=== PATIENT | female | born 1975 | race Caucasian/White ===

== ENCOUNTER → 2018-02-15 | Outpatient (CLI) | payer OTHER ==
[2018-02-15 20:21] LABS: BASO # 0.2 10^3/uL (0.0-0.2); BASO % 1.7 % (0.0-1.0); EOS # 0.2 10^3/uL (0.0-0.50); EOS % 2.2 % (0.0-3.0); HEMATOCRIT 35.9 % (36.0-47.0); HEMOGLOBIN 10.9 g/dl (12.0-15.5); IMMATURE GRANULOCYTE % 0.3 % (0-3.0); LYMPH # 2.5 10^3/uL (1.5-4.5); LYMPH % 23.8 % (24.0-44.0); MEAN CORPUSCULAR HEMOGLOBIN 25.8 pg (27.0-33.0); MEAN CORPUSCULAR HGB CONC 30.4 g/dl (32.0-36.5); MEAN CORPUSCULAR VOLUME 85.1 fl (80.0-96.0); MONO # 0.7 10^3/uL (0.0-0.8); MONO % 6.8 % (0.0-5.0); NEUTROPHILS # 6.9 10^3/uL (1.8-7.7); NEUTROPHILS % 65.2 % (36.0-66.0); PLATELET COUNT, AUTOMATED 316 10^3/uL (150-450); RED BLOOD COUNT 4.22 10^6/uL (4.00-5.40); RED CELL DISTRIBUTION WIDTH 16.2 % (11.5-14.5); WHITE BLOOD COUNT 10.5 10^3/uL (4.0-10.0)
[2018-02-15 20:59] LABS: ALBUMIN 3.8 GM/DL (3.2-5.2); ALBUMIN/GLOBULIN RATIO 0.84 (1.00-1.93); ALKALINE PHOSPHATASE 92 U/L (45-117); ALT/SGPT 35 U/L (12-78); ANION GAP 5 MEQ/L (8-16); AST/SGOT 25 U/L (7-37); BILIRUBIN,TOTAL 0.2 MG/DL (0.2-1.0); BLOOD UREA NITROGEN 14 MG/DL (7-18); CALCIUM LEVEL 9.1 MG/DL (8.5-10.1); CARBON DIOXIDE LEVEL 29 MEQ/L (21-32); CHLORIDE LEVEL 102 MEQ/L (98-107); CREATININE FOR GFR 0.78 MG/DL (0.55-1.30); GLOMERULAR FILTRATION RATE > 60.0 (>58); GLUCOSE, FASTING 254 MG/DL (70-100); POTASSIUM SERUM 4.9 MEQ/L (3.5-5.1); SODIUM LEVEL 136 MEQ/L (136-145); TOTAL PROTEIN 8.3 GM/DL (6.4-8.2)
== END ==
LOC: M WUC 16:14
DX: E10.9 Type 1 diabetes mellitus without complications (principal)
CPT/HCPCS: 80053

== ENCOUNTER 2018-07-12 14:48 | Emergency (ER) | payer OTHER | END 2018-07-12 16:43 | disposition home or self-care (01) | LOC: M ED 14:48 | DX: Z76.0 Encounter for issue of repeat prescription (principal); E11.9 Type 2 diabetes mellitus without complications; F33.9 Major depressive disorder, recurrent, unspecified; F17.200 Nicotine dependence, unspecified, uncomplicated; Z79.4 Long term (current) use of insulin; Z79.899 Other long term (current) drug therapy | CPT/HCPCS: 99282 ==

== ENCOUNTER 2018-08-12 16:21 | Emergency (ER) | payer OTHER ==
[2018-08-12 17:21] LABS: BASO # 0.1 10^3/uL (0.0-0.2); BASO % 0.9 % (0.0-1.0); EOS # 0.1 10^3/uL (0.0-0.50); EOS % 0.5 % (0.0-3.0); HEMATOCRIT 32.1 % (36.0-47.0); IMMATURE GRANULOCYTE % 0.3 % (0-3.0); LYMPH # 1.3 10^3/uL (1.5-4.5); MEAN CORPUSCULAR HEMOGLOBIN 25.4 pg (27.0-33.0); MEAN CORPUSCULAR HGB CONC 31.2 g/dl (32.0-36.5); MEAN CORPUSCULAR VOLUME 81.5 fl (80.0-96.0); MONO # 0.5 10^3/uL (0.0-0.8); MONO % 4.5 % (0.0-5.0); NEUTROPHILS # 9.7 10^3/uL (1.8-7.7); NEUTROPHILS % 82.8 % (36.0-66.0); PLATELET COUNT, AUTOMATED 343 10^3/uL (150-450); RED BLOOD COUNT 3.94 10^6/uL (4.00-5.40); RED CELL DISTRIBUTION WIDTH 15.8 % (11.5-14.5); WHITE BLOOD COUNT 11.7 10^3/uL (4.0-10.0)
[2018-08-12 17:39] LABS: ANION GAP 8 MEQ/L (8-16); BLOOD UREA NITROGEN 14 MG/DL (7-18); CALCIUM LEVEL 8.7 MG/DL (8.5-10.1); CARBON DIOXIDE LEVEL 26 MEQ/L (21-32); CHLORIDE LEVEL 103 MEQ/L (98-107); CREATININE FOR GFR 0.83 MG/DL (0.55-1.30); GLOMERULAR FILTRATION RATE > 60.0 (>58); GLUCOSE, FASTING 257 MG/DL (70-100); POTASSIUM SERUM 4.1 MEQ/L (3.5-5.1); SODIUM LEVEL 137 MEQ/L (136-145)
[2018-08-12] MEDS: MORPHINE 4 MG/ML 1ML VIAL/SYRINGE (J2270) IV (19:03)
[2018-08-12] MEDS: KETOROLAC 30 MG/ML VIAL (J1885) IV (19:56)
[2018-08-12] MEDS: OXYCODONE/APAP 5MG/325MG(BULK FOR ED) 1 TABLET PO (20:30)
== END 2018-08-12 20:52 | disposition home or self-care (01) ==
LOC: M ED 16:21
DX: M54.5 Low back pain (principal); M47.816 Spondylosis without myelopathy or radiculopathy, lumbar region; E11.9 Type 2 diabetes mellitus without complications; Z79.899 Other long term (current) drug therapy; Z79.4 Long term (current) use of insulin
CPT/HCPCS: J2270

== ENCOUNTER → 2018-08-13 | Outpatient (REF) | payer OTHER | LOC: M LAB REF 09:56 | DX: N39.0 Urinary tract infection, site not specified (principal) | CPT/HCPCS: 87088; 87186 ==

== ENCOUNTER 2018-08-17 16:27 | Emergency (ER) | payer OTHER ==
[2018-08-17] MEDS: KETOROLAC 30 MG/ML VIAL (J1885) IV (18:28)
[2018-08-17] MEDS: LORazepam 2 MG/ML VIAL (J2060) IV (18:28)
[2018-08-17] MEDS: LIDOCAINE 5% (LIDODERM) PATCH TD (18:28)
[2018-08-17 18:34] LABS: BASO # 0.1 10^3/uL (0.0-0.2); EOS # 0.2 10^3/uL (0.0-0.50); EOS % 1.3 % (0.0-3.0); HEMATOCRIT 34.2 % (36.0-47.0); HEMOGLOBIN 10.5 g/dl (12.0-15.5); IMMATURE GRANULOCYTE % 0.4 % (0-3.0); LYMPH # 1.7 10^3/uL (1.5-4.5); LYMPH % 15.2 % (24.0-44.0); MEAN CORPUSCULAR HEMOGLOBIN 25.1 pg (27.0-33.0); MEAN CORPUSCULAR HGB CONC 30.7 g/dl (32.0-36.5); MEAN CORPUSCULAR VOLUME 81.8 fl (80.0-96.0); MONO # 0.7 10^3/uL (0.0-0.8); MONO % 6.2 % (0.0-5.0); NEUTROPHILS # 8.5 10^3/uL (1.8-7.7); NEUTROPHILS % 75.9 % (36.0-66.0); PLATELET COUNT, AUTOMATED 300 10^3/uL (150-450); RED BLOOD COUNT 4.18 10^6/uL (4.00-5.40); RED CELL DISTRIBUTION WIDTH 16.1 % (11.5-14.5); WHITE BLOOD COUNT 11.2 10^3/uL (4.0-10.0)
[2018-08-17 19:10] LABS: ANION GAP 11 MEQ/L (8-16); BLOOD UREA NITROGEN 17 MG/DL (7-18); C REACTIVE PROTEIN QUANTITATIV < 0.30 MG/DL (0.00-0.30); CARBON DIOXIDE LEVEL 27 MEQ/L (21-32); CHLORIDE LEVEL 100 MEQ/L (98-107); CREATININE FOR GFR 0.77 MG/DL (0.55-1.30); GLOMERULAR FILTRATION RATE > 60.0 (>58); GLUCOSE, FASTING 316 MG/DL (70-100); POTASSIUM SERUM 4.1 MEQ/L (3.5-5.1); SODIUM LEVEL 138 MEQ/L (136-145)
[2018-08-17 20:34] LABS: ERYTHROCYTE SEDIMENTATION RATE 39 mm/hr (0-20)
[2018-08-17] MEDS: **NOTE PATIENT COMMENT** MISC XX (21:00)
[2018-08-17 23:14] LABS: BEDSIDE GLUCOSE 298 MG/DL (70-105)
[2018-08-17] MEDS ORDERED: MORPHINE 2 MG/ML 1ML SYRINGE (J2270) As Ordered (23:20)
[2018-08-17] MEDS: HumaLOG INSULIN (NovoLOG) PER UNIT SC (23:23)
[2018-08-17] MEDS: MORPHINE 2 MG/ML 1ML SYRINGE (J2270) IM (23:23)
[2018-08-18] MEDS: MORPHINE 4 MG/ML 1ML VIAL/SYRINGE (J2270) IV (00:24)
[2018-08-18] MEDS: NORCO 5/325MG TABLET (BULK FOR ED) PO (02:15)
== END 2018-08-18 02:25 | disposition home or self-care (01) ==
LOC: M ED 08-18 02:25
DX: M51.36 Other intervertebral disc degeneration, lumbar region (principal); M54.16 Radiculopathy, lumbar region; E11.9 Type 2 diabetes mellitus without complications; Z79.899 Other long term (current) drug therapy; Z79.4 Long term (current) use of insulin; F17.210 Nicotine dependence, cigarettes, uncomplicated
CPT/HCPCS: J2270

== ENCOUNTER 2018-08-20 10:55 | Emergency (ER) | payer OTHER ==
[2018-08-20] MEDS: MORPHINE 10 MG/ML 1ML VIAL (J2270) IM (12:17)
== END 2018-08-20 12:58 | disposition home or self-care (01) ==
LOC: M ED 10:55
DX: M51.36 Other intervertebral disc degeneration, lumbar region (principal); M54.16 Radiculopathy, lumbar region; E11.9 Type 2 diabetes mellitus without complications; Z79.899 Other long term (current) drug therapy; Z79.4 Long term (current) use of insulin; F17.210 Nicotine dependence, cigarettes, uncomplicated
CPT/HCPCS: J2270

== ENCOUNTER 2018-08-23 17:59 | Emergency (ER) | payer OTHER ==
[2018-08-23] MEDS: diazePAM 10 MG TAB PO (18:30)
[2018-08-23] MEDS: MORPHINE 10 MG/ML 1ML VIAL (J2270) IM (19:10)
== END 2018-08-23 20:17 | disposition home or self-care (01) ==
LOC: M ED 17:59
DX: M51.37 Other intervertebral disc degeneration, lumbosacral region (principal); M54.17 Radiculopathy, lumbosacral region; E11.9 Type 2 diabetes mellitus without complications; Z79.899 Other long term (current) drug therapy; Z79.4 Long term (current) use of insulin
CPT/HCPCS: J2270

== ENCOUNTER → 2019-02-06 | Outpatient (REF) | payer OTHER ==
[~2019-02-06] MED LIST: /INSUREG; AMBI10TA; AMBI10TA OR; AMBI5TAB OR; BUPR10TASR PO; CYCL5TAB PO; INSU; INSULANT SC; INSULIN PUMP SQ; LISI5TAB OR; MACR100C42 PO; MAGN500T2 OR; MOBI4TAB PO; NEUR300C PO; NICO21DI4; NICO21DI4 TD; NOVOLOG100 MG/ML SC; OXYC1TAB23 PO; PERC5TAB12 PO; PROZ20CA; PROZ20CA OR; PROZ40CA OR; REME15TA PO; TOUJ1.2I SC; TOUJ1.2I SQ; TYLENOL ES; VALI5TAB PO; insulin
[2019-02-06 18:26] LABS: APPEARANCE, URINE CLEAR (CLEAR); BACTERIA, URINE AUTO NEGATIVE (NEGATIVE); BILIRUBIN, URINE AUTO NEGATIVE (NEGATIVE); BLOOD, URINE BLOOD NEGATIVE (NEGATIVE); COLOR, URINE STRAW (YELLOW); GLUCOSE, URINE (UA) AUTO 3+ mg/dL (NEGATIVE); KETONE, URINE AUTO NEGATIVE (NEGATIVE); LEUKOCYTE ESTERASE, URINE AUTO NEGATIVE (NEGATIVE); NITRITE, URINE AUTO NEGATIVE (NEGATIVE); PROTEIN, URINE AUTO NEGATIVE (NEGATIVE); RBC, URINE AUTO 2 /HPF (0-3); SPECIFIC GRAVITY URINE AUTO 1.018 (1.002-1.035); SQUAMOUS EPITHELIAL CELL UR AU 1 /HPF (0-6); UROBILINOGEN, URINE AUTO 0.2 mg/dL (0.0-2.0); WBC, URINE AUTO 0 /HPF (0-3)
== END ==
LOC: M LAB REF 17:47
PROVIDERS: ATTEND Physician Assistant
DX: Z01.818 Encounter for other preprocedural examination (principal)

== ENCOUNTER 2019-12-24 16:09 | Emergency (ER) | payer OTHER ==
[~2019-12-24] VITALS: Ht 162.6 cm; Wt 70.1 kg
[~2019-12-24 16:09] MED LIST changes: -/INSUREG; +NOVO1INJ2
[2019-12-24] MEDS ORDERED: NORCO, ANEXSIA 5/325MG TABLET (HYDROcodone/ACETAMINOPHEN) PO ONE (19:45)
[2019-12-24] MEDS ORDERED: LIDOCAINE 4% CREAM 5GM (LMX4) TOP ONE (19:45)
[2019-12-24 19:48] VITALS: BP 181/84
[2019-12-24] MEDS ORDERED: NORC1TAB7 PO (19:49)
[2019-12-24] MEDS ORDERED: ANEC4CRE3 TOP (19:49)
[2019-12-24] MEDS ORDERED: BIOF4GEL4 TOP (19:49)
--- NOTE | 2019-12-24 20:20 | REP ---
LEFT SHOULDER, THREE VIEWS: There is no evidence of an acute fracture, dislocation or intrinsic bone disease. IMPRESSION: No fracture or dislocation. Electronically Signed by Giuliano Garcia MD 12/25/2019 05:04 P
== END 2019-12-24 20:02 | disposition home or self-care (01) ==
LOC: M ED 16:09
DX: S49.92XA Unspecified injury of left shoulder and upper arm, initial encounter (principal); M25.512 Pain in left shoulder; W01.10XA Fall on same level from slipping, tripping and stumbling with subsequent striking against unspecified object, initial encounter; Y92.410 Unspecified street and highway as the place of occurrence of the external cause; E11.9 Type 2 diabetes mellitus without complications; M54.9 Dorsalgia, unspecified; Z79.899 Other long term (current) drug therapy; Z79.4 Long term (current) use of insulin

== ENCOUNTER 2020-02-28 00:17 | Emergency (ER) | payer OTHER ==
[~2020-02-28] VITALS: Ht 162.6 cm; Wt 68.2 kg
[2020-02-28 00:17] VITALS: BP 157/71
[~2020-02-28 00:17] MED LIST changes: +ANEC4CRE3 TOP; +BIOF4GEL4 TOP; +NORC1TAB7 PO
[2020-02-28] MEDS ORDERED: METH750T2 PO (00:23)
[2020-02-28] MEDS ORDERED: LIDOCAINE 5% (LIDODERM) PATCH TD ONE (00:45)
[2020-02-28] MEDS ORDERED: KETOROLAC 60 MG/2 ML VIAL (J1885) IM ONE (00:45)
[2020-02-28] MEDS ORDERED: LIDO5DIS41 TOP (01:05)
[2020-02-28] MEDS ORDERED: **NOTE PATIENT COMMENT** MISC XX SCH (21:00)
== END 2020-02-28 01:09 | disposition home or self-care (01) ==
LOC: M ED 00:17
DX: M54.5 Low back pain (principal); G89.29 Other chronic pain; E10.9 Type 1 diabetes mellitus without complications; F17.200 Nicotine dependence, unspecified, uncomplicated; Z79.899 Other long term (current) drug therapy
CPT/HCPCS: 96372; 99282; J1885

== ENCOUNTER → 2020-03-16 | Outpatient (REF) | payer OTHER ==
[~2020-03-16] MED LIST changes: +LIDO5DIS41 TOP; +METH750T2 PO
[2020-03-16 15:55] LABS: CREATININE, URINE 68.2 MG/DL
== END ==
LOC: M LAB REF 14:54
PROVIDERS: ATTEND Nurse Practitioner Family
DX: E10.65 Type 1 diabetes mellitus with hyperglycemia (principal)

== ENCOUNTER 2020-04-28 23:24 | Emergency (ER) | payer OTHER ==
[~2020-04-28] VITALS: Ht 162.6 cm; Wt 68.2 kg
[2020-04-29 00:31] LABS: BASO # 0.1 10^3/uL (0.0-0.2); BASO % 1.9 % (0.0-1.0); EOS # 0.1 10^3/uL (0.0-0.5); HEMATOCRIT 32.1 % (36.0-47.0); HEMOGLOBIN 9.3 g/dl (12.0-15.5); LYMPH # 1.5 10^3/uL (1.5-5.0); LYMPH % 21.7 % (24.0-44.0); MEAN CORPUSCULAR HEMOGLOBIN 23.4 pg (27.0-33.0); MEAN CORPUSCULAR VOLUME 80.7 fl (80.0-96.0); MONO # 0.5 10^3/uL (0.0-0.8); MONO % 6.9 % (0.0-5.0); NEUTROPHILS # 4.6 10^3/uL (1.5-8.5); NEUTROPHILS % 67.4 % (36.0-66.0); PLATELET COUNT, AUTOMATED 394 10^3/uL (150-450); RED BLOOD COUNT 3.98 10^6/uL (4.00-5.40); WHITE BLOOD COUNT 6.9 10^3/uL (4.0-10.0)
[2020-04-29 00:59] LABS: ALBUMIN 3.2 GM/DL (3.2-5.2); ALT/SGPT 31 U/L (12-78); BILIRUBIN,DIRECT < 0.1 MG/DL (0.0-0.2); BILIRUBIN,TOTAL 0.1 MG/DL (0.2-1.0); BLOOD UREA NITROGEN 10 MG/DL (7-18); CALCIUM LEVEL 8.6 MG/DL (8.5-10.1); CARBON DIOXIDE LEVEL 24 MEQ/L (21-32); CHLORIDE LEVEL 110 MEQ/L (98-107); CREATININE FOR GFR 0.95 MG/DL (0.55-1.30); FREE T4 0.75 NG/DL (0.76-1.46); GLOMERULAR FILTRATION RATE > 60.0 (>58); GLUCOSE, FASTING 62 MG/DL (70-100); POTASSIUM SERUM 3.8 MEQ/L (3.5-5.1); SODIUM LEVEL 141 MEQ/L (136-145); TOTAL PROTEIN 7.9 GM/DL (6.4-8.2)
[2020-04-29] MEDS ORDERED: DEXTROSE 50% 50 ML SYRINGE IV STA (01:13)
[2020-04-29] MEDS ORDERED: DEXTROSE 50% 50 ML VIAL As Ordered ONE (01:14)
[2020-04-29 05:00] VITALS: BP 165/77
--- NOTE | 2020-04-29 07:38 | ECGEPIP ---
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
--- NOTE | 2020-04-29 09:49 | REP ---
CHEST, SINGLE VIEW: There is no evidence of acute infiltrate. No pleural effusion is seen. The heart is normal in size. The mediastinal silhouette is unremarkable. The visualized osseous structures are intact. IMPRESSION: No acute pulmonary disease. Electronically Signed by Giuliano Garcia MD 04/30/2020 10:28 A
== END 2020-04-29 05:19 | disposition home or self-care (01) ==
LOC: M ED 23:24 → EDBD 23:24 → M ED 04-29 05:19
DX: E11.649 Type 2 diabetes mellitus with hypoglycemia without coma (principal); F10.10 Alcohol abuse, uncomplicated; M54.9 Dorsalgia, unspecified; G89.29 Other chronic pain; F32.9 Major depressive disorder, single episode, unspecified; Z79.899 Other long term (current) drug therapy; Z79.4 Long term (current) use of insulin

== ENCOUNTER 2020-10-06 17:18 | Emergency (ER) | payer OTHER ==
[~2020-10-06] VITALS: Ht 162.6 cm; Wt 68.2 kg
[2020-10-06] MEDS ORDERED: MIRTAZAPINE (17:29)
[2020-10-06] MEDS ORDERED: METH1TAB40 PO (17:29)
[2020-10-06] MEDS ORDERED: GABA-843 (17:29)
[2020-10-06] MEDS ORDERED: BD I (17:29)
[2020-10-06] MEDS ORDERED: HYDR-3713 (17:29)
[2020-10-06] MEDS ORDERED: GABA600T4 PO (17:29)
[2020-10-06] MEDS ORDERED: BASA100I SC (17:29)
[2020-10-06] MEDS ORDERED: FLUO40CA PO (17:29)
[2020-10-06] MEDS ORDERED: TIZA4TAB4 (17:29)
[2020-10-06] MEDS ORDERED: MORPHINE 4 MG/ML 1ML VIAL/SYRINGE (J2270) IV ONE ×2 (17:45→19:00)
[2020-10-06 18:02] LABS: BASO # 0.2 10^3/uL (0.0-0.2); BASO % 1.7 % (0.0-1.0); EOS # 0.2 10^3/uL (0.0-0.5); EOS % 2.6 % (0.0-3.0); HEMATOCRIT 28.6 % (36.0-47.0); LYMPH # 1.8 10^3/uL (1.5-5.0); LYMPH % 20.1 % (24.0-44.0); MEAN CORPUSCULAR HEMOGLOBIN 21.6 pg (27.0-33.0); MEAN CORPUSCULAR VOLUME 77.3 fl (80.0-96.0); MONO # 0.5 10^3/uL (0.0-0.8); MONO % 5.7 % (0.0-5.0); NEUTROPHILS # 6.1 10^3/uL (1.5-8.5); NEUTROPHILS % 69.6 % (36.0-66.0); PLATELET COUNT, AUTOMATED 517 10^3/uL (150-450); WHITE BLOOD COUNT 8.7 10^3/uL (4.0-10.0)
[2020-10-06 18:26] LABS: BLOOD UREA NITROGEN 9 MG/DL (7-18); C REACTIVE PROTEIN QUANTITATIV 0.85 MG/DL (0.00-0.30); CALCIUM LEVEL 8.7 MG/DL (8.5-10.1); CARBON DIOXIDE LEVEL 25 MEQ/L (21-32); CHLORIDE LEVEL 102 MEQ/L (98-107); CREATININE FOR GFR 0.79 MG/DL (0.55-1.30); GLOMERULAR FILTRATION RATE > 60.0 (>58); GLUCOSE, FASTING 223 MG/DL (70-100); SODIUM LEVEL 135 MEQ/L (136-145)
[2020-10-06 18:27] LABS: ERYTHROCYTE SEDIMENTATION RATE 70 mm/hr (0-20)
[2020-10-06] MEDS ORDERED: PROHANCE 279.3MG/ML 15ML VIAL As Ordered ONE (19:50)
--- NOTE | 2020-10-06 21:17 | REPVR ---
PROCEDURE INFORMATION: Exam: MR Lumbar Spine Without and With Contrast. Exam date and time: 10/06/2020 8:02 PM Age: 45 years old Clinical indication: Low back pain; Prior surgery; Surgery date: <1 month; Surgery type: L5-s1 fusion; Additional info: Post op pain and radiculopathy TECHNIQUE: Imaging protocol: Multiplanar magnetic resonance images of the lumbar spine without and with intravenous contrast. Contrast material: PROHANCE; Contrast volume: 13 ml; Contrast route: INTRAVENOUS (IV); COMPARISON: MRI-Spine, L.S. without con 08/17/2018 11:49 PM FINDINGS: Vertebrae: In comparison the prior examination there has been hardware fusion at the L5-S1 level. Grade 2 anterior spondylolisthesis of L5 on S1 due to bilateral L5 pars defects is again noted. Spinal cord: The conus medullaris is normal appearance of the T12-L1 level. L1-L2: No significant disc disease. No significant spinal canal stenosis. No neural foraminal stenosis. L2-L3: No significant disc disease. No significant spinal canal stenosis. No neural foraminal stenosis. L3-L4: No significant disc disease. No significant spinal canal stenosis. No neural foraminal stenosis. L4-L5: There has been posterior decompression of the spinal canal with wide laminectomies and partial facetectomies. There is no spinal canal stenosis or neural foraminal narrowing. L5-S1: Spinal fusion is been performed at this level with a probable discal fusion device to the left of midline. Posterior fusion hardware is apparent with bilateral pedicle screws. There has been posterior decompression of the spinal canal with wide laminectomy and partial facetectomies. There is no spinal canal stenosis or neural foraminal narrowing. Bone graft material was obtained from the right iliac bone. There is a T2 hyperintensity within the ventral spinal canal just to the right of midline measuring 1.3 cm AP by 0.8 cm in width, series 701, image 1 frame 2. There is a somewhat similar appearing lesion noted on the prior study in relatively similar position series 901, image 7 measuring 1.2 cm by 0.8 cm which could represent a disc fragment. Soft tissues: There is a typical subcutaneous seroma measuring approximately 8 cm cc by 2.3 cm AP by 4.6 cm in width, blood products are seen within the seroma in. There is also fluid surrounding the pedicle screws course through the soft tissues. Diffuse edema is seen within the soft tissues. There is a 2nd seroma associated with the decompression of the posterior spinal canal extending from L3-L4 through L5-S1 levels measuring approximately 5 cm cc by 2.5 cm AP. There is some enhancement of the margins of the fluid collections. IMPRESSION: There has been posterior spinal fusion with hardware at the L5-S1 level with a probable disc space fusion device placed to the left of midline. No spinal canal stenosis or neural foraminal narrowing is apparent. Typical postoperative fluid collections are detected. Please see above details at the L5-S1 level. Electronically signed by: Laina Mata On 10/06/2020 21:17:29 PM
[2020-10-06] MEDS ORDERED: PERC5TAB12 PO (21:44)
[2020-10-06] MEDS ORDERED: PERCOCET 5MG/325MG TAB PO ONE (21:45)
[2020-10-06 21:57] VITALS: BP 180/87
== END 2020-10-06 21:58 | disposition home or self-care (01) ==
LOC: M ED 17:18
DX: G89.18 Other acute postprocedural pain (principal); M96.842 Postprocedural seroma of a musculoskeletal structure following a musculoskeletal system procedure; Z98.1 Arthrodesis status; M54.41 Lumbago with sciatica, right side; M54.42 Lumbago with sciatica, left side; D64.9 Anemia, unspecified; F17.200 Nicotine dependence, unspecified, uncomplicated; Z79.899 Other long term (current) drug therapy
CPT/HCPCS: 72158; 80048; 85025; 85652; 86140; 96374; 96376; 99284; A9576; J2270

== ENCOUNTER 2020-10-08 12:06 | Inpatient (IN) | payer OTHER ==
[~2020-10-08] VITALS: Ht 162.6 cm; Wt 62.0 kg
[~2020-10-08 12:06] MED LIST changes: +BASA100I SC; +BD I; +FLUO40CA PO; +GABA-843; +GABA600T4 PO; +HYDR-3713; +METH1TAB40 PO; +MIRTAZAPINE; +TIZA4TAB4
[2020-10-08] MEDS ORDERED: ONDANSETRON 4MG/2ML VIAL IV ONE ×2 (13:00→14:15)
[2020-10-08] MEDS ORDERED: METH4PACK PO (13:02)
[2020-10-08 13:04] LABS: BASO # 0.1 10^3/uL (0.0-0.2); BASO % 0.7 % (0.0-1.0); HEMATOCRIT 29.1 % (36.0-47.0); HEMOGLOBIN 8.2 g/dl (12.0-15.5); LYMPH # 1.1 10^3/uL (1.5-5.0); LYMPH % 8.2 % (24.0-44.0); MEAN CORPUSCULAR HEMOGLOBIN 21.7 pg (27.0-33.0); MEAN CORPUSCULAR HGB CONC 28.2 g/dl (32.0-36.5); MONO # 0.7 10^3/uL (0.0-0.8); MONO % 5.1 % (0.0-5.0); NEUTROPHILS % 85.3 % (36.0-66.0); PLATELET COUNT, AUTOMATED 500 10^3/uL (150-450); RED BLOOD COUNT 3.78 10^6/uL (4.00-5.40); WHITE BLOOD COUNT 12.8 10^3/uL (4.0-10.0)
[2020-10-08 13:05] LABS: VENOUS BASE EXCESS -5.4 (-2.0-2.0); VENOUS HCO3 19.6 MEQ/L (23.0-27.0); VENOUS O2 SATURATION 49.3 % (60.0-80.0); VENOUS PARTIAL PRESSURE CO2 36.1 mmHg (38.0-50.0); VENOUS PARTIAL PRESSURE O2 29.3 mmHg (30.0-50.0); VENOUS PH 7.353 UNITS (7.330-7.430); VENOUS STANDARD HCO3 19.3 MEQ/L; VENOUS TOTAL CO2 20.7 MEQ/L (24.0-28.0)
[2020-10-08] MEDS ORDERED: NS 1,000 ML IV ONE (13:15)
[2020-10-08] MEDS ORDERED: MORPHINE 4 MG/ML 1ML VIAL/SYRINGE (J2270) IV ONE (13:15)
[2020-10-08 13:25] LABS: OSMOLALITY SERUM 307 MOSM/KG (275-295)
[2020-10-08 13:42] LABS: ALBUMIN 3.4 GM/DL (3.2-5.2); ALT/SGPT 14 U/L (12-78); BILIRUBIN,DIRECT < 0.1 MG/DL (0.0-0.2); BILIRUBIN,TOTAL 0.4 MG/DL (0.2-1.0); BLOOD UREA NITROGEN 17 MG/DL (7-18); CALCIUM LEVEL 9.4 MG/DL (8.5-10.1); CARBON DIOXIDE LEVEL 21 MEQ/L (21-32); CHLORIDE LEVEL 97 MEQ/L (98-107); GLOMERULAR FILTRATION RATE > 60.0 (>58); GLUCOSE, FASTING 443 MG/DL (70-100); HCG, SERUM QUANTITATIVE < 1.0 MIU/ML; LIPASE 33 U/L (73-393); POTASSIUM SERUM 4.3 MEQ/L (3.5-5.1); SODIUM LEVEL 133 MEQ/L (136-145); TOTAL PROTEIN 8.5 GM/DL (6.4-8.2)
[2020-10-08 13:56] LABS: HEMOGLOBIN A1c 7.1 %
[2020-10-08] MEDS ORDERED: HumuLIN R (REGULAR) INSULIN (NovoLIN R) **100U/ML** PER UNIT IV ONE (14:00)
--- NOTE | 2020-10-08 14:32 | ECGEPIP ---
[facility] - ED Test Date: 2020-10-08 Pat Name: CORNELIO MESA Department: Room: - Gender: Female Environmental Intern: KVNG : 1975 Requested By: LILIANA Diana Order Number: [id number] Reading MD: Diane Colón Measurements Intervals [place] Rate: 66 P: 33 MA: 137 QRS: 49 QRSD: 82 T: 50 QT: 429 QTc: 451 Interpretive Statements SINUS RHYTHM WITH MARKED SINUS ARRHYTHMIA DECREASED RATE 04/28/20 Electronically Signed on 10-08-2020 14:32:30 EST by Diane Colón
[2020-10-08] MEDS: GASTROGRAFIN SOLUTION 30ML PO SCH ×2 (15:06→15:35)
[2020-10-08] MEDS ORDERED: PROMETHAZINE INJ 25 MG/ML VIAL (J2550) IV ONE (15:15)
[2020-10-08] MEDS ORDERED: ISOVUE-370 76% 100ML VIAL As Ordered ONE (16:39)
--- NOTE | 2020-10-08 17:11 | REP ---
INDICATION: abd pain, vomiting. COMPARISON: None TECHNIQUE: 100 cc Isovue 370. A small amount of oral bowel preparatory contrast was also administered. FINDINGS: In the left lung base lower lobe there is a pleural based 1.4 cm sized irregular density from which arises a thick band like opacity continuing inferiorly into the lateral basal segment of the left lower lobe. There are no pleural or pericardial effusions. The liver, gallbladder, spleen, adrenal glands, and kidneys are within normal limits. The pancreas appears atrophic. The abdominal aorta and para-aortic regions are within normal limits. The bowel loops and the mesenteries are within normal limits. The appendix is well visualized and is within normal limits. There is no free fluid or free air. There is no evidence of a mass or adenopathy. There is a small umbilical hernia through which only mesentery protrudes. Bone window technique throughout the examination shows the osseous structures to be within normal limits. The patient is status post L5-S1 fusion with transpedicular screws seen bilaterally at both L5 and S1 affixing a grade 3 L5 upon S1 spondylolisthesis. A disc spacer is in place at that level and there is endplate irregularity seen involving both L5 and S1. IMPRESSION: 1. Irregular pleural based density seen in the left lower lobe as described above. According to the revised Fleischner society criteria CT examination of the chest is recommended. 2. The pancreas is atrophic. The etiology is uncertain. Is this patient diabetic? 3. There is no evidence of acute intraabdominal or intrapelvic disease. 4. Chronic osseous changes as described above. <Electronically signed by Lewis Martino > 10/08/20 0745
[2020-10-08] MEDS ORDERED: KETOROLAC 30 MG/ML 1ML VIAL IV ONE (17:30)
[2020-10-08] MEDS ORDERED: METOCLOPRAMIDE INJ 10MG/2ML VIAL (J2765 PER 1) IV ONE (17:45)
[2020-10-08] MEDS ORDERED: CHAN1PAK13 PO (17:56)
[2020-10-08] MEDS ORDERED: TIZA4TAB4 PO (17:56)
[2020-10-08] MEDS ORDERED: ADME100I SC (17:56)
[2020-10-08] MEDS ORDERED: ONDANSETRON 4MG/2ML VIAL IV PRN (18:30)
[2020-10-08] MEDS ORDERED: METOCLOPRAMIDE INJ 10MG/2ML VIAL (J2765 PER 1) IV PRN (18:30)
[2020-10-08] MEDS ORDERED: DEXTROSE 50% 50 ML SYRINGE IV PRN (18:45)
[2020-10-08] MEDS ORDERED: GLUCAGON INJ 1MG VIAL SC PRN (18:45)
[2020-10-08] MEDS ORDERED: GLUCOSE 4GM CHEW TABLET PO PRN (18:45)
[2020-10-08] MEDS: HumaLOG INSULIN (NovoLOG) PER UNIT SC SCH ×2 (18:58→23:46)
[2020-10-08] MEDS: NS 1,000 ML IV SCH (18:59)
[2020-10-08 19:05] LABS: MAGNESIUM LEVEL 1.8 MG/DL (1.8-2.4); PHOSPHORUS LEVEL 3.3 MG/DL (2.5-4.9)
--- NOTE | 2020-10-08 19:18 | HPEPDOC ---
[facility] Medical History & Physical Date of Admission Oct 08, 2020 Date of Service: Oct 08, 2020 Attending Physician: Ana Gastelum MD History and Physical CHIEF COMPLAINT: Nausea, vomiting HISTORY OF PRESENT ILLNESS: Patient is a 45-year-old female with past medical history of diabetes mellitus type 1, tobacco use, autoimmune thyroiditis, depression, anxiety, chronic pain in the lower back who presented to [facility] emergency room after sudde onset of intractable vomiting since this morning. The patient states she had a normal dinner last evening and woke up this morning at 7 AM vomiting profusely. She denies any bloody vomitus but states at home she vomited over 20 times. She has no known gastroparesis, has not had recent medication changes, and denies sick contacts, diarrhea, chest pain, fevers, abdominal pain. She has associated lightheadedness, dizziness, weakness since this morning. She states her vomiting continued and she came to the emergency room to be further evaluated. She has had vomiting similar to this in the past but not this severe. In the emergency room, vital signs showed blood pressure 190 systolic. Abnormal labs included sodium 133; however, blood sugar was elevated at 443 indicating pseudohyponatremia. Hemoglobin A1c 7.1. AG 15, VBG pH 7.353, PCO2 36.1, ketone positive. CT of the abdomen and pelvis showed questionable linear opacity in the left lower lung adjusting further study with CT of the chest, atrophic pancreas. WBC 12.8, H&H 8.2/29.1, beta hCG negative. The patient was given 8 mg of Zofran, 25 mg of Phenergan and later 10 mg of Reglan but the patient states she's continues to have nausea with vomiting. The case was discussed in detail with Dr. Krueger, gastroenterology, who highly suspects gastroparesis in this patient. Patient was admitted for further treatment of intractable vomiting likely 2/2 to gastroparesis, ? PNA LLL. REVIEW OF SYSTEMS: CONSTITUTIONAL: Denies unexplained weight gain or weight loss, fever, night sweats EYES: Denies eye drainage, eye pain, visual changes, dry/irritated eye EARS, NOSE, MOUTH, THROAT: Denies difficulty hearing, ringing in ears, mouth sores, loose teeth, sore throat, facial numbness or pain NECK: Denies swollen glands CARDIOVASCULAR: Denies irregular heartbeat, racing heart, chest pains, swelling of feet or legs, pain in legs with walking RESPIRATORY: Denies night sweats, wheezing, sputum production, oxygen at home, coughing up blood, cough lasting > 1 month GASTROINTESTINAL: Denies abdominal pain, constipation, bloody stool, diarrhea GENITOURINARY: Denies painful urination, bloody urine, frequent urination, urgency, leaking urine, impotence MUSCULOSKELETAL: Denies joint pain, muscle pain, leg swelling INTEGUMENTARY: Denies rash, itching, new skin lesion, change in existing skin lesion, hair loss or increase, breast changes. NEUROLOGICAL: Denies difficulty walking, numbness or tingling PSYCHIATRIC: Denies recurrent bad thoughts, mood swings, hallucinations PAST MEDICAL HISTORY: 1. Diabetes mellitus type 1 2. Tobacco use 3. Autoimmune thyroiditis 4. Depression 5. Anxiety 6. Chronic lower back pain 7. Muscle spasms PAST SURGICAL HISTORY: 1. L5, S1 back fusion surgery with dora placement, spacer placed Aug 2020 2. C section x 3 FAMILY HISTORY: Father: Healthy. Alive Mother: Breast cancer, COPD. ALive SOCIAL HISTORY: Smoker for 32 years, 6 cig/day- has cut down. Denies alcohol or drug use. Lives with daughter. HCP daughter Carlos Byrd. PCP Mary García, Medical Instructor: Dr. Boyle. Full Code ALLERGIES: Please see below. HOME MEDICATIONS: Please see below. PHYSICAL EXAMINATION: VS: Please see below CONSTITUTIONAL: Appears uncomfortable, in mod distress, AAO x 3 EYES: PERRLA, EOM intact HENT, MOUTH: Normocephalic, atraumatic, dry mucous membranes NECK: SUPPLE, no JVD, no lymphadenopathy, no carotid bruit CV: Regular rate and rhythm, S1S2 normal, no murmurs/rubs/gallops RESPIRATORY: Clear to auscultation bilaterally, no rales/rhonchi/wheezes GI: BS positive in 4 quadrants, soft, nontender, nondistended, no rebound or guarding, no organomegaly : Deferred MUSCULOSKELETAL: Normal ROM. No cyanosis, clubbing, swelling, joint deformity, extremity edema INTEGUMENTARY: Intact, no rashes, no lesions, no erythema NEUROLOGIC: Cranial Nerves II-XII are intact, no focal deficits LABORATORY DATA: Please see below IMAGING: CT abd/pelvis: 1. Irregular pleural based density seen in the left lower lobe as described above. According to the revised Fleischner society criteria CT examination of the chest is recommended. 2. The pancreas is atrophic. The etiology is uncertain. Is this patient diabetic? 3. There is no evidence of acute intraabdominal or intrapelvic disease. 4. Chronic osseous changes as described above. ASSESSMENT: 45-year-old female with past medical history of diabetes mellitus type 1, tobacco use, autoimmune thyroiditis, depression, anxiety, chronic pain in the lower back admitted for further treatment of intractable vomiting likely 2/2 to gastroparesis, ? PNA LLL. PLAN: # Intractable vomiting likely 2/2 to gastroparesis vs. uncontrolled hyperglycemia -No known history of gastroparesis -Discussed case (not officially consulted) with BRAN Mae. Suggests IVFS, Reglan, zofran PRN. Also thiamine, folate and Vitamin B12 daily. -NPO for 24 hours. -If vomiting increases or worsens, can add erythromycin IV TID. -F/u daily labs and electrolytes closely -Will need gastric emptying study -C/w treatment of hyperglycemia # LLL density/opacity -WBC minimally elevated at 12.8, no respiratory symptoms -F/u CXR- if neg, stop abx (levofloxacin) # Uncontrolled hyperglycemia likely 2/2 to acute illness, ? PNA -Hx of DM type I -BS >400, VBG 7.353, ketones + but AG wnl -HbA1c 7.1, compliant with home medications -Given insulin in ER, BS improved to 200's -Started on IVFs, levemir 29 U QAM, Q6H ISS, AC/HS blood sugar checks, NPO currently #Hypertension likely 2/2 to uncontrolled vomiting, anxiety, back pain -C/w treatment above, pain regimen -Can give hydralazine PO if needed PRN # Microcytic anemia, chronic -H/H low -No s/s of bleeding -F/u iron, TIBC, ferritin. #Pseudohyponatremia 2/2 to hyperglycemia -C/w treatment above # Chronic low back pain -Recent lower back surgery -Holding all PO meds -Morphine PRN # Tobacco use -Nicotine patch # Depression/anxiety -Stable #GI px. -PPI IV #DVT px -Enoxaparin DISPOSITION: Admitted as acute inpatient. Plan is home when medically improved. Vital Signs Vital Signs Date Time Temp Pulse Resp B/P (MAP) Pulse Ox O2 Delivery O2 Flow Rate FiO2 10/08/20 17:46 97.9 16 182/81 (114) 10/08/20 17:36 76 10/08/20 13:51 100 10/08/20 12:06 Room Air Laboratory Data Labs 24H Laboratory Tests 2 10/08/20 12:13: Bedside Glucose (Misc Panel) 419H 10/08/20 12:55: Immature Granulocyte % (Auto) 0.7, Neutrophils (%) (Auto) 85.3H, Lymphocytes (%) (Auto) 8.2L, Monocytes (%) (Auto) 5.1H, Eosinophils (%) (Auto) 0.0, Basophils (%) (Auto) 0.7, Neutrophils # (Auto) 11.0H, Lymphocytes # (Auto) 1.1L, Monocytes # (Auto) 0.7, Eosinophils # (Auto) 0.0, Basophils # (Auto) 0.1, Nucleated Red Blood Cells % (auto) 0.0, Blood Gas Bicarbonate Standard 19.3, Venous Blood pH 7.353, Venous Blood Partial Pressure CO2 36.1L, Venous Blood Partial Pressure O2 29.3L, Venous Blood Total Carbon Dioxide 20.7L, Venous Blood HCO3 19.6L, Venous Blood Oxygen Saturation 49.3L, Venous Blood Base Excess -5.4L, Anion Gap 15, Glomerular Filtration Rate > 60.0, Estimated Mean Plasma Glucose 157H, Hemoglobin A1c 7.1, Osmolality 307H, Calcium Level 9.4, Total Bilirubin 0.4, Direct Bilirubin < 0.1, Aspartate Amino Transf (AST/SGOT) 8, Alanine Aminotransferase (ALT/SGPT) 14, Alkaline Phosphatase 112, Total Protein 8.5H, Albumin 3.4, Albumin/Globulin Ratio 0.7L, Lipase 33L, Human Chorionic Gonadotropin, Quant < 1.0, B-Hydroxybutyrate 42.40H 10/08/20 14:10: Bedside Glucose (Misc Panel) 388H 10/08/20 14:20: Urine Color STRAW, Urine Appearance CLEAR, Urine pH 6.0, Urine Specific [place] 1.023, Urine Protein NEGATIVE, Urine Glucose (UA) 3+H, Urine Ketones 2+H, Urine Blood 2+H, Urine Nitrite NEGATIVE, Urine Bilirubin NEGATIVE, Urine Urobilinogen 0.2, Urine Leukocyte Esterase NEGATIVE, Urine WBC (Auto) 2, Urine RBC (Auto) 13H, Urine Hyaline Casts (Auto) 0, Urine Bacteria (Auto) NEGATIVE, Urine Squamous Epithelial Cells 0, Urine Sperm (Auto) 10/08/20 16:55: Bedside Glucose (Misc Panel) 254H 10/08/20 18:17: Bedside Glucose (Misc Panel) 275H CBC/BMP Laboratory Tests 10/08/20 12:55 Home Medications Scheduled Fluoxetine Hcl (Fluoxetine HCl) 40 Mg Capsule, 40 MG PO DAILY Gabapentin (Gabapentin) 600 Mg Tablet, 600 MG PO TID Insulin Glargine,Hum.rec.anlog (Basaglar Kwikpen U-100) 100 Unit/1 Ml Insuln. pen, 29 UNITS SC DAILY Insulin Lispro (Admelog) 100 Unit/1 Ml Vial, 1 DOSE SC AC PER SLIDING SCALE Methylprednisolone (Methylprednisolone) 4 Mg Tab.ds.pk, 4 MG PO ASDIRECTED FOR 6 DAYS, STARTED 10/07 Tizanidine HCl (Tizanidine HCl) 4 Mg Tablet, 4 MG PO QID Varenicline Tartrate (Chantix) 1 Mg Tablet, 1 MG PO BID Scheduled PRN Methocarbamol (Methocarbamol) 500 Mg Tablet, 500 MG PO BID PRN for MUSCLE SPASMS Oxycodone HCl/Acetaminophen (Percocet 5-325 mg Tablet) 1 Each Tablet, 1 TAB PO Q6H PRN for PAIN Allergies Coded Allergies: No Known Allergies (Verified , 09/14/04) A-FIB/CHADSVASC A-FIB History Current/History of A-Fib/PAF?: No Current PO Anticoag Therapy: No Age/Risk Factor Scoring CHADSVASC: CHADSVASC Response (Comments) Value Age Risk Factor Age < 65 years old 0 Gender Risk Factor Female 1 Hx of CHF No 0 Hx of HTN No 0 Hx of Stroke/TIA/or VTE No 0 Hx of Diabetes Yes 1 Hx of Vascular Disease No 0 Total 2 Treatment Treatment ordered: Other Other anticoagulant ordered: Ana Solis MD Oct 08, 2020 19:18
[2020-10-08 19:49] LABS: FERRITIN 20 NG/ML (8-252); IRON (FE) 18 UG/DL (50-170); PERCENT SATURATION 4.4 % (13.2-45.0); TOTAL IRON BINDING CAPACITY 407 UG/DL (250-450)
--- NOTE | 2020-10-08 19:50 | REP ---
INDICATION: r/o PNA LLL COMPARISON: 04/28/2020. TECHNIQUE: PA/Lateral FINDINGS: Lungs: Clear, no infiltrate. Heart: Normal in size. Mediastinum: Mediastinal silhouette unremarkable. Pleural angles: Unremarkable.. Bones and soft tissues: Unremarkable. IMPRESSION: No acute pulmonary disease. <Electronically signed by Giuliano Garcia > 10/08/20 194
[2020-10-08] MEDS ORDERED: LevoFLOXacin IV 750 MG in IV 1 EA IV SCH (20:00)
[2020-10-08] MEDS: PANTOPRAZOLE 40MG VIAL (C9113 PER 1) IV SCH (20:34)
[2020-10-08] MEDS ORDERED: MIRTAZAPINE 15 MG TAB PO SCH (21:00)
[2020-10-08 22:31] VITALS: BP 162/74
[2020-10-08] MEDS ORDERED: KETOROLAC 30 MG/ML 1ML VIAL As Ordered ONE (22:46)
[2020-10-08] MEDS: KETOROLAC 30 MG/ML 1ML VIAL IV PRN (22:48)
[2020-10-08 23:27] LABS: AMPHETAMINES LEVEL URINE NEGATIVE (NEGATIVE); BARBITURATES URINE NEGATIVE (NEGATIVE); BENZODIAZEPINES URINE NEGATIVE (NEGATIVE); CANNABINOIDS URINE POSITIVE (NEGATIVE); COCAINE METABOLITE URINE NEGATIVE (NEGATIVE); METHADONE URINE NEGATIVE (NEGATIVE); OPIATES URINE POSITIVE (NEGATIVE); PHENCYCLIDINE URINE NEGATIVE (NEGATIVE)
[2020-10-08] MEDS: CALCIUM CARBONATE 500 MG CHEW U/D PO PRN (23:45)
[2020-10-08] MEDS: MORPHINE 2 MG/ML 1ML VIAL (J2270) IV PRN (23:46)
[2020-10-08 23:53] VITALS: BP 157/65
[2020-10-09] VITALS (24 sets, daily range): BP systolic 110–184; BP diastolic 52–86
[2020-10-09] MEDS: tiZANidine 4 MG TAB PO SCH ×5 (01:50→20:24)
[2020-10-09 04:47] LABS: HEMATOCRIT 24.6 % (36.0-47.0); MEAN CORPUSCULAR HEMOGLOBIN 21.7 pg (27.0-33.0); MEAN CORPUSCULAR HGB CONC 28.5 g/dl (32.0-36.5); MEAN CORPUSCULAR VOLUME 76.4 fl (80.0-96.0); RED BLOOD COUNT 3.22 10^6/uL (4.00-5.40); WHITE BLOOD COUNT 14.3 10^3/uL (4.0-10.0)
[2020-10-09 05:00] LABS: PLATELET COUNT, AUTOMATED 374 10^3/uL (150-450)
[2020-10-09 05:08] LABS: ALT/SGPT 11 U/L (12-78); BILIRUBIN,TOTAL 0.2 MG/DL (0.2-1.0); BLOOD UREA NITROGEN 17 MG/DL (7-18); CALCIUM LEVEL 8.7 MG/DL (8.5-10.1); CARBON DIOXIDE LEVEL 22 MEQ/L (21-32); CHLORIDE LEVEL 105 MEQ/L (98-107); CREATININE FOR GFR 0.75 MG/DL (0.55-1.30); GLOMERULAR FILTRATION RATE > 60.0 (>58); GLUCOSE, FASTING 86 MG/DL (70-100); POTASSIUM SERUM 3.5 MEQ/L (3.5-5.1); SODIUM LEVEL 137 MEQ/L (136-145); TOTAL PROTEIN 7.8 GM/DL (6.4-8.2)
[2020-10-09] MEDS: NS 1,000 ML IV SCH (05:28)
[2020-10-09] MEDS: HumaLOG INSULIN (NovoLOG) PER UNIT SC SCH ×3 (05:30→17:30)
[2020-10-09] MEDS: MORPHINE 2 MG/ML 1ML VIAL (J2270) IV PRN (06:18)
[2020-10-09] MEDS: NICOTINE 14 MG/24 HR TRANSDERMAL TD SCH (08:17)
[2020-10-09] MEDS: KETOROLAC 30 MG/ML 1ML VIAL IV PRN ×2 (08:19→20:45)
[2020-10-09] MEDS ORDERED: LEVEMIR (INSULIN DETEMIR) 1 UNITS/0.01ML SC SCH (09:00)
[2020-10-09] MEDS ORDERED: THIAMINE 200MG/2ML VIAL (J3411 PER 100MG) IV SCH (09:00)
[2020-10-09] MEDS ORDERED: CYANOCOBALAMIN 1,000MCG/ML VIAL (J3420) IM SCH (09:00)
[2020-10-09] MEDS ORDERED: FOLIC ACID 1 MG in NS 50 ML IV SCH (09:00)
[2020-10-09] MEDS: GABAPENTIN 300 MG CAP PO SCH ×3 (09:02→20:24)
[2020-10-09] MEDS: FLUoxetine 20 MG CAP PO SCH (09:02)
[2020-10-09] MEDS: CALCIUM CARBONATE 500 MG CHEW U/D PO PRN ×2 (09:02→21:25)
--- NOTE | 2020-10-09 11:23 | IPNPDOC ---
Date Seen The patient was seen on 10/09/20. Progress Note SUBJECTIVE: Nausea with vomiting improved, complains of back pain and thirst this AM. Started CLD and home PO meds. H/H lower at 7.0/24.6, transfusing 2 units PRBC today, no s/s of bleeding. CXR neg for PNA, stopped abx. Denies chest pain, SOB and encouraging movement/walking today. OBJECTIVE: PHYSICAL EXAMINATION: VS: Please see below CONSTITUTIONAL: Appears uncomfortable, AAO x 3 EYES: PERRLA, EOM intact HENT, MOUTH: Normocephalic, atraumatic, moist mucous membranes NECK: SUPPLE, no JVD, no lymphadenopathy, no carotid bruit CV: Regular rate and rhythm, S1S2 normal, no murmurs/rubs/gallops BACK: lower back incision healed well, no erythema, swelling RESPIRATORY: Clear to auscultation bilaterally, no rales/rhonchi/wheezes GI: BS positive in 4 quadrants, soft, nontender, nondistended, no rebound or guarding, no organomegaly : Deferred MUSCULOSKELETAL: Normal ROM. No cyanosis, clubbing, swelling, joint deformity, extremity edema INTEGUMENTARY: Intact, no rashes, no lesions, no erythema NEUROLOGIC: Cranial Nerves II-XII are intact, no focal deficits LABORATORY DATA: Please see below IMAGING: CXR: No acute pulmonary disease. CT abd/pelvis: 1. Irregular pleural based density seen in the left lower lobe as described above. According to the revised Fleischner society criteria CT examination of the chest is recommended. 2. The pancreas is atrophic. The etiology is uncertain. Is this patient diabetic? 3. There is no evidence of acute intraabdominal or intrapelvic disease. 4. Chronic osseous changes as described above. ASSESSMENT: 45-year-old female with past medical history of diabetes mellitus type 1, tobacco use, autoimmune thyroiditis, depression, anxiety, chronic pain in the lower back admitted for further treatment of intractable vomiting likely 2/2 to gastroparesis, ? PNA LLL. PLAN: # Intractable vomiting likely 2/2 to gastroparesis vs. uncontrolled hyperglycemia- improved -No known history of gastroparesis -Discussed case (not officially consulted) with Dr. Krueger, GI. Has been on IVFS, Reglan, zofran PRN. Also thiamine, folate and Vitamin B12 daily. -Stopped all IV meds, transitioned to PO, started CLD -Will see how she tolerates this -C/w control of hyperglycemia below # Uncontrolled hyperglycemia likely 2/2 to acute n/v -Hx of DM type I -BS better controlled overnight (86-210) -HbA1c 7.1, compliant with home medications -Stopped IVFs. C/w home levemir 29 U QAM, ISS, AC/HS blood sugar checks, advance to consistent carb #Iron deficiency anemia, chronic -H/H low -No s/s of bleeding -Iron low, 13. Would benefit from iron BID, venofer infusion -Transfusing 2 U PRBC today, f/u post-tranfusion CBC -Monitor CBC closely #Leukocytosis likely reactive to dehydration -WBC 14.3, incr from 11.2 -No other s/s of infection -F/u CBC, monitor clinically #Hypertension likely 2/2 to uncontrolled vomiting, anxiety, back pain -C/w treatment above, pain regimen -Can give hydralazine PO PRN # Chronic low back pain -Recent lower back surgery -Resume home med, encourage ambulation # Tobacco use -Nicotine patch # Depression/anxiety -Stable #GI px. -PPI IV #DVT px -Enoxaparin Resolved issues: #Pseudohyponatremia 2/2 to hyperglycemia DISPOSITION: Admitted as acute inpatient. Plan is home when medically improved. VS, I&O, 24H, Fishbone Vital Signs/I&O Vital Signs Date Time Temp Pulse Resp B/P (MAP) Pulse Ox O2 Delivery O2 Flow Rate FiO2 10/09/20 06:28 18 10/09/20 04:00 99.5 79 158/66 (96) 99 Room Air I&O- Last 24 Hours up to 6 AM 10/09/20 06:00 Intake Total 2179 ml Balance 2179 ml Laboratory Data 24H LABS Laboratory Tests 2 10/08/20 12:13: Bedside Glucose (Misc Panel) 419H 10/08/20 12:55: Immature Granulocyte % (Auto) 0.7, Neutrophils (%) (Auto) 85.3H, Lymphocytes (%) (Auto) 8.2L, Monocytes (%) (Auto) 5.1H, Eosinophils (%) (Auto) 0.0, Basophils (%) (Auto) 0.7, Neutrophils # (Auto) 11.0H, Lymphocytes # (Auto) 1.1L, Monocytes # (Auto) 0.7, Eosinophils # (Auto) 0.0, Basophils # (Auto) 0.1, Nucleated Red Blood Cells % (auto) 0.0, Blood Gas Bicarbonate Standard 19.3, Venous Blood pH 7.353, Venous Blood Partial Pressure CO2 36.1L, Venous Blood Partial Pressure O2 29.3L, Venous Blood Total Carbon Dioxide 20.7L, Venous Blood HCO3 19.6L, Venous Blood Oxygen Saturation 49.3L, Venous Blood Base Excess -5.4L, Anion Gap 15, Glomerular Filtration Rate > 60.0, Estimated Mean Plasma Glucose 157H, Hem oglobin A1c 7.1, Osmolality 307H, Calcium Level 9.4, Phosphorus Level 3.3, Magnesium Level 1.8, Iron Level 18L, Total Iron Binding Capacity 407, Transferrin % Saturation 4.4L, Ferritin 20, Total Bilirubin 0.4, Direct Bilirubin < 0.1, Aspartate Amino Transf (AST/SGOT) 8, Alanine Aminotransferase (ALT/SGPT) 14, Alkaline Phosphatase 112, Total Protein 8.5H, Albumin 3.4, Albumin/Globulin Ratio 0.7L, Lipase 33L, Human Chorionic Gonadotropin, Quant < 1.0, B-Hydroxybutyrate 42.40H 10/08/20 14:10: Bedside Glucose (Misc Panel) 388H 10/08/20 14:19: Urine Opiates Screen POSITIVEH, Urine Methadone Screen NEGATIVE, Urine Barbiturates Screen NEGATIVE, Urine Phencyclidine Screen NEGATIVE, Urine Amphetamines Screen NEGATIVE, Urine Benzodiazepines Screen NEGATIVE, Urine Cocaine Metabolite Screen NEGATIVE, Urine Cannabinoids Screen POSITIVEH 10/08/20 14:20: Urine Color STRAW, Urine Appearance CLEAR, Urine pH 6.0, Urine Specific [place] 1.023, Urine Protein NEGATIVE, Urine Glucose (UA) 3+H, Urine Ketones 2+H, Urine Blood 2+H, Urine Nitrite NEGATIVE, Urine Bilirubin NEGATIVE, Urine Urobilinogen 0.2, Urine Leukocyte Esterase NEGATIVE, Urine WBC (Auto) 2, Urine RBC (Auto) 13H, Urine Hyaline Casts (Auto) 0, Urine Bacteria (Auto) NEGATIVE, Urine Squamous Epithelial Cells 0, Urine Sperm (Auto) 10/08/20 16:55: Bedside Glucose (Misc Panel) 254H 10/08/20 18:17: Bedside Glucose (Misc Panel) 275H 10/08/20 19:03: Coronavirus (COVID-19)(PCR) NEGATIVE 10/08/20 23:20: Bedside Glucose (Misc Panel) 210H 10/09/20 04:35: Nucleated Red Blood Cells % (auto) 0.0, Anion Gap 10, Glomerular Filtration Rate > 60.0, Calcium Level 8.7, Total Bilirubin 0.2, Aspartate Amino Transf (AST/SGOT) 7, Alanine Aminotransferase (ALT/SGPT) 11L, Alkaline Phosphatase 86, Total Protein 7.8, Albumin 3.0L, Albumin/Globulin Ratio 0.6L CBC/BMP Laboratory Tests 10/08/20 12:55 10/09/20 04:35 Microbiology Microbiology 10/09/20 Blood Culture, Received Pending 10/09/20 Blood Culture, Received Pending Current Medications Current Medications Medications (Trade) Dose Ordered Sig/Esmer Route PRN Reason Start Time Stop Time Status Last Admin Dose Admin Calcium Carbonate (Tums) 1,000 mg Q4HP PRN PO HEARTBURN 10/08/20 23:45 10/09/20 09:02 Cyanocobalamin (Vitamin B12 Injection) 1,000 mcg DAILY IM 10/09/20 09:00 10/09/20 08:45 DC Dextrose (Dextrose 50%) 25 ml ASDIRECTED PRN IV SEE LABEL COMMENTS 10/08/20 18:45 Diatrizoate Meglum/ Diatrizoate Sod (Gastrografin) 10 ml Q30M PO 10/08/20 14:30 10/08/20 15:01 DC 10/08/20 15:35 Fluoxetine HCl (PROzac) 40 mg DAILY PO 10/09/20 09:00 10/09/20 09:02 Folic Acid 1 mg/ Sodium Chloride 50.2 ml @ 100.4 mls/ hr Q24H IV 10/09/20 09:00 10/09/20 08:46 DC Gabapentin (Neurontin) 600 mg TID PO 10/09/20 09:00 10/09/20 09:02 Glucagon (Glucagon) 1 mg ASDIRECTED PRN SC SEE LABEL COMMENTS 10/08/20 18:45 Glucose (Glucose) 16 GM ASDIRECTED PRN PO SEE LABEL COMMENTS 10/08/20 18:45 Home Med (Med Rec Complete!) ASDIRECTED XX 10/08/20 18:00 10/08/20 17:58 DC Insulin Detemir (Levemir Insulin) 29 units QAM SC 10/09/20 09:00 10/09/20 08:20 Insulin Human Lispro (HumaLOG INSULIN) SEE PROTOCOL TABLE Q6H SC 10/08/20 18:00 10/08/20 23:46 Ketorolac Tromethamine (ToRADol) 15 mg Q6HP PRN IV PAIN 10/08/20 18:30 10/13/20 18:29 10/09/20 08:19 Levofloxacin 750 mg/IV Miscellaneous Supplies 150 ml @ 100 mls/hr Q24H IV 10/08/20 20:00 10/09/20 07:34 DC 10/08/20 20:34 Methocarbamol (Robaxin) 500 mg BID PRN PO MUSCLE SPASMS 10/09/20 08:45 Metoclopramide HCl (REGLAN INJection) 5 mg Q6HP PRN IV NAUSEA OR VOMITING 10/08/20 18:30 10/08/20 23:45 Mirtazapine (Remeron) 15 mg QPM PO 10/08/20 21:00 10/09/20 08:46 DC 10/09/20 01:50 Morphine Sulfate (Morphine Sulfate Inj) 1 mg Q6HP PRN IV MODERATE PAIN (PS 5-7) 10/08/20 18:45 10/09/20 08:46 DC 10/09/20 06:18 Nicotine (Nicoderm Cq 14mg) 1 patch DAILY TD 10/09/20 09:00 Ondansetron HCl (ZOFRAN INJection) 4 mg Q4HP PRN IV NAUSEA OR VOMITING 10/08/20 18:30 Oxycodone/ Acetaminophen (Percocet 5mg/ 325mg Tablet) 1 tab Q6H PRN PO PAIN 10/09/20 08:45 Pantoprazole Sodium (Protonix) 40 mg Q24H IV 10/08/20 21:00 10/08/20 20:34 Sodium Chloride 1,000 ml @ 85 mls/hr [id number] IV 10/08/20 18:30 10/09/20 05:28 Thiamine HCl (VITAMIN B1 INJection) 100 mg DAILY IV 10/09/20 09:00 10/09/20 08:46 DC 10/09/20 08:16 Tizanidine HCl (Zanaflex) 4 mg QID PO 10/08/20 21:00 10/09/20 08:16 Allergies Coded Allergies: No Known Allergies (Verified , 09/14/04) Ana Gastelum MD Oct 09, 2020 11:23
[2020-10-09] MEDS: FERROUS SULFATE 325MG TAB PO SCH ×2 (11:49→20:24)
[2020-10-09] MEDS: PERCOCET 5MG/325MG TAB PO PRN ×2 (12:23→18:34)
[2020-10-09] MEDS: PANTOPRAZOLE 40MG VIAL (C9113 PER 1) IV SCH (20:24)
[2020-10-09] MEDS: methocarbamoL 500 MG TAB PO PRN (20:44)
[2020-10-09] MEDS ORDERED: HumaLOG INSULIN (NovoLOG) PER UNIT SC SCH (21:00)
[2020-10-10 00:52] VITALS: BP 148/75
[2020-10-10] MEDS: PERCOCET 5MG/325MG TAB PO PRN ×4 (01:18→20:04)
[2020-10-10 06:00] VITALS: BP 173/94
[2020-10-10 06:03] LABS: HEMATOCRIT 33.3 % (36.0-47.0); MEAN CORPUSCULAR HEMOGLOBIN 23.3 pg (27.0-33.0); MEAN CORPUSCULAR HGB CONC 29.4 g/dl (32.0-36.5); MEAN CORPUSCULAR VOLUME 79.3 fl (80.0-96.0); PLATELET COUNT, AUTOMATED 315 10^3/uL (150-450); WHITE BLOOD COUNT 8.3 10^3/uL (4.0-10.0)
[2020-10-10 06:05] LABS: HEMOGLOBIN 9.8 g/dl (12.0-15.5)
[2020-10-10 06:29] LABS: ALBUMIN 2.7 GM/DL (3.2-5.2); ALT/SGPT 11 U/L (12-78); BILIRUBIN,TOTAL 0.2 MG/DL (0.2-1.0); BLOOD UREA NITROGEN 14 MG/DL (7-18); CALCIUM LEVEL 8.6 MG/DL (8.5-10.1); CARBON DIOXIDE LEVEL 25 MEQ/L (21-32); CHLORIDE LEVEL 106 MEQ/L (98-107); CREATININE FOR GFR 0.79 MG/DL (0.55-1.30); GLOMERULAR FILTRATION RATE > 60.0 (>58); GLUCOSE, FASTING 145 MG/DL (70-100); POTASSIUM SERUM 3.6 MEQ/L (3.5-5.1); SODIUM LEVEL 138 MEQ/L (136-145); TOTAL PROTEIN 6.7 GM/DL (6.4-8.2)
[2020-10-10] MEDS: KETOROLAC 30 MG/ML 1ML VIAL IV PRN ×2 (06:57→16:52)
[2020-10-10] MEDS: GABAPENTIN 300 MG CAP PO SCH ×3 (08:16→20:03)
[2020-10-10] MEDS: FERROUS SULFATE 325MG TAB PO SCH ×2 (08:16→20:02)
[2020-10-10] MEDS: HumaLOG INSULIN (NovoLOG) PER UNIT SC SCH ×3 (08:16→16:57)
[2020-10-10] MEDS: tiZANidine 4 MG TAB PO SCH ×4 (08:16→20:03)
[2020-10-10] MEDS: FLUoxetine 20 MG CAP PO SCH (08:16)
[2020-10-10] MEDS: NICOTINE 14 MG/24 HR TRANSDERMAL TD SCH ×2 (08:17→08:20)
[2020-10-10 14:00] VITALS: BP 141/68
--- NOTE | 2020-10-10 16:39 | IPNPDOC ---
Date Seen The patient was seen on 10/10/20. Progress Note SUBJECTIVE: BS have been lower than normal off of long acting insulin, that which patient is normally dependant on. She admits to using marijuana prior to becoming very ill day of admission, which could have triggered cannabinoid hyperemesis. Received 2 U PRBC, corrected appropriately. Denies chest pain, SOB and abdominal pain, n/v. OBJECTIVE: PHYSICAL EXAMINATION: VS: Please see below CONSTITUTIONAL: resting in bed, NAD, AAO x 3 EYES: PERRLA, EOM intact HENT, MOUTH: Normocephalic, atraumatic, moist mucous membranes NECK: SUPPLE, no JVD, no lymphadenopathy, no carotid bruit CV: Regular rate and rhythm, S1S2 normal, no murmurs/rubs/gallops BACK: lower back incision healed well, no erythema, swelling RESPIRATORY: Clear to auscultation bilaterally, no rales/rhonchi/wheezes GI: BS positive in 4 quadrants, soft, nontender, nondistended, no rebound or guarding, no organomegaly : Deferred MUSCULOSKELETAL: Normal ROM. No cyanosis, clubbing, swelling, joint deformity, extremity edema INTEGUMENTARY: Intact, no rashes, no lesions, no erythema NEUROLOGIC: Cranial Nerves II-XII are intact, no focal deficits LABORATORY DATA: Please see below MICROBIOLOGY: Bcx NG at 24 H UCx pending IMAGING: CXR: No acute pulmonary disease. CT abd/pelvis: 1. Irregular pleural based density seen in the left lower lobe as described above. According to the revised Fleischner society criteria CT examination of the chest is recommended. 2. The pancreas is atrophic. The etiology is uncertain. Is this patient diabetic? 3. There is no evidence of acute intraabdominal or intrapelvic disease. 4. Chronic osseous changes as described above. ASSESSMENT: 45-year-old female with past medical history of diabetes mellitus type 1, tobacco use, autoimmune thyroiditis, depression, anxiety, chronic pain in the lower back admitted for further treatment of intractable vomiting likely 2/2 to gastroparesis, ? PNA LLL. PLAN: # Intractable vomiting likely 2/2 to cannabinoid hyperemesis vs. gastroparesis vs. uncontrolled hyperglycemia- improved -No known history of gastroparesis. Admits to eating "gummies" with marijuana in them prior to becoming very ill the morning of admission. -No longer having n/v. Tolerating consistent carb diet well. Encouraging hydration during the day -She was counselled at bedside about negative effects of cannabinoids if this caused the hyperemesis. -C/w control of hyperglycemia below # DM type I with intermittent hypoglycemia. -BS 74 this AM, stopping HS ISS coverage as she is not on it at home. -HbA1c 7.1, compliant with home medications -Will continue to hold home levemir 29 U QAM -C/w ISS AC, AC/HS blood sugar checks, consistent carb. Hoping that her blood sugars remain stable enough to start at least some of her long acting insulins tomorrow so we can discuss discharge. #Iron deficiency anemia, chronic -H/H 9.8/, improved -No s/s of bleeding -Iron low, 13. -Started iron BID. Would benefit from venofer infusion o/p -Monitor CBC closely #Hypertension likely 2/2 to uncontrolled vomiting, anxiety, back pain -BP 140-170 systolic mmHG -Giving one dose lasix today -C/w treatment above, home pain regimen # Chronic low back pain -Recent lower back surgery -C/w home med, encourage ambulation # Tobacco use -Nicotine patch # Depression/anxiety -Stable #DVT px -Enoxaparin Resolved issues: #Pseudohyponatremia 2/2 to hyperglycemia #Leukocytosis likely reactive to dehydration- resolved DISPOSITION: Admitted as acute inpatient. Plan is home when medically improved. VS, I&O, 24H, [place] Vital Signs/I&O Vital Signs Date Time Temp Pulse Resp B/P (MAP) Pulse Ox O2 Delivery O2 Flow Rate FiO2 10/10/20 14:36 18 10/10/20 14:00 99.1 66 141/68 (92) 99 Room Air I&O- Last 24 Hours up to 6 AM 10/10/20 06:00 Intake Total 2896 ml Output Total 700 ml Balance 2196 ml Laboratory Data 24H LABS Laboratory Tests 2 10/09/20 17:34: Bedside Glucose (Misc Panel) 32*L 10/09/20 17:49: Bedside Glucose Confirm (Misc) 34*L 10/09/20 18:36: Bedside Glucose (Misc Panel) 107H 10/09/20 20:23: Bedside Glucose (Misc Panel) 146H 10/09/20 22:51: Bedside Glucose (Misc Panel) 89 10/10/20 00:43: Bedside Glucose (Misc Panel) 74 10/10/20 05:39: Nucleated Red Blood Cells % (auto) 0.0, Anion Gap 7L, Glomerular Filtration Rate > 60.0, Calcium Level 8.6, Total Bilirubin 0.2, Aspartate Amino Transf (AST/SGOT) 14, Alanine Aminotransferase (ALT/SGPT) 11L, Alkaline Phosphatase 86, Total Protein 6.7, Albumin 2.7L, Albumin/Globulin Ratio 0.7L 10/10/20 07:45: Urine Color YELLOW, Urine Appearance CLEAR, Urine pH 6.0, Urine Specific [place] 1.026, Urine Protein 1+H, Urine Glucose (UA) NEGATIVE, Urine Ketones NEGATIVE, Urine Blood 2+H, Urine Nitrite NEGATIVE, Urine Bilirubin 1+H, Urine Urobilinogen 0.2, Urine Leukocyte Esterase 1+H, Urine WBC (Auto) 15H, Urine RBC (Auto) 21H, Urine Hyaline Casts (Auto) 0, Urine Bacteria (Auto) 1+H, Urine Squamous Epithelial Cells 2, Urine Mucus (Auto) SMALL, Urine Sperm (Auto) 10/10/20 10:57: Bedside Glucose (Misc Panel) 205H CBC/BMP Laboratory Tests 10/10/20 05:39 Microbiology Microbiology 10/10/20 Urine Culture, Received Pending 10/09/20 Blood Culture - Preliminary, Resulted No growth after 24 hours . All specim... 10/09/20 Blood Culture - Preliminary, Resulted No growth after 24 hours . All specim... Current Medications Current Medications Medications (Trade) Dose Ordered Sig/Esmer Route PRN Reason Start Time Stop Time Status Last Admin Dose Admin Calcium Carbonate (Tums) 1,000 mg Q4HP PRN PO HEARTBURN 10/08/20 23:45 10/09/20 21:25 Cyanocobalamin (Vitamin B12 Injection) 1,000 mcg DAILY IM 10/09/20 09:00 10/09/20 08:45 DC Dextrose (Dextrose 50%) 25 ml ASDIRECTED PRN IV SEE LABEL COMMENTS 10/08/20 18:45 10/09/20 11:49 Diatrizoate Meglum/ Diatrizoate Sod (Gastrografin) 10 ml Q30M PO 10/08/20 14:30 10/08/20 15:01 DC 10/08/20 15:35 Ferrous Sulfate (Ferrous Sulfate) 325 mg BID PO 10/09/20 09:00 10/10/20 08:16 Fluoxetine HCl (PROzac) 40 mg DAILY PO 10/09/20 09:00 10/10/20 08:16 Folic Acid 1 mg/ Sodium Chloride 50.2 ml @ 100.4 mls/ hr Q24H IV 10/09/20 09:00 10/09/20 08:46 DC Gabapentin (Neurontin) 600 mg TID PO 10/09/20 09:00 10/10/20 08:16 Glucagon (Glucagon) 1 mg ASDIRECTED PRN SC SEE LABEL COMMENTS 10/08/20 18:45 Glucose (Glucose) 16 GM ASDIRECTED PRN PO SEE LABEL COMMENTS 10/08/20 18:45 Home Med (Med Rec Complete!) ASDIRECTED XX 10/08/20 18:00 10/08/20 17:58 DC Insulin Detemir (Levemir Insulin) 29 units QAM SC 10/09/20 09:00 10/09/20 17:55 DC 10/09/20 08:20 Insulin Human Lispro (HumaLOG INSULIN) SEE PROTOCOL TABLE AC CO 10/09/20 12:00 10/10/20 12:06 Insulin Human Lispro (HumaLOG INSULIN) SEE PROTOCOL TABLE Q6H CO 10/08/20 18:00 10/09/20 11:15 DC 10/08/20 23:46 Insulin Human Lispro (HumaLOG INSULIN) SEE PROTOCOL TABLE QHS CO 10/09/20 21:00 Ketorolac Tromethamine (ToRADol) 15 mg Q6HP PRN IV PAIN 10/08/20 18:30 10/13/20 18:29 10/10/20 06:57 Levofloxacin 750 mg/IV Miscellaneous Supplies 150 ml @ 100 mls/hr Q24H IV 10/08/20 20:00 10/09/20 07:34 DC 10/08/20 20:34 Methocarbamol (Robaxin) 500 mg BID PRN PO MUSCLE SPASMS 10/09/20 08:45 10/09/20 20:44 Metoclopramide HCl (REGLAN INJection) 5 mg Q6HP PRN IV NAUSEA OR VOMITING 10/08/20 18:30 10/08/20 23:45 Mirtazapine (Remeron) 15 mg QPM PO 10/08/20 21:00 10/09/20 08:46 DC 10/09/20 01:50 Morphine Sulfate (Morphine Sulfate Inj) 1 mg Q6HP PRN IV MODERATE PAIN (PS 5-7) 10/08/20 18:45 10/09/20 08:46 DC 10/09/20 06:18 Nicotine (Nicoderm Cq 14mg) 1 patch DAILY TD 10/09/20 09:00 Ondansetron HCl (ZOFRAN INJection) 4 mg Q4HP PRN IV NAUSEA OR VOMITING 10/08/20 18:30 Oxycodone/ Acetaminophen (Percocet 5mg/ 325mg Tablet) 1 tab Q6H PRN PO PAIN 10/09/20 08:45 10/10/20 14:00 Pantoprazole Sodium (Protonix) 40 mg Q24H IV 10/08/20 21:00 10/09/20 20:24 Sodium Chloride 1,000 ml @ 85 mls/hr [id number] IV 10/08/20 18:30 10/09/20 11:10 DC 10/09/20 05:28 Thiamine HCl (VITAMIN B1 INJection) 100 mg DAILY IV 10/09/20 09:00 10/09/20 08:46 DC 10/09/20 08:16 Tizanidine HCl (Zanaflex) 4 mg QID PO 10/08/20 21:00 10/10/20 12:06 Allergies Coded Allergies: No Known Allergies (Verified , 09/14/04) Ana Gastelum MD Oct 10, 2020 16:39
[2020-10-10] MEDS ORDERED: FUROSEMIDE 20 MG TAB PO ONE (17:00)
[2020-10-10 22:00] VITALS: BP 164/78
[2020-10-11] MEDS: PERCOCET 5MG/325MG TAB PO PRN ×2 (02:05→08:05)
[2020-10-11] MEDS ORDERED: HumaLOG INSULIN (NovoLOG) PER UNIT SC ONE (03:00)
[2020-10-11] MEDS: methocarbamoL 500 MG TAB PO PRN (05:05)
[2020-10-11] MEDS: KETOROLAC 30 MG/ML 1ML VIAL IV PRN (05:06)
[2020-10-11 06:00] VITALS: BP 147/64
[2020-10-11 06:45] LABS: HEMATOCRIT 32.9 % (36.0-47.0); HEMOGLOBIN 9.7 g/dl (12.0-15.5); MEAN CORPUSCULAR HGB CONC 29.5 g/dl (32.0-36.5); MEAN CORPUSCULAR VOLUME 78.1 fl (80.0-96.0); PLATELET COUNT, AUTOMATED 276 10^3/uL (150-450); RED BLOOD COUNT 4.21 10^6/uL (4.00-5.40); WHITE BLOOD COUNT 6.5 10^3/uL (4.0-10.0)
[2020-10-11 07:11] LABS: ALBUMIN 2.9 GM/DL (3.2-5.2); ALT/SGPT 13 U/L (12-78); BILIRUBIN,TOTAL 0.3 MG/DL (0.2-1.0); BLOOD UREA NITROGEN 12 MG/DL (7-18); CALCIUM LEVEL 8.2 MG/DL (8.5-10.1); CARBON DIOXIDE LEVEL 29 MEQ/L (21-32); CHLORIDE LEVEL 102 MEQ/L (98-107); CREATININE FOR GFR 0.78 MG/DL (0.55-1.30); GLOMERULAR FILTRATION RATE > 60.0 (>58); GLUCOSE, FASTING 238 MG/DL (70-100); POTASSIUM SERUM 3.3 MEQ/L (3.5-5.1); SODIUM LEVEL 137 MEQ/L (136-145); TOTAL PROTEIN 6.8 GM/DL (6.4-8.2)
[2020-10-11] MEDS: NICOTINE 14 MG/24 HR TRANSDERMAL TD SCH (08:01)
[2020-10-11] MEDS: HumaLOG INSULIN (NovoLOG) PER UNIT SC SCH (08:01)
[2020-10-11] MEDS: tiZANidine 4 MG TAB PO SCH (08:01)
[2020-10-11] MEDS: GABAPENTIN 300 MG CAP PO SCH (08:01)
[2020-10-11] MEDS: FERROUS SULFATE 325MG TAB PO SCH (08:01)
[2020-10-11] MEDS: FLUoxetine 20 MG CAP PO SCH (08:01)
[2020-10-11] MEDS ORDERED: BASA100I SC (08:04)
[2020-10-11] MEDS ORDERED: LEVEMIR (INSULIN DETEMIR) 1 UNITS/0.01ML SC SCH (09:00)
[2020-10-11] MEDS ORDERED: POTASSIUM CHLORIDE 10 MEQ SR TABLET PO ONE (09:00)
--- NOTE | 2020-10-11 16:46 | DS.PDOC ---
Discharge Summary General Date of Admission Oct 08, 2020 at 21:37 Date of Discharge 10/11/20 Attending Physician: Ana Gastelum MD Discharge Summary HISTORY OF PRESENT ILLNESS: Patient is a 45-year-old female with past medical history of diabetes mellitus type 1, tobacco use, autoimmune thyroiditis, depression, anxiety, chronic pain in the lower back who presented to [facility] emergency room after sudde onset of intractable vomiting since this morning. The patient states she had a normal dinner last evening and woke up this morning at 7 AM vomiting profusely. She denies any bloody vomitus but states at home she vomited over 20 times. She has no known gastroparesis, has not had recent medication changes, and denies sick contacts, diarrhea, chest pain, fevers, abdominal pain. She has associated lightheadedness, dizziness, weakness since this morning. She states her vomiting continued and she came to the emergency room to be further evaluated. She has had vomiting similar to this in the past but not this severe. In the emergency room, vital signs showed blood pressure 190 systolic. Abnormal labs included sodium 133; however, blood sugar was elevated at 443 indicating pseudohyponatremia. Hemoglobin A1c 7.1. AG 15, VBG pH 7.353, PCO2 36.1, ketone positive. CT of the abdomen and pelvis showed questionable linear opacity in the left lower lung adjusting further study with CT of the chest, atrophic pancreas. WBC 12.8, H&H 8.2/29.1, beta hCG negative. UDS + cannabis.The patient was given 8 mg of Zofran, 25 mg of Phenergan and later 10 mg of Reglan but the patient states she's continues to have nausea with vomiting. The case was discussed in detail with Dr. Krueger, gastroenterology. Patient was admitted for further treatment of intractable vomiting likely 2/2 to gastroparesis vs. cannabinoid hyperemesis HOSPITAL COURSE: Patient's hyperemesis improved after 24 hours. She had multiple days where her blood sugar dropped. After transitioning to consistent carb diet and removing HS ISS coverage, hypoglycemic episodes resolved. She had resolved emesis. BS continued to trend upward and when most were around 200, we started on levemir 10 U QAM, decreased from home basaglar dose of 29 U QAM. She will be discharged today with ISS and basaglar 10 U QAM. She will likely begin to see her blood sugar rise as she continues to improve and will need to slowly increase her basaglar dosing -- this is recommended to be done with the help of her PCP. It is advised she touch base with them after the weekend. At time of discharge, she denies chest pain, n/v/d, shortness of breath. She was also counselled on use of cannabis and its likely effects on her. IF she should have another episode of vomiting to this degree WITHOUT the use of cannabis, this is likely gastroparesis and will then need a gastric emptying study while off narcotics to further assess. PAST MEDICAL HISTORY: 1. Diabetes mellitus type 1 2. Tobacco use 3. Autoimmune thyroiditis 4. Depression 5. Anxiety 6. Chronic lower back pain 7. Muscle spasms PAST SURGICAL HISTORY: 1. L5, S1 back fusion surgery with dora placement, spacer placed Aug 2020 2. C section x 3 FAMILY HISTORY: Father: Healthy. Alive Mother: Breast cancer, COPD. ALive SOCIAL HISTORY: Smoker for 32 years, 6 cig/day- has cut down. Denies alcohol or drug use. Lives with daughter. HCP daughter Carlos Byrd. PCP Mary García, Private Investigator Surveillance: Dr. Boyle. Full Code ALLERGIES: Please see below. DISCHARGE MEDICATIONS: Please see below. PHYSICAL EXAMINATION: VS: Please see below CONSTITUTIONAL: resting in bed, NAD, AAO x 3 EYES: PERRLA, EOM intact HENT, MOUTH: Normocephalic, atraumatic, moist mucous membranes NECK: SUPPLE, no JVD, no lymphadenopathy, no carotid bruit CV: Regular rate and rhythm, S1S2 normal, no murmurs/rubs/gallops BACK: lower back incision healed well, no erythema, swelling RESPIRATORY: Clear to auscultation bilaterally, no rales/rhonchi/wheezes GI: BS positive in 4 quadrants, soft, nontender, nondistended, no rebound or guarding, no organomegaly : Deferred MUSCULOSKELETAL: Normal ROM. No cyanosis, clubbing, swelling, joint deformity, extremity edema INTEGUMENTARY: Intact, no rashes, no lesions, no erythema NEUROLOGIC: Cranial Nerves II-XII are intact, no focal deficits LABORATORY DATA: Please see below MICROBIOLOGY: Bcx NG at 24 H UCx pending IMAGING: CXR: No acute pulmonary disease. CT abd/pelvis: 1. Irregular pleural based density seen in the left lower lobe as described above. According to the revised Fleischner society criteria CT examination of the chest is recommended. 2. The pancreas is atrophic. The etiology is uncertain. Is this patient diabetic? 3. There is no evidence of acute intraabdominal or intrapelvic disease. 4. Chronic osseous changes as described above. ASSESSMENT: 45-year-old female with past medical history of diabetes mellitus type 1, tobacco use, autoimmune thyroiditis, depression, anxiety, chronic pain in the lower back admitted for further treatment of intractable vomiting likely 2/2 to gastroparesis vs. cannabinoid hyperemesis. PLAN: # Intractable vomiting likely 2/2 to cannabinoid hyperemesis vs. gastroparesis vs. uncontrolled hyperglycemia- resolved -No known history of gastroparesis. Admits to eating "gummies" with marijuana in them prior to becoming very ill the morning of admission. -No longer having n/v. Tolerating consistent carb diet well. Encouraging hydration during the day -She was counselled at bedside about negative effects of cannabinoids if this caused the hyperemesis. -C/w control of hyperglycemia below # DM type I -Resolved hypoglycemia -BS remains close to 200 consistently -HbA1c 7.1, compliant with home medications -Restarted daily basaglar at 10 U QAM, will need this increased over time so needs close follow up with PCP after discharge. She closely monitors her glucose so will know that if the BS continues to rise, she will need to increase her basaglar. C/w sliding scale. #Iron deficiency anemia, chronic -H/H stable, s/p 2 units PRBC this stay -No s/s of bleeding -Iron low, 13. -Started iron BID. Would benefit from venofer infusion o/p -Monitor CBC closely #Hypertension likely 2/2 to uncontrolled vomiting, anxiety, back pain -BP 140-160 systolic mmHG -Will need to f/u with PCP after discharge. # Chronic low back pain -Recent lower back surgery -C/w home med, encourage ambulation # Tobacco use -Smoking cessation counselling provided at bedside this stay # Depression/anxiety -Stable Resolved issues: #Pseudohyponatremia 2/2 to hyperglycemia #Leukocytosis likely reactive to dehydration- resolved DISPOSITION: Discharged today with needing to follow up with PCP after weekend. TIME SPENT ON DISCHARGE: Greater than 30 minutes. Vital Signs/I&Os Vital Signs Date Time Temp Pulse Resp B/P (MAP) Pulse Ox O2 Delivery O2 Flow Rate FiO2 10/11/20 08:37 20 10/11/20 08:05 Room Air 10/11/20 06:00 98.3 63 147/64 (91) 100 I&O- Last 24 Hours up to 6 AM 10/11/20 05:59 Intake Total 1925 ml Output Total 500 ml Balance 1425 ml Laboratory Data Labs 24H Laboratory Tests 2 10/10/20 19:55: Bedside Glucose (Misc Panel) 222H 10/11/20 05:55: Nucleated Red Blood Cells % (auto) 0.0, Anion Gap 6L, Glomerular Filtration Rate > 60.0, Calcium Level 8.2L, Total Bilirubin 0.3, Aspartate Amino Transf (AST/SGOT) 13, Alanine Aminotransferase (ALT/SGPT) 13, Alkaline Phosphatase 88, Total Protein 6.8, Albumin 2.9L, Albumin/Globulin Ratio 0.7L CBC/BMP Laboratory Tests 10/11/20 05:55 FSBS Laboratory Tests Test 10/10/20 19:55 Range/Units Bedside Glucose (Misc Panel) 222 70-105 MG/DL Microbiology Microbiology 10/10/20 Urine Culture - Final, Complete 10/09/20 Blood Culture - Preliminary, Resulted No Growth after 48 hours. All Specime... 10/09/20 Blood Culture - Preliminary, Resulted No Growth after 48 hours. All Specime... Discharge Medications Scheduled Fluoxetine Hcl (Fluoxetine HCl) 40 Mg Capsule, 40 MG PO DAILY, (Reported) Gabapentin (Gabapentin) 600 Mg Tablet, 600 MG PO TID, (Reported) Insulin Glargine,Hum.rec.anlog (Basaglar Kwikpen U-100) 100 Unit/1 Ml Insuln.pen, 10 UNITS SC DAILY Insulin Lispro (Admelog) 100 Unit/1 Ml Vial, 1 DOSE SC AC, (Reported) PER SLIDING SCALE Methylprednisolone (Methylprednisolone) 4 Mg Tab.ds.pk, 4 MG PO ASDIRECTED, (Reported) FOR 6 DAYS, STARTED 10/07 Tizanidine HCl (Tizanidine HCl) 4 Mg Tablet, 4 MG PO QID, (Reported) Varenicline Tartrate (Chantix) 1 Mg Tablet, 1 MG PO BID, (Reported) Scheduled PRN Methocarbamol (Methocarbamol) 500 Mg Tablet, 500 MG PO BID PRN for MUSCLE SPASMS, (Reported) Oxycodone HCl/Acetaminophen (Percocet 5-325 mg Tablet) 1 Each Tablet, 1 TAB PO Q6H PRN for PAIN Allergies Coded Allergies: No Known Allergies (Verified , 09/14/04) Ana Gastelum MD Oct 11, 2020 16:46
== END 2020-10-11 10:45 | disposition home or self-care (01) | DRG 48 ==
LOC: M ED 12:06 → M ED INP 21:37 → ENRESERV 22:04 → M ICU 22:45 → M MSPAV 10-10 00:49
PROVIDERS: ADMIT Internal Medicine; ATTEND Internal Medicine
PROC: 30233N1 Transfusion of Nonautologous Red Blood Cells into Peripheral Vein, Percutaneous Approach (ICD-10-PCS; principal; 2020-10-09)
DX: E10.43 Type 1 diabetes mellitus with diabetic autonomic (poly)neuropathy (principal); E10.65 Type 1 diabetes mellitus with hyperglycemia; K31.84 Gastroparesis; F32.9 Major depressive disorder, single episode, unspecified; F17.210 Nicotine dependence, cigarettes, uncomplicated; D50.9 Iron deficiency anemia, unspecified; E06.3 Autoimmune thyroiditis; F41.9 Anxiety disorder, unspecified; M54.5 Low back pain; Z98.1 Arthrodesis status; Z79.4 Long term (current) use of insulin; Z79.899 Other long term (current) drug therapy; E86.0 Dehydration; Z20.828 Contact with and (suspected) exposure to other viral communicable diseases; F12.188 Cannabis abuse with other cannabis-induced disorder; M62.838 Other muscle spasm

== ENCOUNTER 2020-10-21 10:00 | Inpatient (IN) | payer OTHER ==
[~2020-10-21] VITALS: Ht 162.6 cm; Wt 60.1 kg
[2020-10-21] MEDS: FLUoxetine 20 MG CAP PO SCH (09:00)
[~2020-10-21 10:00] MED LIST changes: +ADME100I SC; +CHAN1PAK13 PO; +METH4PACK PO; +MIRT-62 PO; -REME15TA PO; +TIZA4TAB4 PO
[2020-10-21] MEDS ORDERED: NS 1,000 ML IV ONE (10:30)
[2020-10-21] MEDS ORDERED: HALOPERIDOL 5MG/ML VIAL (J1630 PER 1) IV ONE (10:30)
[2020-10-21] MEDS ORDERED: HALOPERIDOL 5MG/ML VIAL (J1630 PER 1) As Ordered ONE (10:32)
[2020-10-21 10:57] LABS: HEMATOCRIT 39.4 % (36.0-47.0); HEMOGLOBIN 11.6 g/dl (12.0-15.5); MEAN CORPUSCULAR HEMOGLOBIN 24.1 pg (27.0-33.0); MEAN CORPUSCULAR HGB CONC 29.4 g/dl (32.0-36.5); MEAN CORPUSCULAR VOLUME 81.9 fl (80.0-96.0); PLATELET COUNT, AUTOMATED 478 10^3/uL (150-450); RED BLOOD COUNT 4.81 10^6/uL (4.00-5.40); WHITE BLOOD COUNT 19.9 10^3/uL (4.0-10.0)
[2020-10-21] MEDS ORDERED: KETOROLAC 30 MG/ML 1ML VIAL IV ONE (11:30)
[2020-10-21 11:42] LABS: ALBUMIN 3.2 GM/DL (3.2-5.2); ALT/SGPT 17 U/L (12-78); BILIRUBIN,DIRECT < 0.1 MG/DL (0.0-0.2); BILIRUBIN,TOTAL 0.5 MG/DL (0.2-1.0); LIPASE 25 U/L (73-393); TOTAL PROTEIN 8.3 GM/DL (6.4-8.2)
[2020-10-21] MEDS ORDERED: ISOVUE-370 76% 100ML VIAL As Ordered ONE (12:13)
--- NOTE | 2020-10-21 12:40 | REP ---
INDICATION: intractable vomiting, gastroparesis. COMPARISON: 10/08/2020 TECHNIQUE: 100 cc Isovue 370 FINDINGS: There is no change in the lung bases. Once again, there is an asymmetric pleural based density in the left lower lobe. The liver, gallbladder, spleen, pancreas, adrenal glands, and kidneys are unchanged. The abdominal aorta and para-regions are unchanged. There is no free fluid or free air. There is no significant change in the appearance of the bowel loops or the mesenteries. There is fluid in the stomach, however, there is no evidence of a gastric outlet obstruction. No mass or adenopathy has developed. There is no change in the osseous structures. IMPRESSION: 1. Unchanged irregular pleural based density in the left lower lobe and for which CT examination the chest is recommended as per the revised Fleischner society criteria. The recommendation was made on the 10/08/2020 exam as well. 2. No evidence of acute intra-or intrapelvic disease and no significant change compared to the prior exam with findings as described above. <Electronically signed by Lewis Martino > 10/21/20 0380
--- NOTE | 2020-10-21 13:18 | REP ---
INDICATION: request of Radiology - LLL opacity COMPARISON: None TECHNIQUE: Axial noncontrast images from the thoracic inlet to the upper abdomen with coronal and sagittal reformations. This CT examination was performed using the following dose reduction techniques: Automated exposure control, adjustment of mA and/or kv according to the patient's size, and use of iterative reconstruction technique. FINDINGS: The subtle pleural based irregularity along the periphery of the left lower lobe includes a small 7 mm part solid component with linear fibrosis/scarring and is nonspecific in appearance. Differential diagnosis would include small focus of atelectasis or chronic change. Remainder of lung escobar are well aerated and clear. No further consolidation, suspicious nodule or mass lesion. No pleural effusion. No pneumothorax. Tracheobronchial tree is patent. No obvious adenopathy noted. Mediastinum demonstrates relatively normal thoracic aorta, pulmonary vasculature, and heart/pericardium. Surrounding musculoskeletal structures are intact. IMPRESSION: Small pleural based irregularity with linear fibrosis is nonspecific in appearance. Differential diagnosis would include chronic scarring and small acute atelectasis. Consider follow-up chest CT at 6-9 months. <Electronically signed by Ar Almonte > 10/21/20 0534
[2020-10-21 14:01] LABS: AMPHETAMINES LEVEL URINE NEGATIVE (NEGATIVE); BARBITURATES URINE NEGATIVE (NEGATIVE); BENZODIAZEPINES URINE NEGATIVE (NEGATIVE); CANNABINOIDS URINE NEGATIVE (NEGATIVE); COCAINE METABOLITE URINE NEGATIVE (NEGATIVE); METHADONE URINE NEGATIVE (NEGATIVE); OPIATES URINE POSITIVE (NEGATIVE); PHENCYCLIDINE URINE NEGATIVE (NEGATIVE)
[2020-10-21 14:17] LABS: VENOUS BASE EXCESS -1.9 (-2.0-2.0); VENOUS HCO3 22.2 MEQ/L (23.0-27.0); VENOUS O2 SATURATION 99.5 % (60.0-80.0); VENOUS PARTIAL PRESSURE CO2 35.6 mmHg (38.0-50.0); VENOUS PARTIAL PRESSURE O2 145.3 mmHg (30.0-50.0); VENOUS PH 7.412 UNITS (7.330-7.430); VENOUS STANDARD HCO3 22.9 MEQ/L; VENOUS TOTAL CO2 23.3 MEQ/L (24.0-28.0)
[2020-10-21] MEDS ORDERED: BASA100I SC (14:44)
[2020-10-21] MEDS ORDERED: DICL75TA PO (14:44)
[2020-10-21] MEDS ORDERED: MIRT-62 PO (14:44)
[2020-10-21] MEDS ORDERED: HYDR-3716 PO (14:44)
--- NOTE | 2020-10-21 14:56 | HPEPDOC ---
[facility] Medical History & Physical Date of Admission Oct 21, 2020 Date of Service: Oct 21, 2020 Attending Physician: Ana Gastelum MD History and Physical CHIEF COMPLAINT: Increased n/v HISTORY OF PRESENT ILLNESS: 45-year-old female with past medical history of diabetes mellitus type 1, tobacco use, autoimmune thyroiditis, depression, anxiety, ? gastroparesis, chronic lower back pain who presented to [facility] for increased n/v which began early this AM. Patient states she had worsened heartburn the evening of 10/20/20 but later fell asleep. When she woke up she had multiple episodes of sharron sea with vomiting which did not cease at home. She denies blood in vomit, recent illnesses, fevers, chills, diet changes, medication changes, shortness of breath, chest pains. She was recently hospitalized on 10/08- for intractable vomiting likely 2/2 to cannabinoid hyperemesis vs. gastroparesis. Today she returns with very similar symptoms compared to last admission; however, her UDS was neg for cannabinoids this time, so this is unlikely cannabinoid hyperemesis. In the ER, VS were stable. Patient vomited 600-700 mL of clear/light green bile fluid. She was given NS bolus and started on IV fluids, she remained HD stable. WBC 19.9, H/H 11.6/39.4, K 5.2, blood sugar 390. CT abd: 1. Unchanged irregular pleural based density in the left lower lobe and for which CT examination the chest is recommended as per the revised Fleischner society criteria- The recommendation was made on the 10/08/2020 exam as well. 2. No evidence of acute intra-or intrapelvic disease and no significant change compared to the prior exam with findings as described above. On evaluation, patient was in moderate distress, uncomfortable, nauseous complaining of chronic back pain worsened by vomiting/dehydration. Patient was admitted for intractable vomiting likely 2/2 to gastroparesis, dehydration, uncontrolled hyperglycemia. REVIEW OF SYSTEMS: CONSTITUTIONAL: Denies unexplained weight gain or weight loss, fever, night sweats EYES: Denies eye drainage, eye pain, visual changes, dry/irritated eye EARS, NOSE, MOUTH, THROAT: Denies difficulty hearing, ringing in ears, mouth sores, loose teeth, sore throat, facial numbness or pain NECK: Denies swollen glands CARDIOVASCULAR: Denies irregular heartbeat, racing heart, chest pains, swelling of feet or legs, pain in legs with walking RESPIRATORY: Denies night sweats, wheezing, sputum production, oxygen at home, coughing up blood, cough lasting > 1 month GASTROINTESTINAL: Denies abdominal pain, constipation, bloody stool, diarrhea GENITOURINARY: Denies painful urination, bloody urine, frequent urination, urgency, leaking urine, impotence MUSCULOSKELETAL: Denies joint pain, muscle pain, leg swelling INTEGUMENTARY: Denies rash, itching, new skin lesion, change in existing skin lesion, hair loss or increase, breast changes. NEUROLOGICAL: Denies difficulty walking, numbness or tingling PSYCHIATRIC: Denies recurrent bad thoughts, mood swings, hallucinations PAST MEDICAL HISTORY: 1. Diabetes mellitus type 1 2. Tobacco use 3. Autoimmune thyroiditis 4. Depression 5. Anxiety 6. Chronic lower back pain 7. Muscle spasms 8. Gastroparesis PAST SURGICAL HISTORY: 1. L5, S1 back fusion surgery with dora placement, spacer placed Aug 2020 2. C section x 3 FAMILY HISTORY: Father: Healthy. Alive Mother: Breast cancer, COPD. ALive SOCIAL HISTORY: Smoker for 32 years, 6 cig/day- has cut down. Denies alcohol or drug use. Lives with daughter. HCP daughter Carlos Byrd. PCP Mary García, Lot Attendant: Dr. Boyle. Full Code ALLERGIES: Please see below. HOME MEDICATIONS: Please see below. PHYSICAL EXAMINATION: VS: Please see below CONSTITUTIONAL: Appears uncomfortable, in mod distress, AAO x 3 EYES: PERRLA, EOM intact HENT, MOUTH: Normocephalic, atraumatic, dry mucous membranes NECK: SUPPLE, no JVD, no lymphadenopathy, no carotid bruit CV: Regular rate and rhythm, S1S2 normal, no murmurs/rubs/gallops RESPIRATORY: Clear to auscultation bilaterally, no rales/rhonchi/wheezes GI: BS positive in 4 quadrants, soft, nontender, nondistended, no rebound or guarding, no organomegaly : Deferred MUSCULOSKELETAL: Normal ROM. No cyanosis, clubbing, swelling, joint deformity, extremity edema INTEGUMENTARY: Intact, no rashes, no lesions, no erythema NEUROLOGIC: Cranial Nerves II-XII are intact, no focal deficits LABORATORY DATA: Please see below MICROBIOLOGY: F/u UA, Blood cultures IMAGING: CT chest: Small pleural based irregularity with linear fibrosis is nonspecific in appearance. Differential diagnosis would include chronic scarring and small acute atelectasis. Consider follow-up chest CT at 6-[address] abd/pelvis: 1. Unchanged irregular pleural based density in the left lower lobe and for which CT examination the chest is recommended as per the revised Fleischner society criteria. The recommendation was made on the 10/08/2020 exam as well. 2. No evidence of acute intra-or intrapelvic disease and no significant change compared to the prior exam with findings as described above. ASSESSMENT: 45-year-old female with past medical history of diabetes mellitus type 1, tobacco use, autoimmune thyroiditis, depression, anxiety, chronic pain in the lower back admitted for further treatment of intractable vomiting likely 2/2 to gastroparesis, uncontrolled hyperglycemia and dehydration. PLAN: # Intractable vomiting likely 2/2 to gastroparesis -Suspicious of gastroparesis from last visit, has not been worked up thoroughly -Discussed need to be off narcotics for gastric emptying study but patient is requesting pain meds for severe back pain -Last admission, discussed case with Dr. Krueger, GI. Suggests IVFS, Reglan, zofran PRN. Also thiamine, folate -NPO except meds for 24 hours. -If vomiting increases or worsens, can add erythromycin IV TID. -F/u daily labs and electrolytes closely -Will need gastric emptying study if patient can stay off narcotics for period of time. # Uncontrolled hyperglycemia likely 2/2 to gastroparesis -Hx of DM type I -Last hospital stay, patient had several episodes of hypoglycemia, so will be careful not to start long acting insulin too early. -BS 390, VBG 7.41, ketones neg -HbA1c 7.1, compliant with home medications -Started on IVFs, Q6H ISS, Q6H blood sugar checks, NPO currently #Hyperkalemia, acute -C/w hydration -F/u AM labs # Leukocytosis likey 2/2 to dehydration, reactive -WBC 19K, afebrile, no s/s of infection -F/u UA, BCx -C/w IVFs for now, AM CBC # Small pleural based irregularity with linear fibrosis possibly 2/2 to chronic scarring and small acute atelectasis -CT chest above -Recommending follow-up chest CT at 6-9 months. #Iron deficiency anemia, chronic -H/H stable at 11.6/39.4 -Last admission she needed 2 units PRBC -No s/s of bleeding -Iron low, 13 last admission -Start iron BID when taking food -Would benefit from venofer infusion o/p -Monitor CBC closely #Hypertension -Stable -C/w treatment above, pain regimen #Pseudohyponatremia 2/2 to hyperglycemia -Sodium corrected with current blood sugar -C/w treatment above for hyperglycemia, IVFs, follow labs daily # Chronic low back pain -Recent lower back surgery -Pain worsened with dehydration -C/w home pain meds. # Tobacco use -Nicotine patch # Depression/anxiety -Stable -C/w home fluoxetine #GI px. -PPI IV #DVT px -Enoxaparin DISPOSITION: Admitted as acute inpatient. Plan is home when medically improved. Vital Signs Vital Signs Date Time Temp Pulse Resp B/P (MAP) Pulse Ox O2 Delivery O2 Flow Rate FiO2 10/21/20 10:00 97.0 96 24 138/82 (100) 100 Room Air Laboratory Data Labs 24H Laboratory Tests 2 10/21/20 10:31: POC Glucose (Misc Panel) 390H, POC Sodium (Misc Panel) 133L, POC Potassium (Misc Panel) 5.2H, POC Chloride (Misc Panel) 98, POC Total CO2 (Misc Panel) 25.0, POC Blood Urea Nitrogen (Misc Panel 11, POC Ionized Calcium (Misc Panel) 4.1L, POC Creatinine (Misc Panel) 0.6, POC Hematocrit (Misc Panel) 43.0 10/21/20 10:37: Nucleated Red Blood Cells % (auto) 0.0, Total Bilirubin 0.5, Direct Bilirubin < 0.1, Aspartate Amino Transf (AST/SGOT) 31, Alanine Aminotransferase (ALT/SGPT) 17, Alkaline Phosphatase 91, Total Protein 8.3H, Albumin 3.2, Albumin/Globulin Ratio 0.6L, Lipase 25L 10/21/20 11:15: Blood Gas Bicarbonate Standard 22.9, Venous Blood pH 7.412, Venous Blood Partial Pressure CO2 35.6L, Venous Blood Partial Pressure O2 145.3H, Venous Blood Total Carbon Dioxide 23.3L, Venous Blood HCO3 22.2L, Venous Blood Oxygen Saturation 99.5H, Venous Blood Base Excess -1.9 10/21/20 13:22: Urine Opiates Screen POSITIVEH, Urine Methadone Screen NEGATIVE, Urine Barbiturates Screen NEGATIVE, Urine Phencyclidine Screen NEGATIVE, Urine Amphetamines Screen NEGATIVE, Urine Benzodiazepines Screen NEGATIVE, Urine Cocaine Metabolite Screen NEGATIVE, Urine Cannabinoids Screen NEGATIVE CBC/BMP Laboratory Tests 10/21/20 10:37 Home Medications Scheduled Diclofenac Sodium (Diclofenac Sodium) 75 Mg Tablet.dr, 75 MG PO BID Fluoxetine Hcl (Fluoxetine HCl) 40 Mg Capsule, 40 MG PO DAILY Gabapentin (Gabapentin) 600 Mg Tablet, 600 MG PO TID Insulin Glargine,Hum.rec.anlog (Basaglar Kwikpen U-100) 100 Unit/1 Ml Insuln.pen, 17 UNIT SC DAILY Insulin Lispro (Admelog) 100 Unit/1 Ml Vial, 1 DOSE SC AC PER SLIDING SCALE Methocarbamol (Methocarbamol) 500 Mg Tablet, 500 MG PO BID Mirtazapine (Remeron) 15 Mg Tablet, 15 MG PO QHS Tizanidine HCl (Tizanidine HCl) 4 Mg Tablet, 4 MG PO QID Scheduled PRN Hydrocodone/Acetaminophen (Hydrocodone-Acetamin 7.5-325) 1 Each Tablet, 1 TAB PO Q6H PRN for PAIN MAY TAKE TWO TABLETS NEEDED Allergies Coded Allergies: No Known Allergies (Verified , 09/14/04) A-FIB/CHADSVASC A-FIB History Current/History of A-Fib/PAF?: No Age/Risk Factor Scoring CHADSVASC: CHADSVASC Response (Comments) Value Age Risk Factor Age < 65 years old 0 Gender Risk Factor Female 1 Hx of CHF No 0 Hx of HTN No 0 Hx of Stroke/TIA/or VTE No 0 Hx of Diabetes Yes 1 Hx of Vascular Disease No 0 Total 2 Treatment Treatment ordered: Other Other anticoagulant ordered: enoxaparin Ana Gastelum MD Oct 21, 2020 14:56
[2020-10-21] MEDS ORDERED: GLUCAGON INJ 1MG VIAL SC PRN (15:00)
[2020-10-21] MEDS ORDERED: ACETAMINOPHEN TAB 650MG DOSE (2X325MG) PO PRN (15:00)
[2020-10-21] MEDS ORDERED: ONDANSETRON 4MG/2ML VIAL IV PRN ×2 (15:00→16:00)
[2020-10-21] MEDS ORDERED: DEXTROSE 50% 50 ML SYRINGE IV PRN (15:00)
[2020-10-21] MEDS ORDERED: HumaLOG INSULIN (NovoLOG) PER UNIT SC SCH (15:00)
[2020-10-21] MEDS ORDERED: GLUCOSE 4GM CHEW TABLET PO PRN (15:00)
[2020-10-21] MEDS ORDERED: NICOTINE 14 MG/24 HR TRANSDERMAL TD ONE (15:15)
[2020-10-21] MEDS: ANEXSIA, NORCO 7.5MG/325MG TABLET(HYDROCODONE/APAP) PO PRN ×2 (15:22→21:22)
[2020-10-21] MEDS: METOCLOPRAMIDE INJ 10MG/2ML VIAL (J2765 PER 1) IV SCH ×2 (16:00→21:22)
[2020-10-21] MEDS ORDERED: CALCIUM CARBONATE 500 MG CHEW U/D PO PRN (16:00)
[2020-10-21] MEDS: GABAPENTIN 300 MG CAP PO SCH ×2 (16:00→21:23)
[2020-10-21] MEDS: PANTOPRAZOLE 40MG VIAL (C9113 PER 1) IV SCH (16:31)
[2020-10-21 18:00] VITALS: BP 167/67
[2020-10-21] MEDS: tiZANidine 4 MG TAB PO SCH ×2 (18:34→21:23)
[2020-10-21] MEDS: NS 1,000 ML IV SCH ×2 (18:35→21:24)
[2020-10-21] MEDS: FOLIC ACID 1 MG in NS 50 ML IV SCH (19:04)
[2020-10-21] MEDS: methocarbamoL 500 MG TAB PO SCH (21:23)
[2020-10-21] MEDS: MIRTAZAPINE 15 MG TAB PO SCH (21:23)
[2020-10-21 22:00] VITALS: BP 104/58
[2020-10-22] MEDS: HumaLOG INSULIN (NovoLOG) PER UNIT SC SCH ×5 (00:38→23:18)
[2020-10-22] MEDS: ANEXSIA, NORCO 7.5MG/325MG TABLET(HYDROCODONE/APAP) PO PRN ×4 (03:53→22:50)
[2020-10-22 05:51] LABS: HEMATOCRIT 33.3 % (36.0-47.0); HEMOGLOBIN 9.9 g/dl (12.0-15.5); MEAN CORPUSCULAR HEMOGLOBIN 23.9 pg (27.0-33.0); MEAN CORPUSCULAR HGB CONC 29.7 g/dl (32.0-36.5); MEAN CORPUSCULAR VOLUME 80.4 fl (80.0-96.0); PLATELET COUNT, AUTOMATED 421 10^3/uL (150-450); RED BLOOD COUNT 4.14 10^6/uL (4.00-5.40); WHITE BLOOD COUNT 14.8 10^3/uL (4.0-10.0)
[2020-10-22 06:00] VITALS: BP 152/70
[2020-10-22 06:16] LABS: ALBUMIN 2.9 GM/DL (3.2-5.2); ALT/SGPT 11 U/L (12-78); BILIRUBIN,TOTAL 0.3 MG/DL (0.2-1.0); BLOOD UREA NITROGEN 15 MG/DL (7-18); CALCIUM LEVEL 9.2 MG/DL (8.5-10.1); CARBON DIOXIDE LEVEL 24 MEQ/L (21-32); CHLORIDE LEVEL 101 MEQ/L (98-107); CREATININE FOR GFR 0.76 MG/DL (0.55-1.30); GLOMERULAR FILTRATION RATE > 60.0 (>58); GLUCOSE, FASTING 146 MG/DL (70-100); POTASSIUM SERUM 3.8 MEQ/L (3.5-5.1); SODIUM LEVEL 133 MEQ/L (136-145); TOTAL PROTEIN 6.9 GM/DL (6.4-8.2)
[2020-10-22] MEDS: THIAMINE 200MG/2ML VIAL (J3411 PER 100MG) IV SCH (09:16)
[2020-10-22] MEDS: tiZANidine 4 MG TAB PO SCH ×4 (09:17→22:06)
[2020-10-22] MEDS: METOCLOPRAMIDE INJ 10MG/2ML VIAL (J2765 PER 1) IV SCH ×3 (09:17→22:06)
[2020-10-22] MEDS: ENOXAPARIN 40MG/0.4ML SYRINGE (J1650 PER 10MG) SC SCH (09:17)
[2020-10-22] MEDS: FLUoxetine 20 MG CAP PO SCH (09:17)
[2020-10-22] MEDS: GABAPENTIN 300 MG CAP PO SCH ×3 (09:17→22:06)
[2020-10-22] MEDS: methocarbamoL 500 MG TAB PO SCH ×2 (09:17→22:06)
[2020-10-22] MEDS: NS 1,000 ML IV SCH ×2 (10:40→22:07)
[2020-10-22 14:00] VITALS: BP 134/58
--- NOTE | 2020-10-22 14:36 | IPNPDOC ---
Date Seen The patient was seen on 10/22/20. Progress Note SUBJECTIVE: No n/v since last evening. Tolerating clear liquid diet, will advance as tolerated to consistent carb. Keep only on Q6H ISS for now and until eating consistent carb diet. Denies abdominal pain, lightheadedness, fevers, chills, shortness of breath, chest pain. OBJECTIVE: PHYSICAL EXAMINATION: VS: Please see below CONSTITUTIONAL: comfortable, resting in bed, AAO x 3 EYES: PERRLA, EOM intact HENT, MOUTH: Normocephalic, atraumatic, dry mucous membranes NECK: SUPPLE, no JVD, no lymphadenopathy, no carotid bruit CV: Regular rate and rhythm, S1S2 normal, no murmurs/rubs/gallops RESPIRATORY: Clear to auscultation bilaterally, no rales/rhonchi/wheezes GI: BS positive in 4 quadrants, soft, nontender, nondistended, no rebound or guarding, no organomegaly : Deferred MUSCULOSKELETAL: Normal ROM. No cyanosis, clubbing, swelling, joint deformity, extremity edema INTEGUMENTARY: Intact, no rashes, no lesions, no erythema NEUROLOGIC: Cranial Nerves II-XII are intact, no focal deficits LABORATORY DATA: Please see below MICROBIOLOGY: UcX pending Blood cultures- NG IMAGING: CT chest: Small pleural based irregularity with linear fibrosis is nonspecific in appeara nce. Differential diagnosis would include chronic scarring and small acute atelectasis. Consider follow-up chest CT at 6-[address] abd/pelvis: 1. Unchanged irregular pleural based density in the left lower lobe and for which CT examination the chest is recommended as per the revised Fleischner society criteria. The recommendation was made on the 10/08/2020 exam as well. 2. No evidence of acute intra-or intrapelvic disease and no significant change compared to the prior exam with findings as described above. ASSESSMENT: 45-year-old female with past medical history of diabetes mellitus type 1, tobacco use, autoimmune thyroiditis, depression, anxiety, chronic pain in the lower back admitted for further treatment of intractable vomiting likely 2/2 to gastroparesis, uncontrolled hyperglycemia and dehydration. PLAN: # Intractable vomiting likely 2/2 to gastroparesis -Suspicious of gastroparesis from last visit, has not been worked up thoroughly -Discussed need to be off narcotics for gastric emptying study but patient is requesting pain meds for severe back pain -Last admission, discussed case with Dr. Krueger, GI. -C/w IVFS, Reglan, zofran PRN. -Advanced to CLD today, tolerating well. -F/u daily labs and electrolytes closely -Unfortunately, patient does not think she can stop her narcotics at this time to complete gastric emptying study. Will likely need to be done as o/p # Uncontrolled hyperglycemia likely 2/2 to gastroparesis -Hx of DM type I -BS ranging from 149-229 -Last hospital stay, patient had several episodes of hypoglycemia, so will be careful not to start long acting insulin too early and until started consistent carb diet. -HbA1c 7.1, compliant with home medications -Advancing diet today so c/w IVFs, Q6H ISS, Q6H blood sugar checks. When starts consistent NPO currently # Leukocytosis likey 2/2 to dehydration, reactive- improving -WBC 14.8K, afebrile, no s/s of infection -F/u UCx pending - BCx NG -C/w IVFs for now, AM CBC # Small pleural based irregularity with linear fibrosis possibly 2/2 to chronic scarring and small acute atelectasis -CT chest above -Recommending follow-up chest CT at 6-9 months. #Iron deficiency anemia, chronic -H/H stable -Last admission she needed 2 units PRBC -No s/s of bleeding -Iron low, 13 last admission -Start iron BID when taking consistent carb t -Would benefit from venofer infusion o/p -Monitor CBC closely #Hypertension -Stable -C/w treatment above, pain regimen #Pseudohyponatremia 2/2 to hyperglycemia -Sodium corrected with current blood sugar -C/w treatment above for hyperglycemia, IVFs, follow labs daily # Chronic low back pain -Recent lower back surgery -Pain worsened with dehydration -C/w home pain meds. # Tobacco use -Nicotine patch # Depression/anxiety -Stable -C/w home fluoxetine #GI px. -PPI IV #DVT px -Enoxaparin Resolved: #Hyperkalemia, acute DISPOSITION: Admitted as acute inpatient. Plan is home when medically improved. VS, I&O, 24H, Fishbone Vital Signs/I&O Vital Signs Date Time Temp Pulse Resp B/P (MAP) Pulse Ox O2 Delivery O2 Flow Rate FiO2 10/22/20 11:10 16 Room Air 10/22/20 06:00 97.3 91 152/70 (97) 97 I&O- Last 24 Hours up to 6 AM 10/22/20 06:00 Intake Total 1750 ml Output Total 200 ml Balance 1550 ml Laboratory Data 24H LABS Laboratory Tests 2 10/21/20 15:34: Coronavirus (COVID-19)(PCR) NEGATIVE 10/21/20 20:35: Bedside Glucose (Misc Panel) 272H 10/22/20 00:34: Bedside Glucose (Misc Panel) 339H 10/22/20 04:06: Urine Color STRAW, Urine Appearance CLEAR, Urine pH 6.0, Urine Specific [place] 1.010, Urine Protein NEGATIVE, Urine Glucose (UA) 3+H, Urine Ketones 1+H, Urine Blood 1+H, Urine Nitrite NEGATIVE, Urine Bilirubin NEGATIVE, Urine Urobilinogen 0.2, Urine Leukocyte Esterase NEGATIVE, Urine WBC (Auto) 1, Urine RBC (Auto) 1, Urine Hyaline Casts (Auto) 0, Urine Bacteria (Auto) NEGATIVE, Urine Squamous Epithelial Cells 1, Urine Mucus (Auto) SMALL, Urine Sperm (Auto) 10/22/20 05:40: Nucleated Red Blood Cells % (auto) 0.0, Anion Gap 8, Glomerular Filtration Rate > 60.0, Calcium Level 9.2, Total Bilirubin 0.3, Aspartate Amino Transf (AST/SGOT) 6L, Alanine Aminotransferase (ALT/SGPT) 11L, Alkaline Phosphatase 75, Total Protein 6.9, Albumin 2.9L, Albumin/Globulin Ratio 0.7L 10/22/20 11:08: Bedside Glucose (Misc Panel) 229H CBC/BMP Laboratory Tests 10/22/20 05:40 Microbiology Microbiology 10/21/20 Blood Culture, Received Pending 10/21/20 Blood Culture, Received Pending Current Medications Current Medications Medications (Trade) Dose Ordered Sig/Esmer Route PRN Reason Start Time Stop Time Status Last Admin Dose Admin Acetaminophen (Tylenol Tab) 650 mg Q4H PRN PO PAIN OR FEVER 10/21/20 15:00 Acetaminophen/ Hydrocodone Bitart (Anexsia, [place] 7.5mg/325mg) 1 tab Q6H PRN PO PAIN 10/21/20 15:00 10/22/20 10:40 Calcium Carbonate (Tums) 500 mg Q4HP PRN PO INDIGESTION 10/21/20 16:00 10/21/20 17:29 Dextrose (Dextrose 50%) 25 ml ASDIRECTED PRN IV SEE LABEL COMMENTS 10/21/20 15:00 Enoxaparin Sodium (Lovenox) 40 mg DAILY SC 10/22/20 09:00 10/22/20 09:17 Fluoxetine HCl (PROzac) 40 mg DAILY PO 10/21/20 09:00 10/22/20 09:17 Folic Acid 1 mg/ Sodium Chloride 50.2 ml @ 100.4 mls/ hr Q24H IV 10/21/20 17:00 10/21/20 19:04 Gabapentin (Neurontin) 600 mg TID PO 10/21/20 16:00 10/22/20 09:17 Glucagon (Glucagon) 1 mg ASDIRECTED PRN SC SEE LABEL COMMENTS 10/21/20 15:00 Glucose (Glucose) 16 GM ASDIRECTED PRN PO SEE LABEL COMMENTS 10/21/20 15:00 Home Med (Med Rec Complete!) ASDIRECTED XX 10/21/20 14:45 10/21/20 14:46 DC Insulin Human Lispro (HumaLOG INSULIN) SEE PROTOCOL TABLE Q6H SC 10/21/20 15:00 10/22/20 00:04 DC 10/21/20 16:31 Insulin Human Lispro (HumaLOG INSULIN) SEE PROTOCOL TABLE Q6H SC 10/22/20 00:00 10/22/20 11:37 Methocarbamol (Robaxin) 500 mg BID PO 10/21/20 21:00 10/22/20 09:17 Metoclopramide HCl (REGLAN INJection) 10 mg TID IV 10/21/20 16:00 10/22/20 09:17 Mirtazapine (Remeron) 15 mg QHS PO 10/21/20 21:00 10/21/20 21:23 Ondansetron HCl (ZOFRAN INJection) 4 mg Q4HP PRN IV NAUSEA OR VOMITING 10/21/20 15:00 10/21/20 15:13 DC Ondansetron HCl (ZOFRAN INJection) 4 mg Q6HP PRN IV NAUSEA OR VOMITING 10/21/20 16:00 Pantoprazole Sodium (Protonix) 40 mg Q24H IV 10/21/20 16:00 10/21/20 16:31 Sodium Chloride 1,000 ml @ 100 mls/hr Q10H IV 10/21/20 15:00 10/22/20 10:40 Thiamine HCl (VITAMIN B1 INJection) 100 mg DAILY IV 10/22/20 09:00 10/22/20 09:16 Tizanidine HCl (Zanaflex) 4 mg QID PO 10/21/20 17:00 10/22/20 13:16 Allergies Coded Allergies: No Known Allergies (Verified , 09/14/04) Ana Gastelum MD Oct 22, 2020 14:36
[2020-10-22] MEDS: PANTOPRAZOLE 40MG VIAL (C9113 PER 1) IV SCH (16:45)
[2020-10-22] MEDS: FOLIC ACID 1 MG in NS 50 ML IV SCH (16:45)
[2020-10-22 22:00] VITALS: BP 177/82
[2020-10-22] MEDS: MIRTAZAPINE 15 MG TAB PO SCH (22:06)
[2020-10-22 23:00] VITALS: BP 154/68
[2020-10-23] MEDS: ANEXSIA, NORCO 7.5MG/325MG TABLET(HYDROCODONE/APAP) PO PRN ×3 (04:54→18:46)
[2020-10-23 06:00] VITALS: BP 153/85
[2020-10-23 06:07] LABS: HEMATOCRIT 32.3 % (36.0-47.0); HEMOGLOBIN 9.4 g/dl (12.0-15.5); MEAN CORPUSCULAR HGB CONC 29.1 g/dl (32.0-36.5); MEAN CORPUSCULAR VOLUME 82.6 fl (80.0-96.0); PLATELET COUNT, AUTOMATED 367 10^3/uL (150-450); RED BLOOD COUNT 3.91 10^6/uL (4.00-5.40); WHITE BLOOD COUNT 6.9 10^3/uL (4.0-10.0)
[2020-10-23 06:38] LABS: ALBUMIN 2.6 GM/DL (3.2-5.2); ALT/SGPT 10 U/L (12-78); BILIRUBIN,TOTAL 0.3 MG/DL (0.2-1.0); BLOOD UREA NITROGEN 12 MG/DL (7-18); CARBON DIOXIDE LEVEL 23 MEQ/L (21-32); CHLORIDE LEVEL 108 MEQ/L (98-107); GLOMERULAR FILTRATION RATE > 60.0 (>58); GLUCOSE, FASTING 171 MG/DL (70-100); POTASSIUM SERUM 3.6 MEQ/L (3.5-5.1); SODIUM LEVEL 138 MEQ/L (136-145); TOTAL PROTEIN 6.5 GM/DL (6.4-8.2)
[2020-10-23] MEDS: HumaLOG INSULIN (NovoLOG) PER UNIT SC SCH ×3 (06:52→16:56)
[2020-10-23] MEDS: ENOXAPARIN 40MG/0.4ML SYRINGE (J1650 PER 10MG) SC SCH (07:53)
[2020-10-23] MEDS: NS 1,000 ML IV SCH (07:53)
[2020-10-23] MEDS: GABAPENTIN 300 MG CAP PO SCH ×3 (07:54→21:15)
[2020-10-23] MEDS: METOCLOPRAMIDE INJ 10MG/2ML VIAL (J2765 PER 1) IV SCH (07:54)
[2020-10-23] MEDS: FLUoxetine 20 MG CAP PO SCH (07:54)
[2020-10-23] MEDS: tiZANidine 4 MG TAB PO SCH ×4 (07:54→21:15)
[2020-10-23] MEDS: THIAMINE 200MG/2ML VIAL (J3411 PER 100MG) IV SCH (07:55)
[2020-10-23] MEDS: methocarbamoL 500 MG TAB PO SCH ×2 (07:55→21:15)
[2020-10-23] MEDS ORDERED: LEVEMIR (INSULIN DETEMIR) 1 UNITS/0.01ML SC SCH (09:30)
[2020-10-23] MEDS ORDERED: METOCLOPRAMIDE INJ 10MG/2ML VIAL (J2765 PER 1) IV PRN (11:00)
[2020-10-23] MEDS: PANTOPRAZOLE 40MG TAB (PROTONIX) PO SCH (11:51)
[2020-10-23 14:00] VITALS: BP 117/56
[2020-10-23] MEDS ORDERED: METOCLOPRAMIDE 10 MG TAB PO PRN (20:15)
--- NOTE | 2020-10-23 20:18 | IPNPDOC ---
Date Seen The patient was seen on 10/23/20. Progress Note SUBJECTIVE: No n/v over 48 H, tolerating advanced consistent carb diet. BS 56 this evening after getting only 10 U SC of levemir this AM (normal dose 17). Decreased AM dose for 10/24/20. Denies abdominal pain, lightheadedness, fevers, chills, shortness of breath, chest pain. OBJECTIVE: PHYSICAL EXAMINATION: VS: Please see below CONSTITUTIONAL: comfortable, resting in bed, AAO x 3 EYES: PERRLA, EOM intact HENT, MOUTH: Normocephalic, atraumatic, moist mucous membranes NECK: SUPPLE, no JVD, no lymphadenopathy, no carotid bruit CV: Regular rate and rhythm, S1S2 normal, no murmurs/rubs/gallops RESPIRATORY: Clear to auscultation bilaterally, no rales/rhonchi/wheezes GI: BS positive in 4 quadrants, soft, nontender, nondistended, no rebound or guarding, no organomegaly : Deferred MUSCULOSKELETAL: Normal ROM. No cyanosis, clubbing, swelling, joint deformity, extremity edema INTEGUMENTARY: Intact, no rashes, no lesions, no erythema NEUROLOGIC: Cranial Nerves II-XII are intact, no focal deficits LABORATORY DATA: Please see below MICROBIOLOGY: UcX pending Blood cultures- NG IMAGING: CT chest: Small pleural based irregularity with linear fibrosis is nonspecific in ap pearance. Differential diagnosis would include chronic scarring and small acute atelectasis. Consider follow-up chest CT at 6-[address] abd/pelvis: 1. Unchanged irregular pleural based density in the left lower lobe and for which CT examination the chest is recommended as per the revised Fleischner society criteria. The recommendation was made on the 10/08/2020 exam as well. 2. No evidence of acute intra-or intrapelvic disease and no significant change compared to the prior exam with findings as described above. ASSESSMENT: 45-year-old female with past medical history of diabetes mellitus type 1, tobacco use, autoimmune thyroiditis, depression, anxiety, chronic pain in the lower back admitted for further treatment of intractable vomiting likely 2/2 to gastroparesis, uncontrolled hyperglycemia and dehydration. PLAN: # Intractable vomiting likely 2/2 to gastroparesis- resolved -Suspicious of gastroparesis from last visit, has not been worked up thoroughly -Discussed need to be off narcotics for gastric emptying study but patient is requesting pain meds for severe back pain -C/w IVFS, Reglan PRN, zofran PRN. -Advanced to consistent carb today, tolerating well. -F/u daily labs and electrolytes closely -Unfortunately, patient does not think she can stop her narcotics at this time to complete gastric emptying study. Will likely need to be done as o/p #DM type I with hypoglycemia -BS dropped this evening to 57 -Last hospital stay, patient had several episodes of hypoglycemia, so will be careful not to start too much long acting insulin too early and until started consistent carb diet. -HbA1c 7.1, compliant with home medications -Advancing diet to consistent carb -Decreased levemir to 8 U SC AM, c/w ISS, AC/HS blood sugar checks. # Small pleural based irregularity with linear fibrosis possibly 2/2 to chronic scarring and small acute atelectasis -CT chest above -Recommending follow-up chest CT at 6-9 months. #Iron deficiency anemia, chronic -H/H stable -Last admission she needed 2 units PRBC -No s/s of bleeding -Iron low, 13 last admission -Restarted iron BID -Would benefit from venofer infusion o/p -Monitor CBC closely #Hypertension -Stable -C/w treatment above, pain regimen # Chronic low back pain -Recent lower back surgery -C/w home pain meds. # Tobacco use -Nicotine patch # Depression/anxiety -Stable -C/w home fluoxetine #GI px. -PPI #DVT px -Enoxaparin Resolved: #Hyperkalemia, acute # Leukocytosis likey 2/2 to dehydration, reactive #Pseudohyponatremia 2/2 to hyperglycemia DISPOSITION: Admitted as acute inpatient. Plan is home when medically improved, likely in AM . VS, I&O, 24H, Fishbone Vital Signs/I&O Vital Signs Date Time Temp Pulse Resp B/P (MAP) Pulse Ox O2 Delivery O2 Flow Rate FiO2 10/23/20 19:19 18 10/23/20 14:00 98.6 69 117/56 (76) 98 Room Air I&O- Last 24 Hours up to 6 AM 10/23/20 06:00 Intake Total 2160 ml Output Total 1000 ml Balance 1160 ml Laboratory Data 24H LABS Laboratory Tests 2 10/22/20 22:52: Bedside Glucose (Misc Panel) 318H 10/23/20 05:36: Nucleated Red Blood Cells % (auto) 0.0, Anion Gap 7L, Glomerular Filtration Rate > 60.0, Calcium Level 8.0L, Total Bilirubin 0.3, Aspartate Amino Transf (AST/SGOT) 10, Alanine Aminotransferase (ALT/SGPT) 10L, Alkaline Phosphatase 70, Total Protein 6.5, Albumin 2.6L, Albumin/Globulin Ratio 0.7L 10/23/20 12:16: Bedside Glucose (Misc Panel) 218H 10/23/20 16:23: Bedside Glucose (Misc Panel) 179H 10/23/20 19:16: Bedside Glucose (Misc Panel) 57L CBC/BMP Laboratory Tests 10/23/20 05:36 Microbiology Microbiology 10/21/20 Blood Culture - Preliminary, Resulted No Growth after 48 hours. All Specime... 10/21/20 Blood Culture - Preliminary, Resulted No Growth after 48 hours. All Specime... Current Medications Current Medications Medications (Trade) Dose Ordered Sig/Esmer Route PRN Reason Start Time Stop Time Status Last Admin Dose Admin Acetaminophen (Tylenol Tab) 650 mg Q4H PRN PO PAIN OR FEVER 10/21/20 15:00 Acetaminophen/ Hydrocodone Bitart (Anexsia, [place] 7.5mg/325mg) 1 tab Q6H PRN PO PAIN 10/21/20 15:00 10/23/20 18:46 Calcium Carbonate (Tums) 500 mg Q4HP PRN PO INDIGESTION 10/21/20 16:00 10/21/20 17:29 Dextrose (Dextrose 50%) 25 ml ASDIRECTED PRN IV SEE LABEL COMMENTS 10/21/20 15:00 Enoxaparin Sodium (Lovenox) 40 mg DAILY SC 10/22/20 09:00 10/23/20 07:53 Fluoxetine HCl (PROzac) 40 mg DAILY PO 10/21/20 09:00 10/23/20 07:54 Folic Acid 1 mg/ Sodium Chloride 50.2 ml @ 100.4 mls/ hr Q24H IV 10/21/20 17:00 10/23/20 10:47 DC 10/22/20 16:45 Gabapentin (Neurontin) 600 mg TID PO 10/21/20 16:00 10/23/20 16:56 Glucagon (Glucagon) 1 mg ASDIRECTED PRN SC SEE LABEL COMMENTS 10/21/20 15:00 Glucose (Glucose) 16 GM ASDIRECTED PRN PO SEE LABEL COMMENTS 10/21/20 15:00 Home Med (Med Rec Complete!) ASDIRECTED XX 10/21/20 14:45 10/21/20 14:46 DC Insulin Detemir (Levemir Insulin) 10 units QAM SC 10/23/20 09:30 10/23/20 09:51 Insulin Human Lispro (HumaLOG INSULIN) SEE PROTOCOL TABLE Q6H SC 10/21/20 15:00 10/22/20 00:04 DC 10/21/20 16:31 Insulin Human Lispro (HumaLOG INSULIN) SEE PROTOCOL TABLE Q6H SC 10/22/20 00:00 10/23/20 16:56 Methocarbamol (Robaxin) 500 mg BID PO 10/21/20 21:00 10/23/20 07:55 Metoclopramide HCl (REGLAN INJection) 10 mg TID IV 10/21/20 16:00 10/23/20 10:47 DC 10/22/20 22:06 Metoclopramide HCl (REGLAN INJection) 10 mg TIDP PRN IV NAUSEA OR VOMITING 10/23/20 11:00 Mirtazapine (Remeron) 15 mg QHS PO 10/21/20 21:00 10/22/20 22:06 Ondansetron HCl (ZOFRAN INJection) 4 mg Q4HP PRN IV NAUSEA OR VOMITING 10/21/20 15:00 10/21/20 15:13 DC Ondansetron HCl (ZOFRAN INJection) 4 mg Q6HP PRN IV NAUSEA OR VOMITING 10/21/20 16:00 Pantoprazole Sodium (Protonix) 40 mg DAILY PO 10/23/20 09:00 10/23/20 11:51 Pantoprazole Sodium (Protonix) 40 mg Q24H IV 10/21/20 16:00 10/23/20 10:47 DC 10/22/20 16:45 Sodium Chloride 1,000 ml @ 100 mls/hr Q10H IV 10/21/20 15:00 10/23/20 09:21 DC 10/23/20 07:53 Thiamine HCl (VITAMIN B1 INJection) 100 mg DAILY IV 10/22/20 09:00 10/23/20 10:47 DC 10/23/20 07:55 Tizanidine HCl (Zanaflex) 4 mg QID PO 10/21/20 17:00 10/23/20 16:55 Allergies Coded Allergies: No Known Allergies (Verified , 09/14/04) Ana Gastelum MD Oct 23, 2020 20:18
[2020-10-23] MEDS ORDERED: PANT40TA29 PO (20:21)
[2020-10-23] MEDS ORDERED: BASA100I SC (20:21)
[2020-10-23] MEDS ORDERED: FERR325T18 PO (20:21)
[2020-10-23] MEDS ORDERED: METO10TA2 PO (20:21)
[2020-10-23] MEDS ORDERED: DOK1CAP7 PO (20:21)
[2020-10-23] MEDS ORDERED: MIRALAX *UNIT DOSE* 17GM PACKET PO PRN (20:30)
[2020-10-23] MEDS ORDERED: HumaLOG INSULIN (NovoLOG) PER UNIT SC SCH (21:00)
[2020-10-23] MEDS: MIRTAZAPINE 15 MG TAB PO SCH (21:15)
[2020-10-23] MEDS: DOCUSATE SODIUM 100MG CAPSULE PO SCH (21:15)
[2020-10-23] MEDS: FERROUS SULFATE 325MG TAB PO SCH (21:15)
[2020-10-23 22:00] VITALS: BP 163/74
[2020-10-24] MEDS: ANEXSIA, NORCO 7.5MG/325MG TABLET(HYDROCODONE/APAP) PO PRN ×2 (03:08→09:40)
[2020-10-24 05:22] LABS: HEMATOCRIT 32.3 % (36.0-47.0); HEMOGLOBIN 9.8 g/dl (12.0-15.5); MEAN CORPUSCULAR HEMOGLOBIN 24.8 pg (27.0-33.0); MEAN CORPUSCULAR HGB CONC 30.3 g/dl (32.0-36.5); MEAN CORPUSCULAR VOLUME 81.8 fl (80.0-96.0); PLATELET COUNT, AUTOMATED 370 10^3/uL (150-450); RED BLOOD COUNT 3.95 10^6/uL (4.00-5.40); WHITE BLOOD COUNT 7.2 10^3/uL (4.0-10.0)
[2020-10-24 05:50] LABS: ALBUMIN 2.6 GM/DL (3.2-5.2); ALT/SGPT 13 U/L (12-78); BILIRUBIN,TOTAL 0.2 MG/DL (0.2-1.0); BLOOD UREA NITROGEN 6 MG/DL (7-18); CALCIUM LEVEL 8.2 MG/DL (8.5-10.1); CARBON DIOXIDE LEVEL 28 MEQ/L (21-32); CHLORIDE LEVEL 106 MEQ/L (98-107); GLOMERULAR FILTRATION RATE > 60.0 (>58); GLUCOSE, FASTING 226 MG/DL (70-100); POTASSIUM SERUM 3.4 MEQ/L (3.5-5.1); SODIUM LEVEL 139 MEQ/L (136-145); TOTAL PROTEIN 6.6 GM/DL (6.4-8.2)
[2020-10-24 06:00] VITALS: BP 150/58
[2020-10-24] MEDS ORDERED: HumaLOG INSULIN (NovoLOG) PER UNIT SC SCH (07:30)
[2020-10-24] MEDS: DOCUSATE SODIUM 100MG CAPSULE PO SCH (08:08)
[2020-10-24] MEDS: methocarbamoL 500 MG TAB PO SCH (08:08)
[2020-10-24] MEDS: FLUoxetine 20 MG CAP PO SCH (08:08)
[2020-10-24] MEDS: GABAPENTIN 300 MG CAP PO SCH (08:08)
[2020-10-24] MEDS: PANTOPRAZOLE 40MG TAB (PROTONIX) PO SCH (08:08)
[2020-10-24] MEDS: FERROUS SULFATE 325MG TAB PO SCH (08:09)
[2020-10-24] MEDS: tiZANidine 4 MG TAB PO SCH (08:09)
[2020-10-24] MEDS: ENOXAPARIN 40MG/0.4ML SYRINGE (J1650 PER 10MG) SC SCH (08:10)
[2020-10-24] MEDS ORDERED: POTASSIUM CHLORIDE 10 MEQ SR TABLET PO SCH (09:00)
[2020-10-24] MEDS ORDERED: LEVEMIR (INSULIN DETEMIR) 1 UNITS/0.01ML SC SCH (09:00)
--- NOTE | 2020-10-24 17:12 | DS.PDOC ---
Discharge Summary General Date of Admission Oct 21, 2020 at 14:50 Date of Discharge 10/24/20 Primary Care Physician: Mary García MD Attending Physician: Ana Gastelum MD Discharge Summary HISTORY OF PRESENT ILLNESS: 45-year-old female with past medical history of diabetes mellitus type 1, tobacco use, autoimmune thyroiditis, depression, anxiety, ? gastroparesis, chronic lower back pain who presented to [facility] for increased n/v which began early this AM. Patient states she had worsened heartburn the evening of 10/20/20 but later fell asleep. When she woke up she had multiple episodes of nausea with vomiting which did not cease at home. She denies blood in vomit, recent illnesses, fevers, chills, diet changes, medication changes, shortness of breath, chest pains. She was recently hospitalized on 10/08- for intractable vomiting likely 2/2 to cannabinoid hyperemesis vs. gastroparesis. Today she returns with very similar symptoms compared to last admission; however, her UDS was neg for cannabinoids this time, so this is unlikely cannab inoid hyperemesis. In the ER, VS were stable. Patient vomited 600-700 mL of clear/light green bile fluid. She was given NS bolus and started on IV fluids, she remained HD stable. WBC 19.9, H/H 11.6/39.4, K 5.2, blood sugar 390. CT abd: 1. Unchanged irregular pleural based density in the left lower lobe and for which CT examination the chest is recommended as per the revised Fleischner society cr iteria- The recommendation was made on the 10/08/2020 exam as well. 2. No evidence of acute intra-or intrapelvic disease and no significant change compared to the prior exam with findings as described above. On evaluation, patient was in moderate distress, uncomfortable, nauseous complaining of chronic back pain worsened by vomiting/dehydration. Patient was admitted for intractable vomiting likely 2/2 to gastroparesis, dehydration, uncontrolled hyperglycemia. HOSPITAL COURSE: Patient had resolution of n/v within 24 hours. She was later advanced in her diet over the next several days. Her long acting levemir was also incorporated slowly with only one episode of hypoglycemia. I gave her the option to hold her narcotics for a gastric emptying study; however, she opted to continue to take h er narcotics as her back pain was too severe. This is likely gastroparesis 2/2 to diabetes and will need further workup as o/p. She was started on reglan TIDPRN and she felt this really helped. On 10/24/20 patient was discharged home without n/v, fevers, chills, abdominal pain, shortness ofbreath, chest pain. She is to follow up with PCP after weekend. Note: She will also need f/u CT for abnormal finding in chest. This can be done by PCP. PAST MEDICAL HISTORY: 1. Diabetes mellitus type 1 2. Tobacco use 3. Autoimmune thyroiditis 4. Depression 5. Anxiety 6. Chronic lower back pain 7. Muscle spasms 8. Gastroparesis PAST SURGICAL HISTORY: 1. L5, S1 back fusion surgery with dora placement, spacer placed Aug 2020 2. C section x 3 FAMILY HISTORY: Father: Healthy. Alive Mother: Breast cancer, COPD. ALive SOCIAL HISTORY: Smoker for 32 years, 6 cig/day- has cut down. Denies alcohol or drug use. Lives with daughter. HCP daughter Carlos Byrd. PCP Mary García, [employer]: Dr. Boyle. Full Code ALLERGIES: Please see below. DISCHARGE MEDICATIONS: Please see below. PHYSICAL EXAMINATION: VS: Please see below CONSTITUTIONAL: comfortable, resting in bed, AAO x 3 EYES: PERRLA, EOM intact HENT, MOUTH: Normocephalic, atraumatic, moist mucous membranes NECK: SUPPLE, no JVD, no lymphadenopathy, no carotid bruit CV: Regular rate and rhythm, S1S2 normal, no murmurs/rubs/gallops RESPIRATORY: Clear to auscultation bilaterally, no rales/rhonchi/wheezes GI: BS positive in 4 quadrants, soft, nontender, nondistended, no rebound or guarding, no organomegaly : Deferred MUSCULOSKELETAL: Normal ROM. No cyanosis, clubbing, swelling, joint deformity, extremity edema INTEGUMENTARY: Intact, no rashes, no lesions, no erythema NEUROLOGIC: Cranial Nerves II-XII are intact, no focal deficits LABORATORY DATA: Please see below MICROBIOLOGY: UcX pending Blood cultures- NG IMAGING: CT chest: Small pleural based irregularity with linear fibrosis is nonspecific in appearance. Differential diagnosis would include chronic scarring and small acute atelectasis. Consider follow-up chest CT at 6-[address] abd/pelvis: 1. Unchanged irregular pleural based density in the left lower lobe and for which CT examination the chest is recommended as per the revised Fleischner society criteria. The recommendation was made on the 10/08/2020 exam as well. 2. No evidence of acute intra-or intrapelvic disease and no significant change compared to the prior exam with findings as described above. ASSESSMENT: 45-year-old female with past medical history of diabetes mellitus type 1, tobacco use, autoimmune thyroiditis, depression, anxiety, chronic pain in the lower back admitted for further treatment of intractable vomiting likely 2/2 to gastroparesis, uncontrolled hyperglycemia and dehydration. PLAN: # Intractable vomiting likely 2/2 to gastroparesis- resolved -Suspicious of gastroparesis from last visit, has not been worked up thoroughly -Tolerating consistent carb diet well -F/u daily labs and electrolytes closely -Unfortunately, patient does not think she can stop her narcotics at this time to complete gastric emptying study. Will likely need to be done as o/p -D/c home today with reglan TID PRN #DM type I with hypoglycemia -BS dropped one time to 57, since her BS have been elevated or normal. -Last hospital stay, patient had several episodes of hypoglycemia, so will be careful not to start too much long acting insulin too early and until started consistent carb diet. -HbA1c 7.1, compliant with home medications b -D/c with levemir to 8 U SC AM, ISS, close monitoring of BS and f/u with her PCP # Small pleural based irregularity with linear fibrosis possibly 2/2 to chronic scarring and small acute atelectasis -CT chest above -Recommending follow-up chest CT at 6-9 months. #Iron deficiency anemia, chronic -H/H stable -Last admission she needed 2 units PRBC -No s/s of bleeding -Iron low, 13 last admission -Restarted iron BID -Would benefit from venofer infusion o/p -Monitor CBC closely #Hypertension -Stable -C/w treatment above, pain regimen # Chronic low back pain -Recent lower back surgery -C/w home pain meds. # Tobacco use -Nicotine patch # Depression/anxiety -Stable -C/w home fluoxetine Resolved: #Hyperkalemia, acute # Leukocytosis likey 2/2 to dehydration, reactive #Pseudohyponatremia 2/2 to hyperglycemia DISPOSITION: Discharged home today in improved condition. Patient is to f/u with PCP after weekend. TIME SPENT ON DISCHARGE: Greater than 30 minutes. Vital Signs/I&Os Vital Signs Date Time Temp Pulse Resp B/P (MAP) Pulse Ox O2 Delivery O2 Flow Rate FiO2 10/24/20 10:10 16 Room Air 10/24/20 06:00 98.3 72 150/58 (88) 98 I&O- Last 24 Hours up to 6 AM 10/24/20 06:00 Intake Total 2690 ml Output Total 2300 ml Balance 390 ml Laboratory Data Labs 24H Laboratory Tests 2 10/23/20 19:16: Bedside Glucose (Misc Panel) 57L 10/23/20 19:46: Bedside Glucose (Misc Panel) 63L 10/23/20 20:35: Bedside Glucose (Misc Panel) 127H 10/24/20 00:24: Bedside Glucose (Misc Panel) 115H 10/24/20 05:02: Nucleated Red Blood Cells % (auto) 0.0, Anion Gap 5L, Glomerular Filtration Rate > 60.0, Calcium Level 8.2L, Total Bilirubin 0.2, Aspartate Amino Transf (AST/SGOT) 8, Alanine Aminotransferase (ALT/SGPT) 13, Alkaline Phosphatase 69, Total Protein 6.6, Albumin 2.6L, Albumin/Globulin Ratio 0.7L 10/24/20 05:35: Bedside Glucose (Misc Panel) 255H 10/24/20 07:36: Bedside Glucose (Misc Panel) 338H CBC/BMP Laboratory Tests 10/24/20 05:02 FSBS Laboratory Tests Test 10/23/20 19:16 10/23/20 19:46 10/23/20 20:35 10/24/20 00:24 Range/Units Bedside Glucose (Misc Panel) 57 63 127 115 70-105 MG/DL Test 10/24/20 05:35 10/24/20 07:36 Range/Units Bedside Glucose (Misc Panel) 255 338 70-105 MG/DL Microbiology Microbiology 10/21/20 Blood Culture - Preliminary, Resulted No Growth after 72 hours. All specime... 10/21/20 Blood Culture - Preliminary, Resulted No Growth after 72 hours. All specime... Discharge Medications Scheduled Diclofenac Sodium (Diclofenac Sodium) 75 Mg Tablet.dr, 75 MG PO BID, (Reported) Docusate Sodium (Dok) 100 Mg Capsule, 100 MG PO BID Ferrous Sulfate (Ferrous Sulfate) 325 Mg Tablet, 325 MG PO BID Fluoxetine Hcl (Fluoxetine HCl) 40 Mg Capsule, 40 MG PO DAILY, (Reported) Gabapentin (Gabapentin) 600 Mg Tablet, 600 MG PO TID, (Reported) Insulin Glargine,Hum.rec.anlog (Basaglar Kwikpen U-100) 100 Unit/1 Ml Insuln.pen, 8 UNIT SC DAILY Insulin Lispro (Admelog) 100 Unit/1 Ml Vial, 1 DOSE SC AC, (Reported) PER SLIDING SCALE Methocarbamol (Methocarbamol) 500 Mg Tablet, 500 MG PO BID, (Reported) Mirtazapine (Remeron) 15 Mg Tablet, 15 MG PO QHS, (Reported) Pantoprazole Sodium (Pantoprazole Sodium) 40 Mg Tablet.dr, 40 MG PO DAILY Tizanidine HCl (Tizanidine HCl) 4 Mg Tablet, 4 MG PO QID, (Reported) Scheduled PRN Hydrocodone/Acetaminophen (Hydrocodone-Acetamin 7.5-325) 1 Each Tablet, 1 TAB PO Q6H PRN for PAIN, (Reported) MAY TAKE TWO TABLETS NEEDED Metoclopramide HCl (Metoclopramide HCl) 10 Mg Tablet, 10 MG PO TIDP PRN for NAUSEA OR VOMITING Allergies Coded Allergies: No Known Allergies (Verified , 09/14/04) Ana Gastelum MD Oct 24, 2020 17:12
== END 2020-10-24 11:36 | disposition home or self-care (01) | DRG 48 ==
LOC: M ED 10:00 → M ED INP 14:50 → M MSPAV 17:56
PROVIDERS: ADMIT Internal Medicine; ATTEND Internal Medicine
DX: E10.43 Type 1 diabetes mellitus with diabetic autonomic (poly)neuropathy (principal); E10.649 Type 1 diabetes mellitus with hypoglycemia without coma; E10.65 Type 1 diabetes mellitus with hyperglycemia; D50.9 Iron deficiency anemia, unspecified; F17.210 Nicotine dependence, cigarettes, uncomplicated; I10 Essential (primary) hypertension; J84.10 Pulmonary fibrosis, unspecified; E87.5 Hyperkalemia; K31.84 Gastroparesis; E06.3 Autoimmune thyroiditis; F32.9 Major depressive disorder, single episode, unspecified; F41.9 Anxiety disorder, unspecified; E86.0 Dehydration; M54.5 Low back pain; Z98.1 Arthrodesis status; Z79.4 Long term (current) use of insulin; Z79.899 Other long term (current) drug therapy; Z20.828 Contact with and (suspected) exposure to other viral communicable diseases

== ENCOUNTER 2020-12-04 17:40 | Inpatient (IN) | payer OTHER ==
[~2020-12-04] VITALS: Ht 162.6 cm; Wt 60.9 kg
[~2020-12-04 17:40] MED LIST changes: +DICL75TA PO; +DOK1CAP7 PO; +FERR325T18 PO; +GABA-282; -GABA-843; +HYDR-3716 PO; +METH-1164 PO; +METH-1165 PO; -METH1TAB40 PO; -METH750T2 PO; +METO10TA2 PO; +PANT40TA29 PO
--- OUTSIDE RECORDS SUMMARY | 2020-12-04 17:52 | CCD | Continuity of Care Document ---
Author Author Eli [facility] Organization Unknown Address [facility] [address], [address] [place] [address] Phone [phone] Care Team Providers Care [facility] Name Role Phone Elías Gordon MD [facility] [phone] No PCP [facility] Unavailable Problems Description No Information Available Social History Type Date Description Comments Sex Unknown Allergies, Adverse Reactions, Alerts Description No Information Available Medications Description No Information Available Immunizations Description No Information Available Vital Signs Description No Information Available Results Description No Information Available Procedures Date Code Description Status 11/06/2020 57049 Insertion Interbody Biomechanica l Device; Each Interspace Completed 11/06/2020 35039 Pelvic Fixation Other Than Sacru m Completed 11/06/2020 82743 Spinal Instrumentation Posterior Segmental, 3-6 Segments Completed 11/06/2020 37163 Add'l Interspace And Segment Com pleted 11/06/2020 94612 Arthrodesis,Combined Posterior O r Posterolateral Tech Completed 11/06/2020 78712 Osteotomy Spine Posterior Or Pos terolateral 3 Col, Lumbar Completed 11/06/2020 61251 Autograft For Spine Surgery, Str uctural/Bicortical/Tricortical Completed Medical Devices Description No Information Available Encounters Type Date Location Provider Dx Diagnosis Office Visit 11/03/2020 11:15a [facility] Covid-19 Testing Z20.828 Contact w and exposure to ot h viral communicable diseases Assessments Date Code Description Provider 11/06/2020 M43.16 Spondylolisthesis, lumbar region Brendon Hartley DNP 11/06/2020 T84.216A Breakdown (mechanica l) of internal fixation device of vertebrae, initial encounter Brendon Hartley DNP 11/06/2020 T84.226A Displacement of inte rnal fixation device of vertebrae, initial encounter Brendon Hartley DNP 11/04/2020 M43.17 Spondylolisthesis, lumbosacral r egion [facility] 11/03/2020 Z20.828 Contact with and (reina spected) exposure to other viral communicable diseases Alvino Mak MD 11/03/2020 Z20.828 Contact with and (reina spected) exposure to other viral communicable diseases Covid-19 Testing Plan of Treatment No Information Available Functional Status Description No Information Available Mental Status Description No Information Available Referrals Description No Information Available
--- OUTSIDE RECORDS SUMMARY | 2020-12-04 17:52 | CCD | Continuity of Care Document ---
Author Author Eli GALEAS [employer]JECT[employer] DEVELOPER Organization Unknown Address [address] [place] [address] Phone [phone] Care Team Providers Care Poleyard Supervisor Name Role Phone Mary García MD AUT [phone] Problems Description No Information Available Social History Type Date Description Comments Sex Unknown Tobacco Use Start: Unknown Never Used Smokeless Tobacco ETOH Use Denies alcohol use Tobacco Use Start: Unknown Patient is a current smoker, smo kes every day 8 cigarettes per day Recreational Drug Use Denies Drug Use Smoking Status Reviewed: 11/02/20 Patient is a current smoker, smokes every day 8 cigarettes per day Exercise Type/Frequency Exercises sporadically Tattoo/Piercing Pierced ears Tattoo/Piercing Nose Tattoo/Piercing Tattoo multiple Sun Exposure Moderate amount of sun exposure Seat Belt/Car Seat Always uses seat belt Bike Helmet Never Smoke Alarms Yes Smoke Alarms Carbon Monoxide Detector: Yes Allergies, Adverse Reactions, Alerts Active Allergies Reaction Severity Comments Date Morphine vomiting 09/21/2020 Oxycontin vomiting 09/21/2020 Fentanyl vomiting 09/21/2020 Inactive Allergies NKDA 07/31/2018 Medications Active Medications SIG Qnty Indications Ordering Provide r Date Mirtazapine 30mg Tablets take one tablet by mouth every day at bedtime 30tabs Milady Galeas F NP 11/02/2020 Basaglar Kwikpen 100 Unit/ML Solution Pen-Inject inject 8 units under the skin daily. Decreased with this hos pital visit. Unknown 10/24/2020 Metoclopramide HCL 10mg Tablets one tab by mouth before meals meals as needed. for nausea/vomiting Unknown 10/24/2020 Docusate Sodium 100mg Capsules take one capsule by mouth twice a day to soften stool while on iron Unknown 10/24/2020 Diclofenac Sodium 75mg Tablets DR 1 by mouth twice a day Unknown 10/24/2020 Ferrous Sulfate 325(65Fe) mg Table ts 1 by mouth twice a day Unknown 10/24/2020 Pantoprazole Sodium 40mg Tablets D R take one tablet by mouth every day Unknown Percocet 7.5-325mg Tablets 1-2 tabs every 6 hours a day as needed for back pain Unknown 10/24/2020 Tizanidine HCL 4mg Capsules 1 by mouth four times a day Unknown 10/11/2020 Gabapentin 300mg Capsules 2 tablets (600 mg) 3 times a day as for pain Unknown Fluoxetine HCL 40mg Capsules take one capsule by mouth every day 30caps Milady Galeas FNP 12/03/2019 Humalog 100Unit/ML Solution per sliding scale prior to each meal Unknown 000 Methocarbamol 500mg Tablets Take one tablet by mouth twice a day Unknown History Medications Methylprednisolone 4mg Tablets Taper dose ? Ortho started this. (started during an ED visit, took one day and then was admitted and has not taken) Unknown 10/11/2020 - 10/13/2020 Percocet 5-325mg Tablets 1 tab by mouth every 6 hours as needed for pain Unknown 10/11/2020 - 10/26/2020 Toujeo Solostar 300U nit/ML Solution Pen-Inject inject 25 units in morning Unknown 1 - 09/21/2020 Gabapentin 300mg Capsules take one tablet by mouth three times a day Unknown 09/17 - 10/12/2020 Hydrocodone-Acetaminophen 5-325mg Tablets 1- 2 tab by mouth every 4 hours as needed for pain Max dose 12/24 hours 30tabs Unknown 09/17/2020 - 09/27/2020 Basaglar Kwikpen 100 Unit/ML Solution Pen-Inject inject 25 units under the skin once daily Unknown 09/17/2020 - 10/12/2020 Immunizations CPT Code Status Date Vaccine Lot # [id number] Given 09/02/2020 Influenza Virus Vaccine, Quadrivalent,age 3 and up,multidose vial [id number] Given 09/05/2019 Influenza Virus Vaccine, Quadrivalent,age 3 and up,multidose vial [id number] Given 08/30/2018 Influenza Virus Vaccine, Quadrivalent,age 3 and up,multidose vial [id number] Vital Signs Date Vital Result Comment 11/02/2020 3:48pm BP Systolic 150 mmHg BP Diastolic 80 mmHg BP Systolic Recheck 162 mmHg BP Diastolic Recheck 88 mmHg Heart Rate 93 /min Body Temperature 97.0 F Respiratory Rate 20 /min Height 64.0 inches 5'4" Weight 142.38 lb O2 % BldC Oximetry 98 % Peak Expiratory Flow Rate 361 Estimated Peak Flow Rate Prosser Body Weight 120 lb BMI (Body Mass Index) 24.4 kg/m2 10/13/2020 1:10pm BP Systolic 185 mmHg sobbing and c rying BP Diastolic 74 mmHg sobbing and crying Heart Rate 90 /min Body Temperature 97.3 F Respiratory Rate 16 /min Height 64.0 inches 5'4" Weight 144.50 lb Peak Expiratory Flow Rate 361 Estimated Peak Flow Rate [place]sser Body Weight 120 lb BMI (Body Mass Index) 24.8 kg/m2 Results Test Acquired Date Facility Test Result H/L Range Note Drug Eval Toxicology ED Only 10/21/2020 [place] [address] [phone] Amphetamines Level Urine NEGATIVE Normal Negativ e Barbiturates Urine NEGATIVE Normal Negative Benzodiazepines Urine NEGATIVE Normal Negative Cannabinoids Urine NEGATIVE Normal Negative Cocaine Metabolite Urine NEGATIVE Normal Negative Methadone Urine NEGATIVE Normal Negative Opiates Urine POSITIVE High Negative Phencyclidine Urine NEGATIVE Normal Negative 1 Venous Blood Gas 10/21/2020 [place] [address] [phone] Venous PH 7.412 units Normal 7.330-7.430 Venous Partial Pressure Co2 35.6 mmHg Low 38.0-50.0 Venous Partial Pressure O2 145.3 mmHg High 30.0-50.0 Venous Total Co2 23.3 mEq/L Low 24.0-28.0 Venous Hco3 22.2 mEq/L Low 23.0-27.0 Venous Base Excess -1.9 Normal -2.0-2.0 Venous Standard Hco3 22.9 mEq/L Normal Venous O2 Saturation 99.5 % High 60.0-80.0 Complete Blood Count 10/21/2020 [place] [address] [phone] White Blood Count 19.9 10 High 4.0-10.0 Red Blood Count 4.81 10 Normal 4.00-5.40 Hemoglobin 11.6 g/dL Low 12.0-15.5 Hematocrit 39.4 % Normal 36.0-47.0 Mean Corpuscular Volume 81.9 fl Normal 80.0-96.0 Mean Corpuscular Hemoglobin 24.1 pg Low 27.0-33.0 Mean Corpuscular HGB Conc 29.4 g/dL Low 32.0-36.5 Red Cell Distribution Width 20.6 % High 11.5-14.5 Platelet Count, Automated 478 10 High 150-450 Nucleated Red Blood Cell % 0.0 % Normal 0-0 Liver Profile 10/21/2020 [place] [address] [phone] Ast/Sgot 31 U/L Normal 7-37 Alt/SGPT 17 U/L Normal 12-78 Alkaline Phosphatase 91 U/L Normal 45-117 Bilirubin,Total 0.5 mg/dL Normal 0.2-1.0 Bilirubin,Direct < 0.1 mg/dL Normal 0.0-0.2 Total Protein 8.3 GM/DL High 6.4-8.2 Albumin 3.2 GM/DL Normal 3.2-5.2 Albumin/Globulin Ratio 0.6 Low 1.2-2.2 Laboratory test finding 10/21/2020 [place] [address] [phone] Lipase 25 U/L Low 73-393 Istat Chem8+ Panel 10/21/2020 Patient Service [place] [id number] [phone] iSTAT HCT 43.0 % Normal 38.0-51.0 iSTAT Glucose 390 mg/dL High 70-105 iSTAT Sodium 133 mEq/L Low 136-145 iSTAT Potassium 5.2 mEq/L High 3.5-5.1 iSTAT CA++ 4.1 mg/dL Low 4.5-5.3 iSTAT Chloride 98 mEq/L Normal 98-109 iSTAT Co2 25.0 MM/L Normal 23.0-27.0 iSTAT BUN 11 mg/dL Normal 8-26 iSTAT Creatinine 0.6 mg/dL Normal 0.6-1.3 Laboratory test finding 10/08/2020 [place] [address] [phone] Bedside Glucose 419 mg/dL High 70-105 Laboratory test finding 10/08/2020 [place] [address] [phone] Ferritin 20 NG/ML Normal 8-252 Total Iron Binding Capacit 10/08/2020 [place] [address] [phone] Iron (Fe) 18 g/dL Low 50-170 Total Iron Binding Capacity 407 g/dL Normal 250-450 Percent Saturation 4.4 % Low 13.2-45.0 Laboratory test finding 10/08/2020 [place] [address] [phone] Phosphorus Level 3.3 mg/dL Normal 2.5-4.9 Magnesium Level 1.8 mg/dL Normal 1.8-2.4 Hemoglobin A1c 10/08/2020 [place] [address] [phone] Hemoglobin A1c 7.1 % Normal 2 Estimated Average Glucose 157 mg/dL High 60-110 Laboratory test finding 10/08/2020 [place] [address] [phone] Acetone/Ketone 42.40 mg/dL High <2.81 Lipase 33 U/L Low 73-393 Osmolality Serum 307 MOSM/KG High 275-295 HCG, Serum Quantitative < 1.0 MIU/ML Normal 3 Basic Metabolic Profile 10/08/2020 Patient Service [place] [id number] [phone] Glucose, Fasting 443 mg/dL Critical high 70-100 Blood Urea Nitrogen 17 mg/dL Significant change down 7-18 Creatinine For GFR 0.90 mg/dL Normal 0.55-1.30 Glomerular Filtration Rate > 60.0 Normal >58 4 Sodium Level 133 mEq/L Low 136-145 Potassium Serum 4.3 mEq/L Normal 3.5-5.1 Chloride Level 97 mEq/L Low 98-107 Carbon Dioxide Level 21 mEq/L Normal 21-32 Anion Gap 15 mEq/L Normal 8-16 Calcium Level 9.4 mg/dL Normal 8.5-10.1 Liver Profile 10/08/2020 [place] [address] [phone] Ast/Sgot 8 U/L Normal 7-37 Alt/SGPT 14 U/L Normal 12-78 Alkaline Phosphatase 112 U/L Normal 45-117 Bilirubin,Total 0.4 mg/dL Normal 0.2-1.0 Bilirubin,Direct < 0.1 mg/dL Normal 0.0-0.2 Total Protein 8.5 GM/DL High 6.4-8.2 Albumin 3.4 GM/DL Normal 3.2-5.2 Albumin/Globulin Ratio 0.7 Low 1.2-2.2 Venous Blood Gas 10/08/2020 [place] [address] [phone] Venous PH 7.353 units Normal 7.330-7.430 Venous Partial Pressure Co2 36.1 mmHg Low 38.0-50.0 Venous Partial Pressure O2 29.3 mmHg Low 30.0-50.0 Venous Total Co2 20.7 mEq/L Low 24.0-28.0 Venous Hco3 19.6 mEq/L Low 23.0-27.0 Venous Base Excess -5.4 Low -2.0-2.0 Venous Standard Hco3 19.3 mEq/L Normal Venous O2 Saturation 49.3 % Low 60.0-80.0 CBC With Differential 10/08/2020 [place] [address] [phone] White Blood Count 12.8 10 High 4.0-10.0 Red Blood Count 3.78 10 Low 4.00-5.40 Hemoglobin 8.2 g/dL Low 12.0-15.5 Hematocrit 29.1 % Low 36.0-47.0 Mean Corpuscular Volume 77.0 fl Low 80.0-96.0 Mean Corpuscular Hemoglobin 21.7 pg Low 27.0-33.0 Mean Corpuscular HGB Conc 28.2 g/dL Low 32.0-36.5 Red Cell Distribution Width 17.0 % High 11.5-14.5 Platelet Count, Automated 500 10 High 150-450 Neutrophils % 85.3 % High 36.0-66.0 Lymph % 8.2 % Low 24.0-44.0 [place] % 5.1 % High 0.0-5.0 Eos % 0.0 % Normal 0.0-3.0 Baso % 0.7 % Normal 0.0-1.0 Immature Granulocyte % 0.7 % Normal 0-3.0 Nucleated Red Blood Cell % 0.0 % Normal 0-0 Neutrophils # 11.0 10 High 1.5-8.5 Lymph # 1.1 10 Low 1.5-5.0 [place] # 0.7 10 Normal 0.0-0.8 Eos # 0.0 10 Normal 0.0-0.5 Baso # 0.1 10 Normal 0.0-0.2 Laboratory test finding 10/08/2020 [place] [address] [phone] Bedside Glucose 388 mg/dL High 70-105 Ua W/ Reflex To Culture 10/08/2020 Patient Service Center [place] [id number] [phone] Appearance, Urine RFX CLEAR Normal Clear Color, Urine RFX STRAW Normal Yellow PH,Urine RFX 6.0 units Normal 5.0-9.0 Specific [place] Ur Auto RFX 1.023 Normal 1.002-1.035 Protein, Urine Auto RFX NEGATIVE mg/dL Normal Negative Glucose, Urine (Ua) Auto RFX 3+ mg/dL High Negative Ketone, Urine Auto RFX 2+ mg/dL High Negative Urobilinogen, Urine Auto RFX 0.2 mg/dL Normal 0.0-2.0 Bilirubin, Urine Auto RFX NEGATIVE Normal Negative Nitrite, Urine Auto RFX NEGATIVE Normal Negative Leukocyte Esterase Ur Auto RFX NEGATIVE Normal Negative Blood, Urine Blood RFX 2+ High Negative WBC, Urine Auto RFX 2 /HPF Normal 0-3 RBC, Urine Auto RFX 13 /HPF High 0-3 Bacteria, Urine Auto RFX NEGATIVE Normal Negative Squam Epithelial Cell Ur Aurfx 0 /HPF Normal 0-6 Hyaline Cast, Urine Auto RFX 0 /LPF Normal 0-1 Laboratory test finding 10/08/2020 [place] [address] [phone] Bedside Glucose 254 mg/dL High 70-105 Laboratory test finding 10/08/2020 Patient [facility] Center [place] [id number] [phone] Bedside Glucose 275 mg/dL High 70-105 Laboratory test finding 10/08/2020 [place] [address] [phone] Sars Covid-19 Amplification NEGATIVE Normal Nega tive 5 Laboratory test finding 10/06/2020 [place] [address] [phone] Erythrocyte Sedimentation Rate 70 mm/hr High 0 -20 CBC With Differential 10/06/2020 Patient Service Ce nter [place] [id number] [phone] White Blood Count 8.7 10 Normal 4.0-10.0 Red Blood Count 3.70 10 Low 4.00-5.40 Hemoglobin 8.0 g/dL Low 12.0-15.5 Hematocrit 28.6 % Low 36.0-47.0 Mean Corpuscular Volume 77.3 fl Low 80.0-96.0 Mean Corpuscular Hemoglobin 21.6 pg Low 27.0-33.0 Mean Corpuscular HGB Conc 28.0 g/dL Low 32.0-36.5 Red Cell Distribution Width 17.0 % High 11.5-14.5 Platelet Count, Automated 517 10 High 150-450 Neutrophils % 69.6 % High 36.0-66.0 Lymph % 20.1 % Low 24.0-44.0 [place] % 5.7 % High 0.0-5.0 Eos % 2.6 % Normal 0.0-3.0 Baso % 1.7 % High 0.0-1.0 Immature Granulocyte % 0.3 % Normal 0-3.0 Nucleated Red Blood Cell % 0.0 % Normal 0-0 Neutrophils # 6.1 10 Normal 1.5-8.5 Lymph # 1.8 10 Normal 1.5-5.0 [place] # 0.5 10 Normal 0.0-0.8 Eos # 0.2 10 Normal 0.0-0.5 Baso # 0.2 10 Normal 0.0-0.2 Laboratory test finding 10/06/2020 [place] [address] [phone] C Reactive Protein Quantitativ 0.85 mg/dL High 0 .00-0.30 Basic Metabolic Profile 10/06/2020 Patient Service Center [facility] [place] [address] [phone] Glucose, Fasting 223 mg/dL High 70-100 Blood Urea Nitrogen 9 mg/dL Normal 7-18 Creatinine For GFR 0.79 mg/dL Normal 0.55-1.30 Glomerular Filtration Rate > 60.0 Normal >58 6 Sodium Level 135 mEq/L Low 136-145 Potassium Serum 4.0 mEq/L Normal 3.5-5.1 Chloride Level 102 mEq/L Normal 98-107 Carbon Dioxide Level 25 mEq/L Normal 21-32 Anion Gap 8 mEq/L Normal 8-16 Calcium Level 8.7 mg/dL Normal 8.5-10.1 Hemoglobin A1c Panel 09/02/2020 [facility] [address] [facility], [address] [place] [address] [phone] Hemoglobin A1c 8.1 % High 4.8-5.6 7, 8 CBC With Auto Diff 09/02/2020 [facility] [address] [facility], [address] [place] [address] [phone] WBC 9.4 x10E3/uL 3.4-10.8 9 RBC 3.95 x10E6/uL 3.77-5.28 10 Hemoglobin 9.0 g/dL Low 11.1-15.9 11 Hematocrit 30.2 % Low 34.0-46.6 12 MCV 77 fL Low 79-97 13 MCH 22.8 pg Low 26.6-33.0 14 MCHC 29.8 g/dL Low 31.5-35.7 15 RDW 17.0 % High 11.7-15.4 16 Platelets 411 x10E3/uL 150-450 17 Neutrophils 62 % Not Estab. 18 Lymphs 28 % Not Estab. 19 Monocytes 6 % Not Estab. 20 Eos 2 % Not Estab. 21 Basos 2 % Not Estab. 22 Immature Cells TNP 23 Neutrophils (Absolute) 5.9 x10E3/uL 1.4-7.0 24 Lymphs (Absolute) 2.7 x10E3/uL 0.7-3.1 25 Monocytes(Absolute) 0.5 x10E3/uL 0.1-0.9 26 Eos (Absolute) 0.2 x10E3/uL 0.0-0.4 27 Baso (Absolute) 0.2 x10E3/uL 0.0-0.2 28 Immature Granulocytes 0 % Not Estab. 29 Immature Grans (Abs) 0.0 x10E3/uL 0.0-0.1 30 NRBC TNP 31 Hematology Comments: TNP 32 BMP W/Egfr 09/02/[address] [facility] [id number] [place] [address], [address] [place] [address] [phone] Glucose 147 mg/dL High 65-99 33 BUN 14 mg/dL 6-24 34 Creatinine 1.00 mg/dL 0.57-1.00 35 eGFR If NonAfricn Am 67 mL/min/1.73 >59 36 eGFR If Africn Am 78 mL/min/1.73 >59 37 BUN/Creatinine Ratio 14 9-23 38 Sodium 136 mmol/L 134-144 39 Potassium 4.7 mmol/L 3.5-5.2 40 Chloride 97 mmol/L 96-106 41 Carbon Dioxide, Total 26 mmol/L 20-29 42 Calcium 9.5 mg/dL 8.7-10.2 43 Culture Urine 09/02/[address] [facility] [address] [place] [address], [address] [place], [place] [id number] [phone] Urine Culture, Routine Final report Abnormal 44 Result 1 See Comment: Abnormal 45 Urinalysis, Complete 09/02/[address] [facility] [address] [place] [address], [address] [place], [place] [address]113 [phone] Specific [place] 1.021 1.005-1.030 46 pH 6.0 5.0-7.5 47 Urine-Color Yellow Yellow 48 Appearance Clear Clear 49 WBC Esterase Negative Negative 50 Protein Trace Negative/Trace 51 Glucose Negative Negative 52 Ketones Negative Negative 53 Occult Blood Negative Negative 54 Bilirubin Negative Negative 55 Urobilinogen,Semi-Qn 0.2 mg/dL 0.2-1.0 56 Nitrite, Urine Negative Negative 57 Microscopic Examination See Comment: 58 Microscopic Examination See below: 59 WBC 0-5 /hpf 0 - 5 RBC 0-2 /hpf 0 - 2 Epithelial Cells (non renal) 0-10 /hpf 0 - 10 Epithelial Cells (renal) TNP Casts Present /lpf Abnormal None seen Cast Type Hyaline casts N/A Crystals TNP Crystal Type TNP Mucus Threads Present Not Estab. Bacteria None seen None seen/Few Yeast TNP Trichomonas TNP Comment TNP 1 ALL PRESUMPTIVE POSITIVE FINDINGS ARE UNCONFIRMED THRESHOLD IN NG/ML AMPHETAMINES/METHAMPHET 1000 BARBITURATES 200 BENZODIAZEPINES 200 CANNABINOIDS (THC) 50 COCAINE METABOLITE 300 METHADONE 300 OPIATES 300 PHENCYCLIDINE 25 RESULTS ARE FOR MEDICAL PURPOSES ONLY. ALL URINE SPECIMENS WILL BE SAVED FOR 3 DAYS. IF CONFIRMATION OF A PRESUMPTIVE POSITIVE SCREEN RESULT IS DESIRED, CALL CHEMISTRY ([phone]) AND REQUEST URINE TO BE SENT TO REFERENCE LAB. FOR A LIST OF CLOSELY RELATED COMPOUNDS PLEASE CALL THE LAB. 2 REFERENCE RANGES: <=5.6% NORMAL 5.7-6.4% SUGGESTS IMPAIRED GLUCOSE META BOLISM/PREDIABETIC >= 6.5% ABNORMAL 3 GESTATIONAL AGE APPROXIMATE HCG RANGE (MIU/ML) - 0.2-1 WEEK 5-50 1-2 WEEKS 50-500 2-3 WEEKS 100-5,000 3-4 WEEKS 500-10,000 4-5 WEEKS 1,000-50,000 5-6 WEEKS 10,000-100,000 6-8 WEEKS 15,000-200,000 2-3 MONTHS 10,000-100,00 0 NON FEMALES LESS THAN 3.0 Patient samples may contain human heterophilic antibodies that could react with immunoassays to give falsely elevated or depressed results. This assay has been designed to minimize interference from heterophilic antibodies. Elevated hCG levels have also been associated with trophoblastic disease and nontrophoblastic neoplasms. The possibility of having these diseases should be considered before a diagnosis of is made. This test is not intended for use as a surrogate marker for aiding in the diagnosis or monitoring the treatment of cancer patients. Siemens Invisible Puppy methodology. 4 Units are mL/min/1.73 m2 Chronic Kidney Disease Staging per NKF: Stage I & II GFR >=60 Normal to Mildly Decreased Stage III GFR 30-59 Moderately Decreased Stage IV GFR 15-29 Severely Decreased Stage V GFR <15 Very Little GFR Left ESRD GFR <15 on SUGAR CANE GROWER 5 A false negative result may occur if a specimen is improperly collected, transported or handled. False negative results may also occur if inadequate numbers of organisms are present in the specimen. As with any molecular test, mutations within the target regions of Xpert Xpress SARS-CoV-2 could affect primer and/or probe binding resulting in failure to detect the presence of virus. This test cannot rule out diseases caused by other bacterial or viral pathogens. DISCLAIMER: Testing was performed using the [employer] SARS-CoV-2 test. This test was developed and its performance characteristics determined by [employer]. This test has not been FDA cleared or approved. This test has been authorized by FDA under an Emergency Use Authorization (EUA). This test is only authorized for the duration of time the declaration that circumstances exist justifying the authorization of the emergency use of in vitro diagnostic tests for detection of SARS-CoV-2 virus and/or diagnosis of COVID-19 infection under section 564(b)(1) of the Act, 21 U.S.C. 360bbb-3(b)(1), unless the authorization is terminated or revoked sooner. 6 Units are mL/min/1.73 m2 Chronic Kidney Disease Staging per NKF: Stage I & II GFR >=60 Normal to Mildly Decreased Stage III GFR 30-59 Moderately Decreased Stage IV GFR 15-29 Severely Decreased Stage V GFR <15 Very Little GFR Left ESRD GFR <15 on SUGAR CANE GROWER 7 SRC:ELISEO A courtesy copy of th is report has been sent to the patient, SRC:UC 8 Source of Specimen: UC Prediabetes: 5.7 - 6.4 Diabetes: >6.4 Glycemic control for adults with diabetes: <7.0 9 Source of Specimen: 10 Source of Specimen: 11 Source of Specimen: 12 Source of Specimen: 13 Source of Specimen: UC 14 Source of Specimen: UC 15 Source of Specimen: UC 16 Source of Specimen: UC 17 Source of Specimen: UC 18 Source of Specimen: UC 19 Source of Specimen: UC 20 Source of Specimen: UC 21 Source of Specimen: UC 22 Source of Specimen: UC 23 Source of Specimen: UC 24 Source of Specimen: UC 25 Source of Specimen: UC 26 Source of Specimen: UC 27 Source of Specimen: UC 28 Source of Specimen: UC 29 Source of Specimen: UC 30 Source of Specimen: UC 31 Source of Specimen: 32 Source of Specimen: 33 Source of Specimen: UC 34 Source of Specimen: UC 35 Source of Specimen: UC 36 Source of Specimen: UC 37 Source of Specimen: UC 38 Source of Specimen: UC 39 Source of Specimen: 40 Source of Specimen: 41 Source of Specimen: 42 Source of Specimen: 43 Source of Specimen: 44 Source of Specimen: 45 Source of Specimen: Beta hemolytic Streptococcus, group B 10,000-25,000 colony forming units per m L Penicillin and ampicillin are drugs of choice for treatment of beta-hemolytic streptococcal infections. Susceptibility testing of penicillins and other beta-lactam agents approved by the FDA for treatment of beta-hemolytic streptococcal infections need not be performed routinely because nonsusceptible isolates are extremely rare in any beta-hemolytic streptococcus and have not been reported for Streptococcus pyogenes (group A). (CLSI) 46 Source of Specimen: 47 Source of Specimen: 48 Source of Specimen: 49 Source of Specimen: 50 Source of Specimen: 51 Source of Specimen: 52 Source of Specimen: 53 Source of Specimen: 54 Source of Specimen: 55 Source of Specimen: 56 Source of Specimen: 57 Source of Specimen: 58 Source of Specimen: Microscopic follows if indicated. 59 Source of Specimen: Procedures Date Code Description Status 09/02/2020 49162 EKG Interpretation & Report Comp leted 06/29/2020 [id number] Diabetic Foot Exam Completed 09/05/2019 [id number] Diabetic Foot Exam Completed 11/20/2014 [id number] Mammogram Completed Medical Devices Description No Information Available Encounters Type Date Location Provider Dx Diagnosis Office Visit 11/02/2020 3:15p Main Office Milady Galeas FNP K31.8 4 Gastroparesis E10.9 Type 1 diabetes mellitus wit hout complications F32.9 Major depressive disorder, s sarah episode, unspecified Office Visit 10/13/2020 1:15p Main Office Milady Galeas FNP R11.1 5 Cyclical vomiting syndrome unrelated to migraine 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, lumbar region Office Visit 09/23/2020 10:45a Main Office Hanny Tyson PA E10.9 Type 1 diabetes mellitus without complications 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, lumbar region Office Visit 09/02/2020 2:15p Main Office Hanny Tyson PA Z01.818 Encounter for other preprocedural examination E10.9 Type 1 diabetes mellitus wit hout complications 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, lumbar region I10 Essential (primary) hyperten marco a F17.210 Nicotine dependence, cigaret [place], uncomplicated Z23 Encounter for immunization Assessments Date Code Description Provider 11/02/2020 K31.84 Gastroparesis Milady Galeas FNP 11/02/2020 E10.9 Type 1 diabetes mellitus without complications Milady Galeas FNP 11/02/2020 F32.9 Major depressive disorder Milady Cardoza ch, FNP 10/13/2020 R11.15 Cyclical vomiting syndrome unrel ated to migraine Milady Galeas FNP 10/13/2020 M51.06 Intervertebral disc disorders wi th myelopathy, lumbar region Milady Galeas FNP 09/23/2020 E10.9 Type 1 diabetes mellitus without complications Hanny Tyson PA 09/23/2020 M51.06 Intervertebral disc disorders wi th myelopathy, lumbar region Hanny Tyson PA 09/02/2020 Z01.818 Encounter for other preprocedura l examination Hanny Tyson PA 09/02/2020 E10.9 Type 1 diabetes mellitus without complications Hanny Tyson PA 09/02/2020 M51.06 Intervertebral disc disorders wi th myelopathy, lumbar region Hanny Tyson PA 09/02/2020 I10 Essential (primary) hypertension Hanny Tyson PA 09/02/2020 F17.210 Nicotine dependence, cigarettes, uncomplicated Hanny Tyson PA 09/02/2020 Z23 Encounter for immunization Hanny Garcia PA Plan of Treatment Future Appointment(s):* 12/03/2020 9:30 am - Milady Galeas FNP at Main Office * 03/24/2021 10:15 am - Hanny Tyson PA at Main Office 11/02/2020 - Milady Galeas FNP* K31.84 Gastroparesis* Comments:* Using reglan with relief * E10.9 Type 1 diabetes mellitus without complications* Follow up:* one month * Recommendations:* increase basaglar by 2 units every third day until fasting blood sugar is under 150. * F32.9 Major depressive disorder* Comments:* increase mirtazapine and see response * All * New Medication:* Mirtazapine 30 mg - take one tablet by mouth every day at bedtime Functional Status Functional Condition Comment Date Status Independent with all ADL's Activ e Glasses Active Independent with all IADL's Acti ve Complete lower and upper and lower dentures Active Mental Status Mental Condition Comment Date Status None Active Referrals Description No Information Available
--- OUTSIDE RECORDS SUMMARY | 2020-12-04 17:52 | CCD | Continuity of Care Document ---
Author Author Covid-19 Leslie, Eli Organization Unknown Address [address] [place], [place] [address], [address] [place] [address] Phone [phone] Care Team Providers Care Building Insulation Supervisor Name Role Phone Elías Gordon MD [facility] [phone] No PCP [facility] Unavailable Problems Description No Information Available Social History Type Date Description Comments Sex Unknown Allergies, Adverse Reactions, Alerts Description No Information Available Medications Description No Information Available Immunizations Description No Information Available Vital Signs Description No Information Available Results Description No Information Available Procedures Description No Information Available Medical Devices Description No Information Available Encounters Type Date Location Provider Dx Diagnosis Office Visit 11/03/2020 11:15a [facility] Covid-19 Testing Z20.828 Contact w and exposure to ot h viral communicable diseases Assessments Date Code Description Provider 11/04/2020 M43.17 Spondylolisthesis, lumbosacral r egion [facility] 11/03/2020 Z20.828 Contact with and (reina spected) exposure to other viral communicable diseases Alvino Mak MD 11/03/2020 Z20.828 Contact with and (reina spected) exposure to other viral communicable diseases Covid-19 Testing Plan of Treatment No Information Available Functional Status Description No Information Available Mental Status Description No Information Available Referrals Description No Information Available
--- OUTSIDE RECORDS SUMMARY | 2020-12-04 17:53 | CCD | Continuity of Care Document ---
Author Author Eli GALEAS [employer] WORK[employer] Organization Unknown Address [address] [place] [address] Phone [phone] Care Team Providers Care Hotel Casino Floorperson Name Role Phone Mary García MD AUT [phone] Problems Description No Information Available Social History [...] CPT Code Status Date Vaccine Lot # [id number] Given 09/02/2020 Influenza Virus Vaccine, Quadrivalent,age 3 and up,multidose vial [id number] Given 09/05/2019 Influenza Virus Vaccine, Quadrivalent,age 3 and up,multidose vial [id number] Given 08/30/2018 Influenza Virus Vaccine, Quadrivalent,age 3 and up,multidose vial [id number] Vital Signs Date Vital Result Comment 11/02/2020 3:48pm BP Systolic 150 mmHg BP Diastolic 80 mmHg BP Systolic Recheck 162 mmHg BP Diastolic Recheck 88 mmHg Heart Rate 93 /min Body Temperature 97.0 F Respiratory Rate 20 /min Height 64.0 inches 5'4" Weight 142.38 lb O2 % BldC Oximetry 98 % Peak Expiratory Flow Rate 361 Estimated Peak Flow Rate Ewing Body Weight 120 lb BMI (Body Mass Index) 24.4 kg/m2 10/13/2020 1:10pm BP Systolic 185 mmHg sobbing and c rying BP Diastolic 74 mmHg sobbing and crying Heart Rate 90 /min Body Temperature 97.3 F Respiratory Rate 16 /min Height 64.0 inches 5'4" Weight 144.50 lb Peak Expiratory Flow Rate 361 Estimated Peak Flow Rate Ewing Body Weight 120 lb BMI (Body Mass Index) 24.8 kg/m2 Results Test Acquired Date Facility Test Result H/L Range Note Drug Eval Toxicology ED Only 10/21/2020 [place] [address] [phone] Amphetamines Level Urine NEGATIVE Normal Negativ e Barbiturates Urine NEGATIVE Normal Negative Benzodiazepines Urine NEGATIVE Normal Negative Cannabinoids Urine NEGATIVE Normal Negative Cocaine Metabolite Urine NEGATIVE Normal Negative Methadone Urine NEGATIVE Normal Negative Opiates Urine POSITIVE High Negative Phencyclidine Urine NEGATIVE Normal Negative 1 Venous Blood Gas 10/21/2020 [place] [address] [phone] Venous PH 7.412 units Normal 7.330-7.430 Venous Partial Pressure Co2 35.6 mmHg Low 38.0-50.0 Venous Partial Pressure O2 145.3 mmHg High 30.0-50.0 Venous Total Co2 23.3 mEq/L Low 24.0-28.0 Venous Hco3 22.2 mEq/L Low 23.0-27.0 Venous Base Excess -1.9 Normal -2.0-2.0 Venous Standard Hco3 22.9 mEq/L Normal Venous O2 Saturation 99.5 % High 60.0-80.0 Complete Blood Count 10/21/2020 [place] [address] [phone] White Blood Count 19.9 10 High 4.0-10.0 [...] Normal 0-0 Liver Profile 10/21/2020 [place] [address] [phone] Ast/Sgot 31 U/L Normal 7-37 Alt/SGPT 17 U/L Normal 12-78 Alkaline Phosphatase 91 U/L Normal 45-117 Bilirubin,Total 0.5 mg/dL Normal 0.2-1.0 Bilirubin,Direct < 0.1 mg/dL Normal 0.0-0.2 Total Protein 8.3 GM/DL High 6.4-8.2 Albumin 3.2 GM/DL Normal 3.2-5.2 Albumin/Globulin Ratio 0.6 Low 1.2-2.2 Laboratory test finding 10/21/2020 [place] [address] [phone] Lipase 25 U/L Low 73-393 Istat Chem8+ Panel 10/21/2020 Patient Service [place] [id number] [phone] iSTAT HCT 43.0 % Normal 38.0-51.0 iSTAT Glucose 390 mg/dL High 70-105 iSTAT Sodium 133 mEq/L Low 136-145 iSTAT Potassium 5.2 mEq/L High 3.5-5.1 iSTAT CA++ 4.1 mg/dL Low 4.5-5.3 iSTAT Chloride 98 mEq/L Normal 98-109 iSTAT Co2 25.0 MM/L Normal 23.0-27.0 iSTAT BUN 11 mg/dL Normal 8-26 iSTAT Creatinine 0.6 mg/dL Normal 0.6-1.3 Laboratory test finding 10/08/2020 [place] [address] [phone] Bedside Glucose 419 mg/dL High 70-105 Laboratory test finding 10/08/2020 [place] [address] [phone] Ferritin 20 NG/ML Normal 8-252 Total Iron Binding Capacit 10/08/2020 [place] [address] [phone] Iron (Fe) 18 g/dL Low 50-170 Total Iron Binding Capacity 407 g/dL Normal 250-450 Percent Saturation 4.4 % Low 13.2-45.0 Laboratory test finding 10/08/2020 [place] [address] [phone] Phosphorus Level 3.3 mg/dL Normal 2.5-4.9 Magnesium Level 1.8 mg/dL Normal 1.8-2.4 Hemoglobin A1c 10/08/2020 [place] [address] [phone] Hemoglobin A1c 7.1 % Normal 2 Estimated Average Glucose 157 mg/dL High 60-110 Laboratory test finding 10/08/2020 [place] [address] [phone] Acetone/Ketone 42.40 mg/dL High <2.81 Lipase 33 U/L Low 73-393 Osmolality Serum 307 MOSM/KG High 275-295 HCG, Serum Quantitative < 1.0 MIU/ML Normal 3 Basic Metabolic Profile 10/08/2020 Patient Service [place] [id number] [phone] Glucose, Fasting 443 mg/dL Critical high 70-100 [...] Normal 8.5-10.1 Liver Profile 10/08/2020 [place] [address] [phone] Ast/Sgot 8 U/L Normal 7-37 Alt/SGPT 14 U/L Normal 12-78 Alkaline Phosphatase 112 U/L Normal 45-117 Bilirubin,Total 0.4 mg/dL Normal 0.2-1.0 Bilirubin,Direct < 0.1 mg/dL Normal 0.0-0.2 Total Protein 8.5 GM/DL High 6.4-8.2 Albumin 3.4 GM/DL Normal 3.2-5.2 Albumin/Globulin Ratio 0.7 Low 1.2-2.2 Venous Blood Gas 10/08/2020 [place] [address] [phone] Venous PH 7.353 units Normal 7.330-7.430 Venous Partial Pressure Co2 36.1 mmHg Low 38.0-50.0 Venous Partial Pressure O2 29.3 mmHg Low 30.0-50.0 Venous Total Co2 20.7 mEq/L Low 24.0-28.0 Venous Hco3 19.6 mEq/L Low 23.0-27.0 Venous Base Excess -5.4 Low -2.0-2.0 Venous Standard Hco3 19.3 mEq/L Normal Venous O2 Saturation 49.3 % Low 60.0-80.0 CBC With Differential 10/08/2020 [place] [address] [phone] White Blood Count 12.8 10 High 4.0-10.0 [...] 36.0-66.0 Lymph % 8.2 % Low 24.0-44.0 [place] % 5.1 % High 0.0-5.0 Eos % 0.0 % Normal 0.0-3.0 Baso % 0.7 % Normal 0.0-1.0 Immature Granulocyte % 0.7 % Normal 0-3.0 Nucleated Red Blood Cell % 0.0 % Normal 0-0 Neutrophils # 11.0 10 High 1.5-8.5 Lymph # 1.1 10 Low 1.5-5.0 [place] # 0.7 10 Normal 0.0-0.8 Eos # 0.0 10 Normal 0.0-0.5 Baso # 0.1 10 Normal 0.0-0.2 Laboratory test finding 10/08/2020 [place] [address] [phone] Bedside Glucose 388 mg/dL High 70-105 Ua W/ Reflex To Culture 10/08/2020 Patient [facility] Center [place] [id number] [phone] Appearance, Urine RFX CLEAR Normal Clear Color, Urine RFX STRAW Normal Yellow PH,Urine RFX 6.0 units Normal 5.0-9.0 Specific [place] Ur Auto RFX 1.023 Normal 1.002-1.035 Protein, [...] Laboratory test finding 10/08/2020 [place] [address] [phone] Bedside Glucose 254 mg/dL High 70-105 Laboratory test finding 10/08/2020 [facility] [place] 3552966 [phone] Bedside Glucose 275 mg/dL High 70-105 Laboratory test finding 10/08/2020 [place] [address] [phone] Sars Covid-19 Amplification NEGATIVE Normal Nega tive 5 Laboratory test finding 10/06/2020 [place] [address] [phone] Erythrocyte Sedimentation Rate 70 mm/hr High 0 -20 CBC With Differential 10/06/2020 Patient Service Ce [facility]ter [place] [id number] [phone] White Blood Count 8.7 10 Normal 4.0-10.0 [...] 36.0-66.0 Lymph % 20.1 % Low 24.0-44.0 [place] % 5.7 % High 0.0-5.0 Eos % 2.6 % Normal 0.0-3.0 Baso % 1.7 % High 0.0-1.0 Immature Granulocyte % 0.3 % Normal 0-3.0 Nucleated Red Blood Cell % 0.0 % Normal 0-0 Neutrophils # 6.1 10 Normal 1.5-8.5 Lymph # 1.8 10 Normal 1.5-5.0 [place] # 0.5 10 Normal 0.0-0.8 Eos # 0.2 10 Normal 0.0-0.5 Baso # 0.2 10 Normal 0.0-0.2 Laboratory test finding 10/06/2020 [place] [address] [phone] C Reactive Protein Quantitativ 0.85 mg/dL High 0 .00-0.30 Basic Metabolic Profile 10/06/2020 [facility] [place] [address] [phone] Glucose, Fasting 223 mg/dL High 70-100 Blood [...] Normal 8.5-10.1 Hemoglobin A1c Panel 09/02/2020 [facility] [id number] [facility], [address] [place] [address] [phone] Hemoglobin A1c 8.1 % High 4.8-5.6 7, 8 CBC With Auto Diff 09/02/2020 [facility] [id number] [facility], [address] [place] [address] [phone] WBC 9.4 x10E3/uL 3.4-10.8 9 RBC 3.95 [...] Comments: TNP 32 BMP W/Egfr 09/02/[address] [facility] [id number] [place] [address], [address] [place] [address] [phone] Glucose 147 mg/dL High 65-99 33 BUN [...] mg/dL 8.7-10.2 43 Culture Urine 09/02/[address] [facility] [address] [place] [address], [address] [place], [place] [id number] [phone] Urine Culture, Routine Final report Abnormal 44 Result 1 See Comment: Abnormal 45 Urinalysis, Complete 09/02/[address] [facility] [address] [place] [address], [address] [place], [place] [id number] [phone] Specific [place] 1.021 1.005-1.030 46 pH 6.0 5.0-7.5 47 [...] monitoring the treatment of cancer patients. Siemens [employer] methodology. 4 Units are mL/min/1.73 m2 Chronic Kidney Disease Staging per NKF: Stage I & II GFR >=60 Normal to Mildly Decreased Stage III GFR 30-59 Moderately Decreased Stage IV GFR 15-29 Severely Decreased Stage V GFR <15 Very Little GFR Left ESRD GFR <15 on ACCOUNT RELATIONSHIP MANAGER 5 A false negative result may occur [...] pathogens. DISCLAIMER: Testing was performed using the [employer] SARS-CoV-2 test. This test was developed and its performance characteristics determined by [employer]. This test has not been FDA cleared [...] Little GFR Left ESRD GFR <15 on ACCOUNT RELATIONSHIP MANAGER 7 SRC:ELISEO A courtesy copy of th [...] Specimen: Procedures Date Code Description Status 09/02/2020 16450 EKG Interpretation & Report Comp leted 06/29/2020 [id number] Diabetic Foot Exam Completed 09/05/2019 [id number] Diabetic Foot Exam Completed 11/20/2014 [id number] Mammogram Completed Medical Devices Description No Information Available Encounters Type Date Location Provider Dx Diagnosis Office Visit 10/13/2020 1:15p Main Office Milady [...] Garcia PA Plan of Treatment Future Appointment(s):* 03/24/2021 10:15 am - Hanny Tyson PA at Main Office 11/02/2020 - Milady Galeas FNP* K31.84 Gastroparesis * E10.9 Type 1 diabetes mellitus without complications* Follow up:* one month * Recommendations:* increase basaglar by 2 units every third day until fasting blood sugar is under 150. * F32.9 Major depressive disorder * All * New Medication:* Mirtazapine 30 [...]
--- OUTSIDE RECORDS SUMMARY | 2020-12-04 17:53 | CCD | Continuity of Care Document ---
Author Author Eli HERNANDES M.D. 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 Name Role Phone Mary Hernandes MD AUT [phone] Problems Description No Information Available Social History Type Date Description Comments Sex Unknown Tobacco Use Start: Unknown Never Used Smokeless Tobacco ETOH Use Denies alcohol use Tobacco Use Start: Unknown Patient is a current smoker, smo kes every day 8 cigarettes per day Recreational Drug Use Denies Drug Use Smoking Status Reviewed: 10/13/20 Patient is a current smoker, smokes every [...] SIG Qnty Indications Ordering Provide r Date Gabapentin 300mg Capsules 2 tablets (600 mg) 3 times a day as for pain Unknown Basaglar Kwikpen 100 Unit/ML Solution Pen-Inject inject 10 units under the skin daily. Unk nown 10/11/2020 Tizanidine HCL 4mg Capsules 1 by mouth four times a day Unknown 10/11/2020 Percocet 5-325mg Tablets 1 tab by mouth every 6 hours as needed for pain Unknown 10/11/2020 Mirtazapine 15mg Tablets take one tablet by mouth every day at bedtime 30tabs Pleskach, Milady, Paulina CASH CHECKER 01/13/2020 Fluoxetine HCL 40mg Capsules take one capsule by mouth every day 30caps Milady Galeas, SLAB CONDITIONER SUPERVISOR 12/03/2019 Chantix 1mg Tablets 1 by mouth twice a day 60tabs F17.210 Mary Hernandes M.D. 020 Humalog 100Unit/ML Solution per sliding scale prior to each meal Unknown 000 Methocarbamol 500mg Tablets Take one tablet by mouth twice a day Unknown History Medications Methylprednisolone 4mg Tablets Taper dose ? Ortho started this. (started during an ED visit, took one day and then was admitted and has not taken) Unknown 10/11/2020 - 10/13/2020 Toujeo Solostar 300U nit/ML Solution Pen-Inject inject [...] CPT Code Status Date Vaccine Lot # [id number] Given 09/02/2020 Influenza Virus Vaccine, Quadrivalent,age 3 and up,multidose vial [id number] Given 09/05/2019 Influenza Virus Vaccine, Quadrivalent,age 3 and up,multidose vial [id number] Given 08/30/2018 Influenza Virus Vaccine, Quadrivalent,age 3 and up,multidose vial [id number] Vital Signs Date Vital Result Comment 10/13/2020 1:10pm BP Systolic 185 mmHg sobbing and c rying BP Diastolic 74 mmHg sobbing and crying Heart Rate 90 /min Body Temperature 97.3 F Respiratory Rate 16 /min Height 64.0 inches 5'4" Weight 144.50 lb Peak Expiratory Flow Rate 361 Estimated Peak Flow Rate [place] Body Weight 120 lb BMI (Body Mass Index) 24.8 kg/m2 09/23/2020 10:52am BP Systolic 161 mmHg BP Diastolic 71 mmHg Heart Rate 101 /min Body Temperature 97.5 F Respiratory Rate 22 /min Height 64.0 inches 5'4" Weight 154.38 lb O2 % BldC Oximetry 98 % Peak Expiratory Flow Rate 361 Estimated Peak Flow Rate [place] Body Weight 120 lb BMI (Body Mass Index) 26.5 kg/m2 Results Test Acquired Date Facility Test Result H/L Range Note Drug Eval Toxicology ED Only 10/21/[address] [place] [address] [phone] Amphetamines Level Urine NEGATIVE Normal Negativ e Barbiturates Urine NEGATIVE Normal Negative Benzodiazepines Urine NEGATIVE Normal Negative Cannabinoids Urine NEGATIVE Normal Negative Cocaine Metabolite Urine NEGATIVE Normal Negative Methadone Urine NEGATIVE Normal Negative Opiates Urine POSITIVE High Negative Phencyclidine Urine NEGATIVE Normal Negative 1 Venous Blood Gas 10/21/2020 [place] [address] [phone] Venous PH 7.412 units Normal 7.330-7.430 Venous Partial Pressure Co2 35.6 mmHg Low 38.0-50.0 Venous Partial Pressure O2 145.3 mmHg High 30.0-50.0 Venous Total Co2 23.3 mEq/L Low 24.0-28.0 Venous Hco3 22.2 mEq/L Low 23.0-27.0 Venous Base Excess -1.9 Normal -2.0-2.0 Venous Standard Hco3 22.9 mEq/L Normal Venous O2 Saturation 99.5 % High 60.0-80.0 Complete Blood Count 10/21/2020 [place] [address] [phone] White Blood Count 19.9 10 High 4.0-10.0 [...] Normal 0-0 Liver Profile 10/21/2020 [place] [address] [phone] Ast/Sgot 31 U/L Normal 7-37 Alt/SGPT 17 U/L Normal 12-78 Alkaline Phosphatase 91 U/L Normal 45-117 Bilirubin,Total 0.5 mg/dL Normal 0.2-1.0 Bilirubin,Direct < 0.1 mg/dL Normal 0.0-0.2 Total Protein 8.3 GM/DL High 6.4-8.2 Albumin 3.2 GM/DL Normal 3.2-5.2 Albumin/Globulin Ratio 0.6 Low 1.2-2.2 Laboratory test finding 10/21/2020 [place] [address] [phone] Lipase 25 U/L Low 73-393 Istat Chem8+ Panel 10/21/2020 [place] [address] [phone] iSTAT HCT 43.0 % Normal 38.0-51.0 iSTAT Glucose 390 mg/dL High 70-105 iSTAT Sodium 133 mEq/L Low 136-145 iSTAT Potassium 5.2 mEq/L High 3.5-5.1 iSTAT CA++ 4.1 mg/dL Low 4.5-5.3 iSTAT Chloride 98 mEq/L Normal 98-109 iSTAT Co2 25.0 MM/L Normal 23.0-27.0 iSTAT BUN 11 mg/dL Normal 8-26 iSTAT Creatinine 0.6 mg/dL Normal 0.6-1.3 Laboratory test finding 10/08/2020 [place] [address] [phone] Bedside Glucose 419 mg/dL High 70-105 Laboratory test finding 10/08/2020 [place] [address] [phone] Ferritin 20 NG/ML Normal 8-252 Total Iron Binding Capacit 10/08/2020 [place] [address] [phone] Iron (Fe) 18 g/dL Low 50-170 Total Iron Binding Capacity 407 g/dL Normal 250-450 Percent Saturation 4.4 % Low 13.2-45.0 Laboratory test finding 10/08/2020 [place] [address] [phone] Phosphorus Level 3.3 mg/dL Normal 2.5-4.9 Magnesium Level 1.8 mg/dL Normal 1.8-2.4 Hemoglobin A1c 10/08/2020 [place] [address] [phone] Hemoglobin A1c 7.1 % Normal 2 Estimated Average Glucose 157 mg/dL High 60-110 Laboratory test finding 10/08/2020 [place] [address] [phone] Acetone/Ketone 42.40 mg/dL High <2.81 Lipase 33 U/L Low 73-393 Osmolality Serum 307 MOSM/KG High 275-295 HCG, Serum Quantitative < 1.0 MIU/ML Normal 3 Basic Metabolic Profile 10/08/2020 Patient Service [place] [id number] [phone] Glucose, Fasting 443 mg/dL Critical high 70-100 [...] Normal 8.5-10.1 Liver Profile 10/08/2020 [place] [address] [phone] Ast/Sgot 8 U/L Normal 7-37 Alt/SGPT 14 U/L Normal 12-78 Alkaline Phosphatase 112 U/L Normal 45-117 Bilirubin,Total 0.4 mg/dL Normal 0.2-1.0 Bilirubin,Direct < 0.1 mg/dL Normal 0.0-0.2 Total Protein 8.5 GM/DL High 6.4-8.2 Albumin 3.4 GM/DL Normal 3.2-5.2 Albumin/Globulin Ratio 0.7 Low 1.2-2.2 Venous Blood Gas 10/08/[address] [facility] [place] [address] [phone] Venous PH 7.353 units Normal 7.330-7.430 Venous Partial Pressure Co2 36.1 mmHg Low 38.0-50.0 Venous Partial Pressure O2 29.3 mmHg Low 30.0-50.0 Venous Total Co2 20.7 mEq/L Low 24.0-28.0 Venous Hco3 19.6 mEq/L Low 23.0-27.0 Venous Base Excess -5.4 Low -2.0-2.0 Venous Standard Hco3 19.3 mEq/L Normal Venous O2 Saturation 49.3 % Low 60.0-80.0 CBC With Differential 10/08/[address] [facility] [place] [address] [phone] White Blood Count 12.8 10 High 4.0-10.0 [...] 36.0-66.0 Lymph % 8.2 % Low 24.0-44.0 Beaver % 5.1 % High 0.0-5.0 Eos % 0.0 % Normal 0.0-3.0 Baso % 0.7 % Normal 0.0-1.0 Immature Granulocyte % 0.7 % Normal 0-3.0 Nucleated Red Blood Cell % 0.0 % Normal 0-0 Neutrophils # 11.0 10 High 1.5-8.5 Lymph # 1.1 10 Low 1.5-5.0 Beaver # 0.7 10 Normal 0.0-0.8 Eos # 0.0 10 Normal 0.0-0.5 Baso # 0.1 10 Normal 0.0-0.2 Laboratory test finding 10/08/2020 [place] [address] [phone] Bedside Glucose 388 mg/dL High 70-105 Ua W/ Reflex To Culture 10/08/2020 [place] [address] [phone] Appearance, Urine RFX CLEAR Normal Clear Color, Urine RFX STRAW Normal Yellow PH,Urine RFX 6.0 units Normal 5.0-9.0 Specific [place] Ur Auto RFX 1.023 Normal 1.002-1.035 Protein, [...] Laboratory test finding 10/08/2020 [place] [address] [phone] Bedside Glucose 254 mg/dL High 70-105 Laboratory test finding 10/08/2020 [place] [address] [phone] Bedside Glucose 275 mg/dL High 70-105 Laboratory test finding 10/08/2020 [place] [address] [phone] Sars Covid-19 Amplification NEGATIVE Normal Nega tive 5 Laboratory test finding 10/06/2020 [place] [address] [phone] Erythrocyte Sedimentation Rate 70 mm/hr High 0 -20 CBC With Differential 10/06/2020 [place] [address] [phone] White Blood Count 8.7 10 Normal 4.0-10.0 [...] 36.0-66.0 Lymph % 20.1 % Low 24.0-44.0 Beaver % 5.7 % High 0.0-5.0 Eos % 2.6 % Normal 0.0-3.0 Baso % 1.7 % High 0.0-1.0 Immature Granulocyte % 0.3 % Normal 0-3.0 Nucleated Red Blood Cell % 0.0 % Normal 0-0 Neutrophils # 6.1 10 Normal 1.5-8.5 Lymph # 1.8 10 Normal 1.5-5.0 Beaver # 0.5 10 Normal 0.0-0.8 Eos # 0.2 10 Normal 0.0-0.5 Baso # 0.2 10 Normal 0.0-0.2 Laboratory test finding 10/06/2020 [place] [address] [phone] C Reactive Protein Quantitativ 0.85 mg/dL High 0 .00-0.30 Basic Metabolic Profile 10/06/2020 [place] [address] [phone] Glucose, Fasting 223 mg/dL High 70-100 Blood [...] 8-16 Calcium Level 8.7 mg/dL Normal 8.5-10.1 Urinalysis, Complete 09/02/[address] [facility] [address] [place] [address] [id number] [phone] Specific [place] 1.021 1.005-1.030 7, 8 pH 6.0 5.0-7.5 9 Urine-Color Yellow Yellow 10 Appearance Clear Clear 11 WBC Esterase Negative Negative 12 Protein Trace Negative/Trace 13 Glucose Negative Negative 14 Ketones Negative Negative 15 Occult Blood Negative Negative 16 Bilirubin Negative Negative 17 Urobilinogen,Semi-Qn 0.2 mg/dL 0.2-1.0 18 Nitrite, Urine Negative Negative 19 Microscopic Examination See Comment: 20 Microscopic Examination See below: 21 WBC 0-5 /hpf 0 - 5 RBC 0-2 /hpf 0 - 2 Epithelial Cells (non renal) 0-10 /hpf 0 - 10 Epithelial Cells (renal) TNP Casts Present /lpf Abnormal None seen Cast Type Hyaline casts N/A Crystals TNP Crystal Type TNP Mucus Threads Present Not Estab. Bacteria None seen None seen/Few Yeast TNP Trichomonas TNP Comment TNP Culture Urine 09/02/[address] [facility] [address] [place] [address] [id number] [phone] Urine Culture, Routine Final report Abnormal 22 Result 1 See Comment: Abnormal 23 BMP W/Egfr 09/02/[address] [facility] [address] [place] [phone] Glucose 147 mg/dL High 65-99 24 BUN 14 mg/dL 6-24 25 Creatinine 1.00 mg/dL 0.57-1.00 26 eGFR If NonAfricn Am 67 mL/min/1.73 >59 27 eGFR If Africn Am 78 mL/min/1.73 >59 28 BUN/Creatinine Ratio 14 9-23 29 Sodium 136 mmol/L 134-144 30 Potassium 4.7 mmol/L 3.5-5.2 31 Chloride 97 mmol/L 96-106 32 Carbon Dioxide, Total 26 mmol/L 20-29 33 Calcium 9.5 mg/dL 8.7-10.2 34 CBC With Auto Diff 09/02/[address] [facility] [address] [place] [address], [place] [address] [phone] WBC 9.4 x10E3/uL 3.4-10.8 35 RBC 3.95 x10E6/uL 3.77-5.28 36 Hemoglobin 9.0 g/dL Low 11.1-15.9 37 Hematocrit 30.2 % Low 34.0-46.6 38 MCV 77 fL Low 79-97 39 MCH 22.8 pg Low 26.6-33.0 40 MCHC 29.8 g/dL Low 31.5-35.7 41 RDW 17.0 % High 11.7-15.4 42 Platelets 411 x10E3/uL 150-450 43 Neutrophils 62 % Not Estab. 44 Lymphs 28 % Not Estab. 45 Monocytes 6 % Not Estab. 46 Eos 2 % Not Estab. 47 Basos 2 % Not Estab. 48 Immature Cells TNP 49 Neutrophils (Absolute) 5.9 x10E3/uL 1.4-7.0 50 Lymphs (Absolute) 2.7 x10E3/uL 0.7-3.1 51 Monocytes(Absolute) 0.5 x10E3/uL 0.1-0.9 52 Eos (Absolute) 0.2 x10E3/uL 0.0-0.4 53 Baso (Absolute) 0.2 x10E3/uL 0.0-0.2 54 Immature Granulocytes 0 % Not Estab. 55 Immature Grans (Abs) 0.0 x10E3/uL 0.0-0.1 56 NRBC TNP 57 Hematology Comments: TNP 58 Hemoglobin A1c Panel 09/02/2020 [facility] [address] [facility] [address] [place] [address] [phone] Hemoglobin A1c 8.1 % High 4.8-5.6 59 Laboratory test finding 04/29/2020 [place] [address] [phone] Bedside Glucose 172 mg/dL High 70-105 Laboratory test finding 04/29/2020 [place] [address] [phone] Bedside Glucose 114 mg/dL High 70-105 Laboratory test finding 04/29/2020 [facility] [place], [place] [id number] [phone] Bedside Glucose 91 mg/dL Normal 70-105 Laboratory test finding 04/29/2020 [place] [address] [phone] Bedside Glucose 31 mg/dL Critical low 70-105 60 Laboratory test finding 04/29/2020 [place] [address] [phone] Bedside Glucose 26 mg/dL Critical low 70-105 61 CBC With Differential 04/29/2020 [place] [address] [phone] White Blood Count 6.9 10 Normal 4.0-10.0 Red Blood Count 3.98 10 Low 4.00-5.40 Hemoglobin 9.3 g/dL Low 12.0-15.5 Hematocrit 32.1 % Low 36.0-47.0 Mean Corpuscular Volume 80.7 fl Normal 80.0-96.0 Mean Corpuscular Hemoglobin 23.4 pg Low 27.0-33.0 Mean Corpuscular HGB Conc 29.0 g/dL Low 32.0-36.5 Red Cell Distribution Width 18.6 % High 11.5-14.5 Platelet Count, Automated 394 10 Normal 150-450 Neutrophils % 67.4 % High 36.0-66.0 Lymph % 21.7 % Low 24.0-44.0 Beaver % 6.9 % High 0.0-5.0 Eos % 2.0 % Normal 0.0-3.0 Baso % 1.9 % High 0.0-1.0 Immature Granulocyte % 0.1 % Normal 0-3.0 Nucleated Red Blood Cell % 0.0 % Normal 0-0 Neutrophils # 4.6 10 Normal 1.5-8.5 Lymph # 1.5 10 Normal 1.5-5.0 Beaver # 0.5 10 Normal 0.0-0.8 Eos # 0.1 10 Normal 0.0-0.5 Baso # 0.1 10 Normal 0.0-0.2 Liver Profile 04/29/2020 [place] [address] [phone] Ast/Sgot 20 U/L Normal 7-37 Alt/SGPT 31 U/L Normal 12-78 Alkaline Phosphatase 90 U/L Normal 45-117 Bilirubin,Total 0.1 mg/dL Low 0.2-1.0 Bilirubin,Direct < 0.1 mg/dL Normal 0.0-0.2 Total Protein 7.9 GM/DL Normal 6.4-8.2 Albumin 3.2 GM/DL Normal 3.2-5.2 Albumin/Globulin Ratio 0.7 Low 1.2-2.2 Basic Metabolic Profile 04/29/2020 [place] [address] [phone] Glucose, Fasting 62 mg/dL Low 70-100 Blood Urea Nitrogen 10 mg/dL Normal 7-18 Creatinine For GFR 0.95 mg/dL Normal 0.55-1.30 Glomerular Filtration Rate > 60.0 Normal >58 6 2 Sodium Level 141 mEq/L Normal 136-145 Potassium Serum 3.8 mEq/L Normal 3.5-5.1 Chloride Level 110 mEq/L High 98-107 Carbon Dioxide Level 24 mEq/L Normal 21-32 Anion Gap 7 mEq/L Low 8-16 Calcium Level 8.6 mg/dL Normal 8.5-10.1 Laboratory test finding 04/29/2020 [place] [address] [phone] Thyroid Stimulating Hormone 10.700 uIU/ML High 0 .358-3.740 Free T4 0.75 ng/dL Low 0.76-1.46 Laboratory test finding 04/28/2020 [place] [address] [phone] Bedside Glucose 169 mg/dL High 70-105 1 ALL PRESUMPTIVE POSITIVE FINDINGS ARE UNCONFIRMED [...] monitoring the treatment of cancer patients. Siemens Verican methodology. 4 Units are mL/min/1.73 m2 Chronic Kidney Disease Staging per NKF: Stage I & II GFR >=60 Normal to Mildly Decreased Stage III GFR 30-59 Moderately Decreased Stage IV GFR 15-29 Severely Decreased Stage V GFR <15 Very Little GFR Left ESRD GFR <15 on DATA SECURITY ADMINISTRATOR 5 A false negative result may occur [...] pathogens. DISCLAIMER: Testing was performed using the [employer] SARS-CoV-2 test. This test was developed and its performance characteristics determined by [employer]. This test has not been FDA cleared [...] Little GFR Left ESRD GFR <15 on DATA SECURITY ADMINISTRATOR 7 SRC: A courtesy copy of th is report has been sent to the patient, SRC: 8 Source of Specimen: 9 Source of Specimen: 10 Source of Specimen: 11 Source of Specimen: 12 Source of Specimen: 13 Source of Specimen: 14 Source of Specimen: 15 Source of Specimen: 16 Source of Specimen: 17 Source of Specimen: 18 Source of Specimen: 19 Source of Specimen: 20 Source of Specimen: UC Microscopic follows if indicated. 21 Source of Specimen: 22 Source of Specimen: 23 Source of Specimen: Beta hemolytic Streptococcus, group [...] reported for Streptococcus pyogenes (group A). (CLSI) 24 Source of Specimen: 25 Source of Specimen: 26 Source of Specimen: 27 Source of Specimen: 28 Source of Specimen: 29 Source of Specimen: 30 Source of Specimen: 31 Source of Specimen: 32 Source of Specimen: 33 Source of Specimen: 34 Source of Specimen: 35 Source of Specimen: 36 Source of Specimen: 37 Source of Specimen: 38 Source of Specimen: 39 Source of Specimen: 40 Source of Specimen: 41 Source of Specimen: 42 Source of Specimen: 43 Source of Specimen: 44 Source of Specimen: 45 Source of Specimen: 46 Source of Specimen: 47 Source of Specimen: 48 Source of Specimen: 49 Source of Specimen: 50 Source of Specimen: 51 Source of Specimen: 52 Source of Specimen: 53 Source of Specimen: 54 Source of Specimen: UC 55 Source of Specimen: 56 Source of Specimen: 57 Source of Specimen: UC 58 Source of Specimen: UC 59 Source of Specimen: Prediabetes: 5.7 - 6.4 Diabetes: >6.4 Glycemic control for adults with diabetes: <7.0 60 Doctor Notified Nurse Notified 61 Doctor Notified Nurse Notified 62 Units are mL/min/1.73 m2 Chronic Kidney Disease Staging per NKF: Stage I & II GFR >=60 Normal to Mildly Decreased Stage III GFR 30-59 Moderately Decreased Stage IV GFR 15-29 Severely Decreased Stage V GFR <15 Very Little GFR Left ESRD GFR <15 on DATA SECURITY ADMINISTRATOR Procedures Date Code Description Status 09/02/2020 30239 EKG Interpretation & Report Comp leted 06/29/2020 [id number] Diabetic Foot Exam Completed 09/05/2019 [id number] Diabetic Foot Exam Completed 11/20/2014 [id number] Mammogram Completed Medical Devices Description No Information [...] for immunization Assessments Date Code Description Provider 10/13/2020 R11.15 Cyclical vomiting syndrome unrel ated [...] - Hanny Tyson PA at Main Office 10/13/2020 - Milady Galeas FNP* R11.15 Cyclical vomiting syndrome unrelated to migraine* Comments:* symtpoms resolved, patient feeling well. 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
--- OUTSIDE RECORDS SUMMARY | 2020-12-04 17:53 | CCD | Continuity of Care Document ---
Author Author Eli HERNANDES M.D. 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 REVENUE SERVICE AGENT 12/03/2019 Chantix 1mg Tablets 1 by mouth [...] CPT Code Status Date Vaccine Lot # [id number] Given 09/02/2020 Influenza Virus Vaccine, Quadrivalent,age 3 and up,multidose vial [id number] Given 09/05/2019 Influenza Virus Vaccine, Quadrivalent,age 3 and up,multidose vial [id number] Given 08/30/2018 Influenza Virus Vaccine, Quadrivalent,age 3 and up,multidose vial [id number] Vital Signs Date Vital Result Comment 10/13/2020 1:10pm BP Systolic 185 mmHg sobbing and c rying BP Diastolic 74 mmHg sobbing and crying Heart Rate 90 /min Body Temperature 97.3 F Respiratory Rate 16 /min Height 64.0 inches 5'4" Weight 144.50 lb Peak Expiratory Flow Rate 361 Estimated Peak Flow Rate [place] Body Weight 120 lb BMI (Body Mass Index) 24.8 kg/m2 09/23/2020 10:52am BP Systolic 161 mmHg BP Diastolic 71 mmHg Heart Rate 101 /min Body Temperature 97.5 F Respiratory Rate 22 /min Height 64.0 inches 5'4" Weight 154.38 lb O2 % BldC Oximetry 98 % Peak Expiratory Flow Rate 361 Estimated Peak Flow Rate [place] Body Weight 120 lb BMI (Body Mass Index) 26.5 kg/m2 Results Test Acquired Date Facility Test Result H/L Range Note Drug Eval Toxicology ED Only 10/21/2020 [place] [address] [phone] Amphetamines Level Urine NEGATIVE Normal Negativ e Barbiturates Urine NEGATIVE Normal Negative Benzodiazepines Urine NEGATIVE Normal Negative Cannabinoids Urine NEGATIVE Normal Negative Cocaine Metabolite Urine NEGATIVE Normal Negative Methadone Urine NEGATIVE Normal Negative Opiates Urine POSITIVE High Negative Phencyclidine Urine NEGATIVE Normal Negative 1 Venous Blood Gas 10/21/2020 [place] [address] [phone] Venous PH 7.412 units Normal 7.330-7.430 Venous Partial Pressure Co2 35.6 mmHg Low 38.0-50.0 Venous Partial Pressure O2 145.3 mmHg High 30.0-50.0 Venous Total Co2 23.3 mEq/L Low 24.0-28.0 Venous Hco3 22.2 mEq/L Low 23.0-27.0 Venous Base Excess -1.9 Normal -2.0-2.0 Venous Standard Hco3 22.9 mEq/L Normal Venous O2 Saturation 99.5 % High 60.0-80.0 Complete Blood Count 10/21/2020 [place] [address] [phone] White Blood Count 19.9 10 High 4.0-10.0 [...] Normal 0-0 Liver Profile 10/21/2020 [place] [address] [phone] Ast/Sgot 31 U/L Normal 7-37 Alt/SGPT 17 U/L Normal 12-78 Alkaline Phosphatase 91 U/L Normal 45-117 Bilirubin,Total 0.5 mg/dL Normal 0.2-1.0 Bilirubin,Direct < 0.1 mg/dL Normal 0.0-0.2 Total Protein 8.3 GM/DL High 6.4-8.2 Albumin 3.2 GM/DL Normal 3.2-5.2 Albumin/Globulin Ratio 0.6 Low 1.2-2.2 Laboratory test finding 10/21/2020 [place] [address] [phone] Lipase 25 U/L Low 73-393 Istat Chem8+ Panel 10/21/2020 [place] [address] [phone] iSTAT HCT 43.0 % Normal 38.0-51.0 iSTAT Glucose 390 mg/dL High 70-105 iSTAT Sodium 133 mEq/L Low 136-145 iSTAT Potassium 5.2 mEq/L High 3.5-5.1 iSTAT CA++ 4.1 mg/dL Low 4.5-5.3 iSTAT Chloride 98 mEq/L Normal 98-109 iSTAT Co2 25.0 MM/L Normal 23.0-27.0 iSTAT BUN 11 mg/dL Normal 8-26 iSTAT Creatinine 0.6 mg/dL Normal 0.6-1.3 Laboratory test finding 10/08/2020 [place] [address] [phone] Bedside Glucose 419 mg/dL High 70-105 Laboratory test finding 10/08/2020 [place] [address] [phone] Ferritin 20 NG/ML Normal 8-252 Total Iron Binding Capacit 10/08/2020 [place] [address] [phone] Iron (Fe) 18 g/dL Low 50-170 Total Iron Binding Capacity 407 g/dL Normal 250-450 Percent Saturation 4.4 % Low 13.2-45.0 Laboratory test finding 10/08/2020 [place] [address] [phone] Phosphorus Level 3.3 mg/dL Normal 2.5-4.9 Magnesium Level 1.8 mg/dL Normal 1.8-2.4 Hemoglobin A1c 10/08/2020 [place] [address] [phone] Hemoglobin A1c 7.1 % Normal 2 Estimated Average Glucose 157 mg/dL High 60-110 Laboratory test finding 10/08/2020 [place] [address] [phone] Acetone/Ketone 42.40 mg/dL High <2.81 Lipase 33 U/L Low 73-393 Osmolality Serum 307 MOSM/KG High 275-295 HCG, Serum Quantitative < 1.0 MIU/ML Normal 3 Basic Metabolic Profile 10/08/2020 Patient Service [place] [id number] [phone] Glucose, Fasting 443 mg/dL Critical high 70-100 [...] Normal 8.5-10.1 Liver Profile 10/08/2020 [place] [address] [phone] Ast/Sgot 8 U/L Normal 7-37 Alt/SGPT 14 U/L Normal 12-78 Alkaline Phosphatase 112 U/L Normal 45-117 Bilirubin,Total 0.4 mg/dL Normal 0.2-1.0 Bilirubin,Direct < 0.1 mg/dL Normal 0.0-0.2 Total Protein 8.5 GM/DL High 6.4-8.2 Albumin 3.4 GM/DL Normal 3.2-5.2 Albumin/Globulin Ratio 0.7 Low 1.2-2.2 Venous Blood Gas 10/08/2020 Patient Service [facility] er [facility] [place] [address] [phone] Venous PH 7.353 units Normal 7.330-7.430 Venous Partial Pressure Co2 36.1 mmHg Low 38.0-50.0 Venous Partial Pressure O2 29.3 mmHg Low 30.0-50.0 Venous Total Co2 20.7 mEq/L Low 24.0-28.0 Venous Hco3 19.6 mEq/L Low 23.0-27.0 Venous Base Excess -5.4 Low -2.0-2.0 Venous Standard Hco3 19.3 mEq/L Normal Venous O2 Saturation 49.3 % Low 60.0-80.0 CBC With Differential 10/08/2020 Patient Service Ce nter [facility] [place] [address] [phone] White Blood Count 12.8 10 High 4.0-10.0 [...] 36.0-66.0 Lymph % 8.2 % Low 24.0-44.0 [place] % 5.1 % High 0.0-5.0 Eos % 0.0 % Normal 0.0-3.0 Baso % 0.7 % Normal 0.0-1.0 Immature Granulocyte % 0.7 % Normal 0-3.0 Nucleated Red Blood Cell % 0.0 % Normal 0-0 Neutrophils # 11.0 10 High 1.5-8.5 Lymph # 1.1 10 Low 1.5-5.0 [place] # 0.7 10 Normal 0.0-0.8 Eos # 0.0 10 Normal 0.0-0.5 Baso # 0.1 10 Normal 0.0-0.2 Laboratory test finding 10/08/2020 [place] [address] [phone] Bedside Glucose 388 mg/dL High 70-105 Ua W/ Reflex To Culture 10/08/2020 [place] [address] [phone] Appearance, Urine RFX CLEAR Normal Clear Color, Urine RFX STRAW Normal Yellow PH,Urine RFX 6.0 units Normal 5.0-9.0 Specific [place] Ur Auto RFX 1.023 Normal 1.002-1.035 Protein, [...] Laboratory test finding 10/08/2020 [place] [address] [phone] Bedside Glucose 254 mg/dL High 70-105 Laboratory test finding 10/08/2020 [place] [address] [phone] Bedside Glucose 275 mg/dL High 70-105 Laboratory test finding 10/08/2020 [facility] [place] [address] [phone] Sars Covid-19 Amplification NEGATIVE Normal Nega tive 5 Laboratory test finding 10/06/2020 [place] [address] [phone] Erythrocyte Sedimentation Rate 70 mm/hr High 0 -20 CBC With Differential 10/06/2020 [place] [address] [phone] White Blood Count 8.7 10 Normal 4.0-10.0 [...] 36.0-66.0 Lymph % 20.1 % Low 24.0-44.0 [place] % 5.7 % High 0.0-5.0 Eos % 2.6 % Normal 0.0-3.0 Baso % 1.7 % High 0.0-1.0 Immature Granulocyte % 0.3 % Normal 0-3.0 Nucleated Red Blood Cell % 0.0 % Normal 0-0 Neutrophils # 6.1 10 Normal 1.5-8.5 Lymph # 1.8 10 Normal 1.5-5.0 [place] # 0.5 10 Normal 0.0-0.8 Eos # 0.2 10 Normal 0.0-0.5 Baso # 0.2 10 Normal 0.0-0.2 Laboratory test finding 10/06/2020 [place] [address] [phone] C Reactive Protein Quantitativ 0.85 mg/dL High 0 .00-0.30 Basic Metabolic Profile 10/06/2020 [place] [address] [phone] Glucose, Fasting 223 mg/dL High 70-100 Blood [...] mg/dL Normal 8.5-10.1 Urinalysis, Complete 09/02/[address] [facility] [address] [place] [address] [id number] [phone] Specific [place] 1.021 1.005-1.030 7, 8 pH 6.0 5.0-7.5 [...] TNP Comment TNP Culture Urine 09/02/[address] [facility] [address] [place] [address] [id number] [phone] Urine Culture, Routine Final report Abnormal 22 Result 1 See Comment: Abnormal 23 BMP W/Egfr 09/02/[address] [facility] [address] [place] [address] [phone] Glucose 147 mg/dL High 65-99 24 BUN [...] 34 CBC With Auto Diff 09/02/[address] [facility] [address] [place] [address], [place] [address] [phone] WBC 9.4 x10E3/uL 3.4-10.8 35 RBC 3.95 [...] TNP 58 Hemoglobin A1c Panel 09/02/2020 [facility] [address] [facility], [address] [place] [address] [phone] Hemoglobin A1c 8.1 % High 4.8-5.6 59 Laboratory test finding 04/29/2020 [place] [address] [phone] Bedside Glucose 172 mg/dL High 70-105 Laboratory test finding 04/29/2020 [place] [address] [phone] Bedside Glucose 114 mg/dL High 70-105 Laboratory test finding 04/29/2020 [facility] [place], [place] 9842733 [phone] Bedside Glucose 91 mg/dL Normal 70-105 Laboratory test finding 04/29/2020 [place] [address] [phone] Bedside Glucose 31 mg/dL Critical low 70-105 60 Laboratory test finding 04/29/2020 [place] [address] [phone] Bedside Glucose 26 mg/dL Critical low 70-105 61 CBC With Differential 04/29/2020 [place] [address] [phone] White Blood Count 6.9 10 Normal 4.0-10.0 [...] 36.0-66.0 Lymph % 21.7 % Low 24.0-44.0 [place] % 6.9 % High 0.0-5.0 Eos % 2.0 % Normal 0.0-3.0 Baso % 1.9 % High 0.0-1.0 Immature Granulocyte % 0.1 % Normal 0-3.0 Nucleated Red Blood Cell % 0.0 % Normal 0-0 Neutrophils # 4.6 10 Normal 1.5-8.5 Lymph # 1.5 10 Normal 1.5-5.0 [place] # 0.5 10 Normal 0.0-0.8 Eos # 0.1 10 Normal 0.0-0.5 Baso # 0.1 10 Normal 0.0-0.2 Liver Profile 04/29/2020 [place] [address] [phone] Ast/Sgot 20 U/L Normal 7-37 Alt/SGPT 31 U/L Normal 12-78 Alkaline Phosphatase 90 U/L Normal 45-117 Bilirubin,Total 0.1 mg/dL Low 0.2-1.0 Bilirubin,Direct < 0.1 mg/dL Normal 0.0-0.2 Total Protein 7.9 GM/DL Normal 6.4-8.2 Albumin 3.2 GM/DL Normal 3.2-5.2 Albumin/Globulin Ratio 0.7 Low 1.2-2.2 Basic Metabolic Profile 04/29/2020 [place] [address] [phone] Glucose, Fasting 62 mg/dL Low 70-100 Blood [...] Laboratory test finding 04/29/2020 [facility] [place] [address] [phone] Thyroid Stimulating Hormone 10.700 uIU/ML High 0 .358-3.740 Free T4 0.75 ng/dL Low 0.76-1.46 Laboratory test finding 04/28/2020 [place] [address] [phone] Bedside Glucose 169 mg/dL High 70-105 1 [...] monitoring the treatment of cancer patients. Siemens [employer] methodology. 4 Units are mL/min/1.73 m2 Chronic Kidney Disease Staging per NKF: Stage I & II GFR >=60 Normal to Mildly Decreased Stage III GFR 30-59 Moderately Decreased Stage IV GFR 15-29 Severely Decreased Stage V GFR <15 Very Little GFR Left ESRD GFR <15 on NEGATIVE NOTCHER 5 A false negative result may occur [...] pathogens. DISCLAIMER: Testing was performed using the [employer] SARS-CoV-2 test. This test was developed and its performance characteristics determined by [employer]. This test has not been FDA cleared [...] Little GFR Left ESRD GFR <15 on NEGATIVE NOTCHER 7 SRC: A courtesy copy of th [...] Little GFR Left ESRD GFR <15 on NEGATIVE NOTCHER Procedures Date Code Description Status 09/02/2020 [id number] EKG Interpretation & Report Comp leted 06/29/2020 [id number] Diabetic Foot Exam Completed 09/05/2019 [id number] Diabetic Foot Exam Completed 11/20/2014 [id number] Mammogram Completed Medical Devices Description No Information [...]
--- OUTSIDE RECORDS SUMMARY | 2020-12-04 17:53 | CCD | Continuity of Care Document ---
Author Author Eli HERNANDES M.D. Organization Unknown Address [address] [place] [address] Phone [phone] Care Team Providers Care Evidence Custodian Name Role Phone Mary Hernandes MD AUT [phone] Problems Description No Information Available Social History [...] day at bedtime 30tabs Pleskach, Milady, Paulina FLIGHT AGENT 01/13/2020 Fluoxetine HCL 40mg Capsules take one capsule by mouth every day 30caps Milady Galeas, FILENET ADMIN 12/03/2019 Chantix 1mg Tablets 1 by mouth [...] CPT Code Status Date Vaccine Lot # [id number] Given 09/02/2020 Influenza Virus Vaccine, Quadrivalent,age 3 and up,multidose vial [id number] Given 09/05/2019 Influenza Virus Vaccine, Quadrivalent,age 3 and up,multidose vial [id number] Given 08/30/2018 Influenza Virus Vaccine, Quadrivalent,age 3 and up,multidose vial [id number] Vital Signs Date Vital Result Comment 10/13/2020 1:10pm BP Systolic 185 mmHg sobbing and c rying BP Diastolic 74 mmHg sobbing and crying Heart Rate 90 /min Body Temperature 97.3 F Respiratory Rate 16 /min Height 64.0 inches 5'4" Weight 144.50 lb Peak Expiratory Flow Rate 361 Estimated Peak Flow Rate [place] Body Weight 120 lb BMI (Body Mass Index) 24.8 kg/m2 09/23/2020 10:52am BP Systolic 161 mmHg BP Diastolic 71 mmHg Heart Rate 101 /min Body Temperature 97.5 F Respiratory Rate 22 /min Height 64.0 inches 5'4" Weight 154.38 lb O2 % BldC Oximetry 98 % Peak Expiratory Flow Rate 361 Estimated Peak Flow Rate [place] Body Weight 120 lb BMI (Body Mass Index) 26.5 kg/m2 Results Test Acquired Date Facility Test Result H/L Range Note Drug Eval Toxicology ED Only 10/21/2020 [place] [address] [phone] Amphetamines Level Urine NEGATIVE Normal Negativ e Barbiturates Urine NEGATIVE Normal Negative Benzodiazepines Urine NEGATIVE Normal Negative Cannabinoids Urine NEGATIVE Normal Negative Cocaine Metabolite Urine NEGATIVE Normal Negative Methadone Urine NEGATIVE Normal Negative Opiates Urine POSITIVE High Negative Phencyclidine Urine NEGATIVE Normal Negative 1 Venous Blood Gas 10/21/2020 [place] [address] [phone] Venous PH 7.412 units Normal 7.330-7.430 Venous Partial Pressure Co2 35.6 mmHg Low 38.0-50.0 Venous Partial Pressure O2 145.3 mmHg High 30.0-50.0 Venous Total Co2 23.3 mEq/L Low 24.0-28.0 Venous Hco3 22.2 mEq/L Low 23.0-27.0 Venous Base Excess -1.9 Normal -2.0-2.0 Venous Standard Hco3 22.9 mEq/L Normal Venous O2 Saturation 99.5 % High 60.0-80.0 Complete Blood Count 10/21/2020 [place] [address] [phone] White Blood Count 19.9 10 High 4.0-10.0 [...] Normal 0-0 Liver Profile 10/21/2020 [place] [address] [phone] Ast/Sgot 31 U/L Normal 7-37 Alt/SGPT 17 U/L Normal 12-78 Alkaline Phosphatase 91 U/L Normal 45-117 Bilirubin,Total 0.5 mg/dL Normal 0.2-1.0 Bilirubin,Direct < 0.1 mg/dL Normal 0.0-0.2 Total Protein 8.3 GM/DL High 6.4-8.2 Albumin 3.2 GM/DL Normal 3.2-5.2 Albumin/Globulin Ratio 0.6 Low 1.2-2.2 Laboratory test finding 10/21/2020 [place] [address] [phone] Lipase 25 U/L Low 73-393 Istat Chem8+ Panel 10/21/2020 [place] [address] [phone] iSTAT HCT 43.0 % Normal 38.0-51.0 iSTAT Glucose 390 mg/dL High 70-105 iSTAT Sodium 133 mEq/L Low 136-145 iSTAT Potassium 5.2 mEq/L High 3.5-5.1 iSTAT CA++ 4.1 mg/dL Low 4.5-5.3 iSTAT Chloride 98 mEq/L Normal 98-109 iSTAT Co2 25.0 MM/L Normal 23.0-27.0 iSTAT BUN 11 mg/dL Normal 8-26 iSTAT Creatinine 0.6 mg/dL Normal 0.6-1.3 Laboratory test finding 10/08/2020 [place] [address] [phone] Bedside Glucose 419 mg/dL High 70-105 Laboratory test finding 10/08/2020 [place] [address] [phone] Ferritin 20 NG/ML Normal 8-252 Total Iron Binding Capacit 10/08/2020 [place] [address] [phone] Iron (Fe) 18 g/dL Low 50-170 Total Iron Binding Capacity 407 g/dL Normal 250-450 Percent Saturation 4.4 % Low 13.2-45.0 Laboratory test finding 10/08/2020 [place] [address] [phone] Phosphorus Level 3.3 mg/dL Normal 2.5-4.9 Magnesium Level 1.8 mg/dL Normal 1.8-2.4 Hemoglobin A1c 10/08/2020 [place] [address] [phone] Hemoglobin A1c 7.1 % Normal 2 Estimated Average Glucose 157 mg/dL High 60-110 Laboratory test finding 10/08/2020 [place] [address] [phone] Acetone/Ketone 42.40 mg/dL High <2.81 Lipase 33 U/L Low 73-393 Osmolality Serum 307 MOSM/KG High 275-295 HCG, Serum Quantitative < 1.0 MIU/ML Normal 3 Basic Metabolic Profile 10/08/2020 Patient Service [place] [id number] [phone] Glucose, Fasting 443 mg/dL Critical high 70-100 [...] Normal 8.5-10.1 Liver Profile 10/08/2020 [place] [address] [phone] Ast/Sgot 8 U/L Normal 7-37 Alt/SGPT 14 U/L Normal 12-78 Alkaline Phosphatase 112 U/L Normal 45-117 Bilirubin,Total 0.4 mg/dL Normal 0.2-1.0 Bilirubin,Direct < 0.1 mg/dL Normal 0.0-0.2 Total Protein 8.5 GM/DL High 6.4-8.2 Albumin 3.4 GM/DL Normal 3.2-5.2 Albumin/Globulin Ratio 0.7 Low 1.2-2.2 Venous Blood Gas 10/08/2020 Patient Service Cent er [facility] [place] [address] [phone] Venous PH 7.353 units Normal 7.330-7.430 Venous Partial Pressure Co2 36.1 mmHg Low 38.0-50.0 Venous Partial Pressure O2 29.3 mmHg Low 30.0-50.0 Venous Total Co2 20.7 mEq/L Low 24.0-28.0 Venous Hco3 19.6 mEq/L Low 23.0-27.0 Venous Base Excess -5.4 Low -2.0-2.0 Venous Standard Hco3 19.3 mEq/L Normal Venous O2 Saturation 49.3 % Low 60.0-80.0 CBC With Differential 10/08/2020 Patient Service Ce nter [facility] [place] [address] [phone] White Blood Count 12.8 10 High 4.0-10.0 [...] 36.0-66.0 Lymph % 8.2 % Low 24.0-44.0 [place] % 5.1 % High 0.0-5.0 Eos % 0.0 % Normal 0.0-3.0 Baso % 0.7 % Normal 0.0-1.0 Immature Granulocyte % 0.7 % Normal 0-3.0 Nucleated Red Blood Cell % 0.0 % Normal 0-0 Neutrophils # 11.0 10 High 1.5-8.5 Lymph # 1.1 10 Low 1.5-5.0 [place] # 0.7 10 Normal 0.0-0.8 Eos # 0.0 10 Normal 0.0-0.5 Baso # 0.1 10 Normal 0.0-0.2 Laboratory test finding 10/08/2020 [place] [address] [phone] Bedside Glucose 388 mg/dL High 70-105 Ua W/ Reflex To Culture 10/08/2020 [place] [address] [phone] Appearance, Urine RFX CLEAR Normal Clear Color, Urine RFX STRAW Normal Yellow PH,Urine RFX 6.0 units Normal 5.0-9.0 Specific [place] Ur Auto RFX 1.023 Normal 1.002-1.035 Protein, [...] Laboratory test finding 10/08/2020 [place] [address] [phone] Bedside Glucose 254 mg/dL High 70-105 Laboratory test finding 10/08/2020 [place] [address] [phone] Bedside Glucose 275 mg/dL High 70-105 Laboratory test finding 10/08/2020 [place] [address] [phone] Sars Covid-19 Amplification NEGATIVE Normal Nega tive 5 Laboratory test finding 10/06/2020 [place] [address] [phone] Erythrocyte Sedimentation Rate 70 mm/hr High 0 -20 CBC With Differential 10/06/2020 [place] [address] [phone] White Blood Count 8.7 10 Normal 4.0-10.0 [...] 36.0-66.0 Lymph % 20.1 % Low 24.0-44.0 [place] % 5.7 % High 0.0-5.0 Eos % 2.6 % Normal 0.0-3.0 Baso % 1.7 % High 0.0-1.0 Immature Granulocyte % 0.3 % Normal 0-3.0 Nucleated Red Blood Cell % 0.0 % Normal 0-0 Neutrophils # 6.1 10 Normal 1.5-8.5 Lymph # 1.8 10 Normal 1.5-5.0 [place] # 0.5 10 Normal 0.0-0.8 Eos # 0.2 10 Normal 0.0-0.5 Baso # 0.2 10 Normal 0.0-0.2 Laboratory test finding 10/06/2020 [place] [address] [phone] C Reactive Protein Quantitativ 0.85 mg/dL High 0 .00-0.30 Basic Metabolic Profile 10/06/2020 [place] [address] [phone] Glucose, Fasting 223 mg/dL High 70-100 Blood [...] mg/dL Normal 8.5-10.1 Urinalysis, Complete 09/02/[address] [facility] [address] [place] [address] [id number] [phone] Specific [place] 1.021 1.005-1.030 7, 8 pH 6.0 5.0-7.5 [...] TNP Comment TNP Culture Urine 09/02/[address] [facility] [address] [place] [address] [id number] [phone] Urine Culture, Routine Final report Abnormal 22 Result 1 See Comment: Abnormal 23 BMP W/Egfr 09/02/[address] [facility] [address] [place] [address] [phone] Glucose 147 mg/dL High 65-99 24 BUN [...] 34 CBC With Auto Diff 09/02/[address] [facility] [address] [place] [address], [place] [address] [phone] WBC 9.4 x10E3/uL 3.4-10.8 35 RBC 3.95 [...] TNP 58 Hemoglobin A1c Panel 09/02/2020 [facility] [address] [facility] [address] [place] [address] [phone] Hemoglobin A1c 8.1 % High 4.8-5.6 59 Laboratory test finding 04/29/2020 [place] [address] [phone] Bedside Glucose 172 mg/dL High 70-105 Laboratory test finding 04/29/2020 [place] [address] [phone] Bedside Glucose 114 mg/dL High 70-105 Laboratory test finding 04/29/2020 [facility] [place], [place] 1551667 [phone] Bedside Glucose 91 mg/dL Normal 70-105 Laboratory test finding 04/29/2020 [place] [address] [phone] Bedside Glucose 31 mg/dL Critical low 70-105 60 Laboratory test finding 04/29/2020 [place] [address] [phone] Bedside Glucose 26 mg/dL Critical low 70-105 61 CBC With Differential 04/29/2020 [place] [address] [phone] White Blood Count 6.9 10 Normal 4.0-10.0 [...] 36.0-66.0 Lymph % 21.7 % Low 24.0-44.0 [place] % 6.9 % High 0.0-5.0 Eos % 2.0 % Normal 0.0-3.0 Baso % 1.9 % High 0.0-1.0 Immature Granulocyte % 0.1 % Normal 0-3.0 Nucleated Red Blood Cell % 0.0 % Normal 0-0 Neutrophils # 4.6 10 Normal 1.5-8.5 Lymph # 1.5 10 Normal 1.5-5.0 [place] # 0.5 10 Normal 0.0-0.8 Eos # 0.1 10 Normal 0.0-0.5 Baso # 0.1 10 Normal 0.0-0.2 Liver Profile 04/29/2020 [place] [address] [phone] Ast/Sgot 20 U/L Normal 7-37 Alt/SGPT 31 U/L Normal 12-78 Alkaline Phosphatase 90 U/L Normal 45-117 Bilirubin,Total 0.1 mg/dL Low 0.2-1.0 Bilirubin,Direct < 0.1 mg/dL Normal 0.0-0.2 Total Protein 7.9 GM/DL Normal 6.4-8.2 Albumin 3.2 GM/DL Normal 3.2-5.2 Albumin/Globulin Ratio 0.7 Low 1.2-2.2 Basic Metabolic Profile 04/29/2020 [place] [address] [phone] Glucose, Fasting 62 mg/dL Low 70-100 Blood [...] Laboratory test finding 04/29/2020 [place] [address] [phone] Thyroid Stimulating Hormone 10.700 uIU/ML High 0 .358-3.740 Free T4 0.75 ng/dL Low 0.76-1.46 Laboratory test finding 04/28/2020 [place] [address] [phone] Bedside Glucose 169 mg/dL High 70-105 1 [...] monitoring the treatment of cancer patients. Siemens [employer] methodology. 4 Units are mL/min/1.73 m2 Chronic Kidney Disease Staging per NKF: Stage I & II GFR >=60 Normal to Mildly Decreased Stage III GFR 30-59 Moderately Decreased Stage IV GFR 15-29 Severely Decreased Stage V GFR <15 Very Little GFR Left ESRD GFR <15 on TERMINAL OPERATOR 5 A false negative result may occur [...] pathogens. DISCLAIMER: Testing was performed using the [employer] SARS-CoV-2 test. This test was developed and its performance characteristics determined by [employer] This test has not been FDA cleared [...] Little GFR Left ESRD GFR <15 on TERMINAL OPERATOR 7 SRC: A courtesy copy of th [...] Little GFR Left ESRD GFR <15 on TERMINAL OPERATOR Procedures Date Code Description Status 09/02/2020 [id number] EKG Interpretation & Report Comp leted 06/29/2020 [id number] Diabetic Foot Exam Completed 09/05/2019 [id number] Diabetic Foot Exam Completed 11/20/2014 [id number] Mammogram Completed Medical Devices Description No Information [...]
--- OUTSIDE RECORDS SUMMARY | 2020-12-04 17:54 | CCD | Continuity of Care Document ---
Author Author Eli HERNANDES M.D. 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 Chantix 1mg Tablets 1 by mouth [...] CPT Code Status Date Vaccine Lot # [id number] Given 09/02/2020 Influenza Virus Vaccine, Quadrivalent,age 3 and up,multidose vial [id number] Given 09/05/2019 Influenza Virus Vaccine, Quadrivalent,age 3 and up,multidose vial [id number] Given 08/30/2018 Influenza Virus Vaccine, Quadrivalent,age 3 and up,multidose vial [id number] Vital Signs Date Vital Result Comment 10/13/2020 1:10pm BP Systolic 185 mmHg sobbing and c rying BP Diastolic 74 mmHg sobbing and crying Heart Rate 90 /min Body Temperature 97.3 F Respiratory Rate 16 /min Height 64.0 inches 5'4" Weight 144.50 lb Peak Expiratory Flow Rate 361 Estimated Peak Flow Rate [place] Body Weight 120 lb BMI (Body Mass Index) 24.8 kg/m2 09/23/2020 10:52am BP Systolic 161 mmHg BP Diastolic 71 mmHg Heart Rate 101 /min Body Temperature 97.5 F Respiratory Rate 22 /min Height 64.0 inches 5'4" Weight 154.38 lb O2 % BldC Oximetry 98 % Peak Expiratory Flow Rate 361 Estimated Peak Flow Rate [place] Body Weight 120 lb BMI (Body Mass Index) 26.5 kg/m2 Results Test Acquired Date Facility Test Result H/L Range Note Drug Eval Toxicology ED Only 10/21/2020 [place] [address] [phone] Amphetamines Level Urine NEGATIVE Normal Negativ e Barbiturates Urine NEGATIVE Normal Negative Benzodiazepines Urine NEGATIVE Normal Negative Cannabinoids Urine NEGATIVE Normal Negative Cocaine Metabolite Urine NEGATIVE Normal Negative Methadone Urine NEGATIVE Normal Negative Opiates Urine POSITIVE High Negative Phencyclidine Urine NEGATIVE Normal Negative 1 Venous Blood Gas 10/21/2020 [place] [address] [phone] Venous PH 7.412 units Normal 7.330-7.430 Venous Partial Pressure Co2 35.6 mmHg Low 38.0-50.0 Venous Partial Pressure O2 145.3 mmHg High 30.0-50.0 Venous Total Co2 23.3 mEq/L Low 24.0-28.0 Venous Hco3 22.2 mEq/L Low 23.0-27.0 Venous Base Excess -1.9 Normal -2.0-2.0 Venous Standard Hco3 22.9 mEq/L Normal Venous O2 Saturation 99.5 % High 60.0-80.0 Complete Blood Count 10/21/2020 [place] [address] [phone] White Blood Count 19.9 10 High 4.0-10.0 [...] Normal 0-0 Liver Profile 10/21/2020 [place] [address] [phone] Ast/Sgot 31 U/L Normal 7-37 Alt/SGPT 17 U/L Normal 12-78 Alkaline Phosphatase 91 U/L Normal 45-117 Bilirubin,Total 0.5 mg/dL Normal 0.2-1.0 Bilirubin,Direct < 0.1 mg/dL Normal 0.0-0.2 Total Protein 8.3 GM/DL High 6.4-8.2 Albumin 3.2 GM/DL Normal 3.2-5.2 Albumin/Globulin Ratio 0.6 Low 1.2-2.2 Laboratory test finding 10/21/2020 [place] [address] [phone] Lipase 25 U/L Low 73-393 Istat Chem8+ Panel 10/21/2020 [place] [address] [phone] iSTAT HCT 43.0 % Normal 38.0-51.0 iSTAT Glucose 390 mg/dL High 70-105 iSTAT Sodium 133 mEq/L Low 136-145 iSTAT Potassium 5.2 mEq/L High 3.5-5.1 iSTAT CA++ 4.1 mg/dL Low 4.5-5.3 iSTAT Chloride 98 mEq/L Normal 98-109 iSTAT Co2 25.0 MM/L Normal 23.0-27.0 iSTAT BUN 11 mg/dL Normal 8-26 iSTAT Creatinine 0.6 mg/dL Normal 0.6-1.3 Laboratory test finding 10/08/2020 [place] [address] [phone] Bedside Glucose 419 mg/dL High 70-105 Laboratory test finding 10/08/2020 [place] [address] [phone] Ferritin 20 NG/ML Normal 8-252 Total Iron Binding Capacit 10/08/2020 [place] [address] [phone] Iron (Fe) 18 g/dL Low 50-170 Total Iron Binding Capacity 407 g/dL Normal 250-450 Percent Saturation 4.4 % Low 13.2-45.0 Laboratory test finding 10/08/2020 [place] [address] [phone] Phosphorus Level 3.3 mg/dL Normal 2.5-4.9 Magnesium Level 1.8 mg/dL Normal 1.8-2.4 Hemoglobin A1c 10/08/2020 [place] [address] [phone] Hemoglobin A1c 7.1 % Normal 2 Estimated Average Glucose 157 mg/dL High 60-110 Laboratory test finding 10/08/2020 [place] [address] [phone] Acetone/Ketone 42.40 mg/dL High <2.81 Lipase 33 U/L Low 73-393 Osmolality Serum 307 MOSM/KG High 275-295 HCG, Serum Quantitative < 1.0 MIU/ML Normal 3 Basic Metabolic Profile 10/08/2020 Patient Service [place] [id number] [phone] Glucose, Fasting 443 mg/dL Critical high 70-100 [...] Normal 8.5-10.1 Liver Profile 10/08/2020 [place] [address] [phone] Ast/Sgot 8 U/L Normal 7-37 Alt/SGPT 14 U/L Normal 12-78 Alkaline Phosphatase 112 U/L Normal 45-117 Bilirubin,Total 0.4 mg/dL Normal 0.2-1.0 Bilirubin,Direct < 0.1 mg/dL Normal 0.0-0.2 Total Protein 8.5 GM/DL High 6.4-8.2 Albumin 3.4 GM/DL Normal 3.2-5.2 Albumin/Globulin Ratio 0.7 Low 1.2-2.2 Venous Blood Gas 10/08/2020 [facility] [address] [phone] Venous PH 7.353 units Normal 7.330-7.430 Venous Partial Pressure Co2 36.1 mmHg Low 38.0-50.0 Venous Partial Pressure O2 29.3 mmHg Low 30.0-50.0 Venous Total Co2 20.7 mEq/L Low 24.0-28.0 Venous Hco3 19.6 mEq/L Low 23.0-27.0 Venous Base Excess -5.4 Low -2.0-2.0 Venous Standard Hco3 19.3 mEq/L Normal Venous O2 Saturation 49.3 % Low 60.0-80.0 CBC With Differential 10/08/2020 Patient Service Ce [facility]ter [facility] [address] [phone] White Blood Count 12.8 10 High 4.0-10.0 [...] 36.0-66.0 Lymph % 8.2 % Low 24.0-44.0 Mcpherson % 5.1 % High 0.0-5.0 Eos % 0.0 % Normal 0.0-3.0 Baso % 0.7 % Normal 0.0-1.0 Immature Granulocyte % 0.7 % Normal 0-3.0 Nucleated Red Blood Cell % 0.0 % Normal 0-0 Neutrophils # 11.0 10 High 1.5-8.5 Lymph # 1.1 10 Low 1.5-5.0 Mcpherson # 0.7 10 Normal 0.0-0.8 Eos # 0.0 10 Normal 0.0-0.5 Baso # 0.1 10 Normal 0.0-0.2 Laboratory test finding 10/08/2020 [place] [address] [phone] Bedside Glucose 388 mg/dL High 70-105 Ua W/ Reflex To Culture 10/08/2020 [place] [address] [phone] Appearance, Urine RFX CLEAR Normal Clear Color, Urine RFX STRAW Normal Yellow PH,Urine RFX 6.0 units Normal 5.0-9.0 Specific [place] Ur Auto RFX 1.023 Normal 1.002-1.035 Protein, [...] Laboratory test finding 10/08/2020 [place] [address] [phone] Bedside Glucose 254 mg/dL High 70-105 Laboratory test finding 10/08/2020 [place] [address] [phone] Bedside Glucose 275 mg/dL High 70-105 Laboratory test finding 10/08/2020 [place] [address] [phone] Sars Covid-19 Amplification NEGATIVE Normal Nega tive 5 Laboratory test finding 10/06/2020 [place] [address] [phone] Erythrocyte Sedimentation Rate 70 mm/hr High 0 -20 CBC With Differential 10/06/2020 [place] [address] [phone] White Blood Count 8.7 10 Normal 4.0-10.0 [...] 36.0-66.0 Lymph % 20.1 % Low 24.0-44.0 Mcpherson % 5.7 % High 0.0-5.0 Eos % 2.6 % Normal 0.0-3.0 Baso % 1.7 % High 0.0-1.0 Immature Granulocyte % 0.3 % Normal 0-3.0 Nucleated Red Blood Cell % 0.0 % Normal 0-0 Neutrophils # 6.1 10 Normal 1.5-8.5 Lymph # 1.8 10 Normal 1.5-5.0 Mcpherson # 0.5 10 Normal 0.0-0.8 Eos # 0.2 10 Normal 0.0-0.5 Baso # 0.2 10 Normal 0.0-0.2 Laboratory test finding 10/06/2020 [place] [address] [phone] C Reactive Protein Quantitativ 0.85 mg/dL High 0 .00-0.30 Basic Metabolic Profile 10/06/2020 [place] [address] [phone] Glucose, Fasting 223 mg/dL High 70-100 Blood [...] mg/dL Normal 8.5-10.1 Urinalysis, Complete 09/02/[address] [facility] [address] [place] [address] [id number] [phone] Specific [place] 1.021 1.005-1.030 7, 8 pH 6.0 5.0-7.5 [...] TNP Comment TNP Culture Urine 09/02/[address] [facility] [address] [place] [address] [id number] [phone] Urine Culture, Routine Final report Abnormal 22 Result 1 See Comment: Abnormal 23 BMP W/Egfr 09/02/[address] [facility] [address] [place] [address] [phone] Glucose 147 mg/dL High 65-99 24 BUN [...] 34 CBC With Auto Diff 09/02/[address] [facility] [address] [place] [address], [place] [address] [phone] WBC 9.4 x10E3/uL 3.4-10.8 35 RBC 3.95 [...] TNP 58 Hemoglobin A1c Panel 09/02/2020 [facility] [id number] [facility] [address] [place] [address] [phone] Hemoglobin A1c 8.1 % High 4.8-5.6 59 Laboratory test finding 04/29/2020 [place] [address] [phone] Bedside Glucose 172 mg/dL High 70-105 Laboratory test finding 04/29/2020 [place] [address] [phone] Bedside Glucose 114 mg/dL High 70-105 Laboratory test finding 04/29/2020 [facility] [place], [place] [id number] [phone] Bedside Glucose 91 mg/dL Normal 70-105 Laboratory test finding 04/29/2020 [place] [address] [phone] Bedside Glucose 31 mg/dL Critical low 70-105 60 Laboratory test finding 04/29/2020 [place] [address] [phone] Bedside Glucose 26 mg/dL Critical low 70-105 61 CBC With Differential 04/29/2020 [place] [address] [phone] White Blood Count 6.9 10 Normal 4.0-10.0 [...] 36.0-66.0 Lymph % 21.7 % Low 24.0-44.0 Mcpherson % 6.9 % High 0.0-5.0 Eos % 2.0 % Normal 0.0-3.0 Baso % 1.9 % High 0.0-1.0 Immature Granulocyte % 0.1 % Normal 0-3.0 Nucleated Red Blood Cell % 0.0 % Normal 0-0 Neutrophils # 4.6 10 Normal 1.5-8.5 Lymph # 1.5 10 Normal 1.5-5.0 Mcpherson # 0.5 10 Normal 0.0-0.8 Eos # 0.1 10 Normal 0.0-0.5 Baso # 0.1 10 Normal 0.0-0.2 Liver Profile 04/29/2020 [place] [address] [phone] Ast/Sgot 20 U/L Normal 7-37 Alt/SGPT 31 U/L Normal 12-78 Alkaline Phosphatase 90 U/L Normal 45-117 Bilirubin,Total 0.1 mg/dL Low 0.2-1.0 Bilirubin,Direct < 0.1 mg/dL Normal 0.0-0.2 Total Protein 7.9 GM/DL Normal 6.4-8.2 Albumin 3.2 GM/DL Normal 3.2-5.2 Albumin/Globulin Ratio 0.7 Low 1.2-2.2 Basic Metabolic Profile 04/29/2020 [facility] [place] [address] [phone] Glucose, Fasting 62 mg/dL Low 70-100 Blood [...] Laboratory test finding 04/29/2020 [place] [address] [phone] Thyroid Stimulating Hormone 10.700 uIU/ML High 0 .358-3.740 Free T4 0.75 ng/dL Low 0.76-1.46 Laboratory test finding 04/28/2020 [place] [address] [phone] Bedside Glucose 169 mg/dL High 70-105 1 [...] monitoring the treatment of cancer patients. Siemens [employer] CV methodology. 4 Units are mL/min/1.73 m2 Chronic Kidney Disease Staging per NKF: Stage I & II GFR >=60 Normal to Mildly Decreased Stage III GFR 30-59 Moderately Decreased Stage IV GFR 15-29 Severely Decreased Stage V GFR <15 Very Little GFR Left ESRD GFR <15 on PRESSURE WELDER 5 A false negative result may occur [...] pathogens. DISCLAIMER: Testing was performed using the [employer] SARS-CoV-2 test. This test was developed and its performance characteristics determined by [employer]. This test has not been FDA cleared [...] Little GFR Left ESRD GFR <15 on PRESSURE WELDER 7 SRC: A courtesy copy of th [...] Little GFR Left ESRD GFR <15 on PRESSURE WELDER Procedures Date Code Description Status 09/02/2020 70918 EKG Interpretation & Report Comp leted 06/29/2020 [id number] Diabetic Foot Exam Completed 09/05/2019 [id number] Diabetic Foot Exam Completed 11/20/2014 [id number] Mammogram Completed Medical Devices Description No Information [...]
--- OUTSIDE RECORDS SUMMARY | 2020-12-04 17:54 | CCD | Continuity of Care Document ---
Author Author Eli GALEAS SCIENTIFIC SYSTEMS ANALYST Organization Unknown Address [address] [place] [address] Phone [phone] Care Team Providers Care Toolsmith Name Role Phone Mary García MD AUT [phone] Problems Description No Information Available Social History [...] mouth every day at bedtime 30tabs Milady Galeas, Paulina SLUDGE FILTRATION OPERATOR 01/13/2020 Fluoxetine HCL 40mg Capsules take one capsule by mouth every day 30caps Milady Galeas, SCIENTIFIC SYSTEMS ANALYST 12/03/2019 Chantix 1mg Tablets 1 by mouth twice a day 60tabs F17.210 Mary García M.D. 020 Humalog 100Unit/ML Solution per sliding [...] CPT Code Status Date Vaccine Lot # [id number] Given 09/02/2020 Influenza Virus Vaccine, Quadrivalent,age 3 and up,multidose vial [id number] Given 09/05/2019 Influenza Virus Vaccine, Quadrivalent,age 3 and up,multidose vial [id number] Given 08/30/2018 Influenza Virus Vaccine, Quadrivalent,age 3 and up,multidose vial [id number] Vital Signs Date Vital Result Comment 10/13/2020 1:10pm BP Systolic 185 mmHg sobbing and c rying BP Diastolic 74 mmHg sobbing and crying Heart Rate 90 /min Body Temperature 97.3 F Respiratory Rate 16 /min Height 64.0 inches 5'4" Weight 144.50 lb Peak Expiratory Flow Rate 361 Estimated Peak Flow Rate [place] Body Weight 120 lb BMI (Body Mass Index) 24.8 kg/m2 09/23/2020 10:52am BP Systolic 161 mmHg BP Diastolic 71 mmHg Heart Rate 101 /min Body Temperature 97.5 F Respiratory Rate 22 /min Height 64.0 inches 5'4" Weight 154.38 lb O2 % BldC Oximetry 98 % Peak Expiratory Flow Rate 361 Estimated Peak Flow Rate [place] Body Weight 120 lb BMI (Body Mass Index) 26.5 kg/m2 Results Test Acquired Date Facility Test Result H/L Range Note Laboratory test finding 10/08/2020 [place] [address] [phone] Bedside Glucose 419 mg/dL High 70-105 Laboratory test finding 10/08/2020 [place] [address] [phone] Ferritin 20 NG/ML Normal 8-252 Total Iron Binding Capacit 10/08/2020 [place] [address] [phone] Iron (Fe) 18 g/dL Low 50-170 Total Iron Binding Capacity 407 g/dL Normal 250-450 Percent Saturation 4.4 % Low 13.2-45.0 Laboratory test finding 10/08/2020 Patient Service [place] [id number] [phone] Phosphorus Level 3.3 mg/dL Normal 2.5-4.9 Magnesium Level 1.8 mg/dL Normal 1.8-2.4 Hemoglobin A1c 10/08/2020 Patient Service [place] [id number] [phone] Hemoglobin A1c 7.1 % Normal 1 Estimated Average Glucose 157 mg/dL High 60-110 Laboratory test finding 10/08/2020 [place] [address] [phone] Acetone/Ketone 42.40 mg/dL High <2.81 Lipase 33 U/L Low 73-393 Osmolality Serum 307 MOSM/KG High 275-295 HCG, Serum Quantitative < 1.0 MIU/ML Normal 2 Basic Metabolic Profile 10/08/2020 Patient [place] [id number] [phone] Glucose, Fasting 443 mg/dL Critical high 70-100 Blood Urea Nitrogen 17 mg/dL Significant change down 7-18 Creatinine For GFR 0.90 mg/dL Normal 0.55-1.30 Glomerular Filtration Rate > 60.0 Normal >58 3 Sodium Level 133 mEq/L Low 136-145 Potassium Serum 4.3 mEq/L Normal 3.5-5.1 Chloride Level 97 mEq/L Low 98-107 Carbon Dioxide Level 21 mEq/L Normal 21-32 Anion Gap 15 mEq/L Normal 8-16 Calcium Level 9.4 mg/dL Normal 8.5-10.1 Liver Profile 10/08/2020 [place] [address] [phone] Ast/Sgot 8 U/L Normal 7-37 Alt/SGPT 14 U/L Normal 12-78 Alkaline Phosphatase 112 U/L Normal 45-117 Bilirubin,Total 0.4 mg/dL Normal 0.2-1.0 Bilirubin,Direct < 0.1 mg/dL Normal 0.0-0.2 Total Protein 8.5 GM/DL High 6.4-8.2 Albumin 3.4 GM/DL Normal 3.2-5.2 Albumin/Globulin Ratio 0.7 Low 1.2-2.2 Venous Blood Gas 10/08/2020 Patient Service [place], [place] [id number] [phone] Venous PH 7.353 units Normal 7.330-7.430 Venous Partial Pressure Co2 36.1 mmHg Low 38.0-50.0 Venous Partial Pressure O2 29.3 mmHg Low 30.0-50.0 Venous Total Co2 20.7 mEq/L Low 24.0-28.0 Venous Hco3 19.6 mEq/L Low 23.0-27.0 Venous Base Excess -5.4 Low -2.0-2.0 Venous Standard Hco3 19.3 mEq/L Normal Venous O2 Saturation 49.3 % Low 60.0-80.0 CBC With Differential 10/08/2020 [facility] [place] [address] [phone] White Blood Count 12.8 10 High 4.0-10.0 [...] 36.0-66.0 Lymph % 8.2 % Low 24.0-44.0 [place] % 5.1 % High 0.0-5.0 Eos % 0.0 % Normal 0.0-3.0 Baso % 0.7 % Normal 0.0-1.0 Immature Granulocyte % 0.7 % Normal 0-3.0 Nucleated Red Blood Cell % 0.0 % Normal 0-0 Neutrophils # 11.0 10 High 1.5-8.5 Lymph # 1.1 10 Low 1.5-5.0 [place] # 0.7 10 Normal 0.0-0.8 Eos # 0.0 10 Normal 0.0-0.5 Baso # 0.1 10 Normal 0.0-0.2 Laboratory test finding 10/08/2020 [facility] [place] [id number] [phone] Bedside Glucose 388 mg/dL High 70-105 Ua W/ Reflex To Culture 10/08/2020 [place] [address] [phone] Appearance, Urine RFX CLEAR Normal Clear Color, Urine RFX STRAW Normal Yellow PH,Urine RFX 6.0 units Normal 5.0-9.0 Specific [place] Ur Auto RFX 1.023 Normal 1.002-1.035 Protein, [...] Laboratory test finding 10/08/2020 [place] [address] [phone] Bedside Glucose 254 mg/dL High 70-105 Laboratory test finding 10/08/2020 [place] [address] [phone] Bedside Glucose 275 mg/dL High 70-105 Laboratory test finding 10/08/2020 [place] [address] [phone] Sars Covid-19 Amplification NEGATIVE Normal Nega tive 4 Laboratory test finding 10/06/2020 [place] [address] [phone] Erythrocyte Sedimentation Rate 70 mm/hr High 0 -20 CBC With Differential 10/06/2020 [place] [address] [phone] White Blood Count 8.7 10 Normal 4.0-10.0 [...] 36.0-66.0 Lymph % 20.1 % Low 24.0-44.0 [place] % 5.7 % High 0.0-5.0 Eos % 2.6 % Normal 0.0-3.0 Baso % 1.7 % High 0.0-1.0 Immature Granulocyte % 0.3 % Normal 0-3.0 Nucleated Red Blood Cell % 0.0 % Normal 0-0 Neutrophils # 6.1 10 Normal 1.5-8.5 Lymph # 1.8 10 Normal 1.5-5.0 [place] # 0.5 10 Normal 0.0-0.8 Eos # 0.2 10 Normal 0.0-0.5 Baso # 0.2 10 Normal 0.0-0.2 Laboratory test finding 10/06/2020 [place] [address] [phone] C Reactive Protein Quantitativ 0.85 mg/dL High 0 .00-0.30 Basic Metabolic Profile 10/06/2020 Patient [facility] [place], [place] [id number] [phone] Glucose, Fasting 223 mg/dL High 70-100 Blood Urea Nitrogen 9 mg/dL Normal 7-18 Creatinine For GFR 0.79 mg/dL Normal 0.55-1.30 Glomerular Filtration Rate > 60.0 Normal >58 5 Sodium Level 135 mEq/L Low 136-145 Potassium Serum 4.0 mEq/L Normal 3.5-5.1 Chloride Level 102 mEq/L Normal 98-107 Carbon Dioxide Level 25 mEq/L Normal 21-32 Anion Gap 8 mEq/L Normal 8-16 Calcium Level 8.7 mg/dL Normal 8.5-10.1 Urinalysis, Complete 09/02/2020 [facility] [id number], [address] [place] [address] [phone] Specific [place] 1.021 1.005-1.030 6, 7 pH 6.0 5.0-7.5 8 Urine-Color Yellow Yellow 9 Appearance Clear Clear 10 WBC Esterase Negative Negative 11 Protein Trace Negative/Trace 12 Glucose Negative Negative 13 Ketones Negative Negative 14 Occult Blood Negative Negative 15 Bilirubin Negative Negative 16 Urobilinogen,Semi-Qn 0.2 mg/dL 0.2-1.0 17 Nitrite, Urine Negative Negative 18 Microscopic Examination See Comment: 19 Microscopic Examination See below: 20 WBC 0-5 /hpf 0 - 5 RBC 0-2 /hpf 0 - 2 Epithelial Cells (non renal) 0-10 /hpf 0 - 10 Epithelial Cells (renal) TNP Casts Present /lpf Abnormal None seen Cast Type Hyaline casts N/A Crystals TNP Crystal Type TNP Mucus Threads Present Not Estab. Bacteria None seen None seen/Few Yeast TNP Trichomonas TNP Comment TNP Culture Urine 09/02/2020 [facility] [address], [address] [place] [address] [phone] Urine Culture, Routine Final report Abnormal 21 Result 1 See Comment: Abnormal 22 BMP W/Egfr 09/02/2020 [facility] [address] [facility], [address] [place] [address] [phone] Glucose 147 mg/dL High 65-99 23 BUN 14 mg/dL 6-24 24 Creatinine 1.00 mg/dL 0.57-1.00 25 eGFR If NonAfricn Am 67 mL/min/1.73 >59 26 eGFR If Africn Am 78 mL/min/1.73 >59 27 BUN/Creatinine Ratio 14 9-23 28 Sodium 136 mmol/L 134-144 29 Potassium 4.7 mmol/L 3.5-5.2 30 Chloride 97 mmol/L 96-106 31 Carbon Dioxide, Total 26 mmol/L 20-29 32 Calcium 9.5 mg/dL 8.7-10.2 33 CBC With Auto Diff 09/02/2020 [facility] [id number] [facility], [address] [place] [address] [phone] WBC 9.4 x10E3/uL 3.4-10.8 34 RBC 3.95 x10E6/uL 3.77-5.28 35 Hemoglobin 9.0 g/dL Low 11.1-15.9 36 Hematocrit 30.2 % Low 34.0-46.6 37 MCV 77 fL Low 79-97 38 MCH 22.8 pg Low 26.6-33.0 39 MCHC 29.8 g/dL Low 31.5-35.7 40 RDW 17.0 % High 11.7-15.4 41 Platelets 411 x10E3/uL 150-450 42 Neutrophils 62 % Not Estab. 43 Lymphs 28 % Not Estab. 44 Monocytes 6 % Not Estab. 45 Eos 2 % Not Estab. 46 Basos 2 % Not Estab. 47 Immature Cells TNP 48 Neutrophils (Absolute) 5.9 x10E3/uL 1.4-7.0 49 Lymphs (Absolute) 2.7 x10E3/uL 0.7-3.1 50 Monocytes(Absolute) 0.5 x10E3/uL 0.1-0.9 51 Eos (Absolute) 0.2 x10E3/uL 0.0-0.4 52 Baso (Absolute) 0.2 x10E3/uL 0.0-0.2 53 Immature Granulocytes 0 % Not Estab. 54 Immature Grans (Abs) 0.0 x10E3/uL 0.0-0.1 55 NRBC TNP 56 Hematology Comments: TNP 57 Hemoglobin A1c Panel 09/02/2020 [facility] [id number] [facility], [address] [place] [address] [phone] Hemoglobin A1c 8.1 % High 4.8-5.6 58 Laboratory test finding 04/29/2020 [place] [address] [phone] Bedside Glucose 172 mg/dL High 70-105 Laboratory test finding 04/29/2020 [place] [address] [phone] Bedside Glucose 114 mg/dL High 70-105 Laboratory test finding 04/29/2020 [place] [address] [phone] Bedside Glucose 91 mg/dL Normal 70-105 Laboratory test finding 04/29/2020 [place] [address] [phone] Bedside Glucose 31 mg/dL Critical low 70-105 59 Laboratory test finding 04/29/2020 Patient [facility] Center [place] [id number] [phone] Bedside Glucose 26 mg/dL Critical low 70-105 60 CBC With Differential 04/29/2020 [place] [address] [phone] White Blood Count 6.9 10 Normal 4.0-10.0 [...] 36.0-66.0 Lymph % 21.7 % Low 24.0-44.0 [place] % 6.9 % High 0.0-5.0 Eos % 2.0 % Normal 0.0-3.0 Baso % 1.9 % High 0.0-1.0 Immature Granulocyte % 0.1 % Normal 0-3.0 Nucleated Red Blood Cell % 0.0 % Normal 0-0 Neutrophils # 4.6 10 Normal 1.5-8.5 Lymph # 1.5 10 Normal 1.5-5.0 [place] # 0.5 10 Normal 0.0-0.8 Eos # 0.1 10 Normal 0.0-0.5 Baso # 0.1 10 Normal 0.0-0.2 Liver Profile 04/29/2020 [place] [address] [phone] Ast/Sgot 20 U/L Normal 7-37 Alt/SGPT 31 U/L Normal 12-78 Alkaline Phosphatase 90 U/L Normal 45-117 Bilirubin,Total 0.1 mg/dL Low 0.2-1.0 Bilirubin,Direct < 0.1 mg/dL Normal 0.0-0.2 Total Protein 7.9 GM/DL Normal 6.4-8.2 Albumin 3.2 GM/DL Normal 3.2-5.2 Albumin/Globulin Ratio 0.7 Low 1.2-2.2 Basic Metabolic Profile 04/29/2020 [place] [address] [phone] Glucose, Fasting 62 mg/dL Low 70-100 Blood Urea Nitrogen 10 mg/dL Normal 7-18 Creatinine For GFR 0.95 mg/dL Normal 0.55-1.30 Glomerular Filtration Rate > 60.0 Normal >58 6 1 Sodium Level 141 mEq/L Normal 136-145 Potassium Serum 3.8 mEq/L Normal 3.5-5.1 Chloride Level 110 mEq/L High 98-107 Carbon Dioxide Level 24 mEq/L Normal 21-32 Anion Gap 7 mEq/L Low 8-16 Calcium Level 8.6 mg/dL Normal 8.5-10.1 Laboratory test finding 04/29/2020 [place] [address] [phone] Thyroid Stimulating Hormone 10.700 uIU/ML High 0 .358-3.740 Free T4 0.75 ng/dL Low 0.76-1.46 Laboratory test finding 04/28/2020 [place] [address] [phone] Bedside Glucose 169 mg/dL High 70-105 1 REFERENCE RANGES: <=5.6% NORMAL 5.7-6.4% SUGGESTS IMPAIRED GLUCOSE META BOLISM/PREDIABETIC >= 6.5% ABNORMAL 2 GESTATIONAL AGE APPROXIMATE HCG RANGE (MIU/ML) - [...] monitoring the treatment of cancer patients. Siemens Topera methodology. 3 Units are mL/min/1.73 m2 Chronic Kidney Disease Staging per NKF: Stage I & II GFR >=60 Normal to Mildly Decreased Stage III GFR 30-59 Moderately Decreased Stage IV GFR 15-29 Severely Decreased Stage V GFR <15 Very Little GFR Left ESRD GFR <15 on STEAM SHOVEL ENGINEER 4 A false negative result may occur if [...] pathogens. DISCLAIMER: Testing was performed using the [employer] SARS-CoV-2 test. This test was developed and its performance characteristics determined by [employer]. This test has not been FDA cleared [...] the authorization is terminated or revoked sooner. 5 Units are mL/min/1.73 m2 Chronic Kidney Disease Staging per NKF: Stage I & II GFR >=60 Normal to Mildly Decreased Stage III GFR 30-59 Moderately Decreased Stage IV GFR 15-29 Severely Decreased Stage V GFR <15 Very Little GFR Left ESRD GFR <15 on STEAM SHOVEL ENGINEER 6 SRC: A courtesy copy of th is report has been sent to the patient, SRC: 7 Source of Specimen: 8 Source of Specimen: UC 9 Source of Specimen: UC 10 Source of Specimen: UC 11 Source of Specimen: UC 12 Source of Specimen: UC 13 Source of Specimen: UC 14 Source of Specimen: UC 15 Source of Specimen: UC 16 Source of Specimen: UC 17 Source of Specimen: UC 18 Source of Specimen: UC 19 Source of Specimen: UC Microscopic follows if indicated. 20 Source of Specimen: UC 21 Source of Specimen: UC 22 Source of Specimen: UC Beta hemolytic Streptococcus, group B 10,000-25,000 colony [...] reported for Streptococcus pyogenes (group A). (CLSI) 23 Source of Specimen: UC 24 Source of Specimen: UC 25 Source of Specimen: UC 26 Source of Specimen: UC 27 Source of Specimen: UC 28 Source of Specimen: UC 29 Source of Specimen: UC 30 Source of Specimen: UC 31 Source of Specimen: UC 32 Source of Specimen: UC 33 Source of Specimen: UC 34 Source of Specimen: UC 35 Source of Specimen: UC 36 Source of Specimen: UC 37 Source of Specimen: UC 38 Source of Specimen: 39 Source of [...] Source of Specimen: 58 Source of Specimen: Prediabetes: 5.7 - 6.4 Diabetes: >6.4 Glycemic control for adults with diabetes: <7.0 59 Doctor Notified Nurse Notified 60 Doctor Notified Nurse Notified 61 Units are mL/min/1.73 m2 Chronic Kidney Disease Staging per NKF: Stage I & II GFR >=60 Normal to Mildly Decreased Stage III GFR 30-59 Moderately Decreased Stage IV GFR 15-29 Severely Decreased Stage V GFR <15 Very Little GFR Left ESRD GFR <15 on STEAM SHOVEL ENGINEER Procedures Date Code Description Status 09/02/2020 44724 EKG Interpretation & Report Comp leted 06/29/2020 [id number] Diabetic Foot Exam Completed 09/05/2019 [id number] Diabetic Foot Exam Completed 11/20/2014 [id number] Mammogram Completed Medical Devices Description No Information [...]
--- OUTSIDE RECORDS SUMMARY | 2020-12-04 17:54 | CCD | Continuity of Care Document ---
Author Author Eli HERNANDES M.D. Organization Unknown Address [address] [place] [address] Phone [phone] Care Team Providers Care Farmworker [employer] Name Role Phone Mary Hernandes MD AUTM [phone] Problems Description No Information Available Social History Type Date Description Comments Sex Unknown Tobacco Use Start: Unknown Never Used Smokeless Tobacco ETOH Use Denies alcohol use Tobacco Use Start: Unknown Patient is a current smoker, smo kes every day 8 cigarettes per day Recreational Drug Use Denies Drug Use Smoking Status Reviewed: 09/23/20 Patient is a current smoker, smokes every [...] under the skin daily. Unk nown 10/11/2020 Methylprednisolone 4mg Tablets Taper dose ? Ortho started this. (started during an ED visit, took one day and then was admitted and has not taken) Unknown 10/11/2020 Tizanidine HCL 4mg Capsules 1 by mouth four times a day Unknown 10/11/2020 Percocet 5-325mg Tablets 1 tab by mouth every 6 hours as needed for pain Unknown 10/11/2020 Mirtazapine 15mg Tablets take one tablet by mouth every day at bedtime 30tabs Mary Hernandes M.D. 01/13/2020 Fluoxetine HCL 40mg Capsules take one capsule by mouth every day 30caps Mary Hernandes M .D. 12/03/2019 Chantix 1mg Tablets 1 by mouth twice a day 60tabs F17.210 Mary Hernandes M.D. 020 Humalog 100Unit/ML Solution per sliding scale prior to each meal Unknown 00/0 000 Methocarbamol 500mg Tablets Take one tablet by mouth twice a day Unknown History Medications Toujeo Solostar 300U nit/ML Solution Pen-Inject inject [...] CPT Code Status Date Vaccine Lot # [id number] Given 09/02/2020 Influenza Virus Vaccine, Quadrivalent,age 3 and up,multidose vial [id number] Given 09/05/2019 Influenza Virus Vaccine, Quadrivalent,age 3 and up,multidose vial [id number] Given 08/30/2018 Influenza Virus Vaccine, Quadrivalent,age 3 and up,multidose vial [id number] Vital Signs Date Vital Result Comment 09/23/2020 10:52am BP Systolic 161 mmHg BP Diastolic 71 mmHg Heart Rate 101 /min Body Temperature 97.5 F Respiratory Rate 22 /min Height 64.0 inches 5'4" Weight 154.38 lb O2 % BldC Oximetry 98 % Peak Expiratory Flow Rate 361 Estimated Peak Flow Rate [place] Body Weight 120 lb BMI (Body Mass Index) 26.5 kg/m2 09/02/2020 2:45pm BP Systolic 143 mmHg BP Diastolic 75 mmHg BP Systolic Recheck 128 mmHg BP Diastolic Recheck 63 mmHg Heart Rate 85 /min Body Temperature 96.9 F Respiratory Rate 17 /min Height 64.0 inches 5'4" Weight 151.38 lb O2 % dC Oximetry 98 % Peak Expiratory Flow Rate 361 Estimated Peak Flow Rate [place] Body Weight 120 lb BMI (Body Mass Index) 26.0 kg/m2 Results Test Acquired Date Facility Test Result H/L Range Note Laboratory test finding 10/08/2020 [place] [address] [phone] Bedside Glucose 419 mg/dL High 70-105 Laboratory test finding 10/08/2020 [place] [address] [phone] Ferritin 20 NG/ML Normal 8-252 Total Iron Binding Capacit 10/08/2020 [place] [address] [phone] Iron (Fe) 18 g/dL Low 50-170 Total Iron Binding Capacity 407 g/dL Normal 250-450 Percent Saturation 4.4 % Low 13.2-45.0 Laboratory test finding 10/08/2020 [place] [address] [phone] Phosphorus Level 3.3 mg/dL Normal 2.5-4.9 Magnesium Level 1.8 mg/dL Normal 1.8-2.4 Hemoglobin A1c 10/08/2020 [place] [address] [phone] Hemoglobin A1c 7.1 % Normal 1 Estimated Average Glucose 157 mg/dL High 60-110 Laboratory test finding 10/08/2020 Patient Service [place] [id number] [phone] Acetone/Ketone 42.40 mg/dL High <2.81 Lipase 33 U/L Low 73-393 Osmolality Serum 307 MOSM/KG High 275-295 HCG, Serum Quantitative < 1.0 MIU/ML Normal 2 Basic Metabolic Profile 10/08/2020 Patient Service [place] [id number] [phone] Glucose, Fasting 443 mg/dL Critical high 70-100 [...] Normal 8.5-10.1 Liver Profile 10/08/2020 [place] [address] [phone] Ast/Sgot 8 U/L Normal 7-37 Alt/SGPT 14 U/L Normal 12-78 Alkaline Phosphatase 112 U/L Normal 45-117 Bilirubin,Total 0.4 mg/dL Normal 0.2-1.0 Bilirubin,Direct < 0.1 mg/dL Normal 0.0-0.2 Total Protein 8.5 GM/DL High 6.4-8.2 Albumin 3.4 GM/DL Normal 3.2-5.2 Albumin/Globulin Ratio 0.7 Low 1.2-2.2 Venous Blood Gas 10/08/2020 [place] [address] [phone] Venous PH 7.353 units Normal 7.330-7.430 Venous Partial Pressure Co2 36.1 mmHg Low 38.0-50.0 Venous Partial Pressure O2 29.3 mmHg Low 30.0-50.0 Venous Total Co2 20.7 mEq/L Low 24.0-28.0 Venous Hco3 19.6 mEq/L Low 23.0-27.0 Venous Base Excess -5.4 Low -2.0-2.0 Venous Standard Hco3 19.3 mEq/L Normal Venous O2 Saturation 49.3 % Low 60.0-80.0 CBC With Differential 10/08/2020 [facility] [place] [address] [phone] White Blood Count 12.8 10 High 4.0-10.0 [...] 36.0-66.0 Lymph % 8.2 % Low 24.0-44.0 Sherman % 5.1 % High 0.0-5.0 Eos % 0.0 % Normal 0.0-3.0 Baso % 0.7 % Normal 0.0-1.0 Immature Granulocyte % 0.7 % Normal 0-3.0 Nucleated Red Blood Cell % 0.0 % Normal 0-0 Neutrophils # 11.0 10 High 1.5-8.5 Lymph # 1.1 10 Low 1.5-5.0 Sherman # 0.7 10 Normal 0.0-0.8 Eos # 0.0 10 Normal 0.0-0.5 Baso # 0.1 10 Normal 0.0-0.2 Laboratory test finding 10/08/2020 [place] [address] [phone] Bedside Glucose 388 mg/dL High 70-105 Ua W/ Reflex To Culture 10/08/2020 [place] [address] [phone] Appearance, Urine RFX CLEAR Normal Clear Color, Urine RFX STRAW Normal Yellow PH,Urine RFX 6.0 units Normal 5.0-9.0 Specific Stephan Ur Auto RFX 1.023 Normal 1.002-1.035 Protein, [...] Laboratory test finding 10/08/2020 Patient Service Center [place] [id number] [phone] Bedside Glucose 254 mg/dL High 70-105 Laboratory test finding 10/08/2020 [place] [address] [phone] Bedside Glucose 275 mg/dL High 70-105 Laboratory test finding 10/08/2020 [place] [address] [phone] Sars Covid-19 Amplification NEGATIVE Normal Nega tive 4 Laboratory test finding 10/06/2020 Patient Service [place] 0476932 [phone] Erythrocyte Sedimentation Rate 70 mm/hr High 0 -20 CBC With Differential 10/06/2020 [place] [address] [phone] White Blood Count 8.7 10 Normal 4.0-10.0 [...] 36.0-66.0 Lymph % 20.1 % Low 24.0-44.0 Sherman % 5.7 % High 0.0-5.0 Eos % 2.6 % Normal 0.0-3.0 Baso % 1.7 % High 0.0-1.0 Immature Granulocyte % 0.3 % Normal 0-3.0 Nucleated Red Blood Cell % 0.0 % Normal 0-0 Neutrophils # 6.1 10 Normal 1.5-8.5 Lymph # 1.8 10 Normal 1.5-5.0 Sherman # 0.5 10 Normal 0.0-0.8 Eos # 0.2 10 Normal 0.0-0.5 Baso # 0.2 10 Normal 0.0-0.2 Laboratory test finding 10/06/2020 [place] [address] [phone] C Reactive Protein Quantitativ 0.85 mg/dL High 0 .00-0.30 Basic Metabolic Profile 10/06/2020 [place] [address] [phone] Glucose, Fasting 223 mg/dL High 70-100 Blood [...] mg/dL Normal 8.5-10.1 Urinalysis, Complete 09/02/2020 [facility] [id number] [facility], [address] [place], [place] [address] [phone] Specific Stephan 1.021 1.005-1.030 6, 7 pH 6.0 5.0-7.5 [...] TNP Comment TNP Culture Urine 09/02/2020 [facility] [id number] [facility], [address] [place] [address] [phone] Urine Culture, Routine Final report Abnormal 21 Result 1 See Comment: Abnormal 22 BMP W/Egfr 09/02/2020 [facility] [id number] [facility], [address] [place] [address] [phone] Glucose 147 mg/dL High 65-99 23 BUN [...] 33 CBC With Auto Diff 09/02/2020 [facility] [id number] [facility], [address] [place] [address] [phone] WBC 9.4 x10E3/uL 3.4-10.8 34 RBC 3.95 [...] TNP 57 Hemoglobin A1c Panel 09/02/2020 [facility] [id number] [facility], [address] [place] [address] [phone] Hemoglobin A1c 8.1 % High 4.8-5.6 58 Laboratory test finding 04/29/2020 [place] [address] [phone] Bedside Glucose 172 mg/dL High 70-105 Laboratory test finding 04/29/2020 [place] [address] [phone] Bedside Glucose 114 mg/dL High 70-105 Laboratory test finding 04/29/2020 [place] [address] [phone] Bedside Glucose 91 mg/dL Normal 70-105 Laboratory test finding 04/29/2020 Patient Service [place] [address]476932 [phone] Bedside Glucose 31 mg/dL Critical low 70-105 59 Laboratory test finding 04/29/2020 [place] [address] [phone] Bedside Glucose 26 mg/dL Critical low 70-105 60 CBC With Differential 04/29/2020 [place] [address] [phone] White Blood Count 6.9 10 Normal 4.0-10.0 [...] 36.0-66.0 Lymph % 21.7 % Low 24.0-44.0 Sherman % 6.9 % High 0.0-5.0 Eos % 2.0 % Normal 0.0-3.0 Baso % 1.9 % High 0.0-1.0 Immature Granulocyte % 0.1 % Normal 0-3.0 Nucleated Red Blood Cell % 0.0 % Normal 0-0 Neutrophils # 4.6 10 Normal 1.5-8.5 Lymph # 1.5 10 Normal 1.5-5.0 Sherman # 0.5 10 Normal 0.0-0.8 Eos # 0.1 10 Normal 0.0-0.5 Baso # 0.1 10 Normal 0.0-0.2 Liver Profile 04/29/2020 [place] [address] [phone] Ast/Sgot 20 U/L Normal 7-37 Alt/SGPT 31 U/L Normal 12-78 Alkaline Phosphatase 90 U/L Normal 45-117 Bilirubin,Total 0.1 mg/dL Low 0.2-1.0 Bilirubin,Direct < 0.1 mg/dL Normal 0.0-0.2 Total Protein 7.9 GM/DL Normal 6.4-8.2 Albumin 3.2 GM/DL Normal 3.2-5.2 Albumin/Globulin Ratio 0.7 Low 1.2-2.2 Basic Metabolic Profile 04/29/2020 [place] [address] [phone] Glucose, Fasting 62 mg/dL Low 70-100 Blood [...] 8.5-10.1 Laboratory test finding 04/29/2020 [place] [address] [phone] Thyroid Stimulating Hormone 10.700 uIU/ML High 0 .358-3.740 Free T4 0.75 ng/dL Low 0.76-1.46 Laboratory test finding 04/28/2020 Patient Service [facility] [place], [place] [address] [phone] Bedside Glucose 169 mg/dL High 70-105 1 [...] monitoring the treatment of cancer patients. Siemens [address] methodology. 3 Units are mL/min/1.73 m2 Chronic Kidney Disease Staging per NKF: Stage I & II GFR >=60 Normal to Mildly Decreased Stage III GFR 30-59 Moderately Decreased Stage IV GFR 15-29 Severely Decreased Stage V GFR <15 Very Little GFR Left ESRD GFR <15 on [facility] 4 A false negative result may occur [...] pathogens. DISCLAIMER: Testing was performed using the [employer] SARS-CoV-2 test. This test was developed and its performance characteristics determined by [employer]. This test has not been FDA cleared [...] Little GFR Left ESRD GFR <15 on [facility] 6 SRC: A courtesy copy of th is report has been sent to the patient, SRC:UC 7 Source of Specimen: 8 Source of [...] of Specimen: UC 22 Source of Specimen: Beta hemolytic Streptococcus, group [...] of Specimen: UC 37 Source of Specimen: 38 Source of [...] Little GFR Left ESRD GFR <15 on [facility] Procedures Date Code Description Status 09/02/2020 65566 EKG Interpretation & Report Comp leted 06/29/2020 [id number] Diabetic Foot Exam Completed 09/05/2019 [id number] Diabetic Foot Exam Completed 11/20/2014 [id number] Mammogram Completed Medical Devices Description No Information Available Encounters Type Date Location Provider Dx Diagnosis Office Visit 09/23/2020 10:45a Main Office Hanny [...] for immunization Assessments Date Code Description Provider 09/23/2020 E10.9 Type 1 diabetes mellitus without [...] - Hanny Tyson PA at Main Office Functional Status Functional Condition Comment Date Status Independent with all ADL's Activ e Glasses Active Independent with all IADL's Acti ve Complete lower and upper and lower dentures Active Mental Status Mental Condition Comment Date Status None Active Referrals Description No Information Available
--- OUTSIDE RECORDS SUMMARY | 2020-12-04 17:54 | CCD | Continuity of Care Document ---
Author Author Eli GALEAS RN UROLOGY Organization Unknown Address [address] [place] [address] Phone [phone] Care Team Providers Care Construction Sales Representative Name Role Phone Mary García MD AUT [phone] Problems Description No Information Available Social History [...] day at bedtime 30tabs Milady Galeas, Paulina LOGGING OPERATIONS INSPECTOR 01/13/2020 Fluoxetine HCL 40mg Capsules take one capsule by mouth every day 30caps Milady Galeas, RN UROLOGY 12/03/2019 Chantix 1mg Tablets 1 by mouth [...] CPT Code Status Date Vaccine Lot # [id number] Given 09/02/2020 Influenza Virus Vaccine, Quadrivalent,age 3 and up,multidose vial [id number] Given 09/05/2019 Influenza Virus Vaccine, Quadrivalent,age 3 and up,multidose vial [id number] Given 08/30/2018 Influenza Virus Vaccine, Quadrivalent,age 3 and up,multidose vial [id number] Vital Signs Date Vital Result Comment 10/13/2020 1:10pm BP Systolic 185 mmHg sobbing and c rying BP Diastolic 74 mmHg sobbing and crying Heart Rate 90 /min Body Temperature 97.3 F Respiratory Rate 16 /min Height 64.0 inches 5'4" Weight 144.50 lb Peak Expiratory Flow Rate 361 Estimated Peak Flow Rate [place] Body Weight 120 lb BMI (Body Mass Index) 24.8 kg/m2 09/23/2020 10:52am BP Systolic 161 mmHg BP Diastolic 71 mmHg Heart Rate 101 /min Body Temperature 97.5 F Respiratory Rate 22 /min Height 64.0 inches 5'4" Weight 154.38 lb O2 % BldC Oximetry 98 % Peak Expiratory Flow Rate 361 Estimated Peak Flow Rate [place] Body Weight 120 lb BMI (Body Mass Index) 26.5 kg/m2 Results Test Acquired Date Facility Test Result H/L Range Note Laboratory test finding 10/08/2020 [place] [address] [phone] Bedside Glucose 419 mg/dL High 70-105 Laboratory test finding 10/08/2020 [place] [address] [phone] Ferritin 20 NG/ML Normal 8-252 Total Iron Binding Capacit 10/08/2020 [place] [address] [phone] Iron (Fe) 18 g/dL Low 50-170 Total Iron Binding Capacity 407 g/dL Normal 250-450 Percent Saturation 4.4 % Low 13.2-45.0 Laboratory test finding 10/08/2020 Patient Service [place] 8697047 [phone] Phosphorus Level 3.3 mg/dL Normal 2.5-4.9 Magnesium Level 1.8 mg/dL Normal 1.8-2.4 Hemoglobin A1c 10/08/2020 Patient Service [place] 7248320 [phone] Hemoglobin A1c 7.1 % Normal 1 Estimated Average Glucose 157 mg/dL High 60-110 Laboratory test finding 10/08/2020 [place] [address] [phone] Acetone/Ketone 42.40 mg/dL High <2.81 Lipase 33 U/L Low 73-393 Osmolality Serum 307 MOSM/KG High 275-295 HCG, Serum Quantitative < 1.0 MIU/ML Normal 2 Basic Metabolic Profile 10/08/2020 Patient [place] 8676909 [phone] Glucose, Fasting 443 mg/dL Critical high 70-100 [...] Normal 8.5-10.1 Liver Profile 10/08/2020 [place] [address] [phone] Ast/Sgot 8 U/L Normal 7-37 Alt/SGPT 14 U/L Normal 12-78 Alkaline Phosphatase 112 U/L Normal 45-117 Bilirubin,Total 0.4 mg/dL Normal 0.2-1.0 Bilirubin,Direct < 0.1 mg/dL Normal 0.0-0.2 Total Protein 8.5 GM/DL High 6.4-8.2 Albumin 3.4 GM/DL Normal 3.2-5.2 Albumin/Globulin Ratio 0.7 Low 1.2-2.2 Venous Blood Gas 10/08/2020 Patient Service [place], [place] [address] [phone] Venous PH 7.353 units Normal 7.330-7.430 Venous Partial Pressure Co2 36.1 mmHg Low 38.0-50.0 Venous Partial Pressure O2 29.3 mmHg Low 30.0-50.0 Venous Total Co2 20.7 mEq/L Low 24.0-28.0 Venous Hco3 19.6 mEq/L Low 23.0-27.0 Venous Base Excess -5.4 Low -2.0-2.0 Venous Standard Hco3 19.3 mEq/L Normal Venous O2 Saturation 49.3 % Low 60.0-80.0 CBC With Differential 10/08/2020 Patient Service [facility] [place] [address] [phone] White Blood Count 12.8 10 High 4.0-10.0 [...] 36.0-66.0 Lymph % 8.2 % Low 24.0-44.0 [place] % 5.1 % High 0.0-5.0 Eos % 0.0 % Normal 0.0-3.0 Baso % 0.7 % Normal 0.0-1.0 Immature Granulocyte % 0.7 % Normal 0-3.0 Nucleated Red Blood Cell % 0.0 % Normal 0-0 Neutrophils # 11.0 10 High 1.5-8.5 Lymph # 1.1 10 Low 1.5-5.0 [place] # 0.7 10 Normal 0.0-0.8 Eos # 0.0 10 Normal 0.0-0.5 Baso # 0.1 10 Normal 0.0-0.2 Laboratory test finding 10/08/2020 Patient Service Center [place] [address]092963 [phone] Bedside Glucose 388 mg/dL High 70-105 Ua W/ Reflex To Culture 10/08/2020 [place] [address] [phone] Appearance, Urine RFX CLEAR Normal Clear Color, Urine RFX STRAW Normal Yellow PH,Urine RFX 6.0 units Normal 5.0-9.0 Specific [place] Ur Auto RFX 1.023 Normal 1.002-1.035 Protein, [...] Laboratory test finding 10/08/2020 [place] [address] [phone] Bedside Glucose 254 mg/dL High 70-105 Laboratory test finding 10/08/2020 [place] [address] [phone] Bedside Glucose 275 mg/dL High 70-105 Laboratory test finding 10/08/2020 [place] [address] [phone] Sars Covid-19 Amplification NEGATIVE Normal Nega tive 4 Laboratory test finding 10/06/2020 [place] [address] [phone] Erythrocyte Sedimentation Rate 70 mm/hr High 0 -20 CBC With Differential 10/06/2020 [place] [address] [phone] White Blood Count 8.7 10 Normal 4.0-10.0 [...] 36.0-66.0 Lymph % 20.1 % Low 24.0-44.0 [place] % 5.7 % High 0.0-5.0 Eos % 2.6 % Normal 0.0-3.0 Baso % 1.7 % High 0.0-1.0 Immature Granulocyte % 0.3 % Normal 0-3.0 Nucleated Red Blood Cell % 0.0 % Normal 0-0 Neutrophils # 6.1 10 Normal 1.5-8.5 Lymph # 1.8 10 Normal 1.5-5.0 Hooker # 0.5 10 Normal 0.0-0.8 Eos # 0.2 10 Normal 0.0-0.5 Baso # 0.2 10 Normal 0.0-0.2 Laboratory test finding 10/06/2020 [place] [address] [phone] C Reactive Protein Quantitativ 0.85 mg/dL High 0 .00-0.30 Basic Metabolic Profile 10/06/2020 Patient Service Center [place], [place] [address]33[address] [phone] Glucose, Fasting 223 mg/dL High 70-100 Blood [...] mg/dL Normal 8.5-10.1 Urinalysis, Complete 09/02/2020 [facility] [address] [address], [address] [place] [address] [phone] Specific [place] 1.021 1.005-1.030 6, 7 pH 6.0 5.0-7.5 [...] TNP Comment TNP Culture Urine 09/02/2020 [facility] [address] [address], [address] [place] [address] [phone] Urine Culture, Routine Final report Abnormal 21 Result 1 See Comment: Abnormal 22 BMP W/Egfr 09/02/2020 [facility] [id number] [facility], [address] [place] [address] [phone] Glucose 147 mg/dL High 65-99 23 BUN [...] 33 CBC With Auto Diff 09/02/2020 [facility] [address] [facility], [address] [place] [address] [phone] WBC 9.4 x10E3/uL 3.4-10.8 34 RBC 3.95 [...] TNP 57 Hemoglobin A1c Panel 09/02/[address] [facility] [id number] [facility], [address] [place] [address] [phone] Hemoglobin A1c 8.1 % High 4.8-5.6 58 Laboratory test finding 04/29/2020 [place] [address] [phone] Bedside Glucose 172 mg/dL High 70-105 Laboratory test finding 04/29/2020 [place] [address] [phone] Bedside Glucose 114 mg/dL High 70-105 Laboratory test finding 04/29/2020 [place] [address] [phone] Bedside Glucose 91 mg/dL Normal 70-105 Laboratory test finding 04/29/2020 [place] [address] [phone] Bedside Glucose 31 mg/dL Critical low 70-105 59 Laboratory test finding 04/29/2020 [facility] [place] 8092929 [phone] Bedside Glucose 26 mg/dL Critical low 70-105 60 CBC With Differential 04/29/2020 [place] [address] [phone] White Blood Count 6.9 10 Normal 4.0-10.0 [...] 36.0-66.0 Lymph % 21.7 % Low 24.0-44.0 Hooker % 6.9 % High 0.0-5.0 Eos % 2.0 % Normal 0.0-3.0 Baso % 1.9 % High 0.0-1.0 Immature Granulocyte % 0.1 % Normal 0-3.0 Nucleated Red Blood Cell % 0.0 % Normal 0-0 Neutrophils # 4.6 10 Normal 1.5-8.5 Lymph # 1.5 10 Normal 1.5-5.0 Hooker # 0.5 10 Normal 0.0-0.8 Eos # 0.1 10 Normal 0.0-0.5 Baso # 0.1 10 Normal 0.0-0.2 Liver Profile 04/29/2020 [place] [address] [phone] Ast/Sgot 20 U/L Normal 7-37 Alt/SGPT 31 U/L Normal 12-78 Alkaline Phosphatase 90 U/L Normal 45-117 Bilirubin,Total 0.1 mg/dL Low 0.2-1.0 Bilirubin,Direct < 0.1 mg/dL Normal 0.0-0.2 Total Protein 7.9 GM/DL Normal 6.4-8.2 Albumin 3.2 GM/DL Normal 3.2-5.2 Albumin/Globulin Ratio 0.7 Low 1.2-2.2 Basic Metabolic Profile 04/29/2020 [place] [address] [phone] Glucose, Fasting 62 mg/dL Low 70-100 Blood [...] 8.5-10.1 Laboratory test finding 04/29/2020 [place] [address] [phone] Thyroid Stimulating Hormone 10.700 uIU/ML High 0 .358-3.740 Free T4 0.75 ng/dL Low 0.76-1.46 Laboratory test finding 04/28/2020 [place] [address] [phone] Bedside Glucose 169 mg/dL High 70-105 1 [...] monitoring the treatment of cancer patients. Siem[employer] methodology. 3 Units are mL/min/1.73 m2 Chronic Kidney Disease Staging per NKF: Stage I & II GFR >=60 Normal to Mildly Decreased Stage III GFR 30-59 Moderately Decreased Stage IV GFR 15-29 Severely Decreased Stage V GFR <15 Very Little GFR Left ESRD GFR <15 on HIP HOP ARTIST 4 A false negative result may occur [...] pathogens. DISCLAIMER: Testing was performed using the [employer] SARS-CoV-2 test. This test was developed and its performance characteristics determined by [employer]. 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
--- OUTSIDE RECORDS SUMMARY | 2020-12-04 17:55 | CCD | Continuity of Care Document ---
Author Author Eli HERNANDES M.D. Organization Unknown Address [address] [place] [address] Phone [phone] Care Team Providers Care Quality Systems Technician Name Role Phone Mary Hernandes MD AUTM [phone] Problems Description No Information Available Social History [...] Ordering Provide r Date Gabapentin 300mg Capsules take one tablet by mouth three times a day Unknown 09/17 Basaglar Kwikpen 100 Unit/ML Solution Pen-Inject inject 25 units under the skin once daily Unknown 09/17/2020 Mirtazapine 15mg Tablets take one tablet by [...] tablet by mouth twice a day Unknown Tizanidine HCL 4mg Capsules 1 by mouth at [facility] Unknown History Medications Toujeo Solostar 300U nit/ML Solution Pen-Inject inject 25 units in morning Unknown 1 - 09/21/2020 Hydrocodone-Acetaminophen 5-325mg Tablets 1- 2 tab by mouth every 4 hours as needed for pain Max dose 12/24 hours 30tabs Unknown 09/17/2020 - 09/27/2020 Immunizations CPT Code Status Date Vaccine Lot # [id number] Given 09/02/2020 Influenza Virus Vaccine, Quadrivalent,age 3 and up,multidose vial [id number] Given 09/05/2019 Influenza Virus Vaccine, Quadrivalent,age 3 and up,multidose vial [id number] Given 08/30/2018 Influenza Virus Vaccine, Quadrivalent,age 3 and up,multidose vial [id number] Vital Signs Date Vital Result Comment 09/23/2020 10:52am BP Systolic 161 mmHg BP Diastolic 71 mmHg Heart Rate 101 /min Body Temperature 97.5 F Respiratory Rate 22 /min Height 64.0 inches 5'4" Weight 154.38 lb O2 % BldC Oximetry 98 % Peak Expiratory Flow Rate 361 Estimated Peak Flow Rate [place] Body Weight 120 lb BMI (Body Mass Index) 26.5 kg/m2 09/02/2020 2:45pm BP Systolic 143 mmHg BP Diastolic 75 mmHg BP Systolic Recheck 128 mmHg BP Diastolic Recheck 63 mmHg Heart Rate 85 /min Body Temperature 96.9 F Respiratory Rate 17 /min Height 64.0 inches 5'4" Weight 151.38 lb O2 % BldC Oximetry 98 % Peak Expiratory Flow Rate 361 Estimated Peak Flow Rate [place] Body Weight 120 lb BMI (Body Mass Index) 26.0 kg/m2 Results Test Acquired Date Facility Test Result H/L Range Note Laboratory test finding 10/08/2020 [place] [address] [phone] Bedside Glucose 419 mg/dL High 70-105 Laboratory test finding 10/08/2020 [place] [address] [phone] Ferritin 20 NG/ML Normal 8-252 Total Iron Binding Capacit 10/08/2020 [place] [address] [phone] Iron (Fe) 18 g/dL Low 50-170 Total Iron Binding Capacity 407 g/dL Normal 250-450 Percent Saturation 4.4 % Low 13.2-45.0 Laboratory test finding 10/08/2020 [place] [address] [phone] Phosphorus Level 3.3 mg/dL Normal 2.5-4.9 Magnesium Level 1.8 mg/dL Normal 1.8-2.4 Hemoglobin A1c 10/08/2020 [place] [address] [phone] Hemoglobin A1c 7.1 % Normal 1 Estimated Average Glucose 157 mg/dL High 60-110 Laboratory test finding 10/08/2020 [place] [address] [phone] Acetone/Ketone 42.40 mg/dL High <2.81 Lipase 33 U/L Low 73-393 Osmolality Serum 307 MOSM/KG High 275-295 HCG, Serum Quantitative < 1.0 MIU/ML Normal 2 Basic Metabolic Profile 10/08/2020 [place] [address] [phone] Glucose, Fasting 443 mg/dL Critical high 70-100 [...] Normal 8.5-10.1 Liver Profile 10/08/2020 [place] [address] [phone] Ast/Sgot 8 U/L Normal 7-37 Alt/SGPT 14 U/L Normal 12-78 Alkaline Phosphatase 112 U/L Normal 45-117 Bilirubin,Total 0.4 mg/dL Normal 0.2-1.0 Bilirubin,Direct < 0.1 mg/dL Normal 0.0-0.2 Total Protein 8.5 GM/DL High 6.4-8.2 Albumin 3.4 GM/DL Normal 3.2-5.2 Albumin/Globulin Ratio 0.7 Low 1.2-2.2 Venous Blood Gas 10/08/2020 Patient Service [facility] [place], [place] [id number] [phone] Venous PH 7.353 units Normal 7.330-7.430 Venous Partial Pressure Co2 36.1 mmHg Low 38.0-50.0 Venous Partial Pressure O2 29.3 mmHg Low 30.0-50.0 Venous Total Co2 20.7 mEq/L Low 24.0-28.0 Venous Hco3 19.6 mEq/L Low 23.0-27.0 Venous Base Excess -5.4 Low -2.0-2.0 Venous Standard Hco3 19.3 mEq/L Normal Venous O2 Saturation 49.3 % Low 60.0-80.0 CBC With Differential 10/08/2020 Patient Service Ce nter [facility] [place] [address] [phone] White Blood Count 12.8 10 High 4.0-10.0 [...] 36.0-66.0 Lymph % 8.2 % Low 24.0-44.0 [place] % 5.1 % High 0.0-5.0 Eos % 0.0 % Normal 0.0-3.0 Baso % 0.7 % Normal 0.0-1.0 Immature Granulocyte % 0.7 % Normal 0-3.0 Nucleated Red Blood Cell % 0.0 % Normal 0-0 Neutrophils # 11.0 10 High 1.5-8.5 Lymph # 1.1 10 Low 1.5-5.0 [place] # 0.7 10 Normal 0.0-0.8 Eos # 0.0 10 Normal 0.0-0.5 Baso # 0.1 10 Normal 0.0-0.2 Laboratory test finding 10/08/2020 [place] [address] [phone] Bedside Glucose 388 mg/dL High 70-105 Ua W/ Reflex To Culture 10/08/2020 [place] [address] [phone] Appearance, Urine RFX CLEAR Normal Clear Color, Urine RFX STRAW Normal Yellow PH,Urine RFX 6.0 units Normal 5.0-9.0 Specific [place] Ur Auto RFX 1.023 Normal 1.002-1.035 [...] Laboratory test finding 10/08/2020 [place] [address] [phone] Bedside Glucose 254 mg/dL High 70-105 Laboratory test finding 10/08/2020 [place] [address] [phone] Bedside Glucose 275 mg/dL High 70-105 Laboratory test finding 10/08/2020 [place] [address] [phone] Coronavirus 2019 Nasopharygeal <pending> Sars Covid-19 Amplification NEGATIVE Normal Negative 4 Laboratory test finding 10/06/2020 [place] [address] [phone] Erythrocyte Sedimentation Rate 70 mm/hr High 0 -20 CBC With Differential 10/06/2020 [place] [address] [phone] White Blood Count 8.7 10 Normal 4.0-10.0 [...] 36.0-66.0 Lymph % 20.1 % Low 24.0-44.0 [place] % 5.7 % High 0.0-5.0 Eos % 2.6 % Normal 0.0-3.0 Baso % 1.7 % High 0.0-1.0 Immature Granulocyte % 0.3 % Normal 0-3.0 Nucleated Red Blood Cell % 0.0 % Normal 0-0 Neutrophils # 6.1 10 Normal 1.5-8.5 Lymph # 1.8 10 Normal 1.5-5.0 [place] # 0.5 10 Normal 0.0-0.8 Eos # 0.2 10 Normal 0.0-0.5 Baso # 0.2 10 Normal 0.0-0.2 Laboratory test finding 10/06/2020 [place] [address] [phone] C Reactive Protein Quantitativ 0.85 mg/dL High 0 .00-0.30 Basic Metabolic Profile 10/06/2020 [place] [address] [phone] Glucose, Fasting 223 mg/dL High 70-100 Blood [...] mg/dL Normal 8.5-10.1 Urinalysis, Complete 09/02/[address] [facility] [id number] [place] [address], [address] [place] [address] [phone] Specific [place] 1.021 1.005-1.030 6, 7 pH 6.0 5.0-7.5 [...] TNP Comment TNP Culture Urine 09/02/[address] [facility] [id number] [place] [address], [address] [place] [address] [phone] Urine Culture, Routine Final report Abnormal 21 Result 1 See Comment: Abnormal 22 BMP W/Egfr 09/02/2020 [facility] [id number] [facility], [address] [place] [address] [phone] Glucose 147 mg/dL High 65-99 23 BUN [...] 33 CBC With Auto Diff 09/02/2020 [facility] [id number] [employer], [address] [place], [place] [address] [phone] WBC 9.4 x10E3/uL 3.4-10.8 34 RBC 3.95 [...] TNP 57 Hemoglobin A1c Panel 09/02/2020 [facility] [id number] [employer], [address] [place] [address] [phone] Hemoglobin A1c 8.1 % High 4.8-5.6 58 Laboratory test finding 04/29/2020 [place] [address] [phone] Bedside Glucose 172 mg/dL High 70-105 Laboratory test finding 04/29/2020 [place] [address] [phone] Bedside Glucose 114 mg/dL High 70-105 Laboratory test finding 04/29/2020 [place] [address] [phone] Bedside Glucose 91 mg/dL Normal 70-105 Laboratory test finding 04/29/2020 [place] [address] [phone] Bedside Glucose 31 mg/dL Critical low 70-105 59 Laboratory test finding 04/29/2020 [facility] [place] [id number] [phone] Bedside Glucose 26 mg/dL Critical low 70-105 60 CBC With Differential 04/29/2020 [place] [address] [phone] White Blood Count 6.9 10 Normal 4.0-10.0 [...] 36.0-66.0 Lymph % 21.7 % Low 24.0-44.0 [place] % 6.9 % High 0.0-5.0 Eos % 2.0 % Normal 0.0-3.0 Baso % 1.9 % High 0.0-1.0 Immature Granulocyte % 0.1 % Normal 0-3.0 Nucleated Red Blood Cell % 0.0 % Normal 0-0 Neutrophils # 4.6 10 Normal 1.5-8.5 Lymph # 1.5 10 Normal 1.5-5.0 [place] # 0.5 10 Normal 0.0-0.8 Eos # 0.1 10 Normal 0.0-0.5 Baso # 0.1 10 Normal 0.0-0.2 Liver Profile 04/29/2020 [place] [address] [phone] Ast/Sgot 20 U/L Normal 7-37 Alt/SGPT 31 U/L Normal 12-78 Alkaline Phosphatase 90 U/L Normal 45-117 Bilirubin,Total 0.1 mg/dL Low 0.2-1.0 Bilirubin,Direct < 0.1 mg/dL Normal 0.0-0.2 Total Protein 7.9 GM/DL Normal 6.4-8.2 Albumin 3.2 GM/DL Normal 3.2-5.2 Albumin/Globulin Ratio 0.7 Low 1.2-2.2 Basic Metabolic Profile 04/29/2020 [place] [address] [phone] Glucose, Fasting 62 mg/dL Low 70-100 Blood [...] 8.5-10.1 Laboratory test finding 04/29/2020 [place] [address] [phone] Thyroid Stimulating Hormone 10.700 uIU/ML High 0 .358-3.740 Free T4 0.75 ng/dL Low 0.76-1.46 Laboratory test finding 04/28/2020 [place] [address] [phone] Bedside Glucose 169 mg/dL High 70-105 1 [...] monitoring the treatment of cancer patients. Siemens [employer] methodology. 3 Units are mL/min/1.73 m2 Chronic Kidney Disease Staging per NKF: Stage I & II GFR >=60 Normal to Mildly Decreased Stage III GFR 30-59 Moderately Decreased Stage IV GFR 15-29 Severely Decreased Stage V GFR <15 Very Little GFR Left ESRD GFR <15 on DE ALCHOLIZER 4 A false negative result may occur [...] pathogens. DISCLAIMER: Testing was performed using the [employer] SARS-CoV-2 test. This test was developed and its performance characteristics determined by [employer]. This test has not been FDA cleared [...] Little GFR Left ESRD GFR <15 on DE ALCHOLIZER 6 SRC: A courtesy copy of th is report has been sent to the patient, SRC: 7 Source of Specimen: 8 Source of Specimen: 9 Source of Specimen: 10 Source of Specimen: 11 Source of Specimen: 12 Source of Specimen: 13 Source of Specimen: 14 Source of Specimen: 15 Source of Specimen: 16 Source of Specimen: 17 Source of Specimen: 18 Source of Specimen: 19 Source of Specimen: UC Microscopic follows if indicated. 20 Source of Specimen: 21 Source of Specimen: 22 Source of Specimen: Beta hemolytic Streptococcus, [...] (group A). (CLSI) 23 Source of Specimen: 24 Source of Specimen: 25 Source of [...] Little GFR Left ESRD GFR <15 on DE ALCHOLIZER Procedures Date Code Description Status 09/02/2020 [id number] EKG Interpretation & Report Comp leted 06/29/2020 [id number] Diabetic Foot Exam Completed 09/05/2019 [id number] Diabetic Foot Exam Completed 11/20/2014 [id number] Mammogram Completed Medical Devices Description No Information [...]
--- OUTSIDE RECORDS SUMMARY | 2020-12-04 17:55 | CCD | Continuity of Care Document ---
Author Author Eli HERNANDES M.D. Organization Unknown Address [address] [place] [address] Phone [phone] Care Team Providers Care Yard Coupler Name Role Phone Mary Hernandes MD AUTM [phone] Problems Description No Information Available Social History [...] HCL 4mg Capsules 1 by mouth at [facility] Unknown History Medications Toujeo Solostar 300U nit/ML Solution Pen-Inject inject 25 units in morning Unknown 1 - 09/21/2020 Hydrocodone-Acetaminophen 5-325mg Tablets 1- 2 tab by mouth every 4 hours as needed for pain Max dose 12/24 hours 30tabs Unknown 09/17/2020 - 09/27/2020 Immunizations CPT Code Status Date Vaccine Lot # [id number] Given 09/02/2020 Influenza Virus Vaccine, Quadrivalent,age 3 and up,multidose vial [id number] Given 09/05/2019 Influenza Virus Vaccine, Quadrivalent,age 3 and up,multidose vial [id number] Given 08/30/2018 Influenza Virus Vaccine, Quadrivalent,age 3 and up,multidose vial [id number] Vital Signs Date Vital Result Comment 09/23/2020 10:52am BP Systolic 161 mmHg BP Diastolic 71 mmHg Heart Rate 101 /min Body Temperature 97.5 F Respiratory Rate 22 /min Height 64.0 inches 5'4" Weight 154.38 lb O2 % BldC Oximetry 98 % Peak Expiratory Flow Rate 361 Estimated Peak Flow Rate [place] Body Weight 120 lb BMI (Body Mass [...] Flow Rate 361 Estimated Peak Flow Rate [place] Body Weight 120 lb BMI (Body Mass Index) 26.0 kg/m2 Results Test Acquired Date Facility Test Result H/L Range Note Laboratory test finding 10/08/2020 [facility] [place] [address] [phone] Bedside Glucose 419 mg/dL High 70-105 Laboratory test finding 10/08/2020 [facility] [place] [address] [phone] Ferritin 20 NG/ML Normal 8-252 Total Iron Binding Capacit 10/08/2020 [place] [address] [phone] Iron (Fe) 18 g/dL Low 50-170 Total Iron Binding Capacity 407 g/dL Normal 250-450 Percent Saturation 4.4 % Low 13.2-45.0 Laboratory test finding 10/08/2020 [facility] [place] [address] [phone] Phosphorus Level 3.3 mg/dL Normal 2.5-4.9 Magnesium Level 1.8 mg/dL Normal 1.8-2.4 Hemoglobin A1c 10/08/2020 [place] [address] [phone] Hemoglobin A1c 7.1 % Normal 1 Estimated Average Glucose 157 mg/dL High 60-110 Laboratory test finding 10/08/2020 [facility] [place] [address] [phone] Acetone/Ketone 42.40 mg/dL High <2.81 Lipase 33 U/L Low 73-393 Osmolality Serum 307 MOSM/KG High 275-295 HCG, Serum Quantitative < 1.0 MIU/ML Normal 2 Basic Metabolic Profile 10/08/2020 [place] [address] [phone] Glucose, Fasting 443 mg/dL Critical high 70-100 [...] Normal 8.5-10.1 Liver Profile 10/08/2020 [place] [address] [phone] Ast/Sgot 8 U/L Normal 7-37 Alt/SGPT 14 U/L Normal 12-78 Alkaline Phosphatase 112 U/L Normal 45-117 Bilirubin,Total 0.4 mg/dL Normal 0.2-1.0 Bilirubin,Direct < 0.1 mg/dL Normal 0.0-0.2 Total Protein 8.5 GM/DL High 6.4-8.2 Albumin 3.4 GM/DL Normal 3.2-5.2 Albumin/Globulin Ratio 0.7 Low 1.2-2.2 Venous Blood Gas 10/08/2020 Patient Service Cent er [facility] [place], [place] [address] [phone] Venous PH 7.353 units Normal 7.330-7.430 Venous Partial Pressure Co2 36.1 mmHg Low 38.0-50.0 Venous Partial Pressure O2 29.3 mmHg Low 30.0-50.0 Venous Total Co2 20.7 mEq/L Low 24.0-28.0 Venous Hco3 19.6 mEq/L Low 23.0-27.0 Venous Base Excess -5.4 Low -2.0-2.0 Venous Standard Hco3 19.3 mEq/L Normal Venous O2 Saturation 49.3 % Low 60.0-80.0 CBC With Differential 10/08/2020 Patient Service Ce nter [facility] [place] [address] [phone] White Blood Count 12.8 10 High 4.0-10.0 [...] 36.0-66.0 Lymph % 8.2 % Low 24.0-44.0 [place] % 5.1 % High 0.0-5.0 Eos % 0.0 % Normal 0.0-3.0 Baso % 0.7 % Normal 0.0-1.0 Immature Granulocyte % 0.7 % Normal 0-3.0 Nucleated Red Blood Cell % 0.0 % Normal 0-0 Neutrophils # 11.0 10 High 1.5-8.5 Lymph # 1.1 10 Low 1.5-5.0 [place] # 0.7 10 Normal 0.0-0.8 Eos # 0.0 10 Normal 0.0-0.5 Baso # 0.1 10 Normal 0.0-0.2 Laboratory test finding 10/08/2020 [facility] [place] [address] [phone] Bedside Glucose 388 mg/dL High 70-105 Ua W/ Reflex To Culture 10/08/2020 [place] [address] [phone] Appearance, Urine RFX CLEAR Normal Clear Color, Urine RFX STRAW Normal Yellow PH,Urine RFX 6.0 units Normal 5.0-9.0 Specific [place] Ur Auto RFX 1.023 Normal 1.002-1.035 Protein, [...] Laboratory test finding 10/08/2020 [place] [address] [phone] Bedside Glucose 254 mg/dL High 70-105 Laboratory test finding 10/08/2020 [place] [address] [phone] Bedside Glucose 275 mg/dL High 70-105 Laboratory test finding 10/08/2020 [place] [address] [phone] Coronavirus 2019 Nasopharygeal <pending> Sars Covid-19 Amplification NEGATIVE Normal Negative 4 Laboratory test finding 10/06/2020 [place] [address] [phone] Erythrocyte Sedimentation Rate 70 mm/hr High 0 -20 CBC With Differential 10/06/2020 [place] [address] [phone] White Blood Count 8.7 10 Normal 4.0-10.0 [...] 36.0-66.0 Lymph % 20.1 % Low 24.0-44.0 [place] % 5.7 % High 0.0-5.0 Eos % 2.6 % Normal 0.0-3.0 Baso % 1.7 % High 0.0-1.0 Immature Granulocyte % 0.3 % Normal 0-3.0 Nucleated Red Blood Cell % 0.0 % Normal 0-0 Neutrophils # 6.1 10 Normal 1.5-8.5 Lymph # 1.8 10 Normal 1.5-5.0 [place] # 0.5 10 Normal 0.0-0.8 Eos # 0.2 10 Normal 0.0-0.5 Baso # 0.2 10 Normal 0.0-0.2 Laboratory test finding 10/06/2020 [place] [address] [phone] C Reactive Protein Quantitativ 0.85 mg/dL High 0 .00-0.30 Basic Metabolic Profile 10/06/2020 [place] [address] [phone] Glucose, Fasting 223 mg/dL High 70-100 Blood [...] mg/dL Normal 8.5-10.1 Urinalysis, Complete 09/02/[address] [facility] [id number] [place] [address], [address] [place] [address] [phone] Specific [place] 1.021 1.005-1.030 6, 7 pH 6.0 5.0-7.5 [...] TNP Comment TNP Culture Urine 09/02/[address] [facility] [id number] [place] [address], [address] [place] [address] [phone] Urine Culture, Routine Final report Abnormal 21 Result 1 See Comment: Abnormal 22 BMP W/Egfr 09/02/2020 [facility] [id number] [facility], [address] [place] [address] [phone] Glucose 147 mg/dL High 65-99 23 BUN [...] 33 CBC With Auto Diff 09/02/2020 [facility] [id number], [address] [place], [place] [address] [phone] WBC 9.4 x10E3/uL 3.4-10.8 34 RBC 3.95 [...] TNP 57 Hemoglobin A1c Panel 09/02/2020 [facility] [id number], [address] [place] [address] [phone] Hemoglobin A1c 8.1 % High 4.8-5.6 58 Laboratory test finding 04/29/2020 [place] [address] [phone] Bedside Glucose 172 mg/dL High 70-105 Laboratory test finding 04/29/2020 [place] [address] [phone] Bedside Glucose 114 mg/dL High 70-105 Laboratory test finding 04/29/2020 [place] [address] [phone] Bedside Glucose 91 mg/dL Normal 70-105 Laboratory test finding 04/29/2020 [place] [address] [phone] Bedside Glucose 31 mg/dL Critical low 70-105 59 Laboratory test finding 04/29/2020 [facility] [place] [id number] [phone] Bedside Glucose 26 mg/dL Critical low 70-105 60 CBC With Differential 04/29/2020 [place] [address] [phone] White Blood Count 6.9 10 Normal 4.0-10.0 [...] 36.0-66.0 Lymph % 21.7 % Low 24.0-44.0 [place] % 6.9 % High 0.0-5.0 Eos % 2.0 % Normal 0.0-3.0 Baso % 1.9 % High 0.0-1.0 Immature Granulocyte % 0.1 % Normal 0-3.0 Nucleated Red Blood Cell % 0.0 % Normal 0-0 Neutrophils # 4.6 10 Normal 1.5-8.5 Lymph # 1.5 10 Normal 1.5-5.0 [place] # 0.5 10 Normal 0.0-0.8 Eos # 0.1 10 Normal 0.0-0.5 Baso # 0.1 10 Normal 0.0-0.2 Liver Profile 04/29/2020 [place] [address] [phone] Ast/Sgot 20 U/L Normal 7-37 Alt/SGPT 31 U/L Normal 12-78 Alkaline Phosphatase 90 U/L Normal 45-117 Bilirubin,Total 0.1 mg/dL Low 0.2-1.0 Bilirubin,Direct < 0.1 mg/dL Normal 0.0-0.2 Total Protein 7.9 GM/DL Normal 6.4-8.2 Albumin 3.2 GM/DL Normal 3.2-5.2 Albumin/Globulin Ratio 0.7 Low 1.2-2.2 Basic Metabolic Profile 04/29/2020 [place] [address] [phone] Glucose, Fasting 62 mg/dL Low 70-100 Blood [...] 8.5-10.1 Laboratory test finding 04/29/2020 [place] [address] [phone] Thyroid Stimulating Hormone 10.700 uIU/ML High 0 .358-3.740 Free T4 0.75 ng/dL Low 0.76-1.46 Laboratory test finding 04/28/2020 [place] [address] [phone] Bedside Glucose 169 mg/dL High 70-105 1 [...] monitoring the treatment of cancer patients. Siem[employer] methodology. 3 Units are mL/min/1.73 m2 Chronic Kidney Disease Staging per NKF: Stage I & II GFR >=60 Normal to Mildly Decreased Stage III GFR 30-59 Moderately Decreased Stage IV GFR 15-29 Severely Decreased Stage V GFR <15 Very Little GFR Left ESRD GFR <15 on REGIONAL ENGINEER 4 A false negative result may [...] pathogens. DISCLAIMER: Testing was performed using the [employer] SARS-CoV-2 test. This test was developed and its performance characteristics determined by [employer]. This test has not been FDA cleared [...] Little GFR Left ESRD GFR <15 on REGIONAL ENGINEER 6 SRC: A courtesy copy of [...] Little GFR Left ESRD GFR <15 on REGIONAL ENGINEER Procedures Date Code Description Status 09/02/2020 [id number] EKG Interpretation & Report Comp leted 06/29/2020 [id number] Diabetic Foot Exam Completed 09/05/2019 [id number] Diabetic Foot Exam Completed 11/20/2014 [id number] Mammogram Completed Medical Devices Description No Information [...]
--- OUTSIDE RECORDS SUMMARY | 2020-12-04 17:55 | CCD | Continuity of Care Document ---
Author Author Eli HERNANDES M.D. Organization Unknown Address [address] [place] [address] Phone [phone] Care Team Providers Care Precision Filer Hand Name Role Phone Mary Hernandes MD AUTM [phone] Problems Description No Information Available Social History [...] HCL 4mg Capsules 1 by mouth at [facility] Unknown History Medications Toujeo Solostar 300U nit/ML Solution Pen-Inject inject 25 units in morning Unknown 1 - 09/21/2020 Hydrocodone-Acetaminophen 5-325mg Tablets 1- 2 tab by mouth every 4 hours as needed for pain Max dose 12/24 hours 30tabs Unknown 09/17/2020 - 09/27/2020 Immunizations CPT Code Status Date Vaccine Lot # [id number] Given 09/02/2020 Influenza Virus Vaccine, Quadrivalent,age 3 and up,multidose vial [id number] Given 09/05/2019 Influenza Virus Vaccine, Quadrivalent,age 3 and up,multidose vial [id number] Given 08/30/2018 Influenza Virus Vaccine, Quadrivalent,age 3 and up,multidose vial [id number] Vital Signs Date Vital Result Comment 09/23/2020 10:52am BP Systolic 161 mmHg BP Diastolic 71 mmHg Heart Rate 101 /min Body Temperature 97.5 F Respiratory Rate 22 /min Height 64.0 inches 5'4" Weight 154.38 lb O2 % BldC Oximetry 98 % Peak Expiratory Flow Rate 361 Estimated Peak Flow Rate [place] Body Weight 120 lb BMI (Body Mass [...] Flow Rate 361 Estimated Peak Flow Rate [place] Body Weight 120 lb BMI (Body Mass Index) 26.0 kg/m2 Results Test Acquired Date Facility Test Result H/L Range Note Laboratory test finding 10/08/2020 [place] [address] [phone] Bedside Glucose 419 mg/dL High 70-105 Laboratory test finding 10/08/2020 [place] [address] [phone] Ferritin 20 NG/ML Normal 8-252 Total Iron Binding Capacit 10/08/2020 [place] [address] [phone] Iron (Fe) 18 g/dL Low 50-170 Total Iron Binding Capacity 407 g/dL Normal 250-450 Percent Saturation 4.4 % Low 13.2-45.0 Laboratory test finding 10/08/2020 [place] [address] [phone] Phosphorus Level 3.3 mg/dL Normal 2.5-4.9 Magnesium Level 1.8 mg/dL Normal 1.8-2.4 Hemoglobin A1c 10/08/2020 [place] [address] [phone] Hemoglobin A1c 7.1 % Normal 1 Estimated Average Glucose 157 mg/dL High 60-110 Laboratory test finding 10/08/2020 [place] [address] [phone] Acetone/Ketone 42.40 mg/dL High <2.81 Lipase 33 U/L Low 73-393 Osmolality Serum 307 MOSM/KG High 275-295 HCG, Serum Quantitative < 1.0 MIU/ML Normal 2 Basic Metabolic Profile 10/08/2020 [place] [address] [phone] Glucose, Fasting 443 mg/dL Critical high 70-100 [...] Normal 8.5-10.1 Liver Profile 10/08/2020 [place] [address] [phone] Ast/Sgot 8 U/L Normal 7-37 Alt/SGPT 14 U/L Normal 12-78 Alkaline Phosphatase 112 U/L Normal 45-117 Bilirubin,Total 0.4 mg/dL Normal 0.2-1.0 Bilirubin,Direct < 0.1 mg/dL Normal 0.0-0.2 Total Protein 8.5 GM/DL High 6.4-8.2 Albumin 3.4 GM/DL Normal 3.2-5.2 Albumin/Globulin Ratio 0.7 Low 1.2-2.2 Venous Blood Gas 10/08/2020 Patient Service [facility] [place], [place] [id number] [phone] Venous PH 7.353 units Normal 7.330-7.430 Venous [...] 10/08/2020 Patient Service Ce nter [facility] [address] [phone] White Blood Count 12.8 10 High 4.0-10.0 [...] 36.0-66.0 Lymph % 8.2 % Low 24.0-44.0 [place] % 5.1 % High 0.0-5.0 Eos % 0.0 % Normal 0.0-3.0 Baso % 0.7 % Normal 0.0-1.0 Immature Granulocyte % 0.7 % Normal 0-3.0 Nucleated Red Blood Cell % 0.0 % Normal 0-0 Neutrophils # 11.0 10 High 1.5-8.5 Lymph # 1.1 10 Low 1.5-5.0 [place] # 0.7 10 Normal 0.0-0.8 Eos # 0.0 10 Normal 0.0-0.5 Baso # 0.1 10 Normal 0.0-0.2 Laboratory test finding 10/08/2020 [place] [address] [phone] Bedside Glucose 388 mg/dL High 70-105 Ua W/ Reflex To Culture 10/08/2020 [place] [address] [phone] Appearance, Urine RFX CLEAR Normal Clear Color, Urine RFX STRAW Normal Yellow PH,Urine RFX 6.0 units Normal 5.0-9.0 Specific [place] Ur Auto RFX 1.023 Normal 1.002-1.035 Protein, [...] Laboratory test finding 10/08/2020 [place] [address] [phone] Bedside Glucose 254 mg/dL High 70-105 Laboratory test finding 10/08/2020 [place] [address] [phone] Bedside Glucose 275 mg/dL High 70-105 Laboratory test finding 10/08/2020 [place] [address] [phone] Coronavirus 2019 Nasopharygeal <pending> Sars Covid-19 Amplification NEGATIVE Normal Negative 4 Laboratory test finding 10/06/2020 [place] [address] [phone] Erythrocyte Sedimentation Rate 70 mm/hr High 0 -20 CBC With Differential 10/06/2020 [place] [address] [phone] White Blood Count 8.7 10 Normal 4.0-10.0 [...] 36.0-66.0 Lymph % 20.1 % Low 24.0-44.0 [place] % 5.7 % High 0.0-5.0 Eos % 2.6 % Normal 0.0-3.0 Baso % 1.7 % High 0.0-1.0 Immature Granulocyte % 0.3 % Normal 0-3.0 Nucleated Red Blood Cell % 0.0 % Normal 0-0 Neutrophils # 6.1 10 Normal 1.5-8.5 Lymph # 1.8 10 Normal 1.5-5.0 [place] # 0.5 10 Normal 0.0-0.8 Eos # 0.2 10 Normal 0.0-0.5 Baso # 0.2 10 Normal 0.0-0.2 Laboratory test finding 10/06/2020 [place] [address] [phone] C Reactive Protein Quantitativ 0.85 mg/dL High 0 .00-0.30 Basic Metabolic Profile 10/06/2020 [place] [address] [phone] Glucose, Fasting 223 mg/dL High 70-100 Blood [...] mg/dL Normal 8.5-10.1 Urinalysis, Complete 09/02/[address] [facility] [id number] [place] [address], [address] [place] [address] [phone] Specific [place] 1.021 1.005-1.030 6, 7 pH 6.0 5.0-7.5 [...] TNP Comment TNP Culture Urine 09/02/[address] [facility] [id number] [place] [address], [address] [place] [address] [phone] Urine Culture, Routine Final report Abnormal 21 Result 1 See Comment: Abnormal 22 BMP W/Egfr 09/02/2020 [facility] [id number] [facility], [address] [place] [address] [phone] Glucose 147 mg/dL High 65-99 23 BUN [...] 33 CBC With Auto Diff 09/02/2020 [facility] [id number] [employer], [address] [place], [place] [address] [phone] WBC 9.4 x10E3/uL 3.4-10.8 34 RBC 3.95 [...] TNP 57 Hemoglobin A1c Panel 09/02/2020 [facility] [id number] [employer], [address] [place] [address] [phone] Hemoglobin A1c 8.1 % High 4.8-5.6 58 Laboratory test finding 04/29/2020 [place] [address] [phone] Bedside Glucose 172 mg/dL High 70-105 Laboratory test finding 04/29/2020 [place] [address] [phone] Bedside Glucose 114 mg/dL High 70-105 Laboratory test finding 04/29/2020 [place] [address] [phone] Bedside Glucose 91 mg/dL Normal 70-105 Laboratory test finding 04/29/2020 [place] [address] [phone] Bedside Glucose 31 mg/dL Critical low 70-105 59 Laboratory test finding 04/29/2020 [facility] [place] [address] [phone] Bedside Glucose 26 mg/dL Critical low 70-105 60 CBC With Differential 04/29/2020 [place] [address] [phone] White Blood Count 6.9 10 Normal 4.0-10.0 [...] 36.0-66.0 Lymph % 21.7 % Low 24.0-44.0 [place] % 6.9 % High 0.0-5.0 Eos % 2.0 % Normal 0.0-3.0 Baso % 1.9 % High 0.0-1.0 Immature Granulocyte % 0.1 % Normal 0-3.0 Nucleated Red Blood Cell % 0.0 % Normal 0-0 Neutrophils # 4.6 10 Normal 1.5-8.5 Lymph # 1.5 10 Normal 1.5-5.0 [place] # 0.5 10 Normal 0.0-0.8 Eos # 0.1 10 Normal 0.0-0.5 Baso # 0.1 10 Normal 0.0-0.2 Liver Profile 04/29/2020 [place] [address] [phone] Ast/Sgot 20 U/L Normal 7-37 Alt/SGPT 31 U/L Normal 12-78 Alkaline Phosphatase 90 U/L Normal 45-117 Bilirubin,Total 0.1 mg/dL Low 0.2-1.0 Bilirubin,Direct < 0.1 mg/dL Normal 0.0-0.2 Total Protein 7.9 GM/DL Normal 6.4-8.2 Albumin 3.2 GM/DL Normal 3.2-5.2 Albumin/Globulin Ratio 0.7 Low 1.2-2.2 Basic Metabolic Profile 04/29/2020 [place] [address] [phone] Glucose, Fasting 62 mg/dL Low 70-100 Blood [...] 8.5-10.1 Laboratory test finding 04/29/2020 [place] [address] [phone] Thyroid Stimulating Hormone 10.700 uIU/ML High 0 .358-3.740 Free T4 0.75 ng/dL Low 0.76-1.46 Laboratory test finding 04/28/2020 [place] [address] [phone] Bedside Glucose 169 mg/dL High 70-105 1 [...] monitoring the treatment of cancer patients. Siemens [employer] methodology. 3 Units are mL/min/1.73 m2 Chronic Kidney Disease Staging per NKF: Stage I & II GFR >=60 Normal to Mildly Decreased Stage III GFR 30-59 Moderately Decreased Stage IV GFR 15-29 Severely Decreased Stage V GFR <15 Very Little GFR Left ESRD GFR <15 on PERISHABLE FREIGHT INSPECTOR 4 A false negative result may occur [...] pathogens. DISCLAIMER: Testing was performed using the [employer] SARS-CoV-2 test. This test was developed and its performance characteristics determined by [employer]. This test has not been FDA cleared [...] Little GFR Left ESRD GFR <15 on PERISHABLE FREIGHT INSPECTOR 6 SRC: A courtesy copy of th [...] Little GFR Left ESRD GFR <15 on PERISHABLE FREIGHT INSPECTOR Procedures Date Code Description Status 09/02/2020 [id number] EKG Interpretation & Report Comp leted 06/29/2020 [id number] Diabetic Foot Exam Completed 09/05/2019 [id number] Diabetic Foot Exam Completed 11/20/2014 [id number] Mammogram Completed Medical Devices Description No Information [...]
--- OUTSIDE RECORDS SUMMARY | 2020-12-04 17:55 | CCD | Continuity of Care Document ---
Author Author Eli HERNANDES M.D. Organization Unknown Address [address] [place] [address] Phone [phone] Care Team Providers Care Process Development Manager Name Role Phone Mary Hernandes MD AUTM [phone] Problems Description No Information Available Social History [...] HCL 4mg Capsules 1 by mouth at [facility] Unknown History Medications Toujeo Solostar 300U nit/ML Solution Pen-Inject inject 25 units in morning Unknown 1 - 09/21/2020 Hydrocodone-Acetaminophen 5-325mg Tablets 1- 2 tab by mouth every 4 hours as needed for pain Max dose 12/24 hours 30tabs Unknown 09/17/2020 - 09/27/2020 Immunizations CPT Code Status Date Vaccine Lot # [id number] Given 09/02/2020 Influenza Virus Vaccine, Quadrivalent,age 3 and up,multidose vial [id number] Given 09/05/2019 Influenza Virus Vaccine, Quadrivalent,age 3 and up,multidose vial [id number] Given 08/30/2018 Influenza Virus Vaccine, Quadrivalent,age 3 and up,multidose vial [id number] Vital Signs Date Vital Result Comment 09/23/2020 10:52am BP Systolic 161 mmHg BP Diastolic 71 mmHg Heart Rate 101 /min Body Temperature 97.5 F Respiratory Rate 22 /min Height 64.0 inches 5'4" Weight 154.38 lb O2 % BldC Oximetry 98 % Peak Expiratory Flow Rate 361 Estimated Peak Flow Rate [place] Body Weight 120 lb BMI (Body Mass [...] Flow Rate 361 Estimated Peak Flow Rate [place] Body Weight 120 lb BMI (Body Mass Index) 26.0 kg/m2 Results Test Acquired Date Facility Test Result H/L Range Note Laboratory test finding 10/08/2020 [place] [address] [phone] Bedside Glucose 419 mg/dL High 70-105 Laboratory test finding 10/08/2020 [place] [address] [phone] Ferritin 20 NG/ML Normal 8-252 Total Iron Binding Capacit 10/08/2020 [place] [address] [phone] Iron (Fe) 18 g/dL Low 50-170 Total Iron Binding Capacity 407 g/dL Normal 250-450 Percent Saturation 4.4 % Low 13.2-45.0 Laboratory test finding 10/08/2020 [place] [address] [phone] Phosphorus Level 3.3 mg/dL Normal 2.5-4.9 Magnesium Level 1.8 mg/dL Normal 1.8-2.4 Hemoglobin A1c 10/08/2020 [place] [address] [phone] Hemoglobin A1c 7.1 % Normal 1 Estimated Average Glucose 157 mg/dL High 60-110 Laboratory test finding 10/08/2020 [place] [address] [phone] Acetone/Ketone 42.40 mg/dL High <2.81 Lipase 33 U/L Low 73-393 Osmolality Serum 307 MOSM/KG High 275-295 HCG, Serum Quantitative < 1.0 MIU/ML Normal 2 Basic Metabolic Profile 10/08/2020 [place] [address] [phone] Glucose, Fasting 443 mg/dL Critical high 70-100 [...] Normal 8.5-10.1 Liver Profile 10/08/2020 [place] [address] [phone] Ast/Sgot 8 U/L Normal 7-37 Alt/SGPT 14 U/L Normal 12-78 Alkaline Phosphatase 112 U/L Normal 45-117 Bilirubin,Total 0.4 mg/dL Normal 0.2-1.0 Bilirubin,Direct < 0.1 mg/dL Normal 0.0-0.2 Total Protein 8.5 GM/DL High 6.4-8.2 Albumin 3.4 GM/DL Normal 3.2-5.2 Albumin/Globulin Ratio 0.7 Low 1.2-2.2 Venous Blood Gas 10/08/2020 Patient Service [facility] er [facility] [place], [place] [address] [phone] Venous PH 7.353 units Normal 7.330-7.430 Venous [...] Service Ce nter [facility] [address] [phone] White Blood Count 12.8 10 High 4.0-10.0 [...] 36.0-66.0 Lymph % 8.2 % Low 24.0-44.0 [place] % 5.1 % High 0.0-5.0 Eos % 0.0 % Normal 0.0-3.0 Baso % 0.7 % Normal 0.0-1.0 Immature Granulocyte % 0.7 % Normal 0-3.0 Nucleated Red Blood Cell % 0.0 % Normal 0-0 Neutrophils # 11.0 10 High 1.5-8.5 Lymph # 1.1 10 Low 1.5-5.0 [place] # 0.7 10 Normal 0.0-0.8 Eos # 0.0 10 Normal 0.0-0.5 Baso # 0.1 10 Normal 0.0-0.2 Laboratory test finding 10/08/2020 [place] [address] [phone] Bedside Glucose 388 mg/dL High 70-105 Ua W/ Reflex To Culture 10/08/2020 [place] [address] [phone] Appearance, Urine RFX CLEAR Normal Clear Color, Urine RFX STRAW Normal Yellow PH,Urine RFX 6.0 units Normal 5.0-9.0 Specific [place] Ur Auto RFX 1.023 Normal 1.002-1.035 Protein, [...] Laboratory test finding 10/08/2020 [place] [address] [phone] Bedside Glucose 254 mg/dL High 70-105 Laboratory test finding 10/08/2020 [place] [address] [phone] Bedside Glucose 275 mg/dL High 70-105 Laboratory test finding 10/08/2020 [place] [address] [phone] Coronavirus 2019 Nasopharygeal <pending> Sars Covid-19 Amplification NEGATIVE Normal Negative 4 Laboratory test finding 10/06/2020 [place] [address] [phone] Erythrocyte Sedimentation Rate 70 mm/hr High 0 -20 CBC With Differential 10/06/2020 [place] [address] [phone] White Blood Count 8.7 10 Normal 4.0-10.0 [...] 36.0-66.0 Lymph % 20.1 % Low 24.0-44.0 [place] % 5.7 % High 0.0-5.0 Eos % 2.6 % Normal 0.0-3.0 Baso % 1.7 % High 0.0-1.0 Immature Granulocyte % 0.3 % Normal 0-3.0 Nucleated Red Blood Cell % 0.0 % Normal 0-0 Neutrophils # 6.1 10 Normal 1.5-8.5 Lymph # 1.8 10 Normal 1.5-5.0 [place] # 0.5 10 Normal 0.0-0.8 Eos # 0.2 10 Normal 0.0-0.5 Baso # 0.2 10 Normal 0.0-0.2 Laboratory test finding 10/06/2020 [place] [address] [phone] C Reactive Protein Quantitativ 0.85 mg/dL High 0 .00-0.30 Basic Metabolic Profile 10/06/2020 [place] [address] [phone] Glucose, Fasting 223 mg/dL High 70-100 Blood [...] mg/dL Normal 8.5-10.1 Urinalysis, Complete 09/02/[address] [facility] [id number] [place] [address], [address] [place] [address] [phone] Specific [place] 1.021 1.005-1.030 6, 7 pH 6.0 5.0-7.5 [...] TNP Comment TNP Culture Urine 09/02/[address] [facility] [id number] [place] [address], [address] [place] [address] [phone] Urine Culture, Routine Final report Abnormal 21 Result 1 See Comment: Abnormal 22 BMP W/Egfr 09/02/2020 [facility] [id number] [facility], [address] [place] [address] [phone] Glucose 147 mg/dL High 65-99 23 BUN [...] 33 CBC With Auto Diff 09/02/2020 [facility] [id number] [employer], [address] [place], [place] [address] [phone] WBC 9.4 x10E3/uL 3.4-10.8 34 RBC 3.95 [...] TNP 57 Hemoglobin A1c Panel 09/02/2020 [facility] [id number] [address], [address] [place] [address] [phone] Hemoglobin A1c 8.1 % High 4.8-5.6 58 Laboratory test finding 04/29/2020 [place] [address] [phone] Bedside Glucose 172 mg/dL High 70-105 Laboratory test finding 04/29/2020 [place] [address] [phone] Bedside Glucose 114 mg/dL High 70-105 Laboratory test finding 04/29/2020 [place] [address] [phone] Bedside Glucose 91 mg/dL Normal 70-105 Laboratory test finding 04/29/2020 [place] [address] [phone] Bedside Glucose 31 mg/dL Critical low 70-105 59 Laboratory test finding 04/29/2020 [facility] [place] [address] [phone] Bedside Glucose 26 mg/dL Critical low 70-105 60 CBC With Differential 04/29/2020 [place] [address] [phone] White Blood Count 6.9 10 Normal 4.0-10.0 [...] 36.0-66.0 Lymph % 21.7 % Low 24.0-44.0 [place] % 6.9 % High 0.0-5.0 Eos % 2.0 % Normal 0.0-3.0 Baso % 1.9 % High 0.0-1.0 Immature Granulocyte % 0.1 % Normal 0-3.0 Nucleated Red Blood Cell % 0.0 % Normal 0-0 Neutrophils # 4.6 10 Normal 1.5-8.5 Lymph # 1.5 10 Normal 1.5-5.0 [place] # 0.5 10 Normal 0.0-0.8 Eos # 0.1 10 Normal 0.0-0.5 Baso # 0.1 10 Normal 0.0-0.2 Liver Profile 04/29/2020 [place] [address] [phone] Ast/Sgot 20 U/L Normal 7-37 Alt/SGPT 31 U/L Normal 12-78 Alkaline Phosphatase 90 U/L Normal 45-117 Bilirubin,Total 0.1 mg/dL Low 0.2-1.0 Bilirubin,Direct < 0.1 mg/dL Normal 0.0-0.2 Total Protein 7.9 GM/DL Normal 6.4-8.2 Albumin 3.2 GM/DL Normal 3.2-5.2 Albumin/Globulin Ratio 0.7 Low 1.2-2.2 Basic Metabolic Profile 04/29/2020 [place] [address] [phone] Glucose, Fasting 62 mg/dL Low 70-100 Blood [...] 8.5-10.1 Laboratory test finding 04/29/2020 [place] [address] [phone] Thyroid Stimulating Hormone 10.700 uIU/ML High 0 .358-3.740 Free T4 0.75 ng/dL Low 0.76-1.46 Laboratory test finding 04/28/2020 [place] [address] [phone] Bedside Glucose 169 mg/dL High 70-105 1 [...] monitoring the treatment of cancer patients. Siemens [employer] methodology. 3 Units are mL/min/1.73 m2 Chronic Kidney Disease Staging per NKF: Stage I & II GFR >=60 Normal to Mildly Decreased Stage III GFR 30-59 Moderately Decreased Stage IV GFR 15-29 Severely Decreased Stage V GFR <15 Very Little GFR Left ESRD GFR <15 on SALES DEVELOPMENT COORDINATOR 4 A false negative result may occur [...] pathogens. DISCLAIMER: Testing was performed using the [employer] SARS-CoV-2 test. This test was developed and its performance characteristics determined by [employer]. This test has not been FDA cleared [...] Little GFR Left ESRD GFR <15 on SALES DEVELOPMENT COORDINATOR 6 SRC: A courtesy copy of th [...] Little GFR Left ESRD GFR <15 on SALES DEVELOPMENT COORDINATOR Procedures Date Code Description Status 09/02/2020 [id number] EKG Interpretation & Report Comp leted 06/29/2020 [id number] Diabetic Foot Exam Completed 09/05/2019 [id number] Diabetic Foot Exam Completed 11/20/2014 [id number] Mammogram Completed Medical Devices Description No Information [...] PA 09/02/2020 I10 Essential (primary) hypertension Hanny Tysno PA 09/02/2020 F17.210 Nicotine dependence, cigarettes, uncomplicated [...]
--- OUTSIDE RECORDS SUMMARY | 2020-12-04 17:56 | CCD | Continuity of Care Document ---
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 01/13/2020 Fluoxetine HCL 40mg Capsules take one capsule by mouth every day 30caps Mary García M .D. 12/03/2019 Chantix 1mg Tablets 1 by mouth twice a day 60tabs F17.210 Mary García M.D. 020 Humalog 100Unit/ML Solution per sliding scale prior to each meal Unknown /0 000 Methocarbamol 500mg Tablets Take one tablet by mouth twice a day Unknown Tizanidine HCL 4mg Capsules 1 by mouth at [facility] Unknown History Medications Toujeo Solostar 300U nit/ML Solution Pen-Inject inject 25 units in morning Unknown 1 - 09/21/2020 Immunizations CPT Code Status Date Vaccine Lot # [id number] Given 09/02/2020 Influenza Virus Vaccine, Quadrivalent,age 3 and up,multidose vial [id number] Given 09/05/2019 Influenza Virus Vaccine, Quadrivalent,age 3 and up,multidose vial [id number] Given 08/30/2018 Influenza Virus Vaccine, Quadrivalent,age 3 and up,multidose vial [id number] Vital Signs Date Vital Result Comment 09/23/2020 10:52am BP Systolic 161 mmHg BP Diastolic 71 mmHg Heart Rate 101 /min Body Temperature 97.5 F Respiratory Rate 22 /min Height 64.0 inches 5'4" Weight 154.38 lb O2 % BldC Oximetry 98 % Peak Expiratory Flow Rate 361 Estimated Peak Flow Rate [place] Body Weight 120 lb BMI (Body Mass [...] Flow Rate 361 Estimated Peak Flow Rate [place] Body Weight 120 lb BMI (Body Mass Index) 26.0 kg/m2 Results Test Acquired Date Facility Test Result H/L Range Note Urinalysis, Complete 09/02/2020 [facility] [id number] [employer], [address] [place] [id number] [phone] Specific [place] 1.021 1.005-1.030 1, 2 pH 6.0 5.0-7.5 3 Urine-Color Yellow Yellow 4 Appearance Clear Clear 5 WBC Esterase Negative Negative 6 Protein Trace Negative/Trace 7 Glucose Negative Negative 8 Ketones Negative Negative 9 Occult Blood Negative Negative 10 Bilirubin Negative Negative 11 Urobilinogen,Semi-Qn 0.2 mg/dL 0.2-1.0 12 Nitrite, Urine Negative Negative 13 Microscopic Examination See Comment: 14 Microscopic Examination See below: 15 WBC 0-5 /hpf 0 - 5 RBC 0-2 /hpf 0 - 2 Epithelial Cells (non renal) 0-10 /hpf 0 - 10 Epithelial Cells (renal) TNP Casts Present /lpf Abnormal None seen Cast Type Hyaline casts N/A Crystals TNP Crystal Type TNP Mucus Threads Present Not Estab. Bacteria None seen None seen/Few Yeast TNP Trichomonas TNP Comment TNP Culture Urine 09/02/[address] [facility] [id number] [place] [address], [address] [place] [address] [phone] Urine Culture, Routine Final report Abnormal 16 Result 1 See Comment: Abnormal 17 BMP W/Egfr 09/02/2020 [facility] [address] [facility], [address] [place] [address] [phone] Glucose 147 mg/dL High 65-99 18 BUN 14 mg/dL 6-24 19 Creatinine 1.00 mg/dL 0.57-1.00 20 eGFR If NonAfricn Am 67 mL/min/1.73 >59 21 eGFR If Africn Am 78 mL/min/1.73 >59 22 BUN/Creatinine Ratio 14 9-23 23 Sodium 136 mmol/L 134-144 24 Potassium 4.7 mmol/L 3.5-5.2 25 Chloride 97 mmol/L 96-106 26 Carbon Dioxide, Total 26 mmol/L 20-29 27 Calcium 9.5 mg/dL 8.7-10.2 28 CBC With Auto Diff 09/02/[address] [facility] [id number] [place] [address], [address] [place] [address] [phone] WBC 9.4 x10E3/uL 3.4-10.8 29 RBC 3.95 x10E6/uL 3.77-5.28 30 Hemoglobin 9.0 g/dL Low 11.1-15.9 31 Hematocrit 30.2 % Low 34.0-46.6 32 MCV 77 fL Low 79-97 33 MCH 22.8 pg Low 26.6-33.0 34 MCHC 29.8 g/dL Low 31.5-35.7 35 RDW 17.0 % High 11.7-15.4 36 Platelets 411 x10E3/uL 150-450 37 Neutrophils 62 % Not Estab. 38 Lymphs 28 % Not Estab. 39 Monocytes 6 % Not Estab. 40 Eos 2 % Not Estab. 41 Basos 2 % Not Estab. 42 Immature Cells TNP 43 Neutrophils (Absolute) 5.9 x10E3/uL 1.4-7.0 44 Lymphs (Absolute) 2.7 x10E3/uL 0.7-3.1 45 Monocytes(Absolute) 0.5 x10E3/uL 0.1-0.9 46 Eos (Absolute) 0.2 x10E3/uL 0.0-0.4 47 Baso (Absolute) 0.2 x10E3/uL 0.0-0.2 48 Immature Granulocytes 0 % Not Estab. 49 Immature Grans (Abs) 0.0 x10E3/uL 0.0-0.1 50 NRBC TNP 51 Hematology Comments: TNP 52 Hemoglobin A1c Panel 09/02/2020 [facility] [id number] [facility], [address] [place], [place] [id number] [phone] Hemoglobin A1c 8.1 % High 4.8-5.6 53 Laboratory test finding 04/29/2020 Patient [facility] [place], [place] [address]10 [phone] Bedside Glucose 172 mg/dL High 70-105 Laboratory test finding 04/29/2020 [facility] [place], [place] [address] [phone] Bedside Glucose 114 mg/dL High 70-105 Laboratory test finding 04/29/2020 Patient Service [place], [place] [id number] [phone] Bedside Glucose 91 mg/dL Normal 70-105 Laboratory test finding 04/29/2020 Patient Service [place], [place] [address] [phone] Bedside Glucose 31 mg/dL Critical low 70-105 54 Laboratory test finding 04/29/2020 Patient [place] [address] [phone] Bedside Glucose 26 mg/dL Critical low 70-105 55 CBC With Differential 04/29/2020 Patient Service Ce nter [facility] [place] [address] [phone] White Blood Count 6.9 10 Normal 4.0-10.0 [...] 36.0-66.0 Lymph % 21.7 % Low 24.0-44.0 [place] % 6.9 % High 0.0-5.0 Eos % 2.0 % Normal 0.0-3.0 Baso % 1.9 % High 0.0-1.0 Immature Granulocyte % 0.1 % Normal 0-3.0 Nucleated Red Blood Cell % 0.0 % Normal 0-0 Neutrophils # 4.6 10 Normal 1.5-8.5 Lymph # 1.5 10 Normal 1.5-5.0 [place] # 0.5 10 Normal 0.0-0.8 Eos # 0.1 10 Normal 0.0-0.5 Baso # 0.1 10 Normal 0.0-0.2 Liver Profile 04/29/2020 Patient Service Cent er [facility] [place] [address] [phone] Ast/Sgot 20 U/L Normal 7-37 Alt/SGPT 31 U/L Normal 12-78 Alkaline Phosphatase 90 U/L Normal 45-117 Bilirubin,Total 0.1 mg/dL Low 0.2-1.0 Bilirubin,Direct < 0.1 mg/dL Normal 0.0-0.2 Total Protein 7.9 GM/DL Normal 6.4-8.2 Albumin 3.2 GM/DL Normal 3.2-5.2 Albumin/Globulin Ratio 0.7 Low 1.2-2.2 Basic Metabolic Profile 04/29/2020 [facility] [place] [address] [phone] Glucose, Fasting 62 mg/dL Low 70-100 Blood Urea Nitrogen 10 mg/dL Normal 7-18 Creatinine For GFR 0.95 mg/dL Normal 0.55-1.30 Glomerular Filtration Rate > 60.0 Normal >58 5 6 Sodium Level 141 mEq/L Normal 136-145 Potassium Serum 3.8 mEq/L Normal 3.5-5.1 Chloride Level 110 mEq/L High 98-107 Carbon Dioxide Level 24 mEq/L Normal 21-32 Anion Gap 7 mEq/L Low 8-16 Calcium Level 8.6 mg/dL Normal 8.5-10.1 Laboratory test finding 04/29/2020 [facility] [place] [id number] [phone] Thyroid Stimulating Hormone 10.700 uIU/ML High 0 .358-3.740 Free T4 0.75 ng/dL Low 0.76-1.46 Laboratory test finding 04/28/2020 [place] [address] [phone] Bedside Glucose 169 mg/dL High 70-105 1 SRC: A courtesy copy of th is report has been sent to the patient, SRC: 2 Source of Specimen: 3 Source of Specimen: 4 Source of Specimen: 5 Source of Specimen: 6 Source of Specimen: 7 Source of Specimen: 8 Source of Specimen: 9 Source of Specimen: 10 Source of Specimen: 11 Source of Specimen: 12 Source of Specimen: UC 13 Source of Specimen: 14 Source of Specimen: Microscopic follows if indicated. 15 Source of Specimen: 16 Source of Specimen: 17 Source of Specimen: Beta hemolytic Streptococcus, group [...] reported for Streptococcus pyogenes (group A). (CLSI) 18 Source of Specimen: UC 19 Source [...] of Specimen: UC 39 Source of Specimen: UC 40 Source of Specimen: UC 41 Source of Specimen: UC 42 Source of Specimen: 43 Source of Specimen: UC 44 Source of Specimen: UC 45 Source of Specimen: UC 46 Source of Specimen: UC 47 Source of Specimen: 48 Source of Specimen: 49 Source of Specimen: 50 Source of Specimen: 51 Source of Specimen: 52 Source of Specimen: 53 Source of Specimen: Prediabetes: 5.7 - 6.4 Diabetes: >6.4 Glycemic control for adults with diabetes: <7.0 54 Doctor Notified Nurse Notified 55 Doctor Notified Nurse Notified 56 Units are mL/min/1.73 m2 Chronic Kidney Disease Staging per NKF: Stage I & II GFR >=60 Normal to Mildly Decreased Stage III GFR 30-59 Moderately Decreased Stage IV GFR 15-29 Severely Decreased Stage V GFR <15 Very Little GFR Left ESRD GFR <15 on [employer]CRE[employer] Procedures Date Code Description Status 09/02/2020 41830 EKG Interpretation & Report Comp leted 06/29/2020 [id number] Diabetic Foot Exam Completed 09/05/2019 [id number] Diabetic Foot Exam Completed 11/20/2014 [id number] Mammogram Completed Medical Devices Description No Information Available Encounters Type Date Location Provider Dx Diagnosis Office Visit 09/02/2020 2:15p Main Office Hanny Geiger PA Z01.818 Encounter for other preprocedural examination E10.9 Type 1 diabetes mellitus wit hout complications 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, lumbar region I10 Essential (primary) hyperten marco a F17.210 Nicotine dependence, cigaret [place], uncomplicated Z23 Encounter for immunization Assessments Date Code Description Provider 09/23/2020 E10.9 Type 1 diabetes mellitus without complications Hanny Geiger PA 09/02/2020 Z01.818 Encounter for other preprocedura l examination Hanny Geiger PA 09/02/2020 E10.9 Type 1 diabetes mellitus without complications Hanny Geiger PA 09/02/2020 M51.06 Intervertebral disc disorders wi th myelopathy, lumbar region Hanny Geiger PA 09/02/2020 I10 Essential (primary) hypertension Hanny Geiger PA 09/02/2020 F17.210 Nicotine dependence, cigarettes, uncomplicated Hanny Geiger PA 09/02/2020 Z23 Encounter for immunization Hanny Garcia PA Plan of Treatment No Information Available Functional Status Functional Condition Comment Date Status Independent with all ADL's Activ e Glasses Active Independent with all IADL's Acti ve Complete lower and upper and lower dentures Active Mental Status Mental Condition Comment Date Status None Active Referrals Description No Information Available
--- OUTSIDE RECORDS SUMMARY | 2020-12-04 17:56 | CCD | Continuity of Care Document ---
Author Author Eli GEIGER PA Organization Unknown Address [address] [place] [address] Phone [phone] Care Team Providers Care Ditch Repairer Name Role Phone Mary García MD [facility] [phone] Problems Description No Information Available Social History Type Date Description Comments Sex Unknown Tobacco Use Start: Unknown Never Used Smokeless Tobacco ETOH Use Denies alcohol use Tobacco Use Start: Unknown Patient is a current smoker, smo kes every day 8 cigarettes per day Recreational Drug Use Denies Drug Use Smoking Status Reviewed: 09/02/20 Patient is a current smoker, smokes every day 8 cigarettes per day Exercise Type/Frequency Exercises sporadically Tattoo/Piercing Pierced ears Tattoo/Piercing Nose Tattoo/Piercing Tattoo multiple Sun Exposure Moderate amount of sun exposure Seat Belt/Car Seat Always uses seat belt Bike Helmet Never Smoke Alarms Yes Smoke Alarms Carbon Monoxide Detector: Yes Allergies, Adverse Reactions, Alerts Description No Known Drug Allergies Medications Active Medications SIG Qnty Indications Ordering Provide r Date Mirtazapine 15mg Tablets take one tablet by mouth every day at bedtime 30tabs Mary García M.D. 01/13/2020 Fluoxetine HCL 40mg Capsules take one capsule by mouth every day 30caps Mary García M .D. 12/03/2019 Chantix 1mg Tablets 1 by mouth twice a day 60tabs F17.210 Mary García M.D. 020 Toujeo Solostar 35Un its Solution Pen-Inject inject 35 units in morning Unknown 0 Humalog 100Unit/ML Solution per sliding scale prior to each meal Unknown 00/00/0 000 Methocarbamol 500mg Tablets Take one tablet by mouth twice a day Unknown Gabapentin 600mg Tablets take one tablet by mouth three times a day 30tabs Unknown Tizanidine HCL 4mg Capsules 1 by mouth at [facility] Unknown Immunizations CPT Code Status Date Vaccine Lot # [id number] Given 09/02/2020 Influenza Virus Vaccine, Quadrivalent,age 3 and up,multidose vial [id number] Given 09/05/2019 Influenza Virus Vaccine, Quadrivalent,age 3 and up,multidose vial [id number] Given 08/30/2018 Influenza Virus Vaccine, Quadrivalent,age 3 and up,multidose vial [id number] Vital Signs Date Vital Result Comment 09/02/2020 2:45pm BP Systolic 143 mmHg BP Diastolic 75 mmHg BP Systolic Recheck 128 mmHg BP Diastolic Recheck 63 mmHg Heart Rate 85 /min Body Temperature 96.9 F Respiratory Rate 17 /min Height 64.0 inches 5'4" Weight 151.38 lb O2 % BldC Oximetry 98 % Peak Expiratory Flow Rate 361 Estimated Peak Flow Rate [place] Body Weight 120 lb BMI (Body Mass Index) 26.0 kg/m2 10/22/2019 8:53am BP Systolic 133 mmHg BP Diastolic 76 mmHg Heart Rate 87 /min Body Temperature 97.8 F Respiratory Rate 16 /min Height 64.0 inches 5'4" Weight 139.50 lb O2 % BldC Oximetry 98 % Peak Expiratory Flow Rate 362 Estimated Peak Flow Rate [place] Body Weight 120 lb BMI (Body Mass Index) 23.9 kg/m2 Results Test Acquired Date Facility Test Result H/L Range Note Urinalysis, Complete 09/02/2020 [facility] [address] [address], [address] [place] [address] [phone] Specific [place] 1.021 1.005-1.030 1, 2 pH 6.0 5.0-7.5 [...] TNP Comment TNP Culture Urine 09/02/2020 [facility] [address] [facility], [address] [place], [place] [address] [phone] Urine Culture, Routine Final report Abnormal 16 Result 1 See Comment: Abnormal 17 BMP W/Egfr 09/02/2020 [facility] [address] [facility], [address] [place], [place] [address] [phone] Glucose 147 mg/dL High 65-99 18 BUN [...] 28 CBC With Auto Diff 09/02/2020 [facility] [id number] [facility], [address] [place], [place] [id number] [phone] WBC 9.4 x10E3/uL 3.4-10.8 29 RBC 3.95 [...] TNP 52 Hemoglobin A1c Panel 09/02/2020 [facility] [address] [facility], [address] [place] [address] [phone] Hemoglobin A1c 8.1 % High 4.8-5.6 53 Laboratory test finding 04/29/2020 [place] [address] [phone] Bedside Glucose 172 mg/dL High 70-105 Laboratory test finding 04/29/2020 [place] [address] [phone] Bedside Glucose 114 mg/dL High 70-105 Laboratory test finding 04/29/2020 Patient Service [place] [address] [phone] Bedside Glucose 91 mg/dL Normal 70-105 Laboratory test finding 04/29/2020 [place] [address] [phone] Bedside Glucose 31 mg/dL Critical low 70-105 54 Laboratory test finding 04/29/2020 Patient Service [place] [address] [phone] Bedside Glucose 26 mg/dL Critical low 70-105 55 CBC With Differential 04/29/2020 Patient Service Ce nter [place], [place] [address] [phone] White Blood Count 6.9 10 Normal 4.0-10.0 [...] 36.0-66.0 Lymph % 21.7 % Low 24.0-44.0 [place] % 6.9 % High 0.0-5.0 Eos % 2.0 % Normal 0.0-3.0 Baso % 1.9 % High 0.0-1.0 Immature Granulocyte % 0.1 % Normal 0-3.0 Nucleated Red Blood Cell % 0.0 % Normal 0-0 Neutrophils # 4.6 10 Normal 1.5-8.5 Lymph # 1.5 10 Normal 1.5-5.0 [place] # 0.5 10 Normal 0.0-0.8 Eos # 0.1 10 Normal 0.0-0.5 Baso # 0.1 10 Normal 0.0-0.2 Liver Profile 04/29/2020 [place] [address] [phone] Ast/Sgot 20 U/L Normal 7-37 Alt/SGPT 31 U/L Normal 12-78 Alkaline Phosphatase 90 U/L Normal 45-117 Bilirubin,Total 0.1 mg/dL Low 0.2-1.0 Bilirubin,Direct < 0.1 mg/dL Normal 0.0-0.2 Total Protein 7.9 GM/DL Normal 6.4-8.2 Albumin 3.2 GM/DL Normal 3.2-5.2 Albumin/Globulin Ratio 0.7 Low 1.2-2.2 Basic Metabolic Profile 04/29/2020 [place] [address] [phone] Glucose, Fasting 62 mg/dL Low 70-100 Blood [...] Laboratory test finding 04/29/2020 [place] [address] [phone] Thyroid Stimulating Hormone 10.700 uIU/ML High 0 .358-3.740 Free T4 0.75 ng/dL Low 0.76-1.46 Laboratory test finding 04/28/2020 [facility] [place], [place] [address] [phone] Bedside Glucose 169 mg/dL High 70-105 1 [...] of Specimen: UC 19 Source of Specimen: 20 Source of Specimen: UC 21 Source of Specimen: UC 22 Source of Specimen: UC 23 Source of Specimen: UC 24 Source of Specimen: UC 25 Source of Specimen: 26 Source of Specimen: 27 Source of Specimen: 28 Source of Specimen: 29 Source of Specimen: 30 Source of Specimen: 31 Source of Specimen: 32 Source of Specimen: UC 33 Source of Specimen: 34 Source of [...] Little GFR Left ESRD GFR <15 on [facility] [employer] Procedures Date Code Description Status 09/02/2020 70516 EKG Interpretation & Report Comp leted 06/29/2020 [id number] Diabetic Foot Exam Completed 09/05/2019 [id number] Diabetic Foot Exam Completed 11/20/2014 [id number] Mammogram Completed Medical Devices Description No Information [...] for immunization Assessments Date Code Description Provider 09/02/2020 Z01.818 Encounter for other preprocedura l examination Hanny Geiger PA 09/02/2020 E10.9 Type 1 diabetes mellitus without complications Hanny Geiger PA 09/02/2020 M51.06 Intervertebral disc disorders wi th myelopathy, lumbar region Hanny Geiger PA 09/02/2020 I10 Essential (primary) hypertension Hanny Geiger PA 09/02/2020 F17.210 Nicotine dependence, cigarettes, uncomplicated Hanny Geiger PA 09/02/2020 Z23 Encounter for immunization Hanny Garcia PA Plan of Treatment 09/02/2020 - Hanny Geiger PA* Z01.818 Encounter for other preprocedural examination* Comments:* 45 yo with history of type I Diabetes and nicotine dependenceEKG done today shows sinus rhythm without acute changesNo acute cardiopulmonary symptomscleared to proceed with planned procedure * E10.9 Type 1 diabetes mellitus without complications* Comments:* Followed by Dr. Boyle. Last A1c 7.2% * M51.06 Intervertebral disc disorders with myelopathy, lumbar region * I10 Essential (primary) hypertension * F17.210 Nicotine dependence, cigarettes, uncomplicated * Z23 Encounter for immunization Functional Status Functional Condition Comment Date Status Independent with all ADL's Activ e Glasses Active Independent with all IADL's Acti ve Complete lower and upper and lower dentures Active Mental Status Mental Condition Comment Date Status None Active Referrals Description No Information Available
--- OUTSIDE RECORDS SUMMARY | 2020-12-04 17:56 | CCD | Continuity of Care Document ---
Author Author Eli HERNANDES M.D. Organization Unknown Address [address] [place] [address] Phone [phone] Care Team Providers Care And Drying Supervisor Cooking Casing Name Role Phone Mary Hernandes MD AUTM [phone] Problems Description No Information Available Social History [...] HCL 4mg Capsules 1 by mouth at [facility] Unknown History Medications Toujeo Solostar 300U nit/ML Solution Pen-Inject inject 25 units in morning Unknown 1 - 09/21/2020 Hydrocodone-Acetaminophen 5-325mg Tablets 1- 2 tab by mouth every 4 hours as needed for pain Max dose 12/24 hours 30tabs Unknown 09/17/2020 - 09/27/2020 Immunizations CPT Code Status Date Vaccine Lot # [id number] Given 09/02/2020 Influenza Virus Vaccine, Quadrivalent,age 3 and up,multidose vial [id number] Given 09/05/2019 Influenza Virus Vaccine, Quadrivalent,age 3 and up,multidose vial [id number] Given 08/30/2018 Influenza Virus Vaccine, Quadrivalent,age 3 and up,multidose vial [id number] Vital Signs Date Vital Result Comment 09/23/2020 10:52am BP Systolic 161 mmHg BP Diastolic 71 mmHg Heart Rate 101 /min Body Temperature 97.5 F Respiratory Rate 22 /min Height 64.0 inches 5'4" Weight 154.38 lb O2 % BldC Oximetry 98 % Peak Expiratory Flow Rate 361 Estimated Peak Flow Rate [place] Body Weight 120 lb BMI (Body Mass [...] Flow Rate 361 Estimated Peak Flow Rate [place] Body Weight 120 lb BMI (Body Mass Index) 26.0 kg/m2 Results Test Acquired Date Facility Test Result H/L Range Note Laboratory test finding 10/08/2020 [facility] [place] [address] [phone] Bedside Glucose 419 mg/dL High 70-105 Laboratory test finding 10/08/2020 [facility] [place] [address] [phone] Ferritin 20 NG/ML Normal 8-252 Total Iron Binding Capacit 10/08/2020 [place] [address] [phone] Iron (Fe) 18 g/dL Low 50-170 Total Iron Binding Capacity 407 g/dL Normal 250-450 Percent Saturation 4.4 % Low 13.2-45.0 Laboratory test finding 10/08/2020 [facility] [place] [address] [phone] Phosphorus Level 3.3 mg/dL Normal 2.5-4.9 Magnesium Level 1.8 mg/dL Normal 1.8-2.4 Hemoglobin A1c 10/08/2020 [place] [address] [phone] Hemoglobin A1c 7.1 % Normal 1 Estimated Average Glucose 157 mg/dL High 60-110 Laboratory test finding 10/08/2020 [facility] [place] [address] [phone] Acetone/Ketone 42.40 mg/dL High <2.81 Lipase 33 U/L Low 73-393 Osmolality Serum 307 MOSM/KG High 275-295 HCG, Serum Quantitative < 1.0 MIU/ML Normal 2 Basic Metabolic Profile 10/08/2020 [place] [address] [phone] Glucose, Fasting 443 mg/dL Critical high 70-100 [...] Normal 8.5-10.1 Liver Profile 10/08/2020 [place] [address] [phone] Ast/Sgot 8 U/L Normal 7-37 Alt/SGPT 14 U/L Normal 12-78 Alkaline Phosphatase 112 U/L Normal 45-117 Bilirubin,Total 0.4 mg/dL Normal 0.2-1.0 Bilirubin,Direct < 0.1 mg/dL Normal 0.0-0.2 Total Protein 8.5 GM/DL High 6.4-8.2 Albumin 3.4 GM/DL Normal 3.2-5.2 Albumin/Globulin Ratio 0.7 Low 1.2-2.2 Venous Blood Gas 10/08/2020 [facility] [place], [place] [id number] [phone] Venous PH 7.353 units Normal 7.330-7.430 Venous [...] 10/08/2020 Patient Service Ce nter [facility] [place] [address] [phone] White Blood Count 12.8 10 High 4.0-10.0 [...] 36.0-66.0 Lymph % 8.2 % Low 24.0-44.0 [place]th % 5.1 % High 0.0-5.0 Eos % 0.0 % Normal 0.0-3.0 Baso % 0.7 % Normal 0.0-1.0 Immature Granulocyte % 0.7 % Normal 0-3.0 Nucleated Red Blood Cell % 0.0 % Normal 0-0 Neutrophils # 11.0 10 High 1.5-8.5 Lymph # 1.1 10 Low 1.5-5.0 [place]th # 0.7 10 Normal 0.0-0.8 Eos # 0.0 10 Normal 0.0-0.5 Baso # 0.1 10 Normal 0.0-0.2 Laboratory test finding 10/08/2020 [facility] [place] [address] [phone] Bedside Glucose 388 mg/dL High 70-105 Ua W/ Reflex To Culture 10/08/2020 [place] [address] [phone] Appearance, Urine RFX CLEAR Normal Clear Color, Urine RFX STRAW Normal Yellow PH,Urine RFX 6.0 units Normal 5.0-9.0 Specific [place] Ur Auto RFX 1.023 Normal 1.002-1.035 Protein, [...] Laboratory test finding 10/08/2020 [place] [address] [phone] Bedside Glucose 254 mg/dL High 70-105 Laboratory test finding 10/08/2020 [place] [address] [phone] Bedside Glucose 275 mg/dL High 70-105 Laboratory test finding 10/08/2020 [place] [address] [phone] Coronavirus 2019 Nasopharygeal <pending> Sars Covid-19 Amplification NEGATIVE Normal Negative 4 Laboratory test finding 10/06/2020 [place] [address] [phone] Erythrocyte Sedimentation Rate 70 mm/hr High 0 -20 CBC With Differential 10/06/2020 [place] [address] [phone] White Blood Count 8.7 10 Normal 4.0-10.0 [...] 36.0-66.0 Lymph % 20.1 % Low 24.0-44.0 [place] % 5.7 % High 0.0-5.0 Eos % 2.6 % Normal 0.0-3.0 Baso % 1.7 % High 0.0-1.0 Immature Granulocyte % 0.3 % Normal 0-3.0 Nucleated Red Blood Cell % 0.0 % Normal 0-0 Neutrophils # 6.1 10 Normal 1.5-8.5 Lymph # 1.8 10 Normal 1.5-5.0 [place]th # 0.5 10 Normal 0.0-0.8 Eos # 0.2 10 Normal 0.0-0.5 Baso # 0.2 10 Normal 0.0-0.2 Laboratory test finding 10/06/2020 [place] [address] [phone] C Reactive Protein Quantitativ 0.85 mg/dL High 0 .00-0.30 Basic Metabolic Profile 10/06/2020 [place] [address] [phone] Glucose, Fasting 223 mg/dL High 70-100 Blood [...] mg/dL Normal 8.5-10.1 Urinalysis, Complete 09/02/[address] [facility] [id number] [place] [address], [address] [place] [address] [phone] Specific [place] 1.021 1.005-1.030 6, 7 pH 6.0 5.0-7.5 [...] TNP Comment TNP Culture Urine 09/02/[address] [facility] [id number] [place] [address], [address] [place] [address] [phone] Urine Culture, Routine Final report Abnormal 21 Result 1 See Comment: Abnormal 22 BMP W/Egfr 09/02/2020 [facility] [id number] [facility], [address] [place] [address] [phone] Glucose 147 mg/dL High 65-99 23 BUN [...] 33 CBC With Auto Diff 09/02/2020 [facility] [id number] [facility], [address] [place], [place] [address] [phone] WBC 9.4 x10E3/uL 3.4-10.8 34 RBC 3.95 [...] TNP 57 Hemoglobin A1c Panel 09/02/2020 [facility] [id number] [address], [address] [place] [address] [phone] Hemoglobin A1c 8.1 % High 4.8-5.6 58 Laboratory test finding 04/29/2020 [place] [address] [phone] Bedside Glucose 172 mg/dL High 70-105 Laboratory test finding 04/29/2020 [place] [address] [phone] Bedside Glucose 114 mg/dL High 70-105 Laboratory test finding 04/29/2020 [place] [address] [phone] Bedside Glucose 91 mg/dL Normal 70-105 Laboratory test finding 04/29/2020 [place] [address] [phone] Bedside Glucose 31 mg/dL Critical low 70-105 59 Laboratory test finding 04/29/2020 [facility] [place] [address] [phone] Bedside Glucose 26 mg/dL Critical low 70-105 60 CBC With Differential 04/29/2020 [place] [address] [phone] White Blood Count 6.9 10 Normal 4.0-10.0 [...] 36.0-66.0 Lymph % 21.7 % Low 24.0-44.0 Smyth % 6.9 % High 0.0-5.0 Eos % 2.0 % Normal 0.0-3.0 Baso % 1.9 % High 0.0-1.0 Immature Granulocyte % 0.1 % Normal 0-3.0 Nucleated Red Blood Cell % 0.0 % Normal 0-0 Neutrophils # 4.6 10 Normal 1.5-8.5 Lymph # 1.5 10 Normal 1.5-5.0 Smyth # 0.5 10 Normal 0.0-0.8 Eos # 0.1 10 Normal 0.0-0.5 Baso # 0.1 10 Normal 0.0-0.2 Liver Profile 04/29/2020 [place] [address] [phone] Ast/Sgot 20 U/L Normal 7-37 Alt/SGPT 31 U/L Normal 12-78 Alkaline Phosphatase 90 U/L Normal 45-117 Bilirubin,Total 0.1 mg/dL Low 0.2-1.0 Bilirubin,Direct < 0.1 mg/dL Normal 0.0-0.2 Total Protein 7.9 GM/DL Normal 6.4-8.2 Albumin 3.2 GM/DL Normal 3.2-5.2 Albumin/Globulin Ratio 0.7 Low 1.2-2.2 Basic Metabolic Profile 04/29/2020 [place] [address] [phone] Glucose, Fasting 62 mg/dL Low 70-100 Blood [...] 8.5-10.1 Laboratory test finding 04/29/2020 [place] [address] [phone] Thyroid Stimulating Hormone 10.700 uIU/ML High 0 .358-3.740 Free T4 0.75 ng/dL Low 0.76-1.46 Laboratory test finding 04/28/2020 [place] [address] [phone] Bedside Glucose 169 mg/dL High 70-105 1 [...] monitoring the treatment of cancer patients. Siemens Endovention methodology. 3 Units are mL/min/1.73 m2 Chronic Kidney Disease Staging per NKF: Stage I & II GFR >=60 Normal to Mildly Decreased Stage III GFR 30-59 Moderately Decreased Stage IV GFR 15-29 Severely Decreased Stage V GFR <15 Very Little GFR Left ESRD GFR <15 on IT SECURITY CONSULTING DIRECTOR 4 A false negative result may occur [...] pathogens. DISCLAIMER: Testing was performed using the [employer] SARS-CoV-2 test. This test was developed and its performance characteristics determined by [employer]. This test has not been FDA cleared [...] Little GFR Left ESRD GFR <15 on IT SECURITY CONSULTING DIRECTOR 6 SRC: A courtesy copy of th [...] Little GFR Left ESRD GFR <15 on IT SECURITY CONSULTING DIRECTOR Procedures Date Code Description Status 09/02/2020 [id number] EKG Interpretation & Report Comp leted 06/29/2020 [id number] Diabetic Foot Exam Completed 09/05/2019 [id number] Diabetic Foot Exam Completed 11/20/2014 [id number] Mammogram Completed Medical Devices Description No Information [...]
--- OUTSIDE RECORDS SUMMARY | 2020-12-04 17:56 | CCD | Continuity of Care Document ---
Author Author Eli HERNANDES M.D. Organization Unknown Address [address] [place] [address] Phone [phone] Care Team Providers Care Erisa Attorney Name Role Phone Mary Hernandes MD AUTM [phone] Problems Description No Information Available Social History [...] by mouth at [facility] Unknown History Medications Toujeo Solostar 300U nit/ML Solution Pen-Inject inject 25 units in morning Unknown 1 - 09/21/2020 Hydrocodone-Acetaminophen 5-325mg Tablets 1- 2 tab by mouth every 4 hours as needed for pain Max dose 12/24 hours 30tabs Unknown 09/17/2020 - 09/27/2020 Immunizations CPT Code Status Date Vaccine Lot # [id number] Given 09/02/2020 Influenza Virus Vaccine, Quadrivalent,age 3 and up,multidose vial [id number] Given 09/05/2019 Influenza Virus Vaccine, Quadrivalent,age 3 and up,multidose vial [id number] Given 08/30/2018 Influenza Virus Vaccine, Quadrivalent,age 3 and up,multidose vial [id number] Vital Signs Date Vital Result Comment 09/23/2020 10:52am BP Systolic 161 mmHg BP Diastolic 71 mmHg Heart Rate 101 /min Body Temperature 97.5 F Respiratory Rate 22 /min Height 64.0 inches 5'4" Weight 154.38 lb O2 % BldC Oximetry 98 % Peak Expiratory Flow Rate 361 Estimated Peak Flow Rate [place] Body Weight 120 lb BMI (Body Mass [...] Flow Rate 361 Estimated Peak Flow Rate [place] Body Weight 120 lb BMI (Body Mass Index) 26.0 kg/m2 Results Test Acquired Date Facility Test Result H/L Range Note Basic Metabolic Profile 10/06/2020 [place] [address] [phone] Glucose, Fasting 223 mg/dL High 70-100 Blood Urea Nitrogen 9 mg/dL Normal 7-18 Creatinine For GFR 0.79 mg/dL Normal 0.55-1.30 Glomerular Filtration Rate > 60.0 Normal >58 1 Sodium Level 135 mEq/L Low 136-145 Potassium Serum 4.0 mEq/L Normal 3.5-5.1 Chloride Level 102 mEq/L Normal 98-107 Carbon Dioxide Level 25 mEq/L Normal 21-32 Anion Gap 8 mEq/L Normal 8-16 Calcium Level 8.7 mg/dL Normal 8.5-10.1 Laboratory test finding 10/06/2020 [place] [address] [phone] C Reactive Protein Quantitativ 0.85 mg/dL High 0 .00-0.30 CBC With Differential 10/06/2020 [place] [address] [phone] White Blood Count 8.7 10 Normal 4.0-10.0 [...] 36.0-66.0 Lymph % 20.1 % Low 24.0-44.0 [place] % 5.7 % High 0.0-5.0 Eos % 2.6 % Normal 0.0-3.0 Baso % 1.7 % High 0.0-1.0 Immature Granulocyte % 0.3 % Normal 0-3.0 Nucleated Red Blood Cell % 0.0 % Normal 0-0 Neutrophils # 6.1 10 Normal 1.5-8.5 Lymph # 1.8 10 Normal 1.5-5.0 [place] # 0.5 10 Normal 0.0-0.8 Eos # 0.2 10 Normal 0.0-0.5 Baso # 0.2 10 Normal 0.0-0.2 Laboratory test finding 10/06/2020 [facility] [place] [address] [phone] Erythrocyte Sedimentation Rate 70 mm/hr High 0 -20 Urinalysis, Complete 09/02/2020 [facility] [id number] [facility], [address] [place] [address] [phone] Specific [place] 1.021 1.005-1.030 2, 3 pH 6.0 5.0-7.5 4 Urine-Color Yellow Yellow 5 Appearance Clear Clear 6 WBC Esterase Negative Negative 7 Protein Trace Negative/Trace 8 Glucose Negative Negative 9 Ketones Negative Negative 10 Occult Blood Negative Negative 11 Bilirubin Negative Negative 12 Urobilinogen,Semi-Qn 0.2 mg/dL 0.2-1.0 13 Nitrite, Urine Negative Negative 14 Microscopic Examination See Comment: 15 Microscopic Examination See below: 16 WBC 0-5 /hpf 0 - 5 RBC 0-2 /hpf 0 - 2 Epithelial Cells (non renal) 0-10 /hpf 0 - 10 Epithelial Cells (renal) TNP Casts Present /lpf Abnormal None seen Cast Type Hyaline casts N/A Crystals TNP Crystal Type TNP Mucus Threads Present Not Estab. Bacteria None seen None seen/Few Yeast TNP Trichomonas TNP Comment TNP Culture Urine 09/02/2020 [facility] [id number] [facility], [address] [place], [place] [id number] [phone] Urine Culture, Routine Final report Abnormal 17 Result 1 See Comment: Abnormal 18 BMP W/Egfr 09/02/[address] [facility] [id number] [place] [address], [address] [place], [place] [address] [phone] Glucose 147 mg/dL High 65-99 19 BUN 14 mg/dL 6-24 20 Creatinine 1.00 mg/dL 0.57-1.00 21 eGFR If NonAfricn Am 67 mL/min/1.73 >59 22 eGFR If Africn Am 78 mL/min/1.73 >59 23 BUN/Creatinine Ratio 14 9-23 24 Sodium 136 mmol/L 134-144 25 Potassium 4.7 mmol/L 3.5-5.2 26 Chloride 97 mmol/L 96-106 27 Carbon Dioxide, Total 26 mmol/L 20-29 28 Calcium 9.5 mg/dL 8.7-10.2 29 CBC With Auto Diff 09/02/2020 [facility] [id number] [facility], [address] [place] [address] [phone] WBC 9.4 x10E3/uL 3.4-10.8 30 RBC 3.95 x10E6/uL 3.77-5.28 31 Hemoglobin 9.0 g/dL Low 11.1-15.9 32 Hematocrit 30.2 % Low 34.0-46.6 33 MCV 77 fL Low 79-97 34 MCH 22.8 pg Low 26.6-33.0 35 MCHC 29.8 g/dL Low 31.5-35.7 36 RDW 17.0 % High 11.7-15.4 37 Platelets 411 x10E3/uL 150-450 38 Neutrophils 62 % Not Estab. 39 Lymphs 28 % Not Estab. 40 Monocytes 6 % Not Estab. 41 Eos 2 % Not Estab. 42 Basos 2 % Not Estab. 43 Immature Cells TNP 44 Neutrophils (Absolute) 5.9 x10E3/uL 1.4-7.0 45 Lymphs (Absolute) 2.7 x10E3/uL 0.7-3.1 46 Monocytes(Absolute) 0.5 x10E3/uL 0.1-0.9 47 Eos (Absolute) 0.2 x10E3/uL 0.0-0.4 48 Baso (Absolute) 0.2 x10E3/uL 0.0-0.2 49 Immature Granulocytes 0 % Not Estab. 50 Immature Grans (Abs) 0.0 x10E3/uL 0.0-0.1 51 NRBC TNP 52 Hematology Comments: TNP 53 Hemoglobin A1c Panel 09/02/2020 [facility] [id number] [facility], [address] [place] [address] [phone] Hemoglobin A1c 8.1 % High 4.8-5.6 54 Laboratory test finding 04/29/2020 [facility] [place], [place] [address] [phone] Bedside Glucose 172 mg/dL High 70-105 Laboratory test finding 04/29/2020 [place] [address] [phone] Bedside Glucose 114 mg/dL High 70-105 Laboratory test finding 04/29/2020 [place] [address] [phone] Bedside Glucose 91 mg/dL Normal 70-105 Laboratory test finding 04/29/2020 [place] [address] [phone] Bedside Glucose 31 mg/dL Critical low 70-105 55 Laboratory test finding 04/29/2020 [place] [address] [phone] Bedside Glucose 26 mg/dL Critical low 70-105 56 CBC With Differential 04/29/2020 [place] [address] [phone] White Blood Count 6.9 10 Normal 4.0-10.0 [...] 36.0-66.0 Lymph % 21.7 % Low 24.0-44.0 [place] % 6.9 % High 0.0-5.0 Eos % 2.0 % Normal 0.0-3.0 Baso % 1.9 % High 0.0-1.0 Immature Granulocyte % 0.1 % Normal 0-3.0 Nucleated Red Blood Cell % 0.0 % Normal 0-0 Neutrophils # 4.6 10 Normal 1.5-8.5 Lymph # 1.5 10 Normal 1.5-5.0 [place] # 0.5 10 Normal 0.0-0.8 Eos # 0.1 10 Normal 0.0-0.5 Baso # 0.1 10 Normal 0.0-0.2 Liver Profile 04/29/2020 [place] [address] [phone] Ast/Sgot 20 U/L Normal 7-37 Alt/SGPT 31 U/L Normal 12-78 Alkaline Phosphatase 90 U/L Normal 45-117 Bilirubin,Total 0.1 mg/dL Low 0.2-1.0 Bilirubin,Direct < 0.1 mg/dL Normal 0.0-0.2 Total Protein 7.9 GM/DL Normal 6.4-8.2 Albumin 3.2 GM/DL Normal 3.2-5.2 Albumin/Globulin Ratio 0.7 Low 1.2-2.2 Basic Metabolic Profile 04/29/2020 [place] [address] [phone] Glucose, Fasting 62 mg/dL Low 70-100 Blood Urea Nitrogen 10 mg/dL Normal 7-18 Creatinine For GFR 0.95 mg/dL Normal 0.55-1.30 Glomerular Filtration Rate > 60.0 Normal >58 5 7 Sodium Level 141 mEq/L Normal 136-145 Potassium Serum 3.8 mEq/L Normal 3.5-5.1 Chloride Level 110 mEq/L High 98-107 Carbon Dioxide Level 24 mEq/L Normal 21-32 Anion Gap 7 mEq/L Low 8-16 Calcium Level 8.6 mg/dL Normal 8.5-10.1 Laboratory test finding 04/29/2020 [place] [address] [phone] Thyroid Stimulating Hormone 10.700 uIU/ML High 0 .358-3.740 Free T4 0.75 ng/dL Low 0.76-1.46 Laboratory test finding 04/28/2020 [place] [address] [phone] Bedside Glucose 169 mg/dL High 70-105 1 Units are mL/min/1.73 m2 Chronic Kidney Disease Staging per NKF: Stage I & II GFR >=60 Normal to Mildly Decreased Stage III GFR 30-59 Moderately Decreased Stage IV GFR 15-29 Severely Decreased Stage V GFR <15 Very Little GFR Left ESRD GFR <15 on INSIDE SALES ADMINISTRATOR 2 SRC:UC A courtesy copy of th is report has been sent to the patient, SRC:UC 3 Source of Specimen: UC 4 Source of Specimen: UC 5 Source of Specimen: UC 6 Source of Specimen: UC 7 Source of Specimen: UC 8 Source of Specimen: UC 9 Source of Specimen: 10 Source of Specimen: 11 Source of Specimen: 12 Source of Specimen: 13 Source of Specimen: 14 Source of Specimen: 15 Source of Specimen: Microscopic follows if indicated. 16 Source of Specimen: 17 Source of Specimen: 18 Source of Specimen: Beta hemolytic Streptococcus, group [...] reported for Streptococcus pyogenes (group A). (CLSI) 19 Source of Specimen: 20 Source of Specimen: 21 Source of Specimen: 22 Source of Specimen: 23 Source of Specimen: 24 Source of [...] Source of Specimen: 54 Source of Specimen: Prediabetes: 5.7 - 6.4 Diabetes: >6.4 Glycemic control for adults with diabetes: <7.0 55 Doctor Notified Nurse Notified 56 Doctor Notified Nurse Notified 57 Units are mL/min/1.73 m2 Chronic Kidney Disease Staging per NKF: Stage I & II GFR >=60 Normal to Mildly Decreased Stage III GFR 30-59 Moderately Decreased Stage IV GFR 15-29 Severely Decreased Stage V GFR <15 Very Little GFR Left ESRD GFR <15 on INSIDE SALES ADMINISTRATOR Procedures Date Code Description Status 09/02/2020 [id number] EKG Interpretation & Report Comp leted 06/29/2020 [id number] Diabetic Foot Exam Completed 09/05/2019 [id number] Diabetic Foot Exam Completed 11/20/2014 [id number] Mammogram Completed Medical Devices Description No Information [...]
--- OUTSIDE RECORDS SUMMARY | 2020-12-04 17:56 | CCD | Continuity of Care Document ---
Author Author Eli HERNANDES M.D. Organization Unknown Address [address] [place] [address] Phone [phone] Care Team Providers Care Flood Control Engineer Name Role Phone Mary Hernandes MD AUTM [phone] Problems Description No Information Available Social History [...] HCL 4mg Capsules 1 by mouth at [facility] Unknown History Medications Toujeo Solostar 300U nit/ML Solution Pen-Inject inject 25 units in morning Unknown 1 - 09/21/2020 Hydrocodone-Acetaminophen 5-325mg Tablets 1- 2 tab by mouth every 4 hours as needed for pain Max dose 12/24 hours 30tabs Unknown 09/17/2020 - 09/27/2020 Immunizations CPT Code Status Date Vaccine Lot # [id number] Given 09/02/2020 Influenza Virus Vaccine, Quadrivalent,age 3 and up,multidose vial [id number] Given 09/05/2019 Influenza Virus Vaccine, Quadrivalent,age 3 and up,multidose vial [id number] Given 08/30/2018 Influenza Virus Vaccine, Quadrivalent,age 3 and up,multidose vial [id number] Vital Signs Date Vital Result Comment 09/23/2020 10:52am BP Systolic 161 mmHg BP Diastolic 71 mmHg Heart Rate 101 /min Body Temperature 97.5 F Respiratory Rate 22 /min Height 64.0 inches 5'4" Weight 154.38 lb O2 % BldC Oximetry 98 % Peak Expiratory Flow Rate 361 Estimated Peak Flow Rate [place] Body Weight 120 lb BMI (Body Mass [...] Flow Rate 361 Estimated Peak Flow Rate [place] Body Weight 120 lb BMI (Body Mass Index) 26.0 kg/m2 Results Test Acquired Date Facility Test Result H/L Range Note Laboratory test finding 10/08/2020 [place] [address] [phone] Bedside Glucose 419 mg/dL High 70-105 Laboratory test finding 10/08/2020 [place] [address] [phone] Ferritin 20 NG/ML Normal 8-252 Total Iron Binding Capacit 10/08/2020 [place] [address] [phone] Iron (Fe) 18 g/dL Low 50-170 Total Iron Binding Capacity 407 g/dL Normal 250-450 Percent Saturation 4.4 % Low 13.2-45.0 Laboratory test finding 10/08/2020 [place] [address] [phone] Phosphorus Level 3.3 mg/dL Normal 2.5-4.9 Magnesium Level 1.8 mg/dL Normal 1.8-2.4 Hemoglobin A1c 10/08/2020 [place] [address] [phone] Hemoglobin A1c 7.1 % Normal 1 Estimated Average Glucose 157 mg/dL High 60-110 Laboratory test finding 10/08/2020 [place] [address] [phone] Acetone/Ketone 42.40 mg/dL High <2.81 Lipase 33 U/L Low 73-393 Osmolality Serum 307 MOSM/KG High 275-295 HCG, Serum Quantitative < 1.0 MIU/ML Normal 2 Basic Metabolic Profile 10/08/2020 [place] [address] [phone] Glucose, Fasting 443 mg/dL Critical high 70-100 [...] Normal 8.5-10.1 Liver Profile 10/08/2020 [place] [address] [phone] Ast/Sgot 8 U/L Normal 7-37 Alt/SGPT 14 U/L Normal 12-78 Alkaline Phosphatase 112 U/L Normal 45-117 Bilirubin,Total 0.4 mg/dL Normal 0.2-1.0 Bilirubin,Direct < 0.1 mg/dL Normal 0.0-0.2 Total Protein 8.5 GM/DL High 6.4-8.2 Albumin 3.4 GM/DL Normal 3.2-5.2 Albumin/Globulin Ratio 0.7 Low 1.2-2.2 Venous Blood Gas 10/08/[address] [facility] [place], [place] [id number] [phone] Venous PH 7.353 units Normal 7.330-7.430 Venous Partial Pressure Co2 36.1 mmHg Low 38.0-50.0 Venous Partial Pressure O2 29.3 mmHg Low 30.0-50.0 Venous Total Co2 20.7 mEq/L Low 24.0-28.0 Venous Hco3 19.6 mEq/L Low 23.0-27.0 Venous Base Excess -5.4 Low -2.0-2.0 Venous Standard Hco3 19.3 mEq/L Normal Venous O2 Saturation 49.3 % Low 60.0-80.0 CBC With Differential 10/08/[address] [facility] [place] [address] [phone] White Blood Count 12.8 10 High 4.0-10.0 [...] 36.0-66.0 Lymph % 8.2 % Low 24.0-44.0 [place] % 5.1 % High 0.0-5.0 Eos % 0.0 % Normal 0.0-3.0 Baso % 0.7 % Normal 0.0-1.0 Immature Granulocyte % 0.7 % Normal 0-3.0 Nucleated Red Blood Cell % 0.0 % Normal 0-0 Neutrophils # 11.0 10 High 1.5-8.5 Lymph # 1.1 10 Low 1.5-5.0 [place] # 0.7 10 Normal 0.0-0.8 Eos # 0.0 10 Normal 0.0-0.5 Baso # 0.1 10 Normal 0.0-0.2 Laboratory test finding 10/08/2020 [place] [address] [phone] Bedside Glucose 388 mg/dL High 70-105 Ua W/ Reflex To Culture 10/08/2020 [place] [address] [phone] Appearance, Urine RFX CLEAR Normal Clear Color, Urine RFX STRAW Normal Yellow PH,Urine RFX 6.0 units Normal 5.0-9.0 Specific [place] Ur Auto RFX 1.023 Normal 1.002-1.035 Protein, [...] Laboratory test finding 10/08/2020 [place] [address] [phone] Bedside Glucose 254 mg/dL High 70-105 Laboratory test finding 10/08/2020 [place] [address] [phone] Bedside Glucose 275 mg/dL High 70-105 Laboratory test finding 10/08/2020 [place] [address] [phone] Coronavirus 2019 Nasopharygeal <pending> Sars Covid-19 Amplification NEGATIVE Normal Negative 4 Laboratory test finding 10/06/2020 [place] [address] [phone] Erythrocyte Sedimentation Rate 70 mm/hr High 0 -20 CBC With Differential 10/06/2020 [place] [address] [phone] White Blood Count 8.7 10 Normal 4.0-10.0 [...] 36.0-66.0 Lymph % 20.1 % Low 24.0-44.0 [place] % 5.7 % High 0.0-5.0 Eos % 2.6 % Normal 0.0-3.0 Baso % 1.7 % High 0.0-1.0 Immature Granulocyte % 0.3 % Normal 0-3.0 Nucleated Red Blood Cell % 0.0 % Normal 0-0 Neutrophils # 6.1 10 Normal 1.5-8.5 Lymph # 1.8 10 Normal 1.5-5.0 [place] # 0.5 10 Normal 0.0-0.8 Eos # 0.2 10 Normal 0.0-0.5 Baso # 0.2 10 Normal 0.0-0.2 Laboratory test finding 10/06/2020 [place] [address] [phone] C Reactive Protein Quantitativ 0.85 mg/dL High 0 .00-0.30 Basic Metabolic Profile 10/06/2020 [place] [address] [phone] Glucose, Fasting 223 mg/dL High 70-100 Blood [...] mg/dL Normal 8.5-10.1 Urinalysis, Complete 09/02/[address] [facility] [id number] [place] [address], [address] [place] [address] [phone] Specific [place] 1.021 1.005-1.030 6, 7 pH 6.0 5.0-7.5 [...] TNP Comment TNP Culture Urine 09/02/[address] [facility] [id number] [place] [address], [address] [place] [address] [phone] Urine Culture, Routine Final report Abnormal 21 Result 1 See Comment: Abnormal 22 BMP W/Egfr 09/02/2020 [facility] [id number] [facility], [address] [place] [address] [phone] Glucose 147 mg/dL High 65-99 23 BUN [...] 33 CBC With Auto Diff 09/02/2020 [facility] [id number], [address] [place], [place] [id number] [phone] WBC 9.4 x10E3/uL 3.4-10.8 34 RBC 3.95 [...] TNP 57 Hemoglobin A1c Panel 09/02/2020 [facility] [id number], [address] [place] [address] [phone] Hemoglobin A1c 8.1 % High 4.8-5.6 58 Laboratory test finding 04/29/2020 [place] [address] [phone] Bedside Glucose 172 mg/dL High 70-105 Laboratory test finding 04/29/2020 [place] [address] [phone] Bedside Glucose 114 mg/dL High 70-105 Laboratory test finding 04/29/2020 [place] [address] [phone] Bedside Glucose 91 mg/dL Normal 70-105 Laboratory test finding 04/29/2020 [place] [address] [phone] Bedside Glucose 31 mg/dL Critical low 70-105 59 Laboratory test finding 04/29/2020 [facility] [place] [id number] [phone] Bedside Glucose 26 mg/dL Critical low 70-105 60 CBC With Differential 04/29/2020 [place] [address] [phone] White Blood Count 6.9 10 Normal 4.0-10.0 [...] 36.0-66.0 Lymph % 21.7 % Low 24.0-44.0 [place] % 6.9 % High 0.0-5.0 Eos % 2.0 % Normal 0.0-3.0 Baso % 1.9 % High 0.0-1.0 Immature Granulocyte % 0.1 % Normal 0-3.0 Nucleated Red Blood Cell % 0.0 % Normal 0-0 Neutrophils # 4.6 10 Normal 1.5-8.5 Lymph # 1.5 10 Normal 1.5-5.0 [place] # 0.5 10 Normal 0.0-0.8 Eos # 0.1 10 Normal 0.0-0.5 Baso # 0.1 10 Normal 0.0-0.2 Liver Profile 04/29/2020 [place] [address] [phone] Ast/Sgot 20 U/L Normal 7-37 Alt/SGPT 31 U/L Normal 12-78 Alkaline Phosphatase 90 U/L Normal 45-117 Bilirubin,Total 0.1 mg/dL Low 0.2-1.0 Bilirubin,Direct < 0.1 mg/dL Normal 0.0-0.2 Total Protein 7.9 GM/DL Normal 6.4-8.2 Albumin 3.2 GM/DL Normal 3.2-5.2 Albumin/Globulin Ratio 0.7 Low 1.2-2.2 Basic Metabolic Profile 04/29/2020 [place] [address] [phone] Glucose, Fasting 62 mg/dL Low 70-100 Blood [...] 8.5-10.1 Laboratory test finding 04/29/2020 [place] [address] [phone] Thyroid Stimulating Hormone 10.700 uIU/ML High 0 .358-3.740 Free T4 0.75 ng/dL Low 0.76-1.46 Laboratory test finding 04/28/2020 [place] [address] [phone] Bedside Glucose 169 mg/dL High 70-105 1 [...] monitoring the treatment of cancer patients. Siemens CircuLite methodology. 3 Units are mL/min/1.73 m2 Chronic Kidney Disease Staging per NKF: Stage I & II GFR >=60 Normal to Mildly Decreased Stage III GFR 30-59 Moderately Decreased Stage IV GFR 15-29 Severely Decreased Stage V GFR <15 Very Little GFR Left ESRD GFR <15 on CHAIN MENDER 4 A false negative result may occur [...] pathogens. DISCLAIMER: Testing was performed using the [employer] SARS-CoV-2 test. This test was developed and its performance characteristics determined by [employer]. This test has not been FDA cleared [...] Little GFR Left ESRD GFR <15 on CHAIN MENDER 6 SRC: A courtesy copy of th [...] Little GFR Left ESRD GFR <15 on CHAIN MENDER Procedures Date Code Description Status 09/02/2020 28770 EKG Interpretation & Report Comp leted 06/29/2020 [id number] Diabetic Foot Exam Completed 09/05/2019 [id number] Diabetic Foot Exam Completed 11/20/2014 [id number] Mammogram Completed Medical Devices Description No Information [...]
--- OUTSIDE RECORDS SUMMARY | 2020-12-04 17:57 | CCD | Continuity of Care Document ---
Author Author Eli GEIGER PA Organization Unknown Address [address] [place] [address] Phone [phone] Care Team Providers Care Storage Battery Charger Name Role Phone Mary García MD [facility] [phone] Problems Description No Information Available Social History [...] HCL 4mg Capsules 1 by mouth at [facility] Unknown Immunizations CPT Code Status Date Vaccine Lot # [id number] Given 09/02/2020 Influenza Virus Vaccine, Quadrivalent,age 3 and up,multidose vial [id number] Given 09/05/2019 Influenza Virus Vaccine, Quadrivalent,age 3 and up,multidose vial [id number] Given 08/30/2018 Influenza Virus Vaccine, Quadrivalent,age 3 and up,multidose vial [id number] Vital Signs Date Vital Result Comment 09/02/2020 2:45pm BP Systolic 143 mmHg BP Diastolic 75 mmHg BP Systolic Recheck 128 mmHg BP Diastolic Recheck 63 mmHg Heart Rate 85 /min Body Temperature 96.9 F Respiratory Rate 17 /min Height 64.0 inches 5'4" Weight 151.38 lb O2 % BldC Oximetry 98 % Peak Expiratory Flow Rate 361 Estimated Peak Flow Rate [place] Body Weight 120 lb BMI (Body Mass Index) 26.0 kg/m2 10/22/2019 8:53am BP Systolic 133 mmHg BP Diastolic 76 mmHg Heart Rate 87 /min Body Temperature 97.8 F Respiratory Rate 16 /min Height 64.0 inches 5'4" Weight 139.50 lb O2 % BldC Oximetry 98 % Peak Expiratory Flow Rate 362 Estimated Peak Flow Rate [place] Body Weight 120 lb BMI (Body Mass Index) 23.9 kg/m2 Results Test Acquired Date Facility Test Result H/L Range Note Urinalysis, Complete 09/02/2020 [facility] [id number], [address] [place] [address] [phone] Specific [place] 1.021 1.005-1.030 1, 2 pH 6.0 5.0-7.5 [...] TNP Comment TNP Culture Urine 09/02/2020 [facility] [id number] [facility], [address] [place], [place] [address] [phone] Urine Culture, Routine Final report Abnormal 16 Result 1 See Comment: Abnormal 17 BMP W/Egfr 09/02/2020 [facility] [id number] [facility], [address] [place], [place] [id number] [phone] Glucose 147 mg/dL High 65-99 18 BUN [...] 28 CBC With Auto Diff 09/02/2020 [facility] [id number] [facility], [address] [place], [place] [address] [phone] WBC 9.4 x10E3/uL 3.4-10.8 29 RBC 3.95 [...] TNP 52 Hemoglobin A1c Panel 09/02/2020 [facility] [id number] [facility], [address] [place] [address] [phone] Hemoglobin A1c 8.1 % High 4.8-5.6 53 Laboratory test finding 04/29/2020 [place] [address] [phone] Bedside Glucose 172 mg/dL High 70-105 Laboratory test finding 04/29/2020 [place] [address] [phone] Bedside Glucose 114 mg/dL High 70-105 Laboratory test finding 04/29/2020 Patient Service [place] [address]4715 [phone] Bedside Glucose 91 mg/dL Normal 70-105 Laboratory test finding 04/29/2020 [place] [address] [phone] Bedside Glucose 31 mg/dL Critical low 70-105 54 Laboratory test finding 04/29/2020 Patient Service [place] [address]4741 [phone] Bedside Glucose 26 mg/dL Critical low 70-105 55 CBC With Differential 04/29/2020 Patient Service Ce [facility]ter [place], [place] [address] [phone] White Blood Count 6.9 10 Normal 4.0-10.0 [...] 36.0-66.0 Lymph % 21.7 % Low 24.0-44.0 [place] % 6.9 % High 0.0-5.0 Eos % 2.0 % Normal 0.0-3.0 Baso % 1.9 % High 0.0-1.0 Immature Granulocyte % 0.1 % Normal 0-3.0 Nucleated Red Blood Cell % 0.0 % Normal 0-0 Neutrophils # 4.6 10 Normal 1.5-8.5 Lymph # 1.5 10 Normal 1.5-5.0 [place] # 0.5 10 Normal 0.0-0.8 Eos # 0.1 10 Normal 0.0-0.5 Baso # 0.1 10 Normal 0.0-0.2 Liver Profile 04/29/2020 [place] [address] [phone] Ast/Sgot 20 U/L Normal 7-37 Alt/SGPT 31 U/L Normal 12-78 Alkaline Phosphatase 90 U/L Normal 45-117 Bilirubin,Total 0.1 mg/dL Low 0.2-1.0 Bilirubin,Direct < 0.1 mg/dL Normal 0.0-0.2 Total Protein 7.9 GM/DL Normal 6.4-8.2 Albumin 3.2 GM/DL Normal 3.2-5.2 Albumin/Globulin Ratio 0.7 Low 1.2-2.2 Basic Metabolic Profile 04/29/2020 [place] [address] [phone] Glucose, Fasting 62 mg/dL Low 70-100 Blood [...] Laboratory test finding 04/29/2020 [place] [address] [phone] Thyroid Stimulating Hormone 10.700 uIU/ML High 0 .358-3.740 Free T4 0.75 ng/dL Low 0.76-1.46 Laboratory test finding 04/28/2020 [facility] [place], [place] [address] [phone] Bedside Glucose 169 mg/dL High 70-105 1 [...] Little GFR Left ESRD GFR <15 on PNEUMATIC TUBE FITTER Procedures Date Code Description Status 09/02/2020 [id number] EKG Interpretation & Report Comp leted 06/29/2020 [id number] Diabetic Foot Exam Completed 09/05/2019 [id number] Diabetic Foot Exam Completed 11/20/2014 [id number] Mammogram Completed Medical Devices Description No Information [...]
--- OUTSIDE RECORDS SUMMARY | 2020-12-04 17:59 | CCD ---
Author Author [facility] Organization [facility] Address Unknown Phone Unavailable Care Team Providers Care Service Person Name Role Phone NoyoYudelkaby PA Unavailable Unavailable Scordo, M Sandrine PA Unavailable Unavailable Scordo, M Sandrine PA Unavailable Unavailable Scordo, M Sandrine PA Unavailable Unavailable Scordo, M Sandrine PA Unavailable Unavailable Scordo, M Sandrine PA Unavailable Unavailable Scordo, M Sandrine PA Unavailable Unavailable Scordo, M Sandrine PA Unavailable Unavailable Scordo, M Sandrine PA Unavailable Unavailable Scordo, M Sandrine PA Unavailable Unavailable Scordo, M Sandrine PA Unavailable Unavailable Scordo, M Sandrine PA Unavailable Unavailable Scordo, M Sandrine PA Unavailable Unavailable Scordo, M Sandrine PA Unavailable Unavailable Scordo, M Sandrine PA Unavailable Unavailable Scordo, M Sandrine PA Unavailable Unavailable Scordo, M Sandrine PA Unavailable Unavailable Scordo, M Sandrine PA Unavailable Unavailable Scordo, M Sandrine PA Unavailable Unavailable Scordo, M Sandrine PA Unavailable Unavailable Scordo, M Sandirne PA Unavailable Unavailable Scordo, M Sandrine PA Unavailable Unavailable Scordo, M Sandrine PA Unavailable Unavailable Scordo, M Sandrine PA Unavailable Unavailable Scordo, M Sandrine PA Unavailable Unavailable Scordo, M Sandrine PA Unavailable Unavailable Scordo, M Sandrine PA Unavailable Unavailable Scordo, M Sandrine PA Unavailable Unavailable Scordo, M Sandrine PA Unavailable Unavailable Scordo, M Sandrine PA Unavailable Unavailable Scordo, M Sandrine PA Unavailable Unavailable Scordo, M Sandrine PA Unavailable Unavailable Scordo, M Sandrine PA Unavailable Unavailable Scordo, M Sandrine PA Unavailable Unavailable Scordo, M Sandrine PA Unavailable Unavailable Scordo, M Sandrine PA Unavailable Unavailable Scordo, M Sandrine PA Unavailable Unavailable Scordo, M Sandrine PA Unavailable Unavailable Scordo, M Sandrine PA Unavailable Unavailable Scordo, M Sandrine PA Unavailable Unavailable Alysia HARKINS DO Unavailable Unavailable AMROMIN, JANNETH MD Unavailable Unavailable AMROMIN, JANNETH MD Unavailable Unavailable AMROMIN, JANNETH MD Unavailable Unavailable AMROMIN, JANNETH MD Unavailable Unavailable AMROMIN, JANNETH MD Unavailable Unavailable AMROMIN, JANNETH MD Unavailable Unavailable AMROMIN, JANNETH MD Unavailable Unavailable AMROMIN, JANNETH MD Unavailable Unavailable AMROMIN, JANNETH MD Unavailable Unavailable AMROMIN, JANNETH MD Unavailable Unavailable AMROMIN, JANNETH MD Unavailable Unavailable AMROMIN, JANNETH MD Unavailable Unavailable AMROMIN, JANNETH MD Unavailable Unavailable AMROMIN, JANNETH MD Unavailable Unavailable AMROMIN, JANNETH MD Unavailable Unavailable AMROMIN, JANNETH MD Unavailable Unavailable AMROMIN, JANNETH MD Unavailable Unavailable AMROMIN, JANNETH MD Unavailable Unavailable AMROMIN, JANNETH MD Unavailable Unavailable AMROMIN, JANNETH MD Unavailable Unavailable AMROMIN, JANNETH MD Unavailable Unavailable AMROMIN, JANNETH MD Unavailable Unavailable AMROMIN, JANNETH MD Unavailable Unavailable AMROMIN, JANNETH MD Unavailable Unavailable AMROMIN, JANNETH MD Unavailable Unavailable AMROMIN, JANNETH MD Unavailable Unavailable AMROMIN, JANNETH MD Unavailable Unavailable Marylu ALONZO ZEINA LOOM STARTER Unavailable Unavailable Marylu ALONZO ZEINA LOOM STARTER Unavailable Unavailable CLINTON B ZEINA LOOM STARTER Unavailable Unavailable COOK, B ZEINA LOOM STARTER Unavailable Unavailable COOK, B ZEINA LOOM STARTER Unavailable Unavailable COOK, B ZEINA LOOM STARTER Unavailable Unavailable COOK, B ZEINA LOOM STARTER Unavailable Unavailable COOK, B ZEINA LOOM STARTER Unavailable Unavailable COOK, B ZEINA LOOM STARTER Unavailable Unavailable COOK, B ZEINA LOOM STARTER Unavailable Unavailable COOK, B ZEINA LOOM STARTER Unavailable Unavailable COOK, B ZEINA LOOM STARTER Unavailable Unavailable COOK, B ZEINA LOOM STARTER Unavailable Unavailable COOK, B ZEINA LOOM STARTER Unavailable Unavailable COOK, B ZEINA LOOM STARTER Unavailable Unavailable COOK, B ZEINA LOOM STARTER Unavailable Unavailable COOK, B ZEINA LOOM STARTER Unavailable Unavailable COOK, B ZEINA LOOM STARTER Unavailable Unavailable COOK, B ZEINA LOOM STARTER Unavailable Unavailable COOK, B ZEINA LOOM STARTER Unavailable Unavailable COOK, B ZEINA LOOM STARTER Unavailable Unavailable COOK, B ZEINA LOOM STARTER Unavailable Unavailable COOK, B ZEINA LOOM STARTER Unavailable Unavailable COOK, B ZEINA LOOM STARTER Unavailable Unavailable COOK, B ZEINA LOOM STARTER Unavailable Unavailable COOK, B ZEINA LOOM STARTER Unavailable Unavailable COOK, B ZEINA LOOM STARTER Unavailable Unavailable COOK, B ZEINA LOOM STARTER Unavailable Unavailable COOK, B ZEINA LOOM STARTER Unavailable Unavailable COOK, B ZEINA LOOM STARTER Unavailable Unavailable COOK, B ZEINA LOOM STARTER Unavailable Unavailable COOK, B ZEINA LOOM STARTER Unavailable Unavailable COOK, B ZEINA LOOM STARTER Unavailable Unavailable COOK, B ZEINA LOOM STARTER Unavailable Unavailable COOK, B ZEINA LOOM STARTER Unavailable Unavailable COOK, B ZEINA LOOM STARTER Unavailable Unavailable COOK, B ZEINA LOOM STARTER Unavailable Unavailable COOK, B ZEINA LOOM STARTER Unavailable Unavailable COOK, B ZEINA LOOM STARTER Unavailable Unavailable COOK, B ZEINA LOOM STARTER Unavailable Unavailable COOK, B ZEINA LOOM STARTER Unavailable Unavailable COOK, B ZEINA LOOM STARTER Unavailable Unavailable COOK, B ZEINA LOOM STARTER Unavailable Unavailable COOK, B ZEINA LOOM STARTER Unavailable Unavailable COOK, B ZEINA LOOM STARTER Unavailable Unavailable COOK, B ZEINA LOOM STARTER Unavailable Unavailable COOK, B ZEINA LOOM STARTER Unavailable Unavailable COOK, B ZEINA LOOM STARTER Unavailable Unavailable COOK, B ZEINA LOOM STARTER Unavailable Unavailable COOK, B ZEINA LOOM STARTER Unavailable Unavailable COOK, B ZEINA LOOM STARTER Unavailable Unavailable COOK, B ZEINA LOOM STARTER Unavailable Unavailable COOK, B ZEINA LOOM STARTER Unavailable Unavailable COOK, B ZEINA LOOM STARTER Unavailable Unavailable COOK, B ZEINA LOOM STARTER Unavailable Unavailable COOK, B ZEINA LOOM STARTER Unavailable Unavailable COOK, B ZEINA LOOM STARTER Unavailable Unavailable COOK, B ZEINA LOOM STARTER Unavailable Unavailable COOK, B ZEINA LOOM STARTER Unavailable Unavailable COOK, B ZEINA LOOM STARTER Unavailable Unavailable Marylu ALONZO ZEINA LOOM STARTER Unavailable Unavailable Marylu ALONZO ZEINA LOOM STARTER Unavailable Unavailable CLINTON, Marylu ZEINA LOOM STARTER Unavailable Unavailable Marylu ALONZO ZEINA LOOM STARTER Unavailable Unavailable MD ZAHRAA Unavailable Unavailable RING, GIA POTTER MD Unavailable Unavailable RING, GIA POTTER MD Unavailable Unavailable RING, GIA POTTER MD Unavailable Unavailable RING, GIA POTTER MD Unavailable Unavailable RING, GIA POTTER MD Unavailable Unavailable RING, GIA POTTER MD Unavailable Unavailable RING, GIA POTTER MD Unavailable Unavailable RING, GIA POTTER MD Unavailable Unavailable RING, GIA POTTER MD Unavailable Unavailable RING, GIA POTTER MD Unavailable Unavailable RING, GIA POTTER MD Unavailable Unavailable RING, GIA POTTER MD Unavailable Unavailable RING, GIA POTTER MD Unavailable Unavailable RING, GIA POTTER MD Unavailable Unavailable RING, GIA POTTER MD Unavailable Unavailable RING, GIA POTTER MD Unavailable Unavailable RING, GIA POTTER MD Unavailable Unavailable RING, GIA POTTER MD Unavailable Unavailable RING, GIA POTTER MD Unavailable Unavailable RING, GIA POTTER MD Unavailable Unavailable RING, GIA POTTER MD Unavailable Unavailable RING, GIA POTTER MD Unavailable Unavailable RING, GIA POTTER MD Unavailable Unavailable RING, GIA POTTER MD Unavailable Unavailable RING, GIA POTTER MD Unavailable Unavailable RING, GIA POTTER MD Unavailable Unavailable RING, GIA POTTER MD Unavailable Unavailable RING, GIA POTTER MD Unavailable Unavailable RING, GIA POTTER MD Unavailable Unavailable RING, GIA POTTER MD Unavailable Unavailable RING, GIA POTTER MD Unavailable Unavailable RING, GIA POTTER MD Unavailable Unavailable RING, GIA POTTER MD Unavailable Unavailable RING, GIA POTTER MD Unavailable Unavailable RING, GIA POTTER MD Unavailable Unavailable RING, GIA POTTER MD Unavailable Unavailable RING, GIA POTTER MD Unavailable Unavailable RING, GIA POTTER MD Unavailable Unavailable RING, GIA POTTER MD Unavailable Unavailable RING, GIA POTTER MD Unavailable Unavailable RING, GIA POTTER MD Unavailable Unavailable RING, GIA POTTER MD Unavailable Unavailable RING, GIA POTTER MD Unavailable Unavailable RING, GIA POTTER MD Unavailable Unavailable RING, GIA POTTER MD Unavailable Unavailable RING, GIA POTTER MD Unavailable Unavailable RING, GIA POTTER MD Unavailable Unavailable RING, GIA POTTER MD Unavailable Unavailable RING, GIA POTTER MD Unavailable Unavailable RING, GIA POTTER MD Unavailable Unavailable RING, GIA POTTER MD Unavailable Unavailable RING, GIA POTTER MD Unavailable Unavailable RING, GIA POTTER MD Unavailable Unavailable RING, GIA POTTER MD Unavailable Unavailable RING, GIA POTTER MD Unavailable Unavailable RING, GIA POTTER MD Unavailable Unavailable RING, GIA POTTER MD Unavailable Unavailable RING, GIA POTTER MD Unavailable Unavailable RING, GIA POTTER MD Unavailable Unavailable RING, GIA ELALEXYS MD Unavailable Unavailable RING, GIA ELALEXYS PIZANO Unavailable Unavailable RING, GIA POTTER MD Unavailable Unavailable RING, GIA POTTER MD Unavailable Unavailable RING, GIA POTTER MD Unavailable Unavailable RING, GIA POTTER MD Unavailable Unavailable RING, GIA POTTER MD Unavailable Unavailable Evan, A Elías PIZANO Unavailable Unavailable Evan, Kelly Mckinley MD Unavailable Unavailable Evan, Kelly Mckinley MD Unavailable Unavailable Evan, Kelly Mckinley MD Unavailable Unavailable Evan, Kelly Mckinley MD Unavailable Unavailable Evan, Kelly Mckinley MD Unavailable Unavailable Evan, Kelly Mckinley MD Unavailable Unavailable Evan, Kelly Mckinley MD Unavailable Unavailable Evan, Kelly Mckinley MD Unavailable Unavailable Evan, Kelly Mckinley MD Unavailable Unavailable Evan, Kelly Mckinley MD Unavailable Unavailable Evan, Kelly Mckinley MD Unavailable Unavailable Evan, Kelly Mckinley MD Unavailable Unavailable Evan, Kelly Mckinley MD Unavailable Unavailable Evan, Kelly Mckinley MD Unavailable Unavailable Evan, Kelly Mckinley MD Unavailable Unavailable Evan, Kelly Mckinley MD Unavailable Unavailable Evan, Kelly Mckinley MD Unavailable Unavailable Evan, Kelly Mckinley MD Unavailable Unavailable Evan, Kelly Mckinley MD Unavailable Unavailable Evan, Kelly Mckinley MD Unavailable Unavailable Evan, Kelly Mckinley MD Unavailable Unavailable Evan, Kelly Mckinley MD Unavailable Unavailable Evan, Kelly Mckinley MD Unavailable Unavailable Evan, Kelly Mckinley MD Unavailable Unavailable Evan, Kelly Mckinley MD Unavailable Unavailable Evan, Kelly Mckinley MD Unavailable Unavailable Evan, Kelly Mckinley MD Unavailable Unavailable Evan, Kelly Mckinley MD Unavailable Unavailable Evan, Kelly Mckinley MD Unavailable Unavailable Evan, Kelly Mckinley MD Unavailable Unavailable Evan, Kelly Mckinley MD Unavailable Unavailable Evan, A Elías MD Unavailable Unavailable Evan, A Elías MD Unavailable Unavailable Evan, A Elías MD Unavailable Unavailable Evan, A Elías MD Unavailable Unavailable Evan, A Elías MD Unavailable Unavailable Evan, A Elías MD Unavailable Unavailable Evan, A Elías MD Unavailable Unavailable Evan, A Elías MD Unavailable Unavailable Evan, A Elías MD Unavailable Unavailable Evan, A Elías MD Unavailable Unavailable Evan, A Elías MD Unavailable Unavailable Evan, A Elías MD Unavailable Unavailable Evan, A Elías MD Unavailable Unavailable Evan, A Elías MD Unavailable Unavailable Evan, A Elías MD Unavailable Unavailable Evan, A Elías MD Unavailable Unavailable Evan, A Elías MD Unavailable Unavailable Evan, A Elías MD Unavailable Unavailable Evan, A Elías MD Unavailable Unavailable Evan, A Elías MD Unavailable Unavailable Evan, A Elías MD Unavailable Unavailable Evan, A Elías MD Unavailable Unavailable Evan, A Elías MD Unavailable Unavailable Evan, A Elías MD Unavailable Unavailable Evan, A Elías MD Unavailable Unavailable Evan, A Elías MD Unavailable Unavailable Evan, A Elías MD Unavailable Unavailable Evan, A Elías Unavailable Unavailable Evan, A Elías Unavailable Unavailable Evan, A Elías Unavailable Unavailable Evan, A Elías Unavailable Unavailable Evan, A Elías Unavailable Unavailable Evan, A Elías Unavailable Unavailable Evan, A Elías PIZANO Unavailable Unavailable Evan, A Elías PIZANO Unavailable Unavailable Evan, A Elías PIZANO Unavailable Unavailable Evan, A Elías PIZANO Unavailable Unavailable Evan, A Elías PIZANO Unavailable Unavailable Evan, A Elías PIZANO Unavailable Unavailable NCFH, [id number] Unavailable Unavailable RING, GIA POTTER MD Unavailable Unavailable RING, GIA POTTER MD Unavailable Unavailable RING, GIA POTTER MD Unavailable Unavailable RING, GIA POTTER MD Unavailable Unavailable RING, GIA POTTER MD Unavailable Unavailable RING, GIA POTTER MD Unavailable Unavailable RING, GIA POTTER MD Unavailable Unavailable RING, GIA POTTER MD Unavailable Unavailable RING, GIA POTTER MD Unavailable Unavailable RING, GIA POTTER MD Unavailable Unavailable RING, GIA POTTER MD Unavailable Unavailable RING, GIA POTTER MD Unavailable Unavailable RING, GIA POTTER MD Unavailable Unavailable RING, GIA POTTER MD Unavailable Unavailable RING, GIA POTTER MD Unavailable Unavailable RING, GAI POTTER MD Unavailable Unavailable RING, GIA POTTER MD Unavailable Unavailable RING, GIA POTTER MD Unavailable Unavailable RING, GIA POTTER MD Unavailable Unavailable RING, GIA POTTER MD Unavailable Unavailable RING, GIA POTTER MD Unavailable Unavailable RING, GIA POTTER MD Unavailable Unavailable RING, GIA POTTER MD Unavailable Unavailable RING, GIA POTTER MD Unavailable Unavailable RING, GIA POTTER MD Unavailable Unavailable RING, GIA POTTER MD Unavailable Unavailable RING, GIA POTTER MD Unavailable Unavailable RING, GIA POTTER MD Unavailable Unavailable RING, GIA POTTER MD Unavailable Unavailable RING, GIA POTTER MD Unavailable Unavailable RING, GIA POTTER MD Unavailable Unavailable RING, GIA POTTER MD Unavailable Unavailable RING, GIA POTTER MD Unavailable Unavailable RING, GIA POTTER MD Unavailable Unavailable RING, GIA POTTER MD Unavailable Unavailable RING, GIA POTTER MD Unavailable Unavailable RING, GIA POTTER MD Unavailable Unavailable RING, GIA POTTER MD Unavailable Unavailable RING, GIA POTTER MD Unavailable Unavailable RING, GIA POTTER MD Unavailable Unavailable RING, GIA POTTER MD Unavailable Unavailable RING, GIA POTTER MD Unavailable Unavailable RING, GIA POTTER MD Unavailable Unavailable RING, GIA POTTER MD Unavailable Unavailable RING, GIA POTTER MD Unavailable Unavailable RING, GIA POTTER MD Unavailable Unavailable RING, GIA POTTER MD Unavailable Unavailable RING, GIA POTTER MD Unavailable Unavailable RING, GIA POTTER MD Unavailable Unavailable RING, GIA POTTER MD Unavailable Unavailable RING, GIA POTTER MD Unavailable Unavailable RING, GIA POTTER MD Unavailable Unavailable RING, GIA POTTER MD Unavailable Unavailable RING, GIA POTTER MD Unavailable Unavailable RING, GIA POTTER MD Unavailable Unavailable RING, GIA POTTER MD Unavailable Unavailable RING, GIA POTTER MD Unavailable Unavailable RING, GIA POTTER MD Unavailable Unavailable RING, GIA POTTER MD Unavailable Unavailable RING, GIA POTTER MD Unavailable Unavailable RING, GIA POTTER MD Unavailable Unavailable RING, GIA POTTER MD Unavailable Unavailable RING, GIA POTTER MD Unavailable Unavailable RING, GIA POTTER MD Unavailable Unavailable RING, GIA POTTER MD Unavailable Unavailable GIA MENDIOLA MD Unavailable Unavailable Lizeth POLO MD Unavailable Unavailable Lizeth POLO MD Unavailable Unavailable Lizeth POLO MD Unavailable Unavailable Lizeth POLO MD Unavailable Unavailable Lizeth POLO MD Unavailable Unavailable Lizeth POLO MD Unavailable Unavailable Lizeth POLO MD Unavailable Unavailable Lizeth POLO MD Unavailable Unavailable Lizeth POLO MD Unavailable Unavailable Lizeth POLO MD Unavailable Unavailable Lizeth POLO MD Unavailable Unavailable Lizeth POLO MD Unavailable Unavailable Lizeth POLO MD Unavailable Unavailable Lizeth POLO MD Unavailable Unavailable Lizeth POLO MD Unavailable Unavailable Lizeth POLO MD Unavailable Unavailable Lizeth POLO MD Unavailable Unavailable Lizeth POLO MD Unavailable Unavailable Lizeth POLO MD Unavailable Unavailable Lizeth POLO MD Unavailable Unavailable Lizeth POLO MD Unavailable Unavailable Lizeth POLO MD Unavailable Unavailable Lizeth POLO MD Unavailable Unavailable Lizeth POLO MD Unavailable Unavailable Lizeth POLO MD Unavailable Unavailable Lizeth POLO MD Unavailable Unavailable Lizeth POLO MD Unavailable Unavailable Lizeth POLO MD Unavailable Unavailable Lizeth POLO MD Unavailable Unavailable Lizeth POLO MD Unavailable Unavailable Lizeth OPLO MD Unavailable Unavailable Lizeth POLO MD Unavailable Unavailable Lizeth POLO MD Unavailable Unavailable Lizeth POLO MD Unavailable Unavailable Lizeth POLO MD Unavailable Unavailable Lizeth POLO MD Unavailable Unavailable Lizeth POLO MD Unavailable Unavailable Lizeth POLO MD Unavailable Unavailable Lizeth POLO MD Unavailable Unavailable Lizeth POLO MD Unavailable Unavailable Lizeth POLO MD Unavailable Unavailable Lizeth POLO MD Unavailable Unavailable Lizeth POLO MD Unavailable Unavailable Lizeth POLO MD Unavailable Unavailable Lizeth POLO MD Unavailable Unavailable Lizeth POLO MD Unavailable Unavailable Lizeth POLO MD Unavailable Unavailable Lizeth POLO MD Unavailable Unavailable Lizeth POLO MD Unavailable Unavailable Lizeth POLO MD Unavailable Unavailable Lizeth POLO MD Unavailable Unavailable Lizeth POLO MD Unavailable Unavailable Lizeth POLO MD Unavailable Unavailable Lizeth POLO MD Unavailable Unavailable Lizeth POLO MD Unavailable Unavailable Lizeth POLO MD Unavailable Unavailable Lizeth POLO MD Unavailable Unavailable Lizeth POLO MD Unavailable Unavailable Lizeth POLO MD Unavailable Unavailable Lizeth POLO MD Unavailable Unavailable Lizeth POLO MD Unavailable Unavailable Lizeth POLO MD Unavailable Unavailable Lizeth POLO MD Unavailable Unavailable Lizeth POLO MD Unavailable Unavailable Lizeth POLO MD Unavailable Unavailable Lizeth POLO MD Unavailable Unavailable Lizeth POLO MD Unavailable Unavailable Lizeth POLO MD Unavailable Unavailable Lizeth POLO MD Unavailable Unavailable Lizeth POLO MD Unavailable Unavailable Lizeth POLO MD Unavailable Unavailable Lizeth POLO MD Unavailable Unavailable Lizeth POLO MD Unavailable Unavailable Lizeth POLO MD Unavailable Unavailable Lizeth POLO MD Unavailable Unavailable Lizeth POLO MD Unavailable Unavailable Lizeth POLO MD Unavailable Unavailable Lizeth POLO MD Unavailable Unavailable Lizeth POLO MD Unavailable Unavailable Lizeth POLO MD Unavailable Unavailable Lizeth POLO MD Unavailable Unavailable Lizeth POLO MD Unavailable Unavailable Lizeth POLO MD Unavailable Unavailable Lizeth POLO MD Unavailable Unavailable Lizeth POLO MD Unavailable Unavailable Lizeth POLO MD Unavailable Unavailable Lizeth POLO MD Unavailable Unavailable Lizeth POLO MD Unavailable Unavailable Lizeth POLO MD Unavailable Unavailable Lizeth POLO MD Unavailable Unavailable Lizeth POLO MD Unavailable Unavailable Lizeth POLO MD Unavailable Unavailable Lizeth POLO MD Unavailable Unavailable Lizeth POLO MD Unavailable Unavailable Lizeth POLO MD Unavailable Unavailable Lizeth POLO MD Unavailable Unavailable Lizeth POLO MD Unavailable Unavailable Lizeth POLO MD Unavailable Unavailable Lizeth POLO MD Unavailable Unavailable Lizeth POLO MD Unavailable Unavailable Lizeth POLO MD Unavailable Unavailable Lizeth POLO MD Unavailable Unavailable Lizeth POLO MD Unavailable Unavailable Lizeth POLO MD Unavailable Unavailable Lizeth POLO MD Unavailable Unavailable Lizeth POLO MD Unavailable Unavailable Lizeth POLO MD Unavailable Unavailable Lizeth POLO MD Unavailable Unavailable Lizeth POLO MD Unavailable Unavailable Lizeth POLO MD Unavailable Unavailable Lizeth POLO MD Unavailable Unavailable Lizeth POLO MD Unavailable Unavailable Lizeth POLO MD Unavailable Unavailable Lizeth POLO MD Unavailable Unavailable Lizeth POLO MD Unavailable Unavailable Lizeth POLO MD Unavailable Unavailable Lizeth POLO MD Unavailable Unavailable Lizeth POLO MD Unavailable Unavailable Lizeth POLO MD Unavailable Unavailable Lizeth POLO MD Unavailable Unavailable Lizeth POLO MD Unavailable Unavailable Lizeth POLO MD Unavailable Unavailable Lizeth POLO MD Unavailable Unavailable Lizeth POLO MD Unavailable Unavailable Lizeth POLO MD Unavailable Unavailable Lizeth POLO MD Unavailable Unavailable Lizeth POLO MD Unavailable Unavailable Lizeth POLO MD Unavailable Unavailable Lizeth POLO MD Unavailable Unavailable Lizeth POLO MD Unavailable Unavailable Lizeth POLO MD Unavailable Unavailable Lizeth POLO MD Unavailable Unavailable Lizeth POLO MD Unavailable Unavailable Lizeth POLO MD Unavailable Unavailable Lizeth POLO MD Unavailable Unavailable Lizeth POLO MD Unavailable Unavailable Lizeth POLO MD Unavailable Unavailable Lizeth POLO MD Unavailable Unavailable Lizeth POLO MD Unavailable Unavailable Lizeth POLO MD Unavailable Unavailable Lizeth POLO MD Unavailable Unavailable Lizeth POLO MD Unavailable Unavailable Lizeth POLO MD Unavailable Unavailable Lizeth POLO MD Unavailable Unavailable Lizeth POLO MD Unavailable Unavailable Lizeth POLO MD Unavailable Unavailable Lizeth POLO MD Unavailable Unavailable Lizeth POLO MD Unavailable Unavailable Lizeth POLO MD Unavailable Unavailable Lizeth POLO MD Unavailable Unavailable Lizeth POLO MD Unavailable Unavailable Lizeth POLO MD Unavailable Unavailable Lizeth POLO MD Unavailable Unavailable Lizeth POLO MD Unavailable Unavailable Lizeth POLO MD Unavailable Unavailable Lizeth POLO MD Unavailable Unavailable Lizeth POLO MD Unavailable Unavailable Lizeth POLO MD Unavailable Unavailable Lizeth POLO MD Unavailable Unavailable Lizeth POLO MD Unavailable Unavailable Lizeth POLO MD Unavailable Unavailable Lizeth POLO MD Unavailable Unavailable Lizeth POLO MD Unavailable Unavailable Lizeth POLO MD Unavailable Unavailable Lizeth POLO MD Unavailable Unavailable Lizeth POLO MD Unavailable Unavailable Lizeth POLO MD Unavailable Unavailable Lizeth POLO MD Unavailable Unavailable Lizeth POLO MD Unavailable Unavailable Lizeth POLO MD Unavailable Unavailable Lizeth POLO MD Unavailable Unavailable Lizeth POLO MD Unavailable Unavailable Lizeth POLO MD Unavailable Unavailable Lizeth POLO MD Unavailable Unavailable Lizeth POLO MD Unavailable Unavailable Lizeth POLO MD Unavailable Unavailable Lizeth POLO MD Unavailable Unavailable Lizeth POLO MD Unavailable Unavailable Lizeth POLO MD Unavailable Unavailable Lizeth POLO MD Unavailable Unavailable Lizeth POLO MD Unavailable Unavailable Lizeth POLO MD Unavailable Unavailable Lizeth POLO MD Unavailable Unavailable Lizeth POLO MD Unavailable Unavailable Lizeth POLO MD Unavailable Unavailable Lizeth POLO MD Unavailable Unavailable Lizeth POLO MD Unavailable Unavailable Lizeth POLO MD Unavailable Unavailable Lizeth POLO MD Unavailable Unavailable Lizeth POLO MD Unavailable Unavailable Lizeth POLO MD Unavailable Unavailable Lizeth POLO MD Unavailable Unavailable Jumalon, M Sruthi DSP ENGINEER Unavailable Unavailable Jumalon, M Sruthi DSP ENGINEER Unavailable Unavailable Jumalon, M Sruthi DSP ENGINEER Unavailable Unavailable Jumalon, M Sruthi DSP ENGINEER Unavailable Unavailable Jumalon, M Sruthi DSP ENGINEER Unavailable Unavailable Jumalon, M Sruthi DSP ENGINEER Unavailable Unavailable Jumalon, M Sruthi DSP ENGINEER Unavailable Unavailable Jumalon, M Sruthi DSP ENGINEER Unavailable Unavailable Jumalon, M Sruthi DSP ENGINEER Unavailable Unavailable Jumalon, M Sruthi DSP ENGINEER Unavailable Unavailable Jumalon, M Sruthi DSP ENGINEER Unavailable Unavailable Jumalon, M Sruthi DSP ENGINEER Unavailable Unavailable Jumalon, M Sruthi DSP ENGINEER Unavailable Unavailable Jumalon, M Sruthi DSP ENGINEER Unavailable Unavailable Jumalon, M Sruthi DSP ENGINEER Unavailable Unavailable Jumalon, M Sruthi DSP ENGINEER Unavailable Unavailable Jumalon, M Sruthi DSP ENGINEER Unavailable Unavailable Jumalon, M Sruthi DSP ENGINEER Unavailable Unavailable Jumalon, M Sruthi DSP ENGINEER Unavailable Unavailable Jumalon, M Sruthi DSP ENGINEER Unavailable Unavailable Jumalon, M Sruthi DSP ENGINEER Unavailable Unavailable Jumalon, M Sruthi DSP ENGINEER Unavailable Unavailable Jumalon, M Sruthi DSP ENGINEER Unavailable Unavailable Jumalon, M Sruthi DSP ENGINEER Unavailable Unavailable Jumalon, M Sruthi DSP ENGINEER Unavailable Unavailable Jumalon, M Sruthi DSP ENGINEER Unavailable Unavailable Jumalon, M Sruthi DSP ENGINEER Unavailable Unavailable Jumalon, M Sruthi DSP ENGINEER Unavailable Unavailable Evan, A Elías PIZANO Unavailable Unavailable Evan, A Elías PIZANO Unavailable Unavailable Evan, A Elías PIZANO Unavailable Unavailable Evan, A Elías PIZANO Unavailable Unavailable Evan, A Elías PIZANO Unavailable Unavailable Evan, A Elías PIZANO Unavailable Unavailable Evan, A Elías PIZANO Unavailable Unavailable Evan, A Elías PIZANO Unavailable Unavailable Evan, A Elías PIZANO Unavailable Unavailable Evan, A Elías PIZANO Unavailable Unavailable Evan, A Elías PIZANO Unavailable Unavailable Evan, A Elías PIZANO Unavailable Unavailable Evan, A Elías PIZANO Unavailable Unavailable Evan, A Elías PIZANO Unavailable Unavailable Evan, A Elías PIZANO Unavailable Unavailable Evan, A Elías PIZANO Unavailable Unavailable Evan, A Elías PIZANO Unavailable Unavailable Evan, A Elías PIZANO Unavailable Unavailable Evan, A Elías PIZANO Unavailable Unavailable Evan, A Elías PIZANO Unavailable Unavailable Evan, A Elías PIZANO Unavailable Unavailable Evan, A Elías PIZANO Unavailable Unavailable Evan, A Elías PIZANO Unavailable Unavailable Evan, A Elías PIZANO Unavailable Unavailable Evan, A Elías PIZANO Unavailable Unavailable Evan, A Elías PIZANO Unavailable Unavailable Evan, A Elías PIZANO Unavailable Unavailable Evan, A Elías PIZANO Unavailable Unavailable Evan, A Elías PIZANO Unavailable Unavailable Evan, A Elías PIZANO Unavailable Unavailable Evan, A Elías PIZANO Unavailable Unavailable Evan, A Elías PIZANO Unavailable Unavailable Evan, A Elías PIZANO Unavailable Unavailable Evan, A Elías PIZANO Unavailable Unavailable Evan, A Elías PIZANO Unavailable Unavailable Evan, A Elías PIZANO Unavailable Unavailable Evan, A Elías PIZANO Unavailable Unavailable Evan, A Elías PIZANO Unavailable Unavailable Evan, A Elías PIZANO Unavailable Unavailable Evan, A Elías PIZANO Unavailable Unavailable Evan, A Elías PIZANO Unavailable Unavailable Evan, A Elías PIZANO Unavailable Unavailable Evan, A Elías PIZANO Unavailable Unavailable Evan, A Elías PIZANO Unavailable Unavailable Evan, A Elías PIZANO Unavailable Unavailable Evan, A Elías PIZANO Unavailable Unavailable Evan, A Elías PIZANO Unavailable Unavailable Evan, A Elías PIZANO Unavailable Unavailable Evan, A Elías PIZANO Unavailable Unavailable Evan, A Elías PIZANO Unavailable Unavailable Evan, A Elías PIZANO Unavailable Unavailable Evan, A Elías PIZANO Unavailable Unavailable Evan, A Elías PIZANO Unavailable Unavailable Evan, A Elías PIZANO Unavailable Unavailable Evan, A Elías PIZANO Unavailable Unavailable Evan, A Elías PIZANO Unavailable Unavailable Evan, A Elías PIZANO Unavailable Unavailable Evan, A Elías PIZANO Unavailable Unavailable Evan, A Elías MD Unavailable Unavailable Evan, A Elías MD Unavailable Unavailable Evan, A Elías PIZANO Unavailable Unavailable Evan, A Elías MD Unavailable Unavailable Evan, A Elías MD Unavailable Unavailable Evan, A Elías PIZANO Unavailable Unavailable Evan, A Elías PIZANO Unavailable Unavailable Evan, A Elías MD Unavailable Unavailable Evan, A Elías MD Unavailable Unavailable Evan, A Elías MD Unavailable Unavailable Evan, A Elías PIZANO Unavailable Unavailable Evan, A Elías PIZANO Unavailable Unavailable Evan, A Elías MD Unavailable Unavailable ALAM, ANTHONY-E MD Unavailable Unavailable ALAM, ANTHONY-E MD Unavailable Unavailable ALAM, ANTHONY-E MD Unavailable Unavailable ALAM, ANTHONY-E MD Unavailable Unavailable ALAM, ANTHONY-E MD Unavailable Unavailable ALAM, ANTHONY-E MD Unavailable Unavailable ALAM, ANTHONY-E MD Unavailable Unavailable ALAM, ANTHONY-E MD Unavailable Unavailable ALAM, ANTHONY-E MD Unavailable Unavailable ALAM, ANTHONY-E MD Unavailable Unavailable ALAM, ANTHONY-E MD Unavailable Unavailable ALAM, ANTHONY-E MD Unavailable Unavailable ALAM, ANTHONY-E MD Unavailable Unavailable ALAM, ANTHONY-E MD Unavailable Unavailable VanArnam, W Brenton PA Unavailable Unavailable VanArnam, W Brenton PA Unavailable Unavailable VanArnam, W Brenton PA Unavailable Unavailable VanArnam, W Brenton PA Unavailable Unavailable VanArnam, W Brenton PA Unavailable Unavailable VanArnam, W Brenton PA Unavailable Unavailable VanArnam, W Brenton PA Unavailable Unavailable VanArnam, W Brenton PA Unavailable Unavailable VanArnam, W Brenton PA Unavailable Unavailable VanArnam, W Brenton PA Unavailable Unavailable VanArnam, W Brenton PA Unavailable Unavailable VanArnam, W Brenton PA Unavailable Unavailable VanArnam, W Brenton PA Unavailable Unavailable VanArnam, W Brenton PA Unavailable Unavailable VanArnam, W Brenton PA Unavailable Unavailable VanArnam, W Brenton PA Unavailable Unavailable VanArnam, W Brenton PA Unavailable Unavailable VanArnam, W Brenton PA Unavailable Unavailable VanArnam, W Brenton PA Unavailable Unavailable VanArnam, W Brenton PA Unavailable Unavailable VanArnam, W Brenton PA Unavailable Unavailable VanArnam, W Brenton PA Unavailable Unavailable VanArnam, W Brenton PA Unavailable Unavailable VanArnam, W Brenton PA Unavailable Unavailable VanArnam, W Brenton PA Unavailable Unavailable VanArnam, W Brenton PA Unavailable Unavailable VanArnam, W Brenton PA Unavailable Unavailable VanArnam, W Brenton PA Unavailable Unavailable VanArnam, W Brenton PA Unavailable Unavailable VanArnam, W Brenton PA Unavailable Unavailable VanArnam, W Brenton PA Unavailable Unavailable VanArnam, W Brenton PA Unavailable Unavailable VanArnam, W Brenton PA Unavailable Unavailable VanArnam, W Brenton PA Unavailable Unavailable VanArnam, W Brenton PA Unavailable Unavailable VanArnam, W Brenton PA Unavailable Unavailable VanArnam, W Brenton PA Unavailable Unavailable VanArnam, W Brenton PA Unavailable Unavailable VanArnam, W Brenton PA Unavailable Unavailable VanArnam, W Brenton PA Unavailable Unavailable Marylu Boyle MD Unavailable Unavailable Marylu Boyle MD Unavailable Unavailable Marylu Boyle MD Unavailable Unavailable Marylu Boyle MD Unavailable Unavailable Marylu Boyle MD Unavailable Unavailable Marylu Boyle MD Unavailable Unavailable Marylu Boyle MD Unavailable Unavailable Marylu Boyle MD Unavailable Unavailable Marylu Boyle MD Unavailable Unavailable Marylu Boyle MD Unavailable Unavailable Marylu Boyle MD Unavailable Unavailable Marylu Boyle MD Unavailable Unavailable Marylu Boyle MD Unavailable Unavailable Marylu Boyle MD Unavailable Unavailable Marylu Boyle MD Unavailable Unavailable Marylu Boyle MD Unavailable Unavailable Marylu Boyle MD Unavailable Unavailable Marylu Boyle MD Unavailable Unavailable Marylu Boyle MD Unavailable Unavailable Marylu Boyle MD Unavailable Unavailable Marylu Boyle MD Unavailable Unavailable Marylu Boyle MD Unavailable Unavailable Marylu Boyle MD Unavailable Unavailable Marylu Boyle MD Unavailable Unavailable Marylu Boyle MD Unavailable Unavailable Marylu Boyle MD Unavailable Unavailable Marylu Boyle MD Unavailable Unavailable Marylu Boyle MD Unavailable Unavailable Marylu Boyle MD Unavailable Unavailable Marylu Boyle MD Unavailable Unavailable Marylu Boyle MD Unavailable Unavailable Marylu Boyle MD Unavailable Unavailable Marylu Boyle MD Unavailable Unavailable Marylu Boyle MD Unavailable Unavailable Marylu Boyle MD Unavailable Unavailable Marylu Boyle MD Unavailable Unavailable Marylu Boyle MD Unavailable Unavailable Fish, B Tracey PIZANO Unavailable Unavailable Fish, B Tracey PIZANO Unavailable Unavailable Fish, B Tracey PIZANO Unavailable Unavailable Fish, B Tracey PIZANO Unavailable Unavailable Fish, B Tracey PIZANO Unavailable Unavailable Fish, B Tracey PIZANO Unavailable Unavailable Fish, B Tracey PIZANO Unavailable Unavailable Fish, B Tracey PIZANO Unavailable Unavailable Fish, B Tracey PIZANO Unavailable Unavailable Fish, B Tracey PIZANO Unavailable Unavailable Fish, B Tracey PIZANO Unavailable Unavailable Fish, B Tracey PIZANO Unavailable Unavailable Fish, B Tracey PIZANO Unavailable Unavailable Fish, B Tracey PIZANO Unavailable Unavailable Fish, B Tracey PIZANO Unavailable Unavailable Fish, B Tracey PIZANO Unavailable Unavailable Fish, B Tracey PIZANO Unavailable Unavailable Fish, B Tracey PIZANO Unavailable Unavailable Fish, B Tracey PIZANO Unavailable Unavailable Fish, B Tracey PIZANO Unavailable Unavailable Fish, B Tracey PIZANO Unavailable Unavailable Fish, B Tracey PIZANO Unavailable Unavailable Fish, B Tracey PIZANO Unavailable Unavailable Fish, B Tracey PIZANO Unavailable Unavailable Fish, B Tracey PIZANO Unavailable Unavailable Fish, B Tracey PIZANO Unavailable Unavailable Fish, B Tracey PIZANO Unavailable Unavailable AMROMINJANNETH MD Unavailable Unavailable AMROMIN, JANNETH PIZANO Unavailable Unavailable AMROMIN, JANNETH PIZANO Unavailable Unavailable AMROMIN, JANNETH PIZANO Unavailable Unavailable AMROMIN, JANNETH PIZANO Unavailable Unavailable AMROMIN, JANNETH PIZANO Unavailable Unavailable AMROMIN, JANNETH PIZANO Unavailable Unavailable AMROMIN, JANNETH PIZANO Unavailable Unavailable AMROMIN, JANNETH PIZANO Unavailable Unavailable AMROMIN, JANNETH PIZANO Unavailable Unavailable AMROMIN, JANNETH PIZANO Unavailable Unavailable AMROMIN, JANNETH PIZANO Unavailable Unavailable AMROMIN, JANNETH PIZANO Unavailable Unavailable AMROMINJANNETH MD Unavailable Unavailable AMROMINJANNETH MD Unavailable Unavailable AMROMIN, JANNETH PIZANO Unavailable Unavailable AMROMINJANNETH MD Unavailable Unavailable AMROMIN, JANNETH PIZANO Unavailable Unavailable AMROMINJANNETH MD Unavailable Unavailable AMROMINJANNETH MD Unavailable Unavailable AMROMINJANNETH MD Unavailable Unavailable AMROMINJANNETH MD Unavailable Unavailable AMROMINJANNETH MD Unavailable Unavailable AMROMINJANNETH MD Unavailable Unavailable AMROMINJANNETH MD Unavailable Unavailable AMROMIN, JANNETH PIZANO Unavailable Unavailable AMROMIN, JANNETH PIZANO Unavailable Unavailable MEDENT_[id number], NA Unavailable [phone] Kelly Hernandes MD Unavailable Unavailable Kelly Hernandes MD Unavailable Unavailable Kelly Hernandes MD Unavailable Unavailable Ricky, Kelly Hernandez MD Unavailable Unavailable Ricky, Kelly Hernandez MD Unavailable Unavailable Ricky, Kelly Hernandez MD Unavailable Unavailable Ricky, Kelly Hernandez MD Unavailable Unavailable Ricky, Kelly Hernandez MD Unavailable Unavailable Ricky, Kelly Hernandez MD Unavailable Unavailable Ricky, Kelly Hernandez MD Unavailable Unavailable Ricky, Kelly Hernandez MD Unavailable Unavailable Ricky, Kelly Hernandez MD Unavailable Unavailable Ricky, Kelly Hernandez MD Unavailable Unavailable Ricky, Kelly Hernandez MD Unavailable Unavailable Ricky, Kelly Hernandez MD Unavailable Unavailable Ricky, A Mary PIZANO Unavailable Unavailable Ricky, Kelly Hernandez MD Unavailable Unavailable Ricky, Kelly Hernandez MD Unavailable Unavailable Ricky, Kelly Hernandez MD Unavailable Unavailable Ricky, Kelly Hernandez MD Unavailable Unavailable Ricky, A Mary PIZANO Unavailable Unavailable Ricky, A Mary PIZANO Unavailable Unavailable Ricky, A Mary PIZANO Unavailable Unavailable Ricky, A Mary PIZANO Unavailable Unavailable Ricky, A Mary PIZANO Unavailable Unavailable Ricky, A Mary PIZANO Unavailable Unavailable Ricky, A Mary PIZANO Unavailable Unavailable Ricky, A Mary PIZANO Unavailable Unavailable Ricky, A Mary PIZANO Unavailable Unavailable Ricky, A Mary PIZANO Unavailable Unavailable Ricky, A Mary PIZANO Unavailable Unavailable Ricky, A Mary PIZANO Unavailable Unavailable Ricky, A Mary PIZANO Unavailable Unavailable Ricky, Kelly Hernandez MD Unavailable Unavailable Ricky, Kelly Hernandez MD Unavailable Unavailable Ricky, A Mary PIZANO Unavailable Unavailable Ricky, A Mary PIZANO Unavailable Unavailable Ricky, A Mary PIZANO Unavailable Unavailable Ricky, A Mary PIZANO Unavailable Unavailable Ricky, A Mary PIZANO Unavailable Unavailable Ricky, A Mary PIZANO Unavailable Unavailable Ricky, Kelly Hernandez MD Unavailable Unavailable Ricky, Kelly Hernandez MD Unavailable Unavailable Ricky, Kelly Hernandez MD Unavailable Unavailable Ricky, Kelly Hernandez MD Unavailable Unavailable Ricky, Kelly Hernandez MD Unavailable Unavailable Ricky, Kelly Hernandez MD Unavailable Unavailable Ricky, Kelly Hernandez MD Unavailable Unavailable Ricky, Kelly Hernandez MD Unavailable Unavailable Ricky, Kelly Hernandez MD Unavailable Unavailable Ricky, Kelly Hernandez MD Unavailable Unavailable Ricky, Kelly Hernandez MD Unavailable Unavailable Ricky, A Mary PIZANO Unavailable Unavailable Ricky, A Mray PIZANO Unavailable Unavailable Ricky, A Mary PIZANO Unavailable Unavailable Ricky, A Mary PIZANO Unavailable Unavailable Ricky, A Mary PIZANO Unavailable Unavailable Ricky, Kelly Hernandez MD Unavailable Unavailable Ricky, Kelly Hernandez MD Unavailable Unavailable Ricky, Kelly Hernandez MD Unavailable Unavailable Ricky, Kelly Hernandez MD Unavailable Unavailable Ricky, Kelly Hernandez MD Unavailable Unavailable Ricky, Kelly Hernandez MD Unavailable Unavailable Ricky, Kelly Hernandez MD Unavailable Unavailable Ricky, Kelly Hernandez MD Unavailable Unavailable Ricky, Kelly Hernandez MD Unavailable Unavailable Ricky, Kelly Hernandez MD Unavailable Unavailable Ricky, Kelly Hernandez MD Unavailable Unavailable Ricky, Kelly Hernandez MD Unavailable Unavailable Ricky, Kelly Hernandez MD Unavailable Unavailable Ricky, Kelly Hernandez MD Unavailable Unavailable Ricky, Kelly Hernandez MD Unavailable Unavailable Ricky, Kelly Hernandez MD Unavailable Unavailable Ricky, Kelly Hernandez MD Unavailable Unavailable Ricky, Kelly Hernandez MD Unavailable Unavailable Lara, L Bette DSP ENGINEER Unavailable Unavailable Lara, L Bette DSP ENGINEER Unavailable Unavailable Lara, L Bette DSP ENGINEER Unavailable Unavailable Lara, L Bette DSP ENGINEER Unavailable Unavailable Lara, L Bette DSP ENGINEER Unavailable Unavailable Lara, L Bette DSP ENGINEER Unavailable Unavailable Lara, L Bette DSP ENGINEER Unavailable Unavailable Lara, L Bette DSP ENGINEER Unavailable Unavailable Lara, L Bette DSP ENGINEER Unavailable Unavailable Lara, L Bette DSP ENGINEER Unavailable Unavailable Lara, L Bette DSP ENGINEER Unavailable Unavailable Lara, L Bette DSP ENGINEER Unavailable Unavailable Lara, L Bette DSP ENGINEER Unavailable Unavailable Lara, L Bette DSP ENGINEER Unavailable Unavailable Lara, L Bette DSP ENGINEER Unavailable Unavailable Lara, L Bette DSP ENGINEER Unavailable Unavailable Lara, L Bette DSP ENGINEER Unavailable Unavailable Lara, L Bette DSP ENGINEER Unavailable Unavailable Lara, L Bette DSP ENGINEER Unavailable Unavailable Lara, L Bette DSP ENGINEER Unavailable Unavailable Lara, L Bette DSP ENGINEER Unavailable Unavailable Lara, L Bette DSP ENGINEER Unavailable Unavailable Lara, L Bette DSP ENGINEER Unavailable Unavailable Lara, L Bette DSP ENGINEER Unavailable Unavailable Lara, L Bette DSP ENGINEER Unavailable Unavailable Lara, L Bette DSP ENGINEER Unavailable Unavailable Lara, L Bette DSP ENGINEER Unavailable Unavailable Lara, L Bette DSP ENGINEER Unavailable Unavailable Lara, L Bette DSP ENGINEER Unavailable Unavailable Lara, L Bette DSP ENGINEER Unavailable Unavailable Lara, L Bette DSP ENGINEER Unavailable Unavailable Lara, L Bette DSP ENGINEER Unavailable Unavailable Lara, L Bette DSP ENGINEER Unavailable Unavailable Lara, L Bette DSP ENGINEER Unavailable Unavailable Lara, L Bette DSP ENGINEER Unavailable Unavailable Lara, L Bette DSP ENGINEER Unavailable Unavailable Lara, L Bette DSP ENGINEER Unavailable Unavailable Lara, L Bette DSP ENGINEER Unavailable Unavailable Lara, L Bette DSP ENGINEER Unavailable Unavailable Lara, L Bette DSP ENGINEER Unavailable Unavailable Jamie, L Joy LOOM STARTER Unavailable Unavailable Jamie, L Joy LOOM STARTER Unavailable Unavailable Jamie, L Joy LOOM STARTER Unavailable Unavailable Jamie, L Joy LOOM STARTER Unavailable Unavailable Jamie, L Joy LOOM STARTER Unavailable Unavailable Jamie, L Joy LOOM STARTER Unavailable Unavailable Jamie, L Joy LOOM STARTER Unavailable Unavailable Jamie, L Joy LOOM STARTER Unavailable Unavailable Jamie, L Joy LOOM STARTER Unavailable Unavailable Jamie, L Joy LOOM STARTER Unavailable Unavailable Jamie, L Joy LOOM STARTER Unavailable Unavailable Jamie, L Joy LOOM STARTER Unavailable Unavailable Jamie, L Jyo LOOM STARTER Unavailable Unavailable Jamie, L Joy LOOM STARTER Unavailable Unavailable Jamie, L Joy LOOM STARTER Unavailable Unavailable Jamie, L Joy LOOM STARTER Unavailable Unavailable Jamie, L Joy LOOM STARTER Unavailable Unavailable Jamie, L Joy LOOM STARTER Unavailable Unavailable Jamie, L Joy LOOM STARTER Unavailable Unavailable Jamie, L Joy LOOM STARTER Unavailable Unavailable Jamie, L Joy LOOM STARTER Unavailable Unavailable Jamie, L Joy LOOM STARTER Unavailable Unavailable Jamie, L Joy LOOM STARTER Unavailable Unavailable Jamie, L Joy LOOM STARTER Unavailable Unavailable Jamie, L Joy LOOM STARTER Unavailable Unavailable Jamei, L Joy LOOM STARTER Unavailable Unavailable Jamie, L Joy LOOM STARTER Unavailable Unavailable Jamie, L Joy LOOM STARTER Unavailable Unavailable Jamie, L Joy LOOM STARTER Unavailable Unavailable Jamie, L Joy LOOM STARTER Unavailable Unavailable Jamie, L Joy LOOM STARTER Unavailable Unavailable Jamie, L Joy LOOM STARTER Unavailable Unavailable Jamie, L Joy LOOM STARTER Unavailable Unavailable Jamie, L Joy LOOM STARTER Unavailable Unavailable Jamie, L Joy LOOM STARTER Unavailable Unavailable Jamie, L Joy LOOM STARTER Unavailable Unavailable Jamie, L Joy LOOM STARTER Unavailable Unavailable Agustin Fuentes MD Unavailable Unavailable Agustin Fuentes MD Unavailable Unavailable Agustin Fuentes MD Unavailable Unavailable Agustin Fuentes MD Unavailable Unavailable Agustin Fuentes MD Unavailable Unavailable Agustin Fuentes MD Unavailable Unavailable Agustin Fuentes MD Unavailable Unavailable Agustin Fuentes MD Unavailable Unavailable Agustin Fuentes MD Unavailable Unavailable Agustin Fuentes MD Unavailable Unavailable Agustin Fuentes MD Unavailable Unavailable Agustin Fuentes MD Unavailable Unavailable Agustin Fuentes MD Unavailable Unavailable Agustin Fuentes MD Unavailable Unavailable Agustin Fuentes MD Unavailable Unavailable Agustin Fuentes MD Unavailable Unavailable Agustin Fuentes MD Unavailable Unavailable Agustin Fuentes MD Unavailable Unavailable Agustin Fuentes MD Unavailable Unavailable Vaneenenaam, Agustin Malik MD Unavailable Unavailable Vaneenenaam, Agustin Malik MD Unavailable Unavailable Vaneenenaam, Agustin Malik MD Unavailable Unavailable Vaneenenaam, Agustin Malik MD Unavailable Unavailable Vaneenenaam, Agustin Malik MD Unavailable Unavailable Vaneenenaam, Agustin Malik MD Unavailable Unavailable Vaneenenaam, Agustin Malik MD Unavailable Unavailable Vaneenenaam, Agustin Malik MD Unavailable Unavailable Vaneenenaam, Agustin Malik MD Unavailable Unavailable Vaneenenaam, Agustin Malik MD Unavailable Unavailable Vaneenenaam, Agustin Malik MD Unavailable Unavailable Vaneenenaam, Agustin Malik MD Unavailable Unavailable Vaneenenaam, Agustin Malik MD Unavailable Unavailable Vaneenenaam, Agustin Malik MD Unavailable Unavailable Vaneenenaam, Agustin Malik MD Unavailable Unavailable Vaneenenaam, Agustin Malik MD Unavailable Unavailable Vaneenenaam, Agustin Malik MD Unavailable Unavailable Vaneenenaam, Agustin Malik MD Unavailable Unavailable Vaneentessaam, Agustin Malik MD Unavailable Unavailable Vaneentessaam, Agustin Malik MD Unavailable Unavailable Vannikolaiam, Agustin Malik MD Unavailable Unavailable Vannikolaiam, Agustin Malik MD Unavailable Unavailable Vaneenenaam, Agustin Malik MD Unavailable Unavailable Vaneenenaam, Agustin Malik MD Unavailable Unavailable Vaneenenaam, Agustin Malik MD Unavailable Unavailable Ricky, Kelly Hernandez MD Unavailable Unavailable Ricky, Kelly Hernandez MD Unavailable Unavailable Ricky, Kelly Hernandez MD Unavailable Unavailable Ricky, Kelly Hernandez MD Unavailable Unavailable Ricky, Kelly Hernandez MD Unavailable Unavailable Ricky, Kelly Hernandez MD Unavailable Unavailable Ricky, Kelly Hernandez MD Unavailable Unavailable Ricky, Kelly Hernandez MD Unavailable Unavailable Ricky, Kelly Hernandez MD Unavailable Unavailable Ricky, Kelly Hernnadez MD Unavailable Unavailable Ricky, Kelly Hernandez MD Unavailable Unavailable Ricky, Kelly Hernandez MD Unavailable Unavailable Ricky, Kelly Hernandez MD Unavailable Unavailable Ricky, Kelly Hernandez MD Unavailable Unavailable Ricky, Kelly Hernandez MD Unavailable Unavailable Ricky, Kelly Hernandez MD Unavailable Unavailable Ricky, Kelly Hernandez MD Unavailable Unavailable Ricky, Kelly Hernandez MD Unavailable Unavailable Ricky, Kelly Hernandez MD Unavailable Unavailable Ricky, Kelly Hernandez MD Unavailable Unavailable Ricky, Kelly Hernandez MD Unavailable Unavailable Ricky, Kelly Hernandez MD Unavailable Unavailable Ricky, Kelly Hernandez MD Unavailable Unavailable Ricky, Kelly Hernandez MD Unavailable Unavailable Ricky, Kelly Hernandez MD Unavailable Unavailable Ricky, Kelly Hernandez MD Unavailable Unavailable Ricky, Kelly Hernandez MD Unavailable Unavailable Ricky, Kelly Hernandez MD Unavailable Unavailable Ricky, Kelly Hernandez MD Unavailable Unavailable Ricky, Kelly Hernandez MD Unavailable Unavailable Ricky, Kelly Hernandez MD Unavailable Unavailable Ricky, Kelly Hernandez MD Unavailable Unavailable Ricky, Kelly Hernandez MD Unavailable Unavailable Ricky, Kelly Hernandez MD Unavailable Unavailable Ricky, Kelly Hernandez MD Unavailable Unavailable Ricky, Kelly Hernandez MD Unavailable Unavailable Ricky, Kelly Hernandez MD Unavailable Unavailable Ricky, Kelly Hernandez MD Unavailable Unavailable Ricky, Kelly Hernandez MD Unavailable Unavailable Ricky, Kelly Hernandez MD Unavailable Unavailable Ricky, Kelly Hernandez MD Unavailable Unavailable Ricky, Kelly Hernandez MD Unavailable Unavailable Ricky, Kelly Hernandez MD Unavailable Unavailable Ricky, Kelly Hernandez MD Unavailable Unavailable Ricky, Kelly Hernandez MD Unavailable Unavailable Ricky, Kelly Hernandez MD Unavailable Unavailable Ricky, Kelly Hernandez MD Unavailable Unavailable Ricky, Kelly Hernandez MD Unavailable Unavailable Ricky, Kelly Hernandez MD Unavailable Unavailable Ricky, Kelly Hernandez MD Unavailable Unavailable Ricky, Kelly Hernandez MD Unavailable Unavailable Ricky, Kelly Hernandez MD Unavailable Unavailable Ricky, Kelly Hernandez MD Unavailable Unavailable Ricky, Kelly Hernandez MD Unavailable Unavailable Ricky, Kelly Hernandez MD Unavailable Unavailable Ricky, Kelly Hernandez MD Unavailable Unavailable Ricky, Kelly Hernandez MD Unavailable Unavailable Ricky, Kelly Hernandez MD Unavailable Unavailable Ricky, Kelly Hernandez MD Unavailable Unavailable Ricky, Kelly Hernandez MD Unavailable Unavailable Ricky, Kelly Hernandez MD Unavailable Unavailable Ricky, Kelly Hernandez MD Unavailable Unavailable Ricky, Kelly Hernandez MD Unavailable Unavailable Ricky, Kelly Hernandez MD Unavailable Unavailable Ricky, Kelly Hernandez MD Unavailable Unavailable Ricky, Kelly Hernandez MD Unavailable Unavailable Ricky, Kelly Hernandez MD Unavailable Unavailable Ricky, Kelly Hernandez MD Unavailable Unavailable Ricky, Kelly Hernandez MD Unavailable Unavailable Ricky, Kelly Hernandez MD Unavailable Unavailable Ricky, Kelly Hernandez MD Unavailable Unavailable Ricky, Kelly Hernandez MD Unavailable Unavailable Ricky, Kelly Hernandez MD Unavailable Unavailable Ricky, Kelly Hernandez MD Unavailable Unavailable Ricky, Kelly Hernandez MD Unavailable Unavailable Mandappa, Ximoy CASAC Unavailable Unavailable Mandappa, Xiomy CASAC Unavailable Unavailable Mandappa, Xiomy CASAC Unavailable Unavailable Mandappa, Xiomy CASAC Unavailable Unavailable Lizeth SMITH MD Unavailable Unavailable Lizeth SMITH MD Unavailable Unavailable Lizeth SMITH MD Unavailable Unavailable Lizeth SMITH MD Unavailable Unavailable Lizeth SMITH MD Unavailable Unavailable Lizeth SMITH MD Unavailable Unavailable Lizeth SMITH MD Unavailable Unavailable Lizeth SMITH MD Unavailable Unavailable Lizeth SMITH MD Unavailable Unavailable Lizeth SMITH MD Unavailable Unavailable Lizeth SMITH MD Unavailable Unavailable Lizeth SMITH MD Unavailable Unavailable Lizeth SMITH MD Unavailable Unavailable Lizeth SMITH MD Unavailable Unavailable Lizeth SMITH MD Unavailable Unavailable Lizeth SMITH MD Unavailable Unavailable Lizeth SMITH MD Unavailable Unavailable Lizeth SMITH MD Unavailable Unavailable Lizeth SMITH MD Unavailable Unavailable Lizeth SMITH MD Unavailable Unavailable Lizeth SMITH MD Unavailable Unavailable Lizeth SMITH MD Unavailable Unavailable Lizeth SMITH MD Unavailable Unavailable Lizeth SMITH MD Unavailable Unavailable Lizeth SMITH MD Unavailable Unavailable Lizeth SMITH MD Unavailable Unavailable Lizeth SMITH MD Unavailable Unavailable Lizeth SMITH MD Unavailable Unavailable Lizeth SMITH MD Unavailable Unavailable Lizeth SMTIH MD Unavailable Unavailable Lizeth SMITH MD Unavailable Unavailable Lizeth SMITH MD Unavailable Unavailable Lizeth SMITH MD Unavailable Unavailable Lizeth SMITH MD Unavailable Unavailable Lizeth SMITH MD Unavailable Unavailable Lizeth SMITH MD Unavailable Unavailable Lizeth SMITH MD Unavailable Unavailable Lizeth SMITH MD Unavailable Unavailable Lizeth SMITH MD Unavailable Unavailable Lizeth SMITH MD Unavailable Unavailable Lizeth SMITH MD Unavailable Unavailable Lizeth SMITH MD Unavailable Unavailable Lizeth SMITH MD Unavailable Unavailable Lizeth SMITH MD Unavailable Unavailable Lizeth SMITH MD Unavailable Unavailable Lizeth SMITH MD Unavailable Unavailable Lizeth SMITH MD Unavailable Unavailable Lizeth SMITH MD Unavailable Unavailable Lizeth SMITH MD Unavailable Unavailable Lizeth SMITH MD Unavailable Unavailable Lizeth SMITH MD Unavailable Unavailable Lizeth SMITH MD Unavailable Unavailable Lizeth SMITH MD Unavailable Unavailable Lizeth SMITH MD Unavailable Unavailable Lizeth SMITH MD Unavailable Unavailable Lizeth SMITH MD Unavailable Unavailable Lizeth SMITH MD Unavailable Unavailable Lizeth SMITH MD Unavailable Unavailable Lizeth SMITH MD Unavailable Unavailable Lizeth SMITH MD Unavailable Unavailable Lizeth SMITH MD Unavailable Unavailable Lizeth SMITH MD Unavailable Unavailable Lizeth SMITH MD Unavailable Unavailable Lizeth SMITH MD Unavailable Unavailable Pleskach, Milady DSP ENGINEER Unavailable Unavailable Pleskach, Milady DSP ENGINEER Unavailable Unavailable Pleskach, Milady DSP ENGINEER Unavailable Unavailable Pleskach, Milady DSP ENGINEER Unavailable Unavailable Pleskach, Milady DSP ENGINEER Unavailable Unavailable Pleskach, Milady DSP ENGINEER Unavailable Unavailable Pleskach, Milady DSP ENGINEER Unavailable Unavailable Pleskach, Milady DSP ENGINEER Unavailable Unavailable Pleskach, Milady DSP ENGINEER Unavailable Unavailable Pleskach, Milady DSP ENGINEER Unavailable Unavailable Pleskach, Milady DSP ENGINEER Unavailable Unavailable Pleskach, Milady DSP ENGINEER Unavailable Unavailable Pleskach, Milady DSP ENGINEER Unavailable Unavailable Pleskach, Milady DSP ENGINEER Unavailable Unavailable Pleskach, Milady DSP ENGINEER Unavailable Unavailable Pleskach, Milady DSP ENGINEER Unavailable Unavailable Pleskach, Milady DSP ENGINEER Unavailable Unavailable Pleskach, Milady DSP ENGINEER Unavailable Unavailable Pleskach, Milady DSP ENGINEER Unavailable Unavailable Pleskach, Milady DSP ENGINEER Unavailable Unavailable Pleskach, Milady DSP ENGINEER Unavailable Unavailable Pleskach, Milady DSP ENGINEER Unavailable Unavailable Pleskach, Milady DSP ENGINEER Unavailable Unavailable Pleskach, Milady DSP ENGINEER Unavailable Unavailable Pleskach, Milady DSP ENGINEER Unavailable Unavailable Pleskach, Milady DSP ENGINEER Unavailable Unavailable Pleskach, Milady DSP ENGINEER Unavailable Unavailable Pleskach, Milady DSP ENGINEER Unavailable Unavailable Petrancosta, Wilson Hanny PA-C Unavailable Unavailabl e Petrancosta, Wilson Hanny PA-C Unavailable Unavailabl e Petrancosta, Wilson Hanny PA-C Unavailable Unavailabl e Petrancosta, Wilson Hanny PA-C Unavailable Unavailabl e Petrancosta, Wilson Hanny PA-C Unavailable Unavailabl e Petrancosta, Wilson Hanny PA-C Unavailable Unavailabl e Petrancosta, Wilson Hanny PA-C Unavailable Unavailabl e Petrancosta, Wilson Hanny PA-C Unavailable Unavailabl e Petrancosta, Wilson Hanny PA-C Unavailable Unavailabl e Petrancosta, Wilson Hanny PA-C Unavailable Unavailabl e Petrancosta, Wilson Hanny PA-C Unavailable Unavailabl e Petrancosta, Wilson Hanny PA-C Unavailable Unavailabl e Petrancosta, Wilson Hanny PA-C Unavailable Unavailabl e Petrancosta, Wilson Hanny PA-C Unavailable Unavailabl e Petrancosta, Wilson Hanny PA-C Unavailable Unavailabl e Petrancosta, Wilson Hanny PA-C Unavailable Unavailabl e Petrancosta, Wilson Hanny PA-C Unavailable Unavailabl e Petrancosta, Wilson Hanny PA-C Unavailable Unavailabl e Petrancosta, Wilson Hanny PA-C Unavailable Unavailabl e Petrancosta, Phillip Hanny PA-C Unavailable Unavailabl e Petrancosta, Phillip Hanny PA-C Unavailable Unavailabl e Petrancosta, Wilson Hanny PA-C Unavailable Unavailabl e ALAM, ANTHONY-E MD Unavailable Unavailable ALAM, ANTHONY-E MD Unavailable Unavailable ALAM, ANTHONY-E MD Unavailable Unavailable ALAM, ANTHONY-E MD Unavailable Unavailable ALAM, ANTHONY-E MD Unavailable Unavailable ALAM, ANTHONY-E MD Unavailable Unavailable ALAM, ANTHONY-E MD Unavailable Unavailable ALAM, ANTHONY-E MD Unavailable Unavailable ALAM, ANTHONY-E MD Unavailable Unavailable ALAM, ANTHONY-E MD Unavailable Unavailable ALAM, ANTHONY-E MD Unavailable Unavailable ALAM, ANTHONY-E MD Unavailable Unavailable ALAM, ANTHONY-E MD Unavailable Unavailable ALAM, ANTHONY-E MD Unavailable Unavailable Re-disclosure Warning The records that you are about to access may contain information from federally-assisted alcohol or drug abuse programs. If such information is present, then the following federally mandated warning applies: This information has been disclosed to you from records protected by federal confidentiality rules (42 CFR part 2). The federal rules prohibit you from making any further disclosure of this information unless further disclosure is expressly permitted by the written consent of the person to whom it pertains or as otherwise permitted by 42 CFR part 2. A general authorization for the release of medical or other information is NOT sufficient for this purpose. The Federal rules restrict any use of the information to criminally investigate or prosecute any alcohol or drug abuse patient.The records that you are about to access may contain highly sensitive health information, the redisclosure of which is protected by Article 27-F of the [facility] Public Health law. If you continue you may have access to information: Regarding HIV / AIDS; Provided by facilities licensed or operated by the [facility] Office of Mental Health; or Provided by the [facility] Office for People With Developmental Disabilities. If such information is present, then the following [facility] mandated warning applies: This information has been disclosed to you from confidential records which are protected by state law. State law prohibits you from making any further disclosure of this information without the specific written consent of the person to whom it pertains, or as otherwise permitted by law. Any unauthorized further disclosure in violation of state law may result in a fine or retirement sentence or both. A general authorization for the release of medical or other information is NOT sufficient authorization for further disc losure. Allergies and Adverse Reactions Type Description Substance Reaction Status Data Source(s ) Drug Allergy NKDA NKDA [facility] ([facility] Family History Family Member Name Family Member Gender Family Member Status Date o f Status Description Data Source(s) Unknown Male Problem [facility] ([facility] ) Unknown Male Problem [facility] ([facility] Unknown Unknown Problem [facility] ([facility] mother,father Encounters Encounter Providers Location Date Indications Data Source(s ) Outpatient Attender: Joy Ayala NPReferrer: AUNG VITAL MD 01/05/2021 12:00:00 AM [facility] Outpatient Attender: Joy Ayala NPReferrer: AUNG VITAL MD 12/15/2020 12:00:00 AM [facility] Inpatient Attender: JANNETH Xiao matthew: AUNG VITAL MDAttender: TARIQ MENDIOLA MDAttender: LILIANA HARKINS DOAdmitter: LILIANA HARKINS DO 06:17:16 AM EST Lab [facility] Inpatient Attender: JANNETH castro: MD Butterfield: TARIQ MENDIOLA MDAttender: Elías Gordon MDAdmitter: Elías Gordon MD 1 01/07/2020 05:59:00 AM EST - 12/03/2020 04:05:00 PM EST LOW BACK PAIN, 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 [facility] LOW BACK PAIN, 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 Patient discharged. ( in Healthcare facility) Attender: JANNETH Bethea: MD Butterfield: Elías Gordon MDAdmitter: Elías Gordon MDConsultant: Mary Hernandes MD 11/06/2020 05:59:00 AM EST [facility] Inpatient Attender: TARIQ Bethea: Elías Gordon MD 11/06/2020 05:59:[address] [facility] Outpatient Attender: LILIANA HARKINS DO 11/05/2020 09:35:27 AM EST Lab [facility] Outpatient Attender: LILIANA HARKINS DO 11/04/2020 07:52:40 PM EST [facility] Outpatient Attender: Elías Gordon MD 11/04/2020 06:0 9:00 PM EST TYPE AND SCREEN [facility] TYPE AND SCREEN Outpatient Attender: Elías Gordon MDReferrer: Mary vazquez MD 11/04/2020 03:54:47 PM EST [facility] Recurring Patient Attender: EDER POLO MDReferrer: EDER POLO MD 11/04/2020 02:34:59 PM EST [facility] Outpatient Attender: Elías Gordon MD 11/04/2020 12:0 8:00 PM EST L3-S1 POSTERIOR SPINAL FUSION WITH INSTRUMENTATION, POSTERIO [facility] L3-S1 POSTERIOR SPINAL FUSION WITH INSTR UMENTATION, POSTERIO Outpatient Attender: NA MEDENT_104 CMP Internal Med at [facility] 11/03/2020 10:15:00 AM EST [facility] ([facility] Outpatient Attender: Milady Galeas [facility] Main Office 11/02/2020 0 2:15:00 PM EST [facility] ([facility] Outpatient Attender: EDER MCLEANeferrer: Mary parks MD 10/29/2020 12:07:30 PM EST [facility] Recurring Patient Attender: EDER POLO MDReferrer: EDER POLO MD 10/29/2020 10:25:18 AM EST [facility] Outpatient Attender: Brenton Mccabeerrer: EDER HEDRICK MD 10/19/2020 09:08:01 PM EST [facility] Outpatient Attender: Milady Galeas [facility] Main Office 10/13/2020 1 2:15:00 PM EST [facility] ([facility] Outpatient Attender: Brenton Mccabeerrer: EDER HEDRICK MD 10/11/2020 05:12:57 PM EST [facility] Outpatient Attender: Hanny Tyson PA-C Main Office 09/23/2020 09:45:00 AM EST [facility] ([facility] Outpatient Attender: Brenton DALTONeferrer: EDER HEDRICK MD 09/15/2020 11:43:14 AM EDT [facility] Outpatient Admitter: EDER POLO MDReferrer: EDER POLO MD MOB-MOB.PAT 09/10/2020 11:13:22 AM EDT - 09/10/2020 11:13:27 AM EDT [facility] Outpatient Attender: EDER POLO MDAdmitter: EDER POLO MDReferrer: EDER POLO MD MOB-MOB.PAT 09/07/2020 02:12:47 PM EDT - 09/07/2020 03:00:43 PM EDT [facility] Outpatient Attender: Hanny Tyson PA-C Main Office 09/02/2020 02:15:00 PM EDT [facility] ([facility] Inpatient Attender: KEEGAN SMITH MDAt tender: EDER OPLO MDAdmitter: EDER POLO MD [id number] 08/24/2020 08:19:05 AM EDT - 09/17/2020 12:54:00 PM EDT [facility] Patient discharged. Outpatient Attender: EDER POLO MDReferrer: EDER POLO MD 08/14/2020 10:39:10 AM EDT [facility] Outpatient Attender: EDER POLO MDReferrer: Xiomy Marques CASAC 07/16/2020 11:36:39 AM EDT [facility] Recurring Patient Attender: EDER POLO MDReferrer: EDER POLO MD 07/16/2020 10:42:02 AM EDT [facility] Outpatient Attender: Tracey Boyle MD Physical Therapy 06/29 03:45:00 PM EDT [facility] ([facility] ) Outpatient Referrer: Bette Lara DSP ENGINEER 05/11/2020 05:07 :00 AM EDT [facility] Outpatient Attender: [id number] [facility] 04/28/2020 07:41:57 PM EDT [facility] Outpatient Attender: ZEINA ALONZO NP Physical Therapy 04/17/2020 0 9:45:00 AM EDT [facility] ([facility]) Outpatient Attender: ZEINA ALONZO NP Physical Therapy 03/16/2020 0 9:15:00 AM EDT [facility] ([facility]) Outpatient Attender: Tracey Boyle MD Physical Therapy 02/12 02:30:00 PM EDT [facility] ([facility]) Outpatient Attender: Agustin Fuentes MD Physical Therap y 01/02/2020 09:15:00 AM EST [facility] ([facility]) Outpatient Referrer: Bette Lara DSP ENGINEER 01/01/2020 03:25 :00 PM EST [facility] Outpatient Attender: ZEINA ALONZO NP Physical Therapy 12/18/2019 0 1:30:00 PM EST [facility] ([facility]) Sruthi Maria, LOOM STARTER: [id number], [place] [address], Ph. Attender: Sruthi Maria [facility] Office 11/25/2019 12:00:00 AM EST ATHE NA ([facility]) Outpatient Attender: Sandrine KELLEY Main Office 10/22/2019 07:45:00 AM EST [facility] ([facility] Outpatient Attender: ZEINA ALONZO NP Physical Therapy 10/16/2019 1 0:15:00 AM EST [facility] ([facility]) Sruthi Maria LOOM STARTER: [address], [place] [address], Ph. Attender: Sruthi Maria [facility] - [facility] Office 10/15/2019 12:00:00 AM EST [facility] NA ([facility]) Sruthi Maria, LOOM STARTER: [address], [place] [address], Ph. Attender: Sruthi Maria [facility] - [facility] - Main Office 10/15/2019 12:00:00 AM EST [facility] NA ([facility]) Immunizations Vaccine Date Status Description Data Source(s) New in 2012. IIV4 09/02/2020 02:52:00 PM EDT completed [facility] ([facility] Medications Medication Brand Name Start Date Product Form Dose Route Admi nistrative Instructions Pharmacy Instructions Status Indications Reaction Description Data Source(s) 30 mg 12/03/2020 12:00:00 AM EST tablet extended release 28 TAKE TWO TABLETS BY MOUTH EVERY 12 HOURS MAXIMUM DAILY DOSE = FOUR TABLETS TAKE TWO TABLETS BY MOUTH EVERY 12 HOURS MAXIMUM DAILY DOSE = FOUR TABLETS SOLD: 12/03/2020 [facility] 4 mg 12/03/2020 12:00:00 AM EST tablet 30 TAKE ONE TABLET BY MOUTH EVERY 6 HOURS NEEDED FOR NAUSEA OR VOMITING TAKE ONE TABLET BY MOUTH EVERY 6 HOURS A S NEEDED FOR NAUSEA OR VOMITING SOLD: 12/03/2020 [facility] 10 mg 12/03/2020 12:00:00 AM EST suppository 30 INSERT ONE SUPPOSITORY PER RECTUM DAILY NEEDED FOR CONSTIPATION IF NO RESULTS FROM MIL[facility] OF MAGNESIA AFTER 8 HOURS INSERT ONE SUPPOSITORY PER RECTUM DAILY NEEDED FOR CONSTIPATION IF NO RESULTS FROM [facility] OF MAGNESIA AFTER 8 HOURS SOLD: 12/03/2020 [facility] 7.5-325 mg 11/05/2020 12:00:00 AM EST tablet 42 TAKE ONE TABLET BY MOUTH EVERY 4 HOURS, MAXIMUM DAILY DOSE = SIX TABLETS TAKE ONE TABLET BY MOUTH EVERY 4 HOURS, MAXIMUM DAILY DOSE = SIX TABLETS SOLD: 11/05/2020 [facility] tizanidine 4 MG Oral Tablet TIZANIDINE HCL 11/04/2020 12:00:00 AM EST tablet 30 TAKE ONE TABLET BY MOUTH THREE TIMES A DAY NEEDED T JAKE ONE TABLET BY MOUTH THREE TIMES A DAY NEEDED SOLD: 11/04/2020 [facility] 500 mg 11/04/2020 12:00:00 AM EST tablet 60 TAKE ONE TABLET BY MOUTH TWICE A DAY NEEDED TAKE ONE TABLET BY MOUTH TWICE A DAY NEEDED SOLD: 11/04/2020 [facility] 30 mg 11/03/2020 12:00:00 AM EST tablet 30 TAKE ONE TABLET BY MOUTH EVERY DAY AT BEDTIME TAKE ONE TABLET BY MOUTH EVERY DAY AT BEDTIME SOLD: 11/04/2020 [facility] Mirtazapine 30 MG Oral Tablet Mirtazapine 11/02/2020 12:00:00 AM EST ORAL active [facility] ([facility] 7.5-325 mg 10/26/2020 12:00:00 AM EST tablet 60 TAKE 1 TO 2 TABLETS BY MOUTH EVERY 6 HOURS NEEDED FOR PAIN, MAXIMUM DAILY DOSE = SIX TABLETS TAKE 1 TO 2 TABLETS BY MOUTH EVERY 6 HOURS NEEDED FOR PAIN, MAXIMUM DAILY DOSE = SIX TABLETS SOLD: 10/26/2020 [facility] ferrous sulfate 325 MG Oral Tablet Ferrous Sulfate 10/24/2020 12:00 :00 AM EST ORAL active [facility] ([facility] Diclofenac Sodium 75 MG Delayed Release Oral Tablet Diclofen ac Sodium 10/24/2020 12:00:00 AM EST ORAL active M [facility] ([facility] Acetaminophen 325 MG / Oxycodone Hydrochloride 7.5 MG Oral Tablet [Percocet] Percocet 10/24/2020 12:00:00 AM EST active [facility] ([facility] pantoprazole 40 MG Delayed Release Oral Tablet Pantoprazole Sodium 10/24/2020 12:00:00 AM EST ORAL active M [facility] ([facility] 325 mg (65 mg iron) 10/24/2020 12:00:00 AM EST tablet 60 TAKE ONE TABLET BY MOUTH TWICE A DAY TAKE ONE TABLET BY MOUTH TWICE A DAY SOLD: 10/24/2020 [facility] 100 mg 10/24/2020 12:00:00 AM EST capsule 28 TAKE ONE CAPSULE BY MOUTH TWICE A DAY TAKE ONE CAPSULE BY MOUTH TWICE A DAY SOLD: 10/24/2020 [facility] Basaglar Kwikpen Basaglar Kwikpen 10/24/2020 12:00:00 AM EST active [facility] ([facility] 10 mg 10/24/2020 12:00:00 AM EST tablet 90 TAKE ONE TABLET BY MOUTH THREE TIMES A DAY NEEDED FOR NAUSEA AND VOMITING TAKE ONE TABLET BY MOUTH THREE TIMES A DAY NEEDED FOR NAUSEA AND VOMITING SOLD: 10/24/2020 [facility] pantoprazole 40 MG Delayed Release Oral Tablet PANTOPRAZOLE SODIUM 10/24/2020 12:00:00 AM EST tablet,delayed release (DR/EC) 30 T JAKE ONE TABLET BY MOUTH EVERY DAY TAKE ONE TABLET BY MOUTH EVERY DAY SOLD: 10/24/2020 [facility] Docusate Sodium 100 MG Oral Capsule Docusate Sodium 10/24/2020 1 2:00:00 AM EST ORAL active [facility] ( [facility] Metoclopramide 10 MG Oral Tablet Metoclopramide HCL 10/24/2020 1 2:00:00 AM EST ORAL active [facility] ( [facility] Diclofenac Sodium 75 MG Delayed Release Oral Tablet DICLOFEN AC SODIUM 10/16/2020 12:00:00 AM EST tablet,delayed release (DR/EC) 60 TAKE ONE TABLET BY MOUTH TWICE A DAY, MAXIMUM DAILY DOSE = TWO TABLETS TAKE ONE TABLET BY MOUTH TWICE A DAY, MAXIMUM DAILY DOSE = TWO TABLETS SOLD: 10/24/2020 [facility] 7.5-325 mg 10/14/2020 12:00:00 AM EST tablet 60 TAKE 1 TO 2 TABLETS BY MOUTH EVERY 6 HOURS NEEDED FOR PAIN, MAXIMUM DAILY DOSE = SIX TABLETS TAKE 1 TO 2 TABLETS BY MOUTH EVERY 6 HOURS NEEDED FOR PAIN, MAXIMUM DAILY DOSE = SIX TABLETS SOLD: 10/14/2020 [facility] 100 unit/mL (3 mL) 10/11/2020 12:00:00 AM EST insulin pen 15 INJECT 10 UNITS UNDER THE SKIN DAILY INJECT 10 UNITS UNDER THE SKIN DAILY SOLD: 10/11/2020 [facility] Acetaminophen 325 MG / Oxycodone Hydrochloride 5 MG Or al Tablet [Percocet] Percocet 10/11/2020 12:00:00 AM EST ORAL completed [facility] ([facility] tizanidine 4 MG Oral Capsule Tizanidine HCL 10/11/2020 12:00:00 AM EST ORAL active [facility] ([facility] Methylprednisolone 4 MG Oral Tablet Methylprednisolone 09/21 12:00:00 AM EST completed [facility] ([facility] gabapentin 300 MG Oral Capsule Gabapentin 10/11/2020 12:00:00 AM EST active [facility] ([facility] 4 mg 10/07/2020 12:00:00 AM EST tablets,dose pack 21 TAKE BY MOUTH DIRECTED TAKE BY MOUTH DIRECTED SOLD: 10/07/2020 [facility] 5-325 mg 10/07/2020 12:00:00 AM EST tablet 12 TAKE ONE TABLET BY MOUTH EVERY 6 HOURS NEEDED FOR PAIN , MAXIMUM DAILY DOSE = 4 TABLETS TAKE ONE TABLET BY MOUTH EVERY 6 HOURS NEEDED FOR PAIN , MAXIMUM DAILY DOSE = 4 TABLETS SOLD: 10/07/2020 [facility] 5-325 mg 09/30/2020 12:00:00 AM EST tablet 80 TAKE 1 TO 2 TABLETS BY MOUTH EVERY 4 HOURS NEEDED FOR POST OP PAIN, MAXIMUM DAILY DOSE = EIGHT TABLETS TAKE 1 TO 2 TABLETS BY MOUTH EVERY 4 HOURS NEEDED FOR POST OP PAIN, MAXIMUM DAILY DOSE = EIGHT TABLETS SOLD: 09/30/2020 [facility] tizanidine 4 MG Oral Tablet TIZANIDINE HCL 09/29/2020 12:00:00 AM EST tablet 40 TAKE ONE TABLET BY MOUTH EVERY 6 HOURS NEEDED FOR S PASMS TAKE ONE TABLET BY MOUTH EVERY 6 HOURS NEEDED FOR SPASMS SOLD: 10/26/2020 [facility] 4 mg 09/29/2020 12:00:00 AM EST tablet 40 TAKE ONE TABLET BY MOUTH EVERY 6 HOURS NEEDED FOR SPASMS TAKE ONE TABLET BY MOUTH EVERY 6 HOURS A S NEEDED FOR SPASMS SOLD: 09/30/2020 [facility] 5-325 mg 09/21/2020 12:00:00 AM EST tablet 80 TAKE 1-2 TABLETS BY MOUTH EVERY 4 HOURS NEEDED FOR POST OP PAIN , MAXIMUM DAILY DOSE = 8 TABLETS TAKE 1-2 TABLETS BY MOUTH EVERY 4 HOURS NEEDED FOR POST OP PAIN , MAXIMUM DAILY DOSE = 8 TABLETS SOLD: 09/21/2020 [facility] Bisacodyl 10 MG Rectal Suppository bisacodyl (DULCOLAX ) suppository 10 mg bisacodyl (DULCOLAX) suppository 10 mg 09/17/2020 07:00:00 PM EDT 10 mg Rectal active 10 mg, Rectal, Once, Eli 09/17/20 at 1900, For 1 dose, Post-op
Post-op day #2Hold for BM
[facility] Medication administered onsite ondansetron (ZOFRAN) injection 8 mg [id number] 09/17/2020 10:12:0 3 AM EDT 8 mg Intravenous active 8 mg, In travenous, Every 4 hours PRN, nausea, vomiting, Starting Eli 09/17/20 at 1012, For 22 doses, Post-op
If unable to take PO
[facility] Medication administered onsite Calcium Carbonate 500 MG Chewable Tablet calcium carbonate (TUMS) chewable tablet 1,000 mg calcium carbonate (TUMS) chewable tablet 1,000 mg 08/21 10:12:03 AM EDT 1000 mg Oral active 1,000 mg, Oral, 2 times daily PRN, indigestion, heartburn, Starting Eli 09/17/20 at 1012, Post-op [facility] Medication administered onsite Acetaminophen 325 MG / Hydrocodone Rosanna trate 10 MG Oral Tablet HYDROcodone- acetaminophen (NORCO 10-325) 10-325 MG per tablet 1 tablet HYDROcodone- acetaminophen (NORCO 10-325) 10-325 MG per tablet 1 tablet 09/17/2020 10:12:03 AM EDT 1 {tbl} Oral active 1 tablet , Oral, Every 6 hours PRN, moderate pain (4-6), severe pain (7-10), Starting Eli 09/17/20 at 1012, For 7 days, Post-op [facility] Medication administered onsite 1.5 ML Insulin Glargine 300 UNT/ML Pen Injector [Toujeo] Manav Orourke 09/17/2020 12:00:00 AM EDT completed Arnieucallie Orourke [facility] ([facility] 5-325 mg 09/17/2020 12:00:00 AM EDT tablet 30 TAKE 1 TO 2 TABLETS BY MOUTH EVERY 4 HOURS NEEDED, MAXIMUM DAILY DOSE = TWELVE TABLETS TAKE 1 TO 2 TABLETS BY MOUTH EVERY 4 HOURS NEEDED, MAXIMUM DAILY DOSE = TWELVE TABLETS SOLD: 09/17/2020 [facility] Acetaminophen 325 MG / Hydrocodone Rosanna trate 5 MG Oral Tablet HYDROcodone- acetaminophen (NORCO) 5-325 MG per tablet HYDROcodone-acetaminophen (NORCO) 5- 325 MG per tablet 09/17/2020 12:00:00 AM EDT Oral active Take 1-2 tablets by mouth every 4 (four) hours as needed Max Daily Amount: 12 tablets [facility] Acetaminophen 325 MG / Hydrocodone Bitartrate 5 MG Ora l Tablet Hydrocodone-Acetaminophen 09/17/2020 12:00:00 AM EDT ORAL completed [facility] ([facility] gabapentin 300 MG Oral Capsule Gabapentin 09/17/2020 12:00:00 AM EDT ORAL completed [facility] ([facility] Basaglar Kwikpen Basaglar Kwikpen 09/17/2020 12:00:00 AM EDT completed [facility] ([facility] Acetaminophen 325 MG / Hydrocodone Rosanna trate 10 MG Oral Tablet HYDROcodone- acetaminophen (NORCO 10-325) 10-325 MG per tablet 1 tablet HYDROcodone- acetaminophen (NORCO 10-325) 10-325 MG per tablet 1 tablet 09/16/2020 12:31:46 PM EDT 1 {tbl} Oral aborted 1 tablet , Oral, Every 4 hours PRN, severe pain (7-10), Starting Mon09/16/20 at 1231, For 7 days [facility] [facility] Medication administered onsite Acetaminophen 325 MG / Hydrocodone Rosanna trate 5 MG Oral Tablet HYDROcodone- acetaminophen (NORCO) 5-325 MG per tablet 1 tablet HYDROcodone-acetaminophen (NORCO) 5-325 MG per tablet 1 tablet 09/16/2020 12:31:29 PM EDT 1 { tbl} Oral active 1 tablet, Oral, Every 4 hours PRN, mild pain (1-3), moderate pain (4-6), Starting Mon09/16/20 at 1231, For 7 days
FOR MILD PAIN
[facility] Medication administered onsite pantoprazole 40 MG Delayed Release Oral Tablet pantoprazole (PROTONIX) EC tablet 40 mg pantoprazole (PROTONIX) EC tablet 40 mg 09/16/2020 11:00:00 AM E DT 40 mg Oral completed Gastroesophageal Reflux Diseas e 40 mg, Oral, Once, Indications: Gastroesophageal Reflux Disease, Mon09/16/20 at 1100, For 1 dose [facility] Gastroesophageal Reflux Disease Medication administered onsite Fluoxetine 20 MG Oral Capsule FLUoxetine (PROzac) caps ule 40 mg FLUoxetine (PROzac) capsule 40 mg 09/16/2020 09:00:00 AM EDT 40 mg Oral active 40 mg, Oral, Daily, First dose on Mon09/16/20 at 0900, Post-op [facility] Medication administered onsite POLYETHYLENE GLYCOL 3350 142 MG/ML Oral Solution polyethylene glycol (GLYCOLAX) packet 17 g polyethylene glycol (GLYCOLAX) packet 17 g 09/16/2020 09:00:00 AM EDT 17 g Oral active 17 g, Or al, Daily, First dose on Mon09/16/20 at 0900, Post-op
Start POD #1
[facility] Medication administered onsite Clonidine Hydrochloride 0.1 MG Oral Tablet cloNIDine ( CATAPRES) tablet 0.1 mg cloNIDine (CATAPRES) tablet 0.1 mg 09/16/2020 02:00:00 AM EDT 0.1 mg Oral completed 0.1 mg, Oral, Once, Mon09/16/20 at 0200, For 1 dose [facility] Medication administered onsite Magnesium Hydroxide 80 MG/ML Oral Suspen marco a magnesium hydroxide (MILK OF MAGNESIA) 400 MG/5ML suspension 30 mL magnesium hydroxide (MILK OF MAGNESIA) 4 00 MG/5ML suspension 30 mL 09/16/2020 12:00:00 AM EDT 30 mL Oral active 30 mL, Oral, Daily PRN, constipation, Starting Mon09/16/20 at 0000, Post- op
Start Post-op day #1. Hold for BM
[facility] Medication administered onsite Bisacodyl 10 MG Rectal Suppository bisacodyl (DULCOLAX ) suppository 10 mg bisacodyl (DULCOLAX) suppository 10 mg 09/16/2020 12:00:00 AM EDT 10 mg Rectal active 10 mg, Rectal, Daily PRN, constipation, for constipation unrelieved by miralax/MOM, Starting Mon09/16/20 at 0000, For 4 days, Post- op
For post-op day #1, #3, and #4Hold for BM
[facility] Medication administered onsite varenicline 1 MG Oral Tablet varenicline (CHANTIX) tab let 1 mg varenicline (CHANTIX) tablet 1 mg 09/15/2020 09:00:00 PM EDT 1 mg Oral active 1 mg, Oral, 2 times daily, First dose on Mon09/15/20 at 2100, Post-op
Give with meals and with a full glass of water.
[facility] Medication administered onsite Mirtazapine 30 MG Oral Tablet mirtazapine (REMERON) ta blet 15 mg mirtazapine (REMERON) tablet 15 mg 09/15/2020 09:00:00 PM EDT 15 mg Oral active 15 mg, Oral, Nightly, First dose on Mon09/15/20 at 2100, Post-op [facility] Medication administered onsite Cefazolin 1000 MG Injection ceFAZolin (ANCEF) injectio n 1 g ceFAZolin (ANCEF) injection 1 g 09/15/2020 09:00:00 PM EDT 1 g Intravenous aborted Perioperative Pharmacoprophylaxis 1 g, Intravenous, Ev adán 8 hours (relative), First dose on Mon09/15/20 at 2100, Post-op
Start 4 hours after pre-op dose, then every 8 hours until hemovac removed. Give a minimum of 3 doses.Time pre-op dose hunReconstitute with 10 ml sterile water for injection. Administer IV push over 3 minutes. Use within 1 hour of reconstitution
[facility] Perioperative Pharmacoprophylaxis Medication administered onsite Docusate Sodium 50 MG / sennosides, ALF 8.6 MG Oral Tablet senna-docusate (PERICOLACE) 8.6-50 MG 2 tablet senna-docusate (PERICOLACE) 8.6-50 MG 2 tablet 09/15/2020 09:00:00 PM EDT 2 {tbl} Oral active 2 tablet, Oral, Nightly, First dose on Mon09/15/20 at 2100, Post-op
hold for loose stools
[facility] Medication administered onsite Oxycodone Hydrochloride 10 MG Oral Tablet Oxycodone HC l TABS 10 mg Oxycodone HCl TABS 10 mg 09/15/2020 06:05:30 PM EDT 10 mg Oral aborte d 10 mg, Oral, Every 4 hours PRN, severe pain (7-10), Starting Mon09/15/20 at 1805, For 163 hours, Post-op [facility] Medication administered onsite Cefazolin 1000 MG Injection ceFAZolin (ANCEF) injectio n 1 g ceFAZolin (ANCEF) injection 1 g 09/15/2020 04:00:00 PM EDT 1 g Intravenous aborted Perioperative Pharmacoprophylaxis 1 g, Intravenous, Ev adán 8 hours (relative), First dose on Mon09/15/20 at 1600, Post-op
Start 4 hours after pre-op dose, then every 8 hours until hemovac removed. Give a minimum of 3 doses.Time pre-op dose hunReconstitute with 10 ml sterile water for injection. Administer IV push over 3 minutes. Use within 1 hour of reconstitution
[facility] Perioperative Pharmacoprophylaxis Medication administered onsite gabapentin 300 MG Oral Capsule gabapentin (NEURONTIN) capsule 300 mg gabapentin (NEURONTIN) capsule 300 mg 09/15/2020 03:00:00 PM EDT 300 mg Oral active 300 mg, Oral, 3 times daily, First dose on Mon09/15/20 at 1500, Post-op [facility] Medication administered onsite Acetaminophen 500 MG Oral Tablet acetaminophen (TYLENO L) tablet 1,000 mg acetaminophen (TYLENOL) tablet 1,000 mg 09/15/2020 02:00:00 PM EDT 1000 mg Oral active 1,000 mg, Oral , Every 6 hours (relative), First dose on Mon09/15/20 at 1400, Post-op [facility] Medication administered onsite sodium chloride 0.9% (NS) infusion 9538-4959-50 09/15/2020 02:00:00 P M EDT Intravenous active at 100 mL/hr, Intravenous, Continuous, Starting Mon09/15/20 at 1400, Post-op [facility] Medication administered onsite 2 ML Metoclopramide 5 MG/ML Prefilled Sy ringe metoclopramide (REGLAN) injection 10 mg metoclopramide (REGLAN) injection 10 mg 09/15/2020 01:41:33 PM E DT 10 mg Intravenous completed 10 mg, I ntravenous, Every 6 hours PRN, nausea not relieved by Zofran, Starting Mon09/15/20 at 1341, For 24 hours, Post-op
If nausea not relieved by Zofran; Renal dosing per pharmacy
[facility] Medication administered onsite ondansetron (ZOFRAN) injection 4 mg [id number] 09/15/2020 01:41:3 3 PM EDT 4 mg Intravenous aborted 4 mg, In travenous, Every 4 hours PRN, nausea, vomiting, Starting Mon09/15/20 at 1341, Post-op
If unable to take PO
[facility] Medication administered onsite Mineral Oil 1000 MG/ML Enema mineral oil enema 1 enema mineral oil enema 1 enema 09/15/2020 01:41:33 PM EDT 1 {enema} Rectal active 1 enema, Rectal, Daily PRN, constipation, if unrelieved by dulcolax, Starting Mon09/15/20 at 1341, Post-op
hold for loose stools
[facility] Medication administered onsite Ondansetron 4 MG Disintegrating Oral Tab let ondansetron (ZOFRAN-ODT) disintegrating tablet 4 mg ondansetron (ZOFRAN-ODT) disintegrating tablet 4 mg 09/15/2020 01:41:33 PM EDT 4 mg Oral active 4 mg, Oral, Every 4 hours PRN, nausea, vomiting, Starting Mon09/15/20 at 1341, Post-op [facility] Medication administered onsite Oxycodone Hydrochloride 5 MG Oral Tablet oxyCODONE (ROXICODONE) immediate release tablet 5 mg oxyCODONE (ROXICODONE) immediate release tablet 5 mg 09/15/2020 01:41:33 PM EDT 5 mg Oral aborted 5 mg, Oral, Every 4 hours PRN, severe pain (7-10), Starting Mon09/15/20 at 1341, For 7 days, Post-op [facility] Medication administered onsite fentaNYL Citrate (PF) (SUBLIMAZE) injection 25 mcg [id number] 09/15/2020 01:41:33 PM EDT 25 ug Intravenous active 25 mcg, Intravenous, Every 3 hours PRN, for severe breakthrough pain (7-10) if oral opioid ineffective, Starting Mon09/15/20 at 1341, For 7 days, Post-op [facility] Medication administered onsite Methocarbamol 500 MG Oral Tablet methocarbamol (ROBAXI N) tablet 500 mg methocarbamol (ROBAXIN) tablet 500 mg 09/15/2020 01:41:33 PM EDT 50 0 mg Oral active 500 mg, Oral, 4 times daily PRN, muscle spasms, Starting Mon09/15/20 at 1341, Post-op [facility] Medication administered onsite Insulin Glargine 100 UNT/ML Injectable S olution [Lantus] insulin glargine (LANTUS) injection 20 Units insulin glargine (LANTUS) injection 20 Units 09/15/2020 01:00:00 PM EDT 20 U Subcutaneous active 20 Units, Subcutaneous, Daily (Lantus), First dose on Mon09/15/20 at 1300, PACU & Post- op
Basal Insulin (Lantus) Adjustments based on AM Blood GlucoseBlood GlucoseAdjustmentLess than 70 mg/dl Nursing to initiate hypoglycemia [id number] to 100 mg/dl Pharmacy to decrease total daily d ose by 20%101 to 200 mg/dl No Change
[facility] Medication administered onsite Insulin Lispro 100 UNT/ML Injectable Kenna ution insulin lispro (HumaLOG) injection 1-12 Units insulin lispro (HumaLOG) injection 1-12 Units 09/15/20 01:00:00 PM EDT Subcutaneous active 1-1 2 Units, Subcutaneous, MEALSS, First dose on Mon09/15/20 at 1300, PACU & Post-op
AVERAGE 6 Units Nutritional and Correction Insulin ScaleBlood Glucose (mg/dl) <70 start hypoglycemia protocolGlucoseEats >=50% Eats <50%Eats Nothing (mg/dl) of meal of mealor [id number] units 2 units 0 [id number]- 1706 units 3 units 0 [id number] units 4 units 1 [id number]- 2708 units 5 units 2 [id number] units 6 units 3 - 30137 units 7 units 4 -44895 units 8 units 5 units>420 call MD12 units 9 units 6 unitsTest glucose within 30 minutes of insulin administration.Administer insulin within 15 minutes (before or after) of the patient starting to eat.For patients that are NPO, use theNPO (correction) scale to cover POC glucose at 08:00, 12:00, 17:00.
[facility] Medication administered onsite fentaNYL Citrate (PF) (SUBLIMAZE) injection 25 mcg [id number] -32 09/15/2020 11:16:33 AM EDT 25 ug Intravenous aborted 25 mcg, Intravenous, Every 5 min PRN, moderate pain (4-6), Starting Mon09/15/20 at 1116, For 12 doses, PACU (only) [facility] Medication administered onsite HYDROmorphone (DILAUDID) injection 0.5 mg [id number] 09/15/2020 11:16:33 AM EDT 0.5 mg Intravenous aborted 0.5 mg, Intravenous, Every 5 min PRN, severe pain (7-10), Starting Mon09/15/20 at 1116, For 5 doses, PACU (only) [facility] Medication administered onsite Glucose 254 MG/ML Oral Solution [Dex4] glucose (DEX4) liquid 15 g glucose (DEX4) liquid 15 g 09/15/2020 06:20:59 AM EDT 15 g Oral compl eted 15 g, Oral, As needed, low blood sugar, Starting Mon09/15/20 at 0620, For 2 doses, Pre-op
Per policy glucose under 70
[facility] Medication administered onsite Acetaminophen 500 MG Oral Tablet acetaminophen (TYLENO L) tablet 1,000 mg acetaminophen (TYLENOL) tablet 1,000 mg 09/15/2020 06:00:00 AM EDT 1000 mg Oral completed Chronic low back pain, unspecified back pain laterality, unspecified whether sciatica presentSpondylolisthesis of lumbosacral regionHerniated nucleus pulposus, L5-S1 1,000 mg, Oral , abstract checker, Mon09/15/20 at 0600, For 1 dose, Pre-op
To be administered just prior to to transport to operating room
[facility] Chronic low back pain, unspecified back pain laterality, unspecified whether sciatica present Spondylolisthesis of lumbosacral region Herniated nucleus pulposus, L5-S1 Medication administered onsite chlorhexidine gluconate 1.2 MG/ML Mouthw adri chlorhexidine (PERIDEX) 0.12 % oral solution 15 mL chlorhexidine (PERIDEX) 0.12 % oral solution 15 mL 06:00:00 AM EDT 15 mL Mouth/Throat completed C hronic low back pain, unspecified back pain laterality, unspecified whether sciatica presentSpondylolisthesis of lumbosacral regionHerniated nucleus pulposus, L5-S1 15 mL, Mouth/Throat, abstract checker, Mon at 0600, For 1 dose, Pre- op
Swish for 30 seconds and spit in pre-induction unit
[facility] Chronic low back pain, unspecified back pain laterality, unspecified whether sciatica present Spondylolisthesis of lumbosacral region Herniated nucleus pulposus, L5-S1 Medication administered onsite 2 ML Metoclopramide 5 MG/ML Prefilled Sy ringe metoclopramide (REGLAN) injection 10 mg metoclopramide (REGLAN) injection 10 mg 09/15/2020 06:00:00 AM E DT 10 mg Intravenous completed Chronic low nikki k pain, unspecified back pain laterality, unspecified whether sciatica presentSpondylolisthesis of lumbosacral regionHerniated nucleus pulposus, L5-S1 10 mg, Intrav enous, abstract checker, Mon09/15/20 at 0600, For 1 dose, Pre-op
To be administered just prior to to transport to operating room
[facility] Chronic low back pain, unspecified back pain laterality, unspecified whether sciatica present Spondylolisthesis of lumbosacral region Herniated nucleus pulposus, L5-S1 Medication administered onsite ondansetron (ZOFRAN) injection 4 mg [id number] 09/15/2020 06:00:0 0 AM EDT 4 mg Intravenous completed Chronic low nikki k pain, unspecified back pain laterality, unspecified whether sciatica presentSpondylolisthesis of lumbosacral regionHerniated nucleus pulposus, L5-S1 4 mg, Intrave nous, abstract checker, Mon09/15/20 at 0600, For 1 dose, Pre-op
To be administered just prior to to transport to operating room
[facility] Chronic low back pain, unspecified back pain laterality, unspecified whether sciatica present Spondylolisthesis of lumbosacral region Herniated nucleus pulposus, L5-S1 Medication administered onsite Calcium Chloride 0.001 MEQ/ML / Glucose 50 MG/ML / Potassium Chloride 0.004 MEQ/ML / Sodium Chloride 0.103 MEQ/ML / Sodium Lactate 0.028 MEQ/ML Injectable Solution dextrose 5 % in lactated ringers infusion dextrose 5 % in lactated ringers infusion 09/15/2020 06:00:00 AM EDT 100 mL/h Intravenous aborted at 100 mL/hr, 100 mL/hr, Int ravenous, Continuous, Starting Mon09/15/20 at 0600, Pre-op [facility] Medication administered onsite 1 mg 07/16/2020 12:00:00 AM EDT tablet 56 TAKE ONE TABLET BY MOUTH TWICE A DAY TAKE ONE TABLET BY MOUTH TWICE A DAY SOLD: 07/16/2020 [facility] 100 unit/mL (3 mL) 07/01/2020 12:00:00 AM EDT insulin pen 15 INJECT 25 UNITS SUBCUTANEOUSLY TWO TIMES A DAY , MAXIMUM DAILY DOSE = 50 UNITS INJECT 25 UNITS SUBCUTANEOUSLY TWO TIMES A DAY , MAXIMUM DAILY DOSE = 50 UNITS SOLD: 07/01/2020 [facility] 100 unit/mL (3 mL) 07/01/2020 12:00:00 AM EDT insulin pen 15 INJECT 25 UNITS SUBCUTANEOUSLY TWO TIMES A DAY , MAXIMUM DAILY DOSE = 50 UNITS INJECT 25 UNITS SUBCUTANEOUSLY TWO TIMES A DAY , MAXIMUM DAILY DOSE = 50 UNITS SOLD: 08/18/2020 [facility] 600 mg 06/20/2020 12:00:00 AM EDT tablet 90 TAKE ONE TABLET BY MOUTH THREE TIMES A DAY WITH GABAPENTIN 300 MG ( TOTAL 900MG THREE TIMES A DAY) TAKE ONE TABLET BY MOUTH THREE TIMES A DAY WITH GABAPENTIN 300 MG ( TOTAL 900MG THREE TIMES A DAY) SOLD: 06/21/2020 [facility] 600 mg 06/20/2020 12:00:00 AM EDT tablet 90 TAKE ONE TABLET BY MOUTH THREE TIMES A DAY WITH GABAPENTIN 300 MG ( TOTAL 900MG THREE TIMES A DAY) TAKE ONE TABLET BY MOUTH THREE TIMES A DAY WITH GABAPENTIN 300 MG ( TOTAL 900MG THREE TIMES A DAY) SOLD: 08/18/2020 [facility] 600 mg 06/20/2020 12:00:00 AM EDT tablet 90 TAKE ONE TABLET BY MOUTH THREE TIMES A DAY WITH GABAPENTIN 300 MG ( TOTAL 900MG THREE TIMES A DAY) TAKE ONE TABLET BY MOUTH THREE TIMES A DAY WITH GABAPENTIN 300 MG ( TOTAL 900MG THREE TIMES A DAY) SOLD: 07/18/2020 [facility] 300 mg 06/19/2020 12:00:00 AM EDT capsule 90 TAKE ONE CAPSULE BY MOUTH THREE TIMES A DAY (WITH 600MG TO TOTAL 900MG THREE TIMES A DAY) TAKE ONE CAPSULE BY MOUTH THREE TIMES A DAY (WITH 600MG TO TOTAL 900MG THREE TIMES A DAY) SOLD: 06/21/2020 [facility] 300 mg 06/19/2020 12:00:00 AM EDT capsule 90 TAKE ONE CAPSULE BY MOUTH THREE TIMES A DAY (WITH 600MG TO TOTAL 900MG THREE TIMES A DAY) TAKE ONE CAPSULE BY MOUTH THREE TIMES A DAY (WITH 600MG TO TOTAL 900MG THREE TIMES A DAY) SOLD: 10/26/2020 [facility] 300 mg 06/19/2020 12:00:00 AM EDT capsule 90 TAKE ONE CAPSULE BY MOUTH THREE TIMES A DAY (WITH 600MG TO TOTAL 900MG THREE TIMES A DAY) TAKE ONE CAPSULE BY MOUTH THREE TIMES A DAY (WITH 600MG TO TOTAL 900MG THREE TIMES A DAY) SOLD: 08/18/2020 [facility] 300 mg 06/19/2020 12:00:00 AM EDT capsule 90 TAKE ONE CAPSULE BY MOUTH THREE TIMES A DAY (WITH 600MG TO TOTAL 900MG THREE TIMES A DAY) TAKE ONE CAPSULE BY MOUTH THREE TIMES A DAY (WITH 600MG TO TOTAL 900MG THREE TIMES A DAY) SOLD: 07/18/2020 [facility] 100 unit/mL (3 mL) 05/25/2020 12:00:00 AM EDT insulin pen 15 INJECT 25 UNITS UNDER THE SKIN TWO TIMES A DAY, MAXIMUM DAILY DOSE = 50 UNITS INJECT 25 UNITS UNDER THE SKIN TWO TIMES A DAY, MAXIMUM DAILY DOSE = 50 UNITS SOLD: 05/25/2020 [facility] 4 mg 05/07/2020 12:00:00 AM EDT tablet 30 TAKE ONE TABLET BY MOUTH EVERY NIGHT AT BEDTIME TAKE ONE TABLET BY MOUTH EVERY NIGHT AT BEDTIME SOLD: 05/08/2020 [facility] 4 mg 05/07/2020 12:00:00 AM EDT tablet 30 TAKE ONE TABLET BY MOUTH EVERY NIGHT AT BEDTIME TAKE ONE TABLET BY MOUTH EVERY NIGHT AT BEDTIME SOLD: 06/14/2020 [facility] 4 mg 05/07/2020 12:00:00 AM EDT tablet 30 TAKE ONE TABLET BY MOUTH EVERY NIGHT AT BEDTIME TAKE ONE TABLET BY MOUTH EVERY NIGHT AT BEDTIME SOLD: 08/18/2020 [facility] 100 unit/mL (3 mL) 04/14/2020 12:00:00 AM EDT insulin pen 15 INJECT 25 UNITS SUBCUTANEOUSLY TWO TIMES A DAY INJECT 25 UNITS SUBCUTANEOUSLY TWO TIMES A DAY SOLD: 04/14/2020 [facility] 15 mg 03/31/2020 12:00:00 AM EDT tablet 30 TAKE ONE TABLET BY MOUTH AT BEDTIME TAKE ONE TABLET BY MOUTH AT BEDTIME SOLD: 08/18/2020 [facility] 40 mg 03/31/2020 12:00:00 AM EDT capsule 30 TAKE ONE CAPSULE BY MOUTH EVERY DAY TAKE ONE CAPSULE BY MOUTH EVERY DAY SOLD: 10/31/2020 [facility] 15 mg 03/31/2020 12:00:00 AM EDT tablet 30 TAKE ONE TABLET BY MOUTH AT BEDTIME TAKE ONE TABLET BY MOUTH AT BEDTIME SOLD: 05/08/2020 [facility] 40 mg 03/31/2020 12:00:00 AM EDT capsule 30 TAKE ONE CAPSULE BY MOUTH EVERY DAY TAKE ONE CAPSULE BY MOUTH EVERY DAY SOLD: 05/08/2020 [facility] 40 mg 03/31/2020 12:00:00 AM EDT capsule 30 TAKE ONE CAPSULE BY MOUTH EVERY DAY TAKE ONE CAPSULE BY MOUTH EVERY DAY SOLD: 08/18/2020 [facility] 15 mg 03/31/2020 12:00:00 AM EDT tablet 30 TAKE ONE TABLET BY MOUTH AT BEDTIME TAKE ONE TABLET BY MOUTH AT BEDTIME SOLD: 03/31/2020 [facility] 40 mg 03/31/2020 12:00:00 AM EDT capsule 30 TAKE ONE CAPSULE BY MOUTH EVERY DAY TAKE ONE CAPSULE BY MOUTH EVERY DAY SOLD: 06/14/2020 [facility] 15 mg 03/31/2020 12:00:00 AM EDT tablet 30 TAKE ONE TABLET BY MOUTH AT BEDTIME TAKE ONE TABLET BY MOUTH AT BEDTIME SOLD: 10/31/2020 [facility] 15 mg 03/31/2020 12:00:00 AM EDT tablet 30 TAKE ONE TABLET BY MOUTH AT BEDTIME TAKE ONE TABLET BY MOUTH AT BEDTIME SOLD: 06/14/2020 [facility] 40 mg 03/31/2020 12:00:00 AM EDT capsule 30 TAKE ONE CAPSULE BY MOUTH EVERY DAY TAKE ONE CAPSULE BY MOUTH EVERY DAY SOLD: 03/31/2020 [facility] 0.5 mL 31 gauge x 5/16" 03/16/2020 12:00:00 AM EDT syringe 200 USE DIRECTED 5 TIMES A DAY USE DIRECTED 5 TIMES A DAY SOLD: 03/17/2020 [facility] BD Insulin Syringe Ultrafine/0.5ML/31G X 5/16" 03/16/2020 12:00:00 AM EDT active [facility] ([facility]) 100 unit/mL (3 mL) 03/04/2020 12:00:00 AM EDT insulin pen 15 INJECT 25 UNITS SUBCUTANEOUSLY TWO TIMES A DAY MAXIMUM DAILY DOSE = 50 UNITS INJECT 25 UNITS SUBCUTANEOUSLY TWO TIMES A DAY MAXIMUM DAILY DOSE = 50 UNITS SOLD: 03/04/2020 [facility] 1 mg 02/28/2020 12:00:00 AM EDT tablet 60 TAKE ONE TABLET BY MOUTH TWICE A DAY TAKE ONE TABLET BY MOUTH TWICE A DAY SOLD: 02/29/2020 [facility] 40 mg 02/28/2020 12:00:00 AM EDT capsule 30 TAKE ONE CAPSULE BY MOUTH EVERY DAY TAKE ONE CAPSULE BY MOUTH EVERY DAY SOLD: 02/29/2020 [facility] 100 unit/mL (3 mL) 01/21/2020 12:00:00 AM EST insulin pen 15 INJECT 25 UNITS UNDER THE SKIN TWO TIMES A DAY INJECT 25 UNITS UNDER THE SKIN TWO TIMES A DAY SOLD: 01/21/2020 [facility] 100 unit/mL 01/14/2020 12:00:00 AM EST solution 10 USE DIRECTED PER SCALE MAXIMUM DAILY DOSE = TO INJECT 20 UNITS SUBCUTANEOUSLY USE DIRECTED PER SCALE MAXIMUM DAILY DOSE = TO INJECT 20 UNITS SUBCUTANEOUSLY SOLD: 01/15/2020 [facility] 40 mg 01/13/2020 12:00:00 AM EST capsule 30 TAKE ONE CAPSULE BY MOUTH EVERY DAY TAKE ONE CAPSULE BY MOUTH EVERY DAY SOLD: 01/15/2020 [facility] 15 mg 01/13/2020 12:00:00 AM EST tablet 30 TAKE ONE TABLET BY MOUTH EVERY DAY AT BEDTIME TAKE ONE TABLET BY MOUTH EVERY DAY AT BEDTIME SOLD: 02/28/2020 [facility] 15 mg 01/13/2020 12:00:00 AM EST tablet 30 TAKE ONE TABLET BY MOUTH EVERY DAY AT BEDTIME TAKE ONE TABLET BY MOUTH EVERY DAY AT BEDTIME SOLD: 01/15/2020 [facility] Mirtazapine 15 MG Oral Tablet Mirtazapine 01/13/2020 12:00:00 AM EST ORAL active [facility] ([facility] Lidocaine 40 MG/ML Topical Cream Lidocaine 12/24/2019 12:00:00 AM EST active [facility] ([facility] Menthol 0.04 MG/MG Topical Gel [Biofreeze] Biofreeze 12/24 12:00:00 AM EST active [facility] ( [facility]) Acetaminophen 325 MG / Hydrocodone Bitartrate 5 MG Oral Tabl et Anexsia 12/24/2019 12:00:00 AM EST active [facility] ([facility] ) 4 % 12/24/2019 12:00:00 AM EST cream 30 APPLY TOPICALLY TWO TIMES A DAY APPLY TOPICALLY TWO TIMES A DAY SOLD: 12/25/2019 [facility] 5-325 mg 12/24/2019 12:00:00 AM EST tablet 12 TAKE ONE TABLET BY MOUTH EVERY 6 HOURS NEEDED SEVERE PAIN MAXIMUM DAILY DOSE = FOUR TABLETS TAKE ONE TABLET BY MOUTH EVERY 6 HOURS NEEDED SEVERE PAIN MAXIMUM DAILY DOSE = FOUR TABLETS SOLD: 12/25/2019 [facility] 100 unit/mL (3 mL) 12/12/2019 12:00:00 AM EST insulin pen 15 INJECT 15 UNITS EVERY MORNING AND EVERY AT BEDTIME INJECT 15 UNITS EVERY MORNING AND EVERY AT BEDTIME SOLD: 12/12/2019 [facility] 500 mg 12/04/2019 12:00:00 AM EST tablet 60 TAKE TWO TABLETS BY MOUTH EVERY DAY NEEDED TAKE TWO TABLETS BY MOUTH EVERY DAY NEEDED SOLD: 03/27/2020 [facility] 500 mg 12/04/2019 12:00:00 AM EST tablet 60 TAKE TWO TABLETS BY MOUTH EVERY DAY NEEDED TAKE TWO TABLETS BY MOUTH EVERY DAY NEEDED SOLD: 02/18/2020 [facility] 500 mg 12/04/2019 12:00:00 AM EST tablet 60 TAKE TWO TABLETS BY MOUTH EVERY DAY NEEDED TAKE TWO TABLETS BY MOUTH EVERY DAY NEEDED SOLD: 05/08/2020 [facility] 500 mg 12/04/2019 12:00:00 AM EST tablet 60 TAKE TWO TABLETS BY MOUTH EVERY DAY NEEDED TAKE TWO TABLETS BY MOUTH EVERY DAY NEEDED SOLD: 06/14/2020 [facility] 500 mg 12/04/2019 12:00:00 AM EST tablet 60 TAKE TWO TABLETS BY MOUTH EVERY DAY NEEDED TAKE TWO TABLETS BY MOUTH EVERY DAY NEEDED SOLD: 07/18/2020 [facility] 500 mg 12/04/2019 12:00:00 AM EST tablet 60 TAKE TWO TABLETS BY MOUTH EVERY DAY NEEDED TAKE TWO TABLETS BY MOUTH EVERY DAY NEEDED SOLD: 08/18/2020 [facility] 500 mg 12/04/2019 12:00:00 AM EST tablet 60 TAKE TWO TABLETS BY MOUTH EVERY DAY NEEDED TAKE TWO TABLETS BY MOUTH EVERY DAY NEEDED SOLD: 10/26/2020 [facility] 500 mg 12/04/2019 12:00:00 AM EST tablet 60 TAKE TWO TABLETS BY MOUTH EVERY DAY NEEDED TAKE TWO TABLETS BY MOUTH EVERY DAY NEEDED SOLD: 01/12/2020 [facility] 500 mg 12/04/2019 12:00:00 AM EST tablet 60 TAKE TWO TABLETS BY MOUTH EVERY DAY NEEDED TAKE TWO TABLETS BY MOUTH EVERY DAY NEEDED SOLD: 09/30/2020 [facility] Methocarbamol 500 MG Oral Tablet Methocarbamol 12/04/2019 12:00:00 AM EST active [facility] ([facility]) 40 mg 12/04/2019 12:00:00 AM EST capsule 30 TAKE ONE CAPSULE BY MOUTH EVERY DAY TAKE ONE CAPSULE BY MOUTH EVERY DAY SOLD: 12/04/2019 [facility] 500 mg 12/04/2019 12:00:00 AM EST tablet 60 TAKE TWO TABLETS BY MOUTH EVERY DAY NEEDED TAKE TWO TABLETS BY MOUTH EVERY DAY NEEDED SOLD: 12/04/2019 [facility] Fluoxetine 40 MG Oral Capsule Fluoxetine HCL 12/03/2019 12:00:[address] ORAL active [facility] ([facility] +++No Meds Til Seen+++ 11/22/2019 12:00:00 AM EST completed [facility] ([facility]) 1 mg 11/22/2019 12:00:00 AM EST tablet 60 TAKE ONE TABLET BY MOUTH TWICE A DAY TAKE ONE TABLET BY MOUTH TWICE A DAY SOLD: 11/23/2019 [facility] 1 mg 11/22/2019 12:00:00 AM EST tablet 60 TAKE ONE TABLET BY MOUTH TWICE A DAY TAKE ONE TABLET BY MOUTH TWICE A DAY SOLD: 12/30/2019 [facility] varenicline 1 MG Oral Tablet [Chantix] Chantix 11/21/2019 12:00:00 AM EST ORAL active [facility] ([facility] varenicline 0.5 MG Oral Tablet [Chantix] Chantix 10/22/2019 12:00: 00 AM EST completed [facility] ([facility] 0.5 mg (11)- 1 mg (42) 10/22/2019 12:00:00 AM EST tablets,do se pack 53 TAKE DIRECTED FOR 4 WEEKS TAKE DIRECTED FOR 4 WEEKS SOLD: 10/22/2019 [facility] 100 unit/mL (3 mL) 10/16/2019 12:00:00 AM EST insulin pen 15 INJECT 15 UNITS IN THE MORNING AND AT BEDTIME DAILY INJECT 15 UNITS IN THE MORNING AND AT BEDTIME DAILY SOLD: 10/19/2019 [facility] BLOOD SUGAR DIAGNOSTIC 10/16/2019 12:00:00 AM EST strip 600 USE DIRECTED UP TO 6 TIMES DAILY USE DIRECTED UP TO 6 TIMES DAILY SOLD: 10/19/2019 [facility] BLOOD SUGAR DIAGNOSTIC 10/16/2019 12:00:00 AM EST strip 600 USE DIRECTED UP TO 6 TIMES DAILY USE DIRECTED UP TO 6 TIMES DAILY SOLD: 01/15/2020 [facility] 40 mg 09/06/2019 12:00:00 AM EDT capsule 30 TAKE ONE CAPSULE BY MOUTH EVERY DAY TAKE ONE CAPSULE BY MOUTH EVERY DAY SOLD: 10/19/2019 [facility] Fluoxetine 40 MG Oral Capsule [Prozac] Prozac 09/05/2019 12:00:00 AM EDT ORAL completed [facility] ([facility] 4 mg 08/22/2019 12:00:00 AM EDT tablet 30 TAKE ONE TABLET BY MOUTH AT BEDTIME TAKE ONE TABLET BY MOUTH AT BEDTIME SOLD: 01/12/2020 [facility] 4 mg 08/22/2019 12:00:00 AM EDT tablet 30 TAKE ONE TABLET BY MOUTH AT BEDTIME TAKE ONE TABLET BY MOUTH AT BEDTIME SOLD: 03/27/2020 [facility] 4 mg 08/22/2019 12:00:00 AM EDT tablet 30 TAKE ONE TABLET BY MOUTH AT BEDTIME TAKE ONE TABLET BY MOUTH AT BEDTIME SOLD: 12/04/2019 [facility] 4 mg 08/22/2019 12:00:00 AM EDT tablet 30 TAKE ONE TABLET BY MOUTH AT BEDTIME TAKE ONE TABLET BY MOUTH AT BEDTIME SOLD: 02/18/2020 [facility] 15 mg 08/22/2019 12:00:00 AM EDT tablet 30 TAKE ONE TABLET BY MOUTH EVERY DAY AT BEDTIME TAKE ONE TABLET BY MOUTH EVERY DAY AT BEDTIME SOLD: 12/04/2019 [facility] 300 mg 08/09/2019 12:00:00 AM EDT capsule 90 TAKE ONE CAPSULE BY MOUTH THREE TIMES A DAY WITH 600MG FOR A TOTAL OF 900MG TAKE ONE CAPSULE BY MOUTH THREE TIMES A DAY WITH 600MG FOR A TOTAL OF 900MG SOLD: 02/18/2020 [facility] 300 mg 08/09/2019 12:00:00 AM EDT capsule 90 TAKE ONE CAPSULE BY MOUTH THREE TIMES A DAY WITH 600MG FOR A TOTAL OF 900MG TAKE ONE CAPSULE BY MOUTH THREE TIMES A DAY WITH 600MG FOR A TOTAL OF 900MG SOLD: 12/04/2019 [facility] 600 mg 08/09/2019 12:00:00 AM EDT tablet 90 TAKE ONE TABLET BY MOUTH THREE TIMES A DAY WITH 300MG FOR A TOTAL OF 900MG TAKE ONE TABLET BY MOUTH THREE TIMES A DAY WITH 300MG FOR A TOTAL OF 900MG SOLD: 11/05/2019 [facility] 300 mg 08/09/2019 12:00:00 AM EDT capsule 90 TAKE ONE CAPSULE BY MOUTH THREE TIMES A DAY WITH 600MG FOR A TOTAL OF 900MG TAKE ONE CAPSULE BY MOUTH THREE TIMES A DAY WITH 600MG FOR A TOTAL OF 900MG SOLD: 01/12/2020 [facility] 300 mg 08/09/2019 12:00:00 AM EDT capsule 90 TAKE ONE CAPSULE BY MOUTH THREE TIMES A DAY WITH 600MG FOR A TOTAL OF 900MG TAKE ONE CAPSULE BY MOUTH THREE TIMES A DAY WITH 600MG FOR A TOTAL OF 900MG SOLD: 11/05/2019 [facility] 600 mg 08/09/2019 12:00:00 AM EDT tablet 90 TAKE ONE TABLET BY MOUTH THREE TIMES A DAY WITH 300MG FOR A TOTAL OF 900MG TAKE ONE TABLET BY MOUTH THREE TIMES A DAY WITH 300MG FOR A TOTAL OF 900MG SOLD: 01/12/2020 [facility] 600 mg 08/09/2019 12:00:00 AM EDT tablet 90 TAKE ONE TABLET BY MOUTH THREE TIMES A DAY WITH 300MG FOR A TOTAL OF 900MG TAKE ONE TABLET BY MOUTH THREE TIMES A DAY WITH 300MG FOR A TOTAL OF 900MG SOLD: 12/04/2019 [facility] 600 mg 08/09/2019 12:00:00 AM EDT tablet 90 TAKE ONE TABLET BY MOUTH THREE TIMES A DAY WITH 300MG FOR A TOTAL OF 900MG TAKE ONE TABLET BY MOUTH THREE TIMES A DAY WITH 300MG FOR A TOTAL OF 900MG SOLD: 02/18/2020 [facility] 500 mg 11/28/2018 12:00:00 AM EST tablet 60 TAKE TWO TABLETS BY MOUTH EVERY DAY NEEDED TAKE TWO TABLETS BY MOUTH EVERY DAY NEEDED SOLD: 11/05/2019 [facility] meloxicam 15 MG Oral Tablet meloxicam 15 mg tablet meloxicam 15 mg ta blet completed meloxicam 15 MG Oral Tablet ALIYAH ([facility]) meloxicam 15 MG Oral Tablet meloxicam (MOBIC) 15 MG ta blet meloxicam (MOBIC) 15 MG tablet 15 mg Oral aborted Take 15 mg by mouth daily [facility] Acetaminophen 500 MG Oral Tablet acetaminophen (TYLENO L) 500 MG tablet acetaminophen (TYLENOL) 500 MG tablet 1000 mg Oral aborted Take 1,000 mg by mouth every 6 (six) hours as needed for pain [facility] Insurance Providers Payer name Policy type / Coverage type Policy ID Covered constitution party ID Covered constitution party's relationship to jose Policy Jose Plan Information [facility] COMM[facility]ITY PLAN [facility] [id number] [facility] [id number] Self [id number] A [id number] MEDICAID GME [id number] [facility](MCAID) O [id number] S [id number] [facility] HEA [id number] S [id number] [facility] Comm Plan Medicaid F [id number] SELF [id number] [facility] HEA [id number] S [id number] [facility] Comm Plan Medicaid F [id number] SELF [id number] [facility] MEDICAID [id number] [facility] MEDICAID [id number] Jaycee [id number] INSURANCE COVID-19 COVID Jaycee C OVID INSURANCE COVID-19 [id number] Community Plan Commercial [id number] Self [id number] [facility] Community Plan Commercial [id number] Self [id number] Community Plan Commercial [id number] Self [id number] [facility] Community Plan Commercial [id number] Self [id number] [facility] Community Plan Commercial [id number] Self [id number] [facility] Community Plan Commercial [id number] Self [id number] [facility] MEDICAID PI PI Uhc Community Plan Commercial [id number] Self [id number] [facility] Community Plan Commercial [id number] Self [id number] [facility] Community Plan Commercial [id number] Self [id number] [facility] Community Plan Commercial [id number] Self [id number] [facility] Comm Plan Medicaid F [id number] SELF [id number] c Community Plan Commercial [id number] Self [id number] [facility] Community Plan Commercial [id number] Self [id number] c Community Plan Commercial [id number] Self [id number] c Community Plan Commercial [id number] Self [id number] [facility] COMMUNITY PLAN MCDHMO [id number] SP [id number] [facility] (H[facility]) [id number] Self [id number] [facility] [employer] (HMO) [id number] Self [id number] HMO BLUE [id number] SP [id number] Problems, Conditions, and Diagnoses Code Display Name Description Problem Type Effective Dates Data Source(s) E11.9 Diabetes mellitus Diabetes mellitus [id number] 09/15/2020 12:00:00 AM EDT [facility] M43.17 Spondylolisthesis of lumbosacral region Spondylolisthesis of lumbosacral region [id number] 09/15/2020 12:00:00 AM EDT [facility] M51.27 Herniated nucleus pulposus, L5-S1 Herniated nucl eus pulposus, L5-S1 [id number] 09/15/2020 12:00:00 AM EDT [facility] M54.5 Low back pain Low back pain [id number] 09/07/2020 12:00:00 AM EDT [facility] [id number] Type 2 diabetes mellitus Type 2 diabetes mellitus Prob jim 01/02/2020 12:00:00 AM EST [facility] ([facility] ) G89.29 Other chronic pain Other chronic pain Diagnosis 05:24:00 AM EDT [facility] M54.5 Low back pain Low back pain Diagnosis 09/15/2020 05:24:00 AM EDT [facility] M43.17 Spondylolisthesis, lumbosacral region Sp ondylolisthesis, lumbosacral region Diagnosis 09/15/2020 05:24:00 AM EDT [facility] 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, lumbosacral region Other intervertebral disc displacement, Diagnosis 09/15/2020 05:24:00 AM EDT [facility] U07.1 COVID-19 COVID-19 Diagnosis 09/10/2020 11:13:22 AM ED T [facility] Surgeries/Procedures Procedure Description Date Indications Data Source(s) AUTOGRAFT SPINE SURGERY BICORT/TRICORT [employer]P INC 020 12:00:00 AM EST [facility] ([facility]) Osteotomy Spine Posterior Or Posterolateral 3 Col, Lumbar 11/06/2020 12:00:00 AM EST [facility] ([facility]) Arthrodesis,Combined Posterior Or Posterolateral Tech 11/06/2020 12:00:00 AM EST [facility] ([facility]) ARTHDSIS POST/POSTERLATRL/POSTINTRBDYADL SPC/SEG 11/06 12:00:00 AM EST [facility] ([facility]) Spinal Instrumentation Posterior Segmental, 3-6 Segments 11/06/2020 12:00:00 AM EST [facility]) PELVIC FIXATION OTHER THAN SACRUM 11/06/2020 12:00:00 AM EST [facility] ([facility]) Insertion Interbody Biomechanical Device; Each Interspace 11/06/2020 12:00:00 AM EST [facility] ([facility]) GLUC BLD GLUC MNTR DEV CLEARED FDA SPEC HOME USE POCT GLUCOSE Routine 09/17/2020 9:42 AM EDT 09/17/2020 01:42:00 PM EDT [facility] GLUC BLD GLUC MNTR DEV CLEARED FDA SPEC HOME USE POCT GLUCOSE Routine 09/16/2020 5:28 PM EDT 09/16/2020 09:28:00 PM EDT [facility] GLUC BLD GLUC MNTR DEV CLEARED FDA SPEC HOME USE POCT GLUCOSE Routine 09/16/2020 2:22 PM EDT 09/16/2020 06:22:00 PM EDT [facility] GLUC BLD GLUC MNTR DEV CLEARED FDA SPEC HOME USE POCT GLUCOSE Routine 09/16/2020 9:39 AM EDT 09/16/2020 01:39:00 PM EDT [facility] BLOOD COUNT HEMATOCRIT HEMATOCRIT Routine 09/16/2020 4:44 AM EDT 09/16/2020 08:44:00 AM EDT [facility] BASIC METABOLIC PANEL CALCIUM TOTAL BASIC METABOLIC PANEL Routi ne 09/16/2020 4:44 AM EDT 09/16/2020 08:44:00 AM EDT [facility] GLUC BLD GLUC MNTR DEV CLEARED FDA SPEC HOME USE POCT GLUCOSE Routine 09/16/2020 1:09 AM EDT 09/16/2020 05:09:00 AM EDT [facility] GLUC BLD GLUC MNTR DEV CLEARED FDA SPEC HOME USE POCT GLUCOSE Routine 09/15/2020 6:28 PM EDT 09/15/2020 10:28:00 PM EDT [facility] GLUC BLD GLUC MNTR DEV CLEARED FDA SPEC HOME USE POCT GLUCOSE Routine 09/15/2020 4:09 PM EDT 09/15/2020 08:09:00 PM EDT [facility] FLUOROSCOPY SPX <1 HOUR PHYSICIAN TIME XR OR SPINE LUMBAR VINICIO NUATION STAT 09/15/2020 12:44 PM EDT 09/15/2020 04:44:42 PM EDT [facility] GLUC BLD GLUC MNTR DEV CLEARED FDA SPEC HOME USE POCT GLUCOSE Routine 09/15/2020 12:34 PM EDT 09/15/2020 04:34:00 PM EDT [facility] GLUC BLD GLUC MNTR DEV CLEARED FDA SPEC HOME USE POCT GLUCOSE Routine 09/15/2020 11:26 AM EDT 09/15/2020 03:26:00 PM EDT [facility] GLUC BLD GLUC MNTR DEV CLEARED FDA SPEC HOME USE POCT GLUCOSE Routine 09/15/2020 10:13 AM EDT 09/15/2020 02:13:00 PM EDT [facility] GLUC BLD GLUC MNTR DEV CLEARED FDA SPEC HOME USE POCT GLUCOSE Routine 09/15/2020 9:12 AM EDT 09/15/2020 01:12:00 PM EDT [facility] XR OR SPINE LUMBAR XR OR SPINE LUMBAR STAT 09/15/2020 9:07 AM E DT 09/15/2020 01:07:11 PM EDT [facility] [place] RADEX SPINE 1 VIEW SPECIFY LEVEL XR OR SPINE LUMBAR CONTINUATIO N STAT 09/15/2020 8:47 AM EDT 09/15/2020 12:47:42 PM EDT [facility] GLUC BLD GLUC MNTR DEV CLEARED FDA SPEC HOME USE POCT GLUCOSE Routine 09/15/2020 7:59 AM EDT 09/15/2020 11:59:00 AM EDT [facility] ARTHRODESIS POSTERIOR INTERBODY LUMBAR LAMINECTOMY, S PINE, THORACOLUMBAR, 1 LEVEL, WITH DECOMPRESSION AND FUSION 09/15/2020 7:24 AM EDT Herniated nucleus pulposus, L5-S1 Spondylolisthesis, lumbosacral region Low back pain 09/15/2020 11:24:00 AM EDT - 09/15/2020 03:51:00 PM EDT Low back painSpondylolisthesis, lumbosacral regionHerniated nucleus pulposus, L5-S1 [facility] Low back pain Spondylolisthesis, lumbosacral region Herniated nucleus pulposus, L5-S1 GLUC BLD GLUC MNTR DEV CLEARED FDA SPEC HOME USE POCT GLUCOSE Routine 09/15/2020 6:48 AM EDT 09/15/2020 10:48:00 AM EDT [facility] GLUC BLD GLUC MNTR DEV CLEARED FDA SPEC HOME USE POCT GLUCOSE Routine 09/15/2020 6:33 AM EDT 09/15/2020 10:33:00 AM EDT [facility] GLUC BLD GLUC MNTR DEV CLEARED FDA SPEC HOME USE POCT GLUCOSE Routine 09/15/2020 6:16 AM EDT 09/15/2020 10:16:00 AM EDT [facility] POCT I-STAT BETA HCG POCT I-STAT BETA HCG Routine 09/15/2020 6:13 AM EDT 09/15/2020 10:13:00 AM EDT [facility] GLUC BLD GLUC MNTR DEV CLEARED FDA SPEC HOME USE POCT GLUCOSE Routine 09/15/2020 6:03 AM EDT 09/15/2020 10:03:00 AM EDT [facility] GLUC BLD GLUC MNTR DEV CLEARED FDA SPEC HOME USE POCT GLUCOSE Routine 09/15/2020 5:44 AM EDT 09/15/2020 09:44:00 AM EDT [facility] ECG ROUTINE ECG W/LEAST 12 LDS TRCG ONLY W/O I&R ECG 12-LEAD Routine 09/07/2020 3:01 PM EDT Chronic low back pain, unspecified back pain laterality, unspecified whether sciatica present Herniated nucleus pulposus, L5-S1 Spondylolisthesis, lumbosacral region 09/07/2020 07:01:06 PM EDT Spondylolisthesis, lumbosacral regionHerniated nucleus pulposus, L5-[id number] low back pain, unspecified back pain laterality, unspecified whether sciatica present [facility] Spondylolisthesis, lumbosacral region Herniated nucleus pulposus, L5-S1 Chronic low back pain, unspecified back pain laterality, unspecified whether sciatica present THROMBOPLASTIN TIME PARTIAL PLASMA/WHOLE BLOOD APTT Routine 09/07/2020 2:50 PM EDT Chronic low back pain, unspecified back pain laterality, unspecified whether sciatica present Herniated nucleus pulposus, L5-S1 Spondylolisthesis, lumbosacral region 09/07/2020 06:50:00 PM EDT Spondylolisthesis, lumbosacral regionHerniated nucleus pulposus, [id number] low back pain, unspecified back pain laterality, unspecified whether sciatica present [facility] Spondylolisthesis, lumbosacral region Herniated nucleus pulposus, L5-S1 Chronic low back pain, unspecified back pain laterality, unspecified whether sciatica present PROTHROMBIN TIME PROTIME-INR Routine 09/07/2020 2:50 PM EDT Chronic low back pain, unspecified back pain laterality, unspecified whether sciatica present Herniated nucleus pulposus, L5-S1 Spondylolisthesis, lumbosacral region 09/07/2020 06:50:00 PM EDT Spondylolisthesis, lumbosacral regionHerniated nucleus pulposus, L5-C0Sbkwrge low back pain, unspecified back pain laterality, unspecified whether sciatica present [facility] Spondylolisthesis, lumbosacral region Herniated nucleus pulposus, L5-S1 Chronic low back pain, unspecified back pain laterality, unspecified whether sciatica present BLOOD COUNT COMPLETE AUTOMATED CBC Routine 0 2:50 PM EDT Chronic low back pain, unspecified back pain laterality, unspecified whether sciatica present Herniated nucleus pulposus, L5-S1 Spondylolisthesis, lumbosacral region 09/07/2020 06:50:00 PM EDT Spondylolisthesis, lumbosacral regionHerniated nucleus pulposus, L5-[id number] low back pain, unspecified back pain laterality, unspecified whether sciatica present [facility] Spondylolisthesis, lumbosacral region Herniated nucleus pulposus, L5-S1 Chronic low back pain, unspecified back pain laterality, unspecified whether sciatica present BLOOD TYPING ABO TYPE AND SCREEN Routine 09/07/2020 2:50 PM EDT Chronic low back pain, unspecified back pain laterality, unspecified whether sciatica present Herniated nucleus pulposus, L5-S1 Spondylolisthesis, lumbosacral region 09/07/2020 06:50:00 PM EDT Spondylolisthesis, lumbosacral regionHerniated nucleus pulposus, L5-[id number] low back pain, unspecified back pain laterality, unspecified whether sciatica present [facility] Spondylolisthesis, lumbosacral region Herniated nucleus pulposus, L5-S1 Chronic low back pain, unspecified back pain laterality, unspecified whether sciatica present HEMOGLOBIN GLYCOSYLATED A1C HEMOGLOBIN A1C Routine 09/07/2020 2:50 PM EDT Chronic low back pain, unspecified back pain laterality, unspecified whether sciatica present Herniated nucleus pulposus, L5-S1 Spondylolisthesis, lumbosacral region 09/07/2020 06:50:00 PM EDT Spondylolisthesis, lumbosacral regionHerniated nucleus pulposus, L5-V5Kxmilqy low back pain, unspecified back pain laterality, unspecified whether sciatica present [facility] Spondylolisthesis, lumbosacral region Herniated nucleus pulposus, L5-S1 Chronic low back pain, unspecified back pain laterality, unspecified whether sciatica present COMPREHENSIVE METABOLIC PANEL COMPREHENSIVE METABOLIC PANEL Rou baltazar 09/07/2020 2:50 PM EDT Chronic low back pain, unspecified back pain laterality, unspecified whether sciatica present Herniated nucleus pulposus, L5-S1 Spondylolisthesis, lumbosacral region 09/07/2020 06:50:00 PM EDT Spondylolisthesis, lumbosacral regionHerniated nucleus pulposus, L5-O8Csqcqko low back pain, unspecified back pain laterality, unspecified whether sciatica present [facility] Spondylolisthesis, lumbosacral region Herniated nucleus pulposus, L5-S1 Chronic low back pain, unspecified back pain laterality, unspecified whether sciatica present IADNA S AUREUS METHICILLIN RESIST AMP PROBE TQ STAPH PCR SCREEN Routine 09/07/2020 2:46 PM EDT Chronic low back pain, unspecified back pain laterality, unspecified whether sciatica present Herniated nucleus pulposus, L5-S1 Spondylolisthesis, lumbosacral region 09/07/2020 06:46:00 PM EDT Spondylolisthesis, lumbosacral regionHerniated nucleus pulposus, L5-Q9Wwyfnyz low back pain, unspecified back pain laterality, unspecified whether sciatica present [facility] Spondylolisthesis, lumbosacral region Herniated nucleus pulposus, L5-S1 Chronic low back pain, unspecified back pain laterality, unspecified whether sciatica present ECG ROUTINE ECG W/LEAST 12 LDS W/I&R 09/02/2020 12:00: 00 AM EDT [facility] ([facility] Diabetic Foot Exam 06/29/2020 12:00:00 AM EDT [facility] ([facility] Amb Glucose Monitoring Interpretation And Report 06/29 12:00:00 AM EDT [facility] ([facility]) Results ID Date Data Source [id number] 12/03/2020 12:05:29 PM EST [facility] Name Value Range Interpretation Code Description Data Tere rce(s) Supporting Document(s) POC GLUCOSE 152 mg/dL (70-99) H [facility] PERFORMED BY CLINICAL STAFF ID Date Data Source [id number] 12/03/2020 07:34:49 AM EST [facility] Name Value Range Interpretation Code Description Data Tere rce(s) Supporting Document(s) POC GLUCOSE 251 mg/dL (70-99) H [facility] PERFORMED BY CLINICAL STAFF ID Date Data Source [id number] 12/03/2020 06:38:08 AM EST [facility] Name Value Range Interpretation Code Description Data Tere rce(s) Supporting Document(s) SODIUM 135 mmol/L (136-145) L [facility] POTASSIUM 4.7 mmol/L (3.6-5.2) [facility] CHLORIDE 97 mmol/L (100-108) L [facility] CO2 30 mmol/L (22-31) [facility] ANION GAP 8 mmol/L (7-16) [facility] UREA NITROGEN 14 mg/dL (7-24) [facility] CREATININE 0.57 mg/dL (0.60-1.00) L [facility] BUN/CREAT RATIO 24.6 RATIO (10.0-20.0) H [facility] GLUCOSE 189 mg/dL (70-99) H [facility] CALCIUM 8.4 mg/dL (8.4-10.2) [facility] GFR >60 ml/min/1.73m2 (>59) [facility] GFR ( AMER) >60 ml/min/1.73m2 (>59) [facility] GFR INTERPRETATION [facility] --NORMAL KIDNEY FUNCTION OR MILD DISEASE - GFR >OR= 60CHRONIC KIDNEY DISEASE - GFR 15 - 59RENAL FAILURE - GFR <15 Est. GFR calculation based on the MDRDstudy equation, which assumes a steadystate for creatinine. Est. GFR should notbe used for medication dosing. ID Date Data Source [id number] 12/03/2020 06:12:13 AM EST [facility] Name Value Range Interpretation Code Description Data Tere rce(s) Supporting Document(s) WBC 13.3 10*3/uL (4.1-11.0) H [facility] RBC 2.60 10*6/uL (4.00-5.40) L [facility] HGB 7.6 g/dL (12.0-16.0) L [facility] HCT 23.4 % (36.0-47.0) L [facility] MCV 90.1 fL (80.0-95.0) [facility] MCH 29.0 pg (27.0-32.0) [facility] MCHC 32.2 g/dL (32.0-36.0) [facility] RDW 23.0 % (10.5-14.5) H [facility] PLT 357 10*3/uL (150-450) [facility] MPV 8.3 fL (7.1-10.7) [facility] ID Date Data Source [id number] 12/03/2020 02:20:57 AM EST [facility] Name Value Range Interpretation Code Description Data Tere rce(s) Supporting Document(s) POC GLUCOSE 167 mg/dL (70-99) H [facility] PERFORMED BY CLINICAL STAFF ID Date Data Source [id number] 12/02/2020 10:37:03 PM EST [facility] Name Value Range Interpretation Code Description Data Tere rce(s) Supporting Document(s) POC GLUCOSE 225 mg/dL (70-99) H [facility] NOTIFIED NURSEPERFORMED BY CLINICAL S TAFF ID Date Data Source [id number] 12/02/2020 09:03:29 PM EST [facility] Name Value Range Interpretation Code Description Data Tere rce(s) Supporting Document(s) POC GLUCOSE 199 mg/dL (70-99) H [facility] NOTIFIED NURSEPERFORMED BY CLINICAL S TAFF ID Date Data Source [id number] 12/02/2020 07:52:00 PM EST [facility] Name Value Range Interpretation Code Description Data Tere rce(s) Supporting Document(s) POC GLUCOSE 125 mg/dL (70-99) H [facility] PERFORMED BY CLINICAL STAFF ID Date Data Source [id number] 12/02/2020 06:54:01 PM EST [facility] Name Value Range Interpretation Code Description Data Tere rce(s) Supporting Document(s) POC GLUCOSE 82 mg/dL (70-99) [facility] PERFORMED BY CLINICAL STAFF ID Date Data Source [id number] 12/02/2020 06:28:20 PM EST [facility] Name Value Range Interpretation Code Description Data Tere rce(s) Supporting Document(s) POC GLUCOSE 62 mg/dL (70-99) L [facility] PERFORMED BY CLINICAL STAFF ID Date Data Source [id number] 12/02/2020 06:05:59 PM EST [facility] Name Value Range Interpretation Code Description Data Tere rce(s) Supporting Document(s) POC GLUCOSE 53 mg/dL (70-99) L [facility] PERFORMED BY CLINICAL STAFF ID Date Data Source [id number] 12/02/2020 12:34:07 PM EST [facility] Name Value Range Interpretation Code Description Data Tere rce(s) Supporting Document(s) POC GLUCOSE 150 mg/dL (70-99) H [facility] NOTIFIED NURSEPERFORMED BY CLINICAL S TAFF ID Date Data Source [id number] 12/02/2020 09:40:13 AM EST [facility] Name Value Range Interpretation Code Description Data Tere rce(s) Supporting Document(s) POC GLUCOSE 229 mg/dL (70-99) H [facility] PERFORMED BY CLINICAL STAFF ID Date Data Source [id number] 12/02/2020 06:35:20 AM EST [facility] Name Value Range Interpretation Code Description Data Tere rce(s) Supporting Document(s) WBC 16.6 10*3/uL (4.1-11.0) H [facility] RBC 2.89 10*6/uL (4.00-5.40) L [facility] HGB 8.1 g/dL (12.0-16.0) L [facility] HCT 26.1 % (36.0-47.0) L [facility] MCV 90.1 fL (80.0-95.0) [facility] MCH 27.9 pg (27.0-32.0) [facility] MCHC 31.0 g/dL (32.0-36.0) L [facility] RDW 21.8 % (10.5-14.5) H [facility] PLT 401 10*3/uL (150-450) [facility] MPV 8.4 fL (7.1-10.7) [facility] ID Date Data Source [id number] 12/02/2020 02:58:06 AM EST [facility] Name Value Range Interpretation Code Description Data Tere rce(s) Supporting Document(s) POC GLUCOSE 168 mg/dL (70-99) H [facility] PERFORMED BY CLINICAL STAFF ID Date Data Source [id number] 12/01/2020 09:10:37 PM EST [facility] Name Value Range Interpretation Code Description Data Tere rce(s) Supporting Document(s) POC GLUCOSE 196 mg/dL (70-99) H [facility] NOTIFIED NURSEPERFORMED BY CLINICAL S TAFF ID Date Data Source [id number] 12/01/2020 08:13:36 PM EST [facility] Name Value Range Interpretation Code Description Data Tere rce(s) Supporting Document(s) POC GLUCOSE 192 mg/dL (70-99) H [facility] PERFORMED BY CLINICAL STAFF ID Date Data Source [id number] 12/01/2020 06:54:28 PM EST [facility] Name Value Range Interpretation Code Description Data Tere rce(s) Supporting Document(s) POC GLUCOSE 109 mg/dL (70-99) H [facility] PERFORMED BY CLINICAL STAFF ID Date Data Source [id number] 12/01/2020 05:51:02 PM EST [facility] Name Value Range Interpretation Code Description Data Tere rce(s) Supporting Document(s) POC GLUCOSE 81 mg/dL (70-99) [facility] PERFORMED BY CLINICAL STAFF ID Date Data Source [id number] 12/01/2020 05:27:42 PM EST [facility] Name Value Range Interpretation Code Description Data Tere rce(s) Supporting Document(s) POC GLUCOSE 69 mg/dL (70-99) L [facility] PERFORMED BY CLINICAL STAFF ID Date Data Source [id number] 12/01/2020 04:54:36 PM EST [facility] Name Value Range Interpretation Code Description Data Tere rce(s) Supporting Document(s) POC GLUCOSE 65 mg/dL (70-99) L [facility] PERFORMED BY CLINICAL STAFF ID Date Data Source [id number] 12/01/2020 12:17:36 PM EST [facility] Name Value Range Interpretation Code Description Data Tere rce(s) Supporting Document(s) POC GLUCOSE 196 mg/dL (70-99) H [facility] NOTIFIED NURSEPERFORMED BY CLINICAL S TAFF ID Date Data Source [id number] 12/01/2020 12:08:05 PM EST [facility] Name Value Range Interpretation Code Description Data Tere rce(s) Supporting Document(s) STOOL OCCULT BLOOD (NEG) [facility] ID Date Data Source [id number] 12/01/2020 08:17:17 AM EST [facility] Name Value Range Interpretation Code Description Data Tere rce(s) Supporting Document(s) POC GLUCOSE 360 mg/dL (70-99) H [facility] PERFORMED BY CLINICAL STAFF ID Date Data Source [id number] 12/01/2020 03:01:27 AM EST [facility] Name Value Range Interpretation Code Description Data Tere rce(s) Supporting Document(s) POC GLUCOSE 241 mg/dL (70-99) H [facility] NOTIFIED NURSEPERFORMED BY CLINICAL S TAFF ID Date Data Source [id number] 12/01/2020 02:52:46 AM EST [facility] Name Value Range Interpretation Code Description Data Tere rce(s) Supporting Document(s) POC GLUCOSE 97 mg/dL (70-99) [facility] PERFORMED BY CLINICAL STAFF ID Date Data Source [id number] 11/30/2020 05:47:50 PM EST [facility] Name Value Range Interpretation Code Description Data Tere rce(s) Supporting Document(s) POC GLUCOSE 146 mg/dL (70-99) H [facility] PERFORMED BY CLINICAL STAFF ID Date Data Source [id number] 11/30/2020 01:08:23 PM EST [facility] Name Value Range Interpretation Code Description Data Tere rce(s) Supporting Document(s) POC GLUCOSE 124 mg/dL (70-99) H [facility] NOTIFIED PROVIDERPERFORMED BY CLINICA L STAFF ID Date Data Source [id number] 11/30/2020 09:00:39 AM EST [facility] Name Value Range Interpretation Code Description Data Tere rce(s) Supporting Document(s) POC GLUCOSE 261 mg/dL (70-99) H [facility] PERFORMED BY CLINICAL STAFF ID Date Data Source [id number] 11/30/2020 06:49:24 AM EST [facility] Name Value Range Interpretation Code Description Data Tere rce(s) Supporting Document(s) SODIUM 138 mmol/L (136-145) [facility] POTASSIUM 4.7 mmol/L (3.6-5.2) [facility] CHLORIDE 101 mmol/L (100-108) [facility] CO2 30 mmol/L (22-31) [facility] ANION GAP 7 mmol/L (7-16) [facility] UREA NITROGEN 5 mg/dL (7-24) L [facility] CREATININE 0.52 mg/dL (0.60-1.00) L [facility] BUN/CREAT RATIO 9.6 RATIO (10.0-20.0) L [facility] GLUCOSE 245 mg/dL (70-99) H [facility] CALCIUM 7.9 mg/dL (8.4-10.2) L [facility] GFR >60 ml/min/1.73m2 (>59) [facility] GFR ( AMER) >60 ml/min/1.73m2 (>59) [facility] GFR INTERPRETATION [facility] --NORMAL KIDNEY FUNCTION OR MILD DISEASE - GFR >OR= 60CHRONIC KIDNEY DISEASE - GFR 15 - 59RENAL FAILURE - GFR <15 Est. GFR calculation based on the MDRDstudy equation, which assumes a steadystate for creatinine. Est. GFR should notbe used for medication dosing. ID Date Data Source [id number] 11/30/2020 06:26:41 AM EST [facility] Name Value Range Interpretation Code Description Data Tere rce(s) Supporting Document(s) WBC 9.0 10*3/uL (4.1-11.0) [facility] RBC 2.65 10*6/uL (4.00-5.40) L [facility] HGB 7.6 g/dL (12.0-16.0) L [facility] HCT 23.4 % (36.0-47.0) L [facility] MCV 88.6 fL (80.0-95.0) [facility] MCH 28.6 pg (27.0-32.0) [facility] MCHC 32.3 g/dL (32.0-36.0) [facility] RDW 20.1 % (10.5-14.5) H [facility] PLT 431 10*3/uL (150-450) [facility] MPV 8.1 fL (7.1-10.7) [facility] ID Date Data Source [id number] 11/30/2020 02:52:26 AM EST [facility] Name Value Range Interpretation Code Description Data Tere rce(s) Supporting Document(s) POC GLUCOSE 242 mg/dL (70-99) H [facility] NOTIFIED NURSEPERFORMED BY CLINICAL S TAFF ID Date Data Source [id number] 11/30/2020 01:12:33 AM EST [facility] Name Value Range Interpretation Code Description Data Tere rce(s) Supporting Document(s) POC GLUCOSE 123 mg/dL (70-99) H [facility] NOTIFIED NURSEPERFORMED BY CLINICAL S TAFF ID Date Data Source [id number] 11/29/2020 06:00:29 PM EST [facility] Name Value Range Interpretation Code Description Data Tere rce(s) Supporting Document(s) HGB 7.2 g/dL (12.0-16.0) L [facility] ID Date Data Source [id number] 11/30/2020 01:12:33 AM EST [facility] Name Value Range Interpretation Code Description Data Tere rce(s) Supporting Document(s) POC GLUCOSE 244 mg/dL (70-99) H [facility] PERFORMED BY CLINICAL STAFF ID Date Data Source [id number] 11/29/2020 01:33:56 PM EST [facility] Name Value Range Interpretation Code Description Data Tere rce(s) Supporting Document(s) POC GLUCOSE 186 mg/dL (70-99) H [facility] PERFORMED BY CLINICAL STAFF ID Date Data Source [id number] 11/29/2020 09:42:22 AM EST [facility] Name Value Range Interpretation Code Description Data Tere rce(s) Supporting Document(s) POC GLUCOSE 118 mg/dL (70-99) H [facility] PERFORMED BY CLINICAL STAFF ID Date Data Source [id number] 11/29/2020 07:32:04 AM EST [facility] Name Value Range Interpretation Code Description Data Tere rce(s) Supporting Document(s) HGB 7.0 g/dL (12.0-16.0) L [facility] ID Date Data Source [id number] 11/29/2020 04:33:34 AM EST [facility] Name Value Range Interpretation Code Description Data Tere rce(s) Supporting Document(s) POC GLUCOSE 128 mg/dL (70-99) H [facility] PERFORMED BY CLINICAL STAFF ID Date Data Source [id number] 11/29/2020 02:43:19 AM EST [facility] Name Value Range Interpretation Code Description Data Tere rce(s) Supporting Document(s) POC GLUCOSE 65 mg/dL (70-99) L [facility] PERFORMED BY CLINICAL STAFF ID Date Data Source [id number] 11/28/2020 10:58:44 PM EST [facility] Name Value Range Interpretation Code Description Data Tere rce(s) Supporting Document(s) POC GLUCOSE 100 mg/dL (70-99) H [facility] PERFORMED BY CLINICAL STAFF ID Date Data Source [id number] 11/28/2020 10:01:00 PM EST [facility] Name Value Range Interpretation Code Description Data Tere rce(s) Supporting Document(s) POC GLUCOSE 61 mg/dL (70-99) L [facility] PERFORMED BY CLINICAL STAFF ID Date Data Source [id number] 11/28/2020 05:13:49 PM EST [facility] Name Value Range Interpretation Code Description Data Tere rce(s) Supporting Document(s) POC GLUCOSE 197 mg/dL (70-99) H [facility] NOTIFIED NURSEPERFORMED BY CLINICAL S TAFF ID Date Data Source [id number] 11/28/2020 09:08:21 AM EST [facility] Name Value Range Interpretation Code Description Data Tere rce(s) Supporting Document(s) POC GLUCOSE 187 mg/dL (70-99) H [facility] NOTIFIED NURSEPERFORMED BY CLINICAL S TAFF ID Date Data Source [id number] 11/28/2020 08:31:40 AM EST [facility] Name Value Range Interpretation Code Description Data Tere rce(s) Supporting Document(s) SODIUM 140 mmol/L (136-145) [facility] POTASSIUM 4.6 mmol/L (3.6-5.2) [facility] CHLORIDE 105 mmol/L (100-108) [facility] CO2 29 mmol/L (22-31) [facility] ANION GAP 6 mmol/L (7-16) L [facility] UREA NITROGEN 3 mg/dL (7-24) L [facility] CREATININE 0.47 mg/dL (0.60-1.00) L [facility] BUN/CREAT RATIO 6.4 RATIO (10.0-20.0) L [facility] GLUCOSE 167 mg/dL (70-99) H [facility] CALCIUM 8.6 mg/dL (8.4-10.2) [facility] GFR >60 ml/min/1.73m2 (>59) [facility] GFR ( AMER) >60 ml/min/1.73m2 (>59) [facility] GFR INTERPRETATION [facility] --NORMAL KIDNEY FUNCTION OR MILD DISEASE - GFR >OR= 60CHRONIC KIDNEY DISEASE - GFR 15 - 59RENAL FAILURE - GFR <15 Est. GFR calculation based on the MDRDstudy equation, which assumes a steadystate for creatinine. Est. GFR should notbe used for medication dosing. ID Date Data Source [id number] 11/28/2020 08:08:54 AM EST [facility] Name Value Range Interpretation Code Description Data Tere rce(s) Supporting Document(s) WBC 7.6 10*3/uL (4.1-11.0) [facility] RBC 2.79 10*6/uL (4.00-5.40) L [facility] HGB 7.7 g/dL (12.0-16.0) L [facility] HCT 24.7 % (36.0-47.0) L [facility] MCV 88.5 fL (80.0-95.0) [facility] MCH 27.4 pg (27.0-32.0) [facility] MCHC 31.0 g/dL (32.0-36.0) L [facility] RDW 19.1 % (10.5-14.5) H Lab [facility] PLT 505 10*3/uL (150-450) H [facility] MPV 8.3 fL (7.1-10.7) [facility] ID Date Data Source [id number] 11/28/2020 02:55:00 AM EST [facility] Name Value Range Interpretation Code Description Data Tere rce(s) Supporting Document(s) POC GLUCOSE 190 mg/dL (70-99) H Lab [facility] NOTIFIED NURSEPERFORMED BY CLINICAL S TAFF ID Date Data Source [id number] 11/28/2020 04:56:00 PM EST [facility] [id number] [place], [place] [id number] NAME: GERALD MESA OF : 1975REPORT: DISCHARGE SUMMARYPATIENT NUMBER: [id number] STATUS: IPMEDICAL RECORD NUMBER: [id number] OF ADMISSION: 11/06/2020DATE OF DISCHARGE:ROOM: 01ADDENDUM TO THE DISCHARGE SUMMARY:Please refer to the detailed interim discharge summary typed in by Dr. Altamirano on 11/20/2020. I assumed care of Eli Mesa on 11/21/2020. Apparently after the surgery, she had a wound VAC in place. Apparently, the dressing wound VAC was removed by the Ortho Team on 11/23/2020 as because there was approximately 325 mL output from the incision site, and there was surrounding erythema, skin breakdown. Ortho team recommended for incision and drainage of the lumbar area. The patient was very upset about it; however, was agreeable and OR was done on 11/24/[address] Gordon. Then incision and drainage of the lumbar spine with deep incision and drainage, wound revision, application of negative pressure wound VAC system was done by Dr. Gordon on 11/24/2020. Because of that, I started her on empiric antibiotic, vancomycin and IV Zosyn and I requested for Infectious Disease evaluation. Infectious Disease Team evaluated the patient and they recommended for IV Zosyn to continue and discontinue the vanco; it was done. Her Microbiology results was followed. Her blood culture so far no growth; however, her wound culture was growing E-coli. The ID team recommended to de escalate the antibiotic to ceftriaxone 2 g IV q. 24 hours. The total duration recommended is 6 weeks, start date from 11/24/2020 with transition to chronic oral suppression thereafter. ID Clinic followup recommended in 3 weeks.Apparently today, the patient has another spiking fever and repeat bloodculture was drawn. The patient continued to be on antibiotic at thispoint. Needs to be followed if the culture grew anything.The remaining hospital course will be dictated by one of my colleaguesduring discharge.DICTATED BY: FELICITA Lveiictated: 11/27/2020 21:18DT: 11/27/2020 21:27Job #: [id number]: [facility] computer generated reports are notconfirmed or authenticated unless they are signed by the providerElectronically Authenticated and Edited by:PAYAL VITAL MD On 11/28/2020 04:56 PM EST Name Value Range Interpretation Code Description Data Tere rce(s) Supporting Document(s) ID Date Data Source [id number] 11/27/2020 09:24:17 PM EST [facility] Name Value Range Interpretation Code Description Data Tere rce(s) Supporting Document(s) POC GLUCOSE 172 mg/dL (70-99) H [facility] NOTIFIED NURSEPERFORMED BY CLINICAL S TAFF ID Date Data Source [id number] 11/27/2020 04:33:07 PM EST [facility] Name Value Range Interpretation Code Description Data Tere rce(s) Supporting Document(s) POC GLUCOSE 93 mg/dL (70-99) [facility] NOTIFIED NURSEPERFORMED BY CLINICAL S TAFF ID Date Data Source [id number] 11/27/2020 04:11:33 PM EST [facility] Name Value Range Interpretation Code Description Data Tere rce(s) Supporting Document(s) POC GLUCOSE 61 mg/dL (70-99) L [facility] NOTIFIED NURSEPERFORMED BY CLINICAL S TAFF ID Date Data Source [id number] 11/27/2020 04:16:15 PM EST [facility] Name Value Range Interpretation Code Description Data Tere rce(s) Supporting Document(s) POC GLUCOSE 41 mg/dL (70-99) LL [facility] NOTIFIED NURSEPERFORMED BY CLINICAL S TAFF ID Date Data Source [id number] 12/03/2020 10:21:35 AM EST [facility] SPECIMEN DESCRIPTION PERIPHERALSP ECIAL REQUESTS NONECULTURE RESULTS NO GROWTH 6 DAYSREPORT STATUS FINAL 12/03/2020 Name Value Range Interpretation Code Description Data Tere rce(s) Supporting Document(s) ID Date Data Source [id number] 12/03/2020 10:21:35 AM EST [facility] SPECIMEN DESCRIPTION PERIPHERALSP ECIAL REQUESTS NONECULTURE RESULTS NO GROWTH 6 DAYSREPORT STATUS FINAL 12/03/2020 Name Value Range Interpretation Code Description Data Tere rce(s) Supporting Document(s) ID Date Data Source [id number] 11/27/2020 12:56:15 PM EST [facility] Name Value Range Interpretation Code Description Data Tere rce(s) Supporting Document(s) POC GLUCOSE 143 mg/dL (70-99) H [facility] PERFORMED BY CLINICAL STAFF ID Date Data Source [id number] 11/27/2020 08:35:27 AM EST [facility] Name Value Range Interpretation Code Description Data Tere rce(s) Supporting Document(s) POC GLUCOSE 87 mg/dL (70-99) [facility] NOTIFIED NURSEPERFORMED BY CLINICAL S TAFF ID Date Data Source [id number] 11/27/2020 08:31:54 AM EST [facility] Name Value Range Interpretation Code Description Data Tere rce(s) Supporting Document(s) POC GLUCOSE 53 mg/dL (70-99) L [facility] NOTIFIED NURSEPERFORMED BY CLINICAL S TAFF ID Date Data Source [id number] 11/27/2020 09:15:37 AM EST [facility] Name Value Range Interpretation Code Description Data Tere rce(s) Supporting Document(s) POC GLUCOSE 44 mg/dL (70-99) LL [facility] NOTIFIED NURSEPERFORMED BY CLINICAL S TAFF ID Date Data Source [id number] 11/27/2020 07:31:15 AM EST [facility] Name Value Range Interpretation Code Description Data Tere rce(s) Supporting Document(s) SODIUM 141 mmol/L (136-145) [facility] POTASSIUM 3.4 mmol/L (3.6-5.2) L [facility] CHLORIDE 105 mmol/L (100-108) [facility] CO2 30 mmol/L (22-31) [facility] ANION GAP 6 mmol/L (7-16) L [facility] UREA NITROGEN 4 mg/dL (7-24) L [facility] CREATININE 0.49 mg/dL (0.60-1.00) L [facility] BUN/CREAT RATIO 8.2 RATIO (10.0-20.0) L [facility] GLUCOSE 52 mg/dL (70-99) L [facility] CALCIUM 8.1 mg/dL (8.4-10.2) L [facility] TOTAL PROTEIN 6.6 g/dL (6.4-8.2) [facility] ALBUMIN 2.2 g/dL (3.5-4.6) L [facility] GLOBULIN 4.4 g/dL (2.7-4.3) H [facility] ALB/GLOB RATIO 0.5 RATIO [facility] ALKALINE PHOSPHATASE 116 U/L (45-117) [facility] BILIRUBIN,TOTAL 0.1 mg/dL (0.0-1.0) [facility] PLEASE NOTE:Total bilirubin results may be falselyelevated in patients taking Eltrombopag. AST (SGOT) 17 U/L (11-39) [facility] ALT (SGPT) 14 U/L (12-78) [facility] GFR >60 ml/min/1.73m2 (>59) [facility] GFR ( AMER) >60 ml/min/1.73m2 (>59) [facility] GFR INTERPRETATION [facility] --NORMAL KIDNEY FUNCTION OR MILD DISEASE - GFR >OR= 60CHRONIC KIDNEY DISEASE - GFR 15 - 59RENAL FAILURE - GFR <15 Est. GFR calculation based on the MDRDstudy equation, which assumes a steadystate for creatinine. Est. GFR should notbe used for medication dosing. ID Date Data Source [id number] 11/27/2020 06:59:02 AM EST [facility] Name Value Range Interpretation Code Description Data Tere rce(s) Supporting Document(s) WBC 6.9 10*3/uL (4.1-11.0) [facility] RBC 2.63 10*6/uL (4.00-5.40) L [facility] HGB 7.2 g/dL (12.0-16.0) L [facility] HCT 22.7 % (36.0-47.0) L [facility] MCV 86.3 fL (80.0-95.0) [facility] MCH 27.4 pg (27.0-32.0) [facility] MCHC 31.8 g/dL (32.0-36.0) L [facility] RDW 18.9 % (10.5-14.5) H [facility] PLT 531 10*3/uL (150-450) H [facility] MPV 8.3 fL (7.1-10.7) [facility] ID Date Data Source [id number] 11/27/2020 02:37:10 AM EST [facility] Name Value Range Interpretation Code Description Data Tere rce(s) Supporting Document(s) POC GLUCOSE 82 mg/dL (70-99) [facility] PERFORMED BY CLINICAL STAFF ID Date Data Source [id number] 11/26/2020 10:21:03 PM EST [facility] Name Value Range Interpretation Code Description Data Tere rce(s) Supporting Document(s) POC GLUCOSE 157 mg/dL (70-99) H [facility] NOTIFIED NURSEPERFORMED BY CLINICAL S TAFF ID Date Data Source [id number] 11/26/2020 06:33:02 PM EST [facility] Name Value Range Interpretation Code Description Data Tere rce(s) Supporting Document(s) POC GLUCOSE 120 mg/dL (70-99) H [facility] PERFORMED BY CLINICAL STAFF ID Date Data Source [id number] 11/26/2020 11:50:05 AM EST [facility] Name Value Range Interpretation Code Description Data Tere rce(s) Supporting Document(s) POC GLUCOSE 171 mg/dL (70-99) H [facility] PERFORMED BY CLINICAL STAFF ID Date Data Source [id number] 11/26/2020 09:52:50 AM EST [facility] Name Value Range Interpretation Code Description Data Tere rce(s) Supporting Document(s) POC GLUCOSE 150 mg/dL (70-99) H [facility] PERFORMED BY CLINICAL STAFF ID Date Data Source [id number] 11/26/2020 02:52:24 PM EST [facility] Name Value Range Interpretation Code Description Data Tere rce(s) Supporting Document(s) RETIC % 2.0 % (0.6-2.1) [facility] PERFORMED AT [address] [place] [id number] RETIC INDEX 1.1 % (0.5-1.9) [facility] ABSOLUTE RETIC 0.06 10*6/uL (0.027-0.101) [facility] ID Date Data Source [id number] 11/26/2020 10:13:28 AM EST [facility] Name Value Range Interpretation Code Description Data Tere rce(s) Supporting Document(s) IRON,TOTAL @ 14 ug/dL (35-150) L [facility] [place] UIBC @ 203 ug/dL (130-375) [facility] TIBC @ 217 ug/dL (250-450) L [facility] % SATURATION 6 % (12-50) L [facility] [place] ID Date Data Source [id number] 11/26/2020 10:13:28 AM EST [facility] Name Value Range Interpretation Code Description Data Tere rce(s) Supporting Document(s) FERRITIN @ 63 ng/mL (8-252) [facility] ID Date Data Source [id number] 11/26/2020 07:23:15 AM EST [facility] Name Value Range Interpretation Code Description Data Tere rce(s) Supporting Document(s) LDH 152 U/L (84-246) [facility] ID Date Data Source [id number] 11/26/2020 07:23:15 AM EST [facility] Name Value Range Interpretation Code Description Data Tere rce(s) Supporting Document(s) SODIUM 139 mmol/L (136-145) [facility] POTASSIUM 3.8 mmol/L (3.6-5.2) [facility] CHLORIDE 104 mmol/L (100-108) [facility] CO2 26 mmol/L (22-31) [facility] ANION GAP 9 mmol/L (7-16) [facility] UREA NITROGEN 4 mg/dL (7-24) L [facility] CREATININE 0.54 mg/dL (0.60-1.00) L [facility] BUN/CREAT RATIO 7.4 RATIO (10.0-20.0) L [facility] GLUCOSE 207 mg/dL (70-99) H [facility] CALCIUM 7.8 mg/dL (8.4-10.2) L [facility] GFR >60 ml/min/1.73m2 (>59) [facility] GFR ([facility]) >60 ml/min/1.73m2 (>59) [facility] GFR INTERPRETATION [facility] --NORMAL KIDNEY FUNCTION OR MILD DISEASE - GFR >OR= 60CHRONIC KIDNEY DISEASE - GFR 15 - 59RENAL FAILURE - GFR <15 Est. GFR calculation based on the MDRDstudy equation, which assumes a steadystate for creatinine. Est. GFR should notbe used for medication dosing. ID Date Data Source [id number] 11/26/2020 06:58:11 AM EST [facility] Name Value Range Interpretation Code Description Data Tere rce(s) Supporting Document(s) WBC 7.4 10*3/uL (4.1-11.0) [facility] [place] RBC 2.75 10*6/uL (4.00-5.40) L [facility] HGB 7.5 g/dL (12.0-16.0) L [facility] HCT 23.5 % (36.0-47.0) L [facility] MCV 85.2 fL (80.0-95.0) [facility] MCH 27.3 pg (27.0-32.0) [facility] MCHC 32.0 g/dL (32.0-36.0) [facility] RDW 18.8 % (10.5-14.5) H [facility] PLT 557 10*3/uL (150-450) H [facility] MPV 8.2 fL (7.1-10.7) [facility] ID Date Data Source [id number] 11/26/2020 05:49:15 AM EST [facility] Name Value Range Interpretation Code Description Data Tere rce(s) Supporting Document(s) POC GLUCOSE 219 mg/dL (70-99) H [facility] PERFORMED BY CLINICAL STAFF ID Date Data Source [id number] 11/25/2020 08:59:29 PM EST [facility] Name Value Range Interpretation Code Description Data Tere rce(s) Supporting Document(s) POC GLUCOSE 150 mg/dL (70-99) H [facility] PERFORMED BY CLINICAL STAFF ID Date Data Source [id number] 11/25/2020 05:07:35 PM EST [facility] Name Value Range Interpretation Code Description Data Tere rce(s) Supporting Document(s) POC GLUCOSE 82 mg/dL (70-99) [facility] PERFORMED BY CLINICAL STAFF ID Date Data Source [id number] 11/25/2020 01:32:34 PM EST [facility] Name Value Range Interpretation Code Description Data Tere rce(s) Supporting Document(s) POC GLUCOSE 238 mg/dL (70-99) H [facility] NOTIFIED NURSEPERFORMED BY CLINICAL S TAFF ID Date Data Source [id number] 11/25/2020 09:07:57 AM EST [facility] Name Value Range Interpretation Code Description Data Tere rce(s) Supporting Document(s) POC GLUCOSE 217 mg/dL (70-99) H [facility] NOTIFIED NURSEPERFORMED BY CLINICAL S TAFF ID Date Data Source [id number] 11/25/2020 07:28:44 AM EST [facility] Name Value Range Interpretation Code Description Data Tere rce(s) Supporting Document(s) POC GLUCOSE 228 mg/dL (70-99) H [facility] PERFORMED BY CLINICAL STAFF ID Date Data Source [id number] 11/25/2020 08:40:12 AM EST [facility] Name Value Range Interpretation Code Description Data Tere rce(s) Supporting Document(s) SODIUM 137 mmol/L (136-145) [facility] POTASSIUM 4.2 mmol/L (3.6-5.2) [facility] CHLORIDE 103 mmol/L (100-108) [facility] CO2 23 mmol/L (22-31) [facility] ANION GAP 11 mmol/L (7-16) [facility] UREA NITROGEN 7 mg/dL (7-24) [facility] CREATININE 0.59 mg/dL (0.60-1.00) L [facility] BUN/CREAT RATIO 11.9 RATIO (10.0-20.0) [facility] GLUCOSE 242 mg/dL (70-99) [facility] CALCIUM 8.1 mg/dL (8.4-10.2) [facility] GFR >60 ml/min/1.73m2 (>59) [facility] GFR ( AMER) >60 ml/min/1.73m2 (>59) [facility] GFR INTERPRETATION [facility] --NORMAL KIDNEY FUNCTION OR MILD DISEASE - GFR >OR= 60CHRONIC KIDNEY DISEASE - GFR 15 - 59RENAL FAILURE - GFR <15 Est. GFR calculation based on the MDRDstudy equation, which assumes a steadystate for creatinine. Est. GFR should notbe used for medication dosing. ID Date Data Source [id number] 11/25/2020 07:53:36 AM EST [facility] Name Value Range Interpretation Code Description Data Tere rce(s) Supporting Document(s) WBC 8.5 10*3/uL (4.1-11.0) [facility] RBC 2.56 10*6/uL (4.00-5.40) [facility] HGB 7.2 g/dL (12.0-16.0) [facility] HCT 22.4 % (36.0-47.0) [facility] MCV 87.7 fL (80.0-95.0) [facility] MCH 28.1 pg (27.0-32.0) [facility] MCHC 32.0 g/dL (32.0-36.0) [facility] RDW 18.5 % (10.5-14.5) [facility] PLT 530 10*3/uL (150-450) [facility] MPV 8.6 fL (7.1-10.7) Lab [facility] ID Date Data Source [id number] 11/25/2020 08:40:12 AM EST [facility] Name Value Range Interpretation Code Description Data Tere rce(s) Supporting Document(s) VANCOMYCIN TROUGH 11.1 ug/mL (10.0-20.0) [facility] ID Date Data Source [id number] 11/25/2020 02:30:36 AM EST [facility] Name Value Range Interpretation Code Description Data Tere rce(s) Supporting Document(s) POC GLUCOSE 202 mg/dL (70-99) H [facility] NOTIFIED NURSEPERFORMED BY CLINICAL S TAFF ID Date Data Source [id number] 11/24/2020 11:08:59 PM EST [facility] Name Value Range Interpretation Code Description Data Tere rce(s) Supporting Document(s) POC GLUCOSE 88 mg/dL (70-99) [facility] NOTIFIED NURSEPERFORMED BY CLINICAL S TAFF ID Date Data Source [id number] 11/24/2020 11:08:59 PM EST [facility] Name Value Range Interpretation Code Description Data Tere rce(s) Supporting Document(s) POC GLUCOSE 66 mg/dL (70-99) L [facility] NOTIFIED NURSEPERFORMED BY CLINICAL S TAFF ID Date Data Source [id number] 11/24/2020 05:19:35 PM EST [facility] Name Value Range Interpretation Code Description Data Tere rce(s) Supporting Document(s) POC GLUCOSE 158 mg/dL (70-99) H [facility] PERFORMED BY CLINICAL STAFF ID Date Data Source [id number] 11/25/2020 07:48:00 AM EST [facility] [id number] [place], [place] [address] NAME: GERALD EMSA OF : 1975REPORT: OPERATIONPATIENT NUMBER: [id number] STATUS: IPMEDICAL RECORD NUMBER: [id number] OF ADMISSION: 11/06/2020DATE OF DISCHARGE:ROOM: 02DATE OF PROCEDURE: 11/24/2020REOPERATIVE DIAGNOSES:1. Deep lumbar spine infection.2. Wound dehiscence.POSTOPERATIVE DIAGNOSES:1. Deep lumbar spine infection.2. Wound dehiscence.PROCEDURES PERFORMED: Incision and drainage lumbar spine, deep infectionwith deep incision and drainage, wound revision, application of negativepressure wound VAC system.ANESTHESIA: General.SURGEON: Elías Gordon MDASSISTANT: Brendon Milligan DNP. No resident was available.ESTIMATED BLOOD L OSS: Minimal.IV FLUIDS ADMINISTERED: 1000 cc of lactated Ringer's.DRAINS: None.SPECIMENS: Deep and superficial wound culture.IMPLANTS: None.COMPLICATIONS: None.CONDITION: Stable.INDICATIONS FOR SURGERY: This is a very pleasant female who underwent anL5-S1 spinal fusion by another spine provider, she developed apostoperative grade 4 spondylolisthesis and then underwent a complex lumbarspine decompression and fusion revision operation by myself in 10/2020. She was subsequently exposed to COVID-19 while in the hospital and prior todischarge to rehab from her second surgery, the patient tested positive andwas therefore transferred to the COVID Unit. She was not able toparticipate in physical therapy and mobility because she was lying on herback for extended period of time in the hospital, she developed woundbreakdown, wound dehiscence, and infection.PROCEDURE: The patient was seen prior to surgery. Her back was signed andshe was intubated, then positioned prone. An examination of the incision,there was a large amount of wound dehiscence measuring approximately 10 cmwhere by the subdermal sutures were visualized because of breakdown abovethe sutures. The area was erythematous. There was drainage as well fromthe incision. After the prepping and draping, a formal time-out wasperformed. A midline incision was taken down through the previousincision. The incision measured about 15 cm. The wound edges werenecrotic. I used a 10-blade scalpel to excise about 5 mm of skin edgesaround the entire length of the incision on both sides. This created freshbleeding edges. I then incised down to the fascia. Deep to the fascia,there was cloudy fluid. This was cultured. Superficial cultures were alsotaken of the area just on top of the fascia. It appeared that theinfection was deep. Upon digital palpation, the cloudy fluid was alsoexpressed from the bilateral iliac crest harvest sites. I used the rongeurand scalpels to remove necrotic muscle and fat. The wound itself was about10 cm deep. The width of the area was about 8 cm. I then irrigated with 2liters of normal saline. I then closed the fascial layer after thedebridement was performed. The debridement was performed with a Leksellrongeur, the Bovie, and with the large curettes removing the necroticmuscle and fat. After the fascial layer was closed, I applied a wound VACon top of the fascia. The purpose is to heal the w ound by secondaryintention. Because the patient is not ambulatory, not able to participatein physical therapy because of her COVID status, she is spending a lot oftime lying on her back and this was creating wound pressure and woundbreakdown. After the wound VAC was applied, the patient was brought to [facility] in stable condition. I was present for the entire case and performedall critical aspects of the surgery.DICTATED BY: FELICITA Mcguireictated: 11/24/2020 12:47DT: 11/24/2020 12:55Job #: [id number]: [facility] computer generated reports are not confirmed orauthenticated unless they are signed by the providerElectronically Authenticated by:ELÍAS GORDON MD On 11/25/2020 07:48 AM EST Name Value Range Interpretation Code Description Data Tere rce(s) Supporting Document(s) ID Date Data Source [id number] 11/24/2020 12:57:38 PM EST [facility] Name Value Range Interpretation Code Description Data Tere rce(s) Supporting Document(s) POC GLUCOSE 107 mg/dL (70-99) H [facility] NOTIFIED PROVIDERNOTIFIED NURSEPERFORMED BY CLINICAL STAFF ID Date Data Source [id number] 11/24/2020 05:03:18 PM EST [facility] SPECIMEN DESCRIPTION SITE LUMBA WOUNDSPECIAL REQUESTS NONECULTURE RESULTS SPECIMEN IMPROPERLY COLLECTED. RED TOP SWAB WITH NO GEL WAS RECEIVED. REPORT STATUS FINAL 11/24/2020 Name Value Range Interpretation Code Description Data Tere rce(s) Supporting Document(s) ID Date Data Source [id number] 11/27/2020 08:46:13 AM EST [facility] SPECIMEN DESCRIPTION SITE LUMBAU WOUNDSPECIAL REQUESTS NONECULTURE RESULTS NO ANAEROBES ISOLATEDREPORT STATUS FINAL 11/27/2020 Name Value Range Interpretation Code Description Data Tere rce(s) Supporting Document(s) ID Date Data Source [id number] 11/26/2020 08:52:32 AM EST [facility] SPECIMEN DESCRIPTION SITE LUMBAU WOUNDSPECIAL REQUESTS NONEGRAM STAIN MANY (>25/LPF) WHITE BLOOD CELLS NO BACTERIACULTURE RESULTS RARE ES CHERICHIA COLI SHORTY NUMBERS CAN NOT BE DIRECTLY COMPARED ACROSS DIFFERENT ANTIBIOTICS. SHORTY VALUES ARE OCCASIONALLY USEFUL. SUSCEPTIBLE OR RESISTANT INTERPRETATIONS ALONE ARE SUFFICIENT FOR ANTIBIOTIC SELECTION IN THE GREAT MAJORITY OF INFECTIONS.REPORT STATUS FINAL 11/26/2020ORGANISM ESCHERICHIA COLIMETHOD MICAMIKACIN <=2 SUSCEPTIBLEAMOXICILLIN/CLAVULANIC AC 4/2 SUSCEPTIBLEAMPICILLIN 8 SUSCEPTIBLE ISOLATES SUSCEPTIBLE TO AMPICILLIN ARE ALSO SUSCEPTIBLE TO AMOXICILLIN.CEFOXITIN <=4 SUSCEPTIBLECEFTAZIDIME <=1 SUSCEPTIBLECEFTRIAXONE <=1 SUSCEPTIBLECIPROFLOXACIN <=0.25 SUSCEPTIBLEGENTAMICIN <=1 SUSCEP TIBLELEVOFLOXACIN <=0.12 SUSCEPTIBLEMEROPENEM <=0.25 SUSCEPTIBLEPIPERACILLIN/TAZOBACTAM <=4 SUSCEPTIBLETETRACYCLINE <=1 SUSCEPTIBLE ISOLATES SUSCEPTIBLE TO TETRACYCLINE ARE ALSO SUSCEPTIBLE TO DOXYCYCLINE AND MINOCYCLINE.TOBRAMYCIN <=1 NICOL CEPTIBLETRIMETH/SULFA <=1/19 SUSCEPTIBLEERTAPENEM <=0.5 SUSCEPTIBLE Name Value Range Interpretation Code Description Data Tere rce(s) Supporting Document(s) ID Date Data Source [id number] 11/26/2020 08:37:27 AM EST [facility] SPECIMEN DESCRIPTION SITE LUMBA WOUNDSPECIAL REQUESTS NONEGRAM STAIN FEW (<10/LPF) WHITE BLOOD CELLS NO BACTERIACULTURE RESULTS RARE ESCHERICHIA COLI SHORTY NUMBERS CAN NOT BE DIRECTLY COMPARED ACROSS DIFFERENT ANTIBIOTICS. SHORTY VALUES ARE OCCASIONALLY USEFUL. SUSCEPTIBLE OR RESISTANT INTERPRETATIONS ALONE ARE SUFFICIENT FOR ANTIBIOTIC SELECTION IN THE GREAT MAJORITY OF INFECTIONS.REPORT STATUS FINAL 11/26/2020ORGANISM ESCHERICHIA COLIMETHOD MICAMIKACIN <=2 SUSCEPTIBLEAMOXICILLIN/CLAVULANIC AC 4/2 SUSCEPTIBLEAMPICILLIN 8 SUSCEPTIBLE ISOLATES SUSCEPTIBLE TO AMPICILLIN ARE ALSO SUSCEPTIBLE TO AMOXICILLIN.CEFOXITIN <=4 SUSCEPTIBLECEFTAZIDIME <=1 SUSCEPTIBLECEFTRIAXONE <=1 SUSCEPTIBLECIPROFLOXACIN <=0.25 SUSCEPTIBLEGENTAMICIN <=1 SUSCEPTIBLELEVOFLOXACIN <=0.12 SUSCEPTIBLEMEROPENEM <=0.25 SUSCEPTIBLEPIPERACILLIN/TAZOBACTAM <=4 SUSCEPTIBLETETRACYCLINE <=1 SUSCEPTIBLE ISOLATES SUSCEPTIBLE TO TETRACYCLINE ARE ALSO SUSCEPTIBLE TO DOXYCYCLINE AND MINOCYCLINE.TOBRAMYCIN <=1 SUSCEPTIBLETRIMETH/SULFA <=1/19 SUSCEPTIBLEERTAPENEM <=0.5 SUSCEPTIBLE Name Value Range Interpretation Code Description Data Tere rce(s) Supporting Document(s) ID Date Data Source [id number] 11/24/2020 11:20:27 AM EST [facility] Name Value Range Interpretation Code Description Data Tere rce(s) Supporting Document(s) POC GLUCOSE 204 mg/dL (70-99) H [facility] PERFORMED BY CLINICAL STAFF ID Date Data Source [id number] 11/24/2020 10:04:18 AM EST [facility] Name Value Range Interpretation Code Description Data Tere rce(s) Supporting Document(s) WBC 7.5 10*3/uL (4.1-11.0) [facility] RBC 2.60 10*6/uL (4.00-5.40) L [facility] HGB 7.4 g/dL (12.0-16.0) L [facility] HCT 22.8 % (36.0-47.0) L [facility] MCV 87.7 fL (80.0-95.0) [facility] MCH 28.4 pg (27.0-32.0) [facility] MCHC 32.4 g/dL (32.0-36.0) [facility] RDW 18.7 % (10.5-14.5) H [facility] PLT 514 10*3/uL (150-450) H [facility] MPV 8.3 fL (7.1-10.7) [facility] NEUT % 67.9 % (35.0-75.0) [facility] LYMPH % 10.5 % (16.0-52.0) L [facility] MONO % 11.9 % (0.0-8.0) H [facility] EOS % 8.3 % (0.0-5.0) H [facility] BASO % 1.4 % (0.0-4.0) [facility] NEUT # 5.1 10*3/uL (1.8-7.7) [facility] LYMPH # 0.8 10*3/uL (1.2-4.8) L [facility] MONO # 0.9 10*3/uL (0.0-0.8) H [facility] Eosinophils [#/volume] in Blood by Automated count 0.6 10*3/uL (0.0-0 .5) H [facility] BASO # 0.1 10*3/uL (0.0-0.2) [facility] ID Date Data Source [id number] 11/24/2020 09:41:20 AM EST [facility] Name Value Range Interpretation Code Description Data Tere rce(s) Supporting Document(s) SODIUM 137 mmol/L (136-145) [facility] POTASSIUM 4.2 mmol/L (3.6-5.2) [facility] CHLORIDE 101 mmol/L (100-108) [facility] CO2 27 mmol/L (22-31) [facility] ANION GAP 9 mmol/L (7-16) [facility] UREA NITROGEN 9 mg/dL (7-24) [facility] CREATININE 0.62 mg/dL (0.60-1.00) [facility] BUN/CREAT RATIO 14.5 RATIO (10.0-20.0) [facility] GLUCOSE 203 mg/dL (70-99) H [facility] CALCIUM 8.4 mg/dL (8.4-10.2) [facility] GFR >60 ml/min/1.73m2 (>59) [facility] GFR ( AMER) >60 ml/min/1.73m2 (>59) [facility] GFR INTERPRETATION [facility] --NORMAL KIDNEY FUNCTION OR MILD DISEASE - GFR >OR= 60CHRONIC KIDNEY DISEASE - GFR 15 - 59RENAL FAILURE - GFR <15 Est. GFR calculation based on the MDRDstudy equation, which assumes a steadystate for creatinine. Est. GFR should notbe used for medication dosing. ID Date Data Source [id number] 11/24/2020 08:14:41 AM EST [facility] Name Value Range Interpretation Code Description Data Tere rce(s) Supporting Document(s) POC GLUCOSE 205 mg/dL (70-99) H [facility] PERFORMED BY CLINICAL STAFF ID Date Data Source [id number] 11/24/2020 02:53:23 AM EST [facility] Name Value Range Interpretation Code Description Data Tere rce(s) Supporting Document(s) POC GLUCOSE 176 mg/dL (70-99) H [facility] NOTIFIED NURSEPERFORMED BY CLINICAL S TAFF ID Date Data Source [id number] 11/24/2020 01:24:00 AM EST [facility] Name Value Range Interpretation Code Description Data Tere rce(s) Supporting Document(s) POC GLUCOSE 157 mg/dL (70-99) H [facility] PERFORMED BY CLINICAL STAFF ID Date Data Source [id number] 11/23/2020 06:32:12 PM EST [facility] Name Value Range Interpretation Code Description Data Tere rce(s) Supporting Document(s) POC GLUCOSE 90 mg/dL (70-99) [facility] PERFORMED BY CLINICAL STAFF ID Date Data Source [id number] 11/29/2020 12:17:34 PM EST [facility] SPECIMEN DESCRIPTION PERIPHERALSP ECIAL REQUESTS NONECULTURE RESULTS NO GROWTH 6 DAYSREPORT STATUS FINAL 11/29/2020 Name Value Range Interpretation Code Description Data Tere rce(s) Supporting Document(s) ID Date Data Source [id number] 11/29/2020 12:17:34 PM EST [facility] SPECIMEN DESCRIPTION PERIPHERALSP ECIAL REQUESTS NONECULTURE RESULTS NO GROWTH 6 DAYSREPORT STATUS FINAL 11/29/2020 Name Value Range Interpretation Code Description Data Tere rce(s) Supporting Document(s) ID Date Data Source [id number] 11/23/2020 12:47:04 PM EST [facility] Name Value Range Interpretation Code Description Data Tere rce(s) Supporting Document(s) POC GLUCOSE 210 mg/dL (70-99) H [facility] NOTIFIED NURSEPERFORMED BY CLINICAL S TAFF ID Date Data Source [id number] 11/25/2020 09:56:14 AM EST [facility] SPECIMEN DESCRIPTION SURGICAL WOU NDSPECIAL REQUESTS NONEGRAM STAIN RARE (<1/LPF) WHITE BLOOD CELLS NO BACTERIACULTURE RESULTS MODERATE ESCHERICHIA COLI SHORTY NUMBERS CAN NOT BE DIRECTLY COMPARED ACROSS DIFFERENT ANTIBIOTICS. SHORTY VALUES ARE OCCA SIONALLY USEFUL. SUSCEPTIBLE OR RESISTANT INTERPRETATIONS ALONE ARE SUFFICIENT FOR ANTIBIOTIC SELECTION IN THE GREAT MAJORITY OF INFECTIONS.REPORT STATUS FINAL 11/25/2020ORGANISM ESCHERICHIA COLIMETHOD MICAMIKACIN <=2 SUSCEPTIBLEAMOXICILLIN/CLAVULANIC AC 4/2 SUSCEPTIBLEAMPICILLIN 8 SUSCEPTIBLE ISOLATES SUSCEPTIBLE TO AMPICILLIN ARE ALSO SUSCEPTIBLE TO AMOXICILLIN.CEFOXITIN <=4 SUSCEPTIBLECEFTAZIDIME <=1 SUSCEPTIBLECEFTRIAXONE <=1 SUSCEPTIBLECIPROFLOXACIN <=0.25 SUSCEPTIBLEGENTAMICIN <=1 SUSCEPTIBLELEVOFLOXACIN <=0.12 SUSCEPTIBLEMEROPENEM <=0.25 SUSCEPTIBLEPIPERACILLIN/TAZOBACTAM <=4 SUSCEPTIBLETETRACYCLINE <=1 SUSCEPTIBLE ISOLATES SUSCEPTIBLE TO TETRACYCLINE ARE ALSO SUSCEPTIBLE TO DOXYCYCLINE AND MINOCYCLINE.TOBRAMYCIN <=1 SUSCEPTIBLETRIMETH/SULFA <=1/19 SUSCEPTIBLEERTAPENEM <=0.5 SUSCEPTIBLE Name Value Range Interpretation Code Description Data Tere rce(s) Supporting Document(s) ID Date Data Source [id number] 11/25/2020 08:52:52 AM EST [facility] SPECIMEN DESCRIPTION SURGICAL WOU NDSPECIAL REQUESTS NONEGRAM STAIN RARE (<1/LPF) WHITE BLOOD CELLS RARE (<1/OIF) GRAM NEGATIVE RODSCULTURE RESULTS MODERATE ESCHERICHIA COLI SHORTY NUMBERS CAN NOT BE DIRECTLY COMPARED ACROSS DIFFERENT ANTIBIOTICS. SHORTY VALUES ARE OCCASIONALLY USEFUL. SUSCEPTIBLE OR RESISTANT INTERPRETATIONS ALONE ARE SUFFICIENT FOR ANTIBIOTIC SELECTION IN THE GREAT MAJORITY OF INFECTIONS.REPORT STATUS FINAL 11/25/2020ORGANISM ESCHERICHIA COLIMETHOD MICAMIKACIN <=2 SUSCEPTIBLEAMOXICILLIN/CLAVULANIC AC 8/4 SUSCEPTIBLEAMPICILLIN 8 SUSCEPTIBLE ISOLATES SUSCEPTIBLE TO AMPICILLIN ARE ALSO SUSCEPTIBLE TO AMOXICILLIN.CEFOXITIN <=4 SUSCEPTIBLECEFTAZIDIME <=1 SUSCEPTIBLECEFTRIAXONE <=1 SUSCEPTIBLECIPROFLOXACIN <=0.25 SUSCEPTIBLEGENTAMICIN <=1 SUSCEPTIBLELEVOFLOXACIN <=0.12 SUSCEPTIBLEMEROPENEM <=0.25 SUSCEPTIBLEPIPERACILLIN/TAZOBACTAM <=4 SUSCEPTIBLETETRACYCLINE <=1 SUSCEPTIBLE ISOLATES SUSCEPTIBLE TO TETRACYCLINE ARE ALSO SUSCEPTIBLE TO DOXYCYCLINE AND MINOCYCLINE.TOBRAMYCIN <=1 SUSCEPTIBLETRIMETH/SULFA <=1/19 SUSCEPTIBLEERTAPENEM <=0.5 SUSCEPTIBLE Name Value Range Interpretation Code Description Data Tere rce(s) Supporting Document(s) ID Date Data Source [id number] 11/23/2020 08:55:41 AM EST [facility] Name Value Range Interpretation Code Description Data Tere rce(s) Supporting Document(s) POC GLUCOSE 285 mg/dL (70-99) H [facility] NOTIFIED NURSEPERFORMED BY CLINICAL S TAFF ID Date Data Source [id number] 11/23/2020 10:24:41 AM EST [facility] Name Value Range Interpretation Code Description Data Tere rce(s) Supporting Document(s) SODIUM 133 mmol/L (136-145) L [facility] POTASSIUM 4.4 mmol/L (3.6-5.2) [facility] CHLORIDE 98 mmol/L (100-108) L [facility] CO2 24 mmol/L (22-31) [facility] ANION GAP 11 mmol/L (7-16) [facility] UREA NITROGEN 9 mg/dL (7-24) [facility] CREATININE 0.58 mg/dL (0.60-1.00) L [facility] BUN/CREAT RATIO 15.5 RATIO (10.0-20.0) [facility] GLUCOSE 263 mg/dL (70-99) H [facility] CALCIUM 8.8 mg/dL (8.4-10.2) [facility] GFR >60 ml/min/1.73m2 (>59) [facility] GFR ( AMER) >60 ml/min/1.73m2 (>59) [facility] GFR INTERPRETATION [facility] --NORMAL KIDNEY FUNCTION OR MILD DISEASE - GFR >OR= 60CHRONIC KIDNEY DISEASE - GFR 15 - 59RENAL FAILURE - GFR <15 Est. GFR calculation based on the MDRDstudy equation, which assumes a steadystate for creatinine. Est. GFR should notbe used for medication dosing. ID Date Data Source [id number] 11/23/2020 09:58:36 AM EST [facility] Name Value Range Interpretation Code Description Data Tere rce(s) Supporting Document(s) WBC 11.8 10*3/uL (4.1-11.0) H [facility] RBC 2.84 10*6/uL (4.00-5.40) L [facility] HGB 7.6 g/dL (12.0-16.0) L [facility] HCT 24.5 % (36.0-47.0) L [facility] MCV 86.1 fL (80.0-95.0) [facility] MCH 26.9 pg (27.0-32.0) L [facility] MCHC 31.2 g/dL (32.0-36.0) L [facility] RDW 19.1 % (10.5-14.5) H [facility] PLT 534 10*3/uL (150-450) H [facility] MPV 8.8 fL (7.1-10.7) [facility] ID Date Data Source [id number] 11/23/2020 03:22:59 AM EST [facility] Name Value Range Interpretation Code Description Data Tere rce(s) Supporting Document(s) POC GLUCOSE 194 mg/dL (70-99) H [facility] PERFORMED BY CLINICAL STAFF ID Date Data Source [id number] 11/22/2020 11:24:14 PM EST [facility] Name Value Range Interpretation Code Description Data Tere rce(s) Supporting Document(s) POC GLUCOSE 156 mg/dL (70-99) H [facility] NOTIFIED NURSEPERFORMED BY CLINICAL S TAFF ID Date Data Source [id number] 11/22/2020 11:24:14 PM EST [facility] Name Value Range Interpretation Code Description Data Tere rce(s) Supporting Document(s) POC GLUCOSE 132 mg/dL (70-99) H [facility] NOTIFIED NURSEPERFORMED BY CLINICAL S TAFF ID Date Data Source [id number] 11/22/2020 10:02:20 PM EST [facility] Name Value Range Interpretation Code Description Data Tere rce(s) Supporting Document(s) POC GLUCOSE 66 mg/dL (70-99) L [facility] NOTIFIED NURSEPERFORMED BY CLINICAL S TAFF ID Date Data Source [id number] 11/22/2020 06:13:03 PM EST [facility] Name Value Range Interpretation Code Description Data Tere rce(s) Supporting Document(s) POC GLUCOSE 75 mg/dL (70-99) [facility] NOTIFIED NURSEPERFORMED BY CLINICAL S TAFF ID Date Data Source [id number] 11/22/2020 12:26:06 PM EST [facility] Name Value Range Interpretation Code Description Data Tere rce(s) Supporting Document(s) POC GLUCOSE 292 mg/dL (70-99) H [facility] NOTIFIED NURSEPERFORMED BY CLINICAL S TAFF ID Date Data Source [id number] 11/22/2020 11:49:13 AM EST [facility] Name Value Range Interpretation Code Description Data Tere rce(s) Supporting Document(s) PHOSPHORUS 3.3 mg/dL (2.5-4.5) [facility] ID Date Data Source [id number] 11/22/2020 11:49:13 AM EST [facility] Name Value Range Interpretation Code Description Data Tere rce(s) Supporting Document(s) SODIUM 131 mmol/L (136-145) L [facility] POTASSIUM 4.0 mmol/L (3.6-5.2) [facility] CHLORIDE 97 mmol/L (100-108) L [facility] CO2 25 mmol/L (22-31) [facility] ANION GAP 9 mmol/L (7-16) [facility] UREA NITROGEN 11 mg/dL (7-24) [facility] CREATININE 0.65 mg/dL (0.60-1.00) [facility] BUN/CREAT RATIO 16.9 RATIO (10.0-20.0) [facility] GLUCOSE 363 mg/dL (70-99) H [facility] CALCIUM 8.1 mg/dL (8.4-10.2) L [facility] TOTAL PROTEIN 6.9 g/dL (6.4-8.2) [facility] ALBUMIN 2.4 g/dL (3.5-4.6) L [facility] GLOBULIN 4.5 g/dL (2.7-4.3) H [facility] ALB/GLOB RATIO 0.5 RATIO [facility] ALKALINE PHOSPHATASE 105 U/L (45-117) [facility] BILIRUBIN,TOTAL 0.4 mg/dL (0.0-1.0) [facility] PLEASE NOTE:Total bilirubin results may be falselyelevated in patients taking Eltrombopag. AST (SGOT) 12 U/L (11-39) [facility] ALT (SGPT) 11 U/L (12-78) L [facility] GFR >60 ml/min/1.73m2 (>59) [facility] GFR ( AMER) >60 ml/min/1.73m2 (>59) [facility] GFR INTERPRETATION [facility] --NORMAL KIDNEY FUNCTION OR MILD DISEASE - GFR >OR= 60CHRONIC KIDNEY DISEASE - GFR 15 - 59RENAL FAILURE - GFR <15 Est. GFR calculation based on the MDRDstudy equation, which assumes a steadystate for creatinine. Est. GFR should notbe used for medication dosing. ID Date Data Source [id number] 11/22/2020 11:49:13 AM EST [facility] Name Value Range Interpretation Code Description Data Tere rce(s) Supporting Document(s) MAGNESIUM 2.0 mg/dL (1.7-2.4) [facility] ID Date Data Source [id number] 11/22/2020 11:23:02 AM EST [facility] Name Value Range Interpretation Code Description Data Tere rce(s) Supporting Document(s) WBC 15.3 10*3/uL (4.1-11.0) H [facility] RBC 2.91 10*6/uL (4.00-5.40) L [facility] HGB 8.0 g/dL (12.0-16.0) L [facility] HCT 25.3 % (36.0-47.0) L [facility] MCV 86.8 fL (80.0-95.0) [facility] MCH 27.6 pg (27.0-32.0) [facility] MCHC 31.8 g/dL (32.0-36.0) L [facility] RDW 19.0 % (10.5-14.5) H [facility] PLT 525 10*3/uL (150-450) H [facility] MPV 8.1 fL (7.1-10.7) [facility] ID Date Data Source [id number] 11/22/2020 08:44:17 AM EST [facility] Name Value Range Interpretation Code Description Data Tere rce(s) Supporting Document(s) POC GLUCOSE 166 mg/dL (70-99) H [facility] PERFORMED BY CLINICAL STAFF ID Date Data Source [id number] 11/22/2020 03:23:51 AM EST [facility] Name Value Range Interpretation Code Description Data Tere rce(s) Supporting Document(s) POC GLUCOSE 197 mg/dL (70-99) H [facility] PERFORMED BY CLINICAL STAFF ID Date Data Source [id number] 11/22/2020 12:18:28 AM EST [facility] Name Value Range Interpretation Code Description Data Tere rce(s) Supporting Document(s) POC GLUCOSE 137 mg/dL (70-99) H [facility] PERFORMED BY CLINICAL STAFF ID Date Data Source [id number] 11/21/2020 11:42:57 PM EST [facility] Name Value Range Interpretation Code Description Data Tere rce(s) Supporting Document(s) POC GLUCOSE 115 mg/dL (70-99) H [facility] PERFORMED BY CLINICAL STAFF ID Date Data Source [id number] 11/21/2020 11:42:52 PM EST [facility] Name Value Range Interpretation Code Description Data Tere rce(s) Supporting Document(s) POC GLUCOSE 66 mg/dL (70-99) L [facility] PERFORMED BY CLINICAL STAFF ID Date Data Source [id number] 11/21/2020 05:38:59 PM EST [facility] Name Value Range Interpretation Code Description Data Tere rce(s) Supporting Document(s) POC GLUCOSE 212 mg/dL (70-99) H [facility] PERFORMED BY CLINICAL STAFF ID Date Data Source [id number] 11/21/2020 12:28:48 PM EST [facility] Name Value Range Interpretation Code Description Data Tere rce(s) Supporting Document(s) POC GLUCOSE 300 mg/dL (70-99) H [facility] NOTIFIED NURSEPERFORMED BY CLINICAL S TAFF ID Date Data Source [id number] 11/21/2020 08:20:06 AM EST [facility] Name Value Range Interpretation Code Description Data Tere rce(s) Supporting Document(s) POC GLUCOSE 147 mg/dL (70-99) H [facility] NOTIFIED NURSEPERFORMED BY CLINICAL S TAFF ID Date Data Source [id number] 11/21/2020 03:11:08 AM EST [facility] Name Value Range Interpretation Code Description Data Tere rce(s) Supporting Document(s) POC GLUCOSE 172 mg/dL (70-99) H [facility] PERFORMED BY CLINICAL STAFF ID Date Data Source [id number] 11/20/2020 10:10:12 PM EST [facility] Name Value Range Interpretation Code Description Data Tere rce(s) Supporting Document(s) POC GLUCOSE 177 mg/dL (70-99) H [facility] PERFORMED BY CLINICAL STAFF ID Date Data Source [id number] 11/20/2020 05:31:54 PM EST [facility] Name Value Range Interpretation Code Description Data Tere rce(s) Supporting Document(s) POC GLUCOSE 91 mg/dL (70-99) [facility] PERFORMED BY CLINICAL STAFF ID Date Data Source [id number] 11/20/2020 12:30:00 PM EST [facility] Name Value Range Interpretation Code Description Data Tere rce(s) Supporting Document(s) POC GLUCOSE 313 mg/dL (70-99) H [facility] PERFORMED BY CLINICAL STAFF ID Date Data Source [id number] 11/20/2020 09:09:54 AM EST [facility] Name Value Range Interpretation Code Description Data Tere rce(s) Supporting Document(s) POC GLUCOSE 131 mg/dL (70-99) H [facility] NOTIFIED NURSEPERFORMED BY CLINICAL S TAFF ID Date Data Source [id number] 11/20/2020 02:45:31 AM EST [facility] Name Value Range Interpretation Code Description Data Tere rce(s) Supporting Document(s) POC GLUCOSE 130 mg/dL (70-99) H [facility] NOTIFIED NURSEPERFORMED BY CLINICAL S TAFF ID Date Data Source [id number] 11/19/2020 11:08:05 PM EST [facility] Name Value Range Interpretation Code Description Data Tere rce(s) Supporting Document(s) POC GLUCOSE 131 mg/dL (70-99) H [facility] PERFORMED BY CLINICAL STAFF ID Date Data Source [id number] 11/19/2020 10:19:26 PM EST [facility] Name Value Range Interpretation Code Description Data Tere rce(s) Supporting Document(s) POC GLUCOSE 155 mg/dL (70-99) H [facility] NOTIFIED NURSEPERFORMED BY CLINICAL S TAFF ID Date Data Source [id number] 11/19/2020 10:19:26 PM EST [facility] Name Value Range Interpretation Code Description Data Tere rce(s) Supporting Document(s) POC GLUCOSE 66 mg/dL (70-99) L [facility] NOTIFIED NURSEPERFORMED BY CLINICAL S TAFF ID Date Data Source [id number] 11/19/2020 05:20:41 PM EST [facility] Name Value Range Interpretation Code Description Data Tere rce(s) Supporting Document(s) POC GLUCOSE 97 mg/dL (70-99) [facility] PERFORMED BY CLINICAL STAFF ID Date Data Source [id number] 11/19/2020 11:19:00 AM EST [facility] Name Value Range Interpretation Code Description Data Tere rce(s) Supporting Document(s) POC GLUCOSE 210 mg/dL (70-99) H [facility] NOTIFIED NURSEPERFORMED BY CLINICAL S TAFF ID Date Data Source [id number] 11/19/2020 08:04:54 AM EST [facility] Name Value Range Interpretation Code Description Data Tere rce(s) Supporting Document(s) POC GLUCOSE 167 mg/dL (70-99) H [facility] NOTIFIED NURSEPERFORMED BY CLINICAL S TAFF ID Date Data Source [id number] 11/19/2020 03:09:15 AM EST [facility] Name Value Range Interpretation Code Description Data Tere rce(s) Supporting Document(s) POC GLUCOSE 144 mg/dL (70-99) H [facility] PERFORMED BY CLINICAL STAFF ID Date Data Source [id number] 11/18/2020 10:11:50 PM EST [facility] Name Value Range Interpretation Code Description Data Tere rce(s) Supporting Document(s) GLUCOSE 450 mg/dL (70-99) HH [facility] RESULT(S) CALLED TO AND READ BACK BYTRAC Y 4MEM ON 11/18/2020 AT 2210 [place] [id number] ID Date Data Source [id number] 11/18/2020 09:40:49 PM EST [facility] Name Value Range Interpretation Code Description Data Tere rce(s) Supporting Document(s) POC GLUCOSE 468 mg/dL (70-99) HH [facility] PERFORMED BY CLINICAL STAFF ID Date Data Source [id number] 11/18/2020 07:03:42 PM EST [facility] Name Value Range Interpretation Code Description Data Tere rce(s) Supporting Document(s) POC GLUCOSE 355 mg/dL (70-99) H [facility] PERFORMED BY CLINICAL STAFF ID Date Data Source [id number] 11/18/2020 05:30:25 PM EST [facility] Name Value Range Interpretation Code Description Data Tere rce(s) Supporting Document(s) POC GLUCOSE 436 mg/dL (70-99) HH [facility] NOTIFIED NURSEPERFORMED BY CLINICAL S TAFF ID Date Data Source [id number] 11/18/2020 04:22:32 PM EST [facility] Name Value Range Interpretation Code Description Data Tere rce(s) Supporting Document(s) POC GLUCOSE 450 mg/dL (70-99) HH [facility] PERFORMED BY CLINICAL STAFF ID Date Data Source [id number] 11/18/2020 12:41:06 PM EST [facility] Name Value Range Interpretation Code Description Data Tere rce(s) Supporting Document(s) POC GLUCOSE 397 mg/dL (70-99) H [facility] PERFORMED BY CLINICAL STAFF ID Date Data Source [id number] 11/18/2020 08:01:04 AM EST [facility] Name Value Range Interpretation Code Description Data Tere rce(s) Supporting Document(s) POC GLUCOSE 240 mg/dL (70-99) H [facility] NOTIFIED NURSEPERFORMED BY CLINICAL S TAFF ID Date Data Source [id number] 11/18/2020 02:43:41 AM EST [facility] Name Value Range Interpretation Code Description Data Tere rce(s) Supporting Document(s) POC GLUCOSE 218 mg/dL (70-99) H [facility] PERFORMED BY CLINICAL STAFF ID Date Data Source [id number] 11/17/2020 10:14:11 PM EST [facility] Name Value Range Interpretation Code Description Data Tere rce(s) Supporting Document(s) POC GLUCOSE 102 mg/dL (70-99) H [facility] PERFORMED BY CLINICAL STAFF ID Date Data Source [id number] 11/17/2020 05:48:02 PM EST [facility] Name Value Range Interpretation Code Description Data Tere rce(s) Supporting Document(s) POC GLUCOSE 142 mg/dL (70-99) H [facility] PERFORMED BY CLINICAL STAFF ID Date Data Source [id number] 11/17/2020 12:40:43 PM EST [facility] Name Value Range Interpretation Code Description Data Tree rce(s) Supporting Document(s) POC GLUCOSE 112 mg/dL (70-99) H [facility] PERFORMED BY CLINICAL STAFF ID Date Data Source [id number] 11/17/2020 09:34:03 AM EST [facility] Name Value Range Interpretation Code Description Data Tere rce(s) Supporting Document(s) POC GLUCOSE 229 mg/dL (70-99) H [facility] PERFORMED BY CLINICAL STAFF ID Date Data Source [id number] 11/17/2020 02:52:16 AM EST [facility] Name Value Range Interpretation Code Description Data Tere rce(s) Supporting Document(s) POC GLUCOSE 230 mg/dL (70-99) H [facility] PERFORMED BY CLINICAL STAFF ID Date Data Source [id number] 11/16/2020 09:33:11 PM EST [facility] Name Value Range Interpretation Code Description Data Tere rce(s) Supporting Document(s) POC GLUCOSE 249 mg/dL (70-99) H [facility] NOTIFIED NURSEPERFORMED BY CLINICAL S TAFF ID Date Data Source [id number] 11/16/2020 07:49:51 PM EST [facility] Name Value Range Interpretation Code Description Data Tere rce(s) Supporting Document(s) POC GLUCOSE 182 mg/dL (70-99) H [facility] PERFORMED BY CLINICAL STAFF ID Date Data Source [id number] 11/16/2020 06:20:39 PM EST [facility] Name Value Range Interpretation Code Description Data Tere rce(s) Supporting Document(s) POC GLUCOSE 77 mg/dL (70-99) [facility] PERFORMED BY CLINICAL STAFF ID Date Data Source [id number] 11/16/2020 05:42:52 PM EST [facility] Name Value Range Interpretation Code Description Data Tere rce(s) Supporting Document(s) POC GLUCOSE 60 mg/dL (70-99) L [facility] PERFORMED BY CLINICAL STAFF ID Date Data Source [id number] 11/16/2020 05:42:52 PM EST [facility] Name Value Range Interpretation Code Description Data Tere rce(s) Supporting Document(s) POC GLUCOSE 32 mg/dL (70-99) LL [facility] PERFORMED BY CLINICAL STAFF ID Date Data Source [id number] 11/16/2020 03:09:09 PM EST [facility] Name Value Range Interpretation Code Description Data Tere rce(s) Supporting Document(s) POC GLUCOSE 103 mg/dL (70-99) H [facility] PERFORMED BY CLINICAL STAFF ID Date Data Source [id number] 11/16/2020 04:18:16 PM EST [facility] Name Value Range Interpretation Code Description Data Tere rce(s) Supporting Document(s) SODIUM 132 mmol/L (136-145) L [facility] POTASSIUM 4.9 mmol/L (3.6-5.2) [facility] CHLORIDE 97 mmol/L (100-108) L [facility] CO2 33 mmol/L (22-31) H [facility] ANION GAP 2 mmol/L (7-16) L [facility] UREA NITROGEN 14 mg/dL (7-24) [facility] CREATININE 0.75 mg/dL (0.60-1.00) [facility] BUN/CREAT RATIO 18.7 RATIO (10.0-20.0) [facility] GLUCOSE 123 mg/dL (70-99) H [facility] CALCIUM 8.5 mg/dL (8.4-10.2) [facility] GFR >60 ml/min/1.73m2 (>59) [facility] GFR ( AMER) >60 ml/min/1.73m2 (>59) [facility] GFR INTERPRETATION [facility] --NORMAL KIDNEY FUNCTION OR MILD DISEASE - GFR >OR= 60CHRONIC KIDNEY DISEASE - GFR 15 - 59RENAL FAILURE - GFR <15 Est. GFR calculation based on the MDRDstudy equation, which assumes a steadystate for creatinine. Est. GFR should notbe used for medication dosing. ID Date Data Source [id number] 11/16/2020 03:49:50 PM EST [facility] Name Value Range Interpretation Code Description Data Tere rce(s) Supporting Document(s) WBC 7.9 10*3/uL (4.1-11.0) [facility] RBC 2.73 10*6/uL (4.00-5.40) L [facility] HGB 8.0 g/dL (12.0-16.0) L [facility] HCT 24.6 % (36.0-47.0) L [facility] MCV 90.1 fL (80.0-95.0) [facility] MCH 29.4 pg (27.0-32.0) [facility] MCHC 32.7 g/dL (32.0-36.0) [facility] RDW 19.3 % (10.5-14.5) H [facility] PLT 454 10*3/uL (150-450) H [facility] MPV 8.3 fL (7.1-10.7) [facility] ID Date Data Source [id number] 11/16/2020 12:41:09 PM EST [facility] Name Value Range Interpretation Code Description Data Tere rce(s) Supporting Document(s) POC GLUCOSE 181 mg/dL (70-99) H [facility] PERFORMED BY CLINICAL STAFF ID Date Data Source [id number] 11/16/2020 09:38:35 AM EST [facility] Name Value Range Interpretation Code Description Data Tere rce(s) Supporting Document(s) POC GLUCOSE 185 mg/dL (70-99) H [facility] PERFORMED BY CLINICAL STAFF ID Date Data Source [id number] 11/16/2020 03:16:59 AM EST [facility] Name Value Range Interpretation Code Description Data Tere rce(s) Supporting Document(s) POC GLUCOSE 128 mg/dL (70-99) H [facility] NOTIFIED NURSEPERFORMED BY CLINICAL S TAFF ID Date Data Source [id number] 11/15/2020 08:55:21 PM EST [facility] Name Value Range Interpretation Code Description Data Tere rce(s) Supporting Document(s) POC GLUCOSE 188 mg/dL (70-99) H [facility] NOTIFIED NURSEPERFORMED BY CLINICAL S TAFF ID Date Data Source [id number] 11/15/2020 04:46:00 PM EST [facility] Name Value Range Interpretation Code Description Data Tere rce(s) Supporting Document(s) POC GLUCOSE 115 mg/dL (70-99) H [facility] PERFORMED BY CLINICAL STAFF ID Date Data Source [id number] 11/15/2020 12:41:44 PM EST [facility] Name Value Range Interpretation Code Description Data Tere rce(s) Supporting Document(s) POC GLUCOSE 199 mg/dL (70-99) H [facility] NOTIFIED NURSEPERFORMED BY CLINICAL S TAFF ID Date Data Source [id number] 11/15/2020 08:09:49 AM EST [facility] Name Value Range Interpretation Code Description Data Tere rce(s) Supporting Document(s) POC GLUCOSE 167 mg/dL (70-99) H [facility] NOTIFIED NURSEPERFORMED BY CLINICAL S TAFF ID Date Data Source [id number] 11/15/2020 03:13:29 AM EST [facility] Name Value Range Interpretation Code Description Data Tere rce(s) Supporting Document(s) POC GLUCOSE 204 mg/dL (70-99) H [facility] NOTIFIED NURSEPERFORMED BY CLINICAL S TAFF ID Date Data Source [id number] 11/14/2020 09:41:41 PM EST [facility] Name Value Range Interpretation Code Description Data Tere rce(s) Supporting Document(s) POC GLUCOSE 80 mg/dL (70-99) [facility] NOTIFIED NURSEPERFORMED BY CLINICAL S TAFF ID Date Data Source [id number] 11/14/2020 04:51:41 PM EST [facility] Name Value Range Interpretation Code Description Data Tere rce(s) Supporting Document(s) POC GLUCOSE 128 mg/dL (70-99) H [facility] PERFORMED BY CLINICAL STAFF ID Date Data Source [id number] 11/14/2020 04:48:00 PM EST [facility] DATE OF EXAM: 11/14/2020EXAM: Portable c hest INDICATION: COVID COMPARISON: No prior chest radiographs on the timeline. TECHNIQUE: AP semiupright. There is a limited degree of inspiration with minor accentuation of the pulmonary markings however no focal area of pneumonia is seen. The mediastinum, heart, and pulmonary vascularity are within normal limits. Professional interpretation performed at [facility] .End of diagnostic report for accession: [id number] Interpreted: Santiago Fraga MDTranscribed: 11/14/2020 04:48 PMSigned: 11/14/2020 04:48 PM Santiago Fraga MD [facility] # [id number] BILL # [id number] Name Value Range Interpretation Code Description Data Tere rce(s) Supporting Document(s) ID Date Data Source [id number] 11/14/2020 12:24:53 PM EST [facility] Name Value Range Interpretation Code Description Data Tere rce(s) Supporting Document(s) POC GLUCOSE 131 mg/dL (70-99) H [facility] NOTIFIED NURSEPERFORMED BY CLINICAL S TAFF ID Date Data Source [id number] 11/14/2020 12:04:42 PM EST [facility] Name Value Range Interpretation Code Description Data Tere rce(s) Supporting Document(s) FERRITIN @ 40 ng/mL (8-252) [facility] ID Date Data Source [id number] 11/14/2020 09:38:08 AM EST [facility] Name Value Range Interpretation Code Description Data Tere rce(s) Supporting Document(s) LDH 222 U/L (84-246) [facility] ID Date Data Source [id number] 11/14/2020 09:38:08 AM EST [facility] Name Value Range Interpretation Code Description Data Tere rce(s) Supporting Document(s) SODIUM 133 mmol/L (136-145) L [facility] POTASSIUM 5.8 mmol/L (3.6-5.2) H [facility] CHLORIDE 99 mmol/L (100-108) L [facility] CO2 29 mmol/L (22-31) [facility] ANION GAP 5 mmol/L (7-16) L [facility] UREA NITROGEN 11 mg/dL (7-24) [facility] CREATININE 0.68 mg/dL (0.60-1.00) [facility] BUN/CREAT RATIO 16.2 RATIO (10.0-20.0) [facility] GLUCOSE 352 mg/dL (70-99) H [facility] CALCIUM 8.4 mg/dL (8.4-10.2) [facility] GFR >60 ml/min/1.73m2 (>59) [facility] GFR ( AMER) >60 ml/min/1.73m2 (>59) [facility] GFR INTERPRETATION [facility] --NORMAL KIDNEY FUNCTION OR MILD DISEASE - GFR >OR= 60CHRONIC KIDNEY DISEASE - GFR 15 - 59RENAL FAILURE - GFR <15 Est. GFR calculation based on the MDRDstudy equation, which assumes a steadystate for creatinine. Est. GFR should notbe used for medication dosing. ID Date Data Source [id number] 11/14/2020 09:34:25 AM EST [facility] Name Value Range Interpretation Code Description Data Tere rce(s) Supporting Document(s) WBC 8.3 10*3/uL (4.1-11.0) [facility] RBC 2.83 10*6/uL (4.00-5.40) L [facility] HGB 8.2 g/dL (12.0-16.0) L [facility] HCT 25.4 % (36.0-47.0) L [facility] MCV 89.8 fL (80.0-95.0) [facility] MCH 29.1 pg (27.0-32.0) [facility] MCHC 32.4 g/dL (32.0-36.0) [facility] RDW 19.4 % (10.5-14.5) H [facility] PLT 407 10*3/uL (150-450) [facility] MPV 8.3 fL (7.1-10.7) [facility] ID Date Data Source [id number] 11/14/2020 09:20:06 AM EST [facility] Name Value Range Interpretation Code Description Data Tere rce(s) Supporting Document(s) D-DIMER,SENSITIVE 1.72 mg/L (<0.50) H [facility] Per ACP, an age adjusted D-dimer cutoff forLOW RISK patients over the age of 50 isrecommended.Cutoff = age (years) X 0.01 mg/L.Normal D-dimer values rise with age and datasuggests an age adjusted D-dimer cutoff levelimproves specificity for ruling out PE. ID Date Data Source [id number] 11/14/2020 08:35:37 AM EST [facility] Name Value Range Interpretation Code Description Data Tere rce(s) Supporting Document(s) POC GLUCOSE 361 mg/dL (70-99) H [facility] NOTIFIED NURSEPERFORMED BY CLINICAL S TAFF ID Date Data Source [id number] 11/14/2020 02:49:44 AM EST [facility] Name Value Range Interpretation Code Description Data Tere rce(s) Supporting Document(s) POC GLUCOSE 295 mg/dL (70-99) H [facility] NOTIFIED NURSEPERFORMED BY CLINICAL S TAFF ID Date Data Source [id number] 11/13/2020 10:00:40 PM EST [facility] Name Value Range Interpretation Code Description Data Tere rce(s) Supporting Document(s) POC GLUCOSE 154 mg/dL (70-99) H [facility] PERFORMED BY CLINICAL STAFF ID Date Data Source [id number] 11/13/2020 09:58:00 PM EST [facility] DATE OF EXAM: 11/13/2020EXAMINATION/ KUSUM HNIQUE:Ankle RIGHT 2V, Spine Lumbosacral 2V Or 3V INDICATION:PAIN S/P FALL COMPARISON:CT lumbar spine 11/10/2020. FINDINGS: Right ankle: AP and lateral views were performed. On lateral projection the ankle mortise is in appropriate alignment. Assessment of the ankle mortise is limited on the AP view secondary to the angle of imaging, cannot exclude mild widening laterally, correlate clinically. No discrete medial or lateral soft tissue swelling. There is normal bone mineralization. There is no evidence of fracture. Probable ankle joint effusion. Lumbar spine: Elder rods and threaded iliac and pedicular screws appear intact. No evidence of fracture or loosening of hardware. Intervertebral disc prostheses at L4-5 and L5-S1 appear intact. Lordosis pattern is preserved. Vertebral body heights appear preserved. IMPRESSION: Right ankle: No evidence of acute fracture. Questionable widening of the lateral ankle mortise, recommend four view ankle study for further evaluation. Lumbar spine: No fracture or loosening of hardware. No loss of vertebral body height or intervertebral disc space. X7End of diagnostic report for accession: [id number] Interpreted: Santiago Amezcua MDTranscribed: 11/13/2020 09:54 PMSigned: 11/13/2020 09:58 PM Santiago Amezcua MD [facility] # [id number] BILL # [id number] Name Value Range Interpretation Code Description Data Tere rce(s) Supporting Document(s) ID Date Data Source [id number] 11/13/2020 09:58:00 PM EST [facility] DATE OF EXAM: 11/13/2020EXAMINATION/ KUSUM HNIQUE:Ankle RIGHT 2V, Spine Lumbosacral 2V Or 3V INDICATION:PAIN S/P FALL COMPARISON:CT lumbar spine 11/10/2020. FINDINGS: Right ankle: AP and lateral views were performed. On lateral projection the ankle mortise is in appropriate alignment. Assessment of the ankle mortise is limited on the AP view secondary to the angle of imaging, cannot exclude mild widening laterally, correlate clinically. No discrete medial or lateral soft tissue swelling. There is normal bone mineralization. There is no evidence of fracture. Probable ankle joint effusion. Lumbar spine: Elder rods and threaded iliac and pedicular screws appear intact. No evidence of fracture or loosening of hardware. Intervertebral disc prostheses at L4-5 and L5-S1 appear intact. Lordosis pattern is preserved. Vertebral body heights appear preserved. IMPRESSION: Right ankle: No evidence of acute fracture. Questionable widening of the lateral ankle mortise, recommend four view ankle study for further evaluation. Lumbar spine: No fracture or loosening of hardware. No loss of vertebral body height or intervertebral disc space. X7End of diagnostic report for accession: [id number] Interpreted: Santiago Amezcua MDTranscribed: 11/13/2020 09:54 PMSigned: 11/13/2020 09:58 PM Santiago Amezcua MD [facility] # [id number] BILL # [id number] Name Value Range Interpretation Code Description Data Tere rce(s) Supporting Document(s) ID Date Data Source [id number] 11/13/2020 06:40:15 PM EST [facility] Name Value Range Interpretation Code Description Data Tere rce(s) Supporting Document(s) POC GLUCOSE 83 mg/dL (70-99) [facility] PERFORMED BY CLINICAL STAFF ID Date Data Source [id number] 11/13/2020 06:16:13 PM EST [facility] Name Value Range Interpretation Code Description Data Tere rce(s) Supporting Document(s) POC GLUCOSE 82 mg/dL (70-99) [facility] PERFORMED BY CLINICAL STAFF ID Date Data Source [id number] 11/13/2020 05:44:18 PM EST [facility] Name Value Range Interpretation Code Description Data Tere rce(s) Supporting Document(s) POC GLUCOSE 69 mg/dL (70-99) L [facility] PERFORMED BY CLINICAL STAFF ID Date Data Source [id number] 11/13/2020 05:13:24 PM EST [facility] Name Value Range Interpretation Code Description Data Tere rce(s) Supporting Document(s) POC GLUCOSE 51 mg/dL (70-99) L [facility] PERFORMED BY CLINICAL STAFF ID Date Data Source [id number] 11/13/2020 12:26:13 PM EST [facility] Name Value Range Interpretation Code Description Data Tere rce(s) Supporting Document(s) POC GLUCOSE 262 mg/dL (70-99) H [facility] NOTIFIED NURSEPERFORMED BY CLINICAL S TAFF ID Date Data Source [id number] 11/13/2020 08:26:14 AM EST [facility] Name Value Range Interpretation Code Description Data Tere rce(s) Supporting Document(s) POC GLUCOSE 211 mg/dL (70-99) H [facility] NOTIFIED NURSEPERFORMED BY CLINICAL S TAFF ID Date Data Source [id number] 11/13/2020 02:53:44 AM EST [facility] Name Value Range Interpretation Code Description Data Tere rce(s) Supporting Document(s) POC GLUCOSE 232 mg/dL (70-99) H [facility] PERFORMED BY CLINICAL STAFF ID Date Data Source [id number] 11/12/2020 09:03:37 PM EST [facility] Name Value Range Interpretation Code Description Data Tere rce(s) Supporting Document(s) POC GLUCOSE 251 mg/dL (70-99) H [facility] PERFORMED BY CLINICAL STAFF ID Date Data Source [id number] 11/12/2020 05:13:08 PM EST [facility] Name Value Range Interpretation Code Description Data Tere rce(s) Supporting Document(s) POC GLUCOSE 277 mg/dL (70-99) H [facility] PERFORMED BY CLINICAL STAFF ID Date Data Source [id number] 11/12/2020 12:47:13 PM EST [facility] Name Value Range Interpretation Code Description Data Tere rce(s) Supporting Document(s) POC GLUCOSE 57 mg/dL (70-99) L [facility] PERFORMED BY CLINICAL STAFF ID Date Data Source [id number] 11/12/2020 07:49:48 AM EST [facility] Name Value Range Interpretation Code Description Data Tere rce(s) Supporting Document(s) POC GLUCOSE 246 mg/dL (70-99) H [facility] PERFORMED BY CLINICAL STAFF ID Date Data Source [id number] 11/12/2020 02:44:04 AM EST [facility] Name Value Range Interpretation Code Description Data Tere rce(s) Supporting Document(s) POC GLUCOSE 75 mg/dL (70-99) [facility] PERFORMED BY CLINICAL STAFF ID Date Data Source [id number] 11/11/2020 10:50:50 PM EST [facility] Name Value Range Interpretation Code Description Data Tere rce(s) Supporting Document(s) POC GLUCOSE 118 mg/dL (70-99) H [facility] NOTIFIED NURSEPERFORMED BY CLINICAL S TAFF ID Date Data Source [id number] 11/11/2020 07:06:03 PM EST [facility] Name Value Range Interpretation Code Description Data Tere rce(s) Supporting Document(s) POC GLUCOSE 387 mg/dL (70-99) H [facility] PERFORMED BY CLINICAL STAFF ID Date Data Source [id number] 11/11/2020 06:14:29 PM EST [facility] Name Value Range Interpretation Code Description Data Tere rce(s) Supporting Document(s) POC GLUCOSE 419 mg/dL (70-99) HH [facility] PERFORMED BY CLINICAL STAFF ID Date Data Source [id number] 11/11/2020 02:52:53 PM EST [facility] Name Value Range Interpretation Code Description Data Tere rce(s) Supporting Document(s) POC GLUCOSE 399 mg/dL (70-99) H [facility] PERFORMED BY CLINICAL STAFF ID Date Data Source [id number] 11/11/2020 12:48:46 PM EST [facility] Name Value Range Interpretation Code Description Data Tere rce(s) Supporting Document(s) POC GLUCOSE 351 mg/dL (70-99) H [facility] PERFORMED BY CLINICAL STAFF ID Date Data Source [id number] 11/11/2020 11:32:34 AM EST [facility] Name Value Range Interpretation Code Description Data Tere rce(s) Supporting Document(s) POC GLUCOSE 416 mg/dL (70-99) [facility] PERFORMED BY CLINICAL STAFF ID Date Data Source [id number] 11/11/2020 10:30:00 AM EST [facility] Name Value Range Interpretation Code Description Data Tere rce(s) Supporting Document(s) SARS coronavirus 2 RNA [Presence] in Res piratory specimen by [facility] with probe detection [facility] This lab was reported by [facility]. ID Date Data Source [id number] 11/11/2020 03:56:53 PM EST Lab [facility] lindsay [facility] Name Value Range Interpretation Code Description Data Tere rce(s) Supporting Document(s) SPECIMEN DESCRIPTION Lab [facility] n[facility] of [place] COVID19 RESULT (NDET) A Lab [facility] of [facility] THIS ASSAY AMPLIFIES AND DETECTSTHE TARG ET RNA USING REAL-TIME PCR. COMMENT [facility] [place] LABORATORY [facility] OF [place] APPROVED B Y THE [place]SDOH. THE [place] FOODAND DRUG ADMINISTRATION HAS NOT APPROVEDTHIS TEST. NEGATIVE RESULTS DO NOT [id number] INFECTION AND SHOULD NOT BEUSED THE SOLE BASIS FOR CLINICALDIAGNOSIS OR PATIENT MANAGEMENT DECISIONS.RESULTS READ BACK BY BRIGITTE AT 6SIR AT 1554. RESULTS EMAILED TO IC AT 1458. [id number] [id number]. FIRST TEST [facility] [place] [facility] [place] SYMPTOMATIC [facility] of [place] DATE OF SYMPT ONSET Lab [facility]ian ce of [place] HOSPITALIZED Lab [facility] of [facility] ICU [facility] of [place] CONGREGATE CARE SET Lab [facility] of [place] [facility] [place] ID Date Data Source [id number] 11/11/2020 09:05:23 AM EST [facility] [place] Name Value Range Interpretation Code Description Data Tere rce(s) Supporting Document(s) POC GLUCOSE 270 mg/dL (70-99) H [facility] of [place] PERFORMED BY CLINICAL STAFF ID Date Data Source [id number] 11/11/2020 03:14:24 AM EST [facility]say [facility] Name Value Range Interpretation Code Description Data Tere rce(s) Supporting Document(s) POC GLUCOSE 296 mg/dL (70-99) H [facility] of [place] Y PERFORMED BY CLINICAL STAFF ID Date Data Source [id number] 11/10/2020 10:05:27 PM EST Lab [facility] Name Value Range Interpretation Code Description Data Tere rce(s) Supporting Document(s) POC GLUCOSE 167 mg/dL (70-99) H [facility] of [place] Y PERFORMED BY CLINICAL STAFF ID Date Data Source [id number] 11/10/2020 05:37:41 PM EST [facility]say [facility] Name Value Range Interpretation Code Description Data Tere rce(s) Supporting Document(s) POC GLUCOSE 81 mg/dL (70-99) [facility] [place] Y PERFORMED BY CLINICAL STAFF ID Date Data Source [id number] 11/10/2020 01:17:00 PM EST [facility] DATE OF EXAM: 11/10/2020CT OF THE LUMBAR SPINE WITHOUT INTRAVENOUS CONTRAST. HISTORY: Status post spine surgery COMPARISON: Intraoperative fluoroscopic spot images 11/06/2020 TECHNIQUE: Multiple noncontrast axial images were obtained of the lumbar spine without the administration of intravenous contrast. Sagittal and coronal reformatted images were provided. One or more of the following dose reduction techniques were utilized in effectively lowering the radiation dose for this examination: Automated Exposure Control, Adjustment of the mA and/or kV according to patient size, or Iterative reconstruction. FINDINGS: Vertebral body height is maintained. The patient is status post transpedicular screw and paraspinal dora fixation extending from L3 to S1. There are intervertebral disc prostheses at the L3-L4 and L4-L5 levels. There is grade 2 anterolisthesis at L5-S1 measuring approximately 10 mm. There is endplate sclerosis at the L5-S1 level with loss of intervertebral disc height. Bilateral iliac ala screws are also visualized. The visualized surgical screws are appropriately positioned. Nondisplaced linear fracture lines are seen involving the sacrum bilaterally, in close proximity to the sacral screws. There are lytic deformities seen involving the posterior aspect of bilateral iliac ala, likely related to surgical intervention. Post laminectomy changes are seen at L3, L4, and L5. The re is fluid and foci of air within the post laminectomy bed, likely related to patient's recent surgical intervention. There is limited evaluation of the spinal canal in the location of the surgical hardware due to streak artifact. The visualized portion of the spinal canal is otherwise grossly patent. There is apparent severe bilateral foraminal narrowing at L5-S1, primarily related to anterolisthesis. Aortic vascular calcifications are noted. IMPRESSION: Status post transpedicular screw and paraspinal dora fixation extending from L3 to S1 with recent postsurgical changes. There is grade 2 anterolisthesis at L5-S1 with associated severe bilateral foraminal narrowing. Nondisplaced fractures involving the sacrum, in close proximity to bilateral sacral screws. Findings discussed with Mary KELLEY of the neurosurgical service at 1:15 PM on 11/10/2020 with understanding and verification. Professional interpretation performed at [facility] .End of diagnostic report for accession: [id number] Interpreted: Armando Vu MDTranscribed: 11/10/2020 01:04 PMSigned: 11/10/2020 01:17 PM Armando Vu MD [facility] # [id number] BILL # [id number] Name Value Range Interpretation Code Description Data Tere rce(s) Supporting Document(s) ID Date Data Source [id number] 11/10/2020 12:21:05 PM EST [facility] Name Value Range Interpretation Code Description Data Tere rce(s) Supporting Document(s) POC GLUCOSE 146 mg/dL (70-99) H [facility] of [place] Y PERFORMED BY CLINICAL STAFF ID Date Data Source [id number] 11/10/2020 07:58:19 AM EST [facility]say [facility] Name Value Range Interpretation Code Description Data Tere rce(s) Supporting Document(s) POC GLUCOSE 328 mg/dL (70-99) H [facility] of [place] Y PERFORMED BY CLINICAL STAFF ID Date Data Source [id number] 11/10/2020 06:16:42 AM EST [facility] [place] Name Value Range Interpretation Code Description Data Tere rce(s) Supporting Document(s) POC GLUCOSE 334 mg/dL (70-99) H [facility] [place] PERFORMED BY CLINICAL STAFF ID Date Data Source [id number] 11/09/2020 11:59:46 PM EST [facility] [place] Name Value Range Interpretation Code Description Data Tere rce(s) Supporting Document(s) POC GLUCOSE 173 mg/dL (70-99) H [facility] [place] PERFORMED BY CLINICAL STAFF ID Date Data Source [id number] 11/09/2020 10:51:38 PM EST [facility] [place] Name Value Range Interpretation Code Description Data Tere rce(s) Supporting Document(s) POC GLUCOSE 121 mg/dL (70-99) H [facility] [place] PERFORMED BY CLINICAL STAFF ID Date Data Source [id number] 11/09/2020 10:08:53 PM EST [facility] [place] Name Value Range Interpretation Code Description Data Tere rce(s) Supporting Document(s) POC GLUCOSE 114 mg/dL (70-99) H [facility] [place] PERFORMED BY CLINICAL STAFF ID Date Data Source [id number] 11/09/2020 09:12:37 PM EST [facility] [place] Name Value Range Interpretation Code Description Data Tere rce(s) Supporting Document(s) POC GLUCOSE 63 mg/dL (70-99) L [facility] [place] PERFORMED BY CLINICAL STAFF ID Date Data Source [id number] 11/09/2020 06:01:04 PM EST [facility] [place] Name Value Range Interpretation Code Description Data Tere rce(s) Supporting Document(s) POC GLUCOSE 87 mg/dL (70-99) [facility] [place] NOTIFIED NURSEPERFORMED BY CLINICAL S TAFF ID Date Data Source [id number] 11/09/2020 05:32:04 PM EST [facility] [place] Name Value Range Interpretation Code Description Data Tere rce(s) Supporting Document(s) POC GLUCOSE 60 mg/dL (70-99) L [facility] [place] NOTIFIED NURSEPERFORMED BY CLINICAL S TAFF ID Date Data Source [id number] 11/09/2020 12:27:55 PM EST [facility] [place] Name Value Range Interpretation Code Description Data Tere rce(s) Supporting Document(s) POC GLUCOSE 142 mg/dL (70-99) H [facility] [place] NOTIFIED NURSEPERFORMED BY CLINICAL S RADHA ID Date Data Source [id number] 11/09/2020 08:56:18 AM EST [facility] [place] Name Value Range Interpretation Code Description Data Tere rce(s) Supporting Document(s) SODIUM 138 mmol/L (136-145) [facility] [place] POTASSIUM 4.2 mmol/L (3.6-5.2) [facility] [place] CHLORIDE 104 mmol/L (100-108) [facility] [place] CO2 28 mmol/L (22-31) [facility] [place] ANION GAP 6 mmol/L (7-16) L [facility] [place] UREA NITROGEN 15 mg/dL (7-24) [facility] [place] CREATININE 0.61 mg/dL (0.60-1.00) [facility] [place] BUN/CREAT RATIO 24.6 RATIO (10.0-20.0) H [facility] [place] GLUCOSE 308 mg/dL (70-99) H [facility] [place] CALCIUM 7.8 mg/dL (8.4-10.2) L [facility] [place] GFR >60 ml/min/1.73m2 (>59) [facility] [place] GFR ( AMER) >60 ml/min/1.73m2 (>59) [facility] [place] GFR INTERPRETATION [facility] [place] --NORMAL KIDNEY FUNCTION OR MILD DISEASE - GFR >OR= 60CHRONIC KIDNEY DISEASE - GFR 15 - 59RENAL FAILURE - GFR <15 Est. GFR calculation based on the MDRDstudy equation, which assumes a steadystate for creatinine. Est. GFR should notbe used for medication dosing. ID Date Data Source [id number] 11/09/2020 08:35:10 AM EST [facility] [place] Name Value Range Interpretation Code Description Data Tere rce(s) Supporting Document(s) WBC 8.6 10*3/uL (4.1-11.0) [facility] [place] RBC 2.70 10*6/uL (4.00-5.40) L [facility] [place] HGB 8.1 g/dL (12.0-16.0) L [facility] [place] HCT 24.3 % (36.0-47.0) L [facility] [place] MCV 90.1 fL (80.0-95.0) [facility] [place] MCH 30.1 pg (27.0-32.0) [facility] [place] MCHC 33.4 g/dL (32.0-36.0) [facility] [place] RDW 20.2 % (10.5-14.5) H [facility] [place] PLT 202 10*3/uL (150-450) [facility] [place] MPV 8.7 fL (7.1-10.7) [facility] [place] ID Date Data Source [id number] 11/09/2020 07:23:28 AM EST [facility] [place] Name Value Range Interpretation Code Description Data Tere rce(s) Supporting Document(s) POC GLUCOSE 297 mg/dL (70-99) H [facility] [place] NOTIFIED NURSEPERFORMED BY CLINICAL S TAFF ID Date Data Source [id number] 11/08/2020 11:09:23 PM EST [facility] [place] Name Value Range Interpretation Code Description Data Tere rce(s) Supporting Document(s) POC GLUCOSE 253 mg/dL (70-99) H [facility] [place] PERFORMED BY CLINICAL STAFF ID Date Data Source [id number] 11/08/2020 05:35:30 PM EST [facility] [place] Name Value Range Interpretation Code Description Data Tere rce(s) Supporting Document(s) POC GLUCOSE 138 mg/dL (70-99) H [facility] [place] PERFORMED BY CLINICAL STAFF ID Date Data Source [id number] 11/11/2020 03:41:00 PM EST [facility] maru Santiago, [facility] [id number] [facility], [place] [address]AILLMRO NAME: GERALD MESA OF : 1975REPORT: CONSULTATIONPATIENT NUMBER: [id number] STATUS: IPMEDICAL RECORD NUMBER: [id number]: 01INTERNAL MEDICINE CONSULTATIONDATE OF CONSULTATION:REFERRING PHYSICIAN: BRENNAN Mcguire FOR CONSULTATION: Diabetes management.HISTORY OF PRESENT ILLNESS: Ms. Eli Mesa is a [id number], who has undergone spinal fusion with instrumentation on 11/06/2020.The patient's blood sugar running high and medicine team consulted.The patient has history of diabetes mellitus for almost 35 years. At home,she is on Basaglar 12 units and sliding scale insulin. The patient statedthat her physician has told that if sugars remain high, she can increase 2units every 3 days.. Denies any chest pain or shortness of breath. Deniesany urinary or bowel complaints. The patient's blood sugar running high inthe range of upper 400.PAST MEDICAL HISTORY: Diabetes mellitus type 1.SOCIAL HISTORY: She denies any smoking or alcohol abuse.FAMILY HISTORY: No history of diabetes.REVIEW OF SYSTEMS: No headache. All nine organ systems are negative.PHYSICAL EXAMINATION: Vitals: Temperature 36.8, respiratory rate 18,heart rate 81, blood pressure 107/65. General: Lying comfortably, not indistress. HEENT: Normocephalic, atraumatic. CVS: S1, S2 regular. Chest: Bilateral clear air entry. Abdomen: Soft, nontender. QUALITY CONTROL ANALYST: Awakeand alert.LABORATORY DATA: Sodium 139, potassium 3.5. WBC 9.8, hemoglobin 7.4. ASSESSMENT AND PLAN: A 45-year-old female, who is status post spinalfusion surgery with history of type 1 diabetes, who is now having highblood sugars.1. Hyperglycemia: The patient has been restarted on Lantus. We will give 16 units x1 dose. Also, put on sliding scale insulin with a.c. and h.s. coverage. Blood sugars now running down. Anion gap within normal limits. The patient was on D5W that has been discontinued.2. Degenerative spondylolisthesis: Has undergone lumbar interbody fusion with instrumentation management as per Orthopedics.Thanks for allowing us in taking care of this patient. We will continue tofollow.DICTATED BY: Tanja Santiago, MDDictated: 11/08/2020 15:20DT: 11/08/2020 15:23Job #: [id number]: [facility] computer generated reports are notconfirmed or authenticated unless they are signed by the providerElectronically Authenticated by:TANJA SANTIAGO MD On 11/11/2020 03:42 PM EST Name Value Range Interpretation Code Description Data Tere rce(s) Supporting Document(s) ID Date Data Source [id number] 11/08/2020 11:50:48 AM EST [facility] [place] Name Value Range Interpretation Code Description Data Tere rce(s) Supporting Document(s) POC GLUCOSE 175 mg/dL (70-99) H [facility] [place] PERFORMED BY CLINICAL STAFF ID Date Data Source [id number] 11/08/2020 09:18:41 AM EST [facility] [place] Name Value Range Interpretation Code Description Data Tere rce(s) Supporting Document(s) POC GLUCOSE 250 mg/dL (70-99) H [facility] [place] PERFORMED BY CLINICAL STAFF ID Date Data Source [id number] 11/08/2020 09:27:37 AM EST [facility] [place] Name Value Range Interpretation Code Description Data Tere rce(s) Supporting Document(s) SODIUM 139 mmol/L (136-145) [facility] [place] POTASSIUM 3.5 mmol/L (3.6-5.2) L [facility] [place] CHLORIDE 105 mmol/L (100-108) [facility] [place] CO2 28 mmol/L (22-31) [facility] [place] ANION GAP 6 mmol/L (7-16) L [facility] [place] UREA NITROGEN 14 mg/dL (7-24) [facility] [place] CREATININE 0.73 mg/dL (0.60-1.00) [facility] [place] BUN/CREAT RATIO 19.2 RATIO (10.0-20.0) [facility] [place] GLUCOSE 313 mg/dL (70-99) H [facility] [place] CALCIUM 8.0 mg/dL (8.4-10.2) L [facility] [place] GFR >60 ml/min/1.73m2 (>59) [facility] [place] GFR ( AMER) >60 ml/min/1.73m2 (>59) [facility] [place] GFR INTERPRETATION [facility] [place] --NORMAL KIDNEY FUNCTION OR MILD DISEASE - GFR >OR= 60CHRONIC KIDNEY DISEASE - GFR 15 - 59RENAL FAILURE - GFR <15 Est. GFR calculation based on the MDRDstudy equation, which assumes a steadystate for creatinine. Est. GFR should notbe used for medication dosing. ID Date Data Source [id number] 11/08/2020 08:56:55 AM EST [facility] [place] Name Value Range Interpretation Code Description Data Tere rce(s) Supporting Document(s) WBC 9.8 10*3/uL (4.1-11.0) [facility] [place] RBC 2.49 10*6/uL (4.00-5.40) L [facility] [place] HGB 7.4 g/dL (12.0-16.0) L [facility] [place] HCT 22.1 % (36.0-47.0) L [facility] [place] MCV 88.8 fL (80.0-95.0) [facility] [place] MCH 29.9 pg (27.0-32.0) [facility] [place] MCHC 33.7 g/dL (32.0-36.0) [facility] [place] RDW 20.2 % (10.5-14.5) H [facility] [place] PLT 180 10*3/uL (150-450) [facility] [place] MPV 8.7 fL (7.1-10.7) [facility] ID Date Data Source [id number] 11/08/2020 07:36:28 AM EST [facility] [place] Name Value Range Interpretation Code Description Data Tere rce(s) Supporting Document(s) POC GLUCOSE 380 mg/dL (70-99) H [facility] [place] PERFORMED BY CLINICAL STAFF ID Date Data Source [id number] 11/08/2020 06:22:36 AM EST [facility] [place] Name Value Range Interpretation Code Description Data Tere rce(s) Supporting Document(s) POC GLUCOSE 481 mg/dL (70-99) HH [facility] [place] NOTIFIED NURSEPERFORMED BY CLINICAL S TAFF ID Date Data Source [id number] 11/08/2020 04:16:53 AM EST [facility] [place] Name Value Range Interpretation Code Description Data Tere rce(s) Supporting Document(s) POC GLUCOSE 452 mg/dL (70-99) HH [facility] [place] PERFORMED BY CLINICAL STAFF ID Date Data Source [id number] 11/08/2020 03:12:16 AM EST [facility] [place] Name Value Range Interpretation Code Description Data Tere rce(s) Supporting Document(s) POC GLUCOSE 452 mg/dL (70-99) HH [facility] [place] PERFORMED BY CLINICAL STAFF ID Date Data Source [id number] 11/08/2020 02:08:56 AM EST [facility] [place] Name Value Range Interpretation Code Description Data Tere rce(s) Supporting Document(s) POC GLUCOSE 429 mg/dL (70-99) HH [facility] [place] NOTIFIED NURSEPERFORMED BY CLINICAL S TAFF ID Date Data Source [id number] 11/07/2020 10:49:41 PM EST [facility] [place] Name Value Range Interpretation Code Description Data Tere rce(s) Supporting Document(s) POC GLUCOSE 166 mg/dL (70-99) H [facility] [place] [facility] PERFORMED BY CLINICAL STAFF ID Date Data Source [id number] 11/07/2020 10:49:36 PM EST [facility] [place] Name Value Range Interpretation Code Description Data Tere rce(s) Supporting Document(s) POC GLUCOSE 169 mg/dL (70-99) H [facility] [place] PERFORMED BY CLINICAL STAFF ID Date Data Source [id number] 11/07/2020 10:49:17 PM EST [facility] [place] Name Value Range Interpretation Code Description Data Tere rce(s) Supporting Document(s) POC GLUCOSE 48 mg/dL (70-99) LL [facility] [place] PERFORMED BY CLINICAL STAFF ID Date Data Source [id number] 11/07/2020 09:52:14 PM EST [facility] [place] Name Value Range Interpretation Code Description Data Tere rce(s) Supporting Document(s) GLUCOSE 51 mg/dL (70-99) L [facility] [place] ID Date Data Source [id number] 11/07/2020 10:49:11 PM EST [facility] [place] Name Value Range Interpretation Code Description Data Tere rce(s) Supporting Document(s) POC GLUCOSE 32 mg/dL (70-99) LL [facility] [place] NOTIFIED NURSEPERFORMED BY CLINICAL S TAFF ID Date Data Source [id number] 11/07/2020 08:55:28 PM EST [facility] [place] Name Value Range Interpretation Code Description Data Tere rce(s) Supporting Document(s) POC GLUCOSE 20 mg/dL (70-99) LL [facility] [place] NOTIFIED NURSEPERFORMED BY CLINICAL S TAFF ID Date Data Source [id number] 11/07/2020 05:33:24 PM EST [facility] [place] Name Value Range Interpretation Code Description Data Tere rce(s) Supporting Document(s) POC GLUCOSE 151 mg/dL (70-99) H [facility] [place] NOTIFIED NURSEPERFORMED BY CLINICAL S TAFF ID Date Data Source [id number] 11/07/2020 12:55:03 PM EST [facility] [place] Name Value Range Interpretation Code Description Data Tere rce(s) Supporting Document(s) POC GLUCOSE 177 mg/dL (70-99) H [facility] [place] NOTIFIED NURSEPERFORMED BY CLINICAL S TAFF ID Date Data Source [id number] 11/07/2020 08:50:48 AM EST [facility] [place] Name Value Range Interpretation Code Description Data Tere rce(s) Supporting Document(s) POC GLUCOSE 231 mg/dL (70-99) H [facility] [place] NOTIFIED NURSEPERFORMED BY CLINICAL S TAFF ID Date Data Source [id number] 11/07/2020 08:39:35 AM EST [facility] [place] Name Value Range Interpretation Code Description Data Tere rce(s) Supporting Document(s) SODIUM 138 mmol/L (136-145) [facility] [place] POTASSIUM 3.8 mmol/L (3.6-5.2) [facility] [place] CHLORIDE 105 mmol/L (100-108) [facility] [place] CO2 22 mmol/L (22-31) [facility] [place] ANION GAP 11 mmol/L (7-16) [facility] [place] UREA NITROGEN 10 mg/dL (7-24) [facility] [place] CREATININE 0.65 mg/dL (0.60-1.00) [facility] [place] BUN/CREAT RATIO 15.4 RATIO (10.0-20.0) [facility] [place] GLUCOSE 233 mg/dL (70-99) H [facility] [place] CALCIUM 8.1 mg/dL (8.4-10.2) L [facility] [place] GFR >60 ml/min/1.73m2 (>59) [facility] [place] GFR ( AMER) >60 ml/min/1.73m2 (>59) [facility] [place] GFR INTERPRETATION [facility] [place] --NORMAL KIDNEY FUNCTION OR MILD DISEASE - GFR >OR= 60CHRONIC KIDNEY DISEASE - GFR 15 - 59RENAL FAILURE - GFR <15 Est. GFR calculation based on the MDRDstudy equation, which assumes a steadystate for creatinine. Est. GFR should notbe used for medication dosing. ID Date Data Source [id number] 11/07/2020 08:17:32 AM EST [facility] [place] Name Value Range Interpretation Code Description Data Tere rce(s) Supporting Document(s) WBC 13.7 10*3/uL (4.1-11.0) H [facility] [place] RBC 2.70 10*6/uL (4.00-5.40) L [facility] [place] HGB 7.6 g/dL (12.0-16.0) L [facility] [place] HCT 23.4 % (36.0-47.0) L [facility] [place] PATIENT TRANSFUSED MCV 86.7 fL (80.0-95.0) [facility] [place] MCH 28.3 pg (27.0-32.0) [facility] [place] MCHC 32.6 g/dL (32.0-36.0) [facility] [place] RDW 20.7 % (10.5-14.5) H [facility] [place] PLT 187 10*3/uL (150-450) [facility] [place] MPV 8.6 fL (7.1-10.7) [facility] [place] ID Date Data Source [id number] 11/07/2020 01:43:49 AM EST [facility] [place] Name Value Range Interpretation Code Description Data Tere rce(s) Supporting Document(s) HCT 18.5 % (36.0-47.0) LL [facility] [place] RESULT VERIFIED BY REPEAT TESTING.RESULT (S) CALLED TO AND READ BACK BYCHREHOBOTH [facility] ON 6SIR ON 11.07.20 AT 0142 [place] [id number] ID Date Data Source [id number] 11/07/2020 01:03:14 AM EST [facility] [place] Name Value Range Interpretation Code Description Data Tere rce(s) Supporting Document(s) POC GLUCOSE 180 mg/dL (70-99) H [facility] [place] NOTIFIED NURSEPERFORMED BY CLINICAL S TAFF ID Date Data Source [id number] 11/06/2020 09:55:11 PM EST [facility] [place] Name Value Range Interpretation Code Description Data Tere rce(s) Supporting Document(s) POC GLUCOSE 115 mg/dL (70-99) H [facility] [place] PERFORMED BY CLINICAL STAFF ID Date Data Source [id number] 11/06/2020 09:13:32 PM EST [facility] [place] Name Value Range Interpretation Code Description Data Tere rce(s) Supporting Document(s) POC GLUCOSE 81 mg/dL (70-99) [facility] PERFORMED BY CLINICAL STAFF ID Date Data Source [id number] 11/06/2020 08:43:30 PM EST [facility] [place] Name Value Range Interpretation Code Description Data Tere rce(s) Supporting Document(s) POC GLUCOSE 74 mg/dL (70-99) [facility] PERFORMED BY CLINICAL STAFF ID Date Data Source [id number] 11/06/2020 08:11:24 PM EST [facility] [place] Name Value Range Interpretation Code Description Data Tere rce(s) Supporting Document(s) POC GLUCOSE 95 mg/dL (70-99) [facility] [place] PERFORMED BY CLINICAL STAFF ID Date Data Source [id number] 11/07/2020 06:54:00 AM EST [facility] [id number] [place], [place] [address]NRUEIKF NAME: AURA MESAATE OF : 1975REPORT: OPERATIONPATIENT NUMBER: [id number] STATUS: IPMEDICAL RECORD NUMBER: [id number] OF ADMISSION: 11/06/2020DATE OF DISCHARGE:ROOM: 01DATE OF PROCEDURE: 11/06/2020PREOPERATIVE DIAGNOSES:1. Grade IV L4-5 spondylolisthesis2. Implant failure. L5-S1.3. Motor weakness, bilateral lower extremities.4. Pedicle fracture of right L5.5. L5-S1 interbody cage migration.POSTOPERATIVE DIAGNOSES:1. Grade IV L4-5 spondylolisthesis2. Implant failure. L5-S1.3. Motor weakness, bilateral lower extremities.4. Pedicle fracture of right L5.5. L5-S1 interbody cage migration.OPERATIVE PROCEDURES:1. L3-4, L4-5, L5-S1 posterior spine fusion with instrumentation.2. L3-4, L4-5, L5-S1 posterior lateral arthrodesis.3. L3-4, L4-5, L5-S1 posterior lumbar interbody fusion.4. L5-S1 bilateral complete facetectomies, revision L5-S1 lumbar laminectomy.5. L3-4 and L4-5 lumbar laminectomy, decompression with bilateral partial medial facetectomies.6. S1 pedicle subtraction osteotomy.7. Bilateral iliac fixation.8. Iliac crest bone graft from separate fascial incision.9. Removal of hardware L5-S1 bilateral pedicle screws, rods, and removal of L5-S1 interbody cage.10. Revision of L5 and S1 pedicle screws.11. Intraoperative neuromonitoring, motor-evoked potentials, somatosensory evoked potentials and EMG, sphincter tone monitoring.ANESTHESIA: General.SURGEON: Elías Gordon MDASSISTANT: Brendon Milligan DNP. No resident was available.ESTIMATED BLOOD LOSS: 1000 cc.IV FLUIDS ADMINISTERED: 3500 cc of crystalloid, 1 unit of packed red bloodcells.SPECIMENS: None.GRAFT: A large kit of bone morphogenic protein, Alphatec demineralizedbone matrix, iliac crest bone graft separate fascial incision.IMPLANTS: Alphatec InVictus pedicle screws. Size 7.5 x 45 mm screws atL3, 7.5 x 45 mm screws at L4, 8.5 x 45 mm screws at L5, 8.5 x 40 mm screwsat S1, 9.5 x 90 mm iliac bolts bilaterally, 100 mm rods bilaterally.Biomet Zyston titanium cage with 10 degrees of lordosis, size 11 mm heightat L3-4 and 9 mm height at L4-5.COMPLICATIONS: None.CONDITION: Stable.INDICATIONS FOR SURGERY: This is a very pleasant female status post L5-P0pviaxaiqx lumbar interbody fusion about 6 weeks ago in 08/2020. Thepatient developed progressive spondylolisthesis of L5-S1 with an L5-H2qjojt IV spondylolisthesis. CT scan was significant for a pedicle fractureat the right pedicle junction where it met the vertebral body, loosening ofthe right pedicle screw, lateral displacement of the left L5 pedicle screw,cage migration of L5-S1. The pain was 10/10, severe, affecting low backand bilateral legs. The right leg was more symptomatic compared to theleft. The pain affected the buttock, lateral thighs, posterior thighs,right calf, radiation to the right foot. She had pain in the left legalong the areas as well, with weakness in the left leg greater than theright. She was taking multiple medications with significant pain that wasnot controlled. On examination, her motor strength of the left anteriortibialis, p eroneal tendons, gastrocnemius, and EHL measured 2/5. At theright lower extremity, she had right anterior tibialis weakness of 3/5 andperoneal tendon weakness of 3/5 as well, with decreased sensation inmultiple dermatomes of the bilateral lower extremities. She was indicatedfor surgery because of the significant spondylolisthesis that developedwith implant failure.PROCEDURE: Intravenous Kefzol was given within 1 hour of incision time andordered to be stopped within 24 hours of surgery. Tranexamic acid was alsogiven at the time of incision and continued throughout the surgery. Thepatient was seen prior to surgery and her back was signed. She was thenbrought to the operating room and she was intubated. Weiner catheter wasplaced as well as neuromonitoring leads. After this, the patient waspositioned prone on an open Bradly table. The patient was prepped anddraped in the usual sterile fashion. Incision was performed from L3 downto the pelvis, exposing the previous incisional area. Once I exposed thebilateral lamina of L3, L4, and the facet joints of L3-4 and L4-5, as wellas the transverse processes of bilateral L3 and L4, I placed pedicle screwsbilaterally at L3 and L4. These had good purchase within the bone. I thenidentified the S1 pedicle screws from the previous operation and the U9umhavuq screws from the previous operation. I exposed the previoushardware. I then removed the Globus implant at L5-S1 from her originalsurgery. The set screws were removed and then the rods removed. Thebilateral L5 and S1 screws were removed. The L5 screws bilaterally wereclosely loose without any significant purchase within the bone. The [id number] screws had fair purchase. The S1 pedicle screws were removed, Bairon increased the diameter of the pedicle screws from a 6.5 x 25 mm screw upto an 8.5 x 40 mm screw at S1 bilaterally. This was a revision of the Q3ejgxtuk screws bilaterally. I then revised the bilateral L5 screws. Theleft L5 screw, I changed the trajectory to increase the medialization ofthe screw. I had fair purchase within the L5 vertebral body. On the rightside, I revised the screw position as well and inserted the L5 screw on theright side in the new trajectory. However, the screw only had fairpurchase in the bone because of the fracture of the pedicle on the rightside at L5. I used a triggered EMG probe to stimulate the bilateral L3,L4, L5, and S1 nerve roots. There was no significant alarm criteria. Livan performed the insertion of the bilateral iliac bolts. This was doneby making a separate fascial incision bilaterally over the area of theposterior superior iliac spine. I used a Nayeli and created a separatefascial incision laterally on the left side and the right side, identifiedthe PSIS, and then I exposed the PSIS. I then placed osteotomes into theposterior aspect of the iliac crest on both sides, inserted the osteotomesup to a depth of 2 cm at the PSIS, and removed a 2 cm x 2 cm bone block onthe left side and the right side. This was the iliac crest autograft froma separate fascial incision. This was removed and saved for bone graft. Livan used curettes to remove a large amount of cancellous bone from thePSIS on both sides, and then I placed bilateral iliac fixation which hadexcellent purchase within the bone. I then turned my attention towards thelaminectomy and decompression from L3 to L5 in order to repair the diskspaces for cages. I performed the laminectomy and decompression byremoving the bottom 50 percent of the L3 spinous process and then theentire spinous process of L4. The bone was saved for local autograft. Livan removed the bottom 50 percent of the L3 lamina bilaterally and theentire lamina of L4 bilaterally and saved this bone for local autograft.From the previous operation, the entire lamina of L5 had been resected aswell as about the top 50 percent of the S1 lamina bilaterally. I widenedthe decompression of the L5-S1 laminectomy, removing more laminar bonebilaterally and then removing the entire facet joints bilaterally of L5-S1in order to decompress extensively the right exiting L5 nerve rootsunderneath the L5 pedicles on both sides. This allowed the decompressionof the nerve roots, which I felt to be important because of the patient'ssymptoms. Additionally, because of the patient's significant weakness inthe bilateral lower extremities affecting multiple myotomes, I also removedthe medial facet joint bilaterally at L3-4 and L4-5 to decompress thetraversing L4 nerve roots bilaterally at L3-L4 and the traversing L5 nerveroots bilaterally at L4-L5. On the left side, because of the moresignificant weakness, I performed a significant extensive foraminotomyunderneath the L4 pedicle, exposing the exiting left L4 nerve rootunderneath the left L4 pedicle and additionally I did the same thing on theleft side at L3-4 exposing the L3 nerve root as it exited underneath theleft L3 pedicle. I then performed diskectomies at L3-4 and L4-5 from aposterior approach from the left side by using a scalpel, curettes, andpaddle sudhir. I did not place cages yet at this time. I then turned myattention back towards the L5-S1 level. I identified the disk space fromthe left side at L5-S1 and then I placed the instrumentation into the cageat L5-S1 from the previous operation in order to prolapse the expandablecage. This was collapsed and then the expandable cage at L5-S1 was removedwith a hook. However, in order to expos e the cage, because of thesignificant scar tissue and the high level spondylolisthesis, I needed toperform an S1 pedicle subtraction osteotomy first. This was done by takingthe osteotome and resecting the superior one-third of the S1 pedicle on the left side with the osteotome, and also removing the top one-third of the S1 vertebral body with the osteotome, therefore, performing a three-column osteotomy with the osteotome from the left side. Previously, the laminectomy had been performed, the L5-S1 facet joint was completely removed, and then I removed the superior one-third of the S1 vertebral body as well as the superior portion of the S1 pedicle as well. This was done in order to gain access to the disk space because it was not otherwise possible to access the cage because of the significant anterior placement of the L5-S1 cage that was protruding into towards the abdomen. It also imparted mobility to the segment to allow for correction. after the osteotomy had been performed, I was able to access the cage, collapse the cage, and then remove it. I then placed a dora bilaterally from L3 to S1. I placed set screws at L3 and L4 and S1 pedicle screws. I placed reducers over the L5 pedicles bilaterally and then I reduced the L5 spondylolisthesis initially about 90 percent reduction. However, because of the fracture of the pedicle on the one side and the failure of the screw on the other, the screw purchase was not sufficient enough to hold the reduction and the reduction ultimately progressed to a grade II spondylolisthesis. I was not able to improve this any further. Regardless, a complete reduction of spondylolisthesis would carry a higher risk of bilateral foot drop. Because of the previous weakness anyway, it was my opinion that a grade II spondylolisthesis was acceptable. I then placed a size 11-mm cage into the L3- 4 disk space that was filled with DBM, local autograft, and iliac crest bone graft, and BMP into the L3-4 disk space. I then placed a second cage at L4-5 m easuring 9 mm, also filled with BMP, DBM, local autograft, and iliac crest bone graft into the disk space at L4-5. A cage was not placed at L5-S1, but I did place a large amount of bone graft in the disk space which was a combination of iliac crest autograft and BMP. I used a cortical piece of the iliac crest bone graft for a structural graft at L5- S1 that was placed into the L5-S1 disk space. I did not place the cage because of the incompetence of the anterior longitudinal ligament at L5-S1 and the risk of subsequent cage migration. In my opinion, it was felt that the risk of a titanium implant was not acceptable at this time. I then placed new rods bilaterally; the reason for this was that the previous reduction rods had good contouring but not ideal, so I swapped out for new rods and recontoured the rods from L3 to S1 and then placed offset connectors into the iliac bolts on both sides. I inserted set screws and final tightened all the set screwsbilaterally. I then decorticated the L3 transverse processes, [id number] processes, L5 transverse processes, and sacral ala bilaterallyand placed DBM and BMP and local autograft and iliac crest autograft forposterolateral arthrodesis from L3 to S1 bilaterally. At the end ofprocedure, I irrigated, inserted vancomycin powder and a subfascial drainand closed the wound in several layers. During the procedure, anincidental durotomy did occur dorsally, no extravasation of the nerve rootsoccurred. The area was mixed with a Nurolon, an AlloDerm patch, a piece ofDuragen, and DuraSeal at the end of the procedure. The patient was broughtto the PACU in stable condition. There were no changes with regards toneuromonitoring baselines. Sphincter tone monitoring was also included andthere was no reduction from baseline.DICTATED BY: FELICITA Mcguireictated: 11/06/2020 18:21DT: 11/06/2020 18:31Job #: [id number]: [facility] computer generated reports are not confirmed orauthenticated unless they are signed by the providerElectronically Authenticated and Edited by:ELÍAS GORDON MD On 11/07/2020 06:54 AM EST Name Value Range Interpretation Code Description Data Tere rce(s) Supporting Document(s) ID Date Data Source [id number] 11/06/2020 05:25:54 PM EST [facility] Name Value Range Interpretation Code Description Data Tere rce(s) Supporting Document(s) POC GLUCOSE 294 mg/dL (70-99) H [facility] NOTIFIED NURSEPERFORMED BY CLINICAL S TAFF ID Date Data Source [id number] 11/06/2020 04:36:35 PM EST [facility] Name Value Range Interpretation Code Description Data Tere rce(s) Supporting Document(s) POC GLUCOSE 383 mg/dL (70-99) H [facility] PERFORMED BY CLINICAL STAFF ID Date Data Source [id number] 11/06/2020 03:39:01 PM EST [facility] Name Value Range Interpretation Code Description Data Tere rce(s) Supporting Document(s) POC GLUCOSE 403 mg/dL (70-99) HH [facility] PERFORMED BY CLINICAL STAFF ID Date Data Source [id number] 11/06/2020 04:14:04 PM EST [facility] Name Value Range Interpretation Code Description Data Tere rce(s) Supporting Document(s) WBC 18.7 10*3/uL (4.1-11.0) H [facility] RBC 2.95 10*6/uL (4.00-5.40) L [facility] HGB 8.1 g/dL (12.0-16.0) L [facility] HCT 25.3 % (36.0-47.0) L [facility] MCV 85.8 fL (80.0-95.0) [facility] MCH 27.3 pg (27.0-32.0) [facility] MCHC 31.9 g/dL (32.0-36.0) L [facility] RDW 23.1 % (10.5-14.5) [facility] PLT 276 10*3/uL (150-450) [facility] MPV 9.1 fL (7.1-10.7) [facility] ID Date Data Source [id number] 11/06/2020 03:46:09 PM EST [facility] Name Value Range Interpretation Code Description Data Tere rce(s) Supporting Document(s) SODIUM 137 mmol/L (136-145) [facility] POTASSIUM 4.5 mmol/L (3.6-5.2) [facility] CHLORIDE 106 mmol/L (100-108) [facility] CO2 21 mmol/L (22-31) L [facility] ANION GAP 10 mmol/L (7-16) [facility] UREA NITROGEN 10 mg/dL (7-24) [facility] CREATININE 0.76 mg/dL (0.60-1.00) [facility] BUN/CREAT RATIO 13.2 RATIO (10.0-20.0) [facility] GLUCOSE 398 mg/dL (70-99) H [facility] CALCIUM 7.6 mg/dL (8.4-10.2) L [facility] GFR >60 ml/min/1.73m2 (>59) [facility] GFR ( AMER) >60 ml/min/1.73m2 (>59) [facility] GFR INTERPRETATION [facility] --NORMAL KIDNEY FUNCTION OR MILD DISEASE - GFR >OR= 60CHRONIC KIDNEY DISEASE - GFR 15 - 59RENAL FAILURE - GFR <15 Est. GFR calculation based on the MDRDstudy equation, which assumes a steadystate for creatinine. Est. GFR should notbe used for medication dosing. ID Date Data Source [id number] 11/06/2020 02:31:50 PM EST [facility] Name Value Range Interpretation Code Description Data Tere rce(s) Supporting Document(s) POC GLUCOSE 353 mg/dL (70-99) H [facility] PERFORMED BY CLINICAL STAFF ID Date Data Source [id number] 11/06/2020 02:21:44 PM EST [facility] Name Value Range Interpretation Code Description Data Tere rce(s) Supporting Document(s) POC GLUCOSE 237 mg/dL (70-99) H [facility] NOTIFIED PROVIDERPERFORMED BY CLINICA L STAFF ID Date Data Source [id number] 11/06/2020 02:21:34 PM EST [facility] Name Value Range Interpretation Code Description Data Tere rce(s) Supporting Document(s) POC GLUCOSE 121 mg/dL (70-99) H [facility] NOTIFIED [facility] ID Date Data Source [id number] 11/09/2020 06:48:26 AM EST [facility] [place] SPECIMEN DESCRIPTION SITE LUMBAR DEEP 1SPECIAL REQUESTS NONECULTURE RESULTS NO ANAEROBES ISOLATEDREPORT STATUS FINAL 11/09/2020 Name Value Range Interpretation Code Description Data Tere rce(s) Supporting Document(s) ID Date Data Source [id number] 11/09/2020 06:47:52 AM EST [facility] SPECIMEN DESCRIPTION SITE LUMBAR DEEP 2SPECIAL REQUESTS NONECULTURE RESULTS NO ANAEROBES ISOLATEDREPORT STATUS FINAL 11/09/2020 Name Value Range Interpretation Code Description Data Tere rce(s) Supporting Document(s) ID Date Data Source [id number] 11/08/2020 11:35:56 AM EST [facility] SPECIMEN DESCRIPTION SITE LUMBAR DEEP 1SPECIAL REQUESTS NONEGRAM STAIN FEW (<10/LPF) WHITE BLOOD CELLS NO BACTERIACULTURE RESULTS NO GROWTHREPORT STATUS FINAL 11/08/2020 Name Value Range Interpretation Code Description Data Tere rce(s) Supporting Document(s) ID Date Data Source [id number] 11/08/2020 11:37:37 AM EST [facility] [place] SPECIMEN DESCRIPTION SITE LUMBAR DEEP 2SPECIAL REQUESTS NONEGRAM STAIN FEW (<10/LPF) WHITE BLOOD CELLS NO BACTERIACULTURE RESULTS NO GROWTHREPORT STATUS FINAL 11/08/2020 Name Value Range Interpretation Code Description Data Tere rce(s) Supporting Document(s) ID Date Data Source [id number] 11/08/2020 12:27:13 AM EST [facility] SPEC EXP DATE 11/07/2020TEST ING SITE PERFORMED AT [address] [place], [place] [address]UNIT NUMBER [id number] COMPONENT TYPE LEUKOPOOR RED CELLSUNIT DIVISION 00STATUS OF UNIT TRANSFUSEDTRANSFUSION STATUS OK TO TRANSFUSECROSSMATCH RESULT COMPATIBLEUNIT NUMBER [id number] COMPONENT TYPE LEUKOPOOR RED CELLSUNIT DIVISION 00STATUS OF UNIT TRANSFUSEDTRANSFUSION STATUS OK TO TRANSFUSECROSSMATCH RESULT COMPATIBLEUNIT NUMBER [id number] COMPONENT TYPE LEUKOPOOR RED CELLSUNIT DIVISION 00STATUS OF UNIT TRANSFUSEDTRANSFUSION STATUS OK TO TRANSFUSECROSSMATCH RESULT COMPATIBLE Name Value Range Interpretation Code Description Data Tere rce(s) Supporting Document(s) ID Date Data Source [id number] 11/06/2020 07:37:19 AM EST [facility] Name Value Range Interpretation Code Description Data Tere rce(s) Supporting Document(s) HEMOGLOBIN A1C @ 6.7 % (4.0-6.0) H Lab [facility] Performed using [employer] y.Care must be taken when interpreting [id number] in patients with a hemoglobin variantor decreased erythrocyte lifespan. Values 5.7 - 6.4% suggest prediabetes.Values >=6.5% are diagnostic for diabetes.REFERENCE: DIABETES CARE 2018: 41(S13-S27).[facility] [address] [place] [address] EST [place] GLUCOSE 146 mg/dL [facility] ID Date Data Source [id number] 11/06/2020 06:17:14 AM EST [facility] Name Value Range Interpretation Code Description Data Tere rce(s) Supporting Document(s) POC GLUCOSE 172 mg/dL (70-99) H [facility] PERFORMED BY CLINICAL STAFF ID Date Data Source [id number] 11/06/2020 07:40:36 AM EST [facility] Name Value Range Interpretation Code Description Data Tere rce(s) Supporting Document(s) POC GLUCOSE 226 mg/dL (70-99) H [facility] PERFORMED BY CLINICAL STAFF ID Date Data Source [id number] 11/04/2020 03:54:47 PM EST [facility], PCName: Eli MesaDOB: 1975Provider: Murali GordoninDOS: 11/04/2020 Reason For VisitSbear Mesa is here today for preop. Reports ongoing low back, BLE pain>R. Other DOI/DOO: chronic pain. Surgery Description: L3-S1 posterior fusion w/instrumentation,lateral arthrodesis,PLIF,L5-S1 bilateral facetectomies,revision L5-S1 Laminectomy,L3-5 Laminectomy decompression,S1 pedicle subtraction osteotomy,bilateral iliac fixation,ICBG,L5-S1 hardware removal/cage removal,revision L5-S1 pedicle screws. 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 Patient's last day worked was . Plan X-Ray I Scoliosis - 2+ views (XRays were ordered, obtained and interpreted today in theoffice. Indication: pain/dysfunction.); Status:Complete; Done: [id number] Perform:SOS14 (General); Due:[id number]; Last Updated By:Irene Yanez; 11/04/2020 3:39:40 PM;Ordered; For:Low back pain; Ordered By:Elías Gordon; You need to quit smoking.; Status:Complete; Done: [id number] Last Updated By:Lexi Lin; 11/04/2020 3:26:43 PM;Ordered; For:SocHx: Current every day smoker; Ordered By:Elías Gordon; Chief complaint patient states Bhavya is a very pleasant female who underwent a previous surgery by another spine provider in August 2020. This was an L5-S1 posterior lumbar interbody fusion. Unfortunately, the patient developed progressive listhesis at L5-S1 accompanied by severe back pain. Subsequent x-rays in the postoperative time period demonstrated listhesis and failure, migration of the lumbar interbody cage anteriorlyShe underwent a CT scan as well on November 02, 2020. The CT scan is significant for a pedicle fracture at the junction of the right pedicle and vertebral body, loosening of the right pedicle screw, lateral displacement of the left L5 pedicle screw, and cage migration with a grade 4 spondylolisthesis at L5-S1. The cage was placed from the left side, sitting at the left eccentric disc space.The patient states the pain is severe, 10 out of 10. It affects the low back, I lateral legs. The right leg is more symptomatic compared to the left. It affects the right buttock, right lateral thigh, posterior thigh, right calf and radiates down to the right foot. She has pain in the left leg along same dermatomes with numbness the left foot. She reports significant weakness of the left leg more so than the right. The pain in the back is as bad as the leg pain. She is difficulty with standing, walking, sitting.She takes hydrocodone, gabapentin, and tizanidine.The patient is well-developed, well-nourished but appears in distress during examination secondary to pain. The patient appears their stated age and is dressed appropriately for climate. The pupils are equal, round and reactive to accommodation. Head is normocephalic and atraumatic. Respirations are even and unlabored. On neurologic examination, the patient is alert and oriented to time, place and person. Memory is intact to recall testing. Affect is not blunted. Speech is appropriate. The skin appears normal and is negative for ulcers or rashes. Lymphatic exam: Neck within normal limits. There is no edema of the extremities and less than 2 seconds of capillary refill is present.Examination of the lumbar spine reveals significant limitations in flexion, extension, lateral bending bilaterally, and rotation bilaterally. The patient demonstrates an antalgic gait . There is no posterior tenderness in the lower back. Incision is well-healed. Motor strength is significantly reduced at the left anterior tibialis, peroneal tendons, gastrocnemius, and EHL with strength of 2 out of 5. The left quadriceps and left hip flexor is intact without deficits however she has pain with left hip flexion. At the right lower extremity, the patient has right anterior tibialis weakness of 3 out of 5 in peroneal tenderness weakness of 3 out of 5 otherwise the right lower extremity strength is intact 5 out of 5. Sensation is decreased to light touch and pinprick at the right lateral thigh, left lateral thigh, bilateral calves, bilateral dorsal feet and plantar feet. Reflexes are 2+ at the patellar tendon and 1+ at the Achilles bilaterally. Straight leg raise is negative bilaterally. Contralateral straight leg raise is negative. There is no hip pain with internal or external rotation. Brisk distal capillary refill bilaterallyX-rays ordered, obtained, and interpreted by myself from today. Scoliosis spine x-rays AP and lateral . Cage migration L5-S1, progressive listhesis, grade 4 spinal listhesis L5-[id number] spondylolisthesis, grade 4, cage migration, construct failure, right pedicle fracturetype: Spondylolisthesislocation: lumbaretiology: degenerativeplan:1. Medication: We discussed taking 4 different medications to counteract the different pain pathways. This is a multimodal pain regimen. We discussed that the naproxen counteracts the inflammatory pathway, gabapentin affects the neuropathic pain pathway, Tylenol affects the analgesic pathway, and oxycodone affects the opioid pathway. We discussed that Percocet may be prescribed as a combination acetaminophen and opioid instead of oxycodone alone.Hydrocodone, the proximal prescribed. The patient has gabapentin 600 mg 3 times a day prescriptions already2. Imaging: No further imaging at this time3. Injection: Deferred4. Activity:as tolerated. 5. Referral: None 6. Surgical management was discussed including the risks, benefits, and alternatives.The surgery necessary requires osteotomy which is a 3, osteotomy of S1, removal of the cage, reduction of spinal listhesis if possible, and fusion from L3 to the pelvis. The patient understands that the nonoperative options include observation. This may result in additional cage migration and further failure with spondyloptosisWe discussed the risks of surgery including, but not limited to, infection, nerve damage, vascular damage, cerebrospinal fluid leak, residual pain, scarring, failure of fusion requiring further surgery such as a second stage revision, compressive hematoma resulting in neurologic symptoms, bowel or bladder dysfunction, and blindness (approximately 0.14%) from prolonged prone positioning. The patient understands that the risk of infection may be higher if an epidural steroid injection was performed within 3 months of surgery. The patient understands that surgery could result in paralysis although the risk is low. Understands increased risk of lumbar infection with tobacco use. Understands the risk of continued persistent chronic low back pain and leg pain. She understands the significant likelihood of progressive weakness in the legs with reduction of L5 and with decompression of the nerve roots and revision surgery. Signatures Electronically signed by : Elías Gordon M.D.; Nov 04 2020 3:54PM EST (Author) Name Value Range Interpretation Code Description Data Tere rce(s) Supporting Document(s) ID Date Data Source [id number] 11/05/2020 10:32:42 AM EST [facility] Name Value Range Interpretation Code Description Data [facility] rce(s) Supporting Document(s) HEMOGLOBIN A1C @ 7.0 % (4.0-6.0) H [facility] Performed using [employer] immunoassa y.Care must be taken when interpreting [id number] in patients with a hemoglobin variantor decreased erythrocyte lifespan. Values 5.7 - 6.4% suggest prediabetes.Values >=6.5% are diagnostic for diabetes.REFERENCE: DIABETES CARE 2018: 41(S13-S27).PERFORMED AT [address] [facility] [id number] EST [place] GLUCOSE 154 mg/dL Lab Portia [facility] [place] ID Date Data Source [id number] 11/05/2020 10:08:22 AM EST [facility] Name Value Range Interpretation Code Description Data Tere rce(s) Supporting Document(s) WBC 8.6 10*3/uL (4.1-11.0) [facility] [place] [place] RBC 4.19 10*6/uL (4.00-5.40) [facility] HGB 11.1 g/dL (12.0-16.0) L [facility] HCT 36.0 % (36.0-47.0) [facility] PERFORMED AT [address] [facility] [address] MCV 86.1 fL (80.0-95.0) [facility] MCH 26.5 pg (27.0-32.0) L [facility] MCHC 30.8 g/dL (32.0-36.0) L [facility] RDW 27.2 % (10.5-14.5) H [facility] PLT 336 10*3/uL (150-450) [facility] MPV 9.2 fL (7.1-10.7) [facility] NEUT % 70.7 % (35.0-75.0) [facility] LYMPH % 20.1 % (16.0-52.0) [facility] MONO % 6.8 % (0.0-8.0) [facility] EOS % 2.1 % (0.0-5.0) [facility] BASO % 0.3 % (0.0-4.0) [facility] NEUT # 6.1 10*3/uL (1.8-7.7) [facility] LYMPH # 1.7 10*3/uL (1.2-4.8) [facility] MONO # 0.6 10*3/uL (0.0-0.8) [facility] Eosinophils [#/volume] in Blood by Automated count 0.2 10*3/uL (0.0-0 .5) [facility] BASO # 0.0 10*3/uL (0.0-0.2) [facility] ID Date Data Source [id number] 11/04/2020 07:54:09 PM EST [facility] SPEC EXP DATE 11/07/2020PATI ENT ABO/Rh O POSITIVEANTIBODY SCREEN NEGATIVETESTING SITE PERFORMED AT [address] [facility] [id number] BANK COMMENT BLOOD TYPE CONFIRMED. Name Value Range Interpretation Code Description Data Tere rce(s) Supporting Document(s) ID Date Data Source [id number] 11/05/2020 09:35:27 AM EST [facility] Name Value Range Interpretation Code Description Data Tere rce(s) Supporting Document(s) SPECIMEN DESCRIPTION Lab Allia nce [facility] [place] STAPH SCREEN RESULTS (ONEGSA) [facility] COMMENT [facility] GENE TO DETECT STAPH AUREUS. (2) RT-P CR WAS PERFORMED FOR THE mecA AND SCCmec GENES TO DETECT METHICILLIN RESISTANCE IN STAPH AUREUS. ID Date Data Source [id number] 11/03/2020 01:40:00 PM EST [facility] Name Value Range Interpretation Code Description Data Tere rce(s) Supporting Document(s) SARS coronavirus 2 RNA [Presence] in Res piratory specimen by CORONA with probe detection [facility] This lab was ordered by [facility] and reported by [employer]. ID Date Data Source [id number] 10/29/2020 01:43:29 PM EST [facility], PCName: Eli MesaDOB: 1975Provider: June Polo: 10/29/2020 Reason For VisitSbear Mesa is here today for Lumbar spine. Eli Mesa is an established patient here for follow up. Surgery DOS: 09/15/2020. Surgery Description: L5-S1 Posterior Interbody Fusion, L5-S1 Posterolateral Spinal Fusion, L5-S1 Prosthetic Cage Placement, L5-S1 Spinal Instrumentation, Local Bone Autograft, Right Iliac Crest Bone Graft, and L5-S1 Decompressive Laminectomies with Partial Facetectomies and Bilateral Foraminotomie. 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 History of Present IllnessStates after surgery she is doing wellDeveloped increasing pain mid- to [facility]--MRI performedLow back pain has continuedEpisodic bilateral S1 radiculopathyBilateral foot numbness--this was present before surgery but states it is now worseNo signs infection The patient complains of pain in the lumbar spine . The patient states that the timing of the pain is continuous . The pain radiates to both, posterior, buttock(s), thigh(s), leg(s) and S1 distribution . The patient states that the timing of the pain is intermittent . The patient denies signs of bladder dysfunction, bowel dysfunction, cancer/metastasis, infection and myelopathy . The pain is knife like and achy . The pain severity is rated 6-9 out of 10. Pain is aggravated by periods of activity . There is numbness involving both feet. The numbness is constant. Results/DataXRays were ordered, obtained and interpreted today in the office. Indication: pain/dysfunction. Site: Lumbar Spine Views: 2 Views, AP/Lateral Standing Spondylolisthesis is increased with cage anterior extrusion and possible hardware back out Results/Data OtherMCLAREN FLINT lumbar [facility] 08/18/18: L5- S1 spinal listhesis; right L5-S1 disc herniationI lumbar [facility] 08/14/2020: L5-S1 spondylolisthesis, L5-S1 disc herniation; bilateral foraminal narrowing. No sign ificant change compared to MRI of 08/09/2018[facility] 10/06/2020: Postop changes. Reviewed in detail the results of the diagnostic testing. Reviewed the pertinent applicable clinical implications relating to the patient. Also provided a copy of the results for their personal records. Assessment 1. Low back pain (724.2) (M54.5) 2. Spondylolisthesis at L5-S1 level (756.12) (M43.17) condition: Acute on chronicetiology: age-related spine/joint degenerationlevels: L5-S1 Plan X-Ray I Lumbosacral - 2 views (XRays were ordered, obtained and interpreted today inthe office. Indication: pain/dysfunction.); Status:Complete; Done: [id number] Perform:SOS22; Due:[id number]; Last Updated By:Gaviota Cesar; 10/29/2020 10:37:29 AM;Ordered; For:Low back pain; Ordered By:Eder Polo; CT Scan (SOS) Referral Treatment Treatment Status: Need Information - FinancialAuthorization Requested for: [id number] Ordered Stat;For: Aftercare following surgery of the musculoskeletal system, Low back pain; Ordered By: Eder Polo Performed: Order Comments: Please schedule at [facility]. Due: [id number]; Last Updated By: Inga Rutherford; 10/29/2020 11:30:48 AMPatient will follow up with: : Dr. Gossaterality and Body Part : Lumbar Spine CT Scan The various alternatives and treatment options were discussed with pros and cons, risks, and potential benefits of each option reviewed. She requires further work up to include CT scan Lumbar Spine. Reviewed case with Dr. Gordon. Recommend CT scan for further evaluation. Follow-up with Dr. Gordon to discuss further surgery that she will need both an anterior and posterior procedure. Discussed this with Eli--she agrees with the plan This document was dictated and electronically signed using [employer] software. A reasonable attempt at proof reading has been made to minimize errors. Please call with any questions. AddendumAmended 10/29/2020 01:43 PM by Elías Gordon This note was dictated by Elías Gordon, not Eder Polo Signatures Electronically signed by : Eder Polo M.D.; Oct 29 2020 12:07PM EST (Author) Electronically signed by : Elías Gordon M.D.; Oct 29 2020 1:43PM EST (Author) Name Value Range Interpretation Code Description Data Tere rce(s) Supporting Document(s) ID Date Data Source [id number] 10/21/2020 03:34:00 PM EST [facility] Name Value Range Interpretation Code Description Data Tere rce(s) Supporting Document(s) SARS coronavirus 2 RNA [Presence] in Res piratory specimen by CORONA with probe detection [facility] This lab was ordered by [facility] a nd reported by [facility]. ID Date Data Source [id number] 10/21/2020 01:22:00 PM EST [facility] Name Value Range Interpretation Code Description Data Tere rce(s) Supporting Document(s) Amphetamines Level Urine Laboratory test result [facility] Barbiturates Urine Laboratory test result [facility] Cocaine Metabolite Urine Laboratory test result [facility] Benzodiazepines Urine Laboratory test result [facility] Cannabinoids Urine Laboratory test result [facility] Phencyclidine Urine Laboratory test result [facility] ALL PRESUMPTIVE POSITIVE FINDINGS AR E UNCONFIRMED THRESHOLD IN NG/ML AMPHETAMINES/METHAMPHET 1000 BARBITURATES [...] CLOSELY RELATED COMPOUNDS PLEASE CALL THE LAB. Methadone Urine Laboratory test result [facility] Opiates Urine Laboratory test result [facility] ID Date Data Source [id number] 10/21/2020 11:15:00 AM EST [facility] Name Value Range Interpretation Code Description Data Tere rce(s) Supporting Document(s) Venous PH 7.412 units 7.330-7.430 [facility] Venous Partial Pressure Co2 35.6 mmHg 38.0-50.0 [facility] Venous Partial Pressure O2 145.3 mmHg 30.0-50.0 [facility] Venous Total Co2 23.3 meq/L 24.0-28.0 [facility] ( [facility] Venous Hco3 22.2 meq/L 23.0-27.0 [facility] Venous O2 Saturation 99.5 % 60.0-80.0 MED[facility] NT ([facility] Venous Standard Hco3 22.9 meq/L [facility] ( [facility] Venous Base Excess -1.9 [facility] ID Date Data Source [id number] 10/21/2020 10:37:00 AM EST [facility] Name Value Range Interpretation Code Description Data Tere rce(s) Supporting Document(s) Lipoprotein lipase [Enzymatic activity/volume] in Serum or Plasm a 25 U/L 73-393 [facility] ID Date Data Source [id number] 10/21/2020 10:37:00 AM EST [facility] Name Value Range Interpretation Code Description Data Tere rce(s) Supporting Document(s) Alt/SGPT 17 U/L 12-78 [facility] Ast/Sgot 31 U/L 7-37 [facility] Alkaline Phosphatase 91 U/L 45-117 [facility] Bilirubin,Total 0.5 mg/dL 0.2-1.0 [facility] Bilirubin,Direct Laboratory test result 0.0-0.2 [facility] Albumin 3.2 GM/DL 3.2-5.2 [facility] Total Protein 8.3 GM/DL 6.4-8.2 [facility] Albumin/Globulin Ratio 0.6 1.2-2.2 [facility] ID Date Data Source [id number] 10/21/2020 10:37:00 AM EST [facility] Name Value Range Interpretation Code Description Data Tere rce(s) Supporting Document(s) Hemoglobin 11.6 g/dL 12.0-15.5 [facility] ([facility] Red Blood Count 4.81 10 4.00-5.40 [facility] White Blood Count 19.9 10 4.0-10.0 [facility] ([facility]ta [facility] Mean Corpuscular Volume 81.9 fl 80.0-96.0 M [facility] ([facility] Mean Corpuscular Hemoglobin 24.1 pg 27.0-33.0 [facility] Hematocrit 39.4 % 36.0-47.0 [facility] Mean Corpuscular HGB Conc 29.4 g/dL 32.0-36.5 [facility] Red Cell Distribution Width 20.6 % 11.5-14.5 [facility] Platelet Count, Automated 478 10 150-450 [facility] Nucleated Red Blood Cell % 0.0 % 0-0 [facility] ID Date Data Source [id number] 10/21/2020 10:31:00 AM EST [facility] Name Value Range Interpretation Code Description Data Tere rce(s) Supporting Document(s) Laboratory test finding (navigational concept) 133 meq/L 136-145 [facility] Laboratory test finding (navigational concept) 43.0 % 38.0-51.0 [facility] Laboratory test finding (navigational concept) 390 mg/dL 70-105 [facility] Laboratory test finding (navigational concept) 5.2 meq/L 3.5-5.1 [facility] Laboratory test finding (navigational concept) 4.1 mg/dL 4.5-5.3 [facility] Laboratory test finding (navigational concept) 98 meq/L 98-109 [facility] Laboratory test finding (navigational concept) 11 mg/dL 8-26 [facility] Laboratory test finding (navigational concept) 0.6 mg/dL 0.6-1.3 [facility] Laboratory test finding (navigational concept) 25.0 MM/L 23.0-27.0 [facility] ID Date Data Source [id number] 10/19/2020 09:08:01 PM EST [facility] PCName: Eli MesaDOB: 1975Provider: Dk Napoles: 10/14/2020 Reason For VisitSbear Mesa is an established patient here for follow up and lEi Mesa is here for first post-op appointment. Patient reports right sided sciatic pain. The patient is currently residing at home. Other DOI/DOO: 08/12/18. Surgery DOS: 09-15-2020. Surgery Description: Lumbar 5 to sacral 1 laminectomy with foraminotomies interbody fusion cage placement, instrumentation, iliac crest bone graft, local bone graft. The patient's pain is managed by Dr Johnson. (protective signal installer). 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 History of Present IllnessPatient is a 45-year-old female presents to the office with a chief complaint of constant right-sided low back pain with constant radiating pain in the right lower extremity. Recent exacerbation without injury. She is status post L5-S1 laminectomy/fusion on 09/15/2020. Evaluated at [facility] where MRI was performed. Utilizing tizanidine and gabapentin. Denies any signs of infection. AssessmentLow back painRight lumbar radiculitis Plan Start: Diclofenac Sodium 75 MG Oral Tablet Delayed Release; 1 po BID MDD:2 Rx By: Brenton Napoles; Dispense: 0 Days ; #:60 Tablet; Refill: 1;For: Low back pain; PHIL = N; Verified Transmission to [facility] #13; Last Updated By: [employer] [place]; 10/14/2020 2:33:52 PM Renew: HYDROcodone-Acetaminophen 7.5-325 MG Oral Tablet; TAKE 1 TO 2 TABLETSEVERY 6 HOURS NEEDED FOR PAIN. Do not exceed more than6 tablets per 24hr MDD:6 Rx By: Brenton Napoles; Dispense: 0 Days ; #:60 Tablet; Refill: 0;For: Aftercare following surgery of the musculoskeletal system, Low back pain; PHIL = N; Verified Transmission to [facility]13; Msg to Pharmacy: Reference #:[id number]; Last Updated By: Plyfe; 10/14/2020 4:04:01 PM Patient is status post L5-S1 laminectomy with PLIF on 09/15/2020. Recent exacerbation without new injury. No neurocompression appreciated on recent MRI. Patient denies any signs or symptoms consistent with infection. Provided a prescription for diclofenac 75 mg p.o. every 12 hours as needed for pain as well as a prescription for hydrocodone 7.5/325 mg to use sparingly as needed for severe pain. We discussed performing normal ADLs and focus on walking. Follow-up at already scheduled appointment on 10/29/2020. DisclaimersThis document was dictated and electronically signed using [email or web address] software. A reasonable attempt at proof reading has been made to minimize errors. Please call with any questions. Signatures Elect ronically signed by : Cailin Wolfe; Oct 19 2020 3:38PM EST (Author) Electronically signed by : Eder Polo M.D.; Oct 19 2020 9:07PM EST Name Value Range Interpretation Code Description Data Tere rce(s) Supporting Document(s) ID Date Data Source [id number] 10/08/2020 07:03:00 PM EST [facility] Name Value Range Interpretation Code Description Data Tere rce(s) Supporting Document(s) Laboratory test finding (navigational concept) Laboratory test result [facility] A false negative result may occur if a s pecimen is improperly collected, transported or handled. False [...] pathogens. DISCLAIMER: Testing was performed using the ZenphID SARS-CoV-2 test. This test was developed and its performance characteristics determined by [employer]. This test has not been FDA cleared [...] the authorization is terminated or revoked sooner. ID Date Data Source [id number] 10/08/2020 07:03:00 PM EST [facility] Name Value Range Interpretation Code Description Data Tere rce(s) Supporting Document(s) Laboratory test finding (navigational concept) Laboratory test result [facility] A false negative result may occur if a s pecimen is improperly collected, transported or handled. False [...] pathogens. DISCLAIMER: Testing was performed using the ZenphID SARS-CoV-2 test. This test was developed and its performance characteristics determined by [employer]. This test has not been FDA cleared [...] the authorization is terminated or revoked sooner. Coronavirus 2019 Nasopharygeal Laboratory test result [facility] ID Date Data Source [id number] 10/08/2020 06:17:00 PM EST [facility] Name Value Range Interpretation Code Description Data [facility] rce(s) Supporting Document(s) Glucose [Mass/volume] in Capillary blood by Glucometer 275 mg/dL 70- 105 [facility] ID Date Data Source [id number] 10/08/2020 04:55:00 PM EST [facility] Name Value Range Interpretation Code Description Data [facility] rce(s) Supporting Document(s) Glucose [Mass/volume] in Capillary blood by Glucometer 254 mg/dL 70- 105 [facility] ID Date Data Source [id number] 10/08/2020 02:20:00 PM EST [facility] Name Value Range Interpretation Code Description Data [facility](s) Supporting Document(s) Appearance, Urine RFX Laboratory test result [facility] Specific Orestes Ur Auto RFX 1.023 1.002-1.035 [facility] Color, Urine RFX Laboratory test result [facility] PH,Urine RFX 6.0 units 5.0-9.0 [facility] Protein, Urine Auto RFX Laboratory test result [facility] ([facility] Glucose, Urine (Ua) Auto RFX Laboratory test result [facility] Ketone, Urine Auto RFX Laboratory test result [facility] Urobilinogen, Urine Auto RFX 0.2 mg/dL 0.0-2.0 [facility] Bilirubin, Urine Auto RFX Laboratory test result [facility] Blood, Urine Blood RFX Laboratory test result [facility] Nitrite, Urine Auto RFX Laboratory test result [facility] Leukocyte Esterase Ur Auto RFX Laboratory test result [facility] RBC, Urine Auto RFX 13 /HPF 0-3 [facility] ([facility] WBC, Urine Auto RFX 2 /HPF 0-3 [facility] Bacteria, Urine Auto RFX Laboratory test result [facility] Hyaline Cast, Urine Auto RFX 0 /LPF 0-1 [facility] Squam Epithelial Cell Ur Aurfx 0 /HPF 0-6 [facility] ID Date Data Source [id number] 10/08/2020 02:10:00 PM EST [facility] Name Value Range Interpretation Code Description Data Tere rce(s) Supporting Document(s) Glucose [Mass/volume] in Capillary blood by Glucometer 388 mg/dL 70- 105 [facility] ID Date Data Source [id number] 10/08/2020 12:55:00 PM EST [facility] Name Value Range Interpretation Code Description Data Tere e(s) Supporting Document(s) White Blood Count 12.8 10 4.0-10.0 [facility] ([facility] Hemoglobin 8.2 g/dL 12.0-15.5 [facility] ([facility] Red Blood Count 3.78 10 4.00-5.40 [facility] Mean Corpuscular Volume 77.0 fl 80.0-96.0 M [facility] ([facility] Mean Corpuscular HGB Conc 28.2 g/dL 32.0-36.5 [facility] Mean Corpuscular Hemoglobin 21.7 pg 27.0-33.0 [facility] Hematocrit 29.1 % 36.0-47.0 [facility] ([facility]ks [facility] Red Cell Distribution Width 17.0 % 11.5-14.5 [facility] Neutrophils % 85.3 % 36.0-66.0 [facility] Platelet Count, Automated 500 10 150-450 [facility] [place] % 5.1 % 0.0-5.0 [facility] Lymph % 8.2 % 24.0-44.0 [facility] Eos % 0.0 % 0.0-3.0 [facility] Nucleated Red Blood Cell % 0.0 % 0-0 [facility] Immature Granulocyte % 0.7 % 0-3.0 [facility] Baso % 0.7 % 0.0-1.0 [facility] Lymph # 1.1 10 1.5-5.0 [facility] [place] # 0.7 10 0.0-0.8 [facility] Neutrophils # 11.0 10 1.5-8.5 [facility] ([facility]ry [facility] Eos # 0.0 10 0.0-0.5 [facility] Baso # 0.1 10 0.0-0.2 [facility] ID Date Data Source [id number] 10/08/2020 12:55:00 PM EST [facility] Name Value Range Interpretation Code Description Data Tere rce(s) Supporting Document(s) Venous Partial Pressure Co2 36.1 mmHg 38.0-50.0 [facility] Venous PH 7.353 units 7.330-7.430 [facility] Venous Partial Pressure O2 29.3 mmHg 30.0-50.0 [facility] Venous Total Co2 20.7 meq/L 24.0-28.0 [facility] ( [facility] Venous Hco3 19.6 meq/L 23.0-27.0 [facility] Venous O2 Saturation 49.3 % 60.0-80.0 MED[facility] NT ([facility] Venous Base Excess -5.4 [facility] ([facility]un [facility] Venous Standard Hco3 19.3 meq/L [facility] ( [facility] ID Date Data Source [id number] 10/08/2020 12:55:00 PM EST [facility] Name Value Range Interpretation Code Description Data Tere rce(s) Supporting Document(s) Ast/Sgot 8 U/L 7-37 [facility] Bilirubin,Total 0.4 mg/dL 0.2-1.0 [facility] Alt/SGPT 14 U/L 12-78 [facility] Alkaline Phosphatase 112 U/L 45-117 [facility] ([facility] Bilirubin,Direct Laboratory test result 0.0-0.2 [facility] Total Protein 8.5 GM/DL 6.4-8.2 [facility] Albumin 3.4 GM/DL 3.2-5.2 [facility] Albumin/Globulin Ratio 0.7 1.2-2.2 [facility] ID Date Data Source [id number] 10/08/2020 12:55:00 PM EST [facility] Name Value Range Interpretation Code Description Data Tere rce(s) Supporting Document(s) Creatinine For GFR 0.90 mg/dL 0.55-1.30 [facility] Glucose, Fasting 443 mg/dL 70-100 Above upper panic limits [facility] Blood Urea Nitrogen 17 mg/dL 7-18 Significant change down [facility] Potassium Serum 4.3 meq/L 3.5-5.1 [facility] Sodium Level 133 meq/L 136-145 [facility] Glomerular Filtration Rate Laboratory test result [facility] <content>Units are mL/min/1.73 m2</content>
<content></content>
<content>Chronic Kidney Disease Staging per NKF:</content>
<content></content>
<content>Stage I & II GFR >=60 Normal to Mildly Decreased</content>
<content>Stage III GFR 30- 59 Moderately Decreased</content>
<content>Stage IV GFR 15-29 Severely Decreased</content>
<content>Stage V GFR <15 Very Little GFR Left</content>
<content>ESRD GFR <15 on HYDROLOGICAL TECHNICAL OFFICER</content>
<content></content> Chloride Level 97 meq/L 98-107 [facility] Carbon Dioxide Level 21 meq/L 21-32 [facility] Anion Gap 15 meq/L 8-16 [facility] Calcium Level 9.4 mg/dL 8.5-10.1 [facility] ID Date Data Source [id number] 10/08/2020 12:55:00 PM EST [facility] Name Value Range Interpretation Code Description Data Tere rce(s) Supporting Document(s) Acetone [Presence] in Serum or Plasma 42.40 mg/dL [facility] Lipoprotein lipase [Enzymatic activity/volume] in Serum or Plasm a 33 U/L 73-393 [facility] Osmolality of Serum or Plasma 307 MOSM/KG 275-295 [facility] Choriogonadotropin.beta subunit [Moles/volume] in Seru m or Plasma Laboratory test result [facility] GESTATIONAL AGE APPROXIMATE HCG RANGE (MIU/ML) - [...] monitoring the treatment of cancer patients. Siemens Gillespie methodology. ID Date Data Source [id number] 10/08/2020 12:55:00 PM EST [facility] ([facility] Name Value Range Interpretation Code Description Data Tere rce(s) Supporting Document(s) Hemoglobin A1c 7.1 % [facility] <content>REFERENCE RANGES:</content><br/ ><content></content>
<content><=5.6% NORMAL</content>
<content>5.7-6.4% SUGGESTS IMPAIRED GLUCOSE METABOLISM/PREDIABETIC</content>
<content>>= 6.5% ABNORMAL</content>
<content></content> Estimated Average Glucose 157 mg/dL 60-110 [facility] ID Date Data Source [id number] 10/08/2020 12:55:00 PM EST [facility] Name Value Range Interpretation Code Description Data Tere rce(s) Supporting Document(s) Phosphate [Moles/volume] in Serum or Plasma 3.3 mg/dL 2.5-4.9 [facility] Magnesium [Mass/volume] in Serum or Plasma 1.8 mg/dL 1.8-2.4 [facility] ID Date Data Source [id number] 10/08/2020 12:55:00 PM EST [facility] Name Value Range Interpretation Code Description Data Tere rce(s) Supporting Document(s) Iron (Fe) 18 ug/dL 50-170 [facility] Total Iron Binding Capacity 407 ug/dL 250-450 [facility] Percent Saturation 4.4 % 13.2-45.0 [facility] ID Date Data Source [id number] 10/08/2020 12:55:00 PM EST [facility] Name Value Range Interpretation Code Description Data Tere rce(s) Supporting Document(s) Ferritin [Mass/volume] in Serum or Plasma 20 ng/mL 8-252 [facility] ID Date Data Source [id number] 10/08/2020 12:13:00 PM EST [facility] Name Value Range Interpretation Code Description Data Tere rce(s) Supporting Document(s) Glucose [Mass/volume] in Capillary blood by Glucometer 419 mg/dL 70- 105 [facility] ID Date Data Source [id number] 10/06/2020 05:44:00 PM EST [facility] Name Value Range Interpretation Code Description Data Tere rce(s) Supporting Document(s) Glucose, Fasting 223 mg/dL 70-100 [facility] Creatinine For GFR 0.79 mg/dL 0.55-1.30 [facility] Blood Urea Nitrogen 9 mg/dL 7-18 [facility] Glomerular Filtration Rate Laboratory test result [facility] <content>Units are mL/min/1.73 m2</content>
<content></content>
<content>Chronic Kidney Disease Staging per NK[facility]:</content>
<content></content>
<content>Stage I & II GFR >=60 Normal to Mildly Decreased</content>
<content>Stage III GFR 30- 59 Moderately Decreased</content>
<content>Stage IV GFR 15-29 Severely Decreased</content>
<content>Stage V GFR <15 Very Little GFR Left</content>
<content>ESRD GFR <15 on HYDROLOGICAL TECHNICAL OFFICER</content>
<content></content> Chloride Level 102 meq/L 98-107 [facility] Potassium Serum 4.0 meq/L 3.5-5.1 [facility] Sodium Level 135 meq/L 136-145 [facility] Carbon Dioxide Level 25 meq/L 21-32 [facility] Anion Gap 8 meq/L 8-16 [facility] Calcium Level 8.7 mg/dL 8.5-10.1 [facility] ID Date Data Source [id number] 10/06/2020 05:44:00 PM EST [facility] Name Value Range Interpretation Code Description Data Tere rce(s) Supporting Document(s) C reactive protein [Mass/volume] in Serum or Plasma by High sensitivity method 0.85 mg/dL 0.00-0.30 [facility] ID Date Data Source [id number] 10/06/2020 05:44:00 PM EST [facility] Name Value Range Interpretation Code Description Data Tere rce(s) Supporting Document(s) Red Blood Count 3.70 10 4.00-5.40 [facility] White Blood Count 8.7 10 4.0-10.0 [facility] Hematocrit 28.6 % 36.0-47.0 [facility] ([facility] Hemoglobin 8.0 g/dL 12.0-15.5 [facility] Mean Corpuscular Volume 77.3 fl 80.0-96.0 M [facility] ([facility] Red Cell Distribution Width 17.0 % 11.5-14.5 [facility] Mean Corpuscular HGB Conc 28.0 g/dL 32.0-36.5 [facility] Mean Corpuscular Hemoglobin 21.6 pg 27.0-33.0 [facility] Neutrophils % 69.6 % 36.0-66.0 [facility] Lymph % 20.1 % 24.0-44.0 [facility] Platelet Count, Automated 517 10 150-450 [facility] Eos % 2.6 % 0.0-3.0 [facility] Baso % 1.7 % 0.0-1.0 [facility] [place] % 5.7 % 0.0-5.0 [facility] Neutrophils # 6.1 10 1.5-8.5 [facility] Nucleated Red Blood Cell % 0.0 % 0-0 [facility] Immature Granulocyte % 0.3 % 0-3.0 [facility] Lymph # 1.8 10 1.5-5.0 [facility] Eos # 0.2 10 0.0-0.5 [facility] [place] # 0.5 10 0.0-0.8 [facility] Baso # 0.2 10 0.0-0.2 [facility] ID Date Data Source [id number] 10/06/2020 05:44:00 PM EST [facility] Name Value Range Interpretation Code Description Data Tere rce(s) Supporting Document(s) Erythrocyte sedimentation rate by 2H Westergren method 70 mm/hr 0-2 0 [facility] ID Date Data Source [id number] 10/11/2020 05:12:57 PM EST [facility], PCName: Eli MesaDOB: 1975Provider: Brenton NapolesDOS: 09/28/2020 Reason For VisitSbear Mesa is an established patient here for follow up and Eli Mesa is here for first post-op appointment. The patient is currently residing at home. Other DOI/DOO: 08/12/18. Surgery DOS: 09-15-2020. Surgery Description: Lumbar 5 to sacral 1 laminectomy with foraminotomies interbody fusion cage placement, instrumentation, iliac crest bone graft, local bone graft. The patient's pain is managed by Dr Johnson. (protective signal installer). 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 History of Present IllnessPatient is a 45-year-old female presents to the office for her first postop visit following lumbar surgery on 09/15/2020. Complaining of low back pain with associated muscle spasms. Denies any radicular symptoms or signs of infection. Utilizing hydrocodone as needed for pain AssessmentLow back painAftercare following musculoskeletal surgeryPostsurgical arthrodesis status Plan Start: tiZANidine HCl - 4 MG Oral Tablet; one tab po 6hrs prn spasms MDD:4 Rx By: Brenton Napoles; Dispense: 0 Days ; #:40 Tablet; Refill: 1;For: Aftercare following surgery of the musculoskeletal system, Low back pain; PHIL = N; Verified Transmission to [facility] #13; Last Updated By: [employer] [employer]; 09/28/2020 2:43:35 PM Renew: HYDROcodone-Acetaminophen 5-325 MG Oral Tablet; TAKE 1-2 TABLETSEVERY 4 HOURS NEEDED FOR POSTOP PAIN, DO NOT EXCEEDMAX DAILY DOSE OF 8 TABLETS. MDD:8 Rx By: Brenton Napoles; Dispense: 0 Days ; #:80 Tablet; Refill: 0;For: Aftercare following surgery of the musculoskeletal system, Low back pain; PHIL = N; Verified Transmission to [facility] #13; Msg to Pharmacy: Reference #:[id number]; Last Updated By: [employer] [facility] [employer]; 09/28/2020 4:18:45 PM X-Ray I Lumbosacral - 2 views (XRays were ordered, obtained and interpreted today inthe office. Indication: pain/dysfunction.); Status:Complete; Done: 28Sep2020 Perform:SOS22; Due:12Oct2020; Last Updated By:Hina De León; 09/28/2020 2:08:47 PM;Ordered; For:Low back pain; Ordered By:Brenton Napoles; Patient is status post L5-S1 laminectomy with PLIF on 09/15/2020. I encouraged her to continue with normal ADLs. Provided prescription for hydrocodone to use sparingly as needed for pain. Provided prescription for tizanidine 4 mg p.o. every 8 hours as needed for muscle spasms. Follow-up in 4 weeks for clinical reassessment and x-ray recheck. DisclaimersThis document was dictated and electronically signed using [employer] software. A reasonable attempt at proof reading has been made to minimize errors. Please call with any questions. Signatures Electronically signed by : Cailin Wolfe; Oct 09 2020 9:32PM EST (Author) Electronically signed by : Eder Polo M.D.; Oct 11 2020 5:12PM EST Name Value Range Interpretation Code Description Data Tere rce(s) Supporting Document(s) ID Date Data Source [id number] 09/17/2020 09:07:59 PM EDT [facility] NT INFORMATIONPatient MRN Name Date of Age Gend*PT [id number] Eli Mesa 1975 45 years F IPPT Location Admission Date/Time Visit ID Attending [id number] 09/15/20 0524 --- --- EPI ID CSN Admitting Provider [id number] Eder Polo MD([id number]) Attestation signed by Eder Polo MD at 09/17/2020 9:07 PMSignature: FELICITA Hartate: September 17, 2020Time: 9:07 PM ORTHOPEDIC DISCHARGE SUMMARYPatient Name: Eli Mesa of : 1975 Age 45 yearsPrimary Physician: MARY HERNANDES MD PCP Tzwdgjkii Date: 09/15/2020 Discharge Date: 09/17/2020Admission Provider: Eder Polo MD Discharge Provider: TANYA Mcmullenischnery Diagnoses:Principal Problem: Spondylolisthesis of lumbosacral regionActive Problems: Herniated nucleus pulposus, L5-S1 Diabetes mellitusResolved Problems: * No resolved hospital problems. *Surgical Procedures:Procedure(s):LUMBAR 5 SACRAL 1 LAMINECTOMY WITH FORAMINOTOMIES INTER BODY FUSION CAGEPLACEMENT, INSTRUMENTATION, ILIAC CREST BONE GRAFT, LOCAL BONE GRAFT (N/A)Brief Hospital Course:Patient was admitted through ambulatory unit. Patient underwent procedurewithout any complications. Postoperatively, patient had DVT prophylaxis withMechanical means. Hospital course was uneventful. Patient had physical therapywhile in the hospital. Pain control was maintained with IV and oral painmedications initially and transitioned to only oral when tolerating pain withoutany IV medications. Once discharge criteria was met, the patient was found to bestable for discharge. Please see discharge instructions and medications forfurther details.Discharge disposition: She will be [facility] to home in stable condition.Discharge Weight Bearing Status:WBATDischarge Medications:Patient was instructed to refrain from driving or operating machinery untilcleared by surgeon.Current Discharge Medication ListSTART taking these medications DetailsHYDROcodone-acetaminophen (NORCO) 5- 325 MG per tablet Take 1-2 tablets by mouthevery 4 (four) hours as needed Max Daily Amount: 12 tabletsQty: 30 tablet, Refills: 0CONTINUE these medications which have NOT CHANGED DetailsFLUoxetine (PROZAC) 40 MG capsule Take 40 mg by mouth dailygabapentin (NEURONTIN) 300 MG capsule Take 300 mg by mouth 3 (three) times a dayInsulin Glargine (BASAGLAR KWIKPEN) 100 UNIT/ML SOPN Inject 25 Units under theskin dailyinsulin lispro (ADMELOG) 100 UNIT/ML injection Inject under the skin 3 timesdaily sliding scalemethocarbamol (ROBAXIN) 500 MG tablet Take 50 0 mg by mouth 2 (two) times a daymirtazapine (REMERON) 15 MG tablet Take 15 mg by mouth nightlytiZANidine (ZANAFLEX) 4 MG tablet Take 4 mg by mouth nightlyvarenicline (CHANTIX) 1 MG tablet Take 1 mg by mouth 2 (two) times a daySTOP taking these medications acetaminophen (TYLENOL) 500 MG tabletFollow Up Instructions:An After Visit Summary was printed and given to the patient.Items needing special attention: noneDischarge Exam:Blood Pressure: BP: 120/74 Pulse: Heart Rate: 86Temperature: Temp: 99.6 F Respirations: Resp: 14Admission Weight: Weight: 69.9 kg (154 lb) O2 Saturation: SpO2: 97 %Discharge Weight: Weight: 69.9 kg (154 lb) BMI: Body mass index is 26.43 kg/m .Physical ExamGeneral: A/O x 3, NAD.Respiratory: Breathing unlaboredOrthopedic: lumbar spine exam: Dressing clean, dry and intact. Sensation intactbilaterally. Strength intact bilaterally, 5/5 DF/PF bilaterally.Diagnostics:Lab ResultsComponent Value Date WBC 8.7 09/07/2020 HGB 8.9 (L) 09/07/2020 HCT 24.5 (L) 09/16/2020 MCV 76.2 (L) 09/07/2020 PLT 338 09/07/2020Lab ResultsComponent Value Date INR 1.02 09/07/2020 PROTIME 10.6 09/07/2020Lab ResultsComponent Value Date CREATININE 0.72 09/16/2020 BUN 9 09/16/2020 NA 137 09/16/2020 K 4.0 09/16/2020 CL 103 09/16/2020 CO2 25 09/16/2020 GLU 242 (H) 09/16/2020Significant Imaging:noneConsults:noneSignature: [phone]: September 17, 2020Time: 7:43 AM Name Value Range Interpretation Code Description Data Tere rce(s) Supporting Document(s) ID Date Data Source [id number] 09/17/2020 09:43:58 AM EDT [facility] Name Value Range Interpretation Code Description Data Tere rce(s) Supporting Document(s) POC NOVA GLU 220 mg/dL (70-99) H [facility] [place] [facility] ID Date Data Source [id number] 09/16/2020 05:30:06 PM EDT [facility] Name Value Range Interpretation Code Description Data Tere rce(s) Supporting Document(s) POC NOVA GLU 159 mg/dL (70-99) H [facility] [place] [facility] ID Date Data Source [id number] 09/16/2020 02:24:04 PM EDT [facility] Name Value Range Interpretation Code Description Data Tere rce(s) Supporting Document(s) POC NOVA GLU 243 mg/dL (70-99) H [facility] [place] [facility] ID Date Data Source [id number] 09/16/2020 09:41:27 AM EDT [facility] Name Value Range Interpretation Code Description Data Tere rce(s) Supporting Document(s) POC NOVA GLU 187 mg/dL (70-99) H [facility] [place] [facility] ID Date Data Source [id number] 09/16/2020 06:01:04 AM EDT [facility] Name Value Range Interpretation Code Description Data Tere rce(s) Supporting Document(s) SODIUM 137 mmol/L (136-145) [facility] POTASSIUM 4.0 mmol/L (3.6-5.2) [facility] CHLORIDE 103 mmol/L (100-108) [facility] CO2 25 mmol/L (22-31) [facility] ANION GAP 9 mmol/L (7-16) [facility] UREA NITROGEN 9 mg/dL (7-24) [facility] CREATININE 0.72 mg/dL (0.60-1.00) [facility] BUN/CREAT RATIO 12.5 RATIO (10.0-20.0) [facility] GLUCOSE 242 mg/dL (70-99) H [facility] CALCIUM 7.9 mg/dL (8.4-10.2) L [facility] GFR >60 ml/min/1.73m2 (>59) [facility] GFR ( AMER) >60 ml/min/1.73m2 (>59) [facility] GFR INTERPRETATION [facility] [place] --NORMAL KIDNEY FUNCTION OR MILD DISEASE - GFR >OR= 60CHRONIC KIDNEY DISEASE - GFR 15 - 59RENAL FAILURE - GFR <15 Est. GFR calculation based on the MDRDstudy equation, which assumes a steadystate for creatinine. Est. GFR should notbe used for medication dosing. ID Date Data Source [id number] 09/16/2020 05:36:10 AM EDT [facility] Name Value Range Interpretation Code Description Data Tere rce(s) Supporting Document(s) HCT 24.5 % (36.0-47.0) L [facility] ID Date Data Source [id number] 09/16/2020 01:11:20 AM EDT [facility] Name Value Range Interpretation Code Description Data Tere rce(s) Supporting Document(s) POC NOVA GLU 267 mg/dL (70-99) H [facility] [place] [facility] ID Date Data Source [id number] 09/15/2020 10:09:14 PM EDT [facility] Name Value Range Interpretation Code Description Data Tere rce(s) Supporting Document(s) POC NOVA GLU 150 mg/dL (70-99) H [facility] [place] [facility] ID Date Data Source [id number] 09/15/2020 04:11:02 PM EDT [facility] Name Value Range Interpretation Code Description Data Tere rce(s) Supporting Document(s) POC NOVA GLU 176 mg/dL (70-99) H [facility] [place] [facility] ID Date Data Source [id number] 09/15/2020 12:50:48 PM EDT [address] [place] [id number] Name: ELI MESADOB: 1975Sex: FOrdering Provider: EDER POLOAuthorizing Prov: EDER POLOReferrmartin Provider: Procedure Performed: XR OR SPINE LUMBAR CONTINUATIONExam Date: 09/15/2020 12:44MRN: [id number] Number: [id number] Class: InpatientAccount #: [id number] for Exam: Herniated nucleus pulposus, L5-S1 [M51.27]Spondylolisthesis, lumbosacral region [M43.17]Low back pain [M54.5]Technique: Fluoroscopy with no digital spot images obtained.Comparison: Prior radiographs performed earlier.Findings: Sequential small [id number] images were obtained during posterior fusion at L5-S1. Sequential images show placement of pedicle screws. Interbody spacer is in satisfactory position. Anterolisthesis of L5 on S1 is again noted.IMPRESSION: Posterior fusion L5-S1 as above.Report electronically signed by: JESICA LAUGHLIN On 09/15/2020 12:50 PMWorkstation ID: [id number] Name Value Range Interpretation Code Description Data Tere rce(s) Supporting Document(s) ID Date Data Source [id number] 09/15/2020 12:37:02 PM EDT [facility] Name Value Range Interpretation Code Description Data Tere rce(s) Supporting Document(s) POC NOVA GLU 357 mg/dL (70-99) H [facility] [place] [facility] ID Date Data Source [id number] 09/15/2020 11:34:01 AM EDT [facility]PAT[facility] NT INFORMATIONPatient MRN Name Date of Age Gend*PT [id number] Fredrick Mesarenetta Stanley 1975 45 years F IPPT Location Admission Date/Time Visit ID Attending ProviderPERIOP EYOTA 09/15/20 0524 --- Edre Polo MD([id number]) EPI ID CSN Admitting Provider [id number] Eder Polo MD([id number])Operative ReportPatient Name: Eli Mesa of : 1975 Age 45 yearsPrimary Physician: MARY HERNANDES MD PCP Txdj of Surgery: 09/15/2020Diagnostic InformationPre-Op Diagnosis: L5-S1 spondylolisthesis; lumbar radiculopathyPost- Op Diagnosis: SameProcedure(s) Procedure(s):LUMBAR 5 SACRAL 1 LAMINECTOMY WITH FORAMINOTOMIES INTER BODY FUSION CAGEPLACEMENT, INSTRUMENTATION, ILIAC CREST BONE GRAFT, LOCAL BONE GRAFT (N/A)Surgical StaffSurgeon: MARGARETH Harturgical Staff: OR Substance Abuse Nurse: Ivette Guardado RNRadiology Tech: Candido Pollock Relief Substance Abuse Nurse: Isabel Swain RNOR Relief Scrub: Ivette Diane; Riya Black Scrub Person: Owen ChristianNeurophysiology Tech: MARGARETH Colvinurgical Reproduction Production Manager: Donato Warner Wire Roller is a Physician's Vamp Stitcher ([place]), the Orthopedic Resident wasnot availableAnesthesiaAnesthesia Staff: Anesthesiologist: YINKA SchroederRNA: Sarah Thorne CRNAStudent Nurse Community Education Specialist: Clay Menesesesthesia: *Anesthesia ServicesOperative Description Procedure: 1. L5-S1 interbody fusion- posterior technique 2. L5-S1 posterolateral spinal fusion 3. Prosthetic cage placement into the L5-S1 interspace. This was a Globus cagepacked with autogenous bone graft. Also autogenous bone graft packed into theinterspace (s) prior to placing the cage. 4. Spinal instrumentation from L5 to S1 using Globus pedicle screw system 5. Local bone graft/bone harvest from lamina and spinous processes 6. Right iliac crest bone graft through separate fascial incision-morselized 7. L5 and S1 laminectomies with partial facetectomies and bilateralforaminotomies with decompression of the cauda equina midline at each level aswell as decompression of bilateral L5 and S1 nerve roots8. Intraoperative electrophysiologic monitoring by Dr. McclellanBL: 300 ccFluid: CrystalloidDrains: Weiner and HemovacComplications: noneIndications: Patient is a 45 years Female with lower back and leg pain. Workupincluding MRI did show an L5-S1 spondylolisthesis with severe foraminalnarrowing. Patient failed conserve measures. Options reviewed with risks andbenefits-she wished to proceed with surgical intervention. Did review what thesurgery would involve including risks and benefits as well as the chances ofsuccesses and failures and potential complications. No guarantees given.Antibiotics: Intravenous Kefzol was given within one hour of incision time andordered to be stopped within 24 hours of surgery.Procedure:Patient brought to operating room he received general anesthesia. Monitoringneedles placed per routine. Weiner catheter was placed. Next rolled onto theJackson table in the prone position on the Anish frame. All pressure pointschecked and padded next the patient's back was prepped and draped in usualsterile fashion using ChloraPrep system. Please note throughout the procedure,3.5 loupe magnification was used. Next using a skin knife, midline incision from L5 to S1. Carried deeply untilthe deep fascia was encountered. Fascia incised on each side usingelectrocautery and carried down to the level of the lamina as well as exposingthe transverse process of L5 and sacral ala bilaterally. Intraoperative x-raysobtained for localization.Next using a Leksell rongeur, all the spinous process of L5 and the superiorhalf of S1 was removed.Please note this bone was saved for local bone graft/bone harvest.Next using the Kerrison rongeurs, a nice wide midline laminectomy performed byremoving all the lamina of L5 and the superior one half lamina of S1. Thisdecompressed the cauda equina in the midline nicely at each level.Again this bone was saved for local bone graft/bone harvest.Again using a Kerrison Paris, lateral recesses were decompressed by performingpartial facetectomies and bilateral foraminotomies, decompressing bilateral L5and S1 nerve rootsNext attention placed toward the right iliac crest region. This was done bytunneling under the skin. Fascia incised exposing the outer table. Usingosteotome, outer table was removed. Using curettes, cancellous bone removed.Wound irrigated. Fascia closed using 0 Vicryl with interrupted sutures. Areainjected with 20 cc 1/2% marcaine with epinephrine.Attention placed back midline incision. Disc space approach the patient's leftside. Retractors inserted. Disc incised. Sudhir was used to prepare endplates.Next taking a Globus cage packed with autogenous bone graft, tapped into placefrom the patient's left side for L5-S1 interbody fusion and prosthetic cageplacement into the L5-S1 interspace. Also autogenous bone graft packed into theinterspace(s) prior to placing the cageNext under C-arm guidance, pedicle screws placed in the pedicles of L5 and [id number]. Checked with C-arm and noted to be in proper position. Also canalexplored using a probe and no evidence of any intra canal penetration of screws.Each screw checked electrophysiologically and no evidence of cortical breach ofany screws.Bone decorticated bilaterally for the L5-S1 posterior lateral spinal fusion.Bone graft packed out bilaterally for the L5-S1 posterolateral spinal fusion.Screws hooked up using the dora/cap connectors and locked down bilaterally.Wound was copiously irrigated. Wound irrigated with Irrecept. Wound washemostatic. Deep drain inserted. Fascia closed using 1. Vicryl suture. Skinclosed using 2 Vicryl for subcu and 3 0 Monocryl for skin. Sterile dressingapplied.Please note throughout the procedure, electrophysiologic monitoring revealedstrong signals that were unchanged throughout the procedure.Patient rolled onto a stretcher, extubated, moving all 4 extremities and broughtto recovery room stable conditionOperative InformationSpecimen(s): @ORSPECMN@Grafts/Implants:Implant Name Type Inv. Item Serial No. Mud Boss Lot No. LRB No. UsedCREO DLX THREADED LOCKING CAP [employer] N/A 4CREO DLX POLYAXIAL SCREW [employer] N/A 2RISE SPACER [employer] N/A 1CREO DLX POLYAXIAL SCREW [employer] N/A 1CREO DLX POLYAXIAL SCREW [employer] N/A 26.0mm curved dora 40mm [employer] N/A 2All significant tasks completed under the direction of the primary surgeonEder Polo MD Name Value Range Interpretation Code Description Data Tere rce(s) Supporting Document(s) ID Date Data Source [id number] 09/15/2020 11:58:27 AM EDT [facility] Name Value Range Interpretation Code Description Data Tere rce(s) Supporting Document(s) POC NOVA GLU 365 mg/dL (70-99) H [facility] [place] [facility] ID Date Data Source [id number] 09/15/2020 03:34:48 PM EDT [facility] Name Value Range Interpretation Code Description Data Tere rce(s) Supporting Document(s) POC NOVA GLU 266 mg/dL (70-99) H [facility] [place] PERFORMED BY [facility] ID Date Data Source [id number] 09/15/2020 09:12:45 AM EDT [address] [address]Eidcgwn Name: ELI MESAB: 1975Sex: FOrdering Provider: EDER POLOAuthorishelton Prov: EDER POLOReflissa Provider: Procedure Performed: XR OR SPINE LUMBARExam Date: 09/15/2020 09:07MRN: [id number] Number: [id number] Class: InpatientAccount #: [id number] for Exam: Herniated nucleus pulposus, L5-S1 [M51.27]Spondylolisthesis, lumbosacral region [M43.17]Low back pain [M54.5]Technique: Lateral view obtained.Comparison: NoneFindings: There is a needle marking the interspinous space at L3-4. A second needle more inferiorly is positioned at the S2 level. There is spondylolisthesis of L5 on S1 grade 1/2. Considerable disc space narrowing at L5-S1 is noted.IMPRESSION: Operative localization images as above.Report electronically signed by: JESICA LAUGHLIN On 09/15/2020 9:12 AMWorkstation ID: [id number] Name Value Range Interpretation Code Description Data Tere rce(s) Supporting Document(s) ID Date Data Source [id number] 09/15/2020 03:34:48 PM EDT [facility] Name Value Range Interpretation Code Description Data Tere rce(s) Supporting Document(s) POC NOVA GLU 185 mg/dL (70-99) H [facility] [place] PERFOR[facility] BY [facility] ID Date Data Source [id number] 09/15/2020 08:57:19 AM EDT [address] [address]Ahq[place]sa Name: ELI MESADOB: 1975Sex: FOrdering Provider: EDER POLOAuthorizing Prov: EDER POLOReferrmartin Provider: Procedure Performed: XR OR SPINE LUMBAR CONTINUATIONExam Date: 09/15/2020 08:47MRN: [id number] Number: [id number] Class: InpatientAccount #: [id number] for Exam: Herniated nucleus pulposus, L5-S1 [M51.27]Spondylolisthesis, lumbosacral region [M43.17]Low back pain [M54.5]Technique: Lateral view obtained.Comparison: Study performed earlier in the day.Findings: There are surgical instruments posteriorly at the L4-5 and L5-S1 level. Spondylolisthesis of L5 on S1 with disc space narrowing is noted. Surgical sponges are identified in the operative site.IMPRESSION: L4-5 and L5-S1 localization.Report electronically signed by: JESICA LAUGHLIN On 09/15/2020 8:57 AMWorkstation ID: [id number] Name Value Range Interpretation Code Description Data Tere rce(s) Supporting Document(s) ID Date Data Source [id number] 09/15/2020 03:34:48 PM EDT [facility] Name Value Range Interpretation Code Description Data Tere rce(s) Supporting Document(s) POC NOVA GLU 175 mg/dL (70-99) H [facility] [place] PERFORMED BY [facility] ID Date Data Source [id number] 09/15/2020 07:50:05 AM EDT [facility] NT INFORMATIONPatient MRN Name Date of Age Gend*PT [id number] Eli Mesa 1975 45 years F SDAPT Location Admission Date/Time Visit ID Attending Provider --- --- --- --- EPI ID CSN Admitting Provider [id number] ---AirwayPatient location during procedure: ORUrgency: electiveDifficult airway: noAdvanced airway equipment used: noStaffingPerformed by: Clay Virkdidora and Patient ConditionIndications for airway management: anesthesia and airway protectionPreoxygenated: yesPatient position: sniffingIn- line stabilization: yesMask ventilation: 2 - vent by mask + OA or adjuvant +/- NMBAFinal Airway/ApproachesFinal airway type: ETTNumber of attempts at final approach: 1Number of other approaches attempted: 0Final Airway DetailsFinal ETT airway: ETT - singleCuffed: yesTechnique used for successful ETT placement: direct laryngoscopyCricoid pressure: noRSI: noInsertion site: oralBlade type/size: MAC 3ETT size: 7.0 mmMeasured from: lipsETT to lips: 22 cmPlacement verified by: chest auscultation and + BJFF8Arkicabcuzlm: equal breath sounds bilateralGrade view: grade I - full view of glottis Name Value Range Interpretation Code Description Data Tere rce(s) Supporting Document(s) ID Date Data Source [id number] 09/15/2020 06:49:25 AM EDT [facility] Name Value Range Interpretation Code Description Data Tere rce(s) Supporting Document(s) POC NOVA GLU 133 mg/dL (70-99) H [facility] [place] [facility] ID Date Data Source [id number] 09/15/2020 06:35:55 AM EDT [facility] Name Value Range Interpretation Code Description Data Tere rce(s) Supporting Document(s) POC NOVA GLU 116 mg/dL (70-99) H [facility] [place] [facility] ID Date Data Source [id number] 09/15/2020 06:26:12 AM EDT [facility]PAT[facility] NT INFORMATIONPatient MRN Name Date of Age Gend*PT [id number] Balaji Eli J 1975 45 years F SDAPT Location Admission Date/Time Visit ID [facility]24 --- Eder Polo MD([id number]) EPI ID CSN Admitting Provider [id number] Eder Polo MD([id number])Pre-op note/discusson/H&P review:Long discussion today.Options were reviewedProcedure was reviewedRisks/potential complications were reviewedStephancliff Mesa wishes to proceed with surgeryNo guarantees givenPlease refer to the patient's H&P completed within 30 days prior to admissionfor details.I have reviewed the patient's H&P and there are no significant changes in thepatient's history nor physical exam.--Eder Polo MD Name Value Range Interpretation Code Description Data Tere rce(s) Supporting Document(s) ID Date Data Source [id number] 09/15/2020 06:17:51 AM EDT [facility] Name Value Range Interpretation Code Description Data Tere rce(s) Supporting Document(s) POC NOVA GLU 87 mg/dL (70-99) [facility] [place] [facility] ID Date Data Source [id number] 09/15/2020 06:50:25 AM EDT [facility] Name Value Range Interpretation Code Description Data Tere rce(s) Supporting Document(s) POC [facility] <5.0 IU/L [facility] [place] INTERPRETATION:<5.0 NEGATIVE5.0- 25.0 INDETERMINATE>25.0 POSITIVELEVELS BETWEEN 5 AND 25 IU/L MAY INDICATEEARLY AND SHOULD BE REPEATED YAMEL BLOOD SAMPLE AFTER 48 HOURS.PERFORMED BY [facility] ID Date Data Source [id number] 09/15/2020 06:04:58 AM EDT [facility] Name Value Range Interpretation Code Description Data Tere rce(s) Supporting Document(s) POC NOVA GLU 120 mg/dL (70-99) H [facility] [place] [facility] ID Date Data Source [id number] 09/15/2020 05:54:25 AM EDT [facility] Name Value Range Interpretation Code Description Data Tere rce(s) Supporting Document(s) POC NOVA GLU 37 mg/dL (70-99) LL [facility] [place] [facility] ID Date Data Source [id number] 09/10/2020 10:24:00 AM EDT [facility] Name Value Range Interpretation Code Description Data Tere rce(s) Supporting Document(s) SARS coronavirus 2 RNA [facility] This lab was ordered by [facility] and reported by [employer]. ID Date Data Source [id number] 09/11/2020 12:07:56 PM EDT [facility] Name Value Range Interpretation Code Description Data Tere rce(s) Supporting Document(s) SARS-COV-2 [facility] [place] Not DetectedReference range: Not Detecte d This nucleic acid amplification test was developed and its performance characteristics determined by [employer] Nucleic acid amplification tests include PCR and TMA. This test has not been FDA cleared [...] section 564(b)(1) of the Act, 21 U.S.C. 360bbb-3(b) (1), unless the authorization is terminated or revoked sooner. When diagnostic testing is negative, the possibility of a false negative result should be considered in the context of a patient's recent exposures and the presence of clinical signs and symptoms consistent with COVID- 19. An individual without symptoms of COVID- 19 and who is not shedding SARS -CoV-2 virus would expect to have a negative (not detected) result in this assay. Performed At: [facility] [id number] Raymundo Valero MD Ph:[phone] ID Date Data Source [id number] 09/07/2020 03:35:13 PM EDT [facility] Name Value Range Interpretation Code Description Data Tere rce(s) Supporting Document(s) EKG 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/2yfj0lsqoX/HR1z9YOSJcYe566a3f6KalbxqUN2e8k7ove9Ybv fmuVupewtRp6QsxYl0NtKg1sfnaulBprjMgBoa1gt2 IAuYR2fGVurDSEbu8/7OnE2o6I649Ad/m9kdmREUdLBbpreLHvLS5SkUY7Vk9m1k6O19YfbD15qmgCcn iD5njB7Gss7hZPKPVaVA9ose+5b6ddbJyDdo0kx3L4+M3inTh5t+ldVFYie6mP5D+279cthjpJqhZ6rM 5ulpsgWd3nhU4b3xL6bbJNOJbQ+LT3ymvDws+vO82q Nohemi/tt2OlFYihEx4dQY4fSzTjyYF1tigrwqf9mzIWciomu+M5dDu+BEV6E8crc3zgRGG/Vo0Yi3vUnKB [file] 6++0L8kYM7TZCm8oHm8xQhlw46/r9o39Q18te2n1sf Z72d0T+1ezl/17l7lsvB/YRjfLgAlRa3qcaC6ajlDbZ97OnMrW8mr/M9Qlph84qNw+n3NMYLkYiw5xnp fJBk5OgMiOGAhciDLk0ri1vkh7zjn28xHT/a6p/SvX///KjX7ef+SV7M2J/geYmWBxG39h+5/b1b/My/ 3zm/yXebl/bqD/Mi/26QBChOgqS28r+9rsv9E0vpVy yk9DewPfm+vj2bF/2DvmAjtq8Ddt0o4/x/OJNJto4hc/i0kj1T9V/g30b6B/A+UG+ylx5eadNUpv4K2T RbtK68h/U7/S/14tJ8SUoWR3m8j7DE0Q01Rj/Q3RNtwv4ixBuijeWa6t1crK3NIZhlbsu0dj7KACu2O9 3CmVa+c2WsqXnVPaOA9n98Sc0It410qqNOwyf4eyeF n/auuZs/5mfu+yIq09YjyS4ua9A4v73ROTk0yCBqHEJldVJ/pFwvzGqacb9m7evO5aNT5amI/Gp72cdf Ky4fRAxp9i8ayw8lznE0mkZqGTuErxfg8kT0FZ6eGYeVZPNBj0Td06RQhe4wQsdisot+eyqJxTC/JqTQ NGuXMAT+DR0CJGPRQwbXaD13qwdIjgLjI5OH8CkNvh EfS09W7oMeBmpBAfch3wJlkItFjLov0562F/L+tKWccWkq2Cwy+B3WYrgo0N4qxjM2ddzIGN8jkulS6x kRW88XtoumLurnRQlxAOqhnnrYVm4Cwtwkq61BOMKCsE0TzdgwNYpCbib17+Do//Mi/3z3fxX+blzr3K c+3T+9e6uuEt+vRiB67+5bo9cE7h2vp3b/0r/f85x9 H7j7yK/H/tx45/qPq4o14q/zIv9/tbtbOe+ZWrdfPc8/SLVfmXebl/sTv/Or13vutzklsbf/a/zMv9c5 t6n6f5fhuBgD+7CraFiroaCYeHeoD74xfxCcfr014xrB12dQilkaZWdaAriZVbnbZn5yHaBoonR7/fjh bIPr8IZm71fQeZwX6mt0+jhx3zoBU1j3a5WBrHQ+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 Eder Polo.Informant: The patient who is reliable.Chief Complaint: Back pain that radiates down the right leg.HISTORY OF PRESENT ILLNESS: 45 year old white female presents with a chiefcomplaint of low back pain. Pain has been present for two years. The pain is atthe low back, then it radiates down the right leg. She has numbness to bothfeet. The right leg is weak. The activities that will worsen the pain includestanding in one position, vacuuming, walking and sitting. The measure thatdecreases the pain is changing positions.The patient met with Dr. Polo, options were discussed and she has electedto undergo lumbar 5 sacral 1 laminectomy with foraminotomies possible interbodyfusion possible cage placement instrumentation iliac crest bone graft local bonegraft globus on 09/15/2020.PAST MEDICAL HISTORY:Past Medical His tory:Diagnosis Date Diabetes mellitus type 1 Full dentures Herniated nucleus pulposus, L5-S1 Low back pain Spondylolisthesis of lumbosacral regionPAST SURGICAL HISTORY:Past Surgical History:Procedure Laterality Date SECTION x 3 DENTAL EXTRACTIONS TONSILLECTOMYALLERGIES: No Known Drug AllergiesMEDICATIONS:Prior to Admission medicationsMedication Sig Start Date End Date Taking? Authorizing Provideracetaminophen (TYLENOL) 500 MG tablet Take 2 tablets by mouth every 6 (six)hours as needed for pain Historical Provider, FLUoxetine (PROZAC) 40 MG capsule Take 40 mg by mouth daily HistoricalProvider, gabapentin (NEURONTIN) 300 MG capsule Take 300 mg by mouth 3 (three) times a dayHistorical Provider, Insulin Glargine (BASAGLAR KWIKPEN) 100 UNIT/ML SOPN Inject 25 Units under theskin daily Historical Provider, insulin lispro (ADMELOG) 100 UNIT/ML injection Inject under the skin 3 timesdaily sliding scale Historical Provider, Vilmaethocarbamol (ROBAXIN) 500 MG tablet Take 500 mg by mouth 2 (two) times a dayHistorical Provider, Vilmairtazapine (REMERON) 15 MG tablet Take 15 mg by mouth nightly HistoricalProvider, tiZANidine (ZANAFLEX) 4 MG tablet Take 4 mg by mouth nightly HistoricalProvider, varenicline (CHANTIX) 1 MG tablet Take 1 mg by mouth 2 (two) times a dayHistorical Provider, Vilmaeloxicam (MOBIC) 15 MG tablet Take 15 mg by mouth daily 09/07/20 HistoricalProviMARGARETH beltranocial HistoryTobacco Use Smoking status: Current Every Day Smoker Packs/day: 0.50 Types: Cigarettes Smokeless tobacco: Never Used Tobacco comment: 6-8 cigarettes a daySubstance Use Topics Alcohol use: No Drug use: NoHistory reviewed. No pertinent family history.REVIEW OF SYSTEMS:Constitution: Weight stable. Denies fatigue, fever or chills.HEENT: Denies any blurred vision, double vision, dizziness, tinnitus, dysphagiaor headaches.Respiratory: Denies any shortness of breath, cough, yellow sputum prod uction orwheezing.Cardiovascular: Denies any chest pain, pressure or tightness. Denies anyparoxysmal nocturnal dyspnea or orthopnea.Muscle/Skeletal System: Pain to the low back as above.Neurologic: Denies tremors or syncope.GI: Denies any nausea, vomiting, diarrhea, constipation or melena.: Denies any dysuria, hematuria or nocturia.Endocrine: Denies polyuria, polydipsia or polyphagia. Denies any heat or coldintolerance, fatigue or night sweats.Hematology: Denies any bleeding or bruising tendencies.Code Status: Full code.HCP: None per patient.PHYSICAL EXAM:General: She is a 45 year old, pleasant white female, in no acute distress attime of examination. Vitals on arrival to the office were: BP 140/70 (BPLocation: Right upper arm, Patient Position: Sitting) | Pulse 97 | Ht 1.626 m(5' 4") | Wt 69.9 kg (154 lb) | SpO2 98% | BMI 26.43 kg/m Body mass indexis 26.43 kg/m .Skin is pink, warm and dry.HEENT: Head is normocephalic, atraumatic. Driscoll conjunctivae. Anicteric sclerae.Pupils are equal, round, reactive to light and accommodation. Extraocularmovements are intact. Ears: Without drainage or lesion. Mouth: Full dentures inplace. She has a class II airway. Neck is supple midline without cervicaladenopathy. There is no tonsillo pharyngeal congestion. Mucous membranes aremoist. There are no oral lesions. No jugular distention. No carotid bruits. Nothyromegaly.CHEST/BREAST: A/P less than transverse.LUNGS: Clear to auscultation. No wheezes, rhonchi or crackles.HEART: Rate rhythm regular. S1, S2. Grade 1/6 systolic murmur at RSB. Nodiastolic murmur, rub or gallop.ABDOMEN: Bowel sounds positive. Soft, non tender. No rebound tenderness. Nohepatosplenomegaly. Negative CVAT.GENITAL/RECTAL: Deferred.NEUROLOGICALLY: Cranial nerves II through XII are grossly intact.VASCULAR: Pulses are s ymmetric. No edema.IMPRESSION and PLAN:Primary Diagnosis: Herniated nucleus pulposus, L5-S1; spondylolisthesis,lumbosacral region; low back pain. Surgery as per Dr. Polo.Secondary Diagnosis and Plan:1. Diabetes: Type 1. Routine blood glucose monitoring. Sliding scaleinsulin coverage while inpatient.2. GI prophylaxis: Per surgeon.3. DVT prophylaxis: Early ambulation. SCDs. Heparin or low MW heparinat attending's discretion.Based on above medical co morbidities, length of stay may be prolonged greaterthan previously anticipated.ALLERGIES:Patient has no known drug allergies.09/07/2020 3:00 PMSleilani Velarde MD Name Value Range Interpretation Code Description Data Tere rce(s) Supporting Document(s) ID Date Data Source [id number] 09/07/2020 09:50:22 PM EDT [facility] Name Value Range Interpretation Code Description Data Tere rce(s) Supporting Document(s) HEMOGLOBIN A1C @ 7.7 % (4.0-6.0) H [facility] Performed using Siemens Gillespie immunoassa y.Care must be taken when interpreting KnT3ughcswti in patients with a hemoglobin variantor decreased erythrocyte lifespan. Values 5.7 - 6.4% suggest prediabetes.Values >=6.5% are diagnostic for diabetes.REFERENCE: DIABETES CARE 2018: 41(S13-S27). EST AVERAGE GLUCOSE 174 mg/dL [facility] ID Date Data Source [id number] 09/07/2020 09:48:42 PM EDT [facility] [place] SPEC EXP DATE 09/16/2020PATI ENT ABO/Rh O POSITIVEANTIBODY SCREEN NEGATIVETESTING SITE PERFORMED AT [address] [place], [place] [address]OOD BANK COMMENT BLOOD TYPE CONFIRMED. Name Value Range Interpretation Code Description Data Tere rce(s) Supporting Document(s) TYPE AND SCREEN [facility] ID Date Data Source [id number] 09/07/2020 07:31:58 PM EDT [facility] Name Value Range Interpretation Code Description Data Tere rce(s) Supporting Document(s) SODIUM 138 mmol/L (136-145) [facility] POTASSIUM 4.3 mmol/L (3.6-5.2) [facility] CHLORIDE 104 mmol/L (100-108) [facility] CO2 26 mmol/L (22-31) [facility] ANION GAP 8 mmol/L (7-16) [facility] UREA NITROGEN 10 mg/dL (7-24) [facility] CREATININE 0.86 mg/dL (0.60-1.00) [facility] BUN/CREAT RATIO 11.6 RATIO (10.0-20.0) [facility] GLUCOSE 151 mg/dL (70-99) H [facility] CALCIUM 8.8 mg/dL (8.4-10.2) [facility] TOTAL PROTEIN 7.8 g/dL (6.4-8.2) [facility] ALBUMIN 3.4 g/dL (3.5-4.6) L [facility] GLOBULIN 4.4 g/dL (2.7-4.3) H [facility] ALB/GLOB RATIO 0.8 RATIO [facility] ALKALINE PHOSPHATASE 104 U/L (45-117) [facility] BILIRUBIN,TOTAL 0.3 mg/dL (0.0-1.0) [facility] PLEASE NOTE:Total bilirubin results may be falselyelevated in patients taking Eltrombopag. AST (SGOT) 33 U/L (11-39) [facility] ALT (SGPT) 39 U/L (12-78) [facility] GFR >60 ml/min/1.73m2 (>59) [facility] GFR ( AMER) >60 ml/min/1.73m2 (>59) [facility] GFR INTERPRETATION [facility] --NORMAL KIDNEY FUNCTION OR MILD DISEASE - GFR >OR= 60CHRONIC KIDNEY DISEASE - GFR 15 - 59RENAL FAILURE - GFR <15 Est. GFR calculation based on the MDRDstudy equation, which assumes a steadystate for creatinine. Est. GFR should notbe used for medication dosing. ID Date Data Source [id number] 09/07/2020 07:16:04 PM EDT [facility] Name Value Range Interpretation Code Description Data Tere rce(s) Supporting Document(s) APTT 23.8 s (22.0-34.3) [facility] [place] [place] ID Date Data Source [id number] 09/07/2020 07:16:04 PM EDT [facility] Name Value Range Interpretation Code Description Data Tere rce(s) Supporting Document(s) PT 10.6 s (9.2-11.9) [facility] INR 1.02 [facility] SUGGESTED THERAPEUTIC RANGES USING INR F ORSTABILIZED ANTICOAGULATED PATIENTS:STANDARD DOSE THERAPY INR 2.0-3.0 DVT, PE, PREVENT DVT OR EMBOLISMHIGH DOSE THERAPY INR 2.5-3.5 PREVENT EMBOLISM FROM MECHANICAL HEART VALVE ID Date Data Source [id number] 09/07/2020 07:07:38 PM EDT [facility] Name Value Range Interpretation Code Description Data Tere rce(s) Supporting Document(s) WBC 8.7 10*3/uL (4.1-11.0) [facility] [place] RBC 3.82 10*6/uL (4.00-5.40) L [facility] HGB 8.9 g/dL (12.0-16.0) L [facility] HCT 29.1 % (36.0-47.0) L [facility] MCV 76.2 fL (80.0-95.0) L [facility] MCH 23.4 pg (27.0-32.0) L [facility] MCHC 30.7 g/dL (32.0-36.0) L [facility] RDW 19.1 % (10.5-14.5) H [facility] PLT 338 10*3/uL (150-450) [facility] MPV 9.1 fL (7.1-10.7) [facility] ID Date Data Source [id number] 09/08/2020 03:21:27 PM EDT [facility] Name Value Range Interpretation Code Description Data Tere rce(s) Supporting Document(s) SPECIMEN DESCRIPTION [facility] STAPH SCREEN RESULTS (ONEGSA) [facility] COMMENT [facility] GENE TO DETECT STAPH AUREUS. (2) RT-P CR WAS PERFORMED FOR THE mecA AND SCC[employer] GENES TO DETECT METHICILLIN RESISTANCE IN STAPH AUREUS. ID Date Data Source [id number] 09/15/2020 11:43:14 AM EDT [facility], PCName: Eli MesaDOB: 1975Provider: Brenton NapolesDOS: 09/07/2020 Reason For VisitSbear Mesa is an established patient here for follow up. The patient is currently residing at home. Other DOI/DOO: 08/12/18. Surgery Description: Lumbar 5 to sacral 1 laminectom, possible interbody fusion, possbiel cage placement. Instrumentation, iliac crest bone graft, local bone graft. Globus. Neuromonitoring.. Expected DOS: 09-15-2020. The patient's pain is managed by Dr Johnson. (protective signal installer). 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 History of Present Illness Patient is a 45-year-old female presents the office for preoperative HP. Scheduled for lumbar surgery on 09/15/2020. Complaining of constant low back pain rated 5 out of 10. Associated with radiating pain along the posterior aspect of the right lower extremity. Has constant numbness in her feet. History of diabetic neuropathy. There is also numbness in the right anterior leg. Aggravated with activities. Denies any bowel or bladder dysfunction. Results/Data OtherMRI lumbar Voodoo 08/18/18: L5-S1 spinal listhesis; right L5-S1 disc herniationMRI lumbar SOS 08/14/2020: L5-S1 spondylolisthesis, L5-S1 disc herniation; bilateral foraminal narrowing. No significant change compared to MRI of 08/09/2018 AssessmentRight L5-S1 HNPL5-S1 spondylolisthesis PlanPatient is scheduled for L5-S1 laminectomy, foraminotomies, and possible fusion on 09/15/2020. She will follow-up postoperatively. This document was dictated and electronically signed using [employer] software. A reasonable attempt at proof reading has been made to minimize errors. Please call with any questions. Signatures Electronically signed by : Cailin Wolfe; Sep 14 2020 9:18PM EST (Author) Electronically signed by : Eder Polo M.D.; Sep 15 2020 11:43AM EST Name Value Range Interpretation Code Description Data Tere rce(s) Supporting Document(s) ID Date Data Source [id number] 09/02/2020 03:20:00 PM EDT [facility] Name Value Range Interpretation Code Description Data Tere rce(s) Supporting Document(s) Specific gravity of Urine 1.021 1.005-1.030 [facility] SRC:UC A courtesy copy of this report laws s been sent to the patient, SRC:UC pH of Urine by Test strip 6.0 5.0-7.5 [facility] SRC:UC A courtesy copy of this report laws s been sent to the patient, SRC:UC Color of Urine Laboratory test result [facility] SRC:UC A courtesy copy of this report laws s been sent to the patient, SRC:UC Appearance of Urine Laboratory test result [facility] SRC:UC A courtesy copy of this report laws s been sent to the patient, SRC:UC Protein [Presence] in Urine by Test strip Laboratory test result [facility] SRC:UC A courtesy copy of this report laws s been sent to the patient, SRC:UC Leukocyte esterase [Presence] in Urine by Test strip Laboratory aparna t result [facility] SRC:UC A courtesy copy of this report laws s been sent to the patient, SRC:UC Ketones [Presence] in Urine by Test strip Laboratory test result [facility] SRC:UC A courtesy copy of this report laws s been sent to the patient, SRC:UC Glucose [Presence] in Urine Laboratory test result [facility] SRC:UC A courtesy copy of this report laws s been sent to the patient, SRC:UC Hemoglobin [Presence] in Urine by Test strip Laboratory test result [facility] SRC:UC A courtesy copy of this report laws s been sent to the patient, SRC:UC Bilirubin.total [Presence] in Urine by Test strip Laboratory test res ult [facility] SRC:UC A courtesy copy of this report laws s been sent to the patient, SRC:UC Nitrite [Presence] in Urine by Test strip Laboratory test result [facility] SRC:UC A courtesy copy of this report laws s been sent to the patient, SRC:UC Urobilinogen [Mass/volume] in Urine by Test strip 0.2 mg/dL 0.2-1.0 [facility] SRC:UC A courtesy copy of this report laws s been sent to the patient, SRC:UC Urinalysis microscopic panel - Urine sediment Laboratory test result [facility] ([facility] SRC:UC A courtesy copy of this report laws s been sent to the patient, SRC:UC Leukocytes [#/area] in Urine sediment by Microscopy hi gh power field Laboratory test result 0-5 [facility] SRC:UC A courtesy copy of this report laws s been sent to the patient, SRC:UC Microscopic observation [Identifier] in Urine by Acid fast stain.Ziehl-Neelsen Laboratory test result [facility] SRC:UC A courtesy copy of this report laws s been sent to the patient, SRC:UC Epithelial cells [#/area] in Urine sediment by Microsc opy high power field Laboratory test result 0-10 [facility] SRC:UC A courtesy copy of this report laws s been sent to the patient, SRC:UC Erythrocytes [#/area] in Urine sediment by Microscopy high power field Laboratory test result 0-2 [facility] SRC: A courtesy copy of this report laws s been sent to the patient, SRC:UC Cast Type Laboratory test result [facility] SRC: A courtesy copy of this report laws s been sent to the patient, SRC:UC Hyaline casts [Presence] in Urine sediment by Light mi croscopy Laboratory test result Abnormal (applies to non-numeric results) [facility] SRC: A courtesy copy of this report laws s been sent to the patient, SRC:UC Epithelial Cells (renal) Laboratory test result [facility] SRC: A courtesy copy of this report laws s been sent to the patient, SRC:UC Crystal Type Laboratory test result [facility] SRC: A courtesy copy of this report laws s been sent to the patient, SRC:UC Unidentified crystals [Presence] in Urine sediment by Light microscopy Laboratory test result [facility] SRC: A courtesy copy of this report laws s been sent to the patient, SRC:UC Bacteria [#/area] in Urine sediment by Microscopy high power field Laboratory test result [facility] SRC: A courtesy copy of this report laws s been sent to the patient, SRC:UC Mucus [Presence] in Urine sediment by Light microscopy Laborator y test result [facility] ([facility] SRC: A courtesy copy of this report laws s been sent to the patient, SRC:UC Trichomonas vaginalis [Presence] in Urine sediment by Light microscopy Laboratory test result [facility] SRC: A courtesy copy of this report laws s been sent to the patient, SRC:UC Yeast [#/area] in Urine sediment by Microscopy high po wer field Laboratory test result [facility] ([facility] SRC:UC A courtesy copy of this report laws s been sent to the patient, SRC:UC Urine sediment comments by Light microscopy Narrative Laboratory test result [facility] SRC: A courtesy copy of this report laws s been sent to the patient, SRC:UC ID Date Data Source [id number] 09/02/2020 03:20:00 PM EDT [facility] ([facility] Name Value Range Interpretation Code Description Data Tere rce(s) Supporting Document(s) Urine Culture, Routine Laboratory test result Ab normal (applies to non-numeric results) [facility] SRC: A courtesy copy of this report laws s been sent to the patient, SRC:UC Bacteria identified in Urine by Culture Laboratory test result Abnormal (applies to non-numeric results) [facility] SRC: A courtesy copy of this report lwas s been sent to the patient, SRC: ID Date Data Source [id number] 09/02/2020 03:20:00 PM EDT [facility] ([facility] Name Value Range Interpretation Code Description Data Tere rce(s) Supporting Document(s) Glucose [Mass/volume] in Serum or Plasma 147 mg/dL 65-99 [facility] SRC: A courtesy copy of this report laws s been sent to the patient, SRC:UC Creatinine [Mass/volume] in Serum or Plasma 1.00 mg/dL 0.57-1.00 [facility] SRC: A courtesy copy of this report laws s been sent to the patient, SRC:UC Urea nitrogen [Mass/volume] in Serum or Plasma 14 mg/dL 6-24 [facility] SRC: A courtesy copy of this report laws s been sent to the patient, SRC:UC eGFR If NonAfricn Am 67 mL/min/1.73 [facility] SRC: A courtesy copy of this report laws s been sent to the patient, SRC:UC eGFR If Africn Am 78 mL/min/1.73 [facility] SRC: A courtesy copy of this report laws s been sent to the patient, SRC:UC Sodium [Moles/volume] in Serum or Plasma 136 mmol/L 134-144 [facility] SRC: A courtesy copy of this report laws s been sent to the patient, SRC:UC Urea nitrogen/Creatinine [Mass Ratio] in Serum or Plasma 14 9 -23 [facility] SRC: A courtesy copy of this report laws s been sent to the patient, SRC:UC Chloride [Moles/volume] in Serum or Plasma 97 mmol/L 96-106 [facility] SRC: A courtesy copy of this report laws s been sent to the patient, SRC:UC Potassium [Moles/volume] in Serum or Plasma 4.7 mmol/L 3.5-5.2 [facility] ([facility] SRC: A courtesy copy of this report laws s been sent to the patient, SRC:UC Carbon dioxide, total [Moles/volume] in Serum or Plasma 26 mmol/L 20 -29 [facility] SRC: A courtesy copy of this report laws s been sent to the patient, SRC:UC Calcium [Mass/volume] in Serum or Plasma 9.5 mg/dL 8.7-10.2 [facility] SRC: A courtesy copy of this report laws s been sent to the patient, SRC: ID Date Data Source [id number] 09/02/2020 03:20:00 PM EDT [facility] ([facility] Name Value Range Interpretation Code Description Data Tere rce(s) Supporting Document(s) Leukocytes [#/volume] in Blood by Automated count 9.4 x10E3/uL 3.4-10 .8 [facility] SRC: A courtesy copy of this report laws s been sent to the patient, SRC:UC Hemoglobin [Mass/volume] in Blood 9.0 g/dL 11.1-15.9 [facility] SRC: A courtesy copy of this report laws s been sent to the patient, SRC:UC Erythrocytes [#/volume] in Blood by Automated count 3.95 x10E6/uL 3.7 7-5.28 [facility] SRC: A courtesy copy of this report laws s been sent to the patient, SRC:UC Erythrocyte mean corpuscular volume [Entitic volume] by Auto mated count 77 fL 79-97 [facility] SRC: A courtesy copy of this report laws s been sent to the patient, SRC:UC Hematocrit [Volume Fraction] of Blood by Automated count 30.2 % 3 4.0-46.6 [facility] SRC: A courtesy copy of this report laws s been sent to the patient, SRC:UC Erythrocyte mean corpuscular hemoglobin concentration [Mass/volume] by Automated count 29.8 g/dL 31.5-35.7 [facility] SRC: A courtesy copy of this report laws s been sent to the patient, SRC:UC Erythrocyte mean corpuscular hemoglobin [Entitic mass] by Automated count 22.8 pg 26.6-33.0 [facility] SRC: A courtesy copy of this report laws s been sent to the patient, SRC:UC Platelets [#/volume] in Blood by Automated count 411 x10E3/uL 150-450 [facility] SRC: A courtesy copy of this report laws s been sent to the patient, SRC:UC Erythrocyte distribution width [Ratio] by Automated count 17.0 % 11.7-15.4 [facility] SRC: A courtesy copy of this report laws s been sent to the patient, SRC:UC Lymphocytes/100 leukocytes in Blood by Automated count 28 % [facility] SRC: A courtesy copy of this report laws s been sent to the patient, SRC:UC Neutrophils 62 % [facility] SRC: A courtesy copy of this report laws s been sent to the patient, SRC:UC Monocytes/100 leukocytes in Blood by Automated count 6 % [facility] SRC: A courtesy copy of this report laws s been sent to the patient, SRC:UC Eosinophils/100 leukocytes in Blood by Automated count 2 % [facility] SRC: A courtesy copy of this report laws s been sent to the patient, SRC:UC Immature cells [#/volume] in Blood Laboratory test result [facility] SRC: A courtesy copy of this report laws s been sent to the patient, SRC:UC Basophils/100 leukocytes in Blood by Automated count 2 % [facility] SRC: A courtesy copy of this report laws s been sent to the patient, SRC:UC Neutrophils [#/volume] in Blood by Automated count 5.9 x10E3/uL 1.4-7 .0 [facility] SRC: A courtesy copy of this report laws s been sent to the patient, SRC:UC Lymphocytes [#/volume] in Blood 2.7 x10E3/uL 0.7-3.1 [facility] SRC: A courtesy copy of this report laws s been sent to the patient, SRC:UC Monocytes [#/volume] in Blood 0.5 x10E3/uL 0.1-0.9 [facility] SRC: A courtesy copy of this report laws s been sent to the patient, SRC:UC Eosinophils [#/volume] in Blood by Automated count 0.2 x10E3/uL 0.0-0 .4 [facility] SRC: A courtesy copy of this report laws s been sent to the patient, SRC:UC Basophils [#/volume] in Blood by Automated count 0.2 x10E3/uL 0.0-0.2 [facility] SRC: A courtesy copy of this report laws s been sent to the patient, SRC:UC Immature granulocytes/100 leukocytes in Blood by Automated count 0 % [facility] SRC: A courtesy copy of this report laws s been sent to the patient, SRC:UC Immature granulocytes [#/volume] in Blood by Automated count 0.0 x10E3/uL 0.0-0.1 [facility] SRC: A courtesy copy of this report laws s been sent to the patient, SRC:UC Nucleated erythrocytes/100 leukocytes [Ratio] in Blood by Automated count Laboratory test result [facility] SRC: A courtesy copy of this report laws s been sent to the patient, SRC:UC Morphology [Interpretation] in Blood Narrative Laboratory test result [facility] SRC: A courtesy copy of this report laws s been sent to the patient, SRC: ID Date Data Source [id number] 09/02/2020 03:20:00 PM EDT [facility] ([facility] Name Value Range Interpretation Code Description Data Tere rce(s) Supporting Document(s) Hemoglobin A1c/Hemoglobin.total in Blood 8.1 % 4.8-5.6 [facility] SRC: A courtesy copy of this report laws s been sent to the patient, SRC: ID Date Data Source [id number] 09/03/2020 04:05:00 AM EDT [facility] Name Value Range Interpretation Code Description Data Tere rce(s) Supporting Document(s) Glucose 147 mg/dL 65-99 Above high normal [facility] BUN 14 mg/dL 6-24 [facility] Creatinine 1.00 mg/dL 0.57-1.00 [facility] eGFR If NonAfricn Am 67 mL/min/1.73 >59 [facility] eGFR If Africn Am 78 mL/min/1.73 >59 [facility] BUN/Creatinine Ratio 14 9-23 [facility] Sodium 136 mmol/L 134-144 [facility] Potassium 4.7 mmol/L 3.5-5.2 [facility] Chloride 97 mmol/L 96-106 [facility] Carbon Dioxide, Total 26 mmol/L 20-29 [facility] Calcium 9.5 mg/dL 8.7-10.2 [facility] ID Date Data Source [id number] 09/03/2020 05:05:00 AM EDT [facility] Name Value Range Interpretation Code Description Data Tere rce(s) Supporting Document(s) Hemoglobin A1c 8.1 % 4.8-5.6 Above high normal [facility] Prediabetes: 5.7 - 6.4 Diabetes: >6.4 Glycemic control for adults with diabetes: <7.0 ID Date Data Source [id number] 09/03/2020 08:08:00 AM EDT [facility] Name Value Range Interpretation Code Description Data Tere rce(s) Supporting Document(s) Specific Orestes 1.021 1.005-1.030 [facility] pH 6.0 5.0-7.5 [facility] Urine-Color Yellow Yellow [facility] Appearance Clear Clear [facility] WBC Esterase Negative Negative [facility] Protein Trace Negative/Trace [facility] Glucose Negative Negative [facility] Ketones Negative Negative [facility] Occult Blood Negative Negative [facility] Bilirubin Negative Negative [facility] Urobilinogen,Semi-Qn 0.2 mg/dL 0.2-1.0 [facility] Nitrite, Urine Negative Negative [facility] Microscopic Examination [facility] Microscopic follows if indicated. Microscopic Examination See below: [facility] ID Date Data Source [id number] 09/04/2020 06:07:00 AM EDT [facility] Name Value Range Interpretation Code Description Data Tere rce(s) Supporting Document(s) Urine Culture, Routine Final report Abnormal (applies to non-numeric results) [facility] ID Date Data Source [id number] 09/03/2020 04:05:00 AM EDT [facility] Name Value Range Interpretation Code Description Data Tere rce(s) Supporting Document(s) WBC 9.4 x10E3/uL 3.4-10.8 [facility] RBC 3.95 x10E6/uL 3.77-5.28 [facility] Hemoglobin 9.0 g/dL 11.1-15.9 Below low normal [facility] Hematocrit 30.2 % 34.0-46.6 Below low normal [facility] MCV 77 fL 79-97 Below low normal [facility] MCH 22.8 pg 26.6-33.0 Below low normal [facility] MCHC 29.8 g/dL 31.5-35.7 Below low normal [facility] RDW 17.0 % 11.7-15.4 Above high normal [facility] Platelets 411 x10E3/uL 150-450 [facility] Neutrophils 62 % Not Estab. [facility] Lymphs 28 % Not Estab. [facility] Monocytes 6 % Not Estab. [facility] Eos 2 % Not Estab. [facility] Basos 2 % Not Estab. [facility] Neutrophils (Absolute) 5.9 x10E3/uL 1.4-7.0 [facility] Lymphs (Absolute) 2.7 x10E3/uL 0.7-3.1 [facility] Monocytes(Absolute) 0.5 x10E3/uL 0.1-0.9 [facility] Eos (Absolute) 0.2 x10E3/uL 0.0-0.4 [facility] Baso (Absolute) 0.2 x10E3/uL 0.0-0.2 [facility] Immature Granulocytes 0 % Not Estab. [facility] Immature Grans (Abs) 0.0 x10E3/uL 0.0-0.1 [facility] ID Date Data Source [id number] 09/03/2020 08:08:00 AM EDT [facility] Name Value Range Interpretation Code Description Data Tere rce(s) Supporting Document(s) WBC 0-5 /hpf 0 - 5 [facility] RBC 0-2 /hpf 0 - 2 [facility] Epithelial Cells (non renal) 0-10 /hpf 0 - 10 [facility] Casts Present /lpf None seen Abnormal (applies to non-numeric r esults) [facility] Cast Type Hyaline casts N/A [facility] Mucus Threads Present Not Estab. [facility] Bacteria None seen None seen/Few [facility] ID Date Data Source [id number] 09/04/2020 06:07:00 AM EDT [facility] Name Value Range Interpretation Code Description Data Tere rce(s) Supporting Document(s) Result 1 Abnormal (applies to non-numeric results ) [facility] Beta hemolytic Streptococcus, group B10, 000-25,000 colony forming units per mLPenicillin and ampicillin are drugs of choice for treatment ofbeta-hemolytic streptococcal infections. Susceptibility testing ofpenicillins and other beta- lactam agents approved by the FDA fortreatment of beta-hemolytic streptococcal infections need not beperformed routinely because nonsusceptible isolates are extremelyrare in any beta-hemolytic streptococcus and have not been reportedfor Streptococcus pyogenes (group A). (CLSI) ID Date Data Source [id number] 08/14/2020 12:45:04 PM EDT [facility]: 1975Provider: June Polo: 08/14/2020 History of Present IllnessPatient is seen in follow up from last visit. Since last visit she has been evaluated with an MRI. No new significant clinical changes compared to last office visit States her hemoglobin A1c is still 7.2Lower back painAlso right lower extremity sciaticaPhysical therapy August 2018 through December 2018-no benefitSeeing Dr. Johnson for pain management2 injections-no benefitHistory of diabetic neuropathyNumbness from the right knee and distally with global numbnessNumbness in left foot-global numbness The patient complains of pain in the lumbar spine . The pain radiates to the right, posterior, buttock(s), thigh(s) and leg(s) . The patient denies signs of bladder dysfunction, bowel dysfunction, cancer/metastasis, infection and myelopathy . The pain is knife like and achy . The pain severity is rated 5-7 out of 10. Pain is aggravated by periods of activity . There is numbness involving the right foot. The numbness is constant. There is numbness involving the left foot. The numbness is constant. Results/Data OtherMRI lumbar [facility] 08/18/18: L5-S1 spinal listhesis; right L5-S1 disc herniationMRI lumbar SOS 08/14/2020: L5-S1 spondylolisthesis, L5-S1 disc herniation; bilateral foraminal narrowing. No significant change compared to MRI of 08/09/2018Reviewed in detail the results of the diagnostic testing. Reviewed the pertinent applicable clinical implications relating to the patient. Also provided a copy of the results for their personal records. Assessment 1. Herniated nucleus pulposus, L5-S1 (722.10) (M51.27) 2. Spondylolisthesis at L5- S1 level (756.12) (M43.17) 3. Low back pain (724.2) (M54.5) condition: Chronicetiology: age-related spine/joint degenerationlevels: L5-S1 PlanThe various alternatives and treatment options were discussed with pros and cons, risks, and potential benefits of each option reviewed. She wishes to proceed with surgery. Requesting 1-2 visits of pre-hab PT for strengthening and better post op outcomes. This document was dictated and electronically signed using [employer] software. A reasonable attempt at proof reading has been made to minimize errors. Please call with any questions. Signatures Electronically signed by : Eder Polo M.D.; Aug 14 2020 10:39AM EST (Author) Electronically signed by : Eder Polo M.D.; Aug 14 2020 12:45PM EST (Author) Name Value Range Interpretation Code Description Data Tere rce(s) Supporting Document(s) ID Date Data Source [id number] 08/14/2020 11:59:00 AM EDT [facility] PATIENT MR#: [id number] NAME: ELI MUJICA OF : 1975REFERRING PHYSICIAN: Eder PoloEXMUKUL DATE: 08/14/2020EXAM: MRI LUMBOSACRAL SPINE WITHOUT CONTRASTINDICATION: Low back painCOMPARISON: Lumbar spine radiographs 07/16/2020, MRI lumbar spine 08/09/2018TECHNIQUE: Multisequence multiplanar axial and sagittal MR imaging of thelumbosacral spine was performed on a 1.5T GE unit. Intravenous contrast was notadministered.FINDINGS: For the purposes of nomenclature, the L5-S1 disc level corresponds toaxial T2 series image 35. 9 mm grade 2 anterolisthesis L5 on S1 is unchangedwith chronic bilateral L5 pars defects. Lordosis is otherwise preserved. Nonew malalignment. The vertebral body heights are normal. No compression orlumbar fracture.No aggressive marrow lesion. The conus is normal and terminates at the [id number] endplate level. Cauda equina is also normal.T12-L1: No disc protrusion, bulge, central canal, lateral recess or foraminalnarrowing.L1-2: No disc protrusion, bulge, central canal, lateral recess or foraminalnarrowing. L2-3: No disc protrusion, bulge, central canal, lateral recess or foraminalnarrowing. L3-4: No disc protrusion, bulge, central canal, lateral recess or foraminalnarrowing. L4-5: No disc protrusion, bulge, central canal, lateral recess or foraminalnarrowing. L5-S1: Stable 9 mm anterolisthesis L5 on S1 with chronic bilateral L5 parsdefect. Chronic disc desiccation and severe disc height loss are unchanged. Disc uncovering and diffuse disc bulge is unchanged, with a stable adjacent 9 x6 x 5 mm extruded disc fragment at the right lateral recess just cephalad to thedisc that abuts the exiting right L5 nerve root. Stable severe right foraminalnarrowing with right L5 nerve flattening in stable severe right lateral recessstenosis. Stable mild central canal narrowing and severe left foraminalnarrowing with left L5 foraminal segment nerve flattening. No change. Mildbilateral facet arthropathy.No paraspinal soft tissue abnormality.IMPRESSION: 1. Overall, no significant interval change compared with 08/09/2018.2. Stable 9 mm grade 2 anterolisthesis L5 on S1 with chronic bilateral L5 parsdefect and severe disc height loss. Stable 9 x 6 x 5 mm right lateral recessextruded disc fragment which abuts the right L5 nerve root with stable severeright lateral recess stenosis, mild central canal narrowing and severe right andleft bilateral foraminal narrowing with bilateral L5 foraminal segment nerveflattening.Read by: Neil NguyenTranscribed by: Neil NguyenTranscribed Date: 08/14/2020 11:59:13 AMElectronically signed by: Neil Gallagher signed: 08/14/2020 12:00:18 PM Name Value Range Interpretation Code Description Data Tere rce(s) Supporting Document(s) ID Date Data Source [id number] 07/16/2020 11:36:39 AM EDT [facility] PCName: Eil Candido: 1975Provider: June Polo: 07/16/2020 History of Present IllnessNo new significant clinical changes compared to last office visit States her hemoglobin A1c is 7.2lower back painAlso right lower extremity sciaticaPhysical therapy August 2018 through December 2018-no benefitSeeing Dr. Johnson for pain management2 injections-no benefitHistory of diabetic neuropathyNumbness from the right knee and distally with global numbnessNumbness in left foot-global numbness The patient complains of pain in the lumbar spine . The pain radiates to the right, posterior, buttock(s), thigh(s) and leg(s) . The patient denies signs of bladder dysfunction, bowel dysfunction, cancer/metastasis, infection and myelopathy . The pain is knife like and achy . The pain severity is rated 5-7 out of 10. Pain is aggravated by periods of activity . There is numbness involving the right foot. The numbness is constant. There is numbness involving the left foot. The numbness is constant. Results/DataXRays were ordered, obtained and interpreted today in the office. Indication: pain/dysfunction. Site: Lumbar Spine Views: 1 View, Lateral, 2 Views, AP/Lateral Standing Findings:. degenerative disc disease of a moderate degree. Grade 1 spondylolisthesis at L5- S1. [facility] L5-S1 spinal listhesis; right L5-S1 disc herniation Assessment 1. Herniated nucleus pulposus, L5-S1 (722.10) (M51.27) 2. Spondylolisthesis at L5-S1 level (756.12) (M43.17) 3. Low back pain (724.2) (M54.5) condition: Chronicetiology: age- related spine/joint degenerationlevels: L5-S1 Plan X-Ray I Lumbosacral - 2 views (XRays were ordered, obtained and interpreted today inthe office. Indication: pain/dysfunction.); Status:Complete; Done: [id number] Perform:SOS22; Due:[id number]; Last Updated By:Gaviota Cesar; 07/16/2020 11:06:11 AM;Ordered; For:Low back pain; Ordered By:Eder Polo; MRI (SOS) Referral Diagnostic Diagnostic Status: Need Information - FinancialAuthorization Requested for: [id number] Ordered;For: Low back pain; Ordered By: Eder Polo Performed: Order Comments: Wide Bore. Same Day Follow Up. Due: [id number]; Last Updated By: Inga Rutherford; 07/16/2020 11:35:00 AMPatient will follow up with: : Dr. Polo---same day follow up.MRI Ordered Contrast : 01: without gadoLaterality: : _Not Applicable Plan, Assessment and Recommendation(s) Schedule appointment: After further diagnostic testing is completed and available for review. The various alternatives and treatment options were discussed with pros and cons, risks, and potential benefits of each option reviewed. She wishes to proceed with surgery. Requesting 1-2 visits of pre-hab PT for strengthening and better post op outcomes. She requires further work up to include MRI Lumbar Spine. Need updated MRI lumbar spine for preoperative planning This document was dictated and electronically signed using [employer] software. A reasonable attempt at proof reading has been made to minimize errors. Please call with any questions. Signatures Electronically signed by : Eder Polo M.D.; Jul 16 2020 11:36AM EST (Author) Name Value Range Interpretation Code Description Data Tere rce(s) Supporting Document(s) ID Date Data Source [id number] 06/29/2020 04:17:00 PM EDT [facility] ([facility]) Name Value Range Interpretation Code Description Data Tere rce(s) Supporting Document(s) Hemoglobin A1c/Hemoglobin.total in Blood 7.2 [facility] ([facility]) Glucose [Mass/volume] in Serum or Plasma 230 [facility] [facility]) ID Date Data Source [id number] 04/29/2020 05:04:00 AM EDT [facility] ([facility] Name Value Range Interpretation Code Description Data Tere rce(s) Supporting Document(s) Glucose [Mass/volume] in Capillary blood by Glucometer 172 mg/dL 70- 105 [facility] ([facility] ID Date Data Source [id number] 04/29/2020 03:56:00 AM EDT [facility] ([facility] Name Value Range Interpretation Code Description Data Tere rce(s) Supporting Document(s) Glucose [Mass/volume] in Capillary blood by Glucometer 114 mg/dL 70- 105 [facility] ([facility] ID Date Data Source [id number] 04/29/2020 02:31:00 AM EDT [facility] ([facility] Name Value Range Interpretation Code Description Data Tere rce(s) Supporting Document(s) Glucose [Mass/volume] in Capillary blood by Glucometer 91 mg/dL 70- 105 [facility] ([facility] ID Date Data Source [id number] 04/29/2020 01:12:00 AM EDT [facility] ([facility] Name Value Range Interpretation Code Description Data Tere rce(s) Supporting Document(s) Glucose [Mass/volume] in Capillary blood by Glucometer 31 mg/dL 70-105 Below lower panic limits [facility] ([facility] Doctor Notified Nurse Notified ID Date Data Source [id number] 04/29/2020 01:11:00 AM EDT [facility] ([facility] Name Value Range Interpretation Code Description Data Tere rce(s) Supporting Document(s) Glucose [Mass/volume] in Capillary blood by Glucometer 26 mg/dL 70-105 Below lower panic limits [facility] ([facility] Doctor Notified Nurse Notified ID Date Data Source [id number] 04/29/2020 12:06:00 AM EDT [facility] ([facility] Name Value Range Interpretation Code Description Data Tere rce(s) Supporting Document(s) Thyrotropin [Units/volume] in Serum or Plasma 10.700 uIU/ML 0.358-3.7 40 [facility] ([facility] Thyroxine (T4) free [Mass/volume] in Serum or Plasma 0.75 ng/dL 0.76- 1.46 [facility] ([facility] ID Date Data Source [id number] 04/29/2020 12:06:00 AM EDT [facility] ([facility] Name Value Range Interpretation Code Description Data Tere rce(s) Supporting Document(s) Blood Urea Nitrogen 10 mg/dL 7-18 [facility] ([facility] Glucose, Fasting 62 mg/dL 70-100 [facility] ([facility] Creatinine For GFR 0.95 mg/dL 0.55-1.30 [facility] ([facility] Glomerular Filtration Rate Laboratory test result [facility] ([facility] <content>Units are mL/min/1.73 m2</content>
<content></content>
<content>Chronic Kidney Disease Staging per NKF:</content>
<content></content>
<content>Stage I & II GFR >=60 Normal to Mildly Decreased</content>
<content>Stage III GFR 30- 59 Moderately Decreased</content>
<content>Stage IV GFR 15-29 Severely Decreased</content>
<content>Stage V GFR <15 Very Little GFR Left</content>
<content>ESRD GFR <15 on HYDROLOGICAL TECHNICAL OFFICER</content>
<content></content> Sodium Level 141 meq/L 136-145 [facility] ([facility] Potassium Serum 3.8 meq/L 3.5-5.1 [facility] ([facility] Chloride Level 110 meq/L 98-107 [facility] ([facility] Carbon Dioxide Level 24 meq/L 21-32 [facility] ([facility] Anion Gap 7 meq/L 8-16 [facility] ([facility] Calcium Level 8.6 mg/dL 8.5-10.1 [facility] ([facility] ID Date Data Source [id number] 04/29/2020 12:06:00 AM EDT [facility] ([facility] Name Value Range Interpretation Code Description Data Tere rce(s) Supporting Document(s) Ast/Sgot 20 U/L 7-37 [facility] ([facility] Alkaline Phosphatase 90 U/L 45-117 [facility] ([facility] Alt/SGPT 31 U/L 12-78 [facility] ([facility] Bilirubin,Total 0.1 mg/dL 0.2-1.0 [facility] ([facility] Bilirubin,Direct Laboratory test result 0.0-0.2 [facility] ([facility] Total Protein 7.9 GM/DL 6.4-8.2 [facility] ([facility] Albumin/Globulin Ratio 0.7 1.2-2.2 [facility] ([facility] Albumin 3.2 GM/DL 3.2-5.2 [facility] ([facility] ID Date Data Source [id number] 04/29/2020 12:06:00 AM EDT [facility] ([facility] Name Value Range Interpretation Code Description Data Tere rce(s) Supporting Document(s) White Blood Count 6.9 10 4.0-10.0 [facility] ([facility] Hemoglobin 9.3 g/dL 12.0-15.5 [facility] ([facility] Red Blood Count 3.98 10 4.00-5.40 [facility] ([facility] Hematocrit 32.1 % 36.0-47.0 [facility] Mean Corpuscular Volume 80.7 fl 80.0-96.0 M [facility] ([facility] Mean Corpuscular HGB Conc 29.0 g/dL 32.0-36.5 [facility] ([facility] Mean Corpuscular Hemoglobin 23.4 pg 27.0-33.0 [facility] ([facility] Platelet Count, Automated 394 10 150-450 [facility] ([facility] Neutrophils % 67.4 % 36.0-66.0 [facility] ([facility] Red Cell Distribution Width 18.6 % 11.5-14.5 [facility] ([facility] Eos % 2.0 % 0.0-3.0 [facility] ([facility] [place] % 6.9 % 0.0-5.0 [facility] ([facility] Lymph % 21.7 % 24.0-44.0 [facility] ([facility] Nucleated Red Blood Cell % 0.0 % 0-0 [facility] ([facility] Immature Granulocyte % 0.1 % 0-3.0 [facility] ([facility] Baso % 1.9 % 0.0-1.0 [facility] ([facility] [place] # 0.5 10 0.0-0.8 [facility] ([facility] Neutrophils # 4.6 10 1.5-8.5 [facility] ([facility] Lymph # 1.5 10 1.5-5.0 [facility] ([facility] Eos # 0.1 10 0.0-0.5 [facility] ([facility] Baso # 0.1 10 0.0-0.2 [facility] ([facility] ID Date Data Source [id number] 04/28/2020 11:39:00 PM EDT [facility] ([facility] Name Value Range Interpretation Code Description Data Tere rce(s) Supporting Document(s) Glucose [Mass/volume] in Capillary blood by Glucometer 169 mg/dL 70- 105 [facility] ([facility] ID Date Data Source [id number] 03/16/2020 09:31:00 AM EDT [facility] ([facility]) Name Value Range Interpretation Code Description Data Tere rce(s) Supporting Document(s) Glucose [Mass/volume] in Serum or Plasma 325 [facility] ([facility]) Hemoglobin A1c/Hemoglobin.total in Blood 9.7 [facility] ([facility]) ID Date Data Source [id number] 03/16/2020 09:15:00 AM EDT [facility] ([facility]) Name Value Range Interpretation Code Description Data Tere rce(s) Supporting Document(s) Creatinine, Urine 68.2 mg/dL [facility] ([facility]) [place]/Creat Ratio 236.0 MCG/MG 0.0-30.0 [facility] ([facility]) THE [employer] STATES THAT MICROALBUMINURIA IS PRESENT IF THE MICROALBUMIN/CREATININE RATIO EXCEEDS 30 MCG/MG. THE THRESHOLD FOR CLINICAL ALBUMINURIA IS REACHED AT 300 MCG/MG. THE CLASSIFICATION OF A PATIENT SHOULD BE BASED UPON AT LEAST 2 OF 3 ABNORMAL RESULTS ON SPECIMENS COLLECTED WITHIN A 3 TO 6 MONTH TIME FRAME. Malb Urine Siemens 161.0 mg/L [facility] ([facility]) ID Date Data Source [id number] 12/24/2019 07:41:00 PM EST [facility] ([facility]) Name Value Range Interpretation Code Description Data Tere rce(s) Supporting Document(s) Glucose [Mass/volume] in Capillary blood by Glucometer 87 70- 105 [facility] ([facility]) ID Date Data Source [id number] 12/24/2019 07:09:00 PM EST [facility] ([facility]) Name Value Range Interpretation Code Description Data Tere rce(s) Supporting Document(s) Glucose [Mass/volume] in Capillary blood by Glucometer 50 mg/dL 70- 105 [facility] ([facility]) Procedure Social History Code Duration Value Status Description Data Source(s ) Smoking 11/24/2020 04:07:00 PM EST Daily Smoker completed [facility] Alcohol intake 09/16/2020 12:00:00 AM EDT No completed [facility] Cigarettes smoked current (pack per day) - Reported 09/16/20 12:00:00 AM EDT UNK completed [facility] Smoking 09/16/2020 12:00:00 AM EDT Current every day smoker co mpleted Current every day smoker [facility] Alcohol intake 09/07/2020 12:00:00 AM EDT No completed [facility] Cigarettes smoked current (pack per day) - Reported 09/07/20 12:00:00 AM EDT UNK completed [facility] Smoking 09/07/2020 12:00:00 AM EDT Current every day smoker co mpleted Current every day smoker [facility] Vital Signs ID Date Data Source [id number] Name Value Range Interpretation Code Description Data Source(s) Body temperature 37.6 sandy Normal (applies to non-numeric results) 37.[address] [facility] Respiratory rate 20 min Normal (applies to non-numeric results) [address] [facility] Heart rate 81 min Normal (applies to non-numeric resul ts) [address] [facility] Diastolic blood pressure 73 mm[Hg] Normal (applies to non-numeric results) 73 mm[Hg] [facility] Systolic blood pressure 106 mm[Hg] Normal (applies t o non-numeric results) 106 mm[Hg] [facility] Deprecated Oxygen saturation in Capillary blood by Oximetry 98 % Normal (applies to non-numeric results) 98 % [facility] Body weight Measured 62.4 kg Normal (applies to non-num anabel results) 62.[address] [facility] Body height 162.1536 cm Normal (applies to non-numeric res ults) 162.[address] [facility] Body mass index (BMI) [Ratio] 23.61 kg/m2 No rmal (applies to non-numeric results) 23.61 kg/m2 [facility] Body mass index (BMI) [Ratio] 24.4 kg/m2 24.4 k g/m2 [facility] ([facility] Shiro body weight 120 [lb_av] 120 [lb_av] [facility] T ([facility] Oxygen saturation in Arterial blood by Pulse oximetry 98 % 98 % [facility] ([facility] Body weight 142.38 [lb_av] 142.38 [lb_av] [facility] T ([facility] Body height 64.0 [in_i] 64.0 [in_i] [facility] ([facility] 5'4" Respiratory rate 20 /min 20 /min [facility] ( [facility] Body temperature 97.0 [degF] 97.0 [degF] [facility] ([facility] Heart rate 93 /min 93 /min [facility] ([facility] Diastolic blood pressure 88 mm[Hg] 88 mm[Hg] [facility] ([facility] Systolic blood pressure 162 mm[Hg] 162 mm[Hg] M [facility] ([facility] Diastolic blood pressure 80 mm[Hg] 80 mm[Hg] [facility] ([facility] Systolic blood pressure 150 mm[Hg] 150 mm[Hg] M [facility] ([facility] Body mass index (BMI) [Ratio] 24.8 kg/m2 24.8 k g/m2 [facility] ([facility] Shiro body weight 120 [lb_av] 120 [lb_av] [facility] T ([facility] Body weight 144.50 [lb_av] 144.50 [lb_av] [facility] T ([facility] Body height 64.0 [in_i] 64.0 [in_i] [facility] ([facility] 5'4" Respiratory rate 16 /min 16 /min [facility] ( [facility] Body temperature 97.3 [degF] 97.3 [degF] [facility] ([facility] Heart rate 90 /min 90 /min [facility] ([facility] Diastolic blood pressure 74 mm[Hg] 74 mm[Hg] [facility] ([facility] sobbing and crying Systolic blood pressure 185 mm[Hg] 185 mm[Hg] M [facility] ([facility] sobbing and crying Body mass index (BMI) [Ratio] 26.5 kg/m2 26.5 k g/m2 [facility] ([facility] Shiro body weight 120 [lb_av] 120 [lb_av] [facility] T ([facility] Oxygen saturation in Arterial blood by Pulse oximetry 98 % 98 % [facility] ([facility] Body weight 154.38 [lb_av] 154.38 [lb_av] [facility] ([facility] Body height 64.0 [in_i] 64.0 [in_i] [facility] ([facility] 5'4" Respiratory rate 22 /min 22 /min [facility] ( [facility] Body temperature 97.5 [degF] 97.5 [degF] [facility] ([facility] Heart rate 101 /min 101 /min [facility] ([facility] Diastolic blood pressure 71 mm[Hg] 71 mm[Hg] [facility] ([facility] Systolic blood pressure 161 mm[Hg] 161 mm[Hg] M [facility] ([facility] Oxygen saturation in Arterial blood by Pulse oximetry 98 % 98 % [facility] Body temperature 36.89 Sandy 36.89 Sandy [facility] Heart rate 93 /min 93 /min [facility] Diastolic blood pressure 73 mm[Hg] 73 mm[Hg] [facility] Systolic blood pressure 136 mm[Hg] 136 mm[Hg] [facility] Respiratory rate 14 /min 14 /min [facility] Body mass index (BMI) [Ratio] 26.43 kg/m2 26.43 kg/m2 [facility] Body weight 69.854 kg 69.854 kg [facility] Body height 162.6 cm 162.6 cm [facility] Oxygen saturation in Arterial blood by Pulse oximetry 98 % 98 % [facility] Body mass index (BMI) [Ratio] 26.43 kg/m2 26.43 kg/m2 [facility] Body weight 69.854 kg 69.854 kg [facility] Body height 162.6 cm 162.6 cm [facility] Heart rate 97 /min 97 /min [facility] Diastolic blood pressure 70 mm[Hg] 70 mm[Hg] [facility] Systolic blood pressure 140 mm[Hg] 140 mm[Hg] [facility] Body mass index (BMI) [Ratio] 26.0 kg/m2 26.0 k g/m2 [facility] ([facility] Shiro body weight 120 [lb_av] 120 [lb_av] [facility] T ([facility] Oxygen saturation in Arterial blood by Pulse oximetry 98 % 98 % [facility] ([facility] Body weight 151.38 [lb_av] 151.38 [lb_av] [facility] ([facility] Body height 64.0 [in_i] 64.0 [in_i] [facility] ([facility] 5'4" Respiratory rate 17 /min 17 /min [facility] ( [facility] Body temperature 96.9 [degF] 96.9 [degF] [facility] ([facility] Heart rate 85 /min 85 /min [facility] ([facility] Diastolic blood pressure 63 mm[Hg] 63 mm[Hg] [facility] ([facility] Systolic blood pressure 128 mm[Hg] 128 mm[Hg] [facility] ([facility] Diastolic blood pressure 75 mm[Hg] 75 mm[Hg] [facility] Systolic blood pressure 143 mm[Hg] 143 mm[facility]Hg] [facility] Oxygen saturation in Arterial blood by Pulse oximetry 99 % 99 % [facility] ([facility] Body mass index (BMI) [Ratio] 26.6 kg/m2 26.6 k g/m2 [facility] ([facility] ) Body weight 150.00 [lb_av] 150.00 [lb_av] [facility] T ([facility] ) Body height 63 [in_i] 63 [in_i] [facility] ([facility] 5'3" Heart rate 82 /min 82 /min [facility] ([facility] Diastolic blood pressure 70 mm[Hg] 70 mm[Hg] [facility] ([facility] Systolic blood pressure 142 mm[Hg] 142 mm[Hg] M [facility] ([facility] ) Oxygen saturation in Arterial blood by Pulse oximetry 98 % 98 % [facility] ([facility] Body mass index (BMI) [Ratio] 26.9 kg/m2 26.9 k g/m2 [facility] ([facility] Body weight 152.12 [lb_av] 152.12 [lb_av] [facility] ([facility] Body height 63 [in_i] 63 [in_i] [facility] ([facility] 5'3" Heart rate 100 /min 100 /min [facility] ([facility] ) Diastolic blood pressure 88 mm[Hg] 88 mm[Hg] [facility] ([facility] Systolic blood pressure 146 mm[Hg] 146 mm[Hg] M [facility] ([facility] Body mass index (BMI) [Ratio] 25.4 kg/m2 25.4 k g/m2 [facility] ([facility] Body weight 149.25 [lb_av] 149.25 [lb_av] [facility] T ([facility] ) Body height 64.25 [in_i] 64.25 [in_i] [facility] ([facility] 5'4.25" Body mass index (BMI) [Ratio] 26.0 kg/m2 26.0 k g/m2 [facility] ([facility] ) Body weight 154.56 [lb_av] 154.56 [lb_av] [facility] T ([facility] ) Oxygen saturation in Arterial blood by Pulse oximetry 98 % 98 % [facility] ([facility] Body mass index (BMI) [Ratio] 26.5 kg/m2 26.5 k g/m2 [facility] ([facility] Body weight 149.50 [lb_av] 149.50 [lb_av] [facility] T ([facility] Body height 63 [in_i] 63 [in_i] [facility] ([facility] ) 5'3" Heart rate 96 /min 96 /min [facility] ([facility] ) Diastolic blood pressure 90 mm[Hg] 90 mm[Hg] [facility] ([facility] ) Systolic blood pressure 146 mm[Hg] 146 mm[Hg] M [facility] ([facility] ) Systolic blood pressure 146 mm[Hg] 146 mm[Hg] A THENA ([facility]) Body height 64 [in_i] 64 [in_i] ALIYAH ([facility]) Diastolic blood pressure 78 mm[Hg] 78 mm[Hg] AL[facility]YAH ([facility]) Body mass index (BMI) [Ratio] 23.9 kg/m2 23.9 k g/m2 [facility] ([facility] Shiro body weight 120 [lb_av] 120 [lb_av] [facility] ([facility] Oxygen saturation in Arterial blood by Pulse oximetry 98 % 98 % [facility] ([facility] Body weight 139.50 [lb_av] 139.50 [lb_av] [facility] ([facility] Body height 64.0 [in_i] 64.0 [in_i] [facility] ([facility] 5'4" Respiratory rate 16 /min 16 /min [facility] ( [facility] Body temperature 97.8 [degF] 97.8 [degF] [facility] ([facility] Heart rate 87 /min 87 /min [facility] ([facility] Diastolic blood pressure 76 mm[Hg] 76 mm[Hg] [facility] ([facility] Systolic blood pressure 133 mm[Hg] 133 mm[Hg] M [facility] ([facility] Body height 63 [in_i] 63 [in_i] [facility] ([facility]) 5'3" Heart rate 92 /min 92 /min [facility] ([facility]) Diastolic blood pressure 88 mm[Hg] 88 mm[Hg] [facility] ([facility]) Systolic blood pressure 146 mm[Hg] 146 mm[Hg] M [facility] ([facility]) Oxygen saturation in Arterial blood by Pulse oximetry 98 % 98 % [facility] ([facility]) Body mass index (BMI) [Ratio] 24.6 kg/m2 24.6 k g/m2 [facility] ([facility]) Body weight 139.00 [lb_av] 139.00 [lb_av] [facility] T ([facility]) Systolic blood pressure 147 mm[Hg] 147 mm[Hg] A THENA ([facility]) Body height 64 [in_i] 64 [in_i] ALIYAH ([facility]) Diastolic blood pressure 73 mm[Hg] 73 mm[Hg] ALIYAH ([facility]) Systolic blood pressure 147 mm[Hg] 147 mm[Hg] A THENA ([facility]) Body height 64 [in_i] 64 [in_i] ALIYAH ([facility]) Diastolic blood pressure 73 mm[Hg] 73 mm[Hg] AL[facility]YAH ([facility]) Patient Treatment Plan of Care Planned Activity Planned Date Details Description Data Source (s) Acetaminophen 325 MG / Hydrocodone Bitartrate 5 MG Ora l Tablet 09/17/2020 12:00:[address] [facility] Acetaminophen 500 MG Oral Tablet [facility] meloxicam 15 MG Oral Tablet [facility] meloxicam 15 MG Oral Tablet ALIYAH ([facility])
[2020-12-04] MEDS ORDERED: HYDROmorphone 2 MG TAB PO ONE (18:15)
[2020-12-04] MEDS ORDERED: CEFT1INJ5 IV (18:16)
[2020-12-04] MEDS ORDERED: META28.32 PO (18:16)
[2020-12-04] MEDS ORDERED: GABA-282 PO (18:16)
[2020-12-04] MEDS ORDERED: MAPA500C PO (18:16)
[2020-12-04] MEDS ORDERED: ZOFR4TAB16 PO (18:16)
[2020-12-04] MEDS ORDERED: BASA100I SC (18:16)
[2020-12-04] MEDS ORDERED: MORP1CAP48 PO (18:16)
[2020-12-04] MEDS ORDERED: MORP1SOL4 PO (18:16)
[2020-12-04] MEDS ORDERED: CALC500T60 PO (18:16)
[2020-12-04] MEDS ORDERED: BISA10SU4 PR (18:16)
[2020-12-04 19:14] LABS: HEMATOCRIT 24.8 % (36.0-47.0); HEMOGLOBIN 7.2 g/dl (12.0-15.5); MEAN CORPUSCULAR HEMOGLOBIN 27.5 pg (27.0-33.0); MEAN CORPUSCULAR VOLUME 94.7 fl (80.0-96.0); PLATELET COUNT, AUTOMATED 350 10^3/uL (150-450); RED BLOOD COUNT 2.62 10^6/uL (4.00-5.40); WHITE BLOOD COUNT 11.3 10^3/uL (4.0-10.0)
[2020-12-04 19:28] LABS: INR 1.08; PROTHROMBIN TIME 14.2 SECONDS (12.5-14.3)
[2020-12-04 19:29] LABS: BLOOD UREA NITROGEN 5 MG/DL (7-18); CALCIUM LEVEL 8.3 MG/DL (8.5-10.1); CARBON DIOXIDE LEVEL 31 MEQ/L (21-32); CHLORIDE LEVEL 97 MEQ/L (98-107); CREATININE FOR GFR 0.51 MG/DL (0.55-1.30); GLOMERULAR FILTRATION RATE > 60.0 (>58); GLUCOSE, FASTING 124 MG/DL (70-100); POTASSIUM SERUM 4.2 MEQ/L (3.5-5.1); SODIUM LEVEL 133 MEQ/L (136-145)
--- OUTSIDE RECORDS SUMMARY | 2020-12-04 19:37 | CCD ---
Author Author [facility] Organization [facility] Address Unknown Phone Unavailable Care Team Providers Care Programming Manager Name Role Phone NoyoYudelkaby PA Unavailable Unavailable [...] JANNETH MD Unavailable Unavailable Marylu ALONZO ZEINA BREEDING TECHNICIAN Unavailable Unavailable Marylu ALONZO ZEINA BREEDING TECHNICIAN Unavailable Unavailable CLINTON B ZEINA BREEDING TECHNICIAN Unavailable Unavailable COOK, B ZEINA BREEDING TECHNICIAN Unavailable Unavailable COOK, B ZEINA BREEDING TECHNICIAN Unavailable Unavailable COOK, B ZEINA BREEDING TECHNICIAN Unavailable Unavailable COOK, B ZEINA BREEDING TECHNICIAN Unavailable Unavailable COOK, B ZEINA BREEDING TECHNICIAN Unavailable Unavailable COOK, B ZEINA BREEDING TECHNICIAN Unavailable Unavailable COOK, B ZEINA BREEDING TECHNICIAN Unavailable Unavailable COOK, B ZEINA BREEDING TECHNICIAN Unavailable Unavailable COOK, B ZEINA BREEDING TECHNICIAN Unavailable Unavailable COOK, B ZEINA BREEDING TECHNICIAN Unavailable Unavailable COOK, B ZEINA BREEDING TECHNICIAN Unavailable Unavailable COOK, B ZEINA BREEDING TECHNICIAN Unavailable Unavailable COOK, B ZEINA BREEDING TECHNICIAN Unavailable Unavailable COOK, B ZEINA BREEDING TECHNICIAN Unavailable Unavailable COOK, B ZEINA BREEDING TECHNICIAN Unavailable Unavailable COOK, B ZEINA BREEDING TECHNICIAN Unavailable Unavailable COOK, B ZEINA BREEDING TECHNICIAN Unavailable Unavailable COOK, B ZEINA BREEDING TECHNICIAN Unavailable Unavailable COOK, B ZEINA BREEDING TECHNICIAN Unavailable Unavailable COOK, B ZEINA BREEDING TECHNICIAN Unavailable Unavailable COOK, B ZEINA BREEDING TECHNICIAN Unavailable Unavailable COOK, B ZEINA BREEDING TECHNICIAN Unavailable Unavailable COOK, B ZEINA BREEDING TECHNICIAN Unavailable Unavailable COOK, B ZEINA BREEDING TECHNICIAN Unavailable Unavailable COOK, B ZEINA BREEDING TECHNICIAN Unavailable Unavailable COOK, B ZEINA BREEDING TECHNICIAN Unavailable Unavailable COOK, B ZEINA BREEDING TECHNICIAN Unavailable Unavailable COOK, B ZEINA BREEDING TECHNICIAN Unavailable Unavailable COOK, B ZEINA BREEDING TECHNICIAN Unavailable Unavailable COOK, B ZEINA BREEDING TECHNICIAN Unavailable Unavailable COOK, B ZEINA BREEDING TECHNICIAN Unavailable Unavailable COOK, B ZEINA BREEDING TECHNICIAN Unavailable Unavailable COOK, B ZEINA BREEDING TECHNICIAN Unavailable Unavailable COOK, B ZEINA BREEDING TECHNICIAN Unavailable Unavailable COOK, B ZEINA BREEDING TECHNICIAN Unavailable Unavailable COOK, B ZEINA BREEDING TECHNICIAN Unavailable Unavailable COOK, B ZEINA BREEDING TECHNICIAN Unavailable Unavailable COOK, B ZEINA BREEDING TECHNICIAN Unavailable Unavailable COOK, B ZEINA BREEDING TECHNICIAN Unavailable Unavailable COOK, B ZEINA BREEDING TECHNICIAN Unavailable Unavailable COOK, B ZEINA BREEDING TECHNICIAN Unavailable Unavailable COOK, B ZEINA BREEDING TECHNICIAN Unavailable Unavailable COOK, B ZEINA BREEDING TECHNICIAN Unavailable Unavailable COOK, B ZEINA BREEDING TECHNICIAN Unavailable Unavailable COOK, B ZEINA BREEDING TECHNICIAN Unavailable Unavailable COOK, B ZEINA BREEDING TECHNICIAN Unavailable Unavailable COOK, B ZEINA BREEDING TECHNICIAN Unavailable Unavailable COOK, B ZEINA BREEDING TECHNICIAN Unavailable Unavailable COOK, B ZEINA BREEDING TECHNICIAN Unavailable Unavailable COOK, B ZEINA BREEDING TECHNICIAN Unavailable Unavailable COOK, B ZEINA BREEDING TECHNICIAN Unavailable Unavailable COOK, B ZEINA BREEDING TECHNICIAN Unavailable Unavailable COOK, B ZEINA BREEDING TECHNICIAN Unavailable Unavailable COOK, B ZEINA BREEDING TECHNICIAN Unavailable Unavailable COOK, B ZEINA BREEDING TECHNICIAN Unavailable Unavailable COOK, B ZEINA BREEDING TECHNICIAN Unavailable Unavailable COOK, B ZEINA BREEDING TECHNICIAN Unavailable Unavailable Marylu ALONZO ZEINA BREEDING TECHNICIAN Unavailable Unavailable Marylu ALONZO EZINA BREEDING TECHNICIAN Unavailable Unavailable CLINTON, Marylu ZEINA BREEDING TECHNICIAN Unavailable Unavailable Marylu ALONZO ZEINA BREEDING TECHNICIAN Unavailable Unavailable MD ZAHRAA Unavailable Unavailable RING, [...] Unavailable Unavailable Lizeth POLO MD Unavailable Unavailable Lizteh POLO MD Unavailable Unavailable Lizeth POLO MD [...] Unavailable Unavailable Lizeth POLO MD Unavailable Unavailable Liezth POLO MD Unavailable Unavailable Lizeth POLO MD [...] Unavailable Unavailable Lizeth POLO MD Unavailable Unavailable iLzeth POLO MD Unavailable Unavailable Lizeth POLO MD [...] POLO MD Unavailable Unavailable Jumalon, M Sruthi DIGITAL LIBRARIAN Unavailable Unavailable Jumalon, M Sruthi DIGITAL LIBRARIAN Unavailable Unavailable Jumalon, M Sruthi DIGITAL LIBRARIAN Unavailable Unavailable Jumalon, M Sruthi DIGITAL LIBRARIAN Unavailable Unavailable Jumalon, M Sruthi DIGITAL LIBRARIAN Unavailable Unavailable Jumalon, M Sruthi DIGITAL LIBRARIAN Unavailable Unavailable Jumalon, M Sruthi DIGITAL LIBRARIAN Unavailable Unavailable Jumalon, M Sruthi DIGITAL LIBRARIAN Unavailable Unavailable Jumalon, M Sruthi DIGITAL LIBRARIAN Unavailable Unavailable Jumalon, M Sruthi DIGITAL LIBRARIAN Unavailable Unavailable Jumalon, M Sruthi DIGITAL LIBRARIAN Unavailable Unavailable Jumalon, M Sruthi DIGITAL LIBRARIAN Unavailable Unavailable Jumalon, M Sruthi DIGITAL LIBRARIAN Unavailable Unavailable Jumalon, M Sruthi DIGITAL LIBRARIAN Unavailable Unavailable Jumalon, M Sruthi DIGITAL LIBRARIAN Unavailable Unavailable Jumalon, M Sruthi DIGITAL LIBRARIAN Unavailable Unavailable Jumalon, M Sruthi DIGITAL LIBRARIAN Unavailable Unavailable Jumalon, M Sruthi DIGITAL LIBRARIAN Unavailable Unavailable Jumalon, M Sruthi DIGITAL LIBRARIAN Unavailable Unavailable Jumalon, M Sruthi DIGITAL LIBRARIAN Unavailable Unavailable Jumalon, M Sruthi DIGITAL LIBRARIAN Unavailable Unavailable Jumalon, M Sruthi DIGITAL LIBRARIAN Unavailable Unavailable Jumalon, M Sruthi DIGITAL LIBRARIAN Unavailable Unavailable Jumalon, M Sruthi DIGITAL LIBRARIAN Unavailable Unavailable Jumalon, M Sruthi DIGITAL LIBRARIAN Unavailable Unavailable Jumalon, M Sruthi DIGITAL LIBRARIAN Unavailable Unavailable Jumalon, M Sruthi DIGITAL LIBRARIAN Unavailable Unavailable Jumalon, M Sruthi DIGITAL LIBRARIAN Unavailable Unavailable Evan, A Elías PIZANO Unavailable [...] JANNETH PIZANO Unavailable Unavailable MEDENT_104, NA Unavailable [phone] Kelly Hernandes MD Unavailable Unavailable Kelly Hernandes [...] Kelly Hernandez MD Unavailable Unavailable Ricky, Kelly eHrnandez MD Unavailable Unavailable Ricky, Kelly Hernandez MD Unavailable Unavailable Ricky, Kelly Hernandez MD Unavailable Unavailable Ricky, Kelly Hernandez MD Unavailable Unavailable Ricky, Kelly Hernandez MD Unavailable Unavailable Ricky, Kelly Hernandez MD Unavailable Unavailable Ricky, Kelly Hernandez MD Unavailable Unavailable Ricky, Kelly Hrenandez MD Unavailable Unavailable Ricky, A Mary PIZANO [...] Hernandez MD Unavailable Unavailable Lara, L Bette DIGITAL LIBRARIAN Unavailable Unavailable Lara, L Bette DIGITAL LIBRARIAN Unavailable Unavailable Lara, L Bette DIGITAL LIBRARIAN Unavailable Unavailable Lara, L Bette DIGITAL LIBRARIAN Unavailable Unavailable Lara, L Bette DIGITAL LIBRARIAN Unavailable Unavailable Lara, L Bette DIGITAL LIBRARIAN Unavailable Unavailable Lara, L Bette DIGITAL LIBRARIAN Unavailable Unavailable Lara, L Bette DIGITAL LIBRARIAN Unavailable Unavailable Lara, L Bette DIGITAL LIBRARIAN Unavailable Unavailable Lara, L Bette DIGITAL LIBRARIAN Unavailable Unavailable Lara, L Bette DIGITAL LIBRARIAN Unavailable Unavailable Lara, L Bette DIGITAL LIBRARIAN Unavailable Unavailable Lara, L Bette DIGITAL LIBRARIAN Unavailable Unavailable Lara, L Bette DIGITAL LIBRARIAN Unavailable Unavailable Lara, L Bette DIGITAL LIBRARIAN Unavailable Unavailable Lara, L Bette DIGITAL LIBRARIAN Unavailable Unavailable Lara, L Bette DIGITAL LIBRARIAN Unavailable Unavailable Lara, L Bette DIGITAL LIBRARIAN Unavailable Unavailable Lara, L Bette DIGITAL LIBRARIAN Unavailable Unavailable Lara, L Bette DIGITAL LIBRARIAN Unavailable Unavailable Lara, L Bette DIGITAL LIBRARIAN Unavailable Unavailable Lara, L Bette DIGITAL LIBRARIAN Unavailable Unavailable Lara, L Bette DIGITAL LIBRARIAN Unavailable Unavailable Lara, L Bette DIGITAL LIBRARIAN Unavailable Unavailable Lara, L Bette DIGITAL LIBRARIAN Unavailable Unavailable Lara, L Bette DIGITAL LIBRARIAN Unavailable Unavailable Lara, L Bette DIGITAL LIBRARIAN Unavailable Unavailable Lara, L Bette DIGITAL LIBRARIAN Unavailable Unavailable Lara, L Bette DIGITAL LIBRARIAN Unavailable Unavailable Lara, L Bette DIGITAL LIBRARIAN Unavailable Unavailable Lara, L Bette DIGITAL LIBRARIAN Unavailable Unavailable Lara, L Bette DIGITAL LIBRARIAN Unavailable Unavailable Lara, L Bette DIGITAL LIBRARIAN Unavailable Unavailable Lara, L Bette DIGITAL LIBRARIAN Unavailable Unavailable Lara, L Bette DIGITAL LIBRARIAN Unavailable Unavailable Lara, L Bette DIGITAL LIBRARIAN Unavailable Unavailable Lara, L Bette DIGITAL LIBRARIAN Unavailable Unavailable Lara, L Bette DIGITAL LIBRARIAN Unavailable Unavailable Lara, L Bette DIGITAL LIBRARIAN Unavailable Unavailable Lara, L Bette DIGITAL LIBRARIAN Unavailable Unavailable Jamie, L Joy BREEDING TECHNICIAN Unavailable Unavailable Jamie, L Joy BREEDING TECHNICIAN Unavailable Unavailable Jamie, L Joy BREEDING TECHNICIAN Unavailable Unavailable Jamie, L Joy BREEDING TECHNICIAN Unavailable Unavailable Jamie, L Joy BREEDING TECHNICIAN Unavailable Unavailable Jamie, L Joy BREEDING TECHNICIAN Unavailable Unavailable Jamie, L Joy BREEDING TECHNICIAN Unavailable Unavailable Jamie, L Joy BREEDING TECHNICIAN Unavailable Unavailable Jamie, L Joy BREEDING TECHNICIAN Unavailable Unavailable Jamie, L Joy BREEDING TECHNICIAN Unavailable Unavailable Jamie, L Joy BREEDING TECHNICIAN Unavailable Unavailable Jamie, L Joy BREEDING TECHNICIAN Unavailable Unavailable Jamie, L Joy BREEDING TECHNICIAN Unavailable Unavailable Jamie, L Joy BREEDING TECHNICIAN Unavailable Unavailable Jamie, L Joy BREEDING TECHNICIAN Unavailable Unavailable Jamie, L Joy BREEDING TECHNICIAN Unavailable Unavailable Jamie, L Joy BREEDING TECHNICIAN Unavailable Unavailable Jamie, L Joy BREEDING TECHNICIAN Unavailable Unavailable Jamie, L Joy BREEDING TECHNICIAN Unavailable Unavailable Jamie, L Joy BREEDING TECHNICIAN Unavailable Unavailable Jamie, L Joy BREEDING TECHNICIAN Unavailable Unavailable Jamie, L Joy BREEDING TECHNICIAN Unavailable Unavailable Jamie, L Joy BREEDING TECHNICIAN Unavailable Unavailable Jamie, L Joy BREEDING TECHNICIAN Unavailable Unavailable Jamie, L Joy BREEDING TECHNICIAN Unavailable Unavailable Jamie, L Joy BREEDING TECHNICIAN Unavailable Unavailable Jamie, L Joy BREEDING TECHNICIAN Unavailable Unavailable Jaime, L Joy BREEDING TECHNICIAN Unavailable Unavailable Jamie, L Joy BREEDING TECHNICIAN Unavailable Unavailable Jamie, L Joy BREEDING TECHNICIAN Unavailable Unavailable Jamie, L Joy BREEDING TECHNICIAN Unavailable Unavailable Jamie, L Joy BREEDING TECHNICIAN Unavailable Unavailable Jamie, L Joy BREEDING TECHNICIAN Unavailable Unavailable Jamie, L Joy BREEDING TECHNICIAN Unavailable Unavailable Jamie, L Joy BREEDING TECHNICIAN Unavailable Unavailable Jamie, L Joy BREEDING TECHNICIAN Unavailable Unavailable Jamie, L Joy BREEDING TECHNICIAN Unavailable Unavailable Agustin Fuentes MD Unavailable Unavailable [...] Ricky, Kelly Hernandez MD Unavailable Unavailable Mandappa, Xiomy CASAC Unavailable Unavailable Mandappa, Xiomy CASAC Unavailable Unavailable Mandappa, Xiomy CASAC Unavailable Unavailable Mandappa, Xoimy CASAC Unavailable Unavailable Lizeth SMITH MD Unavailable [...] Lizeth SMITH MD Unavailable Unavailable Pleskach, Milady DIGITAL LIBRARIAN Unavailable Unavailable Pleskach, Milady DIGITAL LIBRARIAN Unavailable Unavailable Pleskach, Milady DIGITAL LIBRARIAN Unavailable Unavailable Pleskach, Milady DIGITAL LIBRARIAN Unavailable Unavailable Pleskach, Milady DIGITAL LIBRARIAN Unavailable Unavailable Pleskach, Milady DIGITAL LIBRARIAN Unavailable Unavailable Pleskach, Milady DIGITAL LIBRARIAN Unavailable Unavailable Pleskach, Milady DIGITAL LIBRARIAN Unavailable Unavailable Pleskach, Milady DIGITAL LIBRARIAN Unavailable Unavailable Pleskach, Milady DIGITAL LIBRARIAN Unavailable Unavailable Pleskach, Milady DIGITAL LIBRARIAN Unavailable Unavailable Pleskach, Milady DIGITAL LIBRARIAN Unavailable Unavailable Pleskach, Milady DIGITAL LIBRARIAN Unavailable Unavailable Pleskach, Milady DIGITAL LIBRARIAN Unavailable Unavailable Pleskach, Milady DIGITAL LIBRARIAN Unavailable Unavailable Pleskach, Milady DIGITAL LIBRARIAN Unavailable Unavailable Pleskach, Milady DIGITAL LIBRARIAN Unavailable Unavailable Pleskach, Milady DIGITAL LIBRARIAN Unavailable Unavailable Pleskach, Milady DIGITAL LIBRARIAN Unavailable Unavailable Pleskach, Milady DIGITAL LIBRARIAN Unavailable Unavailable Pleskach, Milady DIGITAL LIBRARIAN Unavailable Unavailable Pleskach, Milady DIGITAL LIBRARIAN Unavailable Unavailable Pleskach, Milady DIGITAL LIBRARIAN Unavailable Unavailable Pleskach, Milady DIGITAL LIBRARIAN Unavailable Unavailable Pleskach, Milady DIGITAL LIBRARIAN Unavailable Unavailable Pleskach, Milady DIGITAL LIBRARIAN Unavailable Unavailable Pleskach, Milady DIGITAL LIBRARIAN Unavailable Unavailable Pleskach, Milady DIGITAL LIBRARIAN Unavailable Unavailable Petrancosta, Bossier Hanny PA-C Unavailable Unavailabl e Petrancosta, Bossier Hanny PA-C Unavailable Unavailabl e Petrancosta, Bossier Hanny PA-C Unavailable Unavailabl e Petrancosta, Bossier Hanny PA-C Unavailable Unavailabl e Petrancosta, Bossier Hanny PA-C Unavailable Unavailabl e Petrancosta, Bossier Hanny PA-C Unavailable Unavailabl e Petrancosta, Bossier Hanny PA-C Unavailable Unavailabl e Petrancosta, Bossier Hanny PA-C Unavailable Unavailabl e Petrancosta, Bossier Hanny PA-C Unavailable Unavailabl e Petrancosta, Bossier Hanny PA-C Unavailable Unavailabl e Petrancosta, Bossier Hanny PA-C Unavailable Unavailabl e Petrancosta, Bossier Hanny PA-C Unavailable Unavailabl e Petrancosta, Bossier Hanny PA-C Unavailable Unavailabl e Petrancosta, Bossier Hanny PA-C Unavailable Unavailabl e Petrancosta, Bossier Hanny PA-C Unavailable Unavailabl e Petrancosta, Bossier Hanny PA-C Unavailable Unavailabl e Petrancosta, Bossier Hanny PA-C Unavailable Unavailabl e Petrancosta, Bossier Hanny PA-C Unavailable Unavailabl e Petrancosta, Bossier Hanny PA-C Unavailable Unavailabl e Petrancosta, Phillip Hanny PA-C Unavailable Unavailabl e Petrancosta, Phillip Hanny PA-C Unavailable Unavailabl e Petrancosta, Bossier Hanny PA-C Unavailable Unavailabl e ALAM, ANTHONY-E [...] is protected by Article 27-F of the [facility] Public Health law. If you continue you may have access to information: Regarding HIV / AIDS; Provided by facilities licensed or operated by the [facility] Office of Mental Health; or Provided by the [facility] Office for People With Developmental Disabilities. If such information is present, then the following [facility] mandated warning applies: This information has been [...] law may result in a fine or fdc sentence or both. A general authorization for [...] Description Data Source(s) Unknown Male Problem [facility] ([facility] ) Unknown Male Problem [facility] ([facility] Unknown Unknown Problem [facility] ([facility] mother,father Encounters Encounter Providers Location Date Indications Data Source(s ) Outpatient Attender: Joy Ayala NPReferrer: AUNG VITAL MD 01/05/2021 12:00:00 AM [facility] Outpatient Attender: Joy Ayala NPReferrer: AUNG VITAL MD 12/15/2020 12:00:00 AM [facility] Inpatient Attender: JANNETH Xiao matthew: AUNG VITAL MDAttender: TARIQ MENDIOLA MDAttender: LILIANA HARKINS DOAdmitter: LILIANA HARKINS DO 06:17:16 AM EST Lab [facility] Inpatient Attender: JANNETH castro: MD Butterfield: TARIQ MENDIOLA MDAttender: Elías Gordon MDAdmitter: Elías Gordon MD 1 01/07/2020 05:59:00 AM EST - 12/03/2020 04:05:00 PM EST LOW BACK PAIN, 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 [facility] LOW BACK PAIN, 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 Patient discharged. ( in Healthcare facility) Attender: JANNETH Bethea: MD [place]: Elías Gordon MDAdmitter: Elías Gordon MDConsultant: Mary Hernandes MD 11/06/2020 05:59:00 AM EST [facility] Inpatient Attender: TARIQ Bethea: Elías Gordon MD 11/06/2020 05:59:00 AM EST [facility] Outpatient Attender: LILIANA HARKINS DO 11/05/2020 09:35:27 AM EST Lab [facility] Outpatient Attender: LILIANA HARKINS DO 11/04/2020 07:52:40 PM EST [facility] Outpatient Attender: Elías Gordon MD 11/04/2020 06:0 9:00 PM EST TYPE AND SCREEN [facility] TYPE AND SCREEN Outpatient Attender: Elías Gordon MDReferrer: Mary vazquez MD 11/04/2020 03:54:47 PM EST [facility] Recurring Patient Attender: EDER POLO MDReferrer: EDER POLO MD 11/04/2020 02:34:59 PM EST [facility] Outpatient Attender: Elías Gordon MD 11/04/2020 12:0 8:00 PM EST L3-S1 POSTERIOR SPINAL FUSION WITH INSTRUMENTATION, POSTERIO [facility] L3-S1 POSTERIOR SPINAL FUSION WITH INSTR UMENTATION, POSTERIO Outpatient Attender: NA [facility]_104 CMP Internal Med at [facility] 11/03/2020 10:15:00 AM EST [facility] ([facility] Outpatient Attender: Milady Galeas [facility] Main Office 11/02/2020 0 2:15:00 PM EST [facility] ([facility] Outpatient Attender: EDER MCLEANeferrer: Mary parks MD 10/29/2020 12:07:30 PM EST [facility] Recurring Patient Attender: EDER POLO MDReferrer: EDER POLO MD 10/29/2020 10:25:18 AM EST [facility] Outpatient Attender: Brenton Mccabeerrer: EDER HEDRICK MD 10/19/2020 09:08:01 PM EST [facility] Outpatient Attender: Milady Galeas [facility] Main Office 10/13/2020 1 2:15:00 PM EST [facility] ([facility] Outpatient Attender: Brenton Mccabeerrer: EDER HEDRICK MD 10/11/2020 05:12:57 PM EST [facility] Outpatient Attender: Hanny Tyson PA-C Main Office 09/23/2020 09:45:00 AM EST [facility] ([facility] Outpatient Attender: Brenton DALTONeferrer: EDER HEDRICK MD 09/15/2020 11:43:14 AM EDT [facility] Outpatient Admitter: EDER POLO MDReferrer: EDER POLO MD MOB-MOB.PAT 09/10/2020 11:13:22 AM EDT - 09/10/2020 11:13:27 AM EDT [facility] Outpatient Attender: EDER POLO MDAdmitter: EEDR POLO MDReferrer: EDER POLO MD MOB-MOB.PAT 09/07/2020 02:12:47 PM EDT - 09/07/2020 03:00:43 PM EDT [facility] Outpatient Attender: Hanny Tyson PA-C Main Office 09/02/2020 02:15:00 PM EDT [facility] ([facility] Inpatient Attender: KEEGAN SMITH MDAt tender: EDER POLO MDAdmitter: EDER POLO MD [id number] 08/24/2020 08:19:05 AM EDT - 09/17/2020 12:54:00 PM EDT [facility] Patient discharged. Outpatient Attender: EDER POLO MDReferrer: EDER POLO MD 08/14/2020 10:39:10 AM EDT [facility] Outpatient Attender: EDER POLO MDReferrer: Xiomy Marques CASAC 07/16/2020 11:36:39 AM EDT [facility] Recurring Patient Attender: EDER PLOO MDReferrer: EDER POLO MD 07/16/2020 10:42:02 AM EDT [facility] Outpatient Attender: Tracey Boyle MD Physical Therapy 06/29 03:45:00 PM EDT [facility] ([facility] ) Outpatient Referrer: Bette Lara DIGITAL LIBRARIAN 05/11/2020 05:07 :00 AM EDT [facility] Outpatient Attender: [id number] [facility] 04/28/2020 07:41:57 PM EDT [facility] Outpatient Attender: ZEINA ALONZO NP Physical Therapy 04/17/2020 0 9:45:00 AM EDT [facility] ([facility]) Outpatient Attender: ZEINA ALONZO NP Physical Therapy 03/16/2020 0 9:15:00 AM EDT [facility] ([facility]) Outpatient Attender: Tracey Boyle MD Physical Therapy 02/12 02:30:00 PM EDT [facility] ([facility]) Outpatient Attender: Agustin Fuentes MD Physical Therap y 01/02/2020 09:15:00 AM EST [facility] ([facility]) Outpatient Referrer: Bette Lara DIGITAL LIBRARIAN 01/01/2020 03:25 :00 PM EST [facility] Outpatient Attender: ZEINA ALONZO NP Physical Therapy 12/18/2019 0 1:30:00 PM EST [facility] ([facility]) Sruthi Maria, BREEDING TECHNICIAN: [id number], [place] [address], Ph. Attender: Sruthi Maria [facility] Office 11/25/2019 12:00:00 AM EST ATHE NA ([facility]) Outpatient Attender: Sandrine KELLEY Main Office 10/22/2019 07:45:00 AM EST [facility] ([facility] Outpatient Attender: ZEINA ALONZO NP Physical Therapy 10/16/2019 1 0:15:00 AM EST [facility] ([facility]) Sruthi Maria BREEDING TECHNICIAN: [address], [place] [address], Ph. Attender: Sruthi Maria [facility] Office 10/15/2019 12:00:00 AM EST [facility] NA ([facility]) Sruthi Maria, BREEDING TECHNICIAN: [id number], [place] [address], Ph. Attender: Sruthi Maria [facility] - [facility] - Main Office 10/15/2019 12:00:00 AM EST [facility] NA ([facility]) Immunizations Vaccine Date Status Description [...] NEEDED FOR NAUSEA AND VOMITING SOLD: 10/24/2020 [facility] pantoprazole 40 MG Delayed Release Oral Tablet PANTOPRAZOLE SODIUM 10/24/2020 12:00:00 AM EST tablet,delayed release (DR/EC) 30 T JAKE ONE TABLET BY MOUTH EVERY DAY TAKE ONE TABLET BY MOUTH EVERY DAY SOLD: 10/24/2020 [facility] Docusate Sodium 100 MG Oral Capsule [...] DAILY DOSE = TWO TABLETS SOLD: 10/24/2020 [facility] 7.5-325 mg 10/14/2020 12:00:00 AM EST [...] UNITS UNDER THE SKIN DAILY SOLD: 10/11/2020 [facility] Acetaminophen 325 MG / Oxycodone Hydrochloride [...] 10/11/2020 12:00:00 AM EST active [facility] ([facility] 4 mg 10/07/2020 12:00:00 AM [...] DAILY DOSE = EIGHT TABLETS SOLD: 09/30/2020 [facility] tizanidine 4 MG Oral Tablet TIZANIDINE [...] dose, Post-op
Post-op day #2Hold for BM
[facility] Medication administered onsite ondansetron (ZOFRAN) injection 8 mg [id number] 09/17/2020 10:12:0 3 AM EDT 8 mg Intravenous active 8 mg, In travenous, Every 4 hours PRN, nausea, vomiting, Starting Eli 09/17/20 at 1012, For 22 doses, Post-op
If unable to take PO
[facility] Medication administered onsite Calcium Carbonate 500 MG Chewable Tablet calcium carbonate (TUMS) chewable tablet 1,000 mg calcium carbonate (TUMS) chewable tablet 1,000 mg 08/21 10:12:03 AM EDT 1000 mg Oral active 1,000 mg, Oral, 2 times daily PRN, indigestion, heartburn, Starting Eli 09/17/20 at 1012, Post-op [facility] Medication administered onsite Acetaminophen 325 MG / [...] 09/17/20 at 1012, For 7 days, Post-op [facility] Medication administered onsite 1.5 ML Insulin Glargine [...] as needed Max Daily Amount: 12 tablets [facility] Acetaminophen 325 MG / Hydrocodone Bitartrate 5 [...] Starting Mon09/16/20 at 1231, For 7 days [facility] Medication administered onsite Acetaminophen 325 MG / Hydrocodone Rosanna trate 5 MG Oral Tablet HYDROcodone- acetaminophen (NORCO) 5-325 MG per tablet 1 tablet HYDROcodone-acetaminophen (NORCO) 5-325 MG per tablet 1 tablet 09/16/2020 12:31:29 PM EDT 1 { tbl} Oral active 1 tablet, Oral, Every 4 hours PRN, mild pain (1-3), moderate pain (4-6), Starting Mon09/16/20 at 1231, For 7 days
FOR MILD PAIN
[facility] Medication administered onsite pantoprazole 40 MG Delayed Release Oral Tablet pantoprazole (PROTONIX) EC tablet 40 mg pantoprazole (PROTONIX) EC tablet 40 mg 09/16/2020 11:00:00 AM E DT 40 mg Oral completed Gastroesophageal Reflux Diseas e 40 mg, Oral, Once, Indications: Gastroesophageal Reflux Disease, Mon09/16/20 at 1100, For 1 dose [facility] Gastroesophageal Reflux Disease Medication administered onsite Fluoxetine 20 MG Oral Capsule FLUoxetine (PROzac) caps ule 40 mg FLUoxetine (PROzac) capsule 40 mg 09/16/2020 09:00:00 AM EDT 40 mg Oral active 40 mg, Oral, Daily, First dose on Mon09/16/20 at 0900, Post-op [facility] Medication administered onsite POLYETHYLENE GLYCOL 3350 142 MG/ML Oral Solution polyethylene glycol (GLYCOLAX) packet 17 g polyethylene glycol (GLYCOLAX) packet 17 g 09/16/2020 09:00:00 AM EDT 17 g Oral active 17 g, Or al, Daily, First dose on Mon09/16/20 at 0900, Post-op
Start POD #1
[facility] Medication administered onsite Clonidine Hydrochloride 0.1 MG Oral Tablet cloNIDine ( CATAPRES) tablet 0.1 mg cloNIDine (CATAPRES) tablet 0.1 mg 09/16/2020 02:00:00 AM EDT 0.1 mg Oral completed 0.1 mg, Oral, Once, Mon09/16/20 at 0200, For 1 dose [facility] Medication administered onsite Magnesium Hydroxide 80 MG/ML Oral Suspen marco a magnesium hydroxide (MILK OF MAGNESIA) 400 MG/5ML suspension 30 mL magnesium hydroxide (MILK OF MAGNESIA) 4 00 MG/5ML suspension 30 mL 09/16/2020 12:00:00 AM EDT 30 mL Oral active 30 mL, Oral, Daily PRN, constipation, Starting Mon09/16/20 at 0000, Post- op
Start Post-op day #1. Hold for BM
[facility] Medication administered onsite Bisacodyl 10 MG Rectal Suppository bisacodyl (DULCOLAX ) suppository 10 mg bisacodyl (DULCOLAX) suppository 10 mg 09/16/2020 12:00:00 AM EDT 10 mg Rectal active 10 mg, Rectal, Daily PRN, constipation, for constipation unrelieved by miralax/MOM, Starting Mon09/16/20 at 0000, For 4 days, Post- op
For post-op day #1, #3, and #4Hold for BM
[facility] Medication administered onsite varenicline 1 MG Oral Tablet varenicline (CHANTIX) tab let 1 mg varenicline (CHANTIX) tablet 1 mg 09/15/2020 09:00:00 PM EDT 1 mg Oral active 1 mg, Oral, 2 times daily, First dose on Mon09/15/20 at 2100, Post-op
Give with meals and with a full glass of water.
[facility] Medication administered onsite Mirtazapine 30 MG Oral Tablet mirtazapine (REMERON) ta blet 15 mg mirtazapine (REMERON) tablet 15 mg 09/15/2020 09:00:00 PM EDT 15 mg Oral active 15 mg, Oral, Nightly, First dose on Mon09/15/20 at 2100, Post-op [facility] Medication administered onsite Cefazolin 1000 MG Injection [...] minutes. Use within 1 hour of reconstitution
[facility] Perioperative Pharmacoprophylaxis Medication administered onsite Docusate Sodium 50 MG / sennosides, INTERMEDIATE 8.6 MG Oral Tablet senna-docusate (PERICOLACE) 8.6-50 MG 2 tablet senna-docusate (PERICOLACE) 8.6-50 MG 2 tablet 09/15/2020 09:00:00 PM EDT 2 {tbl} Oral active 2 tablet, Oral, Nightly, First dose on Mon09/15/20 at 2100, Post-op
hold for loose stools
[facility] Medication administered onsite Oxycodone Hydrochloride 10 MG Oral Tablet Oxycodone HC l TABS 10 mg Oxycodone HCl TABS 10 mg 09/15/2020 06:05:30 PM EDT 10 mg Oral aborte d 10 mg, Oral, Every 4 hours PRN, severe pain (7-10), Starting Mon09/15/20 at 1805, For 163 hours, Post-op [facility] Medication administered onsite Cefazolin 1000 MG Injection [...] minutes. Use within 1 hour of reconstitution
[facility] Perioperative Pharmacoprophylaxis Medication administered onsite gabapentin 300 MG Oral Capsule gabapentin (NEURONTIN) capsule 300 mg gabapentin (NEURONTIN) capsule 300 mg 09/15/2020 03:00:00 PM EDT 300 mg Oral active 300 mg, Oral, 3 times daily, First dose on Mon09/15/20 at 1500, Post-op [facility] Medication administered onsite Acetaminophen 500 MG Oral Tablet acetaminophen (TYLENO L) tablet 1,000 mg acetaminophen (TYLENOL) tablet 1,000 mg 09/15/2020 02:00:00 PM EDT 1000 mg Oral active 1,000 mg, Oral , Every 6 hours (relative), First dose on Mon09/15/20 at 1400, Post-op [facility] Medication administered onsite sodium chloride 0.9% (NS) infusion 5809-0721-63 09/15/2020 02:00:00 P M EDT Intravenous active at 100 mL/hr, Intravenous, Continuous, Starting Mon09/15/20 at 1400, Post-op [facility] Medication administered onsite 2 ML Metoclopramide 5 MG/ML Prefilled Sy ringe metoclopramide (REGLAN) injection 10 mg metoclopramide (REGLAN) injection 10 mg 09/15/2020 01:41:33 PM E DT 10 mg Intravenous completed 10 mg, I ntravenous, Every 6 hours PRN, nausea not relieved by Zofran, Starting Mon09/15/20 at 1341, For 24 hours, Post-op
If nausea not relieved by Zofran; Renal dosing per pharmacy
[facility] Medication administered onsite ondansetron (ZOFRAN) injection 4 mg [id number] 09/15/2020 01:41:3 3 PM EDT 4 mg Intravenous aborted 4 mg, In travenous, Every 4 hours PRN, nausea, vomiting, Starting Mon09/15/20 at 1341, Post-op
If unable to take PO
[facility] Medication administered onsite Mineral Oil 1000 MG/ML Enema mineral oil enema 1 enema mineral oil enema 1 enema 09/15/2020 01:41:33 PM EDT 1 {enema} Rectal active 1 enema, Rectal, Daily PRN, constipation, if unrelieved by dulcolax, Starting Mon09/15/20 at 1341, Post-op
hold for loose stools
[facility] Medication administered onsite Ondansetron 4 MG Disintegrating Oral Tab let ondansetron (ZOFRAN-ODT) disintegrating tablet 4 mg ondansetron (ZOFRAN-ODT) disintegrating tablet 4 mg 09/15/2020 01:41:33 PM EDT 4 mg Oral active 4 mg, Oral, Every 4 hours PRN, nausea, vomiting, Starting Mon09/15/20 at 1341, Post-op [facility] Medication administered onsite Oxycodone Hydrochloride 5 MG Oral Tablet oxyCODONE (ROXICODONE) immediate release tablet 5 mg oxyCODONE (ROXICODONE) immediate release tablet 5 mg 09/15/2020 01:41:33 PM EDT 5 mg Oral aborted 5 mg, Oral, Every 4 hours PRN, severe pain (7-10), Starting Mon09/15/20 at 1341, For 7 days, Post-op [facility] Medication administered onsite fentaNYL Citrate (PF) (SUBLIMAZE) injection 25 mcg [id number] -[id number] 09/15/2020 01:41:33 PM EDT 25 ug Intravenous active 25 mcg, Intravenous, Every 3 hours PRN, for severe breakthrough pain (7-10) if oral opioid ineffective, Starting Mon09/15/20 at 1341, For 7 days, Post-op [facility] Medication administered onsite Methocarbamol 500 MG Oral Tablet methocarbamol (ROBAXI N) tablet 500 mg methocarbamol (ROBAXIN) tablet 500 mg 09/15/2020 01:41:33 PM EDT 50 0 mg Oral active 500 mg, Oral, 4 times daily PRN, muscle spasms, Starting Mon09/15/20 at 1341, Post-op [facility] Medication administered onsite Insulin Glargine 100 UNT/ML Injectable S olution [Lantus] insulin glargine (LANTUS) injection 20 Units insulin glargine (LANTUS) injection 20 Units 09/15/2020 01:00:00 PM EDT 20 U Subcutaneous active 20 Units, Subcutaneous, Daily (Lantus), First dose on Mon09/15/20 at 1300, PACU & Post- op
Basal Insulin (Lantus) Adjustments based on AM Blood GlucoseBlood GlucoseAdjustmentLess than 70 mg/dl Nursing to initiate hypoglycemia [id number] to 100 mg/dl Pharmacy to decrease total daily d ose by 20%101 to 200 mg/dl No Change
[facility] Medication administered onsite Insulin Lispro 100 UNT/ML [...] <50%Eats Nothing (mg/dl) of meal of mealor [id number] units 2 units 0 ahzyq420- 1706 units 3 units 0 -3539 units 4 units 1 figgb615- 2708 units 5 units 2 zplny112-5951 units 6 units 3 xzvty152- 93446 units 7 units 4 [id number] units 8 units 5 units>420 call MD12 units 9 units 6 unitsTest glucose within 30 minutes of insulin administration.Administer insulin within 15 minutes (before or after) of the patient starting to eat.For patients that are NPO, use theNPO (correction) scale to cover POC glucose at 08:00, 12:00, 17:00.
[facility] Medication administered onsite fentaNYL Citrate (PF) (SUBLIMAZE) injection 25 mcg [id number] -32 09/15/2020 11:16:33 AM EDT 25 ug Intravenous aborted 25 mcg, Intravenous, Every 5 min PRN, moderate pain (4-6), Starting Mon09/15/20 at 1116, For 12 doses, PACU (only) [facility] Medication administered onsite HYDROmorphone (DILAUDID) injection 0.5 mg [id number] 09/15/2020 11:16:33 AM EDT 0.5 mg Intravenous aborted 0.5 mg, Intravenous, Every 5 min PRN, severe pain (7-10), Starting Mon09/15/20 at 1116, For 5 doses, PACU (only) [facility] Medication administered onsite Glucose 254 MG/ML Oral Solution [Dex4] glucose (DEX4) liquid 15 g glucose (DEX4) liquid 15 g 09/15/2020 06:20:59 AM EDT 15 g Oral compl eted 15 g, Oral, As needed, low blood sugar, Starting Mon09/15/20 at 0620, For 2 doses, Pre-op
Per policy glucose under 70
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
To be administered just prior to to transport to operating room
[facility] Chronic low back pain, unspecified back pain [...] regionHerniated nucleus pulposus, L5-S1 15 mL, Mouth/Throat, call center manager, Mon at 0600, For 1 dose, Pre- op
Swish for 30 seconds and spit in pre-induction unit
[facility] Chronic low back pain, unspecified back pain [...] nucleus pulposus, L5-S1 10 mg, Intrav enous, call center manager, Mon09/15/20 at 0600, For 1 dose, Pre-op
To be administered just prior to to transport to operating room
[facility] Chronic low back pain, unspecified back pain laterality, unspecified whether sciatica present Spondylolisthesis of lumbosacral region Herniated nucleus pulposus, L5-S1 Medication administered onsite ondansetron (ZOFRAN) injection 4 mg [id number] 09/15/2020 06:00:0 0 AM EDT 4 mg Intravenous completed Chronic low nikki k pain, unspecified back pain laterality, unspecified whether sciatica presentSpondylolisthesis of lumbosacral regionHerniated nucleus pulposus, L5-S1 4 mg, Intrave nous, call center manager, Mon09/15/20 at 0600, For 1 dose, Pre-op
To be administered just prior to to transport to operating room
[facility] Chronic low back pain, unspecified back pain [...] ravenous, Continuous, Starting Mon09/15/20 at 0600, Pre-op [facility] Medication administered onsite 1 mg 07/16/2020 12:00:00 AM EDT tablet 56 TAKE ONE TABLET BY MOUTH TWICE A DAY TAKE ONE TABLET BY MOUTH TWICE A DAY SOLD: 07/16/2020 [facility] 100 unit/mL (3 mL) 07/01/2020 12:00:00 [...] 03/16/2020 12:00:00 AM EDT active [facility] ([facility]) 100 unit/mL (3 [...] Lidocaine 12/24/2019 12:00:00 AM EST active [facility] ([facility] ) Menthol 0.04 MG/MG Topical Gel [Biofreeze] Biofreeze 12/24 12:00:00 AM EST active [facility] ( [facility]) Acetaminophen 325 MG / Hydrocodone Bitartrate 5 MG Oral Tabl et Anexsia 12/24/2019 12:00:00 AM EST active [facility] ([facility] ) 4 % 12/24/2019 [...] Seen+++ 11/22/2019 12:00:00 AM EST completed [facility] ([facility]) 1 mg 11/22/2019 [...] 15 MG Oral Tablet ALIYAH ([facility]) meloxicam 15 MG Oral Tablet meloxicam (MOBIC) 15 MG ta blet meloxicam (MOBIC) 15 MG tablet 15 mg Oral aborted Take 15 mg by mouth daily [facility] Acetaminophen 500 MG Oral Tablet acetaminophen (TYLENO L) 500 MG tablet acetaminophen (TYLENOL) 500 MG tablet 1000 mg Oral aborted Take 1,000 mg by mouth every 6 (six) hours as needed for pain [facility] Insurance Providers Payer name Policy type / Coverage type Policy ID Covered republican ID Covered republican's relationship to ojse Policy Jose Plan Information [facility] PLAN [facility] [id number] [facility] [id number] Self [id number] A [id number] MEDICAID GME [id number] S [id number] [facility](MCAID) O [id number] S [id number] [facility] HEA [id number] S [id number] [facility] Comm Plan Medicaid F [id number] SELF [id number] [employer] HEA [id number] S [id number] [facility] Comm Plan Medicaid F [id number] SELF [id number] [facility] MEDICAID [id number] [facility] MEDICAID [id number] Jaycee [id number] INSURANCE COVID-19 COVID Jaycee C OVID INSURANCE COVID-19 [id number] Community Plan Commercial [id number] Self [id number] [facility] Community Plan Commercial [id number] Self [id number] Community Plan Commercial [id number] Self [id number] [facility] Community Plan Commercial [id number] Self [id number] [facility] Community Plan Commercial [id number] Self [id number] [facility] Community Plan Commercial [id number] Self [id number] [facility] MEDICAID PI PI U[facility] Community Plan Commercial [id number] Self [id number] [facility] Community Plan Commercial [id number] Self [id number] [facility] Community Plan Commercial [id number] Self [id number] [facility] Community Plan Commercial [id number] Self [id number] [facility] Comm Plan Medicaid F [id number] SELF [id number] c Community Plan Commercial [id number] Self [id number] [facility] Community Plan Commercial [id number] Self [id number] Community Plan Commercial [id number] Self [id number] c Community Plan Commercial [id number] Self [id number] [facility] COMMUNITY PLAN MCDHMO [id number] SP [id number] [facility] (HMO) [id number] Self [id number] [facility] [employer] (HMO) [id number] Self [id number] HMO BLUE [id number] SP [id number] Problems, Conditions, and Diagnoses Code Display Name Description Problem Type Effective Dates Data Source(s) E11.9 Diabetes mellitus Diabetes mellitus [id number] 09/15/2020 12:00:00 AM EDT [facility] M43.17 Spondylolisthesis of lumbosacral region Spondylolisthesis of lumbosacral region [id number] 09/15/2020 12:00:00 AM EDT [facility] M51.27 Herniated nucleus pulposus, L5-S1 Herniated nucl eus pulposus, L5-S1 [id number] 09/15/2020 12:00:00 AM EDT [facility] M54.5 Low back pain Low back pain [id number] 09/07/2020 12:00:00 AM EDT [facility] [id number] Type 2 diabetes mellitus Type 2 diabetes mellitus Prob jim 01/02/2020 12:00:00 AM EST [facility] ([facility] ) G89.29 Other chronic pain Other chronic pain Diagnosis 05:24:00 AM EDT [facility] M54.5 Low back pain Low back pain Diagnosis 09/15/2020 05:24:00 AM EDT [facility] M43.17 Spondylolisthesis, lumbosacral region Sp ondylolisthesis, lumbosacral region Diagnosis 09/15/2020 05:24:00 AM EDT [facility] 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, lumbosacral region Other intervertebral disc displacement, Diagnosis 09/15/2020 05:24:00 AM EDT [facility] U07.1 COVID-19 COVID-19 Diagnosis 09/10/2020 11:13:22 AM ED T [facility] Surgeries/Procedures Procedure Description Date Indications Data Source(s) AUTOGRAFT SPINE SURGERY BICORT/TRICORT SEP INC 020 12:00:00 AM EST [facility] ([facility]) Osteotomy Spine Posterior Or Posterolateral 3 Col, Lumbar 11/06/2020 12:00:00 AM EST [facility]) Arthrodesis,Combined Posterior Or Posterolateral Tech 11/06/2020 12:00:00 AM EST [facility] ([facility]) ARTHDSIS POST/POSTERLATRL/POSTINTRBDYADL SPC/SEG 11/06 12:00:00 AM EST [facility] ([facility]) Spinal Instrumentation Posterior Segmental, 3-6 Segments 11/06/2020 12:00:00 AM EST [facility] ([facility]) PELVIC FIXATION OTHER THAN SACRUM 11/06/2020 12:00:00 AM EST [facility] ([facility]) Insertion Interbody Biomechanical Device; Each Interspace 11/06/2020 12:00:00 AM EST [facility] ([facility]) GLUC BLD GLUC MNTR DEV CLEARED FDA SPEC HOME USE POCT GLUCOSE Routine 09/17/2020 9:42 AM EDT 09/17/2020 01:42:00 PM EDT [facility] GLUC BLD GLUC MNTR DEV CLEARED FDA SPEC HOME USE POCT GLUCOSE Routine 09/16/2020 5:28 PM EDT 09/16/2020 09:28:00 PM EDT [facility] GLUC BLD GLUC MNTR DEV CLEARED FDA SPEC HOME USE POCT GLUCOSE Routine 09/16/2020 2:22 PM EDT 09/16/2020 06:22:00 PM EDT [facility] GLUC BLD GLUC MNTR DEV CLEARED FDA SPEC HOME USE POCT GLUCOSE Routine 09/16/2020 9:39 AM EDT 09/16/2020 01:39:00 PM EDT [facility] BLOOD COUNT HEMATOCRIT HEMATOCRIT Routine 09/16/2020 4:44 AM EDT 09/16/2020 08:44:00 AM EDT [facility] BASIC METABOLIC PANEL CALCIUM TOTAL BASIC METABOLIC PANEL Routi ne 09/16/2020 4:44 AM EDT 09/16/2020 08:44:00 AM EDT [facility] GLUC BLD GLUC MNTR DEV CLEARED FDA SPEC HOME USE POCT GLUCOSE Routine 09/16/2020 1:09 AM EDT 09/16/2020 05:09:00 AM EDT [facility] GLUC BLD GLUC MNTR DEV CLEARED FDA SPEC HOME USE POCT GLUCOSE Routine 09/15/2020 6:28 PM EDT 09/15/2020 10:28:00 PM EDT [facility] GLUC BLD GLUC MNTR DEV CLEARED FDA SPEC HOME USE POCT GLUCOSE Routine 09/15/2020 4:09 PM EDT 09/15/2020 08:09:00 PM EDT [facility] FLUOROSCOPY SPX <1 HOUR PHYSICIAN TIME XR OR SPINE LUMBAR VINICIO NUATION STAT 09/15/2020 12:44 PM EDT 09/15/2020 04:44:42 PM EDT [facility] GLUC BLD GLUC MNTR DEV CLEARED FDA SPEC HOME USE POCT GLUCOSE Routine 09/15/2020 12:34 PM EDT 09/15/2020 04:34:00 PM EDT [facility] GLUC BLD GLUC MNTR DEV CLEARED FDA SPEC HOME USE POCT GLUCOSE Routine 09/15/2020 11:26 AM EDT 09/15/2020 03:26:00 PM EDT [facility] GLUC BLD GLUC MNTR DEV CLEARED FDA SPEC HOME USE POCT GLUCOSE Routine 09/15/2020 10:13 AM EDT 09/15/2020 02:13:00 PM EDT [facility] GLUC BLD GLUC MNTR DEV CLEARED FDA SPEC HOME USE POCT GLUCOSE Routine 09/15/2020 9:12 AM EDT 09/15/2020 01:12:00 PM EDT [facility] XR OR SPINE LUMBAR XR OR SPINE LUMBAR STAT 09/15/2020 9:07 AM E DT 09/15/2020 01:07:11 PM EDT [facility] RADEX SPINE 1 VIEW SPECIFY LEVEL XR OR SPINE LUMBAR CONTINUATIO N STAT 09/15/2020 8:47 AM EDT 09/15/2020 12:47:42 PM EDT [facility] GLUC BLD GLUC MNTR DEV CLEARED FDA SPEC HOME USE POCT GLUCOSE Routine 09/15/2020 7:59 AM EDT 09/15/2020 11:59:00 AM EDT [facility] ARTHRODESIS POSTERIOR INTERBODY LUMBAR LAMINECTOMY, S PINE, THORACOLUMBAR, 1 LEVEL, WITH DECOMPRESSION AND FUSION 09/15/2020 7:24 AM EDT Herniated nucleus pulposus, L5-S1 Spondylolisthesis, lumbosacral region Low back pain 09/15/2020 11:24:00 AM EDT - 09/15/2020 03:51:00 PM EDT Low back painSpondylolisthesis, lumbosacral regionHerniated nucleus pulposus, L5-S1 [facility] Low back pain Spondylolisthesis, lumbosacral region Herniated nucleus pulposus, L5-S1 GLUC BLD GLUC MNTR DEV CLEARED FDA SPEC HOME USE POCT GLUCOSE Routine 09/15/2020 6:48 AM EDT 09/15/2020 10:48:00 AM EDT [facility] GLUC BLD GLUC MNTR DEV CLEARED FDA SPEC HOME USE POCT GLUCOSE Routine 09/15/2020 6:33 AM EDT 09/15/2020 10:33:00 AM EDT [facility] GLUC BLD GLUC MNTR DEV CLEARED FDA SPEC HOME USE POCT GLUCOSE Routine 09/15/2020 6:16 AM EDT 09/15/2020 10:16:00 AM EDT [facility] POCT I-STAT BETA HCG POCT I-STAT BETA HCG Routine 09/15/2020 6:13 AM EDT 09/15/2020 10:13:00 AM EDT [facility] GLUC BLD GLUC MNTR DEV CLEARED FDA SPEC HOME USE POCT GLUCOSE Routine 09/15/2020 6:03 AM EDT 09/15/2020 10:03:00 AM EDT [facility] GLUC BLD GLUC MNTR DEV CLEARED FDA SPEC HOME USE POCT GLUCOSE Routine 09/15/2020 5:44 AM EDT 09/15/2020 09:44:00 AM EDT [facility] ECG ROUTINE ECG W/LEAST 12 LDS TRCG ONLY W/O I&R ECG 12-LEAD Routine 09/07/2020 3:01 PM EDT Chronic low back pain, unspecified back pain laterality, unspecified whether sciatica present Herniated nucleus pulposus, L5-S1 Spondylolisthesis, lumbosacral region 09/07/2020 07:01:06 PM EDT Spondylolisthesis, lumbosacral regionHerniated nucleus pulposus, [id number] low back pain, unspecified back pain laterality, unspecified whether sciatica present [facility] Spondylolisthesis, lumbosacral region Herniated nucleus pulposus, L5-S1 Chronic low back pain, unspecified back pain laterality, unspecified whether sciatica present THROMBOPLASTIN TIME PARTIAL PLASMA/WHOLE BLOOD APTT Routine 09/07/2020 2:50 PM EDT Chronic low back pain, unspecified back pain laterality, unspecified whether sciatica present Herniated nucleus pulposus, L5-S1 Spondylolisthesis, lumbosacral region 09/07/2020 06:50:00 PM EDT Spondylolisthesis, lumbosacral regionHerniated nucleus pulposus, [id number] low back pain, unspecified back pain laterality, unspecified whether sciatica present [facility] Spondylolisthesis, lumbosacral region Herniated nucleus pulposus, L5-S1 Chronic low back pain, unspecified back pain laterality, unspecified whether sciatica present PROTHROMBIN TIME PROTIME-INR Routine 09/07/2020 2:50 PM EDT Chronic low back pain, unspecified back pain laterality, unspecified whether sciatica present Herniated nucleus pulposus, L5-S1 Spondylolisthesis, lumbosacral region 09/07/2020 06:50:00 PM EDT Spondylolisthesis, lumbosacral regionHerniated nucleus pulposus, [id number] low back pain, unspecified back pain laterality, unspecified whether sciatica present [facility] Spondylolisthesis, lumbosacral region Herniated nucleus pulposus, L5-S1 Chronic low back pain, unspecified back pain laterality, unspecified whether sciatica present BLOOD COUNT COMPLETE AUTOMATED CBC Routine 0 2:50 PM EDT Chronic low back pain, unspecified back pain laterality, unspecified whether sciatica present Herniated nucleus pulposus, L5-S1 Spondylolisthesis, lumbosacral region 09/07/2020 06:50:00 PM EDT Spondylolisthesis, lumbosacral regionHerniated nucleus pulposus, L5-F7Hfikomr low back pain, unspecified back pain laterality, unspecified whether sciatica present [facility] Spondylolisthesis, lumbosacral region Herniated nucleus pulposus, L5-S1 Chronic low back pain, unspecified back pain laterality, unspecified whether sciatica present BLOOD TYPING ABO TYPE AND SCREEN Routine 09/07/2020 2:50 PM EDT Chronic low back pain, unspecified back pain laterality, unspecified whether sciatica present Herniated nucleus pulposus, L5-S1 Spondylolisthesis, lumbosacral region 09/07/2020 06:50:00 PM EDT Spondylolisthesis, lumbosacral regionHerniated nucleus pulposus, [id number] low back pain, unspecified back pain laterality, unspecified whether sciatica present [facility] Spondylolisthesis, lumbosacral region Herniated nucleus pulposus, L5-S1 Chronic low back pain, unspecified back pain laterality, unspecified whether sciatica present HEMOGLOBIN GLYCOSYLATED A1C HEMOGLOBIN A1C Routine 09/07/2020 2:50 PM EDT Chronic low back pain, unspecified back pain laterality, unspecified whether sciatica present Herniated nucleus pulposus, L5-S1 Spondylolisthesis, lumbosacral region 09/07/2020 06:50:00 PM EDT Spondylolisthesis, lumbosacral regionHerniated nucleus pulposus, [id number] low back pain, unspecified back pain laterality, unspecified whether sciatica present [facility] Spondylolisthesis, lumbosacral region Herniated nucleus pulposus, L5-S1 Chronic low back pain, unspecified back pain laterality, unspecified whether sciatica present COMPREHENSIVE METABOLIC PANEL COMPREHENSIVE METABOLIC PANEL Rou baltazar 09/07/2020 2:50 PM EDT Chronic low back pain, unspecified back pain laterality, unspecified whether sciatica present Herniated nucleus pulposus, L5-S1 Spondylolisthesis, lumbosacral region 09/07/2020 06:50:00 PM EDT Spondylolisthesis, lumbosacral regionHerniated nucleus pulposus, [id number] low back pain, unspecified back pain laterality, unspecified whether sciatica present [facility] Spondylolisthesis, lumbosacral region Herniated nucleus pulposus, L5-S1 Chronic low back pain, unspecified back pain laterality, unspecified whether sciatica present [facility]ADNA S AUREUS METHICILLIN RESIST AMP PROBE TQ STAPH PCR SCREEN Routine 09/07/2020 2:46 PM EDT Chronic low back pain, unspecified back pain laterality, unspecified whether sciatica present Herniated nucleus pulposus, L5-S1 Spondylolisthesis, lumbosacral region 09/07/2020 06:46:00 PM EDT Spondylolisthesis, lumbosacral regionHerniated nucleus pulposus, [id number] low back pain, unspecified back pain laterality, unspecified whether sciatica present [facility] Spondylolisthesis, lumbosacral region Herniated nucleus pulposus, L5-S1 Chronic low back pain, unspecified back pain laterality, unspecified whether sciatica present ECG ROUTINE ECG W/LEAST 12 LDS W/I&R 09/02/2020 12:00: 00 AM EDT [facility] ([facility] Diabetic Foot Exam 06/29/2020 12:00:00 AM EDT [facility] ([facility] Amb Glucose Monitoring Interpretation And Report 06/29 12:00:00 AM EDT [facility] ([facility]) Results ID Date Data Source [id number] 12/03/2020 12:05:29 PM EST [facility] Name Value Range Interpretation Code Description Data Tere rce(s) Supporting Document(s) POC GLUCOSE 152 mg/dL (70-99) H [facility] PERFORMED BY CLINICAL STAFF ID Date Data Source [id number] 12/03/2020 07:34:49 AM EST [facility] Name Value Range Interpretation Code Description Data Tere rce(s) Supporting Document(s) POC GLUCOSE 251 mg/dL (70-99) H [facility] PERFORMED BY CLINICAL STAFF ID Date Data Source [id number] 12/03/2020 06:38:08 AM EST [facility] Name Value Range Interpretation Code Description Data Tere rce(s) Supporting Document(s) SODIUM 135 mmol/L (136-145) L [facility] POTASSIUM 4.7 mmol/L (3.6-5.2) [facility] CHLORIDE 97 mmol/L (100-108) L [facility] CO2 30 mmol/L (22-31) [facility] ANION GAP 8 mmol/L (7-16) [facility] UREA NITROGEN 14 mg/dL (7-24) [facility] CREATININE 0.57 mg/dL (0.60-1.00) L [facility] BUN/CREAT RATIO 24.6 RATIO (10.0-20.0) [facility] GLUCOSE 189 mg/dL (70-99) H [facility] CALCIUM 8.4 mg/dL (8.4-10.2) [facility] GFR >60 ml/min/1.73m2 (>59) [facility] GFR ( AMER) >60 ml/min/1.73m2 (>59) [facility] GFR INTERPRETATION [facility] --NORMAL KIDNEY FUNCTION OR MILD DISEASE - GFR >OR= 60CHRONIC KIDNEY DISEASE - GFR 15 - 59RENAL FAILURE - GFR <15 Est. GFR calculation based on the MDRDstudy equation, which assumes a steadystate for creatinine. Est. GFR should notbe used for medication dosing. ID Date Data Source [id number] 12/03/2020 06:12:13 AM EST [facility] Name Value Range Interpretation Code Description Data Tere rce(s) Supporting Document(s) WBC 13.3 10*3/uL (4.1-11.0) H [facility] RBC 2.60 10*6/uL (4.00-5.40) L [facility] HGB 7.6 g/dL (12.0-16.0) L [facility] HCT 23.4 % (36.0-47.0) L [facility] MCV 90.1 fL (80.0-95.0) [facility] MCH 29.0 pg (27.0-32.0) [facility] MCHC 32.2 g/dL (32.0-36.0) [facility] RDW 23.0 % (10.5-14.5) H [facility] PLT 357 10*3/uL (150-450) [facility] MPV 8.3 fL (7.1-10.7) [facility] ID Date Data Source [id number] 12/03/2020 02:20:57 AM EST [facility] Name Value Range Interpretation Code Description Data Tere rce(s) Supporting Document(s) POC GLUCOSE 167 mg/dL (70-99) H [facility] PERFORMED BY CLINICAL STAFF ID Date Data Source [id number] 12/02/2020 10:37:03 PM EST [facility] Name Value Range Interpretation Code Description Data Tere rce(s) Supporting Document(s) POC GLUCOSE 225 mg/dL (70-99) H [facility] NOTIFIED NURSEPERFORMED BY CLINICAL S TAFF ID Date Data Source [id number] 12/02/2020 09:03:29 PM EST [facility] Name Value Range Interpretation Code Description Data Tere rce(s) Supporting Document(s) POC GLUCOSE 199 mg/dL (70-99) H [facility] NOTIFIED NURSEPERFORMED BY CLINICAL S TAFF ID Date Data Source [id number] 12/02/2020 07:52:00 PM EST [facility] Name Value Range Interpretation Code Description Data Tere rce(s) Supporting Document(s) POC GLUCOSE 125 mg/dL (70-99) H [facility] PERFORMED BY CLINICAL STAFF ID Date Data Source [id number] 12/02/2020 06:54:01 PM EST [facility] Name Value Range Interpretation Code Description Data Tere rce(s) Supporting Document(s) POC GLUCOSE 82 mg/dL (70-99) [facility] PERFORMED BY CLINICAL STAFF ID Date Data Source [id number] 12/02/2020 06:28:20 PM EST [facility] Name Value Range Interpretation Code Description Data Tere rce(s) Supporting Document(s) POC GLUCOSE 62 mg/dL (70-99) L [facility] PERFORMED BY CLINICAL STAFF ID Date Data Source [id number] 12/02/2020 06:05:59 PM EST [facility] Name Value Range Interpretation Code Description Data Tere rce(s) Supporting Document(s) POC GLUCOSE 53 mg/dL (70-99) L [facility] PERFORMED BY CLINICAL STAFF ID Date Data Source [id number] 12/02/2020 12:34:07 PM EST [facility] Name Value Range Interpretation Code Description Data Tere rce(s) Supporting Document(s) POC GLUCOSE 150 mg/dL (70-99) H [facility] NOTIFIED NURSEPERFORMED BY CLINICAL S TAFF ID Date Data Source [id number] 12/02/2020 09:40:13 AM EST [facility] Name Value Range Interpretation Code Description Data Tere rce(s) Supporting Document(s) POC GLUCOSE 229 mg/dL (70-99) H [facility] PERFORMED BY CLINICAL STAFF ID Date Data Source [id number] 12/02/2020 06:35:20 AM EST [facility] Name Value Range Interpretation Code Description Data Tere rce(s) Supporting Document(s) WBC 16.6 10*3/uL (4.1-11.0) H [facility] RBC 2.89 10*6/uL (4.00-5.40) L [facility] HGB 8.1 g/dL (12.0-16.0) L [facility] HCT 26.1 % (36.0-47.0) L [facility] MCV 90.1 fL (80.0-95.0) [facility] MCH 27.9 pg (27.0-32.0) [facility] MCHC 31.0 g/dL (32.0-36.0) L [facility] RDW 21.8 % (10.5-14.5) H [facility] PLT 401 10*3/uL (150-450) [facility] MPV 8.4 fL (7.1-10.7) [facility] ID Date Data Source [id number] 12/02/2020 02:58:06 AM EST [facility] Name Value Range Interpretation Code Description Data Tere rce(s) Supporting Document(s) POC GLUCOSE 168 mg/dL (70-99) H [facility] PERFORMED BY CLINICAL STAFF ID Date Data Source [id number] 12/01/2020 09:10:37 PM EST [facility] Name Value Range Interpretation Code Description Data Tere rce(s) Supporting Document(s) POC GLUCOSE 196 mg/dL (70-99) H [facility] NOTIFIED NURSEPERFORMED BY CLINICAL S TAFF ID Date Data Source [id number] 12/01/2020 08:13:36 PM EST [facility] Name Value Range Interpretation Code Description Data Tere rce(s) Supporting Document(s) POC GLUCOSE 192 mg/dL (70-99) H [facility] PERFORMED BY CLINICAL STAFF ID Date Data Source [id number] 12/01/2020 06:54:28 PM EST [facility] Name Value Range Interpretation Code Description Data Tere rce(s) Supporting Document(s) POC GLUCOSE 109 mg/dL (70-99) H [facility] PERFORMED BY CLINICAL STAFF ID Date Data Source [id number] 12/01/2020 05:51:02 PM EST [facility] Name Value Range Interpretation Code Description Data Tere rce(s) Supporting Document(s) POC GLUCOSE 81 mg/dL (70-99) [facility] PERFORMED BY CLINICAL STAFF ID Date Data Source [id number] 12/01/2020 05:27:42 PM EST [facility] Name Value Range Interpretation Code Description Data Tere rce(s) Supporting Document(s) POC GLUCOSE 69 mg/dL (70-99) L [facility] PERFORMED BY CLINICAL STAFF ID Date Data Source [id number] 12/01/2020 04:54:36 PM EST [facility] Name Value Range Interpretation Code Description Data Tere rce(s) Supporting Document(s) POC GLUCOSE 65 mg/dL (70-99) L [facility] PERFORMED BY CLINICAL STAFF ID Date Data Source [id number] 12/01/2020 12:17:36 PM EST [facility] Name Value Range Interpretation Code Description Data Tere rce(s) Supporting Document(s) POC GLUCOSE 196 mg/dL (70-99) H [facility] NOTIFIED NURSEPERFORMED BY CLINICAL S TAFF ID Date Data Source [id number] 12/01/2020 12:08:05 PM EST [facility] Name Value Range Interpretation Code Description Data Tere rce(s) Supporting Document(s) STOOL OCCULT BLOOD (NEG) [facility] ID Date Data Source [id number] 12/01/2020 08:17:17 AM EST [facility] Name Value Range Interpretation Code Description Data Tere rce(s) Supporting Document(s) POC GLUCOSE 360 mg/dL (70-99) H [facility] PERFORMED BY CLINICAL STAFF ID Date Data Source [id number] 12/01/2020 03:01:27 AM EST [facility] Name Value Range Interpretation Code Description Data Tere rce(s) Supporting Document(s) POC GLUCOSE 241 mg/dL (70-99) H [facility] NOTIFIED NURSEPERFORMED BY CLINICAL S TAFF ID Date Data Source [id number] 12/01/2020 02:52:46 AM EST [facility] Name Value Range Interpretation Code Description Data Tere rce(s) Supporting Document(s) POC GLUCOSE 97 mg/dL (70-99) [facility] PERFORMED BY CLINICAL STAFF ID Date Data Source [id number] 11/30/2020 05:47:50 PM EST [facility] Name Value Range Interpretation Code Description Data Tere rce(s) Supporting Document(s) POC GLUCOSE 146 mg/dL (70-99) H [facility] PERFORMED BY CLINICAL STAFF ID Date Data Source [id number] 11/30/2020 01:08:23 PM EST [facility] Name Value Range Interpretation Code Description Data Tere rce(s) Supporting Document(s) POC GLUCOSE 124 mg/dL (70-99) H [facility] NOTIFIED PROVIDERPERFORMED BY CLINICA L STAFF ID Date Data Source [id number] 11/30/2020 09:00:39 AM EST [facility] Name Value Range Interpretation Code Description Data Tere rce(s) Supporting Document(s) POC GLUCOSE 261 mg/dL (70-99) H [facility] PERFORMED BY CLINICAL STAFF ID Date Data Source [id number] 11/30/2020 06:49:24 AM EST [facility] Name Value Range Interpretation Code Description Data Tere rce(s) Supporting Document(s) SODIUM 138 mmol/L (136-145) [facility] POTASSIUM 4.7 mmol/L (3.6-5.2) [facility] CHLORIDE 101 mmol/L (100-108) [facility] CO2 30 mmol/L (22-31) [facility] ANION GAP 7 mmol/L (7-16) [facility] UREA NITROGEN 5 mg/dL (7-24) L [facility] CREATININE 0.52 mg/dL (0.60-1.00) L [facility] BUN/CREAT RATIO 9.6 RATIO (10.0-20.0) L [facility] GLUCOSE 245 mg/dL (70-99) H [facility] CALCIUM 7.9 mg/dL (8.4-10.2) L [facility] GFR >60 ml/min/1.73m2 (>59) [facility] GFR ( AMER) >60 ml/min/1.73m2 (>59) [facility] GFR INTERPRETATION [facility] --NORMAL KIDNEY FUNCTION OR MILD DISEASE - GFR >OR= 60CHRONIC KIDNEY DISEASE - GFR 15 - 59RENAL FAILURE - GFR <15 Est. GFR calculation based on the MDRDstudy equation, which assumes a steadystate for creatinine. Est. GFR should notbe used for medication dosing. ID Date Data Source [id number] 11/30/2020 06:26:41 AM EST [facility] Name Value Range Interpretation Code Description Data Tere rce(s) Supporting Document(s) WBC 9.0 10*3/uL (4.1-11.0) [facility] RBC 2.65 10*6/uL (4.00-5.40) L [facility] HGB 7.6 g/dL (12.0-16.0) L [facility] HCT 23.4 % (36.0-47.0) L [facility] MCV 88.6 fL (80.0-95.0) [facility] MCH 28.6 pg (27.0-32.0) [facility] MCHC 32.3 g/dL (32.0-36.0) [facility] RDW 20.1 % (10.5-14.5) H [facility] PLT 431 10*3/uL (150-450) [facility] MPV 8.1 fL (7.1-10.7) [facility] ID Date Data Source [id number] 11/30/2020 02:52:26 AM EST [facility] Name Value Range Interpretation Code Description Data Tere rce(s) Supporting Document(s) POC GLUCOSE 242 mg/dL (70-99) H [facility] NOTIFIED NURSEPERFORMED BY CLINICAL S TAFF ID Date Data Source [id number] 11/30/2020 01:12:33 AM EST [facility] Name Value Range Interpretation Code Description Data Tere rce(s) Supporting Document(s) POC GLUCOSE 123 mg/dL (70-99) H [facility] NOTIFIED NURSEPERFORMED BY CLINICAL S TAFF ID Date Data Source [id number] 11/29/2020 06:00:29 PM EST [facility] Name Value Range Interpretation Code Description Data Tere rce(s) Supporting Document(s) HGB 7.2 g/dL (12.0-16.0) L [facility] ID Date Data Source [id number] 11/30/2020 01:12:33 AM EST [facility] Name Value Range Interpretation Code Description Data Tere rce(s) Supporting Document(s) POC GLUCOSE 244 mg/dL (70-99) H [facility] PERFORMED BY CLINICAL STAFF ID Date Data Source [id number] 11/29/2020 01:33:56 PM EST [facility] Name Value Range Interpretation Code Description Data Tere rce(s) Supporting Document(s) POC GLUCOSE 186 mg/dL (70-99) H [facility] PERFORMED BY CLINICAL STAFF ID Date Data Source [id number] 11/29/2020 09:42:22 AM EST [facility] Name Value Range Interpretation Code Description Data Tere rce(s) Supporting Document(s) POC GLUCOSE 118 mg/dL (70-99) H [facility] PERFORMED BY CLINICAL STAFF ID Date Data Source [id number] 11/29/2020 07:32:04 AM EST [facility] Name Value Range Interpretation Code Description Data Tere rce(s) Supporting Document(s) HGB 7.0 g/dL (12.0-16.0) L [facility] ID Date Data Source [id number] 11/29/2020 04:33:34 AM EST [facility] Name Value Range Interpretation Code Description Data Tere rce(s) Supporting Document(s) POC GLUCOSE 128 mg/dL (70-99) H [facility] PERFORMED BY CLINICAL STAFF ID Date Data Source [id number] 11/29/2020 02:43:19 AM EST [facility] Name Value Range Interpretation Code Description Data Tere rce(s) Supporting Document(s) POC GLUCOSE 65 mg/dL (70-99) L [facility] PERFORMED BY CLINICAL STAFF ID Date Data Source [id number] 11/28/2020 10:58:44 PM EST [facility] Name Value Range Interpretation Code Description Data Tere rce(s) Supporting Document(s) POC GLUCOSE 100 mg/dL (70-99) H [facility] PERFORMED BY CLINICAL STAFF ID Date Data Source [id number] 11/28/2020 10:01:00 PM EST [facility] Name Value Range Interpretation Code Description Data Tere rce(s) Supporting Document(s) POC GLUCOSE 61 mg/dL (70-99) L [facility] PERFORMED BY CLINICAL STAFF ID Date Data Source [id number] 11/28/2020 05:13:49 PM EST [facility] Name Value Range Interpretation Code Description Data Tere rce(s) Supporting Document(s) POC GLUCOSE 197 mg/dL (70-99) H [facility] NOTIFIED NURSEPERFORMED BY CLINICAL S TAFF ID Date Data Source [id number] 11/28/2020 09:08:21 AM EST [facility] Name Value Range Interpretation Code Description Data Tere rce(s) Supporting Document(s) POC GLUCOSE 187 mg/dL (70-99) H [facility] NOTIFIED NURSEPERFORMED BY CLINICAL S TAFF ID Date Data Source [id number] 11/28/2020 08:31:40 AM EST [facility] Name Value Range Interpretation Code Description Data Tere rce(s) Supporting Document(s) SODIUM 140 mmol/L (136-145) [facility] POTASSIUM 4.6 mmol/L (3.6-5.2) [facility] CHLORIDE 105 mmol/L (100-108) [facility] CO2 29 mmol/L (22-31) [facility] ANION GAP 6 mmol/L (7-16) L [facility] UREA NITROGEN 3 mg/dL (7-24) L [facility] CREATININE 0.47 mg/dL (0.60-1.00) L [facility] BUN/CREAT RATIO 6.4 RATIO (10.0-20.0) L [facility] GLUCOSE 167 mg/dL (70-99) H [facility] CALCIUM 8.6 mg/dL (8.4-10.2) [facility] GFR >60 ml/min/1.73m2 (>59) [facility] GFR ( AMER) >60 ml/min/1.73m2 (>59) [facility] GFR INTERPRETATION [facility] --NORMAL KIDNEY FUNCTION OR MILD DISEASE - GFR >OR= 60CHRONIC KIDNEY DISEASE - GFR 15 - 59RENAL FAILURE - GFR <15 Est. GFR calculation based on the MDRDstudy equation, which assumes a steadystate for creatinine. Est. GFR should notbe used for medication dosing. ID Date Data Source [id number] 11/28/2020 08:08:54 AM EST [facility] Name Value Range Interpretation Code Description Data Tree rce(s) Supporting Document(s) WBC 7.6 10*3/uL (4.1-11.0) [facility] [place] RBC 2.79 10*6/uL (4.00-5.40) L [facility] HGB 7.7 g/dL (12.0-16.0) L [facility] HCT 24.7 % (36.0-47.0) L [facility] MCV 88.5 fL (80.0-95.0) [facility] MCH 27.4 pg (27.0-32.0) [facility] MCHC 31.0 g/dL (32.0-36.0) L [facility] RDW 19.1 % (10.5-14.5) H [facility] PLT 505 10*3/uL (150-450) H [facility] MPV 8.3 fL (7.1-10.7) [facility] ID Date Data Source [id number] 11/28/2020 02:55:00 AM EST [facility] Name Value Range Interpretation Code Description Data Tere rce(s) Supporting Document(s) POC GLUCOSE 190 mg/dL (70-99) H Lab [facility] Lemus NOTIFIED NURSEPERFORMED BY CLINICAL S TAFF ID Date Data Source [id number] 11/28/2020 04:56:00 PM EST [facility] [id number] [place], [place] [id number] NAME: GERALD MESA OF : 1975REPORT: DISCHARGE SUMMARYPATIENT NUMBER: [id number] STATUS: IPMEDICAL RECORD NUMBER: [id number] OF ADMISSION: 11/06/2020DATE OF DISCHARGE:ROOM: 01ADDENDUM TO [...] one of my colleaguesduring discharge.DICTATED BY: FELICITA Leviictated: 11/27/2020 21:18DT: 11/27/2020 21:27Job #: [id number]: [facility] computer generated reports are notconfirmed or authenticated unless they are signed by the providerElectronically Authenticated and Edited by:PAYAL VITAL MD On 11/28/2020 04:56 PM EST Name Value Range Interpretation Code Description Data Tere rce(s) Supporting Document(s) ID Date Data Source [id number] 11/27/2020 09:24:17 PM EST [facility] Name Value Range Interpretation Code Description Data Tere rce(s) Supporting Document(s) POC GLUCOSE 172 mg/dL (70-99) H [facility] NOTIFIED NURSEPERFORMED BY CLINICAL S TAFF ID Date Data Source [id number] 11/27/2020 04:33:07 PM EST [facility] Name Value Range Interpretation Code Description Data Tere rce(s) Supporting Document(s) POC GLUCOSE 93 mg/dL (70-99) [facility] NOTIFIED NURSEPERFORMED BY CLINICAL S TAFF ID Date Data Source [id number] 11/27/2020 04:11:33 PM EST [facility] Name Value Range Interpretation Code Description Data Tere rce(s) Supporting Document(s) POC GLUCOSE 61 mg/dL (70-99) L [facility] NOTIFIED NURSEPERFORMED BY CLINICAL S TAFF ID Date Data Source [id number] 11/27/2020 04:16:15 PM EST [facility] Name Value Range Interpretation Code Description Data Tere rce(s) Supporting Document(s) POC GLUCOSE 41 mg/dL (70-99) LL [facility] NOTIFIED NURSEPERFORMED BY CLINICAL S TAFF ID Date Data Source [id number] 12/03/2020 10:21:35 AM EST [facility] SPECIMEN DESCRIPTION PERIPHERALSP ECIAL REQUESTS NONECULTURE RESULTS NO GROWTH 6 DAYSREPORT STATUS FINAL 12/03/2020 Name Value Range Interpretation Code Description Data Tere rce(s) Supporting Document(s) ID Date Data Source [id number] 12/03/2020 10:21:35 AM EST [facility] SPECIMEN DESCRIPTION PERIPHERALSP ECIAL REQUESTS NONECULTURE RESULTS NO GROWTH 6 DAYSREPORT STATUS FINAL 12/03/2020 Name Value Range Interpretation Code Description Data Tere rce(s) Supporting Document(s) ID Date Data Source [id number] 11/27/2020 12:56:15 PM EST [facility] Name Value Range Interpretation Code Description Data Tere rce(s) Supporting Document(s) POC GLUCOSE 143 mg/dL (70-99) H [facility] PERFORMED BY CLINICAL STAFF ID Date Data Source [id number] 11/27/2020 08:35:27 AM EST [facility] Name Value Range Interpretation Code Description Data Tere rce(s) Supporting Document(s) POC GLUCOSE 87 mg/dL (70-99) [facility] NOTIFIED NURSEPERFORMED BY CLINICAL S TAFF ID Date Data Source [id number] 11/27/2020 08:31:54 AM EST [facility] Name Value Range Interpretation Code Description Data Tere rce(s) Supporting Document(s) POC GLUCOSE 53 mg/dL (70-99) L [facility] NOTIFIED NURSEPERFORMED BY CLINICAL S TAFF ID Date Data Source [id number] 11/27/2020 09:15:37 AM EST [facility] Name Value Range Interpretation Code Description Data Tere rce(s) Supporting Document(s) POC GLUCOSE 44 mg/dL (70-99) LL [facility] NOTIFIED NURSEPERFORMED BY CLINICAL S TAFF ID Date Data Source [id number] 11/27/2020 07:31:15 AM EST [facility] Name Value Range Interpretation Code Description Data Tere rce(s) Supporting Document(s) SODIUM 141 mmol/L (136-145) [facility] POTASSIUM 3.4 mmol/L (3.6-5.2) L [facility] CHLORIDE 105 mmol/L (100-108) [facility] CO2 30 mmol/L (22-31) [facility] ANION GAP 6 mmol/L (7-16) L [facility] UREA NITROGEN 4 mg/dL (7-24) L [facility] CREATININE 0.49 mg/dL (0.60-1.00) L [facility] BUN/CREAT RATIO 8.2 RATIO (10.0-20.0) L [facility] GLUCOSE 52 mg/dL (70-99) L [facility] CALCIUM 8.1 mg/dL (8.4-10.2) L [facility] TOTAL PROTEIN 6.6 g/dL (6.4-8.2) [facility] ALBUMIN 2.2 g/dL (3.5-4.6) L [facility] GLOBULIN 4.4 g/dL (2.7-4.3) H [facility] ALB/GLOB RATIO 0.5 RATIO Lab [facility] [place] [facility] ALKALINE PHOSPHATASE 116 U/L (45-117) [facility] BILIRUBIN,TOTAL 0.1 mg/dL (0.0-1.0) [facility] [place] [facility] PLEASE NOTE:Total bilirubin results may be falselyelevated in patients taking Eltrombopag. AST (SGOT) 17 U/L (11-39) [facility] ALT (SGPT) 14 U/L (12-78) [facility] GFR >60 ml/min/1.73m2 (>59) [facility] GFR ( AMER) >60 ml/min/1.73m2 (>59) [facility] [place] [facility] GFR INTERPRETATION [facility] --NORMAL KIDNEY FUNCTION OR MILD DISEASE - GFR >OR= 60CHRONIC KIDNEY DISEASE - GFR 15 - 59RENAL FAILURE - GFR <15 Est. GFR calculation based on the MDRDstudy equation, which assumes a steadystate for creatinine. Est. GFR should notbe used for medication dosing. ID Date Data Source [id number] 11/27/2020 06:59:02 AM EST [facility] Name Value Range Interpretation Code Description Data Tere rce(s) Supporting Document(s) WBC 6.9 10*3/uL (4.1-11.0) [facility] [place] [facility] [place] RBC 2.63 10*6/uL (4.00-5.40) L [facility] [place] [facility] HGB 7.2 g/dL (12.0-16.0) L [facility] [place] [facility] HCT 22.7 % (36.0-47.0) L [facility] [place] [facility] MCV 86.3 fL (80.0-95.0) [facility] MCH 27.4 pg (27.0-32.0) [facility] [place] [facility] MCHC 31.8 g/dL (32.0-36.0) L [facility] [place] [facility] RDW 18.9 % (10.5-14.5) H [facility] [place] [facility] PLT 531 10*3/uL (150-450) H [facility] [place] [facility] MPV 8.3 fL (7.1-10.7) [facility] [place] [facility] ID Date Data Source [id number] 11/27/2020 02:37:10 AM EST [facility] Name Value Range Interpretation Code Description Data Tere rce(s) Supporting Document(s) POC GLUCOSE 82 mg/dL (70-99) [facility] [place] [facility] PERFORMED BY CLINICAL STAFF ID Date Data Source [id number] 11/26/2020 10:21:03 PM EST [facility] Name Value Range Interpretation Code Description Data Tere rce(s) Supporting Document(s) POC GLUCOSE 157 mg/dL (70-99) H [facility] [place] [facility] NOTIFIED NURSEPERFORMED BY CLINICAL S TAFF ID Date Data Source [id number] 11/26/2020 06:33:02 PM EST [facility] [place] [facility] Name Value Range Interpretation Code Description Data Tere rce(s) Supporting Document(s) POC GLUCOSE 120 mg/dL (70-99) H [facility] [place] [facility] PERFORMED BY CLINICAL STAFF ID Date Data Source [id number] 11/26/2020 11:50:05 AM EST [facility] Name Value Range Interpretation Code Description Data Tere rce(s) Supporting Document(s) POC GLUCOSE 171 mg/dL (70-99) H [facility] [place] [facility] PERFORMED BY CLINICAL STAFF ID Date Data Source [id number] 11/26/2020 09:52:50 AM EST [facility] Name Value Range Interpretation Code Description Data Tere rce(s) Supporting Document(s) POC GLUCOSE 150 mg/dL (70-99) H [facility] [place] [facility] PERFORMED BY CLINICAL STAFF ID Date Data Source [id number] 11/26/2020 02:52:24 PM EST [facility] Name Value Range Interpretation Code Description Data Tere rce(s) Supporting Document(s) RETIC % 2.0 % (0.6-2.1) [facility] PERFORMED AT [address] [place] [id number] RETIC INDEX 1.1 % (0.5-1.9) [facility] [place] [facility] ABSOLUTE RETIC 0.06 10*6/uL (0.027-0.101) [facility] ID Date Data Source [id number] 11/26/2020 10:13:28 AM EST [facility] Name Value Range Interpretation Code Description Data Tere rce(s) Supporting Document(s) IRON,TOTAL @ 14 ug/dL (35-150) L [facility] [place] [facility] [place] UIBC @ 203 ug/dL (130-375) [facility] [place] [facility] TIBC @ 217 ug/dL (250-450) L [facility] [place] [facility] % SATURATION 6 % (12-50) L [facility] [place] [facility] [place] ID Date Data Source [id number] 11/26/2020 10:13:28 AM EST [facility] Name Value Range Interpretation Code Description Data Tere rce(s) Supporting Document(s) FERRITIN @ 63 ng/mL (8-252) [facility] [place] [facility] ID Date Data Source [id number] 11/26/2020 07:23:15 AM EST [facility] [place] [facility] Name Value Range Interpretation Code Description Data Tere rce(s) Supporting Document(s) LDH 152 U/L (84-246) [facility] [place] [facility] ID Date Data Source [id number] 11/26/2020 07:23:15 AM EST [facility] Name Value Range Interpretation Code Description Data Tere rce(s) Supporting Document(s) SODIUM 139 mmol/L (136-145) [facility] [place] [facility] POTASSIUM 3.8 mmol/L (3.6-5.2) [facility] [place] [facility] CHLORIDE 104 mmol/L (100-108) [facility] [place] [facility] CO2 26 mmol/L (22-31) [facility] [place] [facility] ANION GAP 9 mmol/L (7-16) [facility] [place] [facility] UREA NITROGEN 4 mg/dL (7-24) L [facility] [place] [facility] CREATININE 0.54 mg/dL (0.60-1.00) L [facility] [place] [facility] BUN/CREAT RATIO 7.4 RATIO (10.0-20.0) L [facility] [place] [facility] GLUCOSE 207 mg/dL (70-99) H [facility] [place] [facility] CALCIUM 7.8 mg/dL (8.4-10.2) L [facility] [place] [facility] GFR >60 ml/min/1.73m2 (>59) [facility] [place] [facility] GFR ([facility]) >60 ml/min/1.73m2 (>59) [facility] [place] [facility] GFR INTERPRETATION [facility] --NORMAL KIDNEY FUNCTION OR MILD DISEASE - GFR >OR= 60CHRONIC KIDNEY DISEASE - GFR 15 - 59RENAL FAILURE - GFR <15 Est. GFR calculation based on the MDRDstudy equation, which assumes a steadystate for creatinine. Est. GFR should notbe used for medication dosing. ID Date Data Source [id number] 11/26/2020 06:58:11 AM EST [facility] [place] [facility] Name Value Range Interpretation Code Description Data Tere rce(s) Supporting Document(s) WBC 7.4 10*3/uL (4.1-11.0) [facility] [place] [facility] [place] RBC 2.75 10*6/uL (4.00-5.40) L [facility] [place] [facility] HGB 7.5 g/dL (12.0-16.0) L [facility] [place] [facility] HCT 23.5 % (36.0-47.0) L [facility] [place] [facility] MCV 85.2 fL (80.0-95.0) [facility] [place] [facility] MCH 27.3 pg (27.0-32.0) [facility] [place] [facility] MCHC 32.0 g/dL (32.0-36.0) [facility] [place] [facility] RDW 18.8 % (10.5-14.5) H [facility] [place] [facility] PLT 557 10*3/uL (150-450) H [facility] [place] [facility] MPV 8.2 fL (7.1-10.7) [facility] [place] [facility] ID Date Data Source [id number] 11/26/2020 05:49:15 AM EST [facility] [place] [facility] Name Value Range Interpretation Code Description Data Tere rce(s) Supporting Document(s) POC GLUCOSE 219 mg/dL (70-99) H [facility] [place] [facility] PERFORMED BY CLINICAL STAFF ID Date Data Source [id number] 11/25/2020 08:59:29 PM EST [facility] [place] [facility] Name Value Range Interpretation Code Description Data Tere rce(s) Supporting Document(s) POC GLUCOSE 150 mg/dL (70-99) H [facility] [place] [facility] PERFORMED BY CLINICAL STAFF ID Date Data Source [id number] 11/25/2020 05:07:35 PM EST [facility] [place] [facility] Name Value Range Interpretation Code Description Data Tere rce(s) Supporting Document(s) POC GLUCOSE 82 mg/dL (70-99) [facility] [place] [facility] PERFORMED BY CLINICAL STAFF ID Date Data Source [id number] 11/25/2020 01:32:34 PM EST [facility] [place] [facility] Name Value Range Interpretation Code Description Data Tere rce(s) Supporting Document(s) POC GLUCOSE 238 mg/dL (70-99) H [facility] [place] [facility] NOTIFIED NURSEPERFORMED BY CLINICAL S TAFF ID Date Data Source [id number] 11/25/2020 09:07:57 AM EST [facility] [place] [facility] Name Value Range Interpretation Code Description Data Tere rce(s) Supporting Document(s) POC GLUCOSE 217 mg/dL (70-99) H [facility] [place] [facility] NOTIFIED NURSEPERFORMED BY CLINICAL S TAFF ID Date Data Source [id number] 11/25/2020 07:28:44 AM EST [facility] [place] [facility] Name Value Range Interpretation Code Description Data Tere rce(s) Supporting Document(s) POC GLUCOSE 228 mg/dL (70-99) H [facility] [place] [facility] PERFORMED BY CLINICAL STAFF ID Date Data Source [id number] 11/25/2020 08:40:12 AM EST [facility] [place] [facility] Name Value Range Interpretation Code Description Data Tere rce(s) Supporting Document(s) SODIUM 137 mmol/L (136-145) [facility] [place] [facility] POTASSIUM 4.2 mmol/L (3.6-5.2) [facility] [place] [facility] CHLORIDE 103 mmol/L (100-108) [facility] [place] [facility] CO2 23 mmol/L (22-31) [facility] [place] [facility] ANION GAP 11 mmol/L (7-16) [facility] [place] [facility] UREA NITROGEN 7 mg/dL (7-24) [facility] [place] [facility] CREATININE 0.59 mg/dL (0.60-1.00) L [facility] [place] [facility] BUN/CREAT RATIO 11.9 RATIO (10.0-20.0) [facility] GLUCOSE 242 mg/dL (70-99) H [facility] [place] [facility] CALCIUM 8.1 mg/dL (8.4-10.2) L [facility] [place] [facility] GFR >60 ml/min/1.73m2 (>59) [facility] [place] [facility] GFR ( AMER) >60 ml/min/1.73m2 (>59) [facility] [place] [facility] GFR INTERPRETATION [facility] --NORMAL KIDNEY FUNCTION OR MILD DISEASE - GFR >OR= 60CHRONIC KIDNEY DISEASE - GFR 15 - 59RENAL FAILURE - GFR <15 Est. GFR calculation based on the MDRDstudy equation, which assumes a steadystate for creatinine. Est. GFR should notbe used for medication dosing. ID Date Data Source [id number] 11/25/2020 07:53:36 AM EST [facility] [place] [facility] Name Value Range Interpretation Code Description Data Tere rce(s) Supporting Document(s) WBC 8.5 10*3/uL (4.1-11.0) [facility] [place] [facility] [place] RBC 2.56 10*6/uL (4.00-5.40) L [facility] [place] [facility] HGB 7.2 g/dL (12.0-16.0) L [facility] [place] [facility] HCT 22.4 % (36.0-47.0) L [facility] [place] [facility] MCV 87.7 fL (80.0-95.0) [facility] [place] [facility] MCH 28.1 pg (27.0-32.0) [facility] [place] [facility] MCHC 32.0 g/dL (32.0-36.0) [facility] [place] [facility] RDW 18.5 % (10.5-14.5) H [facility] [place] [facility] PLT 530 10*3/uL (150-450) H [facility] [place] [facility] MPV 8.6 fL (7.1-10.7) [facility] [place] [facility] ID Date Data Source [id number] 11/25/2020 08:40:12 AM EST [facility] [place] [facility] Name Value Range Interpretation Code Description Data Tere rce(s) Supporting Document(s) VANCOMYCIN TROUGH 11.1 ug/mL (10.0-20.0) [facility] ID Date Data Source [id number] 11/25/2020 02:30:36 AM EST [facility] [place] [facility] Name Value Range Interpretation Code Description Data Tere rce(s) Supporting Document(s) POC GLUCOSE 202 mg/dL (70-99) H [facility] [place] [facility] NOTIFIED NURSEPERFORMED BY CLINICAL S TAFF ID Date Data Source [id number] 11/24/2020 11:08:59 PM EST [facility] [place] [facility] Name Value Range Interpretation Code Description Data Tere rce(s) Supporting Document(s) POC GLUCOSE 88 mg/dL (70-99) [facility] [place] [facility] NOTIFIED NURSEPERFORMED BY CLINICAL S TAFF ID Date Data Source [id number] 11/24/2020 11:08:59 PM EST [facility] [place] [facility] Name Value Range Interpretation Code Description Data Tere rce(s) Supporting Document(s) POC GLUCOSE 66 mg/dL (70-99) L [facility] [place] [facility] NOTIFIED NURSEPERFORMED BY CLINICAL S TAFF ID Date Data Source [id number] 11/24/2020 05:19:35 PM EST [facility] [place] [facility] Name Value Range Interpretation Code Description Data Tere rce(s) Supporting Document(s) POC GLUCOSE 158 mg/dL (70-99) H [facility] [place] [facility] PERFORMED BY CLINICAL STAFF ID Date Data Source [id number] 11/25/2020 07:48:00 AM EST [facility] [id number] [place], [place] [address]E[place] NAME: GERALD MESA OF : 1975REPORT: OPERATIONPATIENT NUMBER: [id number] STATUS: IPMEDICAL RECORD NUMBER: [id number] OF ADMISSION: 11/06/2020DATE OF DISCHARGE:ROOM: 02DATE OF [...] was applied, the patient was brought to [facility] in stable condition. I was present for the entire case and performedall critical aspects of the surgery.DICTATED BY: FELICITA Mcguireictated: 11/24/2020 12:47DT: 11/24/2020 12:55Job #: [id number]: [facility] computer generated reports are not confirmed orauthenticated unless they are signed by the providerElectronically Authenticated by:ELÍAS GORDON MD On 11/25/2020 07:48 AM EST Name Value Range Interpretation Code Description Data Tere rce(s) Supporting Document(s) ID Date Data Source [id number] 11/24/2020 12:57:38 PM EST [facility] [place] [facility] Name Value Range Interpretation Code Description Data Tere rce(s) Supporting Document(s) POC GLUCOSE 107 mg/dL (70-99) H [facility] [place] [facility] NOTIFIED PROVIDERNOTIFIED NURSEPERFORMED BY CLINICAL STAFF ID Date Data Source [id number] 11/24/2020 05:03:18 PM EST [facility] [place] [facility] SPECIMEN DESCRIPTION SITE LUMBA WOUNDSPECIAL REQUESTS NONECULTURE RESULTS SPECIMEN IMPROPERLY COLLECTED. RED TOP SWAB WITH NO GEL WAS RECEIVED. REPORT STATUS FINAL 11/24/2020 Name Value Range Interpretation Code Description Data Tere rce(s) Supporting Document(s) ID Date Data Source [id number] 11/27/2020 08:46:13 AM EST [facility] [place] [facility] [place] SPECIMEN DESCRIPTION SITE LUMBAU WOUNDSPECIAL REQUESTS NONECULTURE RESULTS NO ANAEROBES ISOLATEDREPORT STATUS FINAL 11/27/2020 Name Value Range Interpretation Code Description Data Tere rce(s) Supporting Document(s) ID Date Data Source [id number] 11/26/2020 08:52:32 AM EST [facility] [place] [facility] [place] SPECIMEN DESCRIPTION SITE LUMBAU WOUNDSPECIAL [...] rce(s) Supporting Document(s) ID Date Data Source [id number] 11/26/2020 08:37:27 AM EST [facility] [place] [facility] CONNELL[facility] SPECIMEN DESCRIPTION SITE LUMBA WOUNDSPECIAL [...] rce(s) Supporting Document(s) ID Date Data Source [id number] 11/24/2020 11:20:27 AM EST [facility] [place] [facility] [place] Name Value Range Interpretation Code Description Data Tere rce(s) Supporting Document(s) POC GLUCOSE 204 mg/dL (70-99) H [facility] [place] [facility] Y PERFORMED BY CLINICAL STAFF ID Date Data Source [id number] 11/24/2020 10:04:18 AM EST [facility] [place] [facility] CONNELLYMariah Name Value Range Interpretation Code Description Data Tere rce(s) Supporting Document(s) WBC 7.5 10*3/uL (4.1-11.0) [facility] [place] [facility] [place] RBC 2.60 10*6/uL (4.00-5.40) L [facility] [place] [facility] [place] HGB 7.4 g/dL (12.0-16.0) L [facility] [place] [facility] HCT 22.8 % (36.0-47.0) L [facility] [place] [facility] MCV 87.7 fL (80.0-95.0) [facility] [place] [facility] MCH 28.4 pg (27.0-32.0) [facility] [place] [facility] MCHC 32.4 g/dL (32.0-36.0) [facility] [place] [facility] RDW 18.7 % (10.5-14.5) H [facility] [place] [facility] PLT 514 10*3/uL (150-450) H [facility] [place] [facility] MPV 8.3 fL (7.1-10.7) [facility] [place] [facility] NEUT % 67.9 % (35.0-75.0) [facility] [place] [facility] LYMPH % 10.5 % (16.0-52.0) L [facility] [place] [facility] MONO % 11.9 % (0.0-8.0) H [facility] [place] [facility] EOS % 8.3 % (0.0-5.0) H [facility] [place] [facility] BASO % 1.4 % (0.0-4.0) [facility] [place] [facility] NEUT # 5.1 10*3/uL (1.8-7.7) [facility] [place] [facility] LYMPH # 0.8 10*3/uL (1.2-4.8) L [facility] [place] [facility] MONO # 0.9 10*3/uL (0.0-0.8) H [facility] [place] [facility] Eosinophils [#/volume] in Blood by Automated count 0.6 10*3/uL (0.0-0 .5) H [facility] [place] [facility] BASO # 0.1 10*3/uL (0.0-0.2) [facility] [place] [facility] ID Date Data Source [id number] 11/24/2020 09:41:20 AM EST [facility] [place] [facility] Name Value Range Interpretation Code Description Data Tere rce(s) Supporting Document(s) SODIUM 137 mmol/L (136-145) [facility] [place] [facility] POTASSIUM 4.2 mmol/L (3.6-5.2) [facility] [place] [facility] CHLORIDE 101 mmol/L (100-108) [facility] [place] [facility] CO2 27 mmol/L (22-31) [facility] [place] [facility] ANION GAP 9 mmol/L (7-16) [facility] [place] [facility] UREA NITROGEN 9 mg/dL (7-24) [facility] [place] [facility] CREATININE 0.62 mg/dL (0.60-1.00) [facility] [place] [facility] BUN/CREAT RATIO 14.5 RATIO (10.0-20.0) [facility] GLUCOSE 203 mg/dL (70-99) H [facility] [place] [facility] CALCIUM 8.4 mg/dL (8.4-10.2) [facility] [place] [facility] GFR >60 ml/min/1.73m2 (>59) [facility] [place] [facility] GFR ( AMER) >60 ml/min/1.73m2 (>59) [facility] [place] [facility] GFR INTERPRETATION [facility] --NORMAL KIDNEY FUNCTION OR MILD DISEASE - GFR >OR= 60CHRONIC KIDNEY DISEASE - GFR 15 - 59RENAL FAILURE - GFR <15 Est. GFR calculation based on the MDRDstudy equation, which assumes a steadystate for creatinine. Est. GFR should notbe used for medication dosing. ID Date Data Source [id number] 11/24/2020 08:14:41 AM EST [facility] [place] [facility] [place] Name Value Range Interpretation Code Description Data Tere rce(s) Supporting Document(s) POC GLUCOSE 205 mg/dL (70-99) H [facility] [place] [facility] PERFORMED BY CLINICAL STAFF ID Date Data Source [id number] 11/24/2020 02:53:23 AM EST [facility] [place] [facility] Name Value Range Interpretation Code Description Data Tere rce(s) Supporting Document(s) POC GLUCOSE 176 mg/dL (70-99) H [facility] [place] [facility] NOTIFIED NURSEPERFORMED BY CLINICAL S TAFF ID Date Data Source [id number] 11/24/2020 01:24:00 AM EST [facility] [place] [facility] Name Value Range Interpretation Code Description Data Tere rce(s) Supporting Document(s) POC GLUCOSE 157 mg/dL (70-99) H [facility] [place] [facility] Y PERFORMED BY CLINICAL STAFF ID Date Data Source [id number] 11/23/2020 06:32:12 PM EST [facility] [place] [facility] [place] Name Value Range Interpretation Code Description Data Tere rce(s) Supporting Document(s) POC GLUCOSE 90 mg/dL (70-99) [facility] [place] [facility] PERFORMED BY CLINICAL STAFF ID Date Data Source [id number] 11/29/2020 12:17:34 PM EST [facility] [place] [facility] [place] SPECIMEN DESCRIPTION PERIPHERALSP ECIAL REQUESTS NONECULTURE RESULTS NO GROWTH 6 DAYSREPORT STATUS FINAL 11/29/2020 Name Value Range Interpretation Code Description Data Tere rce(s) Supporting Document(s) ID Date Data Source [id number] 11/29/2020 12:17:34 PM EST [facility] [place] [facility] [place] SPECIMEN DESCRIPTION PERIPHERALSP ECIAL REQUESTS NONECULTURE RESULTS NO GROWTH 6 DAYSREPORT STATUS FINAL 11/29/2020 Name Value Range Interpretation Code Description Data Tere rce(s) Supporting Document(s) ID Date Data Source [id number] 11/23/2020 12:47:04 PM EST [facility] [place] [facility] [place] Name Value Range Interpretation Code Description Data Tere rce(s) Supporting Document(s) POC GLUCOSE 210 mg/dL (70-99) H [facility] [place] [facility] NOTIFIED NURSEPERFORMED BY CLINICAL S TAFF ID Date Data Source [id number] 11/25/2020 09:56:14 AM EST [facility] [place] [facility] [place] SPECIMEN DESCRIPTION SURGICAL WOU NDSPECIAL [...] rce(s) Supporting Document(s) ID Date Data Source [id number] 11/25/2020 08:52:52 AM EST [facility] [place] [facility] SPECIMEN DESCRIPTION SURGICAL WOU NDSPECIAL [...] rce(s) Supporting Document(s) ID Date Data Source [id number] 11/23/2020 08:55:41 AM EST [facility] [place] [facility] Name Value Range Interpretation Code Description Data Tere rce(s) Supporting Document(s) POC GLUCOSE 285 mg/dL (70-99) H [facility] [place] [facility] NOTIFIED NURSEPERFORMED BY CLINICAL S TAFF ID Date Data Source [id number] 11/23/2020 10:24:41 AM EST [facility] [place] [facility] Name Value Range Interpretation Code Description Data Tere rce(s) Supporting Document(s) SODIUM 133 mmol/L (136-145) L [facility] [place] [facility] POTASSIUM 4.4 mmol/L (3.6-5.2) [facility] [place] [facility] CHLORIDE 98 mmol/L (100-108) L [facility] [place] [facility] CO2 24 mmol/L (22-31) [facility] [place] [facility] ANION GAP 11 mmol/L (7-16) [facility] [place] [facility] UREA NITROGEN 9 mg/dL (7-24) [facility] [place] [facility] CREATININE 0.58 mg/dL (0.60-1.00) L [facility] [place] [facility] BUN/CREAT RATIO 15.5 RATIO (10.0-20.0) [facility] GLUCOSE 263 mg/dL (70-99) H [facility] [place] [facility] CALCIUM 8.8 mg/dL (8.4-10.2) [facility] [place] [facility] GFR >60 ml/min/1.73m2 (>59) [facility] [place] [facility] GFR ( AMER) >60 ml/min/1.73m2 (>59) [facility] [place] [facility] GFR INTERPRETATION [facility] --NORMAL KIDNEY FUNCTION OR MILD DISEASE - GFR >OR= 60CHRONIC KIDNEY DISEASE - GFR 15 - 59RENAL FAILURE - GFR <15 Est. GFR calculation based on the MDRDstudy equation, which assumes a steadystate for creatinine. Est. GFR should notbe used for medication dosing. ID Date Data Source [id number] 11/23/2020 09:58:36 AM EST [facility] [place] [facility] Name Value Range Interpretation Code Description Data Tere rce(s) Supporting Document(s) WBC 11.8 10*3/uL (4.1-11.0) H [facility] [place] [facility] RBC 2.84 10*6/uL (4.00-5.40) L [facility] [place] [facility] HGB 7.6 g/dL (12.0-16.0) L [facility] [place] [facility] HCT 24.5 % (36.0-47.0) L [facility] [place] [facility] MCV 86.1 fL (80.0-95.0) [facility] [place] [facility] MCH 26.9 pg (27.0-32.0) L [facility] [place] [facility] MCHC 31.2 g/dL (32.0-36.0) L [facility] [place] [facility] RDW 19.1 % (10.5-14.5) H [facility] [place] [facility] PLT 534 10*3/uL (150-450) H [facility] [place] [facility] MPV 8.8 fL (7.1-10.7) [facility] [place] [facility] ID Date Data Source [id number] 11/23/2020 03:22:59 AM EST [facility] [place] [facility] Name Value Range Interpretation Code Description Data Tere rce(s) Supporting Document(s) POC GLUCOSE 194 mg/dL (70-99) H [facility] [place] [facility] PERFORMED BY CLINICAL STAFF ID Date Data Source [id number] 11/22/2020 11:24:14 PM EST [facility] [place] [facility] Name Value Range Interpretation Code Description Data Tere rce(s) Supporting Document(s) POC GLUCOSE 156 mg/dL (70-99) H [facility] [place] [facility] NOTIFIED NURSEPERFORMED BY CLINICAL S TAFF ID Date Data Source [id number] 11/22/2020 11:24:14 PM EST [facility] [place] [facility] Name Value Range Interpretation Code Description Data Tere rce(s) Supporting Document(s) POC GLUCOSE 132 mg/dL (70-99) H [facility] [place] [facility] NOTIFIED NURSEPERFORMED BY CLINICAL S TAFF ID Date Data Source [id number] 11/22/2020 10:02:20 PM EST [facility] [place] [facility] Name Value Range Interpretation Code Description Data Tere rce(s) Supporting Document(s) POC GLUCOSE 66 mg/dL (70-99) L [facility] [place] [facility] NOTIFIED NURSEPERFORMED BY CLINICAL S TAFF ID Date Data Source [id number] 11/22/2020 06:13:03 PM EST [facility] [place] [facility] Name Value Range Interpretation Code Description Data Tere rce(s) Supporting Document(s) POC GLUCOSE 75 mg/dL (70-99) [facility] [place] [facility] NOTIFIED NURSEPERFORMED BY CLINICAL S TAFF ID Date Data Source [id number] 11/22/2020 12:26:06 PM EST [facility] [place] [facility] Name Value Range Interpretation Code Description Data Tere rce(s) Supporting Document(s) POC GLUCOSE 292 mg/dL (70-99) H [facility] [place] [facility] NOTIFIED NURSEPERFORMED BY CLINICAL S TAFF ID Date Data Source [id number] 11/22/2020 11:49:13 AM EST [facility] [place] [facility] Name Value Range Interpretation Code Description Data Tere rce(s) Supporting Document(s) PHOSPHORUS 3.3 mg/dL (2.5-4.5) [facility] [place] [facility] ID Date Data Source [id number] 11/22/2020 11:49:13 AM EST [facility] [place] [facility] Name Value Range Interpretation Code Description Data Tere rce(s) Supporting Document(s) SODIUM 131 mmol/L (136-145) L [facility] [place] [facility] POTASSIUM 4.0 mmol/L (3.6-5.2) [facility] [place] [facility] CHLORIDE 97 mmol/L (100-108) L [facility] [place] [facility] CO2 25 mmol/L (22-31) [facility] [place] [facility] ANION GAP 9 mmol/L (7-16) [facility] [place] [facility] UREA NITROGEN 11 mg/dL (7-24) [facility] [place] [facility] CREATININE 0.65 mg/dL (0.60-1.00) [facility] [place] [facility] BUN/CREAT RATIO 16.9 RATIO (10.0-20.0) [facility] GLUCOSE 363 mg/dL (70-99) H [facility] [place] [facility] CALCIUM 8.1 mg/dL (8.4-10.2) L [facility] [place] [facility] TOTAL PROTEIN 6.9 g/dL (6.4-8.2) [facility] [place] [facility] ALBUMIN 2.4 g/dL (3.5-4.6) L [facility] [place] [facility] GLOBULIN 4.5 g/dL (2.7-4.3) H [facility] [place] [facility] ALB/GLOB RATIO 0.5 RATIO [facility] [place] [facility] ALKALINE PHOSPHATASE 105 U/L (45-117) [facility] BILIRUBIN,TOTAL 0.4 mg/dL (0.0-1.0) [facility] [place] [facility] PLEASE NOTE:Total bilirubin results may be falselyelevated in patients taking Eltrombopag. AST (SGOT) 12 U/L (11-39) [facility] [place] [facility] ALT (SGPT) 11 U/L (12-78) L [facility] [place] [facility] GFR >60 ml/min/1.73m2 (>59) [facility] [place] [facility] GFR ( AMER) >60 ml/min/1.73m2 (>59) [facility] [place] [facility] GFR INTERPRETATION [facility] --NORMAL KIDNEY FUNCTION OR MILD DISEASE - GFR >OR= 60CHRONIC KIDNEY DISEASE - GFR 15 - 59RENAL FAILURE - GFR <15 Est. GFR calculation based on the MDRDstudy equation, which assumes a steadystate for creatinine. Est. GFR should notbe used for medication dosing. ID Date Data Source [id number] 11/22/2020 11:49:13 AM EST [facility] [place] [facility] Name Value Range Interpretation Code Description Data Tere rce(s) Supporting Document(s) MAGNESIUM 2.0 mg/dL (1.7-2.4) [facility] [place] [facility] ID Date Data Source [id number] 11/22/2020 11:23:02 AM EST [facility] Name Value Range Interpretation Code Description Data Tere rce(s) Supporting Document(s) WBC 15.3 10*3/uL (4.1-11.0) H [facility] [place] [facility] RBC 2.91 10*6/uL (4.00-5.40) L [facility] [place] [facility] HGB 8.0 g/dL (12.0-16.0) [facility] HCT 25.3 % (36.0-47.0) [facility] MCV 86.8 fL (80.0-95.0) [facility] MCH 27.6 pg (27.0-32.0) [facility] MCHC 31.8 g/dL (32.0-36.0) [facility] RDW 19.0 % (10.5-14.5) [facility] PLT 525 10*3/uL (150-450) [facility] MPV 8.1 fL (7.1-10.7) [facility] ID Date Data Source [id number] 11/22/2020 08:44:17 AM EST [facility] Name Value Range Interpretation Code Description Data Tere rce(s) Supporting Document(s) POC GLUCOSE 166 mg/dL (70-99) [facility] PERFORMED BY CLINICAL STAFF ID Date Data Source [id number] 11/22/2020 03:23:51 AM EST [facility] Name Value Range Interpretation Code Description Data Tere rce(s) Supporting Document(s) POC GLUCOSE 197 mg/dL (70-99) [facility] PERFORMED BY CLINICAL STAFF ID Date Data Source [id number] 11/22/2020 12:18:28 AM EST [facility] Name Value Range Interpretation Code Description Data Tere rce(s) Supporting Document(s) POC GLUCOSE 137 mg/dL (70-99) [facility] PERFORMED BY CLINICAL STAFF ID Date Data Source [id number] 11/21/2020 11:42:57 PM EST [facility] Name Value Range Interpretation Code Description Data Tere rce(s) Supporting Document(s) POC GLUCOSE 115 mg/dL (70-99) [facility] PERFORMED BY CLINICAL STAFF ID Date Data Source [id number] 11/21/2020 11:42:52 PM EST [facility] Name Value Range Interpretation Code Description Data Tere rce(s) Supporting Document(s) POC GLUCOSE 66 mg/dL (70-99) [facility] PERFORMED BY CLINICAL STAFF ID Date Data Source [id number] 11/21/2020 05:38:59 PM EST [facility] Name Value Range Interpretation Code Description Data Tere rce(s) Supporting Document(s) POC GLUCOSE 212 mg/dL (70-99) [facility] PERFORMED BY CLINICAL STAFF ID Date Data Source [id number] 11/21/2020 12:28:48 PM EST [facility] Name Value Range Interpretation Code Description Data Tere rce(s) Supporting Document(s) POC GLUCOSE 300 mg/dL (70-99) [facility] NOTIFIED NURSEPERFORMED BY CLINICAL S TAFF ID Date Data Source [id number] 11/21/2020 08:20:06 AM EST [facility] Name Value Range Interpretation Code Description Data Tere rce(s) Supporting Document(s) POC GLUCOSE 147 mg/dL (70-99) [facility] NOTIFIED NURSEPERFORMED BY CLINICAL S TAFF ID Date Data Source [id number] 11/21/2020 03:11:08 AM EST [facility] Name Value Range Interpretation Code Description Data Tere rce(s) Supporting Document(s) POC GLUCOSE 172 mg/dL (70-99) [facility] PERFORMED BY CLINICAL STAFF ID Date Data Source [id number] 11/20/2020 10:10:12 PM EST [facility] Name Value Range Interpretation Code Description Data Tere rce(s) Supporting Document(s) POC GLUCOSE 177 mg/dL (70-99) [facility] PERFORMED BY CLINICAL STAFF ID Date Data Source [id number] 11/20/2020 05:31:54 PM EST [facility] Name Value Range Interpretation Code Description Data Tere rce(s) Supporting Document(s) POC GLUCOSE 91 mg/dL (70-99) [facility] PERFORMED BY CLINICAL STAFF ID Date Data Source [id number] 11/20/2020 12:30:00 PM EST [facility] Name Value Range Interpretation Code Description Data Tere rce(s) Supporting Document(s) POC GLUCOSE 313 mg/dL (70-99) [facility] PERFORMED BY CLINICAL STAFF ID Date Data Source [id number] 11/20/2020 09:09:54 AM EST [facility] Name Value Range Interpretation Code Description Data Tere rce(s) Supporting Document(s) POC GLUCOSE 131 mg/dL (70-99) [facility] NOTIFIED NURSEPERFORMED BY CLINICAL S TAFF ID Date Data Source [id number] 11/20/2020 02:45:31 AM EST [facility] Name Value Range Interpretation Code Description Data Tere rce(s) Supporting Document(s) POC GLUCOSE 130 mg/dL (70-99) [facility] NOTIFIED NURSEPERFORMED BY CLINICAL S TAFF ID Date Data Source [id number] 11/19/2020 11:08:05 PM EST [facility] Name Value Range Interpretation Code Description Data Tere rce(s) Supporting Document(s) POC GLUCOSE 131 mg/dL (70-99) [facility] PERFORMED BY CLINICAL STAFF ID Date Data Source [id number] 11/19/2020 10:19:26 PM EST [facility] Name Value Range Interpretation Code Description Data Tere rce(s) Supporting Document(s) POC GLUCOSE 155 mg/dL (70-99) [facility] NOTIFIED NURSEPERFORMED BY CLINICAL S TAFF ID Date Data Source [id number] 11/19/2020 10:19:26 PM EST [facility] Name Value Range Interpretation Code Description Data Tere rce(s) Supporting Document(s) POC GLUCOSE 66 mg/dL (70-99) [facility] NOTIFIED NURSEPERFORMED BY CLINICAL S TAFF ID Date Data Source [id number] 11/19/2020 05:20:41 PM EST [facility] Name Value Range Interpretation Code Description Data Tere rce(s) Supporting Document(s) POC GLUCOSE 97 mg/dL (70-99) [facility] PERFORMED BY CLINICAL STAFF ID Date Data Source [id number] 11/19/2020 11:19:00 AM EST [facility] Name Value Range Interpretation Code Description Data Tere rce(s) Supporting Document(s) POC GLUCOSE 210 mg/dL (70-99) [facility] NOTIFIED NURSEPERFORMED BY CLINICAL S TAFF ID Date Data Source [id number] 11/19/2020 08:04:54 AM EST [facility] Name Value Range Interpretation Code Description Data Tere rce(s) Supporting Document(s) POC GLUCOSE 167 mg/dL (70-99) [facility] NOTIFIED NURSEPERFORMED BY CLINICAL S TAFF ID Date Data Source [id number] 11/19/2020 03:09:15 AM EST [facility] Name Value Range Interpretation Code Description Data Tere rce(s) Supporting Document(s) POC GLUCOSE 144 mg/dL (70-99) [facility] PERFORMED BY CLINICAL STAFF ID Date Data Source [id number] 11/18/2020 10:11:50 PM EST [facility] Name Value Range Interpretation Code Description Data Tere rce(s) Supporting Document(s) GLUCOSE 450 mg/dL (70-99) [facility] RESULT(S) CALLED TO AND READ BACK BYTRAC Y 4MEM ON 11/18/2020 AT 2210 [place] [id number] ID Date Data Source [id number] 11/18/2020 09:40:49 PM EST [facility] Name Value Range Interpretation Code Description Data Tere rce(s) Supporting Document(s) POC GLUCOSE 468 mg/dL (70-99) [facility] PERFORMED BY CLINICAL STAFF ID Date Data Source [id number] 11/18/2020 07:03:42 PM EST [facility] Name Value Range Interpretation Code Description Data Tere rce(s) Supporting Document(s) POC GLUCOSE 355 mg/dL (70-99) [facility] PERFORMED BY CLINICAL STAFF ID Date Data Source [id number] 11/18/2020 05:30:25 PM EST [facility] Name Value Range Interpretation Code Description Data Tere rce(s) Supporting Document(s) POC GLUCOSE 436 mg/dL (70-99) [facility] NOTIFIED NURSEPERFORMED BY CLINICAL S TAFF ID Date Data Source [id number] 11/18/2020 04:22:32 PM EST [facility] Name Value Range Interpretation Code Description Data Tere rce(s) Supporting Document(s) POC GLUCOSE 450 mg/dL (70-99) [facility] PERFORMED BY CLINICAL STAFF ID Date Data Source [id number] 11/18/2020 12:41:06 PM EST [facility] Name Value Range Interpretation Code Description Data Tere rce(s) Supporting Document(s) POC GLUCOSE 397 mg/dL (70-99) [facility] PERFORMED BY CLINICAL STAFF ID Date Data Source [id number] 11/18/2020 08:01:04 AM EST [facility] Name Value Range Interpretation Code Description Data Tere rce(s) Supporting Document(s) POC GLUCOSE 240 mg/dL (70-99) [facility] NOTIFIED NURSEPERFORMED BY CLINICAL S TAFF ID Date Data Source [id number] 11/18/2020 02:43:41 AM EST [facility] Name Value Range Interpretation Code Description Data Tere rce(s) Supporting Document(s) POC GLUCOSE 218 mg/dL (70-99) [facility] PERFORMED BY CLINICAL STAFF ID Date Data Source [id number] 11/17/2020 10:14:11 PM EST [facility] Name Value Range Interpretation Code Description Data Tere rce(s) Supporting Document(s) POC GLUCOSE 102 mg/dL (70-99) [facility] PERFORMED BY CLINICAL STAFF ID Date Data Source [id number] 11/17/2020 05:48:02 PM EST [facility] Name Value Range Interpretation Code Description Data Tere rce(s) Supporting Document(s) POC GLUCOSE 142 mg/dL (70-99) [facility] PERFORMED BY CLINICAL STAFF ID Date Data Source [id number] 11/17/2020 12:40:43 PM EST [facility] Name Value Range Interpretation Code Description Data Tere rce(s) Supporting Document(s) POC GLUCOSE 112 mg/dL (70-99) [facility] PERFORMED BY CLINICAL STAFF ID Date Data Source [id number] 11/17/2020 09:34:03 AM EST [facility] Name Value Range Interpretation Code Description Data Tere rce(s) Supporting Document(s) POC GLUCOSE 229 mg/dL (70-99) [facility] PERFORMED BY CLINICAL STAFF ID Date Data Source [id number] 11/17/2020 02:52:16 AM EST [facility] Name Value Range Interpretation Code Description Data Tere rce(s) Supporting Document(s) POC GLUCOSE 230 mg/dL (70-99) [facility] PERFORMED BY CLINICAL STAFF ID Date Data Source [id number] 11/16/2020 09:33:11 PM EST [facility] Name Value Range Interpretation Code Description Data Tere rce(s) Supporting Document(s) POC GLUCOSE 249 mg/dL (70-99) [facility] NOTIFIED NURSEPERFORMED BY CLINICAL S TAFF ID Date Data Source [id number] 11/16/2020 07:49:51 PM EST [facility] Name Value Range Interpretation Code Description Data Tere rce(s) Supporting Document(s) POC GLUCOSE 182 mg/dL (70-99) [facility] PERFORMED BY CLINICAL STAFF ID Date Data Source [id number] 11/16/2020 06:20:39 PM EST [facility] Name Value Range Interpretation Code Description Data Tere rce(s) Supporting Document(s) POC GLUCOSE 77 mg/dL (70-99) [facility] PERFORMED BY CLINICAL STAFF ID Date Data Source [id number] 11/16/2020 05:42:52 PM EST [facility] Name Value Range Interpretation Code Description Data Tere rce(s) Supporting Document(s) POC GLUCOSE 60 mg/dL (70-99) [facility] PERFORMED BY CLINICAL STAFF ID Date Data Source [id number] 11/16/2020 05:42:52 PM EST [facility] Name Value Range Interpretation Code Description Data Tere rce(s) Supporting Document(s) POC GLUCOSE 32 mg/dL (70-99) [facility] PERFORMED BY CLINICAL STAFF ID Date Data Source [id number] 11/16/2020 03:09:09 PM EST [facility] Name Value Range Interpretation Code Description Data Tere rce(s) Supporting Document(s) POC GLUCOSE 103 mg/dL (70-99) [facility] PERFORMED BY CLINICAL STAFF ID Date Data Source [id number] 11/16/2020 04:18:16 PM EST [facility] Name Value Range Interpretation Code Description Data Tere rce(s) Supporting Document(s) SODIUM 132 mmol/L (136-145) [facility] POTASSIUM 4.9 mmol/L (3.6-5.2) [facility] CHLORIDE 97 mmol/L (100-108) [facility] CO2 33 mmol/L (22-31) [facility] ANION GAP 2 mmol/L (7-16) [facility] UREA NITROGEN 14 mg/dL (7-24) [facility] CREATININE 0.75 mg/dL (0.60-1.00) [facility] BUN/CREAT RATIO 18.7 RATIO (10.0-20.0) [facility] GLUCOSE 123 mg/dL (70-99) [facility] CALCIUM 8.5 mg/dL (8.4-10.2) [facility] GFR >60 ml/min/1.73m2 (>59) [facility] GFR ( AMER) >60 ml/min/1.73m2 (>59) [facility] GFR INTERPRETATION [facility] --NORMAL KIDNEY FUNCTION OR MILD DISEASE - GFR >OR= 60CHRONIC KIDNEY DISEASE - GFR 15 - 59RENAL FAILURE - GFR <15 Est. GFR calculation based on the MDRDstudy equation, which assumes a steadystate for creatinine. Est. GFR should notbe used for medication dosing. ID Date Data Source [id number] 11/16/2020 03:49:50 PM EST [facility] Name Value Range Interpretation Code Description Data Tere rce(s) Supporting Document(s) WBC 7.9 10*3/uL (4.1-11.0) [facility] RBC 2.73 10*6/uL (4.00-5.40) [facility] HGB 8.0 g/dL (12.0-16.0) [facility] HCT 24.6 % (36.0-47.0) [facility] MCV 90.1 fL (80.0-95.0) [facility] MCH 29.4 pg (27.0-32.0) [facility] MCHC 32.7 g/dL (32.0-36.0) [facility] RDW 19.3 % (10.5-14.5) [facility] PLT 454 10*3/uL (150-450) [facility] MPV 8.3 fL (7.1-10.7) [facility] ID Date Data Source [id number] 11/16/2020 12:41:09 PM EST [facility] Name Value Range Interpretation Code Description Data Tere rce(s) Supporting Document(s) POC GLUCOSE 181 mg/dL (70-99) [facility] PERFORMED BY CLINICAL STAFF ID Date Data Source [id number] 11/16/2020 09:38:35 AM EST [facility] Name Value Range Interpretation Code Description Data Tere rce(s) Supporting Document(s) POC GLUCOSE 185 mg/dL (70-99) [facility] PERFORMED BY CLINICAL STAFF ID Date Data Source [id number] 11/16/2020 03:16:59 AM EST [facility] Name Value Range Interpretation Code Description Data Tere rce(s) Supporting Document(s) POC GLUCOSE 128 mg/dL (70-99) [facility] NOTIFIED NURSEPERFORMED BY CLINICAL S TAFF ID Date Data Source [id number] 11/15/2020 08:55:21 PM EST [facility] Name Value Range Interpretation Code Description Data Tere rce(s) Supporting Document(s) POC GLUCOSE 188 mg/dL (70-99) [facility] NOTIFIED NURSEPERFORMED BY CLINICAL S TAFF ID Date Data Source [id number] 11/15/2020 04:46:00 PM EST [facility] Name Value Range Interpretation Code Description Data Tere rce(s) Supporting Document(s) POC GLUCOSE 115 mg/dL (70-99) [facility] PERFORMED BY CLINICAL STAFF ID Date Data Source [id number] 11/15/2020 12:41:44 PM EST [facility] Name Value Range Interpretation Code Description Data Tere rce(s) Supporting Document(s) POC GLUCOSE 199 mg/dL (70-99) [facility] NOTIFIED NURSEPERFORMED BY CLINICAL S TAFF ID Date Data Source [id number] 11/15/2020 08:09:49 AM EST [facility] Name Value Range Interpretation Code Description Data Tere rce(s) Supporting Document(s) POC GLUCOSE 167 mg/dL (70-99) [facility] NOTIFIED NURSEPERFORMED BY CLINICAL S TAFF ID Date Data Source [id number] 11/15/2020 03:13:29 AM EST [facility] Name Value Range Interpretation Code Description Data Tere rce(s) Supporting Document(s) POC GLUCOSE 204 mg/dL (70-99) [facility] NOTIFIED NURSEPERFORMED BY CLINICAL S TAFF ID Date Data Source [id number] 11/14/2020 09:41:41 PM EST [facility] Name Value Range Interpretation Code Description Data Tere rce(s) Supporting Document(s) POC GLUCOSE 80 mg/dL (70-99) [facility] NOTIFIED NURSEPERFORMED BY CLINICAL S TAFF ID Date Data Source [id number] 11/14/2020 04:51:41 PM EST [facility] Name Value Range Interpretation Code Description Data Tere rce(s) Supporting Document(s) POC GLUCOSE 128 mg/dL (70-99) [facility] PERFORMED BY CLINICAL STAFF ID Date Data Source [id number] 11/14/2020 04:48:00 PM EST [facility] DATE OF EXAM: 11/14/2020EXAM: Portable c hest INDICATION: COVID COMPARISON: No prior chest radiographs on the timeline. TECHNIQUE: AP semiupright. There is a limited degree of inspiration with minor accentuation of the pulmonary markings however no focal area of pneumonia is seen. The mediastinum, heart, and pulmonary vascularity are within normal limits. Professional interpretation performed at [facility] .End of diagnostic report for accession: [id number] Interpreted: Santiago Fraga MDTranscribed: 11/14/2020 04:48 PMSigned: 11/14/2020 04:48 PM Santiago Fraga MD [facility] # [id number] BILL # [id number] Name Value Range Interpretation Code Description Data Tere rce(s) Supporting Document(s) ID Date Data Source [id number] 11/14/2020 12:24:53 PM EST [facility] Name Value Range Interpretation Code Description Data Tere rce(s) Supporting Document(s) POC GLUCOSE 131 mg/dL (70-99) [facility] NOTIFIED NURSEPERFORMED BY CLINICAL S TAFF ID Date Data Source [id number] 11/14/2020 12:04:42 PM EST [facility] Name Value Range Interpretation Code Description Data Tere rce(s) Supporting Document(s) FERRITIN @ 40 ng/mL (8-252) [facility] ID Date Data Source [id number] 11/14/2020 09:38:08 AM EST [facility] Name Value Range Interpretation Code Description Data Tere rce(s) Supporting Document(s) LDH 222 U/L (84-246) [facility] ID Date Data Source [id number] 11/14/2020 09:38:08 AM EST [facility] Name Value Range Interpretation Code Description Data Tere rce(s) Supporting Document(s) SODIUM 133 mmol/L (136-145) [facility] POTASSIUM 5.8 mmol/L (3.6-5.2) [facility] CHLORIDE 99 mmol/L (100-108) [facility] CO2 29 mmol/L (22-31) [facility] ANION GAP 5 mmol/L (7-16) [facility] UREA NITROGEN 11 mg/dL (7-24) [facility] CREATININE 0.68 mg/dL (0.60-1.00) [facility] BUN/CREAT RATIO 16.2 RATIO (10.0-20.0) [facility] GLUCOSE 352 mg/dL (70-99) [facility] CALCIUM 8.4 mg/dL (8.4-10.2) [facility] GFR >60 ml/min/1.73m2 (>59) [facility] GFR ( AMER) >60 ml/min/1.73m2 (>59) [facility] GFR INTERPRETATION [facility] --NORMAL KIDNEY FUNCTION OR MILD DISEASE - GFR >OR= 60CHRONIC KIDNEY DISEASE - GFR 15 - 59RENAL FAILURE - GFR <15 Est. GFR calculation based on the MDRDstudy equation, which assumes a steadystate for creatinine. Est. GFR should notbe used for medication dosing. ID Date Data Source [id number] 11/14/2020 09:34:25 AM EST [facility] Name Value Range Interpretation Code Description Data Tere rce(s) Supporting Document(s) WBC 8.3 10*3/uL (4.1-11.0) [facility] [place] RBC 2.83 10*6/uL (4.00-5.40) L [facility] HGB 8.2 g/dL (12.0-16.0) [facility] HCT 25.4 % (36.0-47.0) [facility] MCV 89.8 fL (80.0-95.0) [facility] MCH 29.1 pg (27.0-32.0) [facility] MCHC 32.4 g/dL (32.0-36.0) [facility] RDW 19.4 % (10.5-14.5) [facility] PLT 407 10*3/uL (150-450) [facility] MPV 8.3 fL (7.1-10.7) [facility] ID Date Data Source [id number] 11/14/2020 09:20:06 AM EST [facility] Name Value Range Interpretation Code Description Data Tere rce(s) Supporting Document(s) D-DIMER,SENSITIVE 1.72 mg/L (<0.50) [facility] Per ACP, an age adjusted D-dimer cutoff forLOW RISK patients over the age of 50 isrecommended.Cutoff = age (years) X 0.01 mg/L.Normal D-dimer values rise with age and datasuggests an age adjusted D-dimer cutoff levelimproves specificity for ruling out PE. ID Date Data Source [id number] 11/14/2020 08:35:37 AM EST [facility] Name Value Range Interpretation Code Description Data Tere rce(s) Supporting Document(s) POC GLUCOSE 361 mg/dL (70-99) [facility] NOTIFIED NURSEPERFORMED BY CLINICAL S TAFF ID Date Data Source [id number] 11/14/2020 02:49:44 AM EST [facility] Name Value Range Interpretation Code Description Data Tere rce(s) Supporting Document(s) POC GLUCOSE 295 mg/dL (70-99) [facility] Lemus NOTIFIED NURSEPERFORMED BY CLINICAL S TAFF ID Date Data Source [id number] 11/13/2020 10:00:40 PM EST [facility] Name Value Range Interpretation Code Description Data Tere rce(s) Supporting Document(s) POC GLUCOSE 154 mg/dL (70-99) [facility] Lemus PERFORMED BY CLINICAL STAFF ID Date Data Source [id number] 11/13/2020 09:58:00 PM EST [facility] [...] space. X7End of diagnostic report for accession: [id number] Interpreted: Santiago Amezcua MDTranscribed: 11/13/2020 09:54 PMSigned: 11/13/2020 09:58 PM Santiago Amezcua MD [facility] # [id number] BILL # [id number] Name Value Range Interpretation Code Description Data Tere rce(s) Supporting Document(s) ID Date Data Source [id number] 11/13/2020 09:58:00 PM EST [facility] DATE OF EXAM: 11/13/2020EXAMINATION/ KUSUM [...] space. X7End of diagnostic report for accession: [id number] Interpreted: Santiago Amezcua MDTranscribed: 11/13/2020 09:54 PMSigned: 11/13/2020 09:58 PM Santiago Amezcua MD [facility] # [id number] BILL # [id number] Name Value Range Interpretation Code Description Data Tere rce(s) Supporting Document(s) ID Date Data Source [id number] 11/13/2020 06:40:15 PM EST [facility] Name Value Range Interpretation Code Description Data Tere rce(s) Supporting Document(s) POC GLUCOSE 83 mg/dL (70-99) [facility] PERFORMED BY CLINICAL STAFF ID Date Data Source [id number] 11/13/2020 06:16:13 PM EST [facility] Name Value Range Interpretation Code Description Data Tere rce(s) Supporting Document(s) POC GLUCOSE 82 mg/dL (70-99) [facility] PERFORMED BY CLINICAL STAFF ID Date Data Source [id number] 11/13/2020 05:44:18 PM EST [facility] Name Value Range Interpretation Code Description Data Tere rce(s) Supporting Document(s) POC GLUCOSE 69 mg/dL (70-99) [facility] PERFORMED BY CLINICAL STAFF ID Date Data Source [id number] 11/13/2020 05:13:24 PM EST [facility] Name Value Range Interpretation Code Description Data Tere rce(s) Supporting Document(s) POC GLUCOSE 51 mg/dL (70-99) [facility] PERFORMED BY CLINICAL STAFF ID Date Data Source [id number] 11/13/2020 12:26:13 PM EST [facility] Name Value Range Interpretation Code Description Data Tere rce(s) Supporting Document(s) POC GLUCOSE 262 mg/dL (70-99) [facility] NOTIFIED NURSEPERFORMED BY CLINICAL S TAFF ID Date Data Source [id number] 11/13/2020 08:26:14 AM EST [facility] Name Value Range Interpretation Code Description Data Tere rce(s) Supporting Document(s) POC GLUCOSE 211 mg/dL (70-99) [facility] NOTIFIED NURSEPERFORMED BY CLINICAL S TAFF ID Date Data Source [id number] 11/13/2020 02:53:44 AM EST [facility] Name Value Range Interpretation Code Description Data Tere rce(s) Supporting Document(s) POC GLUCOSE 232 mg/dL (70-99) [facility] PERFORMED BY CLINICAL STAFF ID Date Data Source [id number] 11/12/2020 09:03:37 PM EST [facility] Name Value Range Interpretation Code Description Data Tere rce(s) Supporting Document(s) POC GLUCOSE 251 mg/dL (70-99) [facility] PERFORMED BY CLINICAL STAFF ID Date Data Source [id number] 11/12/2020 05:13:08 PM EST [facility] Name Value Range Interpretation Code Description Data Tere rce(s) Supporting Document(s) POC GLUCOSE 277 mg/dL (70-99) [facility] PERFORMED BY CLINICAL STAFF ID Date Data Source [id number] 11/12/2020 12:47:13 PM EST [facility] Name Value Range Interpretation Code Description Data Tere rce(s) Supporting Document(s) POC GLUCOSE 57 mg/dL (70-99) [facility] PERFORMED BY CLINICAL STAFF ID Date Data Source [id number] 11/12/2020 07:49:48 AM EST [facility] Name Value Range Interpretation Code Description Data Tere rce(s) Supporting Document(s) POC GLUCOSE 246 mg/dL (70-99) [facility] PERFORMED BY CLINICAL STAFF ID Date Data Source [id number] 11/12/2020 02:44:04 AM EST [facility] [facility] Name Value Range Interpretation Code Description Data Tere rce(s) Supporting Document(s) POC GLUCOSE 75 mg/dL (70-99) [facility] PERFORMED BY CLINICAL STAFF ID Date Data Source [id number] 11/11/2020 10:50:50 PM EST [facility] Name Value Range Interpretation Code Description Data Tere rce(s) Supporting Document(s) POC GLUCOSE 118 mg/dL (70-99) H [facility] NOTIFIED NURSEPERFORMED BY CLINICAL S TAFF ID Date Data Source [id number] 11/11/2020 07:06:03 PM EST [facility] Name Value Range Interpretation Code Description Data Tere rce(s) Supporting Document(s) POC GLUCOSE 387 mg/dL (70-99) H [facility] PERFORMED BY CLINICAL STAFF ID Date Data Source [id number] 11/11/2020 06:14:29 PM EST [facility] Name Value Range Interpretation Code Description Data Tere rce(s) Supporting Document(s) POC GLUCOSE 419 mg/dL (70-99) HH [facility] PERFORMED BY CLINICAL STAFF ID Date Data Source [id number] 11/11/2020 02:52:53 PM EST [facility] Name Value Range Interpretation Code Description Data Tere rce(s) Supporting Document(s) POC GLUCOSE 399 mg/dL (70-99) H [facility] PERFORMED BY CLINICAL STAFF ID Date Data Source [id number] 11/11/2020 12:48:46 PM EST [facility] Name Value Range Interpretation Code Description Data Tere rce(s) Supporting Document(s) POC GLUCOSE 351 mg/dL (70-99) H [facility] [place] [facility] PERFORMED BY CLINICAL STAFF ID Date Data Source [id number] 11/11/2020 11:32:34 AM EST [facility] [place] [facility] Name Value Range Interpretation Code Description Data Tere rce(s) Supporting Document(s) POC GLUCOSE 416 mg/dL (70-99) HH [facility] [place] [facility] PERFORMED BY CLINICAL STAFF ID Date Data Source [id number] 11/11/2020 10:30:00 AM EST [facility] Name Value Range Interpretation Code Description Data Tere rce(s) Supporting Document(s) SARS coronavirus 2 RNA [Presence] in Res piratory specimen by CORONA with probe detection [facility] This lab was reported by [facility]. ID Date Data Source [id number] 11/11/2020 03:56:53 PM EST [facility] [place] [facility] Name Value Range Interpretation Code Description Data Tere rce(s) Supporting Document(s) SPECIMEN DESCRIPTION [facility] [place] COVID19 RESULT (NDET) A [facility] [place] [facility] THIS ASSAY AMPLIFIES AND DETECTSTHE TARG ET RNA USING REAL-TIME PCR. COMMENT [facility] [place] [facility] [place] [facility] APPROVED B Y THE [place]. THE [place] [employer] DRUG [employer]MINISTR[employer] HAS NOT APPROVEDTHIS TEST. NEGATIVE RESULTS DO NOT [id number] INFECTION AND SHOULD NOT BEUSED THE SOLE BASIS FOR CLINICALDIAGNOSIS OR PATIENT MANAGEMENT DECISIONS.RESULTS READ BACK BY BRIGITTE AT 6SIR AT 3627. RESULTS EMAILED TO IC AT [phone]. [phone] [id number]. FIRST TEST [facility] [place] [facility] [place] [facility] [place] [facility] [place] [facility]TOMATIC [facility] [place] [facility] DATE OF SYMPT ONSET [facility]ITAL[facility]ED [facility] [place] [facility] ICU [facility] [place] [facility] [place] CONGREGATE CARE SET [facility] [place] [place] [facility] [place] ID Date Data Source [id number] 11/11/2020 09:05:23 AM EST [facility] [place] [facility] [place] Name Value Range Interpretation Code Description Data Tere rce(s) Supporting Document(s) POC GLUCOSE 270 mg/dL (70-99) H [facility] [place] [facility] PERFORMED BY CLINICAL STAFF ID Date Data Source [id number] 11/11/2020 03:14:24 AM EST [facility] [place] [facility] Name Value Range Interpretation Code Description Data Tere rce(s) Supporting Document(s) POC GLUCOSE 296 mg/dL (70-99) H [facility] [place] [facility] Y PERFORMED BY CLINICAL STAFF ID Date Data Source [id number] 11/10/2020 10:05:27 PM EST [facility] Name Value Range Interpretation Code Description Data Tere rce(s) Supporting Document(s) POC GLUCOSE 167 mg/dL (70-99) H [facility] [place] [facility] Y PERFORMED BY CLINICAL STAFF ID Date Data Source [id number] 11/10/2020 05:37:41 PM EST [facility] [place] [facility] Name Value Range Interpretation Code Description Data Tere rce(s) Supporting Document(s) POC GLUCOSE 81 mg/dL (70-99) [facility] [place] [facility] Y PERFORMED BY CLINICAL STAFF ID Date Data Source [id number] 11/10/2020 01:17:00 PM EST [facility] [...] understanding and verification. Professional interpretation performed at [facility] .End of diagnostic report for accession: [id number] Interpreted: Armando Vu MDTranscribed: 11/10/2020 01:04 PMSigned: 11/10/2020 01:17 PM Armando Vu MD [facility] # [id number] BILL # [id number] Name Value Range Interpretation Code Description Data Tere rce(s) Supporting Document(s) ID Date Data Source [id number] 11/10/2020 12:21:05 PM EST [facility] [place] [facility] Name Value Range Interpretation Code Description Data Tere rce(s) Supporting Document(s) POC GLUCOSE 146 mg/dL (70-99) H [facility] [place] [facility] Y PERFORMED BY CLINICAL STAFF ID Date Data Source [id number] 11/10/2020 07:58:19 AM EST [facility] [place] [facility] Name Value Range Interpretation Code Description Data Tere rce(s) Supporting Document(s) POC GLUCOSE 328 mg/dL (70-99) H [facility] [place] [facility] Y PERFORMED BY CLINICAL STAFF ID Date Data Source [id number] 11/10/2020 06:16:42 AM EST [facility] Name Value Range Interpretation Code Description Data Tere rce(s) Supporting Document(s) POC GLUCOSE 334 mg/dL (70-99) H [facility] [place] [facility] PERFORMED BY CLINICAL STAFF ID Date Data Source [id number] 11/09/2020 11:59:46 PM EST [facility] Name Value Range Interpretation Code Description Data Tere rce(s) Supporting Document(s) POC GLUCOSE 173 mg/dL (70-99) H [facility] [place] [facility] PERFORMED BY CLINICAL STAFF ID Date Data Source [id number] 11/09/2020 10:51:38 PM EST [facility] Name Value Range Interpretation Code Description Data Tere rce(s) Supporting Document(s) POC GLUCOSE 121 mg/dL (70-99) H [facility] [place] [facility] PERFORMED BY CLINICAL STAFF ID Date Data Source [id number] 11/09/2020 10:08:53 PM EST [facility] Name Value Range Interpretation Code Description Data Tere rce(s) Supporting Document(s) POC GLUCOSE 114 mg/dL (70-99) H [facility] [place] [facility] PERFORMED BY CLINICAL STAFF ID Date Data Source [id number] 11/09/2020 09:12:37 PM EST [facility] Name Value Range Interpretation Code Description Data Tere rce(s) Supporting Document(s) POC GLUCOSE 63 mg/dL (70-99) L [facility] [place] [facility] PERFORMED BY CLINICAL STAFF ID Date Data Source [id number] 11/09/2020 06:01:04 PM EST [facility] Name Value Range Interpretation Code Description Data Tere rce(s) Supporting Document(s) POC GLUCOSE 87 mg/dL (70-99) [facility] [place] [facility] NOTIFIED NURSEPERFORMED BY CLINICAL S TAFF ID Date Data Source [id number] 11/09/2020 05:32:04 PM EST [facility] Name Value Range Interpretation Code Description Data Tere rce(s) Supporting Document(s) POC GLUCOSE 60 mg/dL (70-99) L [facility] [place] [facility] NOTIFIED NURSEPERFORMED BY CLINICAL S TAFF ID Date Data Source [id number] 11/09/2020 12:27:55 PM EST [facility] Name Value Range Interpretation Code Description Data Tere rce(s) Supporting Document(s) POC GLUCOSE 142 mg/dL (70-99) H [facility] [place] [facility] NOTIFIED NURSEPERFORMED BY CLINICAL S RADHA ID Date Data Source [id number] 11/09/2020 08:56:18 AM EST [facility] Name Value Range Interpretation Code Description Data Tere rce(s) Supporting Document(s) SODIUM 138 mmol/L (136-145) [facility] POTASSIUM 4.2 mmol/L (3.6-5.2) [facility] CHLORIDE 104 mmol/L (100-108) [facility] CO2 28 mmol/L (22-31) [facility] ANION GAP 6 mmol/L (7-16) L [facility] UREA NITROGEN 15 mg/dL (7-24) [facility] CREATININE 0.61 mg/dL (0.60-1.00) [facility] BUN/CREAT RATIO 24.6 RATIO (10.0-20.0) H [facility] GLUCOSE 308 mg/dL (70-99) H [facility] CALCIUM 7.8 mg/dL (8.4-10.2) L [facility] [place] [facility] GFR >60 ml/min/1.73m2 (>59) [facility] GFR ( AMER) >60 ml/min/1.73m2 (>59) [facility] GFR INTERPRETATION [facility] --NORMAL KIDNEY FUNCTION OR MILD DISEASE - GFR >OR= 60CHRONIC KIDNEY DISEASE - GFR 15 - 59RENAL FAILURE - GFR <15 Est. GFR calculation based on the MDRDstudy equation, which assumes a steadystate for creatinine. Est. GFR should notbe used for medication dosing. ID Date Data Source [id number] 11/09/2020 08:35:10 AM EST [facility] Name Value Range Interpretation Code Description Data Tere rce(s) Supporting Document(s) WBC 8.6 10*3/uL (4.1-11.0) [facility] [place] [facility] [place] RBC 2.70 10*6/uL (4.00-5.40) L [facility] HGB 8.1 g/dL (12.0-16.0) L [facility] HCT 24.3 % (36.0-47.0) L [facility] MCV 90.1 fL (80.0-95.0) [facility] MCH 30.1 pg (27.0-32.0) [facility] MCHC 33.4 g/dL (32.0-36.0) [facility] [place] [facility] RDW 20.2 % (10.5-14.5) H [facility] [place] [facility] PLT 202 10*3/uL (150-450) [facility] [place] [facility] MPV 8.7 fL (7.1-10.7) [facility] ID Date Data Source [id number] 11/09/2020 07:23:28 AM EST [facility] Name Value Range Interpretation Code Description Data Tere rce(s) Supporting Document(s) POC GLUCOSE 297 mg/dL (70-99) H [facility] [place] [facility] NOTIFIED NURSEPERFORMED BY CLINICAL S TAFF ID Date Data Source [id number] 11/08/2020 11:09:23 PM EST [facility] Name Value Range Interpretation Code Description Data Tere rce(s) Supporting Document(s) POC GLUCOSE 253 mg/dL (70-99) H [facility] [place] [facility] PERFORMED BY CLINICAL STAFF ID Date Data Source [id number] 11/08/2020 05:35:30 PM EST [facility] Name Value Range Interpretation Code Description Data Tere rce(s) Supporting Document(s) POC GLUCOSE 138 mg/dL (70-99) H [facility] [place] [facility] PERFORMED BY CLINICAL STAFF ID Date Data Source [id number] 11/11/2020 03:41:00 PM EST [facility] maru Santiago, [facility] [id number] [facility] [place], [place] [address]FMOUITE NAME: GERALD MESA OF : 1975REPORT: CONSULTATIONPATIENT NUMBER: [id number] STATUS: IPMEDICAL RECORD NUMBER: [id number]: 01INTERNAL MEDICINE CONSULTATIONDATE OF CONSULTATION:REFERRING PHYSICIAN: BRENNAN Mcguire FOR CONSULTATION: Diabetes management.HISTORY OF PRESENT ILLNESS: Ms. Eli Mesa is a 02-okal-obnhtsmpe, who has undergone spinal fusion with instrumentation [...] Bilateral clear air entry. Abdomen: Soft, nontender. CELERY PACKER: Awakeand alert.LABORATORY DATA: Sodium 139, potassium 3.5. [...] Santiago, MDDictated: 11/08/2020 15:20DT: 11/08/2020 15:23Job #: [id number]: [facility] computer generated reports are notconfirmed or authenticated unless they are signed by the providerElectronically Authenticated by:TANJA SANTIAGO MD On 11/11/2020 03:42 PM EST Name Value Range Interpretation Code Description Data Tere rce(s) Supporting Document(s) ID Date Data Source [id number] 11/08/2020 11:50:48 AM EST [facility] Name Value Range Interpretation Code Description Data Tere rce(s) Supporting Document(s) POC GLUCOSE 175 mg/dL (70-99) H [facility] [place] [facility] PERFORMED BY CLINICAL STAFF ID Date Data Source [id number] 11/08/2020 09:18:41 AM EST [facility] Name Value Range Interpretation Code Description Data Tere rce(s) Supporting Document(s) POC GLUCOSE 250 mg/dL (70-99) H [facility] [place] [facility] PERFORMED BY CLINICAL STAFF ID Date Data Source [id number] 11/08/2020 09:27:37 AM EST [facility] Name Value Range Interpretation Code Description Data Tere rce(s) Supporting Document(s) SODIUM 139 mmol/L (136-145) [facility] [place] [facility] POTASSIUM 3.5 mmol/L (3.6-5.2) L [facility] [place] [facility] CHLORIDE 105 mmol/L (100-108) [facility] [place] [facility] CO2 28 mmol/L (22-31) [facility] [place] [facility] ANION GAP 6 mmol/L (7-16) L [facility] [place] [facility] UREA NITROGEN 14 mg/dL (7-24) [facility] [place] [facility] CREATININE 0.73 mg/dL (0.60-1.00) [facility] [place] [facility] BUN/CREAT RATIO 19.2 RATIO (10.0-20.0) [facility] GLUCOSE 313 mg/dL (70-99) H [facility] [place] [facility] CALCIUM 8.0 mg/dL (8.4-10.2) L [facility] [place] [facility] GFR >60 ml/min/1.73m2 (>59) [facility] [place] [facility] GFR ( AMER) >60 ml/min/1.73m2 (>59) [facility] [place] [facility] GFR INTERPRETATION [facility] --NORMAL KIDNEY FUNCTION OR MILD DISEASE - GFR >OR= 60CHRONIC KIDNEY DISEASE - GFR 15 - 59RENAL FAILURE - GFR <15 Est. GFR calculation based on the MDRDstudy equation, which assumes a steadystate for creatinine. Est. GFR should notbe used for medication dosing. ID Date Data Source [id number] 11/08/2020 08:56:55 AM EST [facility] Name Value Range Interpretation Code Description Data Tere rce(s) Supporting Document(s) WBC 9.8 10*3/uL (4.1-11.0) [facility] [place] [facility] [place] RBC 2.49 10*6/uL (4.00-5.40) L [facility] [place] [facility] HGB 7.4 g/dL (12.0-16.0) L [facility] [place] [facility] HCT 22.1 % (36.0-47.0) L [facility] [place] [facility] MCV 88.8 fL (80.0-95.0) [facility] [place] [facility] MCH 29.9 pg (27.0-32.0) [facility] [place] [facility] MCHC 33.7 g/dL (32.0-36.0) [facility] [place] [facility] RDW 20.2 % (10.5-14.5) H [facility] [place] [facility] PLT 180 10*3/uL (150-450) [facility] [place] [facility] MPV 8.7 fL (7.1-10.7) [facility] [place] [facility] ID Date Data Source [id number] 11/08/2020 07:36:28 AM EST [facility] Name Value Range Interpretation Code Description Data Tere rce(s) Supporting Document(s) POC GLUCOSE 380 mg/dL (70-99) H [facility] [place] [facility] PERFORMED BY CLINICAL STAFF ID Date Data Source [id number] 11/08/2020 06:22:36 AM EST [facility] Name Value Range Interpretation Code Description Data Tere rce(s) Supporting Document(s) POC GLUCOSE 481 mg/dL (70-99) HH [facility] [place] [facility] NOTIFIED NURSEPERFORMED BY CLINICAL S TAFF ID Date Data Source [id number] 11/08/2020 04:16:53 AM EST [facility] Name Value Range Interpretation Code Description Data Tere rce(s) Supporting Document(s) POC GLUCOSE 452 mg/dL (70-99) HH [facility] [place] [facility] PERFORMED BY CLINICAL STAFF ID Date Data Source [id number] 11/08/2020 03:12:16 AM EST [facility] Name Value Range Interpretation Code Description Data Tere rce(s) Supporting Document(s) POC GLUCOSE 452 mg/dL (70-99) HH [facility] [place] [facility] PERFORMED BY CLINICAL STAFF ID Date Data Source [id number] 11/08/2020 02:08:56 AM EST [facility] [place] [facility] Name Value Range Interpretation Code Description Data Tere rce(s) Supporting Document(s) POC GLUCOSE 429 mg/dL (70-99) HH [facility] [place] [facility] NOTIFIED NURSEPERFORMED BY CLINICAL S TAFF ID Date Data Source [id number] 11/07/2020 10:49:41 PM EST [facility] [place] [facility] Name Value Range Interpretation Code Description Data Tere rce(s) Supporting Document(s) POC GLUCOSE 166 mg/dL (70-99) H [facility] [place] [facility] PERFORMED BY CLINICAL STAFF ID Date Data Source [id number] 11/07/2020 10:49:36 PM EST [facility] Name Value Range Interpretation Code Description Data Tere rce(s) Supporting Document(s) POC GLUCOSE 169 mg/dL (70-99) H [facility] [place] [facility] PERFORMED BY CLINICAL STAFF ID Date Data Source [id number] 11/07/2020 10:49:17 PM EST [facility] Name Value Range Interpretation Code Description Data Tere rce(s) Supporting Document(s) POC GLUCOSE 48 mg/dL (70-99) LL [facility] [place] [facility] PERFORMED BY CLINICAL STAFF ID Date Data Source [id number] 11/07/2020 09:52:14 PM EST [facility] Name Value Range Interpretation Code Description Data Tere rce(s) Supporting Document(s) GLUCOSE 51 mg/dL (70-99) L [facility] [place] [facility] ID Date Data Source [id number] 11/07/2020 10:49:11 PM EST [facility] Name Value Range Interpretation Code Description Data Tere rce(s) Supporting Document(s) POC GLUCOSE 32 mg/dL (70-99) LL [facility] [place] [facility] NOTIFIED NURSEPERFORMED BY CLINICAL S TAFF ID Date Data Source [id number] 11/07/2020 08:55:28 PM EST [facility] Name Value Range Interpretation Code Description Data Tere rce(s) Supporting Document(s) POC GLUCOSE 20 mg/dL (70-99) LL [facility] [place] [facility] NOTIFIED NURSEPERFORMED BY CLINICAL S TAFF ID Date Data Source [id number] 11/07/2020 05:33:24 PM EST [facility] Name Value Range Interpretation Code Description Data Tere rce(s) Supporting Document(s) POC GLUCOSE 151 mg/dL (70-99) H [facility] [place] [facility] NOTIFIED NURSEPERFORMED BY CLINICAL S TAFF ID Date Data Source [id number] 11/07/2020 12:55:03 PM EST [facility] Name Value Range Interpretation Code Description Data Tere rce(s) Supporting Document(s) POC GLUCOSE 177 mg/dL (70-99) H [facility] [place] [facility] NOTIFIED NURSEPERFORMED BY CLINICAL S TAFF ID Date Data Source [id number] 11/07/2020 08:50:48 AM EST [facility] [place] [facility] Name Value Range Interpretation Code Description Data Tere rce(s) Supporting Document(s) POC GLUCOSE 231 mg/dL (70-99) H [facility] [place] [facility] NOTIFIED NURSEPERFORMED BY CLINICAL S TAFF ID Date Data Source [id number] 11/07/2020 08:39:35 AM EST [facility] [place] [facility] Name Value Range Interpretation Code Description Data Tere rce(s) Supporting Document(s) SODIUM 138 mmol/L (136-145) [facility] [place] [facility] POTASSIUM 3.8 mmol/L (3.6-5.2) [facility] [place] [facility] CHLORIDE 105 mmol/L (100-108) [facility] [place] [facility] CO2 22 mmol/L (22-31) [facility] [place] [facility] ANION GAP 11 mmol/L (7-16) [facility] [place] [facility] UREA NITROGEN 10 mg/dL (7-24) [facility] [place] [facility] CREATININE 0.65 mg/dL (0.60-1.00) [facility] [place] [facility] BUN/CREAT RATIO 15.4 RATIO (10.0-20.0) [facility] GLUCOSE 233 mg/dL (70-99) H [facility] [place] [facility] CALCIUM 8.1 mg/dL (8.4-10.2) L [facility] [place] [facility] GFR >60 ml/min/1.73m2 (>59) [facility] [place] [facility] GFR ( AMER) >60 ml/min/1.73m2 (>59) [facility] [place] [facility] GFR [facility]TATION [facility] --NORMAL KIDNEY FUNCTION OR MILD DISEASE - GFR >OR= 60CHRONIC KIDNEY DISEASE - GFR 15 - 59RENAL FAILURE - GFR <15 Est. GFR calculation based on the MDRDstudy equation, which assumes a steadystate for creatinine. Est. GFR should notbe used for medication dosing. ID Date Data Source [id number] 11/07/2020 08:17:32 AM EST [facility] [place] [facility] Name Value Range Interpretation Code Description Data Tere rce(s) Supporting Document(s) WBC 13.7 10*3/uL (4.1-11.0) H [facility] [place] [facility] RBC 2.70 10*6/uL (4.00-5.40) L [facility] [place] [facility] HGB 7.6 g/dL (12.0-16.0) L [facility] [place] [facility] HCT 23.4 % (36.0-47.0) L [facility] [place] [facility] PATIENT TRANSFUSED MCV 86.7 fL (80.0-95.0) [facility] [place] [facility] MCH 28.3 pg (27.0-32.0) [facility] [place] [facility] MCHC 32.6 g/dL (32.0-36.0) [facility] [place] [facility] RDW 20.7 % (10.5-14.5) H [facility] [place] [facility] PLT 187 10*3/uL (150-450) [facility] [place] [facility] MPV 8.6 fL (7.1-10.7) [facility] [place] [facility] ID Date Data Source [id number] 11/07/2020 01:43:49 AM EST [facility] Name Value Range Interpretation Code Description Data Tere rce(s) Supporting Document(s) HCT 18.5 % (36.0-47.0) LL [facility] [place] [facility] RESULT VERIFIED BY REPEAT TESTING.RESULT (S) CALL[facility] 6SIR ON 11.07.20 [place] 0142 [place] [id number] ID Date Data Source [id number] 11/07/2020 01:03:14 AM EST [facility] [place] [facility] Name Value Range Interpretation Code Description Data Tere rce(s) Supporting Document(s) POC GLUCOSE 180 mg/dL (70-99) H [facility] [place] [facility] NOTIFIED NURSEPERFORMED BY CLINICAL S TAFF ID Date Data Source [id number] 11/06/2020 09:55:11 PM EST [facility] [place] [facility] Name Value Range Interpretation Code Description Data Tere rce(s) Supporting Document(s) POC GLUCOSE 115 mg/dL (70-99) H [facility] [place] [facility] PERFORMED BY CLINICAL STAFF ID Date Data Source [id number] 11/06/2020 09:13:32 PM EST [facility] [place] [facility] Name Value Range Interpretation Code Description Data Tere rce(s) Supporting Document(s) POC GLUCOSE 81 mg/dL (70-99) [facility] [place] [facility] PERFORMED BY CLINICAL STAFF ID Date Data Source [id number] 11/06/2020 08:43:30 PM EST [facility] [place] [facility] Name Value Range Interpretation Code Description Data Tere rce(s) Supporting Document(s) POC GLUCOSE 74 mg/dL (70-99) [facility] [place] [facility] PERFORMED BY CLINICAL STAFF ID Date Data Source [id number] 11/06/2020 08:11:24 PM EST [facility] [place] [facility] Name Value Range Interpretation Code Description Data Tere rce(s) Supporting Document(s) POC GLUCOSE 95 mg/dL (70-99) [facility] [place] [facility] PERFORMED BY CLINICAL STAFF ID Date Data Source [id number] 11/07/2020 06:54:00 AM EST [facility] [id number] [place], [place] [address]SPTIABO NAME: AURA MESAATE OF : 1975REPORT: OPERATIONPATIENT NUMBER: [id number] STATUS: IPMEDICAL RECORD NUMBER: [id number] OF ADMISSION: 11/06/2020DATE OF DISCHARGE:ROOM: 01DATE OF [...] is a very pleasant female status post L5-U6rihwqsoao lumbar interbody fusion about 6 weeks ago in 08/2020. Thepatient developed progressive spondylolisthesis of L5-S1 with an L5-F5tgoyq IV spondylolisthesis. CT scan was significant for [...] screws from the previous operation and the P1aoengua screws from the previous operation. I exposed the previoushardware. I then removed the Globus implant at L5-S1 from her originalsurgery. The set screws were removed and then the rods removed. Thebilateral L5 and S1 screws were removed. The L5 screws bilaterally wereclosely loose without any significant purchase within the bone. The B2hxeaidl screws had fair purchase. The S1 pedicle screws were removed, Bairon increased the diameter of the pedicle screws from a 6.5 x 25 mm screw upto an 8.5 x 40 mm screw at S1 bilaterally. This was a revision of the I9xlqrbvn screws bilaterally. I then revised the bilateral [...] I then decorticated the L3 transverse processes, X2aotrytjuwr processes, L5 transverse processes, and sacral ala [...] FELICITA Mcguireictated: 11/06/2020 18:21DT: 11/06/2020 18:31Job #: [id number]: [facility] computer generated reports are not confirmed orauthenticated unless they are signed by the providerElectronically Authenticated and Edited by:ELÍAS GORDON MD On 11/07/2020 06:54 AM EST Name Value Range Interpretation Code Description Data Tere rce(s) Supporting Document(s) ID Date Data Source [id number] 11/06/2020 05:25:54 PM EST [facility] [place] [facility] Name Value Range Interpretation Code Description Data Tere rce(s) Supporting Document(s) POC GLUCOSE 294 mg/dL (70-99) H [facility] [place] [facility] NOTIFIED NURSEPERFORMED BY CLINICAL S TAFF ID Date Data Source [id number] 11/06/2020 04:36:35 PM EST [facility] [place] [facility] [place] Name Value Range Interpretation Code Description Data Tere rce(s) Supporting Document(s) POC GLUCOSE 383 mg/dL (70-99) H [facility] [place] [facility] PERFORMED BY CLINICAL STAFF ID Date Data Source [id number] 11/06/2020 03:39:01 PM EST [facility] [place] [facility] Name Value Range Interpretation Code Description Data Tere rce(s) Supporting Document(s) POC GLUCOSE 403 mg/dL (70-99) HH [facility] [place] [facility] PERFORMED BY CLINICAL STAFF ID Date Data Source [id number] 11/06/2020 04:14:04 PM EST [facility] [place] [facility] Name Value Range Interpretation Code Description Data Tere rce(s) Supporting Document(s) WBC 18.7 10*3/uL (4.1-11.0) H [facility] [place] [facility] RBC 2.95 10*6/uL (4.00-5.40) L [facility] [place] [facility] HGB 8.1 g/dL (12.0-16.0) L [facility] [place] [facility] HCT 25.3 % (36.0-47.0) L [facility] [place] [facility] MCV 85.8 fL (80.0-95.0) [facility] [place] [facility] MCH 27.3 pg (27.0-32.0) [facility] [place] [facility] MCHC 31.9 g/dL (32.0-36.0) L [facility] [place] [facility] RDW 23.1 % (10.5-14.5) H [facility] [place] [facility] PLT 276 10*3/uL (150-450) [facility] [place] [facility] MPV 9.1 fL (7.1-10.7) Lab [facility] ID Date Data Source [id number] 11/06/2020 03:46:09 PM EST [facility] Name Value Range Interpretation Code Description Data Tere rce(s) Supporting Document(s) SODIUM 137 mmol/L (136-145) [facility] POTASSIUM 4.5 mmol/L (3.6-5.2) [facility] CHLORIDE 106 mmol/L (100-108) [facility] CO2 21 mmol/L (22-31) L [facility] ANION GAP 10 mmol/L (7-16) [facility] UREA NITROGEN 10 mg/dL (7-24) [facility] CREATININE 0.76 mg/dL (0.60-1.00) [facility] BUN/CREAT RATIO 13.2 RATIO (10.0-20.0) [facility] GLUCOSE 398 mg/dL (70-99) H [facility] CALCIUM 7.6 mg/dL (8.4-10.2) L [facility] GFR >60 ml/min/1.73m2 (>59) [facility] GFR ( AMER) >60 ml/min/1.73m2 (>59) [facility] GFR INTERPRETATION [facility] --NORMAL KIDNEY FUNCTION OR MILD DISEASE - GFR >OR= 60CHRONIC KIDNEY DISEASE - GFR 15 - 59RENAL FAILURE - GFR <15 Est. GFR calculation based on the MDRDstudy equation, which assumes a steadystate for creatinine. Est. GFR should notbe used for medication dosing. ID Date Data Source [id number] 11/06/2020 02:31:50 PM EST [facility] Name Value Range Interpretation Code Description Data Tere rce(s) Supporting Document(s) POC GLUCOSE 353 mg/dL (70-99) H [facility] Y PERFORMED BY CLINICAL STAFF ID Date Data Source [id number] 11/06/2020 02:21:44 PM EST [facility] Name Value Range Interpretation Code Description Data Tere rce(s) Supporting Document(s) POC GLUCOSE 237 mg/dL (70-99) H [facility] NOTIFIED PROVIDERPERFORMED BY CLINICA L STAFF ID Date Data Source [id number] 11/06/2020 02:21:34 PM EST [facility] Name Value Range Interpretation Code Description Data Tere rce(s) Supporting Document(s) POC GLUCOSE 121 mg/dL (70-99) H [facility] NOTIFIED PROVIDERPERFORMED BY [facility] ID Date Data Source [id number] 11/09/2020 06:48:26 AM EST [facility] SPECIMEN DESCRIPTION SITE LUMBAR DEEP 1SPECIAL REQUESTS NONECULTURE RESULTS NO ANAEROBES ISOLATEDREPORT STATUS FINAL 11/09/2020 Name Value Range Interpretation Code Description Data Tere rce(s) Supporting Document(s) ID Date Data Source [id number] 11/09/2020 06:47:52 AM EST [facility] SPECIMEN DESCRIPTION SITE LUMBAR DEEP 2SPECIAL REQUESTS NONECULTURE RESULTS NO ANAEROBES ISOLATEDREPORT STATUS FINAL 11/09/2020 Name Value Range Interpretation Code Description Data Tere rce(s) Supporting Document(s) ID Date Data Source [id number] 11/08/2020 11:35:56 AM EST [facility] SPECIMEN DESCRIPTION SITE LUMBAR DEEP 1SPECIAL REQUESTS NONEGRAM STAIN FEW (<10/LPF) WHITE BLOOD CELLS NO BACTERIACULTURE RESULTS NO GROWTHREPORT STATUS FINAL 11/08/2020 Name Value Range Interpretation Code Description Data Tere rce(s) Supporting Document(s) ID Date Data Source [id number] 11/08/2020 11:37:37 AM EST [facility] [place] SPECIMEN DESCRIPTION SITE LUMBAR DEEP 2SPECIAL REQUESTS NONEGRAM STAIN FEW (<10/LPF) WHITE BLOOD CELLS NO BACTERIACULTURE RESULTS NO GROWTHREPORT STATUS FINAL 11/08/2020 Name Value Range Interpretation Code Description Data Tere rce(s) Supporting Document(s) ID Date Data Source [id number] 11/08/2020 12:27:13 AM EST [facility] [place] [facility] CERNA SPEC EXP DATE 11/07/2020TEST ING SITE PERFORMED AT [address] [place], [place] [address]UNIT NUMBER [id number] COMPONENT TYPE LEUKOPOOR RED CELLSUNIT DIVISION 00STATUS OF UNIT TRANSFUSEDTRANSFUSION STATUS OK TO TRANSFUSECROSSMATCH RESULT COMPATIBLEUNIT NUMBER [id number] COMPONENT TYPE LEUKOPOOR RED CELLSUNIT DIVISION 00STATUS OF UNIT TRANSFUSEDTRANSFUSION STATUS OK TO TRANSFUSECROSSMATCH RESULT COMPATIBLEUNIT NUMBER [id number] COMPONENT TYPE LEUKOPOOR RED CELLSUNIT DIVISION 00STATUS OF UNIT TRANSFUSEDTRANSFUSION STATUS OK TO TRANSFUSECROSSMATCH RESULT COMPATIBLE Name Value Range Interpretation Code Description Data Tere rce(s) Supporting Document(s) ID Date Data Source [id number] 11/06/2020 07:37:19 AM EST [facility] [place] [facility] Name Value Range Interpretation Code Description Data Tere rce(s) Supporting Document(s) HEMOGLOBIN A1C @ 6.7 % (4.0-6.0) H Lab [facility] Performed using Tungle.me immunoassa y.Care must be taken when interpreting ShO5undscerw in patients with a hemoglobin variantor decreased erythrocyte lifespan. Values 5.7 - 6.4% suggest prediabetes.Values >=6.5% are diagnostic for diabetes.REFERENCE: DIABETES CARE 2018: 41(S13-S27).[facility]FOR[facility] [address] [facility] [place] [address] EST AVERAGE GLUCOSE 146 mg/dL [facility] ID Date Data Source [id number] 11/06/2020 06:17:14 AM EST [facility] Name Value Range Interpretation Code Description Data Tere rce(s) Supporting Document(s) POC GLUCOSE 172 mg/dL (70-99) H [facility] PERFORMED BY CLINICAL STAFF ID Date Data Source [id number] 11/06/2020 07:40:36 AM EST [facility] Name Value Range Interpretation Code Description Data Tere rce(s) Supporting Document(s) POC GLUCOSE 226 mg/dL (70-99) H [facility] PERFORMED BY CLINICAL STAFF ID Date Data Source [id number] 11/04/2020 03:54:47 PM EST [facility] PCName: Eli MesaDOB: 1975Provider: Murali GordoninDOS: 11/04/2020 Reason For VisitSbear Mesa is here today for preop. Reports ongoing low back, BLE pain>R. Other DOI/DOO: chronic pain. Surgery Description: L3-S1 posterior fusion w/instrumentation,lateral arthrodesis,PLIF,L5-S1 bilateral facetectomies,revision L5-S1 Laminectomy,L3-5 Laminectomy decompression,S1 pedicle subtraction osteotomy,bilateral iliac fixation,ICBG,L5-S1 hardware removal/cage removal,revision L5-S1 pedicle screws. 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 Patient's last day worked was . Plan X-Ray I Scoliosis - 2+ views (XRays were ordered, obtained and interpreted today in theoffice. Indication: pain/dysfunction.); Status:Complete; Done: [id number] Perform:SOS14 (General); Due:[id number]; Last Updated By:Irene Yanez; 11/04/2020 3:39:40 PM;Ordered; For:Low back pain; Ordered By:Elías Gordon; You need to quit smoking.; Status:Complete; Done: [id number] Last Updated By:Lxei Lin; 11/04/2020 3:26:43 PM;Ordered; For:SocHx: Current every [...] L5-S1, progressive listhesis, grade 4 spinal listhesis L5-Z4Mgkenqicqihatgvj spondylolisthesis, grade 4, cage migration, construct failure, [...] rce(s) Supporting Document(s) ID Date Data Source [id number] 11/05/2020 10:32:42 AM EST [facility] [place] Name Value Range Interpretation Code Description Data [facility] rce(s) Supporting Document(s) HEMOGLOBIN A1C @ 7.0 % (4.0-6.0) H [facility] [place] [facility] [place] Performed using Siemens Raritan immunoassa y.Care must be taken when interpreting TdX0xigwvtcu in patients with a hemoglobin variantor decreased erythrocyte lifespan. Values 5.7 - 6.4% suggest prediabetes.Values >=6.5% are diagnostic for diabetes.REFERENCE: DIABETES CARE 2018: 41(S13-S27).PERFORMED AT [address] [facility] [address] EST AVERAGE GLUCOSE 154 mg/dL [facility] ID Date Data Source [id number] 11/05/2020 10:08:22 AM EST [facility] Name Value Range Interpretation Code Description Data Tere rce(s) Supporting Document(s) WBC 8.6 10*3/uL (4.1-11.0) [facility] [place] [facility] RBC 4.19 10*6/uL (4.00-5.40) [facility] HGB 11.1 g/dL (12.0-16.0) L [facility] HCT 36.0 % (36.0-47.0) [facility] [place] [facility] PERFORMED AT [address] [facility] [address] MCV 86.1 fL (80.0-95.0) [facility] MCH 26.5 pg (27.0-32.0) L [facility] MCHC 30.8 g/dL (32.0-36.0) L [facility] [place] [facility] RDW 27.2 % (10.5-14.5) H [facility] [place] [facility] PLT 336 10*3/uL (150-450) [facility] MPV 9.2 fL (7.1-10.7) [facility] NEUT % 70.7 % (35.0-75.0) [facility] LYMPH % 20.1 % (16.0-52.0) [facility] MONO % 6.8 % (0.0-8.0) [facility] EOS % 2.1 % (0.0-5.0) [facility] BASO % 0.3 % (0.0-4.0) [facility] NEUT # 6.1 10*3/uL (1.8-7.7) [facility] LYMPH # 1.7 10*3/uL (1.2-4.8) [facility] MONO # 0.6 10*3/uL (0.0-0.8) [facility] Eosinophils [#/volume] in Blood by Automated count 0.2 10*3/uL (0.0-0 .5) [facility] BASO # 0.0 10*3/uL (0.0-0.2) [facility] ID Date Data Source [id number] 11/04/2020 07:54:09 PM EST [facility] SPEC EXP DATE 11/07/2020PATI ENT ABO/Rh O POSITIVEANTIBODY SCREEN NEGATIVETESTING SITE PERFORMED AT [address] [facility] [address]KGRPL BANK COMMENT BLOOD TYPE CONFIRMED. Name Value Range Interpretation Code Description Data Tere rce(s) Supporting Document(s) ID Date Data Source [id number] 11/05/2020 09:35:27 AM EST [facility] Name Value Range Interpretation Code Description Data Tere rce(s) Supporting Document(s) SPECIMEN DESCRIPTION [facility] [place] STAPH SCREEN RESULTS (ONEGSA) [facility] COMMENT [facility] [place] [facility] GENE TO DETECT STAPH AUREUS. (2) RT-P CR WAS PERFORMED FOR THE mecA AND SCCmec GENES TO DETECT METHICILLIN RESISTANCE IN STAPH AUREUS. ID Date Data Source [id number] 11/03/2020 01:40:00 PM EST [facility] Name Value Range Interpretation Code Description Data Tere rce(s) Supporting Document(s) SARS coronavirus 2 RNA [Presence] in Res piratory specimen by CORONA with probe detection [facility] This lab was ordered by [facility] and reported by [email or web address]. ID Date Data Source [id number] 10/29/2020 01:43:29 PM EST [facility] PCName: Eli MesaDOB: 1975Provider: June [...] Facetectomies and Bilateral Foraminotomie. 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 History of Present IllnessStates after surgery she is doing wellDeveloped increasing pain mid- to [facility]--MRI performedLow back pain has continuedEpisodic bilateral S1 [...] extrusion and possible hardware back out [facility] 08/18[facility]18: L5- S1 spinal listhesis; right L5-S1 disc herniationI lumbar [facility] 08/14/2020: L5-S1 spondylolisthesis, L5-S1 disc herniation; bilateral foraminal narrowing. No sign ificant change compared to MRI of 08/09/2018[facility] 10/06/2020: Postop changes. Reviewed in detail the [...] today inthe office. Indication: pain/dysfunction.); Status:Complete; Done: [id number] Perform:SOS22; Due:[id number]; Last Updated By:Gaviota Cesar; 10/29/2020 10:37:29 AM;Ordered; For:Low back pain; Ordered By:Eder Polo; CT Scan (SOS) Referral Treatment Treatment Status: Need Information - FinancialAuthorization Requested for: [id number] Ordered Stat;For: Aftercare following surgery of the musculoskeletal system, Low back pain; Ordered By: Eder Polo Performed: Order Comments: Please schedule at [facility]. Due: [id number]; Last Updated By: Inga Rutherford; 10/29/2020 11:30:48 [...] document was dictated and electronically signed using Nexis Vision software. A reasonable attempt at proof reading [...] rce(s) Supporting Document(s) ID Date Data Source [id number] 10/21/2020 03:34:00 PM EST [facility] Name Value Range Interpretation Code Description Data Tere rce(s) Supporting Document(s) SARS coronavirus 2 RNA [Presence] in Res piratory specimen by CORONA with probe detection [facility] This lab was ordered by [facility] a nd reported by [facility]. ID Date Data Source [id number] 10/21/2020 01:22:00 PM EST [facility] ([facility] [...] [facility] ID Date Data Source [id number] 10/21/2020 11:15:00 AM EST [facility] ([facility] Hernandes [...] [facility] ID Date Data Source [id number] 10/21/2020 10:37:00 AM EST [facility] Name Value Range Interpretation Code Description Data Teer rce(s) Supporting Document(s) Lipoprotein lipase [Enzymatic activity/volume] in Serum or Plasm a 25 U/L 73-393 [facility] ([facility] ID Date Data Source [id number] 10/21/2020 10:37:00 AM EST [facility] Name Value Range Interpretation Code Description Data Tere rce(s) Supporting Document(s) Alt/SGPT 17 U/L 12-78 [facility] ([facility] Ast/Sgot 31 U/L 7-37 [facility] [...] [facility] ID Date Data Source [id number] 10/21/2020 10:37:00 AM EST [facility] ([facility] Name Value Range Interpretation Code Description Data Tere rce(s) Supporting Document(s) Hemoglobin 11.6 g/dL 12.0-15.5 [facility] ([facility] Red Blood Count 4.81 10 4.00-5.40 [facility] ([facility] White Blood Count 19.9 10 4.0-10.0 [facility] ([facility] Mean Corpuscular Volume 81.9 fl 80.0-96.0 M [facility] ([facility] Mean Corpuscular Hemoglobin 24.1 pg 27.0-33.0 [facility] ([facility] Hematocrit 39.4 % 36.0-47.0 [facility] ([facility] Mean Corpuscular HGB Conc 29.4 g/dL 32.0-36.5 [facility] ([facility] Red Cell Distribution Width 20.6 % 11.5-14.5 [facility] ([facility] Platelet Count, Automated 478 10 150-450 [facility] ([facility] Nucleated Red Blood Cell % 0.0 % 0-0 [facility] ([facility] ID Date Data Source [id number] 10/21/2020 10:31:00 AM EST [facility] (Mary Hernandes [...] [facility] ID Date Data Source [id number] 10/19/2020 09:08:01 PM EST [facility] PCName: Eli MesaDOB: 1975Provider: Dk [...] patient's pain 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 History of Present IllnessPatient is a 45-year-old female presents to the office with a chief complaint of constant right-sided low back pain with constant radiating pain in the right lower extremity. Recent exacerbation without injury. She is status post L5-S1 laminectomy/fusion on 09/15/2020. Evaluated at [facility] where MRI was performed. Utilizing tizanidine and gabapentin. Denies any signs of infection. AssessmentLow back painRight lumbar radiculitis Plan Start: Diclofenac Sodium 75 MG Oral Tablet Delayed Release; 1 po BID MDD:2 Rx By: Brenton Napoles; Dispense: 0 Days ; #:60 Tablet; Refill: 1;For: Low back pain; PHIL = N; Verified Transmission to [facility]; Last Updated By: Estorian OG-Vegas; 10/14/2020 2:33:52 PM Renew: HYDROcodone-Acetaminophen 7.5-325 MG Oral Tablet; TAKE 1 TO 2 TABLETSEVERY 6 HOURS NEEDED FOR PAIN. Do not exceed more than6 tablets per 24hr MDD:6 Rx By: Brenton Napoles; Dispense: 0 Days ; #:60 Tablet; Refill: 0;For: Aftercare following surgery of the musculoskeletal system, Low back pain; PHIL = N; Verified Transmission to [facility]; Msg to Pharmacy: Reference #:[id number]; Last Updated By: [employer]; 10/14/2020 4:04:01 PM Patient is status post [...] document was dictated and electronically signed using Pennant Speaking software. A reasonable attempt at proof reading has been made to minimize errors. Please call with any questions. Signatures Elect ronically signed by : Cailin Wolfe; Oct 19 2020 3:38PM EST (Author) Electronically signed by : Eder Polo M.D.; Oct 19 2020 9:07PM EST Name Value Range Interpretation Code Description Data Tere rce(s) Supporting Document(s) ID Date Data Source [id number] 10/08/2020 07:03:00 PM EST [facility] ([facility]andes [...] pathogens. DISCLAIMER: Testing was performed using the Inspur GroupID SARS-CoV-2 test. This test was developed and its performance characteristics determined by [employer]. This test has not been FDA cleared [...] or revoked sooner. ID Date Data Source [id number] 10/08/2020 07:03:00 PM EST [facility] (Mary Hernandes [...] pathogens. DISCLAIMER: Testing was performed using the [employer] SARS-CoV-2 test. This test was developed and its performance characteristics determined by [employer]. This test has not been FDA cleared [...] [facility] ID Date Data Source [id number] 10/08/2020 06:17:00 PM EST [facility] ([facility] Name Value Range Interpretation Code Description Data [facility] rce(s) Supporting Document(s) Glucose [Mass/volume] in Capillary blood by Glucometer 275 mg/dL 70- 105 [facility] ([facility] ID Date Data Source [id number] 10/08/2020 04:55:00 PM EST [facility] Name Value Range Interpretation Code Description Data [facility] rce(s) Supporting Document(s) Glucose [Mass/volume] in Capillary blood by Glucometer 254 mg/dL 70- 105 [facility] ID Date Data Source [id number] 10/08/2020 02:20:00 PM EST [facility] Name Value Range Interpretation Code Description Data [facility](s) Supporting Document(s) Appearance, Urine RFX Laboratory test result [facility] ([facility] Specific [place] Ur Auto RFX 1.023 1.002-1.035 [facility] (Mary [...] [facility] ID Date Data Source [id number] 10/08/2020 02:10:00 PM EST [facility] ([facility] Name Value Range Interpretation Code Description Data Tere rce(s) Supporting Document(s) Glucose [Mass/volume] in Capillary blood by Glucometer 388 mg/dL 70- 105 [facility] ([facility] ID Date Data Source [id number] 10/08/2020 12:55:00 PM EST [facility] (Mary Hernandes [...] P.C.) Hematocrit 29.1 % 36.0-47.0 [facility] ([facility] Red Cell Distribution Width 17.0 % 11.5-14.5 [facility] ([facility] Neutrophils % 85.3 % 36.0-66.0 [facility] ([facility] Platelet Count, Automated 500 10 150-450 [facility] ([facility] Panola % 5.1 % 0.0-5.0 [facility] (Mary ruvalcaba [...] 10 1.5-5.0 [facility] ([facility] Panola # 0.7 10 0.0-0.8 [facility] ([facility] Neutrophils # 11.0 10 1.5-8.5 [facility] ([facility] Eos # 0.0 10 0.0-0.5 [facility] ([facility] Baso # 0.1 10 0.0-0.2 [facility] ([facility] ID Date Data Source [id number] 10/08/2020 12:55:00 PM EST [facility] (Mary Hernandes [...] [facility] ID Date Data Source [id number] 10/08/2020 12:55:00 PM EST [facility] (Mary Hernandes [...] [facility] ID Date Data Source [id number] 10/08/2020 12:55:00 PM EST [facility] Name Value Range Interpretation Code Description Data Tere rce(s) Supporting Document(s) Creatinine For GFR 0.90 mg/dL 0.55-1.30 [facility] ([facility] Glucose, Fasting 443 mg/dL 70-100 Above upper panic limits [facility] ([facility] Blood Urea Nitrogen 17 mg/dL [...] Little GFR Left</content>
<content>ESRD GFR <15 on PMO LEAD</content>
<content></content> Chloride Level 97 meq/L 98-107 [facility] ([facility] Carbon Dioxide Level 21 meq/L 21-32 [facility] ([facility] Anion Gap 15 meq/L 8-16 [facility] ([facility] Calcium Level 9.4 mg/dL 8.5-10.1 [facility] ID Date Data Source [id number] 10/08/2020 12:55:00 PM EST [facility] (Mary Hernandes [...] monitoring the treatment of cancer patients. Siemens Raritan methodology. ID Date Data Source [id number] 10/08/2020 12:55:00 PM EST [facility] Name Value Range Interpretation Code Description Data Tere rce(s) Supporting Document(s) Hemoglobin A1c 7.1 % [facility] ([facility] <content>REFERENCE RANGES:</content><br/ ><content></content>
<content><=5.6% NORMAL</content>
<content>5.7-6.4% SUGGESTS IMPAIRED GLUCOSE METABOLISM/PREDIABETIC</content>
<content>>= 6.5% ABNORMAL</content>
<content></content> Estimated Average Glucose 157 mg/dL 60-110 [facility] ([facility] ID Date Data Source [id number] 10/08/2020 12:55:00 PM EST [facility] ([facility] Name Value Range Interpretation Code Description Data Tere rce(s) Supporting Document(s) Phosphate [Moles/volume] in Serum or Plasma 3.3 mg/dL 2.5-4.9 [facility] ([facility] Magnesium [Mass/volume] in Serum or Plasma 1.8 mg/dL 1.8-2.4 [facility] ([facility] ID Date Data Source [id number] 10/08/2020 12:55:00 PM EST [facility] ([facility] Name Value Range Interpretation Code Description Data Tere rce(s) Supporting Document(s) Iron (Fe) 18 ug/dL 50-170 [facility] ([facility] Total Iron Binding Capacity 407 ug/dL 250-450 [facility] ([facility] Percent Saturation 4.4 % 13.2-45.0 [facility] ([facility]un [facility] ID Date Data Source [id number] 10/08/2020 12:55:00 PM EST [facility] Name Value Range Interpretation Code Description Data Tere rce(s) Supporting Document(s) Ferritin [Mass/volume] in Serum or Plasma 20 ng/mL 8-252 [facility] ([facility] ID Date Data Source [id number] 10/08/2020 12:13:00 PM EST [facility] ([facility] Name Value Range Interpretation Code Description Data Tere rce(s) Supporting Document(s) Glucose [Mass/volume] in Capillary blood by Glucometer 419 mg/dL 70- 105 [facility] ([facility] ID Date Data Source [id number] 10/06/2020 05:44:00 PM EST [facility] (Mary Hernandes [...] Little GFR Left</content>
<content>ESRD GFR <15 on PMO LEAD</content>
<content></content> Chloride Level 102 meq/L 98-107 [facility] [...] [facility] ID Date Data Source [id number] 10/06/2020 05:44:00 PM EST [facility] ([facility] Name Value Range Interpretation Code Description Data Tere rce(s) Supporting Document(s) C reactive protein [Mass/volume] in Serum or Plasma by High sensitivity method 0.85 mg/dL 0.00-0.30 [facility] ([facility] ID Date Data Source [id number] 10/06/2020 05:44:00 PM EST [facility] (Mary Hernandes [...] % 0.0-1.0 [facility] ([facility]aba [facility] Panola % 5.7 % 0.0-5.0 [facility] (Mary ruvalcaba [...] 10 0.0-0.5 [facility] ([facility]aba [facility] Panola # 0.5 10 0.0-0.8 [facility] ([facility] Baso # 0.2 10 0.0-0.2 [facility] ([facility] ID Date Data Source [id number] 10/06/2020 05:44:00 PM EST [facility] Name Value Range Interpretation Code Description Data Tere rce(s) Supporting Document(s) Erythrocyte sedimentation rate by 2H Westergren method 70 mm/hr 0-2 0 [facility] ([facility] ID Date Data Source [id number] 10/11/2020 05:12:57 PM EST [facility] PCName: Eli MesaDOB: 1975Provider: Brenton [...] patient's pain 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 Patient is not working at this time [...] pain; PHIL = N; Verified Transmission to [facility]13; Last Updated By: EstorianMarcelLocation [employer]; 09/28/2020 2:43:35 PM Renew: HYDROcodone-Acetaminophen 5-325 MG Oral Tablet; TAKE 1-2 TABLETSEVERY 4 HOURS NEEDED FOR POSTOP PAIN, DO NOT EXCEEDMAX DAILY DOSE OF 8 TABLETS. MDD:8 Rx By: Brenton Napoles; Dispense: 0 Days ; #:80 Tablet; Refill: 0;For: Aftercare following surgery of the musculoskeletal system, Low back pain; PHIL = N; Verified Transmission to [facility]13; Msg to Pharmacy: Reference #:[id number]; Last Updated By: EstorianMarcelLocation [employer]; 09/28/2020 4:18:45 PM X-Ray I Lumbosacral - [...] document was dictated and electronically signed using Nexis Vision software. A reasonable attempt at proof reading has been made to minimize errors. Please call with any questions. Signatures Electronically signed by : Cailin Wolfe; Oct 09 2020 9:32PM EST (Author) Electronically signed by : Eder Polo M.D.; Oct 11 2020 5:12PM EST Name Value Range Interpretation Code Description Data Tere rce(s) Supporting Document(s) ID Date Data Source [id number] 09/17/2020 09:07:59 PM EDT [facility] NT INFORMATIONPatient MRN Name Date of Age Gend*PT [id number] Eli Mesa 1975 45 years F IPPT Location Admission Date/Time Visit ID Attending [id number] 09/15/20 0524 --- --- EPI ID CSN Admitting Provider [id number] Eder Polo MD([id number]) Attestation signed by Eder Polo MD at 09/17/2020 9:07 PMSignature: FELICITA Hartate: September 17, 2020Time: 9:07 PM ORTHOPEDIC DISCHARGE SUMMARYPatient Name: Eli Mesa of : 1975 Age 45 yearsPrimary Physician: MARY HERNANDES MD PCP Kmbhwbfed Date: 09/15/2020 Discharge Date: 09/17/2020Admission Provider: Eder [...] details.Discharge disposition: She will be discharged from [facility] to home in stable condition.Discharge Weight Bearing [...] 242 (H) 09/16/2020Significant Imaging:noneConsults:noneSignature: [phone]: September 17, 2020Time: 7:43 AM Name Value Range Interpretation Code Description Data Tere rce(s) Supporting Document(s) ID Date Data Source [id number] 09/17/2020 09:43:58 AM EDT [facility] [place] [facility] [place] Name Value Range Interpretation Code Description Data Tere rce(s) Supporting Document(s) POC NOVA GLU 220 mg/dL (70-99) H [facility] [place] [facility] [place] PERFORMED BY [facility] CLINICAL STAFF ID Date Data Source [id number] 09/16/2020 05:30:06 PM EDT [facility] Name Value Range Interpretation Code Description Data Tere rce(s) Supporting Document(s) POC NOVA GLU 159 mg/dL (70-99) H [facility] [place] [facility] [place] [facility] CLINICAL STAFF ID Date Data Source [id number] 09/16/2020 02:24:04 PM EDT [facility] Name Value Range Interpretation Code Description Data Tere rce(s) Supporting Document(s) POC NOVA GLU 243 mg/dL (70-99) H [facility] [place] [facility] [place] [facility] CLINICAL STAFF ID Date Data Source [id number] 09/16/2020 09:41:27 AM EDT [facility] [place] [facility] [place] Name Value Range Interpretation Code Description Data Tere rce(s) Supporting Document(s) POC NOVA GLU 187 mg/dL (70-99) H [facility] [place] [facility] [place] [facility] CLINICAL STAFF ID Date Data Source [id number] 09/16/2020 06:01:04 AM EDT [facility] Name Value Range Interpretation Code Description Data Tere rce(s) Supporting Document(s) SODIUM 137 mmol/L (136-145) [facility] POTASSIUM 4.0 mmol/L (3.6-5.2) [facility] CHLORIDE 103 mmol/L (100-108) [facility] [place] [facility] CO2 25 mmol/L (22-31) [facility] ANION GAP 9 mmol/L (7-16) [facility] UREA NITROGEN 9 mg/dL (7-24) [facility] [place] [facility] CREATININE 0.72 mg/dL (0.60-1.00) [facility] BUN/CREAT RATIO 12.5 RATIO (10.0-20.0) [facility] GLUCOSE 242 mg/dL (70-99) H [facility] [place] [facility] [place] CALCIUM 7.9 mg/dL (8.4-10.2) L [facility] [place] [facility] [place] GFR >60 ml/min/1.73m2 (>59) [facility] [place] GFR ( AMER) >60 ml/min/1.73m2 (>59) [facility] [place] [facility] [place] GFR INTERPRETATION [facility] [place] --NORMAL KIDNEY FUNCTION OR MILD DISEASE - GFR >OR= 60CHRONIC KIDNEY DISEASE - GFR 15 - 59RENAL FAILURE - GFR <15 Est. GFR calculation based on the MDRDstudy equation, which assumes a steadystate for creatinine. Est. GFR should notbe used for medication dosing. ID Date Data Source [id number] 09/16/2020 05:36:10 AM EDT [facility] Name Value Range Interpretation Code Description Data Tere rce(s) Supporting Document(s) HCT 24.5 % (36.0-47.0) L [facility] [place] [facility] [place] ID Date Data Source [id number] 09/16/2020 01:11:20 AM EDT [facility] Name Value Range Interpretation Code Description Data Tere rce(s) Supporting Document(s) POC NOVA GLU 267 mg/dL (70-99) H [facility] [place] [facility] [place] [facility] CLINICAL STAFF ID Date Data Source [id number] 09/15/2020 10:09:14 PM EDT [facility] [place] [facility] [place] Name Value Range Interpretation Code Description Data Tere rce(s) Supporting Document(s) POC NOVA GLU 150 mg/dL (70-99) H [facility] [place] [facility] [place] [facility] CLINICAL STAFF ID Date Data Source [id number] 09/15/2020 04:11:02 PM EDT [facility] [place] [facility] [place] Name Value Range Interpretation Code Description Data Tere rce(s) Supporting Document(s) POC NOVA GLU 176 mg/dL (70-99) H [facility] [place] [facility] [place] PERFORMED BY [facility] CLINICAL STAFF ID Date Data Source [id number] 09/15/2020 12:50:48 PM EDT [address] [id number] Name: ELI MESADOB: 1975Sex: FOrdering Provider: EDER POLOAuthorizing Prov: EDER POLOReferrmartin Provider: Procedure Performed: XR OR SPINE LUMBAR CONTINUATIONExam Date: 09/15/2020 12:44MRN: [id number] Number: [id number] Class: InpatientAccount #: [id number] for Exam: Herniated nucleus pulposus, L5-S1 [M51.27]Spondylolisthesis, lumbosacral region [M43.17]Low back pain [M54.5]Technique: Fluoroscopy with no digital spot images obtained.Comparison: Prior radiographs performed earlier.Findings: Sequential small ltbar-yg-imqf images were obtained during posterior fusion at L5-S1. Sequential images show placement of pedicle screws. Interbody spacer is in satisfactory position. Anterolisthesis of L5 on S1 is again noted.IMPRESSION: Posterior fusion L5-S1 as above.Report electronically signed by: JESICA LAUGHLIN On 09/15/2020 12:50 PMWorkstation ID: [id number] Name Value Range Interpretation Code Description Data Tere rce(s) Supporting Document(s) ID Date Data Source [id number] 09/15/2020 12:37:02 PM EDT [facility] Name Value Range Interpretation Code Description Data Tere rce(s) Supporting Document(s) POC NOVA GLU 357 mg/dL (70-99) H [facility] [place] [facility] [place] PERFOR[facility] BY [facility] CLINICAL STAFF ID Date Data Source [id number] 09/15/2020 11:34:01 AM EDT [facility]annerPATIE NT INFORMATIONPatient MRN Name Date of Age Gend*PT [id number] Fredrick Mesarenetta Stanley 1975 45 years F IPPT Location Admission Date/Time Visit ID Attending ProviderPERIOP [place] 09/15/20 0524 --- Eder Polo MD([id number]) EPI ID CSN Admitting Provider [id number] Eder Polo MD([id number])Operative ReportPatient Name: Eli Mesa of : 1975 Age 45 yearsPrimary Physician: MARY HERNANDES MD PCP Ytxe of Surgery: 09/15/2020Diagnostic InformationPre-Op Diagnosis: L5-S1 spondylolisthesis; lumbar radiculopathyPost- Op Diagnosis: SameProcedure(s) Procedure(s):LUMBAR 5 SACRAL 1 LAMINECTOMY WITH FORAMINOTOMIES INTER BODY FUSION CAGEPLACEMENT, INSTRUMENTATION, ILIAC CREST BONE GRAFT, LOCAL BONE GRAFT (N/A)Surgical StaffSurgeon: MARGARETH Harturgical Staff: OR Anchor Tack Puller: Ivette Guardado RNRadiology Tech: Candido Pollock Relief Anchor Tack Puller: Isabel Swain RNOR Relief Scrub: Ivette Diane; Riya Black Scrub Person: Owen ChristianNeurophysiology Tech: MARGARETH Colvinurgical Channeler Insole: Donato Warner Stripping Shovel Oiler is a Physician's Associate Professor Of Violin ([place]), the Orthopedic Resident wasnot availableAnesthesiaAnesthesia Staff: Anesthesiologist: IYNKA SchroederRNA: Sarah Thorne CRNAStudent Nurse Presser Automatic: Clay Menesesesthesia: *Anesthesia ServicesOperative Description Procedure: 1. [...] placed in the pedicles of L5 and F6vdkmiqdmgnl. Checked with C-arm and noted to be [...] @ORSPECMN@Grafts/Implants:Implant Name Type Inv. Item Serial No. Folded Cloth Taper Lot No. LRB No. UsedCREO DLX THREADED [...] rce(s) Supporting Document(s) ID Date Data Source [id number] 09/15/2020 11:58:27 AM EDT [facility] [place] [facility] [place] Name Value Range Interpretation Code Description Data Tere rce(s) Supporting Document(s) POC NOVA GLU 365 mg/dL (70-99) H [facility] [place] [facility] [place] [facility] CLINICAL STAFF ID Date Data Source [id number] 09/15/2020 03:34:48 PM EDT [facility] [place] [facility] [place] Name Value Range Interpretation Code Description Data Tere rce(s) Supporting Document(s) POC NOVA GLU 266 mg/dL (70-99) H [facility] [place] [facility] [place] [facility] CLINICAL STAFF ID Date Data Source [id number] 09/15/2020 09:12:45 AM EDT [address] [address]Ehlmxhs Name: ELI MESAB: 1975Sex: FOrdering Provider: EDER POOLAuthorishelton Prov: EDER POLOReflissa Provider: Procedure Performed: XR OR SPINE LUMBARExam Date: 09/15/2020 09:07MRN: [id number] Number: [id number] Class: InpatientAccount #: [id number] for Exam: Herniated nucleus pulposus, L5-S1 [M51.27]Spondylolisthesis, [...] JESICA LAUGHLIN On 09/15/2020 9:12 AMWorkstation ID: [id number] - [id number] Name Value Range Interpretation Code Description Data Tere rce(s) Supporting Document(s) ID Date Data Source [id number] 09/15/2020 03:34:48 PM EDT [facility] [place] [facility] [place] Name Value Range Interpretation Code Description Data Tere rce(s) Supporting Document(s) POC NOVA GLU 185 mg/dL (70-99) H [facility] [place] [facility] [place] PERFORMED BY [facility] CLINICAL STAFF ID Date Data Source [id number] 09/15/2020 08:57:19 AM EDT [address] [id number] Name: ELI MESADOB: 1975Sex: FOrdering Provider: EDER POLOAuthorizing Prov: EDER POLOReferrmartin Provider: Procedure Performed: XR OR SPINE LUMBAR CONTINUATIONExam Date: 09/15/2020 08:47MRN: [id number] Number: [id number] Class: InpatientAccount #: [id number] for Exam: Herniated nucleus pulposus, L5-S1 [M51.27]Spondylolisthesis, [...] JESICA LAUGHLIN On 09/15/2020 8:57 AMWorkstation ID: [id number] - [id number] Name Value Range Interpretation Code Description Data Tere rce(s) Supporting Document(s) ID Date Data Source [id number] 09/15/2020 03:34:48 PM EDT [facility] Name Value Range Interpretation Code Description Data Tere rce(s) Supporting Document(s) POC NOVA GLU 175 mg/dL (70-99) H [facility] [place] [facility] [place] PERFORMED BY [facility] CLINICAL STAFF ID Date Data Source [id number] 09/15/2020 07:50:05 AM EDT [facility]annerPATIE NT INFORMATIONPatient MRN Name Date of Age Gend*PT [id number] Eli Mesa 1975 45 years F SDAPT Location Admission Date/Time Visit ID Attending Provider --- --- --- --- EPI ID CSN Admitting Provider [id number] ---AirwayPatient location during procedure: ORUrgency: electiveDifficult airway: [...] cmPlacement verified by: chest auscultation and + [id number]: equal breath sounds bilateralGrade view: grade I - full view of glottis Name Value Range Interpretation Code Description Data Tere rce(s) Supporting Document(s) ID Date Data Source [id number] 09/15/2020 06:49:25 AM EDT [facility] [place] [facility] Name Value Range Interpretation Code Description Data Tere rce(s) Supporting Document(s) POC NOVA GLU 133 mg/dL (70-99) H [facility] [place] [facility] [place] [facility] CLINICAL STAFF ID Date Data Source [id number] 09/15/2020 06:35:55 AM EDT [facility] [place] [facility] Name Value Range Interpretation Code Description Data Tere rce(s) Supporting Document(s) POC NOVA GLU 116 mg/dL (70-99) H [facility] [place] [facility] [place] [facility] CLINICAL STAFF ID Date Data Source [id number] 09/15/2020 06:26:12 AM EDT [facility]annerPATIE NT INFORMATIONPatient MRN Name Date of Age Gend*PT [id number] Balaji Eli J 1975 45 years F SDAPT Location Admission Date/Time Visit ID Attending [facility]20 0524 --- Eder Polo MD([id number]) EPI ID CSN Admitting Provider [id number] Eder Polo MD([id number])Pre-op note/discusson/H&P review:Long discussion today.Options were reviewedProcedure was [...] rce(s) Supporting Document(s) ID Date Data Source [id number] 09/15/2020 06:17:51 AM EDT [facility] [place] [facility] Name Value Range Interpretation Code Description Data Tere rce(s) Supporting Document(s) POC NOVA GLU 87 mg/dL (70-99) [facility] [place] [facility] [place] [facility] CLINICAL STAFF ID Date Data Source [id number] 09/15/2020 06:50:25 AM EDT [facility] [place] [facility] Name Value Range Interpretation Code Description Data Tere rce(s) Supporting Document(s) POC [facility] <5.0 IU/L [facility] [place] [facility] [place] INTERPRETATION:<5.0 NEGATIVE5.0- 25.0 INDETERMINATE>25.0 POSITIVELEVELS BETWEEN 5 AND 25 IU/L MAY INDICATEEARLY AND SHOULD BE REPEATED YAMEL BLOOD SAMPLE AFTER 48 HOURS.PERFORMED BY [facility] CLINICAL STAFF ID Date Data Source [id number] 09/15/2020 06:04:58 AM EDT [facility] [place] [facility] Name Value Range Interpretation Code Description Data Tere rce(s) Supporting Document(s) POC NOVA GLU 120 mg/dL (70-99) H [facility] [place] [facility] [place] [facility] CLINICAL STAFF ID Date Data Source [id number] 09/15/2020 05:54:25 AM EDT [facility] [place] [facility] Name Value Range Interpretation Code Description Data Tere rce(s) Supporting Document(s) POC NOVA GLU 37 mg/dL (70-99) LL [facility] [place] [facility] [place] [facility] CLINICAL STAFF ID Date Data Source [id number] 09/10/2020 10:24:00 AM EDT [facility] Name Value Range Interpretation Code Description Data Tere rce(s) Supporting Document(s) SARS coronavirus 2 RNA [facility] This lab was ordered by [facility] and reported by [facility]. ID Date Data Source [id number] 09/11/2020 12:07:56 PM EDT [facility] Name Value Range Interpretation Code Description Data Tere rce(s) Supporting Document(s) SARS-COV-2 CORONA [facility] MARICEL Not DetectedReference range: Not Detecte d This nucleic acid amplification test was developed and its performance characteristics determined by [facility]. Nucleic acid amplification tests include PCR and [...] detected) result in this assay. Performed At: [facility] [id number] Raymundo Valero MD Ph:[phone] ID Date Data Source [id number] 09/07/2020 03:35:13 PM EDT [facility] Name Value Range Interpretation Code Description Data Tere rce(s) Supporting Document(s) EKG [facility] UMPHEc0uEoXDUbUii6OtJoXmYZSjKJ4qige0C6E3yCCwQ7UvhMNua1ezZ5DpJ7YfPWJiTFUEHM3QgNBz jb2 [file] +spa director/finance/P/Pxwgn4+M/UZXwc2xKLKJ+nnM0s/pLosNyoIYzRbHUBnozqNdLsVdtDHnGEcZFJNdg4frwlPzg [file] akuU+tw4KoHqZ4qI8nNnai9b8p+foot specialist/4gls1uzciK/NU3z0ZLVZvMt902n5l9OkvovsRP8k2y5csk4Oew gyaBlqwdoSm5GgfMx0JuEe9myicnzZrrqKjZhg8oe7 ESkSE1uRNxlWCAny7/3IlW0h3K829Iu/m6jxmPJHoWMfbqlOJfMG9VxUQ8Ir7w6o3Q70JloI40xdmTye cW6abI1Nyp3gJYSYUrDG5jyz+2w2wuoEmZui8ts9P0+Q5otZp8l+dgYDQvh9tK4E+029fvihdIkiB8gM 7hlmjtKz0bsQ3v8fS3ndWXIIdG+ZC8dioTki+vO82q Nohemi/rx9NpMEdmYo5rTE0iGeEhmRD9rapgczi1ddKKnykyr+M5dDu+OCO7C7ysi1veMON/Jv1Nj2vEwWA [file] 6++5E6wVO1ZDFz1nMg2fBdzk14/w6r16C05qs8d4dh Z72d0T+1ezl/91c7bmbJ/IOkdRxXnGe3nuzQ9twjKuS28AiTlE6lh/H2Ibrw79kEv+u0XMLTvJjn3yzn wJJz8ZdDaFNXyeuNEf3uv1shw4eyl65eFZ/a6p/SvX///KjX7ef+SV7M2J/lmUrADiL83p+5/b1b/My/ 3zm/yXebl/bqD/Mi/52CHHrAqcZ81a+7oog0Q5iwBi di3BzkBtu+vj2bF/6SixKqdg8Cxk7j4/x/SVLIew6hp/c5ro4A4X/g30b6B/A+UG+xhi4lcnEVol3P2N NhuS71k/U7/S/91bW3ZGwMH5i5d9PZ9K30Ws/M4XMzki7fkNdksiSz8i6qqQ0EAZicrtf1ok3PVZq9K0 3CmVa+k4GldRaRFrCY6p55Hr0Rq134kmOCazl5epzU n/auuZs/5mfu+dEw89BdaG0gf9Z8n24JZTu2pETdRDDqdAK/hPbgpMrpqf1t3plS7fEQ6qfU/Oz53hsr Mw8lXPxy6j2pvi3usrR5hvRuRHeMlnqx8zO3SQ6yCByWWPCXs4Yd91RMcn8oHptcrdf+eyqJxTC/JqTQ NGuXMAT+DG7SJJPRWykQpG68opiWfjSeQ5VO5UuYiv HwV90C3nEgGknBSwbv8wRbnLmQsCit2290F/L+oDKmxSgc8Byc+I0XBnnf0I3ijuV4hcuXDZ3qsoyS9l kRV37UhzqzPdpkKFhkMBzzrglFXb8Koqute07HEADLcK5AzyhvPMfWqmz82+Do//Mi/3z3fxX+blzr3K c+3T+8h6soPm+vRiB67+7il3qO0r4dv9m/0r/f85x9 H7j7yK/H/tx45/pAf2g66x/zIv9/tbtbOe+ZWrdfPc8/SLVfmXebl/sTv/Xv66byxhvluag/a/zMv9c5 x8t9p0wecQzY+9XzcXiimzFDxDujX04mgkNidn387cnD91oEsdefKAryNinYKpikOh2dZnBfmmH3/fjh oONx4CUn80yQmNnE2pg2+gcn1jeHJ1k4w6KYhJU+foot specialist [file] ccVpSZWhIWTJBs4Jz175FEAuCVZGGcn+PxetxDJcrRoeJTPZFWO1KvqXKAELH9K= ID Date Data Source [id number] 09/07/2020 03:00:44 PM EDT [facility]anner[facility]IE NT INFORMATIONPatient MRN Name Date of Age Gend*PT [id number] Eli Mesa 1975 45 years F OPPT Location Admission Date/Time Visit ID Attending Provider --- --- --- Eder Polo MD([id number]) EPI ID CSN Admitting Provider [id number] Eder Polo MD([id number])HISTORY PHYSICALName: Eli Mesa : 1975 Sex: female [...] warm and dry.HEENT: Head is normocephalic, atraumatic. [place] conjunctivae. Anicteric sclerae.Pupils are equal, round, reactive [...] rce(s) Supporting Document(s) ID Date Data Source [id number] 09/07/2020 09:50:22 PM EDT [facility] [place] [facility] [place] Name Value Range Interpretation Code Description Data Tere rce(s) Supporting Document(s) HEMOGLOBIN A1C @ 7.7 % (4.0-6.0) H [facility] [place] [facility] Performed using Siemens [place]ar[place] immunoassa y.Care must be taken when interpreting PgD6pybwruvq in patients with a hemoglobin variantor decreased erythrocyte lifespan. Values 5.7 - 6.4% suggest prediabetes.Values >=6.5% are diagnostic for diabetes.REFERENCE: DIABETES CARE 2018: 41(S13-S27). EST AVERAGE GLUCOSE 174 mg/dL [facility] ID Date Data Source [id number] 09/07/2020 09:48:42 PM EDT [facility] [place] [facility] [place] SPEC EXP DATE 09/16/2020PATI ENT ABO/Rh O POSITIVEANTIBODY SCREEN NEGATIVETESTING SITE PERFORMED AT [address] [place], [place] [address]OOD BANK COMMENT BLOOD TYPE CONFIRMED. Name Value Range Interpretation Code Description Data Tere rce(s) Supporting Document(s) TYPE AND SCREEN [facility] [place] [facility] [place] ID Date Data Source [id number] 09/07/2020 07:31:58 PM EDT [facility] [place] [facility] [place] Name Value Range Interpretation Code Description Data Tere rce(s) Supporting Document(s) SODIUM 138 mmol/L (136-145) [facility] [place] [facility] POTASSIUM 4.3 mmol/L (3.6-5.2) [facility] [place] [facility] CHLORIDE 104 mmol/L (100-108) [facility] [place] [facility] CO2 26 mmol/L (22-31) [facility] [place] [facility] ANION GAP 8 mmol/L (7-16) [facility] [place] [facility] UREA NITROGEN 10 mg/dL (7-24) [facility] [place] [facility] CREATININE 0.86 mg/dL (0.60-1.00) [facility] [place] [facility] BUN/CREAT RATIO 11.6 RATIO (10.0-20.0) [facility] GLUCOSE 151 mg/dL (70-99) H [facility] [place] [facility] CALCIUM 8.8 mg/dL (8.4-10.2) [facility] [place] [facility] TOTAL PROTEIN 7.8 g/dL (6.4-8.2) [facility] [place] [facility] ALBUMIN 3.4 g/dL (3.5-4.6) L [facility] [place] [facility] GLOBULIN 4.4 g/dL (2.7-4.3) H [facility] [place] [facility] ALB/GLOB RATIO 0.8 RATIO [facility] ALKALINE PHOSPHATASE 104 U/L (45-117) [facility] BILIRUBIN,TOTAL 0.3 mg/dL (0.0-1.0) [facility] [place] [facility] [place] PLEASE NOTE:Total bilirubin results may be falselyelevated in patients taking Eltrombopag. AST (SGOT) 33 U/L (11-39) [facility] [place] [facility] ALT (SGPT) 39 U/L (12-78) [facility] GFR >60 ml/min/1.73m2 (>59) [facility] [place] [facility] GFR ( AMER) >60 ml/min/1.73m2 (>59) [facility] [place] [facility] GFR INTERPRETATION [facility] --NORMAL KIDNEY FUNCTION OR MILD DISEASE - GFR >OR= 60CHRONIC KIDNEY DISEASE - GFR 15 - 59RENAL FAILURE - GFR <15 Est. GFR calculation based on the MDRDstudy equation, which assumes a steadystate for creatinine. Est. GFR should notbe used for medication dosing. ID Date Data Source [id number] 09/07/2020 07:16:04 PM EDT [facility] [place] Name Value Range Interpretation Code Description Data Tere rce(s) Supporting Document(s) APTT 23.8 s (22.0-34.3) [facility] [place] Y ID Date Data Source [id number] 09/07/2020 07:16:04 PM EDT [facility] Name Value Range Interpretation Code Description Data Tere rce(s) Supporting Document(s) PT 10.6 s (9.2-11.9) [facility] [place] INR 1.02 [facility] [place] SUGGESTED THERAPEUTIC RANGES USING INR F ORSTABILIZED ANTICOAGULATED PATIENTS:STANDARD DOSE THERAPY INR 2.0-3.0 DVT, PE, PREVENT DVT OR EMBOLISMHIGH DOSE THERAPY INR 2.5-3.5 PREVENT EMBOLISM FROM MECHANICAL HEART VALVE ID Date Data Source [id number] 09/07/2020 07:07:38 PM EDT [facility] [place] Name Value Range Interpretation Code Description Data Tere rce(s) Supporting Document(s) WBC 8.7 10*3/uL (4.1-11.0) [facility] [place] [facility] [place] RBC 3.82 10*6/uL (4.00-5.40) L [facility] [place] [facility] HGB 8.9 g/dL (12.0-16.0) L [facility] [place] [facility] HCT 29.1 % (36.0-47.0) L [facility] [place] [facility] MCV 76.2 fL (80.0-95.0) L [facility] [place] [facility] MCH 23.4 pg (27.0-32.0) L [facility] [place] [facility] MCHC 30.7 g/dL (32.0-36.0) L [facility] RDW 19.1 % (10.5-14.5) H [facility] [place] [facility] PLT 338 10*3/uL (150-450) [facility] [place] [facility] MPV 9.1 fL (7.1-10.7) [facility] ID Date Data Source [id number] 09/08/2020 03:21:27 PM EDT [facility] [place] Name Value Range Interpretation Code Description Data Tere rce(s) Supporting Document(s) SPECIMEN DESCRIPTION [facility] STAPH SCREEN RESULTS (ONEGSA) [facility] COMMENT [facility] GENE TO DETECT STAPH AUREUS. (2) RT-P CR WAS PERFORMED FOR THE mecA AND SCCmec GENES TO DETECT METHICILLIN RESISTANCE IN STAPH AUREUS. 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 Patient is not working at this time [...] bowel or bladder dysfunction. Results/Data OtherMRI lumbar Religion 08/18/18: L5-S1 spinal listhesis; right L5-S1 disc herniationMRI lumbar SOS 08/14/2020: L5-S1 spondylolisthesis, L5-S1 disc herniation; bilateral foraminal narrowing. No significant change compared to MRI of 08/09/2018 AssessmentRight L5-S1 HNPL5-S1 spondylolisthesis PlanPatient is scheduled for L5-S1 laminectomy, foraminotomies, and possible fusion on 09/15/2020. She will follow-up postoperatively. This document was dictated and electronically signed using [employer] software. A reasonable attempt at proof reading has been made to minimize errors. Please call with any questions. Signatures Electronically signed by : Cailin Wolfe; Sep 14 2020 9:18PM EST (Author) Electronically signed by : Eder Polo M.D.; Sep 15 2020 11:43AM EST Name Value Range Interpretation Code Description Data Tere rce(s) Supporting Document(s) ID Date Data Source [id number] 09/02/2020 03:20:00 PM EDT [facility] ([facility] [...] strip Laboratory test res ult [facility] SRC:UC A courtesy copy of [...] fast stain.Ziehl-Neelsen Laboratory test result [facility] ([facility] SRC:UC A courtesy copy of [...] the patient, SRC:UC ID Date Data Source [id number] 09/02/2020 03:20:00 PM EDT [facility] ([facility] [...] the patient, SRC: ID Date Data Source [id number] 09/02/2020 03:20:00 PM EDT [facility] ([facility] [...] the patient, SRC: ID Date Data Source [id number] 09/02/2020 03:20:00 PM EDT [facility] ([facility] [...] the patient, SRC: ID Date Data Source [id number] 09/02/2020 03:20:00 PM EDT [facility] Name Value Range Interpretation Code Description Data Tere rce(s) Supporting Document(s) Hemoglobin A1c/Hemoglobin.total in Blood 8.1 % 4.8-5.6 [facility] SRC: A courtesy copy of this report laws s been sent to the patient, SRC: ID Date Data Source [id number] 09/03/2020 04:05:00 AM EDT [facility] Name Value [...] mg/dL 8.7-10.2 [facility] ID Date Data Source [id number] 09/03/2020 05:05:00 AM EDT [facility] Name Value Range Interpretation Code Description Data Tere rce(s) Supporting Document(s) Hemoglobin A1c 8.1 % 4.8-5.6 Above high normal [facility] Prediabetes: 5.7 - 6.4 Diabetes: >6.4 Glycemic control for adults with diabetes: <7.0 ID Date Data Source [id number] 09/03/2020 08:08:00 AM EDT [facility] Name Value Range Interpretation Code Description Data Tere rce(s) Supporting Document(s) Specific [place] 1.021 1.005-1.030 [facility] pH 6.0 5.0-7.5 [facility] [...] below: [facility] ID Date Data Source [id number] 09/04/2020 06:07:00 AM EDT [facility] Name Value Range Interpretation Code Description Data Tere rce(s) Supporting Document(s) Urine Culture, Routine Final report Abnormal (applies to non-numeric results) [facility] ID Date Data Source [id number] 09/03/2020 04:05:00 AM EDT [facility] Name Value [...] 0.0-0.1 [facility] ID Date Data Source [id number] 09/03/2020 08:08:00 AM EDT [facility] Name Value [...] None seen/Few [facility] ID Date Data Source [id number] 09/04/2020 06:07:00 AM EDT [facility] Name Value [...] (group A). ([facility]) ID Date Data Source [id number] 08/14/2020 12:45:04 PM EDT [facility] Rey: 1975Provider: June [...] The numbness is constant. Results/Data OtherMRI lumbar Religion 08/18/18: L5-S1 spinal listhesis; right L5-S1 disc [...] document was dictated and electronically signed using [employer] Vision software. A reasonable attempt at proof reading has been made to minimize errors. Please call with any questions. Signatures Electronically signed by : Eder Polo M.D.; Aug 14 2020 10:39AM EST (Author) Electronically signed by : Eder Polo M.D.; Aug 14 2020 12:45PM EST (Author) Name Value Range Interpretation Code Description Data Tere rce(s) Supporting Document(s) ID Date Data Source [id number] 08/14/2020 11:59:00 AM EDT [facility] PATIENT MR#: [id number] NAME: ELI MUJICA OF : 1975REFERRING PHYSICIAN: [...] conus is normal and terminates at the [id number] endplate level. Cauda equina is also normal.T12-L1: [...] rce(s) Supporting Document(s) ID Date Data Source [id number] 07/16/2020 11:36:39 AM EDT [facility] Eli Candido: 1975Provider: June Polo: 07/16/2020 History of [...] Grade 1 spondylolisthesis at L5- S1. [facility] L5-S1 spinal listhesis; right L5-S1 disc herniation Assessment 1. Herniated nucleus pulposus, L5-S1 (722.10) (M51.27) 2. Spondylolisthesis at L5-S1 level (756.12) (M43.17) 3. Low back pain (724.2) (M54.5) condition: Chronicetiology: age- related spine/joint degenerationlevels: L5-S1 Plan X-Ray I Lumbosacral - 2 views (XRays were ordered, obtained and interpreted today inthe office. Indication: pain/dysfunction.); Status:Complete; Done: [id number] Perform:SOS22; Due:[id number]; Last Updated By:Gaviota Cesar; 07/16/2020 11:06:11 AM;Ordered; For:Low back pain; Ordered By:Eder Polo; MRI (SOS) Referral Diagnostic Diagnostic Status: Need Information - FinancialAuthorization Requested for: [id number] Ordered;For: Low back pain; Ordered By: Eder Polo Performed: Order Comments: Wide Bore. Same Day Follow Up. Due: [id number]; Last Updated By: Inga Rutherford; 07/16/2020 11:35:00 [...] document was dictated and electronically signed using [employer] Vision software. A reasonable attempt at proof reading has been made to minimize errors. Please call with any questions. Signatures Electronically signed by : Eder Polo M.D.; Jul 16 2020 11:36AM EST (Author) Name Value Range Interpretation Code Description Data Tere rce(s) Supporting Document(s) ID Date Data Source [id number] 06/29/2020 04:17:00 PM EDT [facility] ([facility]) Name Value Range Interpretation Code Description Data Tere rce(s) Supporting Document(s) Hemoglobin A1c/Hemoglobin.total in Blood 7.2 [facility] ([facility]) Glucose [Mass/volume] in Serum or Plasma 230 [facility] ([facility]) ID Date Data Source [id number] 04/29/2020 05:04:00 AM EDT [facility] ([facility] Name Value Range Interpretation Code Description Data Tere rce(s) Supporting Document(s) Glucose [Mass/volume] in Capillary blood by Glucometer 172 mg/dL 70- 105 [facility] ([facility] ID Date Data Source [id number] 04/29/2020 03:56:00 AM EDT [facility] ([facility] Name Value Range Interpretation Code Description Data Tere rce(s) Supporting Document(s) Glucose [Mass/volume] in Capillary blood by Glucometer 114 mg/dL 70- 105 [facility] ([facility] ID Date Data Source [id number] 04/29/2020 02:31:00 AM EDT [facility] ([facility] Name Value Range Interpretation Code Description Data Tere rce(s) Supporting Document(s) Glucose [Mass/volume] in Capillary blood by Glucometer 91 mg/dL 70- 105 [facility] ([facility] ID Date Data Source [id number] 04/29/2020 01:12:00 AM EDT [facility] ([facility] Name Value Range Interpretation Code Description Data Tere rce(s) Supporting Document(s) Glucose [Mass/volume] in Capillary blood by Glucometer 31 mg/dL 70-105 Below lower panic limits [facility] ([facility] Doctor Notified Nurse Notified ID Date Data Source [id number] 04/29/2020 01:11:00 AM EDT [facility] ([facility] Name Value Range Interpretation Code Description Data Tere rce(s) Supporting Document(s) Glucose [Mass/volume] in Capillary blood by Glucometer 26 mg/dL 70-105 Below lower panic limits [facility] ([facility] Doctor Notified Nurse Notified ID Date Data Source [id number] 04/29/2020 12:06:00 AM EDT [facility] ([facility] Name Value Range Interpretation Code Description Data Tere rce(s) Supporting Document(s) Thyrotropin [Units/volume] in Serum or Plasma 10.700 uIU/ML 0.358-3.7 40 [facility] ([facility] Thyroxine (T4) free [Mass/volume] in Serum or Plasma 0.75 ng/dL 0.76- 1.46 [facility] ([facility] ID Date Data Source [id number] 04/29/2020 12:06:00 AM EDT [facility] ([facility] [...] Little GFR Left</content>
<content>ESRD GFR <15 on PMO LEAD</content>
<content></content> Sodium Level 141 meq/L 136-145 [facility] [...] [facility] ID Date Data Source [id number] 04/29/2020 12:06:00 AM EDT [facility] ([facility] [...] [facility] ID Date Data Source [id number] 04/29/2020 12:06:00 AM EDT [facility] ([facility] [...] Corpuscular Hemoglobin 23.4 pg 27.0-33.0 [facility] Platelet Count, Automated 394 10 150-450 [facility] ([facility] Neutrophils % 67.4 % 36.0-66.0 [facility] ([facility] Red Cell Distribution Width 18.6 % 11.5-14.5 [facility] ([facility] Eos % 2.0 % 0.0-3.0 [facility] Panola % 6.9 % 0.0-5.0 [facility] Lymph % 21.7 % 24.0-44.0 [facility] Nucleated Red Blood Cell % 0.0 % 0-0 [facility] ([facility] Immature Granulocyte % 0.1 % 0-3.0 [facility] ([facility] Baso % 1.9 % 0.0-1.0 [facility] Panola # 0.5 10 0.0-0.8 [facility] ([facility] Neutrophils # 4.6 10 1.5-8.5 [facility] ([facility] Lymph # 1.5 10 1.5-5.0 [facility] Eos # 0.1 10 0.0-0.5 [facility] ([facility] Baso # 0.1 10 0.0-0.2 [facility] ([facility] ID Date Data Source [id number] 04/28/2020 11:39:00 PM EDT [facility] ([facility] Name Value Range Interpretation Code Description Data Tere rce(s) Supporting Document(s) Glucose [Mass/volume] in Capillary blood by Glucometer 169 mg/dL 70- 105 [facility] ([facility] ID Date Data Source [id number] 03/16/2020 09:31:00 AM EDT [facility] ([facility]) Name Value Range Interpretation Code Description Data Tere rce(s) Supporting Document(s) Glucose [Mass/volume] in Serum or Plasma 325 [facility] ([facility]) Hemoglobin A1c/Hemoglobin.total in Blood 9.7 [facility] ([facility]) ID Date Data Source [id number] 03/16/2020 09:15:00 AM EDT [facility] ([facility]) Name Value Range Interpretation Code Description Data Tere rce(s) Supporting Document(s) Creatinine, Urine 68.2 mg/dL [facility] ([facility]) Lamont/Creat Ratio 236.0 MCG/MG 0.0-30.0 [facility] ([facility]) THE [employer] STATES THAT MICROALBUMINURIA IS PRESENT [...] [facility] ID Date Data Source [id number] 12/24/2019 07:41:00 PM EST [facility] ([facility]) Name Value Range Interpretation Code Description Data Tere rce(s) Supporting Document(s) Glucose [Mass/volume] in Capillary blood by Glucometer 87 70- 105 [facility] ([facility]) ID Date Data Source [id number] 12/24/2019 07:09:00 PM EST [facility] ([facility]) Name Value Range Interpretation Code Description Data Tere rce(s) Supporting Document(s) Glucose [Mass/volume] in Capillary blood by Glucometer 50 mg/dL 70- 105 [facility] ([facility]) Procedure Social History Code Duration Value Status Description Data Source(s ) Smoking 11/24/2020 04:07:00 PM EST Daily Smoker completed Daily [facility] Alcohol intake 09/16/2020 12:00:00 AM EDT No completed [facility] Cigarettes smoked current (pack per day) - Reported 09/16/20 12:00:00 AM EDT UNK completed [facility] Smoking 09/16/2020 12:00:00 AM EDT Current every day smoker co mpleted Current every day smoker [facility] Alcohol intake 09/07/2020 12:00:00 AM EDT No completed [facility] Cigarettes smoked current (pack per day) - Reported 09/07/20 12:00:00 AM EDT UNK completed [facility] Smoking 09/07/2020 12:00:00 AM EDT Current every day smoker co mpleted Current every day smoker [facility] Vital Signs ID Date Data Source UNK Name Value Range Interpretation Code Description Data Source(s) Body temperature 37.6 sandy Normal (applies to non-numeric results) 37.6 sandy [facility] Respiratory rate 20 min Normal (applies to non-numeric results) 20 min [facility] Heart rate 81 min Normal (applies to non-numeric resul ts) 81 min [facility] Diastolic blood pressure 73 mm[Hg] Normal (applies to non-numeric results) 73 mm[Hg] [facility] Systolic blood pressure 106 mm[Hg] Normal (applies t o non-numeric results) 106 mm[Hg] [facility] Deprecated Oxygen saturation in Capillary blood by Oximetry 98 % Normal (applies to non-numeric results) 98 % [facility] Body weight Measured 62.4 kg Normal (applies to non-num anabel results) 62.4 kg [facility] Body height 162.1536 cm Normal (applies to non-numeric res ults) 162.1536 cm [facility] Body mass index (BMI) [Ratio] 23.61 kg/m2 No rmal (applies to non-numeric results) 23.61 kg/m2 [facility] Body mass index (BMI) [Ratio] 24.4 kg/m2 24.4 k g/m2 [facility] ([facility] Mobile body weight 120 [lb_av] 120 [lb_av] [facility] [...] k g/m2 [facility] ([facility] Mobile body weight 120 [lb_av] 120 [lb_av] [facility] [...] k g/m2 [facility] ([facility] Mobile body weight 120 [lb_av] 120 [lb_av] [facility] [...] by Pulse oximetry 98 % 98 % [facility] Body temperature 36.89 Sandy 36.89 Sandy [facility] Heart rate 93 /min 93 /min [facility] Diastolic blood pressure 73 mm[Hg] 73 mm[Hg] [facility] Systolic blood pressure 136 mm[Hg] 136 mm[Hg] [facility] Respiratory rate 14 /min 14 /min [facility] Body mass index (BMI) [Ratio] 26.43 kg/m2 26.43 kg/m2 [facility] Body weight 69.854 kg 69.854 kg [facility] Body height 162.6 cm 162.6 cm [facility] Oxygen saturation in Arterial blood by Pulse oximetry 98 % 98 % [facility] Body mass index (BMI) [Ratio] 26.43 kg/m2 26.43 kg/m2 [facility] Body weight 69.854 kg 69.854 kg [facility] Body height 162.6 cm 162.6 cm [facility] Heart rate 97 /min 97 /min [facility] Diastolic blood pressure 70 mm[Hg] 70 mm[Hg] [facility] Systolic blood pressure 140 mm[Hg] 140 mm[Hg] [facility] Body mass index (BMI) [Ratio] 26.0 kg/m2 26.0 k g/m2 [facility] ([facility] Mobile body weight 120 [lb_av] 120 [lb_av] [facility] [...] Systolic blood pressure 143 mm[Hg] 143 mm[Hg] [facility] Oxygen saturation in Arterial blood by Pulse oximetry 99 % 99 % [facility] ([facility] Body mass index (BMI) [Ratio] 26.6 kg/m2 26.6 k g/m2 [facility] ([facility] Body weight 150.00 [lb_av] 150.00 [lb_av] [facility] T ([facility] Body height 63 [in_i] 63 [in_i] [facility] ([facility] 5'3" Heart rate 82 /min 82 /min [facility] ([facility] Diastolic blood pressure 70 mm[Hg] 70 mm[Hg] [facility] ([facility] Systolic blood pressure 142 mm[Hg] 142 mm[Hg] M [facility] ([facility] Oxygen saturation in Arterial blood by Pulse oximetry 98 % 98 % [facility] ([facility] Body mass index (BMI) [Ratio] 26.9 kg/m2 26.9 k g/m2 [facility] ([facility] Body weight 152.12 [lb_av] 152.12 [lb_av] [facility] T ([facility] Body height 63 [in_i] 63 [in_i] [facility] ([facility] 5'3" Heart rate 100 /min 100 /min [facility] ([facility] Diastolic blood pressure 88 mm[Hg] 88 mm[Hg] [facility] ([facility] Systolic blood pressure 146 mm[Hg] 146 mm[Hg] M [facility] ([facility] Body mass index (BMI) [Ratio] 25.4 kg/m2 25.4 k g/m2 [facility] ([facility] Body weight 149.25 [lb_av] 149.25 [lb_av] [facility] T ([facility] Body height 64.25 [in_i] 64.25 [in_i] [facility] ([facility] 5'4.25" Body mass index (BMI) [Ratio] 26.0 kg/m2 26.0 k g/m2 [facility] ([facility] Body weight 154.56 [lb_av] 154.56 [lb_av] [facility] T ([facility] ) Oxygen saturation in Arterial blood by Pulse oximetry 98 % 98 % [facility] ([facility] Body mass index (BMI) [Ratio] 26.5 kg/m2 26.5 k g/m2 [facility] ([facility] Body weight 149.50 [lb_av] 149.50 [lb_av] [facility] T ([facility] Body height 63 [in_i] 63 [in_i] [facility] ([facility] 5'3" Heart rate 96 /min 96 /min [facility] ([facility] Diastolic blood pressure 90 mm[Hg] 90 mm[Hg] [facility] ([facility] Systolic blood pressure 146 mm[Hg] 146 mm[Hg] M [facility] ([facility] Systolic blood pressure 146 mm[Hg] 146 mm[Hg] A [facility] ([facility]) Body height 64 [in_i] 64 [in_i] ALIYAH ([facility]) Diastolic blood pressure 78 mm[Hg] 78 mm[Hg] [facility] ([facility]) Body mass index (BMI) [Ratio] 23.9 kg/m2 23.9 k g/m2 [facility] ([facility] Mobile body weight 120 [lb_av] 120 [lb_av] MED[facility] [...] Body height 63 [in_i] 63 [in_i] [facility] ([facility]) 5'3" Heart rate 92 /min 92 /min [facility] ([facility]) Diastolic blood pressure 88 mm[Hg] 88 mm[Hg] [facility] ([facility]) Systolic blood pressure 146 mm[Hg] 146 mm[Hg] M [facility] ([facility]) Oxygen saturation in Arterial blood by Pulse oximetry 98 % 98 % [facility] ([facility]) Body mass index (BMI) [Ratio] 24.6 kg/m2 24.6 k g/m2 [facility] ([facility]) Body weight 139.00 [lb_av] 139.00 [lb_av] [facility] T ([facility]) Systolic blood pressure 147 mm[Hg] 147 mm[Hg] A THENA ([facility]) Body height 64 [in_i] 64 [in_i] ALIYAH ([facility]) Diastolic blood pressure 73 mm[Hg] 73 mm[Hg] [facility] ([facility]) Systolic blood pressure 147 mm[Hg] 147 mm[Hg] A [facility] ([facility]) Body height 64 [in_i] 64 [in_i] AL[facility]YAH ([facility]) Diastolic blood pressure 73 mm[Hg] 73 mm[Hg] [facility] ([facility]) Patient Treatment Plan of Care Planned Activity Planned Date Details Description Data Source (s) Acetaminophen 325 MG / Hydrocodone Bitartrate 5 MG Ora l Tablet 09/17/2020 12:00:00 AM EDT [facility] Acetaminophen 500 MG Oral Tablet [facility] meloxicam 15 MG Oral Tablet [facility] meloxicam 15 MG Oral Tablet [facility] ([facility])
[2020-12-04] MEDS ORDERED: GABAPENTIN 300 MG CAP PO SCH ×4 (21:00→22:48)
[2020-12-04] MEDS ORDERED: MIRTAZAPINE 15 MG TAB PO PRN (21:00)
[2020-12-04] MEDS ORDERED: MORPHINE 4 MG/ML 1ML VIAL/SYRINGE (J2270) IV SCH (22:00)
[2020-12-04] MEDS ORDERED: BISACODYL 10 MG SUPP PR PRN (22:30)
[2020-12-04] MEDS ORDERED: GLUCAGON INJ 1MG VIAL SC PRN (22:30)
[2020-12-04] MEDS ORDERED: MAALOX 30 ML SUSP *UDC PO PRN (22:30)
[2020-12-04] MEDS ORDERED: MOM 30ML SUSPENSION UDC PO PRN (22:30)
[2020-12-04] MEDS ORDERED: ACETAMINOPHEN TAB 650MG DOSE (2X325MG) PO PRN (22:30)
[2020-12-04] MEDS ORDERED: DEXTROSE 50% 50 ML SYRINGE IV PRN (22:30)
[2020-12-04] MEDS ORDERED: GLUCOSE 4GM CHEW TABLET PO PRN (22:30)
[2020-12-04] MEDS ORDERED: CALCIUM CARBONATE 500 MG CHEW U/D PO PRN (22:30)
[2020-12-04] MEDS ORDERED: MORPHINE 2 MG/ML 1ML VIAL (J2270) IV SCH (22:30)
[2020-12-04] MEDS ORDERED: ONDANSETRON 4 MG TAB PO PRN (22:30)
[2020-12-04] MEDS ORDERED: LABETALOL 100MG/20ML VIAL IV STA (22:46)
--- NOTE | 2020-12-04 22:53 | HPEPDOC ---
General Date of Admission Dec 04, 2020 at 22:20 Date of Service: Dec 04, 2020 Primary Care Physician: Mary García MD Attending Physician: Warren Mirza MD Chief Complaint The patient is a 45-year-old female admitted with a reason for visit of Acquired Bilateral Foot Drop,Intractable Back Pain. History of Present Illness History of present illness: Mrs. Carpio is a 45-year-old female with past medical history of DM type I, autoimmune thyroiditis, anxiety/depression, chronic low back pain who is presenting to [facility] 1 day after discharge from [facility] where she was admitted for surgery on November 06 for her lumbar disc bulges. She presents to [facility] today as she is unable to walk, she reports it is a complication from the surgery and has bilateral foot drop. He also has a wound VAC at that location of her surgery. She reports she was about to go to acute rehabilitation on November 12 when she was tested positive for covid and did not get rehabilitation at [facility]. She was discharged in a wheelchair. Patient reports having pain in the lumbar region, and numbness in the right leg extending from hip to the foot laterally and in the left leg from the knee to the foot. Past medical history: DM type I on insulin at home Autoimmune thyroiditis Anxiety/depression Chronic lower back pain Past surgical history: - She initially was taken to surgery on 09/15/2020 for lumbar disc bulges but did not get any hardware put in as her bones were delicate. - She was taken to surgery again on November 06 and had some hardware put in in her lumbar spine. - 3 Social history: Former smoker smoked for 32 years half pack a day. Quit a month ago Denies any alcohol use Denies any illicit, or recreational drug use Lives with her 17-year-old daughter in [place] Did not work for last 2-1/2 years due to back pain. Family history: Father healthy and alive Mother, breast cancer, COPD alive REVIEW OF SYSTEMS: Constitutional: Denies having fever, chills, night sweats, weight loss, headaches. Eyes: Denies blurry vision or double vision. ENT: Denies dysphagia, odynophagia, ear discharge. Cardiovascular: Denies chest pain or palpitations. Respiratory: Denies shortness of breath and cough. Gastrointestinal (GI): Denies any nausea or vomiting. Genitourinary: Denies dysuria, hematuria. Musculoskeletal: Reports having back pain Skin: Denies any rashes or ulcers. Hematology/Oncology: Denies any easy bleeding or bruising. All other review of systems is negative. PHYSICAL EXAMINATION: General: Patient is awake, alert, oriented times three, laying in bed , no apparent distress. Eyes: Conjunctiva clear, pupils equal round and reactive to light and accommodation. EOM full, Fundus: not visualized. ENT: Hearing Bilateral normal. No nasal deviation, oropharynx clear with no lesions/erythema. Cardiovascular: S1, S2, normal rhythm, no murmur. Respiratory: Chest is clear to auscultation bilaterally, no rhonchi, wheezes or rubs. Abdomen: Soft, bowel sounds positive, no bruits. Nontender on palpation. Extremities: No clubbing or cyanosis. No edema, no tenderness. Spine: No kyphosis, has opened wound with wound VAC in place in the lumbar spinal region, no redness or tenderness in the surrounding area Central nervous system ([employer]OCIATE): Awake, alert and fully oriented. Cranial nerves III-XII grossly intact. Motor: Strength normal in upper extremities, in the lower extremities patient is not able to dorsiflex her bilateral foot, plantar flexion preserved. Sensory: grossly normal to touch and decreased pin prick on bilateral dorsal and medial surface of foot. Cerebellar: Did not assess. Skin: No rashes, lesions, ulcerations, subcutaneous nodules or induration. Imaging: None done during this admission. Assessment: 45-year-old female patient with DM type I, autoimmune thyroiditis, anxiety who was discharged from [facility] yesterday who requires admission to our facility for further evaluation and management of intractable back pain and bilateral foot drop. She reports she was admitted to [facility] on November 06 to get the surgery done for her lumbar disc bulges following the surgery she had bilateral foot drop as a complication. He was supposed to go to acute rehabilitation but was tested positive for Covid [reportedly without any symptoms] and did not get acute rehabilitation. Plan: Bilateral foot drop, s/p lumbar spinal surgery complication: - Patient is unable to have any dorsiflexion of bilateral foot. - In our opinion she might benefit from acute rehabilitation. - PFS consult in place. - PT OT eval in place - Patient was getting IV ceftriaxone 2 g on discharge from [facility] not sure of the reasons why she was getting that medication at this point of time. In the morning please try to get discharge summary from [facility] in order to figure out that. For now will continue IV ceftriaxone 2 g. Acute on chronic pain: - Will give her morphine 2 mg every 4 hours for [id number] pain - Will do her morphine 4 mg every 6 hours for moderate to severe pain - If Patient is still complaining of pain. Give her tizanidine 4 mg by mouth. - She is on Tylenol 650 MG every 4 hours for mild pain. - Continue her gabapentin DM type I: - Started on insulin sliding scale. - Start her on Levemir 18 units DVT prophylaxis: -Teds and sequentials - Holding off on starting Lovenox at this time given her recent surgery within a month and the potential for bleeding in a noncompressible area (central nervous system). Home Medications Scheduled Ceftriaxone Sodium (Ceftriaxone) 1 Gm Vial, 2 GRAM IV DAILY, (Reported) home health nurse administered 12/04/20 Gabapentin (Gabapentin) 600 Mg Tablet, 600 MG PO TID, (Reported) with 300mg to =900mg Gabapentin (Gabapentin) 300 Mg Capsule, 300 CAP PO TID, (Reported) with 600mg to =900mg Insulin Glargine,Hum.rec.anlog (Basaglar Kwikpen U-100) 100 Unit/1 Ml Insuln.pen, 18 UNIT SC DAILY, (Reported) Insulin Lispro (Admelog) 100 Unit/1 Ml Vial, 1 DOSE SC AC, (Reported) PER SLIDING SCALE Mirtazapine (Remeron) 30 Mg Tablet, 30 MG PO QPM, (Reported) Morphine Sulfate (Morphine Sulfate ER 24HR) 30 Mg Cap.er.pel, 60 MG PO BID, (Reported) Psyllium Husk (with Sugar) (Metamucil Powder) 575 Gm Powder, 1 PKT PO DAILY, (Reported) Scheduled PRN Acetaminophen (Mapap) 500 Mg Capsule, 1,000 MG PO Q6HP PRN for PAIN, (Reported) Bisacodyl (Bisacodyl) 10 Mg Supp.rect, 10 MG VA DAILY PRN for CONSTIPATION, (Reported) Calcium Carbonate (Calcium Carbonate) 500 Mg Tablet, 500 MG PO Q4HP PRN for INDIGESTION, (Reported) Ondansetron HCl (Zofran) 4 Mg Tablet, 4 MG PO Q6-8HP PRN for nausea/vomiting, (Reported) Allergies Coded Allergies: No Known Allergies (Verified , 12/05/20) A-FIB/CHADSVASC A-FIB History Current/History of A-Fib/PAF?: No Vital Signs Vital Signs Date Time Temp Pulse Resp B/P (MAP) Pulse Ox O2 Delivery O2 Flow Rate FiO2 12/04/20 18:27 12/04/20 18:23 18 12/04/20 17:42 96.9 92 96 Room Air Laboratory Data Labs 24H Laboratory Tests 2 12/04/20 18:55: Nucleated Red Blood Cells % (auto) 0.2H, Prothrombin Time 14.2H, Prothromb Time International Ratio 1.08, Anion Gap 5L, Glomerular Filtration Rate > 60.0, Calcium Level 8.3L CBC/BMP Laboratory Tests 12/04/20 18:55 Plan / VTE VTE Prophylaxis Ordered?: Yes Attending Note Attending Note Family Medicine Attending Note: I was present on site to supervise Dr. Leyva. We discussed the history and exam. I confirmed the freed elements during my [id number] encounter with the patient. We conferred on the assessment and plan; I agree with the note as documented. Ms. Carpio is admitted for intractable back pain and further issues related to bilateral foot drop after her surgery. Once we get her pain under better control, I believe that acute rehabilitation may be the best option for her. I would recommend that that service be consulted soon to alert them of her presence and start the screening process. 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
--- OUTSIDE RECORDS SUMMARY | 2020-12-04 22:57 | CCD ---
Author Author [facility] Organization [facility] Address Unknown Phone Unavailable Care Team Providers Care Curing Machine Operator Name Role Phone NoyoYudelkaby PA Unavailable Unavailable [...] M Sandrine PA Unavailable Unavailable Scordo, M Sandrnie PA Unavailable Unavailable Scordo, M Sandrine PA [...] JANNETH MD Unavailable Unavailable Marylu ALONZO ZEINA SHUTTLE FINAL INSPECTOR Unavailable Unavailable Marylu ALONZO ZEINA SHUTTLE FINAL INSPECTOR Unavailable Unavailable CLINTON B ZEINA SHUTTLE FINAL INSPECTOR Unavailable Unavailable COOK, B ZEINA SHUTTLE FINAL INSPECTOR Unavailable Unavailable COOK, B ZEINA SHUTTLE FINAL INSPECTOR Unavailable Unavailable COOK, B ZEINA SHUTTLE FINAL INSPECTOR Unavailable Unavailable COOK, B ZEINA SHUTTLE FINAL INSPECTOR Unavailable Unavailable COOK, B ZEINA SHUTTLE FINAL INSPECTOR Unavailable Unavailable COOK, B ZEINA SHUTTLE FINAL INSPECTOR Unavailable Unavailable COOK, B ZEINA SHUTTLE FINAL INSPECTOR Unavailable Unavailable COOK, B ZEINA SHUTTLE FINAL INSPECTOR Unavailable Unavailable COOK, B ZEINA SHUTTLE FINAL INSPECTOR Unavailable Unavailable COOK, B ZEINA SHUTTLE FINAL INSPECTOR Unavailable Unavailable COOK, B ZEINA SHUTTLE FINAL INSPECTOR Unavailable Unavailable COOK, B ZEINA SHUTTLE FINAL INSPECTOR Unavailable Unavailable COOK, B ZEINA SHUTTLE FINAL INSPECTOR Unavailable Unavailable COOK, B ZEINA SHUTTLE FINAL INSPECTOR Unavailable Unavailable COOK, B ZEINA SHUTTLE FINAL INSPECTOR Unavailable Unavailable COOK, B ZEINA SHUTTLE FINAL INSPECTOR Unavailable Unavailable COOK, B ZEINA SHUTTLE FINAL INSPECTOR Unavailable Unavailable COOK, B ZEINA SHUTTLE FINAL INSPECTOR Unavailable Unavailable COOK, B ZEINA SHUTTLE FINAL INSPECTOR Unavailable Unavailable COOK, B ZEINA SHUTTLE FINAL INSPECTOR Unavailable Unavailable COOK, B ZEINA SHUTTLE FINAL INSPECTOR Unavailable Unavailable COOK, B ZEINA SHUTTLE FINAL INSPECTOR Unavailable Unavailable COOK, B ZEINA SHUTTLE FINAL INSPECTOR Unavailable Unavailable COOK, B ZEINA SHUTTLE FINAL INSPECTOR Unavailable Unavailable COOK, B ZEINA SHUTTLE FINAL INSPECTOR Unavailable Unavailable COOK, B ZEINA SHUTTLE FINAL INSPECTOR Unavailable Unavailable COOK, B ZEINA SHUTTLE FINAL INSPECTOR Unavailable Unavailable COOK, B ZEINA SHUTTLE FINAL INSPECTOR Unavailable Unavailable COOK, B ZEINA SHUTTLE FINAL INSPECTOR Unavailable Unavailable COOK, B ZEINA SHUTTLE FINAL INSPECTOR Unavailable Unavailable COOK, B ZEINA SHUTTLE FINAL INSPECTOR Unavailable Unavailable COOK, B ZEINA SHUTTLE FINAL INSPECTOR Unavailable Unavailable COOK, B ZEINA SHUTTLE FINAL INSPECTOR Unavailable Unavailable COOK, B ZEINA SHUTTLE FINAL INSPECTOR Unavailable Unavailable COOK, B ZEINA SHUTTLE FINAL INSPECTOR Unavailable Unavailable COOK, B ZEINA SHUTTLE FINAL INSPECTOR Unavailable Unavailable COOK, B ZEINA SHUTTLE FINAL INSPECTOR Unavailable Unavailable COOK, B ZEINA SHUTTLE FINAL INSPECTOR Unavailable Unavailable COOK, B ZEINA SHUTTLE FINAL INSPECTOR Unavailable Unavailable COOK, B ZEINA SHUTTLE FINAL INSPECTOR Unavailable Unavailable COOK, B ZEINA SHUTTLE FINAL INSPECTOR Unavailable Unavailable COOK, B ZEINA SHUTTLE FINAL INSPECTOR Unavailable Unavailable COOK, B ZEINA SHUTTLE FINAL INSPECTOR Unavailable Unavailable COOK, B ZEINA SHUTTLE FINAL INSPECTOR Unavailable Unavailable COOK, B ZEINA SHUTTLE FINAL INSPECTOR Unavailable Unavailable COOK, B ZEINA SHUTTLE FINAL INSPECTOR Unavailable Unavailable COOK, B ZEINA SHUTTLE FINAL INSPECTOR Unavailable Unavailable COOK, B ZEINA SHUTTLE FINAL INSPECTOR Unavailable Unavailable COOK, B ZEINA SHUTTLE FINAL INSPECTOR Unavailable Unavailable COOK, B ZEINA SHUTTLE FINAL INSPECTOR Unavailable Unavailable COOK, B ZEINA SHUTTLE FINAL INSPECTOR Unavailable Unavailable COOK, B ZEINA SHUTTLE FINAL INSPECTOR Unavailable Unavailable COOK, B ZEINA SHUTTLE FINAL INSPECTOR Unavailable Unavailable COOK, B ZEINA SHUTTLE FINAL INSPECTOR Unavailable Unavailable COOK, B ZEINA SHUTTLE FINAL INSPECTOR Unavailable Unavailable COOK, B ZEINA SHUTTLE FINAL INSPECTOR Unavailable Unavailable COOK, B ZEINA SHUTTLE FINAL INSPECTOR Unavailable Unavailable Marylu ALONZO ZEINA SHUTTLE FINAL INSPECTOR Unavailable Unavailable Marylu ALONZO ZEINA SHUTTLE FINAL INSPECTOR Unavailable Unavailable CLINTON, Marylu ZEINA SHUTTLE FINAL INSPECTOR Unavailable Unavailable Marylu ALONZO ZEINA SHUTTLE FINAL INSPECTOR Unavailable Unavailable MD ZAHRAA Unavailable Unavailable RING, GIA POTTER MD Unavailable Unavailable RING, GIA POTTER MD Unavailable Unavailable RING, GIA POTTER MD Unavailable Unavailable RING, GIA POTTER MD Unavailable Unavailable RING, GIA POTTER MD Unavailable Unavailable RING, GIA POTTER MD Unavailable Unavailable RING, GIA POTTER MD Unavailable Unavailable RING, GIA POTTER MD Unavailable Unavailable RING, GIA POTTER MD Unavailable Unavailable RING, GIA OPTTER MD Unavailable Unavailable RING, GIA POTTER MD [...] Unavailable Unavailable Lizeth POLO MD Unavailable Unavailable Lizeht POLO MD Unavailable Unavailable Lizeth POLO MD [...] POLO MD Unavailable Unavailable Jumalon, M Sruthi NURSE COMPANION Unavailable Unavailable Jumalon, M Sruthi NURSE COMPANION Unavailable Unavailable Jumalon, M Sruthi NURSE COMPANION Unavailable Unavailable Jumalon, M Sruthi NURSE COMPANION Unavailable Unavailable Jumalon, M Sruthi NURSE COMPANION Unavailable Unavailable Jumalon, M Sruthi NURSE COMPANION Unavailable Unavailable Jumalon, M Sruthi NURSE COMPANION Unavailable Unavailable Jumalon, M Sruthi NURSE COMPANION Unavailable Unavailable Jumalon, M Sruthi NURSE COMPANION Unavailable Unavailable Jumalon, M Sruthi NURSE COMPANION Unavailable Unavailable Jumalon, M Sruthi NURSE COMPANION Unavailable Unavailable Jumalon, M Sruthi NURSE COMPANION Unavailable Unavailable Jumalon, M Sruthi NURSE COMPANION Unavailable Unavailable Jumalon, M Srtuhi NURSE COMPANION Unavailable Unavailable Jumalon, M Sruthi NURSE COMPANION Unavailable Unavailable Jumalon, M Sruthi NURSE COMPANION Unavailable Unavailable Jumalon, M Sruthi NURSE COMPANION Unavailable Unavailable Jumalon, M Sruthi NURSE COMPANION Unavailable Unavailable Jumalon, M Sruthi NURSE COMPANION Unavailable Unavailable Jumalon, M Sruthi NURSE COMPANION Unavailable Unavailable Jumalon, M Sruthi NURSE COMPANION Unavailable Unavailable Jumalon, M Sruthi NURSE COMPANION Unavailable Unavailable Jumalon, M Sruthi NURSE COMPANION Unavailable Unavailable Jumalon, M Sruthi NURSE COMPANION Unavailable Unavailable Jumalon, M Sruthi NURSE COMPANION Unavailable Unavailable Jumalon, M Sruthi NURSE COMPANION Unavailable Unavailable Jumalon, M Sruthi NURSE COMPANION Unavailable Unavailable Jumalon, M Sruthi NURSE COMPANION Unavailable Unavailable Evan, A Elías PIZANO Unavailable [...] Elías PIZANO Unavailable Unavailable Evan, A Elías IPZANO Unavailable Unavailable Evan, A Elísa PIZANO Unavailable Unavailable Evan, A Elías PIZANO [...] Unavailable Unavailable Marylu Boyle MD Unavailable Unavailable Marlyu Boyle MD Unavailable Unavailable Marylu Byole MD Unavailable Unavailable Marylu Boyle MD Unavailable [...] Unavailable AMROMINJANNETH MD Unavailable Unavailable AMROMIN, JANNETH PIZNAO Unavailable Unavailable AMROMIN, JANNETH PIZANO Unavailable Unavailable MEDENT_104, NA Unavailable [phone] Kelly Hernandes MD Unavailable Unavailable Kelly Hernandes [...] Unavailable Ricky, Kelly Hernandez MD Unavailable Unavailable Rciky, Kelly Hernandez MD Unavailable Unavailable Ricky, Kelly [...] Hernandez MD Unavailable Unavailable Lara, L Bette NURSE COMPANION Unavailable Unavailable Lara, L Bette NURSE COMPANION Unavailable Unavailable Lara, L Bette NURSE COMPANION Unavailable Unavailable Lara, L Bette NURSE COMPANION Unavailable Unavailable Lara, L Bette NURSE COMPANION Unavailable Unavailable Lara, L Bette NURSE COMPANION Unavailable Unavailable Lara, L Bette NURSE COMPANION Unavailable Unavailable Lara, L Bette NURSE COMPANION Unavailable Unavailable Lara, L Bette NURSE COMPANION Unavailable Unavailable Lara, L Bette NURSE COMPANION Unavailable Unavailable Lara, L Bette NURSE COMPANION Unavailable Unavailable Lara, L Bette NURSE COMPANION Unavailable Unavailable Lara, L Bette NURSE COMPANION Unavailable Unavailable Lara, L Bette NURSE COMPANION Unavailable Unavailable Lara, L Bette NURSE COMPANION Unavailable Unavailable Lara, L Bette NURSE COMPANION Unavailable Unavailable Lara, L Bette NURSE COMPANION Unavailable Unavailable Lara, L Bette NURSE COMPANION Unavailable Unavailable Lara, L Bette NURSE COMPANION Unavailable Unavailable Lara, L Bette NURSE COMPANION Unavailable Unavailable Lara, L Bette NURSE COMPANION Unavailable Unavailable Lara, L Bette NURSE COMPANION Unavailable Unavailable Lara, L Bette NURSE COMPANION Unavailable Unavailable Lara, L Bette NURSE COMPANION Unavailable Unavailable Lara, L Bette NURSE COMPANION Unavailable Unavailable Lara, L Bette NURSE COMPANION Unavailable Unavailable Lara, L Bette NURSE COMPANION Unavailable Unavailable Lara, L Bette NURSE COMPANION Unavailable Unavailable Lara, L Bette NURSE COMPANION Unavailable Unavailable Lara, L Bette NURSE COMPANION Unavailable Unavailable Lara, L Bette NURSE COMPANION Unavailable Unavailable Lara, L Bette NURSE COMPANION Unavailable Unavailable Lara, L Bette NURSE COMPANION Unavailable Unavailable Lara, L Bette NURSE COMPANION Unavailable Unavailable Lara, L Bette NURSE COMPANION Unavailable Unavailable Lara, L Bette NURSE COMPANION Unavailable Unavailable Lara, L Bette NURSE COMPANION Unavailable Unavailable Lara, L Bette NURSE COMPANION Unavailable Unavailable Lara, L Bette NURSE COMPANION Unavailable Unavailable Lara, L Bette NURSE COMPANION Unavailable Unavailable Jamie, L Joy SHUTTLE FINAL INSPECTOR Unavailable Unavailable Jamie, L Joy SHUTTLE FINAL INSPECTOR Unavailable Unavailable Jamie, L Joy SHUTTLE FINAL INSPECTOR Unavailable Unavailable Jamie, L Joy SHUTTLE FINAL INSPECTOR Unavailable Unavailable Jamie, L Joy SHUTTLE FINAL INSPECTOR Unavailable Unavailable Jamie, L Joy SHUTTLE FINAL INSPECTOR Unavailable Unavailable Jamie, L Joy SHUTTLE FINAL INSPECTOR Unavailable Unavailable Jamie, L Joy SHUTTLE FINAL INSPECTOR Unavailable Unavailable Jamie, L Joy SHUTTLE FINAL INSPECTOR Unavailable Unavailable Jamie, L Joy SHUTTLE FINAL INSPECTOR Unavailable Unavailable Jamie, L Joy SHUTTLE FINAL INSPECTOR Unavailable Unavailable Jamie, L Joy SHUTTLE FINAL INSPECTOR Unavailable Unavailable Jamie, L Joy SHUTTLE FINAL INSPECTOR Unavailable Unavailable Jamie, L Joy SHUTTLE FINAL INSPECTOR Unavailable Unavailable Jamie, L Joy SHUTTLE FINAL INSPECTOR Unavailable Unavailable Jamie, L Joy SHUTTLE FINAL INSPECTOR Unavailable Unavailable Jamie, L Joy SHUTTLE FINAL INSPECTOR Unavailable Unavailable Jamie, L Joy SHUTTLE FINAL INSPECTOR Unavailable Unavailable Jamie, L Joy SHUTTLE FINAL INSPECTOR Unavailable Unavailable Jamie, L Joy SHUTTLE FINAL INSPECTOR Unavailable Unavailable Jamie, L Joy SHUTTLE FINAL INSPECTOR Unavailable Unavailable Jamie, L Joy SHUTTLE FINAL INSPECTOR Unavailable Unavailable Jamie, L Joy SHUTTLE FINAL INSPECTOR Unavailable Unavailable Jamie, L Joy SHUTTLE FINAL INSPECTOR Unavailable Unavailable Jamie, L Joy SHUTTLE FINAL INSPECTOR Unavailable Unavailable Jamie, L Joy SHUTTLE FINAL INSPECTOR Unavailable Unavailable Jamie, L Joy SHUTTLE FINAL INSPECTOR Unavailable Unavailable Jamie, L Joy SHUTTLE FINAL INSPECTOR Unavailable Unavailable Jamie, L Joy SHUTTLE FINAL INSPECTOR Unavailable Unavailable Jamie, L Joy SHUTTLE FINAL INSPECTOR Unavailable Unavailable Jamie, L Joy SHUTTLE FINAL INSPECTOR Unavailable Unavailable Jamie, L Joy SHUTTLE FINAL INSPECTOR Unavailable Unavailable Jamie, L Joy SHUTTLE FINAL INSPECTOR Unavailable Unavailable Jamie, L Joy SHUTTLE FINAL INSPECTOR Unavailable Unavailable Jamie, L Joy SHUTTLE FINAL INSPECTOR Unavailable Unavailable Jamie, L Joy SHUTTLE FINAL INSPECTOR Unavailable Unavailable Jamie, L Joy SHUTTLE FINAL INSPECTOR Unavailable Unavailable Agustin Fuentes MD Unavailable Unavailable [...] Vaneenenaam, Agustin Malik MD Unavailable Unavailable Vaneenenaam, gAustin Malik MD Unavailable Unavailable Vaneenenaam, Agustin Malik [...] Unavailable Lizeth SMITH MD Unavailable Unavailable Lizeth SMIHT MD Unavailable Unavailable Lizeth SMITH MD Unavailable [...] Unavailable Unavailable Lizeth SMITH MD Unavailable Unavailable iLzeth SMITH MD Unavailable Unavailable Lizeth SMITH MD [...] Lizeth SMITH MD Unavailable Unavailable Pleskach, Milady NURSE COMPANION Unavailable Unavailable Pleskach, Milady NURSE COMPANION Unavailable Unavailable Pleskach, Milady NURSE COMPANION Unavailable Unavailable Pleskach, Milady NURSE COMPANION Unavailable Unavailable Pleskach, Milady NURSE COMPANION Unavailable Unavailable Pleskach, Milady NURSE COMPANION Unavailable Unavailable Pleskach, Milady NURSE COMPANION Unavailable Unavailable Pleskach, Milady NURSE COMPANION Unavailable Unavailable Pleskach, Milady NURSE COMPANION Unavailable Unavailable Pleskach, Milady NURSE COMPANION Unavailable Unavailable Pleskach, Milady NURSE COMPANION Unavailable Unavailable Pleskach, Milady NURSE COMPANION Unavailable Unavailable Pleskach, Milady NURSE COMPANION Unavailable Unavailable Pleskach, Milady NURSE COMPANION Unavailable Unavailable Pleskach, Milady NURSE COMPANION Unavailable Unavailable Pleskach, Milady NURSE COMPANION Unavailable Unavailable Pleskach, Milady NURSE COMPANION Unavailable Unavailable Pleskach, Milady NURSE COMPANION Unavailable Unavailable Pleskach, Milady NURSE COMPANION Unavailable Unavailable Pleskach, Milady NURSE COMPANION Unavailable Unavailable Pleskach, Milady NURSE COMPANION Unavailable Unavailable Pleskach, Milady NURSE COMPANION Unavailable Unavailable Pleskach, Milady NURSE COMPANION Unavailable Unavailable Pleskach, Milady NURSE COMPANION Unavailable Unavailable Pleskach, Milady NURSE COMPANION Unavailable Unavailable Pleskach, Milady NURSE COMPANION Unavailable Unavailable Pleskach, Milady NURSE COMPANION Unavailable Unavailable Pleskach, Milady NURSE COMPANION Unavailable Unavailable Petrancosta, Bland Hanny PA-C Unavailable Unavailabl e Petrancosta, Bland Hanny PA-C Unavailable Unavailabl e Petrancosta, Bland Hanny PA-C Unavailable Unavailabl e Petrancosta, Bland Hanny PA-C Unavailable Unavailabl e Petrancosta, Bland Hanny PA-C Unavailable Unavailabl e Petrancosta, Bland Hanny PA-C Unavailable Unavailabl e Petrancosta, Bland Hanny PA-C Unavailable Unavailabl e Petrancosta, Bland Hanny PA-C Unavailable Unavailabl e Petrancosta, Bland Hanny PA-C Unavailable Unavailabl e Petrancosta, Bland Hanny PA-C Unavailable Unavailabl e Petrancosta, Bland Hanny PA-C Unavailable Unavailabl e Petrancosta, Bland Hanny PA-C Unavailable Unavailabl e Petrancosta, Bland Hanny PA-C Unavailable Unavailabl e Petrancosta, Bland Hanny PA-C Unavailable Unavailabl e Petrancosta, Bland Hanny PA-C Unavailable Unavailabl e Petrancosta, Bland Hanny PA-C Unavailable Unavailabl e Petrancosta, Bland Hanny PA-C Unavailable Unavailabl e Petrancosta, Bland Hanny PA-C Unavailable Unavailabl e Petrancosta, Bland Hanny PA-C Unavailable Unavailabl e Petrancosta, Phillip Hanny PA-C Unavailable Unavailabl e Petrancosta, Phillip Hanny PA-C Unavailable Unavailabl e Petrancosta, Bland Hanny PA-C Unavailable Unavailabl e ALAM, ANTHONY-E [...] is protected by Article 27-F of the [facility] Public Health law. If you continue you may have access to information: Regarding HIV / AIDS; Provided by facilities licensed or operated by the [facility] Office of Mental Health; or Provided by the [facility] Office for People With Developmental Disabilities. If such information is present, then the following [facility] mandated warning applies: This information has [...] law may result in a fine or fpc sentence or both. A general authorization for [...] Description Data Source(s) Unknown Male Problem MED[facility] ([facility] ) Unknown Male Problem [facility] ([facility] Unknown Unknown Problem [facility] ([facility]) mother,father Encounters Encounter Providers Location Date Indications Data Source(s ) Outpatient Attender: Joy Ayala NPReferrer: AUNG VITAL MD 01/05/2021 12:00:00 AM [facility] Outpatient Attender: Joy Ayala NPReferrer: AUNG VITAL MD 12/15/2020 12:00:00 AM [facility] Inpatient Attender: JANNETH Xiao matthew: AUNG VITAL MDAttender: TARIQ MENDIOLA MDAttender: LILIANA HARKINS DOAdmitter: LILIANA HARKINS DO 06:17:16 AM EST Lab [facility] Inpatient Attender: JANNETH castro: MD Butterfield: TARIQ MENDIOLA MDAttender: Elías Gordon MDAdmitter: Elías Gordon MD 1 01/07/2020 05:59:00 AM EST - 12/03/2020 04:05:00 PM EST LOW BACK PAIN, 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 [facility] LOW BACK PAIN, 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 Patient discharged. ( in Healthcare facility) Attender: JANNETH Bethea: MD [place]field: Elías Gordon MDAdmitter: Elías Gordon MDConsultant: Mary Hernandes MD 11/06/2020 05:59:[address] [facility] Inpatient Attender: TARIQ Bethea: Elías Gordon MD 11/06/2020 05:59:00 AM EST [facility] Outpatient Attender: LILIANA HARKINS DO 11/05/2020 09:35:27 AM EST Lab [facility] Outpatient Attender: LILIANA HARKINS DO 11/04/2020 07:52:40 PM EST [facility] Outpatient Attender: Elías Gordon MD 11/04/2020 06:0 9:00 PM EST TYPE AND SCREEN [facility] TYPE AND SCREEN Outpatient Attender: Elías Gordon MDReferrer: Mary vazquez MD 11/04/2020 03:54:47 PM EST [facility] Recurring Patient Attender: EDER POLO MDReferrer: EDER POLO MD 11/04/2020 02:34:59 PM EST [facility] Outpatient Attender: Elías Gordon MD 11/04/2020 12:0 8:00 PM EST L3-S1 POSTERIOR SPINAL FUSION WITH INSTRUMENTATION, POSTERIO [facility] L3-S1 POSTERIOR SPINAL FUSION WITH INSTR UMENTATION, POSTERIO Outpatient Attender: NA MEDENT_104 CMP Internal Med at [facility] 11/03/2020 10:15:00 AM EST [facility] ([facility] Outpatient Attender: Milady Galeas [facility] Main Office 11/02/2020 0 2:15:00 PM EST [facility] ([facility] Outpatient Attender: EDER MCLEANeferrer: Mary parks MD 10/29/2020 12:07:30 PM EST [facility] Recurring Patient Attender: EDER POLO MDReferrer: EDER POLO MD 10/29/2020 10:25:18 AM EST [facility] Outpatient Attender: Brenton Mccabeerrer: EDER HEDRICK MD 10/19/2020 09:08:01 PM EST [facility] Outpatient Attender: Milady Galeas [facility] Main Office 10/13/2020 1 2:15:00 PM EST [facility] ([facility] Outpatient Attender: Brenton Mccabeerrer: EDER HEDRICK MD 10/11/2020 05:12:57 PM EST [facility] Outpatient Attender: Hanny Tyson PA-C Main Office 09/23/2020 09:45:00 AM EST [facility] ([facility] Outpatient Attender: Brenton DALTONeferrer: EDER HEDRICK MD 09/15/2020 11:43:14 AM EDT [facility] Outpatient Admitter: EDER POLO MDReferrer: EDER POLO MD MOB-MOB.PAT 09/10/2020 11:13:22 AM EDT - 09/10/2020 11:13:27 AM EDT [facility] Outpatient Attender: EDER POLO MDAdmitter: EDER POLO MDReferrer: EDER POLO MD MOB-MOB.PAT 09/07/2020 02:12:47 PM EDT - 09/07/2020 03:00:43 PM EDT [facility] Outpatient Attender: Hanny Tyson PA-C Main Office 09/02/2020 02:15:00 PM EDT [facility] ([facility] Inpatient Attender: KEEGAN SMITH MDAt tender: EDER POLO MDAdmitter: EDER POLO MD [id number] 08/24/2020 08:19:05 AM EDT - 09/17/2020 12:54:00 PM EDT [facility] Patient discharged. Outpatient Attender: EDER POLO MDReferrer: EDER POLO MD 08/14/2020 10:39:10 AM EDT [facility] Outpatient Attender: EDER POLO MDReferrer: Xiomy Marques CASAC 07/16/2020 11:36:39 AM EDT [facility] Recurring Patient Attender: EDER POLO MDReferrer: EDER POLO MD 07/16/2020 10:42:02 AM EDT [facility] Outpatient Attender: Tracey Boyle MD Physical Therapy 06/29 03:45:00 PM EDT [facility] ([facility] ) Outpatient Referrer: Bette Lara NURSE COMPANION 05/11/2020 05:07 :00 AM EDT [facility] Outpatient Attender: [id number] [facility] 04/28/2020 07:41:57 PM EDT [facility] Outpatient Attender: ZEINA ALONZO NP Physical Therapy 04/17/2020 0 9:45:00 AM EDT [facility] ([facility]) Outpatient Attender: ZEINA ALONZO NP Physical Therapy 03/16/2020 0 9:15:00 AM EDT [facility] ([facility]) Outpatient Attender: Tracey Boyle MD Physical Therapy 02/12 02:30:00 PM EDT [facility] ([facility]) Outpatient Attender: Agustin Fuentes MD Physical Therap y 01/02/2020 09:15:00 AM EST [facility] ([facility]) Outpatient Referrer: Bette Lara NURSE COMPANION 01/01/2020 03:25 :00 PM EST [facility] Outpatient Attender: ZEINA ALONZO NP Physical Therapy 12/18/2019 0 1:30:00 PM EST [facility] ([facility]) Sruthi Maria, SHUTTLE FINAL INSPECTOR: [id number], [place] [address], Ph. Attender: Sruthi Maria [facility] [place] [facility] Office 11/25/2019 12:00:00 AM EST ATHE NA ([facility]) Outpatient Attender: Sandrine KELLEY Main Office 10/22/2019 07:45:00 AM EST [facility] ([facility] Outpatient Attender: ZEINA ALONZO NP Physical Therapy 10/16/2019 1 0:15:00 AM EST [facility] ([facility]) Sruthi Maria SHUTTLE FINAL INSPECTOR: [id number], [place] [address], Ph. Attender: Sruthi Maria [facility] Office 10/15/2019 12:00:00 AM EST [facility] NA ([facility]) Sruthi Maria, SHUTTLE FINAL INSPECTOR: [id number], [place] [address], Ph. Attender: Sruthi Maria [facility] - [facility] - Main Office 10/15/2019 12:00:00 AM EST [facility] NA ([facility]) Immunizations Vaccine Date Status Description Data Source(s) [...] NEEDED FOR NAUSEA AND VOMITING SOLD: 10/24/2020 [facility] pantoprazole 40 MG Delayed Release Oral Tablet PANTOPRAZOLE SODIUM 10/24/2020 12:00:00 AM EST tablet,delayed release (DR/EC) 30 T JAKE ONE TABLET BY MOUTH EVERY DAY TAKE ONE TABLET BY MOUTH EVERY DAY SOLD: 10/24/2020 [facility] Docusate Sodium 100 MG Oral Capsule [...] DAILY DOSE = TWO TABLETS SOLD: 10/24/2020 [facility] 7.5-325 mg 10/14/2020 12:00:00 AM EST [...] UNITS UNDER THE SKIN DAILY SOLD: 10/11/2020 [facility] Acetaminophen 325 MG / Oxycodone Hydrochloride [...] DAILY DOSE = EIGHT TABLETS SOLD: 09/30/2020 [facility] tizanidine 4 MG Oral Tablet TIZANIDINE [...] dose, Post-op
Post-op day #2Hold for BM
[facility] Medication administered onsite ondansetron (ZOFRAN) injection 8 mg [id number] 09/17/2020 10:12:0 3 AM EDT 8 mg Intravenous active 8 mg, In travenous, Every 4 hours PRN, nausea, vomiting, Starting Eli 09/17/20 at 1012, For 22 doses, Post-op
If unable to take PO
[facility] Medication administered onsite Calcium Carbonate 500 MG Chewable Tablet calcium carbonate (TUMS) chewable tablet 1,000 mg calcium carbonate (TUMS) chewable tablet 1,000 mg 08/21 10:12:03 AM EDT 1000 mg Oral active 1,000 mg, Oral, 2 times daily PRN, indigestion, heartburn, Starting Eli 09/17/20 at 1012, Post-op [facility] Medication administered onsite Acetaminophen 325 MG / [...] 09/17/20 at 1012, For 7 days, Post-op [facility] Medication administered onsite 1.5 ML Insulin Glargine [...] as needed Max Daily Amount: 12 tablets [facility] Acetaminophen 325 MG / Hydrocodone Bitartrate 5 [...] Starting Mon09/16/20 at 1231, For 7 days [facility] [facility] Medication administered onsite Acetaminophen 325 MG / Hydrocodone Rosanna trate 5 MG Oral Tablet HYDROcodone- acetaminophen (NORCO) 5-325 MG per tablet 1 tablet HYDROcodone-acetaminophen (NORCO) 5-325 MG per tablet 1 tablet 09/16/2020 12:31:29 PM EDT 1 { tbl} Oral active 1 tablet, Oral, Every 4 hours PRN, mild pain (1-3), moderate pain (4-6), Starting Mon09/16/20 at 1231, For 7 days
FOR MILD PAIN
[facility] Medication administered onsite pantoprazole 40 MG Delayed Release Oral Tablet pantoprazole (PROTONIX) EC tablet 40 mg pantoprazole (PROTONIX) EC tablet 40 mg 09/16/2020 11:00:00 AM E DT 40 mg Oral completed Gastroesophageal Reflux Diseas e 40 mg, Oral, Once, Indications: Gastroesophageal Reflux Disease, Mon09/16/20 at 1100, For 1 dose [facility] Gastroesophageal Reflux Disease Medication administered onsite Fluoxetine 20 MG Oral Capsule FLUoxetine (PROzac) caps ule 40 mg FLUoxetine (PROzac) capsule 40 mg 09/16/2020 09:00:00 AM EDT 40 mg Oral active 40 mg, Oral, Daily, First dose on Mon09/16/20 at 0900, Post-op [facility] Medication administered onsite POLYETHYLENE GLYCOL 3350 142 MG/ML Oral Solution polyethylene glycol (GLYCOLAX) packet 17 g polyethylene glycol (GLYCOLAX) packet 17 g 09/16/2020 09:00:00 AM EDT 17 g Oral active 17 g, Or al, Daily, First dose on Mon09/16/20 at 0900, Post-op
Start POD #1
[facility] Medication administered onsite Clonidine Hydrochloride 0.1 MG Oral Tablet cloNIDine ( CATAPRES) tablet 0.1 mg cloNIDine (CATAPRES) tablet 0.1 mg 09/16/2020 02:00:00 AM EDT 0.1 mg Oral completed 0.1 mg, Oral, Once, Mon09/16/20 at 0200, For 1 dose [facility] Medication administered onsite Magnesium Hydroxide 80 MG/ML Oral Suspen marco a magnesium hydroxide (MILK OF MAGNESIA) 400 MG/5ML suspension 30 mL magnesium hydroxide (MILK OF MAGNESIA) 4 00 MG/5ML suspension 30 mL 09/16/2020 12:00:00 AM EDT 30 mL Oral active 30 mL, Oral, Daily PRN, constipation, Starting Mon09/16/20 at 0000, Post- op
Start Post-op day #1. Hold for BM
[facility] Medication administered onsite Bisacodyl 10 MG Rectal Suppository bisacodyl (DULCOLAX ) suppository 10 mg bisacodyl (DULCOLAX) suppository 10 mg 09/16/2020 12:00:00 AM EDT 10 mg Rectal active 10 mg, Rectal, Daily PRN, constipation, for constipation unrelieved by miralax/MOM, Starting Mon09/16/20 at 0000, For 4 days, Post- op
For post-op day #1, #3, and #4Hold for BM
[facility] Medication administered onsite varenicline 1 MG Oral Tablet varenicline (CHANTIX) tab let 1 mg varenicline (CHANTIX) tablet 1 mg 09/15/2020 09:00:00 PM EDT 1 mg Oral active 1 mg, Oral, 2 times daily, First dose on Mon09/15/20 at 2100, Post-op
Give with meals and with a full glass of water.
[facility] Medication administered onsite Mirtazapine 30 MG Oral Tablet mirtazapine (REMERON) ta blet 15 mg mirtazapine (REMERON) tablet 15 mg 09/15/2020 09:00:00 PM EDT 15 mg Oral active 15 mg, Oral, Nightly, First dose on Mon09/15/20 at 2100, Post-op [facility] Medication administered onsite Cefazolin 1000 MG Injection [...] minutes. Use within 1 hour of reconstitution
[facility] Perioperative Pharmacoprophylaxis Medication administered onsite Docusate Sodium 50 MG / sennosides, [facility] 8.6 MG Oral Tablet senna-docusate (PERICOLACE) 8.6-50 MG 2 tablet senna-docusate (PERICOLACE) 8.6-50 MG 2 tablet 09/15/2020 09:00:00 PM EDT 2 {tbl} Oral active 2 tablet, Oral, Nightly, First dose on Mon09/15/20 at 2100, Post-op
hold for loose stools
[facility] Medication administered onsite Oxycodone Hydrochloride 10 MG Oral Tablet Oxycodone HC l TABS 10 mg Oxycodone HCl TABS 10 mg 09/15/2020 06:05:30 PM EDT 10 mg Oral aborte d 10 mg, Oral, Every 4 hours PRN, severe pain (7-10), Starting Mon09/15/20 at 1805, For 163 hours, Post-op [facility] Medication administered onsite Cefazolin 1000 MG Injection [...] minutes. Use within 1 hour of reconstitution
[facility] Perioperative Pharmacoprophylaxis Medication administered onsite gabapentin 300 MG Oral Capsule gabapentin (NEURONTIN) capsule 300 mg gabapentin (NEURONTIN) capsule 300 mg 09/15/2020 03:00:00 PM EDT 300 mg Oral active 300 mg, Oral, 3 times daily, First dose on Mon09/15/20 at 1500, Post-op [facility] Medication administered onsite Acetaminophen 500 MG Oral Tablet acetaminophen (TYLENO L) tablet 1,000 mg acetaminophen (TYLENOL) tablet 1,000 mg 09/15/2020 02:00:00 PM EDT 1000 mg Oral active 1,000 mg, Oral , Every 6 hours (relative), First dose on Mon09/15/20 at 1400, Post-op [facility] Medication administered onsite sodium chloride 0.9% (NS) infusion 3802-1735-04 09/15/2020 02:00:00 P M EDT Intravenous active at 100 mL/hr, Intravenous, Continuous, Starting Mon09/15/20 at 1400, Post-op [facility] Medication administered onsite 2 ML Metoclopramide 5 MG/ML Prefilled Sy ringe metoclopramide (REGLAN) injection 10 mg metoclopramide (REGLAN) injection 10 mg 09/15/2020 01:41:33 PM E DT 10 mg Intravenous completed 10 mg, I ntravenous, Every 6 hours PRN, nausea not relieved by Zofran, Starting Mon09/15/20 at 1341, For 24 hours, Post-op
If nausea not relieved by Zofran; Renal dosing per pharmacy
[facility] Medication administered onsite ondansetron (ZOFRAN) injection 4 mg [id number] 09/15/2020 01:41:3 3 PM EDT 4 mg Intravenous aborted 4 mg, In travenous, Every 4 hours PRN, nausea, vomiting, Starting Mon09/15/20 at 1341, Post-op
If unable to take PO
[facility] Medication administered onsite Mineral Oil 1000 MG/ML Enema mineral oil enema 1 enema mineral oil enema 1 enema 09/15/2020 01:41:33 PM EDT 1 {enema} Rectal active 1 enema, Rectal, Daily PRN, constipation, if unrelieved by dulcolax, Starting Mon09/15/20 at 1341, Post-op
hold for loose stools
[facility] Medication administered onsite Ondansetron 4 MG Disintegrating Oral Tab let ondansetron (ZOFRAN-ODT) disintegrating tablet 4 mg ondansetron (ZOFRAN-ODT) disintegrating tablet 4 mg 09/15/2020 01:41:33 PM EDT 4 mg Oral active 4 mg, Oral, Every 4 hours PRN, nausea, vomiting, Starting Mon09/15/20 at 1341, Post-op [facility] Medication administered onsite Oxycodone Hydrochloride 5 MG Oral Tablet oxyCODONE (ROXICODONE) immediate release tablet 5 mg oxyCODONE (ROXICODONE) immediate release tablet 5 mg 09/15/2020 01:41:33 PM EDT 5 mg Oral aborted 5 mg, Oral, Every 4 hours PRN, severe pain (7-10), Starting Mon09/15/20 at 1341, For 7 days, Post-op [facility] Medication administered onsite fentaNYL Citrate (PF) (SUBLIMAZE) injection 25 mcg [id number] -[id number] 09/15/2020 01:41:33 PM EDT 25 ug Intravenous active 25 mcg, Intravenous, Every 3 hours PRN, for severe breakthrough pain (7-10) if oral opioid ineffective, Starting Mon09/15/20 at 1341, For 7 days, Post-op [facility] Medication administered onsite Methocarbamol 500 MG Oral Tablet methocarbamol (ROBAXI N) tablet 500 mg methocarbamol (ROBAXIN) tablet 500 mg 09/15/2020 01:41:33 PM EDT 50 0 mg Oral active 500 mg, Oral, 4 times daily PRN, muscle spasms, Starting Mon09/15/20 at 1341, Post-op [facility] Medication administered onsite Insulin Glargine 100 UNT/ML Injectable S olution [Lantus] insulin glargine (LANTUS) injection 20 Units insulin glargine (LANTUS) injection 20 Units 09/15/2020 01:00:00 PM EDT 20 U Subcutaneous active 20 Units, Subcutaneous, Daily (Lantus), First dose on Mon09/15/20 at 1300, PACU & Post- op
Basal Insulin (Lantus) Adjustments based on AM Blood GlucoseBlood GlucoseAdjustmentLess than 70 mg/dl Nursing to initiate hypoglycemia [id number] to 100 mg/dl Pharmacy to decrease total daily d ose by 20%101 to 200 mg/dl No Change
[facility] Medication administered onsite Insulin Lispro 100 UNT/ML [...] <50%Eats Nothing (mg/dl) of meal of mealor [id number] units 2 units 0 ejtbr898- 1706 units 3 units 0 rujpc429-8222 units 4 units 1 hlypr319- 2708 units 5 units 2 -3027 units 6 units 3 xyclb959- 10844 units 7 units 4 -01094 units 8 units 5 units>420 call MD12 units 9 units 6 unitsTest glucose within 30 minutes of insulin administration.Administer insulin within 15 minutes (before or after) of the patient starting to eat.For patients that are NPO, use theNPO (correction) scale to cover POC glucose at 08:00, 12:00, 17:00.
[facility] Medication administered onsite fentaNYL Citrate (PF) (SUBLIMAZE) injection 25 mcg [id number] 09/15/2020 11:16:33 AM EDT 25 ug Intravenous aborted 25 mcg, Intravenous, Every 5 min PRN, moderate pain (4-6), Starting Mon09/15/20 at 1116, For 12 doses, PACU (only) [facility] Medication administered onsite HYDROmorphone (DILAUDID) injection 0.5 mg [id number] 09/15/2020 11:16:33 AM EDT 0.5 mg Intravenous aborted 0.5 mg, Intravenous, Every 5 min PRN, severe pain (7-10), Starting Mon09/15/20 at 1116, For 5 doses, PACU (only) [facility] Medication administered onsite Glucose 254 MG/ML Oral Solution [Dex4] glucose (DEX4) liquid 15 g glucose (DEX4) liquid 15 g 09/15/2020 06:20:59 AM EDT 15 g Oral compl eted 15 g, Oral, As needed, low blood sugar, Starting Mon09/15/20 at 0620, For 2 doses, Pre-op
Per policy glucose under 70
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
To be administered just prior to to transport to operating room
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
Swish for 30 seconds and spit in pre-induction unit
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
To be administered just prior to to transport to operating room
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
To be administered just prior to to transport to operating room
[facility] Chronic low back pain, unspecified back pain [...] ravenous, Continuous, Starting Mon09/15/20 at 0600, Pre-op [facility] Medication administered onsite 1 mg 07/16/2020 12:00:00 AM EDT tablet 56 TAKE ONE TABLET BY MOUTH TWICE A DAY TAKE ONE TABLET BY MOUTH TWICE A DAY SOLD: 07/16/2020 [facility] 100 unit/mL (3 mL) 07/01/2020 12:00:00 [...] 03/16/2020 12:00:00 AM EDT active [facility] ([facility]) 100 unit/mL (3 mL) [...] Lidocaine 12/24/2019 12:00:00 AM EST active [facility] ([facility] ) Menthol 0.04 MG/MG Topical Gel [Biofreeze] Biofreeze 12/24 12:00:00 AM EST active [facility] ( [facility]) Acetaminophen 325 MG / Hydrocodone Bitartrate 5 MG Oral Tabl et [facility] 12/24/2019 12:00:00 AM EST active [facility] ([facility] ) 4 % 12/24/2019 12:00:00 AM [...] BY MOUTH EVERY DAY NEEDED SOLD: 05/08/2020 [facility] 500 mg 12/04/2019 12:00:00 AM EST [...] Seen+++ 11/22/2019 12:00:00 AM EST completed [facility] ([facility]) 1 mg 11/22/2019 12:00:00 AM [...] 15 MG Oral Tablet ALIYAH ([facility]) meloxicam 15 MG Oral Tablet meloxicam (MOBIC) 15 MG ta blet meloxicam (MOBIC) 15 MG tablet 15 mg Oral aborted Take 15 mg by mouth daily [facility] Acetaminophen 500 MG Oral Tablet acetaminophen (TYLENO L) 500 MG tablet acetaminophen (TYLENOL) 500 MG tablet 1000 mg Oral aborted Take 1,000 mg by mouth every 6 (six) hours as needed for pain [facility] Insurance Providers Payer name Policy type / Coverage type Policy ID Covered republican ID Covered republican's relationship to jose Policy Jose Plan Information [facility] COMMUNITY PLAN [facility] [id number] [facility] [id number] Self [id number] A [id number] MEDICAID GME [id number] [facility](MCA[facility]) O [id number] S [id number] [facility] HEA [id number] S [id number] [facility] Comm Plan Medicaid F [id number] SELF [id number] [employer] HEA [id number] S [id number] [facility] Comm Plan Medicaid F [id number] SELF [id number] [facility] MEDICAID [id number] [facility] MEDICAID [id number] Jaycee [id number] INSURANCE COVID-19 COVID Jaycee C OVID INSURANCE COVID-19 [id number] Community Plan Commercial [id number] Self [id number] [facility] Community Plan Commercial [id number] Self [id number] Community Plan Commercial [id number] Self [id number] [facility] Community Plan Commercial [id number] Self [id number] [facility] Community Plan Commercial [id number] Self [id number] [facility] Community Plan Commercial [id number] Self [id number] [facility] MEDICAID PI PI Uhc Community Plan Commercial [id number] Self [id number] [facility] Community Plan Commercial [id number] Self [id number] [facility] Community Plan Commercial [id number] Self [id number] [facility] Community Plan Commercial [id number] Self [id number] [facility] Comm Plan Medicaid F [id number] SELF [id number] c Community Plan Commercial [id number] Self [id number] [facility] Community Plan Commercial [id number] Self [id number] c Community Plan Commercial [id number] Self [id number] c Community Plan Commercial [id number] Self [id number] [facility] COMMUNITY PLAN MCDHMO [id number] SP [id number] [facility] [employer] (HMO) [id number] Self [id number] [facility] [employer] (HMO) [id number] Self [id number] HMO BLUE [id number] SP [id number] Problems, Conditions, and Diagnoses Code Display Name Description Problem Type Effective Dates Data Source(s) E11.9 Diabetes mellitus Diabetes mellitus [id number] 09/15/2020 12:00:00 AM EDT [facility] M43.17 Spondylolisthesis of lumbosacral region Spondylolisthesis of lumbosacral region [id number] 09/15/2020 12:00:00 AM EDT [facility] M51.27 Herniated nucleus pulposus, L5-S1 Herniated nucl eus pulposus, L5-S1 [id number] 09/15/2020 12:00:00 AM EDT [facility] M54.5 Low back pain Low back pain [id number] 09/07/2020 12:00:00 AM EDT [facility] [id number] Type 2 diabetes mellitus Type 2 diabetes mellitus Prob jim 01/02/2020 12:00:00 AM EST [facility] ([facility] ) G89.29 Other chronic pain Other chronic pain Diagnosis 05:24:00 AM EDT [facility] M54.5 Low back pain Low back pain Diagnosis 09/15/2020 05:24:00 AM EDT [facility] M43.17 Spondylolisthesis, lumbosacral region Sp ondylolisthesis, lumbosacral region Diagnosis 09/15/2020 05:24:00 AM EDT [facility] 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, lumbosacral region Other intervertebral disc displacement, Diagnosis 09/15/2020 05:24:00 AM EDT [facility] U07.1 COVID-19 COVID-19 Diagnosis 09/10/2020 11:13:22 AM ED T [facility] Surgeries/Procedures Procedure Description Date Indications Data Source(s) AUTOGRAFT SPINE SURGERY BICORT/TRICORT SEP INC 020 12:00:00 AM EST [facility] ([facility]) Osteotomy Spine Posterior Or Posterolateral 3 Col, Lumbar 11/06/2020 12:00:00 AM EST [facility]) Arthrodesis,Combined Posterior Or Posterolateral Tech 11/06/2020 12:00:00 AM EST [facility]) ARTHDSIS POST/POSTERLATRL/POSTINTRBDYADL SPC/SEG 11/06 12:00:00 AM EST [facility] ([facility]) Spinal Instrumentation Posterior Segmental, 3-6 Segments 11/06/2020 12:00:00 AM EST [facility]) PELVIC FIXATION OTHER THAN SACRUM 11/06/2020 12:00:00 AM EST [facility] ([facility]) Insertion Interbody Biomechanical Device; Each Interspace 11/06/2020 12:00:00 AM EST [facility]) GLUC BLD GLUC MNTR DEV CLEARED FDA SPEC HOME USE POCT GLUCOSE Routine 09/17/2020 9:42 AM EDT 09/17/2020 01:42:00 PM EDT [facility] GLUC BLD GLUC MNTR DEV CLEARED FDA SPEC HOME USE POCT GLUCOSE Routine 09/16/2020 5:28 PM EDT 09/16/2020 09:28:00 PM EDT [facility] GLUC BLD GLUC MNTR DEV CLEARED FDA SPEC HOME USE POCT GLUCOSE Routine 09/16/2020 2:22 PM EDT 09/16/2020 06:22:00 PM EDT [facility] GLUC BLD GLUC MNTR DEV CLEARED FDA SPEC HOME USE POCT GLUCOSE Routine 09/16/2020 9:39 AM EDT 09/16/2020 01:39:00 PM EDT [facility] BLOOD COUNT HEMATOCRIT HEMATOCRIT Routine 09/16/2020 4:44 AM EDT 09/16/2020 08:44:00 AM EDT [facility] BASIC METABOLIC PANEL CALCIUM TOTAL BASIC METABOLIC PANEL Routi ne 09/16/2020 4:44 AM EDT 09/16/2020 08:44:00 AM EDT [facility] GLUC BLD GLUC MNTR DEV CLEARED FDA SPEC HOME USE POCT GLUCOSE Routine 09/16/2020 1:09 AM EDT 09/16/2020 05:09:00 AM EDT [facility] GLUC BLD GLUC MNTR DEV CLEARED FDA SPEC HOME USE POCT GLUCOSE Routine 09/15/2020 6:28 PM EDT 09/15/2020 10:28:00 PM EDT [facility] GLUC BLD GLUC MNTR DEV CLEARED FDA SPEC HOME USE POCT GLUCOSE Routine 09/15/2020 4:09 PM EDT 09/15/2020 08:09:00 PM EDT [facility] FLUOROSCOPY SPX <1 HOUR PHYSICIAN TIME XR OR SPINE LUMBAR VINICIO NUATION STAT 09/15/2020 12:44 PM EDT 09/15/2020 04:44:42 PM EDT [facility] GLUC BLD GLUC MNTR DEV CLEARED FDA SPEC HOME USE POCT GLUCOSE Routine 09/15/2020 12:34 PM EDT 09/15/2020 04:34:00 PM EDT [facility] GLUC BLD GLUC MNTR DEV CLEARED FDA SPEC HOME USE POCT GLUCOSE Routine 09/15/2020 11:26 AM EDT 09/15/2020 03:26:00 PM EDT [facility] GLUC BLD GLUC MNTR DEV CLEARED FDA SPEC HOME USE POCT GLUCOSE Routine 09/15/2020 10:13 AM EDT 09/15/2020 02:13:00 PM EDT [facility] GLUC BLD GLUC MNTR DEV CLEARED FDA SPEC HOME USE POCT GLUCOSE Routine 09/15/2020 9:12 AM EDT 09/15/2020 01:12:00 PM EDT [facility] XR OR SPINE LUMBAR XR OR SPINE LUMBAR STAT 09/15/2020 9:07 AM E DT 09/15/2020 01:07:11 PM EDT [facility] [place] RADEX SPINE 1 VIEW SPECIFY LEVEL XR OR SPINE LUMBAR CONTINUATIO N STAT 09/15/2020 8:47 AM EDT 09/15/2020 12:47:42 PM EDT [facility] GLUC BLD GLUC MNTR DEV CLEARED FDA SPEC HOME USE POCT GLUCOSE Routine 09/15/2020 7:59 AM EDT 09/15/2020 11:59:00 AM EDT [facility] ARTHRODESIS POSTERIOR INTERBODY LUMBAR LAMINECTOMY, S PINE, THORACOLUMBAR, 1 LEVEL, WITH DECOMPRESSION AND FUSION 09/15/2020 7:24 AM EDT Herniated nucleus pulposus, L5-S1 Spondylolisthesis, lumbosacral region Low back pain 09/15/2020 11:24:00 AM EDT - 09/15/2020 03:51:00 PM EDT Low back painSpondylolisthesis, lumbosacral regionHerniated nucleus pulposus, L5-S1 [facility] Low back pain Spondylolisthesis, lumbosacral region Herniated nucleus pulposus, L5-S1 GLUC BLD GLUC MNTR DEV CLEARED FDA SPEC HOME USE POCT GLUCOSE Routine 09/15/2020 6:48 AM EDT 09/15/2020 10:48:00 AM EDT [facility] GLUC BLD GLUC MNTR DEV CLEARED FDA SPEC HOME USE POCT GLUCOSE Routine 09/15/2020 6:33 AM EDT 09/15/2020 10:33:00 AM EDT [facility] GLUC BLD GLUC MNTR DEV CLEARED FDA SPEC HOME USE POCT GLUCOSE Routine 09/15/2020 6:16 AM EDT 09/15/2020 10:16:00 AM EDT [facility] POCT I-STAT BETA HCG POCT I-STAT BETA HCG Routine 09/15/2020 6:13 AM EDT 09/15/2020 10:13:00 AM EDT [facility] GLUC BLD GLUC MNTR DEV CLEARED FDA SPEC HOME USE POCT GLUCOSE Routine 09/15/2020 6:03 AM EDT 09/15/2020 10:03:00 AM EDT [facility] GLUC BLD GLUC MNTR DEV CLEARED FDA SPEC HOME USE POCT GLUCOSE Routine 09/15/2020 5:44 AM EDT 09/15/2020 09:44:00 AM EDT [facility] ECG ROUTINE ECG W/LEAST 12 LDS TRCG ONLY W/O I&R ECG 12-LEAD Routine 09/07/2020 3:01 PM EDT Chronic low back pain, unspecified back pain laterality, unspecified whether sciatica present Herniated nucleus pulposus, L5-S1 Spondylolisthesis, lumbosacral region 09/07/2020 07:01:06 PM EDT Spondylolisthesis, lumbosacral regionHerniated nucleus pulposus, [id number] low back pain, unspecified back pain laterality, unspecified whether sciatica present [facility] Spondylolisthesis, lumbosacral region Herniated nucleus pulposus, L5-S1 Chronic low back pain, unspecified back pain laterality, unspecified whether sciatica present THROMBOPLASTIN TIME PARTIAL PLASMA/WHOLE BLOOD APTT Routine 09/07/2020 2:50 PM EDT Chronic low back pain, unspecified back pain laterality, unspecified whether sciatica present Herniated nucleus pulposus, L5-S1 Spondylolisthesis, lumbosacral region 09/07/2020 06:50:00 PM EDT Spondylolisthesis, lumbosacral regionHerniated nucleus pulposus, L5-[id number] low back pain, unspecified back pain laterality, unspecified whether sciatica present [facility] Spondylolisthesis, lumbosacral region Herniated nucleus pulposus, L5-S1 Chronic low back pain, unspecified back pain laterality, unspecified whether sciatica present PROTHROMBIN TIME PROTIME-INR Routine 09/07/2020 2:50 PM EDT Chronic low back pain, unspecified back pain laterality, unspecified whether sciatica present Herniated nucleus pulposus, L5-S1 Spondylolisthesis, lumbosacral region 09/07/2020 06:50:00 PM EDT Spondylolisthesis, lumbosacral regionHerniated nucleus pulposus, [id number] low back pain, unspecified back pain laterality, unspecified whether sciatica present [facility] Spondylolisthesis, lumbosacral region Herniated nucleus pulposus, L5-S1 Chronic low back pain, unspecified back pain laterality, unspecified whether sciatica present BLOOD COUNT COMPLETE AUTOMATED CBC Routine 0 2:50 PM EDT Chronic low back pain, unspecified back pain laterality, unspecified whether sciatica present Herniated nucleus pulposus, L5-S1 Spondylolisthesis, lumbosacral region 09/07/2020 06:50:00 PM EDT Spondylolisthesis, lumbosacral regionHerniated nucleus pulposus, [id number] low back pain, unspecified back pain laterality, unspecified whether sciatica present [facility] Spondylolisthesis, lumbosacral region Herniated nucleus pulposus, L5-S1 Chronic low back pain, unspecified back pain laterality, unspecified whether sciatica present BLOOD TYPING ABO TYPE AND SCREEN Routine 09/07/2020 2:50 PM EDT Chronic low back pain, unspecified back pain laterality, unspecified whether sciatica present Herniated nucleus pulposus, L5-S1 Spondylolisthesis, lumbosacral region 09/07/2020 06:50:00 PM EDT Spondylolisthesis, lumbosacral regionHerniated nucleus pulposus, [id number] low back pain, unspecified back pain laterality, unspecified whether sciatica present [facility] Spondylolisthesis, lumbosacral region Herniated nucleus pulposus, L5-S1 Chronic low back pain, unspecified back pain laterality, unspecified whether sciatica present HEMOGLOBIN GLYCOSYLATED A1C HEMOGLOBIN A1C Routine 09/07/2020 2:50 PM EDT Chronic low back pain, unspecified back pain laterality, unspecified whether sciatica present Herniated nucleus pulposus, L5-S1 Spondylolisthesis, lumbosacral region 09/07/2020 06:50:00 PM EDT Spondylolisthesis, lumbosacral regionHerniated nucleus pulposus, [id number] low back pain, unspecified back pain laterality, unspecified whether sciatica present [facility] Spondylolisthesis, lumbosacral region Herniated nucleus pulposus, L5-S1 Chronic low back pain, unspecified back pain laterality, unspecified whether sciatica present COMPREHENSIVE METABOLIC PANEL COMPREHENSIVE METABOLIC PANEL Rou baltazar 09/07/2020 2:50 PM EDT Chronic low back pain, unspecified back pain laterality, unspecified whether sciatica present Herniated nucleus pulposus, L5-S1 Spondylolisthesis, lumbosacral region 09/07/2020 06:50:00 PM EDT Spondylolisthesis, lumbosacral regionHerniated nucleus pulposus, [id number] low back pain, unspecified back pain laterality, unspecified whether sciatica present [facility] Spondylolisthesis, lumbosacral region Herniated nucleus pulposus, L5-S1 Chronic low back pain, unspecified back pain laterality, unspecified whether sciatica present IADNA S AUREUS METHICILLIN RESIST AMP PROBE TQ STAPH PCR SCREEN Routine 09/07/2020 2:46 PM EDT Chronic low back pain, unspecified back pain laterality, unspecified whether sciatica present Herniated nucleus pulposus, L5-S1 Spondylolisthesis, lumbosacral region 09/07/2020 06:46:00 PM EDT Spondylolisthesis, lumbosacral regionHerniated nucleus pulposus, [id number] low back pain, unspecified back pain laterality, unspecified whether sciatica present [facility] Spondylolisthesis, lumbosacral region Herniated nucleus pulposus, L5-S1 Chronic low back pain, unspecified back pain laterality, unspecified whether sciatica present ECG ROUTINE ECG W/LEAST 12 LDS W/I&R 09/02/2020 12:00: 00 AM EDT [facility] ([facility] Diabetic Foot Exam 06/29/2020 12:00:00 AM EDT [facility] ([facility] Amb Glucose Monitoring Interpretation And Report 06/29 12:00:00 AM EDT [facility] ([facility]) Results ID Date Data Source [id number] 12/03/2020 12:05:29 PM EST [facility] Name Value Range Interpretation Code Description Data Tere rce(s) Supporting Document(s) POC GLUCOSE 152 mg/dL (70-99) H [facility] PERFORMED BY CLINICAL STAFF ID Date Data Source [id number] 12/03/2020 07:34:49 AM EST [facility] Name Value Range Interpretation Code Description Data Tere rce(s) Supporting Document(s) POC GLUCOSE 251 mg/dL (70-99) H [facility] PERFORMED BY CLINICAL STAFF ID Date Data Source [id number] 12/03/2020 06:38:08 AM EST [facility] Name Value Range Interpretation Code Description Data Tere rce(s) Supporting Document(s) SODIUM 135 mmol/L (136-145) L [facility] POTASSIUM 4.7 mmol/L (3.6-5.2) [facility] CHLORIDE 97 mmol/L (100-108) L [facility] CO2 30 mmol/L (22-31) [facility] ANION GAP 8 mmol/L (7-16) [facility] UREA NITROGEN 14 mg/dL (7-24) [facility] CREATININE 0.57 mg/dL (0.60-1.00) L [facility] BUN/CREAT RATIO 24.6 RATIO (10.0-20.0) [facility] GLUCOSE 189 mg/dL (70-99) H [facility] CALCIUM 8.4 mg/dL (8.4-10.2) [facility] GFR >60 ml/min/1.73m2 (>59) [facility] GFR ( AMER) >60 ml/min/1.73m2 (>59) [facility] GFR INTERPRETATION [facility] --NORMAL KIDNEY FUNCTION OR MILD DISEASE - GFR >OR= 60CHRONIC KIDNEY DISEASE - GFR 15 - 59RENAL FAILURE - GFR <15 Est. GFR calculation based on the MDRDstudy equation, which assumes a steadystate for creatinine. Est. GFR should notbe used for medication dosing. ID Date Data Source [id number] 12/03/2020 06:12:13 AM EST [facility] Name Value Range Interpretation Code Description Data Tere rce(s) Supporting Document(s) WBC 13.3 10*3/uL (4.1-11.0) H [facility] RBC 2.60 10*6/uL (4.00-5.40) L [facility] HGB 7.6 g/dL (12.0-16.0) L [facility] HCT 23.4 % (36.0-47.0) L [facility] MCV 90.1 fL (80.0-95.0) [facility] MCH 29.0 pg (27.0-32.0) [facility] MCHC 32.2 g/dL (32.0-36.0) [facility] RDW 23.0 % (10.5-14.5) H [facility] PLT 357 10*3/uL (150-450) [facility] MPV 8.3 fL (7.1-10.7) [facility] ID Date Data Source [id number] 12/03/2020 02:20:57 AM EST [facility] Name Value Range Interpretation Code Description Data Tere rce(s) Supporting Document(s) POC GLUCOSE 167 mg/dL (70-99) H [facility] PERFORMED BY CLINICAL STAFF ID Date Data Source [id number] 12/02/2020 10:37:03 PM EST [facility] Name Value Range Interpretation Code Description Data Tere rce(s) Supporting Document(s) POC GLUCOSE 225 mg/dL (70-99) H [facility] NOTIFIED NURSEPERFORMED BY CLINICAL S TAFF ID Date Data Source [id number] 12/02/2020 09:03:29 PM EST [facility] Name Value Range Interpretation Code Description Data Tere rce(s) Supporting Document(s) POC GLUCOSE 199 mg/dL (70-99) H [facility] NOTIFIED NURSEPERFORMED BY CLINICAL S TAFF ID Date Data Source [id number] 12/02/2020 07:52:00 PM EST [facility] Name Value Range Interpretation Code Description Data Tere rce(s) Supporting Document(s) POC GLUCOSE 125 mg/dL (70-99) H [facility] PERFORMED BY CLINICAL STAFF ID Date Data Source [id number] 12/02/2020 06:54:01 PM EST [facility] Name Value Range Interpretation Code Description Data Tere rce(s) Supporting Document(s) POC GLUCOSE 82 mg/dL (70-99) [facility] PERFORMED BY CLINICAL STAFF ID Date Data Source [id number] 12/02/2020 06:28:20 PM EST [facility] Name Value Range Interpretation Code Description Data Tere rce(s) Supporting Document(s) POC GLUCOSE 62 mg/dL (70-99) L [facility] PERFORMED BY CLINICAL STAFF ID Date Data Source [id number] 12/02/2020 06:05:59 PM EST [facility] Name Value Range Interpretation Code Description Data Tere rce(s) Supporting Document(s) POC GLUCOSE 53 mg/dL (70-99) L [facility] PERFORMED BY CLINICAL STAFF ID Date Data Source [id number] 12/02/2020 12:34:07 PM EST [facility] Name Value Range Interpretation Code Description Data Tere rce(s) Supporting Document(s) POC GLUCOSE 150 mg/dL (70-99) H [facility] NOTIFIED NURSEPERFORMED BY CLINICAL S TAFF ID Date Data Source [id number] 12/02/2020 09:40:13 AM EST [facility] Name Value Range Interpretation Code Description Data Tere rce(s) Supporting Document(s) POC GLUCOSE 229 mg/dL (70-99) H [facility] PERFORMED BY CLINICAL STAFF ID Date Data Source [id number] 12/02/2020 06:35:20 AM EST [facility] Name Value Range Interpretation Code Description Data Tere rce(s) Supporting Document(s) WBC 16.6 10*3/uL (4.1-11.0) H [facility] RBC 2.89 10*6/uL (4.00-5.40) L [facility] HGB 8.1 g/dL (12.0-16.0) L [facility] HCT 26.1 % (36.0-47.0) L [facility] MCV 90.1 fL (80.0-95.0) [facility] MCH 27.9 pg (27.0-32.0) [facility] MCHC 31.0 g/dL (32.0-36.0) L [facility] RDW 21.8 % (10.5-14.5) H [facility] PLT 401 10*3/uL (150-450) [facility] MPV 8.4 fL (7.1-10.7) [facility] ID Date Data Source [id number] 12/02/2020 02:58:06 AM EST [facility] Name Value Range Interpretation Code Description Data Tere rce(s) Supporting Document(s) POC GLUCOSE 168 mg/dL (70-99) H [facility] PERFORMED BY CLINICAL STAFF ID Date Data Source [id number] 12/01/2020 09:10:37 PM EST [facility] Name Value Range Interpretation Code Description Data Tere rce(s) Supporting Document(s) POC GLUCOSE 196 mg/dL (70-99) H [facility] NOTIFIED NURSEPERFORMED BY CLINICAL S TAFF ID Date Data Source [id number] 12/01/2020 08:13:36 PM EST [facility] Name Value Range Interpretation Code Description Data Tere rce(s) Supporting Document(s) POC GLUCOSE 192 mg/dL (70-99) H [facility] PERFORMED BY CLINICAL STAFF ID Date Data Source [id number] 12/01/2020 06:54:28 PM EST [facility] Name Value Range Interpretation Code Description Data Tere rce(s) Supporting Document(s) POC GLUCOSE 109 mg/dL (70-99) H [facility] PERFORMED BY CLINICAL STAFF ID Date Data Source [id number] 12/01/2020 05:51:02 PM EST [facility] Name Value Range Interpretation Code Description Data Tere rce(s) Supporting Document(s) POC GLUCOSE 81 mg/dL (70-99) [facility] PERFORMED BY CLINICAL STAFF ID Date Data Source [id number] 12/01/2020 05:27:42 PM EST [facility] Name Value Range Interpretation Code Description Data Tere rce(s) Supporting Document(s) POC GLUCOSE 69 mg/dL (70-99) L [facility] PERFORMED BY CLINICAL STAFF ID Date Data Source [id number] 12/01/2020 04:54:36 PM EST [facility] Name Value Range Interpretation Code Description Data Tere rce(s) Supporting Document(s) POC GLUCOSE 65 mg/dL (70-99) L [facility] PERFORMED BY CLINICAL STAFF ID Date Data Source [id number] 12/01/2020 12:17:36 PM EST [facility] Name Value Range Interpretation Code Description Data Tere rce(s) Supporting Document(s) POC GLUCOSE 196 mg/dL (70-99) H [facility] NOTIFIED NURSEPERFORMED BY CLINICAL S TAFF ID Date Data Source [id number] 12/01/2020 12:08:05 PM EST [facility] Name Value Range Interpretation Code Description Data Tere rce(s) Supporting Document(s) STOOL OCCULT BLOOD (NEG) [facility] ID Date Data Source [id number] 12/01/2020 08:17:17 AM EST [facility] Name Value Range Interpretation Code Description Data Tere rce(s) Supporting Document(s) POC GLUCOSE 360 mg/dL (70-99) H [facility] PERFORMED BY CLINICAL STAFF ID Date Data Source [id number] 12/01/2020 03:01:27 AM EST [facility] Name Value Range Interpretation Code Description Data Tere rce(s) Supporting Document(s) POC GLUCOSE 241 mg/dL (70-99) H [facility] NOTIFIED NURSEPERFORMED BY CLINICAL S TAFF ID Date Data Source [id number] 12/01/2020 02:52:46 AM EST [facility] Name Value Range Interpretation Code Description Data Tere rce(s) Supporting Document(s) POC GLUCOSE 97 mg/dL (70-99) [facility] PERFORMED BY CLINICAL STAFF ID Date Data Source [id number] 11/30/2020 05:47:50 PM EST [facility] Name Value Range Interpretation Code Description Data Tere rce(s) Supporting Document(s) POC GLUCOSE 146 mg/dL (70-99) H [facility] PERFORMED BY CLINICAL STAFF ID Date Data Source [id number] 11/30/2020 01:08:23 PM EST [facility] Name Value Range Interpretation Code Description Data Tere rce(s) Supporting Document(s) POC GLUCOSE 124 mg/dL (70-99) H [facility] NOTIFIED PROVIDERPERFORMED BY CLINICA L STAFF ID Date Data Source [id number] 11/30/2020 09:00:39 AM EST [facility] Name Value Range Interpretation Code Description Data Tere rce(s) Supporting Document(s) POC GLUCOSE 261 mg/dL (70-99) H [facility] PERFORMED BY CLINICAL STAFF ID Date Data Source [id number] 11/30/2020 06:49:24 AM EST [facility] Name Value Range Interpretation Code Description Data Tere rce(s) Supporting Document(s) SODIUM 138 mmol/L (136-145) [facility] POTASSIUM 4.7 mmol/L (3.6-5.2) [facility] CHLORIDE 101 mmol/L (100-108) [facility] CO2 30 mmol/L (22-31) [facility] ANION GAP 7 mmol/L (7-16) [facility] UREA NITROGEN 5 mg/dL (7-24) L [facility] CREATININE 0.52 mg/dL (0.60-1.00) L [facility] BUN/CREAT RATIO 9.6 RATIO (10.0-20.0) L [facility] GLUCOSE 245 mg/dL (70-99) H [facility] CALCIUM 7.9 mg/dL (8.4-10.2) L [facility] GFR >60 ml/min/1.73m2 (>59) [facility] GFR ( AMER) >60 ml/min/1.73m2 (>59) [facility] GFR INTERPRETATION [facility] --NORMAL KIDNEY FUNCTION OR MILD DISEASE - GFR >OR= 60CHRONIC KIDNEY DISEASE - GFR 15 - 59RENAL FAILURE - GFR <15 Est. GFR calculation based on the MDRDstudy equation, which assumes a steadystate for creatinine. Est. GFR should notbe used for medication dosing. ID Date Data Source [id number] 11/30/2020 06:26:41 AM EST [facility] Name Value Range Interpretation Code Description Data Tere rce(s) Supporting Document(s) WBC 9.0 10*3/uL (4.1-11.0) [facility] RBC 2.65 10*6/uL (4.00-5.40) L [facility] HGB 7.6 g/dL (12.0-16.0) L [facility] HCT 23.4 % (36.0-47.0) L [facility] MCV 88.6 fL (80.0-95.0) [facility] MCH 28.6 pg (27.0-32.0) [facility] MCHC 32.3 g/dL (32.0-36.0) [facility] RDW 20.1 % (10.5-14.5) H [facility] PLT 431 10*3/uL (150-450) [facility] MPV 8.1 fL (7.1-10.7) [facility] ID Date Data Source [id number] 11/30/2020 02:52:26 AM EST [facility] Name Value Range Interpretation Code Description Data Tere rce(s) Supporting Document(s) POC GLUCOSE 242 mg/dL (70-99) H [facility] NOTIFIED NURSEPERFORMED BY CLINICAL S TAFF ID Date Data Source [id number] 11/30/2020 01:12:33 AM EST [facility] Name Value Range Interpretation Code Description Data Tere rce(s) Supporting Document(s) POC GLUCOSE 123 mg/dL (70-99) H [facility] NOTIFIED NURSEPERFORMED BY CLINICAL S TAFF ID Date Data Source [id number] 11/29/2020 06:00:29 PM EST [facility] Name Value Range Interpretation Code Description Data Tere rce(s) Supporting Document(s) HGB 7.2 g/dL (12.0-16.0) L [facility] ID Date Data Source [id number] 11/30/2020 01:12:33 AM EST [facility] Name Value Range Interpretation Code Description Data Tere rce(s) Supporting Document(s) POC GLUCOSE 244 mg/dL (70-99) H [facility] PERFORMED BY CLINICAL STAFF ID Date Data Source [id number] 11/29/2020 01:33:56 PM EST [facility] Name Value Range Interpretation Code Description Data Tere rce(s) Supporting Document(s) POC GLUCOSE 186 mg/dL (70-99) H [facility] PERFORMED BY CLINICAL STAFF ID Date Data Source [id number] 11/29/2020 09:42:22 AM EST [facility] Name Value Range Interpretation Code Description Data Tere rce(s) Supporting Document(s) POC GLUCOSE 118 mg/dL (70-99) H [facility] PERFORMED BY CLINICAL STAFF ID Date Data Source [id number] 11/29/2020 07:32:04 AM EST [facility] Name Value Range Interpretation Code Description Data Tere rce(s) Supporting Document(s) HGB 7.0 g/dL (12.0-16.0) L [facility] ID Date Data Source [id number] 11/29/2020 04:33:34 AM EST [facility] Name Value Range Interpretation Code Description Data Tere rce(s) Supporting Document(s) POC GLUCOSE 128 mg/dL (70-99) H [facility] PERFORMED BY CLINICAL STAFF ID Date Data Source [id number] 11/29/2020 02:43:19 AM EST [facility] Name Value Range Interpretation Code Description Data Tere rce(s) Supporting Document(s) POC GLUCOSE 65 mg/dL (70-99) L [facility] PERFORMED BY CLINICAL STAFF ID Date Data Source [id number] 11/28/2020 10:58:44 PM EST [facility] Name Value Range Interpretation Code Description Data Tere rce(s) Supporting Document(s) POC GLUCOSE 100 mg/dL (70-99) H [facility] PERFORMED BY CLINICAL STAFF ID Date Data Source [id number] 11/28/2020 10:01:00 PM EST [facility] Name Value Range Interpretation Code Description Data Tere rce(s) Supporting Document(s) POC GLUCOSE 61 mg/dL (70-99) L [facility] PERFORMED BY CLINICAL STAFF ID Date Data Source [id number] 11/28/2020 05:13:49 PM EST [facility] Name Value Range Interpretation Code Description Data Tere rce(s) Supporting Document(s) POC GLUCOSE 197 mg/dL (70-99) H [facility] NOTIFIED NURSEPERFORMED BY CLINICAL S TAFF ID Date Data Source [id number] 11/28/2020 09:08:21 AM EST [facility] Name Value Range Interpretation Code Description Data Tere rce(s) Supporting Document(s) POC GLUCOSE 187 mg/dL (70-99) H [facility] NOTIFIED NURSEPERFORMED BY CLINICAL S TAFF ID Date Data Source [id number] 11/28/2020 08:31:40 AM EST [facility] Name Value Range Interpretation Code Description Data Tere rce(s) Supporting Document(s) SODIUM 140 mmol/L (136-145) [facility] POTASSIUM 4.6 mmol/L (3.6-5.2) [facility] CHLORIDE 105 mmol/L (100-108) [facility] CO2 29 mmol/L (22-31) [facility] ANION GAP 6 mmol/L (7-16) L [facility] UREA NITROGEN 3 mg/dL (7-24) L [facility] CREATININE 0.47 mg/dL (0.60-1.00) L [facility] BUN/CREAT RATIO 6.4 RATIO (10.0-20.0) L [facility] GLUCOSE 167 mg/dL (70-99) H [facility] CALCIUM 8.6 mg/dL (8.4-10.2) [facility] GFR >60 ml/min/1.73m2 (>59) [facility] GFR ( AMER) >60 ml/min/1.73m2 (>59) [facility] GFR INTERPRETATION [facility] --NORMAL KIDNEY FUNCTION OR MILD DISEASE - GFR >OR= 60CHRONIC KIDNEY DISEASE - GFR 15 - 59RENAL FAILURE - GFR <15 Est. GFR calculation based on the MDRDstudy equation, which assumes a steadystate for creatinine. Est. GFR should notbe used for medication dosing. ID Date Data Source [id number] 11/28/2020 08:08:54 AM EST [facility] Name Value Range Interpretation Code Description Data Tere rce(s) Supporting Document(s) WBC 7.6 10*3/uL (4.1-11.0) [facility] [place] RBC 2.79 10*6/uL (4.00-5.40) L [facility] HGB 7.7 g/dL (12.0-16.0) L [facility] HCT 24.7 % (36.0-47.0) L [facility] MCV 88.5 fL (80.0-95.0) [facility] MCH 27.4 pg (27.0-32.0) [facility] MCHC 31.0 g/dL (32.0-36.0) L [facility] RDW 19.1 % (10.5-14.5) H [facility] PLT 505 10*3/uL (150-450) H [facility] MPV 8.3 fL (7.1-10.7) [facility] ID Date Data Source [id number] 11/28/2020 02:55:00 AM EST [facility] Name Value Range Interpretation Code Description Data Tere rce(s) Supporting Document(s) POC GLUCOSE 190 mg/dL (70-99) H [facility] NOTIFIED NURSEPERFORMED BY CLINICAL S TAFF ID Date Data Source [id number] 11/28/2020 04:56:00 PM EST [facility] [id number] [place], [place] [id number] NAME: GERALD MESA OF : 1975REPORT: DISCHARGE SUMMARYPATIENT NUMBER: [id number] STATUS: IPMEDICAL RECORD NUMBER: [id number] OF ADMISSION: 11/06/2020DATE OF DISCHARGE:ROOM: 01ADDENDUM TO [...] FELICITA Leviictated: 11/27/2020 21:18DT: 11/27/2020 21:27Job #: [id number]: [facility] computer generated reports are notconfirmed or authenticated unless they are signed by the providerElectronically Authenticated and Edited by:PAYAL VITAL MD On 11/28/2020 04:56 PM EST Name Value Range Interpretation Code Description Data Tere rce(s) Supporting Document(s) ID Date Data Source [id number] 11/27/2020 09:24:17 PM EST [facility] Name Value Range Interpretation Code Description Data Tere rce(s) Supporting Document(s) POC GLUCOSE 172 mg/dL (70-99) H [facility] NOTIFIED NURSEPERFORMED BY CLINICAL S TAFF ID Date Data Source [id number] 11/27/2020 04:33:07 PM EST [facility] Name Value Range Interpretation Code Description Data Tere rce(s) Supporting Document(s) POC GLUCOSE 93 mg/dL (70-99) [facility] NOTIFIED NURSEPERFORMED BY CLINICAL S TAFF ID Date Data Source [id number] 11/27/2020 04:11:33 PM EST [facility] Name Value Range Interpretation Code Description Data Tere rce(s) Supporting Document(s) POC GLUCOSE 61 mg/dL (70-99) L [facility] NOTIFIED NURSEPERFORMED BY CLINICAL S TAFF ID Date Data Source [id number] 11/27/2020 04:16:15 PM EST [facility] Name Value Range Interpretation Code Description Data Tere rce(s) Supporting Document(s) POC GLUCOSE 41 mg/dL (70-99) LL [facility] NOTIFIED NURSEPERFORMED BY CLINICAL S TAFF ID Date Data Source [id number] 12/03/2020 10:21:35 AM EST [facility] SPECIMEN DESCRIPTION PERIPHERALSP ECIAL REQUESTS NONECULTURE RESULTS NO GROWTH 6 DAYSREPORT STATUS FINAL 12/03/2020 Name Value Range Interpretation Code Description Data Tere rce(s) Supporting Document(s) ID Date Data Source [id number] 12/03/2020 10:21:35 AM EST [facility] SPECIMEN DESCRIPTION PERIPHERALSP ECIAL REQUESTS NONECULTURE RESULTS NO GROWTH 6 DAYSREPORT STATUS FINAL 12/03/2020 Name Value Range Interpretation Code Description Data Tere rce(s) Supporting Document(s) ID Date Data Source [id number] 11/27/2020 12:56:15 PM EST [facility] Name Value Range Interpretation Code Description Data Tere rce(s) Supporting Document(s) POC GLUCOSE 143 mg/dL (70-99) H [facility] PERFORMED BY CLINICAL STAFF ID Date Data Source [id number] 11/27/2020 08:35:27 AM EST [facility] Name Value Range Interpretation Code Description Data Tere rce(s) Supporting Document(s) POC GLUCOSE 87 mg/dL (70-99) [facility] NOTIFIED NURSEPERFORMED BY CLINICAL S TAFF ID Date Data Source [id number] 11/27/2020 08:31:54 AM EST [facility] Name Value Range Interpretation Code Description Data Tere rce(s) Supporting Document(s) POC GLUCOSE 53 mg/dL (70-99) L [facility] NOTIFIED NURSEPERFORMED BY CLINICAL S TAFF ID Date Data Source [id number] 11/27/2020 09:15:37 AM EST [facility] Name Value Range Interpretation Code Description Data Tere rce(s) Supporting Document(s) POC GLUCOSE 44 mg/dL (70-99) LL [facility] NOTIFIED NURSEPERFORMED BY CLINICAL S TAFF ID Date Data Source [id number] 11/27/2020 07:31:15 AM EST [facility] Name Value Range Interpretation Code Description Data Tere rce(s) Supporting Document(s) SODIUM 141 mmol/L (136-145) [facility] POTASSIUM 3.4 mmol/L (3.6-5.2) L [facility] CHLORIDE 105 mmol/L (100-108) [facility] CO2 30 mmol/L (22-31) [facility] ANION GAP 6 mmol/L (7-16) L [facility] UREA NITROGEN 4 mg/dL (7-24) L [facility] CREATININE 0.49 mg/dL (0.60-1.00) L [facility] BUN/CREAT RATIO 8.2 RATIO (10.0-20.0) L [facility] GLUCOSE 52 mg/dL (70-99) L [facility] CALCIUM 8.1 mg/dL (8.4-10.2) L [facility] TOTAL PROTEIN 6.6 g/dL (6.4-8.2) [facility] ALBUMIN 2.2 g/dL (3.5-4.6) L [facility] GLOBULIN 4.4 g/dL (2.7-4.3) H [facility] ALB/GLOB RATIO 0.5 RATIO [facility] ALKALINE PHOSPHATASE 116 U/L (45-117) [facility] BILIRUBIN,TOTAL 0.1 mg/dL (0.0-1.0) [facility] PLEASE NOTE:Total bilirubin results may be falselyelevated in patients taking Eltrombopag. AST (SGOT) 17 U/L (11-39) [facility] ALT (SGPT) 14 U/L (12-78) [facility] GFR >60 ml/min/1.73m2 (>59) [facility] GFR ( AMER) >60 ml/min/1.73m2 (>59) [facility] GFR INTERPRETATION [facility] --NORMAL KIDNEY FUNCTION OR MILD DISEASE - GFR >OR= 60CHRONIC KIDNEY DISEASE - GFR 15 - 59RENAL FAILURE - GFR <15 Est. GFR calculation based on the MDRDstudy equation, which assumes a steadystate for creatinine. Est. GFR should notbe used for medication dosing. ID Date Data Source [id number] 11/27/2020 06:59:02 AM EST [facility] Name Value Range Interpretation Code Description Data Tere rce(s) Supporting Document(s) WBC 6.9 10*3/uL (4.1-11.0) [facility] [place] RBC 2.63 10*6/uL (4.00-5.40) L [facility] HGB 7.2 g/dL (12.0-16.0) L [facility] HCT 22.7 % (36.0-47.0) L [facility] MCV 86.3 fL (80.0-95.0) [facility] MCH 27.4 pg (27.0-32.0) [facility] MCHC 31.8 g/dL (32.0-36.0) L [facility] RDW 18.9 % (10.5-14.5) H [facility] PLT 531 10*3/uL (150-450) H [facility] MPV 8.3 fL (7.1-10.7) [facility] ID Date Data Source [id number] 11/27/2020 02:37:10 AM EST [facility] Name Value Range Interpretation Code Description Data Tere rce(s) Supporting Document(s) POC GLUCOSE 82 mg/dL (70-99) [facility] PERFORMED BY CLINICAL STAFF ID Date Data Source [id number] 11/26/2020 10:21:03 PM EST [facility] Name Value Range Interpretation Code Description Data Tere rce(s) Supporting Document(s) POC GLUCOSE 157 mg/dL (70-99) H [facility] NOTIFIED NURSEPERFORMED BY CLINICAL S TAFF ID Date Data Source [id number] 11/26/2020 06:33:02 PM EST [facility] Name Value Range Interpretation Code Description Data Tere rce(s) Supporting Document(s) POC GLUCOSE 120 mg/dL (70-99) [facility] PERFORMED BY CLINICAL STAFF ID Date Data Source [id number] 11/26/2020 11:50:05 AM EST [facility] Name Value Range Interpretation Code Description Data Tere rce(s) Supporting Document(s) POC GLUCOSE 171 mg/dL (70-99) [facility] PERFORMED BY CLINICAL STAFF ID Date Data Source [id number] 11/26/2020 09:52:50 AM EST [facility] Name Value Range Interpretation Code Description Data Tere rce(s) Supporting Document(s) POC GLUCOSE 150 mg/dL (70-99) [facility] PERFORMED BY CLINICAL STAFF ID Date Data Source [id number] 11/26/2020 02:52:24 PM EST [facility] Name Value Range Interpretation Code Description Data Tere rce(s) Supporting Document(s) RETIC % 2.0 % (0.6-2.1) [facility] PERFORMED AT [address] [place] [id number] RETIC INDEX 1.1 % (0.5-1.9) [facility] ABSOLUTE RETIC 0.06 10*6/uL (0.027-0.101) [facility] ID Date Data Source [id number] 11/26/2020 10:13:28 AM EST [facility] Name Value Range Interpretation Code Description Data Tere rce(s) Supporting Document(s) IRON,TOTAL @ 14 ug/dL (35-150) [facility] UIBC @ 203 ug/dL (130-375) [facility] TIBC @ 217 ug/dL (250-450) [facility] % SATURATION 6 % (12-50) [facility] [place] ID Date Data Source [id number] 11/26/2020 10:13:28 AM EST [facility] Name Value Range Interpretation Code Description Data Tere rce(s) Supporting Document(s) FERRITIN @ 63 ng/mL (8-252) [facility] ID Date Data Source [id number] 11/26/2020 07:23:15 AM EST [facility] Name Value Range Interpretation Code Description Data Tere rce(s) Supporting Document(s) LDH 152 U/L (84-246) [facility] ID Date Data Source [id number] 11/26/2020 07:23:15 AM EST [facility] Name Value Range Interpretation Code Description Data Tere rce(s) Supporting Document(s) SODIUM 139 mmol/L (136-145) [facility] POTASSIUM 3.8 mmol/L (3.6-5.2) [facility] CHLORIDE 104 mmol/L (100-108) [facility] CO2 26 mmol/L (22-31) [facility] ANION GAP 9 mmol/L (7-16) [facility] UREA NITROGEN 4 mg/dL (7-24) [facility] CREATININE 0.54 mg/dL (0.60-1.00) [facility] BUN/CREAT RATIO 7.4 RATIO (10.0-20.0) [facility] GLUCOSE 207 mg/dL (70-99) [facility] CALCIUM 7.8 mg/dL (8.4-10.2) [facility] GFR >60 ml/min/1.73m2 (>59) [facility] GFR ([facility]) >60 ml/min/1.73m2 (>59) [facility] GFR INTERPRETATION [facility] --NORMAL KIDNEY FUNCTION OR MILD DISEASE - GFR >OR= 60CHRONIC KIDNEY DISEASE - GFR 15 - 59RENAL FAILURE - GFR <15 Est. GFR calculation based on the MDRDstudy equation, which assumes a steadystate for creatinine. Est. GFR should notbe used for medication dosing. ID Date Data Source [id number] 11/26/2020 06:58:11 AM EST [facility] Name Value Range Interpretation Code Description Data Tere rce(s) Supporting Document(s) WBC 7.4 10*3/uL (4.1-11.0) [facility] [place] RBC 2.75 10*6/uL (4.00-5.40) [facility] HGB 7.5 g/dL (12.0-16.0) [facility] HCT 23.5 % (36.0-47.0) [facility] MCV 85.2 fL (80.0-95.0) [facility] MCH 27.3 pg (27.0-32.0) [facility] MCHC 32.0 g/dL (32.0-36.0) [facility] RDW 18.8 % (10.5-14.5) [facility] PLT 557 10*3/uL (150-450) [facility] MPV 8.2 fL (7.1-10.7) [facility] ID Date Data Source [id number] 11/26/2020 05:49:15 AM EST [facility] Name Value Range Interpretation Code Description Data Tere rce(s) Supporting Document(s) POC GLUCOSE 219 mg/dL (70-99) [facility] PERFORMED BY CLINICAL STAFF ID Date Data Source [id number] 11/25/2020 08:59:29 PM EST [facility] Name Value Range Interpretation Code Description Data Tere rce(s) Supporting Document(s) POC GLUCOSE 150 mg/dL (70-99) [facility] PERFORMED BY CLINICAL STAFF ID Date Data Source [id number] 11/25/2020 05:07:35 PM EST [facility] Name Value Range Interpretation Code Description Data Tere rce(s) Supporting Document(s) POC GLUCOSE 82 mg/dL (70-99) [facility] PERFORMED BY CLINICAL STAFF ID Date Data Source [id number] 11/25/2020 01:32:34 PM EST [facility] Name Value Range Interpretation Code Description Data Tere rce(s) Supporting Document(s) POC GLUCOSE 238 mg/dL (70-99) [facility] NOTIFIED NURSEPERFORMED BY CLINICAL S TAFF ID Date Data Source [id number] 11/25/2020 09:07:57 AM EST [facility] Name Value Range Interpretation Code Description Data Tere rce(s) Supporting Document(s) POC GLUCOSE 217 mg/dL (70-99) [facility] NOTIFIED NURSEPERFORMED BY CLINICAL S TAFF ID Date Data Source [id number] 11/25/2020 07:28:44 AM EST [facility] Name Value Range Interpretation Code Description Data Tere rce(s) Supporting Document(s) POC GLUCOSE 228 mg/dL (70-99) [facility] PERFORMED BY CLINICAL STAFF ID Date Data Source [id number] 11/25/2020 08:40:12 AM EST [facility] Name Value Range Interpretation Code Description Data Tere rce(s) Supporting Document(s) SODIUM 137 mmol/L (136-145) [facility] POTASSIUM 4.2 mmol/L (3.6-5.2) [facility] CHLORIDE 103 mmol/L (100-108) [facility] CO2 23 mmol/L (22-31) [facility] ANION GAP 11 mmol/L (7-16) [facility] UREA NITROGEN 7 mg/dL (7-24) [facility] CREATININE 0.59 mg/dL (0.60-1.00) [facility] BUN/CREAT RATIO 11.9 RATIO (10.0-20.0) [facility] GLUCOSE 242 mg/dL (70-99) [facility] CALCIUM 8.1 mg/dL (8.4-10.2) [facility] GFR >60 ml/min/1.73m2 (>59) [facility] GFR ( AMER) >60 ml/min/1.73m2 (>59) [facility] GFR INTERPRETATION [facility] --NORMAL KIDNEY FUNCTION OR MILD DISEASE - GFR >OR= 60CHRONIC KIDNEY DISEASE - GFR 15 - 59RENAL FAILURE - GFR <15 Est. GFR calculation based on the MDRDstudy equation, which assumes a steadystate for creatinine. Est. GFR should notbe used for medication dosing. ID Date Data Source [id number] 11/25/2020 07:53:36 AM EST [facility] Name Value Range Interpretation Code Description Data Tere rce(s) Supporting Document(s) WBC 8.5 10*3/uL (4.1-11.0) [facility] [place] RBC 2.56 10*6/uL (4.00-5.40) L [facility] HGB 7.2 g/dL (12.0-16.0) [facility] HCT 22.4 % (36.0-47.0) [facility] MCV 87.7 fL (80.0-95.0) [facility] MCH 28.1 pg (27.0-32.0) [facility] MCHC 32.0 g/dL (32.0-36.0) [facility] RDW 18.5 % (10.5-14.5) [facility] PLT 530 10*3/uL (150-450) [facility] MPV 8.6 fL (7.1-10.7) [facility] ID Date Data Source [id number] 11/25/2020 08:40:12 AM EST [facility] Name Value Range Interpretation Code Description Data Tere rce(s) Supporting Document(s) VANCOMYCIN TROUGH 11.1 ug/mL (10.0-20.0) [facility] ID Date Data Source [id number] 11/25/2020 02:30:36 AM EST [facility] Name Value Range Interpretation Code Description Data Tere rce(s) Supporting Document(s) POC GLUCOSE 202 mg/dL (70-99) [facility] NOTIFIED NURSEPERFORMED BY CLINICAL S TAFF ID Date Data Source [id number] 11/24/2020 11:08:59 PM EST [facility] Name Value Range Interpretation Code Description Data Tere rce(s) Supporting Document(s) POC GLUCOSE 88 mg/dL (70-99) [facility] NOTIFIED NURSEPERFORMED BY CLINICAL S TAFF ID Date Data Source [id number] 11/24/2020 11:08:59 PM EST [facility] Name Value Range Interpretation Code Description Data Tere rce(s) Supporting Document(s) POC GLUCOSE 66 mg/dL (70-99) [facility] [place] [facility] NOTIFIED NURSEPERFORMED BY CLINICAL S TAFF ID Date Data Source [id number] 11/24/2020 05:19:35 PM EST [facility] [place] [facility] Name Value Range Interpretation Code Description Data Tere rce(s) Supporting Document(s) POC GLUCOSE 158 mg/dL (70-99) [facility] [place] [facility] PERFORMED BY CLINICAL STAFF ID Date Data Source [id number] 11/25/2020 07:48:00 AM EST [facility] [id number] [place], [place] [address]RHQJYIA NAME: GERALD MESA OF : 1975REPORT: OPERATIONPATIENT NUMBER: [id number] STATUS: IPMEDICAL RECORD NUMBER: [id number] OF ADMISSION: 11/06/2020DATE OF DISCHARGE:ROOM: 02DATE OF [...] was applied, the patient was brought to [facility] in stable condition. I was present for the entire case and performedall critical aspects of the surgery.DICTATED BY: FELICITA Mcguireictated: 11/24/2020 12:47DT: 11/24/2020 12:55Job #: [id number]: [facility] computer generated reports are not confirmed orauthenticated unless they are signed by the providerElectronically Authenticated by:ELÍAS GORDON MD On 11/25/2020 07:48 AM EST Name Value Range Interpretation Code Description Data Tere rce(s) Supporting Document(s) ID Date Data Source [id number] 11/24/2020 12:57:38 PM EST [facility] [place] [facility] Name Value Range Interpretation Code Description Data Tere rce(s) Supporting Document(s) POC GLUCOSE 107 mg/dL (70-99) [facility] [place] [facility] NOTIFIED PROVIDERNOTIFIED NURSEPERFORMED BY CLINICAL STAFF ID Date Data Source [id number] 11/24/2020 05:03:18 PM EST [facility] [place] [facility] SPECIMEN DESCRIPTION SITE LUMBA WOUNDSPECIAL REQUESTS NONECULTURE RESULTS SPECIMEN IMPROPERLY COLLECTED. RED TOP SWAB WITH NO GEL WAS RECEIVED. REPORT STATUS FINAL 11/24/2020 Name Value Range Interpretation Code Description Data Tere rce(s) Supporting Document(s) ID Date Data Source [id number] 11/27/2020 08:46:13 AM EST [facility] [place] [facility] SPECIMEN DESCRIPTION SITE LUMBAU WOUNDSPECIAL REQUESTS NONECULTURE RESULTS NO ANAEROBES ISOLATEDREPORT STATUS FINAL 11/27/2020 Name Value Range Interpretation Code Description Data Tere rce(s) Supporting Document(s) ID Date Data Source [id number] 11/26/2020 08:52:32 AM EST [facility] [place] [facility] SPECIMEN DESCRIPTION SITE LUMBAU WOUNDSPECIAL [...] rce(s) Supporting Document(s) ID Date Data Source [id number] 11/26/2020 08:37:27 AM EST [facility] [place] [facility] CONNELL[facility] SPECIMEN DESCRIPTION SITE LUMBA WOUNDSPECIAL [...] rce(s) Supporting Document(s) ID Date Data Source [id number] 11/24/2020 11:20:27 AM EST [facility] [place] [facility] Name Value Range Interpretation Code Description Data Tere rce(s) Supporting Document(s) POC GLUCOSE 204 mg/dL (70-99) [facility] [place] [facility] PERFORMED BY CLINICAL STAFF ID Date Data Source [id number] 11/24/2020 10:04:18 AM EST [facility] [place] [facility] Name Value Range Interpretation Code Description Data Tere rce(s) Supporting Document(s) WBC 7.5 10*3/uL (4.1-11.0) [facility] [place] [facility] [place] RBC 2.60 10*6/uL (4.00-5.40) L [facility] HGB 7.4 g/dL (12.0-16.0) [facility] HCT 22.8 % (36.0-47.0) [facility] MCV 87.7 fL (80.0-95.0) [facility] MCH 28.4 pg (27.0-32.0) [facility] MCHC 32.4 g/dL (32.0-36.0) [facility] RDW 18.7 % (10.5-14.5) [facility] PLT 514 10*3/uL (150-450) [facility] MPV 8.3 fL (7.1-10.7) [facility] NEUT % 67.9 % (35.0-75.0) [facility] LYMPH % 10.5 % (16.0-52.0) [facility] MONO % 11.9 % (0.0-8.0) [facility] EOS % 8.3 % (0.0-5.0) [facility] BASO % 1.4 % (0.0-4.0) [facility] NEUT # 5.1 10*3/uL (1.8-7.7) [facility] LYMPH # 0.8 10*3/uL (1.2-4.8) [facility] MONO # 0.9 10*3/uL (0.0-0.8) [facility] Eosinophils [#/volume] in Blood by Automated count 0.6 10*3/uL (0.0-0 .5) [facility] [facility] BASO # 0.1 10*3/uL (0.0-0.2) [facility] ID Date Data Source [id number] 11/24/2020 09:41:20 AM EST [facility] Name Value Range Interpretation Code Description Data Tere rce(s) Supporting Document(s) SODIUM 137 mmol/L (136-145) [facility] POTASSIUM 4.2 mmol/L (3.6-5.2) [facility] CHLORIDE 101 mmol/L (100-108) [facility] CO2 27 mmol/L (22-31) [facility] ANION GAP 9 mmol/L (7-16) [facility] UREA NITROGEN 9 mg/dL (7-24) [facility] CREATININE 0.62 mg/dL (0.60-1.00) [facility] BUN/CREAT RATIO 14.5 RATIO (10.0-20.0) [facility] GLUCOSE 203 mg/dL (70-99) [facility] [facility] CALCIUM 8.4 mg/dL (8.4-10.2) [facility] GFR >60 ml/min/1.73m2 (>59) [facility] GFR ( AMER) >60 ml/min/1.73m2 (>59) [facility] GFR INTERPRETATION [facility] --NORMAL KIDNEY FUNCTION OR MILD DISEASE - GFR >OR= 60CHRONIC KIDNEY DISEASE - GFR 15 - 59RENAL FAILURE - GFR <15 Est. GFR calculation based on the MDRDstudy equation, which assumes a steadystate for creatinine. Est. GFR should notbe used for medication dosing. ID Date Data Source [id number] 11/24/2020 08:14:41 AM EST [facility] [place] [facility] Name Value Range Interpretation Code Description Data Tere rce(s) Supporting Document(s) POC GLUCOSE 205 mg/dL (70-99) [facility] PERFORMED BY CLINICAL STAFF ID Date Data Source [id number] 11/24/2020 02:53:23 AM EST [facility] Name Value Range Interpretation Code Description Data Tere rce(s) Supporting Document(s) POC GLUCOSE 176 mg/dL (70-99) [facility] NOTIFIED NURSEPERFORMED BY CLINICAL S TAFF ID Date Data Source [id number] 11/24/2020 01:24:00 AM EST [facility] Name Value Range Interpretation Code Description Data Tere rce(s) Supporting Document(s) POC GLUCOSE 157 mg/dL (70-99) [facility] [place] [facility] PERFORMED BY CLINICAL STAFF ID Date Data Source [id number] 11/23/2020 06:32:12 PM EST [facility] Name Value Range Interpretation Code Description Data Tere rce(s) Supporting Document(s) POC GLUCOSE 90 mg/dL (70-99) [facility] [place] [facility] PERFORMED BY CLINICAL STAFF ID Date Data Source [id number] 11/29/2020 12:17:34 PM EST [facility] [facility] SPECIMEN DESCRIPTION PERIPHERALSP ECIAL REQUESTS NONECULTURE RESULTS NO GROWTH 6 DAYSREPORT STATUS FINAL 11/29/2020 Name Value Range Interpretation Code Description Data Tere rce(s) Supporting Document(s) ID Date Data Source [id number] 11/29/2020 12:17:34 PM EST [facility] SPECIMEN DESCRIPTION PERIPHERALSP ECIAL REQUESTS NONECULTURE RESULTS NO GROWTH 6 DAYSREPORT STATUS FINAL 11/29/2020 Name Value Range Interpretation Code Description Data Tere rce(s) Supporting Document(s) ID Date Data Source [id number] 11/23/2020 12:47:04 PM EST [facility] Name Value Range Interpretation Code Description Data Tere rce(s) Supporting Document(s) POC GLUCOSE 210 mg/dL (70-99) [facility] [place] [facility] NOTIFIED NURSEPERFORMED BY CLINICAL S TAFF ID Date Data Source [id number] 11/25/2020 09:56:14 AM EST [facility] SPECIMEN DESCRIPTION SURGICAL WOU NDSPECIAL [...] rce(s) Supporting Document(s) ID Date Data Source [id number] 11/25/2020 08:52:52 AM EST [facility] [place] [facility] SPECIMEN DESCRIPTION SURGICAL WOU NDSPECIAL [...] rce(s) Supporting Document(s) ID Date Data Source [id number] 11/23/2020 08:55:41 AM EST [facility] [place] [facility] Name Value Range Interpretation Code Description Data Tere rce(s) Supporting Document(s) POC GLUCOSE 285 mg/dL (70-99) [facility] [place] [facility] NOTIFIED NURSEPERFORMED BY CLINICAL S TAFF ID Date Data Source [id number] 11/23/2020 10:24:41 AM EST [facility] [place] [facility] Name Value Range Interpretation Code Description Data Tere rce(s) Supporting Document(s) SODIUM 133 mmol/L (136-145) L [facility] [place] [facility] POTASSIUM 4.4 mmol/L (3.6-5.2) [facility] CHLORIDE 98 mmol/L (100-108) L [facility] CO2 24 mmol/L (22-31) [facility] ANION GAP 11 mmol/L (7-16) [facility] UREA NITROGEN 9 mg/dL (7-24) [facility] CREATININE 0.58 mg/dL (0.60-1.00) [facility] BUN/CREAT RATIO 15.5 RATIO (10.0-20.0) [facility] GLUCOSE 263 mg/dL (70-99) [facility] CALCIUM 8.8 mg/dL (8.4-10.2) [facility] GFR >60 ml/min/1.73m2 (>59) [facility] GFR ( AMER) >60 ml/min/1.73m2 (>59) [facility] GFR INTERPRETATION [facility] --NORMAL KIDNEY FUNCTION OR MILD DISEASE - GFR >OR= 60CHRONIC KIDNEY DISEASE - GFR 15 - 59RENAL FAILURE - GFR <15 Est. GFR calculation based on the MDRDstudy equation, which assumes a steadystate for creatinine. Est. GFR should notbe used for medication dosing. ID Date Data Source [id number] 11/23/2020 09:58:36 AM EST [facility] Name Value Range Interpretation Code Description Data Tere rce(s) Supporting Document(s) WBC 11.8 10*3/uL (4.1-11.0) [facility] RBC 2.84 10*6/uL (4.00-5.40) [facility] HGB 7.6 g/dL (12.0-16.0) [facility] HCT 24.5 % (36.0-47.0) [facility] MCV 86.1 fL (80.0-95.0) [facility] MCH 26.9 pg (27.0-32.0) [facility] MCHC 31.2 g/dL (32.0-36.0) [facility] RDW 19.1 % (10.5-14.5) [facility] PLT 534 10*3/uL (150-450) [facility] MPV 8.8 fL (7.1-10.7) [facility] ID Date Data Source [id number] 11/23/2020 03:22:59 AM EST [facility] Name Value Range Interpretation Code Description Data Tere rce(s) Supporting Document(s) POC GLUCOSE 194 mg/dL (70-99) [facility] PERFORMED BY CLINICAL STAFF ID Date Data Source [id number] 11/22/2020 11:24:14 PM EST [facility] Name Value Range Interpretation Code Description Data Tere rce(s) Supporting Document(s) POC GLUCOSE 156 mg/dL (70-99) [facility] NOTIFIED NURSEPERFORMED BY CLINICAL S TAFF ID Date Data Source [id number] 11/22/2020 11:24:14 PM EST [facility] Name Value Range Interpretation Code Description Data Tere rce(s) Supporting Document(s) POC GLUCOSE 132 mg/dL (70-99) [facility] NOTIFIED NURSEPERFORMED BY CLINICAL S TAFF ID Date Data Source [id number] 11/22/2020 10:02:20 PM EST [facility] Name Value Range Interpretation Code Description Data Tere rce(s) Supporting Document(s) POC GLUCOSE 66 mg/dL (70-99) [facility] NOTIFIED NURSEPERFORMED BY CLINICAL S TAFF ID Date Data Source [id number] 11/22/2020 06:13:03 PM EST [facility] Name Value Range Interpretation Code Description Data Tere rce(s) Supporting Document(s) POC GLUCOSE 75 mg/dL (70-99) [facility] [facility] NOTIFIED NURSEPERFORMED BY CLINICAL S TAFF ID Date Data Source [id number] 11/22/2020 12:26:06 PM EST [facility] [facility] Name Value Range Interpretation Code Description Data Tere rce(s) Supporting Document(s) POC GLUCOSE 292 mg/dL (70-99) [facility] [place] [facility] NOTIFIED NURSEPERFORMED BY CLINICAL S TAFF ID Date Data Source [id number] 11/22/2020 11:49:13 AM EST [facility] Name Value Range Interpretation Code Description Data Tere rce(s) Supporting Document(s) PHOSPHORUS 3.3 mg/dL (2.5-4.5) [facility] ID Date Data Source [id number] 11/22/2020 11:49:13 AM EST [facility] Name Value Range Interpretation Code Description Data Tere rce(s) Supporting Document(s) SODIUM 131 mmol/L (136-145) [facility] [facility] POTASSIUM 4.0 mmol/L (3.6-5.2) [facility] CHLORIDE 97 mmol/L (100-108) [facility] CO2 25 mmol/L (22-31) [facility] ANION GAP 9 mmol/L (7-16) [facility] UREA NITROGEN 11 mg/dL (7-24) [facility] CREATININE 0.65 mg/dL (0.60-1.00) [facility] BUN/CREAT RATIO 16.9 RATIO (10.0-20.0) [facility] GLUCOSE 363 mg/dL (70-99) [facility] CALCIUM 8.1 mg/dL (8.4-10.2) [facility] TOTAL PROTEIN 6.9 g/dL (6.4-8.2) [facility] ALBUMIN 2.4 g/dL (3.5-4.6) [facility] GLOBULIN 4.5 g/dL (2.7-4.3) [facility] ALB/GLOB RATIO 0.5 RATIO [facility] ALKALINE PHOSPHATASE 105 U/L (45-117) [facility] BILIRUBIN,TOTAL 0.4 mg/dL (0.0-1.0) [facility] [place] [facility] PLEASE NOTE:Total bilirubin results may be falselyelevated in patients taking Eltrombopag. AST (SGOT) 12 U/L (11-39) [facility] ALT (SGPT) 11 U/L (12-78) [facility] GFR >60 ml/min/1.73m2 (>59) [facility] GFR ( AMER) >60 ml/min/1.73m2 (>59) [facility] GFR INTERPRETATION [facility] --NORMAL KIDNEY FUNCTION OR MILD DISEASE - GFR >OR= 60CHRONIC KIDNEY DISEASE - GFR 15 - 59RENAL FAILURE - GFR <15 Est. GFR calculation based on the MDRDstudy equation, which assumes a steadystate for creatinine. Est. GFR should notbe used for medication dosing. ID Date Data Source [id number] 11/22/2020 11:49:13 AM EST [facility] Name Value Range Interpretation Code Description Data Tere rce(s) Supporting Document(s) MAGNESIUM 2.0 mg/dL (1.7-2.4) [facility] ID Date Data Source [id number] 11/22/2020 11:23:02 AM EST [facility] Name Value Range Interpretation Code Description Data Tere rce(s) Supporting Document(s) WBC 15.3 10*3/uL (4.1-11.0) [facility] RBC 2.91 10*6/uL (4.00-5.40) [facility] HGB 8.0 g/dL (12.0-16.0) [facility] HCT 25.3 % (36.0-47.0) [facility] MCV 86.8 fL (80.0-95.0) [facility] MCH 27.6 pg (27.0-32.0) [facility] MCHC 31.8 g/dL (32.0-36.0) [facility] RDW 19.0 % (10.5-14.5) [facility] PLT 525 10*3/uL (150-450) [facility] MPV 8.1 fL (7.1-10.7) [facility] ID Date Data Source [id number] 11/22/2020 08:44:17 AM EST [facility] Name Value Range Interpretation Code Description Data Tere rce(s) Supporting Document(s) POC GLUCOSE 166 mg/dL (70-99) [facility] PERFORMED BY CLINICAL STAFF ID Date Data Source [id number] 11/22/2020 03:23:51 AM EST [facility] Name Value Range Interpretation Code Description Data Tere rce(s) Supporting Document(s) POC GLUCOSE 197 mg/dL (70-99) [facility] PERFORMED BY CLINICAL STAFF ID Date Data Source [id number] 11/22/2020 12:18:28 AM EST [facility] Name Value Range Interpretation Code Description Data Tere rce(s) Supporting Document(s) POC GLUCOSE 137 mg/dL (70-99) [facility] PERFORMED BY CLINICAL STAFF ID Date Data Source [id number] 11/21/2020 11:42:57 PM EST [facility] Name Value Range Interpretation Code Description Data Tere rce(s) Supporting Document(s) POC GLUCOSE 115 mg/dL (70-99) [facility] PERFORMED BY CLINICAL STAFF ID Date Data Source [id number] 11/21/2020 11:42:52 PM EST [facility] Name Value Range Interpretation Code Description Data Tere rce(s) Supporting Document(s) POC GLUCOSE 66 mg/dL (70-99) L [facility] PERFORMED BY CLINICAL STAFF ID Date Data Source [id number] 11/21/2020 05:38:59 PM EST [facility] Name Value Range Interpretation Code Description Data Tere rce(s) Supporting Document(s) POC GLUCOSE 212 mg/dL (70-99) [facility] PERFORMED BY CLINICAL STAFF ID Date Data Source [id number] 11/21/2020 12:28:48 PM EST [facility] Name Value Range Interpretation Code Description Data Tere rce(s) Supporting Document(s) POC GLUCOSE 300 mg/dL (70-99) [facility] NOTIFIED NURSEPERFORMED BY CLINICAL S TAFF ID Date Data Source [id number] 11/21/2020 08:20:06 AM EST [facility] Name Value Range Interpretation Code Description Data Tere rce(s) Supporting Document(s) POC GLUCOSE 147 mg/dL (70-99) [facility] NOTIFIED NURSEPERFORMED BY CLINICAL S TAFF ID Date Data Source [id number] 11/21/2020 03:11:08 AM EST [facility] Name Value Range Interpretation Code Description Data Tere rce(s) Supporting Document(s) POC GLUCOSE 172 mg/dL (70-99) [facility] PERFORMED BY CLINICAL STAFF ID Date Data Source [id number] 11/20/2020 10:10:12 PM EST [facility] Name Value Range Interpretation Code Description Data Tere rce(s) Supporting Document(s) POC GLUCOSE 177 mg/dL (70-99) [facility] PERFORMED BY CLINICAL STAFF ID Date Data Source [id number] 11/20/2020 05:31:54 PM EST [facility] Name Value Range Interpretation Code Description Data Tere rce(s) Supporting Document(s) POC GLUCOSE 91 mg/dL (70-99) [facility] PERFORMED BY CLINICAL STAFF ID Date Data Source [id number] 11/20/2020 12:30:00 PM EST [facility] Name Value Range Interpretation Code Description Data Tere rce(s) Supporting Document(s) POC GLUCOSE 313 mg/dL (70-99) [facility] PERFORMED BY CLINICAL STAFF ID Date Data Source [id number] 11/20/2020 09:09:54 AM EST [facility] Name Value Range Interpretation Code Description Data Tere rce(s) Supporting Document(s) POC GLUCOSE 131 mg/dL (70-99) H [facility] NOTIFIED NURSEPERFORMED BY CLINICAL S TAFF ID Date Data Source [id number] 11/20/2020 02:45:31 AM EST [facility] Name Value Range Interpretation Code Description Data Tere rce(s) Supporting Document(s) POC GLUCOSE 130 mg/dL (70-99) H [facility] NOTIFIED NURSEPERFORMED BY CLINICAL S TAFF ID Date Data Source [id number] 11/19/2020 11:08:05 PM EST [facility] Name Value Range Interpretation Code Description Data Tere rce(s) Supporting Document(s) POC GLUCOSE 131 mg/dL (70-99) H [facility] PERFORMED BY CLINICAL STAFF ID Date Data Source [id number] 11/19/2020 10:19:26 PM EST [facility] Name Value Range Interpretation Code Description Data Tere rce(s) Supporting Document(s) POC GLUCOSE 155 mg/dL (70-99) H [facility] NOTIFIED NURSEPERFORMED BY CLINICAL S TAFF ID Date Data Source [id number] 11/19/2020 10:19:26 PM EST [facility] Name Value Range Interpretation Code Description Data Tere rce(s) Supporting Document(s) POC GLUCOSE 66 mg/dL (70-99) L [facility] NOTIFIED NURSEPERFORMED BY CLINICAL S TAFF ID Date Data Source [id number] 11/19/2020 05:20:41 PM EST [facility] Name Value Range Interpretation Code Description Data Tere rce(s) Supporting Document(s) POC GLUCOSE 97 mg/dL (70-99) [facility] PERFORMED BY CLINICAL STAFF ID Date Data Source [id number] 11/19/2020 11:19:00 AM EST [facility] Name Value Range Interpretation Code Description Data Tere rce(s) Supporting Document(s) POC GLUCOSE 210 mg/dL (70-99) H [facility] NOTIFIED NURSEPERFORMED BY CLINICAL S TAFF ID Date Data Source [id number] 11/19/2020 08:04:54 AM EST [facility] Name Value Range Interpretation Code Description Data Tere rce(s) Supporting Document(s) POC GLUCOSE 167 mg/dL (70-99) H [facility] NOTIFIED NURSEPERFORMED BY CLINICAL S TAFF ID Date Data Source [id number] 11/19/2020 03:09:15 AM EST [facility] Name Value Range Interpretation Code Description Data Tere rce(s) Supporting Document(s) POC GLUCOSE 144 mg/dL (70-99) H [facility] PERFORMED BY CLINICAL STAFF ID Date Data Source [id number] 11/18/2020 10:11:50 PM EST [facility] Name Value Range Interpretation Code Description Data Tere rce(s) Supporting Document(s) GLUCOSE 450 mg/dL (70-99) HH [facility] RESULT(S) CALLED TO AND READ BACK BYTRAC Y 4MEM ON 11/18/2020 AT 2210 [place] [id number] ID Date Data Source [id number] 11/18/2020 09:40:49 PM EST [facility] Name Value Range Interpretation Code Description Data Tere rce(s) Supporting Document(s) POC GLUCOSE 468 mg/dL (70-99) [facility] PERFORMED BY CLINICAL STAFF ID Date Data Source [id number] 11/18/2020 07:03:42 PM EST [facility] Name Value Range Interpretation Code Description Data Tere rce(s) Supporting Document(s) POC GLUCOSE 355 mg/dL (70-99) H [facility] PERFORMED BY CLINICAL STAFF ID Date Data Source [id number] 11/18/2020 05:30:25 PM EST [facility] Name Value Range Interpretation Code Description Data Tere rce(s) Supporting Document(s) POC GLUCOSE 436 mg/dL (70-99) [facility] NOTIFIED NURSEPERFORMED BY CLINICAL S TAFF ID Date Data Source [id number] 11/18/2020 04:22:32 PM EST [facility] Name Value Range Interpretation Code Description Data Tere rce(s) Supporting Document(s) POC GLUCOSE 450 mg/dL (70-99) [facility] PERFORMED BY CLINICAL STAFF ID Date Data Source [id number] 11/18/2020 12:41:06 PM EST [facility] Name Value Range Interpretation Code Description Data Tere rce(s) Supporting Document(s) POC GLUCOSE 397 mg/dL (70-99) H [facility] PERFORMED BY CLINICAL STAFF ID Date Data Source [id number] 11/18/2020 08:01:04 AM EST [facility] Name Value Range Interpretation Code Description Data Tere rce(s) Supporting Document(s) POC GLUCOSE 240 mg/dL (70-99) H [facility] NOTIFIED NURSEPERFORMED BY CLINICAL S TAFF ID Date Data Source [id number] 11/18/2020 02:43:41 AM EST [facility] Name Value Range Interpretation Code Description Data Tere rce(s) Supporting Document(s) POC GLUCOSE 218 mg/dL (70-99) H [facility] PERFORMED BY CLINICAL STAFF ID Date Data Source [id number] 11/17/2020 10:14:11 PM EST [facility] Name Value Range Interpretation Code Description Data Tere rce(s) Supporting Document(s) POC GLUCOSE 102 mg/dL (70-99) H [facility] PERFORMED BY CLINICAL STAFF ID Date Data Source [id number] 11/17/2020 05:48:02 PM EST [facility] Name Value Range Interpretation Code Description Data Tere rce(s) Supporting Document(s) POC GLUCOSE 142 mg/dL (70-99) H [facility] PERFORMED BY CLINICAL STAFF ID Date Data Source [id number] 11/17/2020 12:40:43 PM EST [facility] Name Value Range Interpretation Code Description Data Tere rce(s) Supporting Document(s) POC GLUCOSE 112 mg/dL (70-99) H [facility] PERFORMED BY CLINICAL STAFF ID Date Data Source [id number] 11/17/2020 09:34:03 AM EST [facility] Name Value Range Interpretation Code Description Data Tere rce(s) Supporting Document(s) POC GLUCOSE 229 mg/dL (70-99) H [facility] PERFORMED BY CLINICAL STAFF ID Date Data Source [id number] 11/17/2020 02:52:16 AM EST [facility] Name Value Range Interpretation Code Description Data Tere rce(s) Supporting Document(s) POC GLUCOSE 230 mg/dL (70-99) H [facility] PERFORMED BY CLINICAL STAFF ID Date Data Source [id number] 11/16/2020 09:33:11 PM EST [facility] Name Value Range Interpretation Code Description Data Tere rce(s) Supporting Document(s) POC GLUCOSE 249 mg/dL (70-99) H [facility] NOTIFIED NURSEPERFORMED BY CLINICAL S TAFF ID Date Data Source [id number] 11/16/2020 07:49:51 PM EST [facility] Name Value Range Interpretation Code Description Data Tere rce(s) Supporting Document(s) POC GLUCOSE 182 mg/dL (70-99) H [facility] PERFORMED BY CLINICAL STAFF ID Date Data Source [id number] 11/16/2020 06:20:39 PM EST [facility] Name Value Range Interpretation Code Description Data Tere rce(s) Supporting Document(s) POC GLUCOSE 77 mg/dL (70-99) [facility] PERFORMED BY CLINICAL STAFF ID Date Data Source [id number] 11/16/2020 05:42:52 PM EST [facility] Name Value Range Interpretation Code Description Data Tere rce(s) Supporting Document(s) POC GLUCOSE 60 mg/dL (70-99) L [facility] PERFORMED BY CLINICAL STAFF ID Date Data Source [id number] 11/16/2020 05:42:52 PM EST [facility] Name Value Range Interpretation Code Description Data Tere rce(s) Supporting Document(s) POC GLUCOSE 32 mg/dL (70-99) LL [facility] PERFORMED BY CLINICAL STAFF ID Date Data Source [id number] 11/16/2020 03:09:09 PM EST [facility] Name Value Range Interpretation Code Description Data Tere rce(s) Supporting Document(s) POC GLUCOSE 103 mg/dL (70-99) H [facility] PERFORMED BY CLINICAL STAFF ID Date Data Source [id number] 11/16/2020 04:18:16 PM EST [facility] Name Value Range Interpretation Code Description Data Tere rce(s) Supporting Document(s) SODIUM 132 mmol/L (136-145) L [facility] POTASSIUM 4.9 mmol/L (3.6-5.2) [facility] CHLORIDE 97 mmol/L (100-108) L [facility] CO2 33 mmol/L (22-31) H [facility] ANION GAP 2 mmol/L (7-16) L [facility] UREA NITROGEN 14 mg/dL (7-24) [facility] CREATININE 0.75 mg/dL (0.60-1.00) [facility] BUN/CREAT RATIO 18.7 RATIO (10.0-20.0) [facility] GLUCOSE 123 mg/dL (70-99) H [facility] CALCIUM 8.5 mg/dL (8.4-10.2) [facility] GFR >60 ml/min/1.73m2 (>59) [facility] GFR ( AMER) >60 ml/min/1.73m2 (>59) [facility] GFR INTERPRETATION [facility] --NORMAL KIDNEY FUNCTION OR MILD DISEASE - GFR >OR= 60CHRONIC KIDNEY DISEASE - GFR 15 - 59RENAL FAILURE - GFR <15 Est. GFR calculation based on the MDRDstudy equation, which assumes a steadystate for creatinine. Est. GFR should notbe used for medication dosing. ID Date Data Source [id number] 11/16/2020 03:49:50 PM EST [facility] Name Value Range Interpretation Code Description Data Tere rce(s) Supporting Document(s) WBC 7.9 10*3/uL (4.1-11.0) [facility] RBC 2.73 10*6/uL (4.00-5.40) L [facility] HGB 8.0 g/dL (12.0-16.0) L [facility] HCT 24.6 % (36.0-47.0) L [facility] MCV 90.1 fL (80.0-95.0) [facility] MCH 29.4 pg (27.0-32.0) [facility] MCHC 32.7 g/dL (32.0-36.0) [facility] RDW 19.3 % (10.5-14.5) H [facility] PLT 454 10*3/uL (150-450) H [facility] MPV 8.3 fL (7.1-10.7) [facility] ID Date Data Source [id number] 11/16/2020 12:41:09 PM EST [facility] Name Value Range Interpretation Code Description Data Tere rce(s) Supporting Document(s) POC GLUCOSE 181 mg/dL (70-99) H [facility] PERFORMED BY CLINICAL STAFF ID Date Data Source [id number] 11/16/2020 09:38:35 AM EST [facility] Name Value Range Interpretation Code Description Data Tere rce(s) Supporting Document(s) POC GLUCOSE 185 mg/dL (70-99) H [facility] PERFORMED BY CLINICAL STAFF ID Date Data Source [id number] 11/16/2020 03:16:59 AM EST [facility] Name Value Range Interpretation Code Description Data Tere rce(s) Supporting Document(s) POC GLUCOSE 128 mg/dL (70-99) H [facility] NOTIFIED NURSEPERFORMED BY CLINICAL S TAFF ID Date Data Source [id number] 11/15/2020 08:55:21 PM EST [facility] Name Value Range Interpretation Code Description Data Tere rce(s) Supporting Document(s) POC GLUCOSE 188 mg/dL (70-99) H [facility] NOTIFIED NURSEPERFORMED BY CLINICAL S TAFF ID Date Data Source [id number] 11/15/2020 04:46:00 PM EST [facility] Name Value Range Interpretation Code Description Data Tere rce(s) Supporting Document(s) POC GLUCOSE 115 mg/dL (70-99) H [facility] PERFORMED BY CLINICAL STAFF ID Date Data Source [id number] 11/15/2020 12:41:44 PM EST [facility] Name Value Range Interpretation Code Description Data Tere rce(s) Supporting Document(s) POC GLUCOSE 199 mg/dL (70-99) H [facility] NOTIFIED NURSEPERFORMED BY CLINICAL S TAFF ID Date Data Source [id number] 11/15/2020 08:09:49 AM EST [facility] Name Value Range Interpretation Code Description Data Etre rce(s) Supporting Document(s) POC GLUCOSE 167 mg/dL (70-99) H [facility] NOTIFIED NURSEPERFORMED BY CLINICAL S TAFF ID Date Data Source [id number] 11/15/2020 03:13:29 AM EST [facility] Name Value Range Interpretation Code Description Data Tere rce(s) Supporting Document(s) POC GLUCOSE 204 mg/dL (70-99) H [facility] NOTIFIED NURSEPERFORMED BY CLINICAL S TAFF ID Date Data Source [id number] 11/14/2020 09:41:41 PM EST [facility] Name Value Range Interpretation Code Description Data Tere rce(s) Supporting Document(s) POC GLUCOSE 80 mg/dL (70-99) [facility] NOTIFIED NURSEPERFORMED BY CLINICAL S TAFF ID Date Data Source [id number] 11/14/2020 04:51:41 PM EST [facility] Name Value Range Interpretation Code Description Data Tere rce(s) Supporting Document(s) POC GLUCOSE 128 mg/dL (70-99) H [facility] PERFORMED BY CLINICAL STAFF ID Date Data Source [id number] 11/14/2020 04:48:00 PM EST [facility] DATE OF EXAM: 11/14/2020EXAM: Portable c hest INDICATION: COVID COMPARISON: No prior chest radiographs on the timeline. TECHNIQUE: AP semiupright. There is a limited degree of inspiration with minor accentuation of the pulmonary markings however no focal area of pneumonia is seen. The mediastinum, heart, and pulmonary vascularity are within normal limits. Professional interpretation performed at [facility] .End of diagnostic report for accession: [id number] Interpreted: Santiago Fraga MDTranscribed: 11/14/2020 04:48 PMSigned: 11/14/2020 04:48 PM Santiago Fraga MD [facility] # [id number] BILL # [id number] Name Value Range Interpretation Code Description Data Tere rce(s) Supporting Document(s) ID Date Data Source [id number] 11/14/2020 12:24:53 PM EST [facility] Name Value Range Interpretation Code Description Data Tere rce(s) Supporting Document(s) POC GLUCOSE 131 mg/dL (70-99) H [facility] NOTIFIED NURSEPERFORMED BY CLINICAL S TAFF ID Date Data Source [id number] 11/14/2020 12:04:42 PM EST [facility] Name Value Range Interpretation Code Description Data Tere rce(s) Supporting Document(s) FERRITIN @ 40 ng/mL (8-252) [facility] ID Date Data Source [id number] 11/14/2020 09:38:08 AM EST [facility] Name Value Range Interpretation Code Description Data Tere rce(s) Supporting Document(s) LDH 222 U/L (84-246) [facility] ID Date Data Source [id number] 11/14/2020 09:38:08 AM EST [facility] Name Value Range Interpretation Code Description Data Tere rce(s) Supporting Document(s) SODIUM 133 mmol/L (136-145) L [facility] POTASSIUM 5.8 mmol/L (3.6-5.2) H [facility] CHLORIDE 99 mmol/L (100-108) L [facility] CO2 29 mmol/L (22-31) [facility] ANION GAP 5 mmol/L (7-16) L [facility] UREA NITROGEN 11 mg/dL (7-24) [facility] CREATININE 0.68 mg/dL (0.60-1.00) [facility] BUN/CREAT RATIO 16.2 RATIO (10.0-20.0) [facility] GLUCOSE 352 mg/dL (70-99) H [facility] CALCIUM 8.4 mg/dL (8.4-10.2) [facility] GFR >60 ml/min/1.73m2 (>59) [facility] GFR ( AMER) >60 ml/min/1.73m2 (>59) [facility] GFR INTERPRETATION [facility] --NORMAL KIDNEY FUNCTION OR MILD DISEASE - GFR >OR= 60CHRONIC KIDNEY DISEASE - GFR 15 - 59RENAL FAILURE - GFR <15 Est. GFR calculation based on the MDRDstudy equation, which assumes a steadystate for creatinine. Est. GFR should notbe used for medication dosing. ID Date Data Source [id number] 11/14/2020 09:34:25 AM EST [facility] Name Value Range Interpretation Code Description Data Tere rce(s) Supporting Document(s) WBC 8.3 10*3/uL (4.1-11.0) [facility] RBC 2.83 10*6/uL (4.00-5.40) L [facility] HGB 8.2 g/dL (12.0-16.0) L [facility] HCT 25.4 % (36.0-47.0) L [facility] MCV 89.8 fL (80.0-95.0) [facility] MCH 29.1 pg (27.0-32.0) [facility] MCHC 32.4 g/dL (32.0-36.0) [facility] RDW 19.4 % (10.5-14.5) H [facility] PLT 407 10*3/uL (150-450) [facility] MPV 8.3 fL (7.1-10.7) [facility] ID Date Data Source [id number] 11/14/2020 09:20:06 AM EST [facility] Name Value Range Interpretation Code Description Data Tere rce(s) Supporting Document(s) D-DIMER,SENSITIVE 1.72 mg/L (<0.50) H [facility] Per ACP, an age adjusted D-dimer cutoff forLOW RISK patients over the age of 50 isrecommended.Cutoff = age (years) X 0.01 mg/L.Normal D-dimer values rise with age and datasuggests an age adjusted D-dimer cutoff levelimproves specificity for ruling out PE. ID Date Data Source [id number] 11/14/2020 08:35:37 AM EST [facility] Name Value Range Interpretation Code Description Data Tere rce(s) Supporting Document(s) POC GLUCOSE 361 mg/dL (70-99) H [facility] NOTIFIED NURSEPERFORMED BY CLINICAL S TAFF ID Date Data Source [id number] 11/14/2020 02:49:44 AM EST [facility] Name Value Range Interpretation Code Description Data Tere rce(s) Supporting Document(s) POC GLUCOSE 295 mg/dL (70-99) H [facility] NOTIFIED NURSEPERFORMED BY CLINICAL S TAFF ID Date Data Source [id number] 11/13/2020 10:00:40 PM EST [facility] Name Value Range Interpretation Code Description Data Tere rce(s) Supporting Document(s) POC GLUCOSE 154 mg/dL (70-99) H [facility] PERFORMED BY CLINICAL STAFF ID Date Data Source [id number] 11/13/2020 09:58:00 PM EST [facility] [...] space. X7End of diagnostic report for accession: [id number] Interpreted: Santiago Amezcua MDTranscribed: 11/13/2020 09:54 PMSigned: 11/13/2020 09:58 PM Santiago Amezcua MD [facility] # [id number] BILL # [id number] Name Value Range Interpretation Code Description Data Tere rce(s) Supporting Document(s) ID Date Data Source [id number] 11/13/2020 09:58:00 PM EST [facility] DATE OF EXAM: 11/13/2020EXAMINATION/ KUSUM [...] space. X7End of diagnostic report for accession: [id number] Interpreted: Santiago Amezcua MDTranscribed: 11/13/2020 09:54 PMSigned: 11/13/2020 09:58 PM Santiago Amezcua MD [facility] # [id number] BILL # [id number] Name Value Range Interpretation Code Description Data Tere rce(s) Supporting Document(s) ID Date Data Source [id number] 11/13/2020 06:40:15 PM EST [facility] [place] [facility] Name Value Range Interpretation Code Description Data Tere rce(s) Supporting Document(s) POC GLUCOSE 83 mg/dL (70-99) [facility] PERFORMED BY CLINICAL STAFF ID Date Data Source [id number] 11/13/2020 06:16:13 PM EST [facility] Name Value Range Interpretation Code Description Data Tere rce(s) Supporting Document(s) POC GLUCOSE 82 mg/dL (70-99) [facility] PERFORMED BY CLINICAL STAFF ID Date Data Source [id number] 11/13/2020 05:44:18 PM EST [facility] Name Value Range Interpretation Code Description Data Tere rce(s) Supporting Document(s) POC GLUCOSE 69 mg/dL (70-99) L [facility] PERFORMED BY CLINICAL STAFF ID Date Data Source [id number] 11/13/2020 05:13:24 PM EST [facility] Name Value Range Interpretation Code Description Data Tere rce(s) Supporting Document(s) POC GLUCOSE 51 mg/dL (70-99) L [facility] PERFORMED BY CLINICAL STAFF ID Date Data Source [id number] 11/13/2020 12:26:13 PM EST [facility] Name Value Range Interpretation Code Description Data Tere rce(s) Supporting Document(s) POC GLUCOSE 262 mg/dL (70-99) H [facility] NOTIFIED NURSEPERFORMED BY CLINICAL S TAFF ID Date Data Source [id number] 11/13/2020 08:26:14 AM EST [facility] Name Value Range Interpretation Code Description Data Tere rce(s) Supporting Document(s) POC GLUCOSE 211 mg/dL (70-99) H [facility] NOTIFIED NURSEPERFORMED BY CLINICAL S TAFF ID Date Data Source [id number] 11/13/2020 02:53:44 AM EST [facility] Name Value Range Interpretation Code Description Data Tere rce(s) Supporting Document(s) POC GLUCOSE 232 mg/dL (70-99) H [facility] PERFORMED BY CLINICAL STAFF ID Date Data Source [id number] 11/12/2020 09:03:37 PM EST [facility] Name Value Range Interpretation Code Description Data Tere rce(s) Supporting Document(s) POC GLUCOSE 251 mg/dL (70-99) H [facility] PERFORMED BY CLINICAL STAFF ID Date Data Source [id number] 11/12/2020 05:13:08 PM EST [facility] Name Value Range Interpretation Code Description Data Tere rce(s) Supporting Document(s) POC GLUCOSE 277 mg/dL (70-99) H [facility] PERFORMED BY CLINICAL STAFF ID Date Data Source [id number] 11/12/2020 12:47:13 PM EST [facility] Name Value Range Interpretation Code Description Data Tere rce(s) Supporting Document(s) POC GLUCOSE 57 mg/dL (70-99) L [facility] PERFORMED BY CLINICAL STAFF ID Date Data Source [id number] 11/12/2020 07:49:48 AM EST [facility] Name Value Range Interpretation Code Description Data Tere rce(s) Supporting Document(s) POC GLUCOSE 246 mg/dL (70-99) H [facility] PERFORMED BY CLINICAL STAFF ID Date Data Source [id number] 11/12/2020 02:44:04 AM EST [facility] Name Value Range Interpretation Code Description Data Tere rce(s) Supporting Document(s) POC GLUCOSE 75 mg/dL (70-99) [facility] PERFORMED BY CLINICAL STAFF ID Date Data Source [id number] 11/11/2020 10:50:50 PM EST [facility] Name Value Range Interpretation Code Description Data Tere rce(s) Supporting Document(s) POC GLUCOSE 118 mg/dL (70-99) H [facility] NOTIFIED NURSEPERFORMED BY CLINICAL S TAFF ID Date Data Source [id number] 11/11/2020 07:06:03 PM EST [facility] Name Value Range Interpretation Code Description Data Tere rce(s) Supporting Document(s) POC GLUCOSE 387 mg/dL (70-99) H [facility] PERFORMED BY CLINICAL STAFF ID Date Data Source [id number] 11/11/2020 06:14:29 PM EST [facility] Name Value Range Interpretation Code Description Data Tere rce(s) Supporting Document(s) POC GLUCOSE 419 mg/dL (70-99) HH [facility] PERFORMED BY CLINICAL STAFF ID Date Data Source [id number] 11/11/2020 02:52:53 PM EST [facility] Name Value Range Interpretation Code Description Data Tere rce(s) Supporting Document(s) POC GLUCOSE 399 mg/dL (70-99) H [facility] PERFORMED BY CLINICAL STAFF ID Date Data Source [id number] 11/11/2020 12:48:46 PM EST [facility] Name Value Range Interpretation Code Description Data Tere rce(s) Supporting Document(s) POC GLUCOSE 351 mg/dL (70-99) H [facility] PERFORMED BY CLINICAL STAFF ID Date Data Source [id number] 11/11/2020 11:32:34 AM EST [facility] [place] [facility] Name Value Range Interpretation Code Description Data Tere rce(s) Supporting Document(s) POC GLUCOSE 416 mg/dL (70-99) [facility] PERFORMED BY CLINICAL STAFF ID Date Data Source [id number] 11/11/2020 10:30:00 AM EST [facility] Name Value Range Interpretation Code Description Data Tere rce(s) Supporting Document(s) SARS coronavirus 2 RNA [Presence] in Res piratory specimen by [facility] with probe detection [facility] This lab was reported by [facility]. ID Date Data Source [id number] 11/11/2020 03:56:53 PM EST [facility] [place] [facility] Name Value Range Interpretation Code Description Data Tere rce(s) Supporting Document(s) SPECIMEN DESCRIPTION [facility] COVID19 RESULT (NDET) A [facility] [place] [facility] [employer] [facility] [employer] [facility] [employer] THIS ASSAY AMPLIFIES AND DETECTSTHE TARG ET RNA USING REAL-TIME PCR. COMMENT [facility] [place] APPROVED B Y THE [facility]. THE [place] [employer] HAS NOT APPROVEDTHIS TEST. NEGATIVE RESULTS DO NOT [id number] INFECTION AND SHOULD NOT BEUSED THE SOLE BASIS FOR CLINICALDIAGNOSIS OR PATIENT MANAGEMENT DECISIONS.RESULTS READ BACK BY BRIGITTE AT 6SIR AT 8366. RESULTS EMAILED TO IC AT [phone]. [phone]. FIRST TEST [facility] [place] [facility] [place] [facility]OMATIC [facility] DATE OF SYMPT ONSET [facility] H[facility]PITALIZED [facility] [place] [facility] ICU [facility] [place] CONGREGATE CARE SET [facility] ID Date Data Source [id number] 11/11/2020 09:05:23 AM EST [facility] Name Value Range Interpretation Code Description Data Tere rce(s) Supporting Document(s) POC GLUCOSE 270 mg/dL (70-99) H [facility] PERFORMED BY CLINICAL STAFF ID Date Data Source [id number] 11/11/2020 03:14:24 AM EST [facility] [place] [facility] Name Value Range Interpretation Code Description Data Tere rce(s) Supporting Document(s) POC GLUCOSE 296 mg/dL (70-99) H [facility] PERFORMED BY CLINICAL STAFF ID Date Data Source [id number] 11/10/2020 10:05:27 PM EST [facility] Name Value Range Interpretation Code Description Data Tere rce(s) Supporting Document(s) POC GLUCOSE 167 mg/dL (70-99) H [facility] PERFORMED BY CLINICAL STAFF ID Date Data Source [id number] 11/10/2020 05:37:41 PM EST [facility] [place] [facility] Name Value Range Interpretation Code Description Data Tere rce(s) Supporting Document(s) POC GLUCOSE 81 mg/dL (70-99) [facility] PERFORMED BY CLINICAL STAFF ID Date Data Source [id number] 11/10/2020 01:17:00 PM EST [facility] [...] understanding and verification. Professional interpretation performed at [facility] .End of diagnostic report for accession: [id number] Interpreted: Armando Vu MDTranscribed: 11/10/2020 01:04 PMSigned: 11/10/2020 01:17 PM Armando Vu MD [facility] # [id number] BILL # [id number] Name Value Range Interpretation Code Description Data Tere rce(s) Supporting Document(s) ID Date Data Source [id number] 11/10/2020 12:21:05 PM EST [facility] [place] [facility] Name Value Range Interpretation Code Description Data Tere rce(s) Supporting Document(s) POC GLUCOSE 146 mg/dL (70-99) H [facility] [place] [facility] PERFORMED BY CLINICAL STAFF ID Date Data Source [id number] 11/10/2020 07:58:19 AM EST [facility] [place] [facility] Name Value Range Interpretation Code Description Data Tere rce(s) Supporting Document(s) POC GLUCOSE 328 mg/dL (70-99) H [facility] [place] [facility] PERFORMED BY CLINICAL STAFF ID Date Data Source [id number] 11/10/2020 06:16:42 AM EST [facility] [place] [facility] Name Value Range Interpretation Code Description Data Tere rce(s) Supporting Document(s) POC GLUCOSE 334 mg/dL (70-99) [facility] [place] [facility] PERFORMED BY CLINICAL STAFF ID Date Data Source [id number] 11/09/2020 11:59:46 PM EST [facility] [place] [facility] Name Value Range Interpretation Code Description Data Tere rce(s) Supporting Document(s) POC GLUCOSE 173 mg/dL (70-99) [facility] [place] [facility] PERFORMED BY CLINICAL STAFF ID Date Data Source [id number] 11/09/2020 10:51:38 PM EST [facility] [place] [facility] Name Value Range Interpretation Code Description Data Tere rce(s) Supporting Document(s) POC GLUCOSE 121 mg/dL (70-99) [facility] [place] [facility] PERFORMED BY CLINICAL STAFF ID Date Data Source [id number] 11/09/2020 10:08:53 PM EST [facility] [place] [facility] Name Value Range Interpretation Code Description Data Tere rce(s) Supporting Document(s) POC GLUCOSE 114 mg/dL (70-99) [facility] [place] [facility] PERFORMED BY CLINICAL STAFF ID Date Data Source [id number] 11/09/2020 09:12:37 PM EST [facility] [place] [facility] Name Value Range Interpretation Code Description Data Tere rce(s) Supporting Document(s) POC GLUCOSE 63 mg/dL (70-99) L [facility] [place] [facility] PERFORMED BY CLINICAL STAFF ID Date Data Source [id number] 11/09/2020 06:01:04 PM EST [facility] [place] [facility] Name Value Range Interpretation Code Description Data Tere rce(s) Supporting Document(s) POC GLUCOSE 87 mg/dL (70-99) [facility] [place] [facility] NOTIFIED NURSEPERFORMED BY CLINICAL S TAFF ID Date Data Source [id number] 11/09/2020 05:32:04 PM EST [facility] [place] [facility] Name Value Range Interpretation Code Description Data Tere rce(s) Supporting Document(s) POC GLUCOSE 60 mg/dL (70-99) L [facility] [place] [facility] NOTIFIED NURSEPERFORMED BY CLINICAL S TAFF ID Date Data Source [id number] 11/09/2020 12:27:55 PM EST [facility] [place] [facility] Name Value Range Interpretation Code Description Data Tere rce(s) Supporting Document(s) POC GLUCOSE 142 mg/dL (70-99) [facility] [place] [facility] NOTIFIED NURSEPERFORMED BY CLINICAL S RADHA ID Date Data Source [id number] 11/09/2020 08:56:18 AM EST [facility] [place] [facility] Name Value Range Interpretation Code Description Data Tere rce(s) Supporting Document(s) SODIUM 138 mmol/L (136-145) [facility] [place] [facility] POTASSIUM 4.2 mmol/L (3.6-5.2) [facility] [place] [facility] CHLORIDE 104 mmol/L (100-108) [facility] [place] [facility] CO2 28 mmol/L (22-31) [facility] [place] [facility] ANION GAP 6 mmol/L (7-16) L [facility] [place] [facility] UREA NITROGEN 15 mg/dL (7-24) [facility] [place] [facility] CREATININE 0.61 mg/dL (0.60-1.00) [facility] [place] [facility] BUN/CREAT RATIO 24.6 RATIO (10.0-20.0) [facility] GLUCOSE 308 mg/dL (70-99) H [facility] [place] [facility] CALCIUM 7.8 mg/dL (8.4-10.2) L [facility] [place] [facility] GFR >60 ml/min/1.73m2 (>59) [facility] [place] [facility] GFR ( AMER) >60 ml/min/1.73m2 (>59) [facility] [place] [facility] GFR INTERPRETATION [facility] --NORMAL KIDNEY FUNCTION OR MILD DISEASE - GFR >OR= 60CHRONIC KIDNEY DISEASE - GFR 15 - 59RENAL FAILURE - GFR <15 Est. GFR calculation based on the MDRDstudy equation, which assumes a steadystate for creatinine. Est. GFR should notbe used for medication dosing. ID Date Data Source [id number] 11/09/2020 08:35:10 AM EST [facility] [place] [facility] Name Value Range Interpretation Code Description Data Tere rce(s) Supporting Document(s) WBC 8.6 10*3/uL (4.1-11.0) [facility] [place] [facility] [place] RBC 2.70 10*6/uL (4.00-5.40) L [facility] [place] [facility] HGB 8.1 g/dL (12.0-16.0) L [facility] [place] [facility] HCT 24.3 % (36.0-47.0) L [facility] [place] [facility] MCV 90.1 fL (80.0-95.0) [facility] [place] [facility] MCH 30.1 pg (27.0-32.0) [facility] [place] [facility] MCHC 33.4 g/dL (32.0-36.0) [facility] [place] [facility] RDW 20.2 % (10.5-14.5) H [facility] [place] [facility] PLT 202 10*3/uL (150-450) [facility] [place] [facility] MPV 8.7 fL (7.1-10.7) [facility] [place] [facility] ID Date Data Source [id number] 11/09/2020 07:23:28 AM EST [facility] [place] [facility] Name Value Range Interpretation Code Description Data Tere rce(s) Supporting Document(s) POC GLUCOSE 297 mg/dL (70-99) H [facility] [place] [facility] NOTIFIED NURSEPERFORMED BY CLINICAL S TAFF ID Date Data Source [id number] 11/08/2020 11:09:23 PM EST [facility] [place] [facility] Name Value Range Interpretation Code Description Data Tere rce(s) Supporting Document(s) POC GLUCOSE 253 mg/dL (70-99) H [facility] [place] [facility] PERFORMED BY CLINICAL STAFF ID Date Data Source [id number] 11/08/2020 05:35:30 PM EST [facility] [place] [facility] Name Value Range Interpretation Code Description Data Tere rce(s) Supporting Document(s) POC GLUCOSE 138 mg/dL (70-99) H [facility] [place] [facility] PERFORMED BY CLINICAL STAFF ID Date Data Source [id number] 11/11/2020 03:41:00 PM EST [facility]u Santiago, [facility] [id number] [facility] [place], [place] [address]OFIXHHK NAME: GERALD MESA OF : 1975REPORT: CONSULTATIONPATIENT NUMBER: [id number] STATUS: IPMEDICAL RECORD NUMBER: [id number]: 01INTERNAL MEDICINE CONSULTATIONDATE OF CONSULTATION:REFERRING PHYSICIAN: BRENNAN Mcguire FOR CONSULTATION: Diabetes management.HISTORY OF PRESENT ILLNESS: Ms. Eli Mesa is a [id number], who has undergone spinal fusion with instrumentation [...] Bilateral clear air entry. Abdomen: Soft, nontender. CREDIT REVIEW OFFICER: Awakeand alert.LABORATORY DATA: Sodium 139, potassium 3.5. [...] Santiago, MDDictated: 11/08/2020 15:20DT: 11/08/2020 15:23Job #: [id number]: [facility] computer generated reports are notconfirmed or authenticated unless they are signed by the providerElectronically Authenticated by:TANJA SANTIAGO MD On 11/11/2020 03:42 PM EST Name Value Range Interpretation Code Description Data Tere rce(s) Supporting Document(s) ID Date Data Source [id number] 11/08/2020 11:50:48 AM EST [facility] [place] [facility] Name Value Range Interpretation Code Description Data Tere rce(s) Supporting Document(s) POC GLUCOSE 175 mg/dL (70-99) H [facility] [place] [facility] PERFORMED BY CLINICAL STAFF ID Date Data Source [id number] 11/08/2020 09:18:41 AM EST [facility] [place] [facility] Name Value Range Interpretation Code Description Data Tere rce(s) Supporting Document(s) POC GLUCOSE 250 mg/dL (70-99) H [facility] [place] [facility] PERFORMED BY CLINICAL STAFF ID Date Data Source [id number] 11/08/2020 09:27:37 AM EST [facility] [place] [facility] Name Value Range Interpretation Code Description Data Tere rce(s) Supporting Document(s) SODIUM 139 mmol/L (136-145) [facility] [place] [facility] POTASSIUM 3.5 mmol/L (3.6-5.2) L [facility] [place] [facility] CHLORIDE 105 mmol/L (100-108) [facility] [place] [facility] CO2 28 mmol/L (22-31) [facility] [place] [facility] ANION GAP 6 mmol/L (7-16) L [facility] [place] [facility] UREA NITROGEN 14 mg/dL (7-24) [facility] [place] [facility] CREATININE 0.73 mg/dL (0.60-1.00) [facility] [place] [facility] BUN/CREAT RATIO 19.2 RATIO (10.0-20.0) [facility] GLUCOSE 313 mg/dL (70-99) H [facility] [place] [facility] CALCIUM 8.0 mg/dL (8.4-10.2) L [facility] [place] [facility] GFR >60 ml/min/1.73m2 (>59) [facility] [place] [facility] GFR ( AMER) >60 ml/min/1.73m2 (>59) [facility] [place] [facility] GFR INTERPRETATION [facility] --NORMAL KIDNEY FUNCTION OR MILD DISEASE - GFR >OR= 60CHRONIC KIDNEY DISEASE - GFR 15 - 59RENAL FAILURE - GFR <15 Est. GFR calculation based on the MDRDstudy equation, which assumes a steadystate for creatinine. Est. GFR should notbe used for medication dosing. ID Date Data Source [id number] 11/08/2020 08:56:55 AM EST [facility] [place] [facility] Name Value Range Interpretation Code Description Data Tere rce(s) Supporting Document(s) WBC 9.8 10*3/uL (4.1-11.0) [facility] [place] [facility] [place] RBC 2.49 10*6/uL (4.00-5.40) L [facility] [place] [facility] HGB 7.4 g/dL (12.0-16.0) L [facility] [place] [facility] HCT 22.1 % (36.0-47.0) L [facility] [place] [facility] MCV 88.8 fL (80.0-95.0) [facility] [place] [facility] MCH 29.9 pg (27.0-32.0) [facility] [place] [facility] MCHC 33.7 g/dL (32.0-36.0) [facility] [place] [facility] RDW 20.2 % (10.5-14.5) H [facility] [place] [facility] PLT 180 10*3/uL (150-450) [facility] [place] [facility] MPV 8.7 fL (7.1-10.7) [facility] [place] [facility] ID Date Data Source [id number] 11/08/2020 07:36:28 AM EST [facility] [place] [facility] Name Value Range Interpretation Code Description Data Tere rce(s) Supporting Document(s) POC GLUCOSE 380 mg/dL (70-99) H [facility] [place] [facility] PERFORMED BY CLINICAL STAFF ID Date Data Source [id number] 11/08/2020 06:22:36 AM EST [facility] [place] [facility] Name Value Range Interpretation Code Description Data Tere rce(s) Supporting Document(s) POC GLUCOSE 481 mg/dL (70-99) HH [facility] [place] [facility] NOTIFIED NURSEPERFORMED BY CLINICAL S TAFF ID Date Data Source [id number] 11/08/2020 04:16:53 AM EST [facility] [place] [facility] Name Value Range Interpretation Code Description Data Tere rce(s) Supporting Document(s) POC GLUCOSE 452 mg/dL (70-99) HH [facility] [place] [facility] PERFORMED BY CLINICAL STAFF ID Date Data Source [id number] 11/08/2020 03:12:16 AM EST [facility] [place] [facility] Name Value Range Interpretation Code Description Data Tere rce(s) Supporting Document(s) POC GLUCOSE 452 mg/dL (70-99) HH [facility] [place] [facility] PERFORMED BY CLINICAL STAFF ID Date Data Source [id number] 11/08/2020 02:08:56 AM EST [facility] [place] [facility] Name Value Range Interpretation Code Description Data Tere rce(s) Supporting Document(s) POC GLUCOSE 429 mg/dL (70-99) HH [facility] [place] [facility] NOTIFIED NURSEPERFORMED BY CLINICAL S TAFF ID Date Data Source [id number] 11/07/2020 10:49:41 PM EST [facility] [place] [facility] Name Value Range Interpretation Code Description Data Tere rce(s) Supporting Document(s) POC GLUCOSE 166 mg/dL (70-99) H [facility] [place] [facility] PERFORMED BY CLINICAL STAFF ID Date Data Source [id number] 11/07/2020 10:49:36 PM EST [facility] [place] [facility] Name Value Range Interpretation Code Description Data Tere rce(s) Supporting Document(s) POC GLUCOSE 169 mg/dL (70-99) H [facility] [place] [facility] PERFORMED BY CLINICAL STAFF ID Date Data Source [id number] 11/07/2020 10:49:17 PM EST [facility] [place] [facility] Name Value Range Interpretation Code Description Data Tere rce(s) Supporting Document(s) POC GLUCOSE 48 mg/dL (70-99) LL [facility] [place] [facility] PERFORMED BY CLINICAL STAFF ID Date Data Source [id number] 11/07/2020 09:52:14 PM EST [facility] [place] [facility] Name Value Range Interpretation Code Description Data Tere rce(s) Supporting Document(s) GLUCOSE 51 mg/dL (70-99) L [facility] [place] [facility] ID Date Data Source [id number] 11/07/2020 10:49:11 PM EST [facility] [place] [facility] Name Value Range Interpretation Code Description Data Tere rce(s) Supporting Document(s) POC GLUCOSE 32 mg/dL (70-99) LL [facility] [place] [facility] NOTIFIED NURSEPERFORMED BY CLINICAL S TAFF ID Date Data Source [id number] 11/07/2020 08:55:28 PM EST [facility] [place] [facility] Name Value Range Interpretation Code Description Data Tere rce(s) Supporting Document(s) POC GLUCOSE 20 mg/dL (70-99) LL [facility] [place] [facility] NOTIFIED NURSEPERFORMED BY CLINICAL S TAFF ID Date Data Source [id number] 11/07/2020 05:33:24 PM EST [facility] [place] [facility] Name Value Range Interpretation Code Description Data Tere rce(s) Supporting Document(s) POC GLUCOSE 151 mg/dL (70-99) H [facility] [place] [facility] NOTIFIED NURSEPERFORMED BY CLINICAL S TAFF ID Date Data Source [id number] 11/07/2020 12:55:03 PM EST [facility] [place] [facility] Name Value Range Interpretation Code Description Data Tere rce(s) Supporting Document(s) POC GLUCOSE 177 mg/dL (70-99) H [facility] [place] [facility] NOTIFIED NURSEPERFORMED BY CLINICAL S TAFF ID Date Data Source [id number] 11/07/2020 08:50:48 AM EST [facility] [place] [facility] Name Value Range Interpretation Code Description Data Tere rce(s) Supporting Document(s) POC GLUCOSE 231 mg/dL (70-99) H [facility] [place] [facility] NOTIFIED NURSEPERFORMED BY CLINICAL S TAFF ID Date Data Source [id number] 11/07/2020 08:39:35 AM EST [facility] [place] [facility] Name Value Range Interpretation Code Description Data Tere rce(s) Supporting Document(s) SODIUM 138 mmol/L (136-145) [facility] [place] [facility] POTASSIUM 3.8 mmol/L (3.6-5.2) [facility] [place] [facility] CHLORIDE 105 mmol/L (100-108) [facility] [place] [facility] CO2 22 mmol/L (22-31) [facility] [place] [facility] ANION GAP 11 mmol/L (7-16) [facility] [place] [facility] UREA NITROGEN 10 mg/dL (7-24) [facility] [place] [facility] CREATININE 0.65 mg/dL (0.60-1.00) [facility] [place] [facility] BUN/CREAT RATIO 15.4 RATIO (10.0-20.0) [facility] GLUCOSE 233 mg/dL (70-99) H [facility] [place] [facility] CALCIUM 8.1 mg/dL (8.4-10.2) L [facility] [place] [facility] GFR >60 ml/min/1.73m2 (>59) [facility] [place] [facility] GFR ( AMER) >60 ml/min/1.73m2 (>59) [facility] [place] [facility] GFR INTERPRETATION [facility] --NORMAL KIDNEY FUNCTION OR MILD DISEASE - GFR >OR= 60CHRONIC KIDNEY DISEASE - GFR 15 - 59RENAL FAILURE - GFR <15 Est. GFR calculation based on the MDRDstudy equation, which assumes a steadystate for creatinine. Est. GFR should notbe used for medication dosing. ID Date Data Source [id number] 11/07/2020 08:17:32 AM EST [facility] [place] [facility] Name Value Range Interpretation Code Description Data Tere rce(s) Supporting Document(s) WBC 13.7 10*3/uL (4.1-11.0) H [facility] [place] [facility] RBC 2.70 10*6/uL (4.00-5.40) L [facility] [place] [facility] HGB 7.6 g/dL (12.0-16.0) L [facility] [place] [facility] HCT 23.4 % (36.0-47.0) L [facility] [place] [facility] PATIENT TRANSFUSED MCV 86.7 fL (80.0-95.0) [facility] [place] [facility] MCH 28.3 pg (27.0-32.0) [facility] [place] [facility] MCHC 32.6 g/dL (32.0-36.0) [facility] [place] [facility] RDW 20.7 % (10.5-14.5) H [facility] [place] [facility] PLT 187 10*3/uL (150-450) [facility] [place] [facility] MPV 8.6 fL (7.1-10.7) [facility] [place] [facility] ID Date Data Source [id number] 11/07/2020 01:43:49 AM EST [facility] [place] [facility] Name Value Range Interpretation Code Description Data Tere rce(s) Supporting Document(s) HCT 18.5 % (36.0-47.0) LL [facility] [place] [facility] RESULT VERIFIED BY REPEAT TESTING.RESULT (S) CALLED TO AND READ BACK [facility] ON 6SIR ON 11.07.20 [place] 0142 [place] [id number] ID Date Data Source [id number] 11/07/2020 01:03:14 AM EST [facility] [place] [facility] Name Value Range Interpretation Code Description Data Tere rce(s) Supporting Document(s) POC GLUCOSE 180 mg/dL (70-99) H [facility] [place] [facility] NOTIFIED NURSEPERFORMED BY CLINICAL S TAFF ID Date Data Source [id number] 11/06/2020 09:55:11 PM EST [facility] [place] [facility] Name Value Range Interpretation Code Description Data Tere rce(s) Supporting Document(s) POC GLUCOSE 115 mg/dL (70-99) H [facility] [place] [facility] PERFORMED BY CLINICAL STAFF ID Date Data Source [id number] 11/06/2020 09:13:32 PM EST [facility] [place] [facility] Name Value Range Interpretation Code Description Data Tere rce(s) Supporting Document(s) POC GLUCOSE 81 mg/dL (70-99) [facility] [place] [facility] PERFORMED BY CLINICAL STAFF ID Date Data Source [id number] 11/06/2020 08:43:30 PM EST [facility] [place] [facility] Name Value Range Interpretation Code Description Data Tere rce(s) Supporting Document(s) POC GLUCOSE 74 mg/dL (70-99) [facility] [place] [facility] PERFORMED BY CLINICAL STAFF ID Date Data Source [id number] 11/06/2020 08:11:24 PM EST [facility] [place] [facility] Name Value Range Interpretation Code Description Data Tere rce(s) Supporting Document(s) POC GLUCOSE 95 mg/dL (70-99) [facility] [place] [facility] PERFORMED BY CLINICAL STAFF ID Date Data Source [id number] 11/07/2020 06:54:00 AM EST [facility] [id number] [place], [place] [address]ALQIZLY NAME: AURA MESAATE OF : 1975REPORT: OPERATIONPATIENT NUMBER: [id number] STATUS: IPMEDICAL RECORD NUMBER: [id number] OF ADMISSION: 11/06/2020DATE OF DISCHARGE:ROOM: 01DATE OF [...] is a very pleasant female status post L5-Y5jyxlgsglg lumbar interbody fusion about 6 weeks ago in 08/2020. Thepatient developed progressive spondylolisthesis of L5-S1 with an L5-R2inykr IV spondylolisthesis. CT scan was significant for [...] screws from the previous operation and the N3vuobquu screws from the previous operation. I exposed the previoushardware. I then removed the Globus implant at L5-S1 from her originalsurgery. The set screws were removed and then the rods removed. Thebilateral L5 and S1 screws were removed. The L5 screws bilaterally wereclosely loose without any significant purchase within the bone. The J6ifvnnqx screws had fair purchase. The S1 pedicle screws were removed, Bairon increased the diameter of the pedicle screws from a 6.5 x 25 mm screw upto an 8.5 x 40 mm screw at S1 bilaterally. This was a revision of the W4hpzoygp screws bilaterally. I then revised the bilateral [...] I then decorticated the L3 transverse processes, N1pxrtarsixr processes, L5 transverse processes, and sacral ala [...] FELICITA Mcguireictated: 11/06/2020 18:21DT: 11/06/2020 18:31Job #: [id number]: [facility] computer generated reports are not confirmed orauthenticated unless they are signed by the providerElectronically Authenticated and Edited by:ELÍAS GORDON MD On 11/07/2020 06:54 AM EST Name Value Range Interpretation Code Description Data Tere rce(s) Supporting Document(s) ID Date Data Source [id number] 11/06/2020 05:25:54 PM EST [facility] [place] [facility] Name Value Range Interpretation Code Description Data Tere rce(s) Supporting Document(s) POC GLUCOSE 294 mg/dL (70-99) H [facility] [place] [facility] NOTIFIED NURSEPERFORMED BY CLINICAL S TAFF ID Date Data Source [id number] 11/06/2020 04:36:35 PM EST [facility] [place] [facility] Name Value Range Interpretation Code Description Data Tere rce(s) Supporting Document(s) POC GLUCOSE 383 mg/dL (70-99) H [facility] [place] [facility]us PERFORMED BY CLINICAL STAFF ID Date Data Source [id number] 11/06/2020 03:39:01 PM EST [facility] [place] [facility] Name Value Range Interpretation Code Description Data Tere rce(s) Supporting Document(s) POC GLUCOSE 403 mg/dL (70-99) HH [facility] [place] [facility] PERFORMED BY CLINICAL STAFF ID Date Data Source [id number] 11/06/2020 04:14:04 PM EST [facility] [place] [facility] Name Value Range Interpretation Code Description Data Tere rce(s) Supporting Document(s) WBC 18.7 10*3/uL (4.1-11.0) H [facility] [place] [facility] RBC 2.95 10*6/uL (4.00-5.40) L [facility] [place] [facility] HGB 8.1 g/dL (12.0-16.0) L [facility] [place] [facility] HCT 25.3 % (36.0-47.0) L [facility] [place] [facility] MCV 85.8 fL (80.0-95.0) [facility] [place] [facility] MCH 27.3 pg (27.0-32.0) [facility] [place] [facility] MCHC 31.9 g/dL (32.0-36.0) L [facility] [place] [facility] RDW 23.1 % (10.5-14.5) H [facility] [place] [facility] PLT 276 10*3/uL (150-450) [facility] [place] [facility] MPV 9.1 fL (7.1-10.7) [facility] [place] [facility] ID Date Data Source [id number] 11/06/2020 03:46:09 PM EST [facility] [place] [facility] Name Value Range Interpretation Code Description Data Tere rce(s) Supporting Document(s) SODIUM 137 mmol/L (136-145) [facility] [place] [facility] POTASSIUM 4.5 mmol/L (3.6-5.2) [facility] [place] [facility] CHLORIDE 106 mmol/L (100-108) [facility] [place] [facility] CO2 21 mmol/L (22-31) L [facility] [place] [facility] ANION GAP 10 mmol/L (7-16) [facility] [place] [facility] UREA NITROGEN 10 mg/dL (7-24) [facility] [place] [facility] CREATININE 0.76 mg/dL (0.60-1.00) [facility] [place] [facility] BUN/CREAT RATIO 13.2 RATIO (10.0-20.0) [facility] GLUCOSE 398 mg/dL (70-99) H [facility] [place] [facility] CALCIUM 7.6 mg/dL (8.4-10.2) L [facility] [place] [facility] GFR >60 ml/min/1.73m2 (>59) [facility] [place] [facility] GFR ( AMER) >60 ml/min/1.73m2 (>59) [facility] [place] [facility] GFR INTERPRETATION [facility] --NORMAL KIDNEY FUNCTION OR MILD DISEASE - GFR >OR= 60CHRONIC KIDNEY DISEASE - GFR 15 - 59RENAL FAILURE - GFR <15 Est. GFR calculation based on the MDRDstudy equation, which assumes a steadystate for creatinine. Est. GFR should notbe used for medication dosing. ID Date Data Source [id number] 11/06/2020 02:31:50 PM EST [facility] [place] [facility] Name Value Range Interpretation Code Description Data Tere rce(s) Supporting Document(s) POC GLUCOSE 353 mg/dL (70-99) H [facility] [place] [facility] PERFORMED BY CLINICAL STAFF ID Date Data Source [id number] 11/06/2020 02:21:44 PM EST [facility] [place] [facility] Name Value Range Interpretation Code Description Data Tere rce(s) Supporting Document(s) POC GLUCOSE 237 mg/dL (70-99) H [facility] [place] [facility] NOTIFIED PROVIDERPERFORMED BY CLINICA L STAFF ID Date Data Source [id number] 11/06/2020 02:21:34 PM EST [facility] [place] [facility] Name Value Range Interpretation Code Description Data Tere rce(s) Supporting Document(s) POC GLUCOSE 121 mg/dL (70-99) H [facility] [place] [facility] NOTIFIED PROVIDERPERFORMED BY [facility] ID Date Data Source [id number] 11/09/2020 06:48:26 AM EST [facility] [place] [facility] [place] SPECIMEN DESCRIPTION SITE LUMBAR DEEP 1SPECIAL REQUESTS NONECULTURE RESULTS NO ANAEROBES ISOLATEDREPORT STATUS FINAL 11/09/2020 Name Value Range Interpretation Code Description Data Tere rce(s) Supporting Document(s) ID Date Data Source [id number] 11/09/2020 06:47:52 AM EST [facility] [place] [facility] [place] SPECIMEN DESCRIPTION SITE LUMBAR DEEP 2SPECIAL REQUESTS NONECULTURE RESULTS NO ANAEROBES ISOLATEDREPORT STATUS FINAL 11/09/2020 Name Value Range Interpretation Code Description Data Tere rce(s) Supporting Document(s) ID Date Data Source [id number] 11/08/2020 11:35:56 AM EST [facility] [place] [facility] SPECIMEN DESCRIPTION SITE LUMBAR DEEP 1SPECIAL REQUESTS NONEGRAM STAIN FEW (<10/LPF) WHITE BLOOD CELLS NO BACTERIACULTURE RESULTS NO GROWTHREPORT STATUS FINAL 11/08/2020 Name Value Range Interpretation Code Description Data Tere rce(s) Supporting Document(s) ID Date Data Source [id number] 11/08/2020 11:37:37 AM EST [facility] [place] [facility] [place] SPECIMEN DESCRIPTION SITE LUMBAR DEEP 2SPECIAL REQUESTS NONEGRAM STAIN FEW (<10/LPF) WHITE BLOOD CELLS NO BACTERIACULTURE RESULTS NO GROWTHREPORT STATUS FINAL 11/08/2020 Name Value Range Interpretation Code Description Data Tere rce(s) Supporting Document(s) ID Date Data Source [id number] 11/08/2020 12:27:13 AM EST [facility] [place] [facility] SPEC EXP DATE 11/07/2020TEST ING SITE PERFORMED AT [address] [place], [place] [address]UNIT NUMBER [id number] COMPONENT TYPE LEUKOPOOR RED CELLSUNIT DIVISION 00STATUS OF UNIT TRANSFUSEDTRANSFUSION STATUS OK TO TRANSFUSECROSSMATCH RESULT COMPATIBLEUNIT NUMBER [id number] COMPONENT TYPE LEUKOPOOR RED CELLSUNIT DIVISION 00STATUS OF UNIT TRANSFUSEDTRANSFUSION STATUS OK TO TRANSFUSECROSSMATCH RESULT COMPATIBLEUNIT NUMBER [id number] COMPONENT TYPE LEUKOPOOR RED CELLSUNIT DIVISION 00STATUS OF UNIT TRANSFUSEDTRANSFUSION STATUS OK TO TRANSFUSECROSSMATCH RESULT COMPATIBLE Name Value Range Interpretation Code Description Data Tere rce(s) Supporting Document(s) ID Date Data Source [id number] 11/06/2020 07:37:19 AM EST [facility] [place] [facility] Name Value Range Interpretation Code Description Data Tere rce(s) Supporting Document(s) HEMOGLOBIN A1C @ 6.7 % (4.0-6.0) H [facility] Performed using [employer] y.Care must be taken when interpreting QbO3jviyirna in patients with a hemoglobin variantor decreased erythrocyte lifespan. Values 5.7 - 6.4% suggest prediabetes.Values >=6.5% are diagnostic for diabetes.REFERENCE: DIABETES CARE 2018: 41(S13-S27).PERFORMED AT [address] [place] [address] EST [place] GLUCOSE 146 mg/dL [facility] ID Date Data Source [id number] 11/06/2020 06:17:14 AM EST [facility] [place] [facility] Name Value Range Interpretation Code Description Data Tere rce(s) Supporting Document(s) POC GLUCOSE 172 mg/dL (70-99) H [facility] [place] [facility] PERFORMED BY CLINICAL STAFF ID Date Data Source [id number] 11/06/2020 07:40:36 AM EST [facility] [place] [facility] Name Value Range Interpretation Code Description Data Tere rce(s) Supporting Document(s) POC GLUCOSE 226 mg/dL (70-99) H [facility] [place] [facility] PERFORMED BY CLINICAL STAFF ID Date Data Source [id number] 11/04/2020 03:54:47 PM EST [facility], PCName: Eli MesaDOB: 1975Provider: Murali GordoninDOS: 11/04/2020 Reason For VisitSbear Mesa is here today for preop. Reports ongoing low back, BLE pain>R. Other DOI/DOO: chronic pain. Surgery Description: L3-S1 posterior fusion w/instrumentation,lateral arthrodesis,PLIF,L5-S1 bilateral facetectomies,revision L5-S1 Laminectomy,L3-5 Laminectomy decompression,S1 pedicle subtraction osteotomy,bilateral iliac fixation,ICBG,L5-S1 hardware removal/cage removal,revision L5-S1 pedicle screws. Expected DOS: 11.06.20. 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 Patient's last day worked was . Plan X-Ray I Scoliosis - 2+ views (XRays were ordered, obtained and interpreted today in theoffice. Indication: pain/dysfunction.); Status:Complete; Done: [id number] Perform:SOS14 (General); Due:[id number]; Last Updated By:Irene Yanez; 11/04/2020 3:39:40 PM;Ordered; For:Low back pain; Ordered By:Elías Gordon; You need to quit smoking.; Status:Complete; Done: [id number] Last Updated By:Lexi Lin; 11/04/2020 3:26:43 PM;Ordered; [...] L5-S1, progressive listhesis, grade 4 spinal listhesis L5-U4Gmdfqfkvtxcfqpro spondylolisthesis, grade 4, cage migration, construct failure, [...] rce(s) Supporting Document(s) ID Date Data Source [id number] 11/05/2020 10:32:42 AM EST [facility] [place] [facility] [place] Name Value Range Interpretation Code Description Data [facility] rce(s) Supporting Document(s) HEMOGLOBIN A1C @ 7.0 % (4.0-6.0) H [facility] [place] [facility] [place] Performed using Siemens [place] immunoassa y.Care must be taken when interpreting ChL2bzejjbwf in patients with a hemoglobin variantor decreased erythrocyte lifespan. Values 5.7 - 6.4% suggest prediabetes.Values >=6.5% are diagnostic for diabetes.REFERENCE: DIABETES CARE 2018: 41(S13-S27).PERFORMED AT [address] [facility] [address] EST AVERAGE GLUCOSE 154 mg/dL [facility] [place] ID Date Data Source [id number] 11/05/2020 10:08:22 AM EST [facility] [place] [facility] Name Value Range Interpretation Code Description Data Tere rce(s) Supporting Document(s) WBC 8.6 10*3/uL (4.1-11.0) [facility] [place] [facility] [place] [place] RBC 4.19 10*6/uL (4.00-5.40) [facility] [place] [facility] HGB 11.1 g/dL (12.0-16.0) L [facility] [place] [facility] HCT 36.0 % (36.0-47.0) [facility] [place] [facility] PERFORMED AT [address] [facility] [address] MCV 86.1 fL (80.0-95.0) [facility] [place] [facility] MCH 26.5 pg (27.0-32.0) L [facility] [place] [facility] MCHC 30.8 g/dL (32.0-36.0) L [facility] [place] [facility] RDW 27.2 % (10.5-14.5) H [facility] [place] [facility] PLT 336 10*3/uL (150-450) [facility] [place] [facility] MPV 9.2 fL (7.1-10.7) [facility] [place] [facility] NEUT % 70.7 % (35.0-75.0) [facility] [place] [facility] LYMPH % 20.1 % (16.0-52.0) [facility] [place] [facility] MONO % 6.8 % (0.0-8.0) [facility] [place] [facility] EOS % 2.1 % (0.0-5.0) [facility] [place] [facility] BASO % 0.3 % (0.0-4.0) [facility] [place] [facility] NEUT # 6.1 10*3/uL (1.8-7.7) [facility] [place] [facility] LYMPH # 1.7 10*3/uL (1.2-4.8) [facility] [place] [facility] MONO # 0.6 10*3/uL (0.0-0.8) [facility] [place] [facility] Eosinophils [#/volume] in Blood by Automated count 0.2 10*3/uL (0.0-0 .5) [facility] [place] [facility] BASO # 0.0 10*3/uL (0.0-0.2) [facility] [place] [facility] ID Date Data Source [id number] 11/04/2020 07:54:09 PM EST [facility] [place] [facility] SPEC EXP DATE 11/07/2020PATI ENT ABO/Rh O POSITIVEANTIBODY SCREEN NEGATIVETESTING SITE PERFORMED AT [address] [facility] [address]QEOVL BANK COMMENT BLOOD TYPE CONFIRMED. Name Value Range Interpretation Code Description Data Tere rce(s) Supporting Document(s) ID Date Data Source [id number] 11/05/2020 09:35:27 AM EST [facility] [place] [facility] Name Value Range Interpretation Code Description Data Tere rce(s) Supporting Document(s) SPECIMEN DESCRIPTION [facility] [place] STAPH SCREEN RESULTS (ONEGSA) [facility] [place] COMMENT [facility] [place] [facility] GENE TO DETECT STAPH AUREUS. (2) RT-P CR WAS PERFORMED FOR THE mecA AND SCC[employer] GENES TO DETECT METHICILLIN RESISTANCE IN STAPH AUREUS. ID Date Data Source [id number] 11/03/2020 01:40:00 PM EST [facility] Name Value Range Interpretation Code Description Data Tere rce(s) Supporting Document(s) SARS coronavirus 2 RNA [Presence] in Res piratory specimen by CORONA with probe detection [facility] This lab was ordered by [facility] and reported by [employer]. ID Date Data Source [id number] 10/29/2020 01:43:29 PM EST [facility], PCName: Eli MesaDOB: 1975Provider: June [...] Facetectomies and Bilateral Foraminotomie. 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 History of Present IllnessStates after surgery she is doing wellDeveloped increasing pain mid- to [facility]--MRI performedLow back pain has continuedEpisodic bilateral [...] possible hardware back out [facility]18: L5- S1 spinal listhesis; right L5-S1 disc herniationI lumbar [facility] 08/14/2020: L5-S1 spondylolisthesis, L5-S1 disc herniation; bilateral foraminal narrowing. No sign ificant change compared to MRI of 08/09/2018[facility] 10/06/2020: Postop changes. Reviewed in detail [...] today inthe office. Indication: pain/dysfunction.); Status:Complete; Done: [id number] Perform:SOS22; Due:89Tjg8509; Last Updated By:Gaviota Cesar; 10/29/2020 10:37:29 AM;Ordered; For:Low back pain; Ordered By:Eder Polo; CT Scan (SOS) Referral Treatment Treatment Status: Need Information - FinancialAuthorization Requested for: [id number] Ordered Stat;For: Aftercare following surgery of the musculoskeletal system, Low back pain; Ordered By: Eder Polo Performed: Order Comments: Please schedule at [facility]. Due: [id number]; Last Updated By: Inga Rutherford; 10/29/2020 11:30:48 [...] document was dictated and electronically signed using Soshowise software. A reasonable attempt at proof reading [...] rce(s) Supporting Document(s) ID Date Data Source [id number] 10/21/2020 03:34:00 PM EST [facility] Name Value Range Interpretation Code Description Data Tere rce(s) Supporting Document(s) SARS coronavirus 2 RNA [Presence] in Res piratory specimen by CORONA with probe detection [facility] This lab was ordered by [facility] a nd reported by [facility]. ID Date Data Source [id number] 10/21/2020 01:22:00 PM EST [facility] ([facility] [...] [facility] ID Date Data Source [id number] 10/21/2020 11:15:00 AM EST [facility] ([facility] Hernandes [...] [facility] ID Date Data Source [id number] 10/21/2020 10:37:00 AM EST [facility] ([facility] Name Value Range Interpretation Code Description Data Tere rce(s) Supporting Document(s) Lipoprotein lipase [Enzymatic activity/volume] in Serum or Plasm a 25 U/L 73-393 [facility] ([facility] ID Date Data Source [id number] 10/21/2020 10:37:00 AM EST [facility] (Mary Hernandes [...] [facility] ID Date Data Source [id number] 10/21/2020 10:37:00 AM EST [facility] (Mary Hernandes [...] HGB Conc 29.4 g/dL 32.0-36.5 [facility] ([facility] Red Cell Distribution Width 20.6 % 11.5-14.5 [facility] Platelet Count, Automated 478 10 150-450 [facility] Nucleated Red Blood Cell % 0.0 % 0-0 MED ENT ([facility] ID Date Data Source [id number] 10/21/2020 10:31:00 AM EST [facility] ([facility] Hernandes [...] [facility] ID Date Data Source [id number] 10/19/2020 09:08:01 PM EST [facility] PCName: Eli MesaDOB: 1975Provider: Dk [...] patient's pain is managed by Dr Johnson. 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 History of Present IllnessPatient is a 45-year-old female presents to the office with a chief complaint of constant right-sided low back pain with constant radiating pain in the right lower extremity. Recent exacerbation without injury. She is status post L5-S1 laminectomy/fusion on 09/15/2020. Evaluated at [facility] where MRI was performed. Utilizing tizanidine and gabapentin. Denies any signs of infection. AssessmentLow back painRight lumbar radiculitis Plan Start: Diclofenac Sodium 75 MG Oral Tablet Delayed Release; 1 po BID MDD:2 Rx By: Brenton Napoles; Dispense: 0 Days ; #:60 Tablet; Refill: 1;For: Low back pain; PHIL = N; Verified Transmission to [facility]; Last Updated By: [email or web address]; 10/14/2020 2:33:52 PM Renew: HYDROcodone-Acetaminophen 7.5-325 MG Oral Tablet; TAKE 1 TO 2 TABLETSEVERY 6 HOURS NEEDED FOR PAIN. Do not exceed more than6 tablets per 24hr MDD:6 Rx By: Brenton Napoles; Dispense: 0 Days ; #:60 Tablet; Refill: 0;For: Aftercare following surgery of the musculoskeletal system, Low back pain; PHIL = N; Verified Transmission to [facility] #13; Msg to Pharmacy: Reference #:[id number]; Last Updated By: [email or web address]; 10/14/2020 4:04:01 PM Patient is status post [...] document was dictated and electronically signed using [employer] Speaking software. A reasonable attempt at proof reading has been made to minimize errors. Please call with any questions. Signatures Elect ronically signed by : Cailin Wolfe; Oct 19 2020 3:38PM EST (Author) Electronically signed by : Eder Polo M.D.; Oct 19 2020 9:07PM EST Name Value Range Interpretation Code Description Data Tere rce(s) Supporting Document(s) ID Date Data Source [id number] 10/08/2020 07:03:00 PM EST [facility] ([facility] [...] pathogens. DISCLAIMER: Testing was performed using the DigitalChalkID SARS-CoV-2 test. This test was developed and its performance characteristics determined by [employer]. This test has not been FDA cleared [...] or revoked sooner. ID Date Data Source [id number] 10/08/2020 07:03:00 PM EST [facility] (Mary Hernandes [...] pathogens. DISCLAIMER: Testing was performed using the DigitalChalkID SARS-CoV-2 test. This test was developed and its performance characteristics determined by [employer]. This test has not been FDA cleared [...] [facility] ID Date Data Source [id number] 10/08/2020 06:17:00 PM EST [facility] ([facility] Name Value Range Interpretation Code Description Data [facility] rce(s) Supporting Document(s) Glucose [Mass/volume] in Capillary blood by Glucometer 275 mg/dL 70- 105 [facility] ([facility] ID Date Data Source [id number] 10/08/2020 04:55:00 PM EST [facility] ([facility] Name Value Range Interpretation Code Description Data [facility] rce(s) Supporting Document(s) Glucose [Mass/volume] in Capillary blood by Glucometer 254 mg/dL 70- 105 [facility] ([facility] ID Date Data Source [id number] 10/08/2020 02:20:00 PM EST [facility] Name Value Range Interpretation Code Description Data [facility](s) Supporting Document(s) Appearance, Urine RFX Laboratory test result [facility] ([facility] Specific [place] Ur Auto RFX 1.023 1.002-1.035 [facility] (Mary [...] [facility] ID Date Data Source [id number] 10/08/2020 02:10:00 PM EST [facility] ([facility] Name Value Range Interpretation Code Description Data Tere rce(s) Supporting Document(s) Glucose [Mass/volume] in Capillary blood by Glucometer 388 mg/dL 70- 105 [facility] ([facility] ID Date Data Source [id number] 10/08/2020 12:55:00 PM EST [facility] (Mary Hernandes [...] 10 150-450 [facility] ([facility] Angelina % 5.1 % 0.0-5.0 [facility] (Mary ruvalcaba [...] 10 1.5-5.0 [facility] ([facility] Angelina # 0.7 10 0.0-0.8 [facility] ([facility] Neutrophils # 11.0 10 1.5-8.5 [facility] ([facility] Eos # 0.0 10 0.0-0.5 [facility] ([facility] Baso # 0.1 10 0.0-0.2 [facility] ([facility] ID Date Data Source [id number] 10/08/2020 12:55:00 PM EST [facility] (Mary Hernandes [...] [facility] ID Date Data Source [id number] 10/08/2020 12:55:00 PM EST [facility] (Mary Hernandes [...] [facility] ID Date Data Source [id number] 10/08/2020 12:55:00 PM EST [facility] (Mary Hernandes [...] Little GFR Left</content>
<content>ESRD GFR <15 on SALVAGE DETERMINER</content>
<content></content> Chloride Level 97 meq/L 98-107 [facility] ([facility] Carbon Dioxide Level 21 meq/L 21-32 [facility] ([facility] Anion Gap 15 meq/L 8-16 [facility] ([facility] Calcium Level 9.4 mg/dL 8.5-10.1 [facility] ID Date Data Source [id number] 10/08/2020 12:55:00 PM EST [facility] (Mary Hernandes [...] monitoring the treatment of cancer patients. Siemens [place] methodology. ID Date Data Source [id number] 10/08/2020 12:55:00 PM EST [facility] Name Value Range Interpretation Code Description Data Tere rce(s) Supporting Document(s) Hemoglobin A1c 7.1 % [facility] ([facility] <content>REFERENCE RANGES:</content><br/ ><content></content>
<content><=5.6% NORMAL</content>
<content>5.7-6.4% SUGGESTS IMPAIRED GLUCOSE METABOLISM/PREDIABETIC</content>
<content>>= 6.5% ABNORMAL</content>
<content></content> Estimated Average Glucose 157 mg/dL 60-110 [facility] ([facility] ID Date Data Source [id number] 10/08/2020 12:55:00 PM EST [facility] ([facility] Name Value Range Interpretation Code Description Data Tere rce(s) Supporting Document(s) Phosphate [Moles/volume] in Serum or Plasma 3.3 mg/dL 2.5-4.9 [facility] ([facility] Magnesium [Mass/volume] in Serum or Plasma 1.8 mg/dL 1.8-2.4 [facility] ([facility] ID Date Data Source [id number] 10/08/2020 12:55:00 PM EST [facility] ([facility] Name Value Range Interpretation Code Description Data Tere rce(s) Supporting Document(s) Iron (Fe) 18 ug/dL 50-170 [facility] ([facility] Total Iron Binding Capacity 407 ug/dL 250-450 [facility] ([facility] Percent Saturation 4.4 % 13.2-45.0 [facility] (N[facility]un [facility] ID Date Data Source [id number] 10/08/2020 12:55:00 PM EST [facility] ([facility] Name Value Range Interpretation Code Description Data Tere rce(s) Supporting Document(s) Ferritin [Mass/volume] in Serum or Plasma 20 ng/mL 8-252 [facility] ([facility] ID Date Data Source [id number] 10/08/2020 12:13:00 PM EST [facility] ([facility] Name Value Range Interpretation Code Description Data Tere rce(s) Supporting Document(s) Glucose [Mass/volume] in Capillary blood by Glucometer 419 mg/dL 70- 105 [facility] ([facility] ID Date Data Source [id number] 10/06/2020 05:44:00 PM EST [facility] (Mary Hernandes [...] Little GFR Left</content>
<content>ESRD GFR <15 on SALVAGE DETERMINER</content>
<content></content> Chloride Level 102 meq/L 98-107 [facility] [...] [facility] ID Date Data Source [id number] 10/06/2020 05:44:00 PM EST [facility] ([facility] Name Value Range Interpretation Code Description Data Tere rce(s) Supporting Document(s) C reactive protein [Mass/volume] in Serum or Plasma by High sensitivity method 0.85 mg/dL 0.00-0.30 [facility] ([facility] ID Date Data Source [id number] 10/06/2020 05:44:00 PM EST [facility] (Mary Hernandes [...] % 0.0-1.0 [facility] ([facility] Angelina % 5.7 % 0.0-5.0 [facility] (Mary ruvalcaba [...] 10 0.0-0.5 [facility] ([facility] Angelina # 0.5 10 0.0-0.8 [facility] ([facility] Baso # 0.2 10 0.0-0.2 [facility] ([facility] ID Date Data Source [id number] 10/06/2020 05:44:00 PM EST [facility] ([facility] Name Value Range Interpretation Code Description Data Tere rce(s) Supporting Document(s) Erythrocyte sedimentation rate by 2H Westergren method 70 mm/hr 0-2 0 [facility] ([facility] ID Date Data Source [id number] 10/11/2020 05:12:57 PM EST [facility] PCName: Eli MesaDOB: 1975Provider: Brenton [...] patient's pain is managed by Dr Johnson. 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 Patient is not working at this time [...] pain; PHIL = N; Verified Transmission to [facility] #13; Last Updated By: [email or web address].[email or web address]; 09/28/2020 2:43:35 PM Renew: HYDROcodone-Acetaminophen 5-325 MG Oral Tablet; TAKE 1-2 TABLETSEVERY 4 HOURS NEEDED FOR POSTOP PAIN, DO NOT EXCEEDMAX DAILY DOSE OF 8 TABLETS. MDD:8 Rx By: Brenton Napoles; Dispense: 0 Days ; #:80 Tablet; Refill: 0;For: Aftercare following surgery of the musculoskeletal system, Low back pain; PHIL = N; Verified Transmission to [facility] #13; Msg to Pharmacy: Reference #:[id number]; Last Updated By: [email or web address].[email or web address]; 09/28/2020 4:18:45 PM X-Ray I Lumbosacral - [...] document was dictated and electronically signed using Soshow[employer] software. A reasonable attempt at proof reading has been made to minimize errors. Please call with any questions. Signatures Electronically signed by : Cailin Wolfe; Oct 09 2020 9:32PM EST (Author) Electronically signed by : Eder Polo M.D.; Oct 11 2020 5:12PM EST Name Value Range Interpretation Code Description Data Tere rce(s) Supporting Document(s) ID Date Data Source [id number] 09/17/2020 09:07:59 PM [facility] INFORMATIONPatient MRN Name Date of Age Gend*PT [id number] Eli Mesa 1975 45 years F IPPT Location Admission Date/Time Visit ID Attending [id number] 09/15/20 0524 --- --- EPI ID CSN Admitting Provider [id number] Eder Polo MD([id number]) Attestation signed by Eder Polo MD at 09/17/2020 9:07 PMSignature: FELICITA Hartate: September 17, 2020Time: 9:07 PM ORTHOPEDIC DISCHARGE SUMMARYPatient Name: Eli Mesa of : 1975 Age 45 yearsPrimary Physician: MARY HERNANDES MD PCP [place] Date: 09/15/2020 Discharge Date: 09/17/2020Admission Provider: Eder [...] details.Discharge disposition: She will be discharged from [facility] to home in stable condition.Discharge [...] 242 (H) 09/16/2020Significant Imaging:noneConsults:noneSignature: [phone]: September 17, 2020Time: 7:43 AM Name Value Range Interpretation Code Description Data Tere rce(s) Supporting Document(s) ID Date Data Source [id number] 09/17/2020 09:43:58 AM EDT [facility] [place] [facility] Name Value Range Interpretation Code Description Data Tere rce(s) Supporting Document(s) POC NOVA GLU 220 mg/dL (70-99) H [facility] [place] [facility] [place] PERFORMED BY [facility] ID Date Data Source [id number] 09/16/2020 05:30:06 PM EDT [facility] [place] [facility] Name Value Range Interpretation Code Description Data Tere rce(s) Supporting Document(s) POC NOVA GLU 159 mg/dL (70-99) H [facility] [place] [facility] [place] PERFORMED BY [facility] STA[facility] ID Date Data Source [id number] 09/16/2020 02:24:04 PM EDT [facility] [place] [facility] Name Value Range Interpretation Code Description Data Tere rce(s) Supporting Document(s) POC NOVA GLU 243 mg/dL (70-99) H [facility] [place] [facility] [place] PERFORMED BY [facility] STA[facility] ID Date Data Source [id number] 09/16/2020 09:41:27 AM EDT [facility] [place] [facility] Name Value Range Interpretation Code Description Data Tere rce(s) Supporting Document(s) POC NOVA GLU 187 mg/dL (70-99) H [facility] [place] [facility] [place] PERFORMED BY [facility] ID Date Data Source [id number] 09/16/2020 06:01:04 AM EDT [facility] [place] [facility] Name Value Range Interpretation Code Description Data Tere rce(s) Supporting Document(s) SODIUM 137 mmol/L (136-145) [facility] [place] [facility] POTASSIUM 4.0 mmol/L (3.6-5.2) [facility] [place] [facility] CHLORIDE 103 mmol/L (100-108) [facility] [place] [facility] CO2 25 mmol/L (22-31) [facility] [place] [facility] ANION GAP 9 mmol/L (7-16) [facility] [place] [facility] UREA NITROGEN 9 mg/dL (7-24) [facility] [place] [facility] CREATININE 0.72 mg/dL (0.60-1.00) [facility] [place] [facility] BUN/CREAT RATIO 12.5 RATIO (10.0-20.0) [facility] GLUCOSE 242 mg/dL (70-99) H [facility] [place] [facility] CALCIUM 7.9 mg/dL (8.4-10.2) L [facility] [place] [facility] GFR >60 ml/min/1.73m2 (>59) [facility] [place] [facility] GFR ( AMER) >60 ml/min/1.73m2 (>59) [facility] [place] [facility] GFR INTERPRETATION [facility] --NORMAL KIDNEY FUNCTION OR MILD DISEASE - GFR >OR= 60CHRONIC KIDNEY DISEASE - GFR 15 - 59RENAL FAILURE - GFR <15 Est. GFR calculation based on the MDRDstudy equation, which assumes a steadystate for creatinine. Est. GFR should notbe used for medication dosing. ID Date Data Source [id number] 09/16/2020 05:36:10 AM EDT [facility] [place] [facility] Name Value Range Interpretation Code Description Data Tere rce(s) Supporting Document(s) HCT 24.5 % (36.0-47.0) L [facility] [place] [facility] ID Date Data Source [id number] 09/16/2020 01:11:20 AM EDT [facility] [place] [facility] Name Value Range Interpretation Code Description Data Tere rce(s) Supporting Document(s) POC NOVA GLU 267 mg/dL (70-99) H [facility] [place] [facility] [place] PERFORMED BY [facility] ID Date Data Source [id number] 09/15/2020 10:09:14 PM EDT [facility] [place] [facility] Name Value Range Interpretation Code Description Data Tere rce(s) Supporting Document(s) POC NOVA GLU 150 mg/dL (70-99) H [facility] [place] [facility] [place] [facility]MED BY [facility] ID Date Data Source [id number] 09/15/2020 04:11:02 PM EDT [facility] [place] [facility] Name Value Range Interpretation Code Description Data Tere rce(s) Supporting Document(s) POC NOVA GLU 176 mg/dL (70-99) H [facility] [place] [facility] [place] PERFORMED BY [facility] STA[facility] ID Date Data Source [id number] 09/15/2020 12:50:48 PM EDT [address] [id number] Name: ELI MESADOB: 1975Sex: FOrdering Provider: EDER POLOAuthorizing Prov: EDER POLOReferrmartin Provider: Procedure Performed: XR OR SPINE LUMBAR CONTINUATIONExam Date: 09/15/2020 12:44MRN: [id number] Number: [id number] Class: InpatientAccount #: [id number] for Exam: Herniated nucleus pulposus, L5-S1 [M51.27]Spondylolisthesis, lumbosacral region [M43.17]Low back pain [M54.5]Technique: Fluoroscopy with no digital spot images obtained.Comparison: Prior radiographs performed earlier.Findings: Sequential small ypbny-ct-vlwv images were obtained during posterior fusion at L5-S1. Sequential images show placement of pedicle screws. Interbody spacer is in satisfactory position. Anterolisthesis of L5 on S1 is again noted.IMPRESSION: Posterior fusion L5-S1 as above.Report electronically signed by: JESICA LAUGHLIN On 09/15/2020 12:50 PMWorkstation ID: [id number] Name Value Range Interpretation Code Description Data Tere rce(s) Supporting Document(s) ID Date Data Source [id number] 09/15/2020 12:37:02 PM EDT [facility] Name Value Range Interpretation Code Description Data Tere rce(s) Supporting Document(s) POC NOVA GLU 357 mg/dL (70-99) H [facility] [place] [facility] [place] PERFORMED BY [facility] ID Date Data Source [id number] 09/15/2020 11:34:01 AM EDT [facility]PATIE NT INFORMATIONPatient MRN Name Date of Age Gend*PT [id number] Fredrick Mesarenetta Stanley 1975 45 years F IPPT Location Admission Date/Time Visit ID Attending ProviderPERIOP [place] 09/15/20 0524 --- Eder Polo MD([id number]) EPI ID CSN Admitting Provider [id number] Eder Polo MD([id number])Operative ReportPatient Name: Eli Mesa of : 1975 Age 45 yearsPrimary Physician: MARY HERNANDES MD PCP Xikv of Surgery: 09/15/2020Diagnostic InformationPre-Op Diagnosis: L5-S1 spondylolisthesis; lumbar radiculopathyPost- Op Diagnosis: SameProcedure(s) Procedure(s):LUMBAR 5 SACRAL 1 LAMINECTOMY WITH FORAMINOTOMIES INTER BODY FUSION CAGEPLACEMENT, INSTRUMENTATION, ILIAC CREST BONE GRAFT, LOCAL BONE GRAFT (N/A)Surgical StaffSurgeon: MARGARETH Harturgical Staff: OR Seam Steamer: Ivette Guardado RNRadiology Tech: Candido Pollock Relief Seam Steamer: Isabel Swain RNOR Relief Scrub: Ivette Diane; Riya Black Scrub Person: Owen ChristianNeurophysiology Tech: MARGARETH Colvinurgical Assistant Editor: Donato Warner Crayon Painter is a Physician's Vacuum Drum Drier Operator (PA), the Orthopedic Resident wasnot availableAnesthesiaAnesthesia Staff: Anesthesiologist: YINKA SchroederRNA: Sarah Thorne CRNAStudent Nurse Electrical Designer: Clay Menesesesthesia: *Anesthesia ServicesOperative Description Procedure: 1. [...] placed in the pedicles of L5 and [id number]. Checked with C-arm and noted to be [...] @[email or web address]@[email or web address]/Implants:Implant Name Type Inv. Item Serial No. Early Childhood Assistant Lot No. LRB No. UsedCREO DLX THREADED [...] rce(s) Supporting Document(s) ID Date Data Source [id number] 09/15/2020 11:58:27 AM EDT [facility] [place] [facility] Name Value Range Interpretation Code Description Data Tere rce(s) Supporting Document(s) POC NOVA GLU 365 mg/dL (70-99) H [facility] [place] [facility] [place] PERFOR[facility] CLINICAL STAFF ID Date Data Source [id number] 09/15/2020 03:34:48 PM EDT [facility] [place] [facility] Name Value Range Interpretation Code Description Data Tere rce(s) Supporting Document(s) POC NOVA GLU 266 mg/dL (70-99) H [facility] [place] [facility] [place] [facility] CLINICAL STAFF ID Date Data Source [id number] 09/15/2020 09:12:45 AM EDT [address] [address]Bcpkujk Name: ELI MESAB: 1975Sex: FOrdering Provider: EDER POLOAuthorishelton Prov: EDER POLOReflissa Provider: Procedure Performed: XR OR SPINE LUMBARExam Date: 09/15/2020 09:07MRN: [id number] Number: [id number] Class: InpatientAccount #: [id number] for Exam: Herniated nucleus pulposus, L5-S1 [M51.27]Spondylolisthesis, [...] JESICA LAUGHLIN On 09/15/2020 9:12 AMWorkstation ID: [id number] - [id number] Name Value Range Interpretation Code Description Data Tere rce(s) Supporting Document(s) ID Date Data Source [id number] 09/15/2020 03:34:48 PM EDT [facility] [place] [facility] [place] Name Value Range Interpretation Code Description Data Tere rce(s) Supporting Document(s) POC NOVA GLU 185 mg/dL (70-99) H [facility] [place] [facility] [place] [place] PERFOR[facility] BY [facility] CLINICAL STAFF ID Date Data Source [id number] 09/15/2020 08:57:19 AM EDT [address] [id number] Name: ELI MESADOB: 1975Sex: FOrdering Provider: EDER POLOAuthorizing Prov: EDER POLOReferrmartin Provider: Procedure Performed: XR OR SPINE LUMBAR CONTINUATIONExam Date: 09/15/2020 08:47MRN: [id number] Number: [id number] Class: InpatientAccount #: [id number] for Exam: Herniated nucleus pulposus, L5-S1 [M51.27]Spondylolisthesis, [...] JESICA LAUGHLIN On 09/15/2020 8:57 AMWorkstation ID: [id number] - [id number] Name Value Range Interpretation Code Description Data Tere rce(s) Supporting Document(s) ID Date Data Source [id number] 09/15/2020 03:34:48 PM EDT [facility] [place] [facility] Name Value Range Interpretation Code Description Data Tere rce(s) Supporting Document(s) POC NOVA GLU 175 mg/dL (70-99) H [facility] [place] [facility] [place] PERFORMED BY [facility] CLINICAL STAFF ID Date Data Source [id number] 09/15/2020 07:50:05 AM [facility]T [facility] INFORMATIONPatient MRN Name Date of Age Gend*PT [id number] Eli Mesa 1975 45 years F SDAPT Location Admission Date/Time Visit ID Attending Provider --- --- --- --- EPI ID CSN Admitting Provider [id number] ---AirwayPatient location during procedure: ORUrgency: electiveDifficult airway: [...] cmPlacement verified by: chest auscultation and + [id number]: equal breath sounds bilateralGrade view: grade I - full view of glottis Name Value Range Interpretation Code Description Data Tere rce(s) Supporting Document(s) ID Date Data Source [id number] 09/15/2020 06:49:25 AM EDT [facility] [place] [facility] Name Value Range Interpretation Code Description Data Tere rce(s) Supporting Document(s) POC NOVA GLU 133 mg/dL (70-99) H [facility] [place] [facility] [place] [facility] CLINICAL STAFF ID Date Data Source [id number] 09/15/2020 06:35:55 AM EDT [facility] [place] [facility] Name Value Range Interpretation Code Description Data Tere rce(s) Supporting Document(s) POC NOVA GLU 116 mg/dL (70-99) H [facility] [place] [facility] [place] [facility] CLINICAL STAFF ID Date Data Source [id number] 09/15/2020 06:26:12 AM EDT [facility] INFORMATIONPatient MRN Name Date of Age Gend*PT [id number] Balaji Eli J 1975 45 years F SDAPT Location Admission Date/Time Visit [facility] --- Eder Polo MD([id number]) EPI ID CSN Admitting Provider [id number] Eder Polo MD([id number])Pre-op note/discusson/H&P review:Long discussion today.Options were reviewedProcedure was [...] rce(s) Supporting Document(s) ID Date Data Source [id number] 09/15/2020 06:17:51 AM EDT [facility] [place] [facility] Name Value Range Interpretation Code Description Data Tere rce(s) Supporting Document(s) POC NOVA GLU 87 mg/dL (70-99) [facility] [place] [facility] [place] [facility] CLINICAL STAFF ID Date Data Source [id number] 09/15/2020 06:50:25 AM EDT [facility] [place] [facility] Name Value Range Interpretation Code Description Data Tere rce(s) Supporting Document(s) POC [facility] <5.0 IU/L [facility] [place] [facility] [place] INTERPRETATION:<5.0 NEGATIVE5.0- 25.0 INDETERMINATE>25.0 POSITIVELEVELS BETWEEN 5 AND 25 IU/L MAY INDICATEEARLY AND SHOULD BE REPEATED YAMEL BLOOD SAMPLE AFTER 48 HOURS.PERFORMED BY [facility] CLINICAL STAFF ID Date Data Source [id number] 09/15/2020 06:04:58 AM EDT [facility] [place] [facility] Name Value Range Interpretation Code Description Data Tere rce(s) Supporting Document(s) POC NOVA GLU 120 mg/dL (70-99) H [facility] [place] [facility] [place] [facility] CLINICAL STAFF ID Date Data Source [id number] 09/15/2020 05:54:25 AM EDT [facility] [place] [facility] Name Value Range Interpretation Code Description Data Tere rce(s) Supporting Document(s) POC NOVA GLU 37 mg/dL (70-99) LL [facility] [place] [facility] [place] [facility] CLINICAL STAFF ID Date Data Source [id number] 09/10/2020 10:24:00 AM EDT [facility] Name Value Range Interpretation Code Description Data Tere rce(s) Supporting Document(s) SARS coronavirus 2 RNA [facility] This lab was ordered by [facility] [place] [facility] and reported by [employer] ID Date Data Source [id number] 09/11/2020 12:07:56 PM EDT [facility] Name Value Range Interpretation Code Description Data Tere rce(s) Supporting Document(s) SARS-COV-2 CORONA [facility] MARICEL Not DetectedReference range: Not Detecte d This nucleic acid amplification test was developed and its performance characteristics determined by [employer]. Nucleic acid amplification tests include PCR and [...] detected) result in this assay. Performed At: Lab[address] [id number] Raymundo Valero MD Ph:[phone] ID Date Data Source [id number] 09/07/2020 03:35:13 PM EDT [facility] Name Value Range Interpretation Code Description Data Tere rce(s) Supporting Document(s) EKG [facility] FZVXGm0uIjCXMvNrn2BxEzTqMQXcCQ7xnpu9Y1X5mOLiS7VriJNyl5swP2BnL1DbDCBfMKUWFA1JmKRi jb2 [file] +operational risk consultant/P/Pxwgn4+M/UEFtx4xELDN+nnM0s/bUksUnnHQkQsWVAaapyYbTeDckYNkGKiSDZDge4khrqIyy [file] akuU+tm2BoIyV7yY3bGleq0m0x+systems management consultant/5gnw3qapsP/QA4i3KORYgUk448b7u5YytuxpPI0r7q7coq4Ygh jejZugbozOl8OkqNs5SyOi6cvlnhjLdvyJsYjg4ie5 BUwZX9pZToeMWDla4/1NjM3n0V891Ni/h4gtnRSCiZAefrbLPsFL9ArJG5Zt0w2v0J48PgpZ27rmaTar yO5xaM2Ssn2pBNSLGfJB1jxy+5n5kpbEtXpn3dn2Q2+R4pkFa9s+lzMRMaa9sU2E+060hngucEgrM8hP 4qhnsgXu2suU1f8iK3atPADLjY+RF5ruvNiy+vO82q Nohemi/qc5HqIPbmOv8jNA1uHdYugTN0sclfiuw4reTLaytxe+M5dDu+FIU3C5cxp9jrTDX/Zk1Qv3mXpJH [file] 6++8G1jZR8RLUr1mSg6vEpqb21/b3e61C54em0f5wy Z72d0T+1ezl/93o1kokB/YNlzBkZhTj0cvwR4gvzXmY63TaWfE8ao/M7Tcjv19pVl+r0JULVoNmo2ewl oVOi9SeYkDIKaciIMw3ly6ubn2egc19wOL/a6p/SvX///KjX7ef+SV7M2J/qrEnPGeC29n+5/b1b/My/ 3zm/yXebl/bqD/Mi/45RCLhCuvJ15k+7rcz9O4wqTs ua9HqgTbr+vj2bF/6KvaQgxd9Lcx0u2/x/GDDTid6yj/n4hk4L0I/g30b6B/A+UG+kaj2iytXIsa6Y4L YccV92n/U7/S/24jO9WUhIW5f1u2PM5V20Qk/F1WTkql1naBokreDt6a0utR5QWNnbcli5vm8QTGt6W3 3CmVa+l7IumAmJJhLI9d63Mw3Nc153loRFuzq2cbtB n/auuZs/5mfu+lKz55YvxE7gk0T9c35LEVd1kXOpDLXhlQM/iOresDlwrg6e4zmN5qHQ2hjT/Ul14ukr Ft5nEVsn4l6oqe6ndqG8sdVhMAhFnres4bG2ZW1hOGvQIJUZy6Tt74ZNoz4uXnnxljw+eyqJxTC/JqTQ NGuXMAT+GM3ADTFGFtpCbR20ythCdcYvO5IE5OsOcn SjO70H1rMcYwsLYjdy1rRnyXwPoBxh1085P/L+eHAxxGrx8Osb+Q9TSmcy9B7fomL3jzmFVA9obgrZ4u rLN09LahpsGgduDOnmQGbfeytCZr0Nmyvuu18IYBMCxB8VvicvPIaTwme58+Do//Mi/3z3fxX+blzr3K c+3T+0c6usMn+vRiB67+6pj2tD5n3tp2u/0r/f85x9 H7j7yK/H/tx45/mTv0g30h/zIv9/tbtbOe+ZWrdfPc8/SLVfmXebl/sTv/Gx60qyikkxypa/a/zMv9c5 p9p3a5dmeXfF+1BqzPzletPWuEvqU18qsvTkku031pkD89hAdxaaAOfaFroCOzbeXi9oFgZwfxG9/fjh oTZj0ZJa24iBhYeQ2ap7+swc0eeRM9t7n2LGgMQ+systems management consultant [file] bdPxLNQzJZBUDs1Ea832ZBKgCNKDSqn+UriqrRLgsGyvTBWHTPX3OslJELMAR0A= ID Date Data Source [id number] 09/07/2020 03:00:44 PM EDT [facility] INFORMATIONPatient MRN Name Date of Age Gend*PT [id number] Eli Mesa 1975 45 years F OPPT Location Admission Date/Time Visit ID Attending Provider --- --- --- Eder Polo MD([id number]) EPI ID CSN Admitting Provider [id number] Eder Polo MD([id number])HISTORY PHYSICALName: Eli Mesa : 1975 Sex: female [...] warm and dry.HEENT: Head is normocephalic, atraumatic. [place] conjunctivae. Anicteric sclerae.Pupils are equal, round, reactive [...] rce(s) Supporting Document(s) ID Date Data Source [id number] 09/07/2020 09:50:22 PM EDT [facility] [place] [facility] Name Value Range Interpretation Code Description Data Tere rce(s) Supporting Document(s) HEMOGLOBIN A1C @ 7.7 % (4.0-6.0) H [facility] [place] [facility] Performed using Siemens [place] immunoassa y.Care must be taken when interpreting MpD1vxvliame in patients with a hemoglobin variantor decreased erythrocyte lifespan. Values 5.7 - 6.4% suggest prediabetes.Values >=6.5% are diagnostic for diabetes.REFERENCE: DIABETES CARE 2018: 41(S13-S27). EST AVERAGE GLUCOSE 174 mg/dL [facility] ID Date Data Source [id number] 09/07/2020 09:48:42 PM EDT [facility] [place] [facility] [place] SPEC EXP DATE 09/16/2020PATI ENT ABO/Rh O POSITIVEANTIBODY SCREEN NEGATIVETESTING SITE PERFORMED AT [address] [place], [place] [address]OOD BANK COMMENT BLOOD TYPE CONFIRMED. Name Value Range Interpretation Code Description Data Tere rce(s) Supporting Document(s) TYPE AND SCREEN [facility] [place] [facility] ID Date Data Source [id number] 09/07/2020 07:31:58 PM EDT [facility] [place] [facility] Name Value Range Interpretation Code Description Data Tere rce(s) Supporting Document(s) SODIUM 138 mmol/L (136-145) [facility] [place] [facility] POTASSIUM 4.3 mmol/L (3.6-5.2) [facility] [place] [facility] CHLORIDE 104 mmol/L (100-108) [facility] [place] [facility] CO2 26 mmol/L (22-31) [facility] [place] [facility] ANION GAP 8 mmol/L (7-16) [facility] [place] [facility] UREA NITROGEN 10 mg/dL (7-24) [facility] [place] [facility] CREATININE 0.86 mg/dL (0.60-1.00) [facility] [place] [facility] BUN/CREAT RATIO 11.6 RATIO (10.0-20.0) [facility] GLUCOSE 151 mg/dL (70-99) H [facility] [place] [facility] CALCIUM 8.8 mg/dL (8.4-10.2) [facility] [place] [facility] TOTAL PROTEIN 7.8 g/dL (6.4-8.2) [facility] [place] [facility] ALBUMIN 3.4 g/dL (3.5-4.6) L [facility] [place] [facility] GLOBULIN 4.4 g/dL (2.7-4.3) H [facility] [place] [facility] ALB/GLOB RATIO 0.8 RATIO [facility] [place] [facility] ALKALINE PHOSPHATASE 104 U/L (45-117) [facility] BILIRUBIN,TOTAL 0.3 mg/dL (0.0-1.0) [facility] [place] [facility] PLEASE NOTE:Total bilirubin results may be falselyelevated in patients taking Eltrombopag. AST (SGOT) 33 U/L (11-39) [facility] [place] [facility] ALT (SGPT) 39 U/L (12-78) [facility] [place] [facility] GFR >60 ml/min/1.73m2 (>59) [facility] [place] [facility] GFR ( AMER) >60 ml/min/1.73m2 (>59) [facility] [place] [facility] GFR INTERPRETATION [facility] --NORMAL KIDNEY FUNCTION OR MILD DISEASE - GFR >OR= 60CHRONIC KIDNEY DISEASE - GFR 15 - 59RENAL FAILURE - GFR <15 Est. GFR calculation based on the MDRDstudy equation, which assumes a steadystate for creatinine. Est. GFR should notbe used for medication dosing. ID Date Data Source [id number] 09/07/2020 07:16:04 PM EDT [facility] [place] [facility] Name Value Range Interpretation Code Description Data Tere rce(s) Supporting Document(s) APTT 23.8 s (22.0-34.3) [facility] [place] [facility] Y ID Date Data Source [id number] 09/07/2020 07:16:04 PM EDT [facility] [place] [facility] Name Value Range Interpretation Code Description Data Tere rce(s) Supporting Document(s) PT 10.6 s (9.2-11.9) [facility] [place] [facility] INR 1.02 [facility] [place] [facility] SUGGESTED THERAPEUTIC RANGES USING INR F ORSTABILIZED ANTICOAGULATED PATIENTS:STANDARD DOSE THERAPY INR 2.0-3.0 DVT, PE, PREVENT DVT OR EMBOLISMHIGH DOSE THERAPY INR 2.5-3.5 PREVENT EMBOLISM FROM MECHANICAL HEART VALVE ID Date Data Source [id number] 09/07/2020 07:07:38 PM EDT [facility] [place] [facility] Name Value Range Interpretation Code Description Data Tere rce(s) Supporting Document(s) WBC 8.7 10*3/uL (4.1-11.0) [facility] [place] [facility] [place] RBC 3.82 10*6/uL (4.00-5.40) L [facility] [place] [facility] HGB 8.9 g/dL (12.0-16.0) L [facility] [place] [facility] HCT 29.1 % (36.0-47.0) L [facility] [place] [facility] MCV 76.2 fL (80.0-95.0) L [facility] [place] [facility] MCH 23.4 pg (27.0-32.0) L [facility] [place] [facility] MCHC 30.7 g/dL (32.0-36.0) L [facility] [place] [facility] RDW 19.1 % (10.5-14.5) H [facility] [place] [facility] PLT 338 10*3/uL (150-450) [facility] [place] [facility] MPV 9.1 fL (7.1-10.7) [facility] [place] [facility] ID Date Data Source [id number] 09/08/2020 03:21:27 PM EDT [facility] [place] [facility] Name Value Range Interpretation Code Description Data Tere rce(s) Supporting Document(s) SPECIMEN DESCRIPTION [facility] STAPH SCREEN RESULTS (ONEGSA) [facility] COMMENT [facility] [place] [facility] GENE TO DETECT STAPH AUREUS. (2) RT-P CR WAS PERFORMED FOR THE mecA AND [employer] GENES TO DETECT METHICILLIN RESISTANCE IN STAPH AUREUS. 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 Patient is not working at this time [...] bowel or bladder dysfunction. Results/Data OtherMRI lumbar Muslim 08/18/18: L5-S1 spinal listhesis; right L5-S1 disc herniationMRI lumbar SOS 08/14/2020: L5-S1 spondylolisthesis, L5-S1 disc herniation; bilateral foraminal narrowing. No significant change compared to MRI of 08/09/2018 AssessmentRight L5-S1 HNPL5-S1 spondylolisthesis PlanPatient is scheduled for L5-S1 laminectomy, foraminotomies, and possible fusion on 09/15/2020. She will follow-up postoperatively. This document was dictated and electronically signed using [employer] software. A reasonable attempt at proof reading has been made to minimize errors. Please call with any questions. Signatures Electronically signed by : Cailin Wolfe; Sep 14 2020 9:18PM EST (Author) Electronically signed by : Eder Polo M.D.; Sep 15 2020 11:43AM EST Name Value Range Interpretation Code Description Data Tere rce(s) Supporting Document(s) ID Date Data Source [id number] 09/02/2020 03:20:00 PM EDT [facility] ([facility] [...] the patient, SRC:UC ID Date Data Source [id number] 09/02/2020 03:20:00 PM EDT [facility] ([facility] [...] the patient, SRC: ID Date Data Source [id number] 09/02/2020 03:20:00 PM EDT [facility] ([facility] [...] the patient, SRC: ID Date Data Source [id number] 09/02/2020 03:20:00 PM EDT [facility] ([facility] [...] the patient, SRC: ID Date Data Source [id number] 09/02/2020 03:20:00 PM EDT [facility] ([facility] Name Value Range Interpretation Code Description Data Tere rce(s) Supporting Document(s) Hemoglobin A1c/Hemoglobin.total in Blood 8.1 % 4.8-5.6 [facility] SRC: A courtesy copy of this report laws s been sent to the patient, SRC: ID Date Data Source [id number] 09/03/2020 04:05:00 AM EDT [facility] Name Value [...] mg/dL 8.7-10.2 [facility] ID Date Data Source [id number] 09/03/2020 05:05:00 AM EDT [facility] Name Value Range Interpretation Code Description Data Tere rce(s) Supporting Document(s) Hemoglobin A1c 8.1 % 4.8-5.6 Above high normal [facility] Prediabetes: 5.7 - 6.4 Diabetes: >6.4 Glycemic control for adults with diabetes: <7.0 ID Date Data Source [id number] 09/03/2020 08:08:00 AM EDT [facility] Name Value Range Interpretation Code Description Data Tere rce(s) Supporting Document(s) Specific Truman 1.021 1.005-1.030 [facility] pH 6.0 5.0-7.5 [facility] [...] below: [facility] rp ID Date Data Source [id number] 09/04/2020 06:07:00 AM EDT [facility] Name Value Range Interpretation Code Description Data Tere rce(s) Supporting Document(s) Urine Culture, Routine Final report Abnormal (applies to non-numeric results) [facility] ID Date Data Source [id number] 09/03/2020 04:05:00 AM EDT [facility] Name Value [...] 0.0-0.1 [facility] ID Date Data Source [id number] 09/03/2020 08:08:00 AM EDT [facility] Name Value [...] None seen/Few [facility] ID Date Data Source [id number] 09/04/2020 06:07:00 AM EDT [facility] Name Value [...] (group A). (CLSI) ID Date Data Source [id number] 08/14/2020 12:45:04 PM EDT [facility] PC[facility]: Eli Rey: 1975Provider: June [...] The numbness is constant. Results/Data OtherMRI lumbar Muslim 08/18/18: L5-S1 spinal listhesis; right L5-S1 disc [...] document was dictated and electronically signed using [employer] software. A reasonable attempt at proof reading has been made to minimize errors. Please call with any questions. Signatures Electronically signed by : Eder Polo M.D.; Aug 14 2020 10:39AM EST (Author) Electronically signed by : Eder Polo M.D.; Aug 14 2020 12:45PM EST (Author) Name Value Range Interpretation Code Description Data Tere rce(s) Supporting Document(s) ID Date Data Source [id number] 08/14/2020 11:59:00 AM EDT [facility] PATIENT MR#: [id number] NAME: ELI MUJICA OF : 1975REFERRING PHYSICIAN: [...] conus is normal and terminates at the X04vkrupycw endplate level. Cauda equina is also normal.T12-L1: [...] rce(s) Supporting Document(s) ID Date Data Source [id number] 07/16/2020 11:36:39 AM EDT [facility] PCName: Eli Candido: 1975Provider: June [...] Grade 1 spondylolisthesis at L5- S1. [facility] L5-S1 spinal listhesis; right L5-S1 disc herniation Assessment 1. Herniated nucleus pulposus, L5-S1 (722.10) (M51.27) 2. Spondylolisthesis at L5-S1 level (756.12) (M43.17) 3. Low back pain (724.2) (M54.5) condition: Chronicetiology: age- related spine/joint degenerationlevels: L5-S1 Plan X-Ray I Lumbosacral - 2 views (XRays were ordered, obtained and interpreted today inthe office. Indication: pain/dysfunction.); Status:Complete; Done: [id number] Perform:SOS22; Due:[id number]; Last Updated By:Gaviota Cesar; 07/16/2020 11:06:11 AM;Ordered; For:Low back pain; Ordered By:Eder Polo; MRI (SOS) Referral Diagnostic Diagnostic Status: Need Information - FinancialAuthorization Requested for: [id number] Ordered;For: Low back pain; Ordered By: Eder Polo Performed: Order Comments: Wide Bore. Same Day Follow Up. Due: [id number]; Last Updated By: Inga Rutherford; 07/16/2020 11:35:00 [...] document was dictated and electronically signed using [employer] software. A reasonable attempt at proof reading has been made to minimize errors. Please call with any questions. Signatures Electronically signed by : Eder Polo M.D.; Jul 16 2020 11:36AM EST (Author) Name Value Range Interpretation Code Description Data Tere rce(s) Supporting Document(s) ID Date Data Source [id number] 06/29/2020 04:17:00 PM EDT [facility] ([facility]) Name Value Range Interpretation Code Description Data Tere rce(s) Supporting Document(s) Hemoglobin A1c/Hemoglobin.total in Blood 7.2 [facility] ([facility]) Glucose [Mass/volume] in Serum or Plasma 230 [facility] ([facility]) ID Date Data Source [id number] 04/29/2020 05:04:00 AM EDT [facility] ([facility] Name Value Range Interpretation Code Description Data Tere rce(s) Supporting Document(s) Glucose [Mass/volume] in Capillary blood by Glucometer 172 mg/dL 70- 105 [facility] ([facility] ID Date Data Source [id number] 04/29/2020 03:56:00 AM EDT [facility] ([facility] Name Value Range Interpretation Code Description Data Tere rce(s) Supporting Document(s) Glucose [Mass/volume] in Capillary blood by Glucometer 114 mg/dL 70- 105 [facility] ([facility] ID Date Data Source [id number] 04/29/2020 02:31:00 AM EDT [facility] ([facility] Name Value Range Interpretation Code Description Data Tere rce(s) Supporting Document(s) Glucose [Mass/volume] in Capillary blood by Glucometer 91 mg/dL 70- 105 [facility] ([facility] ID Date Data Source [id number] 04/29/2020 01:12:00 AM EDT [facility] ([facility] Name Value Range Interpretation Code Description Data Tere rce(s) Supporting Document(s) Glucose [Mass/volume] in Capillary blood by Glucometer 31 mg/dL 70-105 Below lower panic limits [facility] Doctor Notified Nurse Notified ID Date Data Source [id number] 04/29/2020 01:11:00 AM EDT [facility] ([facility] Name Value Range Interpretation Code Description Data Tere rce(s) Supporting Document(s) Glucose [Mass/volume] in Capillary blood by Glucometer 26 mg/dL 70-105 Below lower panic limits [facility] Doctor Notified Nurse Notified ID Date Data Source [id number] 04/29/2020 12:06:00 AM EDT [facility] ([facility] Name Value Range Interpretation Code Description Data Tere rce(s) Supporting Document(s) Thyrotropin [Units/volume] in Serum or Plasma 10.700 uIU/ML 0.358-3.7 40 [facility] Thyroxine (T4) free [Mass/volume] in Serum or Plasma 0.75 ng/dL 0.76- 1.46 [facility] ID Date Data Source [id number] 04/29/2020 12:06:00 AM EDT [facility] ([facility] [...] Little GFR Left</content>
<content>ESRD GFR <15 on SALVAGE DETERMINER</content>
<content></content> Sodium Level 141 meq/L 136-145 [facility] [...] [facility] ID Date Data Source [id number] 04/29/2020 12:06:00 AM EDT [facility] ([facility] [...] [facility] ID Date Data Source [id number] 04/29/2020 12:06:00 AM EDT [facility] ([facility] [...] % 0.0-3.0 [facility] Angelina % 6.9 % 0.0-5.0 [facility] Lymph % 21.7 % 24.0-44.0 [facility] Nucleated Red Blood Cell % 0.0 % 0-0 [facility] ([facility] Immature Granulocyte % 0.1 % 0-3.0 [facility] Baso % 1.9 % 0.0-1.0 [facility] Angelina # 0.5 10 0.0-0.8 [facility] ([facility] Neutrophils # 4.6 10 1.5-8.5 [facility] Lymph # 1.5 10 1.5-5.0 [facility] Eos # 0.1 10 0.0-0.5 [facility] Baso # 0.1 10 0.0-0.2 [facility] ([facility] ID Date Data Source [id number] 04/28/2020 11:39:00 PM EDT [facility] ([facility] Name Value Range Interpretation Code Description Data Tere rce(s) Supporting Document(s) Glucose [Mass/volume] in Capillary blood by Glucometer 169 mg/dL 70- 105 [facility] ([facility] ID Date Data Source [id number] 03/16/2020 09:31:00 AM EDT [facility] ([facility]) Name Value Range Interpretation Code Description Data Tere rce(s) Supporting Document(s) Glucose [Mass/volume] in Serum or Plasma 325 [facility] ([facility]) Hemoglobin A1c/Hemoglobin.total in Blood 9.7 [facility] ([facility]) ID Date Data Source [id number] 03/16/2020 09:15:00 AM EDT [facility] ([facility]) Name Value Range Interpretation Code Description Data Tere rce(s) Supporting Document(s) Creatinine, Urine 68.2 mg/dL [facility] ([facility]) Lamont/Creat Ratio 236.0 MCG/MG 0.0-30.0 [facility] ([facility]) THE [employer] STATES THAT MICROALBUMINURIA IS PRESENT [...] [facility]) ID Date Data Source [id number] 12/24/2019 07:41:00 PM EST [facility] ([facility]) Name Value Range Interpretation Code Description Data Tere rce(s) Supporting Document(s) Glucose [Mass/volume] in Capillary blood by Glucometer 87 70- 105 [facility] ([facility]) ID Date Data Source [id number] 12/24/2019 07:09:00 PM EST [facility] ([facility]) Name Value Range Interpretation Code Description Data Tere rce(s) Supporting Document(s) Glucose [Mass/volume] in Capillary blood by Glucometer 50 mg/dL 70- 105 [facility] ([facility] [facility]) Procedure Social History Code Duration Value Status Description Data Source(s ) Smoking 11/24/2020 04:07:00 PM EST Daily Smoker completed Daily [facility] Alcohol intake 09/16/2020 12:00:00 AM EDT No completed [facility] Cigarettes smoked current (pack per day) - Reported 09/16/20 12:00:00 AM EDT UNK completed [facility] Smoking 09/16/2020 12:00:00 AM EDT Current every day smoker co mpleted Current every day smoker [facility] Alcohol intake 09/07/2020 12:00:00 AM EDT No completed [facility] Cigarettes smoked current (pack per day) - Reported 09/07/20 12:00:00 AM EDT UNK completed [facility] Smoking 09/07/2020 12:00:00 AM EDT Current every day smoker co mpleted Current every day smoker [facility] Vital Signs ID Date Data Source UNK Name Value Range Interpretation Code Description Data Source(s) Body temperature 37.6 sandy Normal (applies to non-numeric results) 37.6 sandy [facility] Respiratory rate 20 min Normal (applies to non-numeric results) 20 min [facility] Heart rate 81 min Normal (applies to non-numeric resul ts) 81 min [facility] Diastolic blood pressure 73 mm[Hg] Normal (applies to non-numeric results) 73 mm[Hg] [facility] Systolic blood pressure 106 mm[Hg] Normal (applies t o non-numeric results) 106 mm[Hg] [facility] Deprecated Oxygen saturation in Capillary blood by Oximetry 98 % Normal (applies to non-numeric results) 98 % [facility] Body weight Measured 62.4 kg Normal (applies to non-num anabel results) 62.4 kg [facility] Body height 162.1536 cm Normal (applies to non-numeric res ults) 162.1536 cm [facility] Body mass index (BMI) [Ratio] 23.61 kg/m2 No rmal (applies to non-numeric results) 23.61 kg/m2 [facility] Body mass index (BMI) [Ratio] 24.4 kg/m2 24.4 k g/m2 [facility] [place] body weight 120 [lb_av] 120 [lb_av] [facility] [...] k g/m2 [facility] ([facility] [place] body weight 120 [lb_av] 120 [lb_av] [facility] [...] k g/m2 [facility] ([facility] [place] body weight 120 [lb_av] 120 [lb_av] [facility] [...] by Pulse oximetry 98 % 98 % [facility] Body temperature 36.89 Sandy 36.89 Sandy [facility] Heart rate 93 /min 93 /min [facility] Diastolic blood pressure 73 mm[Hg] 73 mm[Hg] [facility] Systolic blood pressure 136 mm[Hg] 136 mm[Hg] [facility] Respiratory rate 14 /min 14 /min [facility] Body mass index (BMI) [Ratio] 26.43 kg/m2 26.43 kg/m2 [facility] Body weight 69.854 kg 69.854 kg [facility] Body height 162.6 cm 162.6 cm [facility] Oxygen saturation in Arterial blood by Pulse oximetry 98 % 98 % [facility] Body mass index (BMI) [Ratio] 26.43 kg/m2 26.43 kg/m2 [facility] Body weight 69.854 kg 69.854 kg [facility] Body height 162.6 cm 162.6 cm [facility] Heart rate 97 /min 97 /min [facility] Diastolic blood pressure 70 mm[Hg] 70 mm[Hg] [facility] Systolic blood pressure 140 mm[Hg] 140 mm[Hg] [facility] Body mass index (BMI) [Ratio] 26.0 kg/m2 26.0 k g/m2 [facility] ([facility] [place] body weight 120 [lb_av] 120 [lb_av] [facility] [...] Body temperature 96.9 [degF] 96.9 [degF] [facility] ([facility] Heart rate 85 /min 85 /min [facility] ([facility] Diastolic blood pressure 63 mm[Hg] 63 mm[Hg] [facility] ([facility] Systolic blood pressure 128 mm[Hg] 128 mm[Hg] [facility] ([facility] Diastolic blood pressure 75 mm[Hg] 75 mm[Hg] [facility] ([facility] Systolic blood pressure 143 mm[Hg] 143 mm[Hg] [facility] Oxygen saturation in Arterial blood by Pulse oximetry 99 % 99 % [facility] ([facility] ) Body mass index (BMI) [Ratio] 26.6 kg/m2 26.6 k g/m2 [facility] ([facility] Body weight 150.00 [lb_av] 150.00 [lb_av] [facility] T ([facility] ) Body height 63 [in_i] 63 [in_i] [facility] ([facility] 5'3" Heart rate 82 /min 82 /min [facility] ([facility] ) Diastolic blood pressure 70 mm[Hg] 70 mm[Hg] [facility] ([facility] Systolic blood pressure 142 mm[Hg] 142 mm[Hg] M [facility] ([facility] ) Oxygen saturation in Arterial blood by Pulse oximetry 98 % 98 % [facility] ([facility] Body mass index (BMI) [Ratio] 26.9 kg/m2 26.9 k g/m2 [facility] ([facility] Body weight 152.12 [lb_av] 152.12 [lb_av] [facility] T ([facility] ) Body height 63 [in_i] 63 [in_i] [facility] ([facility] 5'3" Heart rate 100 /min 100 /min [facility] ([facility] ) Diastolic blood pressure 88 mm[Hg] 88 mm[Hg] [facility] ([facility] ) Systolic blood pressure 146 mm[Hg] 146 mm[Hg] M [facility] ([facility] ) Body mass index (BMI) [Ratio] 25.4 kg/m2 25.4 k g/m2 [facility] ([facility] ) Body weight 149.25 [lb_av] 149.25 [lb_av] [facility] T ([facility] ) Body height 64.25 [in_i] 64.25 [in_i] [facility] ([facility] 5'4.25" Body mass index (BMI) [Ratio] 26.0 kg/m2 26.0 k g/m2 [facility] ([facility] ) Body weight 154.56 [lb_av] 154.56 [lb_av] [facility] T ([facility] ) Oxygen saturation in Arterial blood by Pulse oximetry 98 % 98 % [facility] ([facility] ) Body mass index (BMI) [Ratio] 26.5 kg/m2 26.5 k g/m2 [facility] ([facility] ) Body weight 149.50 [lb_av] 149.50 [lb_av] [facility] T ([facility] ) Body height 63 [in_i] 63 [in_i] [facility] ([facility] 5'3" Heart rate 96 /min 96 /min [facility] ([facility] ) Diastolic blood pressure 90 mm[Hg] 90 mm[Hg] [facility] ([facility] ) Systolic blood pressure 146 mm[Hg] 146 mm[Hg] M [facility] ([facility] ) Systolic blood pressure 146 mm[Hg] 146 mm[Hg] A THENA ([facility]) Body height 64 [in_i] 64 [in_i] ALIYAH ([facility]) Diastolic blood pressure 78 mm[Hg] 78 mm[Hg] ALIYAH ([facility]) Body mass index (BMI) [Ratio] 23.9 kg/m2 23.9 k g/m2 [facility] ([facility] [place] body weight 120 [lb_av] 120 [lb_av] MED[facility] [...] Body height 63 [in_i] 63 [in_i] [facility] ([facility]) 5'3" Heart rate 92 /min 92 /min [facility] ([facility]) Diastolic blood pressure 88 mm[Hg] 88 mm[Hg] [facility] ([facility]) Systolic blood pressure 146 mm[Hg] 146 mm[Hg] M [facility] ([facility]) Oxygen saturation in Arterial blood by Pulse oximetry 98 % 98 % [facility] ([facility]) Body mass index (BMI) [Ratio] 24.6 kg/m2 24.6 k g/m2 [facility] ([facility]) Body weight 139.00 [lb_av] 139.00 [lb_av] [facility] T ([facility]) Systolic blood pressure 147 mm[Hg] 147 mm[Hg] A THENA ([facility]) Body height 64 [in_i] 64 [in_i] ALIYAH ([facility]) Diastolic blood pressure 73 mm[Hg] 73 mm[Hg] ALIYAH ([facility]) Systolic blood pressure 147 mm[Hg] 147 mm[Hg] A THENA ([facility]) Body height 64 [in_i] 64 [in_i] ALIYAH ([facility]) Diastolic blood pressure 73 mm[Hg] 73 mm[Hg] ALIYAH ([facility]) Patient Treatment Plan of Care Planned Activity Planned Date Details Description Data Source (s) Acetaminophen 325 MG / Hydrocodone Bitartrate 5 MG Ora l Tablet 09/17/2020 12:00:00 AM EDT [facility] Acetaminophen 500 MG Oral Tablet [facility] meloxicam 15 MG Oral Tablet [facility] meloxicam 15 MG Oral Tablet ALIYAH ([facility])
[2020-12-05 00:40] VITALS: BP 150/81
[2020-12-05] MEDS ORDERED: MIRT-60 PO (00:57)
[2020-12-05] MEDS ORDERED: MORPHINE 4 MG/ML 1ML VIAL/SYRINGE (J2270) IV PRN (01:07)
[2020-12-05] MEDS ORDERED: MORPHINE 2 MG/ML 1ML VIAL (J2270) IV ONE (02:30)
[2020-12-05] MEDS: MORPHINE 2 MG/ML 1ML VIAL (J2270) IV PRN ×3 (02:32→14:44)
[2020-12-05 05:24] VITALS: BP 180/93
[2020-12-05 06:50] LABS: HEMATOCRIT 26.8 % (36.0-47.0); HEMOGLOBIN 7.9 g/dl (12.0-15.5); MEAN CORPUSCULAR HEMOGLOBIN 28.2 pg (27.0-33.0); MEAN CORPUSCULAR HGB CONC 29.5 g/dl (32.0-36.5); MEAN CORPUSCULAR VOLUME 95.7 fl (80.0-96.0); PLATELET COUNT, AUTOMATED 361 10^3/uL (150-450); WHITE BLOOD COUNT 9.1 10^3/uL (4.0-10.0)
[2020-12-05 07:21] LABS: BLOOD UREA NITROGEN 3 MG/DL (7-18); CALCIUM LEVEL 8.7 MG/DL (8.5-10.1); CARBON DIOXIDE LEVEL 31 MEQ/L (21-32); CHLORIDE LEVEL 99 MEQ/L (98-107); CREATININE FOR GFR 0.49 MG/DL (0.55-1.30); GLOMERULAR FILTRATION RATE > 60.0 (>58); GLUCOSE, FASTING 170 MG/DL (70-100); MAGNESIUM LEVEL 2.1 MG/DL (1.8-2.4); POTASSIUM SERUM 3.8 MEQ/L (3.5-5.1); SODIUM LEVEL 135 MEQ/L (136-145)
[2020-12-05] MEDS ORDERED: HumaLOG INSULIN (NovoLOG) PER UNIT SC SCH (07:30)
[2020-12-05] MEDS ORDERED: NORCO, ANEXSIA 5/325MG TABLET (HYDROcodone/ACETAMINOPHEN) PO PRN (08:30)
[2020-12-05] MEDS: HumaLOG INSULIN (NovoLOG) PER UNIT SC SCH ×3 (08:31→17:30)
[2020-12-05] MEDS: GABAPENTIN 300 MG CAP PO SCH ×4 (08:32→21:49)
[2020-12-05] MEDS: FLUoxetine 20 MG CAP PO SCH (09:00)
[2020-12-05] MEDS ORDERED: cefTRIAXone SOD 1GM VIAL (J0696 PER 250MG) IV SCH ×2 (09:00→15:00)
[2020-12-05] MEDS: DOCUSATE SODIUM 100MG CAPSULE PO SCH ×2 (09:00→21:00)
[2020-12-05] MEDS: METAMUCIL (PSYLLIUM) PACKET PO SCH (09:00)
[2020-12-05] MEDS: PANTOPRAZOLE 40MG TAB (PROTONIX) PO SCH (09:00)
[2020-12-05] MEDS: NORCO, ANEXSIA 5/325MG TABLET (HYDROcodone/ACETAMINOPHEN) PO PRN ×2 (09:39→13:38)
[2020-12-05] MEDS: ENOXAPARIN 40MG/0.4ML SYRINGE (J1650 PER 10MG) SC SCH (12:45)
[2020-12-05 14:00] VITALS: BP 185/84
[2020-12-05] MEDS ORDERED: SODIUM CHLORIDE 0.9% INJ 10 ML SYR IV PRN (16:30)
[2020-12-05] MEDS: cefTRIAXone SOD 2 GM in D5W MINI-BAG PLUS 50 ML IV SCH (17:49)
[2020-12-05] MEDS: SODIUM CHLORIDE 0.9% INJ 10 ML SYR IV SCH (18:00)
[2020-12-05] MEDS ORDERED: MORPHINE 4 MG/ML 1ML VIAL/SYRINGE (J2270) IV ONE (18:00)
[2020-12-05] MEDS: ONDANSETRON 4MG/2ML VIAL IV SCH ×2 (18:02→23:27)
[2020-12-05] MEDS: NS 1,000 ML IV SCH (18:02)
[2020-12-05] MEDS ORDERED: METOCLOPRAMIDE 10 MG TAB PO PRN (18:30)
[2020-12-05] MEDS ORDERED: methocarbamoL 500 MG TAB PO PRN (18:30)
[2020-12-05] MEDS ORDERED: ACETAMINOPHEN 500 MG TAB PO PRN (18:30)
[2020-12-05] MEDS ORDERED: **hydrALAZINE** 10 MG TAB PO PRN (18:45)
--- NOTE | 2020-12-05 18:45 | IPNPDOC ---
Date Seen The patient was seen on 12/05/20. Progress Note SUBJECTIVE: Nausea today. After review of discharge medications, she is not on many high dose narcotics she was on at discharge- could be sending her towards withdraw from narcotics. WBC improved. PT/OT. Denies chest pain, shortness of breath. OBJECTIVE: PHYSICAL EXAMINATION: General: Patient is awake, alert, oriented times three, laying in bed Eyes: Conjunctiva clear, pupils equal round and reactive to light and accommodation. EOM full, Fundus: not visualized. ENT: Hearing Bilateral normal. No nasal deviation, oropharynx clear with no lesions/erythema. Cardiovascular: S1, S2, normal rhythm, no murmur. Respiratory: Chest is clear to auscultation bilaterally, no rhonchi, wheezes or rubs. Abdomen: Soft, bowel sounds positive, no bruits. Nontender on palpation. Extremities: No clubbing or cyanosis. No edema, no tenderness. 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 Cranial nerves III-XII grossly intact. Motor: Strength normal in upper extremities, in the lower extremities patient is not able to dorsiflex her bilateral foot, plantar flexion preserved. Sensory: grossly normal to touch and decreased pin prick on bilateral dorsal and medial surface of foot. Cerebellar: Did not assess. Skin: No rashes, lesions, ulcerations, subcutaneous nodules or induration. Imaging: None Assessment: 45-year-old female patient with DM type I, autoimmune thyroiditis, anxiety who was discharged from [facility] yesterday who requires admission to our facility for further evaluation and management of intractable back pain and bilateral foot drop. She reports she was admitted to [facility] on November 06 to get the surgery done for her lumbar disc bulges following the surgery she had bilateral foot drop as a complication. He was supposed to go to acute rehabilitation but was tested positive for Covid [reportedly without any sym ptoms] and did not get acute rehabilitation. Plan: Bilateral foot drop s/p lumbar spinal surgery complication -Hx of spondylolisthesis implant failure L5-S1 s/p L3-S1 posterior lumbar interbody fusion with instrumentation 11/06/20 Dr. Gordon -Patient is unable to have any dorsiflexion of bilateral foot. -Activity recommendation from [facility]: Full WBAT -PT : attempted to work with patient today but refused 2/2 to pain. -Patient will be assessed for rehab E. coli lumbar wound infection -Underwent I&D of lumbar spine, wound revision, application of negative pressure wound vac system 11/24/20 -Blood cultures neg, Wound culture: E. coli -Was seen by ID at [facility], recommended ceftriaxone 2 g IV Q24 H based on sensitivities, total duration 6 weeks from start date 11/24/2020. with transition to chronic oral suppression thereafter -Complicated by spiking fevers during her admission -Has ID clinic f/u, will need to confirm date of follow up after holiday weekend -Monitor with CBC regularly Acute on chronic back pain 2/2 to above, chronic back issues -Not on discharge medications from [facility], INCLUDING tylenol, gabapentin, morphine BID, morphine PRN, muscle relaxants -Resuming all home medications -BR started -Monitor closely Nausea, chronic? -On several nausea medications on discharge instructions -? gastroparesis -Also cannot r/o possible beginning of narcotic withdrawl with not getting home meds -Monitor closely -Zofran, metoclopramide, IVFs at 85 cc/hr HTN, uncontrolled -BP 180-190 mmHg, likely worsened by uncontrolled pain- not getting home narcotic dosing -HYDRALAZINE PRN DM type I: -Resumed home insulin glargine at 18 UQAM, not PM -ISS, FS AC/HS, consistent carb diet GERD -PPI DVT prophylaxis: -Lovenox DISPOSITION: Pain will need to be better controlled before PT able to fully assessed. Just restarted all home meds, f/u progress. VS, I&O, 24H, [facility] Vital Signs/I&O Vital Signs Date Time Temp Pulse Resp B/P (MAP) Pulse Ox O2 Delivery O2 Flow Rate FiO2 12/05/20 14:55 16 12/05/20 14:00 98.3 77 185/84 (117) 99 Room Air I&O- Last 24 Hours up to 6 AM 12/05/20 06:00 Intake Total 300 ml Balance 300 ml Laboratory Data 24H LABS Laboratory Tests 2 12/04/20 18:55: Nucleated Red Blood Cells % (auto) 0.2H, Prothrombin Time 14.2H, Prothromb Time International Ratio 1.08, Anion Gap 5L, Glomerular Filtration Rate > 60.0, Calcium Level 8.3L 12/05/20 00:42: Bedside Glucose (Misc Panel) 102 12/05/20 06:00: Nucleated Red Blood Cells % (auto) 0.0, Anion Gap 5L, Glomerular Filtration Rate > 60.0, Calcium Level 8.7, Magnesium Level 2.1 12/05/20 11:43: Bedside Glucose (Misc Panel) 121H CBC/BMP Laboratory Tests 12/04/20 18:55 12/05/20 06:00 Current Medications Current Medications Medications (Trade) Dose Ordered Sig/Esmer Route PRN Reason Start Time Stop Time Status Last Admin Dose Admin Acetaminophen (Tylenol Tab) 650 mg Q4H PRN PO PAIN OR FEVER 12/04/20 22:30 12/05/20 08:32 Acetaminophen/ Hydrocodone Bitart ([place], Anexsia 5/325) 1 tab Q4HP PRN PO MILD/MODERATE PAIN (PS 1-7) 12/05/20 08:30 Acetaminophen/ Hydrocodone Bitart (Osseo, Anexsia 5/325) 2 tab Q4HP PRN PO SEVERE PAIN (PS 8-10) 12/05/20 08:30 12/05/20 13:38 Al Hydrox/Mg Hydrox/Simethicone (Mylanta) 30 ml DAILY PRN PO DYSPEPSIA 12/04/20 22:30 Bisacodyl (Dulcolax Suppository) 10 mg DAILY PRN [place] CONSTIPATION 12/04/20 22:30 Calcium Carbonate (Tums) 500 mg Q4HP PRN PO INDIGESTION 12/04/20 22:30 Ceftriaxone Sodium 2 gm/ Dextrose 50 ml @ 50 mls/hr Q24H IV 12/05/20 17:00 12/05/20 17:49 Ceftriaxone Sodium (Rocephin) 2 gm DAILY IV 12/05/20 09:00 12/05/20 01:28 DC Ceftriaxone Sodium (Rocephin) 2 gm DAILY IV 12/05/20 15:00 Cancel Dextrose (Dextrose 50%) 25 ml ASDIRECTED PRN IV SEE LABEL COMMENTS 12/04/20 22:30 Docusate Sodium (Colace) 100 mg BID PO 12/05/20 09:00 Enoxaparin Sodium (Lovenox) 40 mg DAILY SC 12/05/20 09:00 12/05/20 12:45 Gabapentin (Neurontin) 300 mg TID PO 12/04/20 22:48 12/04/20 22:49 DC Gabapentin (Neurontin) 600 mg TID PO 12/04/20 21:00 12/04/20 22:49 DC Gabapentin (Neurontin) 900 mg TID PO 12/04/20 22:47 12/04/20 22:48 DC Gabapentin (Neurontin) 900 mg TID PO 12/04/20 22:49 12/05/20 08:32 Gabapentin (Neurontin) 90,000 mg TID PO 12/04/20 21:00 12/04/20 22:47 DC Glucagon (Glucagon) 1 mg ASDIRECTED PRN SC SEE LABEL COMMENTS 12/04/20 22:30 Glucose (Glucose) 16 GM ASDIRECTED PRN PO SEE LABEL COMMENTS 12/04/20 22:30 Heparin Sodium (Heparin (Flush)) 200 units PICC IV 12/05/20 18:00 Home Med (Med Rec Complete!) ASDIRECTED XX 12/04/20 21:45 12/04/20 21:34 DC Insulin Detemir (Levemir Insulin) 18 units QHS SC 12/05/20 21:00 Insulin Human Lispro (HumaLOG INSULIN) See Protocol Table AC SC 12/05/20 07:30 12/05/20 08:11 DC Insulin Human Lispro (HumaLOG INSULIN) See Protocol Table AC SC 12/05/20 07:30 12/05/20 12:45 Labetalol HCl (Normodyne, Trandate) 20 mg STAT STAT IV 12/04/20 22:46 12/04/20 22:47 Cancel Magnesium Hydroxide (Milk Of Magnesia) 30 ml DAILY PRN PO CONSTIPATION 12/04/20 22:30 Mirtazapine (Remeron) 30 mg QHS PRN PO insomnia 12/04/20 21:00 12/05/20 02:09 Morphine Sulfate (Morphine Sulfate Inj) 2 mg Q4H IV 12/04/20 22:30 12/05/20 01:07 DC Morphine Sulfate (Morphine Sulfate Inj) 2 mg Q4H PRN IV SEVERE PAIN (PS 8-10) 12/05/20 01:07 12/05/20 14:44 Morphine Sulfate (Morphine Sulfate Inj) 4 mg Q6H IV 12/04/20 22:00 12/05/20 01:07 DC 12/04/20 23:18 Morphine Sulfate (Morphine Sulfate Inj) 4 mg Q6H PRN IV MODERATE TO SEVERE PAIN 12/05/20 01:07 12/05/20 08:29 DC 12/05/20 05:34 Ondansetron HCl (ZOFRAN INJection) 4 mg Q6H IV 12/05/20 18:00 Ondansetron HCl (Zofran) 4 mg DAILY PRN PO nausea/vomiting 12/04/20 22:30 12/05/20 17:41 DC 12/05/20 14:13 Psyllium Hydrophilic Mucilloid (Metamucil) 1 pkt DAILY PO 12/05/20 09:00 Sodium Chloride 1,000 ml @ 85 mls/hr [id number] IV 12/05/20 18:00 Sodium Chloride (Saline Lock Flush) 10 ml ASDIRECTED PRN IV SEE LABEL COMMENTS 12/05/20 16:30 Sodium Chloride (Saline Lock Flush) 10 ml PICC IV 12/05/20 18:00 Allergies Coded Allergies: No Known Allergies (Verified , 12/05/20) Ana Gastelum MD Dec 05, 2020 18:45
[2020-12-05 18:48] VITALS: BP 140/70
[2020-12-05] MEDS ORDERED: PANT40TA29 PO (18:51)
[2020-12-05] MEDS ORDERED: MORP10SO2 PO (18:51)
[2020-12-05] MEDS ORDERED: FLUO40CA PO (18:51)
[2020-12-05] MEDS ORDERED: METH-1164 PO (18:51)
[2020-12-05] MEDS ORDERED: METO10TA2 PO (18:51)
[2020-12-05] MEDS ORDERED: TIZA4TAB4 PO (18:51)
[2020-12-05] MEDS ORDERED: METOCLOPRAMIDE INJ 10MG/2ML VIAL (J2765 PER 1) IV ONE (20:00)
[2020-12-05] MEDS: tiZANidine 4 MG TAB PO SCH ×2 (21:00→21:49)
[2020-12-05] MEDS ORDERED: LEVEMIR (INSULIN DETEMIR) 1 UNITS/0.01ML SC SCH ×2 (21:00→22:15)
[2020-12-05] MEDS: MIRTAZAPINE 15 MG TAB PO SCH (21:49)
[2020-12-05] MEDS: MORPHINE 30 MG SA TAB PO SCH (21:50)
[2020-12-05 22:00] VITALS: BP 132/58
[2020-12-06] MEDS: NS 1,000 ML IV SCH ×2 (05:41→17:36)
[2020-12-06] MEDS: ONDANSETRON 4MG/2ML VIAL IV SCH ×3 (05:42→17:35)
[2020-12-06] MEDS: SODIUM CHLORIDE 0.9% INJ 10 ML SYR IV SCH ×2 (05:42→18:00)
[2020-12-06 06:01] VITALS: BP 155/76
[2020-12-06 06:54] LABS: HEMATOCRIT 27.3 % (36.0-47.0); HEMOGLOBIN 8.1 g/dl (12.0-15.5); MEAN CORPUSCULAR HEMOGLOBIN 27.8 pg (27.0-33.0); MEAN CORPUSCULAR HGB CONC 29.7 g/dl (32.0-36.5); MEAN CORPUSCULAR VOLUME 93.8 fl (80.0-96.0); PLATELET COUNT, AUTOMATED 372 10^3/uL (150-450); RED BLOOD COUNT 2.91 10^6/uL (4.00-5.40); WHITE BLOOD COUNT 11.7 10^3/uL (4.0-10.0)
[2020-12-06 07:15] LABS: ALBUMIN 2.1 GM/DL (3.2-5.2); ALT/SGPT 11 U/L (12-78); BILIRUBIN,TOTAL 0.3 MG/DL (0.2-1.0); BLOOD UREA NITROGEN 6 MG/DL (7-18); CALCIUM LEVEL 8.4 MG/DL (8.5-10.1); CARBON DIOXIDE LEVEL 27 MEQ/L (21-32); CHLORIDE LEVEL 98 MEQ/L (98-107); CREATININE FOR GFR 0.57 MG/DL (0.55-1.30); GLOMERULAR FILTRATION RATE > 60.0 (>58); GLUCOSE, FASTING 228 MG/DL (70-100); SODIUM LEVEL 132 MEQ/L (136-145); TOTAL PROTEIN 7.3 GM/DL (6.4-8.2)
[2020-12-06] MEDS: HumaLOG INSULIN (NovoLOG) PER UNIT SC SCH ×3 (08:20→17:30)
[2020-12-06] MEDS: MORPHINE 30 MG SA TAB PO SCH ×2 (08:21→22:01)
[2020-12-06] MEDS: tiZANidine 4 MG TAB PO SCH ×4 (08:22→22:00)
[2020-12-06] MEDS: PANTOPRAZOLE 40MG TAB (PROTONIX) PO SCH (08:22)
[2020-12-06] MEDS: ENOXAPARIN 40MG/0.4ML SYRINGE (J1650 PER 10MG) SC SCH (08:23)
[2020-12-06] MEDS ORDERED: LEVEMIR (INSULIN DETEMIR) 1 UNITS/0.01ML SC SCH (09:00)
[2020-12-06] MEDS: DOCUSATE SODIUM 100MG CAPSULE PO SCH ×2 (09:00→21:59)
[2020-12-06] MEDS: METAMUCIL (PSYLLIUM) PACKET PO SCH (09:00)
[2020-12-06] MEDS: FLUoxetine 20 MG CAP PO SCH (12:10)
[2020-12-06] MEDS: GABAPENTIN 300 MG CAP PO SCH ×3 (12:11→22:00)
[2020-12-06 14:00] VITALS: BP 135/64
[2020-12-06] MEDS: cefTRIAXone SOD 2 GM in D5W MINI-BAG PLUS 50 ML IV SCH (17:48)
--- NOTE | 2020-12-06 18:29 | IPNPDOC ---
Date Seen The patient was seen on 12/06/20. Progress Note SUBJECTIVE: Received 18 U QAM and was hypoglycemic today with BS in 40's. She improved with treatment. Hx of hypoglycemia and AM levemir decreased. Performed better with PT/OT today. Denies chest pain, shortness of breath. OBJECTIVE: PHYSICAL EXAMINATION: General: Patient is awake, alert, oriented times three, laying in bed Eyes: Conjunctiva clear, pupils equal round and reactive to light and accommodation. EOM full, Fundus: not visualized. ENT: Hearing Bilateral normal. No nasal deviation, oropharynx clear with no lesions/erythema. Cardiovascular: S1, S2, normal rhythm, no murmur. Respiratory: Chest is clear to auscultation bilaterally, no rhonchi, wheezes or rubs. Abdomen: Soft, bowel sounds positive, no bruits. Nontender on palpation. Extremities: No clubbing or cyanosis. No edema, no tenderness. 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 Cranial nerves III-XII grossly intact. Motor: Strength normal in upper extremities, in the l ower extremities patient is not able to dorsiflex her bilateral foot, plantar flexion preserved. Sensory: grossly normal to touch and decreased pin prick on bilateral dorsal and medial surface of foot. Cerebellar: Did not assess. Skin: No rashes, lesions, ulcerations, subcutaneous nodules or induration. Imaging: None Assessment: 45-year-old female patient with DM type I, autoimmune thyroiditis, anxiety who was discharged from [facility] yesterday who requires admission to our facility for further evaluation and management of intractable back pain and bilateral foot drop. She reports she was admitted to [facility] on November 06 to get the surgery done for her lumbar disc bulges following the surgery she had bilateral foot drop as a complication. He was supposed to go to acute rehabilitation but was tested positive for Covid [reportedly without any symptoms] and did not get acute rehabilitation. Plan: Hypoglycemia, Hx of brittle DM type I during hospitalizations (I have taken care of her multiple times here) -Decreased AM levemir -C/w ISS, FS AC/HS, consistent carb diet -Hypoglycemic protocol Nausea, vomiting likely 2/2 to gastroparesis and not being on home opioid dose (possible early withdrawl which has since resolved) -Much improved today now that she is on home medications. -Zofran, metoclopramide, IVFs 100 cc/hr Hyponatremia likely 2/2 to dehydration 2/2 to nausea with vomiting -C/w increased IVFs at 100 cc/hr -F/u AM labs closely Bilateral foot drop s/p lumbar spinal surgery complication -Hx of spondylolisthesis implant failure L5-S1 s/p L3-S1 posterior lumbar interbody fusion with instrumentation 11/06/20 Dr. Gordon -Patient is unable to have any dorsiflexion of bilateral foot. -Activity recommendation from [facility]: Full WBAT -F/u PT/OT eval now that patient's pain is better controlled on home medications. E. coli lumbar wound infection -Underwent I&D of lumbar spine, wound revision, application of negative pressure wound vac system 11/24/20 -Blood cultures neg, Wound culture: E. coli -Was seen by ID at [facility], recommended ceftriaxone 2 g IV Q24 H based on sensitivities, total duration 6 weeks from start date 11/24/2020. with transition to chronic oral suppression thereafter -Has ID clinic f/u, will need to confirm date of follow up after holiday weekend -Monitor with CBC regularly Acute on chronic back pain 2/2 to above, chronic back issues -Resumed all home meds including tylenol, gabapentin, morphine BID, morphine PRN, muscle relaxants and patient's pain better controlled. -BR started -Monitor closely HTN -Better controlled with pain being controlled. -Hydralazine PRN GERD -PPI DVT prophylaxis: -Lovenox DISPOSITION: PT/OT. Plan is discharge home vs. rehab? VS, I&O, 24H, [place] Vital Signs/I&O Vital Signs Date Time Temp Pulse Resp B/P (MAP) Pulse Ox O2 Delivery O2 Flow Rate FiO2 12/06/20 14:00 98.0 82 18 135/64 (87) 96 Room Air I&O- Last 24 Hours up to 6 AM 12/06/20 06:00 Intake Total 1170 ml Output Total 100 ml Balance 1070 ml Laboratory Data 24H LABS Laboratory Tests 2 12/05/20 20:21: Bedside Glucose (Misc Panel) 247H 12/05/20 23:29: Bedside Glucose (Misc Panel) 276H 12/06/20 06:24: Nucleated Red Blood Cells % (auto) 0.0, Anion Gap 7L, Glomerular Filtration Rate > 60.0, Calcium Level 8.4L, Total Bilirubin 0.3, Aspartate Amino Transf (AST/SGOT) 19, Alanine Aminotransferase (ALT/SGPT) 11L, Alkaline Phosphatase 104, Total Protein 7.3, Albumin 2.1L, Albumin/Globulin Ratio 0.4L 12/06/20 11:50: Bedside Glucose (Misc Panel) 48L 12/06/20 12:42: Bedside Glucose (Misc Panel) 41L 12/06/20 13:24: Bedside Glucose (Misc Panel) 45L 12/06/20 14:27: Bedside Glucose (Misc Panel) 159H 12/06/20 17:04: Bedside Glucose (Misc Panel) 101 CBC/BMP Laboratory Tests 12/06/20 06:24 Microbiology Microbiology 12/05/20 Blood Culture, Received Pending 12/05/20 Blood Culture, Received Pending Current Medications Current Medications Medications (Trade) Dose Ordered Sig/Esmer Route PRN Reason Start Time Stop Time Status Last Admin Dose Admin Acetaminophen (Tylenol Tab) 650 mg Q4H PRN PO PAIN OR FEVER 12/04/20 22:30 12/05/20 18:34 DC 12/05/20 08:32 Acetaminophen (Tylenol Tab) 1,000 mg Q8HP PRN PO PAIN / FEVER 12/05/20 18:30 Acetaminophen/ Hydrocodone Bitart ([place], Anexsia 5/325) 1 tab Q4HP PRN PO MILD/MODERATE PAIN (PS 1-7) 12/05/20 08:30 12/05/20 18:34 DC Acetaminophen/ Hydrocodone Bitart ([place], Anexsia 5/325) 2 tab Q4HP PRN PO SEVERE PAIN (PS 8-10) 12/05/20 08:30 12/05/20 18:34 DC 12/05/20 13:38 Al Hydrox/Mg Hydrox/Simethicone (Mylanta) 30 ml DAILY PRN PO DYSPEPSIA 12/04/20 22:30 Bisacodyl (Dulcolax Suppository) 10 mg DAILY PRN [place] CONSTIPATION 12/04/20 22:30 Calcium Carbonate (Tums) 500 mg Q4HP PRN PO INDIGESTION 12/04/20 22:30 Ceftriaxone Sodium 2 gm/ Dextrose 50 ml @ 50 mls/hr Q24H IV 12/05/20 17:00 01/04/21 21:00 12/06/20 17:48 Ceftriaxone Sodium (Rocephin) 2 gm DAILY IV 12/05/20 09:00 12/05/20 01:28 DC Ceftriaxone Sodium (Rocephin) 2 gm DAILY IV 12/05/20 15:00 Cancel Dextrose (Dextrose 50%) 25 ml ASDIRECTED PRN IV SEE LABEL COMMENTS 12/04/20 22:30 12/06/20 13:35 Docusate Sodium (Colace) 100 mg BID PO 12/05/20 09:00 Enoxaparin Sodium (Lovenox) 40 mg DAILY SC 12/05/20 09:00 12/06/20 08:23 Fluoxetine HCl (PROzac) 40 mg DAILY PO 12/05/20 09:00 12/06/20 12:10 Gabapentin (Neurontin) 300 mg TID PO 12/04/20 22:48 12/04/20 22:49 DC Gabapentin (Neurontin) 600 mg TID PO 12/04/20 21:00 12/04/20 22:49 DC Gabapentin (Neurontin) 600 mg TID PO 12/05/20 21:00 12/06/20 17:35 Gabapentin (Neurontin) 900 mg TID PO 12/04/20 22:47 12/04/20 22:48 DC Gabapentin (Neurontin) 900 mg TID PO 12/04/20 22:49 12/05/20 18:34 DC 12/05/20 08:32 Gabapentin (Neurontin) 90,000 mg TID PO 12/04/20 21:00 12/04/20 22:47 DC Glucagon (Glucagon) 1 mg ASDIRECTED PRN SC SEE LABEL COMMENTS 12/04/20 22:30 Glucose (Glucose) 16 GM ASDIRECTED PRN PO SEE LABEL COMMENTS 12/04/20 22:30 12/06/20 12:45 Heparin Sodium (Heparin (Flush)) 200 units PICC IV 12/05/20 18:00 Home Med (Med Rec Complete!) ASDIRECTED XX 12/04/20 21:45 12/04/20 21:34 DC Hydralazine HCl (Apresoline) 10 mg Q8HP PRN PO SEE PROTOCOL 12/05/20 18:45 Insulin Detemir (Levemir Insulin) 18 units QAM SC 12/06/20 09:00 12/06/20 09:22 Insulin Detemir (Levemir Insulin) 18 units QHS SC 12/05/20 21:00 12/05/20 18:34 DC Insulin Detemir (Levemir Insulin) 18 units QHS SC 12/05/20 22:15 12/05/20 22:35 Insulin Human Lispro (HumaLOG INSULIN) See Protocol Table AC SC 12/05/20 07:30 12/05/20 08:11 DC Insulin Human Lispro (HumaLOG INSULIN) See Protocol Table AC SC 12/05/20 07:30 12/06/20 08:20 Labetalol HCl (Normodyne, Trandate) 20 mg STAT STAT IV 12/04/20 22:46 12/04/20 22:47 Cancel Magnesium Hydroxide (Milk Of Magnesia) 30 ml DAILY PRN PO CONSTIPATION 12/04/20 22:30 Methocarbamol (Robaxin) 500 mg BIDP PRN PO MUSCLE SPASMS 12/05/20 18:30 Metoclopramide HCl (Reglan) 10 mg Q8HP PRN PO NAUSEA OR VOMITING 12/05/20 18:30 Mirtazapine (Remeron) 30 mg QHS PO 12/05/20 21:00 12/05/20 21:49 Mirtazapine (Remeron) 30 mg QHS PRN PO insomnia 12/04/20 21:00 12/05/20 18:34 DC 12/05/20 02:09 Morphine Sulfate (Morphine Sulfate Inj) 2 mg Q4H IV 12/04/20 22:30 12/05/20 01:07 DC Morphine Sulfate (Morphine Sulfate Inj) 2 mg Q4H PRN IV SEVERE PAIN (PS 8-10) 12/05/20 01:07 12/05/20 18:34 DC 12/05/20 14:44 Morphine Sulfate (Morphine Sulfate Inj) 4 mg Q6H IV 12/04/20 22:00 12/05/20 01:07 DC 12/04/20 23:18 Morphine Sulfate (Morphine Sulfate Inj) 4 mg Q6H PRN IV MODERATE TO SEVERE PAIN 12/05/20 01:07 12/05/20 08:29 DC 12/05/20 05:34 Morphine Sulfate (Morphine Sulfate Oral Solution) 10 mg Q6HP PRN PO SEVERE PAIN (PS 8-10) 12/05/20 18:30 Morphine Sulfate (Ms Contin) 60 mg Q12H PO 12/05/20 21:00 12/06/20 08:21 Ondansetron HCl (ZOFRAN INJection) 4 mg Q6H IV 12/05/20 18:00 12/06/20 17:35 Ondansetron HCl (Zofran) 4 mg DAILY PRN PO nausea/vomiting 12/04/20 22:30 12/05/20 17:41 DC 12/05/20 14:13 Pantoprazole Sodium (Protonix) 40 mg DAILY PO 12/05/20 09:00 12/06/20 08:22 Psyllium Hydrophilic Mucilloid (Metamucil) 1 pkt DAILY PO 12/05/20 09:00 Sodium Chloride 1,000 ml @ 85 mls/hr [id number] IV 12/05/20 18:00 12/06/20 17:36 Sodium Chloride (Saline Lock Flush) 10 ml ASDIRECTED PRN IV SEE LABEL COMMENTS 12/05/20 16:30 Sodium Chloride (Saline Lock Flush) 10 ml PICC IV 12/05/20 18:00 Tizanidine HCl (Zanaflex) 4 mg QID PO 12/05/20 21:00 12/06/20 17:35 Allergies Coded Allergies: No Known Allergies (Verified , 12/05/20) Ana Gastelum MD Dec 06, 2020 18:29
[2020-12-06 22:00] VITALS: BP 133/63
[2020-12-06] MEDS: MIRTAZAPINE 15 MG TAB PO SCH (22:02)
[2020-12-07] MEDS: ONDANSETRON 4MG/2ML VIAL IV SCH ×4 (00:20→18:00)
[2020-12-07] MEDS: NS 1,000 ML IV SCH ×2 (03:02→12:37)
[2020-12-07] MEDS: SODIUM CHLORIDE 0.9% INJ 10 ML SYR IV SCH ×2 (05:34→18:22)
[2020-12-07] MEDS: MORPHINE SULFATE ORAL SOLN 10 MG/5 ML UD PO PRN ×2 (05:48→12:39)
[2020-12-07 06:00] VITALS: BP 182/91
[2020-12-07 06:38] LABS: HEMATOCRIT 27.6 % (36.0-47.0); HEMOGLOBIN 7.7 g/dl (12.0-15.5); MEAN CORPUSCULAR HEMOGLOBIN 27.3 pg (27.0-33.0); MEAN CORPUSCULAR HGB CONC 27.9 g/dl (32.0-36.5); MEAN CORPUSCULAR VOLUME 97.9 fl (80.0-96.0); PLATELET COUNT, AUTOMATED 383 10^3/uL (150-450); RED BLOOD COUNT 2.82 10^6/uL (4.00-5.40); WHITE BLOOD COUNT 6.5 10^3/uL (4.0-10.0)
[2020-12-07 07:06] LABS: ALBUMIN 2.1 GM/DL (3.2-5.2); ALT/SGPT 12 U/L (12-78); BILIRUBIN,TOTAL < 0.1 MG/DL (0.2-1.0); BLOOD UREA NITROGEN 5 MG/DL (7-18); CALCIUM LEVEL 8.4 MG/DL (8.5-10.1); CARBON DIOXIDE LEVEL 31 MEQ/L (21-32); CHLORIDE LEVEL 105 MEQ/L (98-107); CREATININE FOR GFR 0.58 MG/DL (0.55-1.30); GLOMERULAR FILTRATION RATE > 60.0 (>58); GLUCOSE, FASTING 162 MG/DL (70-100); POTASSIUM SERUM 4.1 MEQ/L (3.5-5.1); SODIUM LEVEL 141 MEQ/L (136-145); TOTAL PROTEIN 6.5 GM/DL (6.4-8.2)
[2020-12-07] MEDS: tiZANidine 4 MG TAB PO SCH ×4 (08:05→20:34)
[2020-12-07] MEDS: DOCUSATE SODIUM 100MG CAPSULE PO SCH ×2 (08:05→20:34)
[2020-12-07] MEDS: PANTOPRAZOLE 40MG TAB (PROTONIX) PO SCH (08:05)
[2020-12-07] MEDS: GABAPENTIN 300 MG CAP PO SCH ×3 (08:05→20:34)
[2020-12-07] MEDS: FLUoxetine 20 MG CAP PO SCH (08:05)
[2020-12-07] MEDS: MORPHINE 30 MG SA TAB PO SCH ×2 (08:05→20:33)
[2020-12-07] MEDS: ENOXAPARIN 40MG/0.4ML SYRINGE (J1650 PER 10MG) SC SCH (08:06)
[2020-12-07] MEDS: METAMUCIL (PSYLLIUM) PACKET PO SCH (08:06)
[2020-12-07] MEDS: HumaLOG INSULIN (NovoLOG) PER UNIT SC SCH ×3 (08:06→17:30)
[2020-12-07] MEDS ORDERED: LEVEMIR (INSULIN DETEMIR) 1 UNITS/0.01ML SC SCH ×2 (09:00)
[2020-12-07 14:00] VITALS: BP 107/50
[2020-12-07] MEDS: cefTRIAXone SOD 2 GM in D5W MINI-BAG PLUS 50 ML IV SCH (16:20)
--- NOTE | 2020-12-07 17:39 | IPNPDOC ---
Date Seen The patient was seen on 12/07/20. Progress Note SUBJECTIVE: Stopped AM levemir today due to lower than normal BS (70's). ARU to screen today. Denies chest pain, shortness of breath. OBJECTIVE: PHYSICAL EXAMINATION: General: Patient is awake, alert, oriented times three, laying in bed Eyes: Conjunctiva clear, pupils equal round and reactive to light and accommodation. EOM full, Fundus: not visualized. ENT: Hearing Bilateral normal. No nasal deviation, oropharynx clear with no lesions/erythema. Cardiovascular: S1, S2, normal rhythm, no murmur. Respiratory: Chest is clear to auscultation bilaterally, no rhonchi, wheezes or rubs. Abdomen: Soft, bowel sounds positive, no bruits. Nontender on palpation. Extremities: No clubbing or cyanosis. No edema, no tenderness. Spine: wound with wound VAC in place in the lumbar spinal region, no redness or tenderness in the surrounding area Central nervous system (PUMP TENDER): Awake, alert and fully oriented. Cranial nerves III-XII grossly intact. Motor: Strength normal in upper extremities, in the lower extremities patient is not able to dorsiflex her bilateral foot, plantar flexion preserved. Sensory: grossly normal to touch and decreased pin prick on bilateral dorsal and medial surface of foot. Cerebellar: Did not assess. Skin: No rashes, lesions, ulcerations, subcutaneous nodules or induration. Imaging: None Assessment: 45-year-old female patient with DM type I, autoimmune thyroiditis, anxiety who was discharged from [facility] yesterday who requires admission to our facility for further evaluation and management of intractable back pain and bilateral foot drop. She reports she was admitted to [facility] on November 06 to get the surgery done for her lumbar disc bulges following the surgery she had bilateral foot drop as a complication. He was supposed to go to acute rehabilitation but was tested positive for Covid [reportedly without any symptoms] and did not get acute rehabilitation. Plan: Hypoglycemia, Hx of brittle DM type I during hospitalizations (I have taken care of her multiple times here) -Stopped AM levemir today due to lower than normal BS -C/w ISS, FS AC/HS, consistent carb diet -Hypoglycemic protocol Nausea, vomiting likely 2/2 to gastroparesis-resolved -Much improved today now that she is on home medications. -Stopped IVFS -Zofran, metoclopramide Hyponatremia likely 2/2 to dehydration 2/2 to nausea with vomiting -Resolved after resolution of vomiting and with IVFs -Stopped IVFs, encourage PO intake of fluid throughout day -F/u AM labs closely Bilateral foot drop s/p lumbar spinal surgery complication -Hx of spondylolisthesis implant failure L5-S1 s/p L3-S1 posterior lumbar interbody fusion with instrumentation 11/06/20 Dr. Gordon -Patient is unable to have any dorsiflexion of bilateral foot. -Activity recommendation from [facility]: Full WBAT -PT: Patient tolerates session well; appears well motivated to improve and is a good rehab candidate at this time. -ARU to screen E. coli lumbar wound infection -Underwent I&D of lumbar spine, wound revision, application of negative pressure wound vac system 11/24/20 -Blood cultures neg, Wound culture: E. coli -Was seen by ID at [facility], recommended ceftriaxone 2 g IV Q24 H based on sensitivities, total duration 6 weeks from start date 11/24/2020. with transition to chronic oral suppression thereafter -Has ID clinic f/u, will need to confirm date of follow up this week -Monitor with CBC regularly Acute on chronic back pain 2/2 to above, chronic back issues -C/w all home meds including tylenol, gabapentin, morphine BID, morphine PRN, muscle relaxants and patient's pain better controlled. -BR started -Monitor closely HTN -Stable -Hydralazine PRN GERD -PPI DVT prophylaxis: -Lovenox DISPOSITION: PT/OT. Plan is likely continued rehab, ARU to screen. VS, I&O, 24H, [place] Vital Signs/I&O Vital Signs Date Time Temp Pulse Resp B/P (MAP) Pulse Ox O2 Delivery O2 Flow Rate FiO2 12/07/20 14:00 97.8 70 20 107/50 (69) 97 Room Air I&O- Last 24 Hours up to 6 AM 12/07/20 06:00 Intake Total 3370 ml Output Total 600 ml Balance 2770 ml Laboratory Data 24H LABS Laboratory Tests 2 12/06/20 20:14: Bedside Glucose (Misc Panel) 78 12/07/20 06:30: Nucleated Red Blood Cells % (auto) 0.0, Anion Gap 5L, Glomerular Filtration Rate > 60.0, Calcium Level 8.4L, Total Bilirubin < 0.1#L, Aspartate Amino Transf (AST/SGOT) 17, Alanine Aminotransferase (ALT/SGPT) 12, Alkaline Phosphatase 86, Total Protein 6.5, Albumin 2.1L, Albumin/Globulin Ratio 0.5L 12/07/20 11:39: Bedside Glucose (Misc Panel) 110H 12/07/20 17:16: Bedside Glucose (Misc Panel) 74 CBC/BMP Laboratory Tests 12/07/20 06:30 Microbiology Microbiology 12/05/20 Blood Culture - Preliminary, Resulted No growth after 24 hours . All specim... 12/05/20 Blood Culture - Preliminary, Resulted No growth after 24 hours . All specim... Current Medications Current Medications Medications (Trade) Dose Ordered Sig/Esmer Route PRN Reason Start Time Stop Time Status Last Admin Dose Admin Acetaminophen (Tylenol Tab) 650 mg Q4H PRN PO PAIN OR FEVER 12/04/20 22:30 12/05/20 18:34 DC 12/05/20 08:32 Acetaminophen (Tylenol Tab) 1,000 mg Q8HP PRN PO PAIN / FEVER 12/05/20 18:30 Acetaminophen/ Hydrocodone Bitart ([place], Anexsia 5/325) 1 tab Q4HP PRN PO MILD/MODERATE PAIN (PS 1-7) 12/05/20 08:30 12/05/20 18:34 DC Acetaminophen/ Hydrocodone Bitart ([place], Anexsia 5/325) 2 tab Q4HP PRN PO SEVERE PAIN (PS 8-10) 12/05/20 08:30 12/05/20 18:34 DC 12/05/20 13:38 Al Hydrox/Mg Hydrox/Simethicone (Mylanta) 30 ml DAILY PRN PO DYSPEPSIA 12/04/20 22:30 Bisacodyl (Dulcolax Suppository) 10 mg DAILY PRN [place] CONSTIPATION 12/04/20 22:30 Calcium Carbonate (Tums) 500 mg Q4HP PRN PO INDIGESTION 12/04/20 22:30 Ceftriaxone Sodium 2 gm/ Dextrose 50 ml @ 50 mls/hr Q24H IV 12/05/20 17:00 01/04/21 21:00 12/07/20 16:20 Ceftriaxone Sodium (Rocephin) 2 gm DAILY IV 12/05/20 09:00 12/05/20 01:28 DC Ceftriaxone Sodium (Rocephin) 2 gm DAILY IV 12/05/20 15:00 Cancel Dextrose (Dextrose 50%) 25 ml ASDIRECTED PRN IV SEE LABEL COMMENTS 12/04/20 22:30 12/06/20 13:35 Docusate Sodium (Colace) 100 mg BID PO 12/05/20 09:00 12/07/20 08:05 Enoxaparin Sodium (Lovenox) 40 mg DAILY SC 12/05/20 09:00 12/07/20 08:06 Fluoxetine HCl (PROzac) 40 mg DAILY PO 12/05/20 09:00 12/07/20 08:05 Gabapentin (Neurontin) 300 mg TID PO 12/04/20 22:48 12/04/20 22:49 DC Gabapentin (Neurontin) 600 mg TID PO 12/04/20 21:00 12/04/20 22:49 DC Gabapentin (Neurontin) 600 mg TID PO 12/05/20 21:00 12/07/20 16:21 Gabapentin (Neurontin) 900 mg TID PO 12/04/20 22:47 12/04/20 22:48 DC Gabapentin (Neurontin) 900 mg TID PO 12/04/20 22:49 12/05/20 18:34 DC 12/05/20 08:32 Gabapentin (Neurontin) 90,000 mg TID PO 12/04/20 21:00 12/04/20 22:47 DC Glucagon (Glucagon) 1 mg ASDIRECTED PRN SC SEE LABEL COMMENTS 12/04/20 22:30 Glucose (Glucose) 16 GM ASDIRECTED PRN PO SEE LABEL COMMENTS 12/04/20 22:30 12/06/20 12:45 Heparin Sodium (Heparin (Flush)) 200 units PICC IV 12/05/20 18:00 Home Med (Med Rec Complete!) ASDIRECTED XX 12/04/20 21:45 12/04/20 21:34 DC Hydralazine HCl (Apresoline) 10 mg Q8HP PRN PO SEE PROTOCOL 12/05/20 18:45 Insulin Detemir (Levemir Insulin) 8 units QAM SC 12/07/20 09:00 12/07/20 08:06 Insulin Detemir (Levemir Insulin) 10 units QAM SC 12/07/20 09:00 12/07/20 07:44 DC Insulin Detemir (Levemir Insulin) 18 units QAM SC 12/06/20 09:00 12/06/20 18:21 DC 12/06/20 09:22 Insulin Detemir (Levemir Insulin) 18 units QHS SC 12/05/20 21:00 12/05/20 18:34 DC Insulin Detemir (Levemir Insulin) 18 units QHS CA 12/05/20 22:15 12/06/20 18:21 DC 12/05/20 22:35 Insulin Human Lispro (HumaLOG INSULIN) See Protocol Table AC CA 12/05/20 07:30 12/05/20 08:11 DC Insulin Human Lispro (HumaLOG INSULIN) See Protocol Table AC CA 12/05/20 07:30 12/07/20 08:06 Labetalol HCl (Normodyne, Trandate) 20 mg STAT STAT IV 12/04/20 22:46 12/04/20 22:47 Cancel Magnesium Hydroxide (Milk Of Magnesia) 30 ml DAILY PRN PO CONSTIPATION 12/04/20 22:30 Methocarbamol (Robaxin) 500 mg BIDP PRN PO MUSCLE SPASMS 12/05/20 18:30 Metoclopramide HCl (Reglan) 10 mg Q8HP PRN PO NAUSEA OR VOMITING 12/05/20 18:30 Mirtazapine (Remeron) 30 mg QHS PO 12/05/20 21:00 12/06/20 22:02 Mirtazapine (Remeron) 30 mg QHS PRN PO insomnia 12/04/20 21:00 12/05/20 18:34 DC 12/05/20 02:09 Morphine Sulfate (Morphine Sulfate Inj) 2 mg Q4H IV 12/04/20 22:30 12/05/20 01:07 DC Morphine Sulfate (Morphine Sulfate Inj) 2 mg Q4H PRN IV SEVERE PAIN (PS 8-10) 12/05/20 01:07 12/05/20 18:34 DC 12/05/20 14:44 Morphine Sulfate (Morphine Sulfate Inj) 4 mg Q6H IV 12/04/20 22:00 12/05/20 01:07 DC 12/04/20 23:18 Morphine Sulfate (Morphine Sulfate Inj) 4 mg Q6H PRN IV MODERATE TO SEVERE PAIN 12/05/20 01:07 12/05/20 08:29 DC 12/05/20 05:34 Morphine Sulfate (Morphine Sulfate Oral Solution) 10 mg Q6HP PRN PO SEVERE PAIN (PS 8-10) 12/05/20 18:30 12/07/20 12:39 Morphine Sulfate (Ms Contin) 60 mg Q12H PO 12/05/20 21:00 12/07/20 08:05 Ondansetron HCl (ZOFRAN INJection) 4 mg Q6H IV 12/05/20 18:00 12/07/20 12:37 Ondansetron HCl (Zofran) 4 mg DAILY PRN PO nausea/vomiting 12/04/20 22:30 12/05/20 17:41 DC 12/05/20 14:13 Pantoprazole Sodium (Protonix) 40 mg DAILY PO 12/05/20 09:00 12/07/20 08:05 Psyllium Hydrophilic Mucilloid (Metamucil) 1 pkt DAILY PO 12/05/20 09:00 Sodium Chloride 1,000 ml @ 100 mls/hr Q10H IV 12/05/20 18:00 12/07/20 12:37 Sodium Chloride (Saline Lock Flush) 10 ml ASDIRECTED PRN IV SEE LABEL COMMENTS 12/05/20 16:30 Sodium Chloride (Saline Lock Flush) 10 ml PICC IV 12/05/20 18:00 Tizanidine HCl (Zanaflex) 4 mg QID PO 12/05/20 21:00 12/07/20 16:21 Allergies Coded Allergies: No Known Allergies (Verified , 12/05/20) Ana Gastelum MD Dec 07, 2020 17:39
[2020-12-07] MEDS: MIRTAZAPINE 15 MG TAB PO SCH (20:34)
[2020-12-07 22:00] VITALS: BP 143/90
[2020-12-08] MEDS: ONDANSETRON 4MG/2ML VIAL IV SCH ×4 (00:57→17:33)
[2020-12-08] MEDS: SODIUM CHLORIDE 0.9% INJ 10 ML SYR IV SCH ×2 (05:32→17:33)
[2020-12-08 06:00] VITALS: BP 186/85
[2020-12-08 08:23] LABS: HEMATOCRIT 29.8 % (36.0-47.0); HEMOGLOBIN 8.6 g/dl (12.0-15.5); MEAN CORPUSCULAR HEMOGLOBIN 27.5 pg (27.0-33.0); MEAN CORPUSCULAR HGB CONC 28.9 g/dl (32.0-36.5); MEAN CORPUSCULAR VOLUME 95.2 fl (80.0-96.0); PLATELET COUNT, AUTOMATED 445 10^3/uL (150-450); RED BLOOD COUNT 3.13 10^6/uL (4.00-5.40); WHITE BLOOD COUNT 7.6 10^3/uL (4.0-10.0)
[2020-12-08] MEDS: PANTOPRAZOLE 40MG TAB (PROTONIX) PO SCH (08:42)
[2020-12-08] MEDS: FLUoxetine 20 MG CAP PO SCH (08:43)
[2020-12-08] MEDS: GABAPENTIN 300 MG CAP PO SCH ×2 (08:43→16:45)
[2020-12-08] MEDS: HumaLOG INSULIN (NovoLOG) PER UNIT SC SCH ×3 (08:43→17:30)
[2020-12-08] MEDS: MORPHINE 30 MG SA TAB PO SCH (08:44)
[2020-12-08] MEDS: METAMUCIL (PSYLLIUM) PACKET PO SCH (08:44)
[2020-12-08] MEDS: DOCUSATE SODIUM 100MG CAPSULE PO SCH (08:44)
[2020-12-08] MEDS: tiZANidine 4 MG TAB PO SCH ×3 (08:44→16:45)
[2020-12-08] MEDS: ENOXAPARIN 40MG/0.4ML SYRINGE (J1650 PER 10MG) SC SCH (08:44)
[2020-12-08 09:08] LABS: ALBUMIN 2.3 GM/DL (3.2-5.2); ALT/SGPT 13 U/L (12-78); BILIRUBIN,TOTAL 0.1 MG/DL (0.2-1.0); BLOOD UREA NITROGEN 8 MG/DL (7-18); CALCIUM LEVEL 8.5 MG/DL (8.5-10.1); CARBON DIOXIDE LEVEL 26 MEQ/L (21-32); CHLORIDE LEVEL 102 MEQ/L (98-107); CREATININE FOR GFR 0.79 MG/DL (0.55-1.30); GLOMERULAR FILTRATION RATE > 60.0 (>58); GLUCOSE, FASTING 409 MG/DL (70-100); POTASSIUM SERUM 4.6 MEQ/L (3.5-5.1); SODIUM LEVEL 136 MEQ/L (136-145)
--- NOTE | 2020-12-08 11:01 | DS.PDOC ---
Discharge Summary General Date of Admission Dec 04, 2020 at 22:20 Date of Discharge 12/08/20 Discharge Summary PROCEDURES PERFORMED DURING STAY: [None]. DISCHARGE DIAGNOSES: brittle DM type I Nausea, vomiting likely 2/2 to gastroparesis Hyponatremia likely 2/2 to dehydration 2/2 to nausea with vomiting Bilateral foot drop s/p lumbar spinal surgery complication E. coli lumbar wound infection Acute on chronic back pain 2/2 to above, chronic back issues HTN GERD COMPLICATIONS/CHIEF COMPLAINT: Acquired Bilateral Foot Drop,Intractable Back Pain. HISTORY OF PRESENT ILLNESS: Mrs. Carpio is a 45-year-old female with past medical history of DM type I, autoimmune thyroiditis, anxiety/depression, chronic low back pain who is presenting to [facility] 1 day after discharge from [facility] where she was admitted for surgery on November 06 for her lumbar disc bulges. She presents to [facility] today as she is unable to walk, she reports it is a complication from the surgery and has bilateral foot drop. He also has a wound VAC at that location of her surgery. She reports she was about to go to acute rehabilitation on November 12 when she was tested positive for covid and did not get rehabilitation at [facility]. She was discharged in a wheelchair. Patient reports having pain in the lumbar region, and numbness in the right leg extending from hip to the foot laterally and in the left leg from the knee to the foot. HOSPITAL COURSE: 45-year-old female patient with DM type I, autoimmune thyroiditis, anxiety who was discharged from [facility] yesterday who requires admission to our facility for further evaluation and management of intractable back pain and bilateral foot drop. She reports she was admitted to [facility] on November 06 to get the surgery done for her lumbar disc bulges following the surgery she had bilateral foot drop as a complication. She was supposed to go to acute rehabilitation but was tested positive for Covid [reportedly without any symptoms] and did not get acute rehabilitation. #Hypoglycemia, Hx of brittle DM type I during hospitalizations -C/w ISS, FS AC/HS, consistent carb diet -Hypoglycemic protocol #Nausea, vomiting likely 2/2 to gastroparesis-resolved -Much improved now that she is on home medications. -Zofran, metoclopramide #Hyponatremia likely 2/2 to dehydration 2/2 to nausea with vomiting -Resolved after resolution of vomiting and with IVFs -Stopped IVFs, encourage PO intake of fluid throughout day #Bilateral foot drop s/p lumbar spinal surgery complication -Hx of spondylolisthesis implant failure L5-S1 s/p L3-S1 posterior lumbar interbody fusion with instrumentation 11/06/20 Dr. Gordon -Patient is unable to have any dorsiflexion of bilateral foot. -Activity recommendation from [facility]: Full WBAT -PT: Patient tolerates session well; appears well motivated to improve and is a good rehab candidate at this time. #E. coli lumbar wound infection -Underwent I&D of lumbar spine, wound revision, application of negative pressure wound vac system 11/24/20 -Blood cultures neg, Wound culture: E. coli -Was seen by ID at [facility], recommended ceftriaxone 2 g IV Q24 H based on sensitivities, total duration 6 weeks from start date 11/24/2020. with transition to chronic oral suppression thereafter -Has ID clinic f/u, will need to confirm date of follow up this week -Monitor with CBC regularly #Acute on chronic back pain 2/2 to above, chronic back issues -C/w all home meds including tylenol, gabapentin, morphine BID, morphine PRN, muscle relaxants and patient's pain better controlled. #HTN -Stable #GERD -PPI DISCHARGE MEDICATIONS: Please see below. ALLERGIES: Please see below. PHYSICAL EXAMINATION ON DISCHARGE: General: NAD, lying comfortably in bed Eyes: Conjunctiva clear, pupils equal round and reactive to light and accommodation. EOM full, Fundus: not visualized. ENT: Hearing Bilateral normal. No nasal deviation, oropharynx clear with no lesions/erythema. Cardiovascular: S1, S2, normal rhythm, no murmur. Respiratory: Chest is clear to auscultation bilaterally, no rhonchi, wheezes or rubs. Abdomen: Soft, bowel sounds positive, no bruits. Nontender on palpation. Extremities: No clubbing or cyanosis. No edema, no tenderness. Spine: wound with wound VAC in place in the lumbar spinal region, no redness or tenderness in the surrounding area Central nervous system (HEALTH CARE AIDE): Awake, alert and fully oriented. Cranial nerves III-XII grossly intact. Motor: Strength normal in upper extremities, in the lower extremities patient is not able to dorsiflex her bilateral foot, plantar flexion preserved. Sensory: grossly normal to touch and decreased pin prick on bilateral dorsal and medial surface of foot. Cerebellar: Did not assess. Skin: No rashes, lesions, ulcerations, subcutaneous nodules or induration. LABORATORY DATA: Please see below. ACTIVITY: [As tolerated]. DISPOSITION: Discharge to ARU DISCHARGE INSTRUCTIONS: 1. Further direction as per ARU DISCHARGE CONDITION: [Stable]. TIME SPENT ON DISCHARGE: 35 minutes. Vital Signs/I&Os Vital Signs Date Time Temp Pulse Resp B/P (MAP) Pulse Ox O2 Delivery O2 Flow Rate FiO2 12/08/20 08:44 18 Room Air 12/08/20 06:00 99.4 99 186/85 (118) 94 I&O- Last 24 Hours up to 6 AM 12/08/20 06:00 Intake Total 4580 ml Output Total 700 ml Balance 3880 ml Laboratory Data Labs 24H Laboratory Tests 2 12/07/20 11:39: Bedside Glucose (Misc Panel) 110H 12/07/20 17:16: Bedside Glucose (Misc Panel) 74 12/07/20 18:18: Bedside Glucose (Misc Panel) 116H 12/07/20 19:58: Bedside Glucose (Misc Panel) 157H 12/08/20 07:51: Bedside Glucose (Misc Panel) 403H 12/08/20 07:57: Nucleated Red Blood Cells % (auto) 0.0, Anion Gap 8, Glomerular Filtration Rate > 60.0, Calcium Level 8.5, Total Bilirubin 0.1L, Aspartate Amino Transf (AST/SGOT) 10, Alanine Aminotransferase (ALT/SGPT) 13, Alkaline Phosphatase 105, Total Protein 7.0, Albumin 2.3L, Albumin/Globulin Ratio 0.5L CBC/BMP Laboratory Tests 12/08/20 07:57 FSBS Laboratory Tests Test 12/07/20 11:39 12/07/20 17:16 12/07/20 18:18 12/07/20 19:58 Range/Units Bedside Glucose (Misc Panel) 110 74 116 157 70-105 MG/DL Test 12/08/20 07:51 Range/Units Bedside Glucose (Misc Panel) 403 70-105 MG/DL Microbiology Microbiology 12/05/20 Blood Culture - Preliminary, Resulted No Growth after 48 hours. All Specime... 12/05/20 Blood Culture - Preliminary, Resulted No Growth after 48 hours. All Specime... Discharge Medications Scheduled Ceftriaxone Sodium (Ceftriaxone) 1 Gm Vial, 2 GRAM IV DAILY, (Reported) home health nurse administered 12/04/20 Fluoxetine Hcl (Fluoxetine HCl) 40 Mg Capsule, 40 MG PO DAILY Furosemide (Furosemide) 20 Mg Tablet, 20 MG PO DAILY Gabapentin (Gabapentin) 300 Mg Capsule, 600 MG PO TID Insulin Glargine,Hum.rec.anlog (Basaglar Kwikpen U-100) 100 Unit/1 Ml Insuln.pen, 5 UNIT SC DAILY hold for finger stick less than 200 Insulin Lispro (Admelog) 100 Unit/1 Ml Vial, 1 DOSE SC AC, (Reported) PER SLIDING SCALE L.acidoph/L.bulg/B.bif/S.therm (Lauryn-Bid Caplet) 1 Each Tablet, 1 EA PO WMHS Lisinopril (Lisinopril) 20 Mg Tablet, 20 MG PO DAILY Mirtazapine (Remeron) 30 Mg Tablet, 30 MG PO QHS Morphine Sulfate (Morphine Sulfate ER 24HR) 30 Mg Cap.er.pel, 60 MG PO BID, (Reported) Pantoprazole Sodium (Pantoprazole Sodium) 40 Mg Tablet.dr, 40 MG PO DAILY Psyllium Husk (with Sugar) (Metamucil Powder) 575 Gm Powder, 1 PKT PO QPM, (Reported) Tizanidine HCl (Tizanidine HCl) 4 Mg Tablet, 4 MG PO QID Scheduled PRN Acetaminophen (Mapap) 500 Mg Capsule, 1,000 MG PO Q6HP PRN for PAIN, (Reported) Bisacodyl (Bisacodyl) 10 Mg Supp.rect, 10 MG [place] DAILY PRN for CONSTIPATION, (Reported) Calcium Carbonate (Calcium Carbonate) 500 Mg Tablet, 500 MG PO Q4HP PRN for LAUREN GESTION, (Reported) Morphine Sulfate (Morphine Sulfate) 10 Mg/5 Ml Solution, 5 ML PO Q6H PRN for SEVERE PAIN (PS 8-10), (Reported) Allergies Coded Allergies: No Known Allergies (Verified , 12/05/20) CONY BENNETT MD Dec 08, 2020 11:01
[2020-12-08 14:00] VITALS: BP 121/67
[2020-12-08 15:22] VITALS: BP 122/68
[2020-12-08] MEDS: cefTRIAXone SOD 2 GM in D5W MINI-BAG PLUS 50 ML IV SCH (16:45)
[2020-12-16] MEDS ORDERED: LISI-898 PO (10:53)
[2020-12-17] MEDS ORDERED: LISI20TA33 PO (10:29)
== END 2020-12-08 18:00 | DRG 58 ==
LOC: M ED 17:40 → M ED INP 22:20 → M MS5PR 12-05 00:36
PROVIDERS: ADMIT Family Medicine; ATTEND Internal Medicine
DX: G97.82 Other postprocedural complications and disorders of nervous system (principal); E10.649 Type 1 diabetes mellitus with hypoglycemia without coma; K31.84 Gastroparesis; E10.43 Type 1 diabetes mellitus with diabetic autonomic (poly)neuropathy; E87.1 Hypo-osmolality and hyponatremia; T81.49XD Infection following a procedure, other surgical site, subsequent encounter; F32.9 Major depressive disorder, single episode, unspecified; M21.371 Foot drop, right foot; M54.5 Low back pain; E06.3 Autoimmune thyroiditis; F41.9 Anxiety disorder, unspecified; Z87.891 Personal history of nicotine dependence; Z79.4 Long term (current) use of insulin; Z79.899 Other long term (current) drug therapy; M21.372 Foot drop, left foot; Z98.1 Arthrodesis status; I10 Essential (primary) hypertension; K21.9 Gastro-esophageal reflux disease without esophagitis; Z86.16 Personal history of COVID-19; Y83.8 Other surgical procedures as the cause of abnormal reaction of the patient, or of later complication, without mention of misadventure at the time of the procedure

== ENCOUNTER 2020-12-07 14:10 | Inpatient (IN) | payer OTHER ==
[~2020-12-07] VITALS: Ht 162.6 cm; Wt 63.5 kg
[~2020-12-07 14:10] MED LIST changes: +BISA10SU4 PR; +CALC500T60 PO; +CEFT1INJ5 IV; +GABA-282 PO; +MAPA500C PO; +META28.32 PO; -METH-1164 PO; -METH-1165 PO; +METH1TAB40 PO; +METH750T2 PO; +MIRT-60 PO; +MORP10SO2 PO; +MORP1CAP48 PO; +MORP1SOL4 PO; +ZOFR4TAB16 PO
[2020-12-08] MEDS: **hydrALAZINE HCL** 25 MG TAB PO SCH (18:00)
--- OUTSIDE RECORDS SUMMARY | 2020-12-08 18:14 | CCD ---
Author Author [facility] Organization [facility] Address Unknown Phone Unavailable Care Team Providers Care Logger Name Role Phone NoyoYudelkaby PA Unavailable Unavailable [...] M Sandrine PA Unavailable Unavailable Scordo, M Asndrine PA Unavailable Unavailable Scordo, M Sandrine PA [...] Unavailable AMROMIN, JANNETH MD Unavailable Unavailable AMROMIN, JANENTH MD Unavailable Unavailable AMROMIN, JANNETH MD Unavailable [...] JANNETH MD Unavailable Unavailable Marylu ALONZO ZEINA UNDER SEAL OPERATOR Unavailable Unavailable Marylu ALONZO ZEINA UNDER SEAL OPERATOR Unavailable Unavailable CLINTON B ZEINA UNDER SEAL OPERATOR Unavailable Unavailable COOK, B ZEINA UNDER SEAL OPERATOR Unavailable Unavailable COOK, B ZEINA UNDER SEAL OPERATOR Unavailable Unavailable COOK, B ZEINA UNDER SEAL OPERATOR Unavailable Unavailable COOK, B ZEINA UNDER SEAL OPERATOR Unavailable Unavailable COOK, B ZEINA UNDER SEAL OPERATOR Unavailable Unavailable COOK, B ZEINA UNDER SEAL OPERATOR Unavailable Unavailable COOK, B ZEINA UNDER SEAL OPERATOR Unavailable Unavailable COOK, B ZEINA UNDER SEAL OPERATOR Unavailable Unavailable COOK, B ZEINA UNDER SEAL OPERATOR Unavailable Unavailable COOK, B ZEINA UNDER SEAL OPERATOR Unavailable Unavailable COOK, B ZEINA UNDER SEAL OPERATOR Unavailable Unavailable COOK, B ZEINA UNDER SEAL OPERATOR Unavailable Unavailable COOK, B ZEINA UNDER SEAL OPERATOR Unavailable Unavailable COOK, B ZEINA UNDER SEAL OPERATOR Unavailable Unavailable COOK, B ZEINA UNDER SEAL OPERATOR Unavailable Unavailable COOK, B ZEINA UNDER SEAL OPERATOR Unavailable Unavailable COOK, B ZEINA UNDER SEAL OPERATOR Unavailable Unavailable COOK, B ZEINA UNDER SEAL OPERATOR Unavailable Unavailable COOK, B ZEINA UNDER SEAL OPERATOR Unavailable Unavailable COOK, B ZEINA UNDER SEAL OPERATOR Unavailable Unavailable COOK, B ZEINA UNDER SEAL OPERATOR Unavailable Unavailable COOK, B ZEINA UNDER SEAL OPERATOR Unavailable Unavailable COOK, B ZEINA UNDER SEAL OPERATOR Unavailable Unavailable COOK, B ZEINA UNDER SEAL OPERATOR Unavailable Unavailable COOK, B ZEINA UNDER SEAL OPERATOR Unavailable Unavailable COOK, B ZEINA UNDER SEAL OPERATOR Unavailable Unavailable COOK, B ZEINA UNDER SEAL OPERATOR Unavailable Unavailable COOK, B ZEINA UNDER SEAL OPERATOR Unavailable Unavailable COOK, B ZEINA UNDER SEAL OPERATOR Unavailable Unavailable COOK, B ZEINA UNDER SEAL OPERATOR Unavailable Unavailable COOK, B ZEINA UNDER SEAL OPERATOR Unavailable Unavailable COOK, B ZEINA UNDER SEAL OPERATOR Unavailable Unavailable COOK, B ZEINA UNDER SEAL OPERATOR Unavailable Unavailable COOK, B ZEINA UNDER SEAL OPERATOR Unavailable Unavailable COOK, B ZEINA UNDER SEAL OPERATOR Unavailable Unavailable COOK, B ZEINA UNDER SEAL OPERATOR Unavailable Unavailable COOK, B ZEINA UNDER SEAL OPERATOR Unavailable Unavailable COOK, B ZEINA UNDER SEAL OPERATOR Unavailable Unavailable COOK, B ZEINA UNDER SEAL OPERATOR Unavailable Unavailable COOK, B ZEINA UNDER SEAL OPERATOR Unavailable Unavailable COOK, B ZEINA UNDER SEAL OPERATOR Unavailable Unavailable COOK, B ZEINA UNDER SEAL OPERATOR Unavailable Unavailable COOK, B ZEINA UNDER SEAL OPERATOR Unavailable Unavailable COOK, B ZEINA UNDER SEAL OPERATOR Unavailable Unavailable COOK, B ZEINA UNDER SEAL OPERATOR Unavailable Unavailable COOK, B ZEINA UNDER SEAL OPERATOR Unavailable Unavailable COOK, B ZEINA UNDER SEAL OPERATOR Unavailable Unavailable COOK, B ZEINA UNDER SEAL OPERATOR Unavailable Unavailable COOK, B ZEINA UNDER SEAL OPERATOR Unavailable Unavailable COOK, B ZEINA UNDER SEAL OPERATOR Unavailable Unavailable COOK, B ZEINA UNDER SEAL OPERATOR Unavailable Unavailable COOK, B ZEINA UNDER SEAL OPERATOR Unavailable Unavailable COOK, B ZEINA UNDER SEAL OPERATOR Unavailable Unavailable COOK, B ZEINA UNDER SEAL OPERATOR Unavailable Unavailable COOK, B ZEINA UNDER SEAL OPERATOR Unavailable Unavailable COOK, B ZEINA UNDER SEAL OPERATOR Unavailable Unavailable COOK, B ZEINA UNDER SEAL OPERATOR Unavailable Unavailable Marylu ALONZO ZEINA UNDER SEAL OPERATOR Unavailable Unavailable Marylu ALONZO ZEINA UNDER SEAL OPERATOR Unavailable Unavailable CLINTON, Marylu ZEINA UNDER SEAL OPERATOR Unavailable Unavailable Marylu ALONZO ZEINA UNDER SEAL OPERATOR Unavailable Unavailable MD ZAHRAA Unavailable Unavailable RING, [...] GIA OPTTER MD Unavailable Unavailable RING, GIA OPTTER MD [...] Unavailable Evan, Kelly Mckinley MD Unavailable Unavailable Vean, Kelly Mckinley MD Unavailable Unavailable Evan, Kelly [...] Evan, Kelly Mckinley MD Unavailable Unavailable Evan, Klely Mckinley MD Unavailable Unavailable Evan, Kelly Mckinley MD Unavailable Unavailable Evan, Kelly Mckinley MD Unavailable Unavailable Evna, Kelly Mckinley MD Unavailable Unavailable Evan, Kelly Mckinley MD Unavailable Unavailable Evan, Kelly Mckinley MD Unavailable Unavailable Evan, A Elías MD Unavailable Unavailable Evan, A Elías MD Unavailable Unavailable Evan, A Elías MD Unavailable Unavailable Evan, A Elías MD Unavailable Unavailable Evan, A Elías MD Unavailable Unavailable Evan, A Elías MD Unavailable Unavailable Evan, A Elías MD Unavailable Unavailable Evan, A Leías MD Unavailable Unavailable Evan, A Elías MD Unavailable Unavailable Evan, A Elías MD Unavailable Unavailable Evan, A Elías MD Unavailable Unavailable Evan, A Elías MD Unavailable Unavailable Evan, A Elías MD Unavailable Unavailable Evan, A Elías MD Unavailable Unavailable Evan, A Elías MD Unavailable Unavailable Evan, A Elías MD Unavailable Unavailable Evan, A Elías MD Unavailable Unavailable Evan, A Elías MD Unavailable Unavailable Evna, A Elías MD Unavailable Unavailable Evan, A [...] A Elías PIZANO Unavailable Unavailable Evan, A Eílas PIZANO Unavailable Unavailable Evan, A Elías PIZANO [...] GIA POTTER MD Unavailable Unavailable RING, GIA PTOTER MD Unavailable Unavailable RING, GAI POTTER MD [...] Unavailable Lizeth POLO MD Unavailable Unavailable Lizeht POOL MD Unavailable Unavailable Lizeth POLO MD Unavailable [...] POLO MD Unavailable Unavailable Jumalon, M Sruthi EDI COORDINATOR Unavailable Unavailable Jumalon, M Sruthi EDI COORDINATOR Unavailable Unavailable Jumalon, M Sruthi EDI COORDINATOR Unavailable Unavailable Jumalon, M Sruthi EDI COORDINATOR Unavailable Unavailable Jumalon, M Sruthi EDI COORDINATOR Unavailable Unavailable Jumalon, M Sruthi EDI COORDINATOR Unavailable Unavailable Jumalon, M Sruthi EDI COORDINATOR Unavailable Unavailable Jumalon, M Sruthi EDI COORDINATOR Unavailable Unavailable Jumalon, M Sruthi EDI COORDINATOR Unavailable Unavailable Jumalon, M Sruthi EDI COORDINATOR Unavailable Unavailable Jumalon, M Sruthi EDI COORDINATOR Unavailable Unavailable Jumalon, M Sruthi EDI COORDINATOR Unavailable Unavailable Jumalon, M Sruthi EDI COORDINATOR Unavailable Unavailable Jumalon, M Sruthi EDI COORDINATOR Unavailable Unavailable Jumalon, M Sruthi EDI COORDINATOR Unavailable Unavailable Jumalon, M Sruthi EDI COORDINATOR Unavailable Unavailable Jumalon, M Sruthi EDI COORDINATOR Unavailable Unavailable Jumalon, M Sruthi EDI COORDINATOR Unavailable Unavailable Jumalon, M Sruthi EDI COORDINATOR Unavailable Unavailable Jumalon, M Sruthi EDI COORDINATOR Unavailable Unavailable Jumalon, M Sruthi EDI COORDINATOR Unavailable Unavailable Jumalon, M Sruthi EDI COORDINATOR Unavailable Unavailable Jumalon, M Sruthi EDI COORDINATOR Unavailable Unavailable Jumalon, M Sruthi EDI COORDINATOR Unavailable Unavailable Jumalon, M Sruthi EDI COORDINATOR Unavailable Unavailable Jumalon, M Sruthi EDI COORDINATOR Unavailable Unavailable Jumalon, M Sruthi EDI COORDINATOR Unavailable Unavailable Jumalon, M Sruthi EDI COORDINATOR Unavailable Unavailable Evan, A Elías PIZANO Unavailable [...] Unavailable Evan, A Elías PIZANO Unavailable Unavailable Eavn, A Elías PIZANO Unavailable Unavailable Evan, A [...] B Tracey PIZANO Unavailable Unavailable Fish, B Trcaey PIZANO Unavailable Unavailable Fish, B Tracey PIZANO [...] AMROMIN, JANNETH PIZANO Unavailable Unavailable AMROMIN, JANNETH IPZANO Unavailable Unavailable AMROMIN, JANNETH PIZANO Unavailable Unavailable [...] JANNETH PIZANO Unavailable Unavailable MEDENT_104, NA Unavailable [phone] Kelly Hernandes MD Unavailable Unavailable Kelly Hernandes [...] Ricky, Kelly Hernandez MD Unavailable Unavailable Ricky, eKlly Hernandez MD Unavailable Unavailable Ricky, Kelly Hernandez MD Unavailable Unavailable Ricky, Kelly Hernandez MD Unavailable Unavailable Ricky, Kelly Hernandez MD Unavailable Unavailable Ricky, Kelly Hernandez MD Unavailable Unavailable Ricky, Kelly Hernandez MD Unavailable Unavailable Ricky, Kelly Hernandez MD Unavailable Unavailable Ricky, Kelly Hernandez MD Unavailable Unavailable Ricky, Kelly Hernandez MD Unavailable Unavailable Ricky, Kelly Hernandez MD Unavailable Unavailable Lara, L Bette EDI COORDINATOR Unavailable Unavailable Lara, L Bette EDI COORDINATOR Unavailable Unavailable Lara, L Bette EDI COORDINATOR Unavailable Unavailable Lara, L Bette EDI COORDINATOR Unavailable Unavailable Lara, L Bette EDI COORDINATOR Unavailable Unavailable Lara, L Bette EDI COORDINATOR Unavailable Unavailable Lara, L Bette EDI COORDINATOR Unavailable Unavailable Lara, L Bette EDI COORDINATOR Unavailable Unavailable Lara, L Bette EDI COORDINATOR Unavailable Unavailable Lara, L Bette EDI COORDINATOR Unavailable Unavailable Lara, L Bette EDI COORDINATOR Unavailable Unavailable Lara, L Bette EDI COORDINATOR Unavailable Unavailable Lara, L Bette EDI COORDINATOR Unavailable Unavailable Lara, L Bette EDI COORDINATOR Unavailable Unavailable Lara, L Bette EDI COORDINATOR Unavailable Unavailable Lara, L Bette EDI COORDINATOR Unavailable Unavailable Lara, L Bette EDI COORDINATOR Unavailable Unavailable Lara, L Bette EDI COORDINATOR Unavailable Unavailable Lara, L Bette EDI COORDINATOR Unavailable Unavailable Lara, L Bette EDI COORDINATOR Unavailable Unavailable Lara, L Bette EDI COORDINATOR Unavailable Unavailable Lara, L Bette EDI COORDINATOR Unavailable Unavailable Lara, L Bette EDI COORDINATOR Unavailable Unavailable Lara, L Bette EDI COORDINATOR Unavailable Unavailable Lara, L Bette EDI COORDINATOR Unavailable Unavailable Lraa, L Bette EDI COORDINATOR Unavailable Unavailable Lara, L Bette EDI COORDINATOR Unavailable Unavailable Lara, L Bette EDI COORDINATOR Unavailable Unavailable Lara, L Bette EDI COORDINATOR Unavailable Unavailable Lara, L Bette EDI COORDINATOR Unavailable Unavailable Lara, L Bette EDI COORDINATOR Unavailable Unavailable Lara, L Bette EDI COORDINATOR Unavailable Unavailable Lara, L Bette EDI COORDINATOR Unavailable Unavailable Lara, L Bette EDI COORDINATOR Unavailable Unavailable Lara, L Bette EDI COORDINATOR Unavailable Unavailable Lara, L Bette EDI COORDINATOR Unavailable Unavailable Lara, L Bette EDI COORDINATOR Unavailable Unavailable Lara, L Bette EDI COORDINATOR Unavailable Unavailable Lara, L Bette EDI COORDINATOR Unavailable Unavailable Lara, L Bette EDI COORDINATOR Unavailable Unavailable Jamie, L Joy UNDER SEAL OPERATOR Unavailable Unavailable Jamie, L Joy UNDER SEAL OPERATOR Unavailable Unavailable Jamie, L Joy UNDER SEAL OPERATOR Unavailable Unavailable Jamie, L Joy UNDER SEAL OPERATOR Unavailable Unavailable Jamie, L Joy UNDER SEAL OPERATOR Unavailable Unavailable Jamie, L Joy UNDER SEAL OPERATOR Unavailable Unavailable Jamie, L Joy UNDER SEAL OPERATOR Unavailable Unavailable Jamie, L Joy UNDER SEAL OPERATOR Unavailable Unavailable Jamie, L Joy UNDER SEAL OPERATOR Unavailable Unavailable Jamie, L Joy UNDER SEAL OPERATOR Unavailable Unavailable Jamie, L Joy UNDER SEAL OPERATOR Unavailable Unavailable Jamie, L Joy UNDER SEAL OPERATOR Unavailable Unavailable Jamie, L Joy UNDER SEAL OPERATOR Unavailable Unavailable Jamie, L Joy UNDER SEAL OPERATOR Unavailable Unavailable Jamie, L Joy UNDER SEAL OPERATOR Unavailable Unavailable Jamie, L Joy UNDER SEAL OPERATOR Unavailable Unavailable Jamie, L Joy UNDER SEAL OPERATOR Unavailable Unavailable Jamie, L Joy UNDER SEAL OPERATOR Unavailable Unavailable Jamie, L Joy UNDER SEAL OPERATOR Unavailable Unavailable Jamie, L Joy UNDER SEAL OPERATOR Unavailable Unavailable Jamie, L Joy UNDER SEAL OPERATOR Unavailable Unavailable Jamie, L Joy UNDER SEAL OPERATOR Unavailable Unavailable Jamie, L Joy UNDER SEAL OPERATOR Unavailable Unavailable Jamie, L Joy UNDER SEAL OPERATOR Unavailable Unavailable Jamie, L Joy UNDER SEAL OPERATOR Unavailable Unavailable Jamie, L Joy UNDER SEAL OPERATOR Unavailable Unavailable Jamie, L Joy UNDER SEAL OPERATOR Unavailable Unavailable Jamie, L Joy UNDER SEAL OPERATOR Unavailable Unavailable Jamie, L Joy UNDER SEAL OPERATOR Unavailable Unavailable Jamie, L Joy UNDER SEAL OPERATOR Unavailable Unavailable Jamie, L Joy UNDER SEAL OPERATOR Unavailable Unavailable Jamie, L Joy UNDER SEAL OPERATOR Unavailable Unavailable Jamie, L Joy UNDER SEAL OPERATOR Unavailable Unavailable Jamie, L Joy UNDER SEAL OPERATOR Unavailable Unavailable Jamie, L Joy UNDER SEAL OPERATOR Unavailable Unavailable Jamie, L Joy UNDER SEAL OPERATOR Unavailable Unavailable Jamie, L Joy UNDER SEAL OPERATOR Unavailable Unavailable Agustin Fuentes MD Unavailable Unavailable [...] Unavailable Ricky, Kelly Hernandez MD Unavailable Unavailable Ircky, Kelly Hernandez MD Unavailable Unavailable Ricky, Kelly [...] Ricky, Kelly Hernandez MD Unavailable Unavailable Ricky, eKlly Hernandez MD Unavailable Unavailable Ricky, Kelly Hernandez [...] Lizeth SMITH MD Unavailable Unavailable Pleskach, Milady EDI COORDINATOR Unavailable Unavailable Pleskach, Milady EDI COORDINATOR Unavailable Unavailable Pleskach, Milady EDI COORDINATOR Unavailable Unavailable Pleskach, Milady EDI COORDINATOR Unavailable Unavailable Pleskach, Milady EDI COORDINATOR Unavailable Unavailable Pleskach, Milady EDI COORDINATOR Unavailable Unavailable Pleskach, Milady EDI COORDINATOR Unavailable Unavailable Pleskach, Milady EDI COORDINATOR Unavailable Unavailable Pleskach, Milady EDI COORDINATOR Unavailable Unavailable Pleskach, Milady EDI COORDINATOR Unavailable Unavailable Pleskach, Milady EDI COORDINATOR Unavailable Unavailable Pleskach, Milady EDI COORDINATOR Unavailable Unavailable Pleskach, Milady EDI COORDINATOR Unavailable Unavailable Pleskach, Milady EDI COORDINATOR Unavailable Unavailable Pleskach, Milady EDI COORDINATOR Unavailable Unavailable Pleskach, Milady EDI COORDINATOR Unavailable Unavailable Pleskach, Milady EDI COORDINATOR Unavailable Unavailable Pleskach, Milady EDI COORDINATOR Unavailable Unavailable Pleskach, Milady EDI COORDINATOR Unavailable Unavailable Pleskach, Milady EDI COORDINATOR Unavailable Unavailable Pleskach, Milady EDI COORDINATOR Unavailable Unavailable Pleskach, Milady EDI COORDINATOR Unavailable Unavailable Pleskach, Milady EDI COORDINATOR Unavailable Unavailable Pleskach, Milady EDI COORDINATOR Unavailable Unavailable Pleskach, Milady EDI COORDINATOR Unavailable Unavailable Pleskach, Milady EDI COORDINATOR Unavailable Unavailable Pleskach, Milady EDI COORDINATOR Unavailable Unavailable Pleskach, Milady EDI COORDINATOR Unavailable Unavailable Petrancosta, Surry Hanny PA-C Unavailable Unavailabl e Petrancosta, Surry Hanny PA-C Unavailable Unavailabl e Petrancosta, Surry Hanny PA-C Unavailable Unavailabl e Petrancosta, Surry Hanny PA-C Unavailable Unavailabl e Petrancosta, Surry Hanny PA-C Unavailable Unavailabl e Petrancosta, Surry Hanny PA-C Unavailable Unavailabl e Petrancosta, Surry Hanny PA-C Unavailable Unavailabl e Petrancosta, Surry Hanny PA-C Unavailable Unavailabl e Petrancosta, Surry Hanny PA-C Unavailable Unavailabl e Petrancosta, Surry Hanny PA-C Unavailable Unavailabl e Petrancosta, Surry Hanny PA-C Unavailable Unavailabl e Petrancosta, Surry Hanny PA-C Unavailable Unavailabl e Petrancosta, Surry Hanny PA-C Unavailable Unavailabl e Petrancosta, Surry Hanny PA-C Unavailable Unavailabl e Petrancosta, Surry Hanny PA-C Unavailable Unavailabl e Petrancosta, Surry Hanny PA-C Unavailable Unavailabl e Petrancosta, Surry Hanny PA-C Unavailable Unavailabl e Petrancosta, Surry Hanny PA-C Unavailable Unavailabl e Petrancosta, Surry Hanny PA-C Unavailable Unavailabl e Petrancosta, Phillip Hanny PA-C Unavailable Unavailabl e Petrancosta, Phillip Hanny PA-C Unavailable Unavailabl e Petrancosta, Phillip Hanny PA-C Unavailable Unavailabl e Petrancosta, Surry Hanny PA-C Unavailable Unavailabl e ALAM, ANTHONY-E [...] is protected by Article 27-F of the [facility] Public Health law. If you continue you may have access to information: Regarding HIV / AIDS; Provided by facilities licensed or operated by the [facility] Office of Mental Health; or Provided by the [facility] Office for People With Developmental Disabilities. If such information is present, then the following [facility] mandated warning applies: This information [...] law may result in a fine or [place] health [place] facility sentence or both. A general authorization for [...] Description Data Source(s) Unknown Male Problem [facility] ([facility] ) Unknown Male Problem [facility] ([facility] Unknown Unknown Problem [facility] ([facility]) mother,father Encounters Encounter Providers Location Date Indications Data Source(s ) Outpatient Attender: Joy Ayala NPReferrer: AUNG VITAL MD 01/05/2021 12:00:00 AM [facility] Outpatient Attender: Joy Ayala NPReferrer: AUNG VITAL MD 12/15/2020 12:00:00 AM [facility] Inpatient Attender: JANNETH Xiao matthew: AUNG VITAL MDAttender: TARIQ MENDIOLA MDAttender: LILIANA HARKINS DOAdmitter: LILIANA HARKINS DO 06:17:16 AM EST [facility] ( in Healthcare facility) Attender: JANNETH Xiaoender: MD SMALLSMAttender: Elías Gordon MDAdmitter: Elías Gordon MDConsultant: Mary Hernandes MD 11/06/2020 05:59:00 AM EST - 12/03/2020 04:05:00 PM EST [facility] Inpatient Attender: JANNETH castro: MD MCKEONttender: TARIQ MENDIOLA MDAttender: Elías Gordon MDAdmitter: Elías Gordon MD 1 01/07/2020 05:59:00 AM EST - 12/03/2020 04:05:00 PM EST LOW BACK PAIN, 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 [facility] LOW BACK PAIN, 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 Patient discharged. Inpatient Attender: TARIQ MENDIOLA MDAttender: Elías Gordon MD 11/06/2020 05:59:00 AM EST [facility] Outpatient Attender: LILIANA HARKINS DO 11/05/2020 09:35:27 AM EST [facility] Outpatient Attender: LILIANA HARKINS DO 11/04/2020 07:52:40 PM EST [facility] Outpatient Attender: Elías Gordon MD 11/04/2020 06:0 9:00 PM EST TYPE AND SCREEN [facility] TYPE AND SCREEN Outpatient Attender: Elías Gordon MDReferrer: Mary vazquez MD 11/04/2020 03:54:47 PM EST [facility] Recurring Patient Attender: EDER PLOO MDReferrer: EDER POLO MD 11/04/2020 02:34:59 PM EST [facility] Outpatient Attender: Elías Gordon MD 11/04/2020 12:0 8:00 PM EST L3-S1 POSTERIOR SPINAL FUSION WITH INSTRUMENTATION, POSTERIO [facility] L3-S1 POSTERIOR SPINAL FUSION WITH INSTR UMENTATION, POSTERIO Outpatient Attender: NA [facility]ENT_104 CMP Internal Med at [facility] 11/03/2020 10:15:00 AM EST [facility] ([facility] Outpatient Attender: Milady Galeas [facility] Main Office 11/02/2020 0 2:15:00 PM EST [facility] ([facility] Outpatient Attender: EDER POLO MDReferrer: Mary parks MD 10/29/2020 12:07:30 PM EST [facility] Recurring Patient Attender: EDER POLO MDReferrer: EDER POLO MD 10/29/2020 10:25:18 AM EST [facility] Outpatient Attender: Brenton Graf: EDER HEDRICK MD 10/19/2020 09:08:01 PM EST [facility] Outpatient Attender: Milady Galeas [facility] Main Office 10/13/2020 1 2:15:00 PM EST [facility] ([facility] Outpatient Attender: Brenton Graf: EDER HEDRICK MD 10/11/2020 05:12:57 PM EST [facility] Outpatient Attender: Hanny Tyson PA-C Main Office 09/23/2020 09:45:00 AM EST [facility] ([facility] Outpatient Attender: Brenton Pham PAReferrer: EDER HEDRICK MD 09/15/2020 11:43:14 AM EDT [facility] Outpatient Admitter: EDER POLO MDReferrer: EDER POLO MD MOB-MOB.PAT 09/10/2020 11:13:22 AM EDT - 09/10/2020 11:13:27 AM EDT [facility] Outpatient Attender: EDER POLO MDAdmitter: EDER POLO MDReferrer: EDER POLO MD MOB-MOB.PAT 09/07/2020 02:12:47 PM EDT - 09/07/2020 03:00:43 PM EDT [facility] Outpatient Attender: Hanny Tyson PA-C Main Office 09/02/2020 02:15:00 PM EDT [facility] ([facility] Inpatient Attender: KEEGAN SMITH MDAt tender: EDER POLO MDAdmitter: EDER POLO MD [id number] 08/24/2020 08:19:05 AM EDT - 09/17/2020 12:54:00 PM EDT [facility] Patient discharged. Outpatient Attender: EDER POLO MDReferrer: EDER POLO MD 08/14/2020 10:39:10 AM EDT [facility] Outpatient Attender: EDER POLO MDReferrer: Xiomy Marques CASAC 07/16/2020 11:36:39 AM EDT [facility] Recurring Patient Attender: EDER POLO MDReferrer: EDER POLO MD 07/16/2020 10:42:02 AM EDT [facility] Outpatient Attender: Tracey Boyle MD Physical Therapy 06/29 03:45:00 PM EDT [facility] ([facility]) Outpatient Referrer: Bette Lara EDI COORDINATOR 05/11/2020 05:07 :00 AM EDT [facility] Outpatient Attender: [id number] [facility] 04/28/2020 07:41:57 PM EDT [facility] Outpatient Attender: ZEINA ALONZO NP Physical Therapy 04/17/2020 0 9:45:00 AM EDT [facility] ([facility]) Outpatient Attender: ZEINA ALONZO NP Physical Therapy 03/16/2020 0 9:15:00 AM EDT [facility] ([facility]) Outpatient Attender: Tracey Boyle MD Physical Therapy 02/12 02:30:00 PM EDT [facility] ([facility]) Outpatient Attender: Agustin Fuentes MD Physical Therap y 01/02/2020 09:15:00 AM EST [facility] ([facility]) Outpatient Referrer: Bette Lara EDI COORDINATOR 01/01/2020 03:25 :00 PM EST [facility] Outpatient Attender: ZEINA ALONZO NP Physical Therapy 12/18/2019 0 1:30:00 PM EST [facility] ([facility]) Sruthi Maria, UNDER SEAL OPERATOR: [id number], [facility] [place] [address], Ph. Attender: Sruthi Maria [facility] 11/25/2019 12:00:00 AM EST ATHE NA ([facility]) Outpatient Attender: Sandrine Dixon [place] Main Office 10/22/2019 07:45:00 AM EST [facility] ([facility] Outpatient Attender: ZEINA ALONZO NP Physical Therapy 10/16/2019 1 0:15:00 AM EST [facility] ([facility]) Sruthi Maria, UNDER SEAL OPERATOR: [address], [place] [address], Ph. Attender: Sruthi Maria [facility] 10/15/2019 12:00:00 AM EST [facility] NA ([facility]) Sruthi Maria, UNDER SEAL OPERATOR: [id number], [address], [place] [address], Ph. Attender: Sruthi Maria [facility] - [facility] - Main Office 10/15/2019 12:00:00 AM EST [facility] NA ([facility]) Immunizations Vaccine Date Status Description Data Source(s) [...] BY MOUTH TWICE A DAY SOLD: 10/24/2020 [facility] Basaglar Kwikpen Basaglar Kwikpen 10/24/2020 12:00:00 AM EST active [facility] ([facility] 10 mg 10/24/2020 12:00:00 AM EST tablet 90 TAKE ONE TABLET BY MOUTH THREE TIMES A DAY NEEDED FOR NAUSEA AND VOMITING TAKE ONE TABLET BY MOUTH THREE TIMES A DAY NEEDED FOR NAUSEA AND VOMITING SOLD: 10/24/2020 [facility] pantoprazole 40 MG Delayed Release Oral Tablet PANTOPRAZOLE SODIUM 10/24/2020 12:00:00 AM EST tablet,delayed release (DR/EC) 30 T JAKE ONE TABLET BY MOUTH EVERY DAY TAKE ONE TABLET BY MOUTH EVERY DAY SOLD: 10/24/2020 [facility] Docusate Sodium 100 MG Oral Capsule [...] DAILY DOSE = TWO TABLETS SOLD: 10/24/2020 [facility] 7.5-325 mg 10/14/2020 12:00:00 AM EST [...] UNITS UNDER THE SKIN DAILY SOLD: 10/11/2020 [facility] Acetaminophen 325 MG / Oxycodone Hydrochloride [...] DAILY DOSE = EIGHT TABLETS SOLD: 09/30/2020 [facility] tizanidine 4 MG Oral Tablet TIZANIDINE [...] A S NEEDED FOR SPASMS SOLD: 09/30/2020 [facility] 5-325 mg 09/21/2020 12:00:00 AM EST tablet 80 TAKE 1-2 TABLETS BY MOUTH EVERY 4 HOURS NEEDED FOR POST OP PAIN , MAXIMUM DAILY DOSE = 8 TABLETS TAKE 1-2 TABLETS BY MOUTH EVERY 4 HOURS NEEDED FOR POST OP PAIN , MAXIMUM DAILY DOSE = 8 TABLETS SOLD: 09/21/2020 [facility] Bisacodyl 10 MG Rectal Suppository bisacodyl (DULCOLAX ) suppository 10 mg bisacodyl (DULCOLAX) suppository 10 mg 09/17/2020 07:00:00 PM EDT 10 mg Rectal active 10 mg, Rectal, Once, Eli 09/17/20 at 1900, For 1 dose, Post-op
Post-op day #2Hold for BM
[facility] Medication administered onsite ondansetron (ZOFRAN) injection 8 mg [id number] 09/17/2020 10:12:0 3 AM EDT 8 mg Intravenous active 8 mg, In travenous, Every 4 hours PRN, nausea, vomiting, Starting Eli 09/17/20 at 1012, For 22 doses, Post-op
If unable to take PO
[facility] Medication administered onsite Calcium Carbonate 500 MG Chewable Tablet calcium carbonate (TUMS) chewable tablet 1,000 mg calcium carbonate (TUMS) chewable tablet 1,000 mg 08/21 10:12:03 AM EDT 1000 mg Oral active 1,000 mg, Oral, 2 times daily PRN, indigestion, heartburn, Starting Eli 09/17/20 at 1012, Post-op [facility] Medication administered onsite Acetaminophen 325 [...] 09/17/20 at 1012, For 7 days, Post-op [facility] Medication administered onsite 1.5 ML Insulin Glargine 300 UNT/ML Pen Injector [Toujemartha] Manav Orourke 09/17/2020 12:00:00 AM EDT completed Arnieucallie Solostivana [facility] ([facility] 5-325 mg [...] as needed Max Daily Amount: 12 tablets [facility] Acetaminophen 325 MG / Hydrocodone [...] Starting Mon09/16/20 at 1231, For 7 days [facility] Medication administered onsite Acetaminophen 325 [...] 1231, For 7 days
FOR MILD PAIN
[facility] Medication administered onsite pantoprazole 40 MG Delayed Release Oral Tablet pantoprazole (PROTONIX) EC tablet 40 mg pantoprazole (PROTONIX) EC tablet 40 mg 09/16/2020 11:00:00 AM E DT 40 mg Oral completed Gastroesophageal Reflux Diseas e 40 mg, Oral, Once, Indications: Gastroesophageal Reflux Disease, Mon09/16/20 at 1100, For 1 dose [facility] Gastroesophageal Reflux Disease Medication administered onsite Fluoxetine 20 MG Oral Capsule FLUoxetine (PROzac) caps ule 40 mg FLUoxetine (PROzac) capsule 40 mg 09/16/2020 09:00:00 AM EDT 40 mg Oral active 40 mg, Oral, Daily, First dose on Mon09/16/20 at 0900, Post-op [facility] Medication administered onsite POLYETHYLENE GLYCOL 3350 142 MG/ML Oral Solution polyethylene glycol (GLYCOLAX) packet 17 g polyethylene glycol (GLYCOLAX) packet 17 g 09/16/2020 09:00:00 AM EDT 17 g Oral active 17 g, Or al, Daily, First dose on Mon09/16/20 at 0900, Post-op
Start POD #1
[facility] Medication administered onsite Clonidine Hydrochloride 0.1 MG Oral Tablet cloNIDine ( CATAPRES) tablet 0.1 mg cloNIDine (CATAPRES) tablet 0.1 mg 09/16/2020 02:00:00 AM EDT 0.1 mg Oral completed 0.1 mg, Oral, Once, Mon09/16/20 at 0200, For 1 dose [facility] Medication administered onsite Magnesium Hydroxide 80 MG/ML Oral Suspen marco a magnesium hydroxide (MILK OF MAGNESIA) 400 MG/5ML suspension 30 mL magnesium hydroxide (MILK OF MAGNESIA) 4 00 MG/5ML suspension 30 mL 09/16/2020 12:00:00 AM EDT 30 mL Oral active 30 mL, Oral, Daily PRN, constipation, Starting Mon09/16/20 at 0000, Post- op
Start Post-op day #1. Hold for BM
[facility] Medication administered onsite Bisacodyl 10 MG Rectal Suppository bisacodyl (DULCOLAX ) suppository 10 mg bisacodyl (DULCOLAX) suppository 10 mg 09/16/2020 12:00:00 AM EDT 10 mg Rectal active 10 mg, Rectal, Daily PRN, constipation, for constipation unrelieved by miralax/MOM, Starting Mon09/16/20 at 0000, For 4 days, Post- op
For post-op day #1, #3, and #4Hold for BM
[facility] Medication administered onsite varenicline 1 MG Oral Tablet varenicline (CHANTIX) tab let 1 mg varenicline (CHANTIX) tablet 1 mg 09/15/2020 09:00:00 PM EDT 1 mg Oral active 1 mg, Oral, 2 times daily, First dose on Mon09/15/20 at 2100, Post-op
Give with meals and with a full glass of water.
[facility] Medication administered onsite Mirtazapine 30 MG Oral Tablet mirtazapine (REMERON) ta blet 15 mg mirtazapine (REMERON) tablet 15 mg 09/15/2020 09:00:00 PM EDT 15 mg Oral active 15 mg, Oral, Nightly, First dose on Mon09/15/20 at 2100, Post-op [facility] Medication administered onsite Cefazolin 1000 [...] minutes. Use within 1 hour of reconstitution
[facility] Perioperative Pharmacoprophylaxis Medication administered onsite Docusate Sodium 50 MG / sennosides, SKILLED NURSING 8.6 MG Oral Tablet senna-docusate (PERICOLACE) 8.6-50 MG 2 tablet senna-docusate (PERICOLACE) 8.6-50 MG 2 tablet 09/15/2020 09:00:00 PM EDT 2 {tbl} Oral active 2 tablet, Oral, Nightly, First dose on Mon09/15/20 at 2100, Post-op
hold for loose stools
[facility] Medication administered onsite Oxycodone Hydrochloride 10 MG Oral Tablet Oxycodone HC l TABS 10 mg Oxycodone HCl TABS 10 mg 09/15/2020 06:05:30 PM EDT 10 mg Oral aborte d 10 mg, Oral, Every 4 hours PRN, severe pain (7-10), Starting Mon09/15/20 at 1805, For 163 hours, Post-op [facility] Medication administered onsite Cefazolin 1000 [...] minutes. Use within 1 hour of reconstitution
[facility] Perioperative Pharmacoprophylaxis Medication administered onsite gabapentin 300 MG Oral Capsule gabapentin (NEURONTIN) capsule 300 mg gabapentin (NEURONTIN) capsule 300 mg 09/15/2020 03:00:00 PM EDT 300 mg Oral active 300 mg, Oral, 3 times daily, First dose on Mon09/15/20 at 1500, Post-op [facility] Medication administered onsite Acetaminophen 500 MG Oral Tablet acetaminophen (TYLENO L) tablet 1,000 mg acetaminophen (TYLENOL) tablet 1,000 mg 09/15/2020 02:00:00 PM EDT 1000 mg Oral active 1,000 mg, Oral , Every 6 hours (relative), First dose on Mon09/15/20 at 1400, Post-op [facility] Medication administered onsite sodium chloride 0.9% (NS) infusion 4625-5687-30 09/15/2020 02:00:00 P M EDT Intravenous active at 100 mL/hr, Intravenous, Continuous, Starting Mon09/15/20 at 1400, Post-op [facility] Medication administered onsite 2 ML Metoclopramide 5 MG/ML Prefilled Sy ringe metoclopramide (REGLAN) injection 10 mg metoclopramide (REGLAN) injection 10 mg 09/15/2020 01:41:33 PM E DT 10 mg Intravenous completed 10 mg, I ntravenous, Every 6 hours PRN, nausea not relieved by Zofran, Starting Mon09/15/20 at 1341, For 24 hours, Post-op
If nausea not relieved by Zofran; Renal dosing per pharmacy
[facility] Medication administered onsite ondansetron (ZOFRAN) injection 4 mg [id number] 09/15/2020 01:41:3 3 PM EDT 4 mg Intravenous aborted 4 mg, In travenous, Every 4 hours PRN, nausea, vomiting, Starting Mon09/15/20 at 1341, Post-op
If unable to take PO
[facility] Medication administered onsite Mineral Oil 1000 MG/ML Enema mineral oil enema 1 enema mineral oil enema 1 enema 09/15/2020 01:41:33 PM EDT 1 {enema} Rectal active 1 enema, Rectal, Daily PRN, constipation, if unrelieved by dulcolax, Starting Mon09/15/20 at 1341, Post-op
hold for loose stools
[facility] Medication administered onsite Ondansetron 4 MG Disintegrating Oral Tab let ondansetron (ZOFRAN-ODT) disintegrating tablet 4 mg ondansetron (ZOFRAN-ODT) disintegrating tablet 4 mg 09/15/2020 01:41:33 PM EDT 4 mg Oral active 4 mg, Oral, Every 4 hours PRN, nausea, vomiting, Starting Mon09/15/20 at 1341, Post-op [facility] Medication administered onsite Oxycodone Hydrochloride 5 MG Oral Tablet oxyCODONE (ROXICODONE) immediate release tablet 5 mg oxyCODONE (ROXICODONE) immediate release tablet 5 mg 09/15/2020 01:41:33 PM EDT 5 mg Oral aborted 5 mg, Oral, Every 4 hours PRN, severe pain (7-10), Starting Mon09/15/20 at 1341, For 7 days, Post-op [facility] Medication administered onsite fentaNYL Citrate (PF) (SUBLIMAZE) injection 25 mcg [id number] 09/15/2020 01:41:33 PM EDT 25 ug Intravenous active 25 mcg, Intravenous, Every 3 hours PRN, for severe breakthrough pain (7-10) if oral opioid ineffective, Starting Mon09/15/20 at 1341, For 7 days, Post-op [facility] Medication administered onsite Methocarbamol 500 MG Oral Tablet methocarbamol (ROBAXI N) tablet 500 mg methocarbamol (ROBAXIN) tablet 500 mg 09/15/2020 01:41:33 PM EDT 50 0 mg Oral active 500 mg, Oral, 4 times daily PRN, muscle spasms, Starting Mon09/15/20 at 1341, Post-op [facility] Medication administered onsite Insulin Glargine [...] than 70 mg/dl Nursing to initiate hypoglycemia to 100 mg/dl Pharmacy to decrease total daily d ose by 20%101 to 200 mg/dl No Change
[facility] Medication administered onsite Insulin Lispro [...] <50%Eats Nothing (mg/dl) of meal of mealor [id number] units 2 units 0 ilbiv408- 1706 units 3 units 0 ebnay534-4131 units 4 units 1 muvby616- 2708 units 5 units 2 patsx314-4860 units 6 units 3 uujxm748- 70851 units 7 units 4 -16370 units 8 units 5 units>420 call MD12 units 9 units 6 unitsTest glucose within 30 minutes of insulin administration.Administer insulin within 15 minutes (before or after) of the patient starting to eat.For patients that are NPO, use theNPO (correction) scale to cover POC glucose at 08:00, 12:00, 17:00.
[facility] Medication administered onsite fentaNYL Citrate (PF) (SUBLIMAZE) injection 25 mcg [id number] 09/15/2020 11:16:33 AM EDT 25 ug Intravenous aborted 25 mcg, Intravenous, Every 5 min PRN, moderate pain (4-6), Starting Mon09/15/20 at 1116, For 12 doses, PACU (only) [facility] Medication administered onsite HYDROmorphone (DILAUDID) injection 0.5 mg [id number] 09/15/2020 11:16:33 AM EDT 0.5 mg Intravenous aborted 0.5 mg, Intravenous, Every 5 min PRN, severe pain (7-10), Starting Mon09/15/20 at 1116, For 5 doses, PACU (only) [facility] Medication administered onsite Glucose 254 MG/ML Oral Solution [Dex4] glucose (DEX4) liquid 15 g glucose (DEX4) liquid 15 g 09/15/2020 06:20:59 AM EDT 15 g Oral compl eted 15 g, Oral, As needed, low blood sugar, Starting Mon09/15/20 at 0620, For 2 doses, Pre-op
Per policy glucose under 70
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
To be administered just prior to to transport to operating room
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
Swish for 30 seconds and spit in pre-induction unit
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
To be administered just prior to to transport to operating room
[facility] Chronic low back pain, unspecified back pain laterality, unspecified whether sciatica present Spondylolisthesis of lumbosacral region Herniated nucleus pulposus, L5-S1 Medication administered onsite ondansetron (ZOFRAN) injection 4 mg [id number] 09/15/2020 06:00:0 0 AM EDT 4 mg Intravenous completed Chronic low nikki k pain, unspecified back pain laterality, unspecified whether sciatica presentSpondylolisthesis of lumbosacral regionHerniated nucleus pulposus, L5-S1 4 mg, Intrave nous, call center recruiter, Mon09/15/20 at 0600, For 1 dose, Pre-op
To be administered just prior to to transport to operating room
[facility] Chronic low back pain, unspecified [...] ravenous, Continuous, Starting Mon09/15/20 at 0600, Pre-op [facility] Medication administered onsite 1 mg 07/16/2020 12:00:00 AM EDT tablet 56 TAKE ONE TABLET BY MOUTH TWICE A DAY TAKE ONE TABLET BY MOUTH TWICE A DAY SOLD: 07/16/2020 [facility] 100 unit/mL (3 mL) 07/01/2020 [...] 03/16/2020 12:00:00 AM EDT active [facility] ([facility] 100 unit/mL (3 mL) 03/04/2020 12:00:00 AM EDT insulin pen 15 INJECT 25 UNITS SUBCUTANEOUSLY TWO TIMES A DAY MAXIMUM DAILY DOSE = 50 UNITS INJECT 25 UNITS SUBCUTANEOUSLY TWO TIMES A DAY MAXIMUM DAILY DOSE = 50 UNITS SOLD: 03/04/2020 [facility] 1 mg 02/28/2020 12:00:00 AM EDT [...] Lidocaine 12/24/2019 12:00:00 AM EST active [facility] ([facility]) Menthol 0.04 MG/MG Topical Gel [Biofreeze] Biofreeze 12/24 12:00:00 AM EST active [facility] ( [facility]) Acetaminophen 325 MG / Hydrocodone Bitartrate 5 MG Oral Tabl et Anexsia 12/24/2019 12:00:00 AM EST active [facility] ([facility]) 4 % 12/24/2019 12:00:00 AM EST cream [...] Seen+++ 11/22/2019 12:00:00 AM EST completed [facility] ([facility]) 1 mg 11/22/2019 12:00:00 AM EST tablet 60 TAKE ONE TABLET BY MOUTH TWICE A DAY TAKE ONE TABLET BY MOUTH TWICE A DAY SOLD: 11/23/2019 [facility] 1 mg 11/22/2019 12:00:00 AM EST tablet 60 TAKE ONE TABLET BY MOUTH TWICE A DAY TAKE ONE TABLET BY MOUTH TWICE A DAY SOLD: 12/30/2019 [facility] varenicline 1 MG Oral Tablet [Chantix] Chantix 11/21/2019 12:00:00 AM EST ORAL active [facility] ([facility] varenicline 0.5 MG Oral Tablet [Chantix] Chantix 10/22/2019 12:00: 00 AM EST completed [facility] ([facility] 0.5 mg (11)- 1 mg (42) 10/22/2019 12:00:00 AM EST tablets,do se pack 53 TAKE DIRECTED FOR 4 WEEKS TAKE DIRECTED FOR 4 WEEKS SOLD: 10/22/2019 [facility] 100 unit/mL (3 mL) 10/16/2019 12:00:00 AM EST insulin pen 15 INJECT 15 UNITS IN THE MORNING AND AT BEDTIME DAILY INJECT 15 UNITS IN THE MORNING AND AT BEDTIME DAILY SOLD: 10/19/2019 [facility] BLOOD SUGAR DIAGNOSTIC 10/16/2019 12:00:00 AM EST strip 600 USE DIRECTED UP TO 6 TIMES DAILY USE DIRECTED UP TO 6 TIMES DAILY SOLD: 10/19/2019 [facility] BLOOD SUGAR DIAGNOSTIC 10/16/2019 12:00:00 AM EST strip 600 USE DIRECTED UP TO 6 TIMES DAILY USE DIRECTED UP TO 6 TIMES DAILY SOLD: 01/15/2020 [facility] 40 mg 09/06/2019 12:00:00 AM EDT capsule 30 TAKE ONE CAPSULE BY MOUTH EVERY DAY TAKE ONE CAPSULE BY MOUTH EVERY DAY SOLD: 10/19/2019 [facility] Fluoxetine 40 MG Oral Capsule [Prozac] Prozac [...] 15 MG Oral Tablet ALIYAH ([facility]) meloxicam 15 MG Oral Tablet meloxicam (MOBIC) 15 MG ta blet meloxicam (MOBIC) 15 MG tablet 15 mg Oral aborted Take 15 mg by mouth daily [facility] Acetaminophen 500 MG Oral Tablet acetaminophen (TYLENO L) 500 MG tablet acetaminophen (TYLENOL) 500 MG tablet 1000 mg Oral aborted Take 1,000 mg by mouth every 6 (six) hours as needed for pain [facility] Insurance Providers Payer name Policy type / Coverage type Policy ID Covered libertarian ID Covered libertarian's relationship to jose Policy Jose Plan Information [facility] COMM[facility]ITY PLAN MCDHMO [id number] SP [id number] [place] H [id number] Self [id number] HEA [id number] MEDICAID GME [id number] S [id number] [facility](MCAID) O [id number] S [id number] [facility] HEA [id number] S [id number] [facility] Comm Plan Medicaid F [id number] SELF [id number] [facility] HEA [id number] S [id number] UHC Comm Plan Medicaid F [id number] SELF [id number] [facility] MEDICAID [id number] [facility] MEDICAID [id number] Jaycee [id number] INSURANCE COVID-19 COVID Jaycee C OVID INSURANCE COVID-19 [id number] [employer] Community Plan Commercial [id number] Self [id number] [employer] Community Plan Commercial [id number] Self [id number] [employer] Community Plan Commercial [id number] Self [id number] [employer] Community Plan Commercial [id number] Self [id number] [employer] Community Plan Commercial [id number] Self [id number] [employer] Community Plan Commercial [id number] Self [id number] [facility] MEDICAID PI PI [employer] Community Plan Commercial [id number] Self [id number] [employer] Community Plan Commercial [id number] Self [id number] [employer] Community Plan Commercial [id number] Self [id number] [employer] Community Plan Commercial [id number] Self [id number] UHC Comm Plan Medicaid F [id number] SELF [id number] [employer] Community Plan Commercial [id number] Self [id number] [employer] Community Plan Commercial [id number] Self [id number] [employer] Community Plan Commercial [id number] Self [id number] [employer] Community Plan Commercial [id number] Self [id number] [employer] COMMUNITY PLAN MCDHMO [id number] SP [id number] [facility] [employer] (HMO) [id number] Self [id number] [facility] [employer] (HMO) [id number] Self [id number] HMO BLUE [id number] SP [id number] Problems, Conditions, and Diagnoses Code Display Name Description Problem Type Effective Dates Data Source(s) E11.9 Diabetes mellitus Diabetes mellitus [id number] 09/15/2020 12:00:00 AM EDT [facility] M43.17 Spondylolisthesis of lumbosacral region Spondylolisthesis of lumbosacral region [id number] 09/15/2020 12:00:00 AM EDT [facility] M51.27 Herniated nucleus pulposus, L5-S1 Herniated nucl eus pulposus, L5-S1 [id number] 09/15/2020 12:00:[address] [facility] M54.5 Low back pain Low back pain [id number] 09/07/2020 12:00:00 AM EDT [facility] [id number] Type 2 diabetes mellitus Type 2 diabetes mellitus Prob jim 01/02/2020 12:00:00 AM EST [facility] ([facility]) G89.29 Other chronic pain Other chronic pain Diagnosis 05:24:00 AM EDT [facility] M54.5 Low back pain Low back pain Diagnosis 09/15/2020 05:24:00 AM EDT [facility] M43.17 Spondylolisthesis, lumbosacral region Sp ondylolisthesis, lumbosacral region Diagnosis 09/15/2020 05:24:00 AM EDT [facility] 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, lumbosacral region Other intervertebral disc displacement, Diagnosis 09/15/2020 05:24:00 AM EDT [facility] U07.1 COVID-19 COVID-19 Diagnosis 09/10/2020 11:13:22 AM ED T [facility] Surgeries/Procedures Procedure Description Date Indications Data Source(s) AUTOGRAFT SPINE SURGERY BICORT/TRICORT [employer]P [employer] 020 12:00:00 AM EST [facility] ([facility]) Osteotomy Spine Posterior Or Posterolateral 3 Col, Lumbar 11/06/2020 12:00:00 AM EST [facility]) Arthrodesis,Combined Posterior Or Posterolateral Tech 11/06/2020 12:00:00 AM EST [facility]) ARTHDSIS POST/POSTERLATRL/POSTINTRBDYADL SPC/SEG 11/06 12:00:00 AM EST [facility] ([facility]) Spinal Instrumentation Posterior Segmental, 3-6 Segments 11/06/2020 12:00:00 AM EST [facility]) PELVIC FIXATION OTHER THAN SACRUM 11/06/2020 12:00:00 AM EST [facility] ([facility]) Insertion Interbody Biomechanical Device; Each Interspace 11/06/2020 12:00:00 AM EST [facility]) GLUC BLD GLUC MNTR DEV CLEARED FDA SPEC HOME USE POCT GLUCOSE Routine 09/17/2020 9:42 AM EDT 09/17/2020 01:42:00 PM EDT [facility] GLUC BLD GLUC MNTR DEV CLEARED FDA SPEC HOME USE POCT GLUCOSE Routine 09/16/2020 5:28 PM EDT 09/16/2020 09:28:00 PM EDT [facility] GLUC BLD GLUC MNTR DEV CLEARED FDA SPEC HOME USE POCT GLUCOSE Routine 09/16/2020 2:22 PM EDT 09/16/2020 06:22:00 PM EDT [facility] GLUC BLD GLUC MNTR DEV CLEARED FDA SPEC HOME USE POCT GLUCOSE Routine 09/16/2020 9:39 AM EDT 09/16/2020 01:39:00 PM EDT [facility] BLOOD COUNT HEMATOCRIT HEMATOCRIT Routine 09/16/2020 4:44 AM EDT 09/16/2020 08:44:[address] [facility] BASIC METABOLIC PANEL CALCIUM TOTAL BASIC METABOLIC PANEL Routi ne 09/16/2020 4:44 AM EDT 09/16/2020 08:44:00 AM EDT [facility] GLUC BLD GLUC MNTR DEV CLEARED FDA SPEC HOME USE POCT GLUCOSE Routine 09/16/2020 1:09 AM EDT 09/16/2020 05:09:00 AM EDT [facility] GLUC BLD GLUC MNTR DEV CLEARED FDA SPEC HOME USE POCT GLUCOSE Routine 09/15/2020 6:28 PM EDT 09/15/2020 10:28:00 PM EDT [facility] GLUC BLD GLUC MNTR DEV CLEARED FDA SPEC HOME USE POCT GLUCOSE Routine 09/15/2020 4:09 PM EDT 09/15/2020 08:09:00 PM EDT [facility] FLUOROSCOPY SPX <1 HOUR PHYSICIAN TIME XR OR SPINE LUMBAR VINICIO NUATION STAT 09/15/2020 12:44 PM EDT 09/15/2020 04:44:42 PM EDT [facility] GLUC BLD GLUC MNTR DEV CLEARED FDA SPEC HOME USE POCT GLUCOSE Routine 09/15/2020 12:34 PM EDT 09/15/2020 04:34:00 PM EDT [facility] GLUC BLD GLUC MNTR DEV CLEARED FDA SPEC HOME USE POCT GLUCOSE Routine 09/15/2020 11:26 AM EDT 09/15/2020 03:26:00 PM EDT [facility] GLUC BLD GLUC MNTR DEV CLEARED FDA SPEC HOME USE POCT GLUCOSE Routine 09/15/2020 10:13 AM EDT 09/15/2020 02:13:00 PM EDT [facility] GLUC BLD GLUC MNTR DEV CLEARED FDA SPEC HOME USE POCT GLUCOSE Routine 09/15/2020 9:12 AM EDT 09/15/2020 01:12:00 PM EDT [facility] XR OR SPINE LUMBAR XR OR SPINE LUMBAR STAT 09/15/2020 9:07 AM E DT 09/15/2020 01:07:11 PM EDT [facility] [place] RADEX SPINE 1 VIEW SPECIFY LEVEL XR OR SPINE LUMBAR CONTINUATIO N STAT 09/15/2020 8:47 AM EDT 09/15/2020 12:47:42 PM EDT [facility] GLUC BLD GLUC MNTR DEV CLEARED FDA SPEC HOME USE POCT GLUCOSE Routine 09/15/2020 7:59 AM EDT 09/15/2020 11:59:00 AM EDT [facility] ARTHRODESIS POSTERIOR INTERBODY LUMBAR LAMINECTOMY, S PINE, THORACOLUMBAR, 1 LEVEL, WITH DECOMPRESSION AND FUSION 09/15/2020 7:24 AM EDT Herniated nucleus pulposus, L5-S1 Spondylolisthesis, lumbosacral region Low back pain 09/15/2020 11:24:00 AM EDT - 09/15/2020 03:51:00 PM EDT Low back painSpondylolisthesis, lumbosacral regionHerniated nucleus pulposus, L5-S1 [facility] Low back pain Spondylolisthesis, lumbosacral region Herniated nucleus pulposus, L5-S1 GLUC BLD GLUC MNTR DEV CLEARED FDA SPEC HOME USE POCT GLUCOSE Routine 09/15/2020 6:48 AM EDT 09/15/2020 10:48:00 AM EDT [facility] GLUC BLD GLUC MNTR DEV CLEARED FDA SPEC HOME USE POCT GLUCOSE Routine 09/15/2020 6:33 AM EDT 09/15/2020 10:33:00 AM EDT [facility] GLUC BLD GLUC MNTR DEV CLEARED FDA SPEC HOME USE POCT GLUCOSE Routine 09/15/2020 6:16 AM EDT 09/15/2020 10:16:00 AM EDT [facility] POCT I-STAT BETA HCG POCT I-STAT BETA HCG Routine 09/15/2020 6:13 AM EDT 09/15/2020 10:13:[address] [facility] GLUC BLD GLUC MNTR DEV CLEARED FDA SPEC HOME USE POCT GLUCOSE Routine 09/15/2020 6:03 AM EDT 09/15/2020 10:03:00 AM EDT [facility] GLUC BLD GLUC MNTR DEV CLEARED FDA SPEC HOME USE POCT GLUCOSE Routine 09/15/2020 5:44 AM EDT 09/15/2020 09:44:00 AM EDT [facility] ECG ROUTINE ECG W/LEAST 12 LDS TRCG ONLY W/O I&R ECG 12-LEAD Routine 09/07/2020 3:01 PM EDT Chronic low back pain, unspecified back pain laterality, unspecified whether sciatica present Herniated nucleus pulposus, L5-S1 Spondylolisthesis, lumbosacral region 09/07/2020 07:01:06 PM EDT Spondylolisthesis, lumbosacral regionHerniated nucleus pulposus, L5-[id number] low back pain, unspecified back pain laterality, unspecified whether sciatica present [facility] Spondylolisthesis, lumbosacral region Herniated nucleus pulposus, L5-S1 Chronic low back pain, unspecified back pain laterality, unspecified whether sciatica present THROMBOPLASTIN TIME PARTIAL PLASMA/WHOLE BLOOD APTT Routine 09/07/2020 2:50 PM EDT Chronic low back pain, unspecified back pain laterality, unspecified whether sciatica present Herniated nucleus pulposus, L5-S1 Spondylolisthesis, lumbosacral region 09/07/2020 06:50:00 PM EDT Spondylolisthesis, lumbosacral regionHerniated nucleus pulposus, L5-G8Hgfqlfe low back pain, unspecified back pain laterality, unspecified whether sciatica present [facility] Spondylolisthesis, lumbosacral region Herniated nucleus pulposus, L5-S1 Chronic low back pain, unspecified back pain laterality, unspecified whether sciatica present PROTHROMBIN TIME PROTIME-INR Routine 09/07/2020 2:50 PM EDT Chronic low back pain, unspecified back pain laterality, unspecified whether sciatica present Herniated nucleus pulposus, L5-S1 Spondylolisthesis, lumbosacral region 09/07/2020 06:50:00 PM EDT Spondylolisthesis, lumbosacral regionHerniated nucleus pulposus, L5-W3Crfypkv low back pain, unspecified back pain laterality, unspecified whether sciatica present [facility] Spondylolisthesis, lumbosacral region Herniated nucleus pulposus, L5-S1 Chronic low back pain, unspecified back pain laterality, unspecified whether sciatica present BLOOD COUNT COMPLETE AUTOMATED CBC Routine 0 2:50 PM EDT Chronic low back pain, unspecified back pain laterality, unspecified whether sciatica present Herniated nucleus pulposus, L5-S1 Spondylolisthesis, lumbosacral region 09/07/2020 06:50:00 PM EDT Spondylolisthesis, lumbosacral regionHerniated nucleus pulposus, L5-D2Ojerzwl low back pain, unspecified back pain laterality, unspecified whether sciatica present [facility] Spondylolisthesis, lumbosacral region Herniated nucleus pulposus, L5-S1 Chronic low back pain, unspecified back pain laterality, unspecified whether sciatica present BLOOD TYPING ABO TYPE AND SCREEN Routine 09/07/2020 2:50 PM EDT Chronic low back pain, unspecified back pain laterality, unspecified whether sciatica present Herniated nucleus pulposus, L5-S1 Spondylolisthesis, lumbosacral region 09/07/2020 06:50:00 PM EDT Spondylolisthesis, lumbosacral regionHerniated nucleus pulposus, L5-D7Ykwmosg low back pain, unspecified back pain laterality, unspecified whether sciatica present [facility] Spondylolisthesis, lumbosacral region Herniated nucleus pulposus, L5-S1 Chronic low back pain, unspecified back pain laterality, unspecified whether sciatica present HEMOGLOBIN GLYCOSYLATED A1C HEMOGLOBIN A1C Routine 09/07/2020 2:50 PM EDT Chronic low back pain, unspecified back pain laterality, unspecified whether sciatica present Herniated nucleus pulposus, L5-S1 Spondylolisthesis, lumbosacral region 09/07/2020 06:50:00 PM EDT Spondylolisthesis, lumbosacral regionHerniated nucleus pulposus, L5-S6Mmrhxzm low back pain, unspecified back pain laterality, unspecified whether sciatica present [facility] Spondylolisthesis, lumbosacral region Herniated nucleus pulposus, L5-S1 Chronic low back pain, unspecified back pain laterality, unspecified whether sciatica present COMPREHENSIVE METABOLIC PANEL COMPREHENSIVE METABOLIC PANEL Rou baltazar 09/07/2020 2:50 PM EDT Chronic low back pain, unspecified back pain laterality, unspecified whether sciatica present Herniated nucleus pulposus, L5-S1 Spondylolisthesis, lumbosacral region 09/07/2020 06:50:00 PM EDT Spondylolisthesis, lumbosacral regionHerniated nucleus pulposus, L5-Y8Wptbufd low back pain, unspecified back pain laterality, unspecified whether sciatica present [facility] Spondylolisthesis, lumbosacral region Herniated nucleus [...] PM EDT Spondylolisthesis, lumbosacral regionHerniated nucleus pulposus, L5-P1Rlaords low back pain, unspecified back pain laterality, unspecified whether sciatica present [facility] Spondylolisthesis, lumbosacral region Herniated nucleus pulposus, L5-S1 Chronic low back pain, unspecified back pain laterality, unspecified whether sciatica present ECG ROUTINE ECG W/LEAST 12 LDS W/I&R 09/02/2020 12:00: 00 AM EDT [facility] ([facility] Diabetic Foot Exam 06/29/2020 12:00:00 AM EDT [facility] ([facility] Amb Glucose Monitoring Interpretation And Report 06/29 12:00:00 AM EDT [facility] ([facility] ) Results ID Date Data Source [id number] 12/08/2020 12:53:00 AM EST [facility] [place] [address]PATIENT NAME: GERALD MESA OF : 1975REPORT: DISCHARGE SUMMARYPATIENT NUMBER: [id number] STATUS: IPMEDICAL RECORD NUMBER: [id number] OF ADMISSION: 11/06/2020DATE OF DISCHARGE: 1ROOM: 01ATTENDING PHYSICIAN/DISCHARGING PHYSICIAN: FELICITA LyonsISCHARGE DIAGNOSES:1. Lumbar spine, L5-S1 implant failure, infected wound.2. COVID-19 positive, recovered, asymptomatic.3. Diabetes mellitus type 2.4. Anxiety.5. Constipation.For details of history of present illness as well as for the details ofinitial physical exam and initial diagnostic studies, please refer tohistory and physical. Also please refer to the interim discharge summariesof 11/01/2020, 11/20/2020, and 11/27/2020.Briefly, a 45-year-old female with above-listed medical problems, pastmedical history also including diabetes mellitus type 1, presented to theOrthopedic Service for spinal fusion with instrumentation, which wasperformed on 11/06/2020. The patient was found to be COVID positive ontesting during the hospital stay on 11/11/2020. On 11/12/2020, she wastransferred to the Hospitalist Service. The patient's hospital course wascomplicated by wound infection. Wound VAC dressing was removed byOrthopedic Service on 11/23/2020 because of accumulation of 325 output fromthe incision site. Drainage of the incision site was performed by on 11/24/2020. Wound VAC was reinserted. The patient was consultedby Infectious Diseases. Initial treatment with vancomycin was discontinuedand the patient was started on Zosyn. As her microbiology results werefollowing, the patient was growing E. coli, ceftriaxone sensitive, she wasswitched to ceftriaxone 2 g IV q.24 hours, starting 11/24/2020 phditap3501/04/2021. I took over the patient's care on 11/28/2020. Her mainconcern was uncontrolled pain in lumbar spine area. The patient's painmedication regimen was adjusted with switching to long-acting morphine,morphine ER 60 mg b.i.d. with oral liquid morphine for breakthrough pain.IV morphine was discontinued. The patient was discharged in stablecondition with followup by Dr. Gordon, Orthopedic Surgery, Dr. Cox, primary provider. Please refer to discharge instructions for diagnostic studies and other recommendations on discharge.DICTATED BY: FELICITA Lyonsictated: 12/05/2020 20:43DT: 12/05/2020 20:54Job #: [id number]: MD Mary Mcguire MDNOTE: [facility] computer generated reports are notconfirmed or authenticated unless they are signed by the providerElectronically Authenticated and Edited by:Janneth Duron MD On 12/08/2020 12:53 AM EST Name Value Range Interpretation Code Description Data Tere rce(s) Supporting Document(s) ID Date Data Source [id number] 12/03/2020 12:05:29 PM EST [facility] Name Value Range Interpretation Code Description Data Tere leonardo(s) Supporting Document(s) POC GLUCOSE 152 mg/dL (70-99) H [facility] PERFORMED BY CLINICAL STAFF ID Date Data Source [id number] 12/03/2020 07:34:49 AM EST [facility] Name Value Range Interpretation Code Description Data Tere leonardo(s) Supporting Document(s) POC GLUCOSE 251 mg/dL (70-99) H [facility] PERFORMED BY CLINICAL STAFF ID Date Data Source [id number] 12/03/2020 06:38:08 AM EST [facility] Name Value Range Interpretation Code Description Data Tere rce(s) Supporting Document(s) SODIUM 135 mmol/L (136-145) L [facility] POTASSIUM 4.7 mmol/L (3.6-5.2) [facility] CHLORIDE 97 mmol/L (100-108) L [facility] CO2 30 mmol/L (22-31) [facility] ANION GAP 8 mmol/L (7-16) [facility] UREA NITROGEN 14 mg/dL (7-24) [facility] CREATININE 0.57 mg/dL (0.60-1.00) L [facility] BUN/CREAT RATIO 24.6 RATIO (10.0-20.0) [facility] GLUCOSE 189 mg/dL (70-99) H [facility] CALCIUM 8.4 mg/dL (8.4-10.2) [facility] GFR >60 ml/min/1.73m2 (>59) [facility] GFR ( AMER) >60 ml/min/1.73m2 (>59) [facility] GFR INTERPRETATION [facility] --NORMAL KIDNEY FUNCTION OR MILD DISEASE - GFR >OR= 60CHRONIC KIDNEY DISEASE - GFR 15 - 59RENAL FAILURE - GFR <15 Est. GFR calculation based on the MDRDstudy equation, which assumes a steadystate for creatinine. Est. GFR should notbe used for medication dosing. ID Date Data Source [id number] 12/03/2020 06:12:13 AM EST [facility] Name Value Range Interpretation Code Description Data Tere rce(s) Supporting Document(s) WBC 13.3 10*3/uL (4.1-11.0) H [facility] RBC 2.60 10*6/uL (4.00-5.40) L [facility] HGB 7.6 g/dL (12.0-16.0) [facility] HCT 23.4 % (36.0-47.0) [facility] MCV 90.1 fL (80.0-95.0) [facility] MCH 29.0 pg (27.0-32.0) [facility] MCHC 32.2 g/dL (32.0-36.0) [facility] RDW 23.0 % (10.5-14.5) [facility] PLT 357 10*3/uL (150-450) [facility] MPV 8.3 fL (7.1-10.7) [facility] ID Date Data Source [id number] 12/03/2020 02:20:57 AM EST [facility] Name Value Range Interpretation Code Description Data Tere rce(s) Supporting Document(s) POC GLUCOSE 167 mg/dL (70-99) [facility] PERFORMED BY CLINICAL STAFF ID Date Data Source [id number] 12/02/2020 10:37:03 PM EST [facility] Name Value Range Interpretation Code Description Data Tere rce(s) Supporting Document(s) POC GLUCOSE 225 mg/dL (70-99) [facility] NOTIFIED NURSEPERFORMED BY CLINICAL S TAFF ID Date Data Source [id number] 12/02/2020 09:03:29 PM EST [facility] Name Value Range Interpretation Code Description Data Tere rce(s) Supporting Document(s) POC GLUCOSE 199 mg/dL (70-99) [facility] NOTIFIED NURSEPERFORMED BY CLINICAL S TAFF ID Date Data Source [id number] 12/02/2020 07:52:00 PM EST [facility] Name Value Range Interpretation Code Description Data Tere rce(s) Supporting Document(s) POC GLUCOSE 125 mg/dL (70-99) [facility] PERFORMED BY CLINICAL STAFF ID Date Data Source [id number] 12/02/2020 06:54:01 PM EST [facility] Name Value Range Interpretation Code Description Data Tere rce(s) Supporting Document(s) POC GLUCOSE 82 mg/dL (70-99) [facility] PERFORMED BY CLINICAL STAFF ID Date Data Source [id number] 12/02/2020 06:28:20 PM EST [facility] Name Value Range Interpretation Code Description Data Tere rce(s) Supporting Document(s) POC GLUCOSE 62 mg/dL (70-99) L [facility] PERFORMED BY CLINICAL STAFF ID Date Data Source [id number] 12/02/2020 06:05:59 PM EST [facility] Name Value Range Interpretation Code Description Data Tere rce(s) Supporting Document(s) POC GLUCOSE 53 mg/dL (70-99) L [facility] PERFORMED BY CLINICAL STAFF ID Date Data Source [id number] 12/02/2020 12:34:07 PM EST [facility] Name Value Range Interpretation Code Description Data Tere rce(s) Supporting Document(s) POC GLUCOSE 150 mg/dL (70-99) [facility] NOTIFIED NURSEPERFORMED BY CLINICAL S TAFF ID Date Data Source [id number] 12/02/2020 09:40:13 AM EST [facility] Name Value Range Interpretation Code Description Data Tere rce(s) Supporting Document(s) POC GLUCOSE 229 mg/dL (70-99) [facility] PERFORMED BY CLINICAL STAFF ID Date Data Source [id number] 12/02/2020 06:35:20 AM EST [facility] Name Value Range Interpretation Code Description Data Tere rce(s) Supporting Document(s) WBC 16.6 10*3/uL (4.1-11.0) H [facility] RBC 2.89 10*6/uL (4.00-5.40) L [facility] HGB 8.1 g/dL (12.0-16.0) L [facility] HCT 26.1 % (36.0-47.0) L [facility] MCV 90.1 fL (80.0-95.0) [facility] MCH 27.9 pg (27.0-32.0) [facility] MCHC 31.0 g/dL (32.0-36.0) L [facility] RDW 21.8 % (10.5-14.5) [facility] PLT 401 10*3/uL (150-450) [facility] MPV 8.4 fL (7.1-10.7) [facility] ID Date Data Source [id number] 12/02/2020 02:58:06 AM EST [facility] Name Value Range Interpretation Code Description Data Tere rce(s) Supporting Document(s) POC GLUCOSE 168 mg/dL (70-99) H [facility] PERFORMED BY CLINICAL STAFF ID Date Data Source [id number] 12/01/2020 09:10:37 PM EST [facility] Name Value Range Interpretation Code Description Data Tere rce(s) Supporting Document(s) POC GLUCOSE 196 mg/dL (70-99) [facility] NOTIFIED NURSEPERFORMED BY CLINICAL S TAFF ID Date Data Source [id number] 12/01/2020 08:13:36 PM EST [facility] Name Value Range Interpretation Code Description Data Tere rce(s) Supporting Document(s) POC GLUCOSE 192 mg/dL (70-99) H [facility] PERFORMED BY CLINICAL STAFF ID Date Data Source [id number] 12/01/2020 06:54:28 PM EST [facility] Name Value Range Interpretation Code Description Data Tere rce(s) Supporting Document(s) POC GLUCOSE 109 mg/dL (70-99) [facility] PERFORMED BY CLINICAL STAFF ID Date Data Source [id number] 12/01/2020 05:51:02 PM EST [facility] Name Value Range Interpretation Code Description Data Tere rce(s) Supporting Document(s) POC GLUCOSE 81 mg/dL (70-99) [facility] PERFORMED BY CLINICAL STAFF ID Date Data Source [id number] 12/01/2020 05:27:42 PM EST [facility] Name Value Range Interpretation Code Description Data Tere rce(s) Supporting Document(s) POC GLUCOSE 69 mg/dL (70-99) L [facility] PERFORMED BY CLINICAL STAFF ID Date Data Source [id number] 12/01/2020 04:54:36 PM EST [facility] Name Value Range Interpretation Code Description Data Tere rce(s) Supporting Document(s) POC GLUCOSE 65 mg/dL (70-99) L [facility] PERFORMED BY CLINICAL STAFF ID Date Data Source [id number] 12/01/2020 12:17:36 PM EST [facility] Name Value Range Interpretation Code Description Data Tere rce(s) Supporting Document(s) POC GLUCOSE 196 mg/dL (70-99) H [facility] NOTIFIED NURSEPERFORMED BY CLINICAL S TAFF ID Date Data Source [id number] 12/01/2020 12:08:05 PM EST [facility] Name Value Range Interpretation Code Description Data Tere rce(s) Supporting Document(s) STOOL OCCULT BLOOD (NEG) [facility] ID Date Data Source [id number] 12/01/2020 08:17:17 AM EST [facility] Name Value Range Interpretation Code Description Data Tere rce(s) Supporting Document(s) POC GLUCOSE 360 mg/dL (70-99) H [facility] PERFORMED BY CLINICAL STAFF ID Date Data Source [id number] 12/01/2020 03:01:27 AM EST [facility] Name Value Range Interpretation Code Description Data Tere rce(s) Supporting Document(s) POC GLUCOSE 241 mg/dL (70-99) H [facility] NOTIFIED NURSEPERFORMED BY CLINICAL S TAFF ID Date Data Source [id number] 12/01/2020 02:52:46 AM EST [facility] Name Value Range Interpretation Code Description Data Tere rce(s) Supporting Document(s) POC GLUCOSE 97 mg/dL (70-99) [facility] PERFORMED BY CLINICAL STAFF ID Date Data Source [id number] 11/30/2020 05:47:50 PM EST [facility] Name Value Range Interpretation Code Description Data Tere rce(s) Supporting Document(s) POC GLUCOSE 146 mg/dL (70-99) H [facility] PERFORMED BY CLINICAL STAFF ID Date Data Source [id number] 11/30/2020 01:08:23 PM EST [facility] Name Value Range Interpretation Code Description Data Tere rce(s) Supporting Document(s) POC GLUCOSE 124 mg/dL (70-99) H [facility] NOTIFIED PROVIDERPERFORMED BY CLINICA L STAFF ID Date Data Source [id number] 11/30/2020 09:00:39 AM EST [facility] Name Value Range Interpretation Code Description Data Tere rce(s) Supporting Document(s) POC GLUCOSE 261 mg/dL (70-99) H [facility] PERFORMED BY CLINICAL STAFF ID Date Data Source [id number] 11/30/2020 06:49:24 AM EST [facility] Name Value Range Interpretation Code Description Data Tere rce(s) Supporting Document(s) SODIUM 138 mmol/L (136-145) [facility] POTASSIUM 4.7 mmol/L (3.6-5.2) [facility] CHLORIDE 101 mmol/L (100-108) [facility] CO2 30 mmol/L (22-31) [facility] ANION GAP 7 mmol/L (7-16) [facility] UREA NITROGEN 5 mg/dL (7-24) L [facility] CREATININE 0.52 mg/dL (0.60-1.00) L [facility] BUN/CREAT RATIO 9.6 RATIO (10.0-20.0) L [facility] GLUCOSE 245 mg/dL (70-99) H [facility] CALCIUM 7.9 mg/dL (8.4-10.2) L [facility] GFR >60 ml/min/1.73m2 (>59) [facility] GFR ( AMER) >60 ml/min/1.73m2 (>59) [facility] GFR INTERPRETATION [facility] [place] --NORMAL KIDNEY FUNCTION OR MILD DISEASE - GFR >OR= 60CHRONIC KIDNEY DISEASE - GFR 15 - 59RENAL FAILURE - GFR <15 Est. GFR calculation based on the MDRDstudy equation, which assumes a steadystate for creatinine. Est. GFR should notbe used for medication dosing. ID Date Data Source [id number] 11/30/2020 06:26:41 AM EST [facility] Name Value Range Interpretation Code Description Data Tere rce(s) Supporting Document(s) WBC 9.0 10*3/uL (4.1-11.0) [facility] [place] RBC 2.65 10*6/uL (4.00-5.40) L [facility] HGB 7.6 g/dL (12.0-16.0) L [facility] HCT 23.4 % (36.0-47.0) L [facility] MCV 88.6 fL (80.0-95.0) [facility] MCH 28.6 pg (27.0-32.0) [facility] MCHC 32.3 g/dL (32.0-36.0) [facility] RDW 20.1 % (10.5-14.5) H [facility] PLT 431 10*3/uL (150-450) [facility] MPV 8.1 fL (7.1-10.7) [facility] ID Date Data Source [id number] 11/30/2020 02:52:26 AM EST [facility] Name Value Range Interpretation Code Description Data Tere rce(s) Supporting Document(s) POC GLUCOSE 242 mg/dL (70-99) H [facility] NOTIFIED NURSEPERFORMED BY CLINICAL S TAFF ID Date Data Source [id number] 11/30/2020 01:12:33 AM EST [facility] Name Value Range Interpretation Code Description Data Tere rce(s) Supporting Document(s) POC GLUCOSE 123 mg/dL (70-99) H [facility] NOTIFIED NURSEPERFORMED BY CLINICAL S TAFF ID Date Data Source [id number] 11/29/2020 06:00:29 PM EST [facility] Name Value Range Interpretation Code Description Data Tere rce(s) Supporting Document(s) HGB 7.2 g/dL (12.0-16.0) L [facility] ID Date Data Source [id number] 11/30/2020 01:12:33 AM EST [facility] Name Value Range Interpretation Code Description Data Tere rce(s) Supporting Document(s) POC GLUCOSE 244 mg/dL (70-99) H [facility] PERFORMED BY CLINICAL STAFF ID Date Data Source [id number] 11/29/2020 01:33:56 PM EST [facility] Name Value Range Interpretation Code Description Data Tere rce(s) Supporting Document(s) POC GLUCOSE 186 mg/dL (70-99) H [facility] PERFORMED BY CLINICAL STAFF ID Date Data Source [id number] 11/29/2020 09:42:22 AM EST [facility] Name Value Range Interpretation Code Description Data Tere rce(s) Supporting Document(s) POC GLUCOSE 118 mg/dL (70-99) H [facility] PERFORMED BY CLINICAL STAFF ID Date Data Source [id number] 11/29/2020 07:32:04 AM EST [facility] Name Value Range Interpretation Code Description Data Tere rce(s) Supporting Document(s) HGB 7.0 g/dL (12.0-16.0) L [facility] ID Date Data Source [id number] 11/29/2020 04:33:34 AM EST [facility] Name Value Range Interpretation Code Description Data Tere rce(s) Supporting Document(s) POC GLUCOSE 128 mg/dL (70-99) H [facility] PERFORMED BY CLINICAL STAFF ID Date Data Source [id number] 11/29/2020 02:43:19 AM EST [facility] Name Value Range Interpretation Code Description Data Tere rce(s) Supporting Document(s) POC GLUCOSE 65 mg/dL (70-99) L [facility] PERFORMED BY CLINICAL STAFF ID Date Data Source [id number] 11/28/2020 10:58:44 PM EST [facility] Name Value Range Interpretation Code Description Data Tere rce(s) Supporting Document(s) POC GLUCOSE 100 mg/dL (70-99) H [facility] PERFORMED BY CLINICAL STAFF ID Date Data Source [id number] 11/28/2020 10:01:00 PM EST [facility] Name Value Range Interpretation Code Description Data Tere rce(s) Supporting Document(s) POC GLUCOSE 61 mg/dL (70-99) L [facility] PERFORMED BY CLINICAL STAFF ID Date Data Source [id number] 11/28/2020 05:13:49 PM EST [facility] Name Value Range Interpretation Code Description Data Tere rce(s) Supporting Document(s) POC GLUCOSE 197 mg/dL (70-99) H [facility] NOTIFIED NURSEPERFORMED BY CLINICAL S TAFF ID Date Data Source [id number] 11/28/2020 09:08:21 AM EST [facility] Name Value Range Interpretation Code Description Data Tere rce(s) Supporting Document(s) POC GLUCOSE 187 mg/dL (70-99) [facility] NOTIFIED NURSEPERFORMED BY CLINICAL S TAFF ID Date Data Source [id number] 11/28/2020 08:31:40 AM EST [facility] Name Value Range Interpretation Code Description Data Tere rce(s) Supporting Document(s) SODIUM 140 mmol/L (136-145) [facility] POTASSIUM 4.6 mmol/L (3.6-5.2) [facility] CHLORIDE 105 mmol/L (100-108) [facility] CO2 29 mmol/L (22-31) [facility] ANION GAP 6 mmol/L (7-16) L [facility] UREA NITROGEN 3 mg/dL (7-24) L [facility] CREATININE 0.47 mg/dL (0.60-1.00) L [facility] BUN/CREAT RATIO 6.4 RATIO (10.0-20.0) L [facility] GLUCOSE 167 mg/dL (70-99) H [facility] CALCIUM 8.6 mg/dL (8.4-10.2) [facility] GFR >60 ml/min/1.73m2 (>59) [facility] GFR ( AMER) >60 ml/min/1.73m2 (>59) [facility] GFR INTERPRETATION [facility] [place] --NORMAL KIDNEY FUNCTION OR MILD DISEASE - GFR >OR= 60CHRONIC KIDNEY DISEASE - GFR 15 - 59RENAL FAILURE - GFR <15 Est. GFR calculation based on the MDRDstudy equation, which assumes a steadystate for creatinine. Est. GFR should notbe used for medication dosing. ID Date Data Source [id number] 11/28/2020 08:08:54 AM EST [facility] Name Value Range Interpretation Code Description Data Tere rce(s) Supporting Document(s) WBC 7.6 10*3/uL (4.1-11.0) [facility] [place] RBC 2.79 10*6/uL (4.00-5.40) L [facility] HGB 7.7 g/dL (12.0-16.0) L [facility] HCT 24.7 % (36.0-47.0) L [facility] MCV 88.5 fL (80.0-95.0) [facility] MCH 27.4 pg (27.0-32.0) [facility] MCHC 31.0 g/dL (32.0-36.0) L [facility] RDW 19.1 % (10.5-14.5) [facility] PLT 505 10*3/uL (150-450) [facility] MPV 8.3 fL (7.1-10.7) [facility] ID Date Data Source [id number] 11/28/2020 02:55:00 AM EST [facility] Name Value Range Interpretation Code Description Data Tere rce(s) Supporting Document(s) POC GLUCOSE 190 mg/dL (70-99) H [facility] NOTIFIED NURSEPERFORMED BY CLINICAL S TAFF ID Date Data Source [id number] 11/28/2020 04:56:00 PM EST [facility] [id number] XIOMARA FONTANAESYRAKAY CASTELLON [id number] NAME: GERALD MESA OF : 1975REPORT: DISCHARGE SUMMARYPATIENT NUMBER: [id number] STATUS: IPMEDICAL RECORD NUMBER: [id number] OF ADMISSION: 11/06/2020DATE OF DISCHARGE:ROOM: 01ADDENDUM TO [...] FELICITA Leviictated: 11/27/2020 21:18DT: 11/27/2020 21:27Job #: [id number]: [facility] computer generated reports are notconfirmed or authenticated unless they are signed by the providerElectronically Authenticated and Edited by:PAAYL VITAL MD On 11/28/2020 04:56 PM EST Name Value Range Interpretation Code Description Data Tere rce(s) Supporting Document(s) ID Date Data Source [id number] 11/27/2020 09:24:17 PM EST [facility] Name Value Range Interpretation Code Description Data Tere rce(s) Supporting Document(s) POC GLUCOSE 172 mg/dL (70-99) H [facility] NOTIFIED NURSEPERFORMED BY CLINICAL S TAFF ID Date Data Source [id number] 11/27/2020 04:33:07 PM EST [facility] Name Value Range Interpretation Code Description Data Tere rce(s) Supporting Document(s) POC GLUCOSE 93 mg/dL (70-99) [facility] NOTIFIED NURSEPERFORMED BY CLINICAL S TAFF ID Date Data Source [id number] 11/27/2020 04:11:33 PM EST [facility] Name Value Range Interpretation Code Description Data Tere rce(s) Supporting Document(s) POC GLUCOSE 61 mg/dL (70-99) L [facility] NOTIFIED NURSEPERFORMED BY CLINICAL S TAFF ID Date Data Source [id number] 11/27/2020 04:16:15 PM EST [facility] Name Value Range Interpretation Code Description Data Tere rce(s) Supporting Document(s) POC GLUCOSE 41 mg/dL (70-99) LL [facility] NOTIFIED NURSEPERFORMED BY CLINICAL S TAFF ID Date Data Source [id number] 12/03/2020 10:21:35 AM EST [facility] SPECIMEN DESCRIPTION PERIPHERALSP ECIAL REQUESTS NONECULTURE RESULTS NO GROWTH 6 DAYSREPORT STATUS FINAL 12/03/2020 Name Value Range Interpretation Code Description Data Tere rce(s) Supporting Document(s) ID Date Data Source [id number] 12/03/2020 10:21:35 AM EST [facility] SPECIMEN DESCRIPTION PERIPHERALSP ECIAL REQUESTS NONECULTURE RESULTS NO GROWTH 6 DAYSREPORT STATUS FINAL 12/03/2020 Name Value Range Interpretation Code Description Data Tere rce(s) Supporting Document(s) ID Date Data Source [id number] 11/27/2020 12:56:15 PM EST [facility] Name Value Range Interpretation Code Description Data Tere rce(s) Supporting Document(s) POC GLUCOSE 143 mg/dL (70-99) H [facility] PERFORMED BY CLINICAL STAFF ID Date Data Source [id number] 11/27/2020 08:35:27 AM EST [facility] Name Value Range Interpretation Code Description Data Tere rce(s) Supporting Document(s) POC GLUCOSE 87 mg/dL (70-99) [facility] NOTIFIED NURSEPERFORMED BY CLINICAL S TAFF ID Date Data Source [id number] 11/27/2020 08:31:54 AM EST [facility] Name Value Range Interpretation Code Description Data Tere rce(s) Supporting Document(s) POC GLUCOSE 53 mg/dL (70-99) L [facility] NOTIFIED NURSEPERFORMED BY CLINICAL S TAFF ID Date Data Source [id number] 11/27/2020 09:15:37 AM EST [facility] Name Value Range Interpretation Code Description Data Tere rce(s) Supporting Document(s) POC GLUCOSE 44 mg/dL (70-99) LL [facility] NOTIFIED NURSEPERFORMED BY CLINICAL S TAFF ID Date Data Source [id number] 11/27/2020 07:31:15 AM EST [facility] Name Value Range Interpretation Code Description Data Tere rce(s) Supporting Document(s) SODIUM 141 mmol/L (136-145) [facility] POTASSIUM 3.4 mmol/L (3.6-5.2) L [facility] CHLORIDE 105 mmol/L (100-108) [facility] CO2 30 mmol/L (22-31) [facility] ANION GAP 6 mmol/L (7-16) L [facility] UREA NITROGEN 4 mg/dL (7-24) L [facility] CREATININE 0.49 mg/dL (0.60-1.00) L [facility] BUN/CREAT RATIO 8.2 RATIO (10.0-20.0) L [facility] GLUCOSE 52 mg/dL (70-99) L [facility] CALCIUM 8.1 mg/dL (8.4-10.2) L [facility] TOTAL PROTEIN 6.6 g/dL (6.4-8.2) [facility] ALBUMIN 2.2 g/dL (3.5-4.6) L [facility] GLOBULIN 4.4 g/dL (2.7-4.3) H [facility] ALB/GLOB RATIO 0.5 RATIO [facility] ALKALINE PHOSPHATASE 116 U/L (45-117) [facility] BILIRUBIN,TOTAL 0.1 mg/dL (0.0-1.0) [facility] PLEASE NOTE:Total bilirubin results may be falselyelevated in patients taking Eltrombopag. AST (SGOT) 17 U/L (11-39) [facility] ALT (SGPT) 14 U/L (12-78) [facility] GFR >60 ml/min/1.73m2 (>59) [facility] GFR ( AMER) >60 ml/min/1.73m2 (>59) [facility] GFR INTERPRETATION [facility] --NORMAL KIDNEY FUNCTION OR MILD DISEASE - GFR >OR= 60CHRONIC KIDNEY DISEASE - GFR 15 - 59RENAL FAILURE - GFR <15 Est. GFR calculation based on the MDRDstudy equation, which assumes a steadystate for creatinine. Est. GFR should notbe used for medication dosing. ID Date Data Source [id number] 11/27/2020 06:59:02 AM EST [facility] Name Value Range Interpretation Code Description Data Tere rce(s) Supporting Document(s) WBC 6.9 10*3/uL (4.1-11.0) [facility] [place] [facility] [place] RBC 2.63 10*6/uL (4.00-5.40) L [facility] HGB 7.2 g/dL (12.0-16.0) L [facility] HCT 22.7 % (36.0-47.0) L [facility] MCV 86.3 fL (80.0-95.0) [facility] MCH 27.4 pg (27.0-32.0) [facility] MCHC 31.8 g/dL (32.0-36.0) L [facility] RDW 18.9 % (10.5-14.5) H [facility] PLT 531 10*3/uL (150-450) H [facility] MPV 8.3 fL (7.1-10.7) [facility] ID Date Data Source [id number] 11/27/2020 02:37:10 AM EST [facility] Name Value Range Interpretation Code Description Data Tere rce(s) Supporting Document(s) POC GLUCOSE 82 mg/dL (70-99) [facility] PERFORMED BY CLINICAL STAFF ID Date Data Source [id number] 11/26/2020 10:21:03 PM EST [facility] Name Value Range Interpretation Code Description Data Tere rce(s) Supporting Document(s) POC GLUCOSE 157 mg/dL (70-99) H [facility] NOTIFIED NURSEPERFORMED BY CLINICAL S TAFF ID Date Data Source [id number] 11/26/2020 06:33:02 PM EST [facility] Name Value Range Interpretation Code Description Data Tere rce(s) Supporting Document(s) POC GLUCOSE 120 mg/dL (70-99) H [facility] PERFORMED BY CLINICAL STAFF ID Date Data Source [id number] 11/26/2020 11:50:05 AM EST [facility] Name Value Range Interpretation Code Description Data Tere rce(s) Supporting Document(s) POC GLUCOSE 171 mg/dL (70-99) H [facility] PERFORMED BY CLINICAL STAFF ID Date Data Source [id number] 11/26/2020 09:52:50 AM EST [facility] Name Value Range Interpretation Code Description Data Tere rce(s) Supporting Document(s) POC GLUCOSE 150 mg/dL (70-99) H [facility] PERFORMED BY CLINICAL STAFF ID Date Data Source [id number] 11/26/2020 02:52:24 PM EST [facility] Name Value Range Interpretation Code Description Data Tere rce(s) Supporting Document(s) RETIC % 2.0 % (0.6-2.1) [facility] PERFORMED AT [address] [place] [id number] RETIC INDEX 1.1 % (0.5-1.9) [facility] ABSOLUTE RETIC 0.06 10*6/uL (0.027-0.101) [facility] ID Date Data Source [id number] 11/26/2020 10:13:28 AM EST [facility] Name Value Range Interpretation Code Description Data Tere rce(s) Supporting Document(s) IRON,TOTAL @ 14 ug/dL (35-150) L [facility] [place] UIBC @ 203 ug/dL (130-375) [facility] TIBC @ 217 ug/dL (250-450) L [facility] % SATURATION 6 % (12-50) L [facility] [place] [facility] [place] ID Date Data Source [id number] 11/26/2020 10:13:28 AM EST [facility] Name Value Range Interpretation Code Description Data Tere rce(s) Supporting Document(s) FERRITIN @ 63 ng/mL (8-252) [facility] ID Date Data Source [id number] 11/26/2020 07:23:15 AM EST [facility] Name Value Range Interpretation Code Description Data Tere rce(s) Supporting Document(s) LDH 152 U/L (84-246) [facility] ID Date Data Source [id number] 11/26/2020 07:23:15 AM EST [facility] Name Value Range Interpretation Code Description Data Tere rce(s) Supporting Document(s) SODIUM 139 mmol/L (136-145) [facility] POTASSIUM 3.8 mmol/L (3.6-5.2) [facility] CHLORIDE 104 mmol/L (100-108) [facility] CO2 26 mmol/L (22-31) [facility] ANION GAP 9 mmol/L (7-16) [facility] UREA NITROGEN 4 mg/dL (7-24) L [facility] CREATININE 0.54 mg/dL (0.60-1.00) L [facility] BUN/CREAT RATIO 7.4 RATIO (10.0-20.0) L [facility] GLUCOSE 207 mg/dL (70-99) H [facility] CALCIUM 7.8 mg/dL (8.4-10.2) L [facility] GFR >60 ml/min/1.73m2 (>59) [facility] GFR ( AMER) >60 ml/min/1.73m2 (>59) [facility] GFR INTERPRETATION [facility] [place] [facility] --NORMAL KIDNEY FUNCTION OR MILD DISEASE - GFR >OR= 60CHRONIC KIDNEY DISEASE - GFR 15 - 59RENAL FAILURE - GFR <15 Est. GFR calculation based on the MDRDstudy equation, which assumes a steadystate for creatinine. Est. GFR should notbe used for medication dosing. ID Date Data Source [id number] 11/26/2020 06:58:11 AM EST [facility] Name Value Range Interpretation Code Description Data Tere rce(s) Supporting Document(s) WBC 7.4 10*3/uL (4.1-11.0) [facility] [place] [facility] [place] RBC 2.75 10*6/uL (4.00-5.40) L [facility] HGB 7.5 g/dL (12.0-16.0) L [facility] HCT 23.5 % (36.0-47.0) L [facility] MCV 85.2 fL (80.0-95.0) [facility] MCH 27.3 pg (27.0-32.0) [facility] MCHC 32.0 g/dL (32.0-36.0) [facility] RDW 18.8 % (10.5-14.5) H [facility] PLT 557 10*3/uL (150-450) H [facility] MPV 8.2 fL (7.1-10.7) [facility] ID Date Data Source [id number] 11/26/2020 05:49:15 AM EST [facility] Name Value Range Interpretation Code Description Data Tere rce(s) Supporting Document(s) POC GLUCOSE 219 mg/dL (70-99) H [facility] PERFORMED BY CLINICAL STAFF ID Date Data Source [id number] 11/25/2020 08:59:29 PM EST [facility] Name Value Range Interpretation Code Description Data Tere rce(s) Supporting Document(s) POC GLUCOSE 150 mg/dL (70-99) H [facility] PERFORMED BY CLINICAL STAFF ID Date Data Source [id number] 11/25/2020 05:07:35 PM EST [facility] Name Value Range Interpretation Code Description Data Tere rce(s) Supporting Document(s) POC GLUCOSE 82 mg/dL (70-99) [facility] PERFORMED BY CLINICAL STAFF ID Date Data Source [id number] 11/25/2020 01:32:34 PM EST [facility] Name Value Range Interpretation Code Description Data Tere rce(s) Supporting Document(s) POC GLUCOSE 238 mg/dL (70-99) H [facility] [place] [facility] NOTIFIED NURSEPERFORMED BY CLINICAL S TAFF ID Date Data Source [id number] 11/25/2020 09:07:57 AM EST [facility] Name Value Range Interpretation Code Description Data Tere rce(s) Supporting Document(s) POC GLUCOSE 217 mg/dL (70-99) H [facility] [place] [facility] NOTIFIED NURSEPERFORMED BY CLINICAL S TAFF ID Date Data Source [id number] 11/25/2020 07:28:44 AM EST [facility] Name Value Range Interpretation Code Description Data Tere rce(s) Supporting Document(s) POC GLUCOSE 228 mg/dL (70-99) H [facility] PERFORMED BY CLINICAL STAFF ID Date Data Source [id number] 11/25/2020 08:40:12 AM EST [facility] Name Value Range Interpretation Code Description Data Tere rce(s) Supporting Document(s) SODIUM 137 mmol/L (136-145) [facility] POTASSIUM 4.2 mmol/L (3.6-5.2) [facility] CHLORIDE 103 mmol/L (100-108) [facility] CO2 23 mmol/L (22-31) [facility] ANION GAP 11 mmol/L (7-16) [facility] UREA NITROGEN 7 mg/dL (7-24) [facility] CREATININE 0.59 mg/dL (0.60-1.00) L [facility] BUN/CREAT RATIO 11.9 RATIO (10.0-20.0) [facility] GLUCOSE 242 mg/dL (70-99) H [facility] CALCIUM 8.1 mg/dL (8.4-10.2) L [facility] GFR >60 ml/min/1.73m2 (>59) [facility] GFR ( AMER) >60 ml/min/1.73m2 (>59) [facility] GFR INTERPRETATION [facility] --NORMAL KIDNEY FUNCTION OR MILD DISEASE - GFR >OR= 60CHRONIC KIDNEY DISEASE - GFR 15 - 59RENAL FAILURE - GFR <15 Est. GFR calculation based on the MDRDstudy equation, which assumes a steadystate for creatinine. Est. GFR should notbe used for medication dosing. ID Date Data Source [id number] 11/25/2020 07:53:36 AM EST [facility] Name Value Range Interpretation Code Description Data Tere rce(s) Supporting Document(s) WBC 8.5 10*3/uL (4.1-11.0) [facility] [place] [facility] [place] RBC 2.56 10*6/uL (4.00-5.40) L [facility] HGB 7.2 g/dL (12.0-16.0) L [facility] HCT 22.4 % (36.0-47.0) L [facility] MCV 87.7 fL (80.0-95.0) [facility] MCH 28.1 pg (27.0-32.0) [facility] MCHC 32.0 g/dL (32.0-36.0) [facility] RDW 18.5 % (10.5-14.5) H [facility] PLT 530 10*3/uL (150-450) H [facility] MPV 8.6 fL (7.1-10.7) [facility] ID Date Data Source [id number] 11/25/2020 08:40:12 AM EST [facility] Name Value Range Interpretation Code Description Data Tere rce(s) Supporting Document(s) VANCOMYCIN TROUGH 11.1 ug/mL (10.0-20.0) [facility] ID Date Data Source [id number] 11/25/2020 02:30:36 AM EST [facility] Name Value Range Interpretation Code Description Data Tere rce(s) Supporting Document(s) POC GLUCOSE 202 mg/dL (70-99) H [facility] NOTIFIED NURSEPERFORMED BY CLINICAL S TAFF ID Date Data Source [id number] 11/24/2020 11:08:59 PM EST [facility] Name Value Range Interpretation Code Description Data Tere rce(s) Supporting Document(s) POC GLUCOSE 88 mg/dL (70-99) [facility] NOTIFIED NURSEPERFORMED BY CLINICAL S TAFF ID Date Data Source [id number] 11/24/2020 11:08:59 PM EST [facility] Name Value Range Interpretation Code Description Data Tere rce(s) Supporting Document(s) POC GLUCOSE 66 mg/dL (70-99) L [facility] NOTIFIED NURSEPERFORMED BY CLINICAL S TAFF ID Date Data Source [id number] 11/24/2020 05:19:35 PM EST [facility] Name Value Range Interpretation Code Description Data Tere rce(s) Supporting Document(s) POC GLUCOSE 158 mg/dL (70-99) H [facility] PERFORMED BY CLINICAL STAFF ID Date Data Source [id number] 11/25/2020 07:48:00 AM EST [facility] [id number] [place], [place] [id number] NAME: GERALD MESA OF : 1975REPORT: OPERATIONPATIENT NUMBER: [id number] STATUS: IPMEDICAL RECORD NUMBER: [id number] OF ADMISSION: 11/06/2020DATE OF DISCHARGE:ROOM: 02DATE OF PROCEDURE: 1PREOPERATIVE DIAGNOSES:1. Deep lumbar spine infection.2. Wound dehiscence.POSTOPERATIVE [...] was applied, the patient was brought to [facility] in stable condition. I was present for the entire case and performedall critical aspects of the surgery.DICTATED BY: FELICITA Mcguireictated: 11/24/2020 12:47DT: 11/24/2020 12:55Job #: [id number]: [facility] computer generated reports are not confirmed orauthenticated unless they are signed by the providerElectronically Authenticated by:ELÍAS GORDON MD On 11/25/2020 07:48 AM EST Name Value Range Interpretation Code Description Data Tere rce(s) Supporting Document(s) ID Date Data Source [id number] 11/24/2020 12:57:38 PM EST [facility] Name Value Range Interpretation Code Description Data Tere rce(s) Supporting Document(s) POC GLUCOSE 107 mg/dL (70-99) H Lab [facility] NOTIFIED PROVIDERNOTIFIED NURSEPERFORMED BY CLINICAL STAFF ID Date Data Source [id number] 11/24/2020 05:03:18 PM EST [facility] SPECIMEN DESCRIPTION SITE LUMBA WOUNDSPECIAL REQUESTS NONECULTURE RESULTS SPECIMEN IMPROPERLY COLLECTED. RED TOP SWAB WITH NO GEL WAS RECEIVED. REPORT STATUS FINAL 11/24/2020 Name Value Range Interpretation Code Description Data Tere rce(s) Supporting Document(s) ID Date Data Source [id number] 11/27/2020 08:46:13 AM EST [facility] SPECIMEN DESCRIPTION SITE LUMBAU WOUNDSPECIAL REQUESTS NONECULTURE RESULTS NO ANAEROBES ISOLATEDREPORT STATUS FINAL 11/27/2020 Name Value Range Interpretation Code Description Data Tere rce(s) Supporting Document(s) ID Date Data Source [id number] 11/26/2020 08:52:32 AM EST [facility] SPECIMEN DESCRIPTION SITE LUMBAU WOUNDSPECIAL REQUESTS NONEGRAM [...] rce(s) Supporting Document(s) ID Date Data Source [id number] 11/26/2020 08:37:27 AM EST Lab [facility] SPECIMEN DESCRIPTION SITE LUMBA WOUNDSPECIAL REQUESTS NONEGRAM [...] rce(s) Supporting Document(s) ID Date Data Source [id number] 11/24/2020 11:20:27 AM EST [facility] Name Value Range Interpretation Code Description Data Tere rce(s) Supporting Document(s) POC GLUCOSE 204 mg/dL (70-99) H [facility] PERFORMED BY CLINICAL STAFF ID Date Data Source [id number] 11/24/2020 10:04:18 AM EST [facility] Name Value Range Interpretation Code Description Data Tere rce(s) Supporting Document(s) WBC 7.5 10*3/uL (4.1-11.0) [facility] [place] [facility] [place] RBC 2.60 10*6/uL (4.00-5.40) L [facility] HGB 7.4 g/dL (12.0-16.0) L [facility] HCT 22.8 % (36.0-47.0) L [facility] MCV 87.7 fL (80.0-95.0) [facility] MCH 28.4 pg (27.0-32.0) [facility] MCHC 32.4 g/dL (32.0-36.0) [facility] RDW 18.7 % (10.5-14.5) H [facility] [place] [facility] PLT 514 10*3/uL (150-450) H [facility] MPV 8.3 fL (7.1-10.7) [facility] NEUT % 67.9 % (35.0-75.0) [facility] LYMPH % 10.5 % (16.0-52.0) L [facility] MONO % 11.9 % (0.0-8.0) H [facility] [place] [facility] EOS % 8.3 % (0.0-5.0) H [facility] BASO % 1.4 % (0.0-4.0) [facility] NEUT # 5.1 10*3/uL (1.8-7.7) [facility] LYMPH # 0.8 10*3/uL (1.2-4.8) L [facility] [place] [facility] MONO # 0.9 10*3/uL (0.0-0.8) H [facility] [place] [facility] Eosinophils [#/volume] in Blood by Automated count 0.6 10*3/uL (0.0-0 .5) H [facility] BASO # 0.1 10*3/uL (0.0-0.2) [facility] ID Date Data Source [id number] 11/24/2020 09:41:20 AM EST [facility] Name Value Range Interpretation Code Description Data Tere rce(s) Supporting Document(s) SODIUM 137 mmol/L (136-145) [facility] POTASSIUM 4.2 mmol/L (3.6-5.2) [facility] CHLORIDE 101 mmol/L (100-108) [facility] CO2 27 mmol/L (22-31) [facility] ANION GAP 9 mmol/L (7-16) [facility] UREA NITROGEN 9 mg/dL (7-24) [facility] CREATININE 0.62 mg/dL (0.60-1.00) [facility] BUN/CREAT RATIO 14.5 RATIO (10.0-20.0) [facility] GLUCOSE 203 mg/dL (70-99) H [facility] [place] [facility] CALCIUM 8.4 mg/dL (8.4-10.2) [facility] GFR >60 ml/min/1.73m2 (>59) [facility] GFR ( AMER) >60 ml/min/1.73m2 (>59) [facility] GFR INTERPRETATION [facility] --NORMAL KIDNEY FUNCTION OR MILD DISEASE - GFR >OR= 60CHRONIC KIDNEY DISEASE - GFR 15 - 59RENAL FAILURE - GFR <15 Est. GFR calculation based on the MDRDstudy equation, which assumes a steadystate for creatinine. Est. GFR should notbe used for medication dosing. ID Date Data Source [id number] 11/24/2020 08:14:41 AM EST [facility] [place] Name Value Range Interpretation Code Description Data Tere rce(s) Supporting Document(s) POC GLUCOSE 205 mg/dL (70-99) H [facility] [place] [facility] PERFORMED BY CLINICAL STAFF ID Date Data Source [id number] 11/24/2020 02:53:23 AM EST [facility] [place] Name Value Range Interpretation Code Description Data Tere rce(s) Supporting Document(s) POC GLUCOSE 176 mg/dL (70-99) H [facility] [place] [facility] NOTIFIED NURSEPERFORMED BY CLINICAL S TAFF ID Date Data Source [id number] 11/24/2020 01:24:00 AM EST [facility] [place] Name Value Range Interpretation Code Description Data Tere rce(s) Supporting Document(s) POC GLUCOSE 157 mg/dL (70-99) H [facility] [place] [facility] PERFORMED BY CLINICAL STAFF ID Date Data Source [id number] 11/23/2020 06:32:12 PM EST [facility] [place] Name Value Range Interpretation Code Description Data Tere rce(s) Supporting Document(s) POC GLUCOSE 90 mg/dL (70-99) [facility] PERFORMED BY CLINICAL STAFF ID Date Data Source [id number] 11/29/2020 12:17:34 PM EST [facility] [place] SPECIMEN DESCRIPTION PERIPHERALSP ECIAL REQUESTS NONECULTURE RESULTS NO GROWTH 6 DAYSREPORT STATUS FINAL 11/29/2020 Name Value Range Interpretation Code Description Data Tere rce(s) Supporting Document(s) ID Date Data Source [id number] 11/29/2020 12:17:34 PM EST [facility] [place] SPECIMEN DESCRIPTION PERIPHERALSP ECIAL REQUESTS NONECULTURE RESULTS NO GROWTH 6 DAYSREPORT STATUS FINAL 11/29/2020 Name Value Range Interpretation Code Description Data Tere rce(s) Supporting Document(s) ID Date Data Source [id number] 11/23/2020 12:47:04 PM EST [facility] [place] Name Value Range Interpretation Code Description Data Tere rce(s) Supporting Document(s) POC GLUCOSE 210 mg/dL (70-99) H [facility] NOTIFIED NURSEPERFORMED BY CLINICAL S TAFF ID Date Data Source [id number] 11/25/2020 09:56:14 AM EST [facility] [place] SPECIMEN DESCRIPTION SURGICAL WOU NDSPECIAL REQUESTS NONEGRAM [...] rce(s) Supporting Document(s) ID Date Data Source [id number] 11/25/2020 08:52:52 AM EST Lab [facility] [place] SPECIMEN DESCRIPTION SURGICAL WOU NDSPECIAL REQUESTS NONEGRAM [...] SUSCEPTIBLE TO DOXYCYCLINE AND MINOCYCLINE.TOBRAMYCIN <=1 SUSCEPTIBLETRIMETH/SULFA <=/ SUSCEPTIBLEERTAPENEM <=0.5 SUSCEPTIBLE Name Value Range Interpretation Code Description Data Tere rce(s) Supporting Document(s) ID Date Data Source [id number] 11/23/2020 08:55:41 AM EST [facility] Name Value Range Interpretation Code Description Data Tere rce(s) Supporting Document(s) POC GLUCOSE 285 mg/dL (70-99) H [facility] [place] [facility] NOTIFIED NURSEPERFORMED BY CLINICAL S TAFF ID Date Data Source [id number] 11/23/2020 10:24:41 AM EST [facility] Name Value Range Interpretation Code Description Data Tere rce(s) Supporting Document(s) SODIUM 133 mmol/L (136-145) L [facility] POTASSIUM 4.4 mmol/L (3.6-5.2) [facility] CHLORIDE 98 mmol/L (100-108) L [facility] CO2 24 mmol/L (22-31) [facility] ANION GAP 11 mmol/L (7-16) [facility] UREA NITROGEN 9 mg/dL (7-24) [facility] CREATININE 0.58 mg/dL (0.60-1.00) L [facility] BUN/CREAT RATIO 15.5 RATIO (10.0-20.0) [facility] GLUCOSE 263 mg/dL (70-99) H [facility] CALCIUM 8.8 mg/dL (8.4-10.2) [facility] GFR >60 ml/min/1.73m2 (>59) [facility] GFR ( AMER) >60 ml/min/1.73m2 (>59) [facility] GFR INTERPRETATION [facility] --NORMAL KIDNEY FUNCTION OR MILD DISEASE - GFR >OR= 60CHRONIC KIDNEY DISEASE - GFR 15 - 59RENAL FAILURE - GFR <15 Est. GFR calculation based on the MDRDstudy equation, which assumes a steadystate for creatinine. Est. GFR should notbe used for medication dosing. ID Date Data Source [id number] 11/23/2020 09:58:36 AM EST [facility] Name Value Range Interpretation Code Description Data Tere rce(s) Supporting Document(s) WBC 11.8 10*3/uL (4.1-11.0) H [facility] [place] [facility] RBC 2.84 10*6/uL (4.00-5.40) L [facility] [place] [facility] HGB 7.6 g/dL (12.0-16.0) L [facility] HCT 24.5 % (36.0-47.0) L [facility] MCV 86.1 fL (80.0-95.0) [facility] MCH 26.9 pg (27.0-32.0) L [facility] [place] [facility] MCHC 31.2 g/dL (32.0-36.0) L [facility] RDW 19.1 % (10.5-14.5) H [facility] PLT 534 10*3/uL (150-450) H [facility] MPV 8.8 fL (7.1-10.7) [facility] ID Date Data Source [id number] 11/23/2020 03:22:59 AM EST [facility] Name Value Range Interpretation Code Description Data Tere rce(s) Supporting Document(s) POC GLUCOSE 194 mg/dL (70-99) H [facility] PERFORMED BY CLINICAL STAFF ID Date Data Source [id number] 11/22/2020 11:24:14 PM EST [facility] Name Value Range Interpretation Code Description Data Tere rce(s) Supporting Document(s) POC GLUCOSE 156 mg/dL (70-99) H [facility] [place] [facility] NOTIFIED NURSEPERFORMED BY CLINICAL S TAFF ID Date Data Source [id number] 11/22/2020 11:24:14 PM EST [facility] Name Value Range Interpretation Code Description Data Tere rce(s) Supporting Document(s) POC GLUCOSE 132 mg/dL (70-99) H [facility] NOTIFIED NURSEPERFORMED BY CLINICAL S TAFF ID Date Data Source [id number] 11/22/2020 10:02:20 PM EST [facility] Name Value Range Interpretation Code Description Data Tere rce(s) Supporting Document(s) POC GLUCOSE 66 mg/dL (70-99) L [facility] NOTIFIED NURSEPERFORMED BY CLINICAL S TAFF ID Date Data Source [id number] 11/22/2020 06:13:03 PM EST [facility] [facility] Name Value Range Interpretation Code Description Data Tere rce(s) Supporting Document(s) POC GLUCOSE 75 mg/dL (70-99) [facility] NOTIFIED NURSEPERFORMED BY CLINICAL S TAFF ID Date Data Source [id number] 11/22/2020 12:26:06 PM EST [facility] Name Value Range Interpretation Code Description Data Tere rce(s) Supporting Document(s) POC GLUCOSE 292 mg/dL (70-99) H [facility] NOTIFIED NURSEPERFORMED BY CLINICAL S TAFF ID Date Data Source [id number] 11/22/2020 11:49:13 AM EST [facility] Name Value Range Interpretation Code Description Data Tere rce(s) Supporting Document(s) PHOSPHORUS 3.3 mg/dL (2.5-4.5) [facility] ID Date Data Source [id number] 11/22/2020 11:49:13 AM EST [facility] Name Value Range Interpretation Code Description Data Tere rce(s) Supporting Document(s) SODIUM 131 mmol/L (136-145) L [facility] POTASSIUM 4.0 mmol/L (3.6-5.2) [facility] CHLORIDE 97 mmol/L (100-108) L [facility] CO2 25 mmol/L (22-31) [facility] ANION GAP 9 mmol/L (7-16) [facility] UREA NITROGEN 11 mg/dL (7-24) [facility] CREATININE 0.65 mg/dL (0.60-1.00) [facility] BUN/CREAT RATIO 16.9 RATIO (10.0-20.0) [facility] GLUCOSE 363 mg/dL (70-99) H [facility] CALCIUM 8.1 mg/dL (8.4-10.2) L [facility] TOTAL PROTEIN 6.9 g/dL (6.4-8.2) [facility] ALBUMIN 2.4 g/dL (3.5-4.6) L [facility] GLOBULIN 4.5 g/dL (2.7-4.3) H [facility] ALB/GLOB RATIO 0.5 RATIO [facility] ALKALINE PHOSPHATASE 105 U/L (45-117) [facility] BILIRUBIN,TOTAL 0.4 mg/dL (0.0-1.0) [facility] PLEASE NOTE:Total bilirubin results may be falselyelevated in patients taking Eltrombopag. AST (SGOT) 12 U/L (11-39) [facility] ALT (SGPT) 11 U/L (12-78) L [facility] GFR >60 ml/min/1.73m2 (>59) [facility] GFR ( AMER) >60 ml/min/1.73m2 (>59) [facility] GFR INTERPRETATION [facility] --NORMAL KIDNEY FUNCTION OR MILD DISEASE - GFR >OR= 60CHRONIC KIDNEY DISEASE - GFR 15 - 59RENAL FAILURE - GFR <15 Est. GFR calculation based on the MDRDstudy equation, which assumes a steadystate for creatinine. Est. GFR should notbe used for medication dosing. ID Date Data Source [id number] 11/22/2020 11:49:13 AM EST [facility] Name Value Range Interpretation Code Description Data Tere rce(s) Supporting Document(s) MAGNESIUM 2.0 mg/dL (1.7-2.4) [facility] ID Date Data Source [id number] 11/22/2020 11:23:02 AM EST [facility] Name Value Range Interpretation Code Description Data Tere rce(s) Supporting Document(s) WBC 15.3 10*3/uL (4.1-11.0) H [facility] RBC 2.91 10*6/uL (4.00-5.40) L [facility] HGB 8.0 g/dL (12.0-16.0) L [facility] HCT 25.3 % (36.0-47.0) L [facility] MCV 86.8 fL (80.0-95.0) [facility] MCH 27.6 pg (27.0-32.0) [facility] MCHC 31.8 g/dL (32.0-36.0) L [facility] RDW 19.0 % (10.5-14.5) H [facility] PLT 525 10*3/uL (150-450) H [facility] MPV 8.1 fL (7.1-10.7) [facility] ID Date Data Source [id number] 11/22/2020 08:44:17 AM EST [facility] Name Value Range Interpretation Code Description Data Tere rce(s) Supporting Document(s) POC GLUCOSE 166 mg/dL (70-99) H [facility] PERFORMED BY CLINICAL STAFF ID Date Data Source [id number] 11/22/2020 03:23:51 AM EST [facility] Name Value Range Interpretation Code Description Data Tere rce(s) Supporting Document(s) POC GLUCOSE 197 mg/dL (70-99) H [facility] PERFORMED BY CLINICAL STAFF ID Date Data Source [id number] 11/22/2020 12:18:28 AM EST [facility] Name Value Range Interpretation Code Description Data Tere rce(s) Supporting Document(s) POC GLUCOSE 137 mg/dL (70-99) H [facility] PERFORMED BY CLINICAL STAFF ID Date Data Source [id number] 11/21/2020 11:42:57 PM EST [facility] Name Value Range Interpretation Code Description Data Tere rce(s) Supporting Document(s) POC GLUCOSE 115 mg/dL (70-99) H [facility] PERFORMED BY CLINICAL STAFF ID Date Data Source [id number] 11/21/2020 11:42:52 PM EST [facility] Name Value Range Interpretation Code Description Data Tere rce(s) Supporting Document(s) POC GLUCOSE 66 mg/dL (70-99) L [facility] PERFORMED BY CLINICAL STAFF ID Date Data Source [id number] 11/21/2020 05:38:59 PM EST [facility] Name Value Range Interpretation Code Description Data Tere rce(s) Supporting Document(s) POC GLUCOSE 212 mg/dL (70-99) H [facility] PERFORMED BY CLINICAL STAFF ID Date Data Source [id number] 11/21/2020 12:28:48 PM EST [facility] Name Value Range Interpretation Code Description Data Tere rce(s) Supporting Document(s) POC GLUCOSE 300 mg/dL (70-99) H [facility] NOTIFIED NURSEPERFORMED BY CLINICAL S TAFF ID Date Data Source [id number] 11/21/2020 08:20:06 AM EST [facility] Name Value Range Interpretation Code Description Data Tere rce(s) Supporting Document(s) POC GLUCOSE 147 mg/dL (70-99) H [facility] NOTIFIED NURSEPERFORMED BY CLINICAL S TAFF ID Date Data Source [id number] 11/21/2020 03:11:08 AM EST [facility] Name Value Range Interpretation Code Description Data Tere rce(s) Supporting Document(s) POC GLUCOSE 172 mg/dL (70-99) H [facility] PERFORMED BY CLINICAL STAFF ID Date Data Source [id number] 11/20/2020 10:10:12 PM EST [facility] Name Value Range Interpretation Code Description Data Tere rce(s) Supporting Document(s) POC GLUCOSE 177 mg/dL (70-99) H [facility] PERFORMED BY CLINICAL STAFF ID Date Data Source [id number] 11/20/2020 05:31:54 PM EST [facility] Name Value Range Interpretation Code Description Data Tere rce(s) Supporting Document(s) POC GLUCOSE 91 mg/dL (70-99) [facility] PERFORMED BY CLINICAL STAFF ID Date Data Source [id number] 11/20/2020 12:30:00 PM EST [facility] Name Value Range Interpretation Code Description Data Tere rce(s) Supporting Document(s) POC GLUCOSE 313 mg/dL (70-99) H [facility] PERFORMED BY CLINICAL STAFF ID Date Data Source [id number] 11/20/2020 09:09:54 AM EST [facility] Name Value Range Interpretation Code Description Data Tere rce(s) Supporting Document(s) POC GLUCOSE 131 mg/dL (70-99) H [facility] NOTIFIED NURSEPERFORMED BY CLINICAL S TAFF ID Date Data Source [id number] 11/20/2020 02:45:31 AM EST [facility] Name Value Range Interpretation Code Description Data Tere rce(s) Supporting Document(s) POC GLUCOSE 130 mg/dL (70-99) H [facility] NOTIFIED NURSEPERFORMED BY CLINICAL S TAFF ID Date Data Source [id number] 11/19/2020 11:08:05 PM EST [facility] Name Value Range Interpretation Code Description Data Tere rce(s) Supporting Document(s) POC GLUCOSE 131 mg/dL (70-99) H [facility] PERFORMED BY CLINICAL STAFF ID Date Data Source [id number] 11/19/2020 10:19:26 PM EST [facility] Name Value Range Interpretation Code Description Data Tere rce(s) Supporting Document(s) POC GLUCOSE 155 mg/dL (70-99) H [facility] NOTIFIED NURSEPERFORMED BY CLINICAL S TAFF ID Date Data Source [id number] 11/19/2020 10:19:26 PM EST [facility] Name Value Range Interpretation Code Description Data Tere rce(s) Supporting Document(s) POC GLUCOSE 66 mg/dL (70-99) L [facility] NOTIFIED NURSEPERFORMED BY CLINICAL S TAFF ID Date Data Source [id number] 11/19/2020 05:20:41 PM EST [facility] Name Value Range Interpretation Code Description Data Tere rce(s) Supporting Document(s) POC GLUCOSE 97 mg/dL (70-99) [facility] PERFORMED BY CLINICAL STAFF ID Date Data Source [id number] 11/19/2020 11:19:00 AM EST [facility] Name Value Range Interpretation Code Description Data Tere rce(s) Supporting Document(s) POC GLUCOSE 210 mg/dL (70-99) H [facility] NOTIFIED NURSEPERFORMED BY CLINICAL S TAFF ID Date Data Source [id number] 11/19/2020 08:04:54 AM EST [facility] Name Value Range Interpretation Code Description Data Tere rce(s) Supporting Document(s) POC GLUCOSE 167 mg/dL (70-99) H [facility] NOTIFIED NURSEPERFORMED BY CLINICAL S TAFF ID Date Data Source [id number] 11/19/2020 03:09:15 AM EST [facility] Name Value Range Interpretation Code Description Data Tere rce(s) Supporting Document(s) POC GLUCOSE 144 mg/dL (70-99) H [facility] PERFORMED BY CLINICAL STAFF ID Date Data Source [id number] 11/18/2020 10:11:50 PM EST [facility] Name Value Range Interpretation Code Description Data Tere rce(s) Supporting Document(s) GLUCOSE 450 mg/dL (70-99) HH [facility] RESULT(S) CALLED TO AND READ BACK BYTRAC Y 4MEM ON 11/18/2020 AT 2210 [place] [id number] ID Date Data Source [id number] 11/18/2020 09:40:49 PM EST [facility] Name Value Range Interpretation Code Description Data Tere rce(s) Supporting Document(s) POC GLUCOSE 468 mg/dL (70-99) HH [facility] PERFORMED BY CLINICAL STAFF ID Date Data Source [id number] 11/18/2020 07:03:42 PM EST [facility] Name Value Range Interpretation Code Description Data Tere rce(s) Supporting Document(s) POC GLUCOSE 355 mg/dL (70-99) H [facility] PERFORMED BY CLINICAL STAFF ID Date Data Source [id number] 11/18/2020 05:30:25 PM EST [facility] Name Value Range Interpretation Code Description Data Tere rce(s) Supporting Document(s) POC GLUCOSE 436 mg/dL (70-99) HH [facility] NOTIFIED NURSEPERFORMED BY CLINICAL S TAFF ID Date Data Source [id number] 11/18/2020 04:22:32 PM EST [facility] Name Value Range Interpretation Code Description Data Tere rce(s) Supporting Document(s) POC GLUCOSE 450 mg/dL (70-99) HH [facility] PERFORMED BY CLINICAL STAFF ID Date Data Source [id number] 11/18/2020 12:41:06 PM EST [facility] Name Value Range Interpretation Code Description Data Tere rce(s) Supporting Document(s) POC GLUCOSE 397 mg/dL (70-99) H [facility] PERFORMED BY CLINICAL STAFF ID Date Data Source [id number] 11/18/2020 08:01:04 AM EST [facility] Name Value Range Interpretation Code Description Data Tere rce(s) Supporting Document(s) POC GLUCOSE 240 mg/dL (70-99) H [facility] NOTIFIED NURSEPERFORMED BY CLINICAL S TAFF ID Date Data Source [id number] 11/18/2020 02:43:41 AM EST [facility] Name Value Range Interpretation Code Description Data Tere rce(s) Supporting Document(s) POC GLUCOSE 218 mg/dL (70-99) H [facility] PERFORMED BY CLINICAL STAFF ID Date Data Source [id number] 11/17/2020 10:14:11 PM EST [facility] Name Value Range Interpretation Code Description Data Tere rce(s) Supporting Document(s) POC GLUCOSE 102 mg/dL (70-99) H [facility] PERFORMED BY CLINICAL STAFF ID Date Data Source [id number] 11/17/2020 05:48:02 PM EST [facility] Name Value Range Interpretation Code Description Data Tere rce(s) Supporting Document(s) POC GLUCOSE 142 mg/dL (70-99) H [facility] PERFORMED BY CLINICAL STAFF ID Date Data Source [id number] 11/17/2020 12:40:43 PM EST [facility] Name Value Range Interpretation Code Description Data Tere rce(s) Supporting Document(s) POC GLUCOSE 112 mg/dL (70-99) H [facility] PERFORMED BY CLINICAL STAFF ID Date Data Source [id number] 11/17/2020 09:34:03 AM EST [facility] Name Value Range Interpretation Code Description Data Tere rce(s) Supporting Document(s) POC GLUCOSE 229 mg/dL (70-99) H [facility] PERFORMED BY CLINICAL STAFF ID Date Data Source [id number] 11/17/2020 02:52:16 AM EST [facility] Name Value Range Interpretation Code Description Data Tere rce(s) Supporting Document(s) POC GLUCOSE 230 mg/dL (70-99) H [facility] PERFORMED BY CLINICAL STAFF ID Date Data Source [id number] 11/16/2020 09:33:11 PM EST [facility] Name Value Range Interpretation Code Description Data Etre rce(s) Supporting Document(s) POC GLUCOSE 249 mg/dL (70-99) H [facility] NOTIFIED NURSEPERFORMED BY CLINICAL S TAFF ID Date Data Source [id number] 11/16/2020 07:49:51 PM EST [facility] Name Value Range Interpretation Code Description Data Tere rce(s) Supporting Document(s) POC GLUCOSE 182 mg/dL (70-99) H [facility] PERFORMED BY CLINICAL STAFF ID Date Data Source [id number] 11/16/2020 06:20:39 PM EST [facility] Name Value Range Interpretation Code Description Data Tere rce(s) Supporting Document(s) POC GLUCOSE 77 mg/dL (70-99) [facility] PERFORMED BY CLINICAL STAFF ID Date Data Source [id number] 11/16/2020 05:42:52 PM EST [facility] Name Value Range Interpretation Code Description Data Tere rce(s) Supporting Document(s) POC GLUCOSE 60 mg/dL (70-99) L [facility] PERFORMED BY CLINICAL STAFF ID Date Data Source [id number] 11/16/2020 05:42:52 PM EST [facility] Name Value Range Interpretation Code Description Data Tere rce(s) Supporting Document(s) POC GLUCOSE 32 mg/dL (70-99) LL [facility] PERFORMED BY CLINICAL STAFF ID Date Data Source [id number] 11/16/2020 03:09:09 PM EST [facility] Name Value Range Interpretation Code Description Data Tere rce(s) Supporting Document(s) POC GLUCOSE 103 mg/dL (70-99) H [facility] PERFORMED BY CLINICAL STAFF ID Date Data Source [id number] 11/16/2020 04:18:16 PM EST [facility] Name Value Range Interpretation Code Description Data Tere rce(s) Supporting Document(s) SODIUM 132 mmol/L (136-145) L [facility] POTASSIUM 4.9 mmol/L (3.6-5.2) [facility] CHLORIDE 97 mmol/L (100-108) L [facility] CO2 33 mmol/L (22-31) H [facility] ANION GAP 2 mmol/L (7-16) L [facility] UREA NITROGEN 14 mg/dL (7-24) [facility] CREATININE 0.75 mg/dL (0.60-1.00) [facility] BUN/CREAT RATIO 18.7 RATIO (10.0-20.0) [facility] GLUCOSE 123 mg/dL (70-99) H [facility] CALCIUM 8.5 mg/dL (8.4-10.2) [facility] GFR >60 ml/min/1.73m2 (>59) [facility] GFR ( AMER) >60 ml/min/1.73m2 (>59) [facility] GFR INTERPRETATION [facility] --NORMAL KIDNEY FUNCTION OR MILD DISEASE - GFR >OR= 60CHRONIC KIDNEY DISEASE - GFR 15 - 59RENAL FAILURE - GFR <15 Est. GFR calculation based on the MDRDstudy equation, which assumes a steadystate for creatinine. Est. GFR should notbe used for medication dosing. ID Date Data Source [id number] 11/16/2020 03:49:50 PM EST [facility] Name Value Range Interpretation Code Description Data Tere rce(s) Supporting Document(s) WBC 7.9 10*3/uL (4.1-11.0) [facility] RBC 2.73 10*6/uL (4.00-5.40) L [facility] HGB 8.0 g/dL (12.0-16.0) L [facility] HCT 24.6 % (36.0-47.0) L [facility] MCV 90.1 fL (80.0-95.0) [facility] MCH 29.4 pg (27.0-32.0) [facility] MCHC 32.7 g/dL (32.0-36.0) [facility] RDW 19.3 % (10.5-14.5) H [facility] PLT 454 10*3/uL (150-450) H [facility] MPV 8.3 fL (7.1-10.7) [facility] ID Date Data Source [id number] 11/16/2020 12:41:09 PM EST [facility] Name Value Range Interpretation Code Description Data Tere rce(s) Supporting Document(s) POC GLUCOSE 181 mg/dL (70-99) H [facility] PERFORMED BY CLINICAL STAFF ID Date Data Source [id number] 11/16/2020 09:38:35 AM EST [facility] Name Value Range Interpretation Code Description Data Tere rce(s) Supporting Document(s) POC GLUCOSE 185 mg/dL (70-99) H [facility] PERFORMED BY CLINICAL STAFF ID Date Data Source [id number] 11/16/2020 03:16:59 AM EST [facility] Name Value Range Interpretation Code Description Data Tere rce(s) Supporting Document(s) POC GLUCOSE 128 mg/dL (70-99) H [facility] NOTIFIED NURSEPERFORMED BY CLINICAL S TAFF ID Date Data Source [id number] 11/15/2020 08:55:21 PM EST [facility] Name Value Range Interpretation Code Description Data Tere rce(s) Supporting Document(s) POC GLUCOSE 188 mg/dL (70-99) H [facility] NOTIFIED NURSEPERFORMED BY CLINICAL S TAFF ID Date Data Source [id number] 11/15/2020 04:46:00 PM EST [facility] Name Value Range Interpretation Code Description Data Tere rce(s) Supporting Document(s) POC GLUCOSE 115 mg/dL (70-99) H [facility] PERFORMED BY CLINICAL STAFF ID Date Data Source [id number] 11/15/2020 12:41:44 PM EST [facility] Name Value Range Interpretation Code Description Data Tere rce(s) Supporting Document(s) POC GLUCOSE 199 mg/dL (70-99) H [facility] NOTIFIED NURSEPERFORMED BY CLINICAL S TAFF ID Date Data Source [id number] 11/15/2020 08:09:49 AM EST [facility] Name Value Range Interpretation Code Description Data Tere rce(s) Supporting Document(s) POC GLUCOSE 167 mg/dL (70-99) H [facility] NOTIFIED NURSEPERFORMED BY CLINICAL S TAFF ID Date Data Source [id number] 11/15/2020 03:13:29 AM EST [facility] Name Value Range Interpretation Code Description Data Tere rce(s) Supporting Document(s) POC GLUCOSE 204 mg/dL (70-99) H [facility] NOTIFIED NURSEPERFORMED BY CLINICAL S TAFF ID Date Data Source [id number] 11/14/2020 09:41:41 PM EST [facility] Name Value Range Interpretation Code Description Data Tere rce(s) Supporting Document(s) POC GLUCOSE 80 mg/dL (70-99) [facility] NOTIFIED NURSEPERFORMED BY CLINICAL S TAFF ID Date Data Source [id number] 11/14/2020 04:51:41 PM EST [facility] Name Value Range Interpretation Code Description Data Tere rce(s) Supporting Document(s) POC GLUCOSE 128 mg/dL (70-99) H [facility] PERFORMED BY CLINICAL STAFF ID Date Data Source [id number] 11/14/2020 04:48:00 PM EST [facility] DATE OF EXAM: 11/14/2020EXAM: Portable c hest INDICATION: COVID COMPARISON: No prior chest radiographs on the timeline. TECHNIQUE: AP semiupright. There is a limited degree of inspiration with minor accentuation of the pulmonary markings however no focal area of pneumonia is seen. The mediastinum, heart, and pulmonary vascularity are within normal limits. Professional interpretation performed at [facility] .End of diagnostic report for accession: [id number] Interpreted: Santiago Fraga MDTranscribed: 11/14/2020 04:48 PMSigned: 11/14/2020 04:48 PM Santiago Fraga MD [facility] # [id number] BILL # [id number] Name Value Range Interpretation Code Description Data Tere rce(s) Supporting Document(s) ID Date Data Source [id number] 11/14/2020 12:24:53 PM EST [facility] Name Value Range Interpretation Code Description Data Tere rce(s) Supporting Document(s) POC GLUCOSE 131 mg/dL (70-99) H [facility] NOTIFIED NURSEPERFORMED BY CLINICAL S TAFF ID Date Data Source [id number] 11/14/2020 12:04:42 PM EST [facility] Name Value Range Interpretation Code Description Data Tere rce(s) Supporting Document(s) FERRITIN @ 40 ng/mL (8-252) [facility] ID Date Data Source [id number] 11/14/2020 09:38:08 AM EST [facility] Name Value Range Interpretation Code Description Data Tere rce(s) Supporting Document(s) LDH 222 U/L (84-246) [facility] ID Date Data Source [id number] 11/14/2020 09:38:08 AM EST [facility] Name Value Range Interpretation Code Description Data Tere rce(s) Supporting Document(s) SODIUM 133 mmol/L (136-145) L [facility] POTASSIUM 5.8 mmol/L (3.6-5.2) H [facility] CHLORIDE 99 mmol/L (100-108) L [facility] CO2 29 mmol/L (22-31) [facility] ANION GAP 5 mmol/L (7-16) L [facility] UREA NITROGEN 11 mg/dL (7-24) [facility] CREATININE 0.68 mg/dL (0.60-1.00) [facility] BUN/CREAT RATIO 16.2 RATIO (10.0-20.0) [facility] GLUCOSE 352 mg/dL (70-99) H [facility] CALCIUM 8.4 mg/dL (8.4-10.2) [facility] GFR >60 ml/min/1.73m2 (>59) [facility] GFR ( AMER) >60 ml/min/1.73m2 (>59) [facility] GFR INTERPRETATION [facility] --NORMAL KIDNEY FUNCTION OR MILD DISEASE - GFR >OR= 60CHRONIC KIDNEY DISEASE - GFR 15 - 59RENAL FAILURE - GFR <15 Est. GFR calculation based on the MDRDstudy equation, which assumes a steadystate for creatinine. Est. GFR should notbe used for medication dosing. ID Date Data Source [id number] 11/14/2020 09:34:25 AM EST [facility] Name Value Range Interpretation Code Description Data Tere rce(s) Supporting Document(s) WBC 8.3 10*3/uL (4.1-11.0) [facility] [place] RBC 2.83 10*6/uL (4.00-5.40) L [facility] HGB 8.2 g/dL (12.0-16.0) L [facility] HCT 25.4 % (36.0-47.0) L [facility] MCV 89.8 fL (80.0-95.0) [facility] MCH 29.1 pg (27.0-32.0) [facility] MCHC 32.4 g/dL (32.0-36.0) [facility] RDW 19.4 % (10.5-14.5) H [facility] PLT 407 10*3/uL (150-450) [facility] MPV 8.3 fL (7.1-10.7) [facility] ID Date Data Source [id number] 11/14/2020 09:20:06 AM EST [facility] Name Value Range Interpretation Code Description Data Tere rce(s) Supporting Document(s) D-DIMER,SENSITIVE 1.72 mg/L (<0.50) H [facility] Per ACP, an age adjusted D-dimer cutoff forLOW RISK patients over the age of 50 isrecommended.Cutoff = age (years) X 0.01 mg/L.Normal D-dimer values rise with age and datasuggests an age adjusted D-dimer cutoff levelimproves specificity for ruling out PE. ID Date Data Source [id number] 11/14/2020 08:35:37 AM EST [facility] Name Value Range Interpretation Code Description Data Tere rce(s) Supporting Document(s) POC GLUCOSE 361 mg/dL (70-99) H [facility] NOTIFIED NURSEPERFORMED BY CLINICAL S TAFF ID Date Data Source [id number] 11/14/2020 02:49:44 AM EST [facility] Name Value Range Interpretation Code Description Data Tere rce(s) Supporting Document(s) POC GLUCOSE 295 mg/dL (70-99) H [facility] NOTIFIED NURSEPERFORMED BY CLINICAL S TAFF ID Date Data Source [id number] 11/13/2020 10:00:40 PM EST [facility] Name Value Range Interpretation Code Description Data Tere rce(s) Supporting Document(s) POC GLUCOSE 154 mg/dL (70-99) H [facility] PERFORMED BY CLINICAL STAFF ID Date Data Source [id number] 11/13/2020 09:58:00 PM EST [facility] [...] space. X7End of diagnostic report for accession: [id number] Interpreted: Santiago Amezcua MDTranscribed: 11/13/2020 09:54 PMSigned: 11/13/2020 09:58 PM Santiago Amezcua MD [facility] # [id number] BILL # [id number] Name Value Range Interpretation Code Description Data Tere rce(s) Supporting Document(s) ID Date Data Source [id number] 11/13/2020 09:58:00 PM EST [facility] DATE OF EXAM: 11/13/2020EXAMINATION/ KUSUM [...] space. X7End of diagnostic report for accession: [id number] Interpreted: Santiago Amezcua MDTranscribed: 11/13/2020 09:54 PMSigned: 11/13/2020 09:58 PM Santiago Amezcua MD [facility] # [id number] BILL # [id number] Name Value Range Interpretation Code Description Data Tere rce(s) Supporting Document(s) ID Date Data Source [id number] 11/13/2020 06:40:15 PM EST [facility] Name Value Range Interpretation Code Description Data Tere rce(s) Supporting Document(s) POC GLUCOSE 83 mg/dL (70-99) [facility] PERFORMED BY CLINICAL STAFF ID Date Data Source [id number] 11/13/2020 06:16:13 PM EST [facility] Name Value Range Interpretation Code Description Data Tere rce(s) Supporting Document(s) POC GLUCOSE 82 mg/dL (70-99) [facility] PERFORMED BY CLINICAL STAFF ID Date Data Source [id number] 11/13/2020 05:44:18 PM EST [facility] Name Value Range Interpretation Code Description Data Tere rce(s) Supporting Document(s) POC GLUCOSE 69 mg/dL (70-99) L [facility] PERFORMED BY CLINICAL STAFF ID Date Data Source [id number] 11/13/2020 05:13:24 PM EST [facility] Name Value Range Interpretation Code Description Data Tere rce(s) Supporting Document(s) POC GLUCOSE 51 mg/dL (70-99) L [facility] PERFORMED BY CLINICAL STAFF ID Date Data Source [id number] 11/13/2020 12:26:13 PM EST [facility] Name Value Range Interpretation Code Description Data Tere rce(s) Supporting Document(s) POC GLUCOSE 262 mg/dL (70-99) [facility] NOTIFIED NURSEPERFORMED BY CLINICAL S TAFF ID Date Data Source [id number] 11/13/2020 08:26:14 AM EST [facility] Name Value Range Interpretation Code Description Data Tere rce(s) Supporting Document(s) POC GLUCOSE 211 mg/dL (70-99) [facility] NOTIFIED NURSEPERFORMED BY CLINICAL S TAFF ID Date Data Source [id number] 11/13/2020 02:53:44 AM EST [facility] Name Value Range Interpretation Code Description Data Tere rce(s) Supporting Document(s) POC GLUCOSE 232 mg/dL (70-99) [facility] PERFORMED BY CLINICAL STAFF ID Date Data Source [id number] 11/12/2020 09:03:37 PM EST [facility] Name Value Range Interpretation Code Description Data Tere rce(s) Supporting Document(s) POC GLUCOSE 251 mg/dL (70-99) [facility] PERFORMED BY CLINICAL STAFF ID Date Data Source [id number] 11/12/2020 05:13:08 PM EST [facility] Name Value Range Interpretation Code Description Data Tere rce(s) Supporting Document(s) POC GLUCOSE 277 mg/dL (70-99) [facility] PERFORMED BY CLINICAL STAFF ID Date Data Source [id number] 11/12/2020 12:47:13 PM EST [facility] Name Value Range Interpretation Code Description Data Tere rce(s) Supporting Document(s) POC GLUCOSE 57 mg/dL (70-99) L [facility] PERFORMED BY CLINICAL STAFF ID Date Data Source [id number] 11/12/2020 07:49:48 AM EST [facility] Name Value Range Interpretation Code Description Data Tere rce(s) Supporting Document(s) POC GLUCOSE 246 mg/dL (70-99) [facility] PERFORMED BY CLINICAL STAFF ID Date Data Source [id number] 11/12/2020 02:44:04 AM EST [facility] Name Value Range Interpretation Code Description Data Tere rce(s) Supporting Document(s) POC GLUCOSE 75 mg/dL (70-99) [facility] PERFORMED BY CLINICAL STAFF ID Date Data Source [id number] 11/11/2020 10:50:50 PM EST [facility] Name Value Range Interpretation Code Description Data Tere rce(s) Supporting Document(s) POC GLUCOSE 118 mg/dL (70-99) [facility] NOTIFIED NURSEPERFORMED BY CLINICAL S TAFF ID Date Data Source [id number] 11/11/2020 07:06:03 PM EST [facility] Name Value Range Interpretation Code Description Data Tere rce(s) Supporting Document(s) POC GLUCOSE 387 mg/dL (70-99) [facility] PERFORMED BY CLINICAL STAFF ID Date Data Source [id number] 11/11/2020 06:14:29 PM EST [facility] Name Value Range Interpretation Code Description Data Tere rce(s) Supporting Document(s) POC GLUCOSE 419 mg/dL (70-99) HH [facility] PERFORMED BY CLINICAL STAFF ID Date Data Source [id number] 11/11/2020 02:52:53 PM EST [facility] Name Value Range Interpretation Code Description Data Tere rce(s) Supporting Document(s) POC GLUCOSE 399 mg/dL (70-99) [facility] PERFORMED BY CLINICAL STAFF ID Date Data Source [id number] 11/11/2020 12:48:46 PM EST [facility] Name Value Range Interpretation Code Description Data Tere rce(s) Supporting Document(s) POC GLUCOSE 351 mg/dL (70-99) [facility] PERFORMED BY CLINICAL STAFF ID Date Data Source [id number] 11/11/2020 11:32:34 AM EST [facility] Name Value Range Interpretation Code Description Data Tere rce(s) Supporting Document(s) POC GLUCOSE 416 mg/dL (70-99) [facility] PERFORMED BY CLINICAL STAFF ID Date Data Source [id number] 11/11/2020 10:30:00 AM EST [facility] Name Value Range Interpretation Code Description Data Tere rce(s) Supporting Document(s) SARS coronavirus 2 RNA [Presence] in Res piratory specimen by CORONA with probe detection [facility] This lab was reported by [facility]. ID Date Data Source [id number] 11/11/2020 03:56:53 PM EST [facility] Name Value Range Interpretation Code Description Data Tere rce(s) Supporting Document(s) SPECIMEN DESCRIPTION [facility] COVID19 RESULT (NDET) A [facility] THIS ASSAY AMPLIFIES AND DETECTSTHE TARG ET RNA USING REAL-TIME PCR. COMMENT [facility] LABORAT[facility] APPROVED B Y THE [place]. THE [place] FOOD[employer] DRUG ADMINISTRATION HAS NOT APPROVEDTHIS TEST. NEGATIVE RESULTS DO NOT [id number] INFECTION AND SHOULD NOT BEUSED THE SOLE BASIS FOR CLINICALDIAGNOSIS OR PATIENT MANAGEMENT DECISIONS.RESULTS READ BACK BY BRIGITTE AT 6SIR AT 3564. RESULTS EMAILED TO IC AT 1632. [id number]. FIRST TEST [facility] EM[facility]ED IN [facility] DATE OF SYMPT ONSET [facility] [place] [facility] CONGREGATE CARE SET [facility] ID Date Data Source [id number] 11/11/2020 09:05:23 AM EST [facility] Name Value Range Interpretation Code Description Data Tere rce(s) Supporting Document(s) POC GLUCOSE 270 mg/dL (70-99) H [facility] PERFORMED BY CLINICAL STAFF ID Date Data Source [id number] 11/11/2020 03:14:24 AM EST [facility] Name Value Range Interpretation Code Description Data Tere rce(s) Supporting Document(s) POC GLUCOSE 296 mg/dL (70-99) H [facility] PERFORMED BY CLINICAL STAFF ID Date Data Source [id number] 11/10/2020 10:05:27 PM EST [facility] Name Value Range Interpretation Code Description Data Tere rce(s) Supporting Document(s) POC GLUCOSE 167 mg/dL (70-99) H [facility] PERFORMED BY CLINICAL STAFF ID Date Data Source [id number] 11/10/2020 05:37:41 PM EST [facility] Name Value Range Interpretation Code Description Data Tere rce(s) Supporting Document(s) POC GLUCOSE 81 mg/dL (70-99) [facility] PERFORMED BY CLINICAL STAFF ID Date Data Source [id number] 11/10/2020 01:17:00 PM EST [facility] [...] understanding and verification. Professional interpretation performed at [facility] .End of diagnostic report for accession: [id number] Interpreted: Armando Vu MDTranscribed: 11/10/2020 01:04 PMSigned: 11/10/2020 01:17 PM Armando Vu MD [facility] # [id number] BILL # [id number] Name Value Range Interpretation Code Description Data Tere rce(s) Supporting Document(s) ID Date Data Source [id number] 11/10/2020 12:21:05 PM EST [facility] Name Value Range Interpretation Code Description Data Tere rce(s) Supporting Document(s) POC GLUCOSE 146 mg/dL (70-99) H [facility] PERFORMED BY CLINICAL STAFF ID Date Data Source [id number] 11/10/2020 07:58:19 AM EST [facility] Name Value Range Interpretation Code Description Data Tere rce(s) Supporting Document(s) POC GLUCOSE 328 mg/dL (70-99) H [facility] PERFORMED BY CLINICAL STAFF ID Date Data Source [id number] 11/10/2020 06:16:42 AM EST [facility] Name Value Range Interpretation Code Description Data Tere rce(s) Supporting Document(s) POC GLUCOSE 334 mg/dL (70-99) H [facility] PERFORMED BY CLINICAL STAFF ID Date Data Source [id number] 11/09/2020 11:59:46 PM EST [facility] Name Value Range Interpretation Code Description Data Tere rce(s) Supporting Document(s) POC GLUCOSE 173 mg/dL (70-99) H [facility] PERFORMED BY CLINICAL STAFF ID Date Data Source [id number] 11/09/2020 10:51:38 PM EST [facility] Name Value Range Interpretation Code Description Data Tere rce(s) Supporting Document(s) POC GLUCOSE 121 mg/dL (70-99) H [facility] PERFORMED BY CLINICAL STAFF ID Date Data Source [id number] 11/09/2020 10:08:53 PM EST [facility] Name Value Range Interpretation Code Description Data Tere rce(s) Supporting Document(s) POC GLUCOSE 114 mg/dL (70-99) H [facility] PERFORMED BY CLINICAL STAFF ID Date Data Source [id number] 11/09/2020 09:12:37 PM EST [facility] Name Value Range Interpretation Code Description Data Tere rce(s) Supporting Document(s) POC GLUCOSE 63 mg/dL (70-99) L [facility] PERFORMED BY CLINICAL STAFF ID Date Data Source [id number] 11/09/2020 06:01:04 PM EST [facility] Name Value Range Interpretation Code Description Data Tere rce(s) Supporting Document(s) POC GLUCOSE 87 mg/dL (70-99) [facility] NOTIFIED NURSEPERFORMED BY CLINICAL S TAFF ID Date Data Source [id number] 11/09/2020 05:32:04 PM EST [facility] Name Value Range Interpretation Code Description Data Tere rce(s) Supporting Document(s) POC GLUCOSE 60 mg/dL (70-99) L [facility] NOTIFIED NURSEPERFORMED BY CLINICAL S TAFF ID Date Data Source [id number] 11/09/2020 12:27:55 PM EST [facility] Name Value Range Interpretation Code Description Data Tere rce(s) Supporting Document(s) POC GLUCOSE 142 mg/dL (70-99) H [facility] NOTIFIED NURSEPERFORMED BY CLINICAL S TAFF ID Date Data Source [id number] 11/09/2020 08:56:18 AM EST [facility] Name Value Range Interpretation Code Description Data Tere rce(s) Supporting Document(s) SODIUM 138 mmol/L (136-145) [facility] POTASSIUM 4.2 mmol/L (3.6-5.2) [facility] CHLORIDE 104 mmol/L (100-108) [facility] CO2 28 mmol/L (22-31) [facility] ANION GAP 6 mmol/L (7-16) L [facility] UREA NITROGEN 15 mg/dL (7-24) [facility] CREATININE 0.61 mg/dL (0.60-1.00) [facility] BUN/CREAT RATIO 24.6 RATIO (10.0-20.0) H [facility] GLUCOSE 308 mg/dL (70-99) H [facility] CALCIUM 7.8 mg/dL (8.4-10.2) L [facility] GFR >60 ml/min/1.73m2 (>59) [facility] GFR ( AMER) >60 ml/min/1.73m2 (>59) [facility] GFR INTERPRETATION [facility] --NORMAL KIDNEY FUNCTION OR MILD DISEASE - GFR >OR= 60CHRONIC KIDNEY DISEASE - GFR 15 - 59RENAL FAILURE - GFR <15 Est. GFR calculation based on the MDRDstudy equation, which assumes a steadystate for creatinine. Est. GFR should notbe used for medication dosing. ID Date Data Source [id number] 11/09/2020 08:35:10 AM EST [facility] Name Value Range Interpretation Code Description Data Tere rce(s) Supporting Document(s) WBC 8.6 10*3/uL (4.1-11.0) [facility] [place] RBC 2.70 10*6/uL (4.00-5.40) L [facility] HGB 8.1 g/dL (12.0-16.0) L [facility] HCT 24.3 % (36.0-47.0) L [facility] MCV 90.1 fL (80.0-95.0) [facility] MCH 30.1 pg (27.0-32.0) [facility] MCHC 33.4 g/dL (32.0-36.0) [facility] RDW 20.2 % (10.5-14.5) H [facility] PLT 202 10*3/uL (150-450) [facility] MPV 8.7 fL (7.1-10.7) [facility] ID Date Data Source [id number] 11/09/2020 07:23:28 AM EST [facility] Name Value Range Interpretation Code Description Data Tere rce(s) Supporting Document(s) POC GLUCOSE 297 mg/dL (70-99) H [facility] NOTIFIED NURSEPERFORMED BY CLINICAL S TAFF ID Date Data Source [id number] 11/08/2020 11:09:23 PM EST [facility] Name Value Range Interpretation Code Description Data Tere rce(s) Supporting Document(s) POC GLUCOSE 253 mg/dL (70-99) H [facility] PERFORMED BY CLINICAL STAFF ID Date Data Source [id number] 11/08/2020 05:35:30 PM EST [facility] Name Value Range Interpretation Code Description Data Tere rce(s) Supporting Document(s) POC GLUCOSE 138 mg/dL (70-99) H [facility] PERFORMED BY CLINICAL STAFF ID Date Data Source [id number] 11/11/2020 03:41:00 PM EST [facility] [place] [address] [place], [place] [address]PATIENT NAME: GERALD MESA OF : 1975REPORT: CONSULTATIONPATIENT NUMBER: [id number] STATUS: IPMEDICAL RECORD NUMBER: [id number]: 01INTERNAL MEDICINE CONSULTATIONDATE OF CONSULTATION:REFERRING PHYSICIAN: BRENNAN Mcguire FOR CONSULTATION: Diabetes management.HISTORY OF PRESENT ILLNESS: Ms. Eli Mesa is a 45-olnt-gnsarnncd, who has undergone spinal fusion with instrumentation [...] Bilateral clear air entry. Abdomen: Soft, nontender. 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 [...] this patient. We will continue tofollow.DICTATED BY: FELICITA Lopezictated: 11/08/2020 15:20DT: 11/08/2020 15:23Job #: [id number]: [facility] computer generated reports are notconfirmed or authenticated unless they are signed by the providerElectronically Authenticated by:TANJA SANTIAGO MD On 11/11/2020 03:42 PM EST Name Value Range Interpretation Code Description Data Tere rce(s) Supporting Document(s) ID Date Data Source [id number] 11/08/2020 11:50:48 AM EST [facility] Name Value Range Interpretation Code Description Data Tere rce(s) Supporting Document(s) POC GLUCOSE 175 mg/dL (70-99) H [facility] PERFORMED BY CLINICAL STAFF ID Date Data Source [id number] 11/08/2020 09:18:41 AM EST [facility] Name Value Range Interpretation Code Description Data Tere rce(s) Supporting Document(s) POC GLUCOSE 250 mg/dL (70-99) H [facility] PERFORMED BY CLINICAL STAFF ID Date Data Source [id number] 11/08/2020 09:27:37 AM EST [facility] Name Value Range Interpretation Code Description Data Tere rce(s) Supporting Document(s) SODIUM 139 mmol/L (136-145) [facility] POTASSIUM 3.5 mmol/L (3.6-5.2) L [facility] CHLORIDE 105 mmol/L (100-108) [facility] CO2 28 mmol/L (22-31) [facility] ANION GAP 6 mmol/L (7-16) L [facility] UREA NITROGEN 14 mg/dL (7-24) [facility] CREATININE 0.73 mg/dL (0.60-1.00) [facility] BUN/CREAT RATIO 19.2 RATIO (10.0-20.0) [facility] GLUCOSE 313 mg/dL (70-99) H [facility] CALCIUM 8.0 mg/dL (8.4-10.2) L [facility] GFR >60 ml/min/1.73m2 (>59) [facility] GFR ( AMER) >60 ml/min/1.73m2 (>59) [facility] GFR INTERPRETATION [facility] --NORMAL KIDNEY FUNCTION OR MILD DISEASE - GFR >OR= 60CHRONIC KIDNEY DISEASE - GFR 15 - 59RENAL FAILURE - GFR <15 Est. GFR calculation based on the MDRDstudy equation, which assumes a steadystate for creatinine. Est. GFR should notbe used for medication dosing. ID Date Data Source [id number] 11/08/2020 08:56:55 AM EST [facility] Name Value Range Interpretation Code Description Data Tere rce(s) Supporting Document(s) WBC 9.8 10*3/uL (4.1-11.0) [facility] [place] RBC 2.49 10*6/uL (4.00-5.40) L [facility] HGB 7.4 g/dL (12.0-16.0) L [facility] HCT 22.1 % (36.0-47.0) L [facility] MCV 88.8 fL (80.0-95.0) [facility] MCH 29.9 pg (27.0-32.0) [facility] MCHC 33.7 g/dL (32.0-36.0) [facility] RDW 20.2 % (10.5-14.5) H [facility] PLT 180 10*3/uL (150-450) [facility] MPV 8.7 fL (7.1-10.7) [facility] ID Date Data Source [id number] 11/08/2020 07:36:28 AM EST [facility] Name Value Range Interpretation Code Description Data Tere rce(s) Supporting Document(s) POC GLUCOSE 380 mg/dL (70-99) H [facility] PERFORMED BY CLINICAL STAFF ID Date Data Source [id number] 11/08/2020 06:22:36 AM EST [facility] Name Value Range Interpretation Code Description Data Tere rce(s) Supporting Document(s) POC GLUCOSE 481 mg/dL (70-99) HH [facility] NOTIFIED NURSEPERFORMED BY CLINICAL S TAFF ID Date Data Source [id number] 11/08/2020 04:16:53 AM EST [facility] Name Value Range Interpretation Code Description Data Tere rce(s) Supporting Document(s) POC GLUCOSE 452 mg/dL (70-99) [facility] PERFORMED BY CLINICAL STAFF ID Date Data Source [id number] 11/08/2020 03:12:16 AM EST [facility] Name Value Range Interpretation Code Description Data Tere rce(s) Supporting Document(s) POC GLUCOSE 452 mg/dL (70-99) [facility] PERFORMED BY CLINICAL STAFF ID Date Data Source [id number] 11/08/2020 02:08:56 AM EST [facility] Name Value Range Interpretation Code Description Data Tere rce(s) Supporting Document(s) POC GLUCOSE 429 mg/dL (70-99) HH [facility] NOTIFIED NURSEPERFORMED BY CLINICAL S TAFF ID Date Data Source [id number] 11/07/2020 10:49:41 PM EST [facility] Name Value Range Interpretation Code Description Data Tere rce(s) Supporting Document(s) POC GLUCOSE 166 mg/dL (70-99) H [facility] PERFORMED BY CLINICAL STAFF ID Date Data Source [id number] 11/07/2020 10:49:36 PM EST [facility] Name Value Range Interpretation Code Description Data Tere rce(s) Supporting Document(s) POC GLUCOSE 169 mg/dL (70-99) H [facility] PERFORMED BY CLINICAL STAFF ID Date Data Source [id number] 11/07/2020 10:49:17 PM EST [facility] Name Value Range Interpretation Code Description Data Tere rce(s) Supporting Document(s) POC GLUCOSE 48 mg/dL (70-99) LL [facility] PERFORMED BY CLINICAL STAFF ID Date Data Source [id number] 11/07/2020 09:52:14 PM EST [facility] Name Value Range Interpretation Code Description Data Tere rce(s) Supporting Document(s) GLUCOSE 51 mg/dL (70-99) L [facility] ID Date Data Source [id number] 11/07/2020 10:49:11 PM EST [facility] Name Value Range Interpretation Code Description Data Tere rce(s) Supporting Document(s) POC GLUCOSE 32 mg/dL (70-99) LL [facility] NOTIFIED NURSEPERFORMED BY CLINICAL S TAFF ID Date Data Source [id number] 11/07/2020 08:55:28 PM EST [facility] Name Value Range Interpretation Code Description Data Tere rce(s) Supporting Document(s) POC GLUCOSE 20 mg/dL (70-99) LL [facility] NOTIFIED NURSEPERFORMED BY CLINICAL S TAFF ID Date Data Source [id number] 11/07/2020 05:33:24 PM EST [facility] Name Value Range Interpretation Code Description Data Tere rce(s) Supporting Document(s) POC GLUCOSE 151 mg/dL (70-99) H [facility] NOTIFIED NURSEPERFORMED BY CLINICAL S TAFF ID Date Data Source [id number] 11/07/2020 12:55:03 PM EST [facility] Name Value Range Interpretation Code Description Data Tere rce(s) Supporting Document(s) POC GLUCOSE 177 mg/dL (70-99) H [facility] NOTIFIED NURSEPERFORMED BY CLINICAL S TAFF ID Date Data Source [id number] 11/07/2020 08:50:48 AM EST [facility] Name Value Range Interpretation Code Description Data Tere rce(s) Supporting Document(s) POC GLUCOSE 231 mg/dL (70-99) H [facility] NOTIFIED NURSEPERFORMED BY CLINICAL S TAFF ID Date Data Source [id number] 11/07/2020 08:39:35 AM EST [facility] Name Value Range Interpretation Code Description Data Tere rce(s) Supporting Document(s) SODIUM 138 mmol/L (136-145) [facility] POTASSIUM 3.8 mmol/L (3.6-5.2) [facility] CHLORIDE 105 mmol/L (100-108) [facility] CO2 22 mmol/L (22-31) [facility] ANION GAP 11 mmol/L (7-16) [facility] UREA NITROGEN 10 mg/dL (7-24) [facility] CREATININE 0.65 mg/dL (0.60-1.00) [facility] BUN/CREAT RATIO 15.4 RATIO (10.0-20.0) [facility] GLUCOSE 233 mg/dL (70-99) H [facility] CALCIUM 8.1 mg/dL (8.4-10.2) L [facility] GFR >60 ml/min/1.73m2 (>59) [facility] GFR ( AMER) >60 ml/min/1.73m2 (>59) [facility] GFR INTERPRETATION [facility] --NORMAL KIDNEY FUNCTION OR MILD DISEASE - GFR >OR= 60CHRONIC KIDNEY DISEASE - GFR 15 - 59RENAL FAILURE - GFR <15 Est. GFR calculation based on the MDRDstudy equation, which assumes a steadystate for creatinine. Est. GFR should notbe used for medication dosing. ID Date Data Source [id number] 11/07/2020 08:17:32 AM EST [facility] Name Value Range Interpretation Code Description Data Tere rce(s) Supporting Document(s) WBC 13.7 10*3/uL (4.1-11.0) H [facility] RBC 2.70 10*6/uL (4.00-5.40) L [facility] HGB 7.6 g/dL (12.0-16.0) L [facility] HCT 23.4 % (36.0-47.0) L [facility] PATIENT TRANSFUSED MCV 86.7 fL (80.0-95.0) [facility] MCH 28.3 pg (27.0-32.0) [facility] MCHC 32.6 g/dL (32.0-36.0) [facility] RDW 20.7 % (10.5-14.5) H [facility] PLT 187 10*3/uL (150-450) [facility] MPV 8.6 fL (7.1-10.7) [facility] ID Date Data Source [id number] 11/07/2020 01:43:49 AM EST [facility] Name Value Range Interpretation Code Description Data Tere rce(s) Supporting Document(s) HCT 18.5 % (36.0-47.0) LL [facility] RESULT VERIFIED BY REPEAT TESTING.RESULT (S) CALLED TO AND READ BACK BYCHRISTIANACARE ON 6SIR ON 11.07.20 [place] [address] [id number] ID Date Data Source [id number] 11/07/2020 01:03:14 AM EST [facility] Name Value Range Interpretation Code Description Data Tere rce(s) Supporting Document(s) POC GLUCOSE 180 mg/dL (70-99) H [facility] NOTIFIED NURSEPERFORMED BY CLINICAL S TAFF ID Date Data Source [id number] 11/06/2020 09:55:11 PM EST [facility] Name Value Range Interpretation Code Description Data Tere rce(s) Supporting Document(s) POC GLUCOSE 115 mg/dL (70-99) H [facility] PERFORMED BY CLINICAL STAFF ID Date Data Source [id number] 11/06/2020 09:13:32 PM EST [facility] Name Value Range Interpretation Code Description Data Tere rce(s) Supporting Document(s) POC GLUCOSE 81 mg/dL (70-99) [facility] PERFORMED BY CLINICAL STAFF ID Date Data Source [id number] 11/06/2020 08:43:30 PM EST [facility] Name Value Range Interpretation Code Description Data Tere rce(s) Supporting Document(s) POC GLUCOSE 74 mg/dL (70-99) Lab [facility] PERFORMED BY CLINICAL STAFF ID Date Data Source [id number] 11/06/2020 08:11:24 PM EST [facility] Name Value Range Interpretation Code Description Data Tere rce(s) Supporting Document(s) POC GLUCOSE 95 mg/dL (70-99) [facility] PERFORMED BY CLINICAL STAFF ID Date Data Source [id number] 11/07/2020 06:54:00 AM EST [facility] [id number] [place], [place] [id number] NAME: GERALD MESA OF : 1975REPORT: OPERATIONPATIENT NUMBER: [id number] STATUS: IPMEDICAL RECORD NUMBER: [id number] [id number] ADMISSION: 11/06/2020DATE OF DISCHARGE:ROOM: 01DATE OF [...] is a very pleasant female status post L5-Y6iwxtvihze lumbar interbody fusion about 6 weeks ago in 08/2020. Thepatient developed progressive spondylolisthesis of L5-S1 with an L5-A2ipmlt IV spondylolisthesis. CT scan was significant for [...] screws from the previous operation and the S9tlzicix screws from the previous operation. I exposed the previoushardware. I then removed the Globus implant at L5-S1 from her originalsurgery. The set screws were removed and then the rods removed. Thebilateral L5 and S1 screws were removed. The L5 screws bilaterally wereclosely loose without any significant purchase within the bone. The A5hdxmtnm screws had fair purchase. The S1 pedicle screws were removed, Bairon increased the diameter of the pedicle screws from a 6.5 x 25 mm screw upto an 8.5 x 40 mm screw at S1 bilaterally. This was a revision of the I8aqppkua screws bilaterally. I then revised the bilateral [...] I then decorticated the L3 transverse processes, Q1qcteczetrs processes, L5 transverse processes, and sacral ala [...] andthere was no reduction from baseline.DICTATED BY: Elías Gordon, MDDictated: 11/06/2020 18:21DT: 11/06/2020 18:31Job #: [id number]: [facility] computer generated reports are not confirmed orauthenticated unless they are signed by the providerElectronically Authenticated and Edited by:ELÍAS GORDON MD On 11/07/2020 06:54 AM EST Name Value Range Interpretation Code Description Data Tere rce(s) Supporting Document(s) ID Date Data Source [id number] 11/06/2020 05:25:54 PM EST [facility] Name Value Range Interpretation Code Description Data Tere rce(s) Supporting Document(s) POC GLUCOSE 294 mg/dL (70-99) H [facility] NOTIFIED NURSEPERFORMED BY CH CLINICAL S TAFF ID Date Data Source [id number] 11/06/2020 04:36:35 PM EST [facility] Name Value Range Interpretation Code Description Data Tere rce(s) Supporting Document(s) POC GLUCOSE 383 mg/dL (70-99) H [facility] PERFORMED BY CLINICAL STAFF ID Date Data Source [id number] 11/06/2020 03:39:01 PM EST [facility] Name Value Range Interpretation Code Description Data Tere rce(s) Supporting Document(s) POC GLUCOSE 403 mg/dL (70-99) [facility] PERFORMED BY CLINICAL STAFF ID Date Data Source [id number] 11/06/2020 04:14:04 PM EST [facility] Name Value Range Interpretation Code Description Data Tere rce(s) Supporting Document(s) WBC 18.7 10*3/uL (4.1-11.0) [facility] RBC 2.95 10*6/uL (4.00-5.40) L [facility] HGB 8.1 g/dL (12.0-16.0) [facility] HCT 25.3 % (36.0-47.0) [facility] MCV 85.8 fL (80.0-95.0) [facility] MCH 27.3 pg (27.0-32.0) [facility] MCHC 31.9 g/dL (32.0-36.0) [facility] RDW 23.1 % (10.5-14.5) [facility] PLT 276 10*3/uL (150-450) [facility] MPV 9.1 fL (7.1-10.7) [facility] ID Date Data Source [id number] 11/06/2020 03:46:09 PM EST [facility] Name Value Range Interpretation Code Description Data Tere rce(s) Supporting Document(s) SODIUM 137 mmol/L (136-145) [facility] POTASSIUM 4.5 mmol/L (3.6-5.2) [facility] CHLORIDE 106 mmol/L (100-108) [facility] CO2 21 mmol/L (22-31) L [facility] ANION GAP 10 mmol/L (7-16) [facility] UREA NITROGEN 10 mg/dL (7-24) [facility] CREATININE 0.76 mg/dL (0.60-1.00) [facility] BUN/CREAT RATIO 13.2 RATIO (10.0-20.0) [facility] GLUCOSE 398 mg/dL (70-99) [facility] CALCIUM 7.6 mg/dL (8.4-10.2) L [facility] GFR >60 ml/min/1.73m2 (>59) [facility] GFR ( AMER) >60 ml/min/1.73m2 (>59) [facility] GFR INTERPRETATION [facility] --NORMAL KIDNEY FUNCTION OR MILD DISEASE - GFR >OR= 60CHRONIC KIDNEY DISEASE - GFR 15 - 59RENAL FAILURE - GFR <15 Est. GFR calculation based on the MDRDstudy equation, which assumes a steadystate for creatinine. Est. GFR should notbe used for medication dosing. ID Date Data Source [id number] 11/06/2020 02:31:50 PM EST [facility] Name Value Range Interpretation Code Description Data Tere rce(s) Supporting Document(s) POC GLUCOSE 353 mg/dL (70-99) [facility] PERFORMED BY CLINICAL STAFF ID Date Data Source [id number] 11/06/2020 02:21:44 PM EST [facility] Name Value Range Interpretation Code Description Data Tere rce(s) Supporting Document(s) POC GLUCOSE 237 mg/dL (70-99) [facility] NOTIFIED PROVIDERPERFORMED BY CLINICA L STAFF ID Date Data Source [id number] 11/06/2020 02:21:34 PM EST [facility] Name Value Range Interpretation Code Description Data Tere rce(s) Supporting Document(s) POC GLUCOSE 121 mg/dL (70-99) [facility] NOTIFIED PROVIDERPERFORMED BY CLINICA L STAFF ID Date Data Source [id number] 11/09/2020 06:48:26 AM EST [facility] SPECIMEN DESCRIPTION SITE LUMBAR DEEP 1SPECIAL REQUESTS NONECULTURE RESULTS NO ANAEROBES ISOLATEDREPORT STATUS FINAL 11/09/2020 Name Value Range Interpretation Code Description Data Tere rce(s) Supporting Document(s) ID Date Data Source [id number] 11/09/2020 06:47:52 AM EST [facility] SPECIMEN DESCRIPTION SITE LUMBAR DEEP 2SPECIAL REQUESTS NONECULTURE RESULTS NO ANAEROBES ISOLATEDREPORT STATUS FINAL 11/09/2020 Name Value Range Interpretation Code Description Data Tere rce(s) Supporting Document(s) ID Date Data Source [id number] 11/08/2020 11:35:56 AM EST [facility] SPECIMEN DESCRIPTION SITE LUMBAR DEEP 1SPECIAL REQUESTS NONEGRAM STAIN FEW (<10/LPF) WHITE BLOOD CELLS NO BACTERIACULTURE RESULTS NO GROWTHREPORT STATUS FINAL 11/08/2020 Name Value Range Interpretation Code Description Data Tere rce(s) Supporting Document(s) ID Date Data Source [id number] 11/08/2020 11:37:37 AM EST [facility] SPECIMEN DESCRIPTION SITE LUMBAR DEEP 2SPECIAL REQUESTS NONEGRAM STAIN FEW (<10/LPF) WHITE BLOOD CELLS NO BACTERIACULTURE RESULTS NO GROWTHREPORT STATUS FINAL 11/08/2020 Name Value Range Interpretation Code Description Data Tere rce(s) Supporting Document(s) ID Date Data Source [id number] 11/08/2020 12:27:13 AM EST [facility] SPEC EXP DATE 11/07/2020TEST ING SITE PERFORMED AT [address] [place] [address] [id number] NUMBER [id number] COMPONENT TYPE LEUKOPOOR RED CELLSUNIT DIVISION 00STATUS OF UNIT TRANSFUSEDTRANSFUSION STATUS OK TO TRANSFUSECROSSMATCH RESULT COMPATIBLEUNIT NUMBER [id number] COMPONENT TYPE LEUKOPOOR RED CELLSUNIT DIVISION 00STATUS OF UNIT TRANSFUSEDTRANSFUSION STATUS OK TO TRANSFUSECROSSMATCH RESULT COMPATIBLEUNIT NUMBER [id number] COMPONENT TYPE LEUKOPOOR RED CELLSUNIT DIVISION 00STATUS OF UNIT TRANSFUSEDTRANSFUSION STATUS OK TO TRANSFUSECROSSMATCH RESULT COMPATIBLE Name Value Range Interpretation Code Description Data Tere rce(s) Supporting Document(s) ID Date Data Source [id number] 11/06/2020 07:37:19 AM EST [facility] Name Value Range Interpretation Code Description Data Tere rce(s) Supporting Document(s) HEMOGLOBIN A1C @ 6.7 % (4.0-6.0) [facility] Performed using Siemens Alma immunoassa y.Care must be taken when interpreting [id number] in patients with a hemoglobin variantor decreased erythrocyte lifespan. Values 5.7 - 6.4% suggest prediabetes.Values >=6.5% are diagnostic for diabetes.REFERENCE: DIABETES CARE 2018: 41(S13-S27).PERFORMED AT [address] [facility] [address] EST [place] GLUCOSE 146 mg/dL [facility] ID Date Data Source [id number] 11/06/2020 06:17:14 AM EST [facility] Name Value Range Interpretation Code Description Data Tere rce(s) Supporting Document(s) POC GLUCOSE 172 mg/dL (70-99) [facility] PERFORMED BY CLINICAL STAFF ID Date Data Source [id number] 11/06/2020 07:40:36 AM EST [facility] Name Value Range Interpretation Code Description Data Tere rce(s) Supporting Document(s) POC GLUCOSE 226 mg/dL (70-99) [facility] PERFORMED BY CLINICAL STAFF ID Date Data Source [id number] 11/04/2020 03:54:47 PM EST [facility] PC[facility]: Eli BondsB: 1975Provider: Stanton Gordon: 11/04/2020 Reason For VisitSbear Mesa is here today for preop. Reports ongoing low back, BLE pain>R. Other DOI/DOO: chronic pain. Surgery Description: L3-S1 posterior fusion w/instrumentation,lateral arthrodesis,PLIF,L5-S1 bilateral facetectomies,revision L5-S1 Laminectomy,L3-5 Laminectomy decompression,S1 pedicle subtraction osteotomy,bilateral iliac fixation,ICBG,L5-S1 hardware removal/cage removal,revision L5-S1 pedicle screws. 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 Patient's last day worked was . Plan X-Ray I Scoliosis - 2+ views (XRays were ordered, obtained and interpreted today in theoffice. Indication: pain/dysfunction.); Status:Complete; Done: [id number] Perform:SOS14 (General); Due:[id number]; Last Updated By:Irene Yanez; 11/04/2020 3:39:40 PM;Ordered; For:Low back pain; Ordered By:Elías Gordon; You need to quit smoking.; Status:Complete; Done: [id number] Last Updated By:Lexi Lin; 11/04/2020 3:26:43 PM;Ordered; [...] L5-S1, progressive listhesis, grade 4 spinal listhesis L5-A8Kcibbrbgqbapkyyu spondylolisthesis, grade 4, cage migration, construct failure, [...] Value Range Interpretation Code Description Data Tere leonardo(s) Supporting Document(s) ID Date Data Source [id number] 11/05/2020 10:32:42 AM EST [facility] Name Value Range Interpretation Code Description Data Tere rce(s) Supporting Document(s) HEMOGLOBIN A1C @ 7.0 % (4.0-6.0) [facility] Performed using Siemens Alma immunoassa y.Care must be taken when interpreting LsJ2vonjzqve in patients with a hemoglobin variantor decreased erythrocyte lifespan. Values 5.7 - 6.4% suggest prediabetes.Values >=6.5% are diagnostic for diabetes.REFERENCE: DIABETES CARE 2018: 41(S13-S27).PERFORMED AT [address] [place] [address] EST [place] GLUCOSE 154 mg/dL [facility] ID Date Data Source [id number] 11/05/2020 10:08:22 AM EST [facility] Name Value Range Interpretation Code Description Data Tere rce(s) Supporting Document(s) WBC 8.6 10*3/uL (4.1-11.0) [facility] RBC 4.19 10*6/uL (4.00-5.40) [facility] HGB 11.1 g/dL (12.0-16.0) L [facility] HCT 36.0 % (36.0-47.0) [facility] PERFORMED AT [address] [place] [address] MCV 86.1 fL (80.0-95.0) [facility] MCH 26.5 pg (27.0-32.0) L [facility] MCHC 30.8 g/dL (32.0-36.0) L [facility] RDW 27.2 % (10.5-14.5) [facility] PLT 336 10*3/uL (150-450) [facility] MPV 9.2 fL (7.1-10.7) [facility] NEUT % 70.7 % (35.0-75.0) [facility] LYMPH % 20.1 % (16.0-52.0) [facility] MONO % 6.8 % (0.0-8.0) [facility] EOS % 2.1 % (0.0-5.0) [facility] BASO % 0.3 % (0.0-4.0) [facility] NEUT # 6.1 10*3/uL (1.8-7.7) [facility] LYMPH # 1.7 10*3/uL (1.2-4.8) [facility] MONO # 0.6 10*3/uL (0.0-0.8) [facility] Eosinophils [#/volume] in Blood by Automated count 0.2 10*3/uL (0.0-0 .5) [facility] BASO # 0.0 10*3/uL (0.0-0.2) [facility] ID Date Data Source [id number] 11/04/2020 07:54:09 PM EST [facility] SPEC EXP DATE 11/07/2020PATI ENT ABO/Rh O POSITIVEANTIBODY SCREEN NEGATIVETESTING SITE PERFORMED AT [address] [place] [address] BANK COMMENT BLOOD TYPE CONFIRMED. Name Value Range Interpretation Code Description Data Tere rce(s) Supporting Document(s) ID Date Data Source [id number] 11/05/2020 09:35:27 AM EST [facility] Name Value Range Interpretation Code Description Data Tere rce(s) Supporting Document(s) SPECIMEN DESCRIPTION [facility] STAPH SCREEN RESULTS (ONEGSA) [facility] COMMENT [facility] GENE TO DETECT STAPH AUREUS. (2) RT-P CR WAS PERFORMED FOR THE mecA AND SCCmec GENES TO DETECT METHICILLIN RESISTANCE IN STAPH AUREUS. ID Date Data Source [id number] 11/03/2020 01:40:00 PM EST [facility] Name Value Range Interpretation Code Description Data Tere rce(s) Supporting Document(s) SARS coronavirus 2 RNA [Presence] in Res piratory specimen by CORONA with probe detection [facility] This lab was ordered by [facility] and reported by [facility]. ID Date Data Source [id number] 10/29/2020 01:43:29 PM EST [facility] PCName: Eli MesaDOB: 1975Provider: Eder PoloDOS: 10/29/2020 Reason For VisitSbear Mesa is here today for Lumbar spine. Eli Mesa is an established patient here for follow up. Surgery DOS: 09/15/2020. Surgery Description: L5-S1 Posterior Interbody Fusion, L5-S1 Posterolateral Spinal Fusion, L5-S1 Prosthetic Cage Placement, L5-S1 Spinal Instrumentation, Local Bone Autograft, Right Iliac Crest Bone Graft, and L5-S1 Decompressive Laminectomies with Partial Facetectomies and Bilateral Foraminotomie. 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 History of Present IllnessStates after surgery she is doing wellDeveloped increasing pain mid- to [facility]--MRI performedLow back pain has continuedEpisodic bilateral S1 [...] extrusion and possible hardware back out Results/Data OtherMRI lumbar [facility] 08/18/18: L5- S1 spinal listhesis; right L5-S1 disc herniationMRI lumbar [facility] 08/14/2020: L5-S1 spondylolisthesis, L5-S1 disc herniation; bilateral foraminal narrowing. No sign ificant change [facility] Post[facility] changes. Reviewed in detail [...] today inthe office. Indication: pain/dysfunction.); Status:Complete; Done: [id number] Perform:SOS22; Due:[id number]; Last Updated By:Gaviota Cesar; 10/29/2020 10:37:29 AM;Ordered; For:Low back pain; Ordered By:Eder Polo; CT Scan (SOS) Referral Treatment Treatment Status: Need Information - FinancialAuthorization Requested for: [id number] Ordered Stat;For: Aftercare following surgery of the musculoskeletal system, Low back pain; Ordered By: Eder Polo Performed: Order Comments: Please schedule at [facility]. Due: [id number]; Last Updated By: Inga Rutherford; 10/29/2020 11:30:48 [...] document was dictated and electronically signed using Sponduu Speaking software. A reasonable attempt at proof [...] rce(s) Supporting Document(s) ID Date Data Source [id number] 10/21/2020 03:34:00 PM EST [facility] Name Value Range Interpretation Code Description Data Tere rce(s) Supporting Document(s) SARS coronavirus 2 RNA [Presence] in Res piratory specimen by CORONA with probe detection [facility] This lab was ordered by [facility] a nd reported by [facility]. ID Date Data Source [id number] 10/21/2020 01:22:00 PM EST [facility] ([facility] [...] [facility] ID Date Data Source [id number] 10/21/2020 11:15:00 AM EST [facility] ([facility] [...] [facility] ID Date Data Source [id number] 10/21/2020 10:37:00 AM EST [facility] Name Value Range Interpretation Code Description Data Tere rce(s) Supporting Document(s) Lipoprotein lipase [Enzymatic activity/volume] in Serum or Plasm a 25 U/L 73-393 [facility] ID Date Data Source [id number] 10/21/2020 10:37:00 AM EST [facility] ([facility] [...] [facility] ID Date Data Source [id number] 10/21/2020 10:37:00 AM EST [facility] ([facility] [...] [facility] ID Date Data Source [id number] 10/21/2020 10:31:00 AM EST [facility] ([facility] [...] [facility] ID Date Data Source [id number] 10/19/2020 09:08:01 PM EST [facility] PCName: Eli MesaDOB: 1975Provider: Dk [...] patient's pain is managed by Dr Johnson. 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 History of Present IllnessPatient is a 45-year-old female presents to the office with a chief complaint of constant right-sided low back pain with constant radiating pain in the right lower extremity. Recent exacerbation without injury. She is status post L5-S1 laminectomy/fusion on 09/15/2020. Evaluated at [facility] where MRI was performed. Utilizing tizanidine and gabapentin. Denies any signs of infection. AssessmentLow back painRight lumbar radiculitis Plan Start: Diclofenac Sodium 75 MG Oral Tablet Delayed Release; 1 po BID MDD:2 Rx By: Brenton Napoles; Dispense: 0 Days ; #:60 Tablet; Refill: 1;For: Low back pain; PHIL = N; Verified Transmission to [facility] #13; Last Updated By: DxTerity; 10/14/2020 2:33:52 PM Renew: HYDROcodone-Acetaminophen 7.5-325 MG Oral Tablet; TAKE 1 TO 2 TABLETSEVERY 6 HOURS NEEDED FOR PAIN. Do not exceed more than6 tablets per 24hr MDD:6 Rx By: Brenton Napoles; Dispense: 0 Days ; #:60 Tablet; Refill: 0;For: Aftercare following surgery of the musculoskeletal system, Low back pain; PHIL = N; Verified Transmission to [facility] #13; Msg to Pharmacy: Reference #:[id number]; Last Updated By: DxTerity; 10/14/2020 4:04:01 PM Patient is status post [...] document was dictated and electronically signed using Ikanos software. A reasonable attempt at proof reading has been made to minimize errors. Please call with any questions. Signatures Elect ronically signed by : Cailin Wolfe; Oct 19 2020 3:38PM EST (Author) Electronically signed by : Eder Polo M.D.; Oct 19 2020 9:07PM EST Name Value Range Interpretation Code Description Data Tere rce(s) Supporting Document(s) ID Date Data Source [id number] 10/08/2020 07:03:00 PM EST [facility] ([facility] [...] pathogens. DISCLAIMER: Testing was performed using the [facility] SARS-CoV-2 test. This test was developed and its performance characteristics determined by [facility]. This test has not been FDA cleared [...] or revoked sooner. ID Date Data Source [id number] 10/08/2020 07:03:00 PM EST [facility] ([facility] [...] pathogens. DISCLAIMER: Testing was performed using the [facility] SARS-CoV-2 test. This test was developed and its performance characteristics determined by [facility]. This test has not been FDA cleared [...] [facility] ID Date Data Source [id number] 10/08/2020 06:17:00 PM EST [facility] Name Value Range Interpretation Code Description Data Tere rce(s) Supporting Document(s) Glucose [Mass/volume] in Capillary blood by Glucometer 275 mg/dL 70- 105 [facility] ID Date Data Source [id number] 10/08/2020 04:55:00 PM EST [facility] Name Value Range Interpretation Code Description Data Tere rce(s) Supporting Document(s) Glucose [Mass/volume] in Capillary blood by Glucometer 254 mg/dL 70- 105 [facility] ID Date Data Source [id number] 10/08/2020 02:20:00 PM EST [facility] Name Value Range Interpretation Code Description Data Tere rce(s) Supporting Document(s) Appearance, Urine RFX Laboratory test result [facility] Specific [place] Ur Auto RFX 1.023 1.002-1.035 [facility] Color, Urine RFX Laboratory test result [facility] PH,Urine RFX 6.0 units 5.0-9.0 [facility] Protein, Urine Auto RFX Laboratory test result [facility] Glucose, Urine (Ua) Auto RFX [...] [facility] ID Date Data Source [id number] 10/08/2020 02:10:00 PM EST [facility] Name Value Range Interpretation Code Description Data Tere rce(s) Supporting Document(s) Glucose [Mass/volume] in Capillary blood by Glucometer 388 mg/dL 70- 105 [facility] ID Date Data Source [id number] 10/08/2020 12:55:00 PM EST [facility] Name Value Range Interpretation Code Description Data Tere rce(s) Supporting Document(s) White Blood Count 12.8 10 [...] 10 150-450 [facility] Storey % 5.1 % 0.0-5.0 [facility] (Mary ruvalcaba [...] 10 1.5-5.0 [facility] Storey # 0.7 10 0.0-0.8 [facility] Neutrophils # 11.0 10 1.5-8.5 [facility] Eos # 0.0 10 0.0-0.5 [facility] Baso # 0.1 10 0.0-0.2 [facility] ID Date Data Source [id number] 10/08/2020 12:55:00 PM EST [facility] ([facility] [...] [facility] ID Date Data Source [id number] 10/08/2020 12:55:00 PM EST [facility] Name Value Range Interpretation Code Description Data Tere e(s) Supporting Document(s) Ast/Sgot 8 U/L 7-37 [facility] Bilirubin,Total 0.4 mg/dL 0.2-1.0 [facility] Alt/SGPT 14 U/L 12-78 [facility] Alkaline Phosphatase 112 U/L 45-117 [facility] ([facility] Bilirubin,Direct Laboratory test result 0.0-0.2 [facility] ([facility] Total Protein 8.5 GM/DL 6.4-8.2 [facility] Albumin 3.4 GM/DL 3.2-5.2 [facility] ([facility] Albumin/Globulin Ratio 0.7 1.2-2.2 [facility] ID Date Data Source [id number] 10/08/2020 12:55:00 PM EST [facility] ([facility] [...] Little GFR Left</content>
<content>ESRD GFR <15 on RADIO TELEVISION ANNOUNCER</content>
<content></content> Chloride Level 97 meq/L 98-107 [facility] Carbon Dioxide Level 21 meq/L 21-32 [facility] ([facility] Anion Gap 15 meq/L 8-16 [facility] ([facility] Calcium Level 9.4 mg/dL 8.5-10.1 [facility] ID Date Data Source [id number] 10/08/2020 12:55:00 PM EST [facility] ([facility] [...] monitoring the treatment of cancer patients. Siemens Alma methodology. ID Date Data Source [id number] 10/08/2020 12:55:00 PM EST [facility] Name Value Range Interpretation Code Description Data Tere rce(s) Supporting Document(s) Hemoglobin A1c 7.1 % [facility] <content>REFERENCE RANGES:</content><br/ ><content></content>
<content><=5.6% NORMAL</content>
<content>5.7-6.4% SUGGESTS IMPAIRED GLUCOSE METABOLISM/PREDIABETIC</content>
<content>>= 6.5% ABNORMAL</content>
<content></content> Estimated Average Glucose 157 mg/dL 60-110 [facility] ID Date Data Source [id number] 10/08/2020 12:55:00 PM EST [facility] Name Value Range Interpretation Code Description Data Tere rce(s) Supporting Document(s) Phosphate [Moles/volume] in Serum or Plasma 3.3 mg/dL 2.5-4.9 [facility] Magnesium [Mass/volume] in Serum or Plasma 1.8 mg/dL 1.8-2.4 [facility] ID Date Data Source [id number] 10/08/2020 12:55:00 PM EST [facility] Name Value Range Interpretation Code Description Data Tere rce(s) Supporting Document(s) Iron (Fe) 18 ug/dL 50-170 [facility] ([facility] Total Iron Binding Capacity 407 ug/dL 250-450 [facility] Percent Saturation 4.4 % 13.2-45.0 [facility] ([facility] ID Date Data Source [id number] 10/08/2020 12:55:00 PM EST [facility] Name Value Range Interpretation Code Description Data Tere rce(s) Supporting Document(s) Ferritin [Mass/volume] in Serum or Plasma 20 ng/mL 8-252 [facility] ID Date Data Source [id number] 10/08/2020 12:13:00 PM EST [facility] Name Value Range Interpretation Code Description Data Tere rce(s) Supporting Document(s) Glucose [Mass/volume] in Capillary blood by Glucometer 419 mg/dL 70- 105 [facility] ID Date Data Source [id number] 10/06/2020 05:44:00 PM EST [facility] ([facility] Hernandes [...] Little GFR Left</content>
<content>ESRD GFR <15 on RADIO TELEVISION ANNOUNCER</content>
<content></content> Chloride Level 102 meq/L 98-107 [facility] [...] [facility] ID Date Data Source [id number] 10/06/2020 05:44:00 PM EST [facility] ([facility] Name Value Range Interpretation Code Description Data Tere rce(s) Supporting Document(s) C reactive protein [Mass/volume] in Serum or Plasma by High sensitivity method 0.85 mg/dL 0.00-0.30 [facility] ([facility] ID Date Data Source [id number] 10/06/2020 05:44:00 PM EST [facility] ([facility] Name Value Range Interpretation Code Description Data Tere e(s) Supporting Document(s) Red Blood Count 3.70 10 [...] % 0.0-1.0 [facility] ([facility] Storey % 5.7 % 0.0-5.0 [facility] ([facility] Neutrophils # 6.1 10 1.5-8.5 [facility] Nucleated Red Blood Cell % 0.0 % 0-0 [facility] ([facility] Immature Granulocyte % 0.3 % 0-3.0 [facility] ([facility] Lymph # 1.8 10 1.5-5.0 [facility] ([facility] Eos # 0.2 10 0.0-0.5 [facility] ([facility] Storey # 0.5 10 0.0-0.8 [facility] ([facility] Baso # 0.2 10 0.0-0.2 [facility] ([facility] ID Date Data Source [id number] 10/06/2020 05:44:00 PM EST [facility] ([facility] Name Value Range Interpretation Code Description Data Tere rce(s) Supporting Document(s) Erythrocyte sedimentation rate by 2H Westergren method 70 mm/hr 0-2 0 [facility] ([facility] ID Date Data Source [id number] 10/11/2020 05:12:57 PM EST [facility] PCName: Eli MesaDOB: 1975Provider: Dk Napoles: 09/28/2020 Reason For VisitSbear Mesa is an [...] patient's pain is managed by Dr Johnson. 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 Patient is not working at this time [...] pain; PHIL = N; Verified Transmission to [facility] #13; Last Updated By: DxTerity; 09/28/2020 2:43:35 PM Renew: HYDROcodone-Acetaminophen 5-325 MG Oral Tablet; TAKE 1-2 TABLETSEVERY 4 HOURS NEEDED FOR POSTOP PAIN, DO NOT EXCEEDMAX DAILY DOSE OF 8 TABLETS. MDD:8 Rx By: Brenton Napoles; Dispense: 0 Days ; #:80 Tablet; Refill: 0;For: Aftercare following surgery of the musculoskeletal system, Low back pain; PHIL = N; Verified Transmission to [facility] #13; Msg to Pharmacy: Reference #:[id number]; Last Updated By: DxTerity; 09/28/2020 4:18:45 PM X-Ray I Lumbosacral - [...] document was dictated and electronically signed using Ikanos software. A reasonable attempt at proof reading has been made to minimize errors. Please call with any questions. Signatures Electronically signed by : Cailin Wolfe; Oct 09 2020 9:32PM EST (Author) Electronically signed by : Eder Polo M.D.; Oct 11 2020 5:12PM EST Name Value Range Interpretation Code Description Data Tere rce(s) Supporting Document(s) ID Date Data Source [id number] 09/17/2020 09:07:59 PM EDT [facility] NT INFORMATIONPatient MRN Name Date of Age Gend*PT [id number] Eli Mesa 1975 45 years F IPPT Location Admission Date/Time Visit ID Attending [id number] 09/15/20 0524 --- --- EPI ID CSN Admitting Provider [id number] Eder Polo MD([id number]) Attestation signed by Eder Polo MD at 09/17/2020 9:07 PMSignature: FELICITA Hartate: September 17, 2020Time: 9:07 PM ORTHOPEDIC DISCHARGE SUMMARYPatient Name: Eli Mesa of : 1975 Age 45 yearsPrimary Physician: MARY HERNANDES MD PCP Tadwchdvq Date: 09/15/2020 Discharge Date: 09/17/2020Admission Provider: Eder Polo MD Discharge Provider: Ani Mcmullen Diagnoses:Principal Problem: Spondylolisthesis of lumbosacral regionActive Problems: [...] details.Discharge disposition: [facility] home in stable condition.Discharge [...] 242 (H) 09/16/2020Significant Imaging:noneConsults:noneSignature: Javier Mcm[phone]: September 17, 2020Time: 7:43 AM Name Value Range Interpretation Code Description Data Tere rce(s) Supporting Document(s) ID Date Data Source [id number] 09/17/2020 09:43:58 AM EDT [facility] Name Value Range Interpretation Code Description Data Tere rce(s) Supporting Document(s) POC NOVA GLU 220 mg/dL (70-99) H [facility] [place] [facility] CLINICAL STAFF ID Date Data Source [id number] 09/16/2020 05:30:06 PM EDT [facility] Name Value Range Interpretation Code Description Data Tere rce(s) Supporting Document(s) POC NOVA GLU 159 mg/dL (70-99) H [facility] [place] [facility] CLINICAL STAFF ID Date Data Source [id number] 09/16/2020 02:24:04 PM EDT [facility] Name Value Range Interpretation Code Description Data Tere rce(s) Supporting Document(s) POC NOVA GLU 243 mg/dL (70-99) H [facility] [place] [facility] CLINICAL STAFF ID Date Data Source [id number] 09/16/2020 09:41:27 AM EDT [facility] Name Value Range Interpretation Code Description Data Tere rce(s) Supporting Document(s) POC NOVA GLU 187 mg/dL (70-99) H [facility] [place] [facility] CLINICAL STAFF ID Date Data Source [id number] 09/16/2020 06:01:04 AM EDT [facility] Name Value Range Interpretation Code Description Data Tere rce(s) Supporting Document(s) SODIUM 137 mmol/L (136-145) [facility] POTASSIUM 4.0 mmol/L (3.6-5.2) [facility] CHLORIDE 103 mmol/L (100-108) [facility] CO2 25 mmol/L (22-31) [facility] ANION GAP 9 mmol/L (7-16) [facility] UREA NITROGEN 9 mg/dL (7-24) [facility] CREATININE 0.72 mg/dL (0.60-1.00) [facility] BUN/CREAT RATIO 12.5 RATIO (10.0-20.0) [facility] GLUCOSE 242 mg/dL (70-99) H [facility] CALCIUM 7.9 mg/dL (8.4-10.2) L [facility] GFR >60 ml/min/1.73m2 (>59) [facility] GFR ( AMER) >60 ml/min/1.73m2 (>59) [facility] GFR INTERPRETATION [facility] --NORMAL KIDNEY FUNCTION OR MILD DISEASE - GFR >OR= 60CHRONIC KIDNEY DISEASE - GFR 15 - 59RENAL FAILURE - GFR <15 Est. GFR calculation based on the MDRDstudy equation, which assumes a steadystate for creatinine. Est. GFR should notbe used for medication dosing. ID Date Data Source [id number] 09/16/2020 05:36:10 AM EDT [facility] Name Value Range Interpretation Code Description Data Tere rce(s) Supporting Document(s) HCT 24.5 % (36.0-47.0) L [facility] ID Date Data Source [id number] 09/16/2020 01:11:20 AM EDT [facility] Name Value Range Interpretation Code Description Data Tere rce(s) Supporting Document(s) POC NOVA GLU 267 mg/dL (70-99) H [facility] [place] [facility] CLINICAL STAFF ID Date Data Source [id number] 09/15/2020 10:09:14 PM EDT [facility] Name Value Range Interpretation Code Description Data Tere rce(s) Supporting Document(s) POC NOVA GLU 150 mg/dL (70-99) H [facility] [place] [facility] CLINICAL STAFF ID Date Data Source [id number] 09/15/2020 04:11:02 PM EDT [facility] Name Value Range Interpretation Code Description Data Tere rce(s) Supporting Document(s) POC NOVA GLU 176 mg/dL (70-99) H [facility] [place] [facility] CLINICAL STAFF ID Date Data Source [id number] 09/15/2020 12:50:48 PM EDT [address] [address]Fpoeojs Name: ELI MESAB: 1975Sex: FOrdering Provider: EDER POLOAuthorishelton Prov: EDER POLOReflissa Provider: Procedure Performed: XR OR SPINE LUMBAR CONTINUATIONExam Date: 09/15/2020 12:44MRN: [id number] Number: [id number] Class: InpatientAccount #: [id number] for Exam: Herniated nucleus pulposus, L5-S1 [M51.27]Spondylolisthesis, lumbosacral region [M43.17]Low back pain [M54.5]Technique: Fluoroscopy with no digital spot images obtained.Comparison: Prior radiographs performed earlier.Findings: Sequential small blxgd-gi-upjl images were obtained during posterior fusion at L5-S1. Sequential images show placement of pedicle screws. Interbody spacer is in satisfactory position. Anterolisthesis of L5 on S1 is again noted.IMPRESSION: Posterior fusion L5-S1 as above.Report electronically signed by: JESICA LAUGHLIN On 09/15/2020 12:50 PMWorkstation ID: [id number] - [id number] Name Value Range Interpretation Code Description Data Tere rce(s) Supporting Document(s) ID Date Data Source [id number] 09/15/2020 12:37:02 PM EDT [facility] Name Value Range Interpretation Code Description Data Tere rce(s) Supporting Document(s) POC NOVA GLU 357 mg/dL (70-99) H [facility] [place] [facility] CLINICAL STAFF ID Date Data Source [id number] 09/15/2020 11:34:01 AM EDT [facility] NT INFORMATIONPatient MRN Name Date of Age Gend*PT [id number] Eli Mesa 1975 45 years F IPPT Location Admission Date/Time Visit ID Attending ProviderPERIOP POOL 09/15/20 0524 --- Eder Polo MD([id number]) EPI ID CSN Admitting Provider [id number] Eder Polo MD([id number])Operative ReportPatient Name: Eli Mesa of : 1975 Age 45 yearsPrimary Physician: MARY HERNANDES MD PCP Sbqc of Surgery: 09/15/2020Diagnostic InformationPre-Op Diagnosis: L5-S1 spondylolisthesis; lumbar radiculopathyPost- Op Diagnosis: SameProcedure(s) Procedure(s):LUMBAR 5 SACRAL 1 LAMINECTOMY WITH FORAMINOTOMIES INTER BODY FUSION CAGEPLACEMENT, INSTRUMENTATION, ILIAC CREST BONE GRAFT, LOCAL BONE GRAFT (N/A)Surgical StaffSurgeon: MARGARETH Harturgical Staff: OR College Director: Ivette Guardado RNRadiology Tech: Candido Pollock Relief College Director: Isabel Swain RNOR Relief Scrub: Ivette Diane; Riya Black Scrub Person: Owen Haleurophysiology Tech: MARGARETH Colvinurgical Film Archivist: KUN Warnerf Home Inspector is a Physician's Hat Block Bench Hand (WARREN), the Orthopedic Resident wasnot availableAnesthesiaAnesthesia Staff: Anesthesiologist: YINKA SchroederRNA: Sarah Thorne CRNAStudent Nurse Forensic Photographer: Clay Menesesesthesia: *Anesthesia ServicesOperative Description Procedure: 1. [...] Weiner catheter was placed. Next rolled onto theckson table in the prone position on the [...] placed in the pedicles of L5 and O7rliwapxgnip. Checked with C-arm and noted to be [...] and broughtto recovery room stable conditionOperative InformationSpecimen(s): @[email or web address]@[facility]/Implants:Implant Name Type Inv. Item Serial No. Room Service Attendant Lot No. LRB No. UsedCREO DLX THREADED [...] rce(s) Supporting Document(s) ID Date Data Source [id number] 09/15/2020 11:58:27 AM EDT [facility] Name Value Range Interpretation Code Description Data Tere rce(s) Supporting Document(s) POC NOVA GLU 365 mg/dL (70-99) H [facility] [place] [facility] CLINICAL STAFF ID Date Data Source [id number] 09/15/2020 03:34:48 PM EDT [facility] Name Value Range Interpretation Code Description Data Tere rce(s) Supporting Document(s) POC NOVA GLU 266 mg/dL (70-99) H [facility] [place] [facility] CLINICAL STAFF ID Date Data Source [id number] 09/15/2020 09:12:45 AM EDT [address] [address]Qaalmqc Name: ELI MESAB: 1975Sex: FOrdering Provider: EDER POLOAuthorizing Prov: EDER POLOReferrmartin Provider: Procedure Performed: XR OR SPINE LUMBARExam Date: 09/15/2020 09:07MRN: [id number] Number: [id number] Class: InpatientAccount #: [id number] for Exam: Herniated nucleus pulposus, L5-S1 [M51.27]Spondylolisthesis, [...] JESICA LAUGHLIN On 09/15/2020 9:12 AMWorkstation ID: [id number] - [id number] Name Value Range Interpretation Code Description Data Tere rce(s) Supporting Document(s) ID Date Data Source [id number] 09/15/2020 03:34:48 PM EDT [facility] [place] Name Value Range Interpretation Code Description Data Tere rce(s) Supporting Document(s) POC NOVA GLU 185 mg/dL (70-99) H [facility] [place] PERFOR[facility] BY [facility] CLINICAL STAFF ID Date Data Source [id number] 09/15/2020 08:57:19 AM EDT [address] [address]Ffirfet Name: ELI BONDSB: 1975Sex: FOrdering Provider: EDER ALEJOEFANOAuthorizing Prov: EDER BURKANOReferrmartin Provider: Procedure Performed: XR OR SPINE LUMBAR CONTINUATIONExam Date: 09/15/2020 08:47MRN: [id number] Number: [id number] Class: InpatientAccount #: [id number] for Exam: Herniated nucleus pulposus, L5-S1 [M51.27]Spondylolisthesis, [...] JESICA LAUGHLIN On 09/15/2020 8:57 AMWorkstation ID: [id number] - [id number] Name Value Range Interpretation Code Description Data Tere rce(s) Supporting Document(s) ID Date Data Source [id number] 09/15/2020 03:34:48 PM EDT [facility] [place] Name Value Range Interpretation Code Description Data Tere rce(s) Supporting Document(s) POC NOVA GLU 175 mg/dL (70-99) H [facility] [place] [facility] CLINICAL STAFF ID Date Data Source [id number] 09/15/2020 07:50:05 AM EDT [facility] NT INFORMATIONPatient MRN Name Date of Age Gend*PT [id number] Eli Mesa Lizeth 1975 45 years F SDAPT Location Admission Date/Time Visit ID Attending Provider --- --- --- --- EPI ID CSN Admitting Provider [id number] ---AirwayPatient location during procedure: ORUrgency: electiveDifficult airway: [...] cmPlacement verified by: chest auscultation and + [id number]: equal breath sounds bilateralGrade view: grade I - full view of glottis Name Value Range Interpretation Code Description Data Tere rce(s) Supporting Document(s) ID Date Data Source [id number] 09/15/2020 06:49:25 AM EDT [facility] Name Value Range Interpretation Code Description Data Tere rce(s) Supporting Document(s) POC NOVA GLU 133 mg/dL (70-99) H [facility] [place] [facility] CLINICAL STAFF ID Date Data Source [id number] 09/15/2020 06:35:55 AM EDT [facility] Name Value Range Interpretation Code Description Data Tere rce(s) Supporting Document(s) POC NOVA GLU 116 mg/dL (70-99) H [facility] [place] [facility] CLINICAL STAFF ID Date Data Source [id number] 09/15/2020 06:26:12 AM EDT [facility] NT INFORMATIONPatient MRN Name Date of Age Gend*PT [id number] Eli Mesa 1975 45 years F SDAPT Location Admission Date/Time Visit ID [facility] 09/15/20 0524 --- Eder Polo MD([id number]) EPI ID CSN Admitting Provider [id number] Eder Polo MD([id number])Pre-op note/discusson/H&P review:Long discussion today.Options were reviewedProcedure was reviewedRisks/potential complications were reviewedSteprenetta Mesa wishes to proceed with surgeryNo guarantees givenPlease refer to the patient's H&P completed within 30 days prior to admissionfor details.I have reviewed the patient's H&P and there are no significant changes in thepatient's history nor physical exam.--Eder Polo MD Name Value Range Interpretation Code Description Data Tere rce(s) Supporting Document(s) ID Date Data Source [id number] 09/15/2020 06:17:51 AM EDT [facility] Name Value Range Interpretation Code Description Data Tere rce(s) Supporting Document(s) POC NOVA GLU 87 mg/dL (70-99) [facility] [place] [facility] CLINICAL STAFF ID Date Data Source [id number] 09/15/2020 06:50:25 AM EDT [facility] Name Value Range Interpretation Code Description Data Tere rce(s) Supporting Document(s) POC [facility] <5.0 IU/L [facility] INTERPRETATION:<5.0 NEGATIVE5.0- 25.0 INDETERMINATE>25.0 POSITIVELEVELS BETWEEN 5 AND 25 IU/L MAY INDICATEEARLY AND SHOULD BE REPEATED YAMEL BLOOD SAMPLE AFTER 48 HOURS.PERFORMED BY [facility] CLINICAL STAFF ID Date Data Source [id number] 09/15/2020 06:04:58 AM EDT [facility] Name Value Range Interpretation Code Description Data Tere rce(s) Supporting Document(s) POC NOVA GLU 120 mg/dL (70-99) H [facility] [place] PERFORMED BY [facility] CLINICAL STAFF ID Date Data Source [id number] 09/15/2020 05:54:25 AM EDT [facility] Name Value Range Interpretation Code Description Data Tere rce(s) Supporting Document(s) POC NOVA GLU 37 mg/dL (70-99) LL [facility] [place] PERFORMED BY [facility] CLINICAL STAFF ID Date Data Source [id number] 09/10/2020 10:24:00 AM EDT [facility] Name Value Range Interpretation Code Description Data Tere rce(s) Supporting Document(s) SARS coronavirus 2 RNA [facility] This lab was ordered by [facility] and reported by [facility]. ID Date Data Source [id number] 09/11/2020 12:07:56 PM EDT [facility] Name Value Range Interpretation Code Description Data Tere rce(s) Supporting Document(s) SARS-COV-2 CORONA [facility] Not DetectedReference range: Not Detecte d This nucleic acid amplification test was developed and its performance characteristics determined by [facility]. Nucleic acid amplification tests include PCR and [...] detected) result in this assay. Performed At: [facility] [address] [place] [address] [id number] Raymundo Valero MD Ph:[phone] ID Date Data Source [id number] 09/07/2020 03:35:13 PM EDT [facility] Name Value Range Interpretation Code Description Data Tere rce(s) Supporting Document(s) [facility] WWKSIo0xSeHWJyTwd5YzBuZfZRQcZI8yyfe8C4I9nEQrR7LtlJPnc7ctF9XeQ7ZgWHEtJEZNKC6NbFCt jb2 [file] +binding cutter/P/Pxwgn4+M/GTLgo5oHMQD+nnM0s/aIznQtsKEkUhRCFyzfhTgOmCwoXDgMVpFXIKpg5splySbm [file] akuU+jk1RpCeX2mA2zLdul3k2n+bilingual patient support caseworker/2hoh6iuxdW/LW1c3CRMHtMk632p9u8PpijjhVU1b2r2pnn5Scc jakJupeysKb4ZtfYp3UiQp9tvzxjtDjccTtEry7us6 MSeXK9rHQrdOIVoe0/9NwK0m0P141Ny/f2ffkFAAjPXjddlQYoOH4WmWG3Gk8g3t3L32FdrG42fnnMrw dM7zgM4Vxz3dGPZGBaAK7hcb+0c2lpiYnJzg6lh9S6+C1spTz6m+iaUNUww6nT3Z+659apgvlNyxY7qO 7vuoxkQq3jzP9e8uL5oeWHANyI+MY4hehZet+vO82q Nohemi/cu1NeQRfvMc8zFK1vIcVbaFI1mkerbmv6phEIktnmv+M5dDu+ISI1M4oun3unCUE/Sa6Gp1vKtQC [file] 6++4U0bUK8KKTv9xKj7vMgnp82/p1d58A82lt2j8ih Z72d0T+1ezl/86c6xkwH/UEjsXlOyXb9rxcD6qvaBiZ61UgUbM7ii/W4Rsbd09dUg+g9NDGZtDcr3qro cEKr5LgHsTNYjjsMPl0mp6oiq3ibt01yJB/a6p/SvX///KjX7ef+SV7M2J/lvGeEFcC40f+5/b1b/My/ 3zm/yXebl/bqD/Mi/74ITTfBtbQ24e+6nqp0Q9ygIt tm8FauIpv+vj2bF/4DcyGatv2Tcr4z4/x/HTKVer2es/a9wh7P5E/g30b6B/A+UG+tsp4hksNZhs3C2O VcsV65w/U7/S/35oJ3WTgDI8o0o4VC4C19Sc/F8MVrcw8tbHjdcwVk1c5fjK6QJQgnkma3ql6USFs9O7 3CmVa+o7YlbGiLTbOX1h09Cp0Up257diMDkxg7buaS n/auuZs/5mfu+hSc57WkaM1xd2Z0j13YROu3pOLsSVMfqVI/bNquhNgnes1v0hpT0kCJ9eiI/Tn14bhh Jl3zJTys1t2enk5npiW7vxYsAXcLhuyb2pT1SH3jWEwLWVDTc0Xa94NEvd2jQlbyzxr+eyqJxTC/JqTQ NGuXMAT+EZ6DDPDFTonAsN56agdTjvLvG4NA9IgRne BxF17G4sNoXiwDYxop9xLwvNfSfRdc4097D/L+tEUfoIjx0Ztv+V5KUtuq9F8kqrD2fvwCVV0apziZ8y zQG06BobozVvytTRrhVCirqybQAt6Ezadou48PDCLNsU4RjduqZFtTuox16+Do//Mi/3z3fxX+blzr3K c+3T+5f9evEv+vRiB67+6vw4jG6p0uw1f/0r/f85x9 H7j7yK/H/tx45/wPl5g25y/zIv9/tbtbOe+ZWrdfPc8/SLVfmXebl/sTv/Yb48bfuutgzud/a/zMv9c5 b9j1l8cwgDbO+4EmrWxavnXWrYyuO34ntkYbxl592nkJ55uAhaqcMXncUfsGRkteOv1gBcLzzcE0/fjh eYZy9WGq98gZkHaK7oi7+bow3ydQO0e5x2UYvFV+bilingual patient support caseworker [file] nuJrLNBdWAKDPp0Uq889IEBwHHJBXdn+XzbzeMGlpJfdIRNLPFZ4MdyWRCJIW1D= ID Date Data Source [id number] 09/07/2020 03:00:44 PM EDT [facility] NT INFORMATIONPatient MRN Name Date of Age Gend*PT [id number] BalajiJakecliff Stanley 1975 45 years F OPPT Location Admission Date/Time Visit ID Attending Provider --- --- --- Eder Polo MD([id number]) EPI ID CSN Admitting Provider [id number] Eder Polo MD([id number])HISTORY PHYSICALName: Eli J Balaji : 1975 Sex: female Care Provider: MARY [...] mouth 2 (two) times a dayHistorical Provider, MDmeloxicam (MOBIC) 15 MG tablet Take 15 mg by mouth daily 09/07/20 HistoricalProvider, MDSocial HistoryTobacco Use Smoking status: Current Every Day [...] warm and dry.HEENT: Head is normocephalic, atraumatic. [place] conjunctivae. Anicteric sclerae.Pupils are equal, round, reactive [...] anticipated.ALLERGIES:Patient has no known drug allergies.09/07/2020 3:00 PMSally MD Prachi Name Value Range Interpretation Code Description Data Tere rce(s) Supporting Document(s) ID Date Data Source [id number] 09/07/2020 09:50:22 PM EDT [facility] Name Value Range Interpretation Code Description Data Tere rce(s) Supporting Document(s) HEMOGLOBIN A1C @ 7.7 % (4.0-6.0) H [facility] Performed using Siemens Alma immunoassa y.Care must be taken when interpreting GyT4nbrfxajy in patients with a hemoglobin variantor decreased erythrocyte lifespan. Values 5.7 - 6.4% suggest prediabetes.Values >=6.5% are diagnostic for diabetes.REFERENCE: DIABETES CARE 2018: 41(S13-S27). EST AVERAGE GLUCOSE 174 mg/dL [facility] Luc[facility] ID Date Data Source [id number] 09/07/2020 09:48:42 PM EDT [facility] SPEC EXP DATE 09/16/2020PATI ENT ABO/Rh O POSITIVEANTIBODY SCREEN NEGATIVETESTING SITE PERFORMED AT [address] [place] [id number] BANK COMMENT BLOOD TYPE CONFIRMED. Name Value Range Interpretation Code Description Data Tere rce(s) Supporting Document(s) TYPE AND SCREEN [facility] ID Date Data Source [id number] 09/07/2020 07:31:58 PM EDT [facility] Name Value Range Interpretation Code Description Data Tere rce(s) Supporting Document(s) SODIUM 138 mmol/L (136-145) [facility] POTASSIUM 4.3 mmol/L (3.6-5.2) [facility] CHLORIDE 104 mmol/L (100-108) [facility] CO2 26 mmol/L (22-31) [facility] ANION GAP 8 mmol/L (7-16) [facility] UREA NITROGEN 10 mg/dL (7-24) [facility] CREATININE 0.86 mg/dL (0.60-1.00) [facility] BUN/CREAT RATIO 11.6 RATIO (10.0-20.0) [facility] GLUCOSE 151 mg/dL (70-99) H [facility] CALCIUM 8.8 mg/dL (8.4-10.2) [facility] TOTAL PROTEIN 7.8 g/dL (6.4-8.2) [facility] ALBUMIN 3.4 g/dL (3.5-4.6) L [facility] GLOBULIN 4.4 g/dL (2.7-4.3) H [facility] ALB/GLOB RATIO 0.8 RATIO [facility] ALKALINE PHOSPHATASE 104 U/L (45-117) [facility] BILIRUBIN,TOTAL 0.3 mg/dL (0.0-1.0) [facility] PLEASE NOTE:Total bilirubin results may be falselyelevated in patients taking Eltrombopag. AST (SGOT) 33 U/L (11-39) [facility] ALT (SGPT) 39 U/L (12-78) [facility] GFR >60 ml/min/1.73m2 (>59) [facility] GFR ( AMER) >60 ml/min/1.73m2 (>59) [facility] GFR INTERPRETATION [facility] [place] --NORMAL KIDNEY FUNCTION OR MILD DISEASE - GFR >OR= 60CHRONIC KIDNEY DISEASE - GFR 15 - 59RENAL FAILURE - GFR <15 Est. GFR calculation based on the MDRDstudy equation, which assumes a steadystate for creatinine. Est. GFR should notbe used for medication dosing. ID Date Data Source [id number] 09/07/2020 07:16:04 PM EDT [facility] Name Value Range Interpretation Code Description Data Tere rce(s) Supporting Document(s) APTT 23.8 s (22.0-34.3) [facility] Lemus ID Date Data Source [id number] 09/07/2020 07:16:04 PM EDT [facility] Name Value Range Interpretation Code Description Data Tere rce(s) Supporting Document(s) PT 10.6 s (9.2-11.9) [facility] INR 1.02 [facility] SUGGESTED THERAPEUTIC RANGES USING INR F ORSTABILIZED ANTICOAGULATED PATIENTS:STANDARD DOSE THERAPY INR 2.0-3.0 DVT, PE, PREVENT DVT OR EMBOLISMHIGH DOSE THERAPY INR 2.5-3.5 PREVENT EMBOLISM FROM MECHANICAL HEART VALVE ID Date Data Source [id number] 09/07/2020 07:07:38 PM EDT [facility] Name Value Range Interpretation Code Description Data Tere rce(s) Supporting Document(s) WBC 8.7 10*3/uL (4.1-11.0) [facility] [place] RBC 3.82 10*6/uL (4.00-5.40) L [facility] HGB 8.9 g/dL (12.0-16.0) L [facility] HCT 29.1 % (36.0-47.0) L [facility] Y MCV 76.2 fL (80.0-95.0) L [facility] MCH 23.4 pg (27.0-32.0) L [facility] CNONELLY Y MCHC 30.7 g/dL (32.0-36.0) L [facility] CONNELLY Y RDW 19.1 % (10.5-14.5) H [facility] CONNELLY Y PLT 338 10*3/uL (150-450) [facility] Lemus MPV 9.1 fL (7.1-10.7) [facility] ID Date Data Source [id number] 09/08/2020 03:21:27 PM EDT [facility] Name Value Range Interpretation Code Description Data Tere rce(s) Supporting Document(s) SPECIMEN DESCRIPTION [facility] [place] STAPH SCREEN RESULTS (ONEGSA) [facility] [place] COMMENT [facility] GENE TO DETECT STAPH AUREUS. (2) RT-P CR WAS PERFORMED FOR THE mecA AND SCCmec GENES TO DETECT METHICILLIN RESISTANCE IN STAPH AUREUS. ID Date Data Source [id number] 09/15/2020 11:43:14 AM EDT [facility], PCName: Eli MesaDOB: 1975Provider: Dk Napoles: 09/07/2020 Reason For VisitSbear Mesa is an established patient here for follow up. The patient is currently residing at home. Other DOI/DOO: 08/12/18. Surgery Description: Lumbar 5 to sacral 1 laminectom, possible interbody fusion, possbiel cage placement. Instrumentation, iliac crest bone graft, local bone graft. Globus. Neuromonitoring.. Expected DOS: 09-15-2020. The patient's pain is managed by Dr Johnson. 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 Patient is not working at this time [...] bowel or bladder dysfunction. Results/Data OtherMRI lumbar [facility] 9/29/18: L5-S1 spinal listhesis; right L5-S1 disc herniationMRI lumbar SOS 08/14/2020: L5-S1 spondylolisthesis, L5-S1 disc herniation; bilateral foraminal narrowing. No significant change compared to MRI of 08/09/2018 AssessmentRight L5-S1 HNPL5-S1 spondylolisthesis PlanPatient is scheduled for L5-S1 laminectomy, foraminotomies, and possible fusion on 09/15/2020. She will follow-up postoperatively. This document was dictated and electronically signed using Ikanos software. A reasonable attempt at proof reading has been made to minimize errors. Please call with any questions. Signatures Electronically signed by : Cailin Wolfe; Sep 14 2020 9:18PM EST (Author) Electronically signed by : Eder Polo M.D.; Sep 15 2020 11:43AM EST Name Value Range Interpretation Code Description Data Tere rce(s) Supporting Document(s) ID Date Data Source [id number] 09/02/2020 03:20:00 PM EDT [facility] ([facility] [...] test result 0-5 [facility] ([facility] SR[facility]: A courtesy [...] result 0-10 [facility] ([facility] SRC: A [...] Crystal Type Laboratory test result [facility] ([facility] SR[facility]: A courtesy copy of [...] s been sent to the patient, SRC: Urine sediment comments by Light microscopy Narrative Laboratory test result [facility] ([facility] SRC: A courtesy copy of this report laws s been sent to the patient, SRC: ID Date Data Source [id number] 09/02/2020 03:20:00 PM EDT [facility] ([facility] Name Value Range Interpretation Code Description Data Tere rce(s) Supporting Document(s) Urine Culture, Routine Laboratory test result Ab normal (applies to non-numeric results) [facility] SRC:UC A courtesy copy of this report laws s been sent to the patient, SRC:UC Bacteria identified in Urine by Culture Laboratory test result Abnormal (applies to non-numeric results) [facility] SRC:UC A courtesy copy of this report laws s been sent to the patient, SRC:UC ID Date Data Source [id number] 09/02/2020 03:20:00 PM EDT [facility] ([facility] [...] 67 mL/min/1.73 [facility] SRC:UC A [...] the patient, SRC: ID Date Data Source [id number] 09/02/2020 03:20:00 PM EDT [facility] ([facility] [...] the patient, SRC: ID Date Data Source [id number] 09/02/2020 03:20:00 PM EDT [facility] ([facility] Name Value Range Interpretation Code Description Data Tere rce(s) Supporting Document(s) Hemoglobin A1c/Hemoglobin.total in Blood 8.1 % 4.8-5.6 [facility] SRC: A courtesy copy of this report laws s been sent to the patient, SRC: ID Date Data Source [id number] 09/03/2020 04:05:00 AM EDT [facility] Name Value [...] mg/dL 8.7-10.2 [facility] ID Date Data Source [id number] 09/03/2020 05:05:00 AM EDT [facility] Name Value Range Interpretation Code Description Data Tere rce(s) Supporting Document(s) Hemoglobin A1c 8.1 % 4.8-5.6 Above high normal [facility] Prediabetes: 5.7 - 6.4 Diabetes: >6.4 Glycemic control for adults with diabetes: <7.0 ID Date Data Source [id number] 09/03/2020 08:08:00 AM EDT [facility] Name Value Range Interpretation Code Description Data Tere rce(s) Supporting Document(s) Specific [place] 1.021 1.005-1.030 [facility] pH 6.0 5.0-7.5 [facility] [...] below: [facility] ID Date Data Source [id number] 09/04/2020 06:07:00 AM EDT [facility] Name Value Range Interpretation Code Description Data [facility] rce(s) Supporting Document(s) Urine Culture, Routine Final report Abnormal (applies to non-numeric results) [facility] ID Date Data Source [id number] 09/03/2020 04:05:00 AM EDT [facility] Name Value Range Interpretation Code Description Data [facility] rce(s) Supporting Document(s) WBC 9.4 x10E3/uL 3.4-10.8 [...] 0.0-0.1 [facility] ID Date Data Source [id number] 09/03/2020 08:08:00 AM EDT [facility] Name Value [...] None seen/Few [facility] ID Date Data Source [id number] 09/04/2020 06:07:00 AM EDT [facility] Name Value [...] (group A). (CLSI) ID Date Data Source [id number] 08/14/2020 12:45:04 PM EDT [facility]: 1975Provider: June [...] The numbness is constant. Results/Data OtherMRI lumbar [facility] 08/18/18: L5-S1 spinal listhesis; right L5-S1 disc [...] document was dictated and electronically signed using Ikanos software. A reasonable attempt at proof reading has been made to minimize errors. Please call with any questions. Signatures Electronically signed by : Eder Polo M.D.; Aug 14 2020 10:39AM EST (Author) Electronically signed by : Eder Polo M.D.; Aug 14 2020 12:45PM EST (Author) Name Value Range Interpretation Code Description Data Tere rce(s) Supporting Document(s) ID Date Data Source [id number] 08/14/2020 11:59:00 AM EDT [facility] PATIENT MR#: [id number] NAME: ELI MUJICA OF : 1975REFERRING PHYSICIAN: Eder PoloEXAM DATE: 08/14/2020EXAM: MRI LUMBOSACRAL SPINE WITHOUT CONTRASTINDICATION: [...] conus is normal and terminates at the [id number] endplate level. Cauda equina is also normal.T12-L1: [...] Date: 08/14/2020 11:59:13 AMElectronically signed by: Neil NguyenDate signed: 08/14/2020 12:00:18 PM Name Value Range Interpretation Code Description Data Tere rce(s) Supporting Document(s) ID Date Data Source [id number] 07/16/2020 11:36:39 AM EDT [facility]: 1975Provider: June Polo: 07/16/2020 History of Present [...] Grade 1 spondylolisthesis at L5- S1. [facility]: L5-S1 spinal listhesis; right L5-S1 disc herniation Assessment 1. Herniated nucleus pulposus, L5-S1 (722.10) (M51.27) 2. Spondylolisthesis at L5-S1 level (756.12) (M43.17) 3. Low back pain (724.2) (M54.5) condition: Chronicetiology: age- related spine/joint degenerationlevels: L5-S1 Plan X-Ray I Lumbosacral - 2 views (XRays were ordered, obtained and interpreted today inthe office. Indication: pain/dysfunction.); Status:Complete; Done: [id number] Perform:SOS22; Due:30Jul2020; Last Updated By:Gaviota Cesar; 07/16/2020 11:06:11 AM;Ordered; For:Low back pain; Ordered By:Eder Polo; MRI (SOS) Referral Diagnostic Diagnostic Status: Need Information - FinancialAuthorization Requested for: [id number] Ordered;For: Low back pain; Ordered By: Eder Polo Performed: Order Comments: Wide Bore. Same Day Follow Up. Due: 30Jul2020; Last Updated By: Inga Rutherford; 07/16/2020 11:35:00 [...] document was dictated and electronically signed using Dragon Naturally Speaking software. A reasonable attempt at proof reading has been made to minimize errors. Please call with any questions. Signatures Electronically signed by : Eder Polo M.D.; Jul 16 2020 11:36AM EST (Author) Name Value Range Interpretation Code Description Data Tere rce(s) Supporting Document(s) ID Date Data Source [id number] 06/29/2020 04:17:00 PM EDT [facility] ([facility]) Name Value Range Interpretation Code Description Data Tere rce(s) Supporting Document(s) Hemoglobin A1c/Hemoglobin.total in Blood 7.2 [facility] ([facility]) Glucose [Mass/volume] in Serum or Plasma 230 [facility] ([facility]) ID Date Data Source [id number] 04/29/2020 05:04:00 AM EDT [facility] ([facility] Name Value Range Interpretation Code Description Data Tere rce(s) Supporting Document(s) Glucose [Mass/volume] in Capillary blood by Glucometer 172 mg/dL 70- 105 [facility] ([facility] ID Date Data Source [id number] 04/29/2020 03:56:00 AM EDT [facility] ([facility] Name Value Range Interpretation Code Description Data Tere rce(s) Supporting Document(s) Glucose [Mass/volume] in Capillary blood by Glucometer 114 mg/dL 70- 105 [facility] ([facility] ID Date Data Source [id number] 04/29/2020 02:31:00 AM EDT [facility] ([facility] Name Value Range Interpretation Code Description Data Tere rce(s) Supporting Document(s) Glucose [Mass/volume] in Capillary blood by Glucometer 91 mg/dL 70- 105 [facility] ([facility] ID Date Data Source [id number] 04/29/2020 01:12:00 AM EDT [facility] ([facility] Name Value Range Interpretation Code Description Data Tere rce(s) Supporting Document(s) Glucose [Mass/volume] in Capillary blood by Glucometer 31 mg/dL 70-105 Below lower panic limits [facility] Doctor Notified Nurse Notified ID Date Data Source [id number] 04/29/2020 01:11:00 AM EDT [facility] ([facility] Name Value Range Interpretation Code Description Data Tere rce(s) Supporting Document(s) Glucose [Mass/volume] in Capillary blood by Glucometer 26 mg/dL 70-105 Below lower panic limits [facility] Doctor Notified Nurse Notified ID Date Data Source [id number] 04/29/2020 12:06:00 AM EDT [facility] ([facility] Name Value Range Interpretation Code Description Data Tere rce(s) Supporting Document(s) Thyrotropin [Units/volume] in Serum or Plasma 10.700 uIU/ML 0.358-3.7 40 [facility] Thyroxine (T4) free [Mass/volume] in Serum or Plasma 0.75 ng/dL 0.76- 1.46 [facility] ID Date Data Source [id number] 04/29/2020 12:06:00 AM EDT [facility] ([facility] [...] Little GFR Left</content>
<content>ESRD GFR <15 on RADIO TELEVISION ANNOUNCER</content>
<content></content> Sodium Level 141 meq/L 136-145 [facility] [...] [facility] ID Date Data Source [id number] 04/29/2020 12:06:00 AM EDT [facility] ([facility] [...] [facility] ID Date Data Source [id number] 04/29/2020 12:06:00 AM EDT [facility] ([facility] [...] % 0.0-3.0 [facility] Storey % 6.9 % 0.0-5.0 [facility] Lymph % 21.7 % 24.0-44.0 [facility] Nucleated Red Blood Cell % 0.0 % 0-0 [facility] ([facility] Immature Granulocyte % 0.1 % 0-3.0 [facility] Baso % 1.9 % 0.0-1.0 [facility] Storey # 0.5 10 0.0-0.8 [facility] Neutrophils # 4.6 10 1.5-8.5 [facility] ([facility] Lymph # 1.5 10 1.5-5.0 [facility] Eos # 0.1 10 0.0-0.5 [facility] Baso # 0.1 10 0.0-0.2 [facility] ID Date Data Source [id number] 04/28/2020 11:39:00 PM EDT [facility] ([facility] Name Value Range Interpretation Code Description Data Tere rce(s) Supporting Document(s) Glucose [Mass/volume] in Capillary blood by Glucometer 169 mg/dL 70- 105 [facility] ([facility] ID Date Data Source [id number] 03/16/2020 09:31:00 AM EDT [facility] ([facility]) Name Value Range Interpretation Code Description Data Tere rce(s) Supporting Document(s) Glucose [Mass/volume] in Serum or Plasma 325 [facility] ([facility]) Hemoglobin A1c/Hemoglobin.total in Blood 9.7 [facility] ([facility]) ID Date Data Source [id number] 03/16/2020 09:15:00 AM EDT [facility] ([facility]) Name Value Range Interpretation Code Description Data Tere rce(s) Supporting Document(s) Creatinine, Urine 68.2 mg/dL [facility] ([facility]) Lamont/Creat Ratio 236.0 MCG/MG 0.0-30.0 [facility] ([facility]) THE [place] STATES THAT MICROALBUMINURIA IS PRESENT IF THE MICROALBUMIN/CREATININE RATIO EXCEEDS 30 MCG/MG. THE THRESHOLD FOR CLINICAL ALBUMINURIA IS REACHED AT 300 MCG/MG. THE CLASSIFICATION OF A PATIENT SHOULD BE BASED UPON AT LEAST 2 OF 3 ABNORMAL RESULTS ON SPECIMENS COLLECTED WITHIN A 3 TO 6 MONTH TIME FRAME. Malb Urine Siemens 161.0 mg/L [facility] ([facility]) ID Date Data Source [id number] 12/24/2019 07:41:00 PM EST [facility] ([facility]) Name Value Range Interpretation Code Description Data Tere rce(s) Supporting Document(s) Glucose [Mass/volume] in Capillary blood by Glucometer 87 70- 105 [facility] ([facility]) ID Date Data Source [id number] 12/24/2019 07:09:00 PM EST [facility] ([facility]) Name Value Range Interpretation Code Description Data Tere rce(s) Supporting Document(s) Glucose [Mass/volume] in Capillary blood by Glucometer 50 mg/dL 70- 105 [facility] ([facility]) Procedure Social History Code Duration Value Status Description Data Source(s ) Smoking 11/24/2020 04:07:00 PM EST Daily Smoker completed Daily [facility] Alcohol intake 09/16/2020 12:00:00 AM EDT No completed [facility] Cigarettes smoked current (pack per day) - Reported 09/16/20 12:00:00 AM EDT UNK completed [facility] Smoking 09/16/2020 12:00:00 AM EDT Current every day smoker co mpleted Current every day smoker [facility] Alcohol intake 09/07/2020 12:00:00 AM EDT No completed [facility] Cigarettes smoked current (pack per day) - Reported 09/07/20 12:00:00 AM EDT UNK completed [facility] Smoking 09/07/2020 12:00:00 AM EDT Current every day smoker co mpleted Current every day smoker [facility] Vital Signs ID Date Data Source UNK Name Value Range Interpretation Code Description Data Source(s) Body temperature 37.6 sandy Normal (applies to non-numeric results) 37.6 sandy [facility] Respiratory rate 20 min Normal (applies to non-numeric results) 20 min [facility] Heart rate 81 min Normal (applies to non-numeric resul ts) 81 min [facility] Diastolic blood pressure 73 mm[Hg] Normal (applies to non-numeric results) 73 mm[Hg] [facility] Systolic blood pressure 106 mm[Hg] Normal (applies t o non-numeric results) 106 mm[Hg] [facility] Deprecated Oxygen saturation in Capillary blood by Oximetry 98 % Normal (applies to non-numeric results) 98 % [facility] Body weight Measured 62.4 kg Normal (applies to non-num anabel results) 62.4 kg [facility] Body height 162.1536 cm Normal (applies to non-numeric res ults) 162.1536 cm [facility] Body mass index (BMI) [Ratio] 23.61 kg/m2 No rmal (applies to non-numeric results) 23.61 kg/m2 [facility] Body mass index (BMI) [Ratio] 24.4 kg/m2 24.4 k g/m2 [facility] [place] body weight 120 [lb_av] 120 [lb_av] MED[facility] [...] k g/m2 [facility] ([facility] [place] body weight 120 [lb_av] 120 [lb_av] MED[facility] [...] k g/m2 [facility] ([facility] [place] body weight 120 [lb_av] 120 [lb_av] MED[facility] [...] blood pressure 71 mm[Hg] 71 mm[Hg] [facility] ([facility] Systolic blood pressure 161 mm[Hg] 161 mm[Hg] M [facility] ([facility] Oxygen saturation in Arterial blood by Pulse oximetry 98 % 98 % [facility] Body temperature 36.89 Sandy 36.89 Sandy [facility] Heart rate 93 /min 93 /min [facility] Diastolic blood pressure 73 mm[Hg] 73 mm[Hg] [facility] Systolic blood pressure 136 mm[Hg] 136 mm[Hg] [facility] Respiratory rate 14 /min 14 /min [facility] Body mass index (BMI) [Ratio] 26.43 kg/m2 26.43 kg/m2 [facility] Body weight 69.854 kg 69.854 kg [facility] Body height 162.6 cm 162.6 cm [facility] Oxygen saturation in Arterial blood by Pulse oximetry 98 % 98 % [facility] Body mass index (BMI) [Ratio] 26.43 kg/m2 26.43 kg/m2 [facility] Body weight 69.854 kg 69.854 kg [facility] Body height 162.6 cm 162.6 cm [facility] Heart rate 97 /min 97 /min [facility] Diastolic blood pressure 70 mm[Hg] 70 mm[Hg] [facility] Systolic blood pressure 140 mm[Hg] 140 mm[Hg] [facility] Body mass index (BMI) [Ratio] 26.0 kg/m2 26.0 k g/m2 [facility] [place] body weight 120 [lb_av] 120 [lb_av] MEDEN [...] Systolic blood pressure 128 mm[Hg] 128 mm[Hg] M [facility] ([facility] Diastolic blood pressure 75 mm[Hg] 75 mm[Hg] [facility] Systolic blood pressure 143 mm[Hg] 143 mm[Hg] M [facility] ([facility] Oxygen saturation in Arterial blood by Pulse oximetry 99 % 99 % [facility] ([facility]) Body mass index (BMI) [Ratio] 26.6 kg/m2 26.6 k g/m2 [facility] ([facility]) Body weight 150.00 [lb_av] 150.00 [lb_av] [facility] T ([facility]) Body height 63 [in_i] 63 [in_i] [facility] ([facility]) 5'3" Heart rate 82 /min 82 /min [facility] ([facility]) Diastolic blood pressure 70 mm[Hg] 70 mm[Hg] [facility] ([facility]) Systolic blood pressure 142 mm[Hg] 142 mm[Hg] M EDENT ([facility]) Oxygen saturation in Arterial blood by Pulse oximetry 98 % 98 % [facility] ([facility]) Body mass index (BMI) [Ratio] 26.9 kg/m2 26.9 k g/m2 [facility] ([facility]) Body weight 152.12 [lb_av] 152.12 [lb_av] MED[facility] T ([facility]) Body height 63 [in_i] 63 [in_i] [facility] ([facility]) 5'3" Heart rate 100 /min 100 /min [facility] ([facility]) Diastolic blood pressure 88 mm[Hg] 88 mm[Hg] [facility] ([facility]) Systolic blood pressure 146 mm[Hg] 146 mm[Hg] M [facility]ENT ([facility] Body mass index (BMI) [Ratio] 25.4 kg/m2 25.4 k g/m2 [facility] ([facility]) Body weight 149.25 [lb_av] 149.25 [lb_av] MED[facility] T ([facility]) Body height 64.25 [in_i] 64.25 [in_i] [facility] ([facility] 5'4.25" Body mass index (BMI) [Ratio] 26.0 kg/m2 26.0 k g/m2 [facility] ([facility] Body weight 154.56 [lb_av] 154.56 [lb_av] [facility] T ([facility] ) Oxygen saturation in Arterial blood by Pulse oximetry 98 % 98 % [facility] ([facility] Body mass index (BMI) [Ratio] 26.5 kg/m2 26.5 k g/m2 [facility] ([facility] Body weight 149.50 [lb_av] 149.50 [lb_av] [facility] T ([facility] Body height 63 [in_i] 63 [in_i] [facility] ([facility] 5'3" Heart rate 96 /min 96 /min [facility] ([facility] Diastolic blood pressure 90 mm[Hg] 90 mm[Hg] [facility] ([facility] Systolic blood pressure 146 mm[Hg] 146 mm[Hg] M EDENT ([facility] Systolic blood pressure 146 mm[Hg] 146 mm[Hg] A THENA ([facility]) Body height 64 [in_i] 64 [in_i] ALIYAH ([facility]) Diastolic blood pressure 78 mm[Hg] 78 mm[Hg] ALIYAH ([facility]) Body mass index (BMI) [Ratio] 23.9 kg/m2 23.9 k g/m2 [facility] [place] body weight 120 [lb_av] 120 [lb_av] MEDEN [...] Body height 63 [in_i] 63 [in_i] [facility] ([facility]) 5'3" Heart rate 92 /min 92 /min [facility] ([facility] Diastolic blood pressure 88 mm[Hg] 88 mm[Hg] [facility] ([facility]) Systolic blood pressure 146 mm[Hg] 146 mm[Hg] M EDENT ([facility] ) Oxygen saturation in Arterial blood by Pulse oximetry 98 % 98 % [facility] ([facility] Body mass index (BMI) [Ratio] 24.6 kg/m2 24.6 k g/m2 [facility] ([facility]) Body weight 139.00 [lb_av] 139.00 [lb_av] [facility] T ([facility]) Systolic blood pressure 147 mm[Hg] 147 mm[Hg] A THENA ([facility]) Body height 64 [in_i] 64 [in_i] ALIYAH ([facility]) Diastolic blood pressure 73 mm[Hg] 73 mm[Hg] ALIYAH ([facility]) Systolic blood pressure 147 mm[Hg] 147 mm[Hg] A THENA ([facility]) Body height 64 [in_i] 64 [in_i] ALIYAH ([facility]) Diastolic blood pressure 73 mm[Hg] 73 mm[Hg] ALIYAH ([facility]) Patient Treatment Plan of Care Planned Activity Planned Date Details Description Data Source (s) Acetaminophen 325 MG / Hydrocodone Bitartrate 5 MG Ora l Tablet 09/17/2020 12:00:00 AM EDT [facility] Acetaminophen 500 MG Oral Tablet [facility] meloxicam 15 MG Oral Tablet [facility] meloxicam 15 MG Oral Tablet ALIYAH ([facility])
[2020-12-08 18:15] VITALS: BP 140/71
[2020-12-08] MEDS ORDERED: GLUCAGON INJ 1MG VIAL SC PRN (18:45)
[2020-12-08] MEDS ORDERED: DEXTROSE 50% 50 ML SYRINGE IV PRN (18:45)
[2020-12-08] MEDS ORDERED: GLUCOSE 4GM CHEW TABLET PO PRN (18:45)
[2020-12-08] MEDS ORDERED: CALCIUM CARBONATE 500 MG CHEW U/D PO PRN (19:00)
[2020-12-08] MEDS ORDERED: BISACODYL 10 MG SUPP PR PRN (19:00)
[2020-12-08] MEDS ORDERED: ONDANSETRON 4 MG ORAL DISINTEGRATING TAB PO PRN (19:00)
[2020-12-08 20:00] VITALS: BP 164/75
[2020-12-08] MEDS: GABAPENTIN 300 MG CAP PO SCH (20:37)
[2020-12-08] MEDS: MIRTAZAPINE 15 MG TAB PO SCH (20:37)
[2020-12-08] MEDS: LACTOBACILLUS ACIDOPHILUS CAP (BACID) PO SCH (20:38)
[2020-12-08] MEDS: tiZANidine 4 MG TAB PO SCH (20:38)
[2020-12-08] MEDS: DOCUSATE SODIUM 100MG CAPSULE PO SCH (20:39)
[2020-12-08] MEDS: SENNA 8.6 MG TAB (SENOKOT) PO SCH (20:39)
[2020-12-08] MEDS: ACETAMINOPHEN 500 MG TAB PO SCH (20:40)
[2020-12-08] MEDS: MORPHINE 30 MG SA TAB PO SCH (20:41)
[2020-12-08] MEDS: HumaLOG INSULIN (NovoLOG) PER UNIT SC SCH (20:41)
[2020-12-08] MEDS: REMEDY PHYTOPLEX Z-GUARD PASTE 113GM TUBE (FROM STOREROOM PRODUCT) TOP SCH (20:44)
[2020-12-09] MEDS: **hydrALAZINE HCL** 25 MG TAB PO SCH ×5 (00:23→23:36)
[2020-12-09] MEDS ORDERED: SODIUM CHLORIDE 0.9% INJ 10 ML SYR IV PRN (01:00)
[2020-12-09] MEDS: SODIUM CHLORIDE 0.9% INJ 10 ML SYR IV SCH ×2 (05:44→17:49)
[2020-12-09 06:00] VITALS: BP 162/78
[2020-12-09] MEDS: HumaLOG INSULIN (NovoLOG) PER UNIT SC SCH ×4 (06:04→20:05)
[2020-12-09 07:28] LABS: BASO # 0.1 10^3/uL (0.0-0.2); BASO % 1.3 % (0.0-1.0); EOS # 0.3 10^3/uL (0.0-0.5); EOS % 4.7 % (0.0-3.0); HEMATOCRIT 26.9 % (36.0-47.0); HEMOGLOBIN 7.9 g/dl (12.0-15.5); LYMPH # 1.2 10^3/uL (1.5-5.0); LYMPH % 16.6 % (24.0-44.0); MEAN CORPUSCULAR HEMOGLOBIN 27.9 pg (27.0-33.0); MEAN CORPUSCULAR HGB CONC 29.4 g/dl (32.0-36.5); MEAN CORPUSCULAR VOLUME 95.1 fl (80.0-96.0); MONO # 0.5 10^3/uL (0.0-0.8); MONO % 6.8 % (0.0-5.0); NEUTROPHILS % 69.9 % (36.0-66.0); PLATELET COUNT, AUTOMATED 368 10^3/uL (150-450); RED BLOOD COUNT 2.83 10^6/uL (4.00-5.40); WHITE BLOOD COUNT 7.2 10^3/uL (4.0-10.0)
[2020-12-09] MEDS: LACTOBACILLUS ACIDOPHILUS CAP (BACID) PO SCH ×4 (08:00→20:05)
[2020-12-09 08:05] LABS: ALBUMIN 2.2 GM/DL (3.2-5.2); ALT/SGPT 12 U/L (12-78); BILIRUBIN,TOTAL 0.3 MG/DL (0.2-1.0); BLOOD UREA NITROGEN 10 MG/DL (7-18); CALCIUM LEVEL 8.4 MG/DL (8.5-10.1); CARBON DIOXIDE LEVEL 28 MEQ/L (21-32); CHLORIDE LEVEL 101 MEQ/L (98-107); CREATININE FOR GFR 0.74 MG/DL (0.55-1.30); GLOMERULAR FILTRATION RATE > 60.0 (>58); GLUCOSE, FASTING 412 MG/DL (70-100); POTASSIUM SERUM 4.1 MEQ/L (3.5-5.1); SODIUM LEVEL 135 MEQ/L (136-145); TOTAL PROTEIN 6.5 GM/DL (6.4-8.2)
[2020-12-09] MEDS: REMEDY PHYTOPLEX Z-GUARD PASTE 113GM TUBE (FROM STOREROOM PRODUCT) TOP SCH ×3 (09:00→20:07)
[2020-12-09] MEDS: DOCUSATE SODIUM 100MG CAPSULE PO SCH ×2 (09:00→20:05)
[2020-12-09] MEDS: FLUoxetine 20 MG CAP PO SCH (09:40)
[2020-12-09] MEDS: ENOXAPARIN 40MG/0.4ML SYRINGE (J1650 PER 10MG) SC SCH (09:40)
[2020-12-09] MEDS: PANTOPRAZOLE 40MG TAB (PROTONIX) PO SCH (09:41)
[2020-12-09] MEDS: GABAPENTIN 300 MG CAP PO SCH ×3 (09:41→20:05)
[2020-12-09] MEDS: tiZANidine 4 MG TAB PO SCH ×4 (09:41→20:05)
[2020-12-09] MEDS: MORPHINE 30 MG SA TAB PO SCH ×2 (09:41→20:06)
[2020-12-09] MEDS: ACETAMINOPHEN 500 MG TAB PO SCH ×3 (09:42→20:06)
--- NOTE | 2020-12-09 11:26 | HPEPDOC ---
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 SOURCE OF ADMISSION INFORMATION: [facility] record and patient CHIEF COMPLAINT: spinal cord injury with bilat foot drop HISTORY OF PRESENT ILLNESS: 45F pmh brittle DM1, autoimmune thyroiditis, chronic low back pain, anxiety depression who underwent lumbar surgery on 09-15-20 and 11-06-20 with bilateral foot drop presented to [facility] ED on 12-04-20 with bilateral leg pain and persistent low back pain. She reportedly had undergone I&D of her surgical wound on 11-24-20 with wound vac placement and was seen by ID at [facility] who recommended Ceftriaxone for 6 weeks total. She had episodes of hypoglycemia and hyperglycemia in addition to nausea and vomiting thought to be due to opioid withdrawal and gastroparesis. She was evaluated by therapy and found to have impairments in mobility and ADLs requiring bilateral AFOs for ambulation and deemed medically appropriate for discharge to ARU on 12-08-20. REVIEW OF SYSTEMS: The following is a completed review of systems and has been reviewed. Review of systems otherwise unremarkable. PAIN: Patient self reports low back pain EYES: No recent vision changes EARS, NOSE, & THROAT: No throat pain, or dysphagia, or rhinorrhea CARDIOVASCULAR: Denies chest pain or palpitation PULMONARY: Denies shortness of breath GASTROINTESTINAL: Denies constipation/diarrhea GENITOURINARY: denies dysuria or incontinence. MUSCULOSKELETAL: bilat foot drop NEUROLOGICAL:bilat foot drop, peripheral polyneuropathy HEMATOLOGICAL: denies easy bruising SKIN: lumbar wound PSYCHIATRIC: Unremarkable All other review of systems found to be negative. PAST MEDICAL HISTORY: as per HPI PAST SURGICAL HISTORY: As per HPI and x3 ALLERGIES: Please see below. MEDICATIONS: Please see below. FAMILY HISTORY: Cancer and COPD SOCIAL HISTORY: Former smoker, no etoh/illicit drugs DIET: consistent carbs PHYSICAL EXAMINATION: VITAL SIGNS: Please see below. GENERAL: Pleasant and cooperative. No acute distress. HEENT: PERRL. Extraocular movements intact. Clear conjunctiva CARDIOVASCULAR: Regular rate and rhythm. No murmurs, rubs, or gallops LUNGS: Clear to auscultation bilaterally. No wheezes. No rhonchi ABDOMEN: Soft, nontender, nondistended. Positive bowel sounds. Normal active bowel sounds NEUROLOGICAL: Alert and oriented times three. Cranial nerves II through XII grossly intact. Sensation diminished to light touch bilat LE in stocking pattern (-) babinksi bilat EXTREMITIES: 5\5 strength bilateral upper extremities. 4+/5 bilat hip flexors, knee extensors, and flexion, 0/5 ankle DF or EHL SKIN: lumbar wound with wound vac, no periwound inudratioin or erythema -sacrum non-blanchable erythema LABORATORY DATA: Please see below. IMAGING:Imaging documentation personally reviewed by record FUNCTIONAL STATUS: Premorbid: Independent with all activities of daily life as well as mobility On Admission: stand-by assist to contact guard for functional transfers, ambulation, dressing, toileting GOALS: Modified independent functional transfers, ambulation community distances, stairs, dressing, toileting, bathing ASSESSMENT:45-year-old F with past medical history of brittle DM who presents status post multiple lumbar surgeries complicated by surgical site infection and bilateral foot drop PLAN: 1. Rehab- PT/OT- advance mobiltiy and ADLs, e-stim ok to use, c/u AFO, stretch, strengthen/maintain ROM all 4 limbs 2. Neuro- bilateral foot drop in setting of spinal cord injury following recent lumbar surgery, monitor for bowel/bladder incontinence or worsening weakness 3. Cardiac- hx of HTN with poorly controlled BPs, will add increased dose of hydralazine with holding parameters, medicien consulted to assist in overall management 4. resp- monitor for infection, encourage incentive spirometry 5. Endo- brittle DM1, c/u ISS and evening long-acting, additional FS order 3am to monitor for hypoglycemia, Ceftriaxone to be change from D5 to NS to avoid hyperglycemia, consistent carb diet 6. ID- c/u ceftriaxone and wound vac for lumbar surigcal site infectio, f/u [facility] ID, will monitor CRP/ESR and consider inhouse ID consult 7. Pain- chronic low back pain, c/u morphine, tizanidine, and gabapentin 8. Psych- c/u prozac and remeron for anxiety/depression 9. DVT ppx- lovenox 10. GI ppx- protonix, will order FOBT for anemia likely due to chronic disease 11. SKin- optifoam to bilat heels, offload heels with multipodus boots, zinc oxide to sacrum to avoid pressure ulcers 12. Dispo- TBD POST ADMISSION PHYSICIAN EVALUATION: Medical and functional status: Description of medical status, medical assessment: As above. Rehabilitation diagnosis and current and prior cold morbid medical conditions as above. Risk of complications and plans to mitigate them as above. Description of functional status current status is as above. Prior status as above. Status compared to preadmission: There are no clinically significant differences between the patient's current status and the information described on the preadmission screening document. Treatment plan anticipated: Treatment plan is as described above. Required disciplines including physical therapy, occupational therapy, others as noted above Intensity of services: 3 hours a day, 6 days a week. Special considerations: There are no specific special or safety considerations that would likely preclude immediate implementation of an intensive rehabilitation program or subsequently influence the plan of care. ATTESTATION: Considering all the information above, it is my best judgment that this patient requires intensive rehabilitation therapy as described above and an inpatient hospital environment due to the complexity of nursing, medical, and rehabilitation needs required by the patient. Furthermore, this patient can reasonably be expected to participate in an benefit from an inpatient rehabilitation stay with an interdisciplinary team approach to the delivery of rehabilitation care under the direction and supervision of rehabilitation physician. PROGNOSIS: good ESTIMATED LENGTH OF STAY:10-14 days. PROJECTED DISCHARGE DESTINATION: Home with family support and any durable medical equipment required to increase functional safety and mobility. TIME SPENT COUNSELING AND COORDINATING INITIAL CARE: Greater than 70 minutes. Vital Signs Vital Sign - Last 24 Hours 12/08/20 12/08/20 12/08/20 12/08/20 17:30 18:00 18:15 20:00 Temp 98.4 98.3 Pulse 83 90 Resp 18 20 20 B/P (MAP) 138/62 140/71 (94) 164/75 (104) Pulse Ox 97 95 O2 Delivery Room Air Room Air Room Air 12/08/20 12/08/20 12/09/20 12/09/20 20:30 20:41 00:23 05:43 Resp 18 18 B/P (MAP) 168/80 162/78 O2 Delivery Room Air 12/09/20 12/09/20 06:00 09:41 Temp 99.0 Pulse 81 Resp 20 20 B/P (MAP) 162/78 (106) Pulse Ox 92 O2 Delivery Room Air Room Air Laboratory Data CBC/BMP Laboratory Tests 12/09/20 06:54 Labs 24H Laboratory Tests 2 12/08/20 19:50: Bedside Glucose (Misc Panel) 220H 12/09/20 05:53: Bedside Glucose (Misc Panel) 386H 12/09/20 06:54: Immature Granulocyte % (Auto) 0.7, Neutrophils (%) (Auto) 69.9H, Lymphocytes (%) (Auto) 16.6L, Monocytes (%) (Auto) 6.8H, Eosinophils (%) (Auto) 4.7H, Basophils (%) (Auto) 1.3H, Neutrophils # (Auto) 5.0, Lymphocytes # (Auto) 1.2L, Monocytes # (Auto) 0.5, Eosinophils # (Auto) 0.3, Basophils # (Auto) 0.1, Nucleated Red Blood Cells % (auto) 0.0, Anion Gap 6L, Glomerular Filtration Rate > 60.0, Calcium Level 8.4L, Total Bilirubin 0.3#, Aspartate Amino Transf (AST/SGOT) 7, Alanine Aminotransferase (ALT/SGPT) 12, Alkaline Phosphatase 102, Total Protein 6.5, Albumin 2.2L, Albumin/Globulin Ratio 0.5L 12/09/20 08:36: Bedside Glucose (Misc Panel) 297H 12/09/20 11:24: Bedside Glucose (Misc Panel) 135H FSBS Laboratory Tests Test 12/08/20 19:50 12/09/20 05:53 12/09/20 08:36 12/09/20 11:24 Range/Units Bedside Glucose (Misc Panel) 220 386 297 135 70-105 MG/DL Home Medications Scheduled Ceftriaxone Sodium (Ceftriaxone) 1 Gm Vial, 2 GRAM IV DAILY, (Reported) home health nurse administered 12/04/20 Fluoxetine Hcl (Fluoxetine HCl) 40 Mg Capsule, 40 MG PO DAILY, (Reported) Gabapentin (Gabapentin) 600 Mg Tablet, 600 MG PO TID, (Reported) with 300mg to =900mg Insulin Glargine,Hum.rec.anlog (Basaglar Kwikpen U-100) 100 Unit/1 Ml Insuln.pen, 18 UNIT SC DAILY, (Reported) Insulin Lispro (Admelog) 100 Unit/1 Ml Vial, 1 DOSE SC AC, (Reported) PER SLIDING SCALE Mirtazapine (Remeron) 30 Mg Tablet, 30 MG PO QHS, (Reported) Morphine Sulfate (Morphine Sulfate ER 24HR) 30 Mg Cap.er.pel, 60 MG PO BID, (Reported) Pantoprazole Sodium (Pantoprazole Sodium) 40 Mg Tablet.dr, 40 MG PO DAILY, (Reported) Psyllium Husk (with Sugar) (Metamucil Powder) 575 Gm Powder, 1 PKT PO QPM, (Reported) Scheduled PRN Acetaminophen (Mapap) 500 Mg Capsule, 1,000 MG PO Q6HP PRN for PAIN, (Reported) Bisacodyl (Bisacodyl) 10 Mg Supp.rect, 10 MG AR DAILY PRN for CONSTIPATION, (Reported) Calcium Carbonate (Calcium Carbonate) 500 Mg Tablet, 500 MG PO Q4HP PRN for INDIGESTION, (Reported) Methocarbamol (Methocarbamol) 500 Mg Tablet, 500 MG PO BID PRN for MUSCLE SPASMS, (Reported) Metoclopramide HCl (Metoclopramide HCl) 10 Mg Tablet, 10 MG PO Q8H PRN for NAUSEA, (Reported) TRY ZOFRAN Morphine Sulfate (Morphine Sulfate) 10 Mg/5 Ml Solution, 5 ML PO Q6H PRN for SEVERE PAIN (PS 8-10), (Reported) Ondansetron HCl (Zofran) 4 Mg Tablet, 4 MG PO Q6H PRN for nausea/vomiting, (Reported) Tizanidine HCl (Tizanidine HCl) 4 Mg Tablet, 4 MG PO TID PRN for MUSCLE SPASMS, (Reported) Allergies Coded Allergies: No Known Allergies (Verified , 12/05/20) A-FIB/CHADSVASC A-FIB History Current/History of A-Fib/PAF?: No Current PO Anticoag Therapy: No LAURYN AMANDA MD Dec 09, 2020 11:26
[2020-12-09] MEDS: MORPHINE SULFATE ORAL SOLN 10 MG/5 ML UD PO PRN (13:47)
[2020-12-09 14:00] VITALS: BP 149/74
[2020-12-09] MEDS: cefTRIAXone SOD 2 GM in D5W MINI-BAG PLUS 50 ML IV SCH (17:49)
[2020-12-09 20:00] VITALS: BP 140/68
[2020-12-09] MEDS: LEVEMIR (INSULIN DETEMIR) 1 UNITS/0.01ML SC SCH (20:05)
[2020-12-09] MEDS: SENNA 8.6 MG TAB (SENOKOT) PO SCH (20:05)
[2020-12-09] MEDS: MIRTAZAPINE 15 MG TAB PO SCH (20:06)
[2020-12-10] MEDS: **hydrALAZINE HCL** 25 MG TAB PO SCH ×3 (05:52→17:44)
[2020-12-10] MEDS: SODIUM CHLORIDE 0.9% INJ 10 ML SYR IV SCH ×2 (05:52→16:49)
[2020-12-10 06:00] VITALS: BP 149/72
[2020-12-10 06:52] LABS: BASO # 0.1 10^3/uL (0.0-0.2); BASO % 1.7 % (0.0-1.0); EOS # 0.6 10^3/uL (0.0-0.5); EOS % 9.1 % (0.0-3.0); HEMATOCRIT 28.9 % (36.0-47.0); HEMOGLOBIN 8.4 g/dl (12.0-15.5); LYMPH # 1.2 10^3/uL (1.5-5.0); MEAN CORPUSCULAR HEMOGLOBIN 27.7 pg (27.0-33.0); MEAN CORPUSCULAR HGB CONC 29.1 g/dl (32.0-36.5); MEAN CORPUSCULAR VOLUME 95.4 fl (80.0-96.0); MONO # 0.6 10^3/uL (0.0-0.8); MONO % 8.8 % (0.0-5.0); NEUTROPHILS % 61.8 % (36.0-66.0); PLATELET COUNT, AUTOMATED 383 10^3/uL (150-450); RED BLOOD COUNT 3.03 10^6/uL (4.00-5.40); WHITE BLOOD COUNT 6.5 10^3/uL (4.0-10.0)
[2020-12-10] MEDS: HumaLOG INSULIN (NovoLOG) PER UNIT SC SCH ×4 (07:36→21:00)
[2020-12-10] MEDS: ENOXAPARIN 40MG/0.4ML SYRINGE (J1650 PER 10MG) SC SCH (07:36)
[2020-12-10] MEDS: LACTOBACILLUS ACIDOPHILUS CAP (BACID) PO SCH ×4 (07:37→20:59)
[2020-12-10] MEDS: MORPHINE 30 MG SA TAB PO SCH ×2 (07:37→20:59)
[2020-12-10] MEDS: PANTOPRAZOLE 40MG TAB (PROTONIX) PO SCH (07:37)
[2020-12-10] MEDS: FLUoxetine 20 MG CAP PO SCH (07:37)
[2020-12-10] MEDS: tiZANidine 4 MG TAB PO SCH ×4 (07:38→20:59)
[2020-12-10] MEDS: REMEDY PHYTOPLEX Z-GUARD PASTE 113GM TUBE (FROM STOREROOM PRODUCT) TOP SCH ×3 (07:38→21:00)
[2020-12-10] MEDS: GABAPENTIN 300 MG CAP PO SCH ×3 (07:38→20:59)
[2020-12-10] MEDS: DOCUSATE SODIUM 100MG CAPSULE PO SCH ×2 (07:38→20:58)
[2020-12-10] MEDS: ACETAMINOPHEN 500 MG TAB PO SCH ×3 (07:38→20:59)
[2020-12-10 12:31] VITALS: BP 184/86
[2020-12-10 14:00] VITALS: BP 123/61
[2020-12-10] MEDS: MORPHINE SULFATE ORAL SOLN 10 MG/5 ML UD PO PRN (14:04)
[2020-12-10] MEDS: cefTRIAXone SOD 2 GM in D5W MINI-BAG PLUS 50 ML IV SCH (16:17)
[2020-12-10 20:00] VITALS: BP 122/63
[2020-12-10] MEDS: SENNA 8.6 MG TAB (SENOKOT) PO SCH (20:58)
[2020-12-10] MEDS: MIRTAZAPINE 15 MG TAB PO SCH (20:59)
[2020-12-10] MEDS: LEVEMIR (INSULIN DETEMIR) 1 UNITS/0.01ML SC SCH (21:00)
[2020-12-11] MEDS: **hydrALAZINE HCL** 25 MG TAB PO SCH ×5 (00:19→23:28)
[2020-12-11] MEDS: HumaLOG INSULIN (NovoLOG) PER UNIT SC SCH ×5 (03:35→20:05)
[2020-12-11] MEDS: SODIUM CHLORIDE 0.9% INJ 10 ML SYR IV SCH ×2 (05:45→17:33)
[2020-12-11 06:09] VITALS: BP 182/86
[2020-12-11 06:44] VITALS: BP 128/74
[2020-12-11 07:45] LABS: BASO # 0.1 10^3/uL (0.0-0.2); BASO % 2.1 % (0.0-1.0); EOS # 0.5 10^3/uL (0.0-0.5); EOS % 8.6 % (0.0-3.0); HEMATOCRIT 29.7 % (36.0-47.0); HEMOGLOBIN 8.4 g/dl (12.0-15.5); LYMPH # 1.1 10^3/uL (1.5-5.0); LYMPH % 19.6 % (24.0-44.0); MEAN CORPUSCULAR HEMOGLOBIN 27.6 pg (27.0-33.0); MEAN CORPUSCULAR HGB CONC 28.3 g/dl (32.0-36.5); MEAN CORPUSCULAR VOLUME 97.7 fl (80.0-96.0); MONO # 0.4 10^3/uL (0.0-0.8); MONO % 7.7 % (0.0-5.0); NEUTROPHILS # 3.5 10^3/uL (1.5-8.5); NEUTROPHILS % 61.6 % (36.0-66.0); PLATELET COUNT, AUTOMATED 328 10^3/uL (150-450); RED BLOOD COUNT 3.04 10^6/uL (4.00-5.40); WHITE BLOOD COUNT 5.6 10^3/uL (4.0-10.0)
[2020-12-11] MEDS: ENOXAPARIN 40MG/0.4ML SYRINGE (J1650 PER 10MG) SC SCH (07:46)
[2020-12-11] MEDS: GABAPENTIN 300 MG CAP PO SCH ×3 (07:47→20:33)
[2020-12-11] MEDS: tiZANidine 4 MG TAB PO SCH ×4 (07:47→20:33)
[2020-12-11] MEDS: LACTOBACILLUS ACIDOPHILUS CAP (BACID) PO SCH ×4 (07:47→20:31)
[2020-12-11] MEDS: ACETAMINOPHEN 500 MG TAB PO SCH ×3 (07:47→20:33)
[2020-12-11] MEDS: PANTOPRAZOLE 40MG TAB (PROTONIX) PO SCH (07:47)
[2020-12-11] MEDS: MORPHINE 30 MG SA TAB PO SCH ×2 (07:48→20:32)
[2020-12-11] MEDS: FLUoxetine 20 MG CAP PO SCH (07:48)
[2020-12-11] MEDS: REMEDY PHYTOPLEX Z-GUARD PASTE 113GM TUBE (FROM STOREROOM PRODUCT) TOP SCH ×3 (07:50→20:39)
[2020-12-11] MEDS: DOCUSATE SODIUM 100MG CAPSULE PO SCH ×2 (07:50→20:31)
[2020-12-11 07:56] LABS: BLOOD UREA NITROGEN 7 MG/DL (7-18); CALCIUM LEVEL 8.6 MG/DL (8.5-10.1); CARBON DIOXIDE LEVEL 31 MEQ/L (21-32); CHLORIDE LEVEL 100 MEQ/L (98-107); CREATININE FOR GFR 0.53 MG/DL (0.55-1.30); GLOMERULAR FILTRATION RATE > 60.0 (>58); GLUCOSE, FASTING 253 MG/DL (70-100); POTASSIUM SERUM 4.2 MEQ/L (3.5-5.1); SODIUM LEVEL 138 MEQ/L (136-145)
[2020-12-11] MEDS ORDERED: LEVEMIR (INSULIN DETEMIR) 1 UNITS/0.01ML SC SCH ×2 (09:00→21:00)
[2020-12-11] MEDS: MORPHINE SULFATE ORAL SOLN 10 MG/5 ML UD PO PRN (13:39)
[2020-12-11 14:00] VITALS: BP 152/78
[2020-12-11 14:35] VITALS: BP 138/76
[2020-12-11] MEDS: cefTRIAXone SOD 2 GM in NS MINI-BAG PLUS 50 ML IV SCH (16:46)
[2020-12-11 20:00] VITALS: BP 102/57
[2020-12-11] MEDS: MIRTAZAPINE 15 MG TAB PO SCH (20:33)
[2020-12-11] MEDS: SENNA 8.6 MG TAB (SENOKOT) PO SCH (20:33)
[2020-12-12] MEDS: SODIUM CHLORIDE 0.9% INJ 10 ML SYR IV SCH ×2 (05:50→16:28)
[2020-12-12] MEDS: **hydrALAZINE HCL** 25 MG TAB PO SCH ×3 (05:53→17:28)
[2020-12-12 05:56] VITALS: BP 180/70
[2020-12-12] MEDS: HumaLOG INSULIN (NovoLOG) PER UNIT SC SCH ×4 (06:44→21:00)
--- NOTE | 2020-12-12 07:39 | CR.PDOC ---
General Date of Consultation: Dec 12, 2020 Consultation REASON FOR CONSULTATION/CHIEF COMPLAINT: mgt of chronic medical problems HISTORY OF PRESENT ILLNESS: 45 y/o w type [address]DM managed [address] Tracey Boyle, autoimmune thyroiditis, anxiety, depresison/chronic low back pain admitted to ARU for b/l foot drop after lumbar surgery in [place]. She c/o b/l LE mm pain this morning w/o LE weakness, fever, chills, sob, sore throat, wt changes, n/v/d/abd pain, dysuria, urgency, frequency, chest pain pressure tightness dizziness lightheadedness ear pain tinnitus paresthesias. no other c/o despite uncontrolled htn and dm1. ALLERGIES: Please see below. HOME MEDICATIONS: Please see below. PAST MEDICAL HISTORY: DM type I on insulin at home Autoimmune thyroiditis Anxiety/depression Chronic lower back pain PAST SURGICAL HISTORY: lumbar spine surgery 3 Social history: Former smoker smoked for 32 years half pack a day. Quit a month ago Denies any alcohol use Denies any illicit, or recreational drug use Lives with her 17-year-old daughter in [place] Did not work for last 2-1/2 years due to back pain. Family history: Father healthy and alive Mother, breast cancer, COPD alive REVIEW OF SYSTEMS: 12point ros neg aside from + findings on HPI PHYSICAL EXAMINATION: VITAL SIGNS: Please see below. GENERAL APPEARANCE: aao x 3 no distress HEENT: perrla eomi no jvd,cervical lad or carotid bruits RESPIRATORY: ctab b/l CARDIOVASCULAR:S1S2 RRR ABDOMEN: +bs soft nt nd EXTREMITIES: no cyanosis NEURO: b/l foot drop LABORATORY DATA: Please see below. ASSESSMENT/PLAN: 45 y/o w type 1DM managed by Dr. Tracey Boyle, autoimmune thyroiditis, anxiety, depresison/chronic low back pain admitted to ARU for b/l foot drop after lumbar surgery in [place]. She c/o b/l LE mm pain this morning w/o LE weakness, fever, chills, sob, sore throat, wt changes, n/v/d/abd pain, dysuria, urgency, frequency, chest pain pressure tightness dizziness lightheadedness ear pain tinnitus paresthesias. no other c/o despite uncontrolled htn and dm1. HTN, uncontrolled -one dose of clonidine x 1 and norvasc bid -asymptomatic DM1, uncontrolled -levemir 10units sq bid hold for sbp<200 autoimmune thyroiditis -no acute symptoms b/l foot drop -[facility] anxiety/depression -chronic Vital Signs/I&O Vital Signs Date Time Temp Pulse Resp B/P (MAP) Pulse Ox O2 Delivery O2 Flow Rate FiO2 12/12/20 05:56 97.6 88 16 180/70 (106) 97 Room Air I&O- Last 24 Hours up to 6 AM 12/12/20 06:00 Intake Total 2009 ml Balance 2009 ml Laboratory Data Labs 24H Laboratory Tests 2 12/11/20 09:31: Bedside Glucose (Misc Panel) 154H 12/11/20 11:20: Bedside Glucose (Misc Panel) 60L 12/11/20 11:53: Bedside Glucose (Misc Panel) 81 12/11/20 14:38: C-Reactive Protein, Quantitative 5.06H 12/11/20 16:33: Bedside Glucose (Misc Panel) 157H 12/11/20 20:00: Bedside Glucose (Misc Panel) 169H 12/12/20 02:47: Bedside Glucose (Misc Panel) 328H 12/12/20 06:38: Bedside Glucose (Misc Panel) 397H Microbiology Microbiology 12/11/20 Blood Culture, Received Pending 12/11/20 Blood Culture, Received Pending Allergies Coded Allergies: No Known Allergies (Verified , 12/05/20) Home Medications Scheduled Ceftriaxone Sodium (Ceftriaxone) 1 Gm Vial, 2 GRAM IV DAILY, (Reported) home health nurse administered 12/04/20 Fluoxetine Hcl (Fluoxetine HCl) 40 Mg Capsule, 40 MG PO DAILY, (Reported) Gabapentin (Gabapentin) 600 Mg Tablet, 600 MG PO TID, (Reported) with 300mg to =900mg Insulin Glargine,Hum.rec.anlog (Basaglar Kwikpen U-100) 100 Unit/1 Ml Insuln. pen, 18 UNIT SC DAILY, (Reported) Insulin Lispro (Admelog) 100 Unit/1 Ml Vial, 1 DOSE SC AC, (Reported) PER SLIDING SCALE Mirtazapine (Remeron) 30 Mg Tablet, 30 MG PO QHS, (Reported) Morphine Sulfate (Morphine Sulfate ER 24HR) 30 Mg Cap.er.pel, 60 MG PO BID, (Reported) Pantoprazole Sodium (Pantoprazole Sodium) 40 Mg Tablet.dr, 40 MG PO DAILY, (Reported) Psyllium Husk (with Sugar) (Metamucil Powder) 575 Gm Powder, 1 PKT PO QPM, (Reported) Scheduled PRN Acetaminophen (Mapap) 500 Mg Capsule, 1,000 MG PO Q6HP PRN for PAIN, (Reported) Bisacodyl (Bisacodyl) 10 Mg Supp.rect, [address] DAILY PRN for CONSTIPATION, (Reported) Calcium Carbonate (Calcium Carbonate) 500 Mg Tablet, 500 MG PO Q4HP PRN for INDIGESTION, (Reported) Methocarbamol (Methocarbamol) 500 Mg Tablet, 500 MG PO BID PRN for MUSCLE SPASMS, (Reported) Metoclopramide HCl (Metoclopramide HCl) 10 Mg Tablet, 10 MG PO Q8H PRN for NAUSEA, (Reported) TRY ZOFRAN Morphine Sulfate (Morphine Sulfate) 10 Mg/5 Ml Solution, 5 ML PO Q6H PRN for SEVERE PAIN (PS 8-10), (Reported) Ondansetron HCl (Zofran) 4 Mg Tablet, 4 MG PO Q6H PRN for nausea/vomiting, (Reported) Tizanidine HCl (Tizanidine HCl) 4 Mg Tablet, 4 MG PO TID PRN for MUSCLE SPASMS, (Reported) REYNOLD BOSWELL MD Dec 12, 2020 07:30
[2020-12-12] MEDS ORDERED: amLODIPine 5 MG TAB PO ONE (08:00)
[2020-12-12] MEDS ORDERED: cloNIDine 0.1MG TABLET PO ONE (08:00)
[2020-12-12] MEDS: LACTOBACILLUS ACIDOPHILUS CAP (BACID) PO SCH ×4 (08:21→21:43)
[2020-12-12] MEDS: DOCUSATE SODIUM 100MG CAPSULE PO SCH ×2 (08:27→21:41)
[2020-12-12] MEDS: MORPHINE 30 MG SA TAB PO SCH ×2 (08:28→21:43)
[2020-12-12] MEDS: GABAPENTIN 300 MG CAP PO SCH ×3 (08:30→21:41)
[2020-12-12] MEDS: tiZANidine 4 MG TAB PO SCH ×4 (08:30→21:41)
[2020-12-12] MEDS: ACETAMINOPHEN 500 MG TAB PO SCH ×3 (08:30→21:42)
[2020-12-12] MEDS: PANTOPRAZOLE 40MG TAB (PROTONIX) PO SCH (08:31)
[2020-12-12] MEDS: REMEDY PHYTOPLEX Z-GUARD PASTE 113GM TUBE (FROM STOREROOM PRODUCT) TOP SCH ×3 (08:31→21:50)
[2020-12-12] MEDS: FLUoxetine 20 MG CAP PO SCH (08:31)
[2020-12-12] MEDS: ENOXAPARIN 40MG/0.4ML SYRINGE (J1650 PER 10MG) SC SCH (08:31)
[2020-12-12] MEDS ORDERED: LEVEMIR (INSULIN DETEMIR) 1 UNITS/0.01ML SC ONE (09:00)
[2020-12-12 10:10] VITALS: BP 180/84
[2020-12-12 12:04] VITALS: BP 120/64
--- NOTE | 2020-12-12 13:23 | IPNPDOC ---
PM&R Progress Note DATE OF SERVICE: Dec 11, 2020 Dog Walker Progress Note Subjective: PAtient seen in therapy stating she has had a heart murmur for years and has no new chest pain, fevers, or chills. She states her pain is well controlled. REVIEW OF SYSTEMS: The following is a completed review of systems and has been reviewed. Review of systems otherwise unremarkable. PAIN: Patient self reports low back pain EYES: No recent vision changes EARS, NOSE, & THROAT: No throat pain, or dysphagia, or rhinorrhea CARDIOVASCULAR: Denies chest pain or palpitation PULMONARY: Denies shortness of breath GASTROINTESTINAL: Denies constipation/diarrhea GENITOURINARY: denies dysuria or incontinence. MUSCULOSKELETAL: bilat foot drop NEUROLOGICAL:bilat foot drop, peripheral polyneuropathy HEMATOLOGICAL: denies easy bruising SKIN: lumbar wound PSYCHIATRIC: Unremarkable All other review of systems found to be negative. PHYSICAL EXAMINATION: VITAL SIGNS: Please see below. GENERAL: Pleasant and cooperative. No acute distress. HEENT: PERRL. Extraocular movements intact. Clear conjunctiva CARDIOVASCULAR: Regular rate and rhythm. +systolic murmur, rubs, or gallops LUNGS: Clear to auscultation bilaterally. No wheezes. No rhonchi ABDOMEN: Soft, nontender, nondistended. Positive bowel sounds. Normal active bowel sounds NEUROLOGICAL: Alert and oriented times three. Cranial nerves II through XII grossly intact. Sensation diminished to light touch bilat LE in stocking pattern (-) babinksi bilat EXTREMITIES: 5\5 strength bilateral upper extremities. 4+/5 bilat hip flexors, knee extensors, and flexion, 0/5 ankle DF or EHL SKIN: lumbar wound with wound vac, no periwound inudratioin or erythema -sacrum non-blanchable erythema ASSESSMENT:45-year-old F with past medical history of brittle DM who presents status post multiple lumbar surgeries complicated by surgical site infection and bilateral foot drop PLAN: 1. Rehab- PT/OT- advance mobiltiy and ADLs, e-stim ok to use, c/u AFO, stretch, strengthen/maintain ROM all 4 limbs 2. Neuro- bilateral foot drop in setting of spinal cord injury following recent lumbar surgery, monitor for bowel/bladder incontinence or worsening weakness 3. Cardiac- hx of HTN with poorly controlled BPs, c/u hydralazine with holding parameters, medicine consulted to assist in overall management -patient with systolic heart murmur which she reports is not new and that she has this for years 4. resp- monitor for infection, encourage incentive spirometry 5. Endo- brittle DM1, c/u ISS and BID long-acting with tight holding parameters to avoid hypoglycemia, additional FS order 3am to monitor for hypoglycemia, Ceftriaxone changde from D5 to NS to avoid hyperglycemia, consistent carb diet 6. ID- c/u ceftriaxone and wound vac for lumbar surgical site infection, f/u [facility], will monitor CRP/ESR and consider inhouse ID consult 7. Pain- chronic low back pain, c/u morphine, tizanidine, and gabapentin 8. Psych- c/u prozac and remeron for anxiety/depression 9. DVT ppx- lovenox 10. GI ppx- protonix, will order FOBT for anemia likely due to chronic disease 11. SKin- optifoam to bilat heels, offload heels with multipodus boots, zinc oxide to sacrum to avoid pressure ulcers 12. Dispo- TBD Allergies Coded Allergies: No Known Allergies (Verified , 12/05/20) Vital Signs Vital Signs Date Time Temp Pulse Resp B/P (MAP) Pulse Ox O2 Delivery O2 Flow Rate FiO2 12/12/20 12:04 120/64 (82) 12/12/20 08:28 18 Room Air 12/12/20 05:56 97.6 88 97 Laboratory Data Labs 24H Laboratory Tests 2 12/11/20 14:38: C-Reactive Protein, Quantitative 5.06H 12/11/20 16:33: Bedside Glucose (Misc Panel) 157H 12/11/20 20:00: Bedside Glucose (Misc Panel) 169H 12/12/20 02:47: Bedside Glucose (Misc Panel) 328H 12/12/20 06:38: Bedside Glucose (Misc Panel) 397H 12/12/20 08:56: Bedside Glucose (Misc Panel) 307H 12/12/20 10:04: Bedside Glucose (Misc Panel) 243H 12/12/20 11:33: Bedside Glucose (Misc Panel) 155H 12/12/20 12:50: Bedside Glucose (Misc Panel) 107H Microbiology Microbiology 12/11/20 Blood Culture, Received Pending 12/11/20 Blood Culture, Received Pending Current Medications Current Medications Current Medications Medications (Trade) Dose Ordered Sig/Esmer Route PRN Reason Start Time Stop Time Status Last Admin Dose Admin Acetaminophen (Tylenol Tab) 1,000 mg TID PO 12/08/20 21:00 12/12/20 08:30 Amlodipine Besylate (Norvasc) 5 mg BID PO 12/12/20 21:00 Bisacodyl (Dulcolax Suppository) 10 mg DAILYPRN PRN NE CONSTIPATION 12/08/20 19:00 Calcium Carbonate (Tums) 1,000 mg Q4HP PRN PO HEARTBURN 12/08/20 19:00 Ceftriaxone Sodium 2 gm/ Dextrose 50 ml @ 100 mls/hr Q24H IV 12/09/20 17:00 12/11/20 08:42 DC 12/10/20 16:17 Ceftriaxone Sodium 2 gm/ Sodium Chloride 50 ml @ 100 mls/hr Q24H IV 12/11/20 17:00 12/11/20 16:46 Dextrose (Dextrose 50%) 25 ml ASDIRECTED PRN IV SEE LABEL COMMENTS 12/08/20 18:45 Docusate Sodium (Colace) 100 mg BID PO 12/08/20 21:00 12/11/20 20:31 Enoxaparin Sodium (Lovenox) 40 mg DAILY SC 12/09/20 09:00 12/12/20 08:31 Fluoxetine HCl (PROzac) 40 mg DAILY PO 12/09/20 09:00 12/12/20 08:31 Gabapentin (Neurontin) 600 mg TID PO 12/08/20 21:00 12/12/20 08:30 Glucagon (Glucagon) 1 mg ASDIRECTED PRN SC SEE LABEL COMMENTS 12/08/20 18:45 Glucose (Glucose) 16 GM ASDIRECTED PRN PO SEE LABEL COMMENTS 12/08/20 18:45 Heparin Sodium (Heparin (Flush)) 200 units ASDIRECTED PRN IV SEE LABEL COMMENTS 12/09/20 01:00 Heparin Sodium (Heparin (Flush)) 200 units PICC IV 12/09/20 06:00 12/12/20 05:49 Home Med (Med Rec Complete!) ASDIRECTED XX 12/08/20 19:30 12/08/20 19:26 DC Hydralazine HCl (Apresoline) 25 mg Q6H PO 12/08/20 18:00 12/12/20 10:44 Insulin Detemir (Levemir Insulin) 5 units DAILY SC 12/11/20 09:00 12/12/20 07:36 DC 12/11/20 09:43 Insulin Detemir (Levemir Insulin) 5 units QHS SC 12/11/20 21:00 12/12/20 07:36 DC Insulin Detemir (Levemir Insulin) 10 units BID SC 12/12/20 21:00 Insulin Detemir (Levemir Insulin) 10 units QHS SC 12/09/20 21:00 12/11/20 12:34 DC 12/09/20 20:05 Insulin Human Lispro (HumaLOG INSULIN) SEE PROTOCOL TABLE AC SC 12/09/20 07:30 12/12/20 12:07 Insulin Human Lispro (HumaLOG INSULIN) SEE PROTOCOL TABLE QHS SC 12/08/20 21:00 12/11/20 03:35 Lactobacillus Acidophilus (Bacid) 1 ea WMHS PO 12/08/20 21:00 12/12/20 12:07 Mirtazapine (Remeron) 30 mg QHS PO 12/08/20 21:00 12/11/20 20:33 Morphine Sulfate (Morphine Sulfate Oral Solution) 5 mg Q6HP PRN PO SEVERE PAIN (PS 8-10) 12/08/20 19:00 12/11/20 13:39 Morphine Sulfate (Ms Contin) 60 mg Q12H PO 12/08/20 21:00 12/12/20 08:28 Ondansetron HCl (Zofran Odt) 4 mg Q6HP PRN PO NAUSEA OR VOMITING 12/08/20 19:00 Pantoprazole Sodium (Protonix) 40 mg DAILY PO 12/09/20 09:00 12/12/20 08:31 Senna (Senokot) 1 tab QHS PO 12/08/20 21:00 12/11/20 20:33 Sodium Chloride (Saline Lock Flush) 10 ml ASDIRECTED PRN IV SEE LABEL COMMENTS 12/09/20 01:00 Sodium Chloride (Saline Lock Flush) 10 ml PICC IV 12/09/20 06:00 12/12/20 05:50 Tizanidine HCl (Zanaflex) 4 mg QID PO 12/08/20 21:00 12/12/20 12:08 LAURYN AMANDA MD Dec 12, 2020 13:22
[2020-12-12 14:00] VITALS: BP 120/62
[2020-12-12] MEDS: cefTRIAXone SOD 2 GM in NS MINI-BAG PLUS 50 ML IV SCH (16:25)
[2020-12-12 20:00] VITALS: BP 123/63
[2020-12-12] MEDS: amLODIPine 5 MG TAB PO SCH (21:00)
[2020-12-12] MEDS: SENNA 8.6 MG TAB (SENOKOT) PO SCH (21:41)
[2020-12-12] MEDS: LEVEMIR (INSULIN DETEMIR) 1 UNITS/0.01ML SC SCH (21:43)
[2020-12-12] MEDS: MIRTAZAPINE 15 MG TAB PO SCH (21:43)
[2020-12-13] MEDS: **hydrALAZINE HCL** 25 MG TAB PO SCH ×5 (00:30→23:23)
[2020-12-13 06:02] VITALS: BP 131/63
[2020-12-13] MEDS: SODIUM CHLORIDE 0.9% INJ 10 ML SYR IV SCH ×2 (06:03→16:52)
[2020-12-13] MEDS: HumaLOG INSULIN (NovoLOG) PER UNIT SC SCH ×4 (07:23→20:12)
[2020-12-13] MEDS: REMEDY PHYTOPLEX Z-GUARD PASTE 113GM TUBE (FROM STOREROOM PRODUCT) TOP SCH ×3 (09:00→21:00)
[2020-12-13] MEDS: PANTOPRAZOLE 40MG TAB (PROTONIX) PO SCH (09:19)
[2020-12-13] MEDS: tiZANidine 4 MG TAB PO SCH ×4 (09:19→21:32)
[2020-12-13] MEDS: DOCUSATE SODIUM 100MG CAPSULE PO SCH ×2 (09:19→21:32)
[2020-12-13] MEDS: FLUoxetine 20 MG CAP PO SCH (09:20)
[2020-12-13] MEDS: LACTOBACILLUS ACIDOPHILUS CAP (BACID) PO SCH ×4 (09:20→21:33)
[2020-12-13] MEDS: amLODIPine 5 MG TAB PO SCH ×2 (09:20→20:12)
[2020-12-13] MEDS: MORPHINE 30 MG SA TAB PO SCH ×2 (09:21→21:34)
[2020-12-13] MEDS: GABAPENTIN 300 MG CAP PO SCH ×3 (09:21→21:33)
[2020-12-13] MEDS: ENOXAPARIN 40MG/0.4ML SYRINGE (J1650 PER 10MG) SC SCH (09:22)
[2020-12-13] MEDS: ACETAMINOPHEN 500 MG TAB PO SCH ×3 (09:22→21:33)
[2020-12-13] MEDS: LEVEMIR (INSULIN DETEMIR) 1 UNITS/0.01ML SC SCH ×2 (09:55→21:32)
[2020-12-13 14:00] VITALS: BP_SYST 117; BP_SYST 92; BP_DIAS 52; BP_DIAS 61
[2020-12-13] MEDS ORDERED: NS 500 ML IV ONE (14:30)
[2020-12-13 14:47] VITALS: BP 119/57
[2020-12-13] MEDS: cefTRIAXone SOD 2 GM in NS MINI-BAG PLUS 50 ML IV SCH (16:04)
[2020-12-13 20:00] VITALS: BP 121/60
[2020-12-13] MEDS: SENNA 8.6 MG TAB (SENOKOT) PO SCH (21:32)
[2020-12-13] MEDS: MIRTAZAPINE 15 MG TAB PO SCH (21:33)
[2020-12-14] MEDS: SODIUM CHLORIDE 0.9% INJ 10 ML SYR IV SCH ×2 (05:10→17:11)
[2020-12-14] MEDS: **hydrALAZINE HCL** 25 MG TAB PO SCH (05:31)
[2020-12-14 06:00] VITALS: BP 172/80
[2020-12-14] MEDS: HumaLOG INSULIN (NovoLOG) PER UNIT SC SCH ×4 (07:00→21:18)
[2020-12-14] MEDS: LEVEMIR (INSULIN DETEMIR) 1 UNITS/0.01ML SC SCH (07:15)
[2020-12-14] MEDS: tiZANidine 4 MG TAB PO SCH ×4 (08:52→21:17)
[2020-12-14] MEDS: PANTOPRAZOLE 40MG TAB (PROTONIX) PO SCH (08:52)
[2020-12-14] MEDS: GABAPENTIN 300 MG CAP PO SCH ×3 (08:52→21:17)
[2020-12-14] MEDS: DOCUSATE SODIUM 100MG CAPSULE PO SCH ×2 (08:52→21:00)
[2020-12-14] MEDS: LACTOBACILLUS ACIDOPHILUS CAP (BACID) PO SCH ×4 (08:52→21:20)
[2020-12-14] MEDS: ACETAMINOPHEN 500 MG TAB PO SCH ×3 (08:53→21:16)
[2020-12-14] MEDS: amLODIPine 5 MG TAB PO SCH ×2 (08:53→21:20)
[2020-12-14] MEDS: FLUoxetine 20 MG CAP PO SCH (08:53)
[2020-12-14] MEDS: MORPHINE 30 MG SA TAB PO SCH ×2 (08:54→21:17)
[2020-12-14] MEDS: ENOXAPARIN 40MG/0.4ML SYRINGE (J1650 PER 10MG) SC SCH (08:54)
[2020-12-14] MEDS: REMEDY PHYTOPLEX Z-GUARD PASTE 113GM TUBE (FROM STOREROOM PRODUCT) TOP SCH ×3 (08:55→21:00)
[2020-12-14 09:09] LABS: BASO # 0.1 10^3/uL (0.0-0.2); EOS # 0.3 10^3/uL (0.0-0.5); EOS % 3.6 % (0.0-3.0); HEMATOCRIT 29.9 % (36.0-47.0); HEMOGLOBIN 8.8 g/dl (12.0-15.5); LYMPH # 0.9 10^3/uL (1.5-5.0); LYMPH % 11.7 % (24.0-44.0); MEAN CORPUSCULAR HEMOGLOBIN 28.5 pg (27.0-33.0); MEAN CORPUSCULAR HGB CONC 29.4 g/dl (32.0-36.5); MEAN CORPUSCULAR VOLUME 96.8 fl (80.0-96.0); MONO # 0.5 10^3/uL (0.0-0.8); MONO % 6.9 % (0.0-5.0); NEUTROPHILS # 5.5 10^3/uL (1.5-8.5); NEUTROPHILS % 76.2 % (36.0-66.0); PLATELET COUNT, AUTOMATED 384 10^3/uL (150-450); RED BLOOD COUNT 3.09 10^6/uL (4.00-5.40); WHITE BLOOD COUNT 7.2 10^3/uL (4.0-10.0)
[2020-12-14 09:39] LABS: BLOOD UREA NITROGEN 7 MG/DL (7-18); C REACTIVE PROTEIN QUANTITATIV 2.73 MG/DL (0.00-0.30); CALCIUM LEVEL 8.6 MG/DL (8.5-10.1); CARBON DIOXIDE LEVEL 28 MEQ/L (21-32); CHLORIDE LEVEL 100 MEQ/L (98-107); CREATININE FOR GFR 0.59 MG/DL (0.55-1.30); GLOMERULAR FILTRATION RATE > 60.0 (>58); GLUCOSE, FASTING 219 MG/DL (70-100); POTASSIUM SERUM 4.7 MEQ/L (3.5-5.1); SODIUM LEVEL 138 MEQ/L (136-145)
--- NOTE | 2020-12-14 10:50 | IPNPDOC ---
PM&R Progress Note DATE OF SERVICE: Dec 14, 2020 [employer]ing [employer] Progress Note Subjective: PAtient seen in her room stating she is feeling well and is able to walk with and without her AFOs. REVIEW OF SYSTEMS: The following is a completed review of systems and has been reviewed. Review of systems otherwise unremarkable. PAIN: Patient self reports low back pain EYES: No recent vision changes EARS, NOSE, & THROAT: No throat pain, or dysphagia, or rhinorrhea CARDIOVASCULAR: Denies chest pain or palpitation PULMONARY: Denies shortness of breath GASTROINTESTINAL: Denies constipation/diarrhea GENITOURINARY: denies dysuria or incontinence. MUSCULOSKELETAL: bilat foot drop NEUROLOGICAL:bilat foot drop, peripheral polyneuropathy HEMATOLOGICAL: denies easy bruising SKIN: lumbar wound PSYCHIATRIC: Unremarkable All other review of systems found to be negative. PHYSICAL EXAMINATION: VITAL SIGNS: Please see below. GENERAL: Pleasant and cooperative. No acute distress. HEENT: PERRL. Extraocular movements intact. Clear conjunctiva CARDIOVASCULAR: Regular rate and rhythm. +systolic murmur, rubs, or gallops LUNGS: Clear to auscultation bilaterally. No wheezes. No rhonchi ABDOMEN: Soft, nontender, nondistended. Positive bowel sounds. Normal active bowel sounds NEUROLOGICAL: Alert and oriented times three. Cranial nerves II through XII grossly intact. Sensation diminished to light touch bilat LE in stocking pattern (-) babinksi bilat EXTREMITIES: 5\5 strength bilateral upper extremities. 4+/5 bilat hip flexors, knee extensors, and flexion, 0/5 ankle DF or EHL +bilat EL edema SKIN: lumbar wound with wound vac, no periwound inudratioin or erythema -sacrum non-blanchable erythema ASSESSMENT:45-year-old F with past medical history of brittle DM who presents status post multiple lumbar surgeries complicated by surgical site infection and bilateral foot drop PLAN: 1. Rehab- PT/OT- advance mobiltiy and ADLs, e-stim ok to use, c/u AFO, stretch, strengthen/maintain ROM all 4 limbs 2. Neuro- bilateral foot drop in setting of spinal cord injury following recent lumbar surgery, monitor for bowel/bladder incontinence or worsening weakness 3. Cardiac- hx of HTN with poorly controlled BPs, c/u hydralazine with holding parameters, medicine consulted to assist in overall management -patient with systolic heart murmur which she reports is not new and that she has this for years, will start low dose lasix for LE edema (patient reports she has had this prior to her hospitalization) 4. resp- monitor for infection, encourage incentive spirometry 5. Endo- brittle DM1, c/u ISS and BID long-acting with tight holding parameters to avoid hypoglycemia, additional FS order 3am to monitor for hypoglycemia, Ceftriaxone changed from D5 to NS to avoid hyperglycemia, consistent carb diet 6. ID- c/u ceftriaxone and wound vac for lumbar surgical site infection, f/u [facility] ID, will monitor CRP/ESR and consider inhouse ID consult, CRP trending down 7. Pain- chronic low back pain, c/u morphine, tizanidine, and gabapentin 8. Psych- c/u prozac and remeron for anxiety/depression 9. DVT ppx- lovenox 10. GI ppx- protonix 11. SKin- optifoam to bilat heels, offload heels with multipodus boots, zinc oxide to sacrum to avoid pressure ulcers 12. Dispo- TBD Allergies Coded Allergies: No Known Allergies (Verified , 12/05/20) Vital Signs Vital Signs Date Time Temp Pulse Resp B/P (MAP) Pulse Ox O2 Delivery O2 Flow Rate FiO2 12/14/20 08:54 18 Room Air 12/14/20 08:53 78 172/80 12/14/20 06:00 98.2 95 Laboratory Data CBC/BMP Laboratory Tests 12/14/20 08:56 Labs 24H Laboratory Tests 2 12/13/20 11:19: Bedside Glucose (Misc Panel) 188H 12/13/20 15:33: Bedside Glucose (Misc Panel) 54L 12/13/20 15:52: Bedside Glucose (Misc Panel) 49L 12/13/20 16:24: Bedside Glucose (Misc Panel) 83 12/13/20 19:58: Bedside Glucose (Misc Panel) 226H 12/14/20 03:16: Bedside Glucose (Misc Panel) 61L 12/14/20 04:00: Bedside Glucose (Misc Panel) 67L 12/14/20 05:29: Bedside Glucose (Misc Panel) 69L 12/14/20 08:56: Immature Granulocyte % (Auto) 0.6, Neutrophils (%) (Auto) 76.2H, Lymphocytes (%) (Auto) 11.7L, Monocytes (%) (Auto) 6.9H, Eosinophils (%) (Auto) 3.6H, Basophils (%) (Auto) 1.0, Neutrophils # (Auto) 5.5, Lymphocytes # (Auto) 0.9L, Monocytes # (Auto) 0.5, Eosinophils # (Auto) 0.3, Basophils # (Auto) 0.1, Nucleated Red Blood Cells % (auto) 0.0, Anion Gap 10, Glomerular Filtration Rate > 60.0, Calcium Level 8.6, C-Reactive Protein, Quantitative 2.73H 12/14/20 10:10: Bedside Glucose (Misc Panel) 244H Microbiology Microbiology 12/11/20 Blood Culture - Preliminary, Resulted No Growth after 48 hours. All Specime... 12/11/20 Blood Culture - Preliminary, Resulted No Growth after 48 hours. All Specime... Current Medications Current Medications Current Medications Medications (Trade) Dose Ordered Sig/Esmer Route PRN Reason Start Time Stop Time Status Last Admin Dose Admin Acetaminophen (Tylenol Tab) 1,000 mg TID PO 12/08/20 21:00 12/14/20 08:53 Amlodipine Besylate (Norvasc) 5 mg BID PO 12/12/20 21:00 12/14/20 08:53 Bisacodyl (Dulcolax Suppository) 10 mg DAILYPRN PRN [place]ST[place] 12/08/20 19:00 Calcium Carbonate (Tums) 1,000 mg Q4HP PRN PO HEARTBURN 12/08/20 19:00 Ceftriaxone Sodium 2 gm/ Dextrose 50 ml @ 100 mls/hr Q24H IV 12/09/20 17:00 12/11/20 08:42 DC 12/10/20 16:17 Ceftriaxone Sodium 2 gm/ Sodium Chloride 50 ml @ 100 mls/hr Q24H IV 12/11/20 17:00 12/13/20 16:04 Dextrose (Dextrose 50%) 25 ml ASDIRECTED PRN IV SEE LABEL COMMENTS 12/08/20 18:45 Docusate Sodium (Colace) 100 mg BID PO 12/08/20 21:00 12/14/20 08:52 Enoxaparin Sodium (Lovenox) 40 mg DAILY SC 12/09/20 09:00 12/14/20 08:54 Fluoxetine HCl (PROzac) 40 mg DAILY PO 12/09/20 09:00 12/14/20 08:53 Gabapentin (Neurontin) 600 mg TID PO 12/08/20 21:00 12/14/20 08:52 Glucagon (Glucagon) 1 mg ASDIRECTED PRN SC SEE LABEL COMMENTS 12/08/20 18:45 Glucose (Glucose) 16 GM ASDIRECTED PRN PO SEE LABEL COMMENTS 12/08/20 18:45 Heparin Sodium (Heparin (Flush)) 200 units ASDIRECTED PRN IV SEE LABEL COMMENTS 12/09/20 01:00 Heparin Sodium (Heparin (Flush)) 200 units PICC IV 12/09/20 06:00 12/14/20 05:11 Home Med (Med Rec Complete!) ASDIRECTED XX 12/08/20 19:30 12/08/20 19:26 DC Hydralazine HCl (Apresoline) 25 mg Q6H PO 12/08/20 18:00 12/14/20 05:31 Insulin Detemir (Levemir Insulin) 5 units BID SC 12/14/20 21:00 UNV Insulin Detemir (Levemir Insulin) 5 units DAILY SC 12/11/20 09:00 12/12/20 07:36 DC 12/11/20 09:43 Insulin Detemir (Levemir Insulin) 5 units QHS SC 12/11/20 21:00 12/12/20 07:36 DC Insulin Detemir (Levemir Insulin) 10 units BID SC 12/12/20 21:00 12/14/20 10:49 DC 12/13/20 21:32 Insulin Detemir (Levemir Insulin) 10 units QHS SC 12/09/20 21:00 12/11/20 12:34 DC 12/09/20 20:05 Insulin Human Lispro (HumaLOG INSULIN) SEE PROTOCOL TABLE AC SC 12/09/20 07:30 12/13/20 12:38 Insulin Human Lispro (HumaLOG INSULIN) SEE PROTOCOL TABLE QHS SC 12/08/20 21:00 12/11/20 03:35 Lactobacillus Acidophilus (Bacid) 1 ea WMHS PO 12/08/20 21:00 12/14/20 08:52 Mirtazapine (Remeron) 30 mg QHS PO 12/08/20 21:00 12/13/20 21:33 Morphine Sulfate (Morphine Sulfate Oral Solution) 5 mg Q6HP PRN PO SEVERE PAIN (PS 8-10) 12/08/20 19:00 12/11/20 13:39 Morphine Sulfate (Ms Contin) 60 mg Q12H PO 12/08/20 21:00 12/14/20 08:54 Ondansetron HCl (Zofran Odt) 4 mg Q6HP PRN PO NAUSEA OR VOMITING 12/08/20 19:00 Pantoprazole Sodium (Protonix) 40 mg DAILY PO 12/09/20 09:00 12/14/20 08:52 Senna (Senokot) 1 tab QHS PO 12/08/20 21:00 12/13/20 21:32 Sodium Chloride (Saline Lock Flush) 10 ml ASDIRECTED PRN IV SEE LABEL COMMENTS 12/09/20 01:00 Sodium Chloride (Saline Lock Flush) 10 ml PICC IV 12/09/20 06:00 12/14/20 05:10 Tizanidine HCl (Zanaflex) 4 mg QID PO 12/08/20 21:00 12/14/20 08:52 LAURYN AMANDA MD Dec 14, 2020 10:50
[2020-12-14] MEDS: lisinopriL 5 MG TAB PO SCH (12:15)
[2020-12-14 14:00] VITALS: BP 140/70
[2020-12-14] MEDS: MORPHINE SULFATE ORAL SOLN 10 MG/5 ML UD PO PRN (15:04)
[2020-12-14 17:00] VITALS: BP 165/85
[2020-12-14] MEDS: cefTRIAXone SOD 2 GM in NS MINI-BAG PLUS 50 ML IV SCH (17:10)
[2020-12-14] MEDS: FUROSEMIDE 20 MG TAB PO SCH (17:11)
[2020-12-14 20:00] VITALS: BP 144/75
[2020-12-14] MEDS: SENNA 8.6 MG TAB (SENOKOT) PO SCH (21:00)
[2020-12-14] MEDS ORDERED: LEVEMIR (INSULIN DETEMIR) 1 UNITS/0.01ML SC SCH (21:00)
[2020-12-14] MEDS: MIRTAZAPINE 15 MG TAB PO SCH (21:17)
[2020-12-15] MEDS: SODIUM CHLORIDE 0.9% INJ 10 ML SYR IV SCH ×2 (05:25→17:16)
[2020-12-15 06:00] VITALS: BP 192/80
[2020-12-15 06:26] VITALS: BP 165/75
[2020-12-15] MEDS: ENOXAPARIN 40MG/0.4ML SYRINGE (J1650 PER 10MG) SC SCH (07:25)
[2020-12-15] MEDS: MORPHINE 30 MG SA TAB PO SCH ×2 (07:25→20:48)
[2020-12-15] MEDS: FLUoxetine 20 MG CAP PO SCH (07:25)
[2020-12-15] MEDS: tiZANidine 4 MG TAB PO SCH ×4 (07:26→20:48)
[2020-12-15] MEDS: PANTOPRAZOLE 40MG TAB (PROTONIX) PO SCH (07:26)
[2020-12-15] MEDS: GABAPENTIN 300 MG CAP PO SCH ×3 (07:26→20:47)
[2020-12-15] MEDS: FUROSEMIDE 20 MG TAB PO SCH (07:26)
[2020-12-15] MEDS: LACTOBACILLUS ACIDOPHILUS CAP (BACID) PO SCH ×4 (07:26→20:47)
[2020-12-15] MEDS: ACETAMINOPHEN 500 MG TAB PO SCH ×3 (07:26→20:47)
[2020-12-15] MEDS: lisinopriL 5 MG TAB PO SCH (07:27)
[2020-12-15] MEDS: amLODIPine 5 MG TAB PO SCH ×2 (07:27→20:49)
[2020-12-15] MEDS: REMEDY PHYTOPLEX Z-GUARD PASTE 113GM TUBE (FROM STOREROOM PRODUCT) TOP SCH ×3 (07:28→20:49)
[2020-12-15] MEDS: DOCUSATE SODIUM 100MG CAPSULE PO SCH ×2 (07:28→20:47)
[2020-12-15] MEDS: HumaLOG INSULIN (NovoLOG) PER UNIT SC SCH ×4 (07:28→20:49)
[2020-12-15] MEDS: LEVEMIR (INSULIN DETEMIR) 1 UNITS/0.01ML SC SCH (07:28)
[2020-12-15 14:00] VITALS: BP 95/53
[2020-12-15] MEDS: cefTRIAXone SOD 2 GM in NS MINI-BAG PLUS 50 ML IV SCH (17:16)
[2020-12-15 20:00] VITALS: BP 118/66
[2020-12-15] MEDS: SENNA 8.6 MG TAB (SENOKOT) PO SCH (20:47)
[2020-12-15] MEDS: MIRTAZAPINE 15 MG TAB PO SCH (20:48)
[2020-12-16 06:00] VITALS: BP 156/84
[2020-12-16] MEDS: SODIUM CHLORIDE 0.9% INJ 10 ML SYR IV SCH ×2 (06:22→16:20)
[2020-12-16] MEDS: LEVEMIR (INSULIN DETEMIR) 1 UNITS/0.01ML SC SCH (07:38)
[2020-12-16] MEDS: HumaLOG INSULIN (NovoLOG) PER UNIT SC SCH ×4 (07:44→21:00)
[2020-12-16] MEDS: ENOXAPARIN 40MG/0.4ML SYRINGE (J1650 PER 10MG) SC SCH (07:44)
[2020-12-16] MEDS: tiZANidine 4 MG TAB PO SCH ×4 (07:44→21:00)
[2020-12-16] MEDS: lisinopriL 5 MG TAB PO SCH (07:45)
[2020-12-16] MEDS: FUROSEMIDE 20 MG TAB PO SCH (07:45)
[2020-12-16] MEDS: GABAPENTIN 300 MG CAP PO SCH ×3 (07:46→21:00)
[2020-12-16] MEDS: LACTOBACILLUS ACIDOPHILUS CAP (BACID) PO SCH ×4 (07:46→21:01)
[2020-12-16] MEDS: FLUoxetine 20 MG CAP PO SCH (07:46)
[2020-12-16] MEDS: MORPHINE 30 MG SA TAB PO SCH ×2 (07:46→21:00)
[2020-12-16] MEDS: amLODIPine 5 MG TAB PO SCH ×2 (07:46→21:00)
[2020-12-16] MEDS: DOCUSATE SODIUM 100MG CAPSULE PO SCH ×2 (07:47→21:00)
[2020-12-16] MEDS: ACETAMINOPHEN 500 MG TAB PO SCH ×3 (07:47→21:01)
[2020-12-16] MEDS: REMEDY PHYTOPLEX Z-GUARD PASTE 113GM TUBE (FROM STOREROOM PRODUCT) TOP SCH ×3 (07:47→21:01)
[2020-12-16] MEDS: PANTOPRAZOLE 40MG TAB (PROTONIX) PO SCH (07:47)
[2020-12-16 08:05] LABS: BASO # 0.1 10^3/uL (0.0-0.2); BASO % 1.4 % (0.0-1.0); EOS # 0.3 10^3/uL (0.0-0.5); EOS % 5.5 % (0.0-3.0); HEMATOCRIT 33.8 % (36.0-47.0); HEMOGLOBIN 9.8 g/dl (12.0-15.5); LYMPH # 1.3 10^3/uL (1.5-5.0); LYMPH % 23.2 % (24.0-44.0); MEAN CORPUSCULAR HEMOGLOBIN 27.7 pg (27.0-33.0); MEAN CORPUSCULAR VOLUME 95.5 fl (80.0-96.0); MONO # 0.5 10^3/uL (0.0-0.8); NEUTROPHILS # 3.4 10^3/uL (1.5-8.5); NEUTROPHILS % 61.5 % (36.0-66.0); PLATELET COUNT, AUTOMATED 379 10^3/uL (150-450); RED BLOOD COUNT 3.54 10^6/uL (4.00-5.40); WHITE BLOOD COUNT 5.6 10^3/uL (4.0-10.0)
[2020-12-16 08:31] LABS: BLOOD UREA NITROGEN 11 MG/DL (7-18); CALCIUM LEVEL 9.2 MG/DL (8.5-10.1); CARBON DIOXIDE LEVEL 31 MEQ/L (21-32); CHLORIDE LEVEL 101 MEQ/L (98-107); CREATININE FOR GFR 0.64 MG/DL (0.55-1.30); GLOMERULAR FILTRATION RATE > 60.0 (>58); GLUCOSE, FASTING 186 MG/DL (70-100); POTASSIUM SERUM 4.5 MEQ/L (3.5-5.1); SODIUM LEVEL 140 MEQ/L (136-145)
--- NOTE | 2020-12-16 10:44 | IPNPDOC ---
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 She feels ready to go home on Monday. REVIEW OF SYSTEMS: The following is a completed review of systems and has been reviewed. Review of systems otherwise unremarkable. PAIN: Patient self reports low back pain EYES: No recent vision changes EARS, NOSE, & THROAT: No throat pain, or dysphagia, or rhinorrhea CARDIOVASCULAR: Denies chest pain or palpitation PULMONARY: Denies shortness of breath GASTROINTESTINAL: Denies constipation/diarrhea GENITOURINARY: denies dysuria or incontinence. MUSCULOSKELETAL: bilat foot drop NEUROLOGICAL:bilat foot drop, peripheral polyneuropathy HEMATOLOGICAL: denies easy bruising SKIN: lumbar wound PSYCHIATRIC: Unremarkable All other review of systems found to be negative. PHYSICAL EXAMINATION: VITAL SIGNS: Please see below. GENERAL: Pleasant and cooperative. No acute distress. HEENT: PERRL. Extraocular movements intact. Clear conjunctiva CARDIOVASCULAR: Regular rate and rhythm. +systolic murmur, rubs, or gallops LUNGS: Clear to auscultation bilaterally. No wheezes. No rhonchi ABDOMEN: Soft, nontender, nondistended. Positive bowel sounds. Normal active bowel sounds NEUROLOGICAL: Alert and oriented times three. Cranial nerves II through XII grossly intact. Sensation diminished to light touch bilat LE in stocking pattern (-) babinksi bilat EXTREMITIES: 5\5 strength bilateral upper extremities. 4+/5 bilat hip flexors, knee extensors, and flexion, 0/5 ankle DF or EHL +bilat EL edema SKIN: lumbar wound with wound vac, no periwound inudratioin or erythema -sacrum non-blanchable erythema ASSESSMENT:45-year-old F with past medical history of brittle DM who presents status post multiple lumbar surgeries complicated by surgical site infection and bilateral foot drop PLAN: 1. Rehab- PT/OT- advance mobiltiy and ADLs, e-stim ok to use, c/u AFO, stretch, strengthen/maintain ROM all 4 limbs 2. Neuro- bilateral foot drop in setting of spinal cord injury following recent lumbar surgery, monitor for bowel/bladder incontinence or worsening weakness 3. Cardiac- hx of HTN with poorly controlled BPs, c/u hydralazine with holding parameters, medicine consulted to assist in overall management -patient with systolic heart murmur which she reports is not new and that she has this for years, c/u low dose lasix for LE edema (patient reports she has had this prior to her hospitalization) 4. resp- monitor for infection, encourage incentive spirometry 5. Endo- brittle DM1, c/u ISS and BID long-acting with tight holding parameters to avoid hypoglycemia, additional FS order 3am to monitor for hypoglycemia, Ceftriaxone changed from D5 to NS to avoid hyperglycemia, consistent carb diet 6. ID- c/u ceftriaxone and wound vac for lumbar surgical site infection, f/u [facility], will monitor CRP/ESR and consider inhouse ID consult, CRP trending down 7. Pain- chronic low back pain, c/u morphine, tizanidine, and gabapentin 8. Psych- c/u prozac and remeron for anxiety/depression 9. DVT ppx- lovenox 10. GI ppx- protonix 11. SKin- optifoam to bilat heels, offload heels with multipodus boots, zinc oxide to sacrum to avoid pressure ulcers 12. Dispo- 12-17-20 to home, progressing towards goals Allergies Coded Allergies: No Known Allergies (Verified , 12/05/20) Vital Signs Vital Signs Date Time Temp Pulse Resp B/P (MAP) Pulse Ox O2 Delivery O2 Flow Rate FiO2 12/16/20 07:46 81 156/84 12/16/20 07:46 16 12/16/20 06:00 98.2 95 Room Air Laboratory Data CBC/BMP Laboratory Tests 12/16/20 07:37 Labs 24H Laboratory Tests 2 12/15/20 12:06: Bedside Glucose (Misc Panel) 233H 12/15/20 13:58: Bedside Glucose (Misc Panel) 89 12/15/20 16:59: Bedside Glucose (Misc Panel) 77 12/15/20 19:48: Bedside Glucose (Misc Panel) 272H 12/16/20 05:31: Bedside Glucose (Misc Panel) 132H 12/16/20 07:37: Immature Granulocyte % (Auto) 0.4, Neutrophils (%) (Auto) 61.5, Lymphocytes (%) (Auto) 23.2L, Monocytes (%) (Auto) 8.0H, Eosinophils (%) (Auto) 5.5H, Basophils (%) (Auto) 1.4H, Neutrophils # (Auto) 3.4, Lymphocytes # (Auto) 1.3L, Monocytes # (Auto) 0.5, Eosinophils # (Auto) 0.3, Basophils # (Auto) 0.1, Nucleated Red B lood Cells % (auto) 0.0, Anion Gap 8, Glomerular Filtration Rate > 60.0, Calcium Level 9.2 Microbiology Microbiology 12/11/20 Blood Culture - Preliminary, Resulted No Growth after 72 hours. All specime... 12/11/20 Blood Culture - Preliminary, Resulted No Growth after 72 hours. All specime... Current Medications Current Medications Current Medications Medications (Trade) Dose Ordered Sig/Esmer Route PRN Reason Start Time Stop Time Status Last Admin Dose Admin Acetaminophen (Tylenol Tab) 1,000 mg TID PO 12/08/20 21:00 12/16/20 07:47 Amlodipine Besylate (Norvasc) 5 mg BID PO 12/12/20 21:00 12/16/20 07:46 Bisacodyl (Dulcolax Suppository) 10 mg DAILYPRN PRN [place] CONSTIPATION 12/08/20 19:00 Calcium Carbonate (Tums) 1,000 mg Q4HP PRN PO HEARTBURN 12/08/20 19:00 Ceftriaxone Sodium 2 gm/ Dextrose 50 ml @ 100 mls/hr Q24H IV 12/09/20 17:00 12/11/20 08:42 DC 12/10/20 16:17 Ceftriaxone Sodium 2 gm/ Sodium Chloride 50 ml @ 100 mls/hr Q24H IV 12/11/20 17:00 12/15/20 17:16 Dextrose (Dextrose 50%) 25 ml ASDIRECTED PRN IV SEE LABEL COMMENTS 12/08/20 18:45 Docusate Sodium (Colace) 100 mg BID PO 12/08/20 21:00 12/15/20 20:47 Enoxaparin Sodium (Lovenox) 40 mg DAILY SC 12/09/20 09:00 12/16/20 07:44 Fluoxetine HCl (PROzac) 40 mg DAILY PO 12/09/20 09:00 12/16/20 07:46 Furosemide (Lasix) 20 mg DAILY PO 12/14/20 09:00 12/16/20 07:45 Gabapentin (Neurontin) 600 mg TID PO 12/08/20 21:00 12/16/20 07:46 Glucagon (Glucagon) 1 mg ASDIRECTED PRN SC SEE LABEL COMMENTS 12/08/20 18:45 Glucose (Glucose) 16 GM ASDIRECTED PRN PO SEE LABEL COMMENTS 12/08/20 18:45 Heparin Sodium (Heparin (Flush)) 200 units ASDIRECTED PRN IV SEE LABEL COMMENTS 12/09/20 01:00 Heparin Sodium (Heparin (Flush)) 200 units PICC IV 12/09/20 06:00 12/16/20 06:21 Home Med (Med Rec Complete!) ASDIRECTED XX 12/08/20 19:30 12/08/20 19:26 DC Hydralazine HCl (Apresoline) 25 mg Q6H PO 12/08/20 18:00 12/14/20 11:23 DC 12/14/20 05:31 Insulin Detemir (Levemir Insulin) 5 units BID SC 12/14/20 21:00 12/14/20 11:24 DC Insulin Detemir (Levemir Insulin) 5 units DAILY SC 12/11/20 09:00 12/12/20 07:36 DC 12/11/20 09:43 Insulin Detemir (Levemir Insulin) 5 units QHS SC 12/11/20 21:00 12/12/20 07:36 DC Insulin Detemir (Levemir Insulin) 10 units BID SC 12/12/20 21:00 12/14/20 10:49 DC 12/13/20 21:32 Insulin Detemir (Levemir Insulin) 10 units QAM SC 12/15/20 09:00 12/15/20 07:28 Insulin Detemir (Levemir Insulin) 10 units QHS SC 12/09/20 21:00 12/11/20 12:34 DC 12/09/20 20:05 Insulin Human Lispro (HumaLOG INSULIN) SEE PROTOCOL TABLE AC SC 12/09/20 07:30 12/16/20 07:44 Insulin Human Lispro (HumaLOG INSULIN) SEE PROTOCOL TABLE QHS SC 12/08/20 21:00 12/15/20 20:49 Lactobacillus Acidophilus (Bacid) 1 ea WMHS PO 12/08/20 21:00 12/16/20 07:46 Lisinopril (Prinivil) 5 mg DAILY PO 12/14/20 09:00 12/16/20 07:45 Mirtazapine (Remeron) 30 mg QHS PO 12/08/20 21:00 12/15/20 20:48 Morphine Sulfate (Morphine Sulfate Oral Solution) 5 mg Q6HP PRN PO SEVERE PAIN (PS 8-10) 12/08/20 19:00 12/14/20 15:04 Morphine Sulfate (Ms Contin) 60 mg Q12H PO 12/08/20 21:00 12/16/20 07:46 Ondansetron HCl (Zofran Odt) 4 mg Q6HP PRN PO NAUSEA OR VOMITING 12/08/20 19:00 Pantoprazole Sodium (Protonix) 40 mg DAILY PO 12/09/20 09:00 12/16/20 07:47 Senna (Senokot) 1 tab QHS PO 12/08/20 21:00 12/15/20 20:47 Sodium Chloride (Saline Lock Flush) 10 ml ASDIRECTED PRN IV SEE LABEL COMMENTS 12/09/20 01:00 Sodium Chloride (Saline Lock Flush) 10 ml PICC IV 12/09/20 06:00 12/16/20 06:22 Tizanidine HCl (Zanaflex) 4 mg QID PO 12/08/20 21:00 12/16/20 07:44 LAURYN AMANDA MD Dec 16, 2020 10:44
[2020-12-16] MEDS ORDERED: RISATAB3 PO (10:53)
[2020-12-16] MEDS ORDERED: FLUO40CA PO (10:53)
[2020-12-16] MEDS ORDERED: PANT40TA29 PO (10:53)
[2020-12-16] MEDS ORDERED: GABA-282 PO (10:53)
[2020-12-16] MEDS ORDERED: LISI-542 PO (10:53)
[2020-12-16] MEDS ORDERED: MIRT-60 PO (10:53)
[2020-12-16] MEDS ORDERED: BASA100I SC (10:53)
[2020-12-16] MEDS ORDERED: TIZA4TAB4 PO (10:53)
[2020-12-16] MEDS ORDERED: FURO20TA2 PO (10:53)
[2020-12-16] MEDS: MORPHINE SULFATE ORAL SOLN 10 MG/5 ML UD PO PRN (12:20)
[2020-12-16 14:00] VITALS: BP 152/80
[2020-12-16] MEDS: cefTRIAXone SOD 2 GM in NS MINI-BAG PLUS 50 ML IV SCH (16:20)
[2020-12-16 20:00] VITALS: BP 182/76
[2020-12-16] MEDS: MIRTAZAPINE 15 MG TAB PO SCH (21:00)
[2020-12-16] MEDS: SENNA 8.6 MG TAB (SENOKOT) PO SCH (21:01)
[2020-12-17] MEDS ORDERED: HumaLOG INSULIN (NovoLOG) PER UNIT SC ONE (01:30)
[2020-12-17] MEDS: SODIUM CHLORIDE 0.9% INJ 10 ML SYR IV SCH (05:46)
[2020-12-17 06:00] VITALS: BP 162/84
[2020-12-17] MEDS: LEVEMIR (INSULIN DETEMIR) 1 UNITS/0.01ML SC SCH (08:42)
[2020-12-17] MEDS: ENOXAPARIN 40MG/0.4ML SYRINGE (J1650 PER 10MG) SC SCH (08:43)
[2020-12-17] MEDS: HumaLOG INSULIN (NovoLOG) PER UNIT SC SCH ×2 (08:43→12:51)
[2020-12-17] MEDS: GABAPENTIN 300 MG CAP PO SCH (08:43)
[2020-12-17] MEDS: LACTOBACILLUS ACIDOPHILUS CAP (BACID) PO SCH ×2 (08:44→12:51)
[2020-12-17] MEDS: DOCUSATE SODIUM 100MG CAPSULE PO SCH (08:44)
[2020-12-17] MEDS: PANTOPRAZOLE 40MG TAB (PROTONIX) PO SCH (08:45)
[2020-12-17] MEDS: FLUoxetine 20 MG CAP PO SCH (08:45)
[2020-12-17 08:51] VITALS: BP 148/60
[2020-12-17] MEDS: lisinopriL 5 MG TAB PO SCH (08:51)
[2020-12-17] MEDS: amLODIPine 5 MG TAB PO SCH (08:51)
[2020-12-17] MEDS: MORPHINE 30 MG SA TAB PO SCH (08:52)
[2020-12-17] MEDS: FUROSEMIDE 20 MG TAB PO SCH (08:52)
[2020-12-17] MEDS: tiZANidine 4 MG TAB PO SCH ×2 (08:52→12:51)
[2020-12-17] MEDS: ACETAMINOPHEN 500 MG TAB PO SCH (08:53)
[2020-12-17] MEDS: REMEDY PHYTOPLEX Z-GUARD PASTE 113GM TUBE (FROM STOREROOM PRODUCT) TOP SCH (09:00)
[2020-12-17] MEDS ORDERED: LISI-538 PO (10:29)
--- NOTE | 2020-12-17 10:33 | IPNPDOC ---
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 Review of systems otherwise unremarkable. PAIN: Patient self reports low back pain EYES: No recent vision changes EARS, NOSE, & THROAT: No throat pain, or dysphagia, or rhinorrhea CARDIOVASCULAR: Denies chest pain or palpitation PULMONARY: Denies shortness of breath GASTROINTESTINAL: Denies constipation/diarrhea GENITOURINARY: denies dysuria or incontinence. MUSCULOSKELETAL: bilat foot drop NEUROLOGICAL:bilat foot drop, peripheral polyneuropathy HEMATOLOGICAL: denies easy bruising SKIN: lumbar wound PSYCHIATRIC: Unremarkable All other review of systems found to be negative. PHYSICAL EXAMINATION: VITAL SIGNS: Please see below. GENERAL: Pleasant and cooperative. No acute distress. HEENT: PERRL. Extraocular movements intact. Clear conjunctiva CARDIOVASCULAR: Regular rate and rhythm. +systolic murmur, rubs, or gallops LUNGS: Clear to auscultation bilaterally. No wheezes. No rhonchi ABDOMEN: Soft, nontender, nondistended. Positive bowel sounds. Normal active bowel sounds NEUROLOGICAL: Alert and oriented times three. Cranial nerves II through XII grossly intact. Sensation diminished to light touch bilat LE in stocking pattern (-) babinksi bilat EXTREMITIES: 5\5 strength bilateral upper extremities. 4+/5 bilat hip flexors, knee extensors, and flexion, 0/5 ankle DF or EHL +bilat EL edema SKIN: lumbar wound with wound vac, no periwound inudratioin or erythema -sacrum non-blanchable erythema ASSESSMENT:45-year-old F with past medical history of brittle DM who presents status post multiple lumbar surgeries complicated by surgical site infection and bilateral foot drop PLAN: 1. Rehab- PT/OT- advance mobiltiy and ADLs, e-stim ok to use, c/u AFO, stretch, strengthen/maintain ROM all 4 limbs 2. Neuro- bilateral foot drop in setting of spinal cord injury following recent lumbar surgery, monitor for bowel/bladder incontinence or worsening weakness 3. Cardiac- hx of HTN with poorly controlled BPs, c/u hydralazine with holding parameters, medicine consulted to assist in overall management -patient with systolic heart murmur which she reports is not new and that she has this for years, c/u low dose lasix for LE edema (patient reports she has had this prior to her hospitalization) 4. resp- monitor for infection, encourage incentive spirometry 5. Endo- brittle DM1, c/u ISS and BID long-acting with tight holding parameters to avoid hypoglycemia, additional FS order 3am to monitor for hypoglycemia, Ceftriaxone changed from D5 to NS to avoid hyperglycemia, consistent carb diet 6. ID- c/u ceftriaxone and wound vac for lumbar surgical site infection, f/u [facility] ID, will monitor CRP/ESR and consider inhouse ID consult, CRP trending down 7. Pain- chronic low back pain, c/u morphine, tizanidine, and gabapentin 8. Psych- c/u prozac and remeron for anxiety/depression 9. DVT ppx- lovenox 10. GI ppx- protonix 11. SKin- optifoam to bilat heels, offload heels with multipodus boots, zinc oxide to sacrum to avoid pressure ulcers 12. Dispo- 12-17-20 to home, progressing towards goals Allergies Coded Allergies: No Known Allergies (Verified , 12/05/20) Vital Signs Vital Signs Date Time Temp Pulse Resp B/P (MAP) Pulse Ox O2 Delivery O2 Flow Rate FiO2 12/17/20 08:52 18 Room Air 12/17/20 08:51 148/60 12/17/20 08:51 98 12/17/20 06:00 97.8 94 Laboratory Data Labs 24H Laboratory Tests 2 12/16/20 11:14: Bedside Glucose (Misc Panel) 180H 12/16/20 16:37: Bedside Glucose (Misc Panel) 193H 12/16/20 20:57: Bedside Glucose (Misc Panel) 120H 12/17/20 00:59: Bedside Glucose (Misc Panel) 308H 12/17/20 03:12: Bedside Glucose (Misc Panel) 245H 12/17/20 06:28: Bedside Glucose (Misc Panel) 234H Microbiology Microbiology 12/11/20 Blood Culture - Final, Complete NO GROWTH AFTER 5 DAYS 12/11/20 Blood Culture - Final, Complete NO GROWTH AFTER 5 DAYS Current Medications Current Medications Current Medications Medications (Trade) Dose Ordered Sig/Esmer Route PRN Reason Start Time Stop Time Status Last Admin Dose Admin Acetaminophen (Tylenol Tab) 1,000 mg TID PO 12/08/20 21:00 12/17/20 08:53 Amlodipine Besylate (Norvasc) 5 mg BID PO 12/12/20 21:00 12/17/20 08:51 Bisacodyl (Dulcolax Suppository) 10 mg DAILYPRN PRN [place] CONSTIPATION 12/08/20 19:00 Calcium Carbonate (Tums) 1,000 mg Q4HP PRN PO HEARTBURN 12/08/20 19:00 Ceftriaxone Sodium 2 gm/ Dextrose 50 ml @ 100 mls/hr Q24H IV 12/09/20 17:00 12/11/20 08:42 DC 12/10/20 16:17 Ceftriaxone Sodium 2 gm/ Sodium Chloride 50 ml @ 100 mls/hr Q24H IV 12/11/20 17:00 12/16/20 16:20 Dextrose (Dextrose 50%) 25 ml ASDIRECTED PRN IV SEE LABEL COMMENTS 12/08/20 18:45 Docusate Sodium (Colace) 100 mg BID PO 12/08/20 21:00 12/17/20 08:44 Enoxaparin Sodium (Lovenox) 40 mg DAILY SC 12/09/20 09:00 12/17/20 08:43 Fluoxetine HCl (PROzac) 40 mg DAILY PO 12/09/20 09:00 12/17/20 08:45 Furosemide (Lasix) 20 mg DAILY PO 12/14/20 09:00 12/17/20 08:52 Gabapentin (Neurontin) 600 mg TID PO 12/08/20 21:00 12/17/20 08:43 Glucagon (Glucagon) 1 mg ASDIRECTED PRN SC SEE LABEL COMMENTS 12/08/20 18:45 Glucose (Glucose) 16 GM ASDIRECTED PRN PO SEE LABEL COMMENTS 12/08/20 18:45 Heparin Sodium (Heparin (Flush)) 200 units ASDIRECTED PRN IV SEE LABEL COMMENTS 12/09/20 01:00 Heparin Sodium (Heparin (Flush)) 200 units PICC IV 12/09/20 06:00 12/17/20 05:46 Home Med (Med Rec Complete!) ASDIRECTED XX 12/08/20 19:30 12/08/20 19:26 DC Hydralazine HCl (Apresoline) 25 mg Q6H PO 12/08/20 18:00 12/14/20 11:23 DC 12/14/20 05:31 Insulin Detemir (Levemir Insulin) 5 units BID SC 12/14/20 21:00 12/14/20 11:24 DC Insulin Detemir (Levemir Insulin) 5 units DAILY SC 12/11/20 09:00 12/12/20 07:36 DC 12/11/20 09:43 Insulin Detemir (Levemir Insulin) 5 units QHS SC 12/11/20 21:00 12/12/20 07:36 DC Insulin Detemir (Levemir Insulin) 10 units BID SC 12/12/20 21:00 12/14/20 10:49 DC 12/13/20 21:32 Insulin Detemir (Levemir Insulin) 10 units QAM SC 12/15/20 09:00 12/17/20 08:42 Insulin Detemir (Levemir Insulin) 10 units QHS SC 12/09/20 21:00 12/11/20 12:34 DC 12/09/20 20:05 Insulin Human Lispro (HumaLOG INSULIN) SEE PROTOCOL TABLE AC SC 12/09/20 07:30 12/17/20 08:43 Insulin Human Lispro (HumaLOG INSULIN) SEE PROTOCOL TABLE QHS SC 12/08/20 21:00 12/15/20 20:49 Lactobacillus Acidophilus (Bacid) 1 ea WMHS PO 12/08/20 21:00 12/17/20 08:44 Lisinopril (Prinivil) 5 mg DAILY PO 12/14/20 09:00 12/17/20 08:51 Mirtazapine (Remeron) 30 mg QHS PO 12/08/20 21:00 12/16/20 21:00 Morphine Sulfate (Morphine Sulfate Oral Solution) 5 mg Q6HP PRN PO SEVERE PAIN (PS 8-10) 12/08/20 19:00 12/16/20 12:20 Morphine Sulfate (Ms Contin) 60 mg Q12H PO 12/08/20 21:00 12/17/20 08:52 Ondansetron HCl (Zofran Odt) 4 mg Q6HP PRN PO NAUSEA OR VOMITING 12/08/20 19:00 Pantoprazole Sodium (Protonix) 40 mg DAILY PO 12/09/20 09:00 12/17/20 08:45 Senna (Senokot) 1 tab QHS PO 12/08/20 21:00 12/16/20 21:01 Sodium Chloride (Saline Lock Flush) 10 ml ASDIRECTED PRN IV SEE LABEL COMMENTS 12/09/20 01:00 Sodium Chloride (Saline Lock Flush) 10 ml PICC IV 12/09/20 06:00 12/17/20 05:46 Tizanidine HCl (Zanaflex) 4 mg QID PO 12/08/20 21:00 12/17/20 08:52 LAURYN AMANDA MD Dec 17, 2020 10:33
--- NOTE | 2020-12-17 10:39 | PMRDS ---
NAME: CORNELIO MESA [facility] WT ID#: [id number] : 1975 JOB: [id number] ROMELIA: 12/08/2020 ACCT: [id number] DOCTOR: LAURYN AMANDA MD PMR DISCHARGE SUMMARY DATE OF ADMISSION: 12/08/2020 DATE OF DISCHARGE: 12/17/2020 CHIEF COMPLAINT/DISCHARGE DIAGNOSIS: Spinal cord injury with bilateral footdrop. HISTORY OF PRESENT ILLNESS: This is a 45-year-old female with brittle diabetes Type 1, autoimmune thyroiditis, chronic low back pain, anxiety/depression without underwent lumbar surgery on 09/15/2020 and 11/06/20 with bilateral footdrop who presented to [facility] ED on 12/04/2020 with bilateral leg pain and persistent low back pain. She reportedly had undergone an I and D of her surgical wound on 11/24/2020 with Wound-Vac placement and was seen by ID at [place] who recommended Ceftriaxone for six weeks total. She had episodes of hypoglycemia and hyperglycemia in addition to nausea and vomiting, thought to be due to opiate withdrawal and gastroparesis. She was evaluated by therapy, found to have impairments in mobility and ADLs and requiring bilateral AFOs for ambulation and deemed medically appropriate for discharge to ARU on 12/08/2020. PAST MEDICAL HISTORY: As per HPI. HOSPITAL COURSE: The patient was admitted and enrolled in a comprehensive PT/OT program. She received 24 hour nursing supervision and weekly team meetings were held to discuss her progress. The patient continued to have episodes of hyperglycemia and hypoglycemia during her hospital course for which long-acting insulin doses were adjusted and parameters were also adjusted as well with moderate improvements in her fluctuations. Her CRP trended down while on Ceftriaxone and she received Wound-Vac dressing changes three times a week. The patient was started on Lasix for lower extremity edema and was able to ambulate with and without AFOs in therapy making strong functional gains and deemed medically appropriate to discharge home with follow-up with Surgery and Infectious Disease. DISCHARGE MEDICATIONS: As per instructions. FUNCTIONAL HISTORY: On discharge the patient was modified independent for all functional transfers and for ambulation. Thank you for this referral.
[2020-12-17] MEDS: cefTRIAXone SOD 2 GM in NS MINI-BAG PLUS 50 ML IV SCH (12:50)
== END 2020-12-17 13:30 | disposition home health service (06) | DRG 351 ==
LOC: M PM&R 12-08 18:05
PROVIDERS: ADMIT Physical Medicine & Rehabilitation; ATTEND Physical Medicine & Rehabilitation
DX: M21.371 Foot drop, right foot (principal); E10.41 Type 1 diabetes mellitus with diabetic mononeuropathy; E10.649 Type 1 diabetes mellitus with hypoglycemia without coma; E10.42 Type 1 diabetes mellitus with diabetic polyneuropathy; E10.65 Type 1 diabetes mellitus with hyperglycemia; M96.89 Other intraoperative and postprocedural complications and disorders of the musculoskeletal system; E06.3 Autoimmune thyroiditis; M54.5 Low back pain; F41.9 Anxiety disorder, unspecified; I10 Essential (primary) hypertension; T81.49XD Infection following a procedure, other surgical site, subsequent encounter; R01.1 Cardiac murmur, unspecified; D63.8 Anemia in other chronic diseases classified elsewhere; F32.9 Major depressive disorder, single episode, unspecified; Z87.891 Personal history of nicotine dependence; Z74.09 Other reduced mobility; Z74.1 Need for assistance with personal care; Z79.4 Long term (current) use of insulin; Z79.891 Long term (current) use of opiate analgesic; Z79.899 Other long term (current) drug therapy; Z98.890 Other specified postprocedural states; M21.372 Foot drop, left foot

== ENCOUNTER → 2020-12-21 | Outpatient (REF) | payer OTHER ==
[~2020-12-21] MED LIST changes: +FURO20TA2 PO; +LISI-538 PO; +LISI-542 PO; +ONDA8TAB8 SL; +PANT-23 PO; +RISATAB3 PO
[2020-12-21 18:28] LABS: ALBUMIN 2.9 GM/DL (3.2-5.2); ALT/SGPT 25 U/L (12-78); BILIRUBIN,TOTAL < 0.1 MG/DL (0.2-1.0); BLOOD UREA NITROGEN 12 MG/DL (7-18); C REACTIVE PROTEIN QUANTITATIV 1.88 MG/DL (0.00-0.30); CALCIUM LEVEL 8.8 MG/DL (8.5-10.1); CARBON DIOXIDE LEVEL 32 MEQ/L (21-32); CHLORIDE LEVEL 98 MEQ/L (98-107); CREATININE FOR GFR 0.72 MG/DL (0.55-1.30); GLOMERULAR FILTRATION RATE > 60.0 (>58); GLUCOSE, FASTING 166 MG/DL (70-100); POTASSIUM SERUM 4.1 MEQ/L (3.5-5.1); SODIUM LEVEL 135 MEQ/L (136-145); TOTAL PROTEIN 7.8 GM/DL (6.4-8.2)
[2020-12-21 18:50] LABS: BASO # 0.1 10^3/uL (0.0-0.2); BASO % 1.7 % (0.0-1.0); EOS # 0.4 10^3/uL (0.0-0.5); EOS % 4.9 % (0.0-3.0); HEMATOCRIT 32.8 % (36.0-47.0); HEMOGLOBIN 9.6 g/dl (12.0-15.5); LYMPH # 1.9 10^3/uL (1.5-5.0); LYMPH % 22.4 % (24.0-44.0); MEAN CORPUSCULAR HEMOGLOBIN 28.2 pg (27.0-33.0); MEAN CORPUSCULAR HGB CONC 29.3 g/dl (32.0-36.5); MEAN CORPUSCULAR VOLUME 96.5 fl (80.0-96.0); MONO # 0.6 10^3/uL (0.0-0.8); NEUTROPHILS # 5.4 10^3/uL (1.5-8.5); NEUTROPHILS % 63.6 % (36.0-66.0); PLATELET COUNT, AUTOMATED 470 10^3/uL (150-450); WHITE BLOOD COUNT 8.4 10^3/uL (4.0-10.0)
[2020-12-21 20:11] LABS: ERYTHROCYTE SEDIMENTATION RATE 70 mm/hr (0-20)
== END ==
LOC: M SHH 17:06
PROVIDERS: ATTEND Nurse Practitioner Family
DX: B96.20 Unspecified Escherichia coli [E. coli] as the cause of diseases classified elsewhere (principal)

== ENCOUNTER 2020-12-25 13:30 | Inpatient (IN) | payer OTHER ==
[~2020-12-25] VITALS: Ht 162.6 cm; Wt 60.3 kg
[~2020-12-25 13:30] MED LIST changes: -LISI-538 PO; -LISI-542 PO; +LISI-898 PO; +LISI20TA33 PO; +METH-1164 PO; +METH-1165 PO; -METH1TAB40 PO; -METH750T2 PO; -ONDA8TAB8 SL; -PANT-23 PO
[2020-12-25] MEDS ORDERED: NS 1,000 ML IV ONE ×2 (13:45→17:00)
[2020-12-25] MEDS ORDERED: METOCLOPRAMIDE INJ 10MG/2ML VIAL (J2765 PER 1) IV ONE (13:45)
[2020-12-25] MEDS ORDERED: ONDANSETRON 4MG/2ML VIAL IV ONE (13:45)
[2020-12-25] MEDS: MORPHINE 2 MG/ML 1ML VIAL (J2270) IV PRN ×2 (13:55→19:35)
[2020-12-25] MEDS ORDERED: PROMETHAZINE INJ 25 MG/ML VIAL (J2550) IV ONE (15:45)
[2020-12-25] MEDS ORDERED: ISOVUE-370 76% 100ML VIAL As Ordered ONE (16:08)
[2020-12-25] MEDS ORDERED: HALOPERIDOL 5MG/ML VIAL (J1630 PER 1) IV ONE (17:00)
[2020-12-25 17:27] LABS: BASO # 0.1 10^3/uL (0.0-0.2); BASO % 0.9 % (0.0-1.0); HEMATOCRIT 31.8 % (36.0-47.0); HEMOGLOBIN 10.1 g/dl (12.0-15.5); LYMPH # 1.1 10^3/uL (1.5-5.0); LYMPH % 10.1 % (24.0-44.0); MEAN CORPUSCULAR HEMOGLOBIN 28.5 pg (27.0-33.0); MEAN CORPUSCULAR HGB CONC 31.8 g/dl (32.0-36.5); MEAN CORPUSCULAR VOLUME 89.8 fl (80.0-96.0); MONO # 0.4 10^3/uL (0.0-0.8); MONO % 3.3 % (0.0-5.0); NEUTROPHILS # 9.3 10^3/uL (1.5-8.5); NEUTROPHILS % 85.2 % (36.0-66.0); PLATELET COUNT, AUTOMATED 402 10^3/uL (150-450); RED BLOOD COUNT 3.54 10^6/uL (4.00-5.40); VENOUS BASE EXCESS 3.3 (-2.0-2.0); VENOUS PARTIAL PRESSURE O2 68.9 mmHg (30.0-50.0); VENOUS PH 7.554 UNITS (7.330-7.430); VENOUS STANDARD HCO3 27.4 MEQ/L; VENOUS TOTAL CO2 25.9 MEQ/L (24.0-28.0); WHITE BLOOD COUNT 10.9 10^3/uL (4.0-10.0)
[2020-12-25 17:52] LABS: ALBUMIN 3.4 GM/DL (3.2-5.2); ALT/SGPT 27 U/L (12-78); BILIRUBIN,DIRECT < 0.1 MG/DL (0.0-0.2); BILIRUBIN,TOTAL 0.2 MG/DL (0.2-1.0); LIPASE 39 U/L (73-393); TOTAL PROTEIN 8.4 GM/DL (6.4-8.2)
--- NOTE | 2020-12-25 18:09 | REPVR ---
PROCEDURE INFORMATION: Exam: CT Abdomen And Pelvis With Contrast Exam date and time: 12/25/2020 4:00 PM Age: 45 years old Clinical indication: Vomiting; Additional info: Intractable vomiting TECHNIQUE: Imaging protocol: Computed tomography of the abdomen and pelvis with contrast. Radiation optimization: All CT scans at this facility use at least one of these dose optimization techniques: automated exposure control; mA and/or kV adjustment per patient size (includes targeted exams where dose is matched to clinical indication); or iterative reconstruction. Contrast material: ISOVUE 370; Contrast volume: 100 ml; Contrast route: INTRAVENOUS (IV); COMPARISON: CT ABD/PEL W/IV CONTRAST ONLY 10/21/2020 12:09 PM FINDINGS: Lungs: Atelectasis left lower lobe. Liver: There is a diffuse decrease in hepatic parenchymal density, consistent with steatosis. Gallbladder and bile ducts: Normal. No calcified stones. No ductal dilation. Pancreas: Normal. No ductal dilation. Spleen: Normal. No splenomegaly. Adrenal glands: Normal. No mass. Kidneys and ureters: Normal. No hydronephrosis. Stomach and bowel: There is a diffusely boggy appearance of the colon with mural stratification and an ahasutral countour. There are pericolonic inflammatory changes. Findings consistent with acute colitis. No abscess demonstrated. Appendix: No evidence of appendicitis. Intraperitoneal space: Unremarkable. No free air. No significant fluid collection. Vasculature: The aortoiliac vessels demonstrate mild atherosclerotic calcification. Lymph nodes: Unremarkable. No enlarged lymph nodes. Urinary bladder: Unremarkable as visualized. Reproductive: Unremarkable as visualized. Bones/joints: Status post lower lumbar interbody fusion from L3-S1 using transpedicular screws metallic side plates. Status post L3 and L4 laminectomies. Grade 3 anterolisthesis of L 5 on S1 secondary to bilateral spondylolysis. Soft tissues: Marked inflammation with loculated fluid and numerous loculated gas bubbles demonstrated in the posterior paraspinal soft tissues from L3-S1. Possibility of infection/abscess to be excluded clinically. There is a small to moderate umbilical hernia. There is no evidence of incarceration. IMPRESSION: 1. Marked inflammation with loculated fluid and numerous loculated gas bubbles demonstrated in the posterior paraspinal soft tissues from L3-S1. Possibility of infection/abscess to be excluded clinically. 2. There is a diffuse decrease in hepatic parenchymal density, consistent with steatosis. 3. There is a diffusely boggy appearance of the colon with mural stratification and an ahasutral countour. There are pericolonic inflammatory changes. Findings consistent with acute colitis. No abscess demonstrated. Electronically signed by: Addy Jackson On 12/25/2020 18:09:52 PM
[2020-12-25] MEDS ORDERED: fentaNYL 100 MCG/2 ML INJECTION (J3010) IV ONE (19:00)
[2020-12-25] MEDS ORDERED: GLUCAGON INJ 1MG VIAL SC PRN (19:30)
[2020-12-25] MEDS ORDERED: GLUCOSE 4GM CHEW TABLET PO PRN (19:30)
[2020-12-25] MEDS ORDERED: DEXTROSE 50% 50 ML SYRINGE IV PRN (19:30)
[2020-12-25] MEDS ORDERED: FLUO40CA PO (19:39)
[2020-12-25] MEDS ORDERED: LISI20TA33 PO (19:39)
[2020-12-25] MEDS ORDERED: BASA100I SC (19:39)
[2020-12-25] MEDS ORDERED: RISATAB3 PO (19:39)
[2020-12-25] MEDS ORDERED: ONDA8TAB8 SL (19:39)
[2020-12-25] MEDS ORDERED: MIRT-60 PO (19:39)
[2020-12-25] MEDS ORDERED: PANT-23 PO (19:39)
[2020-12-25] MEDS ORDERED: FURO20TA2 PO (19:39)
[2020-12-25] MEDS: LEVEMIR (INSULIN DETEMIR) 1 UNITS/0.01ML SC SCH (20:53)
[2020-12-25] MEDS: cefTRIAXone SOD 2 GM in D5W MINI-BAG PLUS 50 ML IV SCH (20:53)
--- NOTE | 2020-12-25 21:49 | HPE ---
HISTORY AND PHYSICAL DATE OF ADMISSION: 12/25/2020 HISTORY OF PRESENT ILLNESS: 45-year-old type 1 diabetic presents with nausea and vomiting. She states she has these episodes frequently. She has been previously told she has diabetic gastroparesis. She denies any history of alcohol, drug abuse including marijuana. She denies any abdominal pain. No blood associated with her emesis and emesis is not bilious in nature. She is a type 1 diabetic. Her electrolytes, BUN and creatinine are stable. There is no evidence of acidosis. Her history is noteworthy for complications from back surgery. She initially had back surgery in [place] on September 15, went back there on November 06 and again on November 24. She developed a wound infection. She does have a wound VAC. She is on IV Rocephin through a PICC line in her right arm. That surgery was complicated by bilateral foot drop. She also denies any fever. Her white blood cell count is 10,000. MEDICATIONS: She is on Humalog R coverage. She takes insulin Glargine, Basaglar 5 units a day, Remeron 30 mg a day, Protonix 40 mg a day, Prozac 40 mg a day, gabapentin 300 mg 2 capsules 3 x a day, tizanidine 4 mg a day, furosemide 20 mg a day, lisinopril 20 mg a day, Rocephin 1 gm per day, calcium carbonate. She maybe on Narcotic pain meds She denied but then we found another list with several narcotic meds on them ALLERGIES: She denies allergies. PAST MEDICAL HISTORY: Type 1 diabetic since early adulthood. She has had three recent back surgeries and wound infection. Has developed bilateral foot drop. She has had three sections, it sounds like she has diabetic neuropathy and possible retinopathy. She also has a history of "thyroiditis". Her last TSH was elevated. She is not on any thyroid medication, I am not quite sure why. She has depression and anxiety. FAMILY HISTORY: As previously dictated. Mother apparently has breast cancer. SOCIAL HISTORY: She was a smoker. She denies alcohol and tobacco currently. REVIEW OF SYSTEMS: General: She just feels terrible. She is very restless. She is constantly moving around in bed and she can not give me a clear reason for it. HEENT: Sounds like she has had some eye problems, possible diabetic retinopathy. Cardiopulmonary: Negative. Gastrointestinal (GI): She has had nausea as noted in the history of present illness. Genitourinary (): Negative. Musculoskeletal: Back pain, foot drop as discussed above. She has a wound VAC. Vascular: Negative. Hematologic: She has got mild anemia. She does not have any leukocytosis. Psychiatric: She has anxiety and depression and is extremely restless. Neuro: She has a B/l foot drop and she might also hav coexisting diabetic retinopathy and gastroparesis. PHYSICAL EXAMINATION: Blood pressure is 187/80, pulse is 80, respirations are 20, temperature is 97.5. O2 saturation is 100%. General appearance: Appearing anxious, restless, middle-aged female who looks older than her stated age. HEENT: Head is normocephalic, atraumatic. Oral mucosa is slightly dry. Neck is supple. I believe there is a transmitted cardiac murmur to the neck bilaterally, could not rule out bilateral bruits. Heart was regular with a systolic murmur. Chest is clear. Abdomen was completely benign, soft, non-distended. No abdominal pain to palpation. Extremities are warm peripherally. She does have bilateral foot drop. PICC line in the right arm. Back examination: She does have a wound VAC in the midline in the lumbar area. IMPRESSION/PLAN: 1. Nausea and vomiting, I suspect diabetic gastroparesis in this type 1 diabetic. Will order basal insulin and insulin coverage. IV with D5 lactated Ringers. IV metoclopramide ordered. 2. Wound infection, back. She has a PICC line in her right arm. She is getting IV Rocephin. 3. Hypothyroid. She is currently not on any medication. On last admission, she had a TSH of 10. I am repeating at this visit. 4. Anxiety and depression. Continue with her home medications. 5. Deep venous thrombosis (DVT) prophylaxis ordered. 6, extreme restlessness Observe for narcotic withdraw Previously was on narcotics from [place] but says not taking currently. 7. HTN MTDD
[2020-12-25 22:09] VITALS: BP 160/61
[2020-12-25] MEDS: METOCLOPRAMIDE INJ 10MG/2ML VIAL (J2765 PER 1) IV PRN (22:17)
[2020-12-25] MEDS: GABAPENTIN 300 MG CAP PO SCH (22:17)
[2020-12-25] MEDS: D5W/LR 1,000 ML IV SCH (22:18)
[2020-12-25] MEDS: MIRTAZAPINE 15 MG TAB PO SCH (22:18)
[2020-12-25] MEDS ORDERED: MAALOX 30 ML SUSP *UDC PO PRN (22:45)
[2020-12-25] MEDS: HumaLOG INSULIN (NovoLOG) PER UNIT SC SCH (23:31)
[2020-12-26] MEDS ORDERED: SODIUM CHLORIDE 0.9% INJ 10 ML SYR IV PRN (00:45)
[2020-12-26] MEDS ORDERED: KETOROLAC 30 MG/ML 1ML VIAL IV ONE (00:45)
[2020-12-26] MEDS: ONDANSETRON 4MG/2ML VIAL IV PRN ×4 (01:31→20:24)
[2020-12-26] MEDS ORDERED: PERCOCET 5MG/325MG TAB PO ONE (03:00)
[2020-12-26] MEDS: RAMELTEON 8 MG TAB (ROZEREM) PO PRN (03:17)
[2020-12-26] MEDS: METOCLOPRAMIDE INJ 10MG/2ML VIAL (J2765 PER 1) IV PRN ×3 (03:18→22:56)
[2020-12-26] MEDS: HumaLOG INSULIN (NovoLOG) PER UNIT SC SCH ×3 (05:07→17:24)
[2020-12-26] MEDS: D5W/LR 1,000 ML IV SCH (05:07)
[2020-12-26 05:09] VITALS: BP 163/67
[2020-12-26] MEDS: SODIUM CHLORIDE 0.9% INJ 10 ML SYR IV SCH ×2 (05:10→17:06)
[2020-12-26 07:12] LABS: HEMATOCRIT 30.8 % (36.0-47.0); HEMOGLOBIN 9.9 g/dl (12.0-15.5); MEAN CORPUSCULAR HEMOGLOBIN 28.4 pg (27.0-33.0); MEAN CORPUSCULAR HGB CONC 32.1 g/dl (32.0-36.5); MEAN CORPUSCULAR VOLUME 88.5 fl (80.0-96.0); PLATELET COUNT, AUTOMATED 416 10^3/uL (150-450); RED BLOOD COUNT 3.48 10^6/uL (4.00-5.40); WHITE BLOOD COUNT 10.4 10^3/uL (4.0-10.0)
[2020-12-26 07:55] LABS: BLOOD UREA NITROGEN 8 MG/DL (7-18); CALCIUM LEVEL 9.3 MG/DL (8.5-10.1); CARBON DIOXIDE LEVEL 31 MEQ/L (21-32); CHLORIDE LEVEL 91 MEQ/L (98-107); CREATININE FOR GFR 0.86 MG/DL (0.55-1.30); GLOMERULAR FILTRATION RATE > 60.0 (>58); GLUCOSE, FASTING 203 MG/DL (70-100); POTASSIUM SERUM 2.7 MEQ/L (3.5-5.1); SODIUM LEVEL 132 MEQ/L (136-145)
[2020-12-26] MEDS ORDERED: BISACODYL 10 MG SUPP PR PRN (08:15)
[2020-12-26] MEDS ORDERED: CALCIUM CARBONATE 500 MG CHEW U/D PO PRN (08:15)
[2020-12-26] MEDS: FLUoxetine 20 MG CAP PO SCH (08:37)
[2020-12-26] MEDS: GABAPENTIN 300 MG CAP PO SCH ×3 (08:38→20:25)
[2020-12-26] MEDS: ENOXAPARIN 40MG/0.4ML SYRINGE (J1650 PER 10MG) SC SCH (08:38)
[2020-12-26] MEDS: PANTOPRAZOLE 40MG VIAL (C9113 PER 1) IV SCH (08:39)
[2020-12-26] MEDS ORDERED: POTASSIUM CHLORIDE 10 MEQ SR TABLET PO ONE (09:00)
[2020-12-26] MEDS ORDERED: cefTRIAXone SOD 1GM VIAL (J0696 PER 250MG) IV SCH (09:00)
[2020-12-26] MEDS: NS 1,000 ML IV SCH ×2 (09:54→20:25)
[2020-12-26] MEDS ORDERED: KCL 10MEQ/100ML SWI (KRUN) 10 MEQ in IV 1 EA IV ONE (10:00)
[2020-12-26] MEDS: PERCOCET 5MG/325MG TAB PO PRN ×2 (11:45→18:02)
[2020-12-26] MEDS: cefTRIAXone SOD 2 GM in D5W MINI-BAG PLUS 50 ML IV SCH (11:45)
--- NOTE | 2020-12-26 12:08 | IPNPDOC ---
Text Note Date of Service The patient was seen on 12/26/20. NOTE Subjective: Patient continues to complain of back pain and nausea. Patient sta jaya that she developed nausea and vomiting on the day 3d after she stopped opioids Objective: GENERAL APPEARANCE: NAD HEENT: no scleral icterus, no JVD, EOMI CARDIOVASCULAR: S1S2 LUNGS: CTA ABDOMEN: soft & not tender w palpitation MUSCULOSKELETAL: no cyanosis, no swelling Back: Wound vac in place INTEGUMENT: no generalized pallor NEUROLOGICAL: cranial nerve function from 2-12 intact intact, follows commands, speech not dysarthric Assessment and plan 45-year-old type 1 diabetic presents with nausea and vomiting. She states she has these episodes frequently. She has been previously told she has diabetic gastroparesis. She denies any history of alcohol, drug abuse including marijuana. She denies any abdominal pain. No blood associated with her emesis and emesis is not bilious in nature. She is a type 1 diabetic. Her electrolytes, BUN and creatinine are stable. There is no evidence of acidosis. Her history is noteworthy for complications from back surgery. She initially had back surgery in [place] on September 15, went back there on November 06 and again on November 24. She developed a wound infection. She does have a wound VAC. She is on IV Rocephin through a PICC line in her right arm. Nausea/vomiting Most likely secondary to opioids withdrawal superimposed with gastroparesis Zofran IV, Reglan IV Restarted Percocet for back pain IV fluid Back pain/wound infection After back surgery for bulging disc in [facility] patient developed infection required 6 weeks of ceftriaxone, patient currently has a wound vac Pain management Hypothyroidism Patient does not take levothyroxine I will check TSH Anxiety/depression Continue home meds Hypokalemia I will check magnesium level Replaced VS,Fishbone, I+O VS, Fishbone, I+O Laboratory Tests 12/25/20 17:11 12/26/20 06:34 Vital Signs Date Time Temp Pulse Resp B/P (MAP) Pulse Ox O2 Delivery O2 Flow Rate FiO2 12/26/20 11:45 18 12/26/20 08:38 163/67 12/26/20 05:09 99.8 87 96 Room Air I&O- Last 24 Hours up to 6 AM0 12/26/20 06:00 Intake Total 2905 ml Output Total 900 ml Balance 2005 ml DROZHZHIN,ALEJANDRA DO Dec 26, 2020 12:08
[2020-12-26 12:30] LABS: BLOOD UREA NITROGEN 8 MG/DL (7-18); CALCIUM LEVEL 9.2 MG/DL (8.5-10.1); CARBON DIOXIDE LEVEL 27 MEQ/L (21-32); CHLORIDE LEVEL 89 MEQ/L (98-107); CREATININE FOR GFR 0.59 MG/DL (0.55-1.30); GLOMERULAR FILTRATION RATE > 60.0 (>58); GLUCOSE, FASTING 294 MG/DL (70-100); POTASSIUM SERUM 3.2 MEQ/L (3.5-5.1); SODIUM LEVEL 129 MEQ/L (136-145)
[2020-12-26 12:51] LABS: MAGNESIUM LEVEL 1.6 MG/DL (1.8-2.4)
[2020-12-26 14:00] VITALS: BP 158/66
[2020-12-26 18:50] LABS: BLOOD UREA NITROGEN 8 MG/DL (7-18); CARBON DIOXIDE LEVEL 27 MEQ/L (21-32); CHLORIDE LEVEL 92 MEQ/L (98-107); CREATININE FOR GFR 0.64 MG/DL (0.55-1.30); GLOMERULAR FILTRATION RATE > 60.0 (>58); GLUCOSE, FASTING 257 MG/DL (70-100); POTASSIUM SERUM 2.7 MEQ/L (3.5-5.1); SODIUM LEVEL 132 MEQ/L (136-145)
[2020-12-26] MEDS: LEVEMIR (INSULIN DETEMIR) 1 UNITS/0.01ML SC SCH (20:24)
[2020-12-26] MEDS: MIRTAZAPINE 15 MG TAB PO SCH (20:25)
[2020-12-26] MEDS: ACETAMINOPHEN TAB 650MG DOSE (2X325MG) PO PRN (20:25)
[2020-12-26 22:00] VITALS: BP 156/67
[2020-12-27 00:31] LABS: BLOOD UREA NITROGEN 7 MG/DL (7-18); CALCIUM LEVEL 8.9 MG/DL (8.5-10.1); CARBON DIOXIDE LEVEL 31 MEQ/L (21-32); CHLORIDE LEVEL 96 MEQ/L (98-107); CREATININE FOR GFR 0.67 MG/DL (0.55-1.30); GLOMERULAR FILTRATION RATE > 60.0 (>58); GLUCOSE, FASTING 136 MG/DL (70-100); POTASSIUM SERUM 2.8 MEQ/L (3.5-5.1); SODIUM LEVEL 135 MEQ/L (136-145)
[2020-12-27] MEDS: PERCOCET 5MG/325MG TAB PO PRN ×6 (00:37→23:26)
[2020-12-27] MEDS ORDERED: POTASSIUM CHLORIDE 10 MEQ SR TABLET PO ONE ×2 (00:45→10:00)
[2020-12-27 00:54] LABS: MAGNESIUM LEVEL 1.6 MG/DL (1.8-2.4)
[2020-12-27] MEDS: ACETAMINOPHEN TAB 650MG DOSE (2X325MG) PO PRN (02:53)
[2020-12-27] MEDS: NS 1,000 ML IV SCH ×2 (04:42→15:48)
[2020-12-27] MEDS: ONDANSETRON 4MG/2ML VIAL IV PRN ×3 (04:42→19:28)
[2020-12-27] MEDS: SODIUM CHLORIDE 0.9% INJ 10 ML SYR IV SCH ×2 (05:09→17:07)
[2020-12-27] MEDS: MAG SULF 1GM/100ML (MAG RUN) 1 GM in IV 1 EA IV SCH ×3 (05:12→08:32)
[2020-12-27 06:00] VITALS: BP 152/85
[2020-12-27] MEDS: HumaLOG INSULIN (NovoLOG) PER UNIT SC SCH ×6 (06:00→17:21)
[2020-12-27 06:47] LABS: HEMATOCRIT 32.5 % (36.0-47.0); MEAN CORPUSCULAR HEMOGLOBIN 28.2 pg (27.0-33.0); MEAN CORPUSCULAR HGB CONC 30.8 g/dl (32.0-36.5); MEAN CORPUSCULAR VOLUME 91.8 fl (80.0-96.0); PLATELET COUNT, AUTOMATED 409 10^3/uL (150-450); RED BLOOD COUNT 3.54 10^6/uL (4.00-5.40); WHITE BLOOD COUNT 7.4 10^3/uL (4.0-10.0)
[2020-12-27 07:14] LABS: BLOOD UREA NITROGEN 6 MG/DL (7-18); CALCIUM LEVEL 8.5 MG/DL (8.5-10.1); CARBON DIOXIDE LEVEL 28 MEQ/L (21-32); CHLORIDE LEVEL 95 MEQ/L (98-107); GLOMERULAR FILTRATION RATE > 60.0 (>58); GLUCOSE, FASTING 216 MG/DL (70-100); POTASSIUM SERUM 3.4 MEQ/L (3.5-5.1); SODIUM LEVEL 133 MEQ/L (136-145)
[2020-12-27] MEDS: ENOXAPARIN 40MG/0.4ML SYRINGE (J1650 PER 10MG) SC SCH (08:31)
[2020-12-27] MEDS: GABAPENTIN 300 MG CAP PO SCH ×3 (08:31→20:43)
[2020-12-27] MEDS: PANTOPRAZOLE 40MG VIAL (C9113 PER 1) IV SCH (08:31)
[2020-12-27] MEDS: FLUoxetine 20 MG CAP PO SCH (08:31)
[2020-12-27] MEDS: MAGNESIUM GLUCONATE 500 MG TAB PO SCH ×2 (09:00→20:43)
[2020-12-27] MEDS: METOCLOPRAMIDE INJ 10MG/2ML VIAL (J2765 PER 1) IV PRN ×2 (09:11→22:50)
[2020-12-27] MEDS: LEVOTHYROXINE 50MCG TABLET (0.05MG) PO SCH (09:11)
--- NOTE | 2020-12-27 11:34 | IPNPDOC ---
Text Note Date of Service The patient was seen on 12/27/20. NOTE Subjective: Patient continues to complain of back pain and nausea, but patient stated that back pain and nausea subsided Objective: GENERAL APPEARANCE: NAD HEENT: no scleral icterus, no JVD, EOMI CARDIOVASCULAR: S1S2 LUNGS: CTA ABDOMEN: soft & not tender w palpitation MUSCULOSKELETAL: no cyanosis, no swelling Back: Wound vac in place INTEGUMENT: no generalized pallor NEUROLOGICAL: cranial nerve function from 2-12 intact intact, follows commands, speech not dysarthric Assessment and plan 45-year-old type 1 diabetic presents with nausea and vomiting. She states she has these episodes frequently. She has been previously told she has diabetic gastroparesis. She denies any history of alcohol, drug abuse including marijuana. She denies any abdominal pain. No blood associated with her emesis and emesis is not bilious in nature. She is a type 1 diabetic. Her electrolytes, BUN and creatinine are stable. There is no evidence of acidosis. Her history is noteworthy for complications from back surgery. She initially had back surgery in [place] on September 15, went back there on November 06 and again on November 24. She developed a wound infection. She does have a wound VAC. She is on IV Rocephin through a PICC line in her right arm. Nausea/vomiting Most likely secondary to opioids withdrawal superimposed with gastroparesis Zofran IV, Reglan IV Restarted Percocet for back pain IV fluid Back pain/wound infection After back surgery for bulging disc in [facility] patient developed infection required 6 weeks of ceftriaxone, patient currently has a wound vac Pain management Hypothyroidism Patient does not take levothyroxine TSH elevated 7.8 Will start levothyroxine Anxiety/depression Continue home meds Hypokalemia Replaced VS,Fishbone, I+O VS, Fishbone, I+O Laboratory Tests 12/26/20 11:41 12/26/20 18:07 12/26/20 23:53 12/27/20 05:46 Vital Signs Date Time Temp Pulse Resp B/P (MAP) Pulse Ox O2 Delivery O2 Flow Rate FiO2 12/27/20 11:09 18 12/27/20 08:31 152/85 12/27/20 06:00 98.1 76 98 Room Air I&O- Last 24 Hours up to 6 AM 12/27/20 06:00 Intake Total 60 ml Output Total 0 ml Balance 60 ml ALEJANDRA MUÑOZ DO Dec 27, 2020 11:34
[2020-12-27] MEDS ORDERED: PILL CUTTER 1 EACH XX PRN (11:45)
[2020-12-27] MEDS: cefTRIAXone SOD 2 GM in D5W MINI-BAG PLUS 50 ML IV SCH (12:18)
[2020-12-27 12:40] LABS: BLOOD UREA NITROGEN 5 MG/DL (7-18); CALCIUM LEVEL 8.8 MG/DL (8.5-10.1); CARBON DIOXIDE LEVEL 29 MEQ/L (21-32); CHLORIDE LEVEL 93 MEQ/L (98-107); CREATININE FOR GFR 0.49 MG/DL (0.55-1.30); GLOMERULAR FILTRATION RATE > 60.0 (>58); GLUCOSE, FASTING 166 MG/DL (70-100); POTASSIUM SERUM 3.2 MEQ/L (3.5-5.1); SODIUM LEVEL 132 MEQ/L (136-145)
[2020-12-27 14:00] VITALS: BP 176/87
[2020-12-27] MEDS: traMADol 50 MG TAB PO PRN (14:16)
[2020-12-27 18:49] LABS: BLOOD UREA NITROGEN 6 MG/DL (7-18); CALCIUM LEVEL 8.7 MG/DL (8.5-10.1); CARBON DIOXIDE LEVEL 31 MEQ/L (21-32); CHLORIDE LEVEL 95 MEQ/L (98-107); CREATININE FOR GFR 0.59 MG/DL (0.55-1.30); GLOMERULAR FILTRATION RATE > 60.0 (>58); GLUCOSE, FASTING 157 MG/DL (70-100); POTASSIUM SERUM 3.2 MEQ/L (3.5-5.1); SODIUM LEVEL 132 MEQ/L (136-145)
[2020-12-27] MEDS: MIRTAZAPINE 15 MG TAB PO SCH (20:43)
[2020-12-27] MEDS: LEVEMIR (INSULIN DETEMIR) 1 UNITS/0.01ML SC SCH (20:43)
[2020-12-27 22:00] VITALS: BP 178/89
[2020-12-27] MEDS: RAMELTEON 8 MG TAB (ROZEREM) PO PRN (22:50)
[2020-12-28 00:47] LABS: BLOOD UREA NITROGEN 5 MG/DL (7-18); CALCIUM LEVEL 8.7 MG/DL (8.5-10.1); CARBON DIOXIDE LEVEL 28 MEQ/L (21-32); CHLORIDE LEVEL 99 MEQ/L (98-107); GLOMERULAR FILTRATION RATE > 60.0 (>58); GLUCOSE, FASTING 67 MG/DL (70-100); POTASSIUM SERUM 2.8 MEQ/L (3.5-5.1); SODIUM LEVEL 136 MEQ/L (136-145)
[2020-12-28] MEDS ORDERED: POTASSIUM CHLORIDE 10 MEQ SR TABLET PO ONE (01:15)
[2020-12-28] MEDS: NS 1,000 ML IV SCH ×3 (01:19→20:24)
[2020-12-28] MEDS: KCL 10MEQ/100ML SWI (KRUN) 10 MEQ in IV 1 EA IV SCH ×2 (01:20→02:24)
[2020-12-28] MEDS: ONDANSETRON 4MG/2ML VIAL IV PRN ×3 (01:34→16:39)
[2020-12-28] MEDS: PERCOCET 5MG/325MG TAB PO PRN ×5 (03:31→20:23)
[2020-12-28] MEDS: METOCLOPRAMIDE INJ 10MG/2ML VIAL (J2765 PER 1) IV PRN ×2 (05:35→20:23)
[2020-12-28] MEDS: LEVOTHYROXINE 50MCG TABLET (0.05MG) PO SCH (05:35)
[2020-12-28 06:00] VITALS: BP 185/97
[2020-12-28] MEDS: SODIUM CHLORIDE 0.9% INJ 10 ML SYR IV SCH ×2 (06:00→18:00)
[2020-12-28] MEDS: HumaLOG INSULIN (NovoLOG) PER UNIT SC SCH ×4 (06:00→17:46)
[2020-12-28 06:15] VITALS: BP 179/90
[2020-12-28] MEDS: GABAPENTIN 300 MG CAP PO SCH ×3 (07:41→20:22)
[2020-12-28] MEDS: FLUoxetine 20 MG CAP PO SCH (07:41)
[2020-12-28] MEDS: MAGNESIUM GLUCONATE 500 MG TAB PO SCH ×2 (07:41→20:23)
[2020-12-28 07:42] LABS: HEMATOCRIT 34.7 % (36.0-47.0); HEMOGLOBIN 10.8 g/dl (12.0-15.5); MEAN CORPUSCULAR HEMOGLOBIN 28.5 pg (27.0-33.0); MEAN CORPUSCULAR HGB CONC 31.1 g/dl (32.0-36.5); MEAN CORPUSCULAR VOLUME 91.6 fl (80.0-96.0); PLATELET COUNT, AUTOMATED 404 10^3/uL (150-450); RED BLOOD COUNT 3.79 10^6/uL (4.00-5.40); WHITE BLOOD COUNT 7.4 10^3/uL (4.0-10.0)
[2020-12-28] MEDS: ENOXAPARIN 40MG/0.4ML SYRINGE (J1650 PER 10MG) SC SCH (07:42)
[2020-12-28] MEDS: PANTOPRAZOLE 40MG VIAL (C9113 PER 1) IV SCH (07:42)
[2020-12-28 08:04] LABS: BLOOD UREA NITROGEN 5 MG/DL (7-18); CALCIUM LEVEL 8.8 MG/DL (8.5-10.1); CARBON DIOXIDE LEVEL 29 MEQ/L (21-32); CHLORIDE LEVEL 96 MEQ/L (98-107); CREATININE FOR GFR 0.49 MG/DL (0.55-1.30); GLOMERULAR FILTRATION RATE > 60.0 (>58); GLUCOSE, FASTING 93 MG/DL (70-100); POTASSIUM SERUM 4.4 MEQ/L (3.5-5.1); SODIUM LEVEL 134 MEQ/L (136-145)
[2020-12-28] MEDS: cefTRIAXone SOD 2 GM in D5W MINI-BAG PLUS 50 ML IV SCH (11:55)
[2020-12-28 14:00] VITALS: BP 179/92
--- NOTE | 2020-12-28 14:45 | IPNPDOC ---
Text Note Date of Service The patient was seen on 12/28/20. NOTE Subjective: Patient continues to complain of back pain and nausea. Patient sta jaya that she feels better today but not on her baseline Objective: GENERAL APPEARANCE: NAD HEENT: no scleral icterus, no JVD, EOMI CARDIOVASCULAR: S1S2 LUNGS: CTA ABDOMEN: soft & not tender w palpitation MUSCULOSKELETAL: no cyanosis, no swelling Back: Wound vac in place INTEGUMENT: no generalized pallor NEUROLOGICAL: cranial nerve function from 2-12 intact intact, follows commands, speech not dysarthric Assessment and plan 45-year-old type 1 diabetic presents with nausea and vomiting. She states she has these episodes frequently. She has been previously told she has diabetic gastroparesis. She denies any history of alcohol, drug abuse including marijuana. She denies any abdominal pain. No blood associated with her emesis and emesis is not bilious in nature. She is a type 1 diabetic. Her electrolytes, BUN and creatinine are stable. There is no evidence of acidosis. Her history is noteworthy for complications from back surgery. She initially had back surgery in [place] on September 15, went back there on November 06 and again on November 24. She developed a wound infection. She does have a wound VAC. She is on IV Rocephin through a PICC line in her right arm. Nausea/vomiting Most likely secondary to opioids withdrawal superimposed with gastroparesis Zofran IV, Reglan IV Continue Percocet for back pain IV fluid Back pain/wound infection After back surgery for bulging disc in [facility] patient developed infection required 6 weeks of ceftriaxone, patient currently has a wound vac Pain management Hypothyroidism Patient does not take levothyroxine TSH elevated 7.8 Continue levothyroxine Anxiety/depression Continue home meds Hypokalemia Replaced VS,Fishbone, I+O VS, Fishbone, I+O Laboratory Tests 12/27/20 18:00 12/28/20 00:07 12/28/20 06:57 Vital Signs Date Time Temp Pulse Resp B/P (MAP) Pulse Ox O2 Delivery O2 Flow Rate FiO2 12/28/20 12:26 18 12/28/20 07:41 179/90 12/28/20 06:00 97.3 79 98 Room Air I&O- Last 24 Hours up to 6 AM 12/28/20 06:00 Intake Total 1950 ml Balance 1950 ml DROZHZHIN,ALEJANDRA DO Dec 28, 2020 14:45
[2020-12-28] MEDS: traMADol 50 MG TAB PO PRN (17:46)
[2020-12-28] MEDS: MIRTAZAPINE 15 MG TAB PO SCH (20:22)
[2020-12-28] MEDS: LEVEMIR (INSULIN DETEMIR) 1 UNITS/0.01ML SC SCH (20:24)
[2020-12-28 22:00] VITALS: BP 181/87
[2020-12-29] MEDS: traMADol 50 MG TAB PO PRN (00:11)
[2020-12-29] MEDS: HumaLOG INSULIN (NovoLOG) PER UNIT SC SCH ×3 (00:11→12:00)
[2020-12-29] MEDS: PERCOCET 5MG/325MG TAB PO PRN ×3 (01:00→09:05)
[2020-12-29] MEDS: LEVOTHYROXINE 50MCG TABLET (0.05MG) PO SCH (05:07)
[2020-12-29 06:00] VITALS: BP 179/88
[2020-12-29] MEDS: SODIUM CHLORIDE 0.9% INJ 10 ML SYR IV SCH (06:00)
[2020-12-29 06:23] LABS: HEMOGLOBIN 11.5 g/dl (12.0-15.5); MEAN CORPUSCULAR HEMOGLOBIN 28.1 pg (27.0-33.0); MEAN CORPUSCULAR HGB CONC 31.1 g/dl (32.0-36.5); MEAN CORPUSCULAR VOLUME 90.5 fl (80.0-96.0); PLATELET COUNT, AUTOMATED 410 10^3/uL (150-450); RED BLOOD COUNT 4.09 10^6/uL (4.00-5.40); WHITE BLOOD COUNT 7.3 10^3/uL (4.0-10.0)
[2020-12-29 06:46] LABS: BLOOD UREA NITROGEN 3 MG/DL (7-18); CALCIUM LEVEL 9.1 MG/DL (8.5-10.1); CARBON DIOXIDE LEVEL 28 MEQ/L (21-32); CHLORIDE LEVEL 93 MEQ/L (98-107); CREATININE FOR GFR 0.52 MG/DL (0.55-1.30); GLOMERULAR FILTRATION RATE > 60.0 (>58); GLUCOSE, FASTING 134 MG/DL (70-100); POTASSIUM SERUM 3.6 MEQ/L (3.5-5.1); SODIUM LEVEL 129 MEQ/L (136-145)
[2020-12-29] MEDS: NS 1,000 ML IV SCH (07:00)
[2020-12-29] MEDS: ENOXAPARIN 40MG/0.4ML SYRINGE (J1650 PER 10MG) SC SCH (09:00)
[2020-12-29 09:20] VITALS: BP 198/96
[2020-12-29] MEDS: GABAPENTIN 300 MG CAP PO SCH (09:51)
[2020-12-29] MEDS: MAGNESIUM GLUCONATE 500 MG TAB PO SCH (09:51)
[2020-12-29 09:53] VITALS: BP 198/96
[2020-12-29] MEDS: PANTOPRAZOLE 40MG VIAL (C9113 PER 1) IV SCH (09:53)
[2020-12-29] MEDS: FLUoxetine 20 MG CAP PO SCH (09:53)
[2020-12-29] MEDS ORDERED: ACET1TAB55 PO (11:10)
[2020-12-29] MEDS ORDERED: GABA-282 PO (11:10)
[2020-12-29] MEDS ORDERED: PERCOCET PO (11:10)
[2020-12-29] MEDS ORDERED: AMLO1TAB25 PO (11:10)
[2020-12-29] MEDS ORDERED: LEVO50TA5 PO (11:10)
[2020-12-29] MEDS ORDERED: LISI40TA4 PO (11:10)
[2020-12-29] MEDS ORDERED: TRAM50TA2 PO (11:10)
[2020-12-29] MEDS ORDERED: ZOFR4TAB16 PO (11:10)
[2020-12-29] MEDS: cefTRIAXone SOD 2 GM in D5W MINI-BAG PLUS 50 ML IV SCH (11:40)
--- NOTE | 2020-12-29 15:25 | DS.PDOC ---
Discharge Summary General Date of Admission Dec 25, 2020 at 19:23 Date of Discharge 12/29/20 Discharge Summary PROCEDURES PERFORMED DURING STAY: [None]. ADMITTING DIAGNOSES: Nausea/vomiting Hypothyroidism Back pain/wound infection Anxiety/depression Hypokalemia DISCHARGE DIAGNOSES: Nausea/vomiting Hypothyroidism Back pain/wound infection Anxiety/depression Hypokalemia COMPLICATIONS/CHIEF COMPLAINT: Nausea/Vomiting. HISTORY OF PRESENT ILLNESS: 45-year-old type 1 diabetic presents with nausea and vomiting. She states she has these episodes frequently. She has been previously told she has diabetic gastroparesis. She denies any history of a lcohol, drug abuse including marijuana. She denies any abdominal pain. No blood associated with her emesis and emesis is not bilious in nature. She is a type 1 diabetic. Her electrolytes, BUN and creatinine are stable. There is no evidence of acidosis. Her history is noteworthy for complications from back surgery. She initially had back surgery in [place] on September 15, went back there on November 06 and again on November 24. She developed a wound infection. She does have a wound VAC. She is on IV Rocephin through a PICC line in her right arm. HOSPITAL COURSE: During hospital stay the following issues addressed Nausea/vomiting Most likely secondary to opioids withdrawal superimposed with gastroparesis Zofran IV, Reglan IV Continue Percocet for back pain IV fluid Back pain/wound infection After back surgery for bulging disc in [facility] patient developed infection required 6 weeks of ceftriaxone, patient currently has a wound vac Pain management Hypothyroidism Patient did not take levothyroxine TSH elevated 7.8 Continue levothyroxine Anxiety/depression Continue home meds Hypokalemia Replaced DISCHARGE MEDICATIONS: Please see below. ALLERGIES: Please see below. PHYSICAL EXAMINATION ON DISCHARGE: VITAL SIGNS: Please see below. GENERAL APPEARANCE: NAD HEENT: no scleral icterus, no JVD, EOMI CARDIOVASCULAR: S1S2 LUNGS: CTA ABDOMEN: soft & not tender w palpitation MUSCULOSKELETAL: no cyanosis, no swelling Back: Wound vac in place INTEGUMENT: no generalized pallor NEUROLOGICAL: cranial nerve function from 2-12 intact intact, follows commands, speech not dysarthric LABORATORY DATA: Please see below. PROGNOSIS: Fair ACTIVITY: [As tolerated]. DIET: Regular DISPOSITION: 01 Home, Self-Care. ITEMS TO FOLLOWUP ON ON OUTPATIENT: Follow-up with PCP and pain clinic DISCHARGE CONDITION: [Stable]. TIME SPENT ON DISCHARGE: Greater than 30 minutes. Vital Signs/I&Os Vital Signs Date Time Temp Pulse Resp B/P (MAP) Pulse Ox O2 Delivery O2 Flow Rate FiO2 12/29/20 09:53 77 198/96 12/29/20 09:35 18 12/29/20 09:20 98.6 98 Room Air I&O- Last 24 Hours up to 6 AM 12/29/20 06:00 Intake Total 3370 ml Balance 3370 ml Laboratory Data Labs 24H Laboratory Tests 2 12/28/20 17:41: Bedside Glucose (Misc Panel) 340H 12/28/20 20:10: Bedside Glucose (Misc Panel) 213H 12/29/20 00:06: Bedside Glucose (Misc Panel) 286H 12/29/20 05:09: Bedside Glucose (Misc Panel) 79 12/29/20 06:07: Nucleated Red Blood Cells % (auto) 0.0, Anion Gap 8, Glomerular Filtration Rate > 60.0, Calcium Level 9.1 CBC/BMP Laboratory Tests 12/29/20 06:07 FSBS Laboratory Tests Test 12/28/20 17:41 12/28/20 20:10 12/29/20 00:06 12/29/20 05:09 Range/Units Bedside Glucose (Misc Panel) 340 213 286 79 70-105 MG/DL Discharge Medications Scheduled Amlodipine Besylate (Amlodipine Besylate) 10 Mg Tablet, 10 MG PO DAILY Ceftriaxone Sodium (Ceftriaxone) 1 Gm Vial, 2 GRAM IV DAILY, (Reported) home health nurse administered 12/24/20 Fluoxetine Hcl (Fluoxetine HCl) 40 Mg Capsule, 40 MG PO DAILY, (Reported) Furosemide (Furosemide) 20 Mg Tablet, 20 MG PO DAILY, (Reported) Gabapentin (Gabapentin) 300 Mg Capsule, 300 MG PO BID Insulin Glargine,Hum.rec.anlog (Basaglar Kwikpen U-100) 100 Unit/1 Ml Insuln.pe n, 10 UNIT SC DAILY, (Reported) Insulin Lispro (Admelog) 100 Unit/1 Ml Vial, 1 DOSE SC AC, (Reported) PER SLIDING SCALE L.acidoph/L.bulg/B.bif/S.therm (Lauryn-Bid Caplet) 1 Each Tablet, 1 TAB PO DAILY, (Reported) Levothyroxine Sodium (Levothyroxine Sodium) 50 Mcg Tablet, 50 MCG PO DAILY@06 Lisinopril (Lisinopril) 40 Mg Tablet, 40 MG PO DAILY Mirtazapine (Remeron) 30 Mg Tablet, 30 MG PO QHS, (Reported) Ondansetron HCl (Zofran) 4 Mg Tablet, 4 MG PO TID Pantoprazole Sodium (Pantoprazole Sodium) 40 Mg Tablet.dr, 40 MG PO DAILY, (Reported) Psyllium Husk (with Sugar) (Metamucil Powder) 575 Gm Powder, 1 PKT PO QPM, (Reported) Scheduled PRN Acetaminophen (Mapap) 500 Mg Capsule, 1,000 MG PO Q6HP PRN for PAIN, (Reported) Acetaminophen (Acetaminophen) 325 Mg Tablet, 650 MG PO Q4H PRN for PAIN OR FEVER Bisacodyl (Bisacodyl) 10 Mg Supp.rect, 10 MG MO DAILY PRN for CONSTIPATION, (Reported) Calcium Carbonate (Calcium Carbonate) 500 Mg Tablet, 500 MG PO Q4HP PRN for INDIGESTION, (Reported) Ondansetron (Ondansetron Odt) 8 Mg Tab.rapdis, 8 MG SL BID PRN for NAUSEA OR VOMITING, (Reported) Oxycodone/Acetaminophen (Oxycodone-Acetaminophen 5-325) 1 Each Tablet, 2 TAB PO Q4HP PRN for SEVERE PAIN (PS 8-10) Tramadol HCl (Tramadol HCl) 50 Mg Tablet, 50 MG PO Q6HP PRN for MODERATE PAIN (PS 5-7) Allergies Coded Allergies: No Known Allergies (Verified , 12/05/20) ALEJANDRA MUÑOZ DO Dec 29, 2020 15:25
[2020-12-30] MEDS ORDERED: lisinopriL 40 MG TAB PO SCH (09:00)
== END 2020-12-29 12:35 | disposition home health service (06) | DRG 249 ==
LOC: M ED 13:30 → EDBD 13:30 → M ED INP 19:23 → M MS5PR 22:03
PROVIDERS: ATTEND Internal Medicine
DX: R11.2 Nausea with vomiting, unspecified (principal); K31.84 Gastroparesis; E10.43 Type 1 diabetes mellitus with diabetic autonomic (poly)neuropathy; F11.93 Opioid use, unspecified with withdrawal; E03.9 Hypothyroidism, unspecified; F41.9 Anxiety disorder, unspecified; E87.6 Hypokalemia; F32.9 Major depressive disorder, single episode, unspecified; M21.371 Foot drop, right foot; M21.372 Foot drop, left foot; Z79.4 Long term (current) use of insulin; Z79.899 Other long term (current) drug therapy

== ENCOUNTER → 2021-01-04 | Outpatient (REF) | payer OTHER ==
[~2021-01-04] MED LIST changes: +ACET1TAB55 PO; +AMLO1TAB25 PO; +LEVO50TA5 PO; +LISI40TA4 PO; +ONDA8TAB8 SL; +PANT-23 PO; +PERCOCET PO; +TRAM50TA2 PO
[2021-01-04 18:28] LABS: ALBUMIN 3.1 GM/DL (3.2-5.2); ALT/SGPT 18 U/L (12-78); BILIRUBIN,TOTAL < 0.1 MG/DL (0.2-1.0); BLOOD UREA NITROGEN 8 MG/DL (7-18); C REACTIVE PROTEIN QUANTITATIV 0.96 MG/DL (0.00-0.30); CALCIUM LEVEL 8.6 MG/DL (8.5-10.1); CARBON DIOXIDE LEVEL 32 MEQ/L (21-32); CHLORIDE LEVEL 101 MEQ/L (98-107); GLOMERULAR FILTRATION RATE > 60.0 (>58); GLUCOSE, FASTING 112 MG/DL (70-100); POTASSIUM SERUM 3.5 MEQ/L (3.5-5.1); SODIUM LEVEL 138 MEQ/L (136-145); TOTAL PROTEIN 7.3 GM/DL (6.4-8.2)
[2021-01-04 18:46] LABS: BASO # 0.1 10^3/uL (0.0-0.2); BASO % 1.3 % (0.0-1.0); EOS # 0.4 10^3/uL (0.0-0.5); EOS % 3.9 % (0.0-3.0); HEMATOCRIT 36.1 % (36.0-47.0); HEMOGLOBIN 10.9 g/dl (12.0-15.5); LYMPH % 22.2 % (24.0-44.0); MEAN CORPUSCULAR HEMOGLOBIN 28.8 pg (27.0-33.0); MEAN CORPUSCULAR HGB CONC 30.2 g/dl (32.0-36.5); MEAN CORPUSCULAR VOLUME 95.5 fl (80.0-96.0); MONO # 0.8 10^3/uL (0.0-0.8); MONO % 8.2 % (0.0-8.0); NEUTROPHILS # 5.9 10^3/uL (1.5-8.5); NEUTROPHILS % 63.6 % (36.0-66.0); PLATELET COUNT, AUTOMATED 381 10^3/uL (150-450); RED BLOOD COUNT 3.78 10^6/uL (4.00-5.40); WHITE BLOOD COUNT 9.2 10^3/uL (4.0-10.0)
[2021-01-04 20:05] LABS: ERYTHROCYTE SEDIMENTATION RATE 42 mm/hr (0-20)
== END ==
LOC: M LAB REF 16:29
PROVIDERS: ATTEND Nurse Practitioner Family
DX: B96.20 Unspecified Escherichia coli [E. coli] as the cause of diseases classified elsewhere (principal); T84.63XA Infection and inflammatory reaction due to internal fixation device of spine, initial encounter

== ENCOUNTER 2021-01-20 17:27 | Emergency (ER) | payer OTHER ==
[~2021-01-20] VITALS: Ht 162.6 cm; Wt 60.9 kg
[2021-01-20] MEDS ORDERED: HALOPERIDOL 5MG/ML VIAL (J1630 PER 1) IV STA (17:55)
[2021-01-20] MEDS ORDERED: KETOROLAC 30 MG/ML 1ML VIAL IV ONE (17:55)
[2021-01-20] MEDS ORDERED: METOCLOPRAMIDE INJ 10MG/2ML VIAL (J2765 PER 1) IV ONE (17:55)
[2021-01-20] MEDS ORDERED: NS 1,000 ML IV ONE (17:55)
[2021-01-20 18:25] LABS: BASO % 0.3 % (0.0-1.0); HEMATOCRIT 40.2 % (36.0-47.0); HEMOGLOBIN 12.6 g/dl (12.0-15.5); LYMPH # 1.2 10^3/uL (1.5-5.0); LYMPH % 9.2 % (24.0-44.0); MEAN CORPUSCULAR HEMOGLOBIN 28.3 pg (27.0-33.0); MEAN CORPUSCULAR HGB CONC 31.3 g/dl (32.0-36.5); MEAN CORPUSCULAR VOLUME 90.3 fl (80.0-96.0); MONO # 0.4 10^3/uL (0.0-0.8); MONO % 2.7 % (2.0-8.0); NEUTROPHILS # 11.4 10^3/uL (1.5-8.5); NEUTROPHILS % 87.3 % (36.0-66.0); PLATELET COUNT, AUTOMATED 453 10^3/uL (150-450); RED BLOOD COUNT 4.45 10^6/uL (4.00-5.40)
[2021-01-20 18:56] LABS: ALBUMIN 4.2 GM/DL (3.2-5.2); ALT/SGPT 43 U/L (12-78); BILIRUBIN,DIRECT 0.1 MG/DL (0.0-0.2); BILIRUBIN,TOTAL 0.3 MG/DL (0.2-1.0); BLOOD UREA NITROGEN 26 MG/DL (7-18); CALCIUM LEVEL 10.1 MG/DL (8.5-10.1); CARBON DIOXIDE LEVEL 26 MEQ/L (21-32); CHLORIDE LEVEL 100 MEQ/L (98-107); CK-MB VALUE MASS 3.6 NG/ML (<3.6); CPK CREATINE PHOSPHOKINASE 101 U/L (26-192); CREATININE FOR GFR 1.04 MG/DL (0.55-1.30); GLOMERULAR FILTRATION RATE > 60.0 (>58); GLUCOSE, FASTING 194 MG/DL (70-100); LIPASE 54 U/L (73-393); MB/CK RELATIVE INDEX 3.56 (< OR =4); POTASSIUM SERUM 3.9 MEQ/L (3.5-5.1); SODIUM LEVEL 138 MEQ/L (136-145); TOTAL PROTEIN 9.6 GM/DL (6.4-8.2); TROPONIN I < 0.02 NG/ML (< 0.10)
[2021-01-20] MEDS ORDERED: REGL10TA6 PO (20:19)
[2021-01-20 20:45] VITALS: BP 125/61
--- NOTE | 2021-01-22 07:51 | ECGEPIP ---
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
== END 2021-01-20 20:57 | disposition home or self-care (01) ==
LOC: M ED 17:27
DX: R11.2 Nausea with vomiting, unspecified (principal); E11.9 Type 2 diabetes mellitus without complications; I10 Essential (primary) hypertension; K31.84 Gastroparesis; F32.9 Major depressive disorder, single episode, unspecified; F12.10 Cannabis abuse, uncomplicated
CPT/HCPCS: 80048; 80076; 82550; 82553; 83690; 84484; 85025; 93005; 93041; 96361; 96374; 96375; 99285; J1630; J1885; J2765

== ENCOUNTER → 2021-03-24 | Outpatient (REF) | payer OTHER ==
[~2021-03-24] MED LIST changes: +REGL10TA6 PO
[2021-03-24 18:53] LABS: CREATININE, URINE 13.5 MG/DL; MALB URINE SIEMENS 37.5 MG/L; MAU/CREAT RATIO 277.7 MCG/MG (0.0-30.0)
== END ==
LOC: M LAB REF 16:46
PROVIDERS: ATTEND Physician Assistant Medical
DX: E10.65 Type 1 diabetes mellitus with hyperglycemia (principal)

== ENCOUNTER → 2021-06-24 | Outpatient (CLI) | payer OTHER ==
[2021-06-24 14:46] LABS: BASO # 0.1 10^3/uL (0.0-0.2); BASO % 1.3 % (0.0-1.0); EOS # 0.2 10^3/uL (0.0-0.5); EOS % 2.1 % (0.0-3.0); HEMATOCRIT 36.2 % (36.0-47.0); HEMOGLOBIN 11.7 g/dl (12.0-15.5); LYMPH # 1.8 10^3/uL (1.5-5.0); LYMPH % 17.8 % (24.0-44.0); MEAN CORPUSCULAR HEMOGLOBIN 31.1 pg (27.0-33.0); MEAN CORPUSCULAR HGB CONC 32.3 g/dl (32.0-36.5); MEAN CORPUSCULAR VOLUME 96.3 fl (80.0-96.0); MONO # 0.6 10^3/uL (0.0-0.8); MONO % 5.9 % (2.0-8.0); NEUTROPHILS # 7.3 10^3/uL (1.5-8.5); NEUTROPHILS % 72.5 % (36.0-66.0); PLATELET COUNT, AUTOMATED 369 10^3/uL (150-450); RED BLOOD COUNT 3.76 10^6/uL (4.00-5.40); WHITE BLOOD COUNT 10.1 10^3/uL (4.0-10.0)
[2021-06-24 15:16] LABS: ALBUMIN 3.4 GM/DL (3.2-5.2); ALT/SGPT 24 U/L (12-78); BILIRUBIN,TOTAL 0.2 MG/DL (0.2-1.0); BLOOD UREA NITROGEN 10 MG/DL (7-18); CALCIUM LEVEL 8.9 MG/DL (8.5-10.1); CARBON DIOXIDE LEVEL 25 MEQ/L (21-32); CHLORIDE LEVEL 104 MEQ/L (98-107); CHOLESTEROL LEVEL 177 MG/DL (<200); CHOLESTEROL RISK RATIO 3.403 (<5); CREATININE FOR GFR 0.76 MG/DL (0.55-1.30); FREE T4 0.69 NG/DL (0.76-1.46); GLOMERULAR FILTRATION RATE > 60.0 (>58); GLUCOSE, FASTING 237 MG/DL (70-100); HDL CHOLESTEROL 52 MG/DL (>40); LDL CHOLESTEROL 90 MG/DL (<100); NON-HDL-C 125 MG/DL; SODIUM LEVEL 137 MEQ/L (136-145); TOTAL PROTEIN 8.3 GM/DL (6.4-8.2); TRIGLYCERIDES LEVEL 177 MG/DL (<150)
== END ==
LOC: M WUC 10:59
PROVIDERS: ATTEND Family Medicine
DX: E03.9 Hypothyroidism, unspecified (principal); E10.65 Type 1 diabetes mellitus with hyperglycemia

== ENCOUNTER 2021-08-28 21:35 | Emergency (ER) | payer MEDICARE, OTHER ==
[~2021-08-28 21:35] MED LIST changes: +DOK1CAP4 PO; -DOK1CAP7 PO
[2021-08-28] MEDS ORDERED: NS 1,000 ML IV ONE (22:30)
[2021-08-28] MEDS ORDERED: IBUPROFEN 600MG TAB PO ONE (22:40)
[2021-08-28 23:44] LABS: BASO % 0.4 % (0.0-1.0); EOS % 0.2 % (0.0-3.0); HEMATOCRIT 32.4 % (36.0-47.0); HEMOGLOBIN 10.4 g/dl (12.0-15.5); LYMPH # 0.4 10^3/uL (1.5-5.0); LYMPH % 3.9 % (24.0-44.0); MEAN CORPUSCULAR HEMOGLOBIN 29.8 pg (27.0-33.0); MEAN CORPUSCULAR HGB CONC 32.1 g/dl (32.0-36.5); MEAN CORPUSCULAR VOLUME 92.8 fl (80.0-96.0); MONO # 0.1 10^3/uL (0.0-0.8); MONO % 1.1 % (2.0-8.0); NEUTROPHILS # 8.5 10^3/uL (1.5-8.5); NEUTROPHILS % 93.1 % (36.0-66.0); PLATELET COUNT, AUTOMATED 232 10^3/uL (150-450); RED BLOOD COUNT 3.49 10^6/uL (4.00-5.40); WHITE BLOOD COUNT 9.2 10^3/uL (4.0-10.0)
[2021-08-28] MEDS ORDERED: cefTRIAXone SOD 2 GM in D5W MINI-BAG PLUS 50 ML IV ONE (23:55)
[2021-08-29 00:15] LABS: HCG, SERUM QUALITATIVE NEGATIVE (NEGATIVE)
[2021-08-29 00:18] LABS: ALBUMIN 2.6 GM/DL (3.2-5.2); ALT/SGPT 17 U/L (12-78); BILIRUBIN,DIRECT 0.1 MG/DL (0.0-0.2); BILIRUBIN,TOTAL 0.3 MG/DL (0.2-1.0); BLOOD UREA NITROGEN 17 MG/DL (7-18); CALCIUM LEVEL 8.4 MG/DL (8.5-10.1); CARBON DIOXIDE LEVEL 27 MEQ/L (21-32); CHLORIDE LEVEL 106 MEQ/L (98-107); CPK CREATINE PHOSPHOKINASE 221 U/L (26-192); CREATININE FOR GFR 0.76 MG/DL (0.55-1.30); FREE T4 0.88 NG/DL (0.76-1.46); GLOMERULAR FILTRATION RATE > 60.0 (>58); GLUCOSE, FASTING 53 MG/DL (70-100); LIPASE 31 U/L (73-393); MB/CK RELATIVE INDEX 0.45 (< OR =4); POTASSIUM SERUM 2.6 MEQ/L (3.5-5.1); SODIUM LEVEL 141 MEQ/L (136-145); TOTAL PROTEIN 7.2 GM/DL (6.4-8.2); TROPONIN I < 0.02 NG/ML (< 0.10)
[2021-08-29] MEDS ORDERED: ISOVUE-370 76% 100ML VIAL As Ordered ONE (00:36)
[2021-08-29] MEDS ORDERED: POTASSIUM CHLORIDE 10MEQ SR TABLET PO ONE (01:05)
[2021-08-29] MEDS ORDERED: KCL 10MEQ/100ML SWI (KRUN) 10 MEQ in IV 1 EA IV ONE (01:05)
--- NOTE | 2021-08-29 02:07 | REPVR ---
PROCEDURE INFORMATION: Exam: CT Head Without Contrast Exam date and time: 08/29/2021 1:57 AM Age: 46 years old Clinical indication: Pain; Headache not specified TECHNIQUE: Imaging protocol: Computed tomography of the head without contrast. Radiation optimization: All CT scans at this facility use at least one of these dose optimization techniques: automated exposure control; mA and/or kV adjustment per patient size (includes targeted exams where dose is matched to clinical indication); or iterative reconstruction. COMPARISON: No relevant prior studies available. FINDINGS: Brain: Normal. No hemorrhage. Unremarkable white matter. No mass effect. Cerebral ventricles: No ventriculomegaly. Paranasal sinuses: Visualized sinuses are unremarkable. No fluid levels. Mastoid air cells: Visualized mastoid air cells are well aerated. Bones/joints: Unremarkable. No acute fracture. Soft tissues: Unremarkable. IMPRESSION: No acute intracranial abnormality. Electronically signed by: Santiago Richards On 08/29/2021 02:07:19 AM
--- NOTE | 2021-08-29 02:14 | REPVR ---
PROCEDURE INFORMATION: Exam: XR Chest Exam date and time: 08/28/2021 10:45 PM Age: 46 years old Clinical indication: Other: Fever TECHNIQUE: Imaging protocol: XR of the chest. Views: 1 view. COMPARISON: 1. CT Chest without contrast 2020-10-21 12:52 2. CR Chest, 2 view PA, Lat 2020-10-08 19:22 3. CR PORTABLE CHEST X-RAY 2020-04-28 23:[address] ABD/PEL W/IV CONTRAST ONLY 2020-12-25 17:31 FINDINGS: Limitations: Image is flipped, with normal anatomic configuration on the basis of prior studies. Lungs: Left lung base atelectasis versus infiltrate. Pleural spaces: Unremarkable. No pleural effusion. No pneumothorax. Heart/Mediastinum: Unremarkable. No cardiomegaly. Bones/joints: Unremarkable. IMPRESSION: Left lung base atelectasis versus infiltrate. Electronically signed by: Santiago Richards On 08/29/2021 02:13:40 AM
[2021-08-29] MEDS ORDERED: PREGABALIN 100 MG CAP (LYRICA) PO ONE (02:15)
--- NOTE | 2021-08-29 02:34 | REPVR ---
PROCEDURE INFORMATION: Exam: CT Abdomen And Pelvis With Contrast Exam date and time: 08/29/2021 1:57 AM Age: 46 years old Clinical indication: Fever and vomiting; Additional info: Fever vomiting TECHNIQUE: Imaging protocol: Computed tomography of the abdomen and pelvis with contrast. Radiation optimization: All CT scans at this facility use at least one of these dose optimization techniques: automated exposure control; mA and/or kV adjustment per patient size (includes targeted exams where dose is matched to clinical indication); or iterative reconstruction. Contrast material: ISOVUE 370; Contrast volume: 100 ml; Contrast route: INTRAVENOUS (IV); COMPARISON: 1. CT ABD/PEL W/IV CONTRAST ONLY 2020-12-25 17:[address] ABD/PEL W/IV CONTRAST ONLY 2020-10-21 12:09 FINDINGS: Limitations: Artifact related to patient's arm position limits evaluation. Lungs: Dependent subsegmental pulmonary atelectasis. Mediastinal space: Small gastroesophageal sliding type hiatal hernia. Liver: Hepatic steatosis. Gallbladder and bile ducts: Gallbladder distension. Pancreas: Normal. No ductal dilation. Spleen: Normal. No splenomegaly. Adrenal glands: Normal. No mass. Kidneys and ureters: Normal. No hydronephrosis. Stomach and bowel: Gastric wall thickening, question greater curvature ulcer. Mild diverticulosis without acute inflammatory changes. Appendix: No evidence of appendicitis. Intraperitoneal space: Unremarkable. No free air. No significant fluid collection. Vasculature: Unremarkable. No abdominal aortic aneurysm. Lymph nodes: Unremarkable. No enlarged lymph nodes. Urinary bladder: Unremarkable as visualized. Reproductive: Unremarkable as visualized. Bones/joints: Lumbar laminectomies and postoperative changes. Demineralization around the L5 hardware, evidence for loosening with subsidence and rotation of the intervertebral spacers. L5-S1 1.5 cm anterolisthesis. Soft tissues: Small fat protruding umbilical hernia. IMPRESSION: 1. Gastric wall thickening, question greater curvature ulcer. Correlate. 2. Demineralization around the L5 hardware, evidence for loosening with subsidence and rotation of the intervertebral spacers. Electronically signed by: Santiago Richards On 08/29/2021 02:34:07 AM
[2021-08-29] MEDS ORDERED: PROHANCE 279.3MG/ML 15ML VIAL As Ordered ONE (04:38)
--- NOTE | 2021-08-29 05:28 | REPVR ---
PROCEDURE INFORMATION: Exam: MR Lumbar Spine With Contrast. Exam date and time: 08/29/2021 4:39 AM Age: 46 years old Clinical indication: Low back pain; Prior surgery; Surgery date: 6+ months; Surgery type: Lami/fusion- levels unknown per PT. Surgerys in 08/2020, 10/2020 and 01/2021. ; Additional info: Fever, back pain, R/O epidural abscess TECHNIQUE: Imaging protocol: Multiplanar magnetic resonance images of the lumbar spine with contrast. Contrast material: PROHANCE; Contrast volume: 13 ml; Contrast route: INTRAVENOUS (IV); COMPARISON: 1. CT Spine, lumbar w/o contrast 2020-11-02 10:23 2. MRI-LS SPINE W/O FOLL WITH CON 2020-10-06 19:24 FINDINGS: Vertebrae: Susceptibility artifact as result of the lower lumbar spinal hardware largely obscures the L3-S1 vertebrae and posterior elements. Lower lumbar laminectomy with a small postoperative seroma in the laminectomy bed. L5-S1 1.6 cm anterolisthesis. Posterior L5 wedging deformity is chronic. T2 hyperintense anterior inferior L2 vertebral body with some marrow enhancement, question minor bone contusion, enhancing underlying lesion, especially predisposing factors did not excluded. Spinal cord: Normal signal. No cord compression. Discs/Spinal canal/Neural foramina: Small amount of fluid at the L5-S1 level, likely secondary to pseudoarthrosis. Soft tissues: Unremarkable. IMPRESSION: 1. Previous postsurgical changes. Small amount of postoperative fluid in the laminectomy bed at the L4 and L5 level. No convincing evidence for infection, no definite epidural fluid collection. 2. Susceptibility artifact as result of the lower lumbar spinal hardware largely obscures the L3-S1 vertebrae and posterior elements. 3. T2 hyperintense anterior inferior L2 vertebral body with some marrow enhancement, question minor bone contusion, or enhancing underlying marrow replacing lesion. 4. Lower lumbar fusion with L5-S1 1.6 cm anterolisthesis. Electronically signed by: Santiago Richards On 08/29/2021 05:27:59 AM
[2021-08-29 06:00] VITALS: BP 122/60
--- NOTE | 2021-08-29 19:13 | ECGEPIP ---
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
--- NOTE | 2021-08-30 06:35 | ED PDOC ---
Post-Departure Follow-Up mri ls spine faxed to dr pozo for fu Ge Bernard MD Aug 30, 2021 06:35
== END 2021-08-29 06:15 | disposition left against medical advice (07) ==
LOC: M ED 21:35
DX: R50.9 Fever, unspecified (principal); E87.6 Hypokalemia; R00.0 Tachycardia, unspecified; R51.9 Headache, unspecified; I10 Essential (primary) hypertension; E10.9 Type 1 diabetes mellitus without complications; M54.9 Dorsalgia, unspecified; M21.379 Foot drop, unspecified foot; Z98.1 Arthrodesis status; F17.200 Nicotine dependence, unspecified, uncomplicated; Z79.899 Other long term (current) drug therapy; Z79.4 Long term (current) use of insulin
CPT/HCPCS: 70450; 71045; 72149; 74177; 80048; 80076; 81001; 82550; 82553; 83605; 83690; 84439; 84443; 84484; 84703; 85025; 87040; 87798; 93005; 93041; 94760; 96365; 96375; 99285; A9576; J0696; J3480; Q9967

== ENCOUNTER → 2021-09-22 | Outpatient (CLI) | payer MEDICARE, OTHER ==
--- NOTE | 2021-09-22 13:21 | REPVR ---
PROCEDURE INFORMATION: Exam: CT Lumbar Spine Without Contrast Exam date and time: 09/22/2021 12:52 PM Age: 46 years old Clinical indication: Other: Post op infection TECHNIQUE: Imaging protocol: Computed tomography images of the lumbar spine without contrast. Radiation optimization: All CT scans at this facility use at least one of these dose optimization techniques: automated exposure control; mA and/or kV adjustment per patient size (includes targeted exams where dose is matched to clinical indication); or iterative reconstruction. COMPARISON: MRI-Spine, L.S. with con 08/29/2021 4:14 AM FINDINGS: Vertebrae: There are vertical rods and paired pedicle screws at L3, L4, L5/S1 and sacroiliac joints, with intervertebral spacers at L3/4 and L4/5 and corresponding laminectomy changes. Lucency surrounds the L5 pedicle screws. The distal portion of the left L5 screw extends beyond the anterior margin of the vertebral body. There is endplate irregularity along the L3/4 and L4/5 intervertebral spacers. There is 13 mm of anterolisthesis of L5 with respect to S1. Discs/Spinal canal/Neural foramina: There is severe intervertebral disc space loss at L5/S1.. Disc osteophyte complex and facet hypertrophy contribute to moderate to severe right and severe left neural foraminal narrowing. Soft tissues: There is diffuse edema of the paraspinal soft tissues at L3, L4 and L5 extending along the laminectomy defects. IMPRESSION: Changes reflecting lumbosacral fusion with laminectomies. There is a suggestion of increased lucency surrounding the L5 by pedicle screws, potentially loosening. In addition, there is endplate irregularity along the L3/4 and L4/5 intervertebral spacers. There is increased soft tissue edema/fluid along the laminectomy defects. These findings are presumably postoperative in nature, but infection is a consideration. Electronically signed by: Jessy Smalls On 09/22/2021 13:21:03 PM
== END ==
LOC: M RAD 12:12
PROVIDERS: ATTEND Orthopaedic Surgery
DX: T81.42XA Infection following a procedure, deep incisional surgical site, initial encounter (principal)

== ENCOUNTER → 2021-10-18 | Outpatient (REF) | payer MEDICARE, OTHER ==
[~2021-10-18] MED LIST changes: -LISI-898 PO; +LISI5TAB11 PO; +TIZA10TA; +TIZA10TA PO; -TIZA4TAB4; -TIZA4TAB4 PO
[2021-10-18 14:29] LABS: BASO # 0.1 10^3/uL (0.0-0.2); EOS # 0.2 10^3/uL (0.0-0.5); EOS % 1.7 % (0.0-3.0); HEMOGLOBIN 10.8 g/dl (12.0-15.5); LYMPH # 2.2 10^3/uL (1.5-5.0); LYMPH % 16.6 % (24.0-44.0); MEAN CORPUSCULAR HEMOGLOBIN 29.3 pg (27.0-33.0); MEAN CORPUSCULAR HGB CONC 31.8 g/dl (32.0-36.5); MEAN CORPUSCULAR VOLUME 92.4 fl (80.0-96.0); MONO # 0.8 10^3/uL (0.0-0.8); MONO % 5.8 % (2.0-8.0); NEUTROPHILS # 9.7 10^3/uL (1.5-8.5); NEUTROPHILS % 74.5 % (36.0-66.0); PLATELET COUNT, AUTOMATED 334 10^3/uL (150-450); RED BLOOD COUNT 3.68 10^6/uL (4.00-5.40); WHITE BLOOD COUNT 13.1 10^3/uL (4.0-10.0)
[2021-10-18 14:57] LABS: ALBUMIN 3.1 GM/DL (3.2-5.2); ALT/SGPT 23 U/L (12-78); BILIRUBIN,TOTAL 0.2 MG/DL (0.2-1.0); BLOOD UREA NITROGEN 21 MG/DL (7-18); C REACTIVE PROTEIN QUANTITATIV 1.12 MG/DL (0.00-0.30); CALCIUM LEVEL 8.7 MG/DL (8.5-10.1); CARBON DIOXIDE LEVEL 26 MEQ/L (21-32); CHLORIDE LEVEL 104 MEQ/L (98-107); CREATININE FOR GFR 0.76 MG/DL (0.55-1.30); GLOMERULAR FILTRATION RATE > 60.0 (>58); GLUCOSE, FASTING 181 MG/DL (70-100); POTASSIUM SERUM 4.3 MEQ/L (3.5-5.1); SODIUM LEVEL 138 MEQ/L (136-145); TOTAL PROTEIN 8.2 GM/DL (6.4-8.2)
[2021-10-18 15:11] LABS: ERYTHROCYTE SEDIMENTATION RATE 73 mm/hr (0-20)
== END ==
LOC: M LAB REF 14:10
PROVIDERS: ATTEND Nurse Practitioner Family
DX: M46.46 Discitis, unspecified, lumbar region (principal); M46.25 Osteomyelitis of vertebra, thoracolumbar region; Z79.2 Long term (current) use of antibiotics

== ENCOUNTER → 2021-10-25 | Outpatient (REF) | payer MEDICARE, OTHER ==
[~2021-10-25] MED LIST changes: +LISI-898 PO; -LISI5TAB11 PO; -TIZA10TA; -TIZA10TA PO; +TIZA4TAB4; +TIZA4TAB4 PO
[2021-10-25 15:34] LABS: BASO # 0.1 10^3/uL (0.0-0.2); BASO % 1.1 % (0.0-1.0); EOS # 0.2 10^3/uL (0.0-0.5); EOS % 1.8 % (0.0-3.0); HEMATOCRIT 31.7 % (36.0-47.0); HEMOGLOBIN 9.8 g/dl (12.0-15.5); LYMPH # 1.4 10^3/uL (1.5-5.0); LYMPH % 16.1 % (24.0-44.0); MEAN CORPUSCULAR HEMOGLOBIN 28.7 pg (27.0-33.0); MEAN CORPUSCULAR HGB CONC 30.9 g/dl (32.0-36.5); MEAN CORPUSCULAR VOLUME 92.7 fl (80.0-96.0); MONO # 0.5 10^3/uL (0.0-0.8); MONO % 5.3 % (2.0-8.0); NEUTROPHILS # 6.6 10^3/uL (1.5-8.5); NEUTROPHILS % 75.4 % (36.0-66.0); PLATELET COUNT, AUTOMATED 335 10^3/uL (150-450); RED BLOOD COUNT 3.42 10^6/uL (4.00-5.40); WHITE BLOOD COUNT 8.8 10^3/uL (4.0-10.0)
[2021-10-25 16:01] LABS: ERYTHROCYTE SEDIMENTATION RATE 70 mm/hr (0-20)
[2021-10-25 16:10] LABS: ALT/SGPT 19 U/L (12-78); BILIRUBIN,TOTAL 0.2 MG/DL (0.2-1.0); BLOOD UREA NITROGEN 8 MG/DL (7-18); C REACTIVE PROTEIN QUANTITATIV 0.88 MG/DL (0.00-0.30); CALCIUM LEVEL 8.9 MG/DL (8.5-10.1); CARBON DIOXIDE LEVEL 29 MEQ/L (21-32); CHLORIDE LEVEL 103 MEQ/L (98-107); CREATININE FOR GFR 0.65 MG/DL (0.55-1.30); GLOMERULAR FILTRATION RATE > 60.0 (>58); GLUCOSE, FASTING 141 MG/DL (70-100); POTASSIUM SERUM 4.5 MEQ/L (3.5-5.1); SODIUM LEVEL 140 MEQ/L (136-145)
== END ==
LOC: M LAB REF 14:50
PROVIDERS: ATTEND Nurse Practitioner Family
DX: M46.46 Discitis, unspecified, lumbar region (principal); M46.25 Osteomyelitis of vertebra, thoracolumbar region; Z79.2 Long term (current) use of antibiotics

== ENCOUNTER → 2021-11-01 | Outpatient (REF) | payer MEDICARE, OTHER ==
[~2021-11-01] MED LIST changes: -LISI-898 PO; +LISI5TAB11 PO; +TIZA10TA; +TIZA10TA PO; -TIZA4TAB4; -TIZA4TAB4 PO
[2021-11-01 14:34] LABS: BASO # 0.1 10^3/uL (0.0-0.2); BASO % 1.3 % (0.0-1.0); EOS # 0.2 10^3/uL (0.0-0.5); EOS % 2.7 % (0.0-3.0); HEMATOCRIT 31.1 % (36.0-47.0); HEMOGLOBIN 9.6 g/dl (12.0-15.5); LYMPH # 1.8 10^3/uL (1.5-5.0); LYMPH % 20.6 % (24.0-44.0); MEAN CORPUSCULAR HEMOGLOBIN 28.2 pg (27.0-33.0); MEAN CORPUSCULAR HGB CONC 30.9 g/dl (32.0-36.5); MEAN CORPUSCULAR VOLUME 91.2 fl (80.0-96.0); MONO # 0.5 10^3/uL (0.0-0.8); MONO % 5.9 % (2.0-8.0); NEUTROPHILS % 69.2 % (36.0-66.0); PLATELET COUNT, AUTOMATED 314 10^3/uL (150-450); RED BLOOD COUNT 3.41 10^6/uL (4.00-5.40); WHITE BLOOD COUNT 8.6 10^3/uL (4.0-10.0)
[2021-11-01 14:55] LABS: ERYTHROCYTE SEDIMENTATION RATE 58 mm/hr (0-20)
[2021-11-01 18:25] LABS: ALBUMIN 2.9 GM/DL (3.2-5.2); ALT/SGPT 25 U/L (12-78); BILIRUBIN,TOTAL 0.2 MG/DL (0.2-1.0); BLOOD UREA NITROGEN 14 MG/DL (7-18); C REACTIVE PROTEIN QUANTITATIV 1.58 MG/DL (0.00-0.30); CALCIUM LEVEL 8.8 MG/DL (8.5-10.1); CARBON DIOXIDE LEVEL 28 MEQ/L (21-32); CHLORIDE LEVEL 103 MEQ/L (98-107); CREATININE FOR GFR 0.78 MG/DL (0.55-1.30); GLOMERULAR FILTRATION RATE > 60.0 (>58); GLUCOSE, FASTING 228 MG/DL (70-100); POTASSIUM SERUM 4.2 MEQ/L (3.5-5.1); SODIUM LEVEL 138 MEQ/L (136-145); TOTAL PROTEIN 7.8 GM/DL (6.4-8.2)
== END ==
LOC: M LAB REF 12:52
PROVIDERS: ATTEND Nurse Practitioner Family
DX: M46.25 Osteomyelitis of vertebra, thoracolumbar region (principal); M46.46 Discitis, unspecified, lumbar region; Z79.2 Long term (current) use of antibiotics

== ENCOUNTER → 2021-11-08 | Outpatient (REF) | payer MEDICARE, OTHER ==
[2021-11-08 12:51] LABS: BASO # 0.1 10^3/uL (0.0-0.2); BASO % 1.1 % (0.0-1.0); EOS # 0.3 10^3/uL (0.0-0.5); EOS % 2.8 % (0.0-3.0); HEMATOCRIT 31.6 % (36.0-47.0); HEMOGLOBIN 9.6 g/dl (12.0-15.5); LYMPH # 1.5 10^3/uL (1.5-5.0); LYMPH % 16.6 % (24.0-44.0); MEAN CORPUSCULAR HEMOGLOBIN 27.7 pg (27.0-33.0); MEAN CORPUSCULAR HGB CONC 30.4 g/dl (32.0-36.5); MEAN CORPUSCULAR VOLUME 91.3 fl (80.0-96.0); MONO # 0.5 10^3/uL (0.0-0.8); MONO % 5.8 % (2.0-8.0); NEUTROPHILS # 6.5 10^3/uL (1.5-8.5); NEUTROPHILS % 73.5 % (36.0-66.0); PLATELET COUNT, AUTOMATED 260 10^3/uL (150-450); RED BLOOD COUNT 3.46 10^6/uL (4.00-5.40); WHITE BLOOD COUNT 8.9 10^3/uL (4.0-10.0)
[2021-11-08 13:12] LABS: ALBUMIN 3.1 GM/DL (3.2-5.2); ALT/SGPT 25 U/L (12-78); BILIRUBIN,TOTAL 0.2 MG/DL (0.2-1.0); BLOOD UREA NITROGEN 9 MG/DL (7-18); C REACTIVE PROTEIN QUANTITATIV 1.32 MG/DL (0.00-0.30); CARBON DIOXIDE LEVEL 29 MEQ/L (21-32); CHLORIDE LEVEL 99 MEQ/L (98-107); GLOMERULAR FILTRATION RATE > 60.0 (>58); GLUCOSE, FASTING 347 MG/DL (70-100); POTASSIUM SERUM 4.3 MEQ/L (3.5-5.1); SODIUM LEVEL 135 MEQ/L (136-145); TOTAL PROTEIN 7.9 GM/DL (6.4-8.2)
[2021-11-08 13:52] LABS: ERYTHROCYTE SEDIMENTATION RATE 66 mm/hr (0-20)
== END ==
LOC: M LAB REF 12:33
PROVIDERS: ATTEND Nurse Practitioner Family
DX: M46.46 Discitis, unspecified, lumbar region (principal); M46.26 Osteomyelitis of vertebra, lumbar region; Z79.2 Long term (current) use of antibiotics

== ENCOUNTER → 2021-11-15 | Outpatient (REF) | payer MEDICARE, OTHER ==
[2021-11-15 17:07] LABS: BASO # 0.1 10^3/uL (0.0-0.2); BASO % 1.2 % (0.0-1.0); EOS # 0.2 10^3/uL (0.0-0.5); EOS % 1.9 % (0.0-3.0); HEMATOCRIT 30.5 % (36.0-47.0); HEMOGLOBIN 9.6 g/dl (12.0-15.5); LYMPH # 1.6 10^3/uL (1.5-5.0); LYMPH % 15.5 % (24.0-44.0); MEAN CORPUSCULAR HEMOGLOBIN 27.6 pg (27.0-33.0); MEAN CORPUSCULAR HGB CONC 31.5 g/dl (32.0-36.5); MEAN CORPUSCULAR VOLUME 87.6 fl (80.0-96.0); MONO # 0.8 10^3/uL (0.0-0.8); MONO % 7.4 % (2.0-8.0); NEUTROPHILS # 7.8 10^3/uL (1.5-8.5); NEUTROPHILS % 73.5 % (36.0-66.0); PLATELET COUNT, AUTOMATED 351 10^3/uL (150-450); RED BLOOD COUNT 3.48 10^6/uL (4.00-5.40); WHITE BLOOD COUNT 10.6 10^3/uL (4.0-10.0)
[2021-11-15 17:24] LABS: ALBUMIN 3.1 GM/DL (3.2-5.2); ALT/SGPT 23 U/L (12-78); BILIRUBIN,TOTAL 0.3 MG/DL (0.2-1.0); BLOOD UREA NITROGEN 14 MG/DL (7-18); C REACTIVE PROTEIN QUANTITATIV 1.46 MG/DL (0.00-0.30); CALCIUM LEVEL 8.3 MG/DL (8.5-10.1); CARBON DIOXIDE LEVEL 27 MEQ/L (21-32); CHLORIDE LEVEL 98 MEQ/L (98-107); CREATININE FOR GFR 0.76 MG/DL (0.55-1.30); GLOMERULAR FILTRATION RATE > 60.0 (>58); GLUCOSE, FASTING 331 MG/DL (70-100); POTASSIUM SERUM 4.4 MEQ/L (3.5-5.1); SODIUM LEVEL 132 MEQ/L (136-145); TOTAL PROTEIN 7.9 GM/DL (6.4-8.2)
[2021-11-15 17:38] LABS: ERYTHROCYTE SEDIMENTATION RATE 67 mm/hr (0-20)
== END ==
LOC: M LAB REF 16:29
PROVIDERS: ATTEND Nurse Practitioner Family
DX: M46.26 Osteomyelitis of vertebra, lumbar region (principal); M46.46 Discitis, unspecified, lumbar region; Z79.2 Long term (current) use of antibiotics

== ENCOUNTER → 2022-05-02 | Outpatient (CLI) | payer OTHER ==
[~2022-05-02] MED LIST changes: +MORP1CAP11 PO; -MORP1CAP48 PO
== END ==
LOC: M PLAIMG 09:42
PROVIDERS: ATTEND Orthopaedic Surgery
DX: R93.7 Abnormal findings on diagnostic imaging of other parts of musculoskeletal system (principal); M54.50 Low back pain, unspecified

== ENCOUNTER → 2022-05-06 | Outpatient (CLI) | payer OTHER ==
[2022-05-06 14:55] LABS: BASO # 0.1 10^3/uL (0.0-0.2); BASO % 0.9 % (0.0-1.0); EOS # 0.3 10^3/uL (0.0-0.5); EOS % 2.1 % (0.0-3.0); HEMATOCRIT 32.1 % (36.0-47.0); HEMOGLOBIN 9.4 g/dl (12.0-15.5); LYMPH # 2.5 10^3/uL (1.5-5.0); LYMPH % 20.7 % (24.0-44.0); MEAN CORPUSCULAR HEMOGLOBIN 24.4 pg (27.0-33.0); MEAN CORPUSCULAR HGB CONC 29.3 g/dl (32.0-36.5); MEAN CORPUSCULAR VOLUME 83.2 fl (80.0-96.0); MONO # 0.8 10^3/uL (0.0-0.8); MONO % 6.9 % (2.0-8.0); NEUTROPHILS # 8.2 10^3/uL (1.5-8.5); NEUTROPHILS % 69.1 % (36.0-66.0); PLATELET COUNT, AUTOMATED 322 10^3/uL (150-450); RED BLOOD COUNT 3.86 10^6/uL (4.00-5.40); WHITE BLOOD COUNT 11.9 10^3/uL (4.0-10.0)
[2022-05-06 15:13] LABS: ERYTHROCYTE SEDIMENTATION RATE 69 mm/hr (0-20)
[2022-05-06 15:15] LABS: ALBUMIN 2.9 GM/DL (3.2-5.2); ALT/SGPT 35 U/L (12-78); BILIRUBIN,TOTAL 0.1 MG/DL (0.2-1.0); BLOOD UREA NITROGEN 12 MG/DL (7-18); CALCIUM LEVEL 8.5 MG/DL (8.5-10.1); CARBON DIOXIDE LEVEL 28 MEQ/L (21-32); CHLORIDE LEVEL 107 MEQ/L (98-107); CREATININE FOR GFR 0.71 MG/DL (0.55-1.30); GLOMERULAR FILTRATION RATE > 60.0 (>58); GLUCOSE, FASTING 71 MG/DL (70-100); POTASSIUM SERUM 3.6 MEQ/L (3.5-5.1); SODIUM LEVEL 141 MEQ/L (136-145); TOTAL PROTEIN 7.9 GM/DL (6.4-8.2)
== END ==
LOC: M LAB 14:08
PROVIDERS: ATTEND Nurse Practitioner Family
DX: T84.7XXD Infection and inflammatory reaction due to other internal orthopedic prosthetic devices, implants and grafts, subsequent encounter (principal); A49.8 Other bacterial infections of unspecified site

== ENCOUNTER → 2022-05-11 | Outpatient (REF) | payer OTHER ==
[2022-05-11 18:34] LABS: CREATININE, URINE 40.2 MG/DL; MAU/CREAT RATIO 288.5 MCG/MG (0.0-30.0)
== END ==
LOC: M LAB REF 16:51
PROVIDERS: ATTEND Nurse Practitioner Family
DX: E10.65 Type 1 diabetes mellitus with hyperglycemia (principal)

== ENCOUNTER → 2022-06-01 | Outpatient (CLI) | payer MEDICARE, OTHER ==
[~2022-06-01] MED LIST changes: +PROHANCE 279.3MG/ML 15ML VIAL As Ordered ONE
== END ==
LOC: M RAD 08:23
PROVIDERS: ATTEND Orthopaedic Surgery
DX: M54.59 Other low back pain (principal); M54.14 Radiculopathy, thoracic region
CPT/HCPCS: 72158; A9576

== ENCOUNTER → 2022-06-27 | Outpatient (CLI) | payer MEDICARE, OTHER ==
[~2022-06-27] MED LIST changes: -PROHANCE 279.3MG/ML 15ML VIAL As Ordered ONE
[2022-06-27 12:11] LABS: BASO # 0.1 10^3/uL (0.0-0.2); BASO % 1.1 % (0.0-1.0); EOS # 0.2 10^3/uL (0.0-0.5); EOS % 2.1 % (0.0-3.0); HEMOGLOBIN 9.4 g/dl (12.0-15.5); LYMPH # 1.5 10^3/uL (1.5-5.0); LYMPH % 17.3 % (24.0-44.0); MEAN CORPUSCULAR HGB CONC 29.4 g/dl (32.0-36.5); MEAN CORPUSCULAR VOLUME 85.1 fl (80.0-96.0); MONO # 0.5 10^3/uL (0.0-0.8); MONO % 6.4 % (2.0-8.0); PLATELET COUNT, AUTOMATED 315 10^3/uL (150-450); RED BLOOD COUNT 3.76 10^6/uL (4.00-5.40); WHITE BLOOD COUNT 8.4 10^3/uL (4.0-10.0)
[2022-06-27 14:11] LABS: ERYTHROCYTE SEDIMENTATION RATE 67 mm/hr (0-20)
[2022-06-27 14:41] LABS: ALBUMIN 2.9 GM/DL (3.2-5.2); ALT/SGPT 27 U/L (12-78); BILIRUBIN,TOTAL 0.2 MG/DL (0.2-1.0); BLOOD UREA NITROGEN 11 MG/DL (7-18); C REACTIVE PROTEIN QUANTITATIV 1.47 MG/DL (0.00-0.30); CALCIUM LEVEL 8.8 MG/DL (8.5-10.1); CARBON DIOXIDE LEVEL 26 MEQ/L (21-32); CHLORIDE LEVEL 103 MEQ/L (98-107); CREATININE FOR GFR 0.63 MG/DL (0.55-1.30); GLOMERULAR FILTRATION RATE > 60.0 (>58); GLUCOSE, FASTING 233 MG/DL (70-100); POTASSIUM SERUM 4.2 MEQ/L (3.5-5.1); SODIUM LEVEL 138 MEQ/L (136-145); TOTAL PROTEIN 7.6 GM/DL (6.4-8.2)
== END ==
LOC: M LAB 11:15
PROVIDERS: ATTEND Nurse Practitioner Family
DX: Z79.01 Long term (current) use of anticoagulants (principal)

== ENCOUNTER → 2022-06-27 | Outpatient (CLI) | payer MEDICARE, OTHER ==
[2022-06-27 12:11] LABS: BASO # 0.1 10^3/uL (0.0-0.2); BASO % 1.3 % (0.0-1.0); EOS # 0.2 10^3/uL (0.0-0.5); EOS % 2.1 % (0.0-3.0); HEMATOCRIT 32.3 % (36.0-47.0); HEMOGLOBIN 9.5 g/dl (12.0-15.5); LYMPH # 1.4 10^3/uL (1.5-5.0); LYMPH % 16.5 % (24.0-44.0); MEAN CORPUSCULAR HEMOGLOBIN 24.7 pg (27.0-33.0); MEAN CORPUSCULAR HGB CONC 29.4 g/dl (32.0-36.5); MEAN CORPUSCULAR VOLUME 83.9 fl (80.0-96.0); MONO # 0.5 10^3/uL (0.0-0.8); MONO % 5.7 % (2.0-8.0); NEUTROPHILS # 6.2 10^3/uL (1.5-8.5); NEUTROPHILS % 74.2 % (36.0-66.0); PLATELET COUNT, AUTOMATED 326 10^3/uL (150-450); RED BLOOD COUNT 3.85 10^6/uL (4.00-5.40); WHITE BLOOD COUNT 8.4 10^3/uL (4.0-10.0)
[2022-06-27 13:36] LABS: HEMOGLOBIN A1c 8.6 %
[2022-06-27 14:43] LABS: ALBUMIN 2.8 GM/DL (3.2-5.2); ALT/SGPT 28 U/L (12-78); BILIRUBIN,TOTAL 0.2 MG/DL (0.2-1.0); BLOOD UREA NITROGEN 11 MG/DL (7-18); CALCIUM LEVEL 8.7 MG/DL (8.5-10.1); CARBON DIOXIDE LEVEL 26 MEQ/L (21-32); CHLORIDE LEVEL 103 MEQ/L (98-107); CHOLESTEROL LEVEL 138 MG/DL (<200); CHOLESTEROL RISK RATIO 2.875 (<5); CREATININE FOR GFR 0.69 MG/DL (0.55-1.30); FREE T4 0.72 NG/DL (0.76-1.46); GLOMERULAR FILTRATION RATE > 60.0 (>58); GLUCOSE, FASTING 234 MG/DL (70-100); HDL CHOLESTEROL 48 MG/DL (>40); LDL CHOLESTEROL 66 MG/DL (<100); NON-HDL-C 90 MG/DL; POTASSIUM SERUM 4.1 MEQ/L (3.5-5.1); SODIUM LEVEL 137 MEQ/L (136-145); TOTAL PROTEIN 7.6 GM/DL (6.4-8.2); TRIGLYCERIDES LEVEL 118 MG/DL (<150)
== END ==
LOC: M LAB 11:06
PROVIDERS: ATTEND Nurse Practitioner Family
DX: E10.65 Type 1 diabetes mellitus with hyperglycemia (principal); Z79.01 Long term (current) use of anticoagulants

== ENCOUNTER → 2022-10-05 | Outpatient (CLI) | payer MEDICARE, OTHER ==
[2022-10-05 17:27] LABS: FREE T4 0.6 NG/DL (0.89-1.76); THYROID STIMULATING HORMONE 7.69 uIU/ML (0.55-4.78)
== END ==
LOC: M LAB 15:09
PROVIDERS: ATTEND Nurse Practitioner Family
DX: E03.9 Hypothyroidism, unspecified (principal)

== ENCOUNTER → 2022-10-05 | Outpatient (CLI) | payer MEDICARE, OTHER ==
[2022-10-05 16:10] LABS: BASO # 0.1 10^3/uL (0.0-0.2); BASO % 1.1 % (0.0-1.0); EOS # 0.3 10^3/uL (0.0-0.5); EOS % 3.2 % (0.0-3.0); HEMATOCRIT 35.5 % (36.0-47.0); HEMOGLOBIN 10.4 g/dl (12.0-15.5); LYMPH # 1.9 10^3/uL (1.5-5.0); LYMPH % 21.4 % (24.0-44.0); MEAN CORPUSCULAR HEMOGLOBIN 26.5 pg (27.0-33.0); MEAN CORPUSCULAR HGB CONC 29.3 g/dl (32.0-36.5); MEAN CORPUSCULAR VOLUME 90.6 fl (80.0-96.0); MONO # 0.5 10^3/uL (0.0-0.8); MONO % 5.1 % (2.0-8.0); NEUTROPHILS # 6.1 10^3/uL (1.5-8.5); NEUTROPHILS % 68.9 % (36.0-66.0); PLATELET COUNT, AUTOMATED 286 10^3/uL (150-450); RED BLOOD COUNT 3.92 10^6/uL (4.00-5.40); WHITE BLOOD COUNT 8.9 10^3/uL (4.0-10.0)
[2022-10-05 16:34] LABS: ERYTHROCYTE SEDIMENTATION RATE 67 mm/hr (0-20)
[2022-10-05 17:55] LABS: ALBUMIN 3.1 G/DL (3.2-5.2); ALKALINE PHOSPHATASE 120 U/L (46-116); ALT/SGPT 33 U/L (7.0-40); AST/SGOT 34 U/L (<34); BILIRUBIN,TOTAL < 0.2 MG/DL (0.3-1.2); BLOOD UREA NITROGEN 13 MG/DL (9-23); CALCIUM LEVEL 8.7 MG/DL (8.5-10.1); CARBON DIOXIDE LEVEL 23 MMOL/L (20-31); CHLORIDE LEVEL 104 MMOL/L (98-107); CREATININE FOR GFR 0.59 MG/DL (0.55-1.30); GLOMERULAR FILTRATION RATE > 60.0 (>58); GLUCOSE, FASTING 214 MG/DL (60-100); POTASSIUM SERUM 4.3 MMOL/L (3.5-5.1); SODIUM LEVEL 137 MMOL/L (136-145); TOTAL PROTEIN 7.3 G/DL (5.7-8.2)
== END ==
LOC: M LAB 15:12
PROVIDERS: ATTEND Nurse Practitioner Family
DX: T84.7XXD Infection and inflammatory reaction due to other internal orthopedic prosthetic devices, implants and grafts, subsequent encounter (principal); Y83.1 Surgical operation with implant of artificial internal device as the cause of abnormal reaction of the patient, or of later complication, without mention of misadventure at the time of the procedure

== ENCOUNTER → 2023-04-12 | Outpatient (CLI) | payer MEDICARE, OTHER ==
[2023-04-12 16:12] LABS: BASO # 0.1 10^3/uL (0.0-0.2); BASO % 1.3 % (0.0-1.0); EOS # 0.3 10^3/uL (0.0-0.5); EOS % 3.1 % (0.0-3.0); HEMATOCRIT 37.9 % (36.0-47.0); HEMOGLOBIN 12.1 g/dl (12.0-15.5); LYMPH # 1.8 10^3/uL (1.5-5.0); LYMPH % 19.3 % (24.0-44.0); MEAN CORPUSCULAR HEMOGLOBIN 30.6 pg (27.0-33.0); MEAN CORPUSCULAR HGB CONC 31.9 g/dl (32.0-36.5); MEAN CORPUSCULAR VOLUME 95.9 fl (80.0-96.0); MONO # 0.7 10^3/uL (0.0-0.8); MONO % 7.3 % (2.0-8.0); NEUTROPHILS # 6.2 10^3/uL (1.5-8.5); NEUTROPHILS % 68.6 % (36.0-66.0); PLATELET COUNT, AUTOMATED 299 10^3/uL (150-450); RED BLOOD COUNT 3.95 10^6/uL (4.00-5.40); WHITE BLOOD COUNT 9.1 10^3/uL (4.0-10.0)
[2023-04-12 16:20] LABS: ERYTHROCYTE SEDIMENTATION RATE 61 mm/hr (0-20)
[2023-04-12 16:36] LABS: ALBUMIN 3.5 G/DL (3.2-5.2); ALKALINE PHOSPHATASE 95 U/L (46-116); ALT/SGPT 30 U/L (7.0-40); AST/SGOT 26 U/L (<34); BILIRUBIN,TOTAL 0.3 MG/DL (0.3-1.2); BLOOD UREA NITROGEN 14 MG/DL (9-23); CARBON DIOXIDE LEVEL 29 MMOL/L (20-31); CHLORIDE LEVEL 105 MMOL/L (98-107); CREATININE FOR GFR 0.58 MG/DL (0.55-1.30); GLOMERULAR FILTRATION RATE > 60.0 (>58); GLUCOSE, FASTING 79 MG/DL (60-100); POTASSIUM SERUM 3.9 MMOL/L (3.5-5.1); SODIUM LEVEL 139 MMOL/L (136-145); TOTAL PROTEIN 7.8 G/DL (5.7-8.2)
== END ==
LOC: M LAB 14:59
PROVIDERS: ATTEND Physician Assistant Medical
DX: T84.7XXD Infection and inflammatory reaction due to other internal orthopedic prosthetic devices, implants and grafts, subsequent encounter (principal)

== ENCOUNTER → 2023-04-12 | Outpatient (CLI) | payer MEDICARE, OTHER ==
[2023-04-12 16:39] LABS: THYROID STIMULATING HORMONE 2.777 uIU/ML (0.55-4.78)
[2023-04-12 16:40] LABS: FREE T4 0.71 NG/DL (0.89-1.76)
== END ==
LOC: M LAB 14:53
PROVIDERS: ATTEND Nurse Practitioner Family
DX: E03.9 Hypothyroidism, unspecified (principal); T84.7XXD Infection and inflammatory reaction due to other internal orthopedic prosthetic devices, implants and grafts, subsequent encounter; Y83.1 Surgical operation with implant of artificial internal device as the cause of abnormal reaction of the patient, or of later complication, without mention of misadventure at the time of the procedure

== ENCOUNTER → 2023-06-07 | Outpatient (CLI) | payer MEDICARE, OTHER ==
[2023-06-07 16:33] LABS: BLOOD UREA NITROGEN 10 MG/DL (9-23); CREATININE FOR GFR 0.55 MG/DL (0.55-1.30); GLOMERULAR FILTRATION RATE > 60.0 (>58)
== END ==
LOC: M LAB 15:10
PROVIDERS: ATTEND Orthopaedic Surgery
DX: M54.50 Low back pain, unspecified (principal)

== ENCOUNTER → 2023-06-30 | Outpatient (CLI) | payer MEDICARE, OTHER ==
[~2023-06-30] MED LIST changes: +PROHANCE 279.3MG/ML 15ML VIAL As Ordered ONE
== END ==
LOC: M RAD 08:33
PROVIDERS: ATTEND Orthopaedic Surgery
DX: M96.1 Postlaminectomy syndrome, not elsewhere classified (principal)
CPT/HCPCS: 72158; A9576

== ENCOUNTER 2023-09-14 16:11 | Observation (INO) | payer MEDICARE, OTHER ==
[~2023-09-14] VITALS: Ht 162.6 cm; Wt 56.0 kg
[~2023-09-14 16:11] MED LIST changes: -MIRT-62 PO; +MIRT-88 PO; -PROHANCE 279.3MG/ML 15ML VIAL As Ordered ONE
[2023-09-14] MEDS ORDERED: NS 1,000 ML IV ONE (19:10)
[2023-09-14] MEDS ORDERED: METOCLOPRAMIDE INJ 10MG/2ML VIAL IV ONE (19:10)
[2023-09-14 19:44] LABS: BASO % 0.4 % (0.0-1.0); EOS % 0.1 % (0.0-3.0); HEMATOCRIT 36.4 % (36.0-47.0); HEMOGLOBIN 12.3 g/dl (12.0-15.5); LYMPH # 0.8 10^3/uL (1.5-5.0); LYMPH % 8.9 % (24.0-44.0); MEAN CORPUSCULAR HEMOGLOBIN 29.1 pg (27.0-33.0); MEAN CORPUSCULAR HGB CONC 33.8 g/dl (32.0-36.5); MEAN CORPUSCULAR VOLUME 86.1 fl (80.0-96.0); MONO # 0.7 10^3/uL (0.0-0.8); MONO % 7.3 % (2.0-8.0); NEUTROPHILS # 7.5 10^3/uL (1.5-8.5); NEUTROPHILS % 83.1 % (36.0-66.0); PLATELET COUNT, AUTOMATED 370 10^3/uL (150-450); RED BLOOD COUNT 4.23 10^6/uL (4.00-5.40)
[2023-09-14 20:06] LABS: ALBUMIN 3.7 G/DL (3.2-5.2); BILIRUBIN,DIRECT 0.2 MG/DL (<0.4); BILIRUBIN,TOTAL 0.4 MG/DL (0.3-1.2); TOTAL PROTEIN 8.1 G/DL (5.7-8.2)
[2023-09-14] MEDS ORDERED: MORPHINE 4 MG/ML 1ML VIAL IV ONE (20:30)
[2023-09-14] MEDS ORDERED: INSULIN LISPRO (NovoLOG) PER UNIT SC SCH (21:00)
[2023-09-14 21:06] LABS: THYROID STIMULATING HORMONE 3.104 uIU/ML (0.55-4.78)
[2023-09-14] MEDS ORDERED: PANTOPRAZOLE 40MG VIAL IV ONE (22:20)
[2023-09-14] MEDS ORDERED: SODIUM CHLORIDE 0.9% 1000ML IV SCH (22:30)
[2023-09-14] MEDS ORDERED: GLUCOSE 4GM CHEW TABLET PO PRN (22:30)
[2023-09-14] MEDS ORDERED: GLUCAGON INJ 1MG VIAL SC PRN (22:30)
[2023-09-14] MEDS ORDERED: ONDANSETRON 4MG 2ML VIAL IV PRN (22:30)
[2023-09-14] MEDS ORDERED: DEXTROSE 50% 50ML SYRINGE IV PRN (22:30)
[2023-09-14 22:35] VITALS: BP 195/88; TEMP 98.6; O2SAT 97
[2023-09-14] MEDS ORDERED: PROM25TA12 PO (22:52)
[2023-09-14] MEDS ORDERED: PERCOCET PO (22:52)
[2023-09-14] MEDS ORDERED: CEFD300C42 PO (22:52)
[2023-09-14] MEDS ORDERED: NAPR-849 PO (22:52)
[2023-09-14] MEDS ORDERED: INSULANT SC (22:52)
[2023-09-14] MEDS ORDERED: HYDR-3490 PO (22:52)
[2023-09-14] MEDS ORDERED: MULTCHW12 PO (22:52)
[2023-09-14] MEDS ORDERED: DOCU100C16 PO (22:52)
[2023-09-14] MEDS ORDERED: SYNT25TA PO (22:54)
[2023-09-14] MEDS ORDERED: PANT40TA29 PO (22:54)
[2023-09-14] MEDS ORDERED: MIRT-11 PO (22:54)
[2023-09-14] MEDS ORDERED: HOME MED LIST COMPLETE! XX SCH (22:55)
[2023-09-14] MEDS: cefTRIAXone SOD 1 GM in D5W MINI-BAG PLUS 50 ML IV SCH (23:07)
[2023-09-15] MEDS: oxyCODONE 5MG TAB PO PRN ×2 (00:13→05:49)
[2023-09-15] MEDS ORDERED: NYSTATIN 500,000U/5ML SUSP UDC PO ONE (00:20)
[2023-09-15] MEDS: KCL 40MEQ in NS 1000ML 1,000 ML IV SCH ×3 (01:12→17:33)
[2023-09-15 05:30] VITALS: BP 182/73; TEMP 97.9; O2SAT 100
[2023-09-15] MEDS ORDERED: **hydrALAZINE** 50 MG TAB PO ONE (05:35)
[2023-09-15] MEDS: LEVOTHYROXINE 25MCG TABLET (0.025MG) PO SCH (05:54)
[2023-09-15] MEDS: INSULIN LISPRO (NovoLOG) PER UNIT SC SCH ×4 (07:52→17:55)
[2023-09-15] MEDS: ONDANSETRON 4MG 2ML VIAL IV SCH ×3 (07:53→18:39)
[2023-09-15] MEDS: NYSTATIN 500,000U/5ML SUSP UDC SS SCH ×4 (07:53→21:10)
[2023-09-15] MEDS: PANTOPRAZOLE 40MG VIAL IV SCH (07:53)
[2023-09-15 07:55] LABS: HEMATOCRIT 32.5 % (36.0-47.0); MEAN CORPUSCULAR HEMOGLOBIN 29.9 pg (27.0-33.0); MEAN CORPUSCULAR HGB CONC 33.8 g/dl (32.0-36.5); MEAN CORPUSCULAR VOLUME 88.3 fl (80.0-96.0); PLATELET COUNT, AUTOMATED 361 10^3/uL (150-450); RED BLOOD COUNT 3.68 10^6/uL (4.00-5.40); WHITE BLOOD COUNT 9.9 10^3/uL (4.0-10.0)
[2023-09-15 08:08] VITALS: BP 137/56
[2023-09-15 08:20] LABS: BLOOD UREA NITROGEN 11 MG/DL (9-23); CALCIUM LEVEL 7.7 MG/DL (8.5-10.1); CARBON DIOXIDE LEVEL 12 MMOL/L (20-31); CHLORIDE LEVEL 94 MMOL/L (98-107); CREATININE FOR GFR 0.45 MG/DL (0.55-1.30); GLOMERULAR FILTRATION RATE > 60.0 (>51); GLUCOSE, FASTING 318 MG/DL (60-100); MAGNESIUM LEVEL 1.6 MG/DL (1.8-2.4); POTASSIUM SERUM 3.6 MMOL/L (3.5-5.1); SODIUM LEVEL 129 MMOL/L (136-145)
[2023-09-15] MEDS ORDERED: MORPHINE 4 MG/ML 1ML VIAL IV PRN (08:20)
[2023-09-15] MEDS ORDERED: LEVEMIR (INSULIN DETEMIR) 1 UNITS/0.01ML SC SCH (09:00)
[2023-09-15] MEDS: ENOXAPARIN 40MG/0.4ML SYRINGE (J1650 PER 10MG) SC SCH (09:00)
[2023-09-15] MEDS: PERCOCET 5MG/325MG TAB PO PRN ×3 (09:09→21:32)
[2023-09-15 10:37] LABS: VENOUS BASE EXCESS -5.7 (-2.0-2.0); VENOUS HCO3 19.8 MMOL/L (23.0-27.0); VENOUS O2 SATURATION 74.9 % (60.0-80.0); VENOUS PARTIAL PRESSURE CO2 38.5 mmHg (38.0-50.0); VENOUS PARTIAL PRESSURE O2 43.1 mmHg (30.0-50.0); VENOUS PH 7.328 UNITS (7.330-7.430); VENOUS STANDARD HCO3 19.4 MMOL/L; VENOUS TOTAL CO2 20.9 MMOL/L (24.0-28.0)
[2023-09-15 10:45] LABS: BLOOD UREA NITROGEN 11 MG/DL (9-23); CALCIUM LEVEL 7.7 MG/DL (8.5-10.1); CARBON DIOXIDE LEVEL 20 MMOL/L (20-31); CHLORIDE LEVEL 95 MMOL/L (98-107); CREATININE FOR GFR 0.52 MG/DL (0.55-1.30); GLOMERULAR FILTRATION RATE > 60.0 (>51); GLUCOSE, FASTING 292 MG/DL (60-100); POTASSIUM SERUM 3.4 MMOL/L (3.5-5.1); SODIUM LEVEL 129 MMOL/L (136-145)
[2023-09-15] MEDS: MAG SULF 1GM/100ML (MAG RUN) 1 GM in IV 1 EA IV SCH ×4 (11:06→14:47)
[2023-09-15] MEDS ORDERED: INFLUENZA QUADRIVALENT PF VACCINE 0.5ML SYRINGE IM.IMMUN ONE (12:00)
[2023-09-15 15:51] LABS: BLOOD UREA NITROGEN 9 MG/DL (9-23); CARBON DIOXIDE LEVEL 25 MMOL/L (20-31); CHLORIDE LEVEL 95 MMOL/L (98-107); CREATININE FOR GFR 0.49 MG/DL (0.55-1.30); GLOMERULAR FILTRATION RATE > 60.0 (>51); GLUCOSE, FASTING 240 MG/DL (60-100); SODIUM LEVEL 129 MMOL/L (136-145)
[2023-09-15] MEDS ORDERED: POTASSIUM CHLORIDE 10MEQ SR TABLET PO ONE (15:55)
[2023-09-15] MEDS: METOCLOPRAMIDE INJ 10MG/2ML VIAL IV PRN (17:31)
[2023-09-15] MEDS: FAMOTIDINE 20 MG TAB PO SCH (18:51)
[2023-09-15] MEDS ORDERED: INSULIN LISPRO (NovoLOG) PER UNIT SC SCH (21:00)
[2023-09-15] MEDS ORDERED: MIRTAZAPINE 15 MG TAB PO SCH (21:00)
[2023-09-15] MEDS: cefTRIAXone SOD 1 GM in D5W MINI-BAG PLUS 50 ML IV SCH (21:10)
[2023-09-15] MEDS: LEVEMIR (INSULIN DETEMIR) 1 UNITS/0.01ML SC SCH (22:16)
[2023-09-16] MEDS: ONDANSETRON 4MG 2ML VIAL IV SCH ×3 (01:28→13:00)
[2023-09-16] MEDS: KCL 40MEQ in NS 1000ML 1,000 ML IV SCH ×2 (03:07→07:00)
[2023-09-16] MEDS: METOCLOPRAMIDE INJ 10MG/2ML VIAL IV PRN ×2 (03:20→11:33)
[2023-09-16] MEDS: PERCOCET 5MG/325MG TAB PO PRN ×2 (03:20→07:29)
[2023-09-16] MEDS: LEVOTHYROXINE 25MCG TABLET (0.025MG) PO SCH (06:08)
[2023-09-16 06:28] VITALS: BP 143/61; TEMP 97.9; O2SAT 95
[2023-09-16 06:33] LABS: HEMATOCRIT 33.2 % (36.0-47.0); HEMOGLOBIN 11.1 g/dl (12.0-15.5); MEAN CORPUSCULAR HGB CONC 33.4 g/dl (32.0-36.5); MEAN CORPUSCULAR VOLUME 86.7 fl (80.0-96.0); PLATELET COUNT, AUTOMATED 404 10^3/uL (150-450); RED BLOOD COUNT 3.83 10^6/uL (4.00-5.40); WHITE BLOOD COUNT 7.9 10^3/uL (4.0-10.0)
[2023-09-16 06:48] LABS: HEMOGLOBIN A1c 5.9 % (4.0-6.0)
[2023-09-16 07:00] LABS: BLOOD UREA NITROGEN 8 MG/DL (9-23); CALCIUM LEVEL 8.2 MG/DL (8.5-10.1); CARBON DIOXIDE LEVEL 25 MMOL/L (20-31); CHLORIDE LEVEL 102 MMOL/L (98-107); CREATININE FOR GFR 0.55 MG/DL (0.55-1.30); GLOMERULAR FILTRATION RATE > 60.0 (>51); GLUCOSE, FASTING 99 MG/DL (60-100); MAGNESIUM LEVEL 2.3 MG/DL (1.8-2.4); POTASSIUM SERUM 4.5 MMOL/L (3.5-5.1); SODIUM LEVEL 134 MMOL/L (136-145)
[2023-09-16] MEDS: INSULIN LISPRO (NovoLOG) PER UNIT SC SCH ×4 (07:16→12:00)
[2023-09-16] MEDS: PANTOPRAZOLE 40MG VIAL IV SCH (08:36)
[2023-09-16] MEDS: NYSTATIN 500,000U/5ML SUSP UDC SS SCH ×2 (08:36→12:37)
[2023-09-16] MEDS: LEVEMIR (INSULIN DETEMIR) 1 UNITS/0.01ML SC SCH (08:36)
[2023-09-16] MEDS: FAMOTIDINE 20 MG TAB PO SCH (08:37)
[2023-09-16] MEDS: ENOXAPARIN 40MG/0.4ML SYRINGE (J1650 PER 10MG) SC SCH (09:00)
[2023-09-16] MEDS ORDERED: PERC10TA26 PO (10:27)
[2023-09-16] MEDS ORDERED: SUCR1SS PO (10:54)
[2023-09-16] MEDS ORDERED: ONDA-83 PO (10:54)
== END 2023-09-16 13:45 | disposition home or self-care (01) ==
LOC: M ED 16:11 → M ED INP 16:12 → ENRESERVTM 21:02 → ENRESERVDT 21:02 → M MS5PR 22:35
PROVIDERS: ADMIT Internal Medicine; ATTEND Internal Medicine
DX: R11.2 Nausea with vomiting, unspecified (principal); E10.65 Type 1 diabetes mellitus with hyperglycemia; T39.391A Poisoning by other nonsteroidal anti-inflammatory drugs [NSAID], accidental (unintentional), initial encounter; K31.89 Other diseases of stomach and duodenum; E83.42 Hypomagnesemia; E87.6 Hypokalemia; M54.9 Dorsalgia, unspecified; G89.29 Other chronic pain; F11.20 Opioid dependence, uncomplicated; E03.9 Hypothyroidism, unspecified; I10 Essential (primary) hypertension; K21.9 Gastro-esophageal reflux disease without esophagitis; E10.42 Type 1 diabetes mellitus with diabetic polyneuropathy; F41.9 Anxiety disorder, unspecified; F32.A Depression, unspecified; N20.0 Calculus of kidney; E87.20 Acidosis, unspecified; R82.90 Unspecified abnormal findings in urine; R12 Heartburn; G82.20 Paraplegia, unspecified; Z99.3 Dependence on wheelchair; B37.0 Candidal stomatitis; Z79.899 Other long term (current) drug therapy; Z79.2 Long term (current) use of antibiotics; Z79.890 Hormone replacement therapy; Z79.4 Long term (current) use of insulin; Z79.1 Long term (current) use of non-steroidal anti-inflammatories (NSAID); Z23 Encounter for immunization
CPT/HCPCS: 36415; 80047; 80048; 80076; 81001; 82803; 83036; 83605; 83690; 83735; 83930; 83935; 84443; 85025; 85027; 87086; 87635; 90686; 96365; 96367; 96375; 96376; 97161; 99284; C9113; G0008; G0378; J0696; J1815; J2405; J2765; J3475

== ENCOUNTER → 2023-10-04 | Outpatient (REF) | payer MEDICARE, OTHER ==
[~2023-10-04] MED LIST changes: +CEFD300C42 PO; +DOCU100C16 PO; +HYDR-3490 PO; +MIRT-11 PO; +MULTCHW12 PO; +NAPR-849 PO; +ONDA-83 PO; +PERC10TA26 PO; +PROM25TA12 PO; +SUCR1SS PO; +SYNT25TA PO
[2023-10-04 18:59] LABS: BASO # 0.1 10^3/uL (0.0-0.2); BASO % 1.2 % (0.0-1.0); EOS # 0.2 10^3/uL (0.0-0.5); EOS % 2.5 % (0.0-3.0); HEMATOCRIT 33.6 % (36.0-47.0); HEMOGLOBIN 10.7 g/dl (12.0-15.5); LYMPH # 0.9 10^3/uL (1.5-5.0); LYMPH % 15.8 % (24.0-44.0); MEAN CORPUSCULAR HEMOGLOBIN 29.2 pg (27.0-33.0); MEAN CORPUSCULAR HGB CONC 31.8 g/dl (32.0-36.5); MEAN CORPUSCULAR VOLUME 91.8 fl (80.0-96.0); MONO # 0.5 10^3/uL (0.0-0.8); MONO % 7.7 % (2.0-8.0); NEUTROPHILS # 4.3 10^3/uL (1.5-8.5); NEUTROPHILS % 72.6 % (36.0-66.0); PLATELET COUNT, AUTOMATED 271 10^3/uL (150-450); RED BLOOD COUNT 3.66 10^6/uL (4.00-5.40)
[2023-10-04 19:13] LABS: ALBUMIN 3.4 G/DL (3.2-5.2); ALKALINE PHOSPHATASE 151 U/L (46-116); ALT/SGPT 46 U/L (7.0-40); AST/SGOT 34 U/L (<34); BILIRUBIN,TOTAL 0.2 MG/DL (0.3-1.2); BLOOD UREA NITROGEN 17 MG/DL (9-23); CALCIUM LEVEL 8.3 MG/DL (8.5-10.1); CARBON DIOXIDE LEVEL 27 MMOL/L (20-31); CHLORIDE LEVEL 98 MMOL/L (98-107); CREATININE FOR GFR 0.78 MG/DL (0.55-1.30); GLOMERULAR FILTRATION RATE > 60.0 (>51); GLUCOSE, FASTING 309 MG/DL (60-100); SODIUM LEVEL 134 MMOL/L (136-145)
[2023-10-04 19:44] LABS: ERYTHROCYTE SEDIMENTATION RATE 57 mm/hr (0-30)
== END ==
LOC: M LAB REF 17:12
PROVIDERS: ATTEND Internal Medicine Infectious Disease
DX: M46.26 Osteomyelitis of vertebra, lumbar region (principal); Z79.2 Long term (current) use of antibiotics

== ENCOUNTER → 2023-10-10 | Outpatient (REF) | payer MEDICARE, OTHER ==
[2023-10-10 13:48] LABS: BASO # 0.1 10^3/uL (0.0-0.2); BASO % 1.1 % (0.0-1.0); EOS # 0.3 10^3/uL (0.0-0.5); EOS % 3.4 % (0.0-3.0); HEMOGLOBIN 11.2 g/dl (12.0-15.5); LYMPH # 1.3 10^3/uL (1.5-5.0); LYMPH % 18.1 % (24.0-44.0); MEAN CORPUSCULAR HEMOGLOBIN 28.9 pg (27.0-33.0); MEAN CORPUSCULAR VOLUME 90.4 fl (80.0-96.0); MONO # 0.5 10^3/uL (0.0-0.8); MONO % 6.8 % (2.0-8.0); NEUTROPHILS # 5.2 10^3/uL (1.5-8.5); NEUTROPHILS % 70.3 % (36.0-66.0); PLATELET COUNT, AUTOMATED 377 10^3/uL (150-450); RED BLOOD COUNT 3.87 10^6/uL (4.00-5.40); WHITE BLOOD COUNT 7.4 10^3/uL (4.0-10.0)
[2023-10-10 14:03] LABS: ERYTHROCYTE SEDIMENTATION RATE 98 mm/hr (0-30)
[2023-10-10 14:14] LABS: ALBUMIN 3.4 G/DL (3.2-5.2); ALKALINE PHOSPHATASE 144 U/L (46-116); ALT/SGPT 36 U/L (7.0-40); AST/SGOT 28 U/L (<34); BILIRUBIN,TOTAL 0.2 MG/DL (0.3-1.2); BLOOD UREA NITROGEN 19 MG/DL (9-23); CALCIUM LEVEL 8.7 MG/DL (8.5-10.1); CARBON DIOXIDE LEVEL 27 MMOL/L (20-31); CHLORIDE LEVEL 102 MMOL/L (98-107); GLOMERULAR FILTRATION RATE > 60.0 (>51); GLUCOSE, FASTING 211 MG/DL (60-100); POTASSIUM SERUM 4.8 MMOL/L (3.5-5.1); SODIUM LEVEL 136 MMOL/L (136-145); TOTAL PROTEIN 7.9 G/DL (5.7-8.2)
== END ==
LOC: M LAB REF 13:28
PROVIDERS: ATTEND Internal Medicine Infectious Disease
DX: M46.26 Osteomyelitis of vertebra, lumbar region (principal); M46.46 Discitis, unspecified, lumbar region; Z79.2 Long term (current) use of antibiotics

== ENCOUNTER → 2024-02-12 | Outpatient (CLI) | payer MEDICARE, OTHER ==
[~2024-02-12] MED LIST changes: +CEFD1CAP9 PO; -CEFD300C42 PO
[2024-02-12 13:53] LABS: BASO # 0.1 10^3/uL (0.0-0.2); BASO % 1.7 % (0.0-1.0); EOS # 0.3 10^3/uL (0.0-0.5); EOS % 4.5 % (0.0-3.0); HEMATOCRIT 39.6 % (36.0-47.0); HEMOGLOBIN 12.9 g/dl (12.0-15.5); LYMPH # 1.5 10^3/uL (1.5-5.0); LYMPH % 24.7 % (24.0-44.0); MEAN CORPUSCULAR HEMOGLOBIN 30.6 pg (27.0-33.0); MEAN CORPUSCULAR HGB CONC 32.6 g/dl (32.0-36.5); MEAN CORPUSCULAR VOLUME 94.1 fl (80.0-96.0); MONO # 0.4 10^3/uL (0.0-0.8); MONO % 7.2 % (2.0-8.0); NEUTROPHILS # 3.7 10^3/uL (1.5-8.5); NEUTROPHILS % 61.7 % (36.0-66.0); PLATELET COUNT, AUTOMATED 234 10^3/uL (150-450); RED BLOOD COUNT 4.21 10^6/uL (4.00-5.40)
[2024-02-12 14:06] LABS: ERYTHROCYTE SEDIMENTATION RATE 66 mm/hr (0-30)
[2024-02-12 14:23] LABS: HEMOGLOBIN A1c 7.4 % (4.0-6.0)
[2024-02-12 14:24] LABS: C REACTIVE PROTEIN QUANTITATIV < 0.40 MG/DL (<1.0)
[2024-02-12 14:25] LABS: ALBUMIN 3.7 G/DL (3.2-5.2); ALKALINE PHOSPHATASE 134 U/L (46-116); ALT/SGPT 59 U/L (7.0-40); AST/SGOT 45 U/L (<34); BILIRUBIN,TOTAL 0.2 MG/DL (0.3-1.2); BLOOD UREA NITROGEN 22 MG/DL (9-23); CALCIUM LEVEL 8.8 MG/DL (8.5-10.1); CARBON DIOXIDE LEVEL 29 MMOL/L (20-31); CHLORIDE LEVEL 99 MMOL/L (98-107); CHOLESTEROL LEVEL 186 MG/DL (<200); CHOLESTEROL RISK RATIO 2.91 (<5); CREATININE FOR GFR 0.68 MG/DL (0.55-1.30); GLOMERULAR FILTRATION RATE > 60.0 (>51); GLUCOSE, FASTING 125 MG/DL (60-100); HDL CHOLESTEROL 63.8 MG/DL (>40); NON-HDL-C 122.2 MG/DL; POTASSIUM SERUM 4.1 MMOL/L (3.5-5.1); SODIUM LEVEL 134 MMOL/L (136-145); TOTAL PROTEIN 8.1 G/DL (5.7-8.2); TRIGLYCERIDES LEVEL 336 MG/DL (<150)
[2024-02-12 14:26] LABS: TOTAL 25(OH) VITAMIN D 6.7 NG/ML (20.0-100.0)
== END ==
LOC: M LAB 13:22
PROVIDERS: ATTEND Physician Assistant Medical
DX: Z13.6 Encounter for screening for cardiovascular disorders (principal)

== ENCOUNTER → 2024-06-24 | Outpatient (CLI) | payer MEDICARE ==
[~2024-06-24] MED LIST changes: -MIRT-60 PO; +MIRT-89 PO; +ONDA-284 SL; -ONDA8TAB8 SL
[2024-06-24 16:24] LABS: BASO # 0.1 10^3/uL (0.0-0.2); BASO % 1.4 % (0.0-1.0); EOS # 0.2 10^3/uL (0.0-0.5); EOS % 3.5 % (0.0-3.0); HEMATOCRIT 37.4 % (36.0-47.0); HEMOGLOBIN 12.5 g/dl (12.0-15.5); LYMPH % 17.8 % (24.0-44.0); MEAN CORPUSCULAR HEMOGLOBIN 31.6 pg (27.0-33.0); MEAN CORPUSCULAR HGB CONC 33.4 g/dl (32.0-36.5); MEAN CORPUSCULAR VOLUME 94.4 fl (80.0-96.0); MONO # 0.6 10^3/uL (0.0-0.8); MONO % 9.6 % (2.0-8.0); NEUTROPHILS # 3.9 10^3/uL (1.5-8.5); NEUTROPHILS % 67.5 % (36.0-66.0); PLATELET COUNT, AUTOMATED 272 10^3/uL (150-450); RED BLOOD COUNT 3.96 10^6/uL (4.00-5.40); WHITE BLOOD COUNT 5.7 10^3/uL (4.0-10.0)
[2024-06-24 16:42] LABS: ALBUMIN 3.6 G/DL (3.2-5.2); ALKALINE PHOSPHATASE 104 U/L (46-116); ALT/SGPT 57 U/L (7.0-40); AST/SGOT 43 U/L (<34); BILIRUBIN,TOTAL 0.4 MG/DL (0.3-1.2); BLOOD UREA NITROGEN 10 MG/DL (9-23); CALCIUM LEVEL 8.9 MG/DL (8.5-10.1); CARBON DIOXIDE LEVEL 28 MMOL/L (20-31); CHLORIDE LEVEL 103 MMOL/L (98-107); CHOLESTEROL LEVEL 140 MG/DL (<200); CHOLESTEROL RISK RATIO 2.65 (<5); CREATININE FOR GFR 0.53 MG/DL (0.55-1.30); GLOMERULAR FILTRATION RATE > 60.0 (>51); GLUCOSE, FASTING 99 MG/DL (60-100); HDL CHOLESTEROL 52.7 MG/DL (>40); LDL CHOLESTEROL 65.5 MG/DL (<100); NON-HDL-C 87.3 MG/DL; SODIUM LEVEL 135 MMOL/L (136-145); TOTAL PROTEIN 7.8 G/DL (5.7-8.2); TRIGLYCERIDES LEVEL 109 MG/DL (<150)
[2024-06-24 16:44] LABS: TOTAL 25(OH) VITAMIN D 31.7 NG/ML (20.0-100.0)
[2024-06-24 16:58] LABS: ERYTHROCYTE SEDIMENTATION RATE 42 mm/hr (0-30)
[2024-06-24 17:11] LABS: HEMOGLOBIN A1c 7.4 % (4.0-6.0)
== END ==
LOC: M LAB 13:55
PROVIDERS: ATTEND Physician Assistant Medical
DX: Z13.6 Encounter for screening for cardiovascular disorders (principal); E11.9 Type 2 diabetes mellitus without complications; E55.9 Vitamin D deficiency, unspecified; E78.2 Mixed hyperlipidemia; Z98.1 Arthrodesis status

== ENCOUNTER → 2025-03-03 | Outpatient (CLI) | payer MEDICARE, MEDICAID ==
[~2025-03-03] MED LIST changes: -CYCL5TAB PO; +CYCL5TAB4 PO; +GABA-1172; +GABA-1172 PO; +GABA-1490 PO; -GABA-282; -GABA-282 PO; -GABA600T4 PO
[2025-03-03 13:47] LABS: BASO # 0.1 10^3/uL (0.0-0.2); BASO % 1.6 % (0.0-1.0); EOS # 0.3 10^3/uL (0.0-0.5); EOS % 4.4 % (0.0-3.0); HEMATOCRIT 38.6 % (36.0-47.0); LYMPH # 1.4 10^3/uL (1.5-5.0); LYMPH % 22.6 % (24.0-44.0); MEAN CORPUSCULAR HEMOGLOBIN 31.2 pg (27.0-33.0); MEAN CORPUSCULAR HGB CONC 33.7 g/dl (32.0-36.5); MEAN CORPUSCULAR VOLUME 92.6 fl (80.0-96.0); MONO # 0.4 10^3/uL (0.0-0.8); NEUTROPHILS # 4.2 10^3/uL (1.5-8.5); NEUTROPHILS % 65.2 % (36.0-66.0); PLATELET COUNT, AUTOMATED 237 10^3/uL (150-450); RED BLOOD COUNT 4.17 10^6/uL (4.00-5.40); WHITE BLOOD COUNT 6.4 10^3/uL (4.0-10.0)
[2025-03-03 14:19] LABS: THYROID STIMULATING HORMONE 4.557 uIU/ML (0.55-4.78)
[2025-03-03 14:20] LABS: ALBUMIN 3.5 G/DL (3.2-5.2); ALKALINE PHOSPHATASE 91 U/L (35-104); ALT/SGPT 32 U/L (7.0-40); AST/SGOT 22 U/L (<34); BILIRUBIN,TOTAL 0.3 MG/DL (0.3-1.2); BLOOD UREA NITROGEN 15 MG/DL (9-23); CALCIUM LEVEL 8.6 MG/DL (8.5-10.1); CARBON DIOXIDE LEVEL 27 MMOL/L (20-31); CHLORIDE LEVEL 102 MMOL/L (98-107); CHOLESTEROL LEVEL 142 MG/DL (<200); CHOLESTEROL RISK RATIO 2.59 (<5); CREATININE FOR GFR 0.59 MG/DL (0.55-1.30); GLOMERULAR FILTRATION RATE > 90.0 (>51); GLUCOSE, FASTING 374 MG/DL (60-100); HDL CHOLESTEROL 54.8 MG/DL (>40); LDL CHOLESTEROL 68.8 MG/DL (<100); NON-HDL-C 87.2 MG/DL; POTASSIUM SERUM 4.1 MMOL/L (3.5-5.1); SODIUM LEVEL 137 MMOL/L (136-145); TOTAL PROTEIN 7.3 G/DL (5.7-8.2); TRIGLYCERIDES LEVEL 92 MG/DL (<150)
== END ==
LOC: M LAB 13:14
PROVIDERS: ATTEND Physician Assistant Medical
DX: F17.200 Nicotine dependence, unspecified, uncomplicated (principal); E78.00 Pure hypercholesterolemia, unspecified